=== PATIENT | male | born 1965 | race Caucasian/White ===

== ENCOUNTER 2025-01-29 23:25 | Emergency (ER) | payer MEDICARE, SELFPAY ==
[2025-01-29 23:30] VITALS: BP 186/107; PULSE 93; TEMP 36.8; O2SAT 98; BMI 22.2
[2025-01-29 23:32] VITALS: BP 186/107; O2SAT 98
--- NOTE | 2025-01-29 23:37 | ED_ITS ---
HPI HPI - General Adult General Chief complaint: Urogenital-Male Stated complaint: UTI,VOMMITING Time Seen by Provider: 01/29/25 23:31 Source: patient and family Mode of arrival: Wheelchair Limitations: no limitations History of Present Illness HPI narrative: 59-year-old male presents to the emergency department for possible UTI. He had been treated for a UTI about 10 days ago with Cipro and finished that antibiotic. He had some vomiting which is now resolved and now he states he is dribbling a bit. No fever or diarrhea. Related Data Home Medications ?Medication ?Instructions ?Recorded ?Confirmed No Known Home Medications 01/29/25 01/29/25 Allergies Allergy/AdvReac Type Severity Reaction Status Date / Time acetaminophen (From [place]) Allergy Unknown Verified 01/29/25 23:34 hydrocodone (From [place]) Allergy Unknown Verified 01/29/25 23:34 Opioid HPI Opioid Management Most Recent Opioid Data: Last Pain Scale 10 01/30/25 00:58 01/30/25 Last MAR Pain Assessment 01/30/25 00:58 Review of Systems ROS Narrative A ten point review of systems is negative except as noted above. PFSH PFSH Social History Little interest or pleasure in doing things: not at all Feeling down, depressed, or hopeless: not at all Exam Narrative Exam Narrative: Nurses note and vital signs reviewed and patient is not hypoxic. General: The patient appears well and in no apparent distress. Patient is resting comfortably on cart. Skin: Warm, dry, no pallor noted. There is no rash noted. Head: Normocephalic, atraumatic Eye: Normal conjunctiva, no drainage Ears, Nose, Mouth, and Throat: oral mucosa is slightly dry. Nares patent. Cardiovascular: Regular Rate and Rhythm, not tachycardic Respiratory: Patient is in no distress, no accessory muscle use, lungs are clear to auscultation, no wheezing, rales or rhonchi Back: non-tender GI: Soft and nontender Musculoskeletal: The patient has no evidence of calf tenderness, no pitting edema, symmetrical pulses noted bilaterally Neurological: A&O, normal speech Psychiatric: Cooperative Constitutional Vital Signs, click to edit/add: Last Vital Signs Temp 98.2 F 01/29/25 23:30 Pulse 93 H 01/29/25 23:30 Resp 16 01/29/25 23:30 BP 188/99 H 01/30/25 00:03 Pulse Ox 96 01/30/25 00:03 Course Vital Signs Vital signs: Vital Signs Temperature 98.2 F 01/29/25 23:30 Pulse Rate 93 H 01/29/25 23:30 Respiratory Rate 16 01/29/25 23:30 Blood Pressure 186/107 H 01/29/25 23:30 Pulse Oximetry 98 01/29/25 23:30 Temperature 98.2 F 01/29/25 23:30 Pulse Rate 93 H 01/29/25 23:30 Respiratory Rate 16 01/29/25 23:30 Blood Pressure 188/99 H 01/30/25 00:03 Pulse Oximetry 96 01/30/25 00:03 Medical Decision Making MDM Narrative Medical decision making narrative: The patient has a creatinine of over 15 and a potassium of 6.9. He was given IV fluids as well as D50 and insulin and Kayexalate. Hummel catheter was inserted and 1300 mL of urine was extracted. The possibility of obstructive state is entertained. CT scan of the abdomen is pending. Findings are discussed with the patient and his [id number]. They are requesting transfer to [facility] in [place]. I have spoken to Dr. Hubbard and Dr. France at [facility] and he is excepted by both of them. He is stable and agreeable for transfer. Differential Diagnosis Differential Diagnosis: UTI, acute kidney injury, hyperkalemia Lab Data Lab results reviewed: Yes I reviewed the patient's lab results Labs: Lab Results 01/29/25 01/30/25 Range/Units 23:40 00:30 WBC 9.2 (4.0-11.0) 10^3/uL RBC 3.21 L (4.70-6.10) 10^6/uL Hgb 8.2 L (14.0-18.0) g/dL Hct 25.0 L (42.0-54.0) % MCV 77.9 L (80.0-94.0) fL MCH 25.5 L (25.9-34.0) pg MCHC 32.8 (29.9-35.2) g/dL RDW 15.0 (11.0-15.0) % Plt Count 317 (150-450) 10^3/uL MPV 8.7 L (9.5-13.5) fL Neut % (Auto) 77.8 H (43.0-75.0) % Lymph % (Auto) 11.7 L (20.5-60.0) % [place] % (Auto) 5.5 (1.7-12.0) % Eos % (Auto) 3.6 (0.9-7.0) % Baso % (Auto) 1.2 (0.2-2.0) % Neut # (Auto) 7.2 H (1.4-6.5) 10^3/uL Lymph # (Auto) 1.1 L (1.2-3.8) 10^3/uL [place] # (Auto) 0.5 (0.3-0.8) 10^3/uL Eos # (Auto) 0.3 (0.0-0.7) 10^3/uL Baso # (Auto) 0.1 (0.0-0.1) 10^3/uL Abs Immat Gran (auto) 0.02 (0.00-0.03) 10^3/uL Imm/Tot Granulo (auto) 0.2 (0.0-0.5) % Sodium 135 L (136-145) mmol/L Potassium 6.9 H* (3.5-5.1) mmol/L Chloride 103 (98-107) mmol/L Carbon Dioxide 13.7 L (21.0-32.0) mmol/L Anion Gap 25.2 BUN 124.0 H* (7.0-18.0) mg/dL Creatinine 15.34 H* (0.70-1.30) mg/dL Est GFR ( Amer) 4 L (>=60 mL/min/1.73m^2) Est GFR (Non-Af Amer) 3 L (>=60 mL/min/1.73m^2) BUN/Creatinine Ratio 8.1 Glucose 125 H (74-106) mg/dL Calcium 8.1 L (8.5-10.1) mg/dL Urine Color Lt. yellow (YELLOW) Urine Clarity Clear (CLEAR) Urine pH 6.0 (5.0-9.0) Ur Specific [place] 1.010 (1.005-1.025) Urine Protein Trace (NEG/TRACE) mg/dL Urine Glucose (UA) Negative (NEGATIVE) mg/dL Urine Ketones Negative (NEGATIVE) mg/dL Urine Occult Blood Small A (NEGATIVE) Urine Nitrite Negative (NEGATIVE) Urine Bilirubin Negative (NEGATIVE) Urine Urobilinogen 0.2 (0.2-1.0) EU/dL Ur Leukocyte Esterase Small A (NEGATIVE) Urine RBC 0-2 (0-2) #/HPF Urine WBC 2-5 A (NONE SEEN) #/HPF Ur Squamous Epith Cells None seen (NONE/RARE) #/LPF Urine Crystals None seen (None Seen) #/HPF Urine Bacteria Trace A (NONE SEEN) #/HPF Urine Casts None seen (NONE SEEN) #/LPF Urine Mucus None seen (NONE SEEN) Ur Culture Indicated? No ECG Data Attestation: I personally reviewed and interpreted this ECG as follows: (EKG on my interpretation shows normal sinus rhythm with a rate of 89. The QRS is not widened and he does not have peaked T waves.) Critical Care Time Critical Care Time Critical Care Time: Yes Total Critical Care Time: 95 Attestation: Due to the high probability of sudden and clinically significant deterioration in the patient's condition he/she required the highest level of my preparedness to intervene urgently I provided critical care time including documentation time, medication orders and management, reevaluation, vital sign assessment, ordering and reviewing of lab tests, ordering and reviewing of x-ray studies, and admission orders. Aggregate critical care time is 95 minutes including only time during which I was engaged in work directly related to his/her care and did not include time spent treating other patients simultaneously. Discharge Plan Discharge Chief Complaint: Urogenital-Male Clinical Impression: Acute renal failure, Hyperkalemia Patient Disposition: [facility] Time of Disposition Decision: 00:49 Discharge Location: [facility] Condition: Critical Mode of Transportation: EMS
[2025-01-29 23:40] VITALS: O2SAT 98
[2025-01-29 23:49] LABS: Basophils Absolute Auto 0.1 10^3/uL (0.0-0.1); Basophils Percent Auto 1.2 % (0.2-2.0); Eosinophils Absolute Auto 0.3 10^3/uL (0.0-0.7); Eosinophils Percent Auto 3.6 % (0.9-7.0); Hemoglobin 8.2 g/dL (14.0-18.0); Immature Granulocytes Abs Auto 0.02 10^3/uL (0.00-0.03); Immature Granulocytes Pct Auto 0.2 % (0.0-0.5); Lymphocytes Absolute Auto 1.1 10^3/uL (1.2-3.8); Lymphocytes Percent Auto 11.7 % (20.5-60.0); Mean Corpuscular HGB Conc 32.8 g/dL (29.9-35.2); Mean Corpuscular Hemoglobin 25.5 pg (25.9-34.0); Mean Corpuscular Volume 77.9 fL (80.0-94.0); Mean Platelet Volume 8.7 fL (9.5-13.5); Monocytes Absolute Auto 0.5 10^3/uL (0.3-0.8); Monocytes Percent Auto 5.5 % (1.7-12.0); Neutrophils Absolute Auto 7.2 10^3/uL (1.4-6.5); Neutrophils Percent Auto 77.8 % (43.0-75.0); Platelet Count 317 10^3/uL (150-450); Red Blood Count 3.21 10^6/uL (4.70-6.10); White Blood Count 9.2 10^3/uL (4.0-11.0)
[2025-01-29 23:50] VITALS: O2SAT 96
[2025-01-29] MEDS: 0.9 % SODIUM CHLORIDE 1,000 ML 1000 ML IV (23:54)
[2025-01-30] VITALS (17 sets, daily range): BP systolic 184–212; BP diastolic 99–120; PULSE 88–96; TEMP 36.7; O2SAT 84–98
[2025-01-30 00:02] LABS: Anion Gap 25.2; BUN Creatinine Ratio 8.1; Calcium 8.1 mg/dL (8.5-10.1); Carbon Dioxide 13.7 mmol/L (21.0-32.0); Chloride 103 mmol/L (98-107); Estimated GFR (African America 4 (>=60 mL/min/1.73m^2); Estimated GFR (Non-African Ame 3 (>=60 mL/min/1.73m^2); Glucose 125 mg/dL (74-106); Sodium 135 mmol/L (136-145)
[2025-01-30 00:04] LABS: Potassium 6.9 mmol/L (3.5-5.1)
--- NOTE | 2025-01-30 00:15 | ECG_ITS ---
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 Measurements Intervals [place] Rate: 89 P: 60 ID: [id number] QRS: 53 QRSD: 92 T: 73 QT: 354 QTc: 401 Interpretive Statements 1100 Sinus rhythm 9110 normal ECG Compared to ECG 01/23/2023 19:17:35 Sinus tachycardia no longer present Electronically Signed On 01-30-2025 19:08:35 EDT by TIM ANGULO M.D.
[2025-01-30] MEDS: DEXTROSE 50 %-WATER 25 GM/50 ML SYRINGE IV (00:45)
[2025-01-30] MEDS: INSULIN REGULAR, HUMAN (100 UNIT/ML) 10 ML MDV 10 UNIT IV (00:45)
[2025-01-30 00:47] LABS: Bilirubin Urine NEGATIVE (NEGATIVE); Blood Urine SMALL (NEGATIVE); Clarity Urine CLEAR (CLEAR); Color Urine LT. YELLOW (YELLOW); Glucose Urine UA NEGATIVE (NEGATIVE); Ketones Urine NEGATIVE (NEGATIVE); Leukocyte Esterase Urine SMALL (NEGATIVE); Nitrite Urine NEGATIVE (NEGATIVE); Protein Urine TRACE mg/dL (NEG/TRACE); Urobilinogen Urine 0.2 EU/dL (0.2-1.0)
[2025-01-30] MEDS: SODIUM POLYSTYRENE SULFON 15 GM/60 ML ORAL.SUSP KAYEXALATE 30 GM PO (00:49)
[2025-01-30 00:53] LABS: Bacteria Urine TRACE #/HPF (NONE SEEN); Cast Seen? NONE SEEN #/LPF (NONE SEEN); Crystals Seen? None Seen #/HPF (None Seen); Mucus Urine NONE SEEN (NONE SEEN); RBC Urine 0-2 #/HPF (0-2); Squamous Epithelial Cell Urine NONE SEEN #/LPF (NONE/RARE); Urine Culture Indicated NO
[2025-01-30] MEDS: MORPHINE SULFATE 4 MG/ML VIAL IV ×2 (00:58→01:54)
[2025-01-30] MEDS: 0.9 % SODIUM CHLORIDE 1,000 ML 200 ML IV (01:21)
--- NOTE | 2025-01-30 02:26 | PC.NURSE ---
[employer] crew and i gave patient report and this patient's paper work to them. this patient's daughter in law forgot to take this patient's shoes. i placed these shoe in a bag and gave them to the ems crew. the daughter in law too all other patient clothing and items with her
[2025-01-30] MEDS: HYDROMORPHONE HCL 1 MG/ML CARTRIDGE IV (02:38)
--- NOTE | 2025-01-30 02:39 | PC.NURSE ---
I called [facility] [phone] and spoke with Libia CHERY and I gave her patient report( patient will be going to room 3011.
== END 2025-01-30 02:41 | disposition short-term general hospital (02) ==
PROVIDERS: Emergency Provider Emergency Medicine
DX: N17.9 Acute kidney failure, unspecified (principal); E87.5 Hyperkalemia; N13.2 Hydronephrosis with renal and ureteral calculous obstruction; Z87.440 Personal history of urinary (tract) infections
CPT/HCPCS: 36415; 74176; 80048; 81001; 85025; 93005; 96361; 96374; 96375; 96376; 99285; J1171; J1817; J2270

== ENCOUNTER 2025-04-05 12:23 | Emergency (ER) | payer MEDICARE, SELFPAY ==
--- OUTSIDE RECORDS SUMMARY | 2025-01-30 04:04 | XMS_ITS ---
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 Role Phone NAINA PUCKETT Referring Unavailable FRAN LEIGH Admitting Unavailable RICO JARRELL Consulting Unavailable OSCAR MCDONOUGH Attending Unavailable EVELINA DAVILA Primary Care Unavailable PROBLEMS DATE TYPE CONDITION / CODE [facility] Admitting diagnosis Acute kidney failure, unspecified / N17.9(ICD-10) OSCAR MCDONOUGH Active [facility] PROCEDURES No Procedure Records Found RESULTS IR ANTEGRADE PYELOGRAM Observed: 025 9:21 AM Status: F Source: [facility] PROCEDURE: RIGHT NEPHROSTOGRAM WITH NEPHROSTOMY TUBE REMOVAL 02/05/2025 HISTORY: ORDERING SYSTEM PROVIDED HISTORY: Rt nephrostogram w/removal of nephrostomy catheter TECHNOLOGIST PROVIDED HISTORY: Rt nephrostogram w/removal of nephrostomy catheter TECHNIQUE: RIGHT NEPHROSTOGRAM WITH NEPHROSTOMY TUBE REMOVAL CONTRAST: Omnipaque 240 SEDATION: None FLUOROSCOPY DOSE AND TYPE: Radiation Exposure Index: DAP cGy*cm2, 403.94 DESCRIPTION OF PROCEDURE AND FINDINGS: Informed consent was obtained after a detailed explanation of the procedure including risks, benefits, and alternatives. [place] protocol was observed. Sterile gowns, masks, hats and gloves utilized for maximal sterile barrier. Tip Length Checker view shows a right nephrostomy tube in place as well as a right ureteral stent. Nephrostomy tube site was prepped and draped in standard sterile fashion. The right nephrostomy was injected under fluoroscopy and opacifies the collecting system and ureter. Contrast flows into the bladder. The ureteral stent appears patent. The nephrostomy tube was then cut and removed over a guidewire uneventfully. Sterile gauze dressing was applied. There are no immediate complications. The patient left the department in stable condition. EBL: Minimal IMPRESSION: Right nephrostogram shows a patent right ureteral stent. Nephrostomy tube was removed uneventfully. Interpreted by: Esau Egan MD Signed by: Esau Egan MD 02/06/25 Final result GLUCOSE,WHOLE BLOOD Collected: 02/07/20 8:02 AM Status: F Source: [facility] TYPE CODE TESTS RESULT OUT OF RANGE REFERENCE UNITS LAB FGLU(LOINC) Glucose,Whol e Blood 88 75-110 mg/dL BASIC METABOLIC PROF Collected: 02/06/2025 6:53 AM S tatus: F Source: [facility] TYPE CODE TESTS RESULT OUT OF RANGE REFERENCE UNITS LAB NA(LOINC) NA (Sodium) 136 136-145 mmol/L LAB K(LOINC) K (Potassium) 5.0 3.7-5.3 mmol/L LAB CL(LOINC) Chloride 106 98-107 mmol/L LAB HCO(LOINC) CO2 20 20-31 mmol/L LAB GAP(LOINC) Anion Gap 10 9-16 mmol/L LAB GLU(LOINC) Glucose 99 74-99 mg/dL LAB BUN(LOINC) BUN (Urea N) 31 High 8-23 mg/dL LAB CRE(LOINC) Creatinine 1.8 High 0.7-1.2 mg/dL LAB EGFR(LOINC) eGFR 42 Low >60 mL/min/1. 73m2 Result Comment: These results are not intended for use in patients <18 years of age. eGFR results are calculated without a race factor using the 2020 CKD-EPI equation. Careful clinical correlation is recommended, particularly when comparing to results calculated using previous equations. The CKD-EPI equation is less accurate in patients with extremes of muscle mass, extra-renal metabolism of creatine, excessive creatine ingestion, or following therapy that affects renal tubular secretion. LAB CA(LOINC) Calcium 8.4 Low 8.6-10.4 mg/dL Performed By: #### BMP #### [employer] [address] [place] [address] Biomedical Engineer: Collin Augustin MD GLUCOSE,WHOLE BLOOD Collected: 02/06/20 8:04 PM Status: F Source: [facility] TYPE CODE TESTS RESULT OUT OF RANGE REFERENCE UNITS LAB FGLU(LOINC) Glucose,Whol e Blood 106 75-110 mg/dL IR GUIDED NEPHROSTOMY CATH PLACEMENT RIGHT Observed: 02/05/2025 6:26 PM Status: F Source: [facility] PROCEDURE: PERCUTANEOUS ANTEGRADE PYELOGRAM RIGHT PERCUTANEOUS NEPHROSTOMY TUBE PLACEMENT WITH ANTEGRADE URETERAL STENT PLACEMENT ULTRASOUND GUIDANCE 02/04/2025 HISTORY: ORDERING SYSTEM PROVIDED HISTORY: Right nephrostomy tube placement, obstructing stone. TECHNOLOGIST PROVIDED HISTORY: Right nephrostomy tube placement, obstructing stone. Please place ureteral stent if possible. SEDATION: None CONTRAST: Omnipaque 240 FLUOROSCOPY DOSE AND TYPE OR TIME AND EXPOSURES: 6 minutes; DAP 1004 cGy cm2 TECHNIQUE AND FINDINGS Informed consent was obtained following detailed description of the procedure including risks, benefits, and alternatives. [place] protocol was followed. Patient is on intravenous antibiotics. The patient's back right flank was prepped and draped in sterile fashion and local anesthesia was achieved with lidocaine. An Accustick needle was advanced into a posterior lower pole calyx using ultrasound and fluoroscopic guidance. Urine was aspirated and a small amount of contrast injected opacifying a dilated collecting system and visualized ureter. 018 guidewire was advanced through the needle. Mini access kit transitional dilator was placed over the guidewire. Through the outer 6 Israeli cannula an angled catheter and Glidewire were advanced and negotiated into the ureter. Guidewire and catheter were directed into the bladder. Small amount of contrast injected verifying catheter tip in the bladder. There is a Hummel catheter in place. An Amplatz guidewire was placed through the catheter. An 8 Israeli by 24 cm double-J ureteral stent was deployed with the distal loop formed in the bladder. The proximal loop was formed in the renal pelvis. Small amount of contrast injected verifying appropriate catheter positioning and patency. An 8 Israeli nephrostomy tube was placed over the guidewire and left in place for access. As internal drainage was established the tube was capped externally. The catheter was sutured to the skin and secured in place with a sterile gauze dressing. The patient will be scheduled for a nephrostogram with possible nephrostomy tube removal. There are no immediate complications. The patient left the department in stable condition. EBL: Less than 5 mL. IMPRESSION: Successful percutaneous right nephrostomy tube placement. Successful antegrade right ureteral stent placement; 8 Israeli by 24 cm double-J stent was deployed. Interpreted by: Esau Egan MD Signed by: sEau Egan MD 02/05/25 Final result HGB/HCT Collected: 5:42 PM Status: F Source: [facility] TYPE CODE TESTS RESULT OUT OF RANGE REFERENCE UNITS LAB HGB(LOINC) Hemoglobin 8.2 Low 13.0-17.0 g/dL LAB HCT(LOINC) Hematocrit 27.9 Low 40.7-50.3 % Performed By: #### #### [facility] [employer] [address] [place], [place] [phone] Biomedical Engineer: Collin Augustin MD GLUCOSE,WHOLE BLOOD Collected: 02/06/20 3:55 PM Status: F Source: [facility] TYPE CODE TESTS RESULT OUT OF RANGE REFERENCE UNITS LAB FGLU(LOINC) Glucose,Whol e Blood 107 75-110 mg/dL BASIC METABOLIC PROF Collected: 02/05/2025 3:39 PM S tatus: F Source: [facility] TYPE CODE TESTS RESULT OUT OF RANGE REFERENCE UNITS LAB NA(LOINC) NA (Sodium) 135 Low 136-145 mmol/L LAB K(LOINC) K (Potassium) 4.8 3.7-5.3 mmol/L LAB CL(LOINC) Chloride 106 98-107 mmol/L LAB HCO(LOINC) CO2 18 Low 20-31 mmol/L LAB GAP(LOINC) Anion Gap 11 9-16 mmol/L LAB GLU(LOINC) Glucose 107 High 74-99 mg/dL LAB BUN(LOINC) BUN (Urea N) 34 High 8-23 mg/dL LAB CRE(LOINC) Creatinine 1.9 High 0.7-1.2 mg/dL LAB EGFR(LOINC) eGFR 40 Low >60 mL/min/1. 73m2 Result Comment: These results are not intended for use in patients <18 years of age. eGFR results are calculated without a race factor using the 2020 CKD-EPI equation. Careful clinical correlation is recommended, particularly when comparing to results calculated using previous equations. The CKD-EPI equation is less accurate in patients with extremes of muscle mass, extra-renal metabolism of creatine, excessive creatine ingestion, or following therapy that affects renal tubular secretion. LAB CA(LOINC) Calcium 8.3 Low 8.6-10.4 mg/dL Performed By: #### BMP #### [facility] [address] [place] [id number] Biomedical Engineer: Collin Augustin MD GLUCOSE,WHOLE BLOOD Collected: 02/06/20 7:33 AM Status: F Source: [facility] TYPE CODE TESTS RESULT OUT OF RANGE REFERENCE UNITS LAB FGLU(LOINC) Glucose,Whol e Blood 97 75-110 mg/dL HGB/HCT Collected: 6:30 AM Status: F Source: [facility] TYPE CODE TESTS RESULT OUT OF RANGE REFERENCE UNITS LAB HGB(LOINC) Hemoglobin 9.1 Low 13.0-17.0 g/dL LAB HCT(LOINC) Hematocrit 30.7 Low 40.7-50.3 % Performed By: #### HH #### [facility] [address] [place] [phone] Biomedical Engineer: Collin Augustin MD HGB/HCT Collected: 10:05 PM Status: F Source: [facility] TYPE CODE TESTS RESULT OUT OF RANGE REFERENCE UNITS LAB HGB(LOINC) Hemoglobin 8.7 Low 13.0-17.0 g/dL LAB HCT(LOINC) Hematocrit 28.2 Low 40.7-50.3 % Performed By: #### HH #### [facility] [address] [place] [phone] Biomedical Engineer: Collin Augustin MD GLUCOSE,WHOLE BLOOD Collected: 02/05/20 8:36 PM Status: F Source: [facility] TYPE CODE TESTS RESULT OUT OF RANGE REFERENCE UNITS LAB FGLU(LOINC) Glucose,Whol e Blood 127 High 75-110 mg/dL GLUCOSE,WHOLE BLOOD Collected: 02/05/20 4:30 PM Status: F Source: [facility] TYPE CODE TESTS RESULT OUT OF RANGE REFERENCE UNITS LAB FGLU(LOINC) Glucose,Whol e Blood 91 75-110 mg/dL PT Collected: 02/04/2025 9:06 AM Status: F Source: [facility] TYPE CODE TESTS RESULT OUT OF RANGE REFERENCE UNITS LAB PTR(LOINC) Prothrombin Time 13.3 11.7-14.9 se c LAB INR(LOINC) INR 1.0 Result Comment: Therapeutic Range: Moderate Anticoagulant Intensity: INR = 2.0-3.0 High Anticoagulant Intensity: INR = 2.5-3.5 Performed By: #### PT #### [employer] [facility] [place] [address] Biomedical Engineer: Collin Augustin MD GLUCOSE,WHOLE BLOOD Collected: 02/05/20 7:54 AM Status: F Source: [facility] TYPE CODE TESTS RESULT OUT OF RANGE REFERENCE UNITS LAB FGLU(LOINC) Glucose,Whol e Blood 118 High 75-110 mg/dL CBC WITH DIFF Collected: 6:48 AM Status: F Source: [facility] TYPE CODE TESTS RESULT OUT OF RANGE REFERENCE UNITS LAB WBC(LOINC) WBC Count 8.1 3.5-11.3 k/uL LAB RBC(LOINC) RBC Count 3.66 Low 4.21-5.77 m/uL LAB HGB(LOINC) Hemoglobin 8.8 Low 13.0-17.0 g/dL LAB HCT(LOINC) Hematocrit 29.4 Low 40.7-50.3 % LAB MCV(LOINC) MCV 80.3 Low 82.6-102.9 fL LAB MCH(LOINC) MCH 24.0 Low 25.2-33.5 pg LAB MCHC(LOINC) MCHC 29.9 28.4-34.8 g/dL LAB RDW(LOINC) RDW 14.6 High 11.8-14.4 % LAB PLT(LOINC) Platelet Count 297 138-453 k/uL LAB MPVX(LOINC) MPV 9.6 8.1-13.5 fL LAB NRBCS(LOINC) NRBC Automated 0.0 0.0 per 100 WBC LAB SEG(LOINC) Neutrophil (Seg) 59 36-65 % LAB LYM(LOINC) Lymphocyte 22 Low 24-43 % LAB MON(LOINC) Monocyte 7 3-12 % LAB EO(LOINC) Eosinophil 9 High 1-4 % LAB BASO(LOINC) Basophil 2 0-2 % LAB IGRAN(LOINC) Immature Granulocyte 1 High 0 % LAB ASEG(LOINC) Abs.Neutrophil (Seg) 4.81 1.50-8.10 k/uL LAB ALYM(LOINC) Abs. Lymph 1.82 1.10-3.70 k/uL LAB AMONO(LOINC) Abs. Monocyte 0.57 0.10-1.20 k/u L LAB AEO(LOINC) Abs. Eosinophil 0.76 High 0.00-0.44 k/uL LAB ABASO(LOINC) Abs. Basophil 0.14 0.00-0.20 k/u L LAB AIGRAN(LOINC) Abs.Imm.Granul ocyte 0.04 0.00-0.30 k/uL LAB RCOM(LOINC) RBC Morphology ANISOCYTOSIS PRESENT Result Comment: MICROCYTOSIS PRESENT Performed By: #### BMPX, CDP , MG #### [facility] [place], [place] [phone] Biomedical Engineer: Collin Augustin MD BASIC METAB W/RFX MG Collected: 02/04/2025 6:48 AM S tatus: F Source: [facility] TYPE CODE TESTS RESULT OUT OF RANGE REFERENCE UNITS LAB NA(LOINC) NA (Sodium) 138 136-145 mmol/L LAB K(LOINC) K (Potassium) 4.5 3.7-5.3 mmol/L LAB CL(LOINC) Chloride 107 98-107 mmol/L LAB HCO(LOINC) CO2 18 Low 20-31 mmol/L LAB GAP(LOINC) Anion Gap 13 9-16 mmol/L LAB GLU(LOINC) Glucose 100 High 74-99 mg/dL LAB BUN(LOINC) BUN (Urea N) 29 High 8-23 mg/dL LAB CRE(LOINC) Creatinine 2.1 High 0.7-1.2 mg/dL LAB EGFR(LOINC) eGFR 35 Low >60 mL/min/1. 73m2 Result Comment: These results are not intended for use in patients <18 years of age. eGFR results are calculated without a race factor using the 2020 CKD-EPI equation. Careful clinical correlation is recommended, particularly when comparing to results calculated using previous equations. The CKD-EPI equation is less accurate in patients with extremes of muscle mass, extra-renal metabolism of creatine, excessive creatine ingestion, or following therapy that affects renal tubular secretion. LAB CA(LOINC) Calcium 8.8 8.6-10.4 mg/dL Performed By: #### BMPX, CDP , MG #### [employer] [address] [place], [place] [phone] Biomedical Engineer: Collin Augustin MD MAGNESIUM Collected: 6:48 AM Status: F Source: [facility] TYPE CODE TESTS RESULT OUT OF RANGE REFERENCE UNITS LAB MG(LOINC) Magnesium 1.8 1.6-2.4 mg/dL Performed By: #### BMPX, CDP , MG #### [employer] [address] [place] [address] Biomedical Engineer: Collin Augustin MD GLUCOSE,WHOLE BLOOD Collected: 02/04/20 4:16 PM Status: F Source: [facility] TYPE CODE TESTS RESULT OUT OF RANGE REFERENCE UNITS LAB FGLU(LOINC) Glucose,Whol e Blood 111 High 75-110 mg/dL GLUCOSE,WHOLE BLOOD Collected: 02/04/20 10:58 AM Status: F Source: [facility] TYPE CODE TESTS RESULT OUT OF RANGE REFERENCE UNITS LAB FGLU(LOINC) Glucose,Whol e Blood 110 75-110 mg/dL BASIC METAB W/RFX MG Collected: 02/03/2025 6:45 AM S tatus: F Source: [facility] TYPE CODE TESTS RESULT OUT OF RANGE REFERENCE UNITS LAB NA(LOINC) NA (Sodium) 136 136-145 mmol/L LAB K(LOINC) K (Potassium) 4.4 3.7-5.3 mmol/L Result Comment: Specimen hem olysis has exceeded the interference as defined by Hoa. Value may be falsely increased. Suggest recollection if clinically indicated. LAB CL(LOINC) Chloride 106 98-107 mmol/L LAB HCO(LOINC) CO2 18 Low 20-31 mmol/L LAB GAP(LOINC) Anion Gap 12 9-16 mmol/L LAB GLU(LOINC) Glucose 98 74-99 mg/dL LAB BUN(LOINC) BUN (Urea N) 27 High 8-23 mg/dL LAB CRE(LOINC) Creatinine 2.5 High 0.7-1.2 mg/dL LAB EGFR(LOINC) eGFR 29 Low >60 mL/min/1. 73m2 Result Comment: These results are not intended for use in patients <18 years of age. eGFR results are calculated without a race factor using the 2020 CKD-EPI equation. Careful clinical correlation is recommended, particularly when comparing to results calculated using previous equations. The CKD-EPI equation is less accurate in patients with extremes of muscle mass, extra-renal metabolism of creatine, excessive creatine ingestion, or following therapy that affects renal tubular secretion. LAB CA(LOINC) Calcium 8.5 Low 8.6-10.4 mg/dL Performed By: #### BMPX, CDP , MG #### [employer] [address] [place] [phone] Biomedical Engineer: Collin Augustin MD MAGNESIUM Collected: 5 6:45 AM Status: F Source: [facility] TYPE CODE TESTS RESULT OUT OF RANGE REFERENCE UNITS LAB MG(LOINC) Magnesium 2.0 1.6-2.4 mg/dL Performed By: #### BMPX, CDP , MG #### [employer] [address] [place] [address] [phone] Biomedical Engineer: Collin Augustin MD CBC WITH DIFF Collected: 5 6:45 AM Status: F Source: [facility] TYPE CODE TESTS RESULT OUT OF RANGE REFERENCE UNITS LAB WBC(LOINC) WBC Count 8.2 3.5-11.3 k/uL LAB RBC(LOINC) RBC Count 3.55 Low 4.21-5.77 m/uL LAB HGB(LOINC) Hemoglobin 8.8 Low 13.0-17.0 g/dL LAB HCT(LOINC) Hematocrit 28.5 Low 40.7-50.3 % LAB MCV(LOINC) MCV 80.3 Low 82.6-102.9 fL LAB MCH(LOINC) MCH 24.8 Low 25.2-33.5 pg LAB MCHC(LOINC) MCHC 30.9 28.4-34.8 g/dL LAB RDW(LOINC) RDW 14.7 High 11.8-14.4 % LAB PLT(LOINC) Platelet Count 275 138-453 k/uL LAB MPVX(LOINC) MPV 9.6 8.1-13.5 fL LAB NRBCS(LOINC) NRBC Automated 0.0 0.0 per 100 WBC LAB SEG(LOINC) Neutrophil (Seg) 62 36-65 % LAB LYM(LOINC) Lymphocyte 18 Low 24-43 % LAB MON(LOINC) Monocyte 9 3-12 % LAB EO(LOINC) Eosinophil 9 High 1-4 % LAB BASO(LOINC) Basophil 2 0-2 % LAB IGRAN(LOINC) Immature Granulocyte 0 0 % LAB ASEG(LOINC) Abs.Neutrophil (Seg) 5.08 1.50-8.10 k/uL LAB ALYM(LOINC) Abs. Lymph 1.47 1.10-3.70 k/uL LAB AMONO(LOINC) Abs. Monocyte 0.72 0.10-1.20 k/u L LAB AEO(LOINC) Abs. Eosinophil 0.70 High 0.00-0.44 k/uL LAB ABASO(LOINC) Abs. Basophil 0.15 0.00-0.20 k/u L LAB AIGRAN(LOINC) Abs.Imm.Granul ocyte 0.03 0.00-0.30 k/uL LAB RCOM(LOINC) RBC Morphology ANISOCYTOSIS PRESENT Result Comment: MICROCYTOSIS PRESENT Performed By: #### BMPX, CDP , MG #### [facility] [employer] [address] [place] [id number] Biomedical Engineer: Collin Augustin MD GLUCOSE,WHOLE BLOOD Collected: 02/03/20 7:16 PM Status: F Source: [facility] TYPE CODE TESTS RESULT OUT OF RANGE REFERENCE UNITS LAB FGLU(LOINC) Glucose,Whol e Blood 128 High 75-110 mg/dL GLUCOSE,WHOLE BLOOD Collected: 02/03/20 4:24 PM Status: F Source: [facility] TYPE CODE TESTS RESULT OUT OF RANGE REFERENCE UNITS LAB FGLU(LOINC) Glucose,Whol e Blood 131 High 75-110 mg/dL GLUCOSE,WHOLE BLOOD Collected: 02/03/20 11:24 AM Status: F Source: [facility] TYPE CODE TESTS RESULT OUT OF RANGE REFERENCE UNITS LAB FGLU(LOINC) Glucose,Whol e Blood 122 High 75-110 mg/dL GLUCOSE,WHOLE BLOOD Collected: 02/03/20 7:19 AM Status: F Source: [facility] TYPE CODE TESTS RESULT OUT OF RANGE REFERENCE UNITS LAB FGLU(LOINC) Glucose,Whol e Blood 111 High 75-110 mg/dL CBC WITH DIFF Collected: 5 6:00 AM Status: F Source: [facility] TYPE CODE TESTS RESULT OUT OF RANGE REFERENCE UNITS LAB WBC(LOINC) WBC Count 9.6 3.5-11.3 k/uL LAB RBC(LOINC) RBC Count 3.48 Low 4.21-5.77 m/uL LAB HGB(LOINC) Hemoglobin 8.5 Low 13.0-17.0 g/dL LAB HCT(LOINC) Hematocrit 27.5 Low 40.7-50.3 % LAB MCV(LOINC) MCV 79.0 Low 82.6-102.9 fL LAB MCH(LOINC) MCH 24.4 Low 25.2-33.5 pg LAB MCHC(LOINC) MCHC 30.9 28.4-34.8 g/dL LAB RDW(LOINC) RDW 15.0 High 11.8-14.4 % LAB PLT(LOINC) Platelet Count 283 138-453 k/uL LAB MPVX(LOINC) MPV 9.6 8.1-13.5 fL LAB NRBCS(LOINC) NRBC Automated 0.0 0.0 per 100 WBC LAB SEG(LOINC) Neutrophil (Seg) 71 High 36-65 % LAB LYM(LOINC) Lymphocyte 12 Low 24-43 % LAB MON(LOINC) Monocyte 8 3-12 % LAB EO(LOINC) Eosinophil 7 High 1-4 % LAB BASO(LOINC) Basophil 2 0-2 % LAB IGRAN(LOINC) Immature Granulocyte 0 0 % LAB ASEG(LOINC) Abs.Neutrophil (Seg) 6.87 1.50-8.10 k/uL LAB ALYM(LOINC) Abs. Lymph 1.16 1.10-3.70 k/uL LAB AMONO(LOINC) Abs. Monocyte 0.72 0.10-1.20 k/u L LAB AEO(LOINC) Abs. Eosinophil 0.67 High 0.00-0.44 k/uL LAB ABASO(LOINC) Abs. Basophil 0.17 0.00-0.20 k/u L LAB AIGRAN(LOINC) Abs.Imm.Granul ocyte 0.04 0.00-0.30 k/uL LAB RCOM(LOINC) RBC Morphology ANISOCYTOSIS PRESENT Result Comment: MICROCYTOSIS PRESENT Performed By: #### BMPX, CDP , MG #### [employer] [address] [place], [place] [phone] Biomedical Engineer: Collin Augustin MD BASIC METAB W/RFX MG Collected: 02/02/2025 6:00 AM S tatus: F Source: [facility] TYPE CODE TESTS RESULT OUT OF RANGE REFERENCE UNITS LAB NA(LOINC) NA (Sodium) 139 136-145 mmol/L LAB K(LOINC) K (Potassium) 4.1 3.7-5.3 mmol/L LAB CL(LOINC) Chloride 105 98-107 mmol/L LAB HCO(LOINC) CO2 21 20-31 mmol/L LAB GAP(LOINC) Anion Gap 13 9-16 mmol/L LAB GLU(LOINC) Glucose 111 High 74-99 mg/dL LAB BUN(LOINC) BUN (Urea N) 30 High 8-23 mg/dL LAB CRE(LOINC) Creatinine 3.2 High 0.7-1.2 mg/dL LAB EGFR(LOINC) eGFR 21 Low >60 mL/min/1. 73m2 Result Comment: These results are not intended for use in patients <18 years of age. eGFR results are calculated without a race factor using the 2020 CKD-EPI equation. Careful clinical correlation is recommended, particularly when comparing to results calculated using previous equations. The CKD-EPI equation is less accurate in patients with extremes of muscle mass, extra-renal metabolism of creatine, excessive creatine ingestion, or following therapy that affects renal tubular secretion. LAB CA(LOINC) Calcium 7.9 Low 8.6-10.4 mg/dL Performed By: #### BMPX, CDP , MG #### [employer] [address] [place] [phone] Biomedical Engineer: Collin Augustin MD MAGNESIUM Collected: 6:00 AM Status: F Source: [facility] TYPE CODE TESTS RESULT OUT OF RANGE REFERENCE UNITS LAB MG(LOINC) Magnesium 1.5 Low 1.6-2.4 mg/dL Performed By: #### BMPX, CDP , MG #### [facility] [address] [place] [address] [phone] Biomedical Engineer: Collin Augustin MD GLUCOSE,WHOLE BLOOD Collected: 02/02/20 7:19 PM Status: F Source: [facility] TYPE CODE TESTS RESULT OUT OF RANGE REFERENCE UNITS LAB FGLU(LOINC) Glucose,Whol e Blood 213 High 75-110 mg/dL GLUCOSE,WHOLE BLOOD Collected: 02/02/20 4:21 PM Status: F Source: [facility] TYPE CODE TESTS RESULT OUT OF RANGE REFERENCE UNITS LAB FGLU(LOINC) Glucose,Whol e Blood 90 75-110 mg/dL PT Collected: 02/01/2025 3:51 PM Status: F Source: [facility] TYPE CODE TESTS RESULT OUT OF RANGE REFERENCE UNITS LAB PTR(LOINC) Prothrombin Time 14.4 11.7-14.9 se c LAB INR(LOINC) INR 1.1 Result Comment: Therapeutic Range: Moderate Anticoagulant Intensity: INR = 2.0-3.0 High Anticoagulant Intensity: INR = 2.5-3.5 Performed By: #### PT, PTT # ### [facility] [address] [place] [address] [phone] Biomedical Engineer: Collin Augustin MD APTT Collected: 3:51 PM Status: F Source: [facility] TYPE CODE TESTS RESULT OUT OF RANGE REFERENCE UNITS LAB PTTR(LOINC) PTT 30.2 23.0-36.5 sec Result Comment: IV Heparin Therapy Range: 66.0-92.0 sec Performed By: #### PT, PTT # ### [employer] [address] [place] [address] [phone] Biomedical Engineer: Collin Augustin MD FLUORO FOR SURGICAL PROCEDURES Observed: 02/01/2025 1:30 PM Status: F Source: [facility] Radiology exam is complete. No Radiologist dictation. Please follow up with ordering provider. Final result GLUCOSE,WHOLE BLOOD Collected: 02/02/20 11:05 AM Status: F Source: [facility] TYPE CODE TESTS RESULT OUT OF RANGE REFERENCE UNITS LAB FGLU(LOINC) Glucose,Whol e Blood 107 75-110 mg/dL CBC WITH DIFF Collected: 9:18 AM Status: F Source: [facility] TYPE CODE TESTS RESULT OUT OF RANGE REFERENCE UNITS LAB WBC(LOINC) WBC Count 10.6 3.5-11.3 k/uL LAB RBC(LOINC) RBC Count 3.59 Low 4.21-5.77 m/uL LAB HGB(LOINC) Hemoglobin 8.8 Low 13.0-17.0 g/dL LAB HCT(LOINC) Hematocrit 28.5 Low 40.7-50.3 % LAB MCV(LOINC) MCV 79.4 Low 82.6-102.9 fL LAB MCH(LOINC) MCH 24.5 Low 25.2-33.5 pg LAB MCHC(LOINC) MCHC 30.9 28.4-34.8 g/dL LAB RDW(LOINC) RDW 15.1 High 11.8-14.4 % LAB PLT(LOINC) Platelet Count 319 138-453 k/uL LAB MPVX(LOINC) MPV 9.3 8.1-13.5 fL LAB NRBCS(LOINC) NRBC Automated 0.0 0.0 per 100 WBC LAB SEG(LOINC) Neutrophil (Seg) 69 High 36-65 % LAB LYM(LOINC) Lymphocyte 16 Low 24-43 % LAB MON(LOINC) Monocyte 7 3-12 % LAB EO(LOINC) Eosinophil 7 High 1-4 % LAB BASO(LOINC) Basophil 1 0-2 % LAB IGRAN(LOINC) Immature Granulocyte 0 0 % LAB ASEG(LOINC) Abs.Neutrophil (Seg) 7.25 1.50-8.10 k/uL LAB ALYM(LOINC) Abs. Lymph 1.71 1.10-3.70 k/uL LAB AMONO(LOINC) Abs. Monocyte 0.70 0.10-1.20 k/u L LAB AEO(LOINC) Abs. Eosinophil 0.72 High 0.00-0.44 k/uL LAB ABASO(LOINC) Abs. Basophil 0.14 0.00-0.20 k/u L LAB AIGRAN(LOINC) Abs.Imm.Granul ocyte 0.04 0.00-0.30 k/uL LAB RCOM(LOINC) RBC Morphology ANISOCYTOSIS PRESENT Result Comment: MICROCYTOSIS PRESENT Performed By: #### MARIELOS, BMPX #### [employer] [address] [place], [place] [phone] Biomedical Engineer: Collin Augustin MD BASIC METAB W/RFX MG Collected: 02/01/2025 9:18 AM S tatus: F Source: [facility] TYPE CODE TESTS RESULT OUT OF RANGE REFERENCE UNITS LAB NA(LOINC) NA (Sodium) 140 136-145 mmol/L LAB K(LOINC) K (Potassium) 4.0 3.7-5.3 mmol/L LAB CL(LOINC) Chloride 107 98-107 mmol/L LAB HCO(LOINC) CO2 21 20-31 mmol/L LAB GAP(LOINC) Anion Gap 12 9-16 mmol/L LAB GLU(LOINC) Glucose 108 High 74-99 mg/dL LAB BUN(LOINC) BUN (Urea N) 36 High 8-23 mg/dL LAB CRE(LOINC) Creatinine 4.1 High 0.7-1.2 mg/dL LAB EGFR(LOINC) eGFR 16 Low >60 mL/min/1. 73m2 Result Comment: These results are not intended for use in patients <18 years of age. eGFR results are calculated without a race factor using the 2020 CKD-EPI equation. Careful clinical correlation is recommended, particularly when comparing to results calculated using previous equations. The CKD-EPI equation is less accurate in patients with extremes of muscle mass, extra-renal metabolism of creatine, excessive creatine ingestion, or following therapy that affects renal tubular secretion. LAB CA(LOINC) Calcium 8.0 Low 8.6-10.4 mg/dL Performed By: #### CDP, BMPX #### [employer] [address] [place] [address] Biomedical Engineer: Collin Augustin MD GLUCOSE,WHOLE BLOOD Collected: 02/02/20 7:20 AM Status: F Source: [facility] TYPE CODE TESTS RESULT OUT OF RANGE REFERENCE UNITS LAB FGLU(LOINC) Glucose,Whol e Blood 120 High 75-110 mg/dL GLUCOSE,WHOLE BLOOD Collected: 02/01/20 7:38 PM Status: F Source: [facility] TYPE CODE TESTS RESULT OUT OF RANGE REFERENCE UNITS LAB FGLU(LOINC) Glucose,Whol e Blood 165 High 75-110 mg/dL GLUCOSE,WHOLE BLOOD Collected: 02/01/20 5:53 PM Status: F Source: [facility] TYPE CODE TESTS RESULT OUT OF RANGE REFERENCE UNITS LAB FGLU(LOINC) Glucose,Whol e Blood 131 High 75-110 mg/dL GLUCOSE,WHOLE BLOOD Collected: 02/01/20 12:12 PM Status: F Source: [facility] TYPE CODE TESTS RESULT OUT OF RANGE REFERENCE UNITS LAB FGLU(LOINC) Glucose,Whol e Blood 127 High 75-110 mg/dL URINALYSIS W/ MICRO Collected: 02/01/20 9:52 AM Status: F Source: [facility] TYPE CODE TESTS RESULT OUT OF RANGE REFERENCE UNITS LAB UCO(LOINC) Color Red Abnormal YEL Result Comment: INTERPRET WI TH CAUTION DUE TO INTENSE COLOR OF URINE. LAB UTU(LOINC) Clarity, Urine Cloudy Abnormal CLEAR LAB UGL(LOINC) Glucose,Semi-q nt,Ur NEGATIVE NEG mg/dL LAB UBI(LOINC) Bilirubin, SemiQt,Ur NEGATIVE NEG LAB UKE(LOINC) Ketones, Urine NEGATIVE NEG mg/dL LAB USG(LOINC) Spec. Mckinney,Ur 1.011 1.005-1.030 LAB UHB(LOINC) Blood, Urine LARGE Abnormal NEG LAB UPH(LOINC) PH,Ur 7.0 5.0-8.0 LAB UPR(LOINC) Protein, Semi-qnt,Ur 3+ Abnormal NEG mg/dL LAB UUR(LOINC) Urobilinogen,U r Normal 0.0-1.0 EU/dL LAB UNI(LOINC) Nitrite,Ur NEGATIVE NEG LAB ULE(LOINC) Leukocyte Esterase TRACE Abnormal NEG LAB UWBC(LOINC) Urine WBC's 2 TO 5 0-5 /HPF LAB URBC(LOINC) Urine RBC's TOO NUMEROUS TO COUNT 0-2 /HPF LAB EPITH(LOINC) Epithelial cells None 0-5 /HPF Performed By: #### UAMIC, UR TP #### [employer] [facility] [place], [place] [phone] Biomedical Engineer: Collin Augustin MD PROTEIN,TOT,RAND UR Collected: 02/01/20 9:52 AM Status: F Source: [facility] TYPE CODE TESTS RESULT OUT OF RANGE REFERENCE UNITS LAB TPUR(LOINC) Tot Prot. Conc. 482 mg/dL Result Comment: No normal ra nge established. Performed By: #### UAMIC, UR TP #### [employer] [address] [place] [address] [phone] Biomedical Engineer: Collin Augustin MD GLUCOSE,WHOLE BLOOD Collected: 02/01/20 8:20 AM Status: F Source: [facility] TYPE CODE TESTS RESULT OUT OF RANGE REFERENCE UNITS LAB FGLU(LOINC) Glucose,Whol e Blood 131 High 75-110 mg/dL CBC WITH DIFF Collected: 4:37 AM Status: F Source: [facility] TYPE CODE TESTS RESULT OUT OF RANGE REFERENCE UNITS LAB WBC(LOINC) WBC Count 11.8 High 3.5-11.3 k/uL LAB RBC(LOINC) RBC Count 4.08 Low 4.21-5.77 m/uL LAB HGB(LOINC) Hemoglobin 9.8 Low 13.0-17.0 g/dL LAB HCT(LOINC) Hematocrit 32.1 Low 40.7-50.3 % LAB MCV(LOINC) MCV 78.7 Low 82.6-102.9 fL LAB MCH(LOINC) MCH 24.0 Low 25.2-33.5 pg LAB MCHC(LOINC) MCHC 30.5 28.4-34.8 g/dL LAB RDW(LOINC) RDW 15.2 High 11.8-14.4 % LAB PLT(LOINC) Platelet Count 345 138-453 k/uL LAB MPVX(LOINC) MPV 9.0 8.1-13.5 fL LAB NRBCS(LOINC) NRBC Automated 0.0 0.0 per 100 WBC LAB SEG(LOINC) Neutrophil (Seg) 77 High 36-65 % LAB LYM(LOINC) Lymphocyte 12 Low 24-43 % LAB MON(LOINC) Monocyte 8 3-12 % LAB EO(LOINC) Eosinophil 2 1-4 % LAB BASO(LOINC) Basophil 1 0-2 % LAB IGRAN(LOINC) Immature Granulocyte 0 0 % LAB ASEG(LOINC) Abs.Neutrophil (Seg) 9.09 High 1.50-8.10 k/uL LAB ALYM(LOINC) Abs. Lymph 1.39 1.10-3.70 k/uL LAB AMONO(LOINC) Abs. Monocyte 0.93 0.10-1.20 k/u L LAB AEO(LOINC) Abs. Eosinophil 0.22 0.00-0.44 k/uL LAB ABASO(LOINC) Abs. Basophil 0.15 0.00-0.20 k/u L LAB AIGRAN(LOINC) Abs.Imm.Granul ocyte 0.05 0.00-0.30 k/uL LAB RCOM(LOINC) RBC Morphology ANISOCYTOSIS PRESENT Result Comment: MICROCYTOSIS PRESENT Performed By: #### BMPX, CDP #### [facility] [address] [place] [id number] Biomedical Engineer: Collin Augustin MD BASIC METAB W/RFX MG Collected: 01/31/2025 4:37 AM S tatus: F Source: [facility] TYPE CODE TESTS RESULT OUT OF RANGE REFERENCE UNITS LAB NA(LOINC) NA (Sodium) 137 136-145 mmol/L LAB K(LOINC) K (Potassium) 3.9 3.7-5.3 mmol/L LAB CL(LOINC) Chloride 101 98-107 mmol/L LAB HCO(LOINC) CO2 20 20-31 mmol/L LAB GAP(LOINC) Anion Gap 16 9-16 mmol/L LAB GLU(LOINC) Glucose 134 High 74-99 mg/dL LAB BUN(LOINC) BUN (Urea N) 50 High 8-23 mg/dL LAB CRE(LOINC) Creatinine 5.7 High alert 0.7-1.2 mg/dL Result Comment: Previous Carline rt Value Reported LAB EGFR(LOINC) eGFR 11 Low >60 mL/min/1. 73m2 Result Comment: These results are not intended for use in patients <18 years of age. eGFR results are calculated without a race factor using the 2020 CKD-EPI equation. Careful clinical correlation is recommended, particularly when comparing to results calculated using previous equations. The CKD-EPI equation is less accurate in patients with extremes of muscle mass, extra-renal metabolism of creatine, excessive creatine ingestion, or following therapy that affects renal tubular secretion. LAB CA(LOINC) Calcium 8.3 Low 8.6-10.4 mg/dL Performed By: #### BMPX, CDP #### [employer] [facility] [place] [address] Biomedical Engineer: Collin Augustin MD RENAL COMPLETE Observed: 01/30/2025 7:10 PM Status: F Source: [facility] EXAMINATION: RETROPERITONEAL ULTRASOUND OF THE KIDNEYS AND URINARY BLADDER 01/30/2025 COMPARISON: None HISTORY: ORDERING SYSTEM PROVIDED HISTORY: increased creatinine TECHNOLOGIST PROVIDED HISTORY: increased creatinine FINDINGS: Kidneys: The right kidney measures 10.8 cm in length and the left kidney measures 11.0 cm in length. There is mild to moderate bilateral hydronephrosis. There is no renal cortical thinning or evident renal stone. No suspicious renal parenchymal lesion is identified. Renal cortical echotexture appears normal. Bladder: Bladder is empty. There is a Hummel catheter in place. IMPRESSION: Mild to moderate bilateral hydronephrosis. The kidneys appear otherwise sonographically normal. Interpreted by: Rigoberto Dean MD Signed by: Rigoberto Dean MD 01/30/25 Final result BASIC METAB W/RFX MG Collected: 01/30/2025 2:26 PM S tatus: F Source: [facility] TYPE CODE TESTS RESULT OUT OF RANGE REFERENCE UNITS LAB NA(LOINC) NA (Sodium) 137 136-145 mmol/L LAB K(LOINC) K (Potassium) 4.0 3.7-5.3 mmol/L LAB CL(LOINC) Chloride 98 98-107 mmol/L LAB HCO(LOINC) CO2 20 20-31 mmol/L LAB GAP(LOINC) Anion Gap 19 High 9-16 mmol/L LAB GLU(LOINC) Glucose 136 High 74-99 mg/dL LAB BUN(LOINC) BUN (Urea N) 48 High 8-23 mg/dL LAB CRE(LOINC) Creatinine 6.2 High alert 0.7-1.2 mg/dL Result Comment: Previous Carline rt Value Reported LAB EGFR(LOINC) eGFR 10 Low >60 mL/min/1. 73m2 Result Comment: These results are not intended for use in patients <18 years of age. eGFR results are calculated without a race factor using the 2020 CKD-EPI equation. Careful clinical correlation is recommended, particularly when comparing to results calculated using previous equations. The CKD-EPI equation is less accurate in patients with extremes of muscle mass, extra-renal metabolism of creatine, excessive creatine ingestion, or following therapy that affects renal tubular secretion. LAB CA(LOINC) Calcium 9.0 8.6-10.4 mg/dL Performed By: #### TROPI BM PX #### [employer] [address] [place] [id number] Biomedical Engineer: Collin Augustin MD TROPONIN Collected: 01/30/2025 2:26 PM Status: F Source: [facility] TYPE CODE TESTS RESULT OUT OF RANGE REFERENCE UNITS LAB HSTROP(LOINC) Troponin, High Sens 86 High alert 0-22 ng/L Result Comment: High Sensiti vity Troponin values cannot be compared with other Troponin methodologies. Previous Alert Value Reported Performed By: #### TROPCase[employer] Stores SpotFodo PX #### [employer] [address] [place] [id number] Biomedical Engineer: Collin Augustin MD PSA, DIAGNOSTIC Collected: 01/30/2025 2:26 PM Status : F Source: [facility] TYPE CODE TESTS RESULT OUT OF RANGE REFERENCE UNITS LAB PSA(LOINC) Prostatic Spec. Ag 504.00 High 0.00-4.00 ng/mL Result Comment: The Hoa E CLIA assay is used. Results obtained with different assay methods cannot be used interchangeably. Performed By: #### PSAD #### [employer] [address] [place] [address] [phone] Biomedical Engineer: Collin Augustin MD PROT. ELECTROPH, BL Collected: 01/30/2025 2:[address] atus: F Source: [facility] TYPE CODE TESTS RESULT OUT OF RANGE REFERENCE UNITS LAB TPPE(LOINC) Protein, Total 7.0 6.6-8.7 g/dL LAB ALBU(LOINC) Albumin, Calc. 3.3 3.2-5.2 g/dL LAB ALBUP(LOINC) Albumin, % 47 Low 56-66 % LAB A1(LOINC) Tdela-1-obvbsay ns 0.6 High 0.1-0.4 g/dL LAB A1P(LOINC) Gckeb-4-rsnyvnq ns,% 9 High 3-5 % LAB A2(LOINC) Pjspt-4-mflqqva ns 0.9 0.5-0.9 g/dL LAB A2P(LOINC) Cmdxs-2-azovdva ns,% 13 High 7-12 % LAB BET(LOINC) Beta-globulins 1.0 0.7-1.4 g/dL LAB BETP(LOINC) Beta-globulins, % 14 High 8-13 % LAB GAMM(LOINC) Gamma-globulins 1.2 0.5-1.5 g/dL LAB GAMMP(LOINC) Gamma-globulins ,% 18 11-19 % LAB TOTPR(LOINC) Total Prot. Sum 7.0 6.3-8.2 g/d L LAB TOTPRP(LOINC) Total Prot. Sum,% 101 98-102 % LAB PEINT(LOINC) Prot. Elect-Interp Alpha 1 globulins are elevated. Usually occurs with acute phase Result Comment: response. Ma y be observed in a variety of conditions associated with acute tissue damage/necrosis and/or acute infection/inflammation. Immunotyping is negative for monoclonal immunoglobulin. LAB PATHR(LOINC) Pathologist Review: Reviewed by pathologist: Corinna Vanessa M.D. Performed By: #### ITJAZIEL, PE #### [employer] [address] [place] [id number] Biomedical Engineer: Collin Augustin MD IMMUNOTYPING,BLOOD Collected: 2:26 PM Status: F Source: [facility] TYPE CODE TESTS RESULT OUT OF RANGE REFERENCE UNITS LAB ITYPIN([facility]) ITYP - Interpret. Immunotyping is negative for monoclonal immunoglobulin . LAB ITPATH([facility]) PATHOLOGIST REVIEW Reviewed by pathologist: Corinna Vanessa M.D. Performed By: #### ITYP, PE #### [address] [phone] Biomedical Engineer: Collin Augustin MD C3 Collected: 2:26 PM Status: F Source: [facility] TYPE CODE TESTS RESULT OUT OF RANGE REFERENCE UNITS LAB C3([facility]) C3 162 90-180 mg/dL Performed By: #### C3, ANASC N, C4, ANCACP, FKLLC #### [address] [phone] Biomedical Engineer: Collin Augustin MD C4 Collected: 2:26 PM Status: F Source: [facility] TYPE CODE TESTS RESULT OUT OF RANGE REFERENCE UNITS LAB C4([facility]) C4 31 10-40 mg/dL Performed By: #### C3, ANASC N, C4, ANCACP, FKLLC #### [address] [phone] Biomedical Engineer: Collin Augustin MD FREE KAPPA + LAMBDA Collected: 01/30/2025 2:[address] atus: F Source: [facility] TYPE CODE TESTS RESULT OUT OF RANGE REFERENCE UNITS LAB FKLC(LOINC) Free Wataga Lt Chains 95.7 High <20.7 mg/L Result Comment: Performed us ing Diazyme reagent on [employer]a Tariq Pro. Results obtained with different assay methods cannot be used interchangeably. LAB FLLC(LOINC) Free Lambda Lt Chains 92.6 High 4.2-27.7 mg/L Result Comment: Performed us ing Diazyme reagent on [employer] Tari[employer] Pro. Results obtained with different assay methods cannot be used interchangeably. LAB FKLLR(LOINC) Free Wataga/Lambda Rat 1.03 0.22-1.74 Performed By: #### C3, ANASC N, C4, ANCACP, FKLLC #### [address] [phone] Biomedical Engineer: Collin Augustin MD JOSE SCREEN Collected: 2:26 PM Status: F Source: [facility] TYPE CODE TESTS RESULT OUT OF RANGE REFERENCE UNITS LAB ANASC(LOINC) JOSE Screen NEGATIVE NEG LAB ENASC(LOINC) LENNIE Screen 0.2 <0.7 U/mL Result Comment: Reference Range: <0.7 Negative 0.7-1.0 Equivocal >1.0 Positive LENNIE Screen includes U1RNP,RNP70,Sm,Ro(SS-A),La(SS-B),CENP,Scl-70,Jossy-1 LAB DSDNA(LOINC) Anti-dsDNA <0.5 <10.0 IU/mL Result Comment: Reference Range: <10.0 Negative 10.0-15.0 Equivocal >15.0 Positive Performed By: #### C3, ANASC N, C4, ANCACP, LLC #### [address] [phone] Biomedical Engineer: Collin Augustin MD NEUTROPHIL CYTOPL AB Collected: 025 2:26 PM Status: F Source: [facility] TYPE CODE TESTS RESULT OUT OF RANGE REFERENCE UNITS LAB MPO(LOINC) MPO-ANCA <0.3 0.0-3.5 AU/mL Result Comment: Reference Range: <3.5 Negative 3.5-5.0 Equivocal >5.0 Positive LAB PR3(LOINC) PR3-ANCA <0.7 0.0-2.0 AU/mL Result Comment: Reference Range: <2.0 Negative 2.0-3.0 Equivocal >3.0 Positive Performed By: #### C3, ANASC N, C4, ANCACP, FKLLC #### [address] [address] Biomedical Engineer: Collin Augustin MD CREATININE,RANDOM UR Collected: 025 11:44 AM Status: F Source: [facility] TYPE CODE TESTS RESULT OUT OF RANGE REFERENCE UNITS LAB CREUR(LOINC) Creatinine Conc. 26.4 Low 39.0-259.0 mg/dL Result Comment: Reference ra nge defined for 1st morning urine Performed By: #### URNA, URC RE #### [address] [phone] Biomedical Engineer: Collin Augustin MD SODIUM, RANDOM UR Collected: 11:44 AM Status: F Source: [facility] TYPE CODE TESTS RESULT OUT OF RANGE REFERENCE UNITS LAB NAUR([facility]) Na Conc. Urine 112 mmol/L Result Comment: No normal ra nge established. Performed By: #### URNA, URC RE #### [address] [phone] Biomedical Engineer: Collin Augustin MD XR CHEST PORTABLE Observed: 01/30/2025 10:28 AM Status: F Source: [facility] EXAMINATION: ONE XRAY VIEW OF THE CHEST 01/30/2025 8:15 am COMPARISON: None. HISTORY: ORDERING SYSTEM PROVIDED HISTORY: right CVC insertion TECHNOLOGIST PROVIDED HISTORY: right CVC insertion FINDINGS: Right jugular central venous catheter terminates in the right atrium. Heart size within normal limits. Bandlike opacity left parahilar region. No pneumothorax. No pleural effusion. IMPRESSION: Right jugular central venous catheter terminates in the right atrium Bandlike opacity left parahilar region suggesting subsegmental atelectasis Interpreted by: Kaushik Foster MD Signed by: Kaushik Foster MD 01/30/25 Final result HEP B CORE AB Collected: 8:45 AM Status: F Source: [facility] TYPE CODE TESTS RESULT OUT OF RANGE REFERENCE UNITS LAB ABC([facility]) Hep B Core Ab NONREACTIVE NR Performed By: #### AHBS, AHC V, HBS, ABC #### [address] [phone] Biomedical Engineer: Collin Augustin MD HEP B SURF AB Collected: 8:45 AM Status: F Source: [facility] TYPE CODE TESTS RESULT OUT OF RANGE REFERENCE UNITS LAB AHBS([facility]) Hep B Surf Ab <3.50 <10 mIU/mL Result Comment: REFERENCE RANGE: <10.0 NON-REACTIVE/NOT IMMUNE >=10.0 REACTIVE/IMMUNE Performed By: #### AHBS, AHC V, HBS, ABC #### [employer] [address] [place] [address] [phone] Biomedical Engineer: Collin Augustin MD HEP B SURF AG Collected: 8:45 AM Status: F Source: [facility] TYPE CODE TESTS RESULT OUT OF RANGE REFERENCE UNITS LAB HBS([facility]) Hep B Surf Ag NONREACTIVE NR Performed By: #### AHRU, AHC V, HBS, ABC #### [facility] [address] [place] [address] [phone] Biomedical Engineer: Collin Augustin MD HEP C AB Collected: 5 8:45 AM Status: F Source: [facility] TYPE CODE TESTS RESULT OUT OF RANGE REFERENCE UNITS LAB AHCV([facility]) Hep C Ab NONREACTIVE NR Result Comment: The hepatitis C procedure used in our laboratory is a Chemiluminescent test specific for three recombinant HCV antigens. A negative anti-HCV result indicates that the antibodies to hepatitis C virus are not present at this time. Individuals with reactive anti-HCV should be considered infected and infectious until proven otherwise. Confirmation of all equivocal or reactive results is recommended by ordering HCV RNA by PCR. Performed By: #### YUE, AHC V, HBS, ABC #### [employer] [address] [place] [address] [phone] Biomedical Engineer: Collin Augustin MD TROPONIN Collected: 01/30/2025 5:59 AM Status: F Source: [facility] TYPE CODE TESTS RESULT OUT OF RANGE REFERENCE UNITS LAB HSTROP(LOINC) Troponin, High Sens 53 High alert 0-22 ng/L Result Comment: High Sensiti vity Troponin values cannot be compared with other Troponin methodologies. Performed By: #### TROPI ### # [facility] [address] [place] [address] [phone] Biomedical Engineer: Collin Augustin MD CULT,URINE Observed: 01/30/2025 5:19 AM Status: F Source: [facility] Specimen Description .CLEAN CATCH URINE Special Requests Site: Urine Culture NO GROWTH Report Status FINAL 01/31/2025 Performed By: #### URC #### [employer] [address] [place] [address] Biomedical Engineer: Collin Augustin MD CBC WITH DIFF Collected: 4:49 AM Status: F Source: [facility] TYPE CODE TESTS RESULT OUT OF RANGE REFERENCE UNITS LAB WBC(LOINC) WBC Count 12.1 High 3.5-11.3 k/uL LAB RBC(LOINC) RBC Count 4.05 Low 4.21-5.77 m/uL LAB HGB(LOINC) Hemoglobin 9.9 Low 13.0-17.0 g/dL LAB HCT(LOINC) Hematocrit 32.1 Low 40.7-50.3 % LAB MCV(LOINC) MCV 79.3 Low 82.6-102.9 fL LAB MCH(LOINC) MCH 24.4 Low 25.2-33.5 pg LAB MCHC(LOINC) MCHC 30.8 28.4-34.8 g/dL LAB RDW(LOINC) RDW 15.3 High 11.8-14.4 % LAB PLT(LOINC) Platelet Count 374 138-453 k/uL LAB MPVX(LOINC) MPV 8.8 8.1-13.5 fL LAB NRBCS(LOINC) NRBC Automated 0.0 0.0 per 100 WBC LAB SEG(LOINC) Neutrophil (Seg) 83 High 36-65 % LAB LYM(LOINC) Lymphocyte 8 Low 24-43 % LAB MON(LOINC) Monocyte 5 3-12 % LAB EO(LOINC) Eosinophil 2 1-4 % LAB BASO(LOINC) Basophil 1 0-2 % LAB IGRAN(LOINC) Immature Granulocyte 1 High 0 % LAB ASEG(LOINC) Abs.Neutrophil (Seg) 10.19 High 1.50-8.10 k/uL LAB ALYM(LOINC) Abs. Lymph 0.94 Low 1.10-3.70 k/uL LAB AMONO(LOINC) Abs. Monocyte 0.60 0.10-1.20 k/u L LAB AEO(LOINC) Abs. Eosinophil 0.21 0.00-0.44 k/uL LAB ABASO(LOINC) Abs. Basophil 0.11 0.00-0.20 k/u L LAB AIGRAN(LOINC) Abs.Imm.Granul ocyte 0.06 0.00-0.30 k/uL LAB RCOM(LOINC) RBC Morphology ANISOCYTOSIS PRESENT Result Comment: MICROCYTOSIS PRESENT Performed By: #### CDP, TROP I, BMPX #### [employer] [address] [place], [place] [phone] Biomedical Engineer: Collin Augustin MD BASIC METAB W/RFX MG Collected: 01/30/2025 4:49 AM S tatus: Hemanth Source: [facility] TYPE CODE TESTS RESULT OUT OF RANGE REFERENCE UNITS LAB NA(LOINC) NA (Sodium) 141 136-145 mmol/L LAB K(LOINC) K (Potassium) 7.1 High alert 3.7-5.3 mmol/L LAB CL(LOINC) Chloride 109 High 98-107 mmol/L LAB HCO(LOINC) CO2 10 Low 20-31 mmol/L LAB GAP(LOINC) Anion Gap 22 High 9-16 mmol/L LAB GLU(LOINC) Glucose 99 74-99 mg/dL LAB BUN(LOINC) BUN (Urea N) 108 High alert 8-23 mg/dL LAB CRE(LOINC) Creatinine 13.0 High alert 0.7-1.2 mg/dL LAB EGFR(LOINC) eGFR 4 Low >60 mL/min/1. 73m2 Result Comment: These results are not intended for use in patients <18 years of age. eGFR results are calculated without a race factor using the 2020 CKD-EPI equation. Careful clinical correlation is recommended, particularly when comparing to results calculated using previous equations. The CKD-EPI equation is less accurate in patients with extremes of muscle mass, extra-renal metabolism of creatine, excessive creatine ingestion, or following therapy that affects renal tubular secretion. LAB CA(LOINC) Calcium 8.6 8.6-10.4 mg/dL Performed By: #### CDP, TROP I, BMPX #### [employer] [address] [place], [place] [phone] Biomedical Engineer: Collin Augustin MD TROPONIN Collected: 01/30/2025 4:49 AM Status: F Source: [facility] TYPE CODE TESTS RESULT OUT OF RANGE REFERENCE UNITS LAB HSTROP(LOINC) Troponin, High Sens 45 High 0-22 ng/L Result Comment: High Sensiti vity Troponin values cannot be compared with other Troponin methodologies. Performed By: #### CDP, TROP I, BMPX #### [facility] [employer] [address] [place] [address] [phone] Biomedical Engineer: Collin Augustin MD MRSA, DNA, NASAL Collected: 01/30/2025 4:30 AM Statu s: F Source: [facility] TYPE CODE TESTS RESULT OUT OF RANGE REFERENCE UNITS LAB MRSASC(LOINC) Specimen Description .NASAL SWAB LAB MRSARE(LOINC) MRSA, DNA, Nasal NEGATIVE NEG Result Comment: NEGATIVE: MR SA DNA not detected by nucleic acid amplification. Results should be used as an adjunct to nosocomial control efforts to identify patients needing enhanced precautions. The test is not intended to identify patients with staphylococcal infections. Results should not be used to guide or monitor treatment for MRSA infections. Performed By: #### MRSANO ## ## [facility] [employer] [address] [place] [phone] Biomedical Engineer: Collin Augustin MD ALLERGIES No Allergies Records Found ENCOUNTERS ADMIT/DISCHARGE ACCOUNT NUMBER ADMITTING ENCOUNTER CLASS LOCATION SOURCE 01/30/2025/ 5 [id number] FRAN LEIGH Inpatient Encounter Building:[facility] 2Room: 4Bed: 01 [facility] PAYERS ENCOUNTER GUARANTOR PAYER SUBSCRIBER SOURCE 01/30/2025 ALLEN MONTELONGOB: [facility] [place] [address]Jtz: () Primary Insurance:MEDICAR EPolicy Number: [id number] obey Date:[id number] [address], [place] [address]LU: ALLEN MONTELONGOB: [id number] [place], [place] [address]Mrm: () [facility]
[2025-04-05 12:27] VITALS: BP 162/88; PULSE 91; TEMP 36.6; O2SAT 100; BMI 22.4
--- OUTSIDE RECORDS SUMMARY | 2025-04-05 12:35 | XMS_ITS | Encounter Summary ---
Author Organization [facility] Address [address] [place] [address] Care Team Providers Care Bartender Helper Name Role Phone Jaimee Morales RN Unavailable [phone] Jonah Betts MD Unavailable [phone] Maryanne Tavarez PA-C Unavailable [phone] Thompson Bell DO Unavailable Anne Tran RN Unavailable Unavailable Source Comments In the event this information is protected by the Federal Confidentiality of Alcohol and Drug AbusePatient Records regulations: The Federal rules restrict any use of the information to criminally investigate or prosecute any alcohol or drug abuse patient.[facility] Encounter Details Date Type Department Care Team (Late st Contact Info) Description 05/01/2021 Patient Msg Hematology/Oncology [address] [place] [address] Provider, Ccf 05/[address] Bell, at [facility] Social History Tobacco Use Types Packs/Day Years Used Date Smoking Tobacco: Every Day Cigarettes 1 37 Smokeless Tobacco: Former Alcohol Use Standard Drinks/Week Comments Not Currently 0 (1 standard drink = 0.6 oz pur e alcohol) PHQ-2 Answer Date Recorded PHQ-2 score 0 12/03/2019 Area Deprivation Index Answer Date Christian rded National Score (1-100), lower number is lower ri sk Not on file 10/21/2020 State Score (1-10), lower number is lower risk N ot on file 10/21/2020 Data from: https://www.neighborhoodatlas.[facility]/. Last address used for calculation Not on file 10/21/2020 Sex and Gender Information Value Date Recorded Sex Assigned at Male 02/04/2021 8:58 AM EDT Legal Sex Male 11:09 AM EDT Gender Identity Male 02/04/2021 8:58 AM EDT Sexual Orientation Straight 02/04/2021 8: 58 AM EDT COVID-19 Exposure Response Date Recorded In the last month, have you been in contact with someone who was confirmed or suspected to have Coronavirus / COVID-19? No / Unsure 05/01/2021 10:15 AM EDT documented as of this encounter Plan of Treatment Not on file documented as of this encounter Visit Diagnoses Not on filedocumented in this encounter Additional Health Concerns Infection Onset Date Last Indicated Resolved Time COVID-19 Rule-Out 01/24/2023 01/24/2023 01/24/2023 6:05 AM EDT documented as of this encounter Care Teams Bartender Helper Relationship Specialty Start Date End Date Jaimee Morales RN [address] [place] [address] [place] [address] Specialty Adjunct Faculty Hematology/Oncology 06/25/19 03/26/24 Jonah Betts MD [address] [place] [address] [place] [address] Physician Hematology/Oncology 06/25/19 Maryanne Tavarez, CANDIEC [address] [place] [address] [place] [address] Physician Vice President Of Nursing Hematology/Oncology 06/25/19 Thompson Bell DO [address] [place] [address] Consulting Hospice & Palliative Medicine 02/03/21 Anne Tran, RN Specialty Adjunct Faculty Hospice & Palliative Medicine 02/03/21 documented as of this encounter
--- OUTSIDE RECORDS SUMMARY | 2025-04-05 12:35 | XMS_ITS | Encounter Summary ---
Author Organization [facility] Address [address] [place] [address] Care Team Providers Care Fly Maker Name Role Phone Jaimee Morales RN Unavailable [phone] Jonah Betts MD Unavailable [phone] Maryanne Tavarez PA-C Unavailable [phone] Thompson Bell DO Unavailable Anne Tran RN Unavailable Unavailable Source Comments In the event this information is protected by the Federal Confidentiality of Alcohol and Drug AbusePatient Records regulations: The Federal rules restrict any use of the information to criminally investigate or prosecute any alcohol or drug abuse patient.[facility] Encounter Details Date Type Department Care Team (Late st Contact Info) Description 01/13/2022 Patient Msg Navigate [facility] [address] [place] [address] Provider, Ccf Establish PCP Social History Tobacco Use Types Packs/Day Years Used Date Smoking Tobacco: Every Day Cigarettes 1 37 Smokeless Tobacco: Former Alcohol Use Standard Drinks/Week Comments Not Currently 0 (1 standard drink = 0.6 oz pur e alcohol) PHQ-2 Answer Date Recorded PHQ-2 score 2 11/15/2021 Area Deprivation Index Answer Date Christian rded National Score (1-100), lower number is lower ri sk Not on file 10/21/2020 State Score (1-10), lower number is lower risk N ot on file 10/21/2020 Data from: https://www.neighborhoodatlas.medicine.[facility].edu/. Last address used for calculation Not on [...] have Coronavirus / COVID-19? No / Unsure 12/25/2021 9:14 AM EST documented as of this encounter Plan of Treatment Not on file documented as of this encounter Visit Diagnoses Not on filedocumented in this encounter Additional Health Concerns Infection Onset Date Last Indicated Resolved Time COVID-19 Rule-Out 01/24/2023 01/24/2023 01/24/2023 6:05 AM EDT documented as of this encounter Care Teams Fly Maker Relationship Specialty Start Date End Date Jaimee Morales RN [address] [place] [address] [place] [address] Specialty Marketing Specialist Hematology/Oncology 06/25/19 03/26/24 Jonah Betts MD [address] [place] [address] [place] [address] Physician Hematology/Oncology 06/25/19 Maryanne Tavarez PA-C [address] [place] [address] [place] [address] Physician Gmat Instructor Hematology/Oncology 06/25/19 Thompson Bell DO [address] [place] [address] Consulting Hospice & Palliative Medicine 02/03/21 Anne Tran, VIK Specialty Marketing Specialist Hospice & Palliative Medicine 02/03/21 documented as of this encounter
--- OUTSIDE RECORDS SUMMARY | 2025-04-05 12:35 | XMS_ITS | Encounter Summary ---
Author Organization [facility] Address [address] [place] [address] Care Team Providers Care Rodding Machine Tender Name Role Phone Jaimee Morales RN Unavailable [phone] Jonah Betts MD Unavailable [phone] Maryanne Tavarez PA-C Unavailable [phone] Thompson Bell DO Unavailable Anne Tran RN Unavailable Unavailable Source Comments In the event this information is protected by the Federal Confidentiality of Alcohol and Drug AbusePatient Records regulations: The Federal rules restrict any use of the information to criminally investigate or prosecute any alcohol or drug abuse patient.[facility] Encounter Details Date Type Department Care Team (Late st Contact Info) Description 01/10/2022 Patient Msg Palliative Medicine [address] [place] [address] Thompson Bell DO [address] [place] [address] Appointment Cancellation Request Social History Tobacco Use Types Packs/Day Years [...] N ot on file 10/21/2020 Data from: https://www.neighborhoodatlas.[facility]/. Last address used for calculation Not on [...] documented as of this encounter Care Teams Rodding Machine Tender Relationship Specialty Start Date End Date Jaimee Morales RN [address] [place] [address] [place] [address] Specialty Plumbing Inspector Hematology/Oncology 06/25/19 03/26/24 Jonah Betts MD [address] [place] [address] [place] [address] Physician Hematology/Oncology 06/25/19 Maryanne Tavarez PAMalickC [address] [place] [address] [place] [address] Physician Assistant Track And Field Coach Hematology/Oncology 06/25/19 Thompson Bell DO [address] [place] [address] Consulting Hospice & Palliative Medicine 02/03/21 Anne Tran, RN Specialty Plumbing Inspector Hospice & Palliative Medicine 02/03/21 documented as of this encounter
--- OUTSIDE RECORDS SUMMARY | 2025-04-05 12:35 | XMS_ITS | Encounter Summary ---
Author Organization [facility] Address [address] [place] [address] Care Team Providers Care Deputy Director Name Role Phone Jaimee Morales RN Unavailable [phone] Jonah Betts MD Unavailable [phone] Maryanne Tavarez PA-C Unavailable [phone] Thompson Bell DO Unavailable Anne Tran RN Unavailable Unavailable Source Comments In the event this information is protected by the Federal Confidentiality of Alcohol and Drug AbusePatient Records regulations: The Federal rules restrict any use of the information to criminally investigate or prosecute any alcohol or drug abuse patient.[facility] Encounter Details Date Type Department Care Team (Late st Contact Info) Description 02/04/2024 Patient Msg Hematology/Oncology [address] [facility] [place] [address] Jonah Betts MD [address] [place] [address] Appointment Request Social History Tobacco Use Types Packs/Day Years Used Date Smoking Tobacco: Every Day Cigarettes 1 37 Smokeless Tobacco: Former Alcohol Use Standard Drinks/Week Comments Not Currently 0 (1 standard drink = 0.6 oz pur e alcohol) PHQ-2 Answer Date Recorded PHQ-2 score 2 02/28/2022 Area Deprivation Index Answer Date Christian rded National Score (1-100), lower number is lower ri sk 89 03/18/2023 State Score (1-10), lower number is lower risk 8 03/18/2023 Data from: https://www.neighborhoodatlas.[facility]/. Last address used for calculation [address] 03/18/2023 Sex and Gender Information Value Date Recorded Sex Assigned at Male 02/04/2021 8:58 AM EDT Legal Sex Male 11:09 AM EDT Gender Identity Male 02/04/2021 8:58 AM EDT Sexual Orientation Straight 02/04/2021 8: 58 AM EDT documented as of this encounter Functional Status * Are you deaf or do you have serious difficulty hearing? Answer Date of Assessment Author No 02/16/2023 7:19 PM EDT Eunice De La Torre RN * Are you blind or do you have serious difficulty seeing, even when wearing glasses? Answer Date of Assessment Author No 02/16/2023 7:19 PM EDT Eunice De La Torre RN * Do you have serious difficulty walking or climbing stairs? Answer Date of Assessment Author Yes 02/16/2023 7:19 PM EDT Eunice De La Torre RN * Do you have difficulty dressing or bathing? Answer Date of Assessment Author Yes 02/16/2023 7:19 PM EDT Eunice De La Torre RN * Because of a physical, mental, or emotional condition, do you have difficulty doing errands alone such as visiting a doctor's office or shopping? Answer Date of Assessment Author Yes 02/16/2023 7:19 PM Eunice Fuchs RN documented as of this encounter Mental Status * Because of a physical, mental, or emotional condition, do you have serious difficulty concentrating, remembering, or making decisions? Answer Entry Date Author No 02/16/2023 7:19 PM Eunice Fuchs RN documented in this encounter Plan of Treatment Not on file documented as of this encounter Visit Diagnoses Not on filedocumented in this encounter Care Teams Deputy Director Relationship Specialty Start Date End Date Jaimee Morales RN [address] [place] [address] [place] [address] Specialty Exhibit Display Representative Hematology/Oncology 06/25/19 03/26/24 Jonah Betts MD [address] [place] [address] [place] [address] Physician Hematology/Oncology 06/25/19 Maryanne Tavarez PA-C [address] [place] [address] [place] [address] Physician Shipmaster Hematology/Oncology 06/25/19 Thompson Bell DO [address] [place] [address] Consulting Hospice & Palliative Medicine 02/03/21 Anne Tran RN Specialty Exhibit Display Representative Hospice & Palliative Medicine 02/03/21 documented as of this encounter
--- OUTSIDE RECORDS SUMMARY | 2025-04-05 12:35 | XMS_ITS | Encounter Summary ---
Author Organization [facility] Address [address] [place] [address] Care Team Providers Care Runway Model Name Role Phone German So Primary Care Provider Encounter Details Date Type Department Care Team (Latest Contact Info) Description 03/04/2025 Prep for Procedure [address] [place] [address] [place] [address] [place] [address] [phone] (Work) Prostate cancer (HCC); BPH with obstruction/lower urinary tract symptoms Social History Tobacco Use Types Packs/Day Years Used Date Smoking Tobacco: Never Assessed AUDIT-C Answer Date Recorded Q1: How often do you have a drink containing alcohol? Never 01/30/2025 Q2: How many drinks containi ng alcohol do you have on a typical day when you are drinking? Patient does not drink Q3: How often do you have si x or more drinks on one occasion? Less than monthly 01/30/2025 Interpersonal Safety Domain Source: IP Abuse Screening Answer Date Recorded Physical abuse Denies 01/30/2025 Verbal abuse Denies 01/30/2025 Emotional abuse Denies 01/30/2025 Financial abuse Yes, present (comment) Sexual abuse Denies 01/30/2025 Sex and Gender Information Value Date Recorded Sex Assigned at Male 03/16/2025 7:05 AM EDT Legal Sex Male 12:16 PM EDT Gender Identity Not on file Sexual Orientation Not on file documented as of this encounter Plan of Treatment Upcoming Encounters Date Type Department Care Team (Latest Contact Info) Description 04/12/2025 7:30 AM EDT [place] [facility] [place] [address] [place] [address] Valente Braxton Jr., MD [address] [place] [address] [phone] (Work) 04/12/2025 7:30 AM EDT - 04/12/2025 8:15 [place] [address] [address] [place] [address] Valente Braxton Jr., MD [address] [place] [address] [phone] (Work) CYSTOSCOPY RIGHT URETEROSCOPY HOLMIUM LASER RIGHT STENT EXCHANGE CHANNEL TURP Scheduled Procedures Name Priority Associated Diagnoses Date/Ti nc CYSTOSCOPY URETEROSCOPY LASER Prostate cancer (HCC) BPH with obstruction/lower urinary tract symptoms 04/12/2025 7:30 AM EDT documented as of this encounter Visit Diagnoses Diagnosis Prostate cancer (HCC) Malignant neoplasm of prostate BPH with obstruction/lower urinary tract symptoms Hypertrophy of prostate with urinary obstruction and other lower urinary tract symptoms (LUTS) Prostate cancer (HCC) Malignant neoplasm of prostate BPH with obstruction/lower urinary tract symptoms Hypertrophy of prostate with urinary obstruction and other lower urinary tract symptoms (LUTS) Prostate cancer (HCC) Malignant neoplasm of prostate BPH with obstruction/lower urinary tract symptoms Hypertrophy of prostate with urinary obstruction and other lower urinary tract symptoms (LUTS) documented in this encounter Care Teams Runway Model Relationship Specialty Start Date End Date German So DO [address] [place] [address] PCP - General Emergency Medicine 02/21/23 documented as of this encounter
--- OUTSIDE RECORDS SUMMARY | 2025-04-05 12:35 | XMS_ITS | Encounter Summary ---
Author Organization [facility] [place] Address [address] [place] [address] Care Team Providers Care Bi Data Architect Name Role Phone Jaimee Morales RN Unavailable [phone] Jonah Betts MD Unavailable [phone] Maryanne Tavarez PA-C Unavailable [phone] Thompson Bell DO Unavailable Anne Tran RN Unavailable Unavailable Source Comments In the event this information is protected by the Federal Confidentiality of Alcohol and Drug AbusePatient Records regulations: The Federal rules restrict any use of the information to criminally investigate or prosecute any alcohol or drug abuse patient.[facility] Encounter Details Date Type Department Care Team (Late st Contact Info) Description 07/09/2021 Patient Msg Palliative Medicine [address] [place] [address] Provider, Ccf refill Social History Tobacco Use Types Packs/Day Years Used Date Smoking Tobacco: Every Day Cigarettes 1 37 Smokeless Tobacco: Former Alcohol Use Standard Drinks/Week Comments Not Currently 0 (1 standard drink = 0.6 oz pur e alcohol) PHQ-2 Answer Date Recorded PHQ-2 score 2 06/09/2021 Area Deprivation Index Answer Date Christian rded National Score (1-100), lower number is lower ri sk Not on file 10/21/2020 State Score (1-10), lower number is lower risk N ot on file 10/21/2020 Data from: https://www.neighborhoodatlas.medicine.[facility]/. Last address used for calculation Not on [...] documented as of this encounter Care Teams Bi Data Architect Relationship Specialty Start Date End Date Jaimee Morales RN [address] [place] [address] [place] [address] Freight Conductor Hematology/Oncology 06/25/19 03/26/24 Jonah Betts MD [address] [facility] [place] [address] Physician Hematology/Oncology 06/25/19 Maryanne Tavarez PA-C [address] [facility] [place] [address] Physician Helpdesk Analyst Hematology/Oncology 06/25/19 Thompson Bell DO [address] [place] [address] Consulting Hospice & Palliative Medicine 02/03/21 Anne Tran, RN Specialty Road Freight Conductor Hospice & Palliative Medicine 02/03/21 documented as of this encounter
--- OUTSIDE RECORDS SUMMARY | 2025-04-05 12:35 | XMS_ITS | Encounter Summary ---
Author Organization [facility] Address [address] [place] [address] Care Team Providers Care Saw Maker Name Role Phone Jaimee Morales RN Unavailable [phone] Jonah Betts MD Unavailable [phone] Maryanne Tavarez PA-C Unavailable [phone] Thompson Bell DO Unavailable Anne Tran RN Unavailable Unavailable Source Comments In the event this information is protected by the Federal Confidentiality of Alcohol and Drug AbusePatient Records regulations: The Federal rules restrict any use of the information to criminally investigate or prosecute any alcohol or drug abuse patient.[facility] Encounter Details Date Type Department Care Team (Late st Contact Info) Description 01/10/2022 Patient Msg Palliative Medicine [address] [place] [address] Thompson Bell DO [address] [place] [address] Request an Appointment Social History Tobacco Use Types Packs/Day Years [...] N ot on file 10/21/2020 Data from: https://www.neighborhoodatlas.[facility]/. Last address used for calculation Not on [...] documented as of this encounter Care Teams Saw Maker Relationship Specialty Start Date End Date Jaimee Morales RN [address] [facility] [place] [address] Specialty Drawer In Hematology/Oncology 06/25/19 03/26/24 Jonah Betts MD [address] [place] [address] [place] [address] Physician Hematology/Oncology 06/25/19 Maryanne Tavarez, PAMalickC [address] [place] [address] [place] [address] Physician Dean Hematology/Oncology 06/25/19 Thompson Bell DO [address] [place] [id number] Consulting Hospice & Palliative Medicine 02/03/21 Anne Tran, RN Specialty Drawer In Hospice & Palliative Medicine 02/03/21 documented as of this encounter
--- OUTSIDE RECORDS SUMMARY | 2025-04-05 12:35 | XMS_ITS | Encounter Summary ---
Author Organization [facility] [place] [facility] Address [address] [place] [address] Care Team Providers Care Scout Executive Name Role Phone Jaimee Morales RN Unavailable [phone] Jonah Betts MD Unavailable [phone] Maryanne Tavarez PA-C Unavailable [phone] Thompson Bell DO Unavailable Anne Tran RN Unavailable Unavailable Source Comments In the event this information is protected by the Federal Confidentiality of Alcohol and Drug AbusePatient Records regulations: The Federal rules restrict any use of the information to criminally investigate or prosecute any alcohol or drug abuse patient.[facility] [place] Encounter Details Date Type Department Care Team (Late st Contact Info) Description 01/10/2022 Patient Msg Palliative Medicine [address] [place] [address] Thompson Bell DO [address] [place] [address] Appointment Cancellation Request Social History [...] N ot on file 10/21/2020 Data from: https://www.neighborhoodatlas.[facility]/. Last address used for calculation Not [...] documented as of this encounter Care Teams Scout Executive Relationship Specialty Start Date End Date Jaimee Morales RN [address] [place] [address] [place] [address] Specialty Level Glass Forming Machine Operator Hematology/Oncology 06/25/19 03/26/24 Jonah Betts MD [address] [place] [address] [place] [address] Physician Hematology/Oncology 06/25/19 Maryanne Tavarez PAMalickC [address] [place] [address] [place] [address] Physician Addiction Nurse Hematology/Oncology 06/25/19 Thompson Bell DO [address] [place] [address] Consulting Hospice & Palliative Medicine 02/03/21 Anne Tran, RN Specialty Level Glass Forming Machine Operator Hospice & Palliative Medicine 02/03/21 documented as of this encounter
--- OUTSIDE RECORDS SUMMARY | 2025-04-05 12:35 | XMS_ITS | Encounter Summary ---
Author Organization [facility] Address [address] [place] [address] Care Team Providers Care Sight Effects Specialist Name Role Phone Jaimee Morales RN Unavailable [phone] Jonah Betts MD Unavailable [phone] Maryanne Tavarez PA-C Unavailable [phone] Thompson Bell DO Unavailable Anne Tran RN Unavailable Unavailable Source Comments In the event this information is protected by the Federal Confidentiality of Alcohol and Drug AbusePatient Records regulations: The Federal rules restrict any use of the information to criminally investigate or prosecute any alcohol or drug abuse patient.[facility] Encounter Details Date Type Department Care Team (Late st Contact Info) Description 09/05/2021 Patient Msg Hematology/Oncology [address] [facility] [place] [address] Jonah Betts MD [address] [place] [address] RE: Request an Appointment Social History Tobacco Use [...] N ot on file 10/21/2020 Data from: https://www.neighborhoodatlas.medicine.[facility].edu/. Last address used for calculation Not on [...] documented as of this encounter Care Teams Sight Effects Specialist Relationship Specialty Start Date End Date Jaimee Morales RN [address] [place] [address] [place] [address] Specialty Registered Public Surveyor Hematology/Oncology 06/25/19 03/26/24 Jonah Betts MD [address] [place] [address] [place] [address] Physician Hematology/Oncology 06/25/19 Maryanne Tavarez PA-C [address] [place] [address] [place] [address] Physician Retail Department Supervisor Hematology/Oncology 06/25/19 Thompson Bell DO [address] [place] [address] Consulting Hospice & Palliative Medicine 02/03/21 Anne Tran, VIK Specialty Registered Public Surveyor Hospice & Palliative Medicine 02/03/21 documented as of this encounter
--- OUTSIDE RECORDS SUMMARY | 2025-04-05 12:35 | XMS_ITS | Clinical Summary ---
Author Organization [employer] [facility] tem Address [id number] [address] [place] [address] Care Team Providers Care Parachute Inspector Name Role Phone No Pcp, No Pcp Primary Care Provider Unavailabl e Social History Tobacco Use Types Packs/Day Years Used Date Smoking Tobacco: Never Assessed Childcare Answer Date Recorded Childcare Unknown 04/25/2019 Employment Answer Date Recorded Employment Unknown 04/25/2019 Purpose - Life Answer Date Recorded Purpose and direction in life Unknown Sex and Gender Information Value Date Recorded Sex Assigned at Not on file Legal Sex Male 11:24 AM EDT Gender Identity Not on file Sexual Orientation Not on file Plan of Treatment Health Maintenance Due Date Last Done Comments Depression Screening 1975 Tobacco Screening 1975 Adult BMI Screening 1981 DTaP,Tdap and Td Vaccines (1 - Tdap) 1982 Zoster (Shingles) Vaccine (1 of 2) 2013 Influenza Vaccine 07/15/2025 Medical Devices Not on file Insurance [place] [employer] Care Teams Parachute Inspector Relationship Specialty Start Date End Date No Pcp, [place] [address] PCP - General Family Medicine 09/20/19
--- OUTSIDE RECORDS SUMMARY | 2025-04-05 12:35 | XMS_ITS | Clinical Summary ---
Author Organization [facility] Healthcare Address [address] [place] [address] Care Team Providers Care Compensation Adjuster Name Role Phone Unavailable Primary Care Provider Unavailabl e Social History Tobacco Use Types Packs/Day Years Used Date Smoking Tobacco: Never Assessed Sex and Gender Information Value Date Recorded Sex Assigned at Not on file Legal Sex Male 9:34 PM EDT Gender Identity Not on file Sexual Orientation Not on file Last Filed Vital Signs Vital Sign Reading Time Taken Comments Blood Pressure - - Pulse - - Temperature - - Respiratory Rate - - Oxygen Saturation - - Inhaled Oxygen Concentration - - Weight 83 kg (183 lb) 09/11/2020 12:00 PM EDT Height 177.8 cm (5' 10 ) 09/11/2020 12:00 PM EDT Body Mass Index 26.26 09/11/2020 12:00 PM EDT Plan of Treatment Not on file
--- OUTSIDE RECORDS SUMMARY | 2025-04-05 12:35 | XMS_ITS | Clinical Summary ---
Author Organization [facility] Address [address] [place] [address] Care Team Providers Care Electron Beam Photo Mask Maker Name Role Phone German So Pratik LOVELL Primary Care Provider Allergies Active Allergy Reactions Criticality Noted Date Comments Hydrocodone-Acetaminophen 01/30/2025 Medications tamsulosin (FLOMAX) 0.4 MG capsule Take 1 capsule by mouth daily 30 capsule 02/07/2025 Active Darolutamide (NUBEQA) 300 MG TABSIndications :Prostate cancer metastatic to bone (HCC) Take 600 mg by mouth in the morning and at bedtime Take with food. 120 tablet 11 02/22/2025 Active relugolix (ORGOVYX) 120 MG chemo tabletIndicatio ns:Prostate cancer metastatic to bone (HCC) Take 1 tablet by mouth daily 30 tablet 11 02/22/2025 Active Active Problems Problem Noted Date Diagnosed Date Prostate cancer 03/04/2025 BPH with obstruction/lower urinary tract symptom s 03/04/2025 Acute renal failure 01/30/2025 VALERIA (acute kidney injury) 01/30/2025 Obstructive uropathy 01/30/2025 Hyperkalemia 01/30/2025 Metabolic acidosis 01/30/2025 History of prostate cancer 01/30/2025 Urinary retention 01/30/2025 Encounters Date Type Department Care Team Description 03/11/2025 Telephone [facility] [address] [place] [address] [address] [place] [address] Valente Braxton Jr., MD Other 03/04/2025 Prep for Procedure [address] ACC [address] [place] [address] Valente Braxton Jr., MD Prostate cancer (HCC); BPH with obstruction/lower urinary tract symptoms 02/22/2025 1:00 PM EDT Office Visit [address] ACC [address] [place] [phone] Valente Braxton Jr., MD Prostate cancer metastatic to bone (HCC) (Primary Dx); BPH with obstruction/lower urinary tract symptoms; Nephrolithiasis 02/01/2025 12:39 PM EDT Anesthesia Event [facility] OR [address] [place] [id number] Christi Freeman MD 02/01/2025 12:09 PM EDT - 02/01/2025 12:39 PM EDT Surgery [facility] OR [address] [place] [id number] Dell Dodge MD CYSTOSCOPY RETROGRADE PYELOGRAM 01/30/2025 4:04 AM EDT - 02/06/2025 12:24 PM EDT Hospital Encounter [facility]- Stepdown [address] [place] [id number] Mickey Hubbard MD [place], Daniel, DO Steve, Nicholas, DO Abuhanttash, Khaled, MD Discharge Disposition: Home or Self Care 01/30/2025 Travel from Last 3 Months Social History Tobacco Use Types Packs/Day Years [...] Sign Reading Time Taken Comments Blood Pressure 125/77 02/22/2025 1:43 PM EDT Pulse 97 02/22/2025 1:43 PM EDT Temperature 36.9 C (98.4 F) 02/06/2025 7:23 AM EDT Respiratory Rate 16 02/06/2025 7:23 AM EDT Oxygen Saturation 98% 02/06/2025 3:39 AM EDT Inhaled Oxygen Concentration - - Weight 68.5 kg (151 lb) 02/22/2025 1:43 PM EDT Height 177.8 cm (5' 10 ) 02/01/2025 11:32 AM EDT Body Mass Index 21.67 02/01/2025 11:32 AM EDT Plan of Treatment Upcoming Encounters Date Type Department Care Team (Latest Contact Info) Description 04/12/2025 7:30 AM EDT Hospital Encounter [facility] OR [address] [place] [address]. [place] [address] Valente Braxton Jr., MD [facility] [place] [address] -[phone] (Work) 04/12/2025 7:30 AM EDT - 04/12/2025 8:15 AM ED[place] [address] [facility] [place] [address] Valente Braxton Jr., MD [address] [place] [address] -[phone] (Work) CYSTOSCOPY RIGHT URETEROSCOPY HOLMIUM LASER RIGHT STENT EXCHANGE CHANNEL TURP Scheduled Procedures Name Priority Associated Diagnoses Date/Ti co CYSTOSCOPY URETEROSCOPY LASER Prostate cancer (HCC) BPH with obstruction/lower urinary tract symptoms 04/12/2025 7:30 AM EDT Health Maintenance Due Date Last Done Comments COVID-19 Vaccine (#1) 1968 Depression Screen 1975 HIV screen 1978 DTaP/Tdap/Td vaccine (1 - Tdap) 1982 Pneumococcal 50+ years Vaccine (1 of 2 - PCV) 1982 Shingles vaccine (1 of 2) 1982 Lipids 2003 Colonoscopy 2008 Colorectal Cancer Screen 2008 FIT/FOBT: Average risk 2008 Fecal-DNA (Cologuard): Average risk 2008 Sigmoidoscopy/CT colonography 2008 Respiratory Syncytial Virus (RSV) or age 60 yrs+ (1 - Risk 60-74 years 1-dose series) 2023 Annual Wellness Visit (Medicare) 01/30/2025 Flu vaccine (Season Ended) 2025 Prostate Specific Antigen (PSA) Screening or Monitoring 01/30/2026 01/30/2025 GFR test (Diabetes, CKD 3-4, OR last GFR 15-59) 02/06/2026 02/06/2025, 02/05/2025, 02/04/2025, Additional history exists Hepatitis C screen Completed 01/30/2025 Hepatitis A vaccine Aged Out No longe r eligible based on patient's age to complete this topic Hepatitis B vaccine Aged Out No longe r eligible based on patient's age to complete this topic Hib vaccine Aged Out No longer eligi ble based on patient's age to complete this topic Meningococcal (ACWY) vaccine Aged Out No longer eligible based on patient's age to complete this topic Meningococcal B vaccine Aged Out No l onger eligible based on patient's age to complete this topic Polio vaccine Aged Out No longer elig ible based on patient's age to complete this topic Medical Devices Implanted Type Area Ventilating Equipment Installer Device Identifier Shelf Expiration Date Model / Serial / Lot Stent:Urologic al-02/04/2025 Implanted:Qty: 1 on 02/04/2025 by Esau Egan MD Stent:Uro logical Right: Ureter Procedures Procedure Name Priority Date/Time Associated Diagnosis Comments POC GLUCOSE FINGERSTICK Routine 02/06/2025 8:02 AM EDT BASIC METABOLIC PANEL Routine 02/06/2025 6:53 AM EDT POC GLUCOSE FINGERSTICK Routine 02/05/2025 8:04 PM EDT HEMOGLOBIN AND HEMATOCRIT Routine 02/05/2025 5:42 PM EDT POC GLUCOSE FINGERSTICK Routine 02/05/2025 3:55 PM EDT BASIC METABOLIC PANEL STAT 02/05/2025 3:39 PM EDT IR ANTEGRADE PYELOGRAM Routine 10:24 AM EDT POC GLUCOSE FINGERSTICK Routine 02/05/2025 7:33 AM EDT HEMOGLOBIN AND HEMATOCRIT Routine 02/05/2025 6:30 AM EDT HEMOGLOBIN AND HEMATOCRIT Routine 02/04/2025 10:05 PM EDT POC GLUCOSE FINGERSTICK Routine 02/04/2025 8:36 PM EDT POC GLUCOSE FINGERSTICK Routine 02/04/2025 4:30 PM EDT IR GUIDED NEPHROSTOMY CATH PLACEMENT RIGHT Routine 02/04/2025 12:22 PM EDT PROTIME-INR Routine 02/04/2025 9:06 AM EDT POC GLUCOSE FINGERSTICK Routine 02/04/2025 7:54 AM EDT MAGNESIUM Routine 02/04/2025 6:48 AM EDT CBC WITH AUTO DIFFERENTIAL Routine 02/04/2025 6:48 AM EDT BASIC METABOLIC PANEL W/ REFLEX TO MG FOR LOW K Routine 02/04/2025 6:48 AM EDT POC GLUCOSE FINGERSTICK Routine 02/03/2025 4:16 PM EDT POC GLUCOSE FINGERSTICK Routine 02/03/2025 10:58 AM EDT MAGNESIUM Routine 02/03/2025 6:45 AM EDT CBC WITH AUTO DIFFERENTIAL Routine 02/03/2025 6:45 AM EDT BASIC METABOLIC PANEL W/ REFLEX TO MG FOR LOW K Routine 02/03/2025 6:45 AM EDT POC GLUCOSE FINGERSTICK Routine 02/02/2025 7:16 PM EDT POC GLUCOSE FINGERSTICK Routine 02/02/2025 4:24 PM EDT POC GLUCOSE FINGERSTICK Routine 02/02/2025 11:24 AM EDT POC GLUCOSE FINGERSTICK Routine 02/02/2025 7:19 AM EDT MAGNESIUM Routine 02/02/2025 6:00 AM EDT CBC WITH AUTO DIFFERENTIAL Routine 02/02/2025 6:00 AM EDT BASIC METABOLIC PANEL W/ REFLEX TO MG FOR LOW K Routine 02/02/2025 6:00 AM EDT POC GLUCOSE FINGERSTICK Routine 02/01/2025 7:19 PM EDT POC GLUCOSE FINGERSTICK Routine 02/01/2025 4:21 PM EDT APTT Routine 02/01/2025 3:51 PM EDT PROTIME-INR Routine 02/01/2025 3:51 PM EDT FLUORO FOR SURGICAL PROCEDURES Routine 02/01/2025 1:30 PM EDT CYSTOSCOPY RETROGRADE PYELOGRAM 02/01/2025 12:39 PM EDT Ureteral stone Special Needs [facility]. POC GLUCOSE FINGERSTICK Routine 02/01/2025 11:05 AM EDT CBC WITH AUTO DIFFERENTIAL Routine 02/01/2025 9:18 AM EDT BASIC METABOLIC PANEL W/ REFLEX TO MG FOR LOW K Routine 02/01/2025 9:18 AM EDT POC GLUCOSE FINGERSTICK Routine 02/01/2025 7:20 AM EDT POC GLUCOSE FINGERSTICK Routine 01/31/2025 7:38 PM EDT POC GLUCOSE FINGERSTICK Routine 01/31/2025 5:53 PM EDT POC GLUCOSE FINGERSTICK Routine 01/31/2025 12:12 PM EDT PROTEIN, URINE, RANDOM Routine 9:52 AM EDT URINALYSIS WITH MICROSCOPIC Stat [facility] Label print 01/31/2025 9:52 AM EDT POC GLUCOSE FINGERSTICK Routine 01/31/2025 8:20 AM EDT CBC WITH AUTO DIFFERENTIAL Routine 01/31/2025 4:37 AM EDT BASIC METABOLIC PANEL W/ REFLEX TO MG FOR LOW K Routine 01/31/2025 4:37 AM EDT US RENAL COMPLETE Routine 01/30/2025 4:4 1 PM EDT EKG 12-LEAD Routine 01/30/2025 3:29 PM EDT IMMUNOTYPING, SERUM Routine 01/30/2025 2 :26 PM EDT TROPONIN Routine 01/30/2025 2:26 PM EDT BASIC METABOLIC PANEL W/ REFLEX TO MG FOR LOW K Routine 01/30/2025 2:26 PM EDT PSA, DIAGNOSTIC Routine 01/30/2025 2:26 PM EDT ELECTROPHORESIS PROTEIN, SERUM Routine 01/30/2025 2:26 PM EDT KAPPA/LAMBDA QUANTITATIVE FREE LIGHT CHAINS, SERUM Routine 01/30/2025 2:26 PM EDT ANTI-NEUTROPHILIC CYTOPLASMIC ANTIBODY Routine 01/30/2025 2:26 PM EDT JOSE Routine 01/30/2025 2:26 PM EDT C4 COMPLEMENT Routine 01/30/2025 2:26 PM EDT C3 COMPLEMENT Routine 01/30/2025 2:26 PM EDT CREATININE, RANDOM URINE [employer] Label Print 01/30/2025 11:44 AM EDT SODIUM, URINE, RANDOM [employer] Label Print 01/30/2025 11:44 AM EDT HEPATITIS C ANTIBODY Routine 01/30/2025 8:45 AM EDT HEPATITIS B CORE ANTIBODY, TOTAL STAT 01/30/2025 8:45 AM EDT HEPATITIS B SURFACE ANTIGEN STAT 01/30/2025 8:45 AM EDT HEPATITIS B SURFACE ANTIBODY STAT 01/30/2025 8:45 AM EDT XR CHEST PORTABLE STAT 01/30/2025 8:2 5 AM EDT TROPONIN Timed 01/30/2025 5:59 AM EDT CULTURE, URINE [employer] Label Print 01/30/2025 5:19 AM EDT TROPONIN Routine 01/30/2025 4:49 AM EDT CBC WITH AUTO DIFFERENTIAL Routine 01/30/2025 4:49 AM EDT BASIC METABOLIC PANEL W/ REFLEX TO MG FOR LOW K Routine 01/30/2025 4:49 AM EDT RESPIRATORY CARE EVALUATION ONLY Routine 01/30/2025 4:39 AM EDT MRSA DNA PROBE, NASAL [facility] Label Print 01/30/2025 4:30 AM EDT EKG 12-LEAD Routine 01/30/2025 4:16 AM EDT from Last 3 Months Results * POC Glucose Fingerstick (02/06/2025 8:02 AM EDT) Only the most recent of21 resultswithin the time period is included. Pathologist [facility] POC Glucose 88 75 - 110 mg/dL 02/06/2025 8:02 AM EDT [facility] 02/06/2025 8:02 AM EDT 02/06/2025 8:12 AM EDT Jose G Velasquez MD POINT OF CARE TEST ORDERAB LES Final Result [facility] [address] [place] [address], [facility] [phone] * (ABNORMAL) Basic Metabolic Panel (02/06/2025 6:53 AM EDT) Only the most recent of2 resultswithin the time period is included. Sodium 136 136 - 145 mmol/L 02/06/2025 6:53 AM EDT [facility] Potassium 5.0 3.7 - 5.3 mmol/L 02/06/2025 6:53 AM EDT [facility] Chloride 106 98 - 107 mmol/L 02/06/2025 6:53 AM EDT [facility] CO2 20 20 - 31 mmol/L 02/06/2025 6:53 AM EDT [facility] Anion Gap 10 9 - 16 mmol/L 02/06/2025 6:53 AM EDT [facility] Glucose 99 74 - 99 mg/dL 02/06/2025 6:53 AM EDT [facility] BUN 31(H) 8 - 23 mg/dL 02/06/2025 6:53 AM EDT [facility] Creatinine 1.8(H) 0.7 - 1.2 mg/dL 02/06/2025 6:53 AM EDT [facility] Est, Glom Filt Rate 42(L) >60 mL/min/1. 73m2 02/06/2025 6:53 AM EDT [facility] Comment: These results are not intended for [...] following therapy that affects renal tubular secretion. Calcium 8.4(L) 8.6 - 10.4 mg/dL 02/06/2025 6:53 AM EDT [facility] BLOOD SPECIMEN / Unknown 02/06/2025 6:53 AM EDT 02/06/2025 7:22 AM EDT us Pantera Blackwell MD CHEMISTRY ORDERABLES Final R esult [facility] [address] [place] [address], [facility] [phone] * (ABNORMAL) Hemoglobin and Hematocrit (02/05/2025 5:42 PM EDT) Only the most recent of3 resultswithin the time period is included. Hemoglobin 8.2(L) 13.0 - 17.0 g/dL 02/05/2025 5:42 PM EDT [facility] Hematocrit 27.9(L) 40.7 - 50.3 % 02/05/2025 5:42 PM EDT [facility] BLOOD SPECIMEN / Unknown 02/05/2025 5:42 PM EDT 02/05/2025 6:25 PM EDT us Rhys Lucero DO HEMATOLOGY ORDERABLES Final Re sult [facility] [address] [place] [address], [facility] [phone] * IR ANTEGRADE PYELOGRAM (02/05/2025 10:24 AM EDT) Anatomical Region Laterality Modality Abdomen, Pelvis X-Ray Angiograph y 02/05/2025 5:06 PM EDT Impressions 02/06/2025 9:21 AM EDT Right nephrostogram shows a patent right ureteral stent. Nephrostomy tube was removed uneventfully. Narrative 02/06/2025 9:21 AM EDT PROCEDURE: RIGHT NEPHROSTOGRAM WITH NEPHROSTOMY TUBE REMOVAL [...] the procedure including risks, benefits, and alternatives. [place] protocol was observed. Sterile gowns, masks, hats and gloves utilized for maximal sterile barrier. Career Technical Education Teacher view shows a right nephrostomy tube in [...] the department in stable condition. EBL: Minimal Procedure Note Esau Egan MD - 02/06/2025 PROCEDURE: RIGHT NEPHROSTOGRAM WITH NEPHROSTOMY TUBE REMOVAL 02/05/2025 HISTORY: ORDERING SYSTEM PROVIDED HISTORY: Rt nephrostogram w/removal ofnephrostomy catheter TECHNOLOGIST PROVIDED HISTORY: Rt nephrostogram w/removal of nephrostomy catheter TECHNIQUE: RIGHT NEPHROSTOGRAM WITH NEPHROSTOMY TUBE REMOVAL CONTRAST: Omnipaque 240 SEDATION: None FLUOROSCOPY DOSE AND TYPE: Radiation Exposure Index: DAP cGy*cm2, 403.94 DESCRIPTION OF PROCEDURE AND FINDINGS: Informed consent was obtained after a detailed explanation of theprocedure including risks, benefits, and alternatives. [place] protocol was observed. Sterile gowns, masks, hats and gloves utilized for maximalsterile barrier. Career Technical Education Teacher view shows a right nephrostomy tube in place as well asa right ureteral stent. Nephrostomy tube site was prepped and draped in standard sterile fashion. The right nephrostomy was injected under fluoroscopy and opacifies the collecting system and ureter. Contrastflows into the bladder. The ureteral stent appears patent. The nephrostomytube was then cut and removed over a guidewire uneventfully. Sterile gauze dressing was applied. There are no immediate complications. Thepatient left the department in stable condition. EBL: Minimal IMPRESSION: Right nephrostogram shows a patent right ureteral stent. Nephrostomy tube was removed uneventfully. us Esau Egan MD IMG IR ORDERABLES Final Result * IR GUIDED NEPHROSTOMY CATH PLACEMENT RIGHT (02/04/2025 12:22 PM EDT) Anatomical Region Laterality Modality Abdomen X-Ray Angiograph y 02/04/2025 5:21 PM EDT Impressions 02/05/2025 6:26 PM EDT Successful percutaneous right nephrostomy tube placement. Successful antegrade right ureteral stent placement; 8 Fijian by 24 cm double-J stent was deployed. Narrative 02/05/2025 6:26 PM EDT PROCEDURE: PERCUTANEOUS ANTEGRADE PYELOGRAM RIGHT PERCUTANEOUS NEPHROSTOMY [...] the procedure including risks, benefits, and alternatives. [place] protocol was followed. Patient is on intravenous [...] over the guidewire. Through the outer 6 Fijian cannula an angled catheter and Glidewire were advanced and negotiated into the ureter. Guidewire and catheter were directed into the bladder. Small amount of contrast injected verifying catheter tip in the bladder. There is a Hummel catheter in place. An Amplatz guidewire was placed through the catheter. An 8 Fijian by 24 cm double-J ureteral stent was deployed with the distal loop formed in the bladder. The proximal loop was formed in the renal pelvis. Small amount of contrast injected verifying appropriate catheter positioning and patency. An 8 Fijian nephrostomy tube was placed over the guidewire [...] stable condition. EBL: Less than 5 mL. Procedure Note Esau Egan MD - 02/05/2025 PROCEDURE: PERCUTANEOUS ANTEGRADE PYELOGRAM RIGHT PERCUTANEOUS NEPHROSTOMY TUBE PLACEMENT WITH ANTEGRADE URETERALSTENT PLACEMENT ULTRASOUND GUIDANCE 02/04/2025 HISTORY: ORDERING SYSTEM PROVIDED HISTORY: Right nephrostomy tube placement, obstructing stone. TECHNOLOGIST PROVIDED HISTORY: Right nephrostomy tube placement, obstructing stone. Please place ureteral stent if possible. SEDATION: None CONTRAST: Omnipaque 240 FLUOROSCOPY DOSE AND TYPE OR TIME AND EXPOSURES: 6 minutes; DAP 1004 cGy cm2 TECHNIQUE AND FINDINGS Informed consent was obtained following detailed description of theprocedure including risks, benefits, and alternatives. [place] protocol was followed. Patient is on intravenous antibiotics. The patient's backright flank was prepped and draped in sterile fashion and local anesthesia was achieved with lidocaine. An Accustick needle was advanced into aposterior lower pole calyx using ultrasound and fluoroscopic guidance. Urine was aspirated and a small amount of contrast injected opacifying a dilated collecting system and visualized ureter. 018 guidewire was advancedthrough the needle. Mini access kit transitional dilator was placed over the guidewire. Through the outer 6 Fijian cannula an angled catheter and Glidewire were advanced and negotiated into the ureter. Guidewire and catheter were directed into the bladder. Small amount of contrastinjected verifying catheter tip in the bladder. There is a Hummel catheter inplace. An Amplatz guidewire was placed through the catheter. An 8 Fijian by 24cm double-J ureteral stent was deployed with the distal loop formed in the bladder. The proximal loop was formed in the renal pelvis. Small amountof contrast injected verifying appropriate catheter positioning and patency.An 8 Fijian nephrostomy tube was placed over the guidewire and left in placefor access. As internal drainage was established the tube was cappedexternally. The catheter was sutured to the skin and secured in place with a sterile gauze dressing. The patient will be scheduled for a nephrostogram with possible nephrostomy tube removal. There are no immediatecomplications. The patient left the department in stable condition. EBL: Less than 5mL. IMPRESSION: Successful percutaneous right nephrostomy tube placement. Successful antegrade right ureteral stent placement; 8 Fijian by 24 cm double-J stent was deployed. Miller Pérez MD IM IR ORDERABLES Final Result * Protime-INR (02/04/2025 9:06 AM EDT) Only the most recent of2 resultswithin the time period is included. Protime 13.3 11.7 - 14.9 sec 02/04/2025 9:06 AM EDT [facility] INR 1.0 02/04/2025 9:06 AM EDT [facility] Comment: Therapeutic Range: Moderate Anticoagulant Intensity: INR = 2.0-3.0 High Anticoagulant Intensity: INR = 2.5-3.5 Blood BLOOD SPECIMEN / Unknown 02/04/2025 9:06 AM EDT 02/04/2025 9:28 AM EDT us Des Corona MD HEMATOLOGY ORDERABLES Final Resu lt [facility] [address] [phone] * (ABNORMAL) Basic Metabolic Panel w/ Reflex to MG (02/04/2025 6:48 AM EDT) Only the most recent of7 resultswithin the time period is included. Sodium 138 136 - 145 mmol/L 02/04/2025 6:48 AM EDT [facility] Potassium 4.5 3.7 - 5.3 mmol/L 02/04/2025 6:48 AM EDT [facility] Chloride 107 98 - 107 mmol/L 02/04/2025 6:48 AM EDT [facility] CO2 18(L) 20 - 31 mmol/L 02/04/2025 6:48 AM EDT [facility] Anion Gap 13 9 - 16 mmol/L 02/04/2025 6:48 AM EDT [facility] Glucose 100(H) 74 - 99 mg/dL 02/04/2025 6:48 AM EDT [facility] BUN 29(H) 8 - 23 mg/dL 02/04/2025 6:48 AM EDT [facility] Creatinine 2.1(H) 0.7 - 1.2 mg/dL 02/04/2025 6:48 AM EDT [facility] Est, Glom Filt Rate 35(L) >60 mL/min/1. 73m2 02/04/2025 6:48 AM EDT [facility] Comment: These results are not intended for [...] following therapy that affects renal tubular secretion. Calcium 8.8 8.6 - 10.4 mg/dL 02/04/2025 6:48 AM EDT [facility] Blood BLOOD SPECIMEN / Unknown 02/04/2025 6:48 AM EDT 02/04/2025 7:06 AM EDT us Des Corona MD CHEMISTRY ORDERABLES Final Resul t [facility] [address] [phone] * (ABNORMAL) CBC with Auto Differential (02/04/2025 6:48 AM EDT) Only the most recent of6 resultswithin the time period is included. WBC 8.1 3.5 - 11.3 k/uL 02/04/2025 6:48 AM EDT [facility] RBC 3.66(L) 4.21 - 5.77 m/uL 02/04/2025 6:48 AM EDT [facility] Hemoglobin 8.8(L) 13.0 - 17.0 g/dL 02/04/2025 6:48 AM EDT [facility] Hematocrit 29.4(L) 40.7 - 50.3 % 02/04/2025 6:48 AM EDT [facility] MCV 80.3(L) 82.6 - 102.9 fL 02/04/2025 6:48 AM EDT [facility] MCH 24.0(L) 25.2 - 33.5 pg 02/04/2025 6:48 AM EDT [facility] MCHC 29.9 28.4 - 34.8 g/dL 02/04/2025 6:48 AM EDT [facility] RDW 14.6(H) 11.8 - 14.4 % 02/04/2025 6:48 AM EDT [facility] Platelets 297 138 - 453 k/uL 02/04/2025 6:48 AM EDT [facility] MPV 9.6 8.1 - 13.5 fL 02/04/2025 6:48 AM EDT [facility] NRBC Automated 0.0 0.0 per 100 WBC 02/04/2025 6:48 AM EDT [facility] Neutrophils % 59 36 - 65 % 02/04/2025 6:48 AM EDT [facility] Lymphocytes % 22(L) 24 - 43 % 02/04/2025 6:48 AM EDT [facility] Monocytes % 7 3 - 12 % 02/04/2025 6:48 AM EDT [facility] Eosinophils % 9(H) 1 - 4 % 02/04/2025 6:48 AM EDT [facility] Basophils % 2 0 - 2 % 02/04/2025 6:48 AM EDT [facility] Immature Granulocytes % 1(H) 0 % 02/04/2025 6:48 AM EDT [facility] Neutrophils Absolute 4.81 1.50 - 8.10 k/uL 02/04/2025 6:48 AM EDT [facility] Lymphocytes Absolute 1.82 1.10 - 3.70 k/uL 02/04/2025 6:48 AM EDT [facility] Monocytes Absolute 0.57 0.10 - 1.20 k/uL 02/04/2025 6:48 AM EDT [facility] Eosinophils Absolute 0.76(H) 0.00 - 0.44 k/uL 02/04/2025 6:48 AM EDT [facility] Basophils Absolute 0.14 0.00 - 0.20 k/uL 02/04/2025 6:48 AM EDT [facility] Immature Granulocytes Absolute 0.04 0.00 - 0.30 k/uL 02/04/2025 6:48 AM EDT [facility] RBC Morphology ANISOCYTOSIS PRESENT MICROCYTOSIS PRESENT 02/04/2025 6:48 AM EDT [facility] Blood BLOOD SPECIMEN / Unknown 02/04/2025 6:48 AM EDT 02/04/2025 7:06 AM EDT us Des Corona MD HEMATOLOGY ORDERABLES Final Resu lt [facility] [address] [place] [address], [facility] [phone] * Magnesium (02/04/2025 6:48 AM EDT) Only the most recent of3 resultswithin the time period is included. Magnesium 1.8 1.6 - 2.4 mg/dL 02/04/2025 6:48 AM EDT [facility] Blood BLOOD SPECIMEN / Unknown 02/04/2025 6:48 AM EDT 02/04/2025 7:06 AM EDT Des Corona MD CHEMISTRY ORDERABLES Final Resul t Performing Organization Address [facility] Co de Phone Number [address] [phone] * APTT (02/01/2025 3:51 PM EDT) APTT 30.2 23.0 - 36.5 sec 02/01/2025 3:51 PM EDT [facility] Comment: IV Heparin Therapy Range: 66.0-92.0 sec Blood BLOOD SPECIMEN / Unknown 02/01/2025 3:51 PM EDT 02/01/2025 3:59 PM EDT us Miller Pérez MD HEMATOLOGY ORDERABLES Final Res ult Performing Organization Address [facility] Co de Phone Number [facility] [address] [place] [address], [facility] [phone] * FLUORO FOR SURGICAL PROCEDURES (02/01/2025 1:30 PM EDT) Narrative [facility] - 02/01/2025 1:30 PM EDT Radiology exam is complete. No Radiologist dictation. Please follow up with ordering provider. us Dell Dodge MD IMG FLUOROSCOPY ORDERABLES Fin al Result Performing Organization Address City/[facility]/ZIP Co de Phone Number [facility] * Protein, urine, random (01/31/2025 9:52 AM EDT) Total Protein, Urine 482 mg/dL 01/31/2025 9:52 AM EDT [facility] Comment:No normal range esta blished. 01/31/2025 9:52 AM EDT 01/31/2025 9:52 AM EDT us Des Corona MD URINE ORDERABLES Final Result [facility] [address] [place] [address], [facility] [phone] * (ABNORMAL) Urinalysis with Microscopic (01/31/2025 9:52 AM EDT) Color, UA Red(A) Yellow 01/31/2025 9:52 AM EDT [facility] Comment:INTERPRET WITH CAUTI ON DUE TO INTENSE COLOR OF URINE. Turbidity UA Cloudy(A) Clear 01/31/2025 9:52 AM EDT [facility] Glucose, Ur NEGATIVE NEGATIVE mg/dL 01/31/2025 9:52 AM EDT [facility] Bilirubin, Urine NEGATIVE NEGATIVE 01/31/2025 9:52 AM EDT [facility] Ketones, Urine NEGATIVE NEGATIVE mg/dL 01/31/2025 9:52 AM EDT [facility] Specific [place], UA 1.011 1.005 - 1.030 01/31/2025 9:52 AM EDT [facility] Urine Hgb LARGE(A) NEGATIVE 01/31/2025 9:52 AM EDT [facility] pH, Urine 7.0 5.0 - 8.0 01/31/2025 9:52 AM EDT [facility] Protein, UA 3+(A) NEGATIVE mg/dL 01/31/2025 9:52 AM EDT [facility] Urobilinogen, Urine Normal 0.0 - 1.0 EU/dL 01/31/2025 9:52 AM EDT [facility] Nitrite, Urine NEGATIVE NEGATIVE 01/31/2025 9:52 AM EDT [facility] Leukocyte Esterase, Urine TRACE(A) NEGATIVE 01/31/2025 9:52 AM EDT [facility] WBC, UA 2 TO 5 0 - 5 /HPF 01/31/2025 9:52 AM EDT [facility] RBC, UA TOO NUMEROUS TO COUNT 0 - 2 /HPF 01/31/2025 9:52 AM EDT [facility] Epithelial Cells, UA None 0 - 5 /HPF 01/31/2025 9:52 AM EDT [facility] Urine URINE SPECIMEN / Unknown 01/31/2025 9:52 AM EDT 01/31/2025 9:52 AM EDT us Des Corona MD URINE ORDERABLES Final Result [facility] Machinio [address] [place] [address], [facility] [phone] * US RENAL COMPLETE (01/30/2025 4:41 PM EDT) Anatomical Region Laterality Modality Abdomen Ultrasound 01/30/2025 7:08 PM EDT Impressions 01/30/2025 7:10 PM EDT Mild to moderate bilateral hydronephrosis. The kidneys appear otherwise sonographically normal. Narrative 01/30/2025 7:10 PM EDT EXAMINATION: RETROPERITONEAL ULTRASOUND OF THE KIDNEYS AND [...] There is a Hummel catheter in place. Procedure Note Rigoberto Dean MD - 01/30/2025 EXAMINATION: RETROPERITONEAL ULTRASOUND OF THE KIDNEYS AND URINARY BLADDER 01/30/2025 COMPARISON: None HISTORY: ORDERING SYSTEM PROVIDED HISTORY: increased creatinine TECHNOLOGIST PROVIDED HISTORY: increased creatinine FINDINGS: Kidneys: The right kidney measures 10.8 cm in length and the left kidney ljjxttir00.0 cm in length. There is mild to moderate bilateral hydronephrosis. There is no renal cortical thinning or evident renal stone. No suspicious renalparenchymal lesion is identified. Renal cortical echotexture appears normal. Bladder: Bladder is empty. There is a Hummel catheter in place. IMPRESSION: Mild to moderate bilateral hydronephrosis. The kidneys appear otherwise sonographically normal. us Maximo France MD IMG US ORDERABLES Final Result * EKG 12 Lead (01/30/2025 3:29 PM EDT) Only the most recent of2 resultswithin the time period is included. Ventricular Rate 98 BPM [facility] MUSE Atrial Rate 98 BPM [facility] M[facility] P-R Interval 126 ms [facility] MUSE QRS Duration 76 ms [facility]USE Q-T Interval 358 ms [facility] MUSE QTc Calculation (Bazett) 457 ms [facility] MUSE P [facility] 9 degrees [facility] R [facility] 10 degrees [facility] MUSE T [facility] 58 degrees [facility] STV MUSE 01/30/2025 3:29 PM EDT Narrative [facility] STV MUSE - 01/31/2025 10:23 AM EDT Normal sinus rhythm Normal ECG When compared with ECG of 30-JAN-2025 04:16, Sinus rhythm has replaced Ectopic atrial rhythm Left posterior fascicular block is no longer Present Nonspecific T wave abnormality, worse in Lateral leads Procedure Note Toribio Olsen DO / Celeste Carnes MD - 01/31/2025 Normal sinus rhythm Normal ECG When compared with ECG of 30-JAN-2025 04:16, Sinus rhythm has replaced Ectopic atrial rhythm Left posterior fascicular block is no longer Present Nonspecific T wave abnormality, worse in Lateral leads Julia Carr MD ECG ORDERABLES Edited Resu lt - Final PN STV MUSE * Immunotyping, Serum (01/30/2025 2:26 PM EDT) ITYP Interpretation Immunotyping is negative for monoclonal immunoglobulin. 01/30/2025 2:26 PM EDT [facility] Pathologist Review Reviewed by pathologist: Corinna Vanessa M.D. 01/30/2025 2:26 PM EDT [facility] 01/30/2025 2:26 PM EDT 01/30/2025 2:38 PM EDT Maximo France MD CHEMISTRY ORDERABLES Final Res ult Performing Organization Address [facility] [place] [address], [facility] [phone] * (ABNORMAL) [place]/Lambda Quantitative Free Light Chains, Serum (01/30/2025 2:26 PM EDT) [place] Free Light Chains QNT 95.7(H) <20.7 mg/L 01/30/2025 2:26 PM EDT [facility] Comment: Performed using Diazyme reagent on Hoa Tariq Pro. Results obtained with different assay methods cannot be used interchangeably. Lambda Free Light Chains QNT 92.6(H) 4.2 - 27.7 mg/L 01/30/2025 2:26 PM EDT [facility] Comment: Performed using Diazyme reagent on Hoa Tariq Pro. Results obtained with different assay methods cannot be used interchangeably. Free [place]/Lambda Ratio 1.03 0.22 - 1.74 01/30/2025 2:26 PM EDT [facility] BLOOD SPECIMEN / Unknown 01/30/2025 2:26 PM EDT 01/30/2025 2:38 PM EDT Maximo France MD CHEMISTRY ORDERABLES Final Res ult Performing Organization Address [facility] Phone Number [facility] [address] [place] [address], [facility] [phone] * (ABNORMAL) PSA, Diagnostic (01/30/2025 2:26 PM EDT) PSA 504.00(H) 0.00 - 4.00 ng/mL 01/30/2025 2:26 PM EDT [facility] Comment: The Hoa ECLIA assay is used. Results obtained with different assay methods cannot be used interchangeably. 01/30/2025 2:26 PM EDT 01/30/2025 2:39 PM EDT Renato Bullard MD CHEMISTRY ORDERABLES Final Resul t Performing Organization Address [facility] Co de Phone Number [facility] [address] [place] [address] * (ABNORMAL) Troponin (01/30/2025 2:26 PM EDT) Only the most recent of3 resultswithin the time period is included. [facility] Troponin, High Sensitivity 86(HH) 0 - 22 ng/L 01/30/2025 2:26 PM EDT [facility] Comment: High Sensitivity Troponin values cannot be compared with other Troponin methodologies. Previous Alert Value Reported Blood BLOOD SPECIMEN / Unknown 01/30/2025 2:26 PM EDT 01/30/2025 2:39 PM EDT Julia Carr MD CHEMISTRY ORDERABLES Final Result Performing Organization Address [facility] Co de Phone Number [address] [phone] * Anti-Neutrophilic Cytoplasmic Antibody (01/30/2025 2:26 PM EDT) [facility] ANCA Myeloperoxidase <0.3 0.0 - 3.5 AU/mL 01/30/2025 2:26 PM EDT [facility] Comment: Reference Range: <3.5 Negative 3.5-5.0 Equivocal >5.0 Positive ANCA Proteinase 3 <0.7 0.0 - 2.0 AU/mL 01/30/2025 2:26 PM EDT [facility] Comment: Reference Range: <2.0 Negative 2.0-3.0 Equivocal >3.0 Positive BLOOD SPECIMEN / Unknown 01/30/2025 2:26 PM EDT 01/30/2025 2:38 PM EDT Maximo France MD IMMUNOLOGY ORDERABLES Final Re sult Performing Organization Address [facility] Co de Phone Number [address] [phone] * C3 Complement (01/30/2025 2:26 PM EDT) [facility] Complement C3 162 90 - 180 mg/dL 01/30/2025 2:26 PM EDT [facility] BLOOD SPECIMEN / Unknown 01/30/2025 2:26 PM EDT 01/30/2025 2:38 PM EDT us Maximo France MD CHEMISTRY ORDERABLES Final Res ult Performing Organization Address [facility] Co de Phone Number [address] [phone] * C4 Complement (01/30/2025 2:26 PM EDT) Complement C4 31 10 - 40 mg/dL 01/30/2025 2:26 PM EDT [facility] BLOOD SPECIMEN / Unknown 01/30/2025 2:26 PM EDT 01/30/2025 2:38 PM EDT us Maximo France MD CHEMISTRY ORDERABLES Final Res ult Performing Organization Address [facility] Co de Phone Number [address] [phone] * JOSE (01/30/2025 2:26 PM EDT) JOSE NEGATIVE NEGATIVE 01/30/2025 2:26 PM EDT [facility] LENNIE Antibodies Screen 0.2 <0.7 U/mL 01/30/2025 2:26 PM EDT [facility] Comment: Reference Range: <0.7 Negative 0.7-1.0 Equivocal >1.0 Positive LENNIE Screen includes U1RNP,RNP70,Sm,Ro(SS-A),La(SS-B),CENP,Scl-70,Jossy-1 Anti ds DNA <0.5 <10.0 IU/mL 01/30/2025 2:26 PM EDT [facility] Comment: Reference Range: <10.0 Negative 10.0-15.0 Equivocal >15.0 Positive BLOOD SPECIMEN / Unknown 01/30/2025 2:26 PM EDT 01/30/2025 2:38 PM EDT Maximo France MD IMMUNOLOGY ORDERABLES Final Re sult [facility] [address] [place] [address], [facility] [phone] * (ABNORMAL) Electrophoresis Protein, Serum (01/30/2025 2:26 PM EDT) Total Protein 7.0 6.6 - 8.7 g/dL 01/30/2025 2:26 PM EDT [facility] Albumin (calculated) 3.3 3.2 - 5.2 g/dL 01/30/2025 2:26 PM EDT [facility] Albumin % 47(L) 56 - 66 % 01/30/2025 2:26 PM EDT [facility] Srtke-8-Gesozsr n 0.6(H) 0.1 - 0.4 g/dL 01/30/2025 2:26 PM EDT [facility] Alpha 1 % 9(H) 3 - 5 % 01/30/2025 2:26 PM EDT [facility] Bafno-2-Avwzdcv n 0.9 0.5 - 0.9 g/dL 01/30/2025 2:26 PM EDT [facility] Alpha 2 % 13(H) 7 - 12 % 01/30/2025 2:26 PM EDT [facility] Beta Globulin 1.0 0.7 - 1.4 g/dL 01/30/2025 2:26 PM EDT [facility] Beta Percent 14(H) 8 - 13 % 01/30/2025 2:26 PM EDT [facility] Gamma Globulin 1.2 0.5 - 1.5 g/dL 01/30/2025 2:26 PM EDT [facility] Gamma Globulin % 18 11 - 19 % 01/30/2025 2:26 PM EDT [facility] Total Prot. Sum 7.0 6.3 - 8.2 g/dL 01/30/2025 2:26 PM EDT [facility] Total Prot. Sum,% 101 98 - 102 % 01/30/2025 2:26 PM EDT [facility] Protein Electrophoresis , Serum Alpha 1 globulins are elevated. Usually occurs with acute phase 01/30/2025 2:26 PM EDT [facility] Comment: response. May be observed in a variety of conditions associated with acute tissue damage/necrosis and/or acute infection/inflammation. Immunotyping is negative for monoclonal immunoglobulin. Pathologist Reviewed by pathologist: Corinna Vanessa M.D. 01/30/2025 2:26 PM EDT [facility]OD SPEC[facility] / Unknown 01/30/2025 2:26 PM EDT 01/30/2025 2:38 PM EDT us Maximo France MD IMMUNOLOGY ORDERABLES Final Re sult Performing Organization Address [facility] de Phone Number [facility] [address] [place] [address], [facility] [phone] * Sodium, urine, random (01/30/2025 11:44 AM EDT) Sodium, Ur 112 mmol/L 01/30/2025 11:44 AM EDT [facility] Comment:No normal range esta blished. Urine 01/30/2025 11:4 4 AM EDT 01/30/2025 11:44 AM EDT us Maximo France MD URINE ORDERABLES Final Result Performing Organization Address [facility] de Phone Number [facility] [address] [place] [address], [facility] [phone] * (ABNORMAL) Creatinine, Random Urine (01/30/2025 11:44 AM EDT) Creatinine, Ur 26.4(L) 39.0 - 259.0 mg/dL 01/30/2025 11:44 AM EDT [facility] Comment:Reference range defi teddy for 1st morning urine Urine 01/30/2025 11:4 4 AM EDT 01/30/2025 11:44 AM EDT us Maximo France MD URINE ORDERABLES Final Result Performing Organization Address [facility] de Phone Number [facility] [address] [place] [address], [facility] [phone] * Hepatitis C Antibody (01/30/2025 8:45 AM EDT) Hepatitis C Ab NONREACTIVE NONREACTIVE 01/31/20 8:45 AM EDT [facility] Comment: The hepatitis C procedure used in [...] recommended by ordering HCV RNA by PCR. Blood BLOOD SPECIMEN / Unknown 01/30/2025 8:45 AM EDT 01/30/2025 8:50 AM EDT us Maximo France MD IMMUNOLOGY ORDERABLES Final Re sult Performing Organization Address [facility]/ZIP Co de Phone Number [facility] [address] [place] [address] * Hepatitis B core antibody, total (01/30/2025 8:45 AM EDT) Hep B Core Total Ab NONREACTIVE NONREACTIVE 01/30/2025 8:45 AM EDT [facility] Blood BLOOD SPECIMEN / Unknown 01/30/2025 8:45 AM EDT 01/30/2025 8:50 AM EDT us Maximo France MD IMMUNOLOGY ORDERABLES Final Re sult [facility] [address] [place] [address] * Hepatitis B surface antibody (01/30/2025 8:45 AM EDT) Hep B S Ab <3.50 <10 mIU/mL 01/30/2025 8:45 AM EDT [facility] Comment: REFERENCE RANGE: <10.0 NON-REACTIVE/NOT IMMUNE >=10.0 REACTIVE/IMMUNE Blood BLOOD SPECIMEN / Unknown 01/30/2025 8:45 AM EDT 01/30/2025 8:50 AM EDT us Maximo France MD IMMUNOLOGY ORDERABLES Final Re sult Performing Organization Address City/[facility]/ZIP Co de Phone Number [facility] [address] [place] [address], [facility] [phone] * Hepatitis B surface antigen (01/30/2025 8:45 AM EDT) Hepatitis B Surface Ag NONREACTIVE NONREACTIVE 01/30/2025 8:45 AM EDT [facility] Blood BLOOD SPECIMEN / Unknown 01/30/2025 8:45 AM EDT 01/30/2025 8:50 AM EDT us Maximo France MD IMMUNOLOGY ORDERABLES Final Re sult Performing Organization Address [facility] de Phone Number [facility] [address] [place] [address], [facility] [phone] * XR CHEST PORTABLE (01/30/2025 8:25 AM EDT) Anatomical Region Laterality Modality Chest Computed Radiogr aphy 01/30/2025 10:2 7 AM EDT Impressions 01/30/2025 10:28 AM EDT Right jugular central venous catheter terminates in the right atrium Bandlike opacity left parahilar region suggesting subsegmental atelectasis Narrative 01/30/2025 10:28 AM EDT EXAMINATION: ONE XRAY VIEW OF THE CHEST 01/30/2025 8:15 am COMPARISON: None. HISTORY: ORDERING SYSTEM PROVIDED HISTORY: right CVC insertion TECHNOLOGIST PROVIDED HISTORY: right CVC insertion FINDINGS: Right jugular central venous catheter terminates in the right atrium. Heart size within normal limits. Bandlike opacity left parahilar region. No pneumothorax. No pleural effusion. Procedure Note Kaushik Foster MD - 01/30/2025 EXAMINATION: ONE XRAY VIEW OF THE CHEST 01/30/2025 8:15 am COMPARISON: None. HISTORY: ORDERING SYSTEM PROVIDED HISTORY: right CVC insertion TECHNOLOGIST PROVIDED HISTORY: right CVC insertion FINDINGS: Right jugular central venous catheter terminates in the right atrium.Heart size within normal limits. Bandlike opacity left parahilar region. No pneumothorax. No pleural effusion. IMPRESSION: Right jugular central venous catheter terminates in the right atrium Bandlike opacity left parahilar region suggesting subsegmentalatelectasis Zaida Arzate MD IMG DIAGNOSTIC IMAGING ORDERABLES Final Result * Culture, Urine (01/30/2025 5:19 AM EDT) Specimen Description .CLEAN CATCH URINE 01/30/2025 5:19 AM EDT [facility] Special Requests Site: Urine 01/30/2025 5:19 AM EDT [facility] Culture NO GROWTH 01/30/2025 5:19 AM EDT [facility] Urine URINE SPECIMEN / Unknown 01/30/2025 5:19 AM EDT 01/30/2025 5:19 AM EDT Sumit George DO MICROBIOLOGY - GENERAL ORDERA BLES Final Result Performing Organization Address [facility] Co de Phone Number [facility] [address] [place] [address], [facility] [phone] * MRSA DNA Probe, Nasal (01/30/2025 4:30 AM EDT) Specimen Description .NASAL SWAB 01/30/2025 4:30 AM EDT [facility] MRSA, DNA, Nasal NEGATIVE NEGATIVE 01/31/20 4:30 AM EDT [facility] Comment: NEGATIVE: MRSA DNA not detected by nucleic acid amplification. Results should be used as an adjunct to nosocomial control efforts to identify patients needing enhanced precautions. The test is not intended to identify patients with staphylococcal infections. Results should not be used to guide or monitor treatment for MRSA infections. Nasal 01/30/2025 4:30 AM EDT 01/30/2025 4:30 AM EDT Sumit George DO MICROBIOLOGY - GENERAL ORDERA BLES Final Result [facility] VASQUEZ [address] [place] [address], [facility] [phone] from Last 3 Months Insurance MEDICARE MEDICARE MEDICARE Advance Directives * Full Code (Latest Code Status on File) Date Activated Date Inactivated Comments 01/30/2025 4:39 AM 02/06/2025 2:29 PM * Full Code Date Activated Date Inactivated Comments 01/30/2025 4:39 AM 01/30/2025 4:39 AM Healthcare Agents on File Name Relationship Healthcare Agent [facility] Communication Ming Correa Child Primary Decision Maker Care Teams Electron Beam Photo Mask Maker Relationship Specialty Start Date End Date German So DO [address] [place] [address] PCP - General Emergency Medicine 02/21/23
--- OUTSIDE RECORDS SUMMARY | 2025-04-05 12:35 | XMS_ITS | Clinical Summary ---
Author Organization [facility] Address [address] [place] [address] Care Team Providers Care Care Coordinator Name Role Phone Jonah Betts MD Unavailable [phone] Maryanne Tavarez PA-C Unavailable [phone] Thompson Bell DO Unavailable Anne Tran RN Unavailable Unavailable Allergies Active Allergy Reactions Criticality Noted Date Comments Hydrocodone-Acetaminoph en Unknown 04/24/2019 Patient is on oxycodone and hydromorphone outpatient Medications diclofenac, EC, (VOLTAREN) 75 mg EC tablet Take 1 tablet by mouth twice daily. 60 tablet 1 02/16/20 22 Active enzalutamide (XTANDI) 80 mg tablet TAKE 2 TABLETS (160 MG) BY MOUTH ONCE DAILY 60 tablet 2 02/13/20 23 Active aspirin, enteric coated (ECOTRIN LOW STRENGTH) 81 mg EC tablet Take 1 tablet by mouth twice daily for 14 days. 28 tablet 03/16/20 23 Active ascorbic acid, vitamin C, (VITAMIN C) 500 mg tablet Take 1 tablet by mouth once daily. 30 tablet 02/17/20 23 Active gabapentin (NEURONTIN) 300 mg capsule Take 2 capsules by mouth three times daily for 90 days. 180 capsule 2 05/27/20 22 023 Discontinued(Ot her) mirtazapine (REMERON) 15 mg tablet Take 1 tablet by mouth daily at bedtime. 30 tablet 05/27/20 [address] (PROTONIX) 40 mg tablet Take 1 tablet by mouth once daily. 30 tablet 1 05/27/20 22 023 Discontinued tamsulosin (FLOMAX) 0.4 mg Take 2 capsules by mouth daily 30 minutes after the same meal each day. 180 capsule 11 05/27/20 22 023 Discontinued Active Problems Problem Noted Date Diagnosed Date Severe protein-calorie malnutrition 01/26/2023 Nicotine dependence 01/24/2023 Assessment & Plan (01/24/2023 5:07 AM EDT): Assessment: Current 1 PPD smoker PLAN: - Declined nicotine patch; reassess as indicated - Smoking cessation education Other chronic pain 01/24/2023 Assessment & Plan (01/26/2023 1:45 PM EDT): Assessment: Endorses MS Contin, Dilaudid use in past (not currently taking) Gabapentin TID; Pain currently well-controlled post-op PLAN: - Gabapentin 300 mg q8 - Monitor pain levels - acetaminophen 1000 mg q6 - oxycodone 5-10 q6 PRN - fentanyl 50 mcg IV PRN Assessment & Plan (01/25/2023 9:03 AM EDT): Assessment: Endorses MS Contin, Dilaudid use in past (not currently taking) Gabapentin TID; Pain currently well-controlled post-op PLAN: - Gabapentin held - Monitor pain levels - acetaminophen 650 q6, consider increasing to 1000 mg q6 - oxycodone 5-10 q6 PRN - fentanyl 50 mcg IV q1 hr PRN for BTP Assessment & Plan (01/24/2023 12:31 PM EDT): Assessment: Pain currently well-controlled in immediate post-operative period PLAN: -acetaminophen 650 q6 -oxycodone 5-10 q6 PRN -one dose dilaudid 0.5 mg -fentanyl 50 mcg IV q1 hr PRN for BTP Assessment & Plan (01/24/2023 5:55 AM EDT): Assessment: Endorses MS Contin, Dilaudid use in past (not currently taking) Gabapentin TID PLAN: - Gabapentin held - Monitor pain levels - Consider multimodal regimen postoperatively VALERIA (acute kidney injury) 01/24/2023 Assessment & Plan (01/26/2023 1:48 PM EDT): Assessment: Creat upon admission 1.84. Prerenal secondary to volume depletion. Within normal range the most recent creatiine PLAN: - Trend daily labs - Avoid nephrotoxic agents - Renally dose medications - Hummel in place. Check I/o Assessment & Plan (01/24/2023 12:33 PM EDT): Assessment: Cr 1.84 from 0.91, likely secondary to acute infection PLAN: -Follow-up AM BMP Assessment & Plan (01/25/2023 9:04 AM EDT): Assessment: No recent labs Creat upon admission 1.84 Prerenal secondary to volume depletion PLAN: - Trend daily labs - Avoid nephrotoxic agents - Renally dose medications - mIVF - Strict I/O - Hummel in place, UOP adequate Hyperkalemia 01/24/2023 Assessment & Plan (01/26/2023 1:51 PM EDT): Assessment: K of 5.8 on 01/24, s/p insulin in D10 water, no EKG changes. Problem resolved. PLAN: - Continue to monitor Assessment & Plan (01/25/2023 9:05 AM EDT): Assessment: -K of 5.8 on 01/24, s/p insulin in D10 water -no EKG changes -improved to 4.3 PLAN: -continue to monitor Necrotizing fasciitis 01/23/2023 Assessment & Plan (01/26/2023 1:43 PM EDT): Assessment: OSH CT demonstrated Edema, swelling and foci of gas involving the left thigh intramuscular compartment, most significant along the vastus lateralis muscle. Findings suspicious for necrotizing fasciits. Transferred from [place] to [facility] for further surgical evaluation. Incision and drainage with ortho on 01/24 with no necrotic tissue seen. Lactate 1.2 from 5.4 after 2 L LR, 500 cc bolus LR, 500 cc albumin, and 1 unit pRBCs. Multiple cultures growing Group A Strep. Vanc/zosyn dc'd by ID and Unasyn started on 01/25. Second look with ORTHO today. Still high leukocytosis (WBC 36.59). PLAN: - GenSurg and Ortho on board - Continue Unasyn - Likely stable for transfer to [facility] after surgery - NPO for surgery - 2 units of blood on hold for OR - Heparin on hold for surgery Assessment & Plan (01/25/2023 9:06 AM EDT): Assessment: OSH CT demonstrated Edema, swelling and foci of gas involving the left thigh intramuscular compartment, most significant along the vastus lateralis muscle. Findings suspicious for necrotizing fasciits. Transferred from [place] to [facility] for further surgical evaluation. Incision and drainage with ortho on 01/24 with no necrotic tissue seen. Lactate 1.2 from 5.4 after 2 L LR, 500 cc bolus LR, 500 cc albumin, and 1 unit pRBCs PLAN: - GenSurg and Ortho consulted - Continue Atbx (Vanco, Zosyn) - VS per SICU protocol - f/u blood cultures - cultures from OR as follows: left knee synovial fluid with rare GPCs, left hip abscess with GPCs, left hip fascia with few GPCs - Continue mIVF, ok for regular diet today per ortho - Likely stable for transfer to [facility] Assessment & Plan (01/24/2023 12:38 PM EDT): Assessment: Necrotizing fascitis of the left lower extremity after catch scratch to left posterior calf. At OSH, the patient had leukocytosis (WBC 35) lactate of 2.8. Imaging demonstrating likely gas in periarticular tissues of left hip joint, now POD#0 from incision and drainage with general surgery, hemodynamically stable with no pressors; Cultures as follows: -synovial fluid of left knee with rare gram positive coci -fascia of left hip: few gram positive cocci -left hip abscess: many gram positive cocci PLAN: -continue vancomycin -continue zosyn -blood cultures Assessment & Plan (01/24/2023 5:36 AM EDT): Assessment: OSH CT demonstrated Edema, swelling and foci of gas involving the left thigh intramuscular compartment, most significant along the vastus lateralis muscle. Findings are suspicious for necrotizing fasciitis. Transferred from [place] to [facility] for further surgical evaluation Lactate 2.6 (downtrending 1.8 s/p 2L fluid resus) Received Vanco, Zosyn and Clinda PLAN: - GenSurg and Ortho consulted - Blue card OR for exploration/debridement - Continue Atbx (Vanco, Zosyn, Clinda) - VS per SICU protocol - Sepsis lactate, BCx ordered - Consider ID consult - PRN pain regimen - Continue fluid resus/mIVF Pathologic fracture of femoral neck 02/24/2021 Preoperative clearance 02/24/2021 Prostate cancer metastatic to bone 04/26/2019 Cancer Staging:Clinical:Stage IVB(cTX, cNX, pM1b) - Signed by Jonah Betts) on 05/15/2019 Overview (04/26/2019): Came to ED with chest pain, CT showed RLL mass and multiple enlarged lymph nodes. Has had L hip pain for 3 months, shooting pain down leg to ankle and foot. Also some urinary obstruction and constipation. Seen by oncology. PSA >5000. Oncology has ordered MRI and PET already. Assessment & Plan (01/26/2023 1:32 PM EDT): Assessment: Stage IV prostate cancer with bone/skeletal and pulmonary metastases (s/p Palliative XRT 2018, Casodex, lupron, Zometa, Taxotere x 6 cycles and xtandi; c/b left pathologic femoral fx, s/p Left hip hemiarthroplasty 2020) PLAN: - Assess pain levels - No acute indication for heme/onc consult - Current immunotherapy held Assessment & Plan (01/24/2023 12:26 PM EDT): Assessment: Metastatic prostate cancer with metastasis to bone (spine and hip) and lungs complicated by pathologic left femoral neck fracture with cemented left hip hemiarthroplasty in February 2021. PLAN: -Defer to primary team Assessment & Plan (01/24/2023 5:52 AM EDT): Assessment: Stage IV prostate cancer with bone/skeletal and pulmonary metastases (s/p Palliative XRT 2018, Casodex, lupron, Zometa, Taxotere x 6 cycles and xtandi; c/b left pathologic femoral fx, s/p Left hip hemiarthroplasty 2020) PLAN: - Assess pain levels - No acute indication for heme/onc consult - Current immunotherapy held Assessment & Plan (04/26/2019 5:13 PM EDT): Assessment: Newly discovered lung mass and lymphadenopathy in a heavy smoker, highly suspicious for lung cancer. Also has changes in bowel and bladder function and left hip and leg pain, worrisome for a metastatic lesion affecting the spinal cord or nerve roots. PLAN: We have added him to the schedule for EBUS for sampling of the lymph nodes in the chest. There are no palpable supraclavicular or axillary nodes that are amenable to FNA. We feel the MRI should be done as soon as possible. We will call and try to get it done tomorrow. We have told him if his symptoms get worse, he should go to the ED and tell them we have concerns about a cord lesion. Tobacco use disorder 04/26/2019 Overview (04/26/2019): Long time heavy smoker. Found out in April 2019 that he has a lung mass and lymphadenopathy, suspicious for lung cancer. Has cut down drastically on smoking, wants to quit. Assessment & Plan (04/26/2019 5:18 PM EDT): Assessment: heavy smoker in process of trying to quit due to new lung mass. PLAN: SMOKING CESSATION COUNSELING Smoking cessation methods including Nicotine Replacement Therapies and Behavior Modification were discussed with the patient and assistance offered. The medical conditions adversely affected by cigarette use include:COPD and Lung Cancer. The patient is currently ready to quit. I personally spent 6 minutes in counseling. The time spent in smoking cessation counseling is exclusive of any other counseling during this visit. Enlarged lymph nodes 04/25/2019 Bone metastasis 04/25/2019 Family History Medical History Relation Comments No Known Problems Father Cancer Mother Cancer Sister Relation Status Comments Father Other Mother Alive Sister Alive Social History Tobacco Use Types Packs/Day Years Used Date Smoking Tobacco: Every Day Cigarettes 1 37 Smokeless Tobacco: Former Tobacco Cessation:Ready to Q uit: Yes Alcohol Use Standard Drinks/Week Comments Not Currently 0 (1 standard drink = 0.6 oz pur e alcohol) PHQ-2 Answer Date Recorded PHQ-2 score 2 02/28/2022 Area Deprivation Index Answer Date Christian rded National Score (1-100), lower number is lower ri sk 89 03/18/2023 State Score (1-10), lower number is lower risk 8 03/18/2023 Data from: https://www.neighborhoodatlas.[facility].edu/. Last address used for calculation [address] 03/18/2023 Sex and Gender Information Value Date Recorded Sex Assigned at Male 02/04/2021 8:58 AM EDT Legal Sex Male 11:09 AM EDT Gender Identity Male 02/04/2021 8:58 AM EDT Sexual Orientation Straight 02/04/2021 8: 58 AM EDT Last Filed Vital Signs Vital Sign Reading Time Taken Comments Blood Pressure 119/72 02/16/2023 5:42 PM EDT Pulse 85 02/16/2023 5:42 PM EDT Temperature 37 C (98.6 F) 02/16/2023 5:42 PM EDT Respiratory Rate 20 02/16/2023 5:42 PM EDT Oxygen Saturation 100% 02/16/2023 5:42 PM EDT Inhaled Oxygen Concentration - - Weight 88.4 kg (194 lb 14.2 oz) 023 11:38 AM EDT Height 172.7 cm (5' 8 ) 02/03/2023 11:3 8 AM EDT Body Mass Index 29.63 02/03/2023 11:38 AM EDT Plan of Treatment Health Maintenance Due Date Last Done Comments Anxiety Screening 1981 Depression Screening 1981 HIV Screening 1981 Hepatitis C Screening 1981 DTaP,Tdap,Td Vaccine (1 - Tdap) [address] Colonography 2008 Cologuard (FIT-DNA) 2008 Colonoscopy 2008 Colorectal Cancer Screening 2008 Fecal Occult Blood 2008 Sigmoidoscopy 2008 Pneumococcal Vaccine: 50+ (1 of 1 - PCV) 2013 Shingrix Vaccine (1 of 2) 2013 Covid-19 Vaccine (1 - 2023-2 5 season) 2024 Influenza Vaccine (Season Ended) 2025 04/26/2019 (Patient/Parent/Guardian Counseled and Declines) Diabetes Screening 02/22/2026 02/22/2023, 0 02/13/2023, 02/11/2023, Additional history exists Prostate Cancer Screening Discussion 12/25/2026 12/25/2021, 09/17/2021, 06/02/2021, Additional history exists RSV Vaccine (1 - 1-dose 75+ series) 2038 Medical Devices Implanted Type Area Clinical Psychology Teacher Device Identifier Shelf Expiration Date Model / Serial / Lot Cement Simplex P Tobramycin Bone Full Dose Radiopaque Preblend Sterile - [id number] Implanted:Qty: 1 on 02/25/2021 at [facility] Cement / Putty Left: Bone - Hip [facility] 04/13/2022 [id number] / / [id number] Cement Simplex P Tobramycin Bone Full Dose Radiopaque Preblend Sterile - [id number] Implanted:Qty: 1 on 02/25/2021 at [facility] Cement / Putty Left: Bone - Hip [facility] 04/13/2022 [id number] / / [id number] Head Lfit 26mm 0 Cocr Femoral C Taper Hip - [id number] Implanted:Qty: 1 on 02/25/2021 at [facility] Joint - Hip Left: Bone - Hip [facility] 12/17/2024 [id number] / / [id number] Stem Omnifit Fabián 8.9mm 132d 5 35mm Offset Cocr 110mm 30mm Femoral Cemented - [id number] Implanted:Qty: 1 on 02/25/2021 at [facility] Joint - Hip Left: Bone - Hip [facility] 09/04/2025 [id number] / / [id number] Restrictor Medium Shafer Cement Disposable Electroplating Worker Distal - [id number] Implanted:Qty: 1 on 02/25/2021 at [facility] Joint - Knee Left: Bone - Hip [facility] 12/10/2025 [id number] / / [id number] Head Uhr 52mm 26mm Shafer Cocr Uhmwpe Bipolar Hip - [id number] Implanted:Qty: 1 on 02/25/2021 at [facility] Joint Left: Bone - Hip [facility] 10/08/2024 [id number] / / [id number] Spacer Accolade 9mm Shafer Femoral Cemented Hip - [id number] Implanted:Qty: 1 on 02/25/2021 at [facility] Spacer - Bone Left: Bone - Hip [facility] 09/21/2025 [id number] / / [id number] Procedures Procedure Name Priority Date/Time Associated Diagnosis Comments COMPREHENSIVE METABOLIC PANEL Routine 02/22/2023 1:30 PM EDT PSA DIAGNOSTIC Routine 12/25/2021 8:48 AM EST Prostate cancer metastatic to bone (HCC) from Last 3 Months or Most Recently Relevant to Health Maintenance Results * COMP METABOLIC PANEL (02/22/2023 1:30 PM EDT) Creatinine 0.94 0.7 - 1.2 MG/DL OTHER LAB Alkaline Phosphatase 101 40 - 129 OTHER LAB AST 18 0 - 40 OTHER LAB ALT 20 5 - 41 OTHER LAB Blood BLOOD SPECIMEN / Unknown Narrative Resulting Agency Comment [facility] [address] [place] [address] us [facility] Provider LABORATORY Final Result OTHER LAB * PSA/PROSTSPECAG DIAG (12/25/2021 8:48 AM EST) PSA <0.02 <2.60 ng/mL 12/26/2021 2:06 PM EST [facility] Comment: Total PSA test methodology used is the electrochemiluminescence immunoassay by [facility]. Total PSA values by differing methodologies cannot be interchanged. Blood OTHER / Unknown 12/25/2021 8 :48 AM EST 12/25/2021 8:49 AM EST Maryanne Tavarez PA-C LABORATORY Final Result [facility] [address] [place] [address] [facility] [address] [place] [address] from Last 3 Months or Most Recently Relevant to Health Maintenance Insurance MEDICARE Advance Directives * Full Code (Latest Code Status on File) Date Activated Date Inactivated Comments 01/24/2023 5:29 AM 02/17/2023 1:15 AM Question Answer Comments Full Code Order Discussed With: Patient Surrogate Decision Maker Name: - jaylan * Full Code Date Activated Date Inactivated Comments 01/24/2023 5:22 AM 01/24/2023 5:29 AM Question Answer Comments Full Code Order Discussed With: Patient Surrogate Decision Maker Name: Jaylan - mother, Clayton baig - significant other * Full Code Date Activated Date Inactivated Comments 01/24/2023 5:18 AM 01/24/2023 5:22 AM Question Answer Comments Full Code Order Discussed With: Patient Surrogate Decision Maker Name: Jaylan - * Full Code Date Activated Date Inactivated Comments 02/24/2021 12:26 AM 02/26/2021 10:11 PM Question Answer Comments Full Code Order Discussed With: Discussion Not M edically Appropriate Care Teams Care Coordinator Relationship Specialty Start Date End Date Jonah Betts MD [address] [place] [address] Physician Hematology/Oncology 06/25/19 Maryanne Tavarez PA-C [address] [place] [address] [place] [address] Physician Fire Management Specialist Hematology/Oncology 06/25/19 Thompson Bell DO [address] [place] [address] Consulting Hospice & Palliative Medicine 02/03/21 Anne Tran, VIK Specialty Airplane Gastank Liner Assembler Hospice & Palliative Medicine 02/03/21
--- OUTSIDE RECORDS SUMMARY | 2025-04-05 12:35 | XMS_ITS | Encounter Summary ---
Author Organization [facility] Address [address] [place] [address] Care Team Providers Care Security Operations Engineer Name Role Phone Jaimee Morales RN Unavailable [phone] Jonah Betts MD Unavailable [phone] Maryanne Tavarez PA-C Unavailable [phone] Thompson Bell DO Unavailable Anne Tran RN Unavailable Unavailable Source Comments In the event this information is protected by the Federal Confidentiality of Alcohol and Drug AbusePatient Records regulations: The Federal rules restrict any use of the information to criminally investigate or prosecute any alcohol or drug abuse patient.[facility] Encounter Details Date Type Department Care Team (Late st Contact Info) Description 05/06/2021 Patient Msg Palliative Medicine [address] [place] [address] Thompson Bell DO [address] [place] [address] follow up Social History Tobacco Use Types Packs/Day Years Used Date Smoking Tobacco: Every Day Cigarettes 1 37 Smokeless Tobacco: Former Alcohol Use Standard Drinks/Week Comments Not Currently 0 (1 standard drink = 0.6 oz pur e alcohol) PHQ-2 Answer Date Recorded PHQ-2 score 6 05/06/2021 Area Deprivation Index Answer Date Christian rded National Score (1-100), lower number is lower ri sk Not on file 10/21/2020 State Score (1-10), lower number is lower risk N ot on file 10/21/2020 Data from: https://www.neighborhoodatlas.[facility]/. Last address used for calculation [...] documented as of this encounter Care Teams Security Operations Engineer Relationship Specialty Start Date End Date Jaimee Morales RN [address] [address] Specialty Fly Rail Operator Hematology/Oncology 06/25/19 03/26/24 Jonah Betts MD [address] [place] [address] [place] [address] Physician Hematology/Oncology 06/25/19 Maryanne Tavarez, PAMalickC [address] [place] [address] [place] [address] Physician Control Clerk Subassembly Hematology/Oncology 06/25/19 Thompson Bell DO [address] [place] [id number] Consulting Hospice & Palliative Medicine 02/03/21 Anne Tran, RN Specialty Fly Rail Operator Hospice & Palliative Medicine 02/03/21 documented as of this encounter
--- OUTSIDE RECORDS SUMMARY | 2025-04-05 12:36 | XMS_ITS | Encounter Summary ---
Author Organization [facility] Address [address] [place] [address] Care Team Providers Care Energy Consultant Name Role Phone Jaimee Morales RN Unavailable [phone] Jonah Betts MD Unavailable [phone] Maryanne Tavarez PA-C Unavailable [phone] Thompson Bell DO Unavailable Anne Tran RN Unavailable Unavailable Source Comments In the event this information is protected by the Federal Confidentiality of Alcohol and Drug AbusePatient Records regulations: The Federal rules restrict any use of the information to criminally investigate or prosecute any alcohol or drug abuse patient.[facility] Encounter Details Date Type Department Care Team (Late st Contact Info) Description 03/25/2021 Patient Msg Palliative Medicine [address] [place] [address] Thompson Bell DO [address] [place] [address] follow up Social History Tobacco [...] N ot on file 10/21/2020 Data from: https://www.neighborhoodatlas.[facility]/. Last address used for calculation [...] have Coronavirus / COVID-19? No / Unsure 02/23/2021 12:50 PM EDT documented as of this encounter Plan of Treatment Not on file documented as of this encounter Visit Diagnoses Not on filedocumented in this encounter Additional Health Concerns Infection Onset Date Last Indicated Resolved Time COVID-19 Rule-Out 01/24/2023 01/24/2023 01/24/2023 6:05 AM EDT documented as of this encounter Care Teams Energy Consultant Relationship Specialty Start Date End Date Jaimee Morales RN [address] [place] [address] Specialty Transmission Systems Operator Hematology/Oncology 06/25/19 03/26/24 Jonah Betts MD [address] [place] [address] [place] [address] Physician Hematology/Oncology 06/25/19 Maryanne Tavarez PA-C [address] [place] [address] [place] [address] Physician Wastewater Operator Hematology/Oncology 06/25/19 Thompson Bell DO [address] [place] [place] [id number] Consulting Hospice & Palliative Medicine 02/03/21 Anne Tran, RN Specialty Transmission Systems Operator Hospice & Palliative Medicine 02/03/21 documented as of this encounter
--- OUTSIDE RECORDS SUMMARY | 2025-04-05 12:36 | XMS_ITS | Encounter Summary ---
Author Organization [facility] Address [address] [place] [address] Care Team Providers Care Agriculture Intern Name Role Phone Jaimee Morales RN Unavailable [phone] Jonah Betts MD Unavailable [phone] Maryanne Tavarez PA-C Unavailable [phone] Thompson Bell DO Unavailable Anne Tran RN Unavailable Unavailable Source Comments In the event this information is protected by the Federal Confidentiality of Alcohol and Drug AbusePatient Records regulations: The Federal rules restrict any use of the information to criminally investigate or prosecute any alcohol or drug abuse patient.[facility] Encounter Details Date Type Department Care Team (Late st Contact Info) Description 01/25/2022 Patient Msg Palliative Medicine [address] [place] [address] Thompson Bell DO [address] [place] [address] refill Social History Tobacco Use Types Packs/Day [...] N ot on file 10/21/2020 Data from: https://www.neighborhoodatlas.[facility]/. Last address used for calculation [...] have Coronavirus / COVID-19? No / Unsure 01/18/2022 3:56 PM EST documented as of this encounter Plan of Treatment Not on file documented as of this encounter Visit Diagnoses Not on filedocumented in this encounter Additional Health Concerns Infection Onset Date Last Indicated Resolved Time COVID-19 Rule-Out 01/24/2023 01/24/2023 01/24/2023 6:05 AM EDT documented as of this encounter Care Teams Agriculture Intern Relationship Specialty Start Date End Date Jaimee Morales RN [address] [place] [address] Specialty Transport Analyst Hematology/Oncology 06/25/19 03/26/24 Jonah Betts MD [address] [place] [address] [place] [address] Physician Hematology/Oncology 06/25/19 Maryanne Tavarez PA-C [address] [place] [address] [place] [address] Physician Food Service Aide Hematology/Oncology 06/25/19 Thompson Bell DO [address] [place] [id number] Consulting Hospice & Palliative Medicine 02/03/21 Anne Tran, RN Specialty Transport Analyst Hospice & Palliative Medicine 02/03/21 documented as of this encounter
--- OUTSIDE RECORDS SUMMARY | 2025-04-05 12:36 | XMS_ITS | Encounter Summary ---
Author Organization [facility] Address [address] [place] [address] Care Team Providers Care Pharmacy Informaticist Name Role Phone Jaimee Morales RN Unavailable [phone] Jonah Betts MD Unavailable [phone] Maryanne Tavarez PA-C Unavailable [phone] Thompson Bell DO Unavailable Anne Tran RN Unavailable Unavailable Source Comments In the event this information is protected by the Federal Confidentiality of Alcohol and Drug AbusePatient Records regulations: The Federal rules restrict any use of the information to criminally investigate or prosecute any alcohol or drug abuse patient.[facility] Encounter Details Date Type Department Care Team (Late st Contact Info) Description 02/04/2021 Patient Msg Palliative Medicine [address] [place] [address] Thompson Bell DO [address] [place] [address] follow up Social History Tobacco [...] N ot on file 10/21/2020 Data from: https://www.neighborhoodatlas.[facility]/. Last address used for calculation Not [...] Date Last Indicated Resolved Time COVID-19 Rule-Out 02/23/2021 02/23/2021 02/24/2021 2:36 AM EDT COVID-19 Rule-Out 01/24/2023 01/24/2023 01/24/2023 6:05 AM EDT documented as of this encounter Care Teams Pharmacy Informaticist Relationship Specialty Start Date End Date Jaimee Morales RN [address] [facility] [place] [address] Specialty High School Science Tutor Hematology/Oncology 06/25/19 03/26/24 oJnah Betts MD [address] [facility] [place] [address] Physician Hematology/Oncology 06/25/19 Maryanne Tavarez PA-C [address] [facility] [place] [address] Physician Retail Security Professional Hematology/Oncology 06/25/19 Thompson Bell DO [address] [place] [address] Consulting Hospice & Palliative Medicine 02/03/21 Anne Tran, VIK Specialty High School Science Tutor Hospice & Palliative Medicine 02/03/21 documented as of this encounter
--- OUTSIDE RECORDS SUMMARY | 2025-04-05 12:36 | XMS_ITS | Encounter Summary ---
Author Organization [facility] Address [address] [place] [address] Care Team Providers Care Catheterization Laboratory Technician Name Role Phone Jaimee Morales RN Unavailable [phone] Jonah Betts MD Unavailable [phone] Maryanne Tavarez PA-C Unavailable [phone] Thompson Bell DO Unavailable Anne Tran RN Unavailable Unavailable Source Comments In the event this information is protected by the Federal Confidentiality of Alcohol and Drug AbusePatient Records regulations: The Federal rules restrict any use of the information to criminally investigate or prosecute any alcohol or drug abuse patient.[facility] Encounter Details Date Type Department Care Team (Late st Contact Info) Description 02/25/2021 Surgical Case HOSP MAIN H050 [address] [place] [address] William Tuttle MD [address] [facility] [address] [place] [address] Social History Tobacco Use Types Packs/Day Years [...] N ot on file 10/21/2020 Data from: https://www.neighborhoodatlas.[facility]/. Last address used for [...] documented as of this encounter Care Teams Catheterization Laboratory Technician Relationship Specialty Start Date End Date Jaimee Morales RN [address] [facility] [address] Specialty Back Shoe Worker Hematology/Oncology 06/25/19 03/26/24 Jonah Betts MD [address] [place] [address] [place] [address] Physician Hematology/Oncology 06/25/19 Maryanne Tavarez PA-C [address] [place] [address] [place] [address] Physician In Home Baby Sitter Hematology/Oncology 06/25/19 Thompson Bell DO [address] [place] [id number] Consulting Hospice & Palliative Medicine 02/03/21 Anne Tran, RN Specialty Back Shoe Worker Hospice & Palliative Medicine 02/03/21 documented as of this encounter
--- OUTSIDE RECORDS SUMMARY | 2025-04-05 12:36 | XMS_ITS | Encounter Summary ---
Author Organization [facility] Address [address] [place] [address] Care Team Providers Care Finishing Range Feeder Name Role Phone Jaimee Morales RN Unavailable [phone] Jonah Betts MD Unavailable [phone] Maryanne Tavarez PA-C Unavailable [phone] Thompson Bell DO Unavailable Anne Tran RN Unavailable Unavailable Source Comments In the event this information is protected by the Federal Confidentiality of Alcohol and Drug AbusePatient Records regulations: The Federal rules restrict any use of the information to criminally investigate or prosecute any alcohol or drug abuse patient.[facility] Encounter Details Date Type Department Care Team (Late st Contact Info) Description 03/02/2022 Patient Msg Palliative Medicine [address] [place] [address] Thompson Bell DO [address] [place] [address] Appointment Cancellation Request Social History [...] N ot on file 10/21/2020 Data from: https://www.neighborhoodatlas.[facility]/. Last address used for calculation Not [...] documented as of this encounter Care Teams Finishing Range Feeder Relationship Specialty Start Date End Date Jaimee Morales RN [address] [place] [address] [place] [address] Specialty Traffic Rate Clerk Hematology/Oncology 06/25/19 03/26/24 Jonah Betts MD [address] [place] [address] [place] [address] Physician Hematology/Oncology 06/25/19 Maryanne Tavarez PAMalickC [address] [place] [address] [place] [address] Physician Professional Healthcare Representative Hematology/Oncology 06/25/19 Thompson Bell DO [address] [place] [address] Consulting Hospice & Palliative Medicine 02/03/21 Anne Tran, VIK Specialty Traffic Rate Clerk Hospice & Palliative Medicine 02/03/21 documented as of this encounter
--- OUTSIDE RECORDS SUMMARY | 2025-04-05 12:36 | XMS_ITS | Data Portability ---
Author Organization [place] - [facility] [place] Address [address] [place] [address] Assessment No assessment recorded. Plan of Treatment Reminders Order Date Submit Date Provider Last Modified By Organization Details Last Modified Time Details Appointments None recorded . Lab None recorded . Referral None recorded . Procedures None recorded . Surgeries None recorded . Imaging None recorded . Medication Orders Cipro 500 mg tablet 025 01/13/20 25 [facility] [id number], [address] [place], [address], 13:32:09 Patient TargetsNo targets recorded. Patient InstructionsNo instructions recorded. Reason for Referral None Reported. Problems No Known Problems Medical Equipment None Reported. Allergies No known drug allergies Medications Name Sig Start Date Stop Date Status Note LastModified by Organization Details LastModified Time Cipro 500 mg tablet Take 1 tablet every 12 hours by oral route for 7 days. 025 active Not Available Not Available Not Avai lable ibuprofen active ADDED BY PATIENT : Not Available Not Available Not Available Vitals None Recorded Social History None recorded. Functional Status None recorded. Mental Status None recorded. Family History Nothing Reported. Medical History No medical history recorded. Past Encounters Encounter ID Performer Location Encounter Start Date Encounter Closed Date Diagnosis/Indication Diagnosis SNOMED-CT Code Diagnosis ICD10 Code Diagnosis Note [id number] Chip Prieto MD [facility] [address] [place] [address] 01/12/2025 11:55:06 01/12/2025 12:05:19 Acute urinary tract infection 983907855 N39.0 Likely UTI. Ddx includes yeast infection and interstiti al cystitis. Given current symptoms and lackof penile discharge, UTI most likely. Currently no s/s of ascending infection. Discussed likelycaus e of symptoms and expected course with patient. Patient aware that definitive diagnosism ay be establishe d with urinary testing. Cipro X 7 days was prescribed . Check Urine SHARIFA locally. We discussedt he risks of side effects including but not limited to: rash, diarrhea, yeast infections , swelling andrespira tory distress with antibiotic use. Discussed warning signs of pyelonephr itis. Patientask ed to inform their PCP of this telemedici ne visit and to follow up in 3 days if not improving, orsooner for any worsening. Health Concerns Section Related Observation LastModified by Organization Detai ls LastModified Time None Recorded Concern Status LastModified by Organization Details LastModified Time None Recorded Advance Directives Directive None Recorded Payers Insurance Date Sequence Insurance Name Policy Number Policy García Covered Member ID García Member ID Guarantor Name 01/05/2025 1 *SELF PAY* Jossy Correa 01/12/2025 1 MEDICARE-[facility] (MEDICARE) Fareed Correa [id number] Fareed Correa 01/05/2025 2 *SELF PAY* Fareed Correa [id number] Fareed Correa 03/20/2025 MED[place] Fareed Correa [id number] Fareed Correa Notes Date Note Type Note Provider Name and Address Organization Details Recorded Time 5 text/html S- Call accepted. Patient entered symptoms, allergies, medications, and prior visits reviewed.Patient greeted. Identity and confirmed. Verbal consent obtained. Patient made aware of potentiallimitations of telehealth visit.Patient with 2 days of burning with urination, frequency.Denies fevers, nausea/vomiting, hematuria, penile discharge, abdominal pain or flank pain. H/O Prostate cancer. Chip Prieto MD [address] [facility] [address], [address], [place] [facility] 01/12/2025 11:59:04
[2025-04-05] MEDS: LIDOCAINE 2% JELLY 10 ML UR (12:56)
[2025-04-05 13:19] LABS: Bilirubin Urine NEGATIVE (NEGATIVE); Blood Urine LARGE (NEGATIVE); Clarity Urine CLOUDY (CLEAR); Color Urine DK. YELLOW (YELLOW); Glucose Urine UA NEGATIVE (NEGATIVE); Ketones Urine NEGATIVE (NEGATIVE); Leukocyte Esterase Urine LARGE (NEGATIVE); Nitrite Urine NEGATIVE (NEGATIVE); Protein Urine 100 mg/dL (NEG/TRACE); Urobilinogen Urine 0.2 EU/dL (0.2-1.0); pH Urine 6.5 (5.0-9.0)
[2025-04-05 13:22] LABS: Bacteria Urine LARGE #/HPF (NONE SEEN); Cast Seen? NONE SEEN #/LPF (NONE SEEN); Crystals Seen? None Seen #/HPF (None Seen); Mucus Urine NONE SEEN (NONE SEEN); Squamous Epithelial Cell Urine RARE #/LPF (NONE/RARE); Urine Culture Indicated YES-FRMC; WBC Urine >100 #/HPF (NONE SEEN)
--- NOTE | 2025-04-05 14:38 | ED.GENADUL1 ---
HPI HPI - General Adult General Chief complaint: Urogenital-Male Stated complaint: CATHETER PLUGGED UP PAIN Time Seen by Provider: 04/05/25 12:47 Source: patient Mode of arrival: walk-in Limitations: no limitations History of Present Illness HPI narrative: Patient is a 59-year-old male who is presenting to the ER with chief complaint of Hummel catheter complication. Please see detailed note by Danielle CHERY. Patient's had his Hummel in for 2 months. Patient had his catheter and leg bag tape with Dr. They have been very unhygienic. Patient does have a procedure with Dr. Rivera next week in [place] where he is going to have a ureteroscopic, cystoscopy, TURP and procedures done by his urologist Dr. Rivera. Patient is having bladder distention and suprapubic pain with retention. Patient does not believe his Hummel is draining. No fever. No nausea, vomiting, or any other acute complaints. All systems are negative except as noted/marked. All systems reviewed and otherwise negative. Nurses note and vital signs reviewed and patient is not hypoxic. Patient smells of significant cigarette and tobacco products. Poor hygiene. General: The patient appears well and in no apparent distress. Patient is resting comfortably on cart. Patient is not toxic, lethargic, or listless Skin: Warm, dry, no pallor noted. There is no rash noted. No petechiae, purpura. Head: Normocephalic, atraumatic Eye: Normal conjunctiva, no drainage, EOMI. PERRL Ears, Nose, Mouth, and Throat: oral mucosa is moist. Nares patent. Mouth without vesicles. Cardiovascular: Regular Rate and Rhythm, no murmur, gallop, rub Respiratory: Patient is in no distress, no accessory muscle use, lungs are clear to auscultation, no wheezing, rales or rhonchi Back: non-tender, no CVA tenderness bilaterally to percussion. No CT LS midline pain GI: no tenderness to palpation, no masses appreciated. No rebound, guarding, or rigidity noted. No distention : Patient is circumcised, 2 descended testicles with no tenderness to palpation. No rash to scrotum or suprapubic area. No rash to bilateral inguinal area, no rash to perineum. No redness or drainage or rash to glans of the penis. Hummel catheter in place, poor hygiene noted. Musculoskeletal: Patient has full range of motion of all of the extremities, no motor, sensory, or focal neurological deficits Neurological: A&O x4, normal speech Psychiatric: Cooperative Related Data Home Medications ?Medication ?Instructions ?Recorded ?Confirmed tamsulosin 0.4 mg capsule 0.4 mg PO Q24H 04/05/25 04/05/25 Previous Rx's ?Medication ?Instructions ?Recorded ciprofloxacin HCl 500 mg tablet 500 mg PO BID 7 days #14 tabs 04/05/25 Allergies Allergy/AdvReac Type Severity Reaction Status Date / Time acetaminophen (From [place]) Allergy Unknown Verified 01/29/25 23:34 hydrocodone (From [place]) Allergy Unknown Verified 01/29/25 23:34 Opioid HPI Opioid Management Most Recent Opioid Data: Last Pain Scale 8 Today, 12:27 PFSH PFSH Social History Little interest or pleasure in doing things: not at all Feeling down, depressed, or hopeless: not at all Exam Constitutional Vital Signs, click to edit/add: Last Vital Signs Temp 100 F 04/05/25 14:55 Pulse 107 H 04/05/25 14:55 Resp 14 04/05/25 14:55 BP 132/92 H 04/05/25 14:55 Pulse Ox 97 04/05/25 14:55 O2 Del Method Room Air 04/05/25 14:55 Course Vital Signs Vital signs: Vital Signs Temperature 97.9 F 04/05/25 12:27 Pulse Rate 91 H 04/05/25 12:27 Respiratory Rate 18 04/05/25 12:27 Blood Pressure 162/88 H 04/05/25 12:27 Pulse Oximetry 100 04/05/25 12:27 Oxygen Delivery Method Room Air 04/05/25 12:27 Temperature 100 F 04/05/25 14:55 Pulse Rate 107 H 04/05/25 14:55 Respiratory Rate 14 04/05/25 14:55 Blood Pressure 132/92 H 04/05/25 14:55 Pulse Oximetry 97 04/05/25 14:55 Oxygen Delivery Method Room Air 04/05/25 14:55 Medical Decision Making [facility] Narrative Medical decision making narrative: Patient seen and examined: Patient will have Hummel exchanged, hygiene education, urine and urine culture Differential diagnosis includes but is not limited to: UTI, kidney stone, urinary retention, Hummel catheter malfunction, pyelonephritis, Diagnostics and management: Patient will have laboratory studies Relevant laboratory interpretation: Patient has multiple items elevated in his urine, please see urinalysis with microscopic. Urine culture will be done. Reevaluation: Patient felt much better after the Hummel catheter was placed. Hummel catheter hygiene was done at bedside by nursing staff, myself, and on discharge paperwork. Shared decision making: I discussed with the patient the necessary laboratory findings and radiological findings. Social barriers to healthcare: There are no food insecurities, there is no issue with transportation, there are no insurance barriers. Disposition: I discussed with the patient education at bedside. Patient does have evidence of hemorrhagic cystitis secondary to chronic Hummel catheter. Patient is placed on antibiotics until he sees his urologist next week. Urine culture will be done. Hummel catheter hygiene was done at bedside and on discharge paperwork. No questions at discharge Lab Data Labs: Lab Results 04/05/25 Range/Units 12:57 Urine Color Dk. yellow (YELLOW) Urine Clarity Cloudy A (CLEAR) Urine pH 6.5 (5.0-9.0) Ur Specific Dugger 1.020 (1.005-1.025) Urine Protein 100 A (NEG/TRACE) mg/dL Urine Glucose (UA) Negative (NEGATIVE) mg/dL Urine Ketones Negative (NEGATIVE) mg/dL Urine Occult Blood Large A (NEGATIVE) Urine Nitrite Negative (NEGATIVE) Urine Bilirubin Negative (NEGATIVE) Urine Urobilinogen 0.2 (0.2-1.0) EU/dL Ur Leukocyte Esterase Large A (NEGATIVE) Urine RBC 10-20 A (0-2) #/HPF Urine WBC >100 A (NONE SEEN) #/HPF Ur Squamous Epith Cells Rare (NONE/RARE) #/LPF Urine Crystals None seen (None Seen) #/HPF Urine Bacteria Large A (NONE SEEN) #/HPF Urine Casts None seen (NONE SEEN) #/LPF Urine Mucus None seen (NONE SEEN) Ur Culture Indicated? Yes-[facility] Discharge Plan Discharge Chief Complaint: Urogenital-Male Clinical Impression: Hemorrhagic cystitis, Malfunction of Hummel catheter Patient Disposition: Home, Self-Care Time of Disposition Decision: 14:22 Condition: Fair Prescriptions / Home Meds: New ciprofloxacin HCl 500 mg tablet 500 mg PO BID 7 Days Qty: 14 0RF No Action tamsulosin 0.4 mg capsule 0.4 mg PO Q24H Print Language: Italian Instructions: Urinary Tract Infection in Men (ED), Hummel Catheter Placement and Care (ED), How to Change a Catheter Drainage Bag (DC) Additional Instructions: Take your antibiotic when you pickling operator the prescription, take your second antibiotic this evening. Increase fluids, cranberry juice and water Follow-up next week with your procedure with Dr. Rivera Referrals: Physician,Non-Staff, MD [Primary Care Provider] - 1 week Discharge Date/Time: 04/05/25 15:02
[2025-04-05 14:55] VITALS: BP 132/92; PULSE 107; TEMP 37.7; O2SAT 97
== END 2025-04-05 15:02 | disposition home or self-care (01) ==
PROVIDERS: Emergency Provider Emergency Medicine
DX: R50.9 Fever, unspecified (principal); T83.098A Other mechanical complication of other urinary catheter, initial encounter; N30.91 Cystitis, unspecified with hematuria
CPT/HCPCS: 51702; 81001; 87086; 87088; 87186; 99283

== ENCOUNTER 2025-07-05 11:55 | Emergency (ER) | payer MEDICARE, SELFPAY ==
[2025-07-05 12:01] VITALS: BP 154/96; PULSE 79; TEMP 37.1; O2SAT 92; BMI 22.2
--- OUTSIDE RECORDS SUMMARY | 2025-07-05 12:11 | XMS_ITS | Encounter Summary ---
Author Organization [facility] Address [address] [place] [address] Care Team Providers Care Wall Mirror Department Supervisor Name Role Phone Jaimee Morales RN Unavailable [phone] Jonah Betts MD Unavailable [phone] Maryanne Tavarez PA-C Unavailable [phone] Thompson Bell DO Unavailable Anne Tran RN Unavailable Unavailable Source Comments In the event this information is protected by the Federal Confidentiality of Alcohol and Drug AbusePatient Records regulations: The Federal rules restrict any use of the information to criminally investigate or prosecute any alcohol or drug abuse patient.[facility] Encounter Details Date Type Department Care Team (Late st Contact Info) Description 05/01/2021 Patient Msg Hematology/Oncology [address] [place] [address] Provider, Ccf 05/[address] Bell, at [facility] Social History Tobacco Use Types Packs/Day [...] N ot on file 10/21/2020 Data from: https://www.neighborhoodatlas.[facility]/. Last address used for calculation [...] documented as of this encounter Care Teams Wall Mirror Department Supervisor Relationship Specialty Start Date End Date Jaimee Morales RN [address] [place] [address] [place] [address] Specialty Engraver Machine Hematology/Oncology 06/25/19 03/26/24 Jonah Betts MD [address] [place] [address] [place] [address] Physician Hematology/Oncology 06/25/19 Maryanne Tavarez, CANDIEC [address] [place] [address] [place] [address] Physician Sock Ironer Hematology/Oncology 06/25/19 Thompson Bell DO [address] [place] [address] Consulting Hospice & Palliative Medicine 02/03/21 Anne Tran, RN Specialty Engraver Machine Hospice & Palliative Medicine 02/03/21 documented as of this encounter
--- OUTSIDE RECORDS SUMMARY | 2025-07-05 12:11 | XMS_ITS | Clinical Summary ---
Author Organization [facility] Address [address] [place] [address] Care Team Providers Care Model Maker Plaster Name Role Phone Unavailable Primary Care Provider [...]
--- OUTSIDE RECORDS SUMMARY | 2025-07-05 12:11 | XMS_ITS | Encounter Summary ---
Author Organization [facility] Address [address] [place] [address] Care Team Providers Care Dietary Server Name Role Phone Jaimee Morales RN Unavailable [phone] Jonah Betts MD Unavailable [phone] Maryanne Tavarez PA-C Unavailable [phone] Thompson Bell DO Unavailable Anne Tran RN Unavailable Unavailable Source Comments In the event this information is protected by the Federal Confidentiality of Alcohol and Drug AbusePatient Records regulations: The Federal rules restrict any use of the information to criminally investigate or prosecute any alcohol or drug abuse patient.[facility] Encounter Details Date Type Department Care Team (Late st Contact Info) Description 07/09/2021 Patient Msg Palliative Medicine [address] [place] [address] Provider, Ccf refill Social History [...] on file 10/21/2020 Data from: https://www.neighborhoodatlas.medicine.[facility]/. Last address used for calculation [...] documented as of this encounter Care Teams Dietary Server Relationship Specialty Start Date End Date Jaimee Morales RN [address] [place] [address] [place] [address] Specialty Physical Instructor Hematology/Oncology 06/25/19 03/26/24 Jonah Betts MD [address] [facility] [place] [address] Physician Hematology/Oncology 06/25/19 Maryanne Tavarez PA-C [address] [facility] [place] [address] Physician Doctor Podiatric Medicine Hematology/Oncology 06/25/19 Thompson Bell DO [address] [place] [address] Consulting Hospice & Palliative Medicine 02/03/21 Anne Tran, RN Specialty Physical Instructor Hospice & Palliative Medicine 02/03/21 documented as of this encounter
--- OUTSIDE RECORDS SUMMARY | 2025-07-05 12:11 | XMS_ITS | Clinical Summary ---
Author Organization [facility] Address [address] [place] [address] Care Team Providers Care Filter Worker Name Role Phone Jonah Betts MD Unavailable [phone] Maryanne Tavarez PA-C Unavailable [phone] Thompson Bell DO Unavailable Anne Tran RN [...] Findings suspicious for necrotizing fasciits. Transferred from [place] to [facility] for further surgical evaluation. Incision and drainage [...] Unasyn - Likely stable for transfer to [facility] after surgery - NPO for surgery - 2 units of blood on hold for OR - Heparin on hold for surgery Assessment & Plan (01/25/2023 9:06 AM EDT): Assessment: OSH CT demonstrated Edema, swelling and foci of gas involving the left thigh intramuscular compartment, most significant along the vastus lateralis muscle. Findings suspicious for necrotizing fasciits. Transferred from [place] to [facility] for further surgical evaluation. Incision and drainage [...] ortho - Likely stable for transfer to [facility] Assessment & Plan (01/24/2023 12:38 PM EDT): [...] are suspicious for necrotizing fasciitis. Transferred from [place] to [facility] for further surgical evaluation Lactate 2.6 (downtrending [...] is lower risk 8 03/18/2023 Data from: https://www.neighborhoodatlas.medicine.[facility].edu/. Last address used for calculation [place] [...] 2013 Shingrix Vaccine (1 of 2) 2013 Medicare Annual Wellness Visit 09/14/2021 Influenza Vaccine (#1) 2025 9 (Patient/Parent/Guardian Counseled and Declines) Diabetes Screening 02/22/2026 02/22/2023, 0 02/13/2023, 02/11/2023, Additional history exists Prostate Cancer Screening Discussion 12/25/2026 12/25/2021, 09/17/2021, 06/02/2021, Additional history exists RSV Vaccine (1 - 1-dose 75+ series) 2038 Medical Devices Implanted Type Area Bezel Cutter Device Identifier Shelf Expiration Date Model / Serial / Lot Cement Simplex P Tobramycin Bone Full Dose Radiopaque Preblend Sterile - [id number] Implanted:Qty: 1 on 02/25/2021 at [facility] Cement / Putty Left: Bone - Hip [facility] 04/13/2022 6197-9-010 / / [id number] Cement Simplex P Tobramycin Bone Full Dose Radiopaque Preblend Sterile - [id number] Implanted:Qty: 1 on 02/25/2021 at [facility] Cement / Putty Left: Bone - Hip [facility] 04/13/2022 6197-9-010 / / [id number] Head Lfit 26mm 0 Cocr Femoral C Taper Hip - [id number] Implanted:Qty: 1 on 02/25/2021 at [facility] Joint - Hip Left: Bone - Hip [facility] 12/17/2024 [id number] / / [id number] Stem Omnifit Fabián 8.9mm 132d 5 35mm Offset Cocr 110mm 30mm Femoral Cemented - [id number] Implanted:Qty: 1 on 02/25/2021 at [facility] Joint - Hip Left: Bone - Hip [employer] 09/04/2025 [id number] / / [id number] Restrictor Medium [place] Cement Disposable Senior Telecommunications Engineer Distal - [id number] Implanted:Qty: 1 on 02/25/2021 at [facility] Joint - Knee Left: Bone - Hip [employer] 12/10/2025 [id number] / / [id number] Head Uhr 52mm 26mm [place] Cocr Uhmwpe Bipolar Hip - [id number] Implanted:Qty: 1 on 02/25/2021 at [facility] Joint Left: Bone - Hip [employer] 10/08/2024 [id number] / / [id number] Spacer Accolade 9mm [place] Femoral Cemented Hip - [id number] Implanted:Qty: 1 on 02/25/2021 at [facility] Spacer - Bone Left: Bone - Hip [employer] 09/21/2025 [id number] / / [id number] Procedures Procedure Name Priority [...] SPECIMEN / Unknown Narrative Resulting Agency Comment [facility] [address] [place] [address] us [facility] Provider LABORATORY Final Result OTHER LAB * PSA/PROSTSPECAG DIAG (12/25/2021 8:48 AM EST) PSA <0.02 <2.60 ng/mL 12/26/2021 2:06 PM EST [facility] Comment: Total PSA test methodology used is the electrochemiluminescence immunoassay by [facility]. Total PSA values by differing methodologies cannot be interchanged. Blood OTHER / Unknown 12/25/2021 8 :48 AM EST 12/25/2021 8:49 AM EST Maryanne Tavarez PA-C LABORATORY Final Result [facility] [address] [place] [address] [facility] [address] [place] [address] from Last 3 Months or Most Recently [...] Decision Maker Name: Jaylan - mother, Clayton safia - significant other * Full Code Date Activated Date Inactivated Comments 01/24/2023 5:18 AM 01/24/2023 5:22 AM Question Answer Comments Full Code Order Discussed With: Patient Surrogate Decision Maker Name: Jaylan - * Full Code Date Activated Date Inactivated Comments 02/24/2021 12:26 AM 02/26/2021 10:11 PM Question Answer Comments Full Code Order Discussed With: Discussion Not M edically Appropriate Care Teams Filter Worker Relationship Specialty Start Date End Date Jonah Betts MD [address] [place] [address] Physician Hematology/Oncology 06/25/19 Maryanne Tavarez PA-C [address] [place] [address] [place] [address] Physician Loader Operator Hematology/Oncology 06/25/19 Thompson Bell DO [address] [place] [address] Consulting Hospice & Palliative Medicine 02/03/21 Anne Tran, RN Specialty Site Leasing Agent Hospice & Palliative Medicine 02/03/21
--- OUTSIDE RECORDS SUMMARY | 2025-07-05 12:11 | XMS_ITS | Clinical Summary ---
Author Organization [facility] tem Address [id number] [address] [place] [address] Care Team Providers Care Case Technician Name Role Phone No Pcp, No Pcp [...] on file Insurance [place] [employer] Care Teams Case Technician Relationship Specialty Start Date End Date No Pcp, [place] [address] PCP - General Family Medicine 09/20/19
--- OUTSIDE RECORDS SUMMARY | 2025-07-05 12:11 | XMS_ITS | Encounter Summary ---
Author Organization [facility] Address [address] [place] [address] Care Team Providers Care Security Project Manager Name Role Phone Jaimee Morales RN Unavailable [phone] Jonah Betts MD Unavailable [phone] Maryanne Tavarez PA-C Unavailable [phone] Thompson Bell DO Unavailable Anne Tran RN [...] Info) Description 05/06/2021 Patient Msg Palliative Medicine [address] [place] [address] Thompson Bell DO [address] [place] [address] follow up Social History Tobacco [...] N ot on file 10/21/2020 Data from: https://www.neighborhoodatlas.[facility]/. Last address used for calculation Not on [...] as of this encounter Care Teams Security Project Manager Relationship Specialty Start Date End Date Jaimee Morales RN [address] [place] [address] Specialty Supervisor Testing Hematology/Oncology 06/25/19 03/26/24 Jonah Betts MD [address] [place] [address] [place] [address] Physician Hematology/Oncology 06/25/19 Maryanne Tavarez, PAMalickC [address] [place] [address] [place] [address] Physician Brick Handler Hematology/Oncology 06/25/19 Thompson Bell DO [address] [place] [id number] Consulting Hospice & Palliative Medicine 02/03/21 Anne Tran, RN Specialty Supervisor Testing Hospice & Palliative Medicine 02/03/21 documented as of this encounter
--- OUTSIDE RECORDS SUMMARY | 2025-07-05 12:11 | XMS_ITS | Clinical Summary ---
Author Organization [facility] Address [address], [address] [place] [address] Care Team Providers Care Welcome Hostess Name Role Phone German So Pratik Primary Care Provider Allergies Active Allergy Reactions [...] mouth daily 30 tablet 11 02/22/2025 Active oxyBUTYnin (DITROPAN XL) 5 MG extended release tablet Take 1 tablet by mouth daily for 14 days 14 tablet 04/12/2025 Active ketorolac (TORADOL) 10 MG tablet Take 1 tablet by mouth every 6 hours as needed for Pain 15 tablet 04/12/2025 Active Active Problems Problem Noted Date Diagnosed Date Prostate cancer 03/04/2025 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 [place] [address] Valente Braxton Jr., MD CYSTOSCOPY RIGHT URETEROSCOPY, RIGHT STENT REMOVAL CHANNEL TURP, HOLMIUM LASER ON STAND BY, STONE EXTRACTION 04/12/2025 11:33 AM EDT Anesthesia Event [facility] OR [address] [place] [address]. [place] [address] Lisbeth Powell MD Peng, Lu, MD 04/12/2025 10:43 AM EDT - 04/12/2025 2:17 PM EDT Hospital Encounter [facility] OR [address] [place] [address]. [place] [address] Valente Braxton Jr., MD Prostate cancer (HCC); BPH with obstruction/lower urinary tract symptoms Discharge Disposition: Home or Self Care 04/12/2025 Travel from Last 3 Months Social History Tobacco Use Types Packs/Day Years Used Date Smoking Tobacco: Every Day Cigarettes Smokeless Tobacco: Former Tobacco Cessation:Ready to Q uit: Not Asked; Counseling Given: Not Answered Alcohol Use Standard Drinks/Week Comments Not Currently 0 (1 standard drink = 0.6 oz pur e alcohol) AUDIT-C Answer Date Recorded Q1: How often do you have a drink containing alcohol? Never 01/30/2025 Q2: How many drinks containi ng alcohol do you have on a typical day when you are drinking? Patient does not drink Q3: How often do you have si x or more drinks on one occasion? Less than monthly 01/30/2025 Interpersonal Safety Domain Source: IP Abuse Scr eening Answer Date Recorded Physical abuse Denies 04/12/2025 Verbal abuse Denies 04/12/2025 Emotional abuse Denies 04/12/2025 Financial abuse Denies 04/12/2025 Sexual abuse Denies 04/12/2025 Sex and Gender Information Value Date Recorded Sex Assigned at Male 03/16/2025 7:05 AM EDT Legal Sex Male 12:16 PM EDT Gender Identity Not on file Sexual Orientation Not on file Last Filed Vital Signs Vital Sign Reading Time Taken Comments Blood Pressure 144/98 04/12/2025 1:30 PM EDT Pulse 72 04/12/2025 1:15 PM EDT Temperature 36.5 C (97.7 F) 04/12/2025 12:24 PM EDT Respiratory Rate 18 04/12/2025 1:15 PM EDT Oxygen Saturation 100% 04/12/2025 1:30 PM EDT Inhaled Oxygen Concentration - - Weight 70.5 kg (155 lb 6.4 oz) 04/12/2025 11:16 AM EDT Height 176.5 cm (5' 9.5 ) 04/12/2025 11:16 AM ED T Body Mass Index 22.62 04/12/2025 11:16 AM EDT Plan of Treatment Upcoming Encounters Date Type Department Care Team (Late st Contact Info) Description 07/05/2025 2:40 PM EDT Office Visit [address] [place] [address] Valente Braxton Jr., MD [address] [facility] [employer] [place] [id number] s/p cystoscopy, turp, psa ordered [id number], not completed) (LM pt to [facility] to r/s appt) Health Maintenance Due Date Last Done Comments [...] Annual Wellness Visit (Medicare) 01/30/2025 Flu vaccine (#1) 06/14/2025 Prostate Specific Antigen (PSA) Screening or Monitoring [...] this topic Medical Devices Implanted Type Area Grants Specialist Device Identifier Shelf Expiration Date Model / Serial / Lot Stent:Urologic al-02/04/2025 Implanted:Qty: 1 on 02/04/2025 by Esau Egan MD Stent:Uro logical Right: Ureter Procedures Procedure Name Priority Date/Time Associated Diagnosis Comments FLUORO FOR SURGICAL PROCEDURES Routine 04/12/2025 1:08 PM EDT STONE ANALYSIS Routine 04/12/2025 12:09 PM EDT ME LITHOLAPAXY SMPL/SM <2.5 CM 04/12/2025 11:32 AM EDT Prostate cancer (HCC) BPH with obstruction/lower urinary tract symptoms Case Notes DOS 04/12 @ 0730 45 MINS - GEN ANES - OP SDD - FORTEC HOLMIUM LASER CONF# [phone] s/w Nadia Special Needs FORTEC HOLMIUM LASER CONF# [phone] s/w Nadia BASIC METABOLIC PANEL Routine 02/06/2025 6:53 AM EDT PSA, DIAGNOSTIC Routine 01/30/2025 2:26 PM EDT HEPATITIS C ANTIBODY Routine 01/30/2025 8:45 AM EDT from Last 3 Months or Most Recently Relevant to Health Maintenance Results * FLUORO FOR SURGICAL PROCEDURES (04/12/2025 1:08 PM EDT) Narrative [facility] - 04/12/2025 1:09 PM EDT Radiology exam is complete. No Radiologist dictation. Please follow up with ordering provider. us Valente Braxton Jr., MD IMG FLUOROSCOPY ORDERAB LES Final Result Performing Organization Address [facility] de Phone Number [facility] * Stone Analysis (04/12/2025 12:09 PM EDT) Stone Composition See Note 025 12:09 PM EDT [facility] Comment: (NOTE) Sample composed primarily of organic material not typically associated with calculi composition. No crystalline material identified. INTERPRETIVE INFORMATION: Calculi (Stone) analysis Calculi are the products of physiological processes that yield crystalline compounds in a matrix of biological compounds and blood. Matrix components are not reported. The clinically significant crystalline components identified in calculi specimens are reported. Gross description may not be consistent with composition determined by FTIR analysis. Performed By: [facility] [address] [place] [address] Senior Trainer: Sam Mcghee MD, PhD CLIA Number: [id number] Stone Mass 110 mg 04/12/2025 12:09 PM EDT [facility] Stone Description See Note 025 12:09 PM EDT [facility] Comment: (NOTE) Specimen consists of three delcid fragments. The total weight is 110 mg. 04/12/2025 12:0 9 PM EDT 04/13/2025 6:21 AM EDT us Valente Braxton Jr., MD MICROBIOLOGY - GENERAL ORDERABLES Final Result Performing Organization Address [facility] de Phone Number [facility] [address] [place] [address], [facility] [phone] [facility] [address] [place] [address], [facility] [phone] * (ABNORMAL) Basic Metabolic Panel (02/06/2025 6:53 AM EDT) Sodium 136 136 - 145 mmol/L 02/06/2025 6:53 AM EDT [facility] Potassium 5.0 3.7 - 5.3 mmol/L 02/06/2025 6:53 AM EDT [facility] Chloride 106 98 - 107 mmol/L 02/06/2025 6:53 AM EDT [facility] CO2 20 20 - 31 mmol/L 02/06/2025 6:53 AM EDT [facility] Anion Gap 10 9 - 16 mmol/L 02/06/2025 6:53 AM EDT [facility] Glucose 99 74 - 99 mg/dL 02/06/2025 6:53 AM EDT [facility] BUN 31(H) 8 - 23 mg/dL 02/06/2025 6:53 AM EDT [facility] Creatinine 1.8(H) 0.7 - 1.2 mg/dL 02/06/2025 6:53 AM EDT [facility] Est, Glom Filt Rate 42(L) >60 mL/min/1. 73m2 02/06/2025 6:53 AM EDT [facility] Comment: These results are not intended for [...] - 10.4 mg/dL 02/06/2025 6:53 AM EDT [facility] BLOOD SPECIMEN / Unknown 02/06/2025 6:53 AM EDT 02/06/2025 7:22 AM EDT Pantera Blackwell MD CHEMISTRY ORDERABLES Final R esult Performing Organization Address [facility] de Phone Number [facility] [address] [place] [address], [facility] [phone] * (ABNORMAL) PSA, Diagnostic (01/30/2025 2:26 PM EDT) PSA 504.00(H) 0.00 - 4.00 ng/mL 01/30/2025 2:26 PM EDT [facility] Comment: The [facility] [employer] assay is used. Results obtained with different assay methods cannot be used interchangeably. 01/30/2025 2:26 PM EDT 01/30/2025 2:39 PM EDT Renato Bullard MD CHEMISTRY ORDERABLES Final Resul t Performing Organization Address [facility] Number [facility] [address] [place] [address], [facility] [phone] * Hepatitis C Antibody (01/30/2025 8:45 AM EDT) Hepatitis C Ab NONREACTIVE NONREACTIVE 01/31/20 8:45 AM EDT [facility] Comment: The hepatitis C procedure used in [...] 8:45 AM EDT 01/30/2025 8:50 AM EDT Maximo France MD IMMUNOLOGY ORDERABLES Final Re sult Performing Organization Address [facility] de Phone Number [facility] [address] [place] [address], [facility] [phone] from Last 3 Months or Most Recently Relevant to Health Maintenance Insurance MEDICARE MEDICARE MEDICARE Advance Directives * Full Code (Latest Code Status on File) Date Activated Date Inactivated Comments 01/30/2025 4:39 AM 02/06/2025 2:29 PM * Full Code Date Activated Date Inactivated Comments 01/30/2025 4:39 AM 01/30/2025 4:39 AM Healthcare Agents on File Name Relationship Healthcare Agent Relationshi p Communication Ming Correa Child Primary Decision Maker Care Teams Welcome Hostess Relationship Specialty Start Date End Date German So DO [address] [place] [address] PCP - General Emergency Medicine 02/21/23
--- OUTSIDE RECORDS SUMMARY | 2025-07-05 12:11 | XMS_ITS | Encounter Summary ---
Author Organization [facility] Address [address] [place] [address] Care Team Providers Care Cable Mechanic Name Role Phone Jaimee Morales RN Unavailable [phone] Jonah Betts MD Unavailable [phone] Maryanne Tavarez PA-C Unavailable [phone] Thompson Bell DO Unavailable Anne Tran RN Unavailable Unavailable Source Comments In the event this information is protected by the Federal Confidentiality of Alcohol and Drug AbusePatient Records regulations: The Federal rules restrict any use of the information to criminally investigate or prosecute any alcohol or drug abuse patient.[facility] Encounter Details Date Type Department Care Team (Late st Contact Info) Description 02/04/2024 Patient Msg Hematology/Oncology [address] [place] [address] Jonah Betts MD [address] [place] [address] Appointment Request Social History Tobacco Use [...] is lower risk 8 03/18/2023 Data from: https://www.neighborhoodatlas.[facility]/. Last address used for calculation [address] [...] of Assessment Author Yes 02/16/2023 7:19 PM Euncie Fuchs RN documented as of this encounter [...] on filedocumented in this encounter Care Teams Cable Mechanic Relationship Specialty Start Date End Date Jaimee Morales RN [address] [place] [address] [place] [address] Specialty Optic Fibre Drawer Hematology/Oncology 06/25/19 03/26/24 Jonah Betts MD [address] [place] [address] [place] [address] Physician Hematology/Oncology 06/25/19 Maryanne Tavarez PA-C [address] [place] [address] [place] [address] Physician Feeder Catcher Tobacco Hematology/Oncology 06/25/19 Thompson Bell DO [address] [place] [address] Consulting Hospice & Palliative Medicine 02/03/21 Anne Tran RN Specialty Optic Fibre Drawer Hospice & Palliative Medicine 02/03/21 documented as of this encounter
--- OUTSIDE RECORDS SUMMARY | 2025-07-05 12:11 | XMS_ITS ---
Author Organization [facility] Address [address] [place] [address] Care Team Providers Care Dean Of Men Name Role Phone Jonah Betts MD Unavailable [phone] Maryanne Tavarez PA-C Unavailable [phone] Thompson Bell DO Unavailable Anne Tran RN Unavailable Unavailable Active Problems Problem Noted Date Diagnosed Date [...] Findings suspicious for necrotizing fasciits. Transferred from [place] to [facility] for further surgical evaluation. Incision [...] Unasyn - Likely stable for transfer to [facility] after surgery - NPO for surgery - 2 units of blood on hold for OR - Heparin on hold for surgery Assessment & Plan (01/25/2023 9:06 AM EDT): Assessment: OSH CT demonstrated Edema, swelling and foci of gas involving the left thigh intramuscular compartment, most significant along the vastus lateralis muscle. Findings suspicious for necrotizing fasciits. Transferred from [place] to [facility] for further surgical evaluation. Incision [...] ortho - Likely stable for transfer to [facility] Assessment & Plan (01/24/2023 12:38 PM EDT): [...] are suspicious for necrotizing fasciitis. Transferred from [place] to [facility] for further surgical evaluation Lactate [...] bone/skeletal and pulmonary metastases (s/p Palliative XRT 2019, Casodex, lupron, Zometa, Taxotere x 6 cycles [...] bone/skeletal and pulmonary metastases (s/p Palliative XRT 2019, Casodex, lupron, Zometa, Taxotere x 6 cycles [...] Enlarged lymph nodes 04/25/2019 Bone metastasis 04/25/2019 Current Treatment and Therapy Plans No current plan information found. Past Treatment and Therapy Plans NON-CHEMO 1 Plan Name Start Date Discontinue Date Treatment Medications Discontinue Reason Plan Provider Cycles BONE MODIFYING AGENT: $ - Q28D IF CRCL IS GREATER THAN 30 ML/MIN 05/30/2019 06/18/2022 zoledronic [id number]-9. 9NaCl (ZOMETA) Other Jonah Betts MD 15 of 15 cycles started ONCOLOGY REGIMEN Plan Name Start Date Discontinue Date Treatment Medications Discontinue Reason Plan Provider Cycles DOCETAXEL 75 D1 - Q21D 06/27/2019 11/05/2019 DOCEtaxel iv piggyback (TaxoTERE)pegf ilgrastim (NEULASTA ONPRO) Treatment Complete Jonah Betts MD 6 of 6 cycles started ONCOLOGY REGIMEN SECONDARY Plan Name Start Date Discontinue Date Treatment Medications Discontinue Reason Plan Provider Cycles LEUPROLIDE 45 D1 - Q175D 05/16/2019 04/06/2023 leuprolide (ELIGARD)leupr olide acetate (6 month) (LUPRON) Other Jonah Betts MD 6 of 6 cycles started
--- OUTSIDE RECORDS SUMMARY | 2025-07-05 12:12 | XMS_ITS | Encounter Summary ---
Author Organization [facility] Address [address] [place] [address] Care Team Providers Care Exhibit Display Representative Name Role Phone Jaimee Morales RN Unavailable [phone] Jonah Betts MD Unavailable [phone] Maryanne Tavarez PA-C Unavailable [phone] Thompson Bell DO Unavailable Anne Tran RN Unavailable Unavailable Source Comments In the event this information is protected by the Federal Confidentiality of Alcohol and Drug AbusePatient Records regulations: The Federal rules restrict any use of the information to criminally investigate or prosecute any alcohol or drug abuse patient.[facility] Encounter Details Date Type Department Care Team (Late st Contact Info) Description 01/10/2022 Patient Msg Palliative Medicine [address] [place] [address] Thompson Bell DO [address] [place] [address] Request an Appointment Social History [...] ot on file 10/21/2020 Data from: https://www.neighborhoodatlas.[facility]/. Last address used for calculation Not [...] documented as of this encounter Care Teams Exhibit Display Representative Relationship Specialty Start Date End Date Jaimee Morales RN [address] [place] [address] Specialty Mud Grinder Hematology/Oncology 06/25/19 03/26/24 Jonah Betts MD [address] [place] [address] [place] [address] Physician Hematology/Oncology 06/25/19 Maryanne Tavarez, PAMalickC [address] [place] [address] [place] [address] Physician Software Trainer Hematology/Oncology 06/25/19 Thompson Bell DO [address] [place] [id number] Consulting Hospice & Palliative Medicine 02/03/21 Anne Tran, RN Specialty Mud Grinder Hospice & Palliative Medicine 02/03/21 documented as of this encounter
--- OUTSIDE RECORDS SUMMARY | 2025-07-05 12:12 | XMS_ITS | Encounter Summary ---
Author Organization [facility] Address [address] [place] [address] Care Team Providers Care Medical Cost Consultant Name Role Phone Jaimee Morales RN Unavailable [phone] Jonah Betts MD Unavailable [phone] Maryanne Tavarez PA-C Unavailable [phone] Thompson Bell DO Unavailable Anne Tran RN Unavailable Unavailable Source Comments In the event this information is protected by the Federal Confidentiality of Alcohol and Drug AbusePatient Records regulations: The Federal rules restrict any use of the information to criminally investigate or prosecute any alcohol or drug abuse patient.[facility] Encounter Details Date Type Department Care Team (Late st Contact Info) Description 09/05/2021 Patient Msg Hematology/Oncology [address] [address] Jonah Betts MD [address] [place] [address] RE: Request an Appointment Social History [...] N ot on file 10/21/2020 Data from: https://www.neighborhoodatlas.medicine[facility].edu/. Last address used for calculation Not [...] documented as of this encounter Care Teams Medical Cost Consultant Relationship Specialty Start Date End Date Jaimee Morales RN [address] [place] [address] [place] [address] Specialty Registered Nurse Teacher Hematology/Oncology 06/25/19 03/26/24 Jonah Betts MD [address] [place] [address] [place] [address] Physician Hematology/Oncology 06/25/19 Maryanne Tavarez PA-C [address] [place] [address] [place] [address] Physician Furniture Technician Hematology/Oncology 06/25/19 Thompson Bell DO [address] [place] [address] Consulting Hospice & Palliative Medicine 02/03/21 Anne Tran, VIK Specialty Registered Nurse Teacher Hospice & Palliative Medicine 02/03/21 documented as of this encounter
--- OUTSIDE RECORDS SUMMARY | 2025-07-05 12:12 | XMS_ITS | Encounter Summary ---
Author Organization [facility] Address [facility] [place] [address] Care Team Providers Care Welder Gun Name Role Phone Jaimee Morales RN Unavailable [phone] Jonah Betts MD Unavailable [phone] Maryanne Tavarez PA-C Unavailable [phone] Thompson Bell DO Unavailable Anne Tran RN Unavailable Unavailable Source Comments In the event this information is protected by the Federal Confidentiality of Alcohol and Drug AbusePatient Records regulations: The Federal rules restrict any use of the information to criminally investigate or prosecute any alcohol or drug abuse patient.[facility] Encounter Details Date Type Department Care Team (Late st Contact Info) Description 01/25/2022 Patient Msg Palliative Medicine [address] [place] [address] Thompson Bell DO [address] [place] [address] refill Social History Tobacco Use [...] N ot on file 10/21/2020 Data from: https://www.neighborhoodatlas.[facility]/. Last address used for calculation Not [...] documented as of this encounter Care Teams Welder Gun Relationship Specialty Start Date End Date Jaimee Morales RN [address] [place] [address] Specialty Community Planner Hematology/Oncology 06/25/19 03/26/24 Jonah Betts MD [address] [place] [address] [place] [address] Physician Hematology/Oncology 06/25/19 Maryanne Tavarez PA-C [address] [place] [address] [place] [address] Physician Hris Coordinator Hematology/Oncology 06/25/19 Thompson Bell DO [address] [place] [id number] Consulting Hospice & Palliative Medicine 02/03/21 Anne Tran, RN Specialty Community Planner Hospice & Palliative Medicine 02/03/21 documented as of this encounter
--- OUTSIDE RECORDS SUMMARY | 2025-07-05 12:12 | XMS_ITS | Encounter Summary ---
Author Organization [facility] Address [address] [place] [address] Care Team Providers Care Air Grinder Name Role Phone Jaimee Morales RN Unavailable [phone] Jonah Betts MD Unavailable [phone] Maryanne Tavarez PA-C Unavailable [phone] Thompson Bell DO Unavailable Anne Tran RN Unavailable Unavailable Source Comments In the event this information is protected by the Federal Confidentiality of Alcohol and Drug AbusePatient Records regulations: The Federal rules restrict any use of the information to criminally investigate or prosecute any alcohol or drug abuse patient.[facility] Encounter Details Date Type Department Care Team (Late st Contact Info) Description 02/25/2021 Surgical Case HOSP MAIN H050 [address] [place] [address] William Tuttle MD [address] [facility] [address] [place] [address] Social History Tobacco Use Types [...] N ot on file 10/21/2020 Data from: https://www.neighborhoodatlas.[facility]/. Last address used for calculation Not [...] documented as of this encounter Care Teams Air Grinder Relationship Specialty Start Date End Date Jaimee Morales RN [address] [place] [address] Specialty Combination Window Installer Hematology/Oncology 06/25/19 03/26/24 Jonah Betts MD [address] [place] [address] [place] [address] Physician Hematology/Oncology 06/25/19 Maryanne Tavarez PA-C [address] [place] [address] [place] [address] Physician Clearance Cutter Hematology/Oncology 06/25/19 Thompson Bell DO [address] [place] [id number] Consulting Hospice & Palliative Medicine 02/03/21 Anne Tran, RN Specialty Combination Window Installer Hospice & Palliative Medicine 02/03/21 documented as of this encounter
--- OUTSIDE RECORDS SUMMARY | 2025-07-05 12:12 | XMS_ITS | Encounter Summary ---
Author Organization [facility] Address [address] [place] [address] Care Team Providers Care Inside Wirer Name Role Phone Jaimee Morales RN Unavailable [phone] Jonah Betts MD Unavailable [phone] Maryanne Tavarez PA-C Unavailable [phone] Thompson Bell DO Unavailable Anne Tran RN Unavailable Unavailable Source Comments In the event this information is protected by the Federal Confidentiality of Alcohol and Drug AbusePatient Records regulations: The Federal rules restrict any use of the information to criminally investigate or prosecute any alcohol or drug abuse patient.[facility] Encounter Details Date Type Department Care Team (Late st Contact Info) Description 01/10/2022 Patient Msg Palliative Medicine [address] [place] [address] Thompson Bell DO [address] [place] [address] Appointment Cancellation Request Social History [...] N ot on file 10/21/2020 Data from: https://www.neighborhoodatlas.[facility]/. Last address used for calculation [...] documented as of this encounter Care Teams Inside Wirer Relationship Specialty Start Date End Date Jaimee Morales RN [address] [place] [address] [place] [address] Specialty Freelance Art Director Hematology/Oncology 06/25/19 03/26/24 Jonah Betts MD [address] [place] [address] [place] [address] Physician Hematology/Oncology 06/25/19 Maryanne Tavarez PAMalickC [address] [place] [address] [place] [address] Physician Claims Service Representative Hematology/Oncology 06/25/19 Thompson Bell DO [address] [place] [address] Consulting Hospice & Palliative Medicine 02/03/21 Anne Tran, RN Specialty Freelance Art Director Hospice & Palliative Medicine 02/03/21 documented as of this encounter
--- OUTSIDE RECORDS SUMMARY | 2025-07-05 12:12 | XMS_ITS | Encounter Summary ---
Author Organization [facility] Address [address] [place] [address] Care Team Providers Care Project Manager Industrial Name Role Phone Jaimee Morales RN Unavailable [phone] Jonah Betts MD Unavailable [phone] Maryanne Tavarez PA-C Unavailable [phone] Thompson Bell DO Unavailable Anne Tran RN Unavailable Unavailable Source Comments In the event this information is protected by the Federal Confidentiality of Alcohol and Drug AbusePatient Records regulations: The Federal rules restrict any use of the information to criminally investigate or prosecute any alcohol or drug abuse patient.[facility] Encounter Details Date Type Department Care Team (Late st Contact Info) Description 03/02/2022 Patient Msg Palliative Medicine [address] [place] [address] Thompson Bell DO [address] [place] [address] Appointment Cancellation Request Social History [...] N ot on file 10/21/2020 Data from: https://www.neighborhoodatlas.[facility]/. Last address used for calculation Not [...] documented as of this encounter Care Teams Project Manager Industrial Relationship Specialty Start Date End Date Jaimee Morales RN [address] [place] [address] [place] [address] Specialty Vision Care Associate Hematology/Oncology 06/25/19 03/26/24 Jonah Betts MD [address] [place] [address] [place] [address] Physician Hematology/Oncology 06/25/19 Maryanne Tavarez PAMalickC [address] [place] [address] [place] [address] Physician Securities Consultant Hematology/Oncology 06/25/19 Thompson Bell DO [address] [place] [address] Consulting Hospice & Palliative Medicine 02/03/21 Anne Tran, VIK Specialty Vision Care Associate Hospice & Palliative Medicine 02/03/21 documented as of this encounter
--- OUTSIDE RECORDS SUMMARY | 2025-07-05 12:12 | XMS_ITS | Encounter Summary ---
Author Organization [facility] Address [address] [place] [address] Care Team Providers Care Freelance Designer Name Role Phone Jaimee Morales RN Unavailable [phone] Jonah Betts MD Unavailable [phone] Maryanne Tavarez PA-C Unavailable [phone] Thompson Bell DO Unavailable Anne Tran RN Unavailable Unavailable Source Comments In the event this information is protected by the Federal Confidentiality of Alcohol and Drug AbusePatient Records regulations: The Federal rules restrict any use of the information to criminally investigate or prosecute any alcohol or drug abuse patient.[facility] Encounter Details Date Type Department Care Team (Late st Contact Info) Description 01/10/2022 Patient Msg Palliative Medicine [address] [place] [address] Thompson Bell DO [address] [place] [address] Appointment Cancellation Request Social History [...] N ot on file 10/21/2020 Data from: https://www.neighborhoodatlas.[facility]/. Last address used for calculation Not [...] documented as of this encounter Care Teams Freelance Designer Relationship Specialty Start Date End Date Jaimee Morales RN [address] [place] [address] [place] [address] Specialty Bottle Tester Hematology/Oncology 06/25/19 03/26/24 Jonah Betts MD [address] [place] [address] [place] [address] Physician Hematology/Oncology 06/25/19 Maryanne Tavarez PAMalickC [address] [place] [address] [place] [address] Physician Palliative Medicine Physician Hematology/Oncology 06/25/19 Thompson Bell DO [address] [place] [address] Consulting Hospice & Palliative Medicine 02/03/21 Anne Tran, RN Specialty Bottle Tester Hospice & Palliative Medicine 02/03/21 documented as of this encounter
--- OUTSIDE RECORDS SUMMARY | 2025-07-05 12:12 | XMS_ITS | Encounter Summary ---
Author Organization [facility] Address [address] [place] [address] Care Team Providers Care Bartacker Name Role Phone Jaimee Morales RN Unavailable [phone] Jonah Betts MD Unavailable [phone] Maryanne Tavarez PA-C Unavailable [phone] Thompson Bell DO Unavailable Anne Tran RN Unavailable Unavailable Source Comments In the event this information is protected by the Federal Confidentiality of Alcohol and Drug AbusePatient Records regulations: The Federal rules restrict any use of the information to criminally investigate or prosecute any alcohol or drug abuse patient.[facility] Encounter Details Date Type Department Care Team (Late st Contact Info) Description 03/25/2021 Patient Msg Palliative Medicine [address] [place] [address] Thompson Bell DO [address] [place] [address] follow up Social History Tobacco [...] N ot on file 10/21/2020 Data from: https://www.neighborhoodatlas.[facility]/. Last address used for calculation Not [...] documented as of this encounter Care Teams Bartacker Relationship Specialty Start Date End Date Jaimee Morales RN [address] [facility] [address] [address] [place] [address] Specialty Boat Engine Mechanic Hematology/Oncology 06/25/19 03/26/24 Jonah Betts MD [address] [place] [address] [place] [address] Physician Hematology/Oncology 06/25/19 Maryanne Tavarez PA-C [address] [place] [address] [place] [address] Physician Client Service Representative Hematology/Oncology 06/25/19 Thompson Bell DO [address] [place] [id number] Consulting Hospice & Palliative Medicine 02/03/21 Anne Tran, RN Specialty Boat Engine Mechanic Hospice & Palliative Medicine 02/03/21 documented as of this encounter
--- OUTSIDE RECORDS SUMMARY | 2025-07-05 12:12 | XMS_ITS | Encounter Summary ---
Author Organization [facility] Address [address] [place] [address] Care Team Providers Care Development Editor Name Role Phone Jaimee Morales RN Unavailable [phone] Jonah Betts MD Unavailable [phone] Maryanne Tavarez PA-C Unavailable [phone] Thompson Bell DO Unavailable Anne Tran RN Unavailable Unavailable Source Comments In the event this information is protected by the Federal Confidentiality of Alcohol and Drug AbusePatient Records regulations: The Federal rules restrict any use of the information to criminally investigate or prosecute any alcohol or drug abuse patient.[facility] Encounter Details Date Type Department Care Team (Late st Contact Info) Description 02/04/2021 Patient Msg Palliative Medicine [address] [place] [address] Thompson Bell DO [address] [place] [address] follow up Social History Tobacco [...] on file 10/21/2020 Data from: https://www.neighborhoodatlas.[facility]/. Last address used for calculation [...] documented as of this encounter Care Teams Development Editor Relationship Specialty Start Date End Date Jaimee Morales RN [address] [place] [address] Specialty Chip Drier Hematology/Oncology 06/25/19 03/26/24 Jonah Betts MD [address] [facility] [place] [address] Physician Hematology/Oncology 06/25/19 Maryanne Tavarez PA-C [address] [place] [address] Physician Bilingual Operator Hematology/Oncology 06/25/19 Thompson Bell DO [address] [place] [address] Consulting Hospice & Palliative Medicine 02/03/21 Anne Tran, VIK Specialty Chip Drier Hospice & Palliative Medicine 02/03/21 documented as of this encounter
--- OUTSIDE RECORDS SUMMARY | 2025-07-05 12:12 | XMS_ITS | Encounter Summary ---
Author Organization [facility] Address [address] [place] [address] Care Team Providers Care Factory Assembler Name Role Phone Jaimee Morales RN Unavailable [phone] Jonah Betts MD Unavailable [phone] Maryanne Tavarez PA-C Unavailable [phone] Thompson Bell DO Unavailable Anne Tran RN Unavailable Unavailable Source Comments In the event this information is protected by the Federal Confidentiality of Alcohol and Drug AbusePatient Records regulations: The Federal rules restrict any use of the information to criminally investigate or prosecute any alcohol or drug abuse patient.[facility] Encounter Details Date Type Department Care Team (Late st Contact Info) Description 01/13/2022 Patient Msg Navigate [facility] [place] [address] [place] [address] Provider, Ccf Establish PCP Social [...] N ot on file 10/21/2020 Data from: https://www.neighborhoodatlas.medicine.[facility].edu/. Last address used for calculation Not [...] documented as of this encounter Care Teams Factory Assembler Relationship Specialty Start Date End Date Jaimee Morales RN [address] [place] [address] [place] [address] Specialty Swimming Professor Hematology/Oncology 06/25/19 03/26/24 Jonah Betts MD [address] [place] [address] [place] [address] Physician Hematology/Oncology 06/25/19 Maryanne Tavarez PA-C [address] [place] [address] [place] [address] Physician Fiberglass Roller Hematology/Oncology 06/25/19 Thompson Bell DO [address] [place] [address] Consulting Hospice & Palliative Medicine 02/03/21 Anne Tran, VIK Specialty Swimming Professor Hospice & Palliative Medicine 02/03/21 documented as of this encounter
--- OUTSIDE RECORDS SUMMARY | 2025-07-05 12:16 | XMS_ITS | CCD ---
Author Organization [facility] Care Team Providers Care Events Intern Name Role Phone Andrew HCERY, Jaimee Santiago Unavailable Araceli Betts MD Unavailable Maryanne Tavarez PA-C Unavailable Ray DO, Thompson Unavailable Anne Tran RN Unavailable Unavailable MERARI MARK Attending Unavailable ROSE MARIE, DR GÓMEZ Primary Care Unavailable REINA .MELVIN Consulting UnavailMERARI Gonzales Admitting Unavailable LOLA ., DR HOYT Consulting Unavailable MICHELLE STROUD Consulting Unavailable ARACELI BETTS Admitting Unavailable ROSE MARIE, DR GÓMEZ Primary Care Unavailable ARACELI BETTS Attending Unavailable German Davila DO Primary Care Provider Jaimee Morales RN Unavailable [phone] Araceli Betts MD Unavailable [phone] Maryanne Tavarez PA-C Unavailable [phone] Ray DO, Thompson Unavailable Anne Tran RN Unavailable Unavailable GERMAN DAVILA Primary Care Unavailable TRINIDAD BROWN Referring UnavailGERMAN Johnson Primary Care Unavailable GABY PARKER Referring Unavailable GERMAN DAVILA Primary Care Unavailable BACK DANAY Referring Unavailable BACK DANAY Attending Unavailable BACK DANAY Admitting Unavailable Ray DO, Thompson Unavailable VALENTE LARA Attending Unavailable VALENTE LARA Admitting Unavailable GERMAN DAVILA Referring Unavailable LY SPICER Referring UnavailLY Preston Attending UnavailIMER Estevez Attending Unavailable TOMÁS GARRETT Referring Unavailable German Davila DO Primary Care Provider Santos Corona DO Attending Provider [phone] Santos Corona Attending Unavailable Santos Corona Admitting Unavailable VALENTE LEW JR Admitting Unavailable VALENTE LEW JR Attending Unavailable GERMAN DAVILA Primary Care Unavailable JOSE G MCDONOUGH Attending Unavailable GERMAN DAVILA Primary Care Unavailable NAINA PUCKETT Referring Unavailable RHYS LEIGH Admitting Unavailable MAXIMO FRANCE Consulting Unavailable Allergies Allergy Classification Reported Allergen(s) Allergy Type Date of Onset Reaction(s) Facility (20 sources) Acetaminophen / HYDROcodone; Translations: [HYDROCODONE-ACETA MINOPHEN] Drug Allergy 04-24-2019 Unknown [facility] (1 source) Acetaminophen / HYDROcodone Drug Allergy [facility] Medications Current Medications Medication Drug Class(es) Dates Sig (Normalized) Sig (Original) Acetaminophen (4 sources) Start: 01-30-2025 acetaminophen (TYLENOL) tablet 650 mg Start: 02-16-2023 End: 02-26-2023 take 2 tablets by mouth every eight hours as needed acetaminophen (TYLENOL EXTRA STRENGTH) 500 mg tablet Take 2 tablets by mouth every 8 hours as needed for pain or fever (specify) for up to 10 days. 60 tablet 0 02/16/2023 02/26/2023 Active Comment on above: Take 2 tablets by mo [facility] every 8 hours as needed for pain or fever (specify) for up to 10 days. aspirin 81 mg delayed release oral tablet (10 sources) Platelet Aggregation Inhibitor, Nonsteroidal Anti-inflammatory Drug Start: 023 End: 023 take 1 tablet by mouth twice daily aspirin, enteric coated (ECOTRIN LOW STRENGTH) 81 mg EC tablet Take 1 tablet by mouth twice daily for 14 days. 28 tablet 0 03/16/2023 03/30/2023 Active Comment on above: Take 1 tablet by [facility] twice daily for 14 days. calcium chloride 0.0014 meq/ml / potassium chloride 0.004 meq/ml / sodium chloride 0.103 meq/ml / sodium lactate 0.028 meq/ml injectable solution (1 source) Start: IntraVENous, at 125 mL/hr, CONTINUOUS, Starting on Tue04/12/25 at 1115, Pre-op (day of surgery) doxycycline hyclate 100 mg oral tablet (1 source) Tetracycline-class Drug Start: End: take 1 tablet by mouth twice daily doxycycline hyclate (VIBRA-TABS) 100 MG tablet Take 1 tablet by mouth 2 times daily for 3 days 6 tablet 04/12/2025 04/15/2025 Active glucagon (rdna) 1 mg injection (1 source) Antihypoglycemic Agent Start: 1 mg, SubCUTAneous, PRN, Starting on Tue01/30/25 at 0612, Until Discontinued, Low blood sugar, Blood glucose LESS THAN 70 mg/dL and patient NOT ALERT or NPO and does not have IV access., After administration, attempt intravenous access and start dextrose 10% at 100 mL/hr. Repeat blood glucose in 15 minutes x 2 and notify provider. Reconstitute powder for injection by adding 1 mL of insurance salesperson-suppl ied sterile diluent or sterile water for injection to a vial containing 1 mg of the drug, to provide solutions containing 1 mg/mL. Shake vial gently to dissolve. 1 ml heparin sodium, porcine 5000 unt/ml prefilled syringe (5 sources) Unfractionated Heparin, Anti-coagulant Start: inject 1 dose by subcutaneous injection three times daily 5,000 Units, SubCUTAneous, EVERY 8 HOURS SCHEDULED (3 times per day), First dose on Tue02/03/25 at 1400, Until Discontinued, On hold since Tue02/04/2025 at 0917 until manually unheld Start: 01-30-2025 1,600 Units, I ntraCATHeter, PRN, Starting on Tue01/30/25 at 1024, Until Discontinued, Line Care, For installation into each catheter limb Venous 1600 units To be given in Dialysis Start: 01-30-2025 1,900 Units, I ntraCATHeter, PRN, Starting on Tue01/30/25 at 0848, Until Discontinued, Line Care, For installation into each catheter limb Arterial 1900 units To be given in Dialysis Start: 01-30-2025 End: 01-30-2025 1,600 Units, Intercatheter, ONCE, 1 dose, On Tue01/30/25 at 0730 Start: 01-30-2025 End: 01-30-2025 1,900 Units, Intercatheter, ONCE, 1 dose, On Tue01/30/25 at 0730 ketorolac tromethamine 10 mg oral tablet (1 source) Nonsteroidal Anti-inflammatory Drug, Cyclooxygenase Inhibitor Start: 04-12-2025 take 1 tablet by mouth every six hours as needed for pain ketorolac (TORADOL) 10 MG tablet Take 1 tablet by mouth every 6 hours as needed for Pain 15 tablet 04/12/2025 Active labetalol (NORMODYNE;TRANDATE ) injection 10 mg (1 source) Start: 04-12-2025 labetalol (NORMODYNE;TRANDAT E) injection 10 mg lidocaine hydrochloride 0.02 mg/mg topical gel (1 source) Antiarrhythmic, Amide Local Anesthetic Start: 01-31-2025 Topical, PRN, Pain, Starting on Kaitlin 01/31/25 at 1050 50 ml magnesium sulfate 40 mg/ml injection (1 source) Start: 01-30-2025 2,000 mg, IntraVENous, at 25 mL/hr, Administer over 2 Hours, PRN, Other, Per IV Magnesium Replacement Protocol, Starting on Tue01/30/25 at 0423, Mg Lab Replacement Action 1.4-1.6 2 gram IVPB x 1 doses (2 gram Total) 1.0-1.3 2 gram IVPB x 2 doses (4 gram Total) less than 1.0 CALL PHYSICIAN and 2 gram IVPB x 2 doses (4 gram Total) Infuse at 1 gram/hr Repeat Mag level 1 hour after final administration Protocol not for use in Patients with CrCl less than 30mL/min naloxone 0.4 mg in 10 mL sodium chloride syringe (1 source) Start: 04-12-2025 IntraVENous, PRN, Opioid Reversal, Starting on Tue04/12/25 at 1215, PRN if respiratory rate is less than 6/min and patient is difficult to arouse then notify physician STAT. Mix 9 mL of sodium chloride 0.9% with 0.4 mg (1 mL) of naloxone (NARCAN) in 10 mL syringe. (Note: dilution is 0.04 mg/mL) Give 0.08 mg (2 mL of special dilution), slow IV push, repeat up to 0.4 mg (10 mL) or until patient is responsive to physical stimulation and respiratory rate is equal to or greater than 6 breaths/min. Continue to observe, if no response within 3 minutes of administration of 0.4 mg (10 mL) total, repeat dose (0.4 mg as administered previously). Concentration 0.04 mg/mL, PACU only 24 hr nicotine 0.583 mg/hr transdermal system (1 source) Cholinergic Nicotinic Agonist Start: 01-31-2025 apply 1 dose transdermal route once daily at bedtime 1 patch, TransDERmal, Administer over 24 Hours, DAILY, First dose on Kaitlin 01/31/25 at 0900, Apply new patch to nonhairy, clean, dry skin on the upper body or upper outer arm. Rotate patch sites. Notify pharmacy if patient or provider prefers patch to be removed at bedtime and replaced in the morning. Hazardous Medication -- Refer to facility policy for handling and disposal. ondansetron (ZOFRAN-ODT) disintegrating tablet 4 mg (1 source) Start: 01-30-2025 ondansetron (ZOFRAN-ODT) disintegrating tablet 4 mg 24 hr oxybutynin chloride 5 mg extended release oral tablet (1 source) Cholinergic Muscarinic Antagonist Start: 04-12-2025 End: 04-26-2025 take 1 tablet by mouth once daily oxyBUTYnin (DITROPAN XL) 5 MG extended release tablet Take 1 tablet by mouth daily for 14 days 14 tablet 04/12/2025 04/26/2025 Active oxyCODONE hydrochloride 5 mg oral tablet (9 sources) Opioid Agonist Start: 02-16-2023 End: 03-11-2023 take 1 tablet by mouth every six hours as needed for pain oxyCODONE IR (ROXICODONE) 5 mg immediate release tablet Indications: S/P flap graft Take 1 tablet by mouth every 6 hours as needed for pain for up to 7 days. for pain. 28 tablet 0 03/04/2023 03/11/2023 Active Comment on above: Take 1-2 tablets by mouth every 6 hours as needed for pain for up to 7 days. for pain. Take 1 tablet by kanika th every 6 hours as needed for pain for up to 7 days. for pain. Do not start before February 23, 2023. Take 1 tablet by kanika th every 6 hours as needed for pain for up to 7 days. for pain. phenazopyridine hydrochloride 100 mg oral tablet (1 source) Start: 04-12-2025 End: 04-17-2025 take 1 tablet by mouth three times daily as needed for pain phenazopyridine (PYRIDIUM) 100 MG tablet Take 1 tablet by mouth 3 times daily as needed for Pain 15 tablet 04/12/2025 04/17/2025 Active Potassium Chloride (1 source) Start: 01-30-2025 potassium chloride 20 mEq/50 mL IVPB (Central Line) 5 ml sodium chloride 9 mg/ml injection (11 sources) Start: 04-12-2025 5-40 mL, IntraVENous, EVERY 12 HOURS SCHEDULED (2 times per day), First dose on Tue04/12/25 at 2100, Until Discontinued, For Line Patency: Peripheral IV = 5 mL; Midline or Central Line = 10 mL/lumen. If following IV push medication, administer flush at same rate as the IV push. Flush volume is determined by type of infusion therapy being given. For non-viscous solutions use: Peripheral IV = 5 mL Midline or Central Line = 10 mL/lumen For viscous solutions (i.e. blood components, parenteral nutrition, contrast media, or after obtaining blood sample) use: Peripheral IV = 10 mL Midline or Central Line = 20 mL/lumen, PACU only Start: 04-12-2025 IntraVENous, a t 125 mL/hr, CONTINUOUS, Starting on Tue04/12/25 at 1115, Pre-op (day of surgery) Start: 04-12-2025 take 20 mL intraveno usly every hour IntraVENous, at 5-250 mL/hr, PRN, if patient receiving piggyback infusions and maintenance fluids are not ordered OR KVO fluids to protect IV site / prevent frequent line interruptions/ long duration, Starting on Tue04/12/25 at 1215, For piggyback infusion, administer at same rate as piggyback for a total of 25 mL. Enter 25 mL into dose field and piggyback rate into rate field of order. If piggyback is infusing at a rate less than 100 mL/hr, enter 25 mL into dose field and 100 mL/hr into rate field of order. For KVO fluids, enter rate of 20 mL/hr or less into rate field of order., PACU only Start: 04-12-2025 5-40 mL, Intra VENous, EVERY 12 HOURS SCHEDULED (2 times per day), First dose on Tue04/12/25 at 1115, Until Discontinued, For Line Patency: Peripheral IV = 5 mL; Midline or Central Line = 10 mL/lumen. If following IV push medication, administer flush at same rate as the IV push. Flush volume is determined by type of infusion therapy being given. For non-viscous solutions use: Peripheral IV = 5 mL Midline or Central Line = 10 mL/lumen For viscous solutions (i.e. blood components, parenteral nutrition, contrast media, or after obtaining blood sample) use: Peripheral IV = 10 mL Midline or Central Line = 20 mL/lumen, Pre-op (day of surgery) Start: 04-12-2025 5-40 mL, Intra VENous, PRN, Starting on Tue04/12/25 at 1215, Until Discontinued, Line Care, After every IV line use, For Line Patency: Peripheral IV = 5 mL; Midline or Central Line = 10 mL/lumen. If following IV push medication, administer flush at same rate as the IV push. Flush volume is determined by type of infusion therapy being given. For non-viscous solutions use: Peripheral IV = 5 mL Midline or Central Line = 10 mL/lumen For viscous solutions (i.e. blood components, parenteral nutrition, contrast media, or after obtaining blood sample) use: Peripheral IV = 10 mL Midline or Central Line = 20 mL/lumen, PACU only Start: 01-30-2025 5-40 mL, Intra VENous, EVERY 12 HOURS SCHEDULED (2 times per day), First dose on Tue01/30/25 at 0900, Until Discontinued, For Line Patency: Peripheral IV = 5 mL; Midline or Central Line = 10 mL/lumen. If following IV push medication, administer flush at same rate as the IV push. Flush volume is determined by type of infusion therapy being given. For non-viscous solutions use: Peripheral IV = 5 mL Midline or Central Line = 10 mL/lumen For viscous solutions (i.e. blood components, parenteral nutrition, contrast media, or after obtaining blood sample) use: Peripheral IV = 10 mL Midline or Central Line = 20 mL/lumen Start: 01-30-2025 IntraVENous, a t 125 mL/hr, CONTINUOUS, Starting on Tue01/30/25 at 0500 Start: 01-30-2025 IntraVENous, a t 5-250 mL/hr, PRN, if patient receiving piggyback infusions and maintenance fluids are not ordered, Starting on Tue01/30/25 at 0423, For piggyback infusion, administer at same rate as piggyback for a total of 25 mL. Enter 25 mL into dose field and piggyback rate into rate field of order. If piggyback is infusing at a rate less than 100 mL/hr, enter 25 mL into dose field and 100 mL/hr into rate field of order. Start: 01-30-2025 5-40 mL, Intra VENous, PRN, Starting on Tue01/30/25 at 0423, Until Discontinued, Line Care, After every IV line use, For Line Patency: Peripheral IV = 5 mL; Midline or Central Line = 10 mL/lumen. If following IV push medication, administer flush at same rate as the IV push. Flush volume is determined by type of infusion therapy being given. For non-viscous solutions use: Peripheral IV = 5 mL Midline or Central Line = 10 mL/lumen For viscous solutions (i.e. blood components, parenteral nutrition, contrast media, or after obtaining blood sample) use: Peripheral IV = 10 mL Midline or Central Line = 20 mL/lumen traZODone hydrochloride 50 mg oral tablet (4 sources) Serotonin Reuptake Inhibitor Start: 02-16-2022 End: 03-18-2022 take 2 tablets by mouth once daily at bedtime traZODone (DESYREL) 50 mg tablet Take 2 tablets by mouth daily at bedtime. 60 tablet 0 02/16/2022 03/18/2022 Active Comment on above: Take 2 tablets by [facility] daily at bedtime. Completed/Discontinued Medications Medication Drug Class(es) Dates Sig (Normalized) Sig (Original) ascorbic acid 500 mg oral tablet (10 sources) Vitamin C Start: 02-16-2023 End: 03-18-2023 take 1 tablet by mouth once daily ascorbic acid, vitamin C, (VITAMIN C) 500 mg tablet Take 1 tablet by mouth once daily. 30 tablet 0 02/16/2023 Active Comment on above: Take 1 tablet by [facility] once daily. baclofen 10 mg oral tablet (9 sources) gamma-Aminobutyric Acid-ergic Agonist Start: 02-16-2023 End: 03-18-2023 take 1 tablet by mouth three times daily baclofen (LIORESAL) 10 mg tablet Take 1 tablet by mouth three times daily. 90 tablet 0 02/16/2023 03/18/2023 Comment on above: Take 1 tablet by kanika three times daily. 100 ml calcium gluconate 20 mg/ml injection (1 source) Start: 01-30-2025 End: 01-30-2025 2,000 mg, IntraVENous, at 50 mL/hr, Administer over 120 Minutes, ONCE, On Tue01/30/25 at 0615, For 1 dose cefepime (MAXIPIME) 1,000 mg in sodium chloride 0.9 % 50 mL IVPB (addEASE) (1 source) Start: 01-30-2025 End: 02-06-2025 1,000 mg, IntraVENous, at 12.5 mL/hr, Administer over 240 Minutes, EVERY 24 HOURS, First dose on Tue01/30/25 at 0730, For 8 doses, Use 20mm (GREEN) addEASE Adapter Prep Instructions: Attach medication vial to one 20mm (GREEN) addEASE adapter. Michael fluid bag with adapter, mix, and administer per order. darolutamide 300 mg oral tablet (1 source) Start: 02-22-2025 take 2 tablets by mouth at bedtime Darolutamide (NUBEQA) 300 MG TABS Indications: Prostate cancer metastatic to bone (HCC) Take 600 mg by mouth in the morning and at bedtime Take with food. 120 tablet 11 02/22/2025 Suspended degarelix 120 mg injection (1 source) Start: 02-01-2025 End: 02-01-2025 inject 1 dose by subcutaneous injection once 240 mg, SubCUTAneous, ONCE, 1 dose, On Tue02/01/25 at 1700, Hazardous Medication -- Refer to facility policy for handling and disposal. diclofenac sodium 75 mg delayed release oral tablet (20 sources) Nonsteroidal Anti-inflammatory Drug Start: 01-11-2022 End: 02-15-2022 take 1 tablet by mouth twice daily diclofenac, EC, (VOLTAREN) 75 mg EC tablet Take 1 tablet by mouth twice daily. 60 tablet 1 02/15/2022 Active Comment on above: Take 1 tablet by [facility] twice daily. docusate sodium 100 mg oral capsule (8 sources) Start: 02-16-2023 End: 03-08-2023 take 1 capsule by mouth twice daily docusate sodium (COLACE) 100 mg capsule Take 1 capsule by mouth twice daily for 20 days. 40 capsule 0 02/16/2023 03/08/2023 Comment on above: Take 1 capsule by [facility] twice daily for 20 days. 0.4 ml enoxaparin sodium 100 mg/ml prefilled syringe (9 sources) Low Molecular Weight Heparin Start: 02-17-2023 End: 03-16-2023 inject 0.4 mL by subcutaneous injection once daily enoxaparin (LOVENOX) 40 mg/0.4 mL Inject 0.4 mL subcutaneously once daily for 27 days. 10.8 mL 0 02/17/2023 03/16/2023 Comment on above: Inject 0.4 mL subcut aneously once daily for 27 days. enzalutamide 80 mg oral tablet (20 sources) Androgen Receptor Inhibitor Start: 11-12-2021 End: 03-14-2023 take 2 tablets by mouth once daily enzalutamide (XTANDI) 80 mg tablet TAKE 2 TABLETS (160 MG) BY MOUTH ONCE DAILY 60 tablet 2 02/12/2023 Active Comment on above: Take 2 tablets (160 mg) by mouth once daily. TAKE 2 TABLETS (160 MG) BY MOUTH ONCE DAILY 2 ml fentaNYL 0.05 mg/ml injection (6 sources) Opioid Agonist Start: 02-04-2025 End: 02-05-2025 PRN, Starting on Tue02/05/25 at 1025, Until Tue02/05/25 at 1025, Intra-op Start: 01-30-2025 End: 01-30-2025 take 1 dose by mouth every hour 50 mcg, IntraVENous, ONCE, 1 dose, On Tue01/30/25 at 0615, If oral and IV narcotics ordered, use oral first and only use IV if oral is ineffective or cannot take oral. Do Not give oral and IV within 1 hour of each other unless specifically ordered. ferrous sulfate 325 mg oral tablet (9 sources) Start: 02-16-2023 End: 03-18-2023 take 1 tablet by mouth twice daily ferrous sulfate (IRON) 325 mg (65 mg iron) tablet Take 1 tablet by mouth twice daily. 60 tablet 0 02/16/2023 03/18/2023 Comment on above: Take 1 tablet by kanika twice daily. gabapentin 300 mg oral capsule (20 sources) Anti-epileptic Agent Start: 05-27-2022 End: 05-04-2023 take 2 capsules by mouth three times daily gabapentin (NEURONTIN) 300 mg capsule Take 2 capsules by mouth three times daily for 90 days. 180 capsule 2 05/27/2022 05/04/2023 Discontinued (Other) Start: 01-25-2022 End: 05-27-2022 take 1 tablet by mouth three times daily gabapentin (NEURONTIN) 600 mg tablet Take 1 tablet by mouth three times daily for 90 days. 90 tablet 2 01/25/2022 05/27/2022 Discontinued Comment on above: Take 1 tablet by kanika three times daily for 90 days. Take 2 capsules by [facility] three times daily for 90 days. Glucose (4 sources) Start: 01-30-2025 End: 01-30-2025 25 g, IntraVENous, ONCE, 1 dose, On Tue01/30/25 at 0615 Start: 01-30-2025 IntraVENous, a t 100 mL/hr, CONTINUOUS PRN, if blood glucose remains LESS THAN 70 mg/dL after 2 dextrose 10% intravenous boluses or administration of glucagon, Starting on Tue01/30/25 at 0612, If blood glucose fails to stabilize after 2 dextrose 10% intravenous boluses or glucagon administration, start dextrose 10% infusion at 100 mL/hour and repeat blood glucose at 30 and 60 minutes. If blood glucose is GREATER THAN 70 mg/dL after 60 minutes, discontinue dextrose 10% infusion. Start: 01-30-2025 dextrose bolus 10% 125 mL Start: 01-30-2025 16 g (4 tablet ), Oral, PRN, Starting on Tue01/30/25 at 0612, Until Discontinued, Low blood sugar, If blood glucose is LESS THAN 70 mg/dL and patient is alert and tolerating oral. Give 4 tablets (16g) Repeat blood glucose in 15 minutes. If blood glucose is LESS THAN 70 mg/dL, repeat treatment and recheck blood glucose in 15 minutes x 2. If blood glucose remains LESS THAN 70 mg/dL, notify provider. 1 ml HYDROmorphone hydrochloride 1 mg/ml cartridge (4 sources) Opioid Agonist Start: 04-12-2025 0.5 mg, IntraV ENous, EVERY 5 MIN PRN, 2 doses, Starting on Tue04/12/25 at 1215, Until Discontinued, Pain Severe (7-10), For Phase I. If Phase II oral narcotics have been administered in the last 60 minutes, do not administer IV narcotics unless specifically approved by provider., PACU only Start: 04-12-2025 0.3 mg, IntraV ENous, EVERY 5 MIN PRN, 2 doses, Starting on Tue04/12/25 at 1215, Until Discontinued, Pain Moderate (4-6), allowed for higher pain score per patient request, For Phase I. If Phase II oral narcotics have been administered in the last 60 minutes, do not administer IV narcotics unless specifically approved by provider., PACU only Start: 01-30-2025 1 mg, IntraVEN ous, ONCE PRN, Starting on Tue01/30/25 at 0654, Until Discontinued, Second line for procedure hyoscyamine sulfate 0.125 mg sublingual tablet (1 source) Start: 01-30-2025 take 0.125 mg under the tongue every four hours as needed 0.125 mg, SubLINGual, EVERY 4 HOURS PRN, Starting on Tue01/30/25 at 1347, Until Discontinued, Cramping insulin lispro 100 unt/ml injectable solution (1 source) Insulin Analog Start: 02-01-2025 0-4 Units, SubCUTAneous, 4 TIMES DAILY BEFORE MEALS & NIGHTLY, First dose on Tue02/01/25 at 2215, Until Discontinued, Corrective Low Dose Algorithm Glucose: Dose: 70-179 No Insulin 180-249 1 Unit 250-299 2 Units 300-349 3 Units Over 349 4 Units and notify physician Administer as soon as possible within 60 minutes of last blood glucose check insulin, regular, human 100 unt/ml injectable solution (1 source) Insulin Start: 01-30-2025 End: 01-30-2025 10 Units, IntraVENous, ONCE, 1 dose, On Tue01/30/25 at 0630 iohexol (OMNIPAQUE 240) IV/PO solution 50 mL (2 sources) Start: 02-05-2025 End: 02-05-2025 50 mL, Other, IMG ONCE PRN, 1 dose, Starting on Tue02/05/25 at 1026, Until Tue02/05/25 at 1027, Other Start: 02-04-2025 End: 02-04-2025 take 1 dose by mouth once 50 mL, Oral, IMG ONCE PRN, 1 dose, Starting on Tue02/04/25 at 1224, Until Tue02/04/25 at 1225, Other meloxicam 15 mg oral tablet (5 sources) Nonsteroidal Anti-inflammatory Drug Start: 02-16-2023 End: 03-03-2023 take 1 tablet by mouth once daily meloxicam (MOBIC) 15 mg tablet Take 1 tablet by mouth once daily for 15 days. 15 tablet 0 02/16/2023 03/03/2023 Comment on above: Take 1 tablet by kanika th once daily for 15 days. methocarbamol 750 mg oral tablet (1 source) Muscle Relaxant Start: 01-30-2025 End: 01-30-2025 750 mg, Oral, 4 TIMES DAILY, 4 doses, First dose (after last modification) on Tue01/30/25 at 0630, Last dose on Tue01/30/25 at 2200 metoprolol tartrate 25 mg oral tablet (1 source) beta-Adrenergic Katherine Start: 02-03-2025 12.5 mg, Oral, 2 TIMES DAILY, First dose on Tue02/03/25 at 1000, Until Discontinued, Hold for systolic blood pressure less than 100, heart rate less than 60 mirtazapine 15 mg oral tablet (20 sources) Start: 01-13-2022 End: 05-04-2023 take 1 tablet by mouth once daily at bedtime mirtazapine (REMERON) 15 mg tablet Take 1 tablet by mouth daily at bedtime. 30 tablet 0 05/27/2022 05/04/2023 Discontinued Comment on above: Take 1 tablet by kanika th daily at bedtime. naloxone hydrochloride 40 mg/ml nasal spray (20 sources) Opioid Antagonist Start: 01-08-2021 End: 05-04-2023 naloxone 4 mg/actuation nasal spray (NARCAN) Use 1 spray in one nostril as needed for overdose. May repeat every 2 to 3 min in alternating nostrils until medical assistance is available 4 Each 0 05/27/2022 05/04/2023 Discontinued Comment on above: Use 1 spray in one n ostril as needed for overdose. May repeat every 2 to 3 min in alternating nostrils until medical assistance is available pantoprazole 40 mg delayed release oral tablet (20 sources) Proton Pump Inhibitor Start: 01-11-2022 End: 05-04-2023 take 1 tablet by mouth once daily pantoprazole DR (PROTONIX) 40 mg tablet Take 1 tablet by mouth once daily. 30 tablet 1 05/27/2022 05/04/2023 Discontinued Comment on above: Take 1 tablet by kanika once daily. polyethylene glycol [id number] mg powder for oral solution (1 source) Osmotic Laxative Start: 01-30-2025 17 g, Oral, DAILY PRN, Starting on Tue01/30/25 at 0423, Until Discontinued, Constipation, First line therapy for constipation prochlorperazine 5 mg/ml injectable solution (20 sources) Phenothiazine Start: 04-12-2025 5 mg, IntraVENous, ONCE PRN, 1 dose, Starting on Tue04/12/25 at 1215, Until Discontinued, Nausea, Initial antiemetic therapy., PACU only Start: 02-15-2022 End: 05-04-2023 take 1 tablet by mouth every six hours as needed prochlorperazine (COMPAZINE) 10 mg tablet Take 1 tablet by mouth every 6 hours as needed. 30 tablet 2 05/27/2022 05/04/2023 Discontinued Comment on above: Take 1 tablet by kanika every 6 hours as needed. relugolix (ORGOVYX) 120 MG chemo tablet (1 source) Start: 02-22-2025 take 1 tablet by mouth once daily relugolix (ORGOVYX) 120 MG chemo tablet Indications: Prostate cancer metastatic to bone (HCC) Take 1 tablet by mouth daily 30 tablet 11 02/22/2025 Suspended 10 ml sodium bicarbonate 84 mg/ml injection (2 sources) Start: 01-30-2025 End: 01-30-2025 50 mEq, IntraVENous, ONCE, 1 dose, On Tue01/30/25 at 0715 tamsulosin hydrochloride 0.4 mg oral capsule (20 sources) alpha-Adrenergic Katherine Start: 02-07-2025 End: 02-06-2025 take 1 capsule by mouth once daily tamsulosin (FLOMAX) 0.4 MG capsule Take 1 capsule by mouth daily 30 capsule 02/07/2025 Suspended Start: 02-07-2025 take 1 capsule by mo uth once daily tamsulosin (FLOMAX) 0.4 MG capsule Take 1 capsule by mouth daily 30 capsule 02/07/2025 Active Start: 01-30-2025 take 0.4 mg by mouth once daily at mealtime 0.4 mg, Oral, DAILY, First dose on Tue01/30/25 at 0900, Until Discontinued, Do not crush or break. Give 30 minutes after a full meal to limit risk of orthostatic hypotension/falls. Start: 01-15-2022 End: 05-04-2023 tamsulosin (FLOMAX) 0.4 mg T dudley 2 capsules by mouth daily 30 minutes after the same meal each day. 180 capsule 11 05/27/2022 05/04/2023 Discontinued Comment on above: Take 2 capsules by m outh daily 30 minutes after the same meal each day. Problems Active Problems Problem Classification Problem Date Documented Date Episodic/Chronic Acute and unspecified renal failure (20 sources) Acute injury of kidney; Translations: [Acute kidney failure, unspecified] Onset: 01-24-2023 01-24-2023 Episodic Bacterial infection; unspecified site (2 sources) Streptococcus, group A, as the cause of diseases classified elsewhere; Translations: [Streptococcus, group A, as the cause of diseases classified elsewhere] Onset: 02-28-2023 Episodic Cancer of prostate (20 sources) Prostate cancer metastatic to bone; Translations: [Malignant neoplasm of prostate] Onset: 04-26-2019 02-24-2021 Chronic Cancer of prostate (4 sources) Personal history of malignant neoplasm of prostate; Translations: [History of malignant neoplasm of prostate] Onset: 01-25-2023 01-30-2025 Episodic Cancer; other and unspecified primary (1 source) Personal history of malignant neoplasm of bone; Translations: [PERSONAL HX MALIG NEOPLASM BONE] Onset: 01-25-2023 Episodic Fluid and electrolyte disorders (20 sources) Hyperkalemia; Translations: [Hyperkalemia] Onset: 01-24-2023 01-24-2023 Episodic Genitourinary symptoms and ill-defined conditions (6 sources) Urinary tract obstruction; Translations: [Obstructive and reflux uropathy, unspecified] Onset: 01-30-2025 01-30-2025 Episodic Hyperplasia of prostate (3 sources) Benign prostatic hypertrophy with outflow obstruction; Translations: [Benign prostatic hyperplasia with lower urinary tract symptoms] Onset: 03-04-2025 04-12-2025 Chronic Nutritional deficiencies (16 sources) Deficiency of macronutrients; Translations: [Unspecified severe protein-calorie malnutrition] Onset: 01-26-2023 01-26-2023 Chronic Other aftercare (1 source) Other jail (current) drug therapy; 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] Onset: 01-25-2023 Episodic Other connective tissue disease (1 source) Presence of left artificial hip joint; Translations: [PRESENCE LEFT ARTIFICIAL HIP JOINT] Onset: 01-25-2023 Chronic Other connective tissue disease (3 sources) Other specified soft tissue disorders; Translations: [OTHER SPEC SOFT TISSUE DISORDERS] Onset: 01-23-2023 Episodic Other connective tissue disease (2 sources) Abscess of bursa, left hip; Translations: [Abscess of bursa, left hip] Onset: 02-21-2023 Episodic Other diseases of kidney and ureters (1 source) Other obstructive and reflux uropathy; Translations: [Other obstructive and reflux uropathy] Onset: 03-04-2025 Episodic Other liver diseases (1 source) Acute and subacute hepatic failure without coma; Translations: [ACUTE SUBACUTE HEP FAILURE W/O COMA] Onset: 01-25-2023 Episodic Other nervous system disorders (15 sources) Chronic pain; Translations: [Other chronic pain] Onset: 01-24-2023 01-24-2023 Chronic Residual codes; unclassified (1 source) Postoperative state; Translations: [Other specified postprocedural states] Episodic Residual codes; unclassified (1 source) History of operative procedure on hip; Translations: [Other specified postprocedural states] Episodic Secondary malignancies (20 sources) Secondary malignant neoplasm of bone; Translations: [Secondary malignant neoplasm of bone] Onset: 04-25-2019 04-25-2019 Chronic Septicemia (except in labor) (2 sources) Sepsis, unspecified organism; Translations: [Severe sepsis without septic shock] Onset: 01-25-2023 Episodic Skin and subcutaneous tissue infections (2 sources) Cutaneous abscess of left lower limb; Translations: [Cutaneous abscess of left lower limb] Onset: 02-28-2023 Episodic Substance-related disorders (20 sources) Tobacco user; Translations: [Nicotine dependence, unspecified, uncomplicated] Onset: 04-26-2019 02-24-2021 Chronic Unclassified (1 source) CONTACT W/AND (SUSP) EXPOS COVID-19; Translations: [CONTACT W/AND (SUSP) EXPOS COVID-19] Onset: 01-25-2023 Past or Other Problems Problem Classification Problem Date Documented Da te Episodic/Chronic Lymphadenitis (20 sources) Lymphadenopathy; Translations: [Enlarged lymph nodes, unspecified] Onset: 04-25-2019 04-25-2019 Episodic Other connective tissue disease (17 sources) Necrotizing fasciitis; Translations: [Necrotizing fasciitis] Onset: 01-23-2023 01-23-2023 Episodic Other connective tissue disease (3 sources) Necrotizing fasciitis; Translations: [NECROTIZING FASCIITIS] Onset: 01-24-2023 Episodic Pathological fracture (20 sources) Pathological fracture of neck of femur; Translations: [Pathological fracture, unspecified femur, initial encounter for fracture] Onset: 02-24-2021 02-24-2021 Episodic Results Test Name Value Interpretation Reference Range Facility Stone Analysison 04-17-2025 Calculi description See Note Normal [facility] Comment on above: Result Comment: (NOT E) Specimen consists of three delcid fragments. The total weight is 110 mg. Performed By: #### A STONE #### [facility] [address] [place] [id number] [address] [place] Police Sergeant: Julio Cesar Berry MD Composition See Note [facility] Comment on above: Result Comment: (NOT E) Sample composed primarily of organic material not [...] composition determined by FTIR analysis. Performed By: [facility] [address] [place] [id number] Tent Assembler: Sam Mcghee MD, PhD CLIA Number: [id number] Performed By: #### A STONE #### [facility] [address] [place] [id number] [address] [place] Police Sergeant: Julio Cesar Berry MD Mass 110 mg [facility] Comment on above: Performed By: #### A STONE #### [facility] [address] [place], [place] [id number] [place] Police Sergeant: Julio Cesar Berry MD FLUORO FOR SURGICAL PROCEDUR ESon 04-12-2025 FLUORO FOR SURGICAL PROCEDURES Radiology exam is complete. No Radiologist dictation. Please follow up with ordering provider. Final result Normal [facility] Guidance-- during surgeryon 04-12-2025 Radiology exam is complete. No Radiologist dictation. Please follow up with ordering provider. [facility] CON[facility] Urine Cultureon 04-05-2025 Bacteria identified Cx Nom (U) ORGANISM: Klebsiella oxytoca (O:KLEOXY) [place] Count >100,000 ORGANISM: Klebsiella oxytoca (O:KLEOXY) [place] Count 75,000 Aerobic DILLON Charge (NMIC56) ----- SUSCEPTIBILITY ---- ORGANISM: O:KLEOXY ANTIBIOTIC INTERPRETATION DILLON Amikacin S <16 Amoxacillin/K Clavulanate S <8 Ampicillin/Sulbactam S 88/4 Aztreonam S <4 Cefazolin S 8 Cefepime S <2 Ceftazidime S <1 Ceftazidime/Avibacta m S <4 Ceftolozane/Tazobact am S <2 Ceftriaxone S <1 Cefuroxime S <4 Ciprofloxacin S <0.25 Ertapenem S <0.5 Gentamicin S <2 Levofloxacin S <0.5 Meropenem S <1 Meropenem/Vaborbacta m S <2 Nitrofurantoin S <32 Piperacillin/Tazobac huizar S <8 Tetracycline S <4 Tigecycline S <2 Tobramycin S <2 Trimethoprim/Sulfame thoxazole S <0.5 Aerobic DILLON Charge (NMIC56) ----- SUSCEPTIBILITY ---- ORGANISM: O:KLEOXY ANTIBIOTIC INTERPRETATION DILLON Amikacin S <16 Amoxacillin/K Clavulanate S <8 Ampicillin/Sulbactam S 88/4 Aztreonam S <4 Cefazolin I 16 Cefepime S <2 Ceftazidime S <1 Ceftazidime/Avibacta m S <4 Ceftolozane/Tazobact am S <2 Ceftriaxone S <1 Cefuroxime S <4 Ciprofloxacin S <0.25 Ertapenem S <0.5 Gentamicin S <2 Levofloxacin S <0.5 Meropenem S <1 Meropenem/Vaborbacta m S <2 Nitrofurantoin S <32 Piperacillin/Tazobac huizar S <8 Tetracycline S <4 Tigecycline S <2 Tobramycin S <2 Trimethoprim/Sulfame thoxazole S <0.5 S = SUSCEPTIBLE I = INTERMEDIATE R = RESISTANT BLANK = DATA NOT AVAILABLE, OR DRUG NOT ADVISABLE OR TESTED R* = RESISTANCE DUE TO EXTENDED SPECTRUM BETA-LACTAMASES ESBL = EXTENDED SPECTRUM BETA-LACTAMASE TFG = THYMIDINE-DEPENDENT STRAIN [place]ANG[place] = BETA-LACTAMASE POSITIVE IB = INDUCIBLE BETA-LACTAMASE. APPEARS IN PLACE OF 'S' WITH SPECIES KNOWN TO POSSESS INDUCIBLE BETA-LACTAMASES. POTENTIALLY THEY MAY BECOME RESISTANT TO ALL B-LACTAM DRUGS. PERFORMED BY: [place] [address] PATHOLOGIST BAT LATHE OPERATOR JUAN MARTINEZ M.D. Normal [facility] Comment on above: Performed By: #### C UU #### [address] Basic Metabolic Panelon 03-2 Anion gap [Moles/Vol] 10 mmol/L 9 - 16 mmol/L [facility] Calcium [Mass/Vol] 8.4 mg/dL Low 8.6 - 10. 4 mg/dL [facility] Chloride [Moles/Vol] 106 mmol/L 98 - 10 7 mmol/L [facility] CO2 [Moles/Vol] 20 mmol/L 20 - 31 mmol/L [facility] Creatinine [Mass/Vol] 1.8 mg/dL High 0.7 - 1.2 mg/dL [facility] Est, Glom Filt Rate 42 Low - PINF [facility] Comment on above: These results are not intended for use [...] following therapy that affects renal tubular secretion. Glucose [Mass/Vol] 99 mg/dL 74 - 99 mg/dL [facility] Interpretation and review of laboratory results Abnormal [facility] Potassium [Moles/Vol] 5 mmol/L 3.7 - 5.3 mmol/L [facility] Sodium [Moles/Vol] 136 mmol/L 136 - 145 mmol/L [facility] Urea nitrogen [Mass/Vol] 31 mg/dL High 8 - 23 mg/dL [facility] Basic Metabolic Profon 02-06 Anion gap [Moles/Vol] 10 mmol/L Normal 9-16 [facility] Comment on above: Performed By: #### B MPX, CDP #### [facility] [employer] [address] [place] [address] [place] [place] Police Sergeant: Collin Augustin MD Calcium [Mass/Vol] 8.4 mg/dL Low 8.6-10.4 [facility] Comment on above: Performed By: #### B MPX, CDP #### [facility] [address] [place] [address] [place] [place] Police Sergeant: Collin Augustin MD Chloride [Moles/Vol] 106 mmol/L Normal 98-107 [facility] Comment on above: Performed By: #### B MPX, CDP #### [employer] [address] [place], [place] [id number] [place] Police Sergeant: Collin Augustin MD CO2 [Moles/Vol] 20 mmol/L Normal 20-31 [facility] Comment on above: Performed By: #### B MPX, CDP #### [facility] [employer] [address] [place] [address] [place] Police Sergeant: Collin Augustin MD Creatinine [Mass/Vol] 1.8 mg/dL High 0.7-1.2 [facility] Comment on above: Performed By: #### B MPX, CDP #### [facility] [employer] [address] [place] [address] [place] Police Sergeant: Collin Augustin MD GFR/1.73 sq M.predicted among non-blacks MDRD (S/P/Bld) [Vol rate/Area] 42 mL/min/{1.73_m2} Low >60 [facility] Comment on above: Result Comment: These results are not intended [...] following therapy that affects renal tubular secretion. Performed By: #### B MPX, CDP #### [facility] [employer] [address] [place] [address] [place] Police Sergeant: Collin Augustni MD Glucose [Mass/Vol] 99 mg/dL Normal 74-99 [facility] Comment on above: Performed By: #### B MPX, CDP #### [facility] [employer] [address] [place] [address] [place] Police Sergeant: Collin Augustin MD Potassium [Moles/Vol] 5.0 mmol/L Normal 3.7-5.3 [facility] Comment on above: Performed By: #### B MPX, CDP #### [facility] [address] [place] [address] [place] Police Sergeant: Collin Augustin MD Sodium [Moles/Vol] 136 mmol/L Normal 136-145 [facility] Comment on above: Performed By: #### B MPX, CDP #### [facility] [address] [place], [place] [id number] [place] Police Sergeant: Collin Augustin MD Urea nitrogen [Mass/Vol] 31 mg/dL High 8-23 [facility] Comment on above: Performed By: #### B MPX, CDP #### [employer] [address] [place], [place] [phone] [place] Police Sergeant: Collin Augustin MD Glucose,Whole Bloodon 2024 Glucose [Mass/Vol] 88 mg/dL Normal 75-110 [facility] IR ANTEGRADE PYELOGRAMon Right nephrostogram shows a patent right ureteral stent. Nephrostomy tube was removed uneventfully. [facility] Esau Grimm MD - 02/06/2025 PROCEDURE: RIGHT NEPHROSTOGRAM WITH [...] the procedure including risks, benefits, and alternatives. [place] protocol was observed. Sterile gowns, masks, hats and gloves utilized for maximal sterile barrier. Associate Application Developer view shows a right nephrostomy tube in [...] ureteral stent. Nephrostomy tube was removed uneventfully. [facility] [employer] [facility] [employer] POC Glucose Fingerstickon Glucose [Mass/Vol] 88 mg/dL 75 - 110 mg/dL [facility] Basic Metabolic Panelon 01-13 Anion gap [Moles/Vol] 11 mmol/L 9 - 16 mmol/L [facility] Calcium [Mass/Vol] 8.3 mg/dL Low 8.6 - 10. 4 mg/dL [facility] Chloride [Moles/Vol] 106 mmol/L 98 - 10 7 mmol/L [facility] CO2 [Moles/Vol] 18 mmol/L Low 20 - 31 mmol/L [facility] Creatinine [Mass/Vol] 1.9 mg/dL High 0.7 - 1.2 mg/dL [facility] Est, Glom Filt Rate 40 Low - PINF [facility] Comment on above: These results are not intended for use [...] following therapy that affects renal tubular secretion. Glucose [Mass/Vol] 107 mg/dL High 74 - 99 mg/dL [facility] Interpretation and review of laboratory results Abnormal [facility] Potassium [Moles/Vol] 4.8 mmol/L 3.7 - 5.3 mmol/L [facility] Sodium [Moles/Vol] 135 mmol/L Low 136 - 145 mmol/L [facility] Urea nitrogen [Mass/Vol] 34 mg/dL High 8 - 23 mg/dL [facility] Basic Metabolic Profon 02-05 Anion gap [Moles/Vol] 11 mmol/L Normal 9-16 [facility] Comment on above: Performed By: #### B MARIELOS BLANCA #### [facility] [place] [address] [place] [place] Police Sergeant: Collin Augustin MD Calcium [Mass/Vol] 8.3 mg/dL Low 8.6-10.4 [facility] Comment on above: Performed By: #### B MPX, CDP #### [facility] [address] [place] [address] [place] [place] Police Sergeant: Collin Augustin MD Chloride [Moles/Vol] 106 mmol/L Normal 98-107 [facility] Comment on above: Performed By: #### B MPX, CDP #### [facility] [address] [place] [address] [place] [place] Police Sergeant: Collin Augustin MD CO2 [Moles/Vol] 18 mmol/L Low 20-31 [facility] Comment on above: Performed By: #### B MPX, CDP #### [address] [address] [place] [place] Police Sergeant: Collin Augustin MD Creatinine [Mass/Vol] 1.9 mg/dL High 0.7-1.2 [facility] Comment on above: Performed By: #### B MPX, CDP #### [address] [address] [place] [place] Police Sergeant: Collin Augustin MD GFR/1.73 sq M.predicted among non-blacks MDRD (S/P/Bld) [Vol rate/Area] 40 mL/min/{1.73_m2} Low >60 [facility] Comment on above: Result Comment: These results are not intended [...] following therapy that affects renal tubular secretion. Performed By: #### B MPX, CDP #### [address] [address] [place] [place] Police Sergeant: Collin Augustin MD Glucose [Mass/Vol] 107 mg/dL High 74-99 [facility] Comment on above: Performed By: #### B MPX, CDP #### [facility] [address] [place] [address] [place] [place] Police Sergeant: Collin Augustin MD Potassium [Moles/Vol] 4.8 mmol/L Normal 3.7-5.3 [facility] Comment on above: Performed By: #### B MPX, CDP #### [facility] [address] [place] [address] [place] [place] Police Sergeant: Collin Augustin MD Sodium [Moles/Vol] 135 mmol/L Low 136-145 [facility] Comment on above: Performed By: #### B MPX, CDP #### [facility] [address] [place] [address] [employer] [place] Police Sergeant: Collin Augustin MD Urea nitrogen [Mass/Vol] 34 mg/dL High 8-23 [facility] Comment on above: Performed By: #### B MPX, CDP #### [facility] [address] [place] [address] [place] [place] Police Sergeant: Collin Augustin MD Glucose,Whole Bloodon 2024 Glucose [Mass/Vol] 106 mg/dL Normal 75-110 [facility] Glucose [Mass/Vol] 107 mg/dL Normal 75-110 [facility] Glucose [Mass/Vol] 97 mg/dL Normal 75-110 [facility] Hemoglobin and Hematocriton 02-05-2025 Hematocrit (Bld) [Volume fraction] 27.9 % Low 40.7 - 50.3 % [facility] Hemoglobin (Bld) [Mass/Vol] 8.2 g/dL Low 13.0 - 17.0 g/dL [facility] Interpretation and review of laboratory results Abnormal [facility] Hematocrit (Bld) [Volume fraction] 30.7 % Low 40.7 - 50.3 % [facility] Hemoglobin (Bld) [Mass/Vol] 9.1 g/dL Low 13.0 - 17.0 g/dL [facility] Interpretation and review of laboratory results Abnormal [facility] Hgb/Hcton 02-05-2025 Hematocrit (Bld) [Volume fraction] 27.9 % Low 40.7-50.3 [facility] Comment on above: Performed By: #### T RASHID BMPX #### [facility] [address] [place] [address] [address] [place] Police Sergeant: Collin Augustin MD Hemoglobin (Bld) [Mass/Vol] 8.2 g/dL Low 13.0-17.0 [facility] Comment on above: Performed By: #### T RASHID BMPX #### [facility] [address] [place] [address] [place] [place] Police Sergeant: Collin Augustin MD Hematocrit (Bld) [Volume fraction] 30.7 % Low 40.7-50.3 [facility] Comment on above: Performed By: #### B MPX, CDP, MG #### [facility] [address] [place] [address] [place] [place] Police Sergeant: Collin Augustin MD Hemoglobin (Bld) [Mass/Vol] 9.1 g/dL Low 13.0-17.0 [facility] Comment on above: Performed By: #### B MPX, CDP, MG #### [employer] [employer] [address] [place] [address] [place] [place] Police Sergeant: Collin Augustin MD IR ANTEGRADE PYELOGRAMon Radiology Study observation (narrative) [facility] IR GUIDED NEPHROSTOMY CATH P LACEMENT RIGHTon 02-05-2025 Successful percutaneous right nephrostomy tube placement. Successful antegrade right ureteral stent placement; 8 [place] by 24 cm double-J stent was deployed. [facility] Esau Egan MD - 02/05/2025 PROCEDURE: PERCUTANEOUS [...] the procedure including risks, benefits, and alternatives. [place] protocol was followed. Patient is on intravenous [...] over the guidewire. Through the outer 6 [place] cannula an angled catheter and Glidewire were advanced and negotiated into the ureter. Guidewire and catheter were directed into the bladder. Small amount of contrast injected verifying catheter tip in the bladder. There is a Hummel catheter in place. An Amplatz guidewire was placed through the catheter. An 8 [place] by 24 cm double-J ureteral stent was deployed with the distal loop formed in the bladder. The proximal loop was formed in the renal pelvis. Small amount of contrast injected verifying appropriate catheter positioning and patency. An 8 [place] nephrostomy tube was placed over the guidewire [...] Successful antegrade right ureteral stent placement; 8 [place] by 24 cm double-J stent was deployed. [facility] [employer] [facility] Glucose Fingerstickon Glucose [Mass/Vol] 106 mg/dL 75 - 110 mg/dL [facility] Glucose [Mass/Vol] 107 mg/dL 75 - 110 mg/dL [facility] Glucose [Mass/Vol] 97 mg/dL 75 - 110 mg/dL [facility] Basic Metab w/rfx MGon 02-04 Anion gap [Moles/Vol] 13 mmol/L Normal 9-16 [facility] Comment on above: Performed By: #### B MPX, CDP, MG #### [facility] [address] [place] [address] [place] [place] Police Sergeant: Collin Augustin MD Calcium [Mass/Vol] 8.8 mg/dL Normal 8.6-10.4 [facility] Comment on above: Performed By: #### B MPX, CDP, MG #### [facility] [address] [place] [address] [place] [place] Police Sergeant: Collin Augustin MD Chloride [Moles/Vol] 107 mmol/L Normal 98-107 [facility] Comment on above: Performed By: #### B MPX, CDP, MG #### [employer] [address] [place] [address] [place] [place] Police Sergeant: Collin Augustin MD CO2 [Moles/Vol] 18 mmol/L Low 20-31 [facility] Comment on above: Performed By: #### B MPX, CDP, MG #### [facility] [address] [place] [address] [employer] [place] Police Sergeant: Collin Augustin MD Creatinine [Mass/Vol] 2.1 mg/dL High 0.7-1.2 [facility] Comment on above: Performed By: #### B MPX, CDP, MG #### [facility] [address] [place] [address] [employer] [employer] Police Sergeant: Collin Augustin MD GFR/1.73 sq M.predicted among non-blacks MDRD (S/P/Bld) [Vol rate/Area] 35 mL/min/{1.73_m2} Low >60 [facility] Comment on above: Result Comment: These results are not intended [...] following therapy that affects renal tubular secretion. Performed By: #### B MPX, CDP, MG #### [facility] [address] [place] [address] [employer] [employer] Police Sergeant: Collin Augustin MD Glucose [Mass/Vol] 100 mg/dL High 74-99 [facility] Comment on above: Performed By: #### B MPX, CDP, MG #### [facility] [address] [place] [address] [employer] [employer] Police Sergeant: Collin Augustin MD Potassium [Moles/Vol] 4.5 mmol/L Normal 3.7-5.3 [facility] Comment on above: Performed By: #### B MPX, CDP, MG #### [facility] [employer] [address] [place] [address] [address] [employer] Sergeant: Collin Augustin MD Sodium [Moles/Vol] 138 mmol/L Normal 136-145 [facility] Comment on above: Performed By: #### B MPX, CDP, MG #### [facility] [employer] [address] [place] [address] [employer] [employer] Sergeant: Collin Augustin MD Urea nitrogen [Mass/Vol] 29 mg/dL High 8-23 [facility] Comment on above: Performed By: #### B MPX, CDP, MG #### [facility] [employer] [address] [place] [address] [employer] [employer] Sergeant: Collin Augustin MD Basic Metabolic Panel w/ Ref honey to MGon 02-04-2025 Anion gap [Moles/Vol] 13 mmol/L 9 - 16 mmol/L [facility] Calcium [Mass/Vol] 8.8 mg/dL 8.6 - 10. 4 mg/dL [facility] Chloride [Moles/Vol] 107 mmol/L 98 - 10 7 mmol/L [facility] CO2 [Moles/Vol] 18 mmol/L Low 20 - 31 mmol/L [facility] Creatinine [Mass/Vol] 2.1 mg/dL High 0.7 - 1.2 mg/dL [facility] Est, Glom Filt Rate 35 Low - PINF [facility] Comment on above: These results are not intended for use [...] following therapy that affects renal tubular secretion. Glucose [Mass/Vol] 100 mg/dL High 74 - 99 mg/dL [facility] Interpretation and review of laboratory results Abnormal [facility] Potassium [Moles/Vol] 4.5 mmol/L 3.7 - 5.3 mmol/L [facility] Sodium [Moles/Vol] 138 mmol/L 136 - 145 mmol/L [facility] Urea nitrogen [Mass/Vol] 29 mg/dL High 8 - 23 mg/dL [facility] CBC with Auto Differentialon 02-04-2025 Basophils (Bld) [#/Vol] 0.14 10*3/uL [facility] Basophils/100 WBC (Bld) 2 % 0 - 2 % [facility] Eosinophils (Bld) [#/Vol] 0.76 10*3/uL High [facility] Eosinophils/100 WBC (Bld) 9 % High 1 - 4 % [facility] Erythrocyte distribution width (RBC) [Ratio] 14.6 % High 11.8 - 14.4 % [facility] Hematocrit (Bld) [Volume fraction] 29.4 % Low 40.7 - 50.3 % [facility] Hemoglobin (Bld) [Mass/Vol] 8.8 g/dL Low 13.0 - 17.0 g/dL [facility] Immature granulocytes (Bld) [#/Vol] 0.04 10*3/uL [facility] Immature granulocytes/100 WBC (Bld) 1 % High 0 [facility] Interpretation and review of laboratory results Abnormal [facility] Lymphocytes/100 WBC (Bld) 22 % Low 24 - 43 % [facility] Lymphocytes/100 WBC (Bld) 1.82 % [facility] MCH (RBC) [Entitic mass] 24 pg Low 25.2 - 33.5 pg [facility] MCHC (RBC) [Mass/Vol] 29.9 g/dL 28.4 - 34.8 g/dL [facility] MCV (RBC) [Entitic vol] 80.3 fL Low 82.6 - 102.9 fL [facility] Monocytes/100 WBC (Bld) 7 % 3 - 12 % [facility] Monocytes/100 WBC (Bld) 0.57 % [facility] Neutrophils/100 WBC (Bld) 59 % 36 - 65 % [facility] Nucleated RBC/100 WBC (Bld) [Ratio] 0 % 0.0 per 100 WBC [facility] Platelet mean volume (Bld) [Entitic vol] 9.6 fL 8.1 - 13.5 fL [facility] Platelets (Bld) [#/Vol] 297 10*3/uL [facility] RBC (Bld) [#/Vol] 3.66 10*6/uL Low 4.21 - 5.7 7 m/uL [facility] RBC (Bld) [#/Vol] ANISOCYTOSIS PRESENT MICROCYTOSIS PRESENT [facility] Segmented neutrophils/100 WBC (Bld) 4.81 % [facility] WBC other (Bld) [#/Vol] 8.1 [facility] CBC with Diffon 02-04-2025 Abs. Basophil 0.14 k/uL Normal 0.00-0.20 [facility] Comment on above: Performed By: #### B MPX, CDP, MG #### [facility] [employer] [address] [place] [address] [employer] [employer] Sergeant: Collin Augustin MD Abs.Imm.Granulocyte 0.04 k/uL Normal 0.00-0.30 [facility] Comment on above: Performed By: #### B MPX, CDP, MG #### [facility] [employer] [address] [place] [address] [employer] [employer] Sergeant: Collin Augustin MD Abs.Neutrophil (Seg) 4.81 k/uL Normal 1.50-8.10 [facility] Comment on above: Performed By: #### B MPX, CDP, MG #### [facility] [employer] [address] [place] [address] [employer]: Collin Augustin MD Basophils/100 WBC (Bld) 2 % Normal 0-2 [facility] Comment on above: Performed By: #### B MPX, CDP, MG #### [facility] [employer] [address] [place] [address] [employer] [employer] Sergeant: Collin Augustin MD Eosinophils (Bld) [#/Vol] 0.76 10*3/uL High 0.00-0.44 [facility] Comment on above: Performed By: #### B MPX, CDP, MG #### [facility] [employer] [address] [place] [address] [employer] [employer] Sergeant: Collin Augustin MD Eosinophils/100 WBC (Bld) 9 % High 1-4 [facility] Comment on above: Performed By: #### B MPX, CDP, MG #### [facility] [employer] [address] [place] [address] [employer] [employer] Sergeant: Collin Augustin MD Erythrocyte distribution width (RBC) [Ratio] 14.6 % High 11.8-14.4 [facility] Comment on above: Performed By: #### B MPX, CDP, MG #### [facility] [address] [place] [address] [employer] [employer] Sergeant: Collin Augustin MD Hematocrit (Bld) [Volume fraction] 29.4 % Low 40.7-50.3 [facility] Comment on above: Performed By: #### B MPX, CDP, MG #### [facility] [address] [place] [address] [employer] [employer] Sergeant: Collin Augustin MD Hemoglobin (Bld) [Mass/Vol] 8.8 g/dL Low 13.0-17.0 [facility] Comment on above: Performed By: #### B MPX, CDP, MG #### [address] [address] [employer] Sergeant: Collin Augustin MD Immature granulocytes/100 WBC (Bld) 1 % High 0 [facility] Comment on above: Performed By: #### B MPX, CDP, MG #### [address] [address] [employer] [employer] Sergeant: Collin Augustin MD Lymphocytes (Bld) [#/Vol] 1.82 10*3/uL Normal 1.10-3.70 [facility] Comment on above: Performed By: #### B MPX, CDP, MG #### [facility] [employer] [address] [place] [address] [employer] Sergeant: Collin Augustin MD Lymphocytes/100 WBC (Bld) 22 % Low 24-43 [facility] Comment on above: Performed By: #### B MPX, CDP, MG #### [facility] [employer] [address] [place] [address] [employer] [employer] Sergeant: Collin Augustin MD MCH (RBC) [Entitic mass] 24.0 pg Low 25.2-33.5 [facility] Comment on above: Performed By: #### B MPX, CDP, MG #### [facility] [employer] [address] [place] [address] [employer] [employer] Sergeant: Collin Augustin MD MCHC (RBC) [Mass/Vol] 29.9 g/dL Normal 28.4-34.8 [facility] Comment on above: Performed By: #### B MPX, CDP, MG #### [address] [address] [employer] [employer] Sergeant: Collin Augustin MD MCV (RBC) [Entitic vol] 80.3 fL Low 82.6-102.9 [facility] Comment on above: Performed By: #### B MPX, CDP, MG #### [address] [address] [employer] [employer] Sergeant: Collin Augustin MD Monocytes (Bld) [#/Vol] 0.57 10*3/uL Normal 0.10-1.20 [facility] Comment on above: Performed By: #### B MPX, CDP, MG #### [address] [address] [employer] Sergeant: Collin Augustin MD Monocytes/100 WBC (Bld) 7 % Normal 3-12 [facility] Comment on above: Performed By: #### B MPX, CDP, MG #### [address] [address] [employer] [employer] Sergeant: Collin Augustin MD Neutrophil (Seg) 59 % Normal 36-65 [facility] Comment on above: Performed By: #### B MPX, CDP, MG #### [facility] [employer] [address] [place] [address] [employer] Sergeant: Collin Augustin MD NRBC Automated 0.0 per 100 WBC Normal 0.0 [facility] Comment on above: Performed By: #### B MPX, CDP, MG #### [facility] [employer] [address] [place] [address] [employer] [employer] Sergeant: Collin Augustin MD Platelet mean volume (Bld) [Entitic vol] 9.6 fL Normal 8.1-13.5 [facility] Comment on above: Performed By: #### B MPX, CDP, MG #### [facility] [employer] [address] [place] [address] [employer] Sergeant: Collin Augustin MD Platelets (Bld) [#/Vol] 297 10*3/uL Normal 138-453 [facility] Comment on above: Performed By: #### B MPX, CDP, MG #### [facility] [employer] [address] [place] [address] [employer] Sergeant: Collin Augustin MD RBC (Bld) [#/Vol] 3.66 10*6/uL Low 4.21-5.77 [facility] Comment on above: Performed By: #### B MPX, CDP, MG #### [facility] [employer] [address] [place] [address] [employer] [employer] Sergeant: Collin Augustin MD RBC morphology finding Nom (Bld) ANISOCYTOSIS PRESENT Normal [facility] Comment on above: Result Comment: MICR OCYTOSIS PRESENT Performed By: #### B MPX, CDP, MG #### [facility] [employer] [address] [place] [address] [employer] [employer] Sergeant: Collin Augustin MD WBC (Bld) [#/Vol] 8.1 10*3/uL Normal 3.5-11.3 [facility] Comment on above: Performed By: #### B MPX, CDP, MG #### [facility] [employer] [address] [place] [address] [employer] Sergeant: Collin Augustin MD Glucose,Whole Bloodon 2024 Glucose [Mass/Vol] 127 mg/dL High 75-110 [facility] Glucose [Mass/Vol] 91 mg/dL Normal 75-110 [facility] Glucose [Mass/Vol] 118 mg/dL High 75-110 [facility] Hemoglobin and Hematocriton 02-04-2025 Hematocrit (Bld) [Volume fraction] 28.2 % Low 40.7 - 50.3 % [facility] Hemoglobin (Bld) [Mass/Vol] 8.7 g/dL Low 13.0 - 17.0 g/dL [facility] Interpretation and review of laboratory results Abnormal [facility] Hgb/Hcton 02-04-2025 Hematocrit (Bld) [Volume fraction] 28.2 % Low 40.7-50.3 [facility] Comment on above: Performed By: #### B MPX, CDP #### [employer] [employer] [address] [place] [address] [employer] [employer] Sergeant: Collin Augustin MD Hemoglobin (Bld) [Mass/Vol] 8.7 g/dL Low 13.0-17.0 [facility] Comment on above: Performed By: #### B MPX, CDP #### [employer] [address] [place], [place] [phone] [employer] Sergeant: Collin Augustin MD IR GUIDED NEPHROSTOMY CATH P LACEMENT RIGHTon 02-04-2025 Radiology Study observation (narrative) [facility] Magnesiumon 02-04-2025 Magnesium [Mass/Vol] 1.8 mg/dL 1.6 - 2 .4 mg/dL [facility] Magnesium [Mass/Vol] 1.8 mg/dL Normal 1.6-2.4 [facility] Comment on above: Performed By: #### B MPX, CDP, MG #### [facility] [address] [place] [address] [employer] [employer] Sergeant: Collin Augustin MD No Panel Informationon 02-04 [facility] POC Glucose Fingerstickon Glucose [Mass/Vol] 127 mg/dL High 75 - 110 mg/dL [facility] Interpretation and review of laboratory results Abnormal [facility] Glucose [Mass/Vol] 91 mg/dL 75 - 110 mg/dL [facility] Glucose [Mass/Vol] 118 mg/dL High 75 - 110 mg/dL [facility] Interpretation and review of laboratory results Abnormal [facility] PTon 02-04-2025 INR Coag (PPP) [Relative time] 1.0 {INR} Normal [facility] Comment on above: Result Comment: Therapeutic Range: Moderate Anticoagulant Intensity: INR = 2.0-3.0 High Anticoagulant Intensity: INR = 2.5-3.5 Performed By: #### B MPX, CDP #### [facility] [address] [place] [address] [phone] [employer] [employer] Sergeant: Collin Augustin MD PT Coag (PPP) [Time] 13.3 s Normal 11.7-14.9 [facility] Comment on above: Performed By: #### B MPX, CDP #### [employer] [address] [place] [address] [phone] [employer] [employer] Sergeant: Collin Augustin MD Protime-INRon 02-04-2025 INR Coag (PPP) [Relative time] 1 {INR} [facility] Comment on above: Therapeutic Range: Moderate Anticoagulant Intensity: INR = 2.0-3.0 High Anticoagulant Intensity: INR = 2.5-3.5 PT Coag (PPP) [Time] 13.3 s [facility] Basic Metab w/rfx MGon 02-03 Anion gap [Moles/Vol] 12 mmol/L Normal 9-16 [facility] Comment on above: Performed By: #### B MPX, CDP #### [employer] [address] [place] [address] [phone] [employer] [employer] Sergeant: Collin Augustin MD Calcium [Mass/Vol] 8.5 mg/dL Low 8.6-10.4 [facility] Comment on above: Performed By: #### B MPX, CDP #### [employer] [address] [place] [address] [phone] [employer] [employer] Sergeant: Collin Augustin MD Chloride [Moles/Vol] 106 mmol/L Normal 98-107 [facility] Comment on above: Performed By: #### B MPX, CDP #### [facility] [address] [place] [address] [employer] Sergeant: Collin Augustin MD CO2 [Moles/Vol] 18 mmol/L Low 20-31 [facility] Comment on above: Performed By: #### B MPX, CDP #### [facility] [address] [place] [address] [employer] Sergeant: Collin Augustin MD Creatinine [Mass/Vol] 2.5 mg/dL High 0.7-1.2 [facility] Comment on above: Performed By: #### B MPX, CDP #### [address] [address] [employer]: Collin Augustin MD GFR/1.73 sq M.predicted among non-blacks MDRD (S/P/Bld) [Vol rate/Area] 29 mL/min/{1.73_m2} Low >60 [facility] Comment on above: Result Comment: These results are not intended [...] following therapy that affects renal tubular secretion. Performed By: #### B MPX, CDP #### [facility] [address] [place] [address] [employer] Sergeant: Collin Augustin MD Glucose [Mass/Vol] 98 mg/dL Normal 74-99 [facility] Comment on above: Performed By: #### B MPX, CDP #### [facility] [address] [place] [address] [employer] Sergeant: Collin Augustin MD Potassium [Moles/Vol] 4.4 mmol/L Normal 3.7-5.3 [facility] Comment on above: Result Comment: Spec imen hemolysis has exceeded the interference as defined by Hoa. Value may be falsely increased. Suggest recollection if clinically indicated. Performed By: #### B MPX, CDP #### [facility] [address] [place], [place] [phone] [employer] Sergeant: Collin Augustin MD Sodium [Moles/Vol] 136 mmol/L Normal 136-145 [facility] Comment on above: Performed By: #### B MPX, CDP #### [facility] [address] [place], [place] [phone] [employer] Sergeant: Collin Augustin MD Urea nitrogen [Mass/Vol] 27 mg/dL High - [facility] Comment on above: Performed By: #### B MPX, CDP #### [facility] [employer] [address] [place] [address] [phone] [employer] Sergeant: Collin Augustin MD Basic Metabolic Panel w/ Ref honey to MGon 02-03-2025 Anion gap [Moles/Vol] 12 mmol/L 9 - 16 mmol/L [facility] Calcium [Mass/Vol] 8.5 mg/dL Low 8.6 - 10. 4 mg/dL [facility] Chloride [Moles/Vol] 106 mmol/L 98 - 10 7 mmol/L [facility] CO2 [Moles/Vol] 18 mmol/L Low 20 - 31 mmol/L [facility] Creatinine [Mass/Vol] 2.5 mg/dL High 0.7 - 1.2 mg/dL [facility] Est, Glom Filt Rate 29 Low - PINF [facility] Comment on above: These results are not intended for use [...] following therapy that affects renal tubular secretion. Glucose [Mass/Vol] 98 mg/dL 74 - 99 mg/dL [facility] Interpretation and review of laboratory results Abnormal [facility] Potassium [Moles/Vol] 4.4 mmol/L 3.7 - 5.3 mmol/L [facility] Comment on above: Specimen hemolysis h as exceeded the interference as defined by Hoa. Value may be falsely increased. Suggest recollection if clinically indicated. Sodium [Moles/Vol] 136 mmol/L 136 - 145 mmol/L [facility] Urea nitrogen [Mass/Vol] 27 mg/dL High 8 - 23 mg/dL [facility] CBC with Auto Differentialon 02-03-2025 Basophils (Bld) [#/Vol] 0.15 10*3/uL [facility] Basophils/100 WBC (Bld) 2 % 0 - 2 % [facility] Eosinophils (Bld) [#/Vol] 0.7 10*3/uL High [facility] Eosinophils/100 WBC (Bld) 9 % High 1 - 4 % [facility] Erythrocyte distribution width (RBC) [Ratio] 14.7 % High 11.8 - 14.4 % [facility] Hematocrit (Bld) [Volume fraction] 28.5 % Low 40.7 - 50.3 % [facility] Hemoglobin (Bld) [Mass/Vol] 8.8 g/dL Low 13.0 - 17.0 g/dL [facility] Immature granulocytes (Bld) [#/Vol] 0.03 10*3/uL [facility] Immature granulocytes/100 WBC (Bld) 0 % 0 [facility] Interpretation and review of laboratory results Abnormal [facility] Lymphocytes/100 WBC (Bld) 18 % Low 24 - 43 % [facility] Lymphocytes/100 WBC (Bld) 1.47 % [facility] MCH (RBC) [Entitic mass] 24.8 pg Low 25.2 - 33.5 pg [facility] MCHC (RBC) [Mass/Vol] 30.9 g/dL 28.4 - 34.8 g/dL [facility] MCV (RBC) [Entitic vol] 80.3 fL Low 82.6 - 102.9 fL [facility] Monocytes/100 WBC (Bld) 9 % 3 - 12 % [facility] Monocytes/100 WBC (Bld) 0.72 % [facility] Neutrophils/100 WBC (Bld) 62 % 36 - 65 % [facility] Nucleated RBC/100 WBC (Bld) [Ratio] 0 % 0.0 per 100 WBC [facility] Platelet mean volume (Bld) [Entitic vol] 9.6 fL 8.1 - 13.5 fL [facility] Platelets (Bld) [#/Vol] 275 10*3/uL [facility] RBC (Bld) [#/Vol] 3.55 10*6/uL Low 4.21 - 5.7 7 m/uL [facility] RBC (Bld) [#/Vol] ANISOCYTOSIS PRESENT MICROCYTOSIS PRESENT [facility] Segmented neutrophils/100 WBC (Bld) 5.08 % [facility] WBC other (Bld) [#/Vol] 8.2 [facility] CBC with Diffon 02-03-2025 Abs. Basophil 0.15 k/uL Normal 0.00-0.20 [facility] Comment on above: Performed By: #### B MPX, CDP #### [facility] [employer] [address] [place] [address] [employer] [employer]: Collin Augustin MD Abs.Imm.Granulocyte 0.03 k/uL Normal 0.00-0.30 [facility] Comment on above: Performed By: #### B MPX, CDP #### [facility] [employer] [address] [place] [address] [employer]: Collin Augustin MD Abs.Neutrophil (Seg) 5.08 k/uL Normal 1.50-8.10 [facility] Comment on above: Performed By: #### B MPX, CDP #### [facility] [employer] [address] [place] [address] [employer]: Collin Augustin MD Basophils/100 WBC (Bld) 2 % Normal 0-2 [facility] Comment on above: Performed By: #### B MPX, CDP #### [facility] [address] [place] [address] [employer] Sergeant: Collin Augustin MD Eosinophils (Bld) [#/Vol] 0.70 10*3/uL High 0.00-0.44 [facility] Comment on above: Performed By: #### B MPX, CDP #### [facility] [employer] [address] [place] [address] [employer]: Collin Augustin MD Eosinophils/100 WBC (Bld) 9 % High 1-4 [facility] Comment on above: Performed By: #### B MPX, CDP #### [facility] [employer] [address] [place] [address] [employer]: Collin Augustin MD Erythrocyte distribution width (RBC) [Ratio] 14.7 % High 11.8-14.4 [facility] Comment on above: Performed By: #### B MPX, CDP #### [facility] [employer] [address] [place] [address] [employer]: Collin Augustin MD Hematocrit (Bld) [Volume fraction] 28.5 % Low 40.7-50.3 [facility] Comment on above: Performed By: #### B MPX, CDP #### [facility] [employer] [address] [place] [address] [employer]: Collin Augustin MD Hemoglobin (Bld) [Mass/Vol] 8.8 g/dL Low 13.0-17.0 [facility] Comment on above: Performed By: #### B MPX, CDP #### [facility] [employer] [address] [place] [address] [employer]: Collin Augustin MD Immature granulocytes/100 WBC (Bld) 0 % Normal 0 [facility] Comment on above: Performed By: #### B MPX, CDP #### [address] [address] [employer]: Collin Augustin MD Lymphocytes (Bld) [#/Vol] 1.47 10*3/uL Normal 1.10-3.70 [facility] Comment on above: Performed By: #### B MPX, CDP #### [address] [address] [employer]: Collin Augustin MD Lymphocytes/100 WBC (Bld) 18 % Low 24-43 [facility] Comment on above: Performed By: #### B MPX, CDP #### [place] [address] [employer]: Collin Augustin MD MCH (RBC) [Entitic mass] 24.8 pg Low 25.2-33.5 [facility] Comment on above: Performed By: #### B MPX, CDP #### [place] [address] [employer]: Collin Augustin MD MCHC (RBC) [Mass/Vol] 30.9 g/dL Normal 28.4-34.8 [facility] Comment on above: Performed By: #### B MPX, CDP #### [place] [address] [employer]: Collin Augustin MD MCV (RBC) [Entitic vol] 80.3 fL Low 82.6-102.9 [facility] Comment on above: Performed By: #### B MPX, CDP #### [address] [address] [employer]: Collin Augustin MD Monocytes (Bld) [#/Vol] 0.72 10*3/uL Normal 0.10-1.20 [facility] Comment on above: Performed By: #### B MPX, CDP #### [address] [address] [employer]: Collin Augustin MD Monocytes/100 WBC (Bld) 9 % Normal 3-12 [facility] Comment on above: Performed By: #### B MPX, CDP #### [address] [address] [employer]: Collin Augustin MD Neutrophil (Seg) 62 % Normal 36-65 [facility] Comment on above: Performed By: #### B MPX, CDP #### [address] [address] [employer]: Collin Augustin MD NRBC Automated 0.0 per 100 WBC Normal 0.0 [facility] Comment on above: Performed By: #### B MPX, CDP #### [address] [address] [employer]: Collin Augustin MD Platelet mean volume (Bld) [Entitic vol] 9.6 fL Normal 8.1-13.5 [facility] Comment on above: Performed By: #### B MPX, CDP #### [address] [address] [address] [place] [employer]: Collin Augustin MD Platelets (Bld) [#/Vol] 275 10*3/uL Normal 138-453 [facility] Comment on above: Performed By: #### B MPX, CDP #### [address] [address] [employer] [place] [employer] Sergeant: Collin Augustin MD RBC (Bld) [#/Vol] 3.55 10*6/uL Low 4.21-5.77 [facility] Comment on above: Performed By: #### B MPX, CDP #### [address] [place] [place], [place] [phone] [employer] Sergeant: Collin Augustin MD RBC morphology finding Nom (Bld) ANISOCYTOSIS PRESENT Normal [facility] Comment on above: Result Comment: MICR OCYTOSIS PRESENT Performed By: #### B MPX, CDP #### [facility] [place], [place] [phone] [place] [employer] Sergeant: Collin Augustin MD WBC (Bld) [#/Vol] 8.2 10*3/uL Normal 3.5-11.3 [facility] Comment on above: Performed By: #### B EVANGELIST, CDP #### [facility] [employer] [address] [place] [address] [phone] [employer] [place] [employer] Sergeant: Collin Augustin MD Glucose,Whole Bloodon 2024 Glucose [Mass/Vol] 111 mg/dL High 75-110 [facility] Glucose [Mass/Vol] 110 mg/dL Normal 75-110 [facility] Magnesiumon 02-03-2025 Magnesium [Mass/Vol] 2 mg/dL 1.6 - 2 .4 mg/dL [facility] Magnesium [Mass/Vol] 2.0 mg/dL Normal 1.6-2.4 [facility] Comment on above: Performed By: #### B KINGX, CDP #### [facility] [employer] [address] [place] [address] [phone] [place] [place] [employer] Sergeant: Collin Augustin MD No Panel Informationon 02-03 [facility] [employer] POC Glucose Fingerstickon Glucose [Mass/Vol] 111 mg/dL High 75 - 110 mg/dL [facility] [employer] Interpretation and review of laboratory results Abnormal [facility] [employer] [facility] [employer] Glucose [Mass/Vol] 110 mg/dL 75 - 110 mg/dL [facility] [employer] Basic Metab w/rfx MGon 02-02 Anion gap [Moles/Vol] 13 mmol/L Normal 9-16 [facility] Comment on above: Performed By: #### T RASHID BMPX #### [facility] [employer] [address] [place] [address] [employer] [place] [employer] Sergeant: Collin Augustin MD Calcium [Mass/Vol] 7.9 mg/dL Low 8.6-10.4 [facility] Comment on above: Performed By: #### T RASHID BMPX #### [facility] [address] [place] [address] [employer] Sergeant: Collin Augustin MD Chloride [Moles/Vol] 105 mmol/L Normal 98-107 [facility] Comment on above: Performed By: #### T RASHID BMPX #### [facility] [employer] [address] [place] [address] [employer] [place] [employer] Sergeant: Collin Augustin MD CO2 [Moles/Vol] 21 mmol/L Normal 20-31 [facility] Comment on above: Performed By: #### T RASHID BMPX #### [facility] [employer] [address] [place] [phone] [employer] [place] [employer] Sergeant: Collin Augustin MD Creatinine [Mass/Vol] 3.2 mg/dL High 0.7-1.2 [facility] Comment on above: Performed By: #### T RASHID BMPX #### [address] [address] [employer] [place] [employer] Sergeant: Collin Augustin MD GFR/1.73 sq M.predicted among non-blacks MDRD (S/P/Bld) [Vol rate/Area] 21 mL/min/{1.73_m2} Low >60 [facility] Comment on above: Result Comment: These results are not intended [...] following therapy that affects renal tubular secretion. Performed By: #### T RASHID BMPX #### [facility] [address] [place] [address] [employer] [place] [employer] Sergeant: Collin Augustin MD Glucose [Mass/Vol] 111 mg/dL High 74-99 [facility] Comment on above: Performed By: #### T RASHID BMPX #### [facility] [address] [place] [address] [employer] Sergeant: Collin Augustin MD Potassium [Moles/Vol] 4.1 mmol/L Normal 3.7-5.3 [facility] Comment on above: Performed By: #### T RASHID BMPX #### [facility] [address] [place] [address] [employer] [place] [employer] Sergeant: Collin Augustin MD Sodium [Moles/Vol] 139 mmol/L Normal 136-145 [facility] Comment on above: Performed By: #### T RASHID BMPX #### [facility] [address] [place] [address] [employer] Sergeant: Collin Augustin MD Urea nitrogen [Mass/Vol] 30 mg/dL High 8-23 [facility] Comment on above: Performed By: #### T RASHID BMPX #### [facility] [address] [place] [address] [employer] Sergeant: Collin Augustin MD Basic Metabolic Panel w/ Ref honey to MGon 02-02-2025 Anion gap [Moles/Vol] 13 mmol/L 9 - 16 mmol/L [facility] Calcium [Mass/Vol] 7.9 mg/dL Low 8.6 - 10. 4 mg/dL [facility] Chloride [Moles/Vol] 105 mmol/L 98 - 10 7 mmol/L [facility] CO2 [Moles/Vol] 21 mmol/L 20 - 31 mmol/L [facility] Creatinine [Mass/Vol] 3.2 mg/dL High 0.7 - 1.2 mg/dL [facility] Est, Glojami Filt Rate 21 Low - PINF [facility] Comment on above: These results are not intended for use [...] following therapy that affects renal tubular secretion. Glucose [Mass/Vol] 111 mg/dL High 74 - 99 mg/dL [facility] Potassium [Moles/Vol] 4.1 mmol/L 3.7 - 5.3 mmol/L [facility] Sodium [Moles/Vol] 139 mmol/L 136 - 145 mmol/L [facility] Urea nitrogen [Mass/Vol] 30 mg/dL High 8 - 23 mg/dL [facility] CBC with Auto Differentialon 02-02-2025 Basophils (Bld) [#/Vol] 0.17 10*3/uL [facility] Basophils/100 WBC (Bld) 2 % 0 - 2 % [facility] Eosinophils (Bld) [#/Vol] 0.67 10*3/uL High [facility] Eosinophils/100 WBC (Bld) 7 % High 1 - 4 % [facility] Erythrocyte distribution width (RBC) [Ratio] 15 % High 11.8 - 14.4 % [facility] Hematocrit (Bld) [Volume fraction] 27.5 % Low 40.7 - 50.3 % [facility] Hemoglobin (Bld) [Mass/Vol] 8.5 g/dL Low 13.0 - 17.0 g/dL [facility] Immature granulocytes (Bld) [#/Vol] 0.04 10*3/uL [facility] Immature granulocytes/100 WBC (Bld) 0 % 0 [facility] Interpretation and review of laboratory results Abnormal [facility] Lymphocytes/100 WBC (Bld) 12 % Low 24 - 43 % [facility] Lymphocytes/100 WBC (Bld) 1.16 % [facility] MCH (RBC) [Entitic mass] 24.4 pg Low 25.2 - 33.5 pg [facility] MCHC (RBC) [Mass/Vol] 30.9 g/dL 28.4 - 34.8 g/dL [facility] MCV (RBC) [Entitic vol] 79 fL Low 82.6 - 102.9 fL [facility] Monocytes/100 WBC (Bld) 8 % 3 - 12 % [facility] Monocytes/100 WBC (Bld) 0.72 % [facility] Neutrophils/100 WBC (Bld) 71 % High 36 - 65 % [facility] Nucleated RBC/100 WBC (Bld) [Ratio] 0 % 0.0 per 100 WBC [facility] Platelet mean volume (Bld) [Entitic vol] 9.6 fL 8.1 - 13.5 fL [facility] Platelets (Bld) [#/Vol] 283 10*3/uL [facility] RBC (Bld) [#/Vol] 3.48 10*6/uL Low 4.21 - 5.7 7 m/uL [facility] RBC (Bld) [#/Vol] ANISOCYTOSIS PRESENT MICROCYTOSIS PRESENT [facility] Segmented neutrophils/100 WBC (Bld) 6.87 % [facility] WBC other (Bld) [#/Vol] 9.6 [facility] CBC with Diffon 02-02-2025 Abs. Basophil 0.17 k/uL Normal 0.00-0.20 [facility] Comment on above: Performed By: #### T RASHID BMPX #### [facility] [address] [place], [place] [phone] [place] [employer] Sergeant: Collin Augustin MD Abs.Imm.Granulocyte 0.04 k/uL Normal 0.00-0.30 [facility] Comment on above: Performed By: #### T RASHID BMPX #### [facility] [address] [place], [place] [phone] [employer] [employer] Sergeant: Collin Augustin MD Abs.Neutrophil (Seg) 6.87 k/uL Normal 1.50-8.10 [facility] Comment on above: Performed By: #### TERE WRIGHTX #### [facility] [employer] [address] [place] [address] [employer] Sergeant: Collin Augustin MD Basophils/100 WBC (Bld) 2 % Normal 0-2 [facility] Comment on above: Performed By: #### Fernanda MIKE BMPX #### [facility] [employer] [address] [place] [address] [employer] Sergeant: Collin Augustin MD Eosinophils (Bld) [#/Vol] 0.67 10*3/uL High 0.00-0.44 [facility] Comment on above: Performed By: #### Fernanda MIKE BMPX #### [address] [address] [employer] Sergeant: Collin Augustin MD Eosinophils/100 WBC (Bld) 7 % High 1-4 [facility] Comment on above: Performed By: #### TERE WRIGHTX #### [facility] [employer] [address] [place] [address] [employer] Sergeant: Collin Augustin MD Erythrocyte distribution width (RBC) [Ratio] 15.0 % High 11.8-14.4 [facility] Comment on above: Performed By: #### TERE WRIGHTX #### [facility] [employer] [address] [place] [address] [employer] Sergeant: Collin Augustin MD Hematocrit (Bld) [Volume fraction] 27.5 % Low 40.7-50.3 [facility] Comment on above: Performed By: #### Fernanda MIKE BMPX #### [facility] [employer] [address] [place] [address] [employer] Sergeant: Collin Augustin MD Hemoglobin (Bld) [Mass/Vol] 8.5 g/dL Low 13.0-17.0 [facility] Comment on above: Performed By: #### Fernanda MIKE BMPX #### [place] [address] [employer] [employer] Sergeant: Collin Augustin MD Immature granulocytes/100 WBC (Bld) 0 % Normal 0 [facility] Comment on above: Performed By: #### Fernanda MIKE BMPX #### [place] [address] [employer] [employer] Sergeant: Collin Augustin MD Lymphocytes (Bld) [#/Vol] 1.16 10*3/uL Normal 1.10-3.70 [facility] Comment on above: Performed By: #### Fernanda MIKE BMPX #### [place] [address] [employer] [employer] Sergeant: Collin Augustin MD Lymphocytes/100 WBC (Bld) 12 % Low 24-43 [facility] Comment on above: Performed By: #### Fernanda MIKE BMPX #### [place] [address] [employer] [employer] Sergeant: Collin Augustin MD MCH (RBC) [Entitic mass] 24.4 pg Low 25.2-33.5 [facility] Comment on above: Performed By: #### Fernanda MIKE BMPX #### [place] [address] [employer] [employer] Sergeant: Collin Augustin MD MCHC (RBC) [Mass/Vol] 30.9 g/dL Normal 28.4-34.8 [facility] Comment on above: Performed By: #### Fernanda MIKE BMPX #### [place] [address] [employer] [employer] Sergeant: Collin Augustin MD MCV (RBC) [Entitic vol] 79.0 fL Low 82.6-102.9 [facility] Comment on above: Performed By: #### T RASHID BMPX #### [address] [address] [employer] Sergeant: Collin Augustin MD Monocytes (Bld) [#/Vol] 0.72 10*3/uL Normal 0.10-1.20 [facility] Comment on above: Performed By: #### T RASHID BMPX #### [address] [address] [employer] Sergeant: Collin Augustin MD Monocytes/100 WBC (Bld) 8 % Normal 3-12 [facility] Comment on above: Performed By: #### T RASHID BMPX #### [address] [address] [employer] Sergeant: Collin Augustin MD Neutrophil (Seg) 71 % High 36-65 [facility] Comment on above: Performed By: #### T RASHID BMPX #### [address] [address] [employer] Sergeant: Collin Augustin MD NRBC Automated 0.0 per 100 WBC Normal 0.0 [facility] Comment on above: Performed By: #### Fernanda MIKE BMPX #### [address] [address] [employer] Sergeant: Collin Augustin MD Platelet mean volume (Bld) [Entitic vol] 9.6 fL Normal 8.1-13.5 [facility] Comment on above: Performed By: #### T RASHID BMPX #### [address] [address] [employer] Sergeant: Collin Augustin MD Platelets (Bld) [#/Vol] 283 10*3/uL Normal 138-453 [facility] Comment on above: Performed By: #### T RASHID BMPX #### [address] [address] [employer] Sergeant: Collin Augustin MD RBC (Bld) [#/Vol] 3.48 10*6/uL Low 4.21-5.77 [facility] Comment on above: Performed By: #### T RASHID BMPX #### [facility] [address] [place] [address] [employer] [place] [employer] Sergeant: Collin Augustin MD RBC morphology finding Nom (Bld) ANISOCYTOSIS PRESENT Normal [facility] Comment on above: Result Comment: MICR OCYTOSIS PRESENT Performed By: #### T TERE MIKEX #### [facility] [address] [place] [address] [employer] [place] [employer] Sergeant: Collin Augustin MD WBC (Bld) [#/Vol] 9.6 10*3/uL Normal 3.5-11.3 [facility] Comment on above: Performed By: #### T RASHID BMPX #### [facility] [address] [place] [address] [employer] Sergeant: Collin Augustin MD Glucose,Whole Bloodon 2024 Glucose [Mass/Vol] 128 mg/dL High 75-110 [facility] Glucose [Mass/Vol] 131 mg/dL High 75-110 [facility] Glucose [Mass/Vol] 122 mg/dL High 75-110 [facility] Glucose [Mass/Vol] 111 mg/dL High 75-110 [facility] Magnesiumon 02-02-2025 Magnesium [Mass/Vol] 1.5 mg/dL Low 1.6 - 2 .4 mg/dL [facility] Magnesium [Mass/Vol] 1.5 mg/dL Low 1.6-2.4 [facility] Comment on above: Performed By: #### T RASHID BMPX #### [facility] [address] [place] [address] [employer] [employer] Sergeant: Collin Augustin MD No Panel Informationon 02-02 Interpretation and review of laboratory results Abnormal [facility] POC Glucose Fingerstickon Glucose [Mass/Vol] 128 mg/dL High 75 - 110 mg/dL [facility] Interpretation and review of laboratory results Abnormal [facility] Glucose [Mass/Vol] 131 mg/dL High 75 - 110 mg/dL [facility] Interpretation and review of laboratory results Abnormal [facility] Glucose [Mass/Vol] 122 mg/dL High 75 - 110 mg/dL [facility] Interpretation and review of laboratory results Abnormal [facility] Glucose [Mass/Vol] 111 mg/dL High 75 - 110 mg/dL [facility] Interpretation and review of laboratory results Abnormal [facility] APTTon 02-01-2025 aPTT Coag (Bld) [Time] 30.2 s [facility] Comment on above: IV Heparin Therapy Range: 66.0-92.0 sec aPTT Coag (Bld) [Time] 30.2 s Normal 23.0-36.5 [facility] Comment on above: Result Comment: IV Heparin Therapy Range: 66.0-92.0 sec Performed By: #### B MPX, CDP #### [facility] [address] [place] [address] [employer] [employer] Sergeant: Collin Augustin MD Basic Metab w/rfx MGon 02-01 Anion gap [Moles/Vol] 12 mmol/L Normal 9-16 [facility] Comment on above: Performed By: #### T RASHID BMPX #### [facility] [address] [place] [address] [employer] [employer] Sergeant: Collin Augustin MD Calcium [Mass/Vol] 8.0 mg/dL Low 8.6-10.4 [facility] Comment on above: Performed By: #### T TERE MIKEX #### [facility] [address] [place] [address] [employer] Sergeant: Collin Augustin MD Chloride [Moles/Vol] 107 mmol/L Normal 98-107 [facility] Comment on above: Performed By: #### T RASHID BMPX #### [facility] [address] [place] [address] [employer] Sergeant: Collin Augustin MD CO2 [Moles/Vol] 21 mmol/L Normal 20-31 [facility] Comment on above: Performed By: #### T RASHID, BMPX #### [facility] [address] [place] [address] [employer] Sergeant: Collin Augustin MD Creatinine [Mass/Vol] 4.1 mg/dL High 0.7-1.2 [facility] Comment on above: Performed By: #### T RASHID BMPX #### [facility] [employer] [address] [place] [address] [employer] Sergeant: Collin Augustin MD GFR/1.73 sq M.predicted among non-blacks MDRD (S/P/Bld) [Vol rate/Area] 16 mL/min/{1.73_m2} Low >60 [facility] Comment on above: Result Comment: These results are not intended [...] following therapy that affects renal tubular secretion. Performed By: #### T RASHID BMPX #### [facility] [address] [place] [address] [employer] Sergeant: Collin Augustin MD Glucose [Mass/Vol] 108 mg/dL High 74-99 [facility] Comment on above: Performed By: #### T RASHID BMPX #### [facility] [employer] [address] [place] [address] [phone] [employer] Sergeant: Collin Augustin MD Potassium [Moles/Vol] 4.0 mmol/L Normal 3.7-5.3 [facility] Comment on above: Performed By: #### T RASHID BMPX #### [facility] [address] [place] [address] [employer] [employer] Sergeant: Collin Augustin MD Sodium [Moles/Vol] 140 mmol/L Normal 136-145 [facility] Comment on above: Performed By: #### T RASHID BMPX #### [facility] [address] [place], [place] [phone] [employer] Sergeant: Collin Augustin MD Urea nitrogen [Mass/Vol] 36 mg/dL High 8-23 [facility] Comment on above: Performed By: #### Fernanda MIKE BMPX #### [facility] [address] [place], [place] [phone] [employer] Sergeant: Collin Augustin MD Basic Metabolic Panel w/ Ref honey to MGon 02-01-2025 Anion gap [Moles/Vol] 12 mmol/L 9 - 16 mmol/L [facility] [employer] Calcium [Mass/Vol] 8 mg/dL Low 8.6 - 10. 4 mg/dL [facility] Chloride [Moles/Vol] 107 mmol/L 98 - 10 7 mmol/L [facility] CO2 [Moles/Vol] 21 mmol/L 20 - 31 mmol/L [facility] Creatinine [Mass/Vol] 4.1 mg/dL High 0.7 - 1.2 mg/dL [facility] [employer] Est, Glom Filt Rate 16 Low - PINF [facility] Comment on above: These results are not intended for use [...] following therapy that affects renal tubular secretion. Glucose [Mass/Vol] 108 mg/dL High 74 - 99 mg/dL [facility] Interpretation and review of laboratory results Abnormal [facility] Potassium [Moles/Vol] 4 mmol/L 3.7 - 5.3 mmol/L [facility] Sodium [Moles/Vol] 140 mmol/L 136 - 145 mmol/L [facility] Urea nitrogen [Mass/Vol] 36 mg/dL High 8 - 23 mg/dL [facility] CBC with Auto Differentialon 02-01-2025 Basophils (Bld) [#/Vol] 0.14 10*3/uL [facility] Immature granulocytes (Bld) [#/Vol] 0.04 10*3/uL [facility] Interpretation and review of laboratory results Abnormal [facility] Lymphocytes/100 WBC (Bld) 1.71 % [facility] Monocytes/100 WBC (Bld) 0.7 % [facility] Neutrophils/100 WBC (Bld) 69 % High 36 - 65 % [facility] Nucleated RBC/100 WBC (Bld) [Ratio] 0 % 0.0 per 100 WBC [facility] RBC (Bld) [#/Vol] ANISOCYTOSIS PRESENT MICROCYTOSIS PRESENT [facility] Segmented neutrophils/100 WBC (Bld) 7.25 % [facility] WBC other (Bld) [#/Vol] 10.6 [facility] CBC with Diffon 02-01-2025 Basophils/100 WBC (Bld) 1 % Normal 0-2 [facility] Comment on above: Performed By: #### T TERE MIKEX #### [facility] [address] [place] [address] [phone] [employer] [employer] Sergeant: Collin Augustin MD Eosinophils (Bld) [#/Vol] 0.72 10*3/uL High 0.00-0.44 [facility] Comment on above: Performed By: #### T TERE MIKEX #### [facility] [address] [place] [phone] [employer] Sergeant: Collin Augustin MD Eosinophils/100 WBC (Bld) 7 % High 1-4 [facility] Comment on above: Performed By: #### TERE WRIGHTX #### [facility] [address] [place] [address] [phone] [employer] Sergeant: Collin Augustin MD Erythrocyte distribution width (RBC) [Ratio] 15.1 % High 11.8-14.4 [facility] Comment on above: Performed By: #### TERE WRIGHTX #### [facility] [address] [place] [address] [phone] [employer] Sergeant: Collin Augustin MD Hematocrit (Bld) [Volume fraction] 28.5 % Low 40.7-50.3 [facility] Comment on above: Performed By: #### TERE WRIGHTX #### [facility] [address] [place] [address] [phone] [employer] Sergeant: Collin Augustin MD Hemoglobin (Bld) [Mass/Vol] 8.8 g/dL Low 13.0-17.0 [facility] Comment on above: Performed By: #### TERE WRIGHTX #### [facility] [address] [place] [address] [phone] [employer] Sergeant: Collin Augustin MD Immature granulocytes/100 WBC (Bld) 0 % Normal 0 [facility] Comment on above: Performed By: #### TERE WRIGHTX #### [facility] [address] [place] [address] [phone] [employer] Sergeant: Collin Augustin MD Lymphocytes/100 WBC (Bld) 16 % Low 24-43 [facility] Comment on above: Performed By: #### TERE WRIGHTX #### [facility] [address] [place] [address] [phone] [employer] Sergeant: Collin Augustin MD MCH (RBC) [Entitic mass] 24.5 pg Low 25.2-33.5 [facility] Comment on above: Performed By: #### Fernanda MIKE BMPX #### [facility] [employer] [address] [place] [address] [phone] [employer]: Collin Augustin MD MCHC (RBC) [Mass/Vol] 30.9 g/dL Normal 28.4-34.8 [facility] Comment on above: Performed By: #### Fernanda MIKE BMPX #### [facility] [employer] [address] [place] [phone] [employer] Sergeant: Collin Augustin MD MCV (RBC) [Entitic vol] 79.4 fL Low 82.6-102.9 [facility] Comment on above: Performed By: #### TERE WRIGHTX #### [facility] [employer] [address] [place] [address] [employer]: Collin Augustin MD Monocytes/100 WBC (Bld) 7 % Normal 3-12 [facility] Comment on above: Performed By: #### TERE WRIGHTX #### [facility] [employer] [address] [place] [address] [employer]: Collin Augustin MD Platelet mean volume (Bld) [Entitic vol] 9.3 fL Normal 8.1-13.5 [facility] Comment on above: Performed By: #### TERE WRIGHTX #### [facility] [employer] [address] [place] [address] [employer]: Collin Augustin MD Platelets (Bld) [#/Vol] 319 10*3/uL Normal 138-453 [facility] Comment on above: Performed By: #### TERE WRIGHTX #### [facility] [employer] [address] [place] [phone] [employer]: Collin Augustin MD RBC (Bld) [#/Vol] 3.59 10*6/uL Low 4.21-5.77 [facility] Comment on above: Performed By: #### TERE WRIGHTX #### [facility] [facility] [employer] [address] [place] [address] [address] [place] [employer] Sergeant: Collin Augustin MD Abs. Basophil 0.14 k/uL Normal 0.00-0.20 [facility] Comment on above: Performed By: #### Fernanda MIKE BMPX #### [facility] [employer] [address] [place] [address] [place] Police Sergeant: Collin Augustin MD Abs.Imm.Granulocyte 0.04 k/uL Normal 0.00-0.30 [facility] Comment on above: Performed By: #### Fernanda MIKE BMPX #### [facility] [employer] [address] [place] [address] [place] Police Sergeant: Collin Augustin MD Abs.Neutrophil (Seg) 7.25 k/uL Normal 1.50-8.10 [facility] Comment on above: Performed By: #### Fernanda MIKE BMPX #### [facility] [employer] [address] [place] [address] [place] [place] Police Sergeant: Collin Augustin MD Lymphocytes (Bld) [#/Vol] 1.71 10*3/uL Normal 1.10-3.70 [facility] Comment on above: Performed By: #### Fernanda MIKE BMPX #### [facility] [employer] [address] [place] [address] [place] [employer] Sergeant: Collin Augustin MD Monocytes (Bld) [#/Vol] 0.70 10*3/uL Normal 0.10-1.20 [facility] Comment on above: Performed By: #### Fernanda MIKE BMPX #### [facility] [employer] [address] [place] [address] [place] [employer] Sergeant: Collin Augustin MD Neutrophil (Seg) 69 % High 36-65 [facility] Comment on above: Performed By: #### Fernanda MIKE BMPX #### [facility] [employer] [address] [place] [address] [phone] [place] [place] [employer] Sergeant: Collin Augustin MD NRBC Automated 0.0 per 100 WBC Normal 0.0 [facility] Comment on above: Performed By: #### Fernanda MIKE BMPX #### [facility] [address] [place], [place] [phone] [place] Police Sergeant: Collin Augustin MD RBC morphology finding Nom (Bld) ANISOCYTOSIS PRESENT Normal [facility] Comment on above: Result Comment: MICR OCYTOSIS PRESENT Performed By: #### T TERE MIKEX #### [facility] [address] [place], [place] [phone] [place] Police Sergeant: Collin Augustin MD WBC (Bld) [#/Vol] 10.6 10*3/uL Normal 3.5-11.3 [facility] Comment on above: Performed By: #### TERE WRIGHTX #### [facility] [address] [place], [place] [phone] [place] Police Sergeant: Collin Augustin MD Electrophoresis Protein, Ser on 02-01-2025 Albumin % 47 % Low 56 - 66 % [facility] Albumin [Mass/Vol] 3.3 g/dL 3.2 - 5.2 g/dL [facility] Alpha 1 globulin Elph [Mass/Vol] 0.6 g/dL High 0.1 - 0.4 g/dL [facility] Alpha 1 globulin Elph [Mass/Vol] 9 % High 3 - 5 % [facility] Alpha 2 % 13 % High 7 - 12 % [facility] Alpha 2 globulin Elph [Mass/Vol] 0.9 g/dL 0.5 - 0.9 g/dL [facility] Beta globulin Elph [Mass/Vol] 1.0 g/dL 0.7 - 1.4 g/dL [facility] Beta globulin Elph [Mass/Vol] 14 % High 8 - 13 % [facility] Gamma Globulin % 18 % 11 - 19 % [facility] Gamma globulin Elph [Mass/Vol] 1.2 g/dL 0.5 - 1.5 g/dL [facility] Interpretation and review of laboratory results Abnormal [facility] Pathologist Cyto stain Nom (Cvx/Vag) [ID] Reviewed by pathologist: Corinna Vanessa M.D. [facility] Protein [Mass/Vol] 7 g/dL 6.6 - 8.7 g/dL [facility] Protein Fractions [Interp] Alpha 1 globulins are elevated. Usually occurs with acute phase [facility] Comment on above: response. May be obs erved in a variety of conditions associated with acute tissue damage/necrosis and/or acute infection/inflammation. Immunotyping is negative for monoclonal immunoglobulin. Total Prot. Sum 7 g/dL 6.3 - 8.2 g/dL [facility] Total Prot. Sum,% 101 % 98 - 102 % [facility] FLUORO FOR SURGICAL PROCEDUR ESon 02-01-2025 FLUORO FOR SURGICAL PROCEDURES Radiology exam is complete. No Radiologist dictation. Please follow up with ordering provider. Final result Normal [facility] Glucose,Whole Bloodon 2024 Glucose [Mass/Vol] 213 mg/dL High 75-110 [facility] Glucose [Mass/Vol] 90 mg/dL Normal 75-110 [facility] Glucose [Mass/Vol] 107 mg/dL Normal 75-110 [facility] Glucose [Mass/Vol] 120 mg/dL High 75-110 [facility] Glucose [Mass/Vol] 165 mg/dL High 75-110 [facility] Guidance-- during surgeryon 02-01-2025 Radiology exam is complete. No Radiologist dictation. Please follow up with ordering provider. [facility]IS [employer] Immunotyping, Serumon 2024 ITYP Interpretation Immunotyping is negative for monoclonal immunoglobulin. [facility] Pathologist review [place] (Unsp spec) [Interp] Reviewed by pathologist: Corinna Vanessa M.D. [facility] Immunotyping,Bloodon 025 ITYP - Interpret. Immunotyping is negative for monoclonal immunoglobulin. Normal [facility] Comment on above: Performed By: #### B MPX, CDP, MG #### [facility] [address] [place], [place] [phone] [place] Police Sergeant: Collin Augustin MD PATHOLOGIST REVIEW Reviewed by pathologist: Corinna Vanessa M.D. [facility] Comment on above: Performed By: #### B MPX, CDP, MG #### [facility] [address] [place], [place] [phone] [place] Police Sergeant: Collin Augustin MD No Panel Informationon 02-01 [facility] POC Glucose Fingerstickon Glucose [Mass/Vol] 213 mg/dL High 75 - 110 mg/dL [facility] Interpretation and review of laboratory results Abnormal [facility] Glucose [Mass/Vol] 90 mg/dL 75 - 110 mg/dL [facility] Glucose [Mass/Vol] 107 mg/dL 75 - 110 mg/dL [facility] Glucose [Mass/Vol] 120 mg/dL High 75 - 110 mg/dL [facility] Interpretation and review of laboratory results Abnormal [facility] Glucose [Mass/Vol] 165 mg/dL High 75 - 110 mg/dL [facility] Interpretation and review of laboratory results Abnormal [facility] PTon 02-01-2025 INR Coag (PPP) [Relative time] 1.1 {INR} Normal [facility] Comment on above: Result Comment: Therapeutic Range: Moderate Anticoagulant Intensity: INR = 2.0-3.0 High Anticoagulant Intensity: INR = 2.5-3.5 Performed By: #### B MPX, CDP #### [facility] [address] [place], [place] [phone] [place] Police Sergeant: Collin Augustin MD PT Coag (PPP) [Time] 14.4 s Normal 11.7-14.9 [facility] Comment on above: Performed By: #### B MPX, CDP #### [facility] [place], [place] [phone] [place] Police Sergeant: Collin Augustin MD Prot. Electroph, Blon 2024 Pathologist Review: Reviewed by pathologist: Corinna Vanessa M.D. Normal [facility] Comment on above: Performed By: #### B MPX, CDP, MG #### [facility] [address] [place] [address] [phone] [place] [place] Police Sergeant: Collin Augustin MD Prot. Elect-Interp Alpha 1 globulins are elevated. Usually occurs with acute phase [facility] Comment on above: Result Comment: resp onse. May be observed in a variety of conditions associated with acute tissue damage/necrosis and/or acute infection/inflammation. Immunotyping is negative for monoclonal immunoglobulin. Performed By: #### B MPX, CDP, MG #### [facility] [address] [place] [address] [phone] [place] [place] Police Sergeant: Collin Augustin MD Protime-INRon 02-01-2025 INR Coag (PPP) [Relative time] 1.1 {INR} [facility] Comment on above: Therapeutic Range: Moderate Anticoagulant Intensity: INR = 2.0-3.0 High Anticoagulant Intensity: INR = 2.5-3.5 PT Coag (PPP) [Time] 14.4 s [facility] [employer] ANAon 01-31-2025 DNA double strand IgG IA Ql (S) NINF [facility] Comment on above: Reference Range: <10.0 Negative 10.0-15.0 Equivocal >15.0 Positive Nuclear Ab IA Ql (S) Negative NEGATIVE [facility] [employer] Nuclear IgG IA (S) [Ratio] 0.2 U/mL NINF - 0.7 U/mL [facility] [employer] Comment on above: Reference Range: <0.7 Negative 0.7-1.0 Equivocal >1.0 Positive LENNIE Screen includes U1RNP,RNP70,Sm,Ro(SS-A),La(SS-B),CENP,Scl-70,Jossy-1 JOSE Screenon 01-31-2025 JOSE Screen Negative Normal NEG [facility] Comment on above: Performed By: #### B MPXMARIELOS, MG #### [facility] [address] [place], [place] [phone] [place] Police Sergeant: Collin Augustin MD Anti-dsDNA <0.5 Normal <10.0 [facility] Comment on above: Result Comment: Reference Range: <10.0 Negative 10.0-15.0 Equivocal >15.0 Positive Performed By: #### B MPX CDP, MG #### [facility] [address] [place], [place] [phone] [place] Police Sergeant: Collin Augustin MD LENNIE Screen 0.2 U/mL Normal <0.7 [facility] Comment on above: Result Comment: Reference Range: <0.7 Negative 0.7-1.0 Equivocal >1.0 Positive LENNIE Screen includes U1RNP,RNP70,Sm,Ro(SS-A),La(SS-B),CENP,Scl-70,Jossy-1 Performed By: #### B KINGXMARIELOS, MG #### [facility] [address] [place] [address] [place] [place] Police Sergeant: Collin Augustin MD Anti-Neutrophilic Cytoplasmi c Antibodyon 01-31-2025 ANCA Myeloperoxidase AU/mL 0.0 - 3 .5 AU/mL [facility] Comment on above: Reference Range: <3.5 Negative 3.5-5.0 Equivocal >5.0 Positive ANCA Proteinase 3 AU/mL 0.0 - 2.0 AU/mL [facility] Comment on above: Reference Range: <2.0 Negative 2.0-3.0 Equivocal >3.0 Positive Basic Metab w/rfx MGon 01-31 Anion gap [Moles/Vol] 16 mmol/L Normal 9-16 [facility] Comment on above: Performed By: #### B MPX, CDP #### [facility] [address] [place], [place] [phone] [place] Police Sergeant: Collin Augustin MD Calcium [Mass/Vol] 8.3 mg/dL Low 8.6-10.4 [facility] Comment on above: Performed By: #### B MPX, CDP #### [facility] [employer] [address] [place] [address] [place] [place] [employer] Sergeant: Collin Augustin MD Chloride [Moles/Vol] 101 mmol/L Normal 98-107 [facility] Comment on above: Performed By: #### B MPX, CDP #### [facility] [employer] [address] [place] [address] [place] [place] Police Sergeant: Collin Augustin MD CO2 [Moles/Vol] 20 mmol/L Normal 20-31 [facility] Comment on above: Performed By: #### B MPX, CDP #### [facility] [employer] [address] [place] [address] [employer] [place] Police Sergeant: Collin Augustin MD Creatinine [Mass/Vol] 5.7 mg/dL Critically high 0.7-1.2 [facility] Comment on above: Result Comment: Prev ious Alert Value Reported Performed By: #### B KINGX, CDP #### [address] [address] [place] [place] Police Sergeant: Collin Augustin MD GFR/1.73 sq M.predicted among non-blacks MDRD (S/P/Bld) [Vol rate/Area] 11 mL/min/{1.73_m2} Low >60 [facility] Comment on above: Result Comment: These results are not intended [...] following therapy that affects renal tubular secretion. Performed By: #### B MPX, CDP #### [facility] [employer] [address] [place] [address] [phone] [employer] [place] Police Sergeant: Collin Augustin MD Glucose [Mass/Vol] 134 mg/dL High 74-99 [facility] Comment on above: Performed By: #### B MPX, CDP #### [facility] [address] [place] [address] [place] [place] Police Sergeant: Collin Augustin MD Potassium [Moles/Vol] 3.9 mmol/L Normal 3.7-5.3 [facility] Comment on above: Performed By: #### B MPX, CDP #### [facility] [address] [place] [address] [employer] [place] Police Sergeant: Collin Augustin MD Sodium [Moles/Vol] 137 mmol/L Normal 136-145 [facility] Comment on above: Performed By: #### B MPX, CDP #### [facility] [address] [place] [address] [employer] [place] Police Sergeant: Collin Augustin MD Urea nitrogen [Mass/Vol] 50 mg/dL High 8-23 [facility] Comment on above: Performed By: #### B MPX, CDP #### [facility] [address] [place] [address] [employer] [place] Police Sergeant: Collin Augustin MD Basic Metabolic Panel w/ Ref honey to MGon 01-31-2025 Anion gap [Moles/Vol] 16 mmol/L 9 - 16 mmol/L [facility] Calcium [Mass/Vol] 8.3 mg/dL Low 8.6 - 10. 4 mg/dL [facility] Chloride [Moles/Vol] 101 mmol/L 98 - 10 7 mmol/L [facility] CO2 [Moles/Vol] 20 mmol/L 20 - 31 mmol/L [facility] Creatinine [Mass/Vol] 5.7 mg/dL Critically high 0.7 - 1.2 mg/dL [facility] Comment on above: Previous Alert Value Reported Est, Glom Filt Rate 11 Low - PINF [facility] Comment on above: These results are not intended for use [...] following therapy that affects renal tubular secretion. Glucose [Mass/Vol] 134 mg/dL High 74 - 99 mg/dL [facility] Interpretation and review of laboratory results Abnormal [facility] Potassium [Moles/Vol] 3.9 mmol/L 3.7 - 5.3 mmol/L [facility] Sodium [Moles/Vol] 137 mmol/L 136 - 145 mmol/L [facility] Urea nitrogen [Mass/Vol] 50 mg/dL High 8 - 23 mg/dL [facility] CBC with Auto Differentialon 01-31-2025 Basophils (Bld) [#/Vol] 0.15 10*3/uL [facility] Basophils/100 WBC (Bld) 1 % 0 - 2 % [facility] Eosinophils (Bld) [#/Vol] 0.22 10*3/uL [facility] Eosinophils/100 WBC (Bld) 2 % 1 - 4 % [facility] Erythrocyte distribution width (RBC) [Ratio] 15.2 % High 11.8 - 14.4 % [facility] Hematocrit (Bld) [Volume fraction] 32.1 % Low 40.7 - 50.3 % [facility] Hemoglobin (Bld) [Mass/Vol] 9.8 g/dL Low 13.0 - 17.0 g/dL [facility] Immature granulocytes (Bld) [#/Vol] 0.05 10*3/uL [facility] Immature granulocytes/100 WBC (Bld) 0 % 0 [facility] Interpretation and review of laboratory results Abnormal [facility] Lymphocytes/100 WBC (Bld) 12 % Low 24 - 43 % [facility] Lymphocytes/100 WBC (Bld) 1.39 % [facility] MCH (RBC) [Entitic mass] 24 pg Low 25.2 - 33.5 pg [facility] MCHC (RBC) [Mass/Vol] 30.5 g/dL 28.4 - 34.8 g/dL [facility] MCV (RBC) [Entitic vol] 78.7 fL Low 82.6 - 102.9 fL [facility] Monocytes/100 WBC (Bld) 8 % 3 - 12 % [facility] Monocytes/100 WBC (Bld) 0.93 % [facility] Neutrophils/100 WBC (Bld) 77 % High 36 - 65 % [facility] Nucleated RBC/100 WBC (Bld) [Ratio] 0 % 0.0 per 100 WBC [facility] Platelet mean volume (Bld) [Entitic vol] 9 fL 8.1 - 13.5 fL [facility] Platelets (Bld) [#/Vol] 345 10*3/uL [facility] RBC (Bld) [#/Vol] 4.08 10*6/uL Low 4.21 - 5.7 7 m/uL [facility] RBC (Bld) [#/Vol] ANISOCYTOSIS PRESENT MICROCYTOSIS PRESENT [facility] Segmented neutrophils/100 WBC (Bld) 9.09 % High [facility] WBC other (Bld) [#/Vol] 11.8 High [facility] CBC with Diffon 01-31-2025 Abs. Basophil 0.15 k/uL Normal 0.00-0.20 [facility] Comment on above: Performed By: #### B MPX, CDP #### [facility] [address] [place] [address] [phone] [employer] [employer] Sergeant: Collin Augustin MD Abs.Imm.Granulocyte 0.05 k/uL Normal 0.00-0.30 [facility] Comment on above: Performed By: #### B MPX, CDP #### [facility] [address] [place] [address] [phone] [employer] [employer] Sergeant: Collin Augustin MD Abs.Neutrophil (Seg) 9.09 k/uL High 1.50-8.10 [facility] Comment on above: Performed By: #### B MPX, CDP #### [address] [address] [employer] Sergeant: Collin Augustin MD Basophils/100 WBC (Bld) 1 % Normal 0-2 [facility] Comment on above: Performed By: #### B MPX, CDP #### [address] [address] [employer] Sergeant: Collin Augustin MD Eosinophils (Bld) [#/Vol] 0.22 10*3/uL Normal 0.00-0.44 [facility] Comment on above: Performed By: #### B MPX, CDP #### [facility] [employer] [address] [place] [address] [employer] [employer] Sergeant: Collin Augustin MD Eosinophils/100 WBC (Bld) 2 % Normal 1-4 [facility] Comment on above: Performed By: #### B MPX, CDP #### [address] [address] [employer] [employer] Police Sergeant: Collin Augustin MD Erythrocyte distribution width (RBC) [Ratio] 15.2 % High 11.8-14.4 [facility] Comment on above: Performed By: #### B MPX, CDP #### [facility] [employer] [address] [place] [address] [employer] [employer] Police Sergeant: Collin Augustin MD Hematocrit (Bld) [Volume fraction] 32.1 % Low 40.7-50.3 [facility] Comment on above: Performed By: #### B MPX, CDP #### [facility] [employer] [address] [place] [address] [employer] [employer] Sergeant: Collin Augustin MD Hemoglobin (Bld) [Mass/Vol] 9.8 g/dL Low 13.0-17.0 [facility] Comment on above: Performed By: #### B MPX, CDP #### [address] [address] [employer] [employer] Sergeant: Collin Augustin MD Immature granulocytes/100 WBC (Bld) 0 % Normal 0 [facility] Comment on above: Performed By: #### B MPX, CDP #### [address] [address] [employer] [employer] Sergeant: Collin Augustin MD Lymphocytes (Bld) [#/Vol] 1.39 10*3/uL Normal 1.10-3.70 [facility] Comment on above: Performed By: #### B MPX, CDP #### [address] [address] [employer] [employer] Sergeant: Collin Augustin MD Lymphocytes/100 WBC (Bld) 12 % Low 24-43 [facility] Comment on above: Performed By: #### B MPX, CDP #### [address] [address] [employer] [employer] Sergeant: Collin Augustin MD MCH (RBC) [Entitic mass] 24.0 pg Low 25.2-33.5 [facility] Comment on above: Performed By: #### B MPX, CDP #### [address] [address] [employer] [employer] Police Sergeant: Collin Augustin MD MCHC (RBC) [Mass/Vol] 30.5 g/dL Normal 28.4-34.8 [facility] Comment on above: Performed By: #### B MPX, CDP #### [address] [address] [employer] [employer] Sergeant: Collin Augustin MD MCV (RBC) [Entitic vol] 78.7 fL Low 82.6-102.9 [facility] Comment on above: Performed By: #### B MPX, CDP #### [address] [address] [employer] [employer] Sergeant: Collin Augustin MD Monocytes (Bld) [#/Vol] 0.93 10*3/uL Normal 0.10-1.20 [facility] Comment on above: Performed By: #### B MPX, CDP #### [address] [address] [employer] Sergeant: Collin Augustin MD Monocytes/100 WBC (Bld) 8 % Normal 3-12 [facility] Comment on above: Performed By: #### B MPX, CDP #### [address] [address] [employer] [employer] Sergeant: Collin Augustin MD Neutrophil (Seg) 77 % High 36-65 [facility] Comment on above: Performed By: #### B MPX, CDP #### [address] [address] [employer] [employer] Sergeant: Collin Augustin MD NRBC Automated 0.0 per 100 WBC Normal 0.0 [facility] Comment on above: Performed By: #### B MPX, CDP #### [address] [address] [employer] [employer] Sergeant: Collin Augustin MD Platelet mean volume (Bld) [Entitic vol] 9.0 fL Normal 8.1-13.5 [facility] Comment on above: Performed By: #### B MPX, CDP #### [address] [address] [employer] [employer] Sergeant: Collin Augustin MD Platelets (Bld) [#/Vol] 345 10*3/uL Normal 138-453 [facility] Comment on above: Performed By: #### B MPX, CDP #### [address] [address] [employer] [employer] Sergeant: Collin Augustin MD RBC (Bld) [#/Vol] 4.08 10*6/uL Low 4.21-5.77 [facility] Comment on above: Performed By: #### B MPX, CDP #### [facility] [place] [address] [employer] [employer] Sergeant: Collin Augustin MD RBC morphology finding Nom (Bld) ANISOCYTOSIS PRESENT Normal [facility] Comment on above: Result Comment: MICR OCYTOSIS PRESENT Performed By: #### B MPX, CDP #### [facility] [address] [place] [address] [address] [employer] Police Sergeant: Collin Augustin MD WBC (Bld) [#/Vol] 11.8 10*3/uL High 3.5-11.3 [facility] Comment on above: Performed By: #### B MPX, CDP #### [facility] [employer] [address] [place] [address] [employer] [employer] Sergeant: Collin Augustin MD Cult,Urineon 01-31-2025 Cult,Urine Specimen Description .CLEAN CATCH URINE Special Requests Site: Urine Culture NO GROWTH Report Status FINAL 01/31/2025 Normal [facility] Comment on above: Performed By: #### B MPX, CDP #### [facility] [place] [address] [employer] [employer] Sergeant: Collin Augustin MD Culture, Urineon 01-31-2025 Microorganism identified Cx Nom (Unsp spec) NO GROWTH [facility] [employer] Service comment (Unsp spec) [Interp] Site: [facility] [employer] Specimen Description .CLEAN CATCH URINE [facility] [employer] [facility] [employer] EKG 12 LeadOrdered By: Celeste Carnes on 01-31-2025 Atrial Rate 98 BPM [employer] Work Phone: P [place] 9 degrees [employer] Work Phone: P-R Interval 126 ms [employer] Work Phone: Q-T Interval 358 ms [employer] Work Phone: QRS Duration 76 ms [place] [employer] Work Phone: QTc Calculation (Bazett) 457 ms [employer] Work Phone: R [place] 10 degrees [employer] Work Phone: T [place] 58 degrees [employer] Work Phone: Ventricular Rate 98 BPM [place] Totho nathanael [employer] Work Phone: [place] [employer] Work Phone: EKG 12 Leadon 01-31-2025 Normal sinus rhythm Normal ECG When compared with ECG of 30-JAN-2025 04:16, Sinus rhythm has replaced Ectopic atrial rhythm Left posterior fascicular block is no longer Present Nonspecific T wave abnormality, worse in Lateral leads [facility] STV Toribio Gavin DO / Celeste Carnes MD - 01/31/2025 Normal sinus rhythm Normal ECG When compared with ECG of 30-JAN-2025 04:16, Sinus rhythm has replaced Ectopic atrial rhythm Left posterior fascicular block is no longer Present Nonspecific T wave abnormality, worse in Lateral leads [facility] Glucose,Whole Bloodon 2024 Glucose [Mass/Vol] 131 mg/dL High 75-110 [facility] Glucose [Mass/Vol] 127 mg/dL High 75-110 [facility] Glucose [Mass/Vol] 131 mg/dL High 75-110 [facility] [employer] Neutrophil Cytopl Abon 01-31 MPO-ANCA <0.3 Normal 0.0-3.5 [facility] Comment on above: Result Comment: Reference Range: <3.5 Negative 3.5-5.0 Equivocal >5.0 Positive Performed By: #### B MPX, CDP, MG #### Responde Ai [facility] [place], [place] [phone] [place] [employer] Sergeant: Collin Augustin MD PR3-ANCA <0.7 Normal 0.0-2.0 [facility] Comment on above: Result Comment: Reference Range: <2.0 Negative 2.0-3.0 Equivocal >3.0 Positive Performed By: #### B MPX, CDP, MG #### Responde Ai [address] [place] [address] [phone] [place] [employer] Sergeant: Collin Augustin MD No Panel Informationon 01-31 [facility] POC Glucose Fingerstickon Glucose [Mass/Vol] 131 mg/dL High 75 - 110 mg/dL [facility] Interpretation and review of laboratory results Abnormal [facility] Glucose [Mass/Vol] 127 mg/dL High 75 - 110 mg/dL [facility] Interpretation and review of laboratory results Abnormal [facility] Interpretation and review of laboratory results Abnormal [facility] Prot. Electroph, Blon 2024 Albumin [Mass/Vol] 3.3 g/dL Normal 3.2-5.2 [facility] Comment on above: Performed By: #### B MPX, CDP, MG #### Responde Ai [address] [place] [address] [place] [employer] Sergeant: Collin Augustin MD Albumin, % 47 % Low 56-66 [facility] Comment on above: Performed By: #### B MPX, CDP, MG #### Responde Ai [address] [place] [address] [phone] [place] [employer] Sergeant: Collin Augustin MD Dpvfc-1-voaovjshv 0.6 g/dL High 0.1-0.4 [facility] Comment on above: Performed By: #### B MPX, CDP, MG #### Responde Ai [address] [place] [address] [phone] [place] [employer] Sergeant: Collin Augustin MD Jcnqz-2-loumstrtg,% 9 % High 3-5 [facility] Comment on above: Performed By: #### B MPX, CDP, MG #### Responde Ai [address] [place] [address] [place] [place] [employer] Sergeant: Collin Augustin MD Zporw-0-fusfgwmvx 0.9 g/dL Normal 0.5-0.9 [facility] Comment on above: Performed By: #### B MPX, CDP, MG #### [facility] [address] [place] [address] [place] Police Sergeant: Collin Augustin MD Bnqjt-6-lsnupmzbs,% 13 % High 7-12 [facility] Comment on above: Performed By: #### B MPX, CDP, MG #### [facility] [address] [place] [address] [place] [employer] Sergeant: Collin Augustin MD Beta-globulins 1.0 g/dL Normal 0.7-1.4 [facility] Comment on above: Performed By: #### B MPX, CDP, MG #### [facility] [address] [place] [address] [place] [employer] Sergeant: Collin Augustin MD Beta-globulins,% 14 % High 8-13 [facility] Comment on above: Performed By: #### B MPX, CDP, MG #### [facility] [address] [place] [address] [place] [employer] Sergeant: Collin Augustin MD Gamma-globulins 1.2 g/dL Normal 0.5-1.5 [facility] Comment on above: Performed By: #### B MPX, CDP, MG #### [facility] [address] [place] [address] [place] [place] [employer] Sergeant: Collin Augustin MD Gamma-globulins,% 18 % Normal 11-19 [facility] Comment on above: Performed By: #### B MPX, CDP, MG #### [facility] [address] [place] [address] [place] [employer] Sergeant: Collin Augustin MD Total Prot. Sum 7.0 g/dL Normal 6.3-8.2 [facility] Comment on above: Performed By: #### B MPX, CDP, MG #### Responde Ai [address] [place] [address] [place] [employer] Sergeant: Collin Augustin MD Total Prot. Sum,% 101 % Normal 98-102 [facility] Comment on above: Performed By: #### B MPX, CDP, MG #### Responde Ai [address] [place] [address] [phone] [place] [employer] Sergeant: Collin Augustin MD Protein, urine, randomon Protein (U) [Mass/Vol] 482 mg/dL [facility] Comment on above: No normal range esta blished. [facility] Protein,Tot,Ransom Uron 2024 Tot Prot. Conc. 482 mg/dL Normal [facility] Comment on above: Result Comment: No n ormal range established. Performed By: #### B MPX, CDP #### [facility] [address] [place] [address] [place] [employer] Sergeant: Collin Augustin MD Urinalysis w/ Microon 2024 Epithelial cells LM Ql (Urine sed) None Normal 0-5 [facility] Comment on above: Performed By: #### B MPX, CDP #### Responde Ai [address] [place] [address] [phone] [place] [employer] Sergeant: Collin Augustin MD Urine RBC's TOO NUMEROUS TO COUNT Normal 0-2 [facility] Comment on above: Performed By: #### B MPX, CDP #### Resp[facility] [address] [place] [address] [phone] [place] [employer] Sergeant: Collin Augustin MD Urine WBC's 2 TO 5 Normal 0-5 [facility] Comment on above: Performed By: #### B MPX, CDP #### Resp[facility] [address] [place] [address] [employer] [employer] Sergeant: Collin Augustin MD Bilirubin, SemiQt,Ur Negative Normal NEG [facility] Comment on above: Performed By: #### B MPX, CDP #### [address] [address] [place] [employer] Sergeant: Collin Augustin MD Blood, Urine LARGE Abnormal NEG [facility] Comment on above: Performed By: #### B MPX, CDP #### [facility] [employer] [address] [place] [address] [place] [employer] Sergeant: Collin Augustin MD Clarity (U) Cloudy Abnormal CLEAR [facility] Comment on above: Performed By: #### B MPX, CDP #### [address] [address] [employer] [place] [employer] Sergeant: Collin Augustin MD Color (U) Red Abnormal YEL [facility] Comment on above: Result Comment: INTE RPRET WITH CAUTION DUE TO INTENSE COLOR OF URINE. Performed By: #### B MPX, CDP #### [address] [address] [employer] [place] Police Sergeant: Collin Augustin MD Glucose Ql (U) Negative Normal NEG [facility] Comment on above: Performed By: #### B MPX, CDP #### [address] [address] [employer] [place] [employer] Sergeant: Collin Augustin MD Ketones Ql (U) Negative Normal NEG [facility] Comment on above: Performed By: #### B MPX, CDP #### [address] [address] [employer] [place] [employer] Sergeant: Collin Augustin MD Leukocyte esterase Test strip Ql (U) TRACE Abnormal NEG [facility] Comment on above: Performed By: #### B MPX, CDP #### [facility] [address] [place] [address] [employer] [employer] Sergeant: Collin Augustin MD Nitrite,Ur Negative Normal NEG [facility] Comment on above: Performed By: #### B MPX, CDP #### [facility] [address] [place] [address] [place] [employer] Sergeant: Collin Augustin MD PH,Ur 7.0 Normal 5.0-8.0 [facility] Comment on above: Performed By: #### B MPX, CDP #### [facility] [address] [place] [address] [place] [employer] Sergeant: Collin Augustin MD Protein Ql (U) 3+ mg/dL Abnormal NEG [facility] Comment on above: Performed By: #### B MPX, CDP #### [facility] [employer] [address] [place] [address] [employer] [place] [employer] Sergeant: Collin Augustin MD Spec. [place],Ur 1.011 Normal 1.005-1.030 [facility] Comment on above: Performed By: #### B MPX, CDP #### [facility] [employer] [address] [place] [address] [employer] [employer] Sergeant: Collin Augustin MD Urobilinogen,Ur Normal Normal 0.0-1.0 [facility] Comment on above: Performed By: #### B MPX, CDP #### [facility] [employer] [address] [place] [phone] [employer] [place] [employer] Sergeant: Collin Augustin MD Urinalysis with Microscopico n 01-31-2025 Bilirubin Ql (U) Negative NEGATIVE [employer] [facility] [employer] Clarity (U) Cloudy Abnormal Clear [employer] Color (U) Red Abnormal Yellow [employer] Comment on above: INTERPRET WITH CAUTI ON DUE TO INTENSE COLOR OF URINE. Epithelial cells LM.HPF (Urine sed) [#/Area] None [employer] Glucose Test strip (U) [Mass/Vol] Negative NEGATIVE mg/dL [facility] Hemoglobin Auto test strip Ql (U) LARGE Abnormal NEGATIVE [facility] Interpretation and review of laboratory results Abnormal [facility] Ketones (U) [Mass/Vol] Negative NEGATIVE mg/dL [facility] Leukocyte esterase Test strip Ql (U) TRACE Abnormal NEGATIVE [facility] Nitrite Ql (U) Negative NEGATIVE [facility] pH (U) 7 [pH] 5.0 - 8.0 [facility] Protein (U) [Mass/Vol] 3+ Abnormal NEGATIVE mg/dL [facility] RBC LM.HPF (Urine sed) [#/Area] TOO NUMEROUS TO COUNT [facility] Specific gravity (U) [Rel density] 1.011 1.005 - 1.030 [facility] Urobilinogen Qn (U) Normal 0.0 - 1. 0 EU/dL [facility] WBC LM.HPF (Urine sed) [#/Area] 2 TO 5 [facility] Basic Metab w/rfx MGon 01-30 Anion gap [Moles/Vol] 19 mmol/L High 9-16 [facility] Comment on above: Performed By: #### MIKE WRIGHT #### Responde Ai [address] [place] [address] [place] [place] [employer] Sergeant: Collin Augustin MD Calcium [Mass/Vol] 9.0 mg/dL Normal 8.6-10.4 [facility] Comment on above: Performed By: #### TERE WRIGHTX #### Responde Ai [address] [place], [place] [phone] [employer] [employer] Sergeant: Collin Augustin MD Chloride [Moles/Vol] 98 mmol/L Normal 98-107 [facility] Comment on above: Performed By: #### TERE WRIGHTX #### Responde Ai [address] [place] [address] [phone] [employer] [place] [employer] Sergeant: Clolin Augustin MD CO2 [Moles/Vol] 20 mmol/L Normal 20-31 [facility] Comment on above: Performed By: #### T TERE MIKEX #### [facility] [address] [place] [address] [employer] [employer] Sergeant: Collin Augustin MD Creatinine [Mass/Vol] 6.2 mg/dL Critically high 0.7-1.2 [facility] Comment on above: Result Comment: Prev ious Alert Value Reported Performed By: #### T TERE MIKEX #### [facility] [employer] [address] [place] [address] [employer] [place] [employer] Sergeant: Collin Augustin MD GFR/1.73 sq M.predicted among non-blacks MDRD (S/P/Bld) [Vol rate/Area] 10 mL/min/{1.73_m2} Low >60 [facility] Comment on above: Result Comment: These results are not intended [...] following therapy that affects renal tubular secretion. Performed By: #### TERE WRIGHTX #### [facility] [address] [place] [address] [employer] [place] [employer] Sergeant: Collin Augustin MD Glucose [Mass/Vol] 136 mg/dL High 74-99 [facility] Comment on above: Performed By: #### TERE WRIGHTX #### [facility] [address] [place] [address] [employer] [place] [employer] Sergeant: Collin Augustin MD Potassium [Moles/Vol] 4.0 mmol/L Normal 3.7-5.3 [facility] Comment on above: Performed By: #### TERE WRIGHTX #### [facility] [address] [place] [address] [employer] [place] Police Sergeant: Collin Augustin MD Sodium [Moles/Vol] 137 mmol/L Normal 136-145 [facility] Comment on above: Performed By: #### T RASHID BMPX #### [facility] [employer] [address] [place] [address] [employer] [place] [employer] Sergeant: Collin Augustin MD Urea nitrogen [Mass/Vol] 48 mg/dL High 8-23 [facility] Comment on above: Performed By: #### T RASHID BMPX #### [facility] [employer] [address] [place] [address] [employer] [place] [employer] Sergeant: Collin Augustin MD Anion gap [Moles/Vol] 22 mmol/L High 9-16 [facility] Comment on above: Performed By: #### T RASHID BMPX #### [facility] [employer] [address] [place] [address] [employer] Sergeant: Collin Augustin MD Calcium [Mass/Vol] 8.6 mg/dL Normal 8.6-10.4 [facility] Comment on above: Performed By: #### T RASHID BMPX #### [facility] [employer] [address] [place] [address] [employer] [place] [employer] Sergeant: Collin Augustin MD Chloride [Moles/Vol] 109 mmol/L High 98-107 [facility] Comment on above: Performed By: #### T RASHID BMPX #### [facility] [employer] [address] [place] [address] [employer] Sergeant: Collin Augustin MD CO2 [Moles/Vol] 10 mmol/L Low 20-31 [facility] Comment on above: Performed By: #### T RASHID BMPX #### [facility] [employer] [address] [place] [address] [employer] [place] [employer] Sergeant: Collin Augustin MD Creatinine [Mass/Vol] 13.0 mg/dL Critically high 0.7-1.2 [facility] Comment on above: Performed By: #### T RASHID BMPX #### Resp[facility] [address] [place] [address] [phone] [employer] [place] [employer] Sergeant: Collin Augustin MD GFR/1.73 sq M.predicted among non-blacks MDRD (S/P/Bld) [Vol rate/Area] 4 mL/min/{1.73_m2} Low >60 [facility] Comment on above: Result Comment: These results are not intended [...] following therapy that affects renal tubular secretion. Performed By: #### Fernanda MIKE BMPX #### [facility] [address] [place] [address] [employer] Sergeant: Collin Augustin MD Glucose [Mass/Vol] 99 mg/dL Normal 74-99 [facility] Comment on above: Performed By: #### Fernanda MIKE BMPX #### [facility] [address] [place] [address] [employer] [place] Police Sergeant: Collin Augustin MD Potassium [Moles/Vol] 7.1 mmol/L Critically high 3.7-5.3 [facility] Comment on above: Performed By: #### Fernanda MIKE BMPX #### Resp[facility] [address] [place] [address] [employer] Police Sergeant: Collin Augustin MD Sodium [Moles/Vol] 141 mmol/L Normal 136-145 [facility] Comment on above: Performed By: #### Fernanda MIKE BMPX #### Responde Ai [address] [place] [address] [employer] [place] [employer] Sergeant: Collin Augustin MD Urea nitrogen [Mass/Vol] 108 mg/dL Critically high 8-23 [facility] Comment on above: Performed By: #### T ROPI, BMPX #### Responde Ai [address] [place] [phone] [employer] [place] [employer] Sergeant: Collin Augustin MD Basic Metabolic Panel w/ Ref honey to MGon 01-30-2025 Anion gap [Moles/Vol] 19 mmol/L High 9 - 16 mmol/L [facility] Calcium [Mass/Vol] 9 mg/dL 8.6 - 10. 4 mg/dL [facility] Chloride [Moles/Vol] 98 mmol/L 98 - 10 7 mmol/L [facility] CO2 [Moles/Vol] 20 mmol/L 20 - 31 mmol/L [facility] Creatinine [Mass/Vol] 6.2 mg/dL Critically high 0.7 - 1.2 mg/dL [facility] Comment on above: Previous Alert Value Reported Truong Alcocert Rate 10 Low - PINF [facility] [employer] Comment on above: These results are not intended for use [...] following therapy that affects renal tubular secretion. Glucose [Mass/Vol] 136 mg/dL High 74 - 99 mg/dL [employer] Potassium [Moles/Vol] 4 mmol/L 3.7 - 5.3 mmol/L [facility] Sodium [Moles/Vol] 137 mmol/L 136 - 145 mmol/L [facility] Urea nitrogen [Mass/Vol] 48 mg/dL High 8 - 23 mg/dL [facility] Anion gap [Moles/Vol] 22 mmol/L High 9 - 16 mmol/L [facility] Calcium [Mass/Vol] 8.6 mg/dL 8.6 - 10. 4 mg/dL [facility] Chloride [Moles/Vol] 109 mmol/L High 98 - 10 7 mmol/L [facility] CO2 [Moles/Vol] 10 mmol/L Low 20 - 31 mmol/L [facility] Creatinine [Mass/Vol] 13.0 mg/dL Critically high 0.7 - 1.2 mg/dL [facility] Est, Glom Filt Rate 4 Low - PINF [facility] Comment on above: These results are not intended for use [...] following therapy that affects renal tubular secretion. Glucose [Mass/Vol] 99 mg/dL 74 - 99 mg/dL [facility] Potassium [Moles/Vol] 7.1 mmol/L Critically high 3.7 - 5.3 mmol/L [facility] Sodium [Moles/Vol] 141 mmol/L 136 - 145 mmol/L [facility] Urea nitrogen [Mass/Vol] 108 mg/dL Critically high 8 - 23 mg/dL [facility] C3on 01-30-2025 C3 162 mg/dL Normal 90-180 [facility] Comment on above: Performed By: #### B MPX, CDP, MG #### [facility] [address] [place] [address] [employer] [place] [employer] Sergeant: Collin Augustin MD C3 Complementon 01-30-2025 Complement C3 [Mass/Vol] 162 mg/dL 90 - 180 mg/dL [facility] C4on 01-30-2025 C4 31 mg/dL Normal 10-40 [facility] Comment on above: Performed By: #### B MPX, CDP, MG #### [facility] [address] [place] [address] [employer] [place] Police Sergeant: Collin Augustin MD C4 Complementon 01-30-2025 Complement C4 [Mass/Vol] 31 mg/dL 10 - 40 mg/dL [facility] CBC with Auto Differentialon 01-30-2025 Basophils (Bld) [#/Vol] 0.11 10*3/uL [facility] [employer] Immature granulocytes (Bld) [#/Vol] 0.06 10*3/uL [facility] Interpretation and review of laboratory results Abnormal [facility] Lymphocytes/100 WBC (Bld) 0.94 % Low [facility] Monocytes/100 WBC (Bld) 0.6 % [facility] Neutrophils/100 WBC (Bld) 83 % High 36 - 65 % [facility] Nucleated RBC/100 WBC (Bld) [Ratio] 0 % 0.0 per 100 WBC [facility] RBC (Bld) [#/Vol] ANISOCYTOSIS PRESENT MICROCYTOSIS PRESENT [facility] Segmented neutrophils/100 WBC (Bld) 10.19 % High [facility] WBC other (Bld) [#/Vol] 12.1 High [facility] CBC with Diffon 01-30-2025 Basophils/100 WBC (Bld) 1 % Normal 0-2 [facility] Comment on above: Performed By: #### B MPX, CDP #### Responde Ai [address] [place] [address] [employer] [employer] Sergeant: Collin Augustin MD Eosinophils (Bld) [#/Vol] 0.21 10*3/uL Normal 0.00-0.44 [facility] Comment on above: Performed By: #### B MPX, CDP #### Responde Ai [address] [place] [address] [employer] [employer] Sergeant: Collin Augustin MD Eosinophils/100 WBC (Bld) 2 % Normal 1-4 [facility] Comment on above: Performed By: #### B MPX, CDP #### Responde Ai [address] [place] [address] [employer] [employer] Sergeant: Collin Augustin MD Erythrocyte distribution width (RBC) [Ratio] 15.3 % High 11.8-14.4 [facility] Comment on above: Performed By: #### B MPX, CDP #### Responde Ai [address] [place], [place] [phone] [employer] Sergeant: Collin Augustin MD Hematocrit (Bld) [Volume fraction] 32.1 % Low 40.7-50.3 [facility] Comment on above: Performed By: #### B MPX, CDP #### [facility] [employer] [address] [place] [address] [employer] Sergeant: Collin Augustin MD Hemoglobin (Bld) [Mass/Vol] 9.9 g/dL Low 13.0-17.0 [facility] Comment on above: Performed By: #### B MPX, CDP #### [facility] [employer] [address] [place] [address] [employer] Sergeant: Collin Augustin MD Immature granulocytes/100 WBC (Bld) 1 % High 0 [facility] Comment on above: Performed By: #### B MPX, CDP #### [facility] [employer] [address] [place] [address] [employer] Sergeant: Collin Augustin MD Lymphocytes/100 WBC (Bld) 8 % Low 24-43 [facility] Comment on above: Performed By: #### B MPX, CDP #### [address] [address] [employer] Sergeant: Collin Augustin MD MCH (RBC) [Entitic mass] 24.4 pg Low 25.2-33.5 [facility] Comment on above: Performed By: #### B MPX, CDP #### [facility] [employer] [address] [place] [address] [employer] [employer] Sergeant: Collin Augustin MD MCHC (RBC) [Mass/Vol] 30.8 g/dL Normal 28.4-34.8 [facility] [employer] Comment on above: Performed By: #### B MPX, CDP #### [facility] [employer] [address] [place] [address] [employer] Sergeant: Collin Augustin MD MCV (RBC) [Entitic vol] 79.3 fL Low 82.6-102.9 [employer] Comment on above: Performed By: #### B MPX, CDP #### [facility] [address] [place] [address] [employer] Sergeant: Collin Augustin MD Monocytes/100 WBC (Bld) 5 % Normal 3-12 [facility] Comment on above: Performed By: #### B MPX, CDP #### [facility] [address] [place] [address] [employer] Sergeant: Collin Augustin MD Platelet mean volume (Bld) [Entitic vol] 8.8 fL Normal 8.1-13.5 [facility] Comment on above: Performed By: #### B MPX, CDP #### [facility] [address] [place] [address] [employer] Sergeant: Collin Augustin MD Platelets (Bld) [#/Vol] 374 10*3/uL Normal 138-453 [facility] Comment on above: Performed By: #### B MPX, CDP #### [facility] [address] [place] [address] [employer] Sergeant: Collin Augustin MD RBC (Bld) [#/Vol] 4.05 10*6/uL Low 4.21-5.77 [facility] Comment on above: Performed By: #### B MPX, CDP #### [facility] [address] [place] [address] [employer] Sergeant: Collin Augustin MD Abs. Basophil 0.11 k/uL Normal 0.00-0.20 [facility] Comment on above: Performed By: #### B MPX, CDP #### [facility] [address] [place] [address] [employer] Sergeant: Collin Augustin MD Abs.Imm.Granulocyte 0.06 k/uL Normal 0.00-0.30 [facility] Comment on above: Performed By: #### B MPX, CDP #### [facility] [address] [place] [address] [employer] Sergeant: Collin Augustin MD Abs.Neutrophil (Seg) 10.19 k/uL High 1.50-8.10 [facility] Comment on above: Performed By: #### B MPX, CDP #### [address] [address] [employer] Sergeant: Collin Augustin MD Lymphocytes (Bld) [#/Vol] 0.94 10*3/uL Low 1.10-3.70 [facility] Comment on above: Performed By: #### B MPX, CDP #### [address] [address] [employer] Sergeant: Collin Augustin MD Monocytes (Bld) [#/Vol] 0.60 10*3/uL Normal 0.10-1.20 [facility] Comment on above: Performed By: #### B MPX, CDP #### [address] [address] [employer] Sergeant: Collin Augustin MD Neutrophil (Seg) 83 % High 36-65 [facility] Comment on above: Performed By: #### B MPX, CDP #### [address] [address] [employer] Sergeant: Collin Augustin MD NRBC Automated 0.0 per 100 WBC Normal 0.0 [facility] Comment on above: Performed By: #### B MPX, CDP #### [facility] [employer] [address] [place] [id number] [place] [place] Sergeant: Collin Augustin MD RBC morphology finding Nom (Bld) ANISOCYTOSIS PRESENT Normal [facility] Comment on above: Result Comment: MICR OCYTOSIS PRESENT Performed By: #### B MPX, CDP #### [address] [address] [place] [place] Police Sergeant: Collin Augustin MD WBC (Bld) [#/Vol] 12.1 10*3/uL High 3.5-11.3 [facility] Comment on above: Performed By: #### B MPX, CDP #### [address] [place], [place] [phone] [place] Police Sergeant: Collin Augustin MD Creatinine, Random Urineon 0 01-30-2025 Creatinine (U) [Mass/Vol] 26.4 mg/dL Low 39.0 - 259.0 mg/dL [facility] [employer] Comment on above: Reference range defi teddy for 1st morning urine Interpretation and review of laboratory results Abnormal [employer] Creatinine,Random Uron 01-30 Creatinine [Mass/Vol] 26.4 mg/dL Low 39.0-259.0 [facility] Comment on above: Result Comment: Refe rence range defined for 1st morning urine Performed By: #### T ROPI, BMPX #### [address] [place], [place] [phone] [place] Police Sergeant: Collin Augustin MD EKG 12 leadOrdered By: Rohan Christianson on 01-30-2025 Atrial Rate 86 BPM [employer] Phone: P [place] 125 degrees [employer] Phone: P-R Interval 164 ms [employer] Phone: Q-T Interval 370 ms [employer] Phone: QRS Duration 92 ms [employer] Phone: QTc Calculation (Bazett) 442 ms [employer] Phone: R [place] 158 degrees [employer] Phone: T [place] 112 degrees [employer] Phone: Ventricular Rate 86 BPM [employer] Work Phone: [employer] Work Phone: EKG 12 leadon 01-30-2025 Suspect arm lead reversal, interpretation assumes no reversal Unusual P axis, possible ectopic atrial rhythm Left posterior fascicular block Abnormal ECG No previous ECGs available [facility] Autumn James MD - 01/30/2025 Suspect arm lead reversal, interpretation assumes no reversal Unusual P axis, possible ectopic atrial rhythm Left posterior fascicular block Abnormal ECG No previous ECGs available [facility] Free Glasgow + Lambdaon 2024 Free Glasgow Lt Chains 95.7 mg/L High <20.7 [facility] Comment on above: Result Comment: Perf ormed using Diazyme reagent on Hoa Tariq Pro. Results obtained with different assay methods cannot be used interchangeably. Performed By: #### B MPX, CDP, MG #### [address] [place] [address] [place] [place] Police Sergeant: Collin Augustin MD Free Glasgow/Lambda Rat 1.03 Normal 0.22-1.74 [facility] Comment on above: Performed By: #### B MPX, CDP, MG #### [address] [place] [phone] [place] [place] Police Sergeant: Collin Augustin MD Free Lambda Lt Chains 92.6 mg/L High 4.2-27.7 [facility] Comment on above: Result Comment: Perf ormed using Diazyme reagent on Hoa Tariq Pro. Results obtained with different assay methods cannot be used interchangeably. Performed By: #### B MPX, CDP, MG #### [address] [place] [address] [place] [place] Police Sergeant: Collin Augustin MD Hep B Core [facility] 01-30-2025 Hep B Core Ab Non-Reactive Normal NR [facility] Comment on above: Performed By: #### B MPX, CDP, MG #### [address] [place] [address] [phone] [place] [place] Police Sergeant: Collin Augustin MD Hep B Surf Abon 01-30-2025 Hep B Surf Ab <3.50 Normal <10 [facility] Comment on above: Result Comment: REFERENCE RANGE: <10.0 NON-REACTIVE/NOT IMMUNE >=10.0 REACTIVE/IMMUNE Performed By: #### B MPXMARIELOS, MG #### [address] [place] [address] [phone] [place] [place] Police Sergeant: Collin Augustin MD Hep B Surf Agon 01-30-2025 Hep B Surf Ag Non-Reactive Normal NR [facility] Comment on above: Performed By: #### B MPX, MARIELOS, MG #### [address] [place] [address] [phone] [place] [place] Police Sergeant: Collin Augustin MD Hep C Abon 01-30-2025 Hep C Ab Non-Reactive Normal NR [facility] Comment on above: Result Comment: The hepatitis C procedure used [...] HCV RNA by PCR. Performed By: #### B MARIELOS BLANCA, MG #### [address] [place] [address] [phone] [place] [place] Police Sergeant: Collin Augustin MD Hepatitis B core antibody, t otalon 01-30-2025 HBV core Ab Ql (S) Non-Reactive NONREACTIVE [facility] Hepatitis B surface antibody on 01-30-2025 HBV surface Ab IA Qn m[IU]/mL NINF [facility] Comment on above: REFERENCE RANGE: <10.0 NON-REACTIVE/NOT IMMUNE >=10.0 REACTIVE/IMMUNE Hepatitis B surface antigeno n 01-30-2025 HBV surface Ag IA Ql Non-Reactive NONREACTIVE [facility] Hepatitis C Antibodyon 01-30 HCV Ab IA Ql Non-Reactive NONREACTIVE [facility] Comment on above: The hepatitis C procedure used in our [...] recommended by ordering HCV RNA by PCR. Glasgow/Lambda Quantitative Fr ee Light Chains, Serumon 01-30-2025 Free Glasgow/Lambda Ratio 1.03 0.22 - 1.74 [facility] Immunoglobulin light chains.kappa.free (S) [Mass/Vol] 95.7 mg/L High NINF - 20.7 mg/L [facility] Comment on above: Performed using Gu yme reagent on Hoa Tariq Pro. Results obtained with different assay methods cannot be used interchangeably. Immunoglobulin light chains.lambda.free [Mass/Vol] 92.6 mg/L High 4.2 - 27.7 mg/L [facility] Comment on above: Performed using Gu yme reagent on Hoa Tariq Pro. Results obtained with different assay methods cannot be used interchangeably. Interpretation and review of laboratory results Abnormal [facility] MRSA DNA Probe, Nasalon 01-12 MRSA, DNA, Nasal Negative NEGATIVE [facility] Comment on above: NEGATIVE: MRSA DNA n ot detected by nucleic acid amplification. Results should be used as an adjunct to nosocomial control efforts to identify patients needing enhanced precautions. The test is not intended to identify patients with staphylococcal infections. Results should not be used to guide or monitor treatment for MRSA infections. Specimen Description .NASAL SWAB [facility] MRSA, DNA, Nasalon MRSA, DNA, Nasal Negative Normal NEG [facility] Comment on above: Result Comment: NEGA TIVE: MRSA DNA not detected by nucleic acid amplification. Results should be used as an adjunct to nosocomial control efforts to identify patients needing enhanced precautions. The test is not intended to identify patients with staphylococcal infections. Results should not be used to guide or monitor treatment for MRSA infections. Performed By: #### M RSANO #### [facility] [employer] [address] [place], [place] [phone] [place] Police Sergeant: Collin Augustin MD Specimen Description .NASAL SWAB Normal [facility] Comment on above: Performed By: #### M RSANO #### [address] [facility] [place] [address] [place] [place] Police Sergeant: Collin Augustin MD No Panel Informationon 01-30 Interpretation and review of laboratory results Abnormal [facility] Interpretation and review of laboratory results Abnormal [facility] PSA, Diagnosticon 01-30-2025 Interpretation and review of laboratory results Abnormal [facility] Prostate specific Ag [Mass/Vol] 504 ng/mL High 0.00 - 4.00 ng/mL [facility] Comment on above: The Hoa ECLIA as say is used. Results obtained with different assay methods cannot be used interchangeably. [facility] Prostatic Spec. Ag 504.00 ng/mL High 0.00-4.00 [facility] Comment on above: Result Comment: The Hoa ECLIA assay is used. Results obtained with different assay methods cannot be used interchangeably. Performed By: #### B MPX, CDP #### [address] [place] [phone] [place] [place] Police Sergeant: Collin Augustin MD Portable XR Chest AP single viewon 01-30-2025 Right jugular central venous catheter terminates in the right atrium Bandlike opacity left parahilar region suggesting subsegmental atelectasis [facility] CONSOLIDATED EXAMINATION: ONE XRAY VIEW OF THE CHEST 01/30/2025 8:15 am COMPARISON: None. HISTORY: ORDERING SYSTEM PROVIDED HISTORY: right CVC insertion TECHNOLOGIST PROVIDED HISTORY: right CVC insertion FINDINGS: Right jugular central venous catheter terminates in the right atrium. Heart size within normal limits. Bandlike opacity left parahilar region. No pneumothorax. No pleural effusion. [facility] RIS CONSOLIDATED Kaushik Foster MD - 01/30/2025 EXAMINATION: ONE [...] opacity left parahilar region suggesting subsegmental atelectasis [facility] Radiology Study observation (narrative) [facility] Portable XR Chest AP single viewOrdered By: Kaushik Foster on 01-30-2025 [facility] Work Phone: Prot. Electroph, Blon 2024 Protein [Mass/Vol] 7.0 g/dL Normal 6.6-8.7 [facility] Comment on above: Performed By: #### B MPX, CDP, MG #### [address] [place] [phone] [place] [place] Police Sergeant: Collin Augustin MD Sodium, Random Uron 01-31-20 Sodium (U) [Moles/Vol] 112 mmol/L Normal [facility] Comment on above: Result Comment: No n ormal range established. Performed By: #### T MIKE MIKE #### [address] [place] [phone] [place] [place] Police Sergeant: Collin Augustin MD Sodium, urine, randomon 01-12 Sodium (U) [Moles/Vol] 112 mmol/L [facility] Comment on above: No normal range esta blished. Troponinon 01-30-2025 Troponin I.cardiac High sensitivity method [Mass/Vol] 86 ng/L Critically high 0 - 22 ng/L [facility] Comment on above: High Sensitivity Tro ponin values cannot be compared with other Troponin methodologies. Previous Alert Value Reported Troponin, High Sens 86 ng/L Critically high 0-22 [facility] Comment on above: Result Comment: High Sensitivity Troponin values cannot be compared with other Troponin methodologies. Previous Alert Value Reported Performed By: #### T MIKE MIKE #### [address] [place] [address] [phone] [place] [place] Police Sergeant: Collin Augustin MD Interpretation and review of laboratory results Abnormal [facility] Troponin I.cardiac High sensitivity method [Mass/Vol] 53 ng/L Critically high 0 - 22 ng/L [facility] Comment on above: High Sensitivity Tro ponin values cannot be compared with other Troponin methodologies. [facility] Troponin, High Sens 53 ng/L Critically high 0-22 [facility] Comment on above: Result Comment: High Sensitivity Troponin values cannot be compared with other Troponin methodologies. Performed By: #### T RASHID BMPX #### [address] [place] [address] [phone] [place] [place] Police Sergeant: Collin Augustin MD Troponin I.cardiac High sensitivity method [Mass/Vol] 45 ng/L High 0 - 22 ng/L [facility] Comment on above: High Sensitivity Tro ponin values cannot be compared with other Troponin methodologies. Troponin, High Sens 45 ng/L High 0-22 [facility] Comment on above: Result Comment: High Sensitivity Troponin values cannot be compared with other Troponin methodologies. Performed By: #### T RASHID BMPX #### [facility] [address] [place] [phone] [place] [place] Police Sergeant: Collin Augustin MD Kidneyon 01-30-2025 Mild to moderate bilateral hydronephrosis. The kidneys appear otherwise sonographically normal. [facility] CONSOLIDATED EXAMINATION: RETROPERITONEAL ULTRASOUND OF THE KIDNEYS AND [...] There is a Hummel catheter in place. [facility] CONSOLIDATED Rigoberto Dean MD - 01/30/2025 EXAMINATION: RETROPERITONEAL [...] hydronephrosis. The kidneys appear otherwise sonographically normal. [facility] Radiology Study observation (narrative) [facility] US KidneyOrdered By: Rigoberto felipe on 01-30-2025 [facility] Work Phone: US RENAL COMPLETEon 01-31-20 US RENAL COMPLETE EXAMINATION: RETROPERITONEAL ULTRASOUND OF THE KIDNEYS AND [...] by: Rigoberto Dean MD 01/30/25 Final result Normal [facility] XR CHEST PORTABLEon 01-31-20 XR CHEST PORTABLE EXAMINATION: ONE XRAY VIEW OF THE CHEST [...] by: Kaushik Foster MD 01/30/25 Final result Normal [facility] CNPNon 05-04-2023 CNPN Normal [facility] CNCOon 03-25-2023 CNCO Letter Text Normal [facility] CNPNon 03-10-2023 CNPN Normal [facility] CNPNon 03-08-2023 CNPN Normal [facility] CNPNon 03-04-2023 CNPN Normal [facility] CNPNon 03-03-2023 CNPN Normal [facility] CBC with Diffon 02-28-2023 Abs. Basophil 0.10 k/uL Normal 0.0-0.2 [facility] Comment on above: Performed By: #### C REG, LIVP, CDP #### [facility] [address] [place] [address] [address] [place] Police Sergeant: Miller Grande MD Abs.Neutrophil (Seg) 7.40 k/uL High 2.1-6.5 [facility] Comment on above: Performed By: #### C REG, LIVP, CDP #### [facility] [address] [place] [address] [place] [place] Police Sergeant: Miller Grande MD Auto Diff Performed YES Normal [facility] Comment on above: Performed By: #### C REG, LIVP, CDP #### [facility] [address] [place] [address] [place] [place] Police Sergeant: Miller Grande MD Basophils/100 WBC (Bld) 1 % Normal 0-2 [facility] Comment on above: Performed By: #### C REG, LIVP, CDP #### [facility] [address] [place], [place] [phone] [place] Police Sergeant: Miller Grande MD Eosinophils (Bld) [#/Vol] 0.90 10*3/uL High 0.0-0.4 [facility] Comment on above: Performed By: #### C REG, LIVP, CDP #### [facility] [address] [place] [address] [place] [place] Police Sergeant: Miller Grande MD Eosinophils/100 WBC (Bld) 8 % High 0-5 [facility] Comment on above: Performed By: #### C REG, LIVP, CDP #### [facility] [address] [place] [address] [place] [place] Police Sergeant: Miller Grande MD Erythrocyte distribution width (RBC) [Ratio] 16.9 % High 12.1-15.2 [facility] Comment on above: Performed By: #### C REG, LIVP, CDP #### [facility] [address] [place] [address] [place] [place] Police Sergeant: Miller Grande MD Hematocrit (Bld) [Volume fraction] 25.8 % Low 41-53 [facility] Comment on above: Performed By: #### C REG, LIVP, CDP #### [facility] [address] [place] [address] [place] [place] Police Sergeant: Miller Grande MD Hemoglobin (Bld) [Mass/Vol] 8.5 g/dL Low 13.5-17.5 [facility] Comment on above: Performed By: #### C REG, LIVP, CDP #### [facility] [address] [place] [address] [place] [place] Police Sergeant: Miller Grande MD Lymphocytes (Bld) [#/Vol] 1.60 10*3/uL Normal 1.0-4.8 [facility] Comment on above: Performed By: #### C REG, LIVP, CDP #### [facility] [address] [place] [address] [place] [place] Police Sergeant: Miller Grande MD Lymphocytes/100 WBC (Bld) 15 % Normal 13-44 [facility] Comment on above: Performed By: #### C REG, LIVP, CDP #### [facility] [address] [place] [address] [place] [place] Police Sergeant: Miller Grande MD MCH (RBC) [Entitic mass] 26.9 pg Normal 26-34 [facility] Comment on above: Performed By: #### C REG, LIVP, CDP #### [facility] [address] [place], [place] [phone] [place] Police Sergeant: Miller Grande MD MCHC (RBC) [Mass/Vol] 32.8 g/dL Normal 31-37 [facility] Comment on above: Performed By: #### C REG, LIVP, CDP #### [facility] [address] [place] [address] [place] [place] Police Sergeant: Miller Grande MD MCV (RBC) [Entitic vol] 82.0 fL Normal 80-100 [facility] Comment on above: Performed By: #### C REG, LIVP, CDP #### [facility] [address] [place] [address] [place] [place] Police Sergeant: Miller Grande MD Monocytes (Bld) [#/Vol] 0.50 10*3/uL Normal 0.0-1.0 [facility] Comment on above: Performed By: #### C REG, LIVP, CDP #### [facility] [address] [place] [address] [employer] [place] Police Sergeant: Miller Grande MD Monocytes/100 WBC (Bld) 5 % Normal 5-9 [facility] Comment on above: Performed By: #### C REG, LIVP, CDP #### [facility] [address] [place] [address] [place] [place] Police Sergeant: Miller Grande MD Neutrophil (Seg) 71 % Normal 39-75 [facility] Comment on above: Performed By: #### C REG, LIVP, CDP #### [facility] [address] [place] [address] [employer] [place] Police Sergeant: Miller Grande MD Platelets (Bld) [#/Vol] 380 10*3/uL Normal 140-450 [facility] Comment on above: Performed By: #### C REG, LIVP, CDP #### [facility] [address] [place], [place] [phone] [place] Police Sergeant: Miller Grande MD RBC (Bld) [#/Vol] 3.15 10*6/uL Low 4.5-5.9 [facility] Comment on above: Performed By: #### C REG, LIVP, CDP #### [facility] [address] [place], [place] [phone] [place] Police Sergeant: Miller Grande MD WBC (Bld) [#/Vol] 10.5 10*3/uL Normal 3.5-11.0 [facility] Comment on above: Performed By: #### C REG, LIVP, CDP #### [facility] [address] [place] [address] [employer] [place] Police Sergeant: Miller Grande MD Creatinine w/GFRon 3 Creatinine [Mass/Vol] 0.70 mg/dL Normal 0.70-1.20 [facility] Comment on above: Performed By: #### C REG, LIVP, CDP #### [facility] [address] [place] [address] [employer] [place] Police Sergeant: Miller Grande MD GFR/1.73 sq M.predicted among non-blacks MDRD (S/P/Bld) [Vol rate/Area] mL/min/{1.73_m2} Normal >60 [facility] Comment on above: Result Comment: These results are not intended [...] following therapy that affects renal tubular secretion. Performed By: #### C REG, LIVP, CDP #### [facility] [address] [place] [address] [employer] [place] Police Sergeant: Miller Grande MD Liver Profileon 02-28-2023 Albumin [Mass/Vol] 3.5 g/dL Normal 3.5-5.2 [facility] Comment on above: Performed By: #### C REG, LIVP, CDP #### [facility] [address] [place] [address] [employer] Police Sergeant: Miller Grande MD Alkaline Phos 89 U/L Normal 40-129 [facility] Comment on above: Performed By: #### C REG, LIVP, CDP #### [facility] [address] [place] [address] [employer] [place] Police Sergeant: Miller Grande MD ALT [Catalytic activity/Vol] 27 U/L Normal 5-41 [facility] Comment on above: Performed By: #### C REG, LIVP, CDP #### [facility] [address] [place] [address] [employer] [place] Police Sergeant: Miller Grande MD AST [Catalytic activity/Vol] 22 U/L Normal <40 [facility] Comment on above: Performed By: #### C REG, LIVP, CDP #### [facility] [address] [place] [address] [employer] [place] Police Sergeant: Miller Grande MD Bilirubin [Mass/Vol] 0.1 mg/dL Low 0.3-1.2 [facility] Comment on above: Performed By: #### C REG, LIVP, CDP #### [facility] [address] [place] [address] [employer] Police Sergeant: Miller Grande MD Bilirubin, Indirect Can not be calculated Normal 0.0-1.0 [facility] Comment on above: Performed By: #### C REG, LIVP, CDP #### [facility] [address] [place], [place] [phone] [place] Police Sergeant: Miller Grande MD Bilirubin.indirect [Mass/Vol] mg/dL Normal <0.3 [facility] Comment on above: Performed By: #### C CHIDI FERGUSON, CDP #### [facility] [address] [place], [place] [phone] [employer] [employer] Police Sergeant: Miller Grande MD Protein [Mass/Vol] 6.9 g/dL Normal 6.4-8.3 [facility] Comment on above: Performed By: #### C PHYLLIS LIVP, CDP #### [facility] [address] [place], [place] [phone] [employer] Police Sergeant: Miller Grande MD CNPNon 02-24-2023 CNPN Normal [facility] CBC with Auto Differentialon 02-22-2023 Absolute Eos # 0.40 [facility]HEL [facility] Absolute Lymph # 1.20 [facility] Absolute Boyle # 0.50 [facility] Basophils (Bld) [#/Vol] 0.10 10*3/uL [facility] Basophils/100 WBC (Bld) 2 % 0 - 2 % [facility] Eosinophils/100 WBC (Bld) 4 % 0 - 5 % [facility] Hematocrit (Bld) [Volume fraction] 24.3 % Low 41 - 53 % [facility] Hemoglobin (Bld) [Mass/Vol] 7.9 g/dL Critically low 13.5 - 17.5 g/dL [facility] Interpretation and review of laboratory results Abnormal [facility] Lymphocytes/100 WBC (Bld) 13 % 13 - 44 % [facility] MCH (RBC) [Entitic mass] 27.0 pg 26 - 34 pg [facility] MCHC (RBC) [Mass/Vol] 32.7 g/dL 31 - 37 g/dL [facility] MCV (RBC) [Entitic vol] 82.7 fL 80 - 100 fL [facility] Monocytes/100 WBC (Bld) 6 % 5 - 9 % [facility] Platelet distribution width (Bld) [Ratio] 16.0 % High 12.1 - 15.2 % [facility] Platelets (Bld) [#/Vol] 362 10*3/uL [facility] RBC (Bld) [#/Vol] 2.94 10*6/uL Low 4.5 - 5.9 m/uL [facility] Segmented neutrophils/100 WBC (Bld) 75 % 39 - 75 % [facility] Segs Absolute 7.10 High [facility] WBC (Bld) [#/Vol] 9.2 10*3/uL [facility] CBC with Diffon 02-22-2023 Abs. Basophil 0.10 k/uL Normal 0.0-0.2 [facility] Comment on above: Performed By: #### L IVP, CDP, CREG #### [facility] [address] [place] [address] [employer] [employer] Sergeant: Miller Grande MD Abs.Neutrophil (Seg) 7.10 k/uL High 2.1-6.5 [facility] Comment on above: Performed By: #### L IVP, CDP, CREG #### [facility] [address] [place] [address] [employer] [employer] Police Sergeant: Miller Grande MD Basophils/100 WBC (Bld) 2 % Normal 0-2 [facility] Comment on above: Performed By: #### L IVP, CDP, CREG #### [facility] [address] [place] [address] [employer] [employer] Police Sergeant: Miller Grande MD Eosinophils (Bld) [#/Vol] 0.40 10*3/uL Normal 0.0-0.4 [facility] Comment on above: Performed By: #### L IVP, CDP, CREG #### [facility] [address] [place] [address] [employer] [employer] Police Sergeant: Miller Grande MD Eosinophils/100 WBC (Bld) 4 % Normal 0-5 [facility] Comment on above: Performed By: #### L IVP, CDP, CREG #### [facility] [address] [place] [address] [employer] [employer] Police Sergeant: Miller Grande MD Erythrocyte distribution width (RBC) [Ratio] 16.0 % High 12.1-15.2 [facility] Comment on above: Performed By: #### L IVP, CDP, CREG #### [facility] [address] [place] [phone] [employer] Police Sergeant: Miller Grande MD Hematocrit (Bld) [Volume fraction] 24.3 % Low 41-53 [facility] Comment on above: Performed By: #### L IVP, CDP, CREG #### [facility] [address] [place] [phone] [employer] Police Sergeant: Miller Grande MD Hemoglobin (Bld) [Mass/Vol] 7.9 g/dL Critically low 13.5-17.5 [facility] Comment on above: Performed By: #### L IVP, CDP, CREG #### [facility] [address] [place] [address] [employer] [employer] Police Sergeant: Miller Grande MD Lymphocytes (Bld) [#/Vol] 1.20 10*3/uL Normal 1.0-4.8 [facility] Comment on above: Performed By: #### L IVP, CDP, CREG #### [facility] [address] [place] [phone] [employer] Sergeant: Miller Grande MD Lymphocytes/100 WBC (Bld) 13 % Normal 13-44 [facility] Comment on above: Performed By: #### L IVP, CDP, CREG #### [facility] [address] [place] [address] [employer] [place] [employer]: Miller Grande MD MCH (RBC) [Entitic mass] 27.0 pg Normal 26-34 [facility] Comment on above: Performed By: #### L IVP, CDP, CREG #### [facility] [address] [place] [address] [place] [place] [employer]: Miller Grande MD MCHC (RBC) [Mass/Vol] 32.7 g/dL Normal 31-37 [facility] Comment on above: Performed By: #### L IVP, CDP, CREG #### [facility] [address] [place] [id number] [employer]: Miller Grande MD MCV (RBC) [Entitic vol] 82.7 fL Normal 80-100 [facility] Comment on above: Performed By: #### L IVP, CDP, CREG #### [facility] [address] [place] [address] [employer] [employer]: Miller Grande MD Monocytes (Bld) [#/Vol] 0.50 10*3/uL Normal 0.0-1.0 [facility] Comment on above: Performed By: #### L IVP, CDP, CREG #### [facility] [address] [place] [address] [employer] [employer]: Miller Grande MD Monocytes/100 WBC (Bld) 6 % Normal 5-9 [facility] Comment on above: Performed By: #### L IVP, CDP, CREG #### [facility] [address] [place] [address] [employer] [place] [employer]: Miller Grande MD Neutrophil (Seg) 75 % Normal 39-75 [facility] Comment on above: Performed By: #### L IVP, CDP, CREG #### [facility] [address] [place] [address] [employer] [employer] Sergeant: Miller Grande MD Platelets (Bld) [#/Vol] 362 10*3/uL Normal 140-450 [facility] Comment on above: Performed By: #### L IVP, CDP, CREG #### [facility] [address] [place] [address] [employer] [employer]: Miller Grande MD RBC (Bld) [#/Vol] 2.94 10*6/uL Low 4.5-5.9 [facility] Comment on above: Performed By: #### L IVP, CDP, CREG #### [facility] [address] [place] [address] [employer] [place] [employer]: Miller Grande MD WBC (Bld) [#/Vol] 9.2 10*3/uL Normal 3.5-11.0 [facility] Comment on above: Performed By: #### L IVMARIELOS Chambers, CREG #### [facility] [address] [facility] [place] [address] [employer] [place] [employer] Sergeant: Miller Grande MD CNPNon 02-22-2023 CNPN Normal [facility] Creatinineon 02-22-2023 Creatinine [Mass/Vol] 0.94 mg/dL 0.70 - 1.20 mg/dL [facility] GFR/1.73 sq M.predicted MDRD (S/P/Bld) [Vol rate/Area] - [facility] Comment on above: These results are not intended for use [...] following therapy that affects renal tubular secretion. Creatinine w/GFRon Creatinine [Mass/Vol] 0.94 mg/dL Normal 0.70-1.20 [facility] Comment on above: Performed By: #### L IVP, CDP, CREG #### [facility] [address] [place] [address] [employer] [employer] Sergeant: Miller Grande MD GFR/1.73 sq M.predicted among non-blacks MDRD (S/P/Bld) [Vol rate/Area] mL/min/{1.73_m2} Normal >60 [facility] Comment on above: Result Comment: These results are not intended [...] following therapy that affects renal tubular secretion. Performed By: #### L IVP, MARIELOS, CREG #### [facility] [address] [place] [address] [address] [employer]: Miller Grande MD Hepatic Function Panelon Albumin [Mass/Vol] 3 g/dL Low 3.5 - 5.2 g/dL [facility] ALP [Catalytic activity/Vol] 101 U/L 40 - 129 U/L [facility] ALT [Catalytic activity/Vol] 20 U/L 5 - 41 U/L [facility] AST [Catalytic activity/Vol] 18 U/L NINF - 40 U/L [facility] Bilirubin [Mass/Vol] 0.2 mg/dL Low 0.3 - 1 .2 mg/dL [facility] Bilirubin.direct [Mass/Vol] mg/dL NINF - 0.3 mg/dL [facility] Bilirubin.indirect [Mass/Vol] Can not be calculated 0.0 - 1.0 mg/dL [facility] Interpretation and review of laboratory results Abnormal [facility] Protein [Mass/Vol] 6.6 g/dL 6.4 - 8.3 g/dL [facility] Liver Profileon 02-22-2023 Albumin [Mass/Vol] 3.0 g/dL Low 3.5-5.2 [facility] Comment on above: Performed By: #### L IVP, CDP, CREG #### [facility] [address] [place] [address] [employer] [place] [employer]: Miller Grande MD Alkaline Phos 101 U/L Normal 40-129 [facility] Comment on above: Performed By: #### L IVP, CDP, CREG #### [facility] [address] [place], [place] [id number] [employer] Sergeant: Miller Grande MD ALT [Catalytic activity/Vol] 20 U/L Normal 5-41 [facility] Comment on above: Performed By: #### L IVP, CDP, CREG #### [facility] [address] [place], [place] [id number] [employer] Sergeant: Milelr Grande MD AST [Catalytic activity/Vol] 18 U/L Normal <40 [facility] Comment on above: Performed By: #### L IVP, CDP, CREG #### [facility] [address] [place], [place] [address] [employer]: Miller Grande MD Bilirubin [Mass/Vol] 0.2 mg/dL Low 0.3-1.2 [facility] Comment on above: Performed By: #### L IVP, CDP, CREG #### [facility] [address] [place], [place] [id number] [employer] Sergeant: Miller Grande MD Bilirubin, Indirect Can not be calculated Normal 0.0-1.0 [facility] Comment on above: Performed By: #### L IVP, CDP, CREG #### [facility] [address] [place], [place] [address] [employer] Sergeant: Miller Grande MD Bilirubin.indirect [Mass/Vol] mg/dL Normal <0.3 [facility] Comment on above: Performed By: #### L IVP, CDP, CREG #### [facility] [address] [place], [place] [id number] [employer] Sergeant: Miller Grande MD Protein [Mass/Vol] 6.6 g/dL Normal 6.4-8.3 [facility] Comment on above: Performed By: #### L IVP, CDP, CREG #### [facility] [address] [place] [address] [employer] [place] [employer] Sergeant: Miller Grande MD No Panel Informationon 02-22 [place] [facility] CNDSon 02-17-2023 CNDS Normal [facility] CNPNon 02-17-2023 CNPN Normal [facility] CASE MANAGEMon 02-16-2023 CASE MANAGEM Normal [facility] CBC W Auto Differential pane l (Bld)on 02-16-2023 Basophils (Bld) [#/Vol] 0.13 10*3/uL High <0.11 [facility] Comment on above: Order Comment: Speci men Type: BLOOD SPECIMENOrdering Facility: [facility] Address: [address] [place] [address] Performed By: #### 5 7021-8 ####[facility] LABCLIA [id number] [place] [address] [place] Basophils/100 WBC (Bld) 1.3 % Normal [facility] Comment on above: Order Comment: Speci men Type: BLOOD SPECIMENOrdering Facility: [facility] Address: [address] [place] [address] Performed By: #### 5 7021-8 ####[facility] LABCLIA [id number] [place] [address] [place] Differential cell count method Nom (Bld) Auto Normal [facility] Comment on above: Order Comment: Speci men Type: BLOOD SPECIMENOrdering Facility: [facility] Address: [address] [place] [address] Performed By: #### 5 7021-8 ####[facility] LABCLIA [id number] [place] [address] [place] Eosinophils (Bld) [#/Vol] 0.62 10*3/uL High <0.46 [facility] Comment on above: Order Comment: Speci men Type: BLOOD SPECIMENOrdering Facility: [facility] Address: [address] Performed By: #### 5 7021-8 ####[facility] LABCLIA [id number] [place] [address] [place] Eosinophils/100 WBC (Bld) 6.1 % Normal [facility] Comment on above: Order Comment: Speci men Type: BLOOD SPECIMENOrdering Facility: [facility] Address: [address] Performed By: #### 5 7021-8 ####[facility] LABCLIA [id number] [place] [address] [place] Erythrocyte distribution width (RBC) [Ratio] 15.5 % High 11.5-15.0 [facility] Comment on above: Order Comment: Speci men Type: BLOOD SPECIMENOrdering Facility: [facility] Address: [address] Performed By: #### 5 7021-8 ####[facility] LABCLIA [id number] [place] [address] [place] Hematocrit (Bld) [Volume fraction] 26.1 % Low 39.0-51.0 [facility] Comment on above: Order Comment: Speci men Type: BLOOD SPECIMENOrdering Facility: [facility] Address: [address] [place], [place] [address] Performed By: #### 5 7021-8 ####[facility] LABCLIA [id number] [place] [address] [place] Hemoglobin (Bld) [Mass/Vol] 8.1 g/dL Low 13.0-17.0 [facility] Comment on above: Order Comment: Speci men Type: BLOOD SPECIMENOrdering Facility: [facility] Address: [address] Performed By: #### 5 7021-8 ####[facility] LABCLIA [id number] [place] [address] [place] Immature granulocytes (Bld) [#/Vol] 0.07 10*3/uL Normal <0.10 [facility] Comment on above: Order Comment: Speci men Type: BLOOD SPECIMENOrdering Facility: [facility] Address: [address] [place] [address] Performed By: #### 5 7021-8 ####[facility] LABCLIA [id number] [address] [place] Immature granulocytes/100 WBC (Bld) 0.7 % Normal [facility] Comment on above: Order Comment: Speci men Type: BLOOD SPECIMENOrdering Facility: [facility] Address: [address] [place] [address] Performed By: #### 5 7021-8 ####[facility] LABIA [id number] [place] [address] [place] Lymphocytes (Bld) [#/Vol] 1.09 10*3/uL Normal 1.00-4.00 [facility] Comment on above: Order Comment: Speci men Type: BLOOD SPECIMENOrdering Facility: [facility] Address: [address] [place] [address] Performed By: #### 5 7021-8 ####[facility] LABCLIA [id number] [place] [address] [place] Lymphocytes/100 WBC (Bld) 10.8 % Normal [facility] Comment on above: Order Comment: Speci men Type: BLOOD SPECIMENOrdering Facility: [facility] Address: [address] [place], [place] [address] Performed By: #### 5 7021-8 ####[facility] LABCLIA [id number] [place] [address] [place] MCH (RBC) [Entitic mass] 26.9 pg Normal 26.0-34.0 [facility] Comment on above: Order Comment: Speci men Type: BLOOD SPECIMENOrdering Facility: [facility] Address: [address] Performed By: #### 5 7021-8 ####[facility] LABCLIA [id number] [place] [address] [place] MCHC (RBC) [Mass/Vol] 31.0 g/dL Normal 30.5-36.0 [facility] Comment on above: Order Comment: Speci men Type: BLOOD SPECIMENOrdering Facility: [facility] Address: [address] [place] [address] Performed By: #### 5 7021-8 ####[facility] LABIA [id number] [place] [address] [place] MCV (RBC) [Entitic vol] 86.7 fL Normal 80.0-100.0 [facility] Comment on above: Order Comment: Speci men Type: BLOOD SPECIMENOrdering Facility: [facility] Address: [address] [place], [place] [address] Performed By: #### 5 7021-8 ####[facility] LABIA [id number] [place] [address] [place] Monocytes (Bld) [#/Vol] 0.69 10*3/uL Normal <0.87 [facility] Comment on above: Order Comment: Speci men Type: BLOOD SPECIMENOrdering Facility: [facility] Address: [address] [place], [place] [address] Performed By: #### 5 7021-8 ####[facility] LABCLIA [id number] [address] [place] Monocytes/100 WBC (Bld) 6.8 % Normal [facility] Comment on above: Order Comment: Speci men Type: BLOOD SPECIMENOrdering Facility: [facility] Address: [address] [place], [place] [address] Performed By: #### 5 7021-8 ####[facility] LABCLIA [id number] [place] [address] [place] Neutrophils (Bld) [#/Vol] 7.52 10*3/uL High 1.45-7.50 [facility] Comment on above: Order Comment: Speci men Type: BLOOD SPECIMENOrdering Facility: [facility] Address: [address] [place] [address] Performed By: #### 5 7021-8 ####[facility] LABCLIA [id number] [place] [address] [place] Neutrophils/100 WBC (Bld) 74.3 % Normal [facility] Comment on above: Order Comment: Speci men Type: BLOOD SPECIMENOrdering Facility: [facility] Address: [address] [place] [address] Performed By: #### 5 7021-8 ####[facility] LABIA [id number] [place] [address] [place] Nucleated RBC (Bld) [#/Vol] 10*3/uL Normal <0.01 [facility] Comment on above: Order Comment: Speci men Type: BLOOD SPECIMENOrdering Facility: [facility] Address: [address] [place], [place] [address] Performed By: #### 5 7021-8 ####[facility] LABIA [id number] [place] [address] [place] Nucleated RBC/100 WBC (Bld) [Ratio] 0.0 /100 WBC Normal [facility] Comment on above: Order Comment: Speci men Type: BLOOD SPECIMENOrdering Facility: [facility] Address: [address] [place], [place] [address] Performed By: #### 5 7021-8 ####[facility] LABIA [id number] [place] [address] [place] Platelet mean volume (Bld) [Entitic vol] 9.5 fL Normal 9.0-12.7 [facility] Comment on above: Order Comment: Speci men Type: BLOOD SPECIMENOrdering Facility: [facility] Address: [address] [place] [address] Performed By: #### 5 7021-8 ####[facility] LABCLIA [id number] [place] [address] [place] Platelets (Bld) [#/Vol] 423 10*3/uL High 150-400 [facility] Comment on above: Order Comment: Speci men Type: BLOOD SPECIMENOrdering Facility: [facility] Address: [address] Performed By: #### 5 7021-8 ####[facility] LABCLIA [id number] [place] [address] [place] RBC (Bld) [#/Vol] 3.01 10*6/uL Low 4.20-6.00 [facility] Comment on above: Order Comment: Speci men Type: BLOOD SPECIMENOrdering Facility: [facility] Address: [address] [place] [address] Performed By: #### 5 7021-8 ####[facility] LABCLIA [id number] [place] [address] [place] WBC (Bld) [#/Vol] 10.12 10*3/uL Normal 3.70-11.00 [facility] Comment on above: Order Comment: Speci men Type: BLOOD SPECIMENOrdering Facility: [facility] Address: [address] [place] [address] Performed By: #### 5 7021-8 ####[facility] LABCLIA [id number] [place] [address] [place] CNPNon 02-16-2023 CNPN Normal [facility] CONSULT PROGon 02-16-2023 CONSULT PROG Normal [facility] CASE MANAGEMon 02-15-2023 CASE MANAGEM Normal [facility] CBC W Auto Differential pane l (Bld)on 02-15-2023 Basophils (Bld) [#/Vol] 0.12 10*3/uL High <0.11 [facility] Comment on above: Order Comment: Speci men Type: BLOOD SPECIMENOrdering Facility: [facility] Address: [address] [place] [address] Performed By: #### 5 7021-8 ####[facility] LABCLIA [id number] [place] [address] [place] Basophils/100 WBC (Bld) 1.4 % Normal [facility] Comment on above: Order Comment: Speci men Type: BLOOD SPECIMENOrdering Facility: [facility] Address: [address] [place] [address] Performed By: #### 5 7021-8 ####[facility] LABCLIA [id number] [place] [address] [place] Differential cell count method Nom (Bld) Auto Normal [facility] Comment on above: Order Comment: Speci men Type: BLOOD SPECIMENOrdering Facility: [facility] Address: [address] [place] [address] Performed By: #### 5 7021-8 ####[facility] LABCLIA [id number] [place] [address] [place] Eosinophils (Bld) [#/Vol] 0.55 10*3/uL High <0.46 [facility] Comment on above: Order Comment: Speci men Type: BLOOD SPECIMENOrdering Facility: [facility] Address: [address] [place] [address] Performed By: #### 5 7021-8 ####[facility] LABCLIA [id number] [place] [address] [place] Eosinophils/100 WBC (Bld) 6.3 % Normal [facility] Comment on above: Order Comment: Speci men Type: BLOOD SPECIMENOrdering Facility: [facility] Address: [address] [place] [address] Performed By: #### 5 7021-8 ####[facility] LABIA [id number] [place] [address] [place] Erythrocyte distribution width (RBC) [Ratio] 15.5 % High 11.5-15.0 [facility] Comment on above: Order Comment: Speci men Type: BLOOD SPECIMENOrdering Facility: [facility] Address: [address] [place] [address] Performed By: #### 5 7021-8 ####[facility] LABIA [id number] [place] [address] [place] Hematocrit (Bld) [Volume fraction] 25.5 % Low 39.0-51.0 [facility] Comment on above: Order Comment: Speci men Type: BLOOD SPECIMENOrdering Facility: [facility] Address: [address] [place], [place] [address] Performed By: #### 5 7021-8 ####[facility] LABIA [id number] [place] [address] [place] Hemoglobin (Bld) [Mass/Vol] 8.0 g/dL Low 13.0-17.0 [facility] Comment on above: Order Comment: Speci men Type: BLOOD SPECIMENOrdering Facility: [facility] Address: [address] [place], [place] [address] Performed By: #### 5 7021-8 ####[facility] LABIA [id number] [place] [address] [place] Immature granulocytes (Bld) [#/Vol] 0.08 10*3/uL Normal <0.10 [facility] Comment on above: Order Comment: Speci men Type: BLOOD SPECIMENOrdering Facility: [facility] Address: [address] [place], [place] [address] Performed By: #### 5 7021-8 ####[facility] LABCLIA [id number] [place] [address] [place] Immature granulocytes/100 WBC (Bld) 0.9 % Normal [facility] Comment on above: Order Comment: Speci men Type: BLOOD SPECIMENOrdering Facility: [facility] Address: [address] [place] [address] Performed By: #### 5 7021-8 ####[facility] LABIA [id number] [place] [address] [place] Lymphocytes (Bld) [#/Vol] 1.45 10*3/uL Normal 1.00-4.00 [facility] Comment on above: Order Comment: Speci men Type: BLOOD SPECIMENOrdering Facility: [facility] Address: [address] [place] [address] Performed By: #### 5 7021-8 ####[facility] LABIA [id number] [address] [place] [facility] Lymphocytes/100 WBC (Bld) 16.5 % Normal [facility] Comment on above: Order Comment: Speci men Type: BLOOD SPECIMENOrdering Facility: [facility] Address: [address] [place], [place] [address] Performed By: #### 5 7021-8 ####[facility] LABIA [id number] [place] [address] [place] MCH (RBC) [Entitic mass] 27.0 pg Normal 26.0-34.0 [facility] Comment on above: Order Comment: Speci men Type: BLOOD SPECIMENOrdering Facility: [facility] Address: [address] [place] [address] Performed By: #### 5 7021-8 ####[facility] LABIA [id number] [place] [address] [place] MCHC (RBC) [Mass/Vol] 31.4 g/dL Normal 30.5-36.0 [facility] Comment on above: Order Comment: Speci men Type: BLOOD SPECIMENOrdering Facility: [facility] Address: [address] [place], [place] [address] Performed By: #### 5 7021-8 ####[facility] LABCLIA [id number] [place] [address] [place] MCV (RBC) [Entitic vol] 86.1 fL Normal 80.0-100.0 [facility] Comment on above: Order Comment: Speci men Type: BLOOD SPECIMENOrdering Facility: [facility] Address: [address] [place], [place] [address] Performed By: #### 5 7021-8 ####[facility] LABIA [id number] [place] [address] [place] Monocytes (Bld) [#/Vol] 0.66 10*3/uL Normal <0.87 [facility] Comment on above: Order Comment: Speci men Type: BLOOD SPECIMENOrdering Facility: [facility] Address: [address] [place], [place] [address] Performed By: #### 5 7021-8 ####[facility] LABIA [id number] [place] [address] [place] Monocytes/100 WBC (Bld) 7.5 % Normal [facility] Comment on above: Order Comment: Speci men Type: BLOOD SPECIMENOrdering Facility: [facility] Address: [address] [place], [place] [address] Performed By: #### 5 7021-8 ####[facility] LABIA [id number] [place] [address] [place] Neutrophils (Bld) [#/Vol] 5.92 10*3/uL Normal 1.45-7.50 [facility] Comment on above: Order Comment: Speci men Type: BLOOD SPECIMENOrdering Facility: [facility] Address: [address] [place] [address], [place] [address] Performed By: #### 5 7021-8 ####[facility] LABCLIA [id number] [place] [address] [place] Neutrophils/100 WBC (Bld) 67.4 % Normal [facility] Comment on above: Order Comment: Speci men Type: BLOOD SPECIMENOrdering Facility: [facility] Address: [address] Performed By: #### 5 7021-8 ####[facility] LABCLIA [id number] [place] [address] [place] Nucleated RBC (Bld) [#/Vol] 10*3/uL Normal <0.01 [facility] Comment on above: Order Comment: Speci men Type: BLOOD SPECIMENOrdering Facility: [facility] Address: [address] Performed By: #### 5 7021-8 ####[facility] LABIA [id number] [place] [address] [place] Nucleated RBC/100 WBC (Bld) [Ratio] 0.0 /100 WBC Normal [facility] Comment on above: Order Comment: Speci men Type: BLOOD SPECIMENOrdering Facility: [facility] Address: [address] [place] [address] Performed By: #### 5 7021-8 ####[facility] LABIA [id number] [place] [address] [place] Platelet mean volume (Bld) [Entitic vol] 9.6 fL Normal 9.0-12.7 [facility] Comment on above: Order Comment: Speci men Type: BLOOD SPECIMENOrdering Facility: [facility] Address: [address] [place] [address] Performed By: #### 5 7021-8 ####[facility] LABIA [id number] [place] [address] [place] Platelets (Bld) [#/Vol] 447 10*3/uL High 150-400 [facility] Comment on above: Order Comment: Speci men Type: BLOOD SPECIMENOrdering Facility: [facility] Address: [address] [address] [place], [place] [address] Performed By: #### 5 7021-8 ####[facility] LABCLIA [id number] [place] [address] [place] RBC (Bld) [#/Vol] 2.96 10*6/uL Low 4.20-6.00 [facility] Comment on above: Order Comment: Speci men Type: BLOOD SPECIMENOrdering Facility: [facility] Address: [address] [place] [address] Performed By: #### 5 7021-8 ####[facility] LABCLIA [id number] [place] [address] [place] WBC (Bld) [#/Vol] 8.78 10*3/uL Normal 3.70-11.00 [facility] Comment on above: Order Comment: Speci men Type: BLOOD SPECIMENOrdering Facility: [facility] Address: [address] [place], [place] [address] Performed By: #### 5 7021-8 ####[facility] LABIA [id number] [place] [address] [place] THERAPY NTon 02-15-2023 THERAPY NT Normal [facility] CBC W Auto Differential pane l (Bld)on 02-14-2023 Basophils (Bld) [#/Vol] 0.15 10*3/uL High <0.11 [facility] Comment on above: Order Comment: Speci men Type: BLOOD SPECIMENOrdering Facility: [facility] Address: [address] [place], [place] [address] Performed By: #### 5 7021-8 ####[facility] LABCLIA [id number] [address] [place] Basophils/100 WBC (Bld) 1.8 % Normal [facility] Comment on above: Order Comment: Speci men Type: BLOOD SPECIMENOrdering Facility: [facility] Address: [address] [place] [address] Performed By: #### 5 7021-8 ####[facility] LABCLIA [id number] [place] [address] [place] Differential cell count method Nom (Bld) Auto Normal [facility] Comment on above: Order Comment: Speci men Type: BLOOD SPECIMENOrdering Facility: [facility] Address: [address] [place] [address] Performed By: #### 5 7021-8 ####[facility] LABCLIA [id number] [place] [address] [place] Eosinophils (Bld) [#/Vol] 0.49 10*3/uL High <0.46 [facility] Comment on above: Order Comment: Speci men Type: BLOOD SPECIMENOrdering Facility: [facility] Address: [address] [place], [place] [address] Performed By: #### 5 7021-8 ####[facility] LABCLIA [id number] [address] [place] Eosinophils/100 WBC (Bld) 5.8 % Normal [facility] Comment on above: Order Comment: Speci men Type: BLOOD SPECIMENOrdering Facility: [facility] Address: [address] [place], [place] [address] Performed By: #### 5 7021-8 ####[facility] LABCLIA [id number] [place] [address] [place] Erythrocyte distribution width (RBC) [Ratio] 15.6 % High 11.5-15.0 [facility] Comment on above: Order Comment: Speci men Type: BLOOD SPECIMENOrdering Facility: [facility] Address: [address] Performed By: #### 5 7021-8 ####[facility] LABIA [id number] [place] [address] [place] Hematocrit (Bld) [Volume fraction] 27.2 % Low 39.0-51.0 [facility] Comment on above: Order Comment: Speci men Type: BLOOD SPECIMENOrdering Facility: [facility] Address: [address] Performed By: #### 5 7021-8 ####[facility] LABIA [id number] [place] [address] [place] Hemoglobin (Bld) [Mass/Vol] 8.4 g/dL Low 13.0-17.0 [facility] Comment on above: Order Comment: Speci men Type: BLOOD SPECIMENOrdering Facility: [facility] Address: [address] Performed By: #### 5 7021-8 ####[facility] LABIA [id number] [place] [address] [place] Immature granulocytes (Bld) [#/Vol] 0.07 10*3/uL Normal <0.10 [facility] Comment on above: Order Comment: Speci men Type: BLOOD SPECIMENOrdering Facility: [facility] Address: [address] Performed By: #### 5 7021-8 ####[facility] LABIA [id number] [address] [place] Immature granulocytes/100 WBC (Bld) 0.8 % Normal [facility] Comment on above: Order Comment: Speci men Type: BLOOD SPECIMENOrdering Facility: [facility] Address: [address] Performed By: #### 5 7021-8 ####[facility] LABIA [id number] [place] [address] [place] Lymphocytes (Bld) [#/Vol] 1.54 10*3/uL Normal 1.00-4.00 [facility] Comment on above: Order Comment: Speci men Type: BLOOD SPECIMENOrdering Facility: [facility] Address: [address] [place] [address] Performed By: #### 5 7021-8 ####[facility] LABCLIA [id number] [address] [place] Lymphocytes/100 WBC (Bld) 18.3 % Normal [facility] Comment on above: Order Comment: Speci men Type: BLOOD SPECIMENOrdering Facility: [facility] Address: [address] [place] [address] Performed By: #### 5 7021-8 ####[facility] LABIA [id number] [address] [place] MCH (RBC) [Entitic mass] 26.8 pg Normal 26.0-34.0 [facility] Comment on above: Order Comment: Speci men Type: BLOOD SPECIMENOrdering Facility: [facility] Address: [address] [place], [place] [address] Performed By: #### 5 7021-8 ####[facility] LABIA [id number] [place] [address] [place] MCHC (RBC) [Mass/Vol] 30.9 g/dL Normal 30.5-36.0 [facility] Comment on above: Order Comment: Speci men Type: BLOOD SPECIMENOrdering Facility: [facility] Address: [address] [place], [place] [address] Performed By: #### 5 7021-8 ####[facility] LABCLIA [id number] [place] [address] [place] MCV (RBC) [Entitic vol] 86.6 fL Normal 80.0-100.0 [facility] Comment on above: Order Comment: Speci men Type: BLOOD SPECIMENOrdering Facility: [facility] Address: [address] Performed By: #### 5 7021-8 ####[facility] LABCLIA [id number] [place] [address] [place] Monocytes (Bld) [#/Vol] 0.75 10*3/uL Normal <0.87 [facility] Comment on above: Order Comment: Speci men Type: BLOOD SPECIMENOrdering Facility: [facility] Address: [address] Performed By: #### 5 7021-8 ####[facility] LABCLIA [id number] [place] [address] [place] Monocytes/100 WBC (Bld) 8.9 % Normal [facility] Comment on above: Order Comment: Speci men Type: BLOOD SPECIMENOrdering Facility: [facility] Address: [address] Performed By: #### 5 7021-8 ####[facility] LABCLIA [id number] [place] [address] [place] Neutrophils (Bld) [#/Vol] 5.43 10*3/uL Normal 1.45-7.50 [facility] Comment on above: Order Comment: Speci men Type: BLOOD SPECIMENOrdering Facility: [facility] Address: [address] [place] [address] Performed By: #### 5 7021-8 ####[facility] LABCLIA [id number] [place] [address] [place] Neutrophils/100 WBC (Bld) 64.4 % Normal [facility] Comment on above: Order Comment: Speci men Type: BLOOD SPECIMENOrdering Facility: [facility] Address: [address] Performed By: #### 5 7021-8 ####[facility] LABCLIA [id number] [place] [address] [place] Nucleated RBC (Bld) [#/Vol] 10*3/uL Normal <0.01 [facility] Comment on above: Order Comment: Speci men Type: BLOOD SPECIMENOrdering Facility: [facility] Address: [address] [place], [place] [address] Performed By: #### 5 7021-8 ####[facility] LABIA [id number] [place] [address] [place] Nucleated RBC/100 WBC (Bld) [Ratio] 0.0 /100 WBC Normal [facility] Comment on above: Order Comment: Speci men Type: BLOOD SPECIMENOrdering Facility: [facility] Address: [address] [place], [place] [address] Performed By: #### 5 7021-8 ####[facility] LABIA [id number] [place] [address] [place] Platelet mean volume (Bld) [Entitic vol] 9.4 fL Normal 9.0-12.7 [facility] Comment on above: Order Comment: Speci men Type: BLOOD SPECIMENOrdering Facility: [facility] Address: [address] [place] [address] Performed By: #### 5 7021-8 ####[facility] LABIA [id number] [place] [address] [place] Platelets (Bld) [#/Vol] 478 10*3/uL High 150-400 [facility] Comment on above: Order Comment: Speci men Type: BLOOD SPECIMENOrdering Facility: [facility] Address: [address] [place] [address] Performed By: #### 5 7021-8 ####[facility] LABIA [id number] [place] [address] [place] RBC (Bld) [#/Vol] 3.14 10*6/uL Low 4.20-6.00 [facility] Comment on above: Order Comment: Speci men Type: BLOOD SPECIMENOrdering Facility: [facility] Address: [address] [place], [place] [address] Performed By: #### 5 7021-8 ####[facility] LABCLIA [id number] [place] [address] [place] WBC (Bld) [#/Vol] 8.43 10*3/uL Normal 3.70-11.00 [facility] Comment on above: Order Comment: Speci men Type: BLOOD SPECIMENOrdering Facility: [facility] Address: [address] [place] [address] Performed By: #### 5 7021-8 ####[facility] LABCLIA [id number] [place] [address] [place] CONSULT PROGon 02-14-2023 CONSULT PROG Normal [facility] TYPE + SCREENon 02-14-2023 ABO A Normal [facility] Comment on above: Order Comment: Speci men Type: BLOOD SPECIMENOrdering Facility: [facility] Address: [address] [place] [address] Performed By: #### T SCR ####[facility] BLOOD BANKCLIA [id number] [place] [address] [place] HISTORICAL AB SCR STATUS Negative Normal [facility] Comment on above: Order Comment: Speci men Type: BLOOD SPECIMENOrdering Facility: [facility] Address: [address] [place], [place] [address] Performed By: #### T SCR ####[facility] BLOOD BANKCLIA [id number] [place] [address] [place] Rh Nom (Bld) Positive Normal [facility] Comment on above: Order Comment: Speci men Type: BLOOD SPECIMENOrdering Facility: [facility] Address: [address] [place], [place] [address] Performed By: #### T SCR ####[facility] BLOOD BANKCLIA [id number] [address] OF [facility] TYPE AND SCREEN EXPIRATION 02/17/2023 23:59 Normal [facility] Comment on above: Order Comment: Speci men Type: BLOOD SPECIMENOrdering Facility: [facility] Address: [address] [place] [address] Performed By: #### T SCR ####[facility] BLOOD BANKIA [id number] [address] [place] CBC W Auto Differential pane l (Bld)on 02-13-2023 Basophils (Bld) [#/Vol] 0.14 10*3/uL High <0.11 [facility] Comment on above: Order Comment: Speci men Type: BLOOD SPECIMENOrdering Facility: [facility] Address: [address] [place] [address] Performed By: #### 5 7021-8 ####[facility] LABCLIA [id number] [address] [place] Basophils/100 WBC (Bld) 1.8 % Normal [facility] Comment on above: Order Comment: Speci men Type: BLOOD SPECIMENOrdering Facility: [facility] Address: [address] [place] [address] Performed By: #### 5 7021-8 ####[facility] LABCLIA [id number] [address] [place] Differential cell count method Nom (Bld) Auto Normal [facility] Comment on above: Order Comment: Speci men Type: BLOOD SPECIMENOrdering Facility: [facility] Address: [address] [place] [address] Performed By: #### 5 7021-8 ####[facility] LABCLIA [id number] [place] [address] [place] Eosinophils (Bld) [#/Vol] 0.43 10*3/uL Normal <0.46 [facility] Comment on above: Order Comment: Speci men Type: BLOOD SPECIMENOrdering Facility: [facility] Address: [address] [place] [address] Performed By: #### 5 7021-8 ####[facility] LABIA [id number] [address] STATES OF [facility] Eosinophils/100 WBC (Bld) 5.6 % Normal [facility] Comment on above: Order Comment: Speci men Type: BLOOD SPECIMENOrdering Facility: [facility] Address: [address] [place] [address] Performed By: #### 5 7021-8 ####[facility] LABIA [id number] [place] [address] [place] Erythrocyte distribution width (RBC) [Ratio] 15.5 % High 11.5-15.0 [facility] Comment on above: Order Comment: Speci men Type: BLOOD SPECIMENOrdering Facility: [facility] Address: [address] [place], [place] [address] Performed By: #### 5 7021-8 ####[facility] LABIA [id number] [address] [place] Hematocrit (Bld) [Volume fraction] 26.0 % Low 39.0-51.0 [facility] Comment on above: Order Comment: Speci men Type: BLOOD SPECIMENOrdering Facility: [facility] Address: [address] Performed By: #### 5 7021-8 ####[facility] LABIA [id number] [place] [address] [place] Hemoglobin (Bld) [Mass/Vol] 8.2 g/dL Low 13.0-17.0 [facility] Comment on above: Order Comment: Speci men Type: BLOOD SPECIMENOrdering Facility: [facility] Address: [address] [place], [place] [address] Performed By: #### 5 7021-8 ####[facility] LABCLIA [id number] [place] [address] [place] Immature granulocytes (Bld) [#/Vol] 0.06 10*3/uL Normal <0.10 [facility] Comment on above: Order Comment: Speci men Type: BLOOD SPECIMENOrdering Facility: [facility] Address: [address] [place], [place] [address] Performed By: #### 5 7021-8 ####[facility] LABCLIA [id number] [address] [place] Immature granulocytes/100 WBC (Bld) 0.8 % Normal [facility] Comment on above: Order Comment: Speci men Type: BLOOD SPECIMENOrdering Facility: [facility] Address: [address] [place], [place] [address] Performed By: #### 5 7021-8 ####[facility] LABCLIA [id number] [place] [address] [place] Lymphocytes (Bld) [#/Vol] 1.99 10*3/uL Normal 1.00-4.00 [facility] Comment on above: Order Comment: Speci men Type: BLOOD SPECIMENOrdering Facility: [facility] Address: [address] [place], [place] [address] Performed By: #### 5 7021-8 ####[facility] LABCLIA [id number] [place] [address] [place] Lymphocytes/100 WBC (Bld) 26.0 % Normal [facility] Comment on above: Order Comment: Speci men Type: BLOOD SPECIMENOrdering Facility: [facility] Address: [address] [place], [place] [address] Performed By: #### 5 7021-8 ####[facility] LABCLIA [id number] [place] [address] MCH (RBC) [Entitic mass] 27.2 pg Normal 26.0-34.0 [facility] Comment on above: Order Comment: Speci men Type: BLOOD SPECIMENOrdering Facility: [facility] Address: [address] [place] [address] Performed By: #### 5 7021-8 ####[facility] LABCLIA [id number] [address] STATES OF [facility] MCHC (RBC) [Mass/Vol] 31.5 g/dL Normal 30.5-36.0 [facility] Comment on above: Order Comment: Speci men Type: BLOOD SPECIMENOrdering Facility: [facility] Address: [address] [place] [address] Performed By: #### 5 7021-8 ####[facility] LABCLIA [id number] [address] [place] MCV (RBC) [Entitic vol] 86.1 fL Normal 80.0-100.0 [facility] Comment on above: Order Comment: Speci men Type: BLOOD SPECIMENOrdering Facility: [facility] Address: [address] [place] [address] Performed By: #### 5 7021-8 ####[facility] LABCLIA [id number] [place] [address] [place] Monocytes (Bld) [#/Vol] 0.57 10*3/uL Normal <0.87 [facility] Comment on above: Order Comment: Speci men Type: BLOOD SPECIMENOrdering Facility: [facility] Address: [address] [place] [address] Performed By: #### 5 7021-8 ####[facility] LABCLIA [id number] [address] [place] Monocytes/100 WBC (Bld) 7.5 % Normal [facility] Comment on above: Order Comment: Speci men Type: BLOOD SPECIMENOrdering Facility: [facility] Address: [address] Performed By: #### 5 7021-8 ####[facility] LABCLIA [id number] [place] [address] [place] Neutrophils (Bld) [#/Vol] 4.45 10*3/uL Normal 1.45-7.50 [facility] Comment on above: Order Comment: Speci men Type: BLOOD SPECIMENOrdering Facility: [facility] Address: [address] Performed By: #### 5 7021-8 ####[facility] LABCLIA [id number] [place] [address] [place] Neutrophils/100 WBC (Bld) 58.3 % Normal [facility] Comment on above: Order Comment: Speci men Type: BLOOD SPECIMENOrdering Facility: [facility] Address: [address] Performed By: #### 5 7021-8 ####[facility] LABCLIA [id number] [place] [address] [place] Nucleated RBC (Bld) [#/Vol] 10*3/uL Normal <0.01 [facility] Comment on above: Order Comment: Speci men Type: BLOOD SPECIMENOrdering Facility: [facility] Address: [address] Performed By: #### 5 7021-8 ####[facility] LABCLIA [id number] [place] [address] [place] Nucleated RBC/100 WBC (Bld) [Ratio] 0.0 /100 WBC Normal [facility] Comment on above: Order Comment: Speci men Type: BLOOD SPECIMENOrdering Facility: [facility] Address: [address] Performed By: #### 5 7021-8 ####[facility] LABCLIA [id number] [place] [address] [place] Platelet mean volume (Bld) [Entitic vol] 9.3 fL Normal 9.0-12.7 [facility] Comment on above: Order Comment: Speci men Type: BLOOD SPECIMENOrdering Facility: [facility] Address: [address] [place], [place] [address] Performed By: #### 5 7021-8 ####[facility] LABCLIA [id number] [place] [address] [place] Platelets (Bld) [#/Vol] 509 10*3/uL High 150-400 [facility] Comment on above: Order Comment: Speci men Type: BLOOD SPECIMENOrdering Facility: [facility] Address: [address] [place], [place] [address] Performed By: #### 5 7021-8 ####[facility] LABIA [id number] [place] [address] [place] RBC (Bld) [#/Vol] 3.02 10*6/uL Low 4.20-6.00 [facility] Comment on above: Order Comment: Speci men Type: BLOOD SPECIMENOrdering Facility: [facility] Address: [address] [place], [place] [address] Performed By: #### 5 7021-8 ####[facility] LABIA [id number] [place] [address] [place] WBC (Bld) [#/Vol] 7.64 10*3/uL Normal 3.70-11.00 [facility] Comment on above: Order Comment: Speci men Type: BLOOD SPECIMENOrdering Facility: [facility] Address: [address] [place], [place] [address] Performed By: #### 5 7021-8 ####[facility] LABIA [id number] [place] [address] [place] CONSULT PROGon 04-02-2023 CONSULT PROG Normal [facility] Comprehensive metabolic 2000 panelon 02-13-2023 Albumin [Mass/Vol] 3.2 g/dL Low 3.9-4.9 [facility] Comment on above: Order Comment: Speci men Type: BLOOD SPECIMENOrdering Facility: [facility] Address: [address] [place] [address] Performed By: #### 2 4323-8 ####[facility] LABCLIA [id number] [place] [address] [place] ALP [Catalytic activity/Vol] 128 U/L High 38-113 [facility] Comment on above: Order Comment: Speci men Type: BLOOD SPECIMENOrdering Facility: [facility] Address: [address] [place] [address] Performed By: #### 2 4323-8 ####[facility] LABCLIA [id number] [address] [place] ALT [Catalytic activity/Vol] 68 U/L High 10-54 [facility] Comment on above: Order Comment: Speci men Type: BLOOD SPECIMENOrdering Facility: [facility] Address: [address] [place] [address] Performed By: #### 2 4323-8 ####[facility] LABCLIA [id number] [place] [address] [place] Anion gap [Moles/Vol] 12 mmol/L Normal 9-18 [facility] Comment on above: Order Comment: Speci men Type: BLOOD SPECIMENOrdering Facility: [facility] Address: [address] [place] [address] Performed By: #### 2 4323-8 ####[facility] LABCLIA [id number] [place] [address] [place] AST [Catalytic activity/Vol] 23 U/L Normal 14-40 [facility] Comment on above: Order Comment: Speci men Type: BLOOD SPECIMENOrdering Facility: [facility] Address: [address] Performed By: #### 2 4323-8 ####[facility] LABCLIA [id number] [place] [address] [place] Bilirubin [Mass/Vol] mg/dL Low 0.2-1.3 [facility] Comment on above: Order Comment: Speci men Type: BLOOD SPECIMENOrdering Facility: [facility] Address: [address] Performed By: #### 2 4323-8 ####[facility] LABCLIA [id number] [place] [address] [place] Calcium [Mass/Vol] 9.0 mg/dL Normal 8.5-10.2 [facility] Comment on above: Order Comment: Speci men Type: BLOOD SPECIMENOrdering Facility: [facility] Address: [address] Performed By: #### 2 4323-8 ####[facility] LABCLIA [id number] [place] [address] [place] Chloride [Moles/Vol] 102 mmol/L Normal 97-105 [facility] Comment on above: Order Comment: Speci men Type: BLOOD SPECIMENOrdering Facility: [facility] Address: [address] Performed By: #### 2 4323-8 ####[facility] LABCLIA [id number] [place] [address] [place] CO2 [Moles/Vol] 25 mmol/L Normal 22-30 [facility] Comment on above: Order Comment: Speci men Type: BLOOD SPECIMENOrdering Facility: [facility] Address: [address] Performed By: #### 2 4323-8 ####[facility] LABCLIA [id number] [address] STATES [place] [facility] Creatinine [Mass/Vol] 1.09 mg/dL Normal 0.73-1.22 [facility] Comment on above: Order Comment: Alden padilla Type: BLOOD SPECIMENOrdering Facility: [facility] Address: [address] [address] Performed By: #### 2 4323-8 ####[facility] LABIA [id number] [address] ESTIMATED GLOMERULAR FILTRATION RATE 78 mL/min/1.73m??? Normal >=60 [facility] Comment on above: Order Comment: Alden padilal Type: BLOOD SPECIMENOrdering Facility: [facility] Address: [address] [place] [address] Result Comment: Veronica mated Glomerular Filtration Rate (eGFR) is calculated using the 2020 CKD-EPI creatinine equation. This equation utilizes serum creatinine, sex, and age as parameters. The creatinine assay has traceable calibration to isotope dilution-mass spectrometry. Refer to KDIGO guidelines for clinical interpretation. In patients with unstable renal function, e.g. those with acute kidney injury, the eGFR may not accurately reflect actual GFR. Performed By: #### 2 4323-8 ####[facility] LABIA [id number] [address] [place] Glucose [Mass/Vol] 134 mg/dL High 74-99 [facility] Comment on above: Order Comment: Alden padilla Type: BLOOD SPECIMENOrdering Facility: [facility] Address: [address] [place] [address] Result Comment: The [place] [employer] (ADA) provides guidance for cutoff values for fasting glucose and random glucose. The ADA defines fasting as no caloric intake for at least 8 hours. Fasting plasma glucose results between 100 to 125 mg/dL indicate increased risk for diabetes (prediabetes).Fasting plasma glucose results greater than or equal to 126 mg/dL meet the criteria for diagnosis of diabetes. In the absence of unequivocal hyperglycemia, results should be confirmed by repeat testing. In a patient with classic symptoms of hyperglycemia or hyperglycemic crisis, random plasma glucose results greater than or equal to 200 mg/dL meet the criteria for diagnosis of diabetes.Reference: Standards of Medical Care in Diabetes 2016, [place] [employer]. Diabetes Care. 2016.39(Suppl 1). Performed By: #### 2 4323-8 ####[facility] LABCLIA [id number] [place] [address] [place] Potassium [Moles/Vol] 4.3 mmol/L Normal 3.7-5.1 [facility] Comment on above: Order Comment: Speci men Type: BLOOD SPECIMENOrdering Facility: [facility] Address: [address] [address] Performed By: #### 2 432-8 ####[facility] LABIA [id number] [place] [address] [place] Protein [Mass/Vol] 6.7 g/dL Normal 6.3-8.0 [facility] Comment on above: Order Comment: Speci men Type: BLOOD SPECIMENOrdering Facility: [facility] Address: [address] Performed By: #### 2 432-8 ####[facility] LABIA [id number] [place] [address] [place] Sodium [Moles/Vol] 139 mmol/L Normal 136-144 [facility] Comment on above: Order Comment: Speci men Type: BLOOD SPECIMENOrdering Facility: [facility] Address: [address] Performed By: #### 2 4323-8 ####[facility] LABCLIA [id number] [place] [address] [place] Urea nitrogen [Mass/Vol] 22 mg/dL Normal 9-24 [facility] Comment on above: Order Comment: Speci men Type: BLOOD SPECIMENOrdering Facility: [facility] Address: [address] Performed By: #### 2 4323-8 ####[facility] LABCLIA [id number] [place] [address] [place] CBC W Auto Differential pane l (Bld)on 02-12-2023 Basophils (Bld) [#/Vol] 0.05 10*3/uL Normal <0.11 [facility] Comment on above: Order Comment: Speci men Type: BLOOD SPECIMENOrdering Facility: [facility] Address: [address] [place] [address] Performed By: #### 5 7021-8 ####[facility] LABCLIA [id number] [place] [address] [place] Basophils/100 WBC (Bld) 0.6 % Normal [facility] Comment on above: Order Comment: Speci men Type: BLOOD SPECIMENOrdering Facility: [facility] Address: [address] [place] [address] Performed By: #### 5 7021-8 ####[facility] LABCLIA [id number] [place] [address] [place] Differential cell count method Nom (Bld) Auto Normal [facility] Comment on above: Order Comment: Speci men Type: BLOOD SPECIMENOrdering Facility: [facility] Address: [address] [place] [address] Performed By: #### 5 7021-8 ####[facility] LABCLIA [id number] [place] [address] [place] Eosinophils (Bld) [#/Vol] 10*3/uL Normal <0.46 [facility] Comment on above: Order Comment: Speci men Type: BLOOD SPECIMENOrdering Facility: [facility] Address: [address] [place] [address] Performed By: #### 5 7021-8 ####[facility] LABCLIA [id number] [place] [address] [place] Eosinophils/100 WBC (Bld) 0.1 % Normal [facility] Comment on above: Order Comment: Speci men Type: BLOOD SPECIMENOrdering Facility: [facility] Address: [address] [place] [address] Performed By: #### 5 7021-8 ####[facility] LABIA [id number] [place] [address] [place] Erythrocyte distribution width (RBC) [Ratio] 15.4 % High 11.5-15.0 [facility] Comment on above: Order Comment: Speci men Type: BLOOD SPECIMENOrdering Facility: [facility] Address: [address] [place] [address] Performed By: #### 5 7021-8 ####[facility] LABIA [id number] [place] [address] [place] Hematocrit (Bld) [Volume fraction] 25.8 % Low 39.0-51.0 [facility] Comment on above: Order Comment: Speci men Type: BLOOD SPECIMENOrdering Facility: [facility] Address: [address] [place] [address] Performed By: #### 5 7021-8 ####[facility] LABIA [id number] [address] [place] Hemoglobin (Bld) [Mass/Vol] 8.1 g/dL Low 13.0-17.0 [facility] Comment on above: Order Comment: Speci men Type: BLOOD SPECIMENOrdering Facility: [facility] Address: [address] [place], [place] [address] Performed By: #### 5 7021-8 ####[facility] LABIA [id number] [place] [address] [place] Immature granulocytes (Bld) [#/Vol] 0.07 10*3/uL Normal <0.10 [facility] Comment on above: Order Comment: Speci men Type: BLOOD SPECIMENOrdering Facility: [facility] Address: [address] Performed By: #### 5 7021-8 ####[facility] LABIA [id number] [address] Immature granulocytes/100 WBC (Bld) 0.8 % Normal [facility] Comment on above: Order Comment: Speci men Type: BLOOD SPECIMENOrdering Facility: [facility] Address: [address] [address] Performed By: #### 5 7021-8 ####[facility] LABIA [id number] [place] [address] [place] Lymphocytes (Bld) [#/Vol] 0.68 10*3/uL Low 1.00-4.00 [facility] Comment on above: Order Comment: Speci men Type: BLOOD SPECIMENOrdering Facility: [facility] Address: [address] [address] Performed By: #### 5 7021-8 ####[facility] LABIA [id number] [address] Lymphocytes/100 WBC (Bld) 8.2 % Normal [facility] Comment on above: Order Comment: Speci men Type: BLOOD SPECIMENOrdering Facility: [facility] Address: [address] Performed By: #### 5 7021-8 ####[facility] LABIA [id number] [place] [address] [place] MCH (RBC) [Entitic mass] 26.9 pg Normal 26.0-34.0 [facility] Comment on above: Order Comment: Speci men Type: BLOOD SPECIMENOrdering Facility: [facility] Address: [address] [address] Performed By: #### 5 7021-8 ####[facility] LABIA [id number] [address] [place] [facility] MCHC (RBC) [Mass/Vol] 31.4 g/dL Normal 30.5-36.0 [facility] Comment on above: Order Comment: Speci men Type: BLOOD SPECIMENOrdering Facility: [facility] Address: [address] [place] [address] Performed By: #### 5 7021-8 ####[facility] LABIA [id number] [address] [place] MCV (RBC) [Entitic vol] 85.7 fL Normal 80.0-100.0 [facility] Comment on above: Order Comment: Speci men Type: BLOOD SPECIMENOrdering Facility: [facility] Address: [address] [place] [address] Performed By: #### 5 7021-8 ####[facility] LABIA [id number] [place] [address] [place] Monocytes (Bld) [#/Vol] 0.19 10*3/uL Normal <0.87 [facility] Comment on above: Order Comment: Speci men Type: BLOOD SPECIMENOrdering Facility: [facility] Address: [address] [place] [address] Performed By: #### 5 7021-8 ####[facility] LABIA [id number] [address] [place] Monocytes/100 WBC (Bld) 2.3 % Normal [facility] Comment on above: Order Comment: Speci men Type: BLOOD SPECIMENOrdering Facility: [facility] Address: [address] [place], [place] [address] Performed By: #### 5 7021-8 ####[facility] LABCLIA [id number] [place] [address] [place] Neutrophils (Bld) [#/Vol] 7.27 10*3/uL Normal 1.45-7.50 [facility] Comment on above: Order Comment: Speci men Type: BLOOD SPECIMENOrdering Facility: [facility] Address: [address] Performed By: #### 5 7021-8 ####[facility] LABCLIA [id number] [address] Neutrophils/100 WBC (Bld) 88.0 % Normal [facility] Comment on above: Order Comment: Speci men Type: BLOOD SPECIMENOrdering Facility: [facility] Address: [address] Performed By: #### 5 7021-8 ####[facility] LABIA [id number] [place] [address] [place] Nucleated RBC (Bld) [#/Vol] 10*3/uL Normal <0.01 [facility] Comment on above: Order Comment: Speci men Type: BLOOD SPECIMENOrdering Facility: [facility] Address: [address] [place], [place] [address] Performed By: #### 5 7021-8 ####[facility] LABIA [id number] [place] [address] [place] Nucleated RBC/100 WBC (Bld) [Ratio] 0.0 /100 WBC Normal [facility] Comment on above: Order Comment: Speci men Type: BLOOD SPECIMENOrdering Facility: [facility] Address: [address] [place] [address] Performed By: #### 5 7021-8 ####[facility] LABIA [id number] [place] [address] [place] Platelet mean volume (Bld) [Entitic vol] 9.5 fL Normal 9.0-12.7 [facility] Comment on above: Order Comment: Speci men Type: BLOOD SPECIMENOrdering Facility: [facility] Address: [address] Performed By: #### 5 7021-8 ####[facility] LABIA [id number] [place] [address] [place] Platelets (Bld) [#/Vol] 518 10*3/uL High 150-400 [facility] Comment on above: Order Comment: Speci men Type: BLOOD SPECIMENOrdering Facility: [facility] Address: [address] [place] [address] Performed By: #### 5 7021-8 ####[facility] [id number] [place] [address] [place] RBC (Bld) [#/Vol] 3.01 10*6/uL Low 4.20-6.00 [facility] Comment on above: Order Comment: Speci men Type: BLOOD SPECIMENOrdering Facility: [facility] Address: [address] [place] [address] Performed By: #### 5 7021-8 ####[facility] [id number] [place] [address] [place] WBC (Bld) [#/Vol] 8.27 10*3/uL Normal 3.70-11.00 [facility] Comment on above: Order Comment: Speci men Type: BLOOD SPECIMENOrdering Facility: [facility] Address: [address] [place] [address] Performed By: #### 5 7021-8 ####[facility] [id number] [place] [address] [place] CONSULT PROGon 02-12-2023 CONSULT PROG Normal [facility] ANES POSTPROC EVALon 023 ANES POSTPROC EVAL Normal [facility] ANES PRE-OPon 02-11-2023 ANES PRE-OP Normal [facility] BRIEF OP NOTon 02-11-2023 BRIEF OP NOT Normal [facility] Basic metabolic 2000 panelon 02-11-2023 Anion gap [Moles/Vol] 12 mmol/L Normal 9-18 [facility] Comment on above: Order Comment: Speci men Type: BLOOD SPECIMENOrdering Facility: [facility] Address: [address] Performed By: #### 2 4321-2 ####[facility] LABCLIA [id number] [place] [address] [place] Calcium [Mass/Vol] 8.7 mg/dL Normal 8.5-10.2 [facility] Comment on above: Order Comment: Speci men Type: BLOOD SPECIMENOrdering Facility: [facility] Address: [address] Performed By: #### 2 4321-2 ####[facility] LABCLIA [id number] [place] [address] [place] Chloride [Moles/Vol] 100 mmol/L Normal 97-105 [facility] Comment on above: Order Comment: Speci men Type: BLOOD SPECIMENOrdering Facility: [facility] Address: [address] Performed By: #### 2 4321-2 ####[facility] LABCLIA [id number] [place] [address] [place] CO2 [Moles/Vol] 26 mmol/L Normal 22-30 [facility] Comment on above: Order Comment: Speci men Type: BLOOD SPECIMENOrdering Facility: [facility] Address: [address] Performed By: #### 2 4321-2 ####[facility] LABCLIA [id number] [place] [address] [place] Creatinine [Mass/Vol] 0.93 mg/dL Normal 0.73-1.22 [facility] Comment on above: Order Comment: Speci men Type: BLOOD SPECIMENOrdering Facility: [facility] Address: [address] Performed By: #### 2 4321-2 ####[facility] LABCLIA [id number] [place] [address] [place] ESTIMATED GLOMERULAR FILTRATION RATE 95 mL/min/1.73m??? Normal >=60 [facility] Comment on above: Order Comment: Alden padilla Type: BLOOD SPECIMENOrdering Facility: [facility] Address: [address] [address] Result Comment: Veronica mated Glomerular Filtration Rate (eGFR) is calculated using the 2020 CKD-EPI creatinine equation. This equation utilizes serum creatinine, sex, and age as parameters. The creatinine assay has traceable calibration to isotope dilution-mass spectrometry. Refer to KDIGO guidelines for clinical interpretation. In patients with unstable renal function, e.g. those with acute kidney injury, the eGFR may not accurately reflect actual GFR. Performed By: #### 2 4321-2 ####[facility] LABIA [id number] [place] [address] [place] Glucose [Mass/Vol] 128 mg/dL High 74-99 [facility] Comment on above: Order Comment: Alden padilla Type: BLOOD SPECIMENOrdering Facility: [facility] Address: [address] [place] [address] Result Comment: The [place] [employer] (ADA) provides guidance for cutoff values for fasting glucose and random glucose. The ADA defines fasting as no caloric intake for at least 8 hours. Fasting plasma glucose results between 100 to 125 mg/dL indicate increased risk for diabetes (prediabetes).Fasting plasma glucose results greater than or equal to 126 mg/dL meet the criteria for diagnosis of diabetes. In the absence of unequivocal hyperglycemia, results should be confirmed by repeat testing. In a patient with classic symptoms of hyperglycemia or hyperglycemic crisis, random plasma glucose results greater than or equal to 200 mg/dL meet the criteria for diagnosis of diabetes.Reference: Standards of Medical Care in Diabetes 2016, [place] [employer]. Diabetes Care. 2016.39(Suppl 1). Performed By: #### 2 4321-2 ####[facility] LABIA [id number] [place] [address] [place] Potassium [Moles/Vol] 5.2 mmol/L High 3.7-5.1 [facility] Comment on above: Order Comment: Speci men Type: BLOOD SPECIMENOrdering Facility: [facility] Address: [address] Performed By: #### 2 4321-2 ####[facility] LABCLIA [id number] [place] [address] [place] Sodium [Moles/Vol] 138 mmol/L Normal 136-144 [facility] Comment on above: Order Comment: Speci men Type: BLOOD SPECIMENOrdering Facility: [facility] Address: [address] [place], [place] [address] Performed By: #### 2 4321-2 ####[facility] LABCLIA [id number] [place] [address] [place] Urea nitrogen [Mass/Vol] 21 mg/dL Normal 9-24 [facility] Comment on above: Order Comment: Speci men Type: BLOOD SPECIMENOrdering Facility: [facility] Address: [address] [place], [place] [address] Performed By: #### 2 4321-2 ####[facility] LABCLIA [id number] [place] [address] [place] CASE MANAGEMon 02-11-2023 CASE MANAGEM Normal [facility] CBC panel Auto (Bld)on 02-11 Erythrocyte distribution width (RBC) [Ratio] 15.5 % High 11.5-15.0 [facility] Comment on above: Order Comment: Speci men Type: BLOOD SPECIMENOrdering Facility: [facility] Address: [address] [place], [place] [address] Performed By: #### 5 8410-2 ####[facility] LABCLIA [id number] [place] [address] [place] Hematocrit (Bld) [Volume fraction] 26.6 % Low 39.0-51.0 [facility] Comment on above: Order Comment: Speci men Type: BLOOD SPECIMENOrdering Facility: [facility] Address: [address] Performed By: #### 5 8410-2 ####[facility] LABCLIA [id number] [place] [address] [place] Hemoglobin (Bld) [Mass/Vol] 8.3 g/dL Low 13.0-17.0 [facility] Comment on above: Order Comment: Speci men Type: BLOOD SPECIMENOrdering Facility: [facility] Address: [address] [place] [address] Performed By: #### 5 8410-2 ####[facility] LABCLIA [id number] [place] [address] [place] MCH (RBC) [Entitic mass] 26.8 pg Normal 26.0-34.0 [facility] Comment on above: Order Comment: Speci men Type: BLOOD SPECIMENOrdering Facility: [facility] Address: [address] [place], [place] [address] Performed By: #### 5 8410-2 ####[facility] LABIA [id number] [place] [address] [place] MCHC (RBC) [Mass/Vol] 31.2 g/dL Normal 30.5-36.0 [facility] Comment on above: Order Comment: Speci men Type: BLOOD SPECIMENOrdering Facility: [facility] Address: [address] Performed By: #### 5 8410-2 ####[facility] LABIA [id number] [place] [address] [place] MCV (RBC) [Entitic vol] 85.8 fL Normal 80.0-100.0 [facility] Comment on above: Order Comment: Speci men Type: BLOOD SPECIMENOrdering Facility: [facility] Address: [address] [place], [place] [address] Performed By: #### 5 8410-2 ####[facility] LABCLIA [id number] [place] [address] [place] Nucleated RBC (Bld) [#/Vol] 10*3/uL Normal <0.01 [facility] Comment on above: Order Comment: Speci men Type: BLOOD SPECIMENOrdering Facility: [facility] Address: [address] Performed By: #### 5 8410-2 ####[facility] LABIA [id number] [place] [address] [place] Platelet mean volume (Bld) [Entitic vol] 9.9 fL Normal 9.0-12.7 [facility] Comment on above: Order Comment: Speci men Type: BLOOD SPECIMENOrdering Facility: [facility] Address: [address] Performed By: #### 5 8410-2 ####[facility] LABIA [id number] [place] [address] [place] Platelets (Bld) [#/Vol] 553 10*3/uL High 150-400 [facility] Comment on above: Order Comment: Speci men Type: BLOOD SPECIMENOrdering Facility: [facility] Address: [address] [place] [address] Performed By: #### 5 8410-2 ####[facility] LABCLIA [id number] [place] [address] [place] RBC (Bld) [#/Vol] 3.10 10*6/uL Low 4.20-6.00 [facility] Comment on above: Order Comment: Speci men Type: BLOOD SPECIMENOrdering Facility: [facility] Address: [address] Performed By: #### 5 8410-2 ####[facility] LABCLIA [id number] [place] [address] [place] WBC (Bld) [#/Vol] 9.69 10*3/uL Normal 3.70-11.00 [facility] Comment on above: Order Comment: Speci men Type: BLOOD SPECIMENOrdering Facility: [facility] Address: [address] [place] [address] Performed By: #### 5 8410-2 ####[facility] [id number] [place] [address] [place] CONSULT PROGon 02-11-2023 CONSULT PROG Normal [facility] Gas and Carbon monoxide pane l (BldV)on 02-11-2023 Base excess Calc (BldV) [Moles/Vol] 2 mmol/L Normal 0-2 [facility] Comment on above: Order Comment: Speci men Type: VENOUS BLOOD SPECIMENOrdering Facility: [facility] Address: [address] [place] [address] Performed By: #### 2 4344-4 ####[facility] [id number] [address] Calcium.ionized (Bld) [Mass/Vol] 1.20 mmol/L Normal 1.08-1.30 [facility] Comment on above: Order Comment: Speci men Type: VENOUS BLOOD SPECIMENOrdering Facility: [facility] Address: [address] [place], [place] [address] Performed By: #### 2 4344-4 ####[facility] [id number] [place] [address] [place] Calcium.ionized adjusted to pH 7.4 (BldA) [Moles/Vol] 1.16 mmol/L Normal 1.08-1.30 [facility] Comment on above: Order Comment: Speci men Type: VENOUS BLOOD SPECIMENOrdering Facility: [facility] Address: [address] [place], [place] [address] Performed By: #### 2 4344-4 ####[facility] LABCLIA [id number] [place] [address] [place] Carboxyhemoglobin (BldV) [Mass fraction] 1.4 % Normal 0.0-2.0 [facility] [facility] Comment on above: Order Comment: Speci men Type: VENOUS BLOOD SPECIMENOrdering Facility: [facility] Address: [address] [place] [address] Result Comment: Carb oxyhemoglobin Reference Range for Smokers: 2.0-8.0% Performed By: #### 2 4344-4 ####[facility] LABCLIA [id number] [place] [address] [place] CO2 (BldV) [Partial pressure] 52 mm[Hg] Normal 42-55 [facility] Comment on above: Order Comment: Speci men Type: VENOUS BLOOD SPECIMENOrdering Facility: [facility] Address: [address] [address] Performed By: #### 2 4344-4 ####[facility] LABIA [id number] [place] [address] [place] CO2 [Moles/Vol] 29 mmol/L Normal 25-29 [facility] Comment on above: Order Comment: Speci men Type: VENOUS BLOOD SPECIMENOrdering Facility: [facility] Address: [address] Performed By: #### 2 4344-4 ####[facility] LABCLIA [id number] [place] [address] [place] CO2 adjusted to patient's actual temperature (BldV) [Partial pressure] 52 mmHg Normal 42-55 [facility] Comment on above: Order Comment: Speci men Type: VENOUS BLOOD SPECIMENOrdering Facility: [facility] Address: [address] [address] Performed By: #### 2 4344-4 ####[facility] LABCLIA [id number] [place] [address] [place] Glucose [Mass/Vol] 104 mg/dL Normal 60-105 [facility] Comment on above: Order Comment: Speci men Type: VENOUS BLOOD SPECIMENOrdering Facility: [facility] Address: [address] [place] [address] Performed By: #### 2 4344-4 ####[facility] LABCLIA [id number] [place] [address] [place] HCO3 (Bld) [Moles/Vol] 28 mmol/L Normal 24-28 [facility] Comment on above: Order Comment: Speci men Type: VENOUS BLOOD SPECIMENOrdering Facility: [facility] Address: [address] [place] [address] Performed By: #### 2 4344-4 ####[facility] LABCLIA [id number] [place] [address] [place] Hematocrit (Bld) [Volume fraction] 26.3 % Low 39.0-51.0 [facility] Comment on above: Order Comment: Speci men Type: VENOUS BLOOD SPECIMENOrdering Facility: [facility] Address: [address] [place], [place] [address] Performed By: #### 2 4344-4 ####[facility] LABCLIA [id number] [place] [address] [place] Hemoglobin (Bld) [Mass/Vol] 8.5 g/dL Low 13.0-17.0 [facility] Comment on above: Order Comment: Speci men Type: VENOUS BLOOD SPECIMENOrdering Facility: [facility] Address: [address] [place], [place] [address] Performed By: #### 2 4344-4 ####[facility] LABCLIA [id number] [place] [address] [place] Lactate [Moles/Vol] 0.5 mmol/L Normal 0.5-2.2 [facility] Comment on above: Order Comment: Speci men Type: VENOUS BLOOD SPECIMENOrdering Facility: [facility] Address: [address] [place] [address] Performed By: #### 2 4344-4 ####[facility] LABCLIA [id number] [address] [place] Methemoglobin (Bld) [Mass fraction] 0.9 % Normal 0.0-1.5 [facility] Comment on above: Order Comment: Speci men Type: VENOUS BLOOD SPECIMENOrdering Facility: [facility] Address: [address] Performed By: #### 2 4344-4 ####[facility] LABCLIA [id number] [place] [address] [place] Oxygen (BldV) [Partial pressure] 53 mm[Hg] High 35-45 [facility] Comment on above: Order Comment: Speci men Type: VENOUS BLOOD SPECIMENOrdering Facility: [facility] Address: [address] [place] [address] Performed By: #### 2 4344-4 ####[facility] LABCLIA [id number] [address] [place] Oxygen adjusted to patient's actual temperature (BldV) [Partial pressure] 53 mmHg High 35-45 [facility] Comment on above: Order Comment: Speci men Type: VENOUS BLOOD SPECIMENOrdering Facility: [facility] Address: [address] [place] [address] Performed By: #### 2 4344-4 ####[facility] LABCLIA [id number] [place] [address] [place] Oxygen saturation in Venous blood 83 % Normal 60-85 [facility] Comment on above: Order Comment: Speci men Type: VENOUS BLOOD SPECIMENOrdering Facility: [facility] Address: [address] [place] [address] Performed By: #### 2 4344-4 ####[facility] LABCLIA [id number] [place] [address] [place] Oxyhemoglobin (BldV) [Mass fraction] 81 % Normal 60-85 [facility] Comment on above: Order Comment: Speci men Type: VENOUS BLOOD SPECIMENOrdering Facility: [facility] Address: [address] [place] [address] Performed By: #### 2 4344-4 ####[facility] LABIA [id number] [place] [address] [place] pH (BldV) 7.34 [pH] Normal 7.32-7.42 [facility] Comment on above: Order Comment: Speci men Type: VENOUS BLOOD SPECIMENOrdering Facility: [facility] Address: [address] [place] [address] Performed By: #### 2 4344-4 ####[facility] LABIA [id number] [place] [address] [place] pH adjusted to patient's actual temperature (BldV) 7.34 Normal 7.32-7.42 [facility] Comment on above: Order Comment: Speci men Type: VENOUS BLOOD SPECIMENOrdering Facility: [facility] Address: [address] [place], [place] [address] Performed By: #### 2 4344-4 ####[facility] LABIA [id number] [place] [address] [place] Potassium [Moles/Vol] 4.5 mmol/L Normal 3.5-5.0 [facility] Comment on above: Order Comment: Speci men Type: VENOUS BLOOD SPECIMENOrdering Facility: [facility] Address: [address] [place], [place] [address] Performed By: #### 2 4344-4 ####[facility] LABIA [id number] [place] [address] [place] Sodium [Moles/Vol] 140 mmol/L Normal 136-144 [facility] Comment on above: Order Comment: Speci men Type: VENOUS BLOOD SPECIMENOrdering Facility: [facility] Address: [address] [place], [place] [address] Performed By: #### 2 4344-4 ####[facility] LABCLIA [id number] [place] [address] [place] OPERATIVE NOon 02-11-2023 OPERATIVE NO Normal [facility] THERAPY NTon 02-11-2023 THERAPY NT Normal [facility] ALLIED HEALTHon 02-10-2023 ALLIED HEALTH Normal [facility] CBC W Auto Differential pane l (Bld)on 02-10-2023 Basophils (Bld) [#/Vol] 0.14 10*3/uL High <0.11 [facility] Comment on above: Order Comment: Speci men Type: BLOOD SPECIMENOrdering Facility: [facility] Address: [address] [place], [place] [address] Performed By: #### 5 7021-8 ####[facility] LABCLIA [id number] [place] [address] [place] Basophils/100 WBC (Bld) 1.8 % Normal [facility] Comment on above: Order Comment: Speci men Type: BLOOD SPECIMENOrdering Facility: [facility] Address: [address] [place], [place] [address] Performed By: #### 5 7021-8 ####[facility] LABCLIA [id number] [place] [address] [place] Differential cell count method Nom (Bld) Auto Normal [facility] Comment on above: Order Comment: Speci men Type: BLOOD SPECIMENOrdering Facility: [facility] Address: [address] [place], [place] [address] Performed By: #### 5 7021-8 ####[facility] LABCLIA [id number] [place] [address] [place] Eosinophils (Bld) [#/Vol] 0.28 10*3/uL Normal <0.46 [facility] Comment on above: Order Comment: Speci men Type: BLOOD SPECIMENOrdering Facility: [facility] Address: [address] [place] [address] Performed By: #### 5 7021-8 ####[facility] LABCLIA [id number] [place] [address] [place] Eosinophils/100 WBC (Bld) 3.5 % Normal [facility] Comment on above: Order Comment: Speci men Type: BLOOD SPECIMENOrdering Facility: [facility] Address: [address] [place] [address] Performed By: #### 5 7021-8 ####[facility] LABIA [id number] [place] [address] [place] Erythrocyte distribution width (RBC) [Ratio] 15.4 % High 11.5-15.0 [facility] Comment on above: Order Comment: Speci men Type: BLOOD SPECIMENOrdering Facility: [facility] Address: [address] [place], [place] [address] Performed By: #### 5 7021-8 ####[facility] LABIA [id number] [address] [place] Hematocrit (Bld) [Volume fraction] 24.0 % Low 39.0-51.0 [facility] Comment on above: Order Comment: Speci men Type: BLOOD SPECIMENOrdering Facility: [facility] Address: [address] Performed By: #### 5 7021-8 ####[facility] LABIA [id number] [place] [address] [place] Hemoglobin (Bld) [Mass/Vol] 7.4 g/dL Low 13.0-17.0 [facility] Comment on above: Order Comment: Speci men Type: BLOOD SPECIMENOrdering Facility: [facility] Address: [address] Performed By: #### 5 7021-8 ####[facility] LABCLIA [id number] [place] [address] [place] Immature granulocytes (Bld) [#/Vol] 0.11 10*3/uL High <0.10 [facility] Comment on above: Order Comment: Speci men Type: BLOOD SPECIMENOrdering Facility: [facility] Address: [address] [place], [place] [address] Performed By: #### 5 7021-8 ####[facility] LABCLIA [id number] [address] [place] Immature granulocytes/100 WBC (Bld) 1.4 % Normal [facility] Comment on above: Order Comment: Speci men Type: BLOOD SPECIMENOrdering Facility: [facility] Address: [address] [place], [place] [address] Performed By: #### 5 7021-8 ####[facility] LABIA [id number] [place] [address] [place] Lymphocytes (Bld) [#/Vol] 1.51 10*3/uL Normal 1.00-4.00 [facility] Comment on above: Order Comment: Speci men Type: BLOOD SPECIMENOrdering Facility: [facility] Address: [address] [place], [place] [address] Performed By: #### 5 7021-8 ####[facility] LABCLIA [id number] [place] [address] [place] Lymphocytes/100 WBC (Bld) 18.9 % Normal [facility] Comment on above: Order Comment: Speci men Type: BLOOD SPECIMENOrdering Facility: [facility] Address: [address] [place], [place] [address] Performed By: #### 5 7021-8 ####[facility] LABCLIA [id number] [address] STATES [facility] MCH (RBC) [Entitic mass] 26.7 pg Normal 26.0-34.0 [facility] Comment on above: Order Comment: Speci men Type: BLOOD SPECIMENOrdering Facility: [facility] Address: [address] [place] [address] Performed By: #### 5 7021-8 ####[facility] LABCLIA [id number] [address] OF [facility] MCHC (RBC) [Mass/Vol] 30.8 g/dL Normal 30.5-36.0 [facility] Comment on above: Order Comment: Speci men Type: BLOOD SPECIMENOrdering Facility: [facility] Address: [address] [place] [address] Performed By: #### 5 7021-8 ####[facility] LABCLIA [id number] [address] STATES OF [facility] MCV (RBC) [Entitic vol] 86.6 fL Normal 80.0-100.0 [facility] Comment on above: Order Comment: Speci men Type: BLOOD SPECIMENOrdering Facility: [facility] Address: [address] [place] [address] Performed By: #### 5 7021-8 ####[facility] LABIA [id number] [place] [address] [place] Monocytes (Bld) [#/Vol] 0.73 10*3/uL Normal <0.87 [facility] Comment on above: Order Comment: Speci men Type: BLOOD SPECIMENOrdering Facility: [facility] Address: [address] [place], [place] [address] Performed By: #### 5 7021-8 ####[facility] LABCLIA [id number] [address] [place] Monocytes/100 WBC (Bld) 9.1 % Normal [facility] Comment on above: Order Comment: Speci men Type: BLOOD SPECIMENOrdering Facility: [facility] Address: [address] Performed By: #### 5 7021-8 ####[facility] LABCLIA [id number] [place] [address] [place] Neutrophils (Bld) [#/Vol] 5.21 10*3/uL Normal 1.45-7.50 [facility] Comment on above: Order Comment: Speci men Type: BLOOD SPECIMENOrdering Facility: [facility] Address: [address] Performed By: #### 5 7021-8 ####[facility] LABCLIA [id number] [place] [address] [place] Neutrophils/100 WBC (Bld) 65.3 % Normal [facility] Comment on above: Order Comment: Speci men Type: BLOOD SPECIMENOrdering Facility: [facility] Address: [address] Performed By: #### 5 7021-8 ####[facility] LABCLIA [id number] [place] [address] [place] Nucleated RBC (Bld) [#/Vol] 10*3/uL Normal <0.01 [facility] Comment on above: Order Comment: Speci men Type: BLOOD SPECIMENOrdering Facility: [facility] Address: [address] [place] [address] Performed By: #### 5 7021-8 ####[facility] LABCLIA [id number] [place] [address] [place] Nucleated RBC/100 WBC (Bld) [Ratio] 0.0 /100 WBC Normal [facility] Comment on above: Order Comment: Speci men Type: BLOOD SPECIMENOrdering Facility: [facility] Address: [address] Performed By: #### 5 7021-8 ####[facility] LABCLIA [id number] [place] [address] [place] Platelet mean volume (Bld) [Entitic vol] 10.0 fL Normal 9.0-12.7 [facility] Comment on above: Order Comment: Speci men Type: BLOOD SPECIMENOrdering Facility: [facility] Address: [address] [place], [place] [address] Performed By: #### 5 7021-8 ####[facility] LABIA [id number] [place] [address] [place] Platelets (Bld) [#/Vol] 543 10*3/uL High 150-400 [facility] Comment on above: Order Comment: Speci men Type: BLOOD SPECIMENOrdering Facility: [facility] Address: [address] [place], [place] [address] Performed By: #### 5 7021-8 ####[facility] LABIA [id number] [place] [address] [place] RBC (Bld) [#/Vol] 2.77 10*6/uL Low 4.20-6.00 [facility] Comment on above: Order Comment: Speci men Type: BLOOD SPECIMENOrdering Facility: [facility] Address: [address] [place], [place] [address] Performed By: #### 5 7021-8 ####[facility] LABIA [id number] [place] [address] [place] WBC (Bld) [#/Vol] 7.98 10*3/uL Normal 3.70-11.00 [facility] Comment on above: Order Comment: Speci men Type: BLOOD SPECIMENOrdering Facility: [facility] Address: [address] [place], [place] [address] Performed By: #### 5 7021-8 ####[facility] LABIA [id number] [place] [address] [place] CONSULT PROGon 02-10-2023 CONSULT PROG Normal [facility] CONSULT PROG Normal [facility] NUTRITIONon 02-10-2023 NUTRITION Normal [facility] CBC W Auto Differential pane l (Bld)on 02-09-2023 Basophils (Bld) [#/Vol] 0.13 10*3/uL High <0.11 [facility] Comment on above: Order Comment: Speci men Type: BLOOD SPECIMENOrdering Facility: [facility] Address: [address] [place] [address] Performed By: #### 5 7021-8 ####[facility] LABCLIA [id number] [place] [address] [place] Basophils/100 WBC (Bld) 1.5 % Normal [facility] Comment on above: Order Comment: Speci men Type: BLOOD SPECIMENOrdering Facility: [facility] Address: [address] [place], [place] [address] Performed By: #### 5 7021-8 ####[facility] LABCLIA [id number] [place] [address] [place] [facility] Differential cell count method Nom (Bld) Auto Normal [facility] Comment on above: Order Comment: Speci men Type: BLOOD SPECIMENOrdering Facility: [facility] Address: [address] [place], [place] [address] Performed By: #### 5 7021-8 ####[facility] LABCLIA [id number] [place] [address] [place] Eosinophils (Bld) [#/Vol] 0.21 10*3/uL Normal <0.46 [facility] Comment on above: Order Comment: Speci men Type: BLOOD SPECIMENOrdering Facility: [facility] Address: [address] [place], [place] [address] Performed By: #### 5 7021-8 ####[facility] LABCLIA [id number] [address] [id number] [address] [place] Eosinophils/100 WBC (Bld) 2.4 % Normal [facility] Comment on above: Order Comment: Speci men Type: BLOOD SPECIMENOrdering Facility: [facility] Address: [address] [place] [address] Performed By: #### 5 7021-8 ####[facility] LABCLIA [id number] [place] [address] [place] Erythrocyte distribution width (RBC) [Ratio] 15.4 % High 11.5-15.0 [facility] Comment on above: Order Comment: Speci men Type: BLOOD SPECIMENOrdering Facility: [facility] Address: [address] [place] [address] Performed By: #### 5 7021-8 ####[facility] LABIA [id number] [place] [address] [place] Hematocrit (Bld) [Volume fraction] 24.8 % Low 39.0-51.0 [facility] Comment on above: Order Comment: Speci men Type: BLOOD SPECIMENOrdering Facility: [facility] Address: [address] [place] [address] Performed By: #### 5 7021-8 ####[facility] LABIA [id number] [place] [address] [place] Hemoglobin (Bld) [Mass/Vol] 7.9 g/dL Low 13.0-17.0 [facility] Comment on above: Order Comment: Speci men Type: BLOOD SPECIMENOrdering Facility: [facility] Address: [address] [place], [place] [address] Performed By: #### 5 7021-8 ####[facility] LABIA [id number] [place] [address] [place] Immature granulocytes (Bld) [#/Vol] 0.10 10*3/uL High <0.10 [facility] Comment on above: Order Comment: Speci men Type: BLOOD SPECIMENOrdering Facility: [facility] Address: [address] Performed By: #### 5 7021-8 ####[facility] LABCLIA [id number] [address] Immature granulocytes/100 WBC (Bld) 1.1 % Normal [facility] Comment on above: Order Comment: Speci men Type: BLOOD SPECIMENOrdering Facility: [facility] Address: [address] [address] Performed By: #### 5 7021-8 ####[facility] LABCLIA [id number] [place] [address] [place] Lymphocytes (Bld) [#/Vol] 1.39 10*3/uL Normal 1.00-4.00 [facility] Comment on above: Order Comment: Speci men Type: BLOOD SPECIMENOrdering Facility: [facility] Address: [address] [address] Performed By: #### 5 7021-8 ####[facility] LABCLIA [id number] [address] [place] [facility] Lymphocytes/100 WBC (Bld) 15.9 % Normal [facility] Comment on above: Order Comment: Speci men Type: BLOOD SPECIMENOrdering Facility: [facility] Address: [address] [place], [place] [address] Performed By: #### 5 7021-8 ####[facility] LABCLIA [id number] [place] [address] [place] MCH (RBC) [Entitic mass] 26.6 pg Normal 26.0-34.0 [facility] Comment on above: Order Comment: Speci men Type: BLOOD SPECIMENOrdering Facility: [facility] Address: [address] [place] [address] Performed By: #### 5 7021-8 ####[facility] LABCLIA [id number] [place] [address] [place] MCHC (RBC) [Mass/Vol] 31.9 g/dL Normal 30.5-36.0 [facility] Comment on above: Order Comment: Speci men Type: BLOOD SPECIMENOrdering Facility: [facility] Address: [address] [place] [address] Performed By: #### 5 7021-8 ####[facility] LABIA [id number] [place] [address] [place] MCV (RBC) [Entitic vol] 83.5 fL Normal 80.0-100.0 [facility] Comment on above: Order Comment: Speci men Type: BLOOD SPECIMENOrdering Facility: [facility] Address: [address] [place] [address] Performed By: #### 5 7021-8 ####[facility] LABIA [id number] [place] [address] [place] Monocytes (Bld) [#/Vol] 0.80 10*3/uL Normal <0.87 [facility] Comment on above: Order Comment: Speci men Type: BLOOD SPECIMENOrdering Facility: [facility] Address: [address] [place], [place] [address] Performed By: #### 5 7021-8 ####[facility] LABIA [id number] [place] [address] [place] Monocytes/100 WBC (Bld) 9.2 % Normal [facility] Comment on above: Order Comment: Speci men Type: BLOOD SPECIMENOrdering Facility: [facility] Address: [address] [place], [place] [address] Performed By: #### 5 7021-8 ####[facility] LABCLIA [id number] [place] [address] [place] Neutrophils (Bld) [#/Vol] 6.10 10*3/uL Normal 1.45-7.50 [facility] Comment on above: Order Comment: Speci men Type: BLOOD SPECIMENOrdering Facility: [facility] Address: [address] Performed By: #### 5 7021-8 ####[facility] LABCLIA [id number] [address] [place] Neutrophils/100 WBC (Bld) 69.9 % Normal [facility] Comment on above: Order Comment: Speci men Type: BLOOD SPECIMENOrdering Facility: [facility] Address: [address] Performed By: #### 5 7021-8 ####[facility] LABIA [id number] [place] [address] [place] Nucleated RBC (Bld) [#/Vol] 10*3/uL Normal <0.01 [facility] Comment on above: Order Comment: Speci men Type: BLOOD SPECIMENOrdering Facility: [facility] Address: [address] Performed By: #### 5 7021-8 ####[facility] LABIA [id number] [place] [address] [place] Nucleated RBC/100 WBC (Bld) [Ratio] 0.0 /100 WBC Normal [facility] Comment on above: Order Comment: Speci men Type: BLOOD SPECIMENOrdering Facility: [facility] Address: [address] Performed By: #### 5 7021-8 ####[facility] LABIA [id number] [place] [address] [place] Platelet mean volume (Bld) [Entitic vol] 9.3 fL Normal 9.0-12.7 [facility] Comment on above: Order Comment: Speci men Type: BLOOD SPECIMENOrdering Facility: [facility] Address: [address] Performed By: #### 5 7021-8 ####[facility] [id number] [place] [address] [place] Platelets (Bld) [#/Vol] 537 10*3/uL High 150-400 [facility] Comment on above: Order Comment: Speci men Type: BLOOD SPECIMENOrdering Facility: [facility] Address: [address] [place] [address] Performed By: #### 5 7021-8 ####[facility] [id number] [place] [address] [place] RBC (Bld) [#/Vol] 2.97 10*6/uL Low 4.20-6.00 [facility] Comment on above: Order Comment: Speci men Type: BLOOD SPECIMENOrdering Facility: [facility] Address: [address] [place] [address] Performed By: #### 5 7021-8 ####[facility] [id number] [place] [address] [place] WBC (Bld) [#/Vol] 8.73 10*3/uL Normal 3.70-11.00 [facility] Comment on above: Order Comment: Speci men Type: BLOOD SPECIMENOrdering Facility: [facility] Address: [address] [place], [place] [address] Performed By: #### 5 7021-8 ####[facility] [id number] [place] [address] [place] CONSULT PROGon 02-09-2023 CONSULT PROG Normal [facility] CASE MANAGEMon 02-08-2023 CASE MANAGEM Normal [facility] CBC W Auto Differential pane l (Bld)on 02-08-2023 Basophils (Bld) [#/Vol] 0.15 10*3/uL High <0.11 [facility] Comment on above: Order Comment: Speci men Type: BLOOD SPECIMENOrdering Facility: [facility] Address: [address] Performed By: #### 5 7021-8 ####[facility] LABCLIA [id number] [address] STATES [facility] Basophils/100 WBC (Bld) 1.4 % Normal [facility] Comment on above: Order Comment: Speci men Type: BLOOD SPECIMENOrdering Facility: [facility] Address: [address] [address] Performed By: #### 5 7021-8 ####[facility] LABCLIA [id number] [address] [place] Differential cell count method Nom (Bld) Auto Normal [facility] Comment on above: Order Comment: Speci men Type: BLOOD SPECIMENOrdering Facility: [facility] Address: [address] [place], [place] [address] Performed By: #### 5 7021-8 ####[facility] LABCLIA [id number] [place] [address] [place] Eosinophils (Bld) [#/Vol] 0.20 10*3/uL Normal <0.46 [facility] Comment on above: Order Comment: Speci men Type: BLOOD SPECIMENOrdering Facility: [facility] Address: [address] [place], [place] [address] Performed By: #### 5 7021-8 ####[facility] LABCLIA [id number] [address] [place] Eosinophils/100 WBC (Bld) 1.8 % Normal [facility] Comment on above: Order Comment: Speci men Type: BLOOD SPECIMENOrdering Facility: [facility] Address: [address] [place], [place] [address] Performed By: #### 5 7021-8 ####[facility] LABCLIA [id number] [place] [address] [place] Erythrocyte distribution width (RBC) [Ratio] 15.7 % High 11.5-15.0 [facility] Comment on above: Order Comment: Speci men Type: BLOOD SPECIMENOrdering Facility: [facility] Address: [address] [place] [address] Performed By: #### 5 7021-8 ####[facility] LABCLIA [id number] [place] [address] [place] Hematocrit (Bld) [Volume fraction] 27.0 % Low 39.0-51.0 [facility] Comment on above: Order Comment: Speci men Type: BLOOD SPECIMENOrdering Facility: [facility] Address: [address] [place] [address] Performed By: #### 5 7021-8 ####[facility] LABCLIA [id number] [place] [address] [place] Hemoglobin (Bld) [Mass/Vol] 8.5 g/dL Low 13.0-17.0 [facility] Comment on above: Order Comment: Speci men Type: BLOOD SPECIMENOrdering Facility: [facility] Address: [address] [place], [place] [address] Performed By: #### 5 7021-8 ####[facility] LABIA [id number] [place] [address] [place] Immature granulocytes (Bld) [#/Vol] 0.16 10*3/uL High <0.10 [facility] Comment on above: Order Comment: Speci men Type: BLOOD SPECIMENOrdering Facility: [facility] Address: [address] [place], [place] [address] Performed By: #### 5 7021-8 ####[facility] LABCLIA [id number] [place] [address] [place] Immature granulocytes/100 WBC (Bld) 1.4 % Normal [facility] Comment on above: Order Comment: Speci men Type: BLOOD SPECIMENOrdering Facility: [facility] Address: [address] Performed By: #### 5 7021-8 ####[facility] LABCLIA [id number] [place] [address] [place] [facility] Lymphocytes (Bld) [#/Vol] 1.49 10*3/uL Normal 1.00-4.00 [facility] Comment on above: Order Comment: Speci men Type: BLOOD SPECIMENOrdering Facility: [facility] Address: [address] Performed By: #### 5 7021-8 ####[facility] LABCLIA [id number] [address] [place] Lymphocytes/100 WBC (Bld) 13.5 % Normal [facility] Comment on above: Order Comment: Speci men Type: BLOOD SPECIMENOrdering Facility: [facility] Address: [address] [place], [place] [address] Performed By: #### 5 7021-8 ####[facility] LABCLIA [id number] [place] [address] [place] MCH (RBC) [Entitic mass] 27.1 pg Normal 26.0-34.0 [facility] Comment on above: Order Comment: Speci men Type: BLOOD SPECIMENOrdering Facility: [facility] Address: [address] [place], [place] [address] Performed By: #### 5 7021-8 ####[facility] LABCLIA [id number] [place] [address] [place] MCHC (RBC) [Mass/Vol] 31.5 g/dL Normal 30.5-36.0 [facility] Comment on above: Order Comment: Speci men Type: BLOOD SPECIMENOrdering Facility: [facility] Address: [address] [place], [place] [address] Performed By: #### 5 7021-8 ####[facility] LABCLIA [id number] [place] [address] [place] MCV (RBC) [Entitic vol] 86.0 fL Normal 80.0-100.0 [facility] Comment on above: Order Comment: Speci men Type: BLOOD SPECIMENOrdering Facility: [facility] Address: [address] [place] [address] Performed By: #### 5 7021-8 ####[facility] LABIA [id number] [place] [address] [place] Monocytes (Bld) [#/Vol] 0.98 10*3/uL High <0.87 [facility] Comment on above: Order Comment: Speci men Type: BLOOD SPECIMENOrdering Facility: [facility] Address: [address] [place] [address] Performed By: #### 5 7021-8 ####[facility] LABIA [id number] [place] [address] [place] Monocytes/100 WBC (Bld) 8.9 % Normal [facility] Comment on above: Order Comment: Speci men Type: BLOOD SPECIMENOrdering Facility: [facility] Address: [address] [place] [address] Performed By: #### 5 7021-8 ####[facility] LABIA [id number] [place] [address] [place] Neutrophils (Bld) [#/Vol] 8.08 10*3/uL High 1.45-7.50 [facility] Comment on above: Order Comment: Speci men Type: BLOOD SPECIMENOrdering Facility: [facility] Address: [address] [place], [place] [address] Performed By: #### 5 7021-8 ####[facility] LABIA [id number] [place] [address] [place] Neutrophils/100 WBC (Bld) 73.0 % Normal [facility] Comment on above: Order Comment: Speci men Type: BLOOD SPECIMENOrdering Facility: [facility] Address: [address] [place] [address] Performed By: #### 5 7021-8 ####[facility] LABIA [id number] [place] [address] [place] Nucleated RBC (Bld) [#/Vol] 10*3/uL Normal <0.01 [facility] Comment on above: Order Comment: Speci men Type: BLOOD SPECIMENOrdering Facility: [facility] Address: [address] Performed By: #### 5 7021-8 ####[facility] LABIA [id number] [place] [address] [place] Nucleated RBC/100 WBC (Bld) [Ratio] 0.0 /100 WBC Normal [facility] Comment on above: Order Comment: Speci men Type: BLOOD SPECIMENOrdering Facility: [facility] Address: [address] [place] [address] Performed By: #### 5 7021-8 ####[facility] LABIA [id number] [place] [address] [place] Platelet mean volume (Bld) [Entitic vol] 9.7 fL Normal 9.0-12.7 [facility] Comment on above: Order Comment: Speci men Type: BLOOD SPECIMENOrdering Facility: [facility] Address: [address] [place] [address] Performed By: #### 5 7021-8 ####[facility] LABIA [id number] [place] [address] [place] Platelets (Bld) [#/Vol] 590 10*3/uL High 150-400 [facility] Comment on above: Order Comment: Speci men Type: BLOOD SPECIMENOrdering Facility: [facility] Address: [address] [place] [address] Performed By: #### 5 7021-8 ####[facility] LABIA [id number] [place] [address] [place] RBC (Bld) [#/Vol] 3.14 10*6/uL Low 4.20-6.00 [facility] Comment on above: Order Comment: Speci men Type: BLOOD SPECIMENOrdering Facility: [facility] Address: [address] Performed By: #### 5 7021-8 ####[facility] LABIA [id number] [place] [address] [place] WBC (Bld) [#/Vol] 11.06 10*3/uL High 3.70-11.00 [facility] Comment on above: Order Comment: Speci men Type: BLOOD SPECIMENOrdering Facility: [facility] Address: [address] [place], [place] [address] Performed By: #### 5 7021-8 ####[facility] [id number] [place] [address] [place] CONSULT PROGon 02-08-2023 CONSULT PROG Normal [facility] Comprehensive metabolic 2000 panelon 02-08-2023 Albumin [Mass/Vol] 3.4 g/dL Low 3.9-4.9 [facility] Comment on above: Order Comment: Speci men Type: BLOOD SPECIMENOrdering Facility: [facility] Address: [address] Performed By: #### 2 4323-8 ####[facility] LABIA [id number] [place] [address] [place] ALP [Catalytic activity/Vol] 172 U/L High 38-113 [facility] Comment on above: Order Comment: Speci men Type: BLOOD SPECIMENOrdering Facility: [facility] Address: [address] [place], [place] [address] Performed By: #### 2 4323-8 ####[facility] LABCLIA [id number] [place] [address] [place] ALT [Catalytic activity/Vol] 118 U/L High 10-54 [facility] Comment on above: Order Comment: Speci men Type: BLOOD SPECIMENOrdering Facility: [facility] Address: [address] [place] [address] Performed By: #### 2 4323-8 ####[facility] LABCLIA [id number] [place] [address] [place] Anion gap [Moles/Vol] 9 mmol/L Normal 9-18 [facility] Comment on above: Order Comment: Speci men Type: BLOOD SPECIMENOrdering Facility: [facility] Address: [address] [place] [address] Performed By: #### 2 4323-8 ####[facility] LABCLIA [id number] [place] [address] [place] AST [Catalytic activity/Vol] 64 U/L High 14-40 [facility] Comment on above: Order Comment: Speci men Type: BLOOD SPECIMENOrdering Facility: [facility] Address: [address] [place], [place] [address] Performed By: #### 2 4323-8 ####[facility] LABCLIA [id number] [place] [address] [place] Bilirubin [Mass/Vol] 0.3 mg/dL Normal 0.2-1.3 [facility] Comment on above: Order Comment: Speci men Type: BLOOD SPECIMENOrdering Facility: [facility] Address: [address] [place], [place] [address] Performed By: #### 2 4323-8 ####[facility] LABCLIA [id number] [place] [address] [place] Calcium [Mass/Vol] 8.5 mg/dL Normal 8.5-10.2 [facility] Comment on above: Order Comment: Speci men Type: BLOOD SPECIMENOrdering Facility: [facility] Address: [address] Performed By: #### 2 4323-8 ####[facility] LABCLIA [id number] [place] [address] [place] Chloride [Moles/Vol] 100 mmol/L Normal 97-105 [facility] Comment on above: Order Comment: Speci men Type: BLOOD SPECIMENOrdering Facility: [facility] Address: [address] [place] [place] [address] Performed By: #### 2 4323-8 ####[facility] LABCLIA [id number] [place] [address] [place] CO2 [Moles/Vol] 24 mmol/L Normal 22-30 [facility] Comment on above: Order Comment: Speci men Type: BLOOD SPECIMENOrdering Facility: [facility] Address: [address] Performed By: #### 2 4323-8 ####[facility] LABCLIA [id number] [place] [address] [place] Creatinine [Mass/Vol] 0.97 mg/dL Normal 0.73-1.22 [facility] Comment on above: Order Comment: Speci men Type: BLOOD SPECIMENOrdering Facility: [facility] Address: [address] Performed By: #### 2 4323-8 ####[facility] LABCLIA [id number] [place] [address] [place] ESTIMATED GLOMERULAR FILTRATION RATE 90 mL/min/1.73m??? Normal >=60 [facility] Comment on above: Order Comment: Speci men Type: BLOOD SPECIMENOrdering Facility: [facility] Address: [address] Result Comment: Veronica mated Glomerular Filtration Rate (eGFR) is calculated using the 2020 CKD-EPI creatinine equation. This equation utilizes serum creatinine, sex, and age as parameters. The creatinine assay has traceable calibration to isotope dilution-mass spectrometry. Refer to KDIGO guidelines for clinical interpretation. In patients with unstable renal function, e.g. those with acute kidney injury, the eGFR may not accurately reflect actual GFR. Performed By: #### 2 4323-8 ####[facility] LABCLIA [id number] [place] [address] [place] Glucose [Mass/Vol] 123 mg/dL High 74-99 [facility] Comment on above: Order Comment: Alden padilla Type: BLOOD SPECIMENOrdering Facility: [facility] Address: [address] [address] Result Comment: The [place] [employer] (ADA) provides guidance for cutoff values for fasting glucose and random glucose. The ADA defines fasting as no caloric intake for at least 8 hours. Fasting plasma glucose results between 100 to 125 mg/dL indicate increased risk for diabetes (prediabetes).Fasting plasma glucose results greater than or equal to 126 mg/dL meet the criteria for diagnosis of diabetes. In the absence of unequivocal hyperglycemia, results should be confirmed by repeat testing. In a patient with classic symptoms of hyperglycemia or hyperglycemic crisis, random plasma glucose results greater than or equal to 200 mg/dL meet the criteria for diagnosis of diabetes.Reference: Standards of Medical Care in Diabetes 2016, [place] [employer]. Diabetes Care. 2016.39(Suppl 1). Performed By: #### 2 4323-8 ####[facility] LABCLIA [id number] [place] [address] [place] Potassium [Moles/Vol] 4.7 mmol/L Normal 3.7-5.1 [facility] Comment on above: Order Comment: Alden padilla Type: BLOOD SPECIMENOrdering Facility: [facility] Address: [address] [id number] Performed By: #### 2 4323-8 ####[facility] LABCLIA [id number] [place] [address] [place] Protein [Mass/Vol] 7.5 g/dL Normal 6.3-8.0 [facility] Comment on above: Order Comment: Speci men Type: BLOOD SPECIMENOrdering Facility: [facility] Address: [address] [place] [address] Performed By: #### 2 4323-8 ####[facility] LABCLIA [id number] [place] [address] [place] Sodium [Moles/Vol] 133 mmol/L Low 136-144 [facility] Comment on above: Order Comment: Speci men Type: BLOOD SPECIMENOrdering Facility: [facility] Address: [address] [place] [address] Performed By: #### 2 4323-8 ####[facility] LABCLIA [id number] [place] [address] [place] Urea nitrogen [Mass/Vol] 24 mg/dL Normal 9-24 [facility] Comment on above: Order Comment: Speci men Type: BLOOD SPECIMENOrdering Facility: [facility] Address: [address] [place] [address] Performed By: #### 2 4323-8 ####[facility] LABCLIA [id number] [place] [address] [place] TYPE + SCREENon 02-08-2023 ABO A Normal [facility] Comment on above: Order Comment: Speci men Type: BLOOD SPECIMENOrdering Facility: [facility] Address: [address] [place], [place] [address] Performed By: #### T SCR ####[facility] BLO[facility] BANKCLIA [id number] [place] [address] [place] HISTORICAL AB SCR STATUS Negative Normal [facility] Comment on above: Order Comment: Speci men Type: BLOOD SPECIMENOrdering Facility: [facility] Address: [address] Performed By: #### T SCR ####[facility]ANKCLIA [id number] [place] [address] [place] Rh Nom (Bld) Positive Normal [facility] Comment on above: Order Comment: Speci men Type: BLOOD SPECIMENOrdering Facility: [facility] Address: [address] [place] [address] Performed By: #### T SCR ####[facility] BANKIA [id number] [address] [place] TYPE AND SCREEN EXPIRATION 02/11/2023 23:59 Normal [facility] Comment on above: Order Comment: Speci men Type: BLOOD SPECIMENOrdering Facility: [facility] Address: [address] [place] [address] Performed By: #### T SCR ####[facility] [id number] [address] [facility] CASE MANAGEMon 02-07-2023 CASE MANAGEM Normal [facility] CBC W Auto Differential pane l (Bld)on 02-07-2023 Basophils (Bld) [#/Vol] 0.18 10*3/uL High <0.11 [facility] Comment on above: Order Comment: Speci men Type: BLOOD SPECIMENOrdering Facility: [facility] Address: [address] [place] [address] Performed By: #### 5 7021-8 ####[facility] LABCLIA [id number] [address] [place] Basophils/100 WBC (Bld) 1.7 % Normal [facility] Comment on above: Order Comment: Speci men Type: BLOOD SPECIMENOrdering Facility: [facility] Address: [address] [place] [address] Performed By: #### 5 7021-8 ####[facility] LABCLIA [id number] [place] [address] [place] Differential cell count method Nom (Bld) Auto Normal [facility] Comment on above: Order Comment: Speci men Type: BLOOD SPECIMENOrdering Facility: [facility] Address: [address] Performed By: #### 5 7021-8 ####[facility] LABCLIA [id number] [place] [address] [place] Eosinophils (Bld) [#/Vol] 0.17 10*3/uL Normal <0.46 [facility] Comment on above: Order Comment: Speci men Type: BLOOD SPECIMENOrdering Facility: [facility] Address: [address] Performed By: #### 5 7021-8 ####[facility] LABCLIA [id number] [address] [place] Eosinophils/100 WBC (Bld) 1.6 % Normal [facility] Comment on above: Order Comment: Speci men Type: BLOOD SPECIMENOrdering Facility: [facility] Address: [address] Performed By: #### 5 7021-8 ####[facility] LABCLIA [id number] [place] [address] [place] Erythrocyte distribution width (RBC) [Ratio] 15.8 % High 11.5-15.0 [facility] Comment on above: Order Comment: Speci men Type: BLOOD SPECIMENOrdering Facility: [facility] Address: [address] Performed By: #### 5 7021-8 ####[facility] LABCLIA [id number] [address] [place] Hematocrit (Bld) [Volume fraction] 25.8 % Low 39.0-51.0 [facility] Comment on above: Order Comment: Speci men Type: BLOOD SPECIMENOrdering Facility: [facility] Address: [address] Performed By: #### 5 7021-8 ####[facility] LABCLIA [id number] [place] [address] [place] Hemoglobin (Bld) [Mass/Vol] 8.4 g/dL Low 13.0-17.0 [facility] Comment on above: Order Comment: Speci men Type: BLOOD SPECIMENOrdering Facility: [facility] Address: [address] [place] [address] Performed By: #### 5 7021-8 ####[facility] LABCLIA [id number] [place] [address] [place] Immature granulocytes (Bld) [#/Vol] 0.13 10*3/uL High <0.10 [facility] Comment on above: Order Comment: Speci men Type: BLOOD SPECIMENOrdering Facility: [facility] Address: [address] [place] [address] Performed By: #### 5 7021-8 ####[facility] LABIA [id number] [place] [address] [place] Immature granulocytes/100 WBC (Bld) 1.2 % Normal [facility] Comment on above: Order Comment: Speci men Type: BLOOD SPECIMENOrdering Facility: [facility] Address: [address] [place] [address] Performed By: #### 5 7021-8 ####[facility] LABIA [id number] [place] [address] [place] Lymphocytes (Bld) [#/Vol] 1.62 10*3/uL Normal 1.00-4.00 [facility] Comment on above: Order Comment: Speci men Type: BLOOD SPECIMENOrdering Facility: [facility] Address: [address] [place] [address] Performed By: #### 5 7021-8 ####[facility] LABIA [id number] [place] [address] [place] Lymphocytes/100 WBC (Bld) 14.9 % Normal [facility] Comment on above: Order Comment: Speci men Type: BLOOD SPECIMENOrdering Facility: [facility] Address: [address] [place], [place] [address] Performed By: #### 5 7021-8 ####[facility] LABCLIA [id number] [address] [place] MCH (RBC) [Entitic mass] 27.3 pg Normal 26.0-34.0 [facility] Comment on above: Order Comment: Speci men Type: BLOOD SPECIMENOrdering Facility: [facility] Address: [address] [place], [place] [address] Performed By: #### 5 7021-8 ####[facility] LABCLIA [id number] [place] [address] [place] MCHC (RBC) [Mass/Vol] 32.6 g/dL Normal 30.5-36.0 [facility] Comment on above: Order Comment: Speci men Type: BLOOD SPECIMENOrdering Facility: [facility] Address: [address] [place], [place] [address] Performed By: #### 5 7021-8 ####[facility] LABIA [id number] [place] [address] [place] MCV (RBC) [Entitic vol] 83.8 fL Normal 80.0-100.0 [facility] Comment on above: Order Comment: Speci men Type: BLOOD SPECIMENOrdering Facility: [facility] Address: [address] [place], [place] [address] Performed By: #### 5 7021-8 ####[facility] LABCLIA [id number] [place] [address] [place] Monocytes (Bld) [#/Vol] 0.97 10*3/uL High <0.87 [facility] Comment on above: Order Comment: Speci men Type: BLOOD SPECIMENOrdering Facility: [facility] Address: [address] Performed By: #### 5 7021-8 ####[facility] LABCLIA [id number] [place] [address] [place] Monocytes/100 WBC (Bld) 8.9 % Normal [facility] Comment on above: Order Comment: Speci men Type: BLOOD SPECIMENOrdering Facility: [facility] Address: [address] Performed By: #### 5 7021-8 ####[facility] LABCLIA [id number] [place] [address] [place] Neutrophils (Bld) [#/Vol] 7.83 10*3/uL High 1.45-7.50 [facility] Comment on above: Order Comment: Speci men Type: BLOOD SPECIMENOrdering Facility: [facility] Address: [address] Performed By: #### 5 7021-8 ####[facility] LABCLIA [id number] [place] [address] [place] Neutrophils/100 WBC (Bld) 71.7 % Normal [facility] Comment on above: Order Comment: Speci men Type: BLOOD SPECIMENOrdering Facility: [facility] Address: [address] Performed By: #### 5 7021-8 ####[facility] LABCLIA [id number] [place] [address] [place] Nucleated RBC (Bld) [#/Vol] 10*3/uL Normal <0.01 [facility] Comment on above: Order Comment: Speci men Type: BLOOD SPECIMENOrdering Facility: [facility] Address: [address] Performed By: #### 5 7021-8 ####[facility] LABCLIA [id number] [place] [address] [place] Nucleated RBC/100 WBC (Bld) [Ratio] 0.0 /100 WBC Normal [facility] Comment on above: Order Comment: Speci men Type: BLOOD SPECIMENOrdering Facility: [facility] Address: [address] [place], [place] [address] Performed By: #### 5 7021-8 ####[facility] LABIA [id number] [place] [address] [place] Platelet mean volume (Bld) [Entitic vol] 9.4 fL Normal 9.0-12.7 [facility] Comment on above: Order Comment: Speci men Type: BLOOD SPECIMENOrdering Facility: [facility] Address: [address] [place] [address] Performed By: #### 5 7021-8 ####[facility] LABCLIA [id number] [place] [address] [place] Platelets (Bld) [#/Vol] 593 10*3/uL High 150-400 [facility] Comment on above: Order Comment: Speci men Type: BLOOD SPECIMENOrdering Facility: [facility] Address: [address] [place], [place] [address] Performed By: #### 5 7021-8 ####[facility] LABIA [id number] [place] [address] [place] RBC (Bld) [#/Vol] 3.08 10*6/uL Low 4.20-6.00 [facility] Comment on above: Order Comment: Speci men Type: BLOOD SPECIMENOrdering Facility: [facility] Address: [address] [place], [place] [address] Performed By: #### 5 7021-8 ####[facility] LABCLIA [id number] [place] [address] [place] WBC (Bld) [#/Vol] 10.90 10*3/uL Normal 3.70-11.00 [facility] Comment on above: Order Comment: Speci men Type: BLOOD SPECIMENOrdering Facility: [facility] Address: [address] [place] [address] Performed By: #### 5 7021-8 ####[facility] LABCLIA [id number] [place] [address] [place] CONSULT PROGon 02-07-2023 CONSULT PROG Normal [facility] CONSULT PROG Normal [facility] Comprehensive metabolic 2000 panelon 02-07-2023 Albumin [Mass/Vol] 3.5 g/dL Low 3.9-4.9 [facility] Comment on above: Order Comment: Speci men Type: BLOOD SPECIMENOrdering Facility: [facility] Address: [address] [place] [address] Performed By: #### 2 4323-8 ####[facility] LABCLIA [id number] [place] [address] [place] ALP [Catalytic activity/Vol] 162 U/L High 38-113 [facility] Comment on above: Order Comment: Speci men Type: BLOOD SPECIMENOrdering Facility: [facility] Address: [address] [place] [address] Performed By: #### 2 4323-8 ####[facility] LABCLIA [id number] [place] [address] [place] ALT [Catalytic activity/Vol] 129 U/L High 10-54 [facility] Comment on above: Order Comment: Speci men Type: BLOOD SPECIMENOrdering Facility: [facility] Address: [address] [place], [place] [address] Performed By: #### 2 4323-8 ####[facility] LABCLIA [id number] [place] [address] [place] Anion gap [Moles/Vol] 8 mmol/L Low 9-18 [facility] Comment on above: Order Comment: Speci men Type: BLOOD SPECIMENOrdering Facility: [facility] Address: [address] Performed By: #### 2 4323-8 ####[facility] LABCLIA [id number] [place] [address] [place] AST [Catalytic activity/Vol] 57 U/L High 14-40 [facility] Comment on above: Order Comment: Speci men Type: BLOOD SPECIMENOrdering Facility: [facility] Address: [address] Performed By: #### 2 4323-8 ####[facility] LABCLIA [id number] [place] [address] [place] Bilirubin [Mass/Vol] 0.4 mg/dL Normal 0.2-1.3 [facility] Comment on above: Order Comment: Speci men Type: BLOOD SPECIMENOrdering Facility: [facility] Address: [address] Performed By: #### 2 4323-8 ####[facility] LABCLIA [id number] [place] [address] [place] Calcium [Mass/Vol] 8.6 mg/dL Normal 8.5-10.2 [facility] Comment on above: Order Comment: Speci men Type: BLOOD SPECIMENOrdering Facility: [facility] Address: [address] Performed By: #### 2 4323-8 ####[facility] LABCLIA [id number] [place] [address] [place] Chloride [Moles/Vol] 97 mmol/L Normal 97-105 [facility] Comment on above: Order Comment: Speci men Type: BLOOD SPECIMENOrdering Facility: [facility] Address: [address] Performed By: #### 2 4323-8 ####[facility] LABCLIA [id number] [place] [address] [place] CO2 [Moles/Vol] 25 mmol/L Normal 22-30 [facility] Comment on above: Order Comment: Speci men Type: BLOOD SPECIMENOrdering Facility: [facility] Address: [address] [place] [address] Performed By: #### 2 4323-8 ####[facility] LABIA [id number] [address] [place] Creatinine [Mass/Vol] 0.87 mg/dL Normal 0.73-1.22 [facility] Comment on above: Order Comment: Speci men Type: BLOOD SPECIMENOrdering Facility: [facility] Address: [address] [place] [address] Performed By: #### 2 4323-8 ####[facility] [id number] [address] [facility] ESTIMATED GLOMERULAR FILTRATION RATE 99 mL/min/1.73m??? Normal >=60 [facility] Comment on above: Order Comment: Speci men Type: BLOOD SPECIMENOrdering Facility: [facility] Address: [address] [place] [address] Result Comment: Veronica mated Glomerular Filtration Rate (eGFR) is calculated using the 2020 CKD-EPI creatinine equation. This equation utilizes serum creatinine, sex, and age as parameters. The creatinine assay has traceable calibration to isotope dilution-mass spectrometry. Refer to KDIGO guidelines for clinical interpretation. In patients with unstable renal function, e.g. those with acute kidney injury, the eGFR may not accurately reflect actual GFR. Performed By: #### 2 4323-8 ####[facility] [id number] [place] [address] [place] Glucose [Mass/Vol] 133 mg/dL High 74-99 [facility] Comment on above: Order Comment: Speci men Type: BLOOD SPECIMENOrdering Facility: [facility] Address: [address] [place] [address] Result Comment: The [place] [employer] (ADA) provides guidance for cutoff values for fasting glucose and random glucose. The ADA defines fasting as no caloric intake for at least 8 hours. Fasting plasma glucose results between 100 to 125 mg/dL indicate increased risk for diabetes (prediabetes).Fasting plasma glucose results greater than or equal to 126 mg/dL meet the criteria for diagnosis of diabetes. In the absence of unequivocal hyperglycemia, results should be confirmed by repeat testing. In a patient with classic symptoms of hyperglycemia or hyperglycemic crisis, random plasma glucose results greater than or equal to 200 mg/dL meet the criteria for diagnosis of diabetes.Reference: Standards of Medical Care in Diabetes 2016, [place] [employer]. Diabetes Care. 2016.39(Suppl 1). Performed By: #### 2 4323-8 ####[facility] LABIA [id number] [place] [address] [place] Potassium [Moles/Vol] 4.7 mmol/L Normal 3.7-5.1 [facility] Comment on above: Order Comment: Speci men Type: BLOOD SPECIMENOrdering Facility: [facility] Address: [address] [address] Performed By: #### 2 4323-8 ####[facility] [id number] [place] [address] [place] Protein [Mass/Vol] 7.5 g/dL Normal 6.3-8.0 [facility] Comment on above: Order Comment: Speci men Type: BLOOD SPECIMENOrdering Facility: [facility] Address: [address] Performed By: #### 2 4323-8 ####[facility] LABIA [id number] [place] [address] [place] Sodium [Moles/Vol] 130 mmol/L Low 136-144 [facility] Comment on above: Order Comment: Speci men Type: BLOOD SPECIMENOrdering Facility: [facility] Address: [address] Performed By: #### 2 4323-8 ####[facility] LABCLIA [id number] [place] [address] [place] Urea nitrogen [Mass/Vol] 19 mg/dL Normal 9 [facility] Comment on above: Order Comment: Speci men Type: BLOOD SPECIMENOrdering Facility: [facility] Address: [address] [place], [place] [address] Performed By: #### 2 4323-8 ####[facility] LABCLIA [id number] [place] [address] [place] THERAPY NTon 02-07-2023 THERAPY NT Normal [facility] CBC W Auto Differential pane l (Bld)on 02-06-2023 Basophils (Bld) [#/Vol] 0.18 10*3/uL High <0.11 [facility] Comment on above: Order Comment: Speci men Type: BLOOD SPECIMENOrdering Facility: [facility] Address: [address] [place], [place] [address] Performed By: #### 5 7021-8 ####[facility] LABIA [id number] [address] [place] Basophils/100 WBC (Bld) 1.6 % Normal [facility] Comment on above: Order Comment: Speci men Type: BLOOD SPECIMENOrdering Facility: [facility] Address: [address] [place], [place] [address] Performed By: #### 5 7021-8 ####[facility] LABCLIA [id number] [address] [place] Differential cell count method Nom (Bld) Auto Normal [facility] Comment on above: Order Comment: Speci men Type: BLOOD SPECIMENOrdering Facility: [facility] Address: [address] [place], [place] [address] Performed By: #### 5 7021-8 ####[facility] LABCLIA [id number] [place] [address] [place] Eosinophils (Bld) [#/Vol] 0.13 10*3/uL Normal <0.46 [facility] Comment on above: Order Comment: Speci men Type: BLOOD SPECIMENOrdering Facility: [facility] Address: [address] [address] Performed By: #### 5 7021-8 ####[facility] LABCLIA [id number] [address] [place] Eosinophils/100 WBC (Bld) 1.2 % Normal [facility] Comment on above: Order Comment: Speci men Type: BLOOD SPECIMENOrdering Facility: [facility] Address: [address] [place] [address] Performed By: #### 5 7021-8 ####[facility] LABIA [id number] [address] [place] Erythrocyte distribution width (RBC) [Ratio] 15.9 % High 11.5-15.0 [facility] Comment on above: Order Comment: Speci men Type: BLOOD SPECIMENOrdering Facility: [facility] Address: [address] [place], [place] [address] Performed By: #### 5 7021-8 ####[facility] LABIA [id number] [place] [address] [place] Hematocrit (Bld) [Volume fraction] 25.5 % Low 39.0-51.0 [facility] Comment on above: Order Comment: Speci men Type: BLOOD SPECIMENOrdering Facility: [facility] Address: [address] [place], [place] [address] Performed By: #### 5 7021-8 ####[facility] LABCLIA [id number] [place] [address] [place] Hemoglobin (Bld) [Mass/Vol] 8.2 g/dL Low 13.0-17.0 [facility] Comment on above: Order Comment: Speci men Type: BLOOD SPECIMENOrdering Facility: [facility] Address: [address] Performed By: #### 5 7021-8 ####[facility] LABCLIA [id number] [place] [address] [place] Immature granulocytes (Bld) [#/Vol] 0.14 10*3/uL High <0.10 [facility] Comment on above: Order Comment: Speci men Type: BLOOD SPECIMENOrdering Facility: [facility] Address: [address] [address] Performed By: #### 5 7021-8 ####[facility] LABCLIA [id number] [place] [address] [place] Immature granulocytes/100 WBC (Bld) 1.2 % Normal [facility] Comment on above: Order Comment: Speci men Type: BLOOD SPECIMENOrdering Facility: [facility] Address: [address] Performed By: #### 5 7021-8 ####[facility] LABCLIA [id number] [place] [address] [place] Lymphocytes (Bld) [#/Vol] 1.57 10*3/uL Normal 1.00-4.00 [facility] Comment on above: Order Comment: Speci men Type: BLOOD SPECIMENOrdering Facility: [facility] Address: [address] Performed By: #### 5 7021-8 ####[facility] LABCLIA [id number] [place] [address] [place] Lymphocytes/100 WBC (Bld) 14.0 % Normal [facility] Comment on above: Order Comment: Speci men Type: BLOOD SPECIMENOrdering Facility: [facility] Address: [address] Performed By: #### 5 7021-8 ####[facility] LABCLIA [id number] [place] [address] [place] MCH (RBC) [Entitic mass] 26.9 pg Normal 26.0-34.0 [facility] Comment on above: Order Comment: Speci men Type: BLOOD SPECIMENOrdering Facility: [facility] Address: [address] [place] [address] Performed By: #### 5 7021-8 ####[facility] [id number] [address] [place] [facility] MCHC (RBC) [Mass/Vol] 32.2 g/dL Normal 30.5-36.0 [facility] Comment on above: Order Comment: Speci men Type: BLOOD SPECIMENOrdering Facility: [facility] Address: [address] [place] [address] Performed By: #### 5 7021-8 ####[facility] [id number] [address] STATES [place] [facility] MCV (RBC) [Entitic vol] 83.6 fL Normal 80.0-100.0 [facility] Comment on above: Order Comment: Speci men Type: BLOOD SPECIMENOrdering Facility: [facility] Address: [address] [place] [address] Performed By: #### 5 7021-8 ####[facility] [id number] [address] [place] Monocytes (Bld) [#/Vol] 0.78 10*3/uL Normal <0.87 [facility] Comment on above: Order Comment: Speci men Type: BLOOD SPECIMENOrdering Facility: [facility] Address: [address] [place] [address] Performed By: #### 5 7021-8 ####[facility] [id number] [address] Monocytes/100 WBC (Bld) 7.0 % Normal [facility] Comment on above: Order Comment: Speci men Type: BLOOD SPECIMENOrdering Facility: [facility] Address: [address] Performed By: #### 5 7021-8 ####[facility] LABCLIA [id number] [place] [address] [place] Neutrophils (Bld) [#/Vol] 8.42 10*3/uL High 1.45-7.50 [facility] Comment on above: Order Comment: Speci men Type: BLOOD SPECIMENOrdering Facility: [facility] Address: [address] Performed By: #### 5 7021-8 ####[facility] LABCLIA [id number] [place] [address] [place] Neutrophils/100 WBC (Bld) 75.0 % Normal [facility] Comment on above: Order Comment: Speci men Type: BLOOD SPECIMENOrdering Facility: [facility] Address: [address] Performed By: #### 5 7021-8 ####[facility] LABCLIA [id number] [place] [address] [place] Nucleated RBC (Bld) [#/Vol] 10*3/uL Normal <0.01 [facility] Comment on above: Order Comment: Speci men Type: BLOOD SPECIMENOrdering Facility: [facility] Address: [address] Performed By: #### 5 7021-8 ####[facility] LABCLIA [id number] [place] [address] [place] Nucleated RBC/100 WBC (Bld) [Ratio] 0.0 /100 WBC Normal [facility] Comment on above: Order Comment: Speci men Type: BLOOD SPECIMENOrdering Facility: [facility] Address: [address] Performed By: #### 5 7021-8 ####[facility] LABCLIA [id number] [place] [address] [place] Platelet mean volume (Bld) [Entitic vol] 9.6 fL Normal 9.0-12.7 [facility] Comment on above: Order Comment: Speci men Type: BLOOD SPECIMENOrdering Facility: [facility] Address: [address] [place], [place] [address] Performed By: #### 5 7021-8 ####[facility] LABCLIA [id number] [place] [address] [place] Platelets (Bld) [#/Vol] 632 10*3/uL High 150-400 [facility] Comment on above: Order Comment: Speci men Type: BLOOD SPECIMENOrdering Facility: [facility] Address: [address] [place], [place] [address] Performed By: #### 5 7021-8 ####[facility] LABCLIA [id number] [place] [address] [place] RBC (Bld) [#/Vol] 3.05 10*6/uL Low 4.20-6.00 [facility] Comment on above: Order Comment: Speci men Type: BLOOD SPECIMENOrdering Facility: [facility] Address: [address] [place] [address] Performed By: #### 5 7021-8 ####[facility] LABCLIA [id number] [place] [address] [place] WBC (Bld) [#/Vol] 11.22 10*3/uL High 3.70-11.00 [facility] Comment on above: Order Comment: Speci men Type: BLOOD SPECIMENOrdering Facility: [facility] Address: [address] [place], [place] [address] Performed By: #### 5 7021-8 ####[facility] LABCLIA [id number] [place] [address] [place] Comprehensive metabolic 2000 panelon 02-06-2023 Albumin [Mass/Vol] 3.4 g/dL Low 3.9-4.9 [facility] Comment on above: Order Comment: Speci men Type: BLOOD SPECIMENOrdering Facility: [facility] Address: [address] [place] [address] Performed By: #### 2 4323-8 ####[facility] LABCLIA [id number] [place] [address] [place] ALP [Catalytic activity/Vol] 153 U/L High 38-113 [facility] Comment on above: Order Comment: Speci men Type: BLOOD SPECIMENOrdering Facility: [facility] Address: [address] [place] [address] Performed By: #### 2 4323-8 ####[facility] LABCLIA [id number] [address] [place] ALT [Catalytic activity/Vol] 166 U/L High 10-54 [facility] Comment on above: Order Comment: Speci men Type: BLOOD SPECIMENOrdering Facility: [facility] Address: [address] [place] [address] Performed By: #### 2 4323-8 ####[facility] LABCLIA [id number] [place] [address] [place] Anion gap [Moles/Vol] 9 mmol/L Normal 9-18 [facility] Comment on above: Order Comment: Speci men Type: BLOOD SPECIMENOrdering Facility: [facility] Address: [address] [place] [address] Performed By: #### 2 4323-8 ####[facility] LABCLIA [id number] [place] [address] [place] AST [Catalytic activity/Vol] 105 U/L High 14-40 [facility] Comment on above: Order Comment: Speci men Type: BLOOD SPECIMENOrdering Facility: [facility] Address: [address] [address] Performed By: #### 2 4323-8 ####[facility] LABCLIA [id number] [place] [address] [place] Bilirubin [Mass/Vol] 0.3 mg/dL Normal 0.2-1.3 [facility] Comment on above: Order Comment: Speci men Type: BLOOD SPECIMENOrdering Facility: [facility] Address: [address] [address] Performed By: #### 2 4323-8 ####[facility] LABCLIA [id number] [place] [address] [place] Calcium [Mass/Vol] 8.7 mg/dL Normal 8.5-10.2 [facility] Comment on above: Order Comment: Speci men Type: BLOOD SPECIMENOrdering Facility: [facility] Address: [address] Performed By: #### 2 4323-8 ####[facility] LABCLIA [id number] [place] [address] [place] Chloride [Moles/Vol] 98 mmol/L Normal 97-105 [facility] Comment on above: Order Comment: Speci men Type: BLOOD SPECIMENOrdering Facility: [facility] Address: [address] Performed By: #### 2 4323-8 ####[facility] LABCLIA [id number] [place] [address] [place] CO2 [Moles/Vol] 25 mmol/L Normal 22-30 [facility] Comment on above: Order Comment: Speci men Type: BLOOD SPECIMENOrdering Facility: [facility] Address: [address] Performed By: #### 2 4323-8 ####[facility] LABCLIA [id number] [place] [address] [place] Creatinine [Mass/Vol] 0.84 mg/dL Normal 0.73-1.22 [facility] Comment on above: Order Comment: Alden padilla Type: BLOOD SPECIMENOrdering Facility: [facility] Address: [address] [place] [address] Performed By: #### 2 4323-8 ####[facility] LABIA [id number] [address] [facility] ESTIMATED GLOMERULAR FILTRATION RATE 100 mL/min/1.73m??? Normal >=60 [facility] Comment on above: Order Comment: Alden padilla Type: BLOOD SPECIMENOrdering Facility: [facility] Address: [address] [place] [address] Result Comment: Veronica mated Glomerular Filtration Rate (eGFR) is calculated using the 2020 CKD-EPI creatinine equation. This equation utilizes serum creatinine, sex, and age as parameters. The creatinine assay has traceable calibration to isotope dilution-mass spectrometry. Refer to KDIGO guidelines for clinical interpretation. In patients with unstable renal function, e.g. those with acute kidney injury, the eGFR may not accurately reflect actual GFR. Performed By: #### 2 4323-8 ####[facility] LABIA [id number] [place] [address] [place] Glucose [Mass/Vol] 120 mg/dL High 74-99 [facility] Comment on above: Order Comment: Alden padilla Type: BLOOD SPECIMENOrdering Facility: [facility] Address: [address] [place] [address] Result Comment: The [place] [employer] (ADA) provides guidance for cutoff values for fasting glucose and random glucose. The ADA defines fasting as no caloric intake for at least 8 hours. Fasting plasma glucose results between 100 to 125 mg/dL indicate increased risk for diabetes (prediabetes).Fasting plasma glucose results greater than or equal to 126 mg/dL meet the criteria for diagnosis of diabetes. In the absence of unequivocal hyperglycemia, results should be confirmed by repeat testing. In a patient with classic symptoms of hyperglycemia or hyperglycemic crisis, random plasma glucose results greater than or equal to 200 mg/dL meet the criteria for diagnosis of diabetes.Reference: Standards of Medical Care in Diabetes 2016, [place] [employer]. Diabetes Care. 2016.39(Suppl 1). Performed By: #### 2 4323-8 ####[facility] LABCLIA [id number] [place] [address] [place] Potassium [Moles/Vol] 4.9 mmol/L Normal 3.7-5.1 [facility] Comment on above: Order Comment: Speci men Type: BLOOD SPECIMENOrdering Facility: [facility] Address: [address] [place] [place] [address] Performed By: #### 2 4323-8 ####[facility] LABIA [id number] [place] [address] [place] Protein [Mass/Vol] 7.2 g/dL Normal 6.3-8.0 [facility] Comment on above: Order Comment: Speci men Type: BLOOD SPECIMENOrdering Facility: [facility] Address: [address] Performed By: #### 2 4323-8 ####[facility] LABIA [id number] [place] [address] [place] Sodium [Moles/Vol] 132 mmol/L Low 136-144 [facility] Comment on above: Order Comment: Speci men Type: BLOOD SPECIMENOrdering Facility: [facility] Address: [address] Performed By: #### 2 4323-8 ####[facility] LABIA [id number] [place] [address] [place] Urea nitrogen [Mass/Vol] 22 mg/dL Normal 9-24 [facility] Comment on above: Order Comment: Speci men Type: BLOOD SPECIMENOrdering Facility: [facility] Address: [address] Performed By: #### 2 4323-8 ####[facility] LABCLIA [id number] [place] [address] [place] CBC W Auto Differential pane l (Bld)on 02-05-2023 Basophils (Bld) [#/Vol] 0.15 10*3/uL High <0.11 [facility] Comment on above: Order Comment: Speci men Type: BLOOD SPECIMENOrdering Facility: [facility] Address: [address] [place], [place] [address] Performed By: #### 5 7021-8 ####[facility] LABCLIA [id number] [place] [address] [place] Basophils/100 WBC (Bld) 1.6 % Normal [facility] Comment on above: Order Comment: Speci men Type: BLOOD SPECIMENOrdering Facility: [facility] Address: [address] [place], [place] [address] Performed By: #### 5 7021-8 ####[facility] LABCLIA [id number] [place] [address] [place] [facility] Differential cell count method Nom (Bld) Auto Normal [facility] Comment on above: Order Comment: Speci men Type: BLOOD SPECIMENOrdering Facility: [facility] Address: [address] [place], [place] [address] Performed By: #### 5 7021-8 ####[facility] LABCLIA [id number] [place] [address] [place] Eosinophils (Bld) [#/Vol] 0.12 10*3/uL Normal <0.46 [facility] Comment on above: Order Comment: Speci men Type: BLOOD SPECIMENOrdering Facility: [facility] Address: [address] [place], [place] [address] Performed By: #### 5 7021-8 ####[facility] LABCLIA [id number] [id number] [address] [place] Eosinophils/100 WBC (Bld) 1.3 % Normal [facility] Comment on above: Order Comment: Speci men Type: BLOOD SPECIMENOrdering Facility: [facility] Address: [address] [place] [address] Performed By: #### 5 7021-8 ####[facility] LABCLIA [id number] [place] [address] [place] Erythrocyte distribution width (RBC) [Ratio] 15.9 % High 11.5-15.0 [facility] Comment on above: Order Comment: Speci men Type: BLOOD SPECIMENOrdering Facility: [facility] Address: [address] [place] [address] Performed By: #### 5 7021-8 ####[facility] LABIA [id number] [place] [address] [place] Hematocrit (Bld) [Volume fraction] 24.2 % Low 39.0-51.0 [facility] Comment on above: Order Comment: Speci men Type: BLOOD SPECIMENOrdering Facility: [facility] Address: [address] [place] [address] Performed By: #### 5 7021-8 ####[facility] LABIA [id number] [place] [address] [place] Hemoglobin (Bld) [Mass/Vol] 7.4 g/dL Low 13.0-17.0 [facility] Comment on above: Order Comment: Speci men Type: BLOOD SPECIMENOrdering Facility: [facility] Address: [address] [place], [place] [address] Performed By: #### 5 7021-8 ####[facility] LABIA [id number] [place] [address] [place] Immature granulocytes (Bld) [#/Vol] 0.13 10*3/uL High <0.10 [facility] Comment on above: Order Comment: Speci men Type: BLOOD SPECIMENOrdering Facility: [facility] Address: [address] Performed By: #### 5 7021-8 ####[facility] LABCLIA [id number] [address] STATES [facility] Immature granulocytes/100 WBC (Bld) 1.4 % Normal [facility] Comment on above: Order Comment: Speci men Type: BLOOD SPECIMENOrdering Facility: [facility] Address: [address] [place] [address] Performed By: #### 5 7021-8 ####[facility] LABCLIA [id number] [place] [address] [place] Lymphocytes (Bld) [#/Vol] 1.94 10*3/uL Normal 1.00-4.00 [facility] Comment on above: Order Comment: Speci men Type: BLOOD SPECIMENOrdering Facility: [facility] Address: [address] [place], [place] [address] Performed By: #### 5 7021-8 ####[facility] LABCLIA [id number] [address] STATES [facility] Lymphocytes/100 WBC (Bld) 20.4 % Normal [facility] Comment on above: Order Comment: Speci men Type: BLOOD SPECIMENOrdering Facility: [facility] Address: [address] [place], [place] [address] Performed By: #### 5 7021-8 ####[facility] LABCLIA [id number] [place] [address] [place] MCH (RBC) [Entitic mass] 26.6 pg Normal 26.0-34.0 [facility] Comment on above: Order Comment: Speci men Type: BLOOD SPECIMENOrdering Facility: [facility] Address: [address] [place] [address] Performed By: #### 5 7021-8 ####[facility] LABCLIA [id number] [place] [address] [place] MCHC (RBC) [Mass/Vol] 30.6 g/dL Normal 30.5-36.0 [facility] Comment on above: Order Comment: Speci men Type: BLOOD SPECIMENOrdering Facility: [facility] Address: [address] [place] [address] Performed By: #### 5 7021-8 ####[facility] LABIA [id number] [place] [address] [place] MCV (RBC) [Entitic vol] 87.1 fL Normal 80.0-100.0 [facility] Comment on above: Order Comment: Speci men Type: BLOOD SPECIMENOrdering Facility: [facility] Address: [address] [place] [address] Performed By: #### 5 7021-8 ####[facility] LABIA [id number] [place] [address] [place] Monocytes (Bld) [#/Vol] 0.66 10*3/uL Normal <0.87 [facility] Comment on above: Order Comment: Speci men Type: BLOOD SPECIMENOrdering Facility: [facility] Address: [address] [place] [address] Performed By: #### 5 7021-8 ####[facility] LABIA [id number] [place] [address] [place] Monocytes/100 WBC (Bld) 6.9 % Normal [facility] Comment on above: Order Comment: Speci men Type: BLOOD SPECIMENOrdering Facility: [facility] Address: [address] [place], [place] [address] Performed By: #### 5 7021-8 ####[facility] LABCLIA [id number] [place] [address] [place] Neutrophils (Bld) [#/Vol] 6.50 10*3/uL Normal 1.45-7.50 [facility] Comment on above: Order Comment: Speci men Type: BLOOD SPECIMENOrdering Facility: [facility] Address: [address] Performed By: #### 5 7021-8 ####[facility] LABIA [id number] [address] [place] Neutrophils/100 WBC (Bld) 68.4 % Normal [facility] Comment on above: Order Comment: Speci men Type: BLOOD SPECIMENOrdering Facility: [facility] Address: [address] Performed By: #### 5 7021-8 ####[facility] LABIA [id number] [place] [address] [place] Nucleated RBC (Bld) [#/Vol] 10*3/uL Normal <0.01 [facility] Comment on above: Order Comment: Speci men Type: BLOOD SPECIMENOrdering Facility: [facility] Address: [address] Performed By: #### 5 7021-8 ####[facility] LABIA [id number] [place] [address] [place] Nucleated RBC/100 WBC (Bld) [Ratio] 0.0 /100 WBC Normal [facility] Comment on above: Order Comment: Speci men Type: BLOOD SPECIMENOrdering Facility: [facility] Address: [address] [place] [address] Performed By: #### 5 7021-8 ####[facility] LABIA [id number] [place] [address] [place] Platelet mean volume (Bld) [Entitic vol] 9.7 fL Normal 9.0-12.7 [facility] Comment on above: Order Comment: Speci men Type: BLOOD SPECIMENOrdering Facility: [facility] Address: [address] Performed By: #### 5 7021-8 ####[facility] LABIA [id number] [place] [address] [place] Platelets (Bld) [#/Vol] 576 10*3/uL High 150-400 [facility] Comment on above: Order Comment: Speci men Type: BLOOD SPECIMENOrdering Facility: [facility] Address: [address] [place], [place] [address] Performed By: #### 5 7021-8 ####[facility] [id number] [place] [address] [place] RBC (Bld) [#/Vol] 2.78 10*6/uL Low 4.20-6.00 [facility] Comment on above: Order Comment: Speci men Type: BLOOD SPECIMENOrdering Facility: [facility] Address: [address] [place], [place] [address] Performed By: #### 5 7021-8 ####[facility] [id number] [place] [address] [place] WBC (Bld) [#/Vol] 9.50 10*3/uL Normal 3.70-11.00 [facility] Comment on above: Order Comment: Speci men Type: BLOOD SPECIMENOrdering Facility: [facility] Address: [address] [place], [place] [address] Performed By: #### 5 7021-8 ####[facility] [id number] [place] [id number] [place] CONSULT PROGon 02-05-2023 CONSULT PROG Normal [facility] Comprehensive metabolic 2000 panelon 02-05-2023 Albumin [Mass/Vol] 3.4 g/dL Low 3.9-4.9 [facility] Comment on above: Order Comment: Speci men Type: BLOOD SPECIMENOrdering Facility: [facility] Address: [address] [place], [place] [address] Performed By: #### 2 4323-8 ####[facility] LABCLIA [id number] [place] [address] [place] ALP [Catalytic activity/Vol] 127 U/L High 38-113 [facility] Comment on above: Order Comment: Speci men Type: BLOOD SPECIMENOrdering Facility: [facility] Address: [address] [place] [address] Performed By: #### 2 4323-8 ####[facility] LABCLIA [id number] [place] [address] [place] ALT [Catalytic activity/Vol] 156 U/L High 10-54 [facility] Comment on above: Order Comment: Speci men Type: BLOOD SPECIMENOrdering Facility: [facility] Address: [address] [place] [address] Performed By: #### 2 4323-8 ####[facility] LABCLIA [id number] [place] [address] [place] Anion gap [Moles/Vol] 8 mmol/L Low 9-18 [facility] Comment on above: Order Comment: Speci men Type: BLOOD SPECIMENOrdering Facility: [facility] Address: [address] [place] [address] Performed By: #### 2 4323-8 ####[facility] LABCLIA [id number] [place] [address] [place] AST [Catalytic activity/Vol] 114 U/L High 14-40 [facility] Comment on above: Order Comment: Speci men Type: BLOOD SPECIMENOrdering Facility: [facility] Address: [address] [place] [address] Performed By: #### 2 4323-8 ####[facility] LABCLIA [id number] [place] [address] [place] Bilirubin [Mass/Vol] 0.2 mg/dL Normal 0.2-1.3 [facility] Comment on above: Order Comment: Speci men Type: BLOOD SPECIMENOrdering Facility: [facility] Address: [address] [place] [place] [address] Performed By: #### 2 4323-8 ####[facility] LABCLIA [id number] [place] [address] [place] Calcium [Mass/Vol] 8.4 mg/dL Low 8.5-10.2 [facility] Comment on above: Order Comment: Speci men Type: BLOOD SPECIMENOrdering Facility: [facility] Address: [address] [place] [address] Performed By: #### 2 4323-8 ####[facility] LABCLIA [id number] [place] [address] [place] Chloride [Moles/Vol] 104 mmol/L Normal 97-105 [facility] Comment on above: Order Comment: Speci men Type: BLOOD SPECIMENOrdering Facility: [facility] Address: [address] [place] [place] [address] Performed By: #### 2 4323-8 ####[facility] LABCLIA [id number] [place] [address] [place] CO2 [Moles/Vol] 25 mmol/L Normal 22-30 [facility] Comment on above: Order Comment: Speci men Type: BLOOD SPECIMENOrdering Facility: [facility] Address: [address] Performed By: #### 2 4323-8 ####[facility] LABCLIA [id number] [place] [address] [place] Creatinine [Mass/Vol] 0.83 mg/dL Normal 0.73-1.22 [facility] Comment on above: Order Comment: Speci men Type: BLOOD SPECIMENOrdering Facility: [facility] Address: [address] Performed By: #### 2 4323-8 ####[facility] LABCLIA [id number] [place] [address] [place] ESTIMATED GLOMERULAR FILTRATION RATE 101 mL/min/1.73m??? Normal >=60 [facility] Comment on above: Order Comment: Alden padilla Type: BLOOD SPECIMENOrdering Facility: [facility] Address: [address] [place] [address] Result Comment: Veronica mated Glomerular Filtration Rate (eGFR) is calculated using the 2020 CKD-EPI creatinine equation. This equation utilizes serum creatinine, sex, and age as parameters. The creatinine assay has traceable calibration to isotope dilution-mass spectrometry. Refer to KDIGO guidelines for clinical interpretation. In patients with unstable renal function, e.g. those with acute kidney injury, the eGFR may not accurately reflect actual GFR. Performed By: #### 2 4323-8 ####[facility] LABIA [id number] [place] [address] [place] Glucose [Mass/Vol] 101 mg/dL High 74-99 [facility] Comment on above: Order Comment: Alden padilla Type: BLOOD SPECIMENOrdering Facility: [facility] Address: [address] [place] [place] [address] Result Comment: The [place] [employer] (ADA) provides guidance for cutoff values for fasting glucose and random glucose. The ADA defines fasting as no caloric intake for at least 8 hours. Fasting plasma glucose results between 100 to 125 mg/dL indicate increased risk for diabetes (prediabetes).Fasting plasma glucose results greater than or equal to 126 mg/dL meet the criteria for diagnosis of diabetes. In the absence of unequivocal hyperglycemia, results should be confirmed by repeat testing. In a patient with classic symptoms of hyperglycemia or hyperglycemic crisis, random plasma glucose results greater than or equal to 200 mg/dL meet the criteria for diagnosis of diabetes.Reference: Standards of Medical Care in Diabetes 2016, [place] [employer]. Diabetes Care. 2016.39(Suppl 1). Performed By: #### 2 4323-8 ####[facility] LABIA [id number] [place] [address] [place] Potassium [Moles/Vol] 5.0 mmol/L Normal 3.7-5.1 [facility] Comment on above: Order Comment: Speci men Type: BLOOD SPECIMENOrdering Facility: [facility] Address: [address] Performed By: #### 2 4323-8 ####[facility] LABCLIA [id number] [place] [address] [place] Protein [Mass/Vol] 7.0 g/dL Normal 6.3-8.0 [facility] Comment on above: Order Comment: Speci men Type: BLOOD SPECIMENOrdering Facility: [facility] Address: [address] [place] [address] Performed By: #### 2 4323-8 ####[facility] LABCLIA [id number] [place] [address] [place] Sodium [Moles/Vol] 137 mmol/L Normal 136-144 [facility] Comment on above: Order Comment: Speci men Type: BLOOD SPECIMENOrdering Facility: [facility] Address: [address] [place] [address] Performed By: #### 2 4323-8 ####[facility] LABCLIA [id number] [place] [address] [place] Urea nitrogen [Mass/Vol] 22 mg/dL Normal 9-24 [facility] Comment on above: Order Comment: Speci men Type: BLOOD SPECIMENOrdering Facility: [facility] Address: [address] [place], [place] [address] Performed By: #### 2 4323-8 ####[facility] LABCLIA [id number] [place] [address] [place] TYPE + SCREENon 02-05-2023 ABO A Normal [facility] Comment on above: Order Comment: Speci men Type: BLOOD SPECIMENOrdering Facility: [facility] Address: [address] [place], [place] [address] Performed By: #### T SCR ####[facility] BANKCLIA [id number] [address] HISTORICAL AB SCR STATUS Negative Normal [facility] Comment on above: Order Comment: Speci men Type: BLOOD SPECIMENOrdering Facility: [facility] Address: [address] [place] [address] Performed By: #### T SCR ####[facility] BLOOD BANKCLIA [id number] [address] [place] Rh Nom (Bld) Positive Normal [facility] Comment on above: Order Comment: Speci men Type: BLOOD SPECIMENOrdering Facility: [facility] Address: [address] [place] [address] Performed By: #### T SCR ####[facility] BLOOD BANKCLIA [id number] [address] [facility] TYPE AND SCREEN EXPIRATION 02/08/2023 23:59 Normal [facility] Comment on above: Order Comment: Speci men Type: BLOOD SPECIMENOrdering Facility: [facility] Address: [address] [place] [address] Performed By: #### T SCR ####[facility] BLOOD BANKCLIA [id number] [place] [address] [place] Basic metabolic 2000 panelon 02-04-2023 Anion gap [Moles/Vol] 9 mmol/L Normal 9-18 [facility] Comment on above: Order Comment: Speci men Type: BLOOD SPECIMENOrdering Facility: [facility] Address: [address] [place] [address] Performed By: #### 2 4321-2 ####[facility] LABCLIA [id number] [place] [address] [place] Calcium [Mass/Vol] 8.4 mg/dL Low 8.5-10.2 [facility] Comment on above: Order Comment: Speci men Type: BLOOD SPECIMENOrdering Facility: [facility] Address: [address] [place] [address] Performed By: #### 2 4321-2 ####[facility] LABCLIA [id number] [place] [address] [place] Chloride [Moles/Vol] 104 mmol/L Normal 97-105 [facility] Comment on above: Order Comment: Speci men Type: BLOOD SPECIMENOrdering Facility: [facility] Address: [address] [place] [address] Performed By: #### 2 4321-2 ####[facility] LABCLIA [id number] [place] [address] [place] CO2 [Moles/Vol] 25 mmol/L Normal 22-30 [facility] Comment on above: Order Comment: Speci men Type: BLOOD SPECIMENOrdering Facility: [facility] Address: [address] [place] [address] Performed By: #### 2 4321-2 ####[facility] LABCLIA [id number] [place] [address] [place] Creatinine [Mass/Vol] 0.80 mg/dL Normal 0.73-1.22 [facility] Comment on above: Order Comment: Speci men Type: BLOOD SPECIMENOrdering Facility: [facility] Address: [address] [place] [address] Performed By: #### 2 4321-2 ####[facility] LABCLIA [id number] [place] [address] [place] ESTIMATED GLOMERULAR FILTRATION RATE 102 mL/min/1.73m??? Normal >=60 [facility] Comment on above: Order Comment: Speci men Type: BLOOD SPECIMENOrdering Facility: [facility] Address: [address] [place] [address] Result Comment: Veronica mated Glomerular Filtration Rate (eGFR) is calculated using the 2020 CKD-EPI creatinine equation. This equation utilizes serum creatinine, sex, and age as parameters. The creatinine assay has traceable calibration to isotope dilution-mass spectrometry. Refer to KDIGO guidelines for clinical interpretation. In patients with unstable renal function, e.g. those with acute kidney injury, the eGFR may not accurately reflect actual GFR. Performed By: #### 2 4321-2 ####[facility] LABCLIA [id number] [place] [address] [place] Glucose [Mass/Vol] 121 mg/dL High 74-99 [facility] Comment on above: Order Comment: Alden padilla Type: BLOOD SPECIMENOrdering Facility: [facility] Address: [address] [place] [address] Result Comment: The [place] [employer] (ADA) provides guidance for cutoff values for fasting glucose and random glucose. The ADA defines fasting as no caloric intake for at least 8 hours. Fasting plasma glucose results between 100 to 125 mg/dL indicate increased risk for diabetes (prediabetes).Fasting plasma glucose results greater than or equal to 126 mg/dL meet the criteria for diagnosis of diabetes. In the absence of unequivocal hyperglycemia, results should be confirmed by repeat testing. In a patient with classic symptoms of hyperglycemia or hyperglycemic crisis, random plasma glucose results greater than or equal to 200 mg/dL meet the criteria for diagnosis of diabetes.Reference: Standards of Medical Care in Diabetes 2016, [place] [employer]. Diabetes Care. 2016.39(Suppl 1). Performed By: #### 2 4321-2 ####[facility] LABCLIA [id number] [place] [address] [place] Potassium [Moles/Vol] 4.7 mmol/L Normal 3.7-5.1 [facility] Comment on above: Order Comment: Alden padilla Type: BLOOD SPECIMENOrdering Facility: [facility] Address: [address] [place] [address] Performed By: #### 2 4321-2 ####[facility] LABCLIA [id number] [place] [id number] [place] Sodium [Moles/Vol] 138 mmol/L Normal 136-144 [facility] Comment on above: Order Comment: Speci men Type: BLOOD SPECIMENOrdering Facility: [facility] Address: [address] [place], [place] [address] Performed By: #### 2 4321-2 ####[facility] LABCLIA [id number] [place] [address] [place] Urea nitrogen [Mass/Vol] 17 mg/dL Normal 9-24 [facility] Comment on above: Order Comment: Speci men Type: BLOOD SPECIMENOrdering Facility: [facility] Address: [address] [place], [place] [address] Performed By: #### 2 4321-2 ####[facility] LABIA [id number] [place] [address] [place] CASE MANAGEMon 02-04-2023 CASE MANAGEM Normal [facility] CBC W Auto Differential pane l (Bld)on 02-04-2023 Basophils (Bld) [#/Vol] 0.03 10*3/uL Normal <0.11 [facility] Comment on above: Order Comment: Speci men Type: BLOOD SPECIMENOrdering Facility: [facility] Address: [address] [place], [place] [address] Performed By: #### 5 7021-8 ####[facility] LABCLIA [id number] [place] [address] [place] Basophils/100 WBC (Bld) 0.3 % Normal [facility] Comment on above: Order Comment: Speci men Type: BLOOD SPECIMENOrdering Facility: [facility] Address: [address] [place], [place] [address] Performed By: #### 5 7021-8 ####[facility] LABCLIA [id number] [place] [address] [place] Differential cell count method Nom (Bld) Auto Normal [facility] Comment on above: Order Comment: Speci men Type: BLOOD SPECIMENOrdering Facility: [facility] Address: [address] Performed By: #### 5 7021-8 ####[facility] LABCLIA [id number] [place] [address] [place] Eosinophils (Bld) [#/Vol] 10*3/uL Normal <0.46 [facility] Comment on above: Order Comment: Speci men Type: BLOOD SPECIMENOrdering Facility: [facility] Address: [address] [place] [address] Performed By: #### 5 7021-8 ####[facility] LABCLIA [id number] [address] [place] Eosinophils/100 WBC (Bld) 0.1 % Normal [facility] Comment on above: Order Comment: Speci men Type: BLOOD SPECIMENOrdering Facility: [facility] Address: [address] [place], [place] [address] Performed By: #### 5 7021-8 ####[facility] LABCLIA [id number] [place] [address] [place] Erythrocyte distribution width (RBC) [Ratio] 15.8 % High 11.5-15.0 [facility] Comment on above: Order Comment: Speci men Type: BLOOD SPECIMENOrdering Facility: [facility] Address: [address] [place], [place] [address] Performed By: #### 5 7021-8 ####[facility] LABCLIA [id number] [address] [place] Hematocrit (Bld) [Volume fraction] 22.9 % Low 39.0-51.0 [facility] Comment on above: Order Comment: Speci men Type: BLOOD SPECIMENOrdering Facility: [facility] Address: [address] Performed By: #### 5 7021-8 ####[facility] LABCLIA [id number] [place] [address] [place] Hemoglobin (Bld) [Mass/Vol] 7.3 g/dL Low 13.0-17.0 [facility] Comment on above: Order Comment: Speci men Type: BLOOD SPECIMENOrdering Facility: [facility] Address: [address] [place] [address] Performed By: #### 5 7021-8 ####[facility] LABCLIA [id number] [place] [address] [place] Immature granulocytes (Bld) [#/Vol] 0.09 10*3/uL Normal <0.10 [facility] Comment on above: Order Comment: Speci men Type: BLOOD SPECIMENOrdering Facility: [facility] Address: [address] [place] [address] Performed By: #### 5 7021-8 ####[facility] LABCLIA [id number] [address] STATES OF [facility] Immature granulocytes/100 WBC (Bld) 0.9 % Normal [facility] Comment on above: Order Comment: Speci men Type: BLOOD SPECIMENOrdering Facility: [facility] Address: [address] [place] [address] Performed By: #### 5 7021-8 ####[facility] LABCLIA [id number] [place] [address] [place] Lymphocytes (Bld) [#/Vol] 0.80 10*3/uL Low 1.00-4.00 [facility] Comment on above: Order Comment: Speci men Type: BLOOD SPECIMENOrdering Facility: [facility] Address: [address] [place] [address] Performed By: #### 5 7021-8 ####[facility] LABCLIA [id number] [address] [place] Lymphocytes/100 WBC (Bld) 7.7 % Normal [facility] Comment on above: Order Comment: Speci men Type: BLOOD SPECIMENOrdering Facility: [facility] Address: [address] [place] [address] Performed By: #### 5 7021-8 ####[facility] [id number] [address] MCH (RBC) [Entitic mass] 27.4 pg Normal 26.0-34.0 [facility] Comment on above: Order Comment: Speci men Type: BLOOD SPECIMENOrdering Facility: [facility] Address: [address] Performed By: #### 5 7021-8 ####[facility] [id number] [address] [place] MCHC (RBC) [Mass/Vol] 31.9 g/dL Normal 30.5-36.0 [facility] Comment on above: Order Comment: Speci men Type: BLOOD SPECIMENOrdering Facility: [facility] Address: [address] Performed By: #### 5 7021-8 ####[facility] [id number] [address] [place] MCV (RBC) [Entitic vol] 86.1 fL Normal 80.0-100.0 [facility] Comment on above: Order Comment: Speci men Type: BLOOD SPECIMENOrdering Facility: [facility] Address: [address] [place], [place] [address] Performed By: #### 5 7021-8 ####[facility] [id number] [place] [address] [place] Monocytes (Bld) [#/Vol] 0.25 10*3/uL Normal <0.87 [facility] Comment on above: Order Comment: Speci men Type: BLOOD SPECIMENOrdering Facility: [facility] Address: [address] [place], [place] [address] Performed By: #### 5 7021-8 ####[facility] LABCLIA [id number] [place] [address] [place] Monocytes/100 WBC (Bld) 2.4 % Normal [facility] Comment on above: Order Comment: Speci men Type: BLOOD SPECIMENOrdering Facility: [facility] Address: [address] [place] [address] Performed By: #### 5 7021-8 ####[facility] LABCLIA [id number] [place] [address] [place] Neutrophils (Bld) [#/Vol] 9.18 10*3/uL High 1.45-7.50 [facility] Comment on above: Order Comment: Speci men Type: BLOOD SPECIMENOrdering Facility: [facility] Address: [address] [place] [address] Performed By: #### 5 7021-8 ####[facility] LABCLIA [id number] [place] [address] [place] Neutrophils/100 WBC (Bld) 88.6 % Normal [facility] Comment on above: Order Comment: Speci men Type: BLOOD SPECIMENOrdering Facility: [facility] Address: [address] [place], [place] [address] Performed By: #### 5 7021-8 ####[facility] LABCLIA [id number] [place] [address] [place] Nucleated RBC (Bld) [#/Vol] 10*3/uL Normal <0.01 [facility] Comment on above: Order Comment: Speci men Type: BLOOD SPECIMENOrdering Facility: [facility] Address: [address] [place], [place] [address] Performed By: #### 5 7021-8 ####[facility] LABCLIA [id number] [place] [address] [place] Nucleated RBC/100 WBC (Bld) [Ratio] 0.0 /100 WBC Normal [facility] Comment on above: Order Comment: Speci men Type: BLOOD SPECIMENOrdering Facility: [facility] Address: [address] [place] [address] Performed By: #### 5 7021-8 ####[facility] LABCLIA [id number] [place] [address] [place] Platelet mean volume (Bld) [Entitic vol] 10.0 fL Normal 9.0-12.7 [facility] Comment on above: Order Comment: Speci men Type: BLOOD SPECIMENOrdering Facility: [facility] Address: [address] [place] [address] Performed By: #### 5 7021-8 ####[facility] LABIA [id number] [place] [address] [place] Platelets (Bld) [#/Vol] 510 10*3/uL High 150-400 [facility] Comment on above: Order Comment: Speci men Type: BLOOD SPECIMENOrdering Facility: [facility] Address: [address] [place], [place] [address] Performed By: #### 5 7021-8 ####[facility] LABIA [id number] [place] [address] [place] RBC (Bld) [#/Vol] 2.66 10*6/uL Low 4.20-6.00 [facility] Comment on above: Order Comment: Speci men Type: BLOOD SPECIMENOrdering Facility: [facility] Address: [address] [place], [place] [address] Performed By: #### 5 7021-8 ####[facility] LABCLIA [id number] [place] [address] [place] WBC (Bld) [#/Vol] 10.36 10*3/uL Normal 3.70-11.00 [facility] Comment on above: Order Comment: Speci men Type: BLOOD SPECIMENOrdering Facility: [facility] Address: [address] [place] [address] Performed By: #### 5 7021-8 ####[facility] LABIA [id number] [address] STATES OF [facility] CBC panel Auto (Bld)on 02-04 Erythrocyte distribution width (RBC) [Ratio] 15.9 % High 11.5-15.0 [facility] Comment on above: Order Comment: Speci men Type: BLOOD SPECIMENOrdering Facility: [facility] Address: [address] [place] [address] Performed By: #### 5 8410-2 ####[facility] [id number] [address] [place] Hematocrit (Bld) [Volume fraction] 22.7 % Low 39.0-51.0 [facility] Comment on above: Order Comment: Speci men Type: BLOOD SPECIMENOrdering Facility: [facility] Address: [address] Performed By: #### 5 8410-2 ####[facility] [id number] [address] [place] Hemoglobin (Bld) [Mass/Vol] 7.2 g/dL Low 13.0-17.0 [facility] Comment on above: Order Comment: Speci men Type: BLOOD SPECIMENOrdering Facility: [facility] Address: [address] Performed By: #### 5 8410-2 ####[facility] LABIA [id number] [address] [place] MCH (RBC) [Entitic mass] 27.4 pg Normal 26.0-34.0 [facility] Comment on above: Order Comment: Speci men Type: BLOOD SPECIMENOrdering Facility: [facility] Address: [address] [place], [place] [address] Performed By: #### 5 8410-2 ####[facility] LABIA [id number] [place] [address] [place] MCHC (RBC) [Mass/Vol] 31.7 g/dL Normal 30.5-36.0 [facility] Comment on above: Order Comment: Speci men Type: BLOOD SPECIMENOrdering Facility: [facility] Address: [address] [place], [place] [address] Performed By: #### 5 8410-2 ####[facility] LABIA [id number] [place] [address] [place] MCV (RBC) [Entitic vol] 86.3 fL Normal 80.0-100.0 [facility] Comment on above: Order Comment: Speci men Type: BLOOD SPECIMENOrdering Facility: [facility] Address: [address] [place] [address] Performed By: #### 5 8410-2 ####[facility] [id number] [place] [address] [place] Nucleated RBC (Bld) [#/Vol] 10*3/uL Normal <0.01 [facility] Comment on above: Order Comment: Speci men Type: BLOOD SPECIMENOrdering Facility: [facility] Address: [address] [place], [place] [address] Performed By: #### 5 8410-2 ####[facility] LABIA [id number] [place] [address] [place] Platelet mean volume (Bld) [Entitic vol] 10.1 fL Normal 9.0-12.7 [facility] Comment on above: Order Comment: Speci men Type: BLOOD SPECIMENOrdering Facility: [facility] Address: [address] [place], [place] [address] Performed By: #### 5 8410-2 ####[facility] LABIA [id number] [place] [address] [place] Platelets (Bld) [#/Vol] 542 10*3/uL High 150-400 [facility] Comment on above: Order Comment: Speci men Type: BLOOD SPECIMENOrdering Facility: [facility] Address: [address] [place] [address] Performed By: #### 5 8410-2 ####[facility] LABCLIA [id number] [place] [address] [place] RBC (Bld) [#/Vol] 2.63 10*6/uL Low 4.20-6.00 [facility] Comment on above: Order Comment: Speci men Type: BLOOD SPECIMENOrdering Facility: [facility] Address: [address] [place] [address] Performed By: #### 5 8410-2 ####[facility] LABCLIA [id number] [place] [address] [place] WBC (Bld) [#/Vol] 10.03 10*3/uL Normal 3.70-11.00 [facility] Comment on above: Order Comment: Speci men Type: BLOOD SPECIMENOrdering Facility: [facility] Address: [address] [place] [address] Performed By: #### 5 8410-2 ####[facility] LABCLIA [id number] [place] [address] [place] CNPNon 02-04-2023 CNPN Normal [facility] CONSULTon 02-04-2023 CONSULT Normal [facility] CONSULT PROGon 02-04-2023 CONSULT PROG Normal [facility] CONSULT PROG Normal [facility] Comprehensive metabolic 2000 panelon 02-04-2023 Albumin [Mass/Vol] 3.1 g/dL Low 3.9-4.9 [facility] Comment on above: Order Comment: Speci men Type: BLOOD SPECIMENOrdering Facility: [facility] Address: [address] [place], [place] [address] Performed By: #### 2 4323-8 ####[facility] LABCLIA [id number] [place] [address] [place] ALP [Catalytic activity/Vol] 134 U/L High 38-113 [facility] Comment on above: Order Comment: Speci men Type: BLOOD SPECIMENOrdering Facility: [facility] Address: [address] [place] [address] Performed By: #### 2 4323-8 ####[facility] LABCLIA [id number] [place] [address] [place] ALT [Catalytic activity/Vol] 130 U/L High 10-54 [facility] Comment on above: Order Comment: Speci men Type: BLOOD SPECIMENOrdering Facility: [facility] Address: [address] [place] [address] Performed By: #### 2 4323-8 ####[facility] LABCLIA [id number] [place] [address] [place] Anion gap [Moles/Vol] 9 mmol/L Normal 9-18 [facility] Comment on above: Order Comment: Speci men Type: BLOOD SPECIMENOrdering Facility: [facility] Address: [address] [place] [address] Performed By: #### 2 4323-8 ####[facility] LABCLIA [id number] [place] [address] [place] AST [Catalytic activity/Vol] 45 U/L High 14-40 [facility] Comment on above: Order Comment: Speci men Type: BLOOD SPECIMENOrdering Facility: [facility] Address: [address] [place] [address] Performed By: #### 2 4323-8 ####[facility] LABCLIA [id number] [place] [address] [place] Bilirubin [Mass/Vol] 0.3 mg/dL Normal 0.2-1.3 [facility] Comment on above: Order Comment: Speci men Type: BLOOD SPECIMENOrdering Facility: [facility] Address: [address] [place] [address] Performed By: #### 2 4323-8 ####[facility] LABCLIA [id number] [place] [address] [place] Calcium [Mass/Vol] 8.4 mg/dL Low 8.5-10.2 [facility] Comment on above: Order Comment: Speci men Type: BLOOD SPECIMENOrdering Facility: [facility] Address: [address] [place] [address] Performed By: #### 2 4323-8 ####[facility] LABCLIA [id number] [place] [address] [place] Chloride [Moles/Vol] 103 mmol/L Normal 97-105 [facility] Comment on above: Order Comment: Speci men Type: BLOOD SPECIMENOrdering Facility: [facility] Address: [address] [place] [address] Performed By: #### 2 4323-8 ####[facility] LABCLIA [id number] [place] [address] [place] CO2 [Moles/Vol] 23 mmol/L Normal 22-30 [facility] Comment on above: Order Comment: Speci men Type: BLOOD SPECIMENOrdering Facility: [facility] Address: [address] Performed By: #### 2 4323-8 ####[facility] LABCLIA [id number] [place] [address] [place] Creatinine [Mass/Vol] 0.85 mg/dL Normal 0.73-1.22 [facility] Comment on above: Order Comment: Speci men Type: BLOOD SPECIMENOrdering Facility: [facility] Address: [address] Performed By: #### 2 4323-8 ####[facility] LABCLIA [id number] [place] [address] [place] ESTIMATED GLOMERULAR FILTRATION RATE 100 mL/min/1.73m??? Normal >=60 [facility] Comment on above: Order Comment: Alden padilla Type: BLOOD SPECIMENOrdering Facility: [facility] Address: [address] [place] [address] Result Comment: Veronica mated Glomerular Filtration Rate (eGFR) is calculated using the 2020 CKD-EPI creatinine equation. This equation utilizes serum creatinine, sex, and age as parameters. The creatinine assay has traceable calibration to isotope dilution-mass spectrometry. Refer to KDIGO guidelines for clinical interpretation. In patients with unstable renal function, e.g. those with acute kidney injury, the eGFR may not accurately reflect actual GFR. Performed By: #### 2 4323-8 ####[facility] LABIA [id number] [place] [address] [place] Glucose [Mass/Vol] 166 mg/dL High 74-99 [facility] Comment on above: Order Comment: Alden padilla Type: BLOOD SPECIMENOrdering Facility: [facility] Address: [address] [place] [address] Result Comment: The [place] [employer] (ADA) provides guidance for cutoff values for fasting glucose and random glucose. The ADA defines fasting as no caloric intake for at least 8 hours. Fasting plasma glucose results between 100 to 125 mg/dL indicate increased risk for diabetes (prediabetes).Fasting plasma glucose results greater than or equal to 126 mg/dL meet the criteria for diagnosis of diabetes. In the absence of unequivocal hyperglycemia, results should be confirmed by repeat testing. In a patient with classic symptoms of hyperglycemia or hyperglycemic crisis, random plasma glucose results greater than or equal to 200 mg/dL meet the criteria for diagnosis of diabetes.Reference: Standards of Medical Care in Diabetes 2016, [place] [employer]. Diabetes Care. 2016.39(Suppl 1). Performed By: #### 2 4323-8 ####[facility] LABIA [id number] [place] [address] [place] Potassium [Moles/Vol] 5.3 mmol/L High 3.7-5.1 [facility] Comment on above: Order Comment: Speci men Type: BLOOD SPECIMENOrdering Facility: [facility] Address: [address] [place], [place] [address] Performed By: #### 2 4323-8 ####[facility] LABCLIA [id number] [place] [address] [place] Protein [Mass/Vol] 6.3 g/dL Normal 6.3-8.0 [facility] Comment on above: Order Comment: Speci men Type: BLOOD SPECIMENOrdering Facility: [facility] Address: [address] [place] [address] Performed By: #### 2 4323-8 ####[facility] LABCLIA [id number] [place] [address] [place] Sodium [Moles/Vol] 135 mmol/L Low 136-144 [facility] Comment on above: Order Comment: Speci men Type: BLOOD SPECIMENOrdering Facility: [facility] Address: [address] [place] [address] Performed By: #### 2 4323-8 ####[facility] LABCLIA [id number] [place] [address] [place] Urea nitrogen [Mass/Vol] 19 mg/dL Normal 9-24 [facility] Comment on above: Order Comment: Speci men Type: BLOOD SPECIMENOrdering Facility: [facility] Address: [address] [id number] Performed By: #### 2 4323-8 ####[facility] LABCLIA [id number] [place] [address] [place] NURSING PROGon 02-04-2023 NURSING PROG Normal [facility] THERAPY NTon 02-04-2023 THERAPY NT Normal [facility] ANES POSTPROC EVALon 023 ANES POSTPROC EVAL Normal [facility] ANES PRE-OPon 02-03-2023 ANES PRE-OP Normal [facility] BRIEF OP NOTon 02-03-2023 BRIEF OP NOT Normal [facility] Basic metabolic 2000 panelon 02-03-2023 Anion gap [Moles/Vol] 9 mmol/L Normal 9-18 [facility] Comment on above: Order Comment: Speci men Type: BLOOD SPECIMENOrdering Facility: [facility] Address: [address] Performed By: #### 2 4321-2 ####[facility] LABCLIA [id number] [place] [address] [place] Calcium [Mass/Vol] 8.0 mg/dL Low 8.5-10.2 [facility] Comment on above: Order Comment: Speci men Type: BLOOD SPECIMENOrdering Facility: [facility] Address: [address] [place], [place] [address] Performed By: #### 2 4321-2 ####[facility] LABCLIA [id number] [place] [address] [place] Chloride [Moles/Vol] 100 mmol/L Normal 97-105 [facility] Comment on above: Order Comment: Speci men Type: BLOOD SPECIMENOrdering Facility: [facility] Address: [address] [place], [place] [address] Performed By: #### 2 4321-2 ####[facility] LABCLIA [id number] [place] [address] [place] CO2 [Moles/Vol] 24 mmol/L Normal 22-30 [facility] Comment on above: Order Comment: Speci men Type: BLOOD SPECIMENOrdering Facility: [facility] Address: [address] [place], [place] [address] Performed By: #### 2 4321-2 ####[facility] LABCLIA [id number] [place] [address] [place] Creatinine [Mass/Vol] 0.82 mg/dL Normal 0.73-1.22 [facility] Comment on above: Order Comment: Alden padilla Type: BLOOD SPECIMENOrdering Facility: [facility] Address: [address] [address] Performed By: #### 2 4321-2 ####[facility] LABCLIA [id number] [address] ESTIMATED GLOMERULAR FILTRATION RATE 101 mL/min/1.73m??? Normal >=60 [facility] Comment on above: Order Comment: Alden padilla Type: BLOOD SPECIMENOrdering Facility: [facility] Address: [address] [address] Result Comment: Veronica mated Glomerular Filtration Rate (eGFR) is calculated using the 2020 CKD-EPI creatinine equation. This equation utilizes serum creatinine, sex, and age as parameters. The creatinine assay has traceable calibration to isotope dilution-mass spectrometry. Refer to KDIGO guidelines for clinical interpretation. In patients with unstable renal function, e.g. those with acute kidney injury, the eGFR may not accurately reflect actual GFR. Performed By: #### 2 4321-2 ####[facility] LABCLIA [id number] [address] [place] Glucose [Mass/Vol] 101 mg/dL High 74-99 [facility] Comment on above: Order Comment: Alden padilla Type: BLOOD SPECIMENOrdering Facility: [facility] Address: [address] [address] Result Comment: The [place] [employer] (ADA) provides guidance for cutoff values for fasting glucose and random glucose. The ADA defines fasting as no caloric intake for at least 8 hours. Fasting plasma glucose results between 100 to 125 mg/dL indicate increased risk for diabetes (prediabetes).Fasting plasma glucose results greater than or equal to 126 mg/dL meet the criteria for diagnosis of diabetes. In the absence of unequivocal hyperglycemia, results should be confirmed by repeat testing. In a patient with classic symptoms of hyperglycemia or hyperglycemic crisis, random plasma glucose results greater than or equal to 200 mg/dL meet the criteria for diagnosis of diabetes.Reference: Standards of Medical Care in Diabetes 2016, [place] [employer]. Diabetes Care. 2016.39(Suppl 1). Performed By: #### 2 4321-2 ####[facility] LABIA [id number] [place] [address] [place] Potassium [Moles/Vol] 4.8 mmol/L Normal 3.7-5.1 [facility] Comment on above: Order Comment: Speci men Type: BLOOD SPECIMENOrdering Facility: [facility] Address: [address] [address] Performed By: #### 2 4321-2 ####[facility] LABIA [id number] [place] [address] [place] Sodium [Moles/Vol] 133 mmol/L Low 136-144 [facility] Comment on above: Order Comment: Speci men Type: BLOOD SPECIMENOrdering Facility: [facility] Address: [address] [address] Performed By: #### 2 4321-2 ####[facility] LABIA [id number] [place] [address] [place] Urea nitrogen [Mass/Vol] 16 mg/dL Normal 9-24 [facility] Comment on above: Order Comment: Speci men Type: BLOOD SPECIMENOrdering Facility: [facility] Address: [address] [address] Performed By: #### 2 4321-2 ####[facility] LABIA [id number] [place] [address] [place] CBC W Auto Differential pane l (Bld)on 02-03-2023 Basophils (Bld) [#/Vol] 0.19 10*3/uL High <0.11 [facility] Comment on above: Order Comment: Speci men Type: BLOOD SPECIMENOrdering Facility: [facility] Address: [address] [address] Performed By: #### 5 7021-8 ####[facility] LABCLIA [id number] [place] [address] [place] Basophils/100 WBC (Bld) 2.3 % Normal [facility] Comment on above: Order Comment: Speci men Type: BLOOD SPECIMENOrdering Facility: [facility] Address: [address] [place] [address] Performed By: #### 5 7021-8 ####[facility] LABCLIA [id number] [place] [address] [place] Differential cell count method Nom (Bld) Auto Normal [facility] Comment on above: Order Comment: Speci men Type: BLOOD SPECIMENOrdering Facility: [facility] Address: [address] [place] [address] Performed By: #### 5 7021-8 ####[facility] LABCLIA [id number] [place] [address] [place] Eosinophils (Bld) [#/Vol] 0.12 10*3/uL Normal <0.46 [facility] Comment on above: Order Comment: Speci men Type: BLOOD SPECIMENOrdering Facility: [facility] Address: [address] [place] [address] Performed By: #### 5 7021-8 ####[facility] LABCLIA [id number] [address] [place] Eosinophils/100 WBC (Bld) 1.5 % Normal [facility] Comment on above: Order Comment: Speci men Type: BLOOD SPECIMENOrdering Facility: [facility] Address: [address] [place], [place] [address] Performed By: #### 5 7021-8 ####[facility] LABCLIA [id number] [place] [address] [place] Erythrocyte distribution width (RBC) [Ratio] 16.0 % High 11.5-15.0 [facility] Comment on above: Order Comment: Speci men Type: BLOOD SPECIMENOrdering Facility: [facility] Address: [address] Performed By: #### 5 7021-8 ####[facility] LABIA [id number] [place] [address] [place] Hematocrit (Bld) [Volume fraction] 29.7 % Low 39.0-51.0 [facility] Comment on above: Order Comment: Speci men Type: BLOOD SPECIMENOrdering Facility: [facility] Address: [address] Performed By: #### 5 7021-8 ####[facility] LABIA [id number] [place] [address] [place] Hemoglobin (Bld) [Mass/Vol] 9.0 g/dL Low 13.0-17.0 [facility] Comment on above: Order Comment: Speci men Type: BLOOD SPECIMENOrdering Facility: [facility] Address: [address] Performed By: #### 5 7021-8 ####[facility] LABIA [id number] [address] [place] Immature granulocytes (Bld) [#/Vol] 0.07 10*3/uL Normal <0.10 [facility] Comment on above: Order Comment: Speci men Type: BLOOD SPECIMENOrdering Facility: [facility] Address: [address] Performed By: #### 5 7021-8 ####[facility] LABIA [id number] [address] [place] Immature granulocytes/100 WBC (Bld) 0.8 % Normal [facility] Comment on above: Order Comment: Speci men Type: BLOOD SPECIMENOrdering Facility: [facility] Address: [address] Performed By: #### 5 7021-8 ####[facility] LABCLIA [id number] [place] [address] [place] Lymphocytes (Bld) [#/Vol] 1.34 10*3/uL Normal 1.00-4.00 [facility] Comment on above: Order Comment: Speci men Type: BLOOD SPECIMENOrdering Facility: [facility] Address: [address] [place] [address] Performed By: #### 5 7021-8 ####[facility] LABIA [id number] [address] [place] Lymphocytes/100 WBC (Bld) 16.2 % Normal [facility] Comment on above: Order Comment: Speci men Type: BLOOD SPECIMENOrdering Facility: [facility] Address: [address] [place] [address] Performed By: #### 5 7021-8 ####[facility] LABIA [id number] [address] [place] MCH (RBC) [Entitic mass] 27.0 pg Normal 26.0-34.0 [facility] Comment on above: Order Comment: Speci men Type: BLOOD SPECIMENOrdering Facility: [facility] Address: [address] [place] [address] Performed By: #### 5 7021-8 ####[facility] LABIA [id number] [address] [place] MCHC (RBC) [Mass/Vol] 30.3 g/dL Low 30.5-36.0 [facility] Comment on above: Order Comment: Speci men Type: BLOOD SPECIMENOrdering Facility: [facility] Address: [address] [place] [address] Performed By: #### 5 7021-8 ####[facility] LABIA [id number] [id number] [address] [place] MCV (RBC) [Entitic vol] 89.2 fL Normal 80.0-100.0 [facility] Comment on above: Order Comment: Speci men Type: BLOOD SPECIMENOrdering Facility: [facility] Address: [address] [place] [address] Performed By: #### 5 7021-8 ####[facility] LABCLIA [id number] [place] [address] [place] Monocytes (Bld) [#/Vol] 0.54 10*3/uL Normal <0.87 [facility] Comment on above: Order Comment: Speci men Type: BLOOD SPECIMENOrdering Facility: [facility] Address: [address] [place] [address] Performed By: #### 5 7021-8 ####[facility] LABCLIA [id number] [place] [address] [place] Monocytes/100 WBC (Bld) 6.5 % Normal [facility] Comment on above: Order Comment: Speci men Type: BLOOD SPECIMENOrdering Facility: [facility] Address: [address] [place], [place] [address] Performed By: #### 5 7021-8 ####[facility] LABCLIA [id number] [place] [address] [place] Neutrophils (Bld) [#/Vol] 5.99 10*3/uL Normal 1.45-7.50 [facility] Comment on above: Order Comment: Speci men Type: BLOOD SPECIMENOrdering Facility: [facility] Address: [address] [place], [place] [address] Performed By: #### 5 7021-8 ####[facility] LABCLIA [id number] [place] [address] [place] Neutrophils/100 WBC (Bld) 72.7 % Normal [facility] Comment on above: Order Comment: Speci men Type: BLOOD SPECIMENOrdering Facility: [facility] Address: [address] [place] [address], [place] [address] Performed By: #### 5 7021-8 ####[facility] LABCLIA [id number] [place] [address] [place] Nucleated RBC (Bld) [#/Vol] 10*3/uL Normal <0.01 [facility] Comment on above: Order Comment: Speci men Type: BLOOD SPECIMENOrdering Facility: [facility] Address: [address] [place] [address] Performed By: #### 5 7021-8 ####[facility] LABCLIA [id number] [place] [address] [place] Nucleated RBC/100 WBC (Bld) [Ratio] 0.0 /100 WBC Normal [facility] Comment on above: Order Comment: Speci men Type: BLOOD SPECIMENOrdering Facility: [facility] Address: [address] Performed By: #### 5 7021-8 ####[facility] LABIA [id number] [place] [address] [place] Platelet mean volume (Bld) [Entitic vol] 9.6 fL Normal 9.0-12.7 [facility] Comment on above: Order Comment: Speci men Type: BLOOD SPECIMENOrdering Facility: [facility] Address: [address] [place] [address] Performed By: #### 5 7021-8 ####[facility] LABCLIA [id number] [place] [address] [place] Platelets (Bld) [#/Vol] 560 10*3/uL High 150-400 [facility] Comment on above: Order Comment: Speci men Type: BLOOD SPECIMENOrdering Facility: [facility] Address: [address] [place] [address] Performed By: #### 5 7021-8 ####[facility] LABCLIA [id number] [place] [address] [place] RBC (Bld) [#/Vol] 3.33 10*6/uL Low 4.20-6.00 [facility] Comment on above: Order Comment: Speci men Type: BLOOD SPECIMENOrdering Facility: [facility] Address: [address] [place] [address] Performed By: #### 5 7021-8 ####[facility] LABCLIA [id number] [place] [address] [place] WBC (Bld) [#/Vol] 8.25 10*3/uL Normal 3.70-11.00 [facility] Comment on above: Order Comment: Speci men Type: BLOOD SPECIMENOrdering Facility: [facility] Address: [address] [place] [address] Performed By: #### 5 7021-8 ####[facility] LABCLIA [id number] [place] [address] [place] CONSULT PROGon 02-03-2023 CONSULT PROG Normal [facility] Comprehensive metabolic 2000 panelon 02-03-2023 Albumin [Mass/Vol] 2.4 g/dL Low 3.9-4.9 [facility] Comment on above: Order Comment: Speci men Type: BLOOD SPECIMENOrdering Facility: [facility] Address: [address] [place], [place] [address] Performed By: #### 2 4323-8 ####[facility] LABCLIA [id number] [place] [address] [place] ALP [Catalytic activity/Vol] 153 U/L High 38-113 [facility] Comment on above: Order Comment: Speci men Type: BLOOD SPECIMENOrdering Facility: [facility] Address: [address] [place] [address] Performed By: #### 2 4323-8 ####[facility] LABCLIA [id number] [address] [id number] [address] [place] ALT [Catalytic activity/Vol] 221 U/L High 10-54 [facility] Comment on above: Order Comment: Speci men Type: BLOOD SPECIMENOrdering Facility: [facility] Address: [address] [address] Performed By: #### 2 4323-8 ####[facility] LABCLIA [id number] [place] [address] [place] Anion gap [Moles/Vol] 15 mmol/L Normal 9-18 [facility] Comment on above: Order Comment: Speci men Type: BLOOD SPECIMENOrdering Facility: [facility] Address: [address] [place] [address] Performed By: #### 2 4323-8 ####[facility] LABCLIA [id number] [place] [address] [place] AST [Catalytic activity/Vol] 120 U/L High 14-40 [facility] Comment on above: Order Comment: Speci men Type: BLOOD SPECIMENOrdering Facility: [facility] Address: [address] [place] [address] Performed By: #### 2 4323-8 ####[facility] LABCLIA [id number] [place] [address] [place] Bilirubin [Mass/Vol] 0.2 mg/dL Normal 0.2-1.3 [facility] Comment on above: Order Comment: Speci men Type: BLOOD SPECIMENOrdering Facility: [facility] Address: [address] Performed By: #### 2 4323-8 ####[facility] LABCLIA [id number] [place] [address] [place] Calcium [Mass/Vol] 8.1 mg/dL Low 8.5-10.2 [facility] Comment on above: Order Comment: Speci men Type: BLOOD SPECIMENOrdering Facility: [facility] Address: [address] Performed By: #### 2 4323-8 ####[facility] LABCLIA [id number] [place] [address] [place] Chloride [Moles/Vol] 100 mmol/L Normal 97-105 [facility] Comment on above: Order Comment: Speci men Type: BLOOD SPECIMENOrdering Facility: [facility] Address: [address] [place] [address] Performed By: #### 2 4323-8 ####[facility] LABCLIA [id number] [place] [address] [place] CO2 [Moles/Vol] 17 mmol/L Low 22-30 [facility] Comment on above: Order Comment: Speci men Type: BLOOD SPECIMENOrdering Facility: [facility] Address: [address] [place] [address] Performed By: #### 2 4323-8 ####[facility] LABCLIA [id number] [place] [address] [place] Creatinine [Mass/Vol] 0.88 mg/dL Normal 0.73-1.22 [facility] Comment on above: Order Comment: Speci men Type: BLOOD SPECIMENOrdering Facility: [facility] Address: [address] [place], [place] [address] Performed By: #### 2 4323-8 ####[facility] LABIA [id number] [place] [address] [place] ESTIMATED GLOMERULAR FILTRATION RATE 99 mL/min/1.73m??? Normal >=60 [facility] Comment on above: Order Comment: Speci men Type: BLOOD SPECIMENOrdering Facility: [facility] Address: [address] [place] [address] Result Comment: Veronica mated Glomerular Filtration Rate (eGFR) is calculated using the 2020 CKD-EPI creatinine equation. This equation utilizes serum creatinine, sex, and age as parameters. The creatinine assay has traceable calibration to isotope dilution-mass spectrometry. Refer to KDIGO guidelines for clinical interpretation. In patients with unstable renal function, e.g. those with acute kidney injury, the eGFR may not accurately reflect actual GFR. Performed By: #### 2 4323-8 ####[facility] LABCLIA [id number] [place] [address] [place] Glucose [Mass/Vol] 104 mg/dL High 74-99 [facility] Comment on above: Order Comment: Speci men Type: BLOOD SPECIMENOrdering Facility: [facility] Address: [address] [id number] Result Comment: The [place] [employer] (ADA) provides guidance for cutoff values for fasting glucose and random glucose. The ADA defines fasting as no caloric intake for at least 8 hours. Fasting plasma glucose results between 100 to 125 mg/dL indicate increased risk for diabetes (prediabetes).Fasting plasma glucose results greater than or equal to 126 mg/dL meet the criteria for diagnosis of diabetes. In the absence of unequivocal hyperglycemia, results should be confirmed by repeat testing. In a patient with classic symptoms of hyperglycemia or hyperglycemic crisis, random plasma glucose results greater than or equal to 200 mg/dL meet the criteria for diagnosis of diabetes.Reference: Standards of Medical Care in Diabetes 2016, [place] [employer]. Diabetes Care. 2016.39(Suppl 1). Performed By: #### 2 4323-8 ####[facility] LABCLIA [id number] [place] [address] [place] Potassium [Moles/Vol] 5.7 mmol/L High 3.7-5.1 [facility] Comment on above: Order Comment: Speci men Type: BLOOD SPECIMENOrdering Facility: [facility] Address: [address] [place] [address] Performed By: #### 2 4323-8 ####[facility] LABCLIA [id number] [facility] [place] [id number] [place] Protein [Mass/Vol] 6.2 g/dL Low 6.3-8.0 [facility] Comment on above: Order Comment: Speci men Type: BLOOD SPECIMENOrdering Facility: [facility] Address: [address] Performed By: #### 2 4323-8 ####[facility] LABCLIA [id number] [place] [address] [place] Sodium [Moles/Vol] 132 mmol/L Low 136-144 [facility] Comment on above: Order Comment: Speci men Type: BLOOD SPECIMENOrdering Facility: [facility] Address: [address] Performed By: #### 2 4323-8 ####[facility] LABCLIA [id number] [place] [address] [place] Urea nitrogen [Mass/Vol] 18 mg/dL Normal 9-24 [facility] Comment on above: Order Comment: Speci men Type: BLOOD SPECIMENOrdering Facility: [facility] Address: [address] Performed By: #### 2 4323-8 ####[facility] LABCLIA [id number] [place] [address] [place] NUTRITIONon 02-03-2023 NUTRITION Normal [facility] OPERATIVE NOon 02-03-2023 OPERATIVE NO Normal [facility] PT EDon 02-03-2023 PT ED Normal [facility] VENOUS BLOOD GASES WITH IONI ZED MAGNESIUMon 02-03-2023 BASE DEFICIT, VENOUS -1 mmol/L Normal -2-0 [facility] Comment on above: Order Comment: Speci men Type: VENOUS BLOOD SPECIMENOrdering Facility: [facility] Address: [address] Performed By: #### V ALLMG ####[facility] LABCLIA [id number] [place] [address] [place] Calcium.ionized (Bld) [Mass/Vol] 1.15 mmol/L Normal 1.08-1.30 [facility] Comment on above: Order Comment: Speci men Type: VENOUS BLOOD SPECIMENOrdering Facility: [facility] Address: [address] [place] [address] Performed By: #### V ALLMG ####[facility] LABIA [id number] [place] [address] [place] Calcium.ionized adjusted to pH 7.4 (BldA) [Moles/Vol] 1.07 mmol/L Low 1.08-1.30 [facility] Comment on above: Order Comment: Speci men Type: VENOUS BLOOD SPECIMENOrdering Facility: [facility] Address: [address] [place] [address] Performed By: #### V ALLMG ####[facility] LABIA [id number] [place] [address] [place] Carboxyhemoglobin (BldV) [Mass fraction] 1.6 % Normal 0.0-2.0 [facility] Comment on above: Order Comment: Speci men Type: VENOUS BLOOD SPECIMENOrdering Facility: [facility] Address: [address] [place] [address] Result Comment: Carb oxyhemoglobin Reference Range for Smokers: 2.0-8.0% Performed By: #### V ALLMG ####[facility] [id number] [place] [address] [place] CO2 (BldV) [Partial pressure] 57 mm[Hg] High 42-55 [facility] Comment on above: Order Comment: Speci men Type: VENOUS BLOOD SPECIMENOrdering Facility: [facility] Address: [address] [address] Performed By: #### V ALLMG ####[facility] LABIA [id number] [place] [address] [place] CO2 [Moles/Vol] 27 mmol/L Normal 25-29 [facility] Comment on above: Order Comment: Speci men Type: VENOUS BLOOD SPECIMENOrdering Facility: [facility] Address: [address] Performed By: #### V ALLMG ####[facility] LABCLIA [id number] [address] [place] CO2 adjusted to patient's actual temperature (BldV) [Partial pressure] 57 mmHg High 42-55 [facility] Comment on above: Order Comment: Speci men Type: VENOUS BLOOD SPECIMENOrdering Facility: [facility] Address: [address] Performed By: #### V ALLMG ####[facility] LABCLIA [id number] [place] [address] [place] Glucose [Mass/Vol] 119 mg/dL High 60-105 [facility] Comment on above: Order Comment: Speci men Type: VENOUS BLOOD SPECIMENOrdering Facility: [facility] Address: [address] [place], [place] [address] Performed By: #### V ALLMG ####[facility] LABCLIA [id number] [place] [address] [place] HCO3 (Bld) [Moles/Vol] 26 mmol/L Normal 24-28 [facility] Comment on above: Order Comment: Speci men Type: VENOUS BLOOD SPECIMENOrdering Facility: [facility] Address: [address] Performed By: #### V ALLMG ####[facility] LABCLIA [id number] [place] [address] [place] Hematocrit (Bld) [Volume fraction] 23.6 % Low 39.0-51.0 [facility] Comment on above: Order Comment: Speci men Type: VENOUS BLOOD SPECIMENOrdering Facility: [facility] Address: [address] Performed By: #### V ALLMG ####[facility] LABCLIA [id number] [place] [address] [place] Hemoglobin (Bld) [Mass/Vol] 7.6 g/dL Low 13.0-17.0 [facility] Comment on above: Order Comment: Speci men Type: VENOUS BLOOD SPECIMENOrdering Facility: [facility] Address: [address] [place] [address] Performed By: #### V ALLMG ####[facility] LABCLIA [id number] [place] [address] [place] Lactate [Moles/Vol] 0.7 mmol/L Normal 0.5-2.2 [facility] Comment on above: Order Comment: Speci men Type: VENOUS BLOOD SPECIMENOrdering Facility: [facility] Address: [address] [place] [address] Performed By: #### V ALLMG ####[facility] LABIA [id number] [place] [address] [place] Magnesium [Moles/Vol] 0.55 mmol/L Normal 0.45-0.60 [facility] Comment on above: Order Comment: Speci men Type: VENOUS BLOOD SPECIMENOrdering Facility: [facility] Address: [address] [place] [address] Performed By: #### V ALLMG ####[facility] LABIA [id number] [place] [address] [place] Methemoglobin (Bld) [Mass fraction] 1.8 % High 0.0-1.5 [facility] Comment on above: Order Comment: Speci men Type: VENOUS BLOOD SPECIMENOrdering Facility: [facility] Address: [address] [place], [place] [address] Performed By: #### V ALLMG ####[facility] LABIA [id number] [place] [address] [place] Oxygen (BldV) [Partial pressure] 99 mm[Hg] High 35-45 [facility] Comment on above: Order Comment: Speci men Type: VENOUS BLOOD SPECIMENOrdering Facility: [facility] Address: [address] Performed By: #### V ALLMG ####[facility] LABCLIA [id number] [place] [address] [place] Oxygen adjusted to patient's actual temperature (BldV) [Partial pressure] 99 mmHg High 35-45 [facility] Comment on above: Order Comment: Speci men Type: VENOUS BLOOD SPECIMENOrdering Facility: [facility] Address: [address] Performed By: #### V ALLMG ####[facility] LABCLIA [id number] [place] [address] [place] Oxygen saturation in Venous blood 97 % High 60-85 [facility] Comment on above: Order Comment: Speci men Type: VENOUS BLOOD SPECIMENOrdering Facility: [facility] Address: [address] [place], [place] [address] Performed By: #### V ALLMG ####[facility] LABCLIA [id number] [place] [address] [place] Oxyhemoglobin (BldV) [Mass fraction] 94 % High 60-85 [facility] Comment on above: Order Comment: Speci men Type: VENOUS BLOOD SPECIMENOrdering Facility: [facility] Address: [address] Performed By: #### V ALLMG ####[facility] LABCLIA [id number] [place] [address] [place] pH (BldV) 7.27 [pH] Low 7.32-7.42 [facility] Comment on above: Order Comment: Speci men Type: VENOUS BLOOD SPECIMENOrdering Facility: [facility] Address: [address] [place], [place] [address] Performed By: #### V ALLMG ####[facility] LABCLIA [id number] [place] [address] [place] pH adjusted to patient's actual temperature (BldV) 7.27 Low 7.32-7.42 [facility] Comment on above: Order Comment: Speci men Type: VENOUS BLOOD SPECIMENOrdering Facility: [facility] Address: [address] [place] [address] Performed By: #### V ALLMG ####[facility] LABCLIA [id number] [place] [address] [place] Potassium [Moles/Vol] 4.7 mmol/L Normal 3.5-5.0 [facility] Comment on above: Order Comment: Speci men Type: VENOUS BLOOD SPECIMENOrdering Facility: [facility] Address: [address] [place] [address] Performed By: #### V ALLMG ####[facility] LABIA [id number] [place] [address] [place] Sodium [Moles/Vol] 135 mmol/L Low 136-144 [facility] Comment on above: Order Comment: Speci men Type: VENOUS BLOOD SPECIMENOrdering Facility: [facility] Address: [address] [place] [address] Performed By: #### V ALLMG ####[facility] LABCLIA [id number] [place] [address] [place] CBC W Auto Differential pane l (Bld)on 02-02-2023 Basophils (Bld) [#/Vol] 0.11 10*3/uL High <0.11 [facility] Comment on above: Order Comment: Speci men Type: BLOOD SPECIMENOrdering Facility: [facility] Address: [address] [place] [address] Performed By: #### 5 7021-8 ####[facility] LABCLIA [id number] [place] [address] [place] Basophils/100 WBC (Bld) 2.2 % Normal [facility] Comment on above: Order Comment: Speci men Type: BLOOD SPECIMENOrdering Facility: [facility] Address: [address] Performed By: #### 5 7021-8 ####[facility] LABCLIA [id number] [place] [address] [place] Differential cell count method Nom (Bld) Auto Normal [facility] Comment on above: Order Comment: Speci men Type: BLOOD SPECIMENOrdering Facility: [facility] Address: [address] Performed By: #### 5 7021-8 ####[facility] LABIA [id number] [place] [address] [place] Eosinophils (Bld) [#/Vol] 0.10 10*3/uL Normal <0.46 [facility] Comment on above: Order Comment: Speci men Type: BLOOD SPECIMENOrdering Facility: [facility] Address: [address] Performed By: #### 5 7021-8 ####[facility] LABIA [id number] [address] [place] Eosinophils/100 WBC (Bld) 2.0 % Normal [facility] Comment on above: Order Comment: Speci men Type: BLOOD SPECIMENOrdering Facility: [facility] Address: [address] Performed By: #### 5 7021-8 ####[facility] LABIA [id number] [place] [address] [place] Erythrocyte distribution width (RBC) [Ratio] 16.3 % High 11.5-15.0 [facility] Comment on above: Order Comment: Speci men Type: BLOOD SPECIMENOrdering Facility: [facility] Address: [address] Performed By: #### 5 7021-8 ####[facility] LABCLIA [id number] [place] [address] [place] Hematocrit (Bld) [Volume fraction] 27.0 % Low 39.0-51.0 [facility] Comment on above: Order Comment: Speci men Type: BLOOD SPECIMENOrdering Facility: [facility] Address: [address] [address] Performed By: #### 5 7021-8 ####[facility] LABIA [id number] [place] [address] [place] Hemoglobin (Bld) [Mass/Vol] 8.3 g/dL Low 13.0-17.0 [facility] Comment on above: Order Comment: Speci men Type: BLOOD SPECIMENOrdering Facility: [facility] Address: [address] [place] [address] Performed By: #### 5 7021-8 ####[facility] LABIA [id number] [place] [address] [place] Immature granulocytes (Bld) [#/Vol] 0.03 10*3/uL Normal <0.10 [facility] Comment on above: Order Comment: Speci men Type: BLOOD SPECIMENOrdering Facility: [facility] Address: [address] [place] [address] Performed By: #### 5 7021-8 ####[facility] LABIA [id number] [place] [address] [place] Immature granulocytes/100 WBC (Bld) 0.6 % Normal [facility] Comment on above: Order Comment: Speci men Type: BLOOD SPECIMENOrdering Facility: [facility] Address: [address] [place], [place] [address] Performed By: #### 5 7021-8 ####[facility] LABIA [id number] [place] [address] [place] Lymphocytes (Bld) [#/Vol] 1.36 10*3/uL Normal 1.00-4.00 [facility] Comment on above: Order Comment: Speci men Type: BLOOD SPECIMENOrdering Facility: [facility] Address: [address] [place] [address] Performed By: #### 5 7021-8 ####[facility] LABIA [id number] [address] [place] [facility] Lymphocytes/100 WBC (Bld) 27.0 % Normal [facility] Comment on above: Order Comment: Speci men Type: BLOOD SPECIMENOrdering Facility: [facility] Address: [address] [place] [address] Performed By: #### 5 7021-8 ####[facility] LABIA [id number] [address] [place] MCH (RBC) [Entitic mass] 26.9 pg Normal 26.0-34.0 [facility] Comment on above: Order Comment: Speci men Type: BLOOD SPECIMENOrdering Facility: [facility] Address: [address] [place] [address] Performed By: #### 5 7021-8 ####[facility] LABIA [id number] [address] [place] MCHC (RBC) [Mass/Vol] 30.7 g/dL Normal 30.5-36.0 [facility] Comment on above: Order Comment: Speci men Type: BLOOD SPECIMENOrdering Facility: [facility] Address: [address] [place], [place] [address] Performed By: #### 5 7021-8 ####[facility] LABIA [id number] [address] [place] MCV (RBC) [Entitic vol] 87.4 fL Normal 80.0-100.0 [facility] Comment on above: Order Comment: Speci men Type: BLOOD SPECIMENOrdering Facility: [facility] Address: [address] Performed By: #### 5 7021-8 ####[facility] LABCLIA [id number] [place] [address] [place] Monocytes (Bld) [#/Vol] 0.32 10*3/uL Normal <0.87 [facility] Comment on above: Order Comment: Speci men Type: BLOOD SPECIMENOrdering Facility: [facility] Address: [address] Performed By: #### 5 7021-8 ####[facility] LABCLIA [id number] [place] [address] [place] Monocytes/100 WBC (Bld) 6.3 % Normal [facility] Comment on above: Order Comment: Speci men Type: BLOOD SPECIMENOrdering Facility: [facility] Address: [address] [place], [place] [address] Performed By: #### 5 7021-8 ####[facility] LABCLIA [id number] [place] [address] [place] Neutrophils (Bld) [#/Vol] 3.12 10*3/uL Normal 1.45-7.50 [facility] Comment on above: Order Comment: Speci men Type: BLOOD SPECIMENOrdering Facility: [facility] Address: [address] [place], [place] [address] Performed By: #### 5 7021-8 ####[facility] LABCLIA [id number] [place] [address] [place] Neutrophils/100 WBC (Bld) 61.9 % Normal [facility] Comment on above: Order Comment: Speci men Type: BLOOD SPECIMENOrdering Facility: [facility] Address: [address] Performed By: #### 5 7021-8 ####[facility] LABCLIA [id number] [place] [id number] [place] Nucleated RBC (Bld) [#/Vol] 10*3/uL Normal <0.01 [facility] Comment on above: Order Comment: Speci men Type: BLOOD SPECIMENOrdering Facility: [facility] Address: [address] [place] [address] Performed By: #### 5 7021-8 ####[facility] LABCLIA [id number] [place] [address] [place] Nucleated RBC/100 WBC (Bld) [Ratio] 0.0 /100 WBC Normal [facility] Comment on above: Order Comment: Speci men Type: BLOOD SPECIMENOrdering Facility: [facility] Address: [address] [place] [address] Performed By: #### 5 7021-8 ####[facility] LABIA [id number] [place] [address] [place] Platelet mean volume (Bld) [Entitic vol] 10.1 fL Normal 9.0-12.7 [facility] Comment on above: Order Comment: Speci men Type: BLOOD SPECIMENOrdering Facility: [facility] Address: [address] [place], [place] [address] Performed By: #### 5 7021-8 ####[facility] LABIA [id number] [place] [address] [place] Platelets (Bld) [#/Vol] 465 10*3/uL High 150-400 [facility] Comment on above: Order Comment: Speci men Type: BLOOD SPECIMENOrdering Facility: [facility] Address: [address] [place], [place] [address] Performed By: #### 5 7021-8 ####[facility] LABCLIA [id number] [place] [address] [place] RBC (Bld) [#/Vol] 3.09 10*6/uL Low 4.20-6.00 [facility] Comment on above: Order Comment: Speci men Type: BLOOD SPECIMENOrdering Facility: [facility] Address: [address] [place], [place] [address] Performed By: #### 5 7021-8 ####[facility] LABCLIA [id number] [place] [address] [place] WBC (Bld) [#/Vol] 5.04 10*3/uL Normal 3.70-11.00 [facility] Comment on above: Order Comment: Speci men Type: BLOOD SPECIMENOrdering Facility: [facility] Address: [address] [place], [place] [address] Performed By: #### 5 7021-8 ####[facility] LABIA [id number] [place] [address] [place] CONSULT PROGon 02-02-2023 CONSULT PROG Normal [facility] CONSULT PROG Normal [facility] Comprehensive metabolic 2000 panelon 02-02-2023 Albumin [Mass/Vol] 2.4 g/dL Low 3.9-4.9 [facility] Comment on above: Order Comment: Speci men Type: BLOOD SPECIMENOrdering Facility: [facility] Address: [address] [place], [place] [address] Performed By: #### 2 4323-8 ####[facility] LABCLIA [id number] [place] [address] [place] ALP [Catalytic activity/Vol] 152 U/L High 38-113 [facility] Comment on above: Order Comment: Speci men Type: BLOOD SPECIMENOrdering Facility: [facility] Address: [address] Performed By: #### 2 4323-8 ####[facility] LABCLIA [id number] [place] [address] [place] ALT [Catalytic activity/Vol] 299 U/L High 10-54 [facility] Comment on above: Order Comment: Speci men Type: BLOOD SPECIMENOrdering Facility: [facility] Address: [address] Performed By: #### 2 4323-8 ####[facility] LABCLIA [id number] [place] [address] [place] Anion gap [Moles/Vol] 9 mmol/L Normal 9-18 [facility] Comment on above: Order Comment: Speci men Type: BLOOD SPECIMENOrdering Facility: [facility] Address: [address] Performed By: #### 2 4323-8 ####[facility] LABCLIA [id number] [place] [address] [place] AST [Catalytic activity/Vol] 264 U/L High 14-40 [facility] Comment on above: Order Comment: Speci men Type: BLOOD SPECIMENOrdering Facility: [facility] Address: [address] Performed By: #### 2 4323-8 ####[facility] LABCLIA [id number] [place] [address] [place] Bilirubin [Mass/Vol] 0.2 mg/dL Normal 0.2-1.3 [facility] Comment on above: Order Comment: Speci men Type: BLOOD SPECIMENOrdering Facility: [facility] Address: [address] Performed By: #### 2 4323-8 ####[facility] LABCLIA [id number] [place] [address] [place] Calcium [Mass/Vol] 7.8 mg/dL Low 8.5-10.2 [facility] Comment on above: Order Comment: Speci men Type: BLOOD SPECIMENOrdering Facility: [facility] Address: [address] Performed By: #### 2 4323-8 ####[facility] LABCLIA [id number] [place] [address] [place] Chloride [Moles/Vol] 103 mmol/L Normal 97-105 [facility] Comment on above: Order Comment: Speci men Type: BLOOD SPECIMENOrdering Facility: [facility] Address: [address] [place] [address] Performed By: #### 2 4323-8 ####[facility] LABCLIA [id number] [address] [place] CO2 [Moles/Vol] 24 mmol/L Normal 22-30 [facility] Comment on above: Order Comment: Speci men Type: BLOOD SPECIMENOrdering Facility: [facility] Address: [address] [place] [address] Performed By: #### 2 4323-8 ####[facility] LABCLIA [id number] [address] STATES OF [facility] Creatinine [Mass/Vol] 0.92 mg/dL Normal 0.73-1.22 [facility] Comment on above: Order Comment: Speci men Type: BLOOD SPECIMENOrdering Facility: [facility] Address: [address] [place] [address] Performed By: #### 2 4323-8 ####[facility] LABIA [id number] [address] ESTIMATED GLOMERULAR FILTRATION RATE 96 mL/min/1.73m??? Normal >=60 [facility] Comment on above: Order Comment: Speci men Type: BLOOD SPECIMENOrdering Facility: [facility] Address: [address] [place] [address] Result Comment: Veronica mated Glomerular Filtration Rate (eGFR) is calculated using the 2020 CKD-EPI creatinine equation. This equation utilizes serum creatinine, sex, and age as parameters. The creatinine assay has traceable calibration to isotope dilution-mass spectrometry. Refer to KDIGO guidelines for clinical interpretation. In patients with unstable renal function, e.g. those with acute kidney injury, the eGFR may not accurately reflect actual GFR. Performed By: #### 2 4323-8 ####[facility] LABCLIA [id number] [place] [address] [place] Glucose [Mass/Vol] 123 mg/dL High 74-99 [facility] Comment on above: Order Comment: Speci men Type: BLOOD SPECIMENOrdering Facility: [facility] Address: [address] [place] [address] Result Comment: The [place] [employer] (ADA) provides guidance for cutoff values for fasting glucose and random glucose. The ADA defines fasting as no caloric intake for at least 8 hours. Fasting plasma glucose results between 100 to 125 mg/dL indicate increased risk for diabetes (prediabetes).Fasting plasma glucose results greater than or equal to 126 mg/dL meet the criteria for diagnosis of diabetes. In the absence of unequivocal hyperglycemia, results should be confirmed by repeat testing. In a patient with classic symptoms of hyperglycemia or hyperglycemic crisis, random plasma glucose results greater than or equal to 200 mg/dL meet the criteria for diagnosis of diabetes.Reference: Standards of Medical Care in Diabetes 2016, [place] [employer]. Diabetes Care. 2016.39(Suppl 1). Performed By: #### 2 4323-8 ####[facility] LABIA [id number] [place] [address] [place] Potassium [Moles/Vol] 4.7 mmol/L Normal 3.7-5.1 [facility] Comment on above: Order Comment: Speci men Type: BLOOD SPECIMENOrdering Facility: [facility] Address: [address] [address] Performed By: #### 2 4323-8 ####[facility] LABIA [id number] [place] [address] [place] Protein [Mass/Vol] 5.9 g/dL Low 6.3-8.0 [facility] Comment on above: Order Comment: Speci men Type: BLOOD SPECIMENOrdering Facility: [facility] Address: [address] [address] Performed By: #### 2 4323-8 ####[facility] LABCLIA [id number] [place] [address] [place] Sodium [Moles/Vol] 136 mmol/L Normal 136-144 [facility] Comment on above: Order Comment: Speci men Type: BLOOD SPECIMENOrdering Facility: [facility] Address: [address] [place] [address] Performed By: #### 2 4323-8 ####[facility] LABCLIA [id number] [place] [address] [place] Urea nitrogen [Mass/Vol] 18 mg/dL Normal 9-24 [facility] Comment on above: Order Comment: Speci men Type: BLOOD SPECIMENOrdering Facility: [facility] Address: [address] [place] [address] Performed By: #### 2 4323-8 ####[facility] LABCLIA [id number] [place] [address] [place] THERAPY NTon 02-02-2023 THERAPY NT Normal [facility] TYPE + SCREENon 02-02-2023 ABO A Normal [facility] Comment on above: Order Comment: Speci men Type: BLOOD SPECIMENOrdering Facility: [facility] Address: [address] [place] [address] Performed By: #### T SCR ####[facility] [id number] [place] [address] [place] HISTORICAL AB SCR STATUS Negative Normal [facility] Comment on above: Order Comment: Speci men Type: BLOOD SPECIMENOrdering Facility: [facility] Address: [address] [place] [address] Performed By: #### T SCR ####[facility] BLOOD BANKCLIA [id number] [place] [address] [place] Rh Nom (Bld) Positive Normal [facility] Comment on above: Order Comment: Speci men Type: BLOOD SPECIMENOrdering Facility: [facility] Address: [address] [place] [address] Performed By: #### T SCR ####[facility]OD [facility] [id number] [address] TYPE AND SCREEN EXPIRATION 02/05/2023 23:59 Normal [facility] Comment on above: Order Comment: Speci men Type: BLOOD SPECIMENOrdering Facility: [facility] Address: [address] [place] [address] Performed By: #### T SCR ####[facility] BLOOD [facility] [id number] [address] [place] CBC W Auto Differential pane l (Bld)on 02-01-2023 Basophils (Bld) [#/Vol] 0.06 10*3/uL Normal <0.11 [facility] Comment on above: Order Comment: Speci men Type: BLOOD SPECIMENOrdering Facility: [facility] Address: [address] [place] [address] Performed By: #### 5 7021-8 ####[facility] LABCLIA [id number] [address] Basophils/100 WBC (Bld) 0.8 % Normal [facility] Comment on above: Order Comment: Speci men Type: BLOOD SPECIMENOrdering Facility: [facility] Address: [address] [place], [place] [address] Performed By: #### 5 7021-8 ####[facility] LABCLIA [id number] [address] Differential cell count method Nom (Bld) Auto Normal [facility] Comment on above: Order Comment: Speci men Type: BLOOD SPECIMENOrdering Facility: [facility] Address: [address] [place], [place] [address] Performed By: #### 5 7021-8 ####[facility] LABCLIA [id number] [place] [address] [place] Eosinophils (Bld) [#/Vol] 0.09 10*3/uL Normal <0.46 [facility] Comment on above: Order Comment: Speci men Type: BLOOD SPECIMENOrdering Facility: [facility] Address: [address] [place] [address] Performed By: #### 5 7021-8 ####[facility] LABCLIA [id number] [place] [address] [place] Eosinophils/100 WBC (Bld) 1.2 % Normal [facility] Comment on above: Order Comment: Speci men Type: BLOOD SPECIMENOrdering Facility: [facility] Address: [address] [place] [address] Performed By: #### 5 7021-8 ####[facility] LABCLIA [id number] [place] [address] [place] Erythrocyte distribution width (RBC) [Ratio] 16.4 % High 11.5-15.0 [facility] Comment on above: Order Comment: Speci men Type: BLOOD SPECIMENOrdering Facility: [facility] Address: [address] [place] [address] Performed By: #### 5 7021-8 ####[facility] LABCLIA [id number] [place] [address] [place] Hematocrit (Bld) [Volume fraction] 25.5 % Low 39.0-51.0 [facility] Comment on above: Order Comment: Speci men Type: BLOOD SPECIMENOrdering Facility: [facility] Address: [address] [place] [address] Performed By: #### 5 7021-8 ####[facility] LABCLIA [id number] [place] [address] [place] Hemoglobin (Bld) [Mass/Vol] 7.9 g/dL Low 13.0-17.0 [facility] Comment on above: Order Comment: Speci men Type: BLOOD SPECIMENOrdering Facility: [facility] Address: [address] Performed By: #### 5 7021-8 ####[facility] LABCLIA [id number] [place] [address] [place] Immature granulocytes (Bld) [#/Vol] 0.07 10*3/uL Normal <0.10 [facility] Comment on above: Order Comment: Speci men Type: BLOOD SPECIMENOrdering Facility: [facility] Address: [address] Performed By: #### 5 7021-8 ####[facility] LABCLIA [id number] [address] [place] Immature granulocytes/100 WBC (Bld) 0.9 % Normal [facility] Comment on above: Order Comment: Speci men Type: BLOOD SPECIMENOrdering Facility: [facility] Address: [address] Performed By: #### 5 7021-8 ####[facility] LABIA [id number] [place] [address] [place] Lymphocytes (Bld) [#/Vol] 0.99 10*3/uL Low 1.00-4.00 [facility] Comment on above: Order Comment: Speci men Type: BLOOD SPECIMENOrdering Facility: [facility] Address: [address] Performed By: #### 5 7021-8 ####[facility] LABCLIA [id number] [place] [address] [place] Lymphocytes/100 WBC (Bld) 13.1 % Normal [facility] Comment on above: Order Comment: Speci men Type: BLOOD SPECIMENOrdering Facility: [facility] Address: [address] Performed By: #### 5 7021-8 ####[facility] LABIA [id number] [address] STATES [facility] MCH (RBC) [Entitic mass] 26.8 pg Normal 26.0-34.0 [facility] Comment on above: Order Comment: Speci men Type: BLOOD SPECIMENOrdering Facility: [facility] Address: [address] [place] [address] Performed By: #### 5 7021-8 ####[facility] LABIA [id number] [address] [place] MCHC (RBC) [Mass/Vol] 31.0 g/dL Normal 30.5-36.0 [facility] Comment on above: Order Comment: Speci men Type: BLOOD SPECIMENOrdering Facility: [facility] Address: [address] [place] [address] Performed By: #### 5 7021-8 ####[facility] [id number] [address] STATES OF [facility] MCV (RBC) [Entitic vol] 86.4 fL Normal 80.0-100.0 [facility] Comment on above: Order Comment: Speci men Type: BLOOD SPECIMENOrdering Facility: [facility] Address: [address] [place] [address] Performed By: #### 5 7021-8 ####[facility] [id number] [address] [place] Monocytes (Bld) [#/Vol] 0.35 10*3/uL Normal <0.87 [facility] Comment on above: Order Comment: Speci men Type: BLOOD SPECIMENOrdering Facility: [facility] Address: [address] [place] [address] Performed By: #### 5 7021-8 ####[facility] [id number] [address] Monocytes/100 WBC (Bld) 4.6 % Normal [facility] Comment on above: Order Comment: Speci men Type: BLOOD SPECIMENOrdering Facility: [facility] Address: [address] Performed By: #### 5 7021-8 ####[facility] LABCLIA [id number] [place] [address] [place] Neutrophils (Bld) [#/Vol] 5.98 10*3/uL Normal 1.45-7.50 [facility] Comment on above: Order Comment: Speci men Type: BLOOD SPECIMENOrdering Facility: [facility] Address: [address] [place] [address] Performed By: #### 5 7021-8 ####[facility] LABCLIA [id number] [place] [address] [place] Neutrophils/100 WBC (Bld) 79.4 % Normal [facility] Comment on above: Order Comment: Speci men Type: BLOOD SPECIMENOrdering Facility: [facility] Address: [address] [place], [place] [address] Performed By: #### 5 7021-8 ####[facility] LABCLIA [id number] [place] [address] [place] Nucleated RBC (Bld) [#/Vol] 10*3/uL Normal <0.01 [facility] Comment on above: Order Comment: Speci men Type: BLOOD SPECIMENOrdering Facility: [facility] Address: [address] [place], [place] [address] Performed By: #### 5 7021-8 ####[facility] LABCLIA [id number] [place] [address] [place] Nucleated RBC/100 WBC (Bld) [Ratio] 0.0 /100 WBC Normal [facility] Comment on above: Order Comment: Speci men Type: BLOOD SPECIMENOrdering Facility: [facility] Address: [address] [place] [address] Performed By: #### 5 7021-8 ####[facility] LABCLIA [id number] [place] [address] [place] Platelet mean volume (Bld) [Entitic vol] 10.0 fL Normal 9.0-12.7 [facility] Comment on above: Order Comment: Speci men Type: BLOOD SPECIMENOrdering Facility: [facility] Address: [address] [place] [id number] Performed By: #### 5 7021-8 ####[facility] LABIA [id number] [place] [address] [place] Platelets (Bld) [#/Vol] 470 10*3/uL High 150-400 [facility] Comment on above: Order Comment: Speci men Type: BLOOD SPECIMENOrdering Facility: [facility] Address: [address] [place], [place] [address] Performed By: #### 5 7021-8 ####[facility] LABIA [id number] [place] [address] [place] RBC (Bld) [#/Vol] 2.95 10*6/uL Low 4.20-6.00 [facility] Comment on above: Order Comment: Speci men Type: BLOOD SPECIMENOrdering Facility: [facility] Address: [address] [place] [phone] Performed By: #### 5 7021-8 ####[facility] LABCLIA [id number] [place] [address] [place] WBC (Bld) [#/Vol] 7.54 10*3/uL Normal 3.70-11.00 [facility] Comment on above: Order Comment: Speci men Type: BLOOD SPECIMENOrdering Facility: [facility] Address: [address] [place], [place] [address] Performed By: #### 5 7021-8 ####[facility] LABCLIA [id number] [place] [address] [place] CONSULT PROGon 02-01-2023 CONSULT PROG Normal [facility] CONSULT PROG Normal [facility] Comprehensive metabolic 2000 panelon 02-01-2023 Albumin [Mass/Vol] 2.5 g/dL Low 3.9-4.9 [facility] Comment on above: Order Comment: Speci men Type: BLOOD SPECIMENOrdering Facility: [facility] Address: [address] [place], [place] [address] Performed By: #### 2 4323-8, 08124-6 ####[facility] LABCLIA [id number] [place] [address] [place] ALP [Catalytic activity/Vol] 155 U/L High 38-113 [facility] Comment on above: Order Comment: Speci men Type: BLOOD SPECIMENOrdering Facility: [facility] Address: [address] [place], [place] [address] Performed By: #### 2 4323-8, 09561-9 ####[facility] LABCLIA [id number] [place] [address] [place] ALT [Catalytic activity/Vol] 214 U/L High 10-54 [facility] Comment on above: Order Comment: Speci men Type: BLOOD SPECIMENOrdering Facility: [facility] Address: [address] [place], [place] [address] Performed By: #### 2 4323-8, 36349-6 ####[facility] LABCLIA [id number] [place] [address] [place] Anion gap [Moles/Vol] 9 mmol/L Normal 9-18 [facility] Comment on above: Order Comment: Speci men Type: BLOOD SPECIMENOrdering Facility: [facility] Address: [address] [place], [place] [address] Performed By: #### 2 4323-8, 70714-0 ####[facility] LABCLIA [id number] [place] [address] [place] AST [Catalytic activity/Vol] 272 U/L High 14-40 [facility] Comment on above: Order Comment: Speci men Type: BLOOD SPECIMENOrdering Facility: [facility] Address: [address] [place] [address] Performed By: #### 2 4323-8, 47132-6 ####[facility] LABCLIA [id number] [place] [address] [place] Bilirubin [Mass/Vol] 0.3 mg/dL Normal 0.2-1.3 [facility] Comment on above: Order Comment: Speci men Type: BLOOD SPECIMENOrdering Facility: [facility] Address: [address] [place] [address] Performed By: #### 2 4323-8, 51965-8 ####[facility] LABIA [id number] [place] [address] [place] Calcium [Mass/Vol] 7.8 mg/dL Low 8.5-10.2 [facility] Comment on above: Order Comment: Speci men Type: BLOOD SPECIMENOrdering Facility: [facility] Address: [address] [place], [place] [address] Performed By: #### 2 4323-8, 46614-6 ####[facility] LABIA [id number] [place] [address] [place] Chloride [Moles/Vol] 105 mmol/L Normal 97-105 [facility] Comment on above: Order Comment: Speci men Type: BLOOD SPECIMENOrdering Facility: [facility] Address: [address] [place], [place] [address] Performed By: #### 2 4323-8, 23636-2 ####[facility] LABIA [id number] [place] [address] [place] CO2 [Moles/Vol] 23 mmol/L Normal 22-30 [facility] Comment on above: Order Comment: Speci men Type: BLOOD SPECIMENOrdering Facility: [facility] Address: [address] [address] Performed By: #### 2 4323-8, 28578-0 ####[facility] LABCLIA [id number] [place] [address] [place] Creatinine [Mass/Vol] 1.09 mg/dL Normal 0.73-1.22 [facility] Comment on above: Order Comment: Speci men Type: BLOOD SPECIMENOrdering Facility: [facility] Address: [address] [address] Performed By: #### 2 4323-8, 22839-1 ####[facility] LABCLIA [id number] [place] [address] [place] ESTIMATED GLOMERULAR FILTRATION RATE 78 mL/min/1.73m??? Normal >=60 [facility] Comment on above: Order Comment: Speci men Type: BLOOD SPECIMENOrdering Facility: [facility] Address: [address] [place] [address] Result Comment: Veronica mated Glomerular Filtration Rate (eGFR) is calculated using the 2020 CKD-EPI creatinine equation. This equation utilizes serum creatinine, sex, and age as parameters. The creatinine assay has traceable calibration to isotope dilution-mass spectrometry. Refer to KDIGO guidelines for clinical interpretation. In patients with unstable renal function, e.g. those with acute kidney injury, the eGFR may not accurately reflect actual GFR. Performed By: #### 2 4323-8, 45718-2 ####[facility] LABIA [id number] [place] [address] [place] Glucose [Mass/Vol] 148 mg/dL High 74-99 [facility] Comment on above: Order Comment: Speci men Type: BLOOD SPECIMENOrdering Facility: [facility] Address: [address] [place] [address] Result Comment: The [place] [employer] (ADA) provides guidance for cutoff values for fasting glucose and random glucose. The ADA defines fasting as no caloric intake for at least 8 hours. Fasting plasma glucose results between 100 to 125 mg/dL indicate increased risk for diabetes (prediabetes).Fasting plasma glucose results greater than or equal to 126 mg/dL meet the criteria for diagnosis of diabetes. In the absence of unequivocal hyperglycemia, results should be confirmed by repeat testing. In a patient with classic symptoms of hyperglycemia or hyperglycemic crisis, random plasma glucose results greater than or equal to 200 mg/dL meet the criteria for diagnosis of diabetes.Reference: Standards of Medical Care in Diabetes 2016, [place] [employer]. Diabetes Care. 2016.39(Suppl 1). Performed By: #### 2 4323-8, 56557-3 ####[facility] LABCLIA [id number] [place] [address] [place] Potassium [Moles/Vol] 5.4 mmol/L High 3.7-5.1 [facility] Comment on above: Order Comment: Speci men Type: BLOOD SPECIMENOrdering Facility: [facility] Address: [address] [address] Performed By: #### 2 4323-8, 45015-8 ####[facility] LABCLIA [id number] [place] [address] [place] Protein [Mass/Vol] 5.6 g/dL Low 6.3-8.0 [facility] Comment on above: Order Comment: Speci men Type: BLOOD SPECIMENOrdering Facility: [facility] Address: [address] [address] Performed By: #### 2 4323-8, 75314-0 ####[facility] LABCLIA [id number] [place] [address] [place] Sodium [Moles/Vol] 137 mmol/L Normal 136-144 [facility] Comment on above: Order Comment: Speci men Type: BLOOD SPECIMENOrdering Facility: [facility] Address: [address] Performed By: #### 2 4323-8, 90398-3 ####[facility] LABCLIA [id number] [place] [address] [place] Urea nitrogen [Mass/Vol] 19 mg/dL Normal 9-24 [facility] Comment on above: Order Comment: Speci men Type: BLOOD SPECIMENOrdering Facility: [facility] Address: [address] [place] [address] Performed By: #### 2 4323-8, 16848-7 ####[facility] LABCLIA [id number] [place] [address] [place] Prealb SerPl-mCncon 02-02-20 Prealbumin [Mass/Vol] 16 mg/dL Low 17-36 [facility] Comment on above: Order Comment: Speci men Type: BLOOD SPECIMENOrdering Facility: [facility] Address: [address] [place] [address] Performed By: #### 2 4323-8, 92688-3 ####[facility] LABIA [id number] [place] [address] [place] ANES POSTPROC EVALon 023 ANES POSTPROC EVAL Normal [facility] ANES PRE-OPon 01-31-2023 ANES PRE-OP Normal [facility] BRIEF OP NOTon 01-31-2023 BRIEF OP NOT Normal [facility] CASE MANAGEMon 01-31-2023 CASE MANAGEM Normal [facility] CBC panel Auto (Bld)on 01-31 Erythrocyte distribution width (RBC) [Ratio] 16.8 % High 11.5-15.0 [facility] Comment on above: Order Comment: Speci men Type: BLOOD SPECIMENOrdering Facility: [facility] Address: [address] [place], [place] [address] Performed By: #### 5 8410-2 ####[facility] LABCLIA [id number] [place] [address] [place] Hematocrit (Bld) [Volume fraction] 27.2 % Low 39.0-51.0 [facility] Comment on above: Order Comment: Speci men Type: BLOOD SPECIMENOrdering Facility: [facility] Address: [address] [place] [address] Performed By: #### 5 8410-2 ####[facility] LABCLIA [id number] [address] [place] Hemoglobin (Bld) [Mass/Vol] 8.6 g/dL Low 13.0-17.0 [facility] Comment on above: Order Comment: Speci men Type: BLOOD SPECIMENOrdering Facility: [facility] Address: [address] [place] [address] Performed By: #### 5 8410-2 ####[facility] LABCLIA [id number] [address] OF [facility] MCH (RBC) [Entitic mass] 26.9 pg Normal 26.0-34.0 [facility] Comment on above: Order Comment: Speci men Type: BLOOD SPECIMENOrdering Facility: [facility] Address: [address] [place], [place] [address] Performed By: #### 5 8410-2 ####[facility] LABIA [id number] [address] STATES OF [facility] MCHC (RBC) [Mass/Vol] 31.6 g/dL Normal 30.5-36.0 [facility] Comment on above: Order Comment: Speci men Type: BLOOD SPECIMENOrdering Facility: [facility] Address: [address] [place], [place] [address] Performed By: #### 5 8410-2 ####[facility] LABCLIA [id number] [address] [place] MCV (RBC) [Entitic vol] 85.0 fL Normal 80.0-100.0 [facility] Comment on above: Order Comment: Speci men Type: BLOOD SPECIMENOrdering Facility: [facility] Address: [address] Performed By: #### 5 8410-2 ####[facility] LABIA [id number] [place] [address] [place] Nucleated RBC (Bld) [#/Vol] 10*3/uL Normal <0.01 [facility] Comment on above: Order Comment: Speci men Type: BLOOD SPECIMENOrdering Facility: [facility] Address: [address] Performed By: #### 5 8410-2 ####[facility] LABIA [id number] [place] [address] [place] Platelet mean volume (Bld) [Entitic vol] 9.6 fL Normal 9.0-12.7 [facility] Comment on above: Order Comment: Speci men Type: BLOOD SPECIMENOrdering Facility: [facility] Address: [address] [place], [place] [address] Performed By: #### 5 8410-2 ####[facility] LABIA [id number] [place] [address] [place] Platelets (Bld) [#/Vol] 464 10*3/uL High 150-400 [facility] Comment on above: Order Comment: Speci men Type: BLOOD SPECIMENOrdering Facility: [facility] Address: [address] Performed By: #### 5 8410-2 ####[facility] LABIA [id number] [place] [address] [place] RBC (Bld) [#/Vol] 3.20 10*6/uL Low 4.20-6.00 [facility] Comment on above: Order Comment: Speci men Type: BLOOD SPECIMENOrdering Facility: [facility] Address: [address] Performed By: #### 5 8410-2 ####[facility] LABCLIA [id number] [place] [address] [place] WBC (Bld) [#/Vol] 6.63 10*3/uL Normal 3.70-11.00 [facility] Comment on above: Order Comment: Speci men Type: BLOOD SPECIMENOrdering Facility: [facility] Address: [address] [place] [address] Performed By: #### 5 8410-2 ####[facility] LABIA [id number] [place] [address] [place] CONSULT PROGon 01-31-2023 CONSULT PROG Normal [facility] CONSULT PROG Normal [facility] Comprehensive metabolic 2000 panelon 01-31-2023 Albumin [Mass/Vol] 2.5 g/dL Low 3.9-4.9 [facility] Comment on above: Order Comment: Speci men Type: BLOOD SPECIMENOrdering Facility: [facility] Address: [address] Performed By: #### 2 4323-8 ####[facility] LABIA [id number] [place] [address] [place] ALP [Catalytic activity/Vol] 153 U/L High 38-113 [facility] Comment on above: Order Comment: Speci men Type: BLOOD SPECIMENOrdering Facility: [facility] Address: [address] [place] [address] Performed By: #### 2 4323-8 ####[facility] LABIA [id number] [place] [address] [place] ALT [Catalytic activity/Vol] 142 U/L High 10-54 [facility] Comment on above: Order Comment: Speci men Type: BLOOD SPECIMENOrdering Facility: [facility] Address: [address] [place] [address] Performed By: #### 2 4323-8 ####[facility] LABCLIA [id number] [place] [address] [place] Anion gap [Moles/Vol] 9 mmol/L Normal 9-18 [facility] Comment on above: Order Comment: Speci men Type: BLOOD SPECIMENOrdering Facility: [facility] Address: [address] [address] Performed By: #### 2 4323-8 ####[facility] LABCLIA [id number] [place] [address] [place] AST [Catalytic activity/Vol] 167 U/L High 14-40 [facility] Comment on above: Order Comment: Speci men Type: BLOOD SPECIMENOrdering Facility: [facility] Address: [address] [place] [address] Result Comment: Resu lts may be falsely increased due to interference from hemolysis. Suggest reorder as clinically indicated. Performed By: #### 2 4323-8 ####[facility] LABCLIA [id number] [place] [address] [place] Bilirubin [Mass/Vol] 0.3 mg/dL Normal 0.2-1.3 [facility] Comment on above: Order Comment: Speci men Type: BLOOD SPECIMENOrdering Facility: [facility] Address: [address] [address] Performed By: #### 2 4323-8 ####[facility] LABCLIA [id number] [place] [address] [place] Calcium [Mass/Vol] 8.3 mg/dL Low 8.5-10.2 [facility] Comment on above: Order Comment: Speci men Type: BLOOD SPECIMENOrdering Facility: [facility] Address: [address] [address] Performed By: #### 2 4323-8 ####[facility] LABCLIA [id number] [address] [place] Chloride [Moles/Vol] 107 mmol/L High 97-105 [facility] Comment on above: Order Comment: Speci men Type: BLOOD SPECIMENOrdering Facility: [facility] Address: [address] [place] [address] Performed By: #### 2 4323-8 ####[facility] LABCLIA [id number] [place] [address] [place] CO2 [Moles/Vol] 23 mmol/L Normal 22-30 [facility] Comment on above: Order Comment: Speci men Type: BLOOD SPECIMENOrdering Facility: [facility] Address: [address] [place] [address] Performed By: #### 2 4323-8 ####[facility] LABIA [id number] [address] STATES OF [facility] Creatinine [Mass/Vol] 1.08 mg/dL Normal 0.73-1.22 [facility] Comment on above: Order Comment: Speci men Type: BLOOD SPECIMENOrdering Facility: [facility] Address: [address] [place] [address] Performed By: #### 2 4323-8 ####[facility] LABIA [id number] [address] OF [place] ESTIMATED GLOMERULAR FILTRATION RATE 79 mL/min/1.73m??? Normal >=60 [facility] Comment on above: Order Comment: Speci men Type: BLOOD SPECIMENOrdering Facility: [facility] Address: [address] [place] [address] Result Comment: Veronica mated Glomerular Filtration Rate (eGFR) is calculated using the 2020 CKD-EPI creatinine equation. This equation utilizes serum creatinine, sex, and age as parameters. The creatinine assay has traceable calibration to isotope dilution-mass spectrometry. Refer to KDIGO guidelines for clinical interpretation. In patients with unstable renal function, e.g. those with acute kidney injury, the eGFR may not accurately reflect actual GFR. Performed By: #### 2 4323-8 ####[facility] LABCLIA [id number] [place] [address] [place] Glucose [Mass/Vol] 105 mg/dL High 74-99 [facility] Comment on above: Order Comment: Speci men Type: BLOOD SPECIMENOrdering Facility: [facility] Address: [address] [address] Result Comment: The [place] Diabetes Association (ADA) provides guidance for cutoff values for fasting glucose and random glucose. The ADA defines fasting as no caloric intake for at least 8 hours. Fasting plasma glucose results between 100 to 125 mg/dL indicate increased risk for diabetes (prediabetes).Fasting plasma glucose results greater than or equal to 126 mg/dL meet the criteria for diagnosis of diabetes. In the absence of unequivocal hyperglycemia, results should be confirmed by repeat testing. In a patient with classic symptoms of hyperglycemia or hyperglycemic crisis, random plasma glucose results greater than or equal to 200 mg/dL meet the criteria for diagnosis of diabetes.Reference: Standards of Medical Care in Diabetes 2016, [place] [employer]. Diabetes Care. 2016.39(Suppl 1). Performed By: #### 2 4323-8 ####[facility] LABCLIA [id number] [place] [address] [place] Potassium [Moles/Vol] 5.0 mmol/L Normal 3.7-5.1 [facility] Comment on above: Order Comment: Speci men Type: BLOOD SPECIMENOrdering Facility: [facility] Address: [address] [address] Performed By: #### 2 4323-8 ####[facility] LABCLIA [id number] [place] [address] [place] Protein [Mass/Vol] 6.2 g/dL Low 6.3-8.0 [facility] Comment on above: Order Comment: Speci men Type: BLOOD SPECIMENOrdering Facility: [facility] Address: [address] [address] Performed By: #### 2 4323-8 ####[facility] LABCLIA [id number] [place] [address] [place] Sodium [Moles/Vol] 139 mmol/L Normal 136-144 [facility] Comment on above: Order Comment: Speci men Type: BLOOD SPECIMENOrdering Facility: [facility] Address: [address] [address] Performed By: #### 2 4323-8 ####[facility] LABCLIA [id number] [place] [address] [place] Urea nitrogen [Mass/Vol] 24 mg/dL Normal 9-24 [facility] Comment on above: Order Comment: Speci men Type: BLOOD SPECIMENOrdering Facility: [facility] Address: [address] [place] [address] Performed By: #### 2 4323-8 ####[facility] LABCLIA [id number] [place] [address] [place] NUTRITIONon 01-31-2023 NUTRITION Normal [facility] OPERATIVE NOon 01-31-2023 OPERATIVE NO Normal [facility] THERAPY NTon 01-31-2023 THERAPY NT Normal [facility] Basic metabolic 2000 panelon 01-30-2023 Anion gap [Moles/Vol] 8 mmol/L Low 9-18 [facility] Comment on above: Order Comment: Speci men Type: BLOOD SPECIMENOrdering Facility: [facility] Address: [address] [place] [address] Performed By: #### 2 4321-2 ####[facility] LABCLIA [id number] [place] [address] [place] Calcium [Mass/Vol] 7.5 mg/dL Low 8.5-10.2 [facility] Comment on above: Order Comment: Speci men Type: BLOOD SPECIMENOrdering Facility: [facility] Address: [address] Performed By: #### 2 4321-2 ####[facility] LABCLIA [id number] [place] [address] [place] Chloride [Moles/Vol] 105 mmol/L Normal 97-105 [facility] Comment on above: Order Comment: Speci men Type: BLOOD SPECIMENOrdering Facility: [facility] Address: [address] [place] [address] Performed By: #### 2 4321-2 ####[facility] LABCLIA [id number] [place] [address] [place] CO2 [Moles/Vol] 23 mmol/L Normal 22-30 [facility] Comment on above: Order Comment: Speci men Type: BLOOD SPECIMENOrdering Facility: [facility] Address: [address] [place] [address] Performed By: #### 2 4321-2 ####[facility] LABCLIA [id number] [address] STATES OF [facility] Creatinine [Mass/Vol] 1.17 mg/dL Normal 0.73-1.22 [facility] Comment on above: Order Comment: Speci men Type: BLOOD SPECIMENOrdering Facility: [facility] Address: [address] [place] [address] Performed By: #### 2 4321-2 ####[facility] LABIA [id number] [address] OF [facility] ESTIMATED GLOMERULAR FILTRATION RATE 72 mL/min/1.73m??? Normal >=60 [facility] Comment on above: Order Comment: Speci men Type: BLOOD SPECIMENOrdering Facility: [facility] Address: [address] [place] [address] Result Comment: Veronica mated Glomerular Filtration Rate (eGFR) is calculated using the 2020 CKD-EPI creatinine equation. This equation utilizes serum creatinine, sex, and age as parameters. The creatinine assay has traceable calibration to isotope dilution-mass spectrometry. Refer to KDIGO guidelines for clinical interpretation. In patients with unstable renal function, e.g. those with acute kidney injury, the eGFR may not accurately reflect actual GFR. Performed By: #### 2 4321-2 ####[facility] LABIA [id number] [place] [address] [place] Glucose [Mass/Vol] 116 mg/dL High 74-99 [facility] Comment on above: Order Comment: Speci men Type: BLOOD SPECIMENOrdering Facility: [facility] Address: [address] [address] Result Comment: The [place] Diabetes [employer] (ADA) provides guidance for cutoff values for fasting glucose and random glucose. The ADA defines fasting as no caloric intake for at least 8 hours. Fasting plasma glucose results between 100 to 125 mg/dL indicate increased risk for diabetes (prediabetes).Fasting plasma glucose results greater than or equal to 126 mg/dL meet the criteria for diagnosis of diabetes. In the absence of unequivocal hyperglycemia, results should be confirmed by repeat testing. In a patient with classic symptoms of hyperglycemia or hyperglycemic crisis, random plasma glucose results greater than or equal to 200 mg/dL meet the criteria for diagnosis of diabetes.Reference: Standards of Medical Care in Diabetes 2016, [place] [employer]. Diabetes Care. 2016.39(Suppl 1). Performed By: #### 2 4321-2 ####[facility] LABIA [id number] [place] [address] [place] Potassium [Moles/Vol] 4.6 mmol/L Normal 3.7-5.1 [facility] Comment on above: Order Comment: Speci men Type: BLOOD SPECIMENOrdering Facility: [facility] Address: [address] [address] Performed By: #### 2 4321-2 ####[facility] LABIA [id number] [place] [address] [place] Sodium [Moles/Vol] 136 mmol/L Normal 136-144 [facility] Comment on above: Order Comment: Cecilyi men Type: BLOOD SPECIMENOrdering Facility: [facility] Address: [address] [address] Performed By: #### 2 4321-2 ####[facility] LABCLIA [id number] [place] [address] [place] Urea nitrogen [Mass/Vol] 22 mg/dL Normal 9-24 [facility] Comment on above: Order Comment: Speci men Type: BLOOD SPECIMENOrdering Facility: [facility] Address: [address] [place] [address] Performed By: #### 2 4321-2 ####[facility] LABCLIA [id number] [place] [address] [place] CBC panel Auto (Bld)on 01-30 Erythrocyte distribution width (RBC) [Ratio] 16.6 % High 11.5-15.0 [facility] Comment on above: Order Comment: Speci men Type: BLOOD SPECIMENOrdering Facility: [facility] Address: [address] [place] [address] Performed By: #### 5 8410-2 ####[facility] LABIA [id number] [place] [address] [place] Hematocrit (Bld) [Volume fraction] 27.1 % Low 39.0-51.0 [facility] Comment on above: Order Comment: Speci men Type: BLOOD SPECIMENOrdering Facility: [facility] Address: [address] [place], [place] [address] Performed By: #### 5 8410-2 ####[facility] LABCLIA [id number] [address] [place] Hemoglobin (Bld) [Mass/Vol] 8.7 g/dL Low 13.0-17.0 [facility] Comment on above: Order Comment: Speci men Type: BLOOD SPECIMENOrdering Facility: [facility] Address: [address] [place], [place] [address] Performed By: #### 5 8410-2 ####[facility] LABCLIA [id number] [address] MCH (RBC) [Entitic mass] 27.4 pg Normal 26.0-34.0 [facility] Comment on above: Order Comment: Speci men Type: BLOOD SPECIMENOrdering Facility: [facility] Address: [address] [place] [address] Performed By: #### 5 8410-2 ####[facility] LABCLIA [id number] [address] STATES [facility] MCHC (RBC) [Mass/Vol] 32.1 g/dL Normal 30.5-36.0 [facility] Comment on above: Order Comment: Speci men Type: BLOOD SPECIMENOrdering Facility: [facility] Address: [address] [place] [address] Performed By: #### 5 8410-2 ####[facility] LABCLIA [id number] [address] [place] MCV (RBC) [Entitic vol] 85.2 fL Normal 80.0-100.0 [facility] Comment on above: Order Comment: Speci men Type: BLOOD SPECIMENOrdering Facility: [facility] Address: [address] [place] [address] Performed By: #### 5 8410-2 ####[facility] LABCLIA [id number] [place] [address] [place] Nucleated RBC (Bld) [#/Vol] 10*3/uL Normal <0.01 [facility] Comment on above: Order Comment: Speci men Type: BLOOD SPECIMENOrdering Facility: [facility] Address: [address] [place], [place] [address] Performed By: #### 5 8410-2 ####[facility] LABCLIA [id number] [address] [place] Platelet mean volume (Bld) [Entitic vol] 9.8 fL Normal 9.0-12.7 [facility] Comment on above: Order Comment: Speci men Type: BLOOD SPECIMENOrdering Facility: [facility] Address: [address] Performed By: #### 5 8410-2 ####[facility] LABIA [id number] [place] [address] [place] Platelets (Bld) [#/Vol] 407 10*3/uL High 150-400 [facility] Comment on above: Order Comment: Speci men Type: BLOOD SPECIMENOrdering Facility: [facility] Address: [address] Performed By: #### 5 8410-2 ####[facility] LABIA [id number] [place] [address] [place] RBC (Bld) [#/Vol] 3.18 10*6/uL Low 4.20-6.00 [facility] Comment on above: Order Comment: Speci men Type: BLOOD SPECIMENOrdering Facility: [facility] Address: [address] [place], [place] [address] Performed By: #### 5 8410-2 ####[facility] LABIA [id number] [place] [address] [place] WBC (Bld) [#/Vol] 10.63 10*3/uL Normal 3.70-11.00 [facility] Comment on above: Order Comment: Speci men Type: BLOOD SPECIMENOrdering Facility: [facility] Address: [address] Performed By: #### 5 8410-2 ####[facility] LABIA [id number] [place] [address] [place] Erythrocyte distribution width (RBC) [Ratio] 16.6 % High 11.5-15.0 [facility] Comment on above: Order Comment: Speci men Type: BLOOD SPECIMENOrdering Facility: [facility] Address: [address] Performed By: #### 5 8410-2 ####[facility] LABCLIA [id number] [address] [place] Hematocrit (Bld) [Volume fraction] 25.7 % Low 39.0-51.0 [facility] Comment on above: Order Comment: Speci men Type: BLOOD SPECIMENOrdering Facility: [facility] Address: [address] Performed By: #### 5 8410-2 ####[facility] LABIA [id number] [address] [place] Hemoglobin (Bld) [Mass/Vol] 8.3 g/dL Low 13.0-17.0 [facility] Comment on above: Order Comment: Speci men Type: BLOOD SPECIMENOrdering Facility: [facility] Address: [address] [address] Performed By: #### 5 8410-2 ####[facility] LABIA [id number] [address] [place] MCH (RBC) [Entitic mass] 26.9 pg Normal 26.0-34.0 [facility] Comment on above: Order Comment: Speci men Type: BLOOD SPECIMENOrdering Facility: [facility] Address: [address] Performed By: #### 5 8410-2 ####[facility] LABIA [id number] [place] [address] [place] MCHC (RBC) [Mass/Vol] 32.3 g/dL Normal 30.5-36.0 [facility] Comment on above: Order Comment: Speci men Type: BLOOD SPECIMENOrdering Facility: [facility] Address: [address] Performed By: #### 5 8410-2 ####[facility] LABIA [id number] [place] [address] [place] MCV (RBC) [Entitic vol] 83.4 fL Normal 80.0-100.0 [facility] Comment on above: Order Comment: Speci men Type: BLOOD SPECIMENOrdering Facility: [facility] Address: [address] [place] [address] Performed By: #### 5 8410-2 ####[facility] LABIA [id number] [place] [address] [place] Nucleated RBC (Bld) [#/Vol] 10*3/uL Normal <0.01 [facility] Comment on above: Order Comment: Speci men Type: BLOOD SPECIMENOrdering Facility: [facility] Address: [address] [place] [address] Performed By: #### 5 8410-2 ####[facility] [id number] [place] [address] [place] Platelet mean volume (Bld) [Entitic vol] 9.8 fL Normal 9.0-12.7 [facility] Comment on above: Order Comment: Speci men Type: BLOOD SPECIMENOrdering Facility: [facility] Address: [address] [place], [place] [address] Performed By: #### 5 8410-2 ####[facility] LABIA [id number] [place] [address] [place] Platelets (Bld) [#/Vol] 413 10*3/uL High 150-400 [facility] Comment on above: Order Comment: Speci men Type: BLOOD SPECIMENOrdering Facility: [facility] Address: [address] [place], [place] [address] Performed By: #### 5 8410-2 ####[facility] LABIA [id number] [place] [address] [place] RBC (Bld) [#/Vol] 3.08 10*6/uL Low 4.20-6.00 [facility] Comment on above: Order Comment: Speci men Type: BLOOD SPECIMENOrdering Facility: [facility] Address: [address] Performed By: #### 5 8410-2 ####[facility] LABCLIA [id number] [place] [address] [place] WBC (Bld) [#/Vol] 10.69 10*3/uL Normal 3.70-11.00 [facility] Comment on above: Order Comment: Speci men Type: BLOOD SPECIMENOrdering Facility: [facility] Address: [address] [address] Performed By: #### 5 8410-2 ####[facility] LABIA [id number] [place] [address] [place] CONSULT PROGon 01-30-2023 CONSULT PROG Normal [facility] CT FEMUR WO IVCON LTon 01-30 CT FEMUR WO IVCON LT Normal [facility] CT PELVIS ORTHO WO IVCONon 0 01-30-2023 CT PELVIS ORTHO WO IVCON Normal [facility] CT TIB-FIB WO IVCON LTon CT TIB-FIB WO IVCON LT Normal [facility] Comprehensive metabolic 2000 panelon 01-30-2023 Albumin [Mass/Vol] 2.5 g/dL Low 3.9-4.9 [facility] Comment on above: Order Comment: Speci men Type: BLOOD SPECIMENOrdering Facility: [facility] Address: [address] Performed By: #### 2 4323-8 ####[facility] LABIA [id number] [place] [address] [place] ALP [Catalytic activity/Vol] 173 U/L High 38-113 [facility] Comment on above: Order Comment: Speci men Type: BLOOD SPECIMENOrdering Facility: [facility] Address: [address] Performed By: #### 2 4323-8 ####[facility] LABCLIA [id number] [place] [address] [place] ALT [Catalytic activity/Vol] 142 U/L High 10-54 [facility] Comment on above: Order Comment: Speci men Type: BLOOD SPECIMENOrdering Facility: [facility] Address: [address] [place] [address] Performed By: #### 2 4323-8 ####[facility] LABCLIA [id number] [place] [address] [place] Anion gap [Moles/Vol] 10 mmol/L Normal 9-18 [facility] Comment on above: Order Comment: Speci men Type: BLOOD SPECIMENOrdering Facility: [facility] Address: [address] [place] [address] Performed By: #### 2 4323-8 ####[facility] LABCLIA [id number] [place] [address] [place] AST [Catalytic activity/Vol] 240 U/L High 14-40 [facility] Comment on above: Order Comment: Speci men Type: BLOOD SPECIMENOrdering Facility: [facility] Address: [address] [place] [address] Performed By: #### 2 4323-8 ####[facility] LABCLIA [id number] [place] [address] [place] Bilirubin [Mass/Vol] 0.3 mg/dL Normal 0.2-1.3 [facility] Comment on above: Order Comment: Speci men Type: BLOOD SPECIMENOrdering Facility: [facility] Address: [address] [place], [place] [address] Performed By: #### 2 4323-8 ####[facility] LABCLIA [id number] [place] [address] [place] Calcium [Mass/Vol] 7.6 mg/dL Low 8.5-10.2 [facility] Comment on above: Order Comment: Speci men Type: BLOOD SPECIMENOrdering Facility: [facility] Address: [address] [address] Performed By: #### 2 4323-8 ####[facility] LABCLIA [id number] [place] [address] [place] Chloride [Moles/Vol] 106 mmol/L High 97-105 [facility] Comment on above: Order Comment: Speci men Type: BLOOD SPECIMENOrdering Facility: [facility] Address: [address] [place] [address] Performed By: #### 2 4323-8 ####[facility] LABCLIA [id number] [place] [address] [place] CO2 [Moles/Vol] 21 mmol/L Low 22-30 [facility] Comment on above: Order Comment: Speci men Type: BLOOD SPECIMENOrdering Facility: [facility] Address: [address] [place] [address] Performed By: #### 2 4323-8 ####[facility] LABCLIA [id number] [place] [address] [place] Creatinine [Mass/Vol] 1.20 mg/dL Normal 0.73-1.22 [facility] Comment on above: Order Comment: Speci men Type: BLOOD SPECIMENOrdering Facility: [facility] Address: [address] Performed By: #### 2 4323-8 ####[facility] LABCLIA [id number] [place] [address] [place] ESTIMATED GLOMERULAR FILTRATION RATE 70 mL/min/1.73m??? Normal >=60 [facility] Comment on above: Order Comment: Speci men Type: BLOOD SPECIMENOrdering Facility: [facility] Address: [address] [place] [address] Result Comment: Veronica mated Glomerular Filtration Rate (eGFR) is calculated using the 2020 CKD-EPI creatinine equation. This equation utilizes serum creatinine, sex, and age as parameters. The creatinine assay has traceable calibration to isotope dilution-mass spectrometry. Refer to KDIGO guidelines for clinical interpretation. In patients with unstable renal function, e.g. those with acute kidney injury, the eGFR may not accurately reflect actual GFR. Performed By: #### 2 4323-8 ####[facility] LABCLIA [id number] [place] [address] [place] Glucose [Mass/Vol] 121 mg/dL High 74-99 [facility] Comment on above: Order Comment: Specmariela padilla Type: BLOOD SPECIMENOrdering Facility: [facility] Address: [address] [address] Result Comment: The [place] [employer] (ADA) provides guidance for cutoff values for fasting glucose and random glucose. The ADA defines fasting as no caloric intake for at least 8 hours. Fasting plasma glucose results between 100 to 125 mg/dL indicate increased risk for diabetes (prediabetes).Fasting plasma glucose results greater than or equal to 126 mg/dL meet the criteria for diagnosis of diabetes. In the absence of unequivocal hyperglycemia, results should be confirmed by repeat testing. In a patient with classic symptoms of hyperglycemia or hyperglycemic crisis, random plasma glucose results greater than or equal to 200 mg/dL meet the criteria for diagnosis of diabetes.Reference: Standards of Medical Care in Diabetes 2016, [place] [employer]. Diabetes Care. 2016.39(Suppl 1). Performed By: #### 2 4323-8 ####[facility] LABIA [id number] [place] [address] [place] Potassium [Moles/Vol] 4.5 mmol/L Normal 3.7-5.1 [facility] Comment on above: Order Comment: Alden padilla Type: BLOOD SPECIMENOrdering Facility: [facility] Address: [address] [address] Performed By: #### 2 4323-8 ####[facility] LABCLIA [id number] [address] [place] Protein [Mass/Vol] 5.9 g/dL Low 6.3-8.0 [facility] Comment on above: Order Comment: Speci men Type: BLOOD SPECIMENOrdering Facility: [facility] Address: [address] [address] Performed By: #### 2 4323-8 ####[facility] LABCLIA [id number] [address] [place] Sodium [Moles/Vol] 137 mmol/L Normal 136-144 [facility] Comment on above: Order Comment: Speci men Type: BLOOD SPECIMENOrdering Facility: [facility] Address: [address] [place] [address] Performed By: #### 2 4323-8 ####[facility] LABCLIA [id number] [address] STATES [facility] Urea nitrogen [Mass/Vol] 24 mg/dL Normal 9-24 [facility] Comment on above: Order Comment: Speci men Type: BLOOD SPECIMENOrdering Facility: [facility] Address: [address] [place] [address] Performed By: #### 2 4323-8 ####[facility] LABCLIA [id number] [place] [address] [place] TYPE + SCREENon 01-30-2023 ABO A Normal [facility] Comment on above: Order Comment: Speci men Type: BLOOD SPECIMENOrdering Facility: [facility] Address: [address] [address] Performed By: #### T SCR ####CC [facility] BLOOD BANKCLIA [id number] [address] [place] HISTORICAL AB SCR STATUS Negative Normal [facility] Comment on above: Order Comment: Speci men Type: BLOOD SPECIMENOrdering Facility: [facility] Address: [address] [place] [address] Performed By: #### T SCR ####CC [facility] BLOOD BANKCLIA [id number] [address] Rh Nom (Bld) Positive Normal [facility] Comment on above: Order Comment: Speci men Type: BLOOD SPECIMENOrdering Facility: [facility] Address: [address] [place] [address] Performed By: #### T SCR ####CC [facility] BLOOD BANKCLIA [id number] [address] TYPE AND SCREEN EXPIRATION 02/02/2023 23:59 Normal [facility] Comment on above: Order Comment: Speci men Type: BLOOD SPECIMENOrdering Facility: [facility] Address: [address] [place] [address] Performed By: #### T SCR ####CC [facility] BLOOD BANKCLIA [id number] [address] CBC panel Auto (Bld)on 01-29 Erythrocyte distribution width (RBC) [Ratio] 16.2 % High 11.5-15.0 [facility] Comment on above: Order Comment: Speci men Type: BLOOD SPECIMENOrdering Facility: [facility] Address: [address] [place] [address] Performed By: #### 5 8410-2 ####[facility] LABCLIA [id number] [address] Hematocrit (Bld) [Volume fraction] 33.5 % Low 39.0-51.0 [facility] Comment on above: Order Comment: Speci men Type: BLOOD SPECIMENOrdering Facility: [facility] Address: [address] [place], [place] [address] Performed By: #### 5 8410-2 ####[facility] LABCLIA [id number] [address] Hemoglobin (Bld) [Mass/Vol] 10.7 g/dL Low 13.0-17.0 [facility] Comment on above: Order Comment: Speci men Type: BLOOD SPECIMENOrdering Facility: [facility] Address: [address] [place], [place] [address] Performed By: #### 5 8410-2 ####[facility] LABCLIA [id number] [address] MCH (RBC) [Entitic mass] 27.0 pg Normal 26.0-34.0 [facility] Comment on above: Order Comment: Speci men Type: BLOOD SPECIMENOrdering Facility: [facility] Address: [address] [place], [place] [address] Performed By: #### 5 8410-2 ####[facility] LABIA [id number] [address] [place] MCHC (RBC) [Mass/Vol] 31.9 g/dL Normal 30.5-36.0 [facility] Comment on above: Order Comment: Speci men Type: BLOOD SPECIMENOrdering Facility: [facility] Address: [address] [place], [place] [address] Performed By: #### 5 8410-2 ####[facility] LABIA [id number] [address] [place] MCV (RBC) [Entitic vol] 84.6 fL Normal 80.0-100.0 [facility] Comment on above: Order Comment: Speci men Type: BLOOD SPECIMENOrdering Facility: [facility] Address: [address] [place], [place] [address] Performed By: #### 5 8410-2 ####[facility] LABIA [id number] [address] [place] Nucleated RBC (Bld) [#/Vol] 10*3/uL Normal <0.01 [facility] Comment on above: Order Comment: Speci men Type: BLOOD SPECIMENOrdering Facility: [facility] Address: [facility] [address] Performed By: #### 5 8410-2 ####[facility] LABIA [id number] [place] [address] [place] Platelet mean volume (Bld) [Entitic vol] 10.7 fL Normal 9.0-12.7 [facility] Comment on above: Order Comment: Speci men Type: BLOOD SPECIMENOrdering Facility: [facility] Address: [address] [place], [place] [address] Performed By: #### 5 8410-2 ####[facility] LABIA [id number] [place] [address] [place] Platelets (Bld) [#/Vol] 354 10*3/uL Normal 150-400 [facility] Comment on above: Order Comment: Speci men Type: BLOOD SPECIMENOrdering Facility: [facility] Address: [address] [place], [place] [address] Performed By: #### 5 8410-2 ####[facility] LABIA [id number] [place] [address] [place] RBC (Bld) [#/Vol] 3.96 10*6/uL Low 4.20-6.00 [facility] Comment on above: Order Comment: Speci men Type: BLOOD SPECIMENOrdering Facility: [facility] Address: [address] [place] [address] Performed By: #### 5 8410-2 ####[facility] LABIA [id number] [place] [address] [place] WBC (Bld) [#/Vol] 14.66 10*3/uL High 3.70-11.00 [facility] Comment on above: Order Comment: Speci men Type: BLOOD SPECIMENOrdering Facility: [facility] Address: [address] [place], [place] [address] Performed By: #### 5 8410-2 ####[facility] LABCLIA [id number] [place] [address] [place] CONSULTon 01-29-2023 CONSULT Normal [facility] CONSULT PROGon 01-29-2023 CONSULT PROG Normal [facility] Comprehensive metabolic 2000 panelon 01-29-2023 Albumin [Mass/Vol] 2.4 g/dL Low 3.9-4.9 [facility] Comment on above: Order Comment: Speci men Type: BLOOD SPECIMENOrdering Facility: [facility] Address: [address] Performed By: #### 2 4323-8 ####[facility] LABCLIA [id number] [place] [address] [place] ALP [Catalytic activity/Vol] 220 U/L High 38-113 [facility] Comment on above: Order Comment: Speci men Type: BLOOD SPECIMENOrdering Facility: [facility] Address: [address] Performed By: #### 2 4323-8 ####[facility] LABCLIA [id number] [place] [address] [place] ALT [Catalytic activity/Vol] 34 U/L Normal 10-54 [facility] Comment on above: Order Comment: Speci men Type: BLOOD SPECIMENOrdering Facility: [facility] Address: [address] [place] [address] Performed By: #### 2 4323-8 ####[facility] LABCLIA [id number] [place] [address] [place] Anion gap [Moles/Vol] 11 mmol/L Normal 9-18 [facility] Comment on above: Order Comment: Speci men Type: BLOOD SPECIMENOrdering Facility: [facility] Address: [address] Performed By: #### 2 4323-8 ####[facility] LABCLIA [id number] [place] [address] [place] AST [Catalytic activity/Vol] 43 U/L High 14-40 [facility] Comment on above: Order Comment: Speci men Type: BLOOD SPECIMENOrdering Facility: [facility] Address: [address] [place] [address] Performed By: #### 2 4323-8 ####[facility] LABCLIA [id number] [place] [address] [place] Bilirubin [Mass/Vol] 0.6 mg/dL Normal 0.2-1.3 [facility] Comment on above: Order Comment: Speci men Type: BLOOD SPECIMENOrdering Facility: [facility] Address: [address] [place] [address] Performed By: #### 2 4323-8 ####[facility] LABCLIA [id number] [place] [address] [place] Calcium [Mass/Vol] 7.5 mg/dL Low 8.5-10.2 [facility] Comment on above: Order Comment: Speci men Type: BLOOD SPECIMENOrdering Facility: [facility] Address: [address] [place] [address] Performed By: #### 2 4323-8 ####[facility] LABCLIA [id number] [place] [address] [place] Chloride [Moles/Vol] 103 mmol/L Normal 97-105 [facility] Comment on above: Order Comment: Speci men Type: BLOOD SPECIMENOrdering Facility: [facility] Address: [address] [place] [address] Performed By: #### 2 4323-8 ####[facility] LABCLIA [id number] [place] [address] [place] CO2 [Moles/Vol] 22 mmol/L Normal 22-30 [facility] Comment on above: Order Comment: Speci men Type: BLOOD SPECIMENOrdering Facility: [facility] Address: [address] [address] Performed By: #### 2 4323-8 ####[facility] LABIA [id number] [address] STATES OF [facility] Creatinine [Mass/Vol] 1.02 mg/dL Normal 0.73-1.22 [facility] Comment on above: Order Comment: Speci men Type: BLOOD SPECIMENOrdering Facility: [facility] Address: [address] [address] Performed By: #### 2 4323-8 ####[facility] LABIA [id number] [address] [place] ESTIMATED GLOMERULAR FILTRATION RATE 85 mL/min/1.73m??? Normal >=60 [facility] Comment on above: Order Comment: Speci men Type: BLOOD SPECIMENOrdering Facility: [facility] Address: [address] [place] [address] Result Comment: Veronica mated Glomerular Filtration Rate (eGFR) is calculated using the 2020 CKD-EPI creatinine equation. This equation utilizes serum creatinine, sex, and age as parameters. The creatinine assay has traceable calibration to isotope dilution-mass spectrometry. Refer to KDIGO guidelines for clinical interpretation. In patients with unstable renal function, e.g. those with acute kidney injury, the eGFR may not accurately reflect actual GFR. Performed By: #### 2 4323-8 ####[facility] LABIA [id number] [place] [address] [place] Glucose [Mass/Vol] 92 mg/dL Normal 74-99 [facility] Comment on above: Order Comment: Speci men Type: BLOOD SPECIMENOrdering Facility: [facility] Address: [address] [place] [address] Result Comment: The [place] [employer] (ADA) provides guidance for cutoff values for fasting glucose and random glucose. The ADA defines fasting as no caloric intake for at least 8 hours. Fasting plasma glucose results between 100 to 125 mg/dL indicate increased risk for diabetes (prediabetes).Fasting plasma glucose results greater than or equal to 126 mg/dL meet the criteria for diagnosis of diabetes. In the absence of unequivocal hyperglycemia, results should be confirmed by repeat testing. In a patient with classic symptoms of hyperglycemia or hyperglycemic crisis, random plasma glucose results greater than or equal to 200 mg/dL meet the criteria for diagnosis of diabetes.Reference: Standards of Medical Care in Diabetes 2016, [place] [employer]. Diabetes Care. 2016.39(Suppl 1). Performed By: #### 2 4323-8 ####[facility] LABCLIA [id number] [place] [address] [place] Potassium [Moles/Vol] 5.2 mmol/L High 3.7-5.1 [facility] Comment on above: Order Comment: Speci men Type: BLOOD SPECIMENOrdering Facility: [facility] Address: [address] [place] [address] Performed By: #### 2 4323-8 ####[facility] LABIA [id number] [place] [address] [place] Protein [Mass/Vol] 6.1 g/dL Low 6.3-8.0 [facility] Comment on above: Order Comment: Speci men Type: BLOOD SPECIMENOrdering Facility: [facility] Address: [address] [place] [address] Performed By: #### 2 4323-8 ####[facility] LABIA [id number] [place] [address] [place] Sodium [Moles/Vol] 136 mmol/L Normal 136-144 [facility] Comment on above: Order Comment: Speci men Type: BLOOD SPECIMENOrdering Facility: [facility] Address: [address] [place] [address] Performed By: #### 2 4323-8 ####[facility] LABIA [id number] [place] [address] [place] Urea nitrogen [Mass/Vol] 15 mg/dL Normal 9-24 [facility] Comment on above: Order Comment: Speci valerie Type: BLOOD SPECIMENOrdering Facility: [facility] Address: [address] [place] [address] Performed By: #### 2 4323-8 ####[facility] LABCLIA [id number] [place] [address] [place] NURSING PROGon 01-29-2023 NURSING PROG Normal [facility] PT panel Coag (PPP)on 2022 INR Coag (PPP) [Relative time] 1.0 {INR} Normal 0.9-1.3 [facility] Comment on above: Order Comment: Alden padilla Type: BLOOD SPECIMENOrdering Facility: [facility] Address: [address] [place] [address] Result Comment: Lisandra min K Antagonist (VKA) Therapeutic Range: INR 2 to 3 (Target INR of 2.5)Note: For patients treated with VKA drugs, such as warfarin, the [place] [employer] 2012 Guideline recommends a therapeutic INR range of 2 to 3 (target INR of 2.5). This recommendation includes high-risk patients with antiphospholipid syndrome with previous arterial or venous thromboembolism, current-generation mechanical or bioprosthetic aortic heart valve replacement.Note: Patients with mechanical aortic valve replacement and additional risk factors for thromboembolic events (atrial fibrillation, previous thromboembolism, LV dysfunction, hypercoagulable conditions) or an older generation mechanical AVR (i.e., ball in-Cage) or any mechanical MVR should have a INR therapeutic range of 2.5 to 3.5 (target INR of 3).Rico BENÍTEZ, et al. Chest 2012, 141:7S-47SZen RA, et al. [facility] 2017, 70: 252-289 Performed By: #### 3 4528-0 ####[facility] LABCLIA [id number] [place] [address] [place] PT Coag (PPP) [Time] 10.1 s Normal 9.7-13.0 [facility] Comment on above: Order Comment: Speci men Type: BLOOD SPECIMENOrdering Facility: [facility] Address: [address] [address] Performed By: #### 3 4528-0 ####[facility] LABCLIA [id number] [place] [address] [place] US LEG VEIN DVT EBONY VAS LABo n 01-29-2023 US LEG VEIN DVT EBONY VAS LAB Normal [facility] ANES POSTPROC EVALon 023 ANES POSTPROC EVAL Normal [facility] ANES PRE-OPon 01-28-2023 ANES PRE-OP Normal [facility] ARTERIAL BLOOD GASESon 01-28 Base deficit (BldA) [Moles/Vol] -3 mmol/L Low -2-0 [facility] Comment on above: Order Comment: Speci men Type: ARTERIAL BLOOD SPECIMENOrdering Facility: [facility] Address: [address] [place] [address] Performed By: #### A LLBG ####[facility] LABIA [id number] [place] [address] [place] Calcium.ionized (Bld) [Mass/Vol] 1.13 mmol/L Normal 1.08-1.30 [facility] Comment on above: Order Comment: Speci men Type: ARTERIAL BLOOD SPECIMENOrdering Facility: [facility] Address: [address] [place] [address] Performed By: #### A LLBG ####[facility] LABCLIA [id number] [place] [address] [place] Calcium.ionized adjusted to pH 7.4 (BldA) [Moles/Vol] 1.08 mmol/L Normal 1.08-1.30 [facility] Comment on above: Order Comment: Speci men Type: ARTERIAL BLOOD SPECIMENOrdering Facility: [facility] Address: [address] [place] [address] Performed By: #### A LLBG ####[facility] LABCLIA [id number] [place] [address] [place] Carboxyhemoglobin (BldA) [Mass fraction] 1.4 % Normal 0.0-2.0 [facility] Comment on above: Order Comment: Speci men Type: ARTERIAL BLOOD SPECIMENOrdering Facility: [facility] Address: [address] [place] [address] Result Comment: Carb oxyhemoglobin Reference Range for Smokers: 2.0-8.0% Performed By: #### A LLBG ####[facility] LABCLIA [id number] [place] [address] [place] CO2 (Bld) [Partial pressure] 46 mm Hg Normal 36-46 [facility] Comment on above: Order Comment: Speci men Type: ARTERIAL BLOOD SPECIMENOrdering Facility: [facility] Address: [address] [place] [address] Performed By: #### A LLBG ####[facility] LABCLIA [id number] [place] [address] [place] CO2 [Moles/Vol] 24 mmol/L Normal 22-28 [facility] Comment on above: Order Comment: Speci men Type: ARTERIAL BLOOD SPECIMENOrdering Facility: [facility] Address: [address] [place] [address] Performed By: #### A LLBG ####[facility] LABCLIA [id number] [place] [address] [place] CO2 adjusted to patient's actual temperature (Bld) [Partial pressure] 46 mmHg Normal 36-46 [facility] Comment on above: Order Comment: Speci men Type: ARTERIAL BLOOD SPECIMENOrdering Facility: [facility] Address: [address] [place], [place] [address] Performed By: #### A LLBG ####[facility] LABCLIA [id number] [place] [address] [place] Glucose [Mass/Vol] 119 mg/dL High 60-105 [facility] Comment on above: Order Comment: Speci men Type: ARTERIAL BLOOD SPECIMENOrdering Facility: [facility] Address: [address] Performed By: #### A LLBG ####[facility] LABCLIA [id number] [place] [address] [place] HCO3 (Bld) [Moles/Vol] 23 mmol/L Normal 22-26 [facility] Comment on above: Order Comment: Speci men Type: ARTERIAL BLOOD SPECIMENOrdering Facility: [facility] Address: [address] Performed By: #### A LLBG ####[facility] LABIA [id number] [place] [address] [place] Hematocrit (Bld) [Volume fraction] 29.6 % Low 39.0-51.0 [facility] Comment on above: Order Comment: Speci men Type: ARTERIAL BLOOD SPECIMENOrdering Facility: [facility] Address: [address] [place], [place] [address] Performed By: #### A LLBG ####[facility] LABIA [id number] [place] [address] [place] Hemoglobin (Bld) [Mass/Vol] 9.6 g/dL Low 13.0-17.0 [facility] Comment on above: Order Comment: Speci men Type: ARTERIAL BLOOD SPECIMENOrdering Facility: [facility] Address: [address] Performed By: #### A LLBG ####[facility] LABIA [id number] [place] [address] [place] Lactate [Moles/Vol] 0.9 mmol/L Normal 0.5-2.2 [facility] Comment on above: Order Comment: Speci men Type: ARTERIAL BLOOD SPECIMENOrdering Facility: [facility] Address: [address] Performed By: #### A LLBG ####[facility] LABCLIA [id number] [address] [place] Methemoglobin (Bld) [Mass fraction] 1.0 % Normal 0.0-1.5 [facility] Comment on above: Order Comment: Speci men Type: ARTERIAL BLOOD SPECIMENOrdering Facility: [facility] Address: [address] [place], [place] [address] Performed By: #### A LLBG ####[facility] LABCLIA [id number] [place] [address] [place] Oxygen (Bld) [Partial pressure] 122 mm Hg High 85-95 [facility] Comment on above: Order Comment: Speci men Type: ARTERIAL BLOOD SPECIMENOrdering Facility: [facility] Address: [address] [place], [place] [address] Performed By: #### A LLBG ####[facility] LABCLIA [id number] [place] [address] [place] Oxygen adjusted to patient's actual temperature (Bld) [Partial pressure] 122 mmHg High 85-95 [facility] Comment on above: Order Comment: Speci men Type: ARTERIAL BLOOD SPECIMENOrdering Facility: [facility] Address: [address] [place] [id number] Performed By: #### A LLBG ####[facility] LABCLIA [id number] [place] [address] [place] Oxyhemoglobin (BldA) [Mass fraction] 96 % Normal 95-98 [facility] Comment on above: Order Comment: Speci men Type: ARTERIAL BLOOD SPECIMENOrdering Facility: [facility] Address: [address] [place] [address] Performed By: #### A LLBG ####[facility] LABIA [id number] [place] [address] [place] pH (Bld) 7.31 [pH] Low 7.35-7.45 [facility] Comment on above: Order Comment: Speci men Type: ARTERIAL BLOOD SPECIMENOrdering Facility: [facility] Address: [address] [place], [place] [address] Performed By: #### A LLBG ####[facility] LABIA [id number] [place] [address] [place] pH adjusted to patient's actual temperature (Bld) 7.31 Low 7.35-7.45 [facility] Comment on above: Order Comment: Speci men Type: ARTERIAL BLOOD SPECIMENOrdering Facility: [facility] Address: [address] Performed By: #### A LLBG ####[facility] LABIA [id number] [place] [address] [place] Potassium [Moles/Vol] 4.5 mmol/L Normal 3.5-5.0 [facility] Comment on above: Order Comment: Speci men Type: ARTERIAL BLOOD SPECIMENOrdering Facility: [facility] Address: [address] [place], [place] [address] Performed By: #### A LLBG ####[facility] LABIA [id number] [place] [address] [place] Sodium [Moles/Vol] 139 mmol/L Normal 136-144 [facility] Comment on above: Order Comment: Speci men Type: ARTERIAL BLOOD SPECIMENOrdering Facility: [facility] Address: [address] [place] [address] Performed By: #### A LLBG ####[facility] LABIA [id number] [place] [address] [place] Base excess Calc (Bld) [Moles/Vol] 0 mmol/L Normal 0-2 [facility] Comment on above: Order Comment: Speci men Type: ARTERIAL BLOOD SPECIMENOrdering Facility: [facility] Address: [address] Performed By: #### A LLBG ####[facility] LABIA [id number] [place] [address] [place] Calcium.ionized (Bld) [Mass/Vol] 1.03 mmol/L Low 1.08-1.30 [facility] Comment on above: Order Comment: Speci men Type: ARTERIAL BLOOD SPECIMENOrdering Facility: [facility] Address: [address] [place], [place] [address] Performed By: #### A LLBG ####[facility] [id number] [place] [address] [place] Calcium.ionized adjusted to pH 7.4 (BldA) [Moles/Vol] 1.01 mmol/L Low 1.08-1.30 [facility] Comment on above: Order Comment: Speci men Type: ARTERIAL BLOOD SPECIMENOrdering Facility: [facility] Address: [address] [place], [place] [address] Performed By: #### A LLBG ####[facility] [id number] [place] [address] [place] Carboxyhemoglobin (BldA) [Mass fraction] 2.0 % Normal 0.0-2.0 [facility] Comment on above: Order Comment: Speci men Type: ARTERIAL BLOOD SPECIMENOrdering Facility: [facility] Address: [address] [place], [place] [address] Result Comment: Carb oxyhemoglobin Reference Range for Smokers: 2.0-8.0% Performed By: #### A LLBG ####[facility] [id number] [place] [address] [place] CO2 (Bld) [Partial pressure] 44 mm Hg Normal 36-46 [facility] Comment on above: Order Comment: Speci men Type: ARTERIAL BLOOD SPECIMENOrdering Facility: [facility] Address: [address] [place], [place] [address] Performed By: #### A LLBG ####[facility] LABCLIA [id number] [place] [address] [place] CO2 [Moles/Vol] 26 mmol/L Normal 22-28 [facility] Comment on above: Order Comment: Speci men Type: ARTERIAL BLOOD SPECIMENOrdering Facility: [facility] Address: [address] [place] [address] Performed By: #### A LLBG ####[facility] LABCLIA [id number] [place] [address] [place] CO2 adjusted to patient's actual temperature (Bld) [Partial pressure] 44 mmHg Normal 36-46 [facility] Comment on above: Order Comment: Speci men Type: ARTERIAL BLOOD SPECIMENOrdering Facility: [facility] Address: [address] [place] [address] Performed By: #### A LLBG ####[facility] LABCLIA [id number] [place] [address] [place] Glucose [Mass/Vol] 101 mg/dL Normal 60-105 [facility] Comment on above: Order Comment: Speci men Type: ARTERIAL BLOOD SPECIMENOrdering Facility: [facility] Address: [address] [place], [place] [address] Performed By: #### A LLBG ####[facility] LABCLIA [id number] [place] [address] [place] HCO3 (Bld) [Moles/Vol] 24 mmol/L Normal 22-26 [facility] Comment on above: Order Comment: Speci men Type: ARTERIAL BLOOD SPECIMENOrdering Facility: [facility] Address: [address] [place], [place] [address] Performed By: #### A LLBG ####[facility] LABCLIA [id number] [place] [address] [place] Hematocrit (Bld) [Volume fraction] 24.5 % Low 39.0-51.0 [facility] Comment on above: Order Comment: Speci men Type: ARTERIAL BLOOD SPECIMENOrdering Facility: [facility] Address: [address] Performed By: #### A LLBG ####[facility] LABIA [id number] [place] [address] [place] Hemoglobin (Bld) [Mass/Vol] 7.9 g/dL Low 13.0-17.0 [facility] Comment on above: Order Comment: Speci men Type: ARTERIAL BLOOD SPECIMENOrdering Facility: [facility] Address: [address] Performed By: #### A LLBG ####[facility] LABIA [id number] [place] [address] [place] Lactate [Moles/Vol] 0.7 mmol/L Normal 0.5-2.2 [facility] Comment on above: Order Comment: Speci men Type: ARTERIAL BLOOD SPECIMENOrdering Facility: [facility] Address: [address] Performed By: #### A LLBG ####[facility] LABIA [id number] [address] [place] Methemoglobin (Bld) [Mass fraction] 0.9 % Normal 0.0-1.5 [facility] Comment on above: Order Comment: Speci men Type: ARTERIAL BLOOD SPECIMENOrdering Facility: [facility] Address: [address] Performed By: #### A LLBG ####[facility] LABIA [id number] [place] [address] [place] Oxygen (Bld) [Partial pressure] 144 mm Hg High 85-95 [facility] Comment on above: Order Comment: Speci men Type: ARTERIAL BLOOD SPECIMENOrdering Facility: [facility] Address: [address] Performed By: #### A LLBG ####[facility] LABCLIA [id number] [place] [address] [place] Oxygen adjusted to patient's actual temperature (Bld) [Partial pressure] 144 mmHg High 85-95 [facility] Comment on above: Order Comment: Speci men Type: ARTERIAL BLOOD SPECIMENOrdering Facility: [facility] Address: [address] [place], [place] [address] Performed By: #### A LLBG ####[facility] LABCLIA [id number] [place] [address] [place] Oxyhemoglobin (BldA) [Mass fraction] 96 % Normal 95-98 [facility] Comment on above: Order Comment: Speci men Type: ARTERIAL BLOOD SPECIMENOrdering Facility: [facility] Address: [address] [place] [address] Performed By: #### A LLBG ####[facility] LABIA [id number] [place] [address] [place] pH (Bld) 7.36 [pH] Normal 7.35-7.45 [facility] Comment on above: Order Comment: Speci men Type: ARTERIAL BLOOD SPECIMENOrdering Facility: [facility] Address: [address] [place], [place] [address] Performed By: #### A LLBG ####[facility] LABIA [id number] [place] [address] [place] pH adjusted to patient's actual temperature (Bld) 7.36 Normal 7.35-7.45 [facility] Comment on above: Order Comment: Speci men Type: ARTERIAL BLOOD SPECIMENOrdering Facility: [facility] Address: [address] [place], [place] [address] Performed By: #### A LLBG ####[facility] LABIA [id number] [place] [address] [place] Potassium [Moles/Vol] 4.3 mmol/L Normal 3.5-5.0 [facility] Comment on above: Order Comment: Speci men Type: ARTERIAL BLOOD SPECIMENOrdering Facility: [facility] Address: [address] [place] [id number] Performed By: #### A LLBG ####[facility] LABCLIA [id number] [place] [address] [place] Sodium [Moles/Vol] 140 mmol/L Normal 136-144 [facility] Comment on above: Order Comment: Speci men Type: ARTERIAL BLOOD SPECIMENOrdering Facility: [facility] Address: [address] [place] [address] Performed By: #### A LLBG ####[facility] LABCLIA [id number] [place] [address] [place] BRIEF OP NOTon 01-28-2023 BRIEF OP NOT Normal [facility] Bacteria Spec Anaerobe Culto n 01-28-2023 Bacteria identified Anaer cx Nom (Unsp spec) Negative Normal [facility] Comment on above: Performed By: #### 1 1475-1, 56174-1, 635-3 ####[facility] LABCLIA [id number] [place] [id number] [place] Bacteria identified Anaer cx Nom (Unsp spec) Abnormal [facility] Comment on above: Performed By: #### 1 1475-1, 635-3, 61684-5 ####[facility] LABCLIA [id number] [facility] [address] [address] [place] Bacteria identified Anaer cx Nom (Unsp spec) Negative Normal [facility] Comment on above: Performed By: #### 1 1475-1, 63219-0, 635-3 ####[facility] LABCLIA [id number] [facility] [address] [address] [place] Bacteria identified Anaer cx Nom (Unsp spec) Negative Normal [facility] Comment on above: Performed By: #### 1 1475-1, 83563-5, 635-3 ####[facility] LABCLIA [id number] [place] [address] [address] [place] Bacteria identified Anaer cx Nom (Unsp spec) Negative Normal [facility] Comment on above: Performed By: #### 1 1475-1, 75935-1, 635-3 ####[facility] LABCLIA [id number] [place] [address] [address] [place] Bacteria Tiss Culton 023 Bacteria identified Cx Nom (Tiss) CULTURE, TISSUE: No growth GRAM STAIN: No organisms seen No Polymorphonuclear Leukocytes Normal [facility] Comment on above: Performed By: #### 1 1475-1, 36427-7, 635-3 ####[facility] LABCLIA [id number] [place] [address] [address] [place] Bacteria identified Cx Nom (Tiss) CULTURE, TISSUE: No growth GRAM STAIN: No organisms seen Rare Polymorphonuclear leukocytes Normal [facility] Comment on above: Performed By: #### 1 1475-1, 635-3, 53509-5 ####[facility] LABCLIA [id number] [address] [address] [place] Bacteria identified Cx Nom (Tiss) CULTURE, TISSUE: No growth GRAM STAIN: No organisms seen No Polymorphonuclear Leukocytes Normal [facility] Comment on above: Performed By: #### 1 1475-1, 42635-5, 635-3 ####[facility] LABCLIA [id number] [place] [address] [address] [place] Bacteria identified Cx Nom (Tiss) CULTURE, TISSUE: No growth GRAM STAIN: No organisms seen No Polymorphonuclear Leukocytes Normal [facility] Comment on above: Performed By: #### 1 1475-1, 04957-6, 635-3 ####[facility] LABCLIA [id number] [address] STATES [facility] Bacteria identified Cx Nom (Tiss) CULTURE, TISSUE: No growth GRAM STAIN: No organisms seen No Polymorphonuclear Leukocytes Normal [facility] Comment on above: Performed By: #### 1 1475-1, 76716-5, 635-3 ####[facility] LABCLIA [id number] [address] [place] CASE MANAGEMon 01-28-2023 CASE MANAGEM Normal [facility] CBC panel Auto (Bld)on 01-28 Erythrocyte distribution width (RBC) [Ratio] 15.9 % High 11.5-15.0 [facility] Comment on above: Order Comment: Speci men Type: BLOOD SPECIMENOrdering Facility: [facility] Address: [address] [place] [address] Performed By: #### 5 8410-2 ####[facility] LABCLIA [id number] [address] [place] Hematocrit (Bld) [Volume fraction] 31.1 % Low 39.0-51.0 [facility] Comment on above: Order Comment: Speci men Type: BLOOD SPECIMENOrdering Facility: [facility] Address: [address] [place] [address] Performed By: #### 5 8410-2 ####[facility] LABCLIA [id number] [place] [address] [place] Hemoglobin (Bld) [Mass/Vol] 10.1 g/dL Low 13.0-17.0 [facility] Comment on above: Order Comment: Speci men Type: BLOOD SPECIMENOrdering Facility: [facility] Address: [address] [place] [address] Performed By: #### 5 8410-2 ####[facility] LABCLIA [id number] [place] [address] [place] MCH (RBC) [Entitic mass] 27.1 pg Normal 26.0-34.0 [facility] Comment on above: Order Comment: Speci men Type: BLOOD SPECIMENOrdering Facility: [facility] Address: [address] [place], [place] [address] Performed By: #### 5 8410-2 ####[facility] LABIA [id number] [place] [address] [place] MCHC (RBC) [Mass/Vol] 32.5 g/dL Normal 30.5-36.0 [facility] Comment on above: Order Comment: Speci men Type: BLOOD SPECIMENOrdering Facility: [facility] Address: [address] [place] [address] Performed By: #### 5 8410-2 ####[facility] LABIA [id number] [place] [address] [place] MCV (RBC) [Entitic vol] 83.4 fL Normal 80.0-100.0 [facility] Comment on above: Order Comment: Speci men Type: BLOOD SPECIMENOrdering Facility: [facility] Address: [address] [place], [place] [address] Performed By: #### 5 8410-2 ####[facility] LABIA [id number] [place] [address] [place] Nucleated RBC (Bld) [#/Vol] 10*3/uL Normal <0.01 [facility] Comment on above: Order Comment: Speci men Type: BLOOD SPECIMENOrdering Facility: [facility] Address: [address] [place], [place] [address] Performed By: #### 5 8410-2 ####[facility] LABIA [id number] [place] [address] [place] Platelet mean volume (Bld) [Entitic vol] 10.0 fL Normal 9.0-12.7 [facility] Comment on above: Order Comment: Speci men Type: BLOOD SPECIMENOrdering Facility: [facility] Address: [address] Performed By: #### 5 8410-2 ####[facility] LABCLIA [id number] [place] [address] [place] Platelets (Bld) [#/Vol] 313 10*3/uL Normal 150-400 [facility] Comment on above: Order Comment: Speci men Type: BLOOD SPECIMENOrdering Facility: [facility] Address: [address] Performed By: #### 5 8410-2 ####[facility] LABIA [id number] [place] [address] [place] RBC (Bld) [#/Vol] 3.73 10*6/uL Low 4.20-6.00 [facility] Comment on above: Order Comment: Speci men Type: BLOOD SPECIMENOrdering Facility: [facility] Address: [address] [place], [place] [address] Performed By: #### 5 8410-2 ####[facility] LABIA [id number] [place] [address] [place] WBC (Bld) [#/Vol] 18.85 10*3/uL High 3.70-11.00 [facility] Comment on above: Order Comment: Speci men Type: BLOOD SPECIMENOrdering Facility: [facility] Address: [address] [place] [address] Performed By: #### 5 8410-2 ####[facility] LABIA [id number] [place] [address] [place] Erythrocyte distribution width (RBC) [Ratio] 17.4 % High 11.5-15.0 [facility] Comment on above: Order Comment: Speci men Type: BLOOD SPECIMENOrdering Facility: [facility] Address: [address] [place], [place] [address] Performed By: #### 5 8410-2 ####[facility] LABCLIA [id number] [place] [address] [place] Hematocrit (Bld) [Volume fraction] 25.0 % Low 39.0-51.0 [facility] Comment on above: Order Comment: Speci men Type: BLOOD SPECIMENOrdering Facility: [facility] Address: [address] [place] [address] Performed By: #### 5 8410-2 ####[facility] [id number] [place] [address] [place] Hemoglobin (Bld) [Mass/Vol] 8.0 g/dL Low 13.0-17.0 [facility] Comment on above: Order Comment: Speci men Type: BLOOD SPECIMENOrdering Facility: [facility] Address: [address] [place] [address] Performed By: #### 5 8410-2 ####[facility] [id number] [place] [address] [place] MCH (RBC) [Entitic mass] 26.0 pg Normal 26.0-34.0 [facility] Comment on above: Order Comment: Speci men Type: BLOOD SPECIMENOrdering Facility: [facility] Address: [address] [place] [address] Performed By: #### 5 8410-2 ####[facility] [id number] [place] [address] [place] MCHC (RBC) [Mass/Vol] 32.0 g/dL Normal 30.5-36.0 [facility] Comment on above: Order Comment: Speci men Type: BLOOD SPECIMENOrdering Facility: [facility] Address: [address] [place] [address] Performed By: #### 5 8410-2 ####[facility] [id number] [place] [address] [place] MCV (RBC) [Entitic vol] 81.2 fL Normal 80.0-100.0 [facility] Comment on above: Order Comment: Speci men Type: BLOOD SPECIMENOrdering Facility: [facility] Address: [address] Performed By: #### 5 8410-2 ####[facility] LABCLIA [id number] [place] [address] [place] Nucleated RBC (Bld) [#/Vol] 10*3/uL Normal <0.01 [facility] Comment on above: Order Comment: Speci men Type: BLOOD SPECIMENOrdering Facility: [facility] Address: [address] [place], [place] [address] Performed By: #### 5 8410-2 ####[facility] LABIA [id number] [place] [address] [place] Platelet mean volume (Bld) [Entitic vol] 10.7 fL Normal 9.0-12.7 [facility] Comment on above: Order Comment: Speci men Type: BLOOD SPECIMENOrdering Facility: [facility] Address: [address] [place], [place] [address] Performed By: #### 5 8410-2 ####[facility] LABIA [id number] [place] [address] [place] Platelets (Bld) [#/Vol] 304 10*3/uL Normal 150-400 [facility] Comment on above: Order Comment: Speci men Type: BLOOD SPECIMENOrdering Facility: [facility] Address: [address] Performed By: #### 5 8410-2 ####[facility] LABCLIA [id number] [place] [address] [place] RBC (Bld) [#/Vol] 3.08 10*6/uL Low 4.20-6.00 [facility] Comment on above: Order Comment: Speci men Type: BLOOD SPECIMENOrdering Facility: [facility] Address: [address] Performed By: #### 5 8410-2 ####[facility] LABCLIA [id number] [place] [address] [place] WBC (Bld) [#/Vol] 16.82 10*3/uL High 3.70-11.00 [facility] Comment on above: Order Comment: Speci men Type: BLOOD SPECIMENOrdering Facility: [facility] Address: [address] Performed By: #### 5 8410-2 ####[facility] LABCLIA [id number] [place] [address] [place] CONSULT PROGon 01-28-2023 CONSULT PROG Normal [facility] CONSULT PROG Normal [facility] Comprehensive metabolic 2000 panelon 01-28-2023 Albumin [Mass/Vol] 2.0 g/dL Low 3.9-4.9 [facility] Comment on above: Order Comment: Speci men Type: BLOOD SPECIMENOrdering Facility: [facility] Address: [address] [place], [place] [address] Performed By: #### 2 4323-8, 2776-11, ####[facility] LABCLIA [id number] [place] [address] [place] ALP [Catalytic activity/Vol] 286 U/L High 38-113 [facility] Comment on above: Order Comment: Speci men Type: BLOOD SPECIMENOrdering Facility: [facility] Address: [address] Performed By: #### 2 4323-8, 27705-14, ####[facility] LABCLIA [id number] [place] [address] [place] ALT [Catalytic activity/Vol] 40 U/L Normal 10-54 [facility] Comment on above: Order Comment: Speci men Type: BLOOD SPECIMENOrdering Facility: [facility] Address: [address] [place] [address] Performed By: #### 2 4323-8, 2776-11, ####[facility] LABCLIA [id number] [place] [address] [place] Anion gap [Moles/Vol] 9 mmol/L Normal 9-18 [facility] Comment on above: Order Comment: Speci men Type: BLOOD SPECIMENOrdering Facility: [facility] Address: [address] [place] [address] Performed By: #### 2 4323-8, 2776-11, ####[facility] LABCLIA [id number] [place] [address] [place] AST [Catalytic activity/Vol] 47 U/L High 14-40 [facility] Comment on above: Order Comment: Speci men Type: BLOOD SPECIMENOrdering Facility: [facility] Address: [address] [place] [address] Performed By: #### 2 4323-8, 2776-11, ####[facility] LABCLIA [id number] [place] [address] [place] Bilirubin [Mass/Vol] 0.4 mg/dL Normal 0.2-1.3 [facility] Comment on above: Order Comment: Speci men Type: BLOOD SPECIMENOrdering Facility: [facility] Address: [address] [place], [place] [address] Performed By: #### 2 4323-8, 2776-11, ####[facility] LABCLIA [id number] [place] [address] [place] Calcium [Mass/Vol] 7.0 mg/dL Low 8.5-10.2 [facility] Comment on above: Order Comment: Speci men Type: BLOOD SPECIMENOrdering Facility: [facility] Address: [address] Performed By: #### 2 4323-8, 2777, ####[facility] LABCLIA [id number] [place] [address] [place] Chloride [Moles/Vol] 105 mmol/L Normal 97-105 [facility] Comment on above: Order Comment: Speci men Type: BLOOD SPECIMENOrdering Facility: [facility] Address: [address] [place], [place] [address] Performed By: #### 2 4323-8, 2777, ####[facility] LABCLIA [id number] [place] [address] [place] CO2 [Moles/Vol] 22 mmol/L Normal 22-30 [facility] Comment on above: Order Comment: Speci men Type: BLOOD SPECIMENOrdering Facility: [facility] Address: [address] [place], [place] [address] Performed By: #### 2 4323-8, 27705-14, ####[facility] LABCLIA [id number] [place] [address] [place] Creatinine [Mass/Vol] 0.95 mg/dL Normal 0.73-1.22 [facility] Comment on above: Order Comment: Speci men Type: BLOOD SPECIMENOrdering Facility: [facility] Address: [address] [place], [place] [address] Performed By: #### 2 4323-8, 2777, ####[facility] LABCLIA [id number] [place] [address] [place] ESTIMATED GLOMERULAR FILTRATION RATE 92 mL/min/1.73m??? Normal >=60 [facility] Comment on above: Order Comment: Speci men Type: BLOOD SPECIMENOrdering Facility: [facility] Address: [address] [place], [place] [address] Result Comment: Veronica mated Glomerular Filtration Rate (eGFR) is calculated using the 2020 CKD-EPI creatinine equation. This equation utilizes serum creatinine, sex, and age as parameters. The creatinine assay has traceable calibration to isotope dilution-mass spectrometry. Refer to KDIGO guidelines for clinical interpretation. In patients with unstable renal function, e.g. those with acute kidney injury, the eGFR may not accurately reflect actual GFR. Performed By: #### 2 4323-8, 2776-11, ####[facility] LABCLIA [id number] [address] [address] [place] Glucose [Mass/Vol] 105 mg/dL High 74-99 [facility] Comment on above: Order Comment: Specmariela padilla Type: BLOOD SPECIMENOrdering Facility: [facility] Address: [address] [place] [id number] Result Comment: The [place] [employer] (ADA) provides guidance for cutoff values for fasting glucose and random glucose. The ADA defines fasting as no caloric intake for at least 8 hours. Fasting plasma glucose results between 100 to 125 mg/dL indicate increased risk for diabetes (prediabetes).Fasting plasma glucose results greater than or equal to 126 mg/dL meet the criteria for diagnosis of diabetes. In the absence of unequivocal hyperglycemia, results should be confirmed by repeat testing. In a patient with classic symptoms of hyperglycemia or hyperglycemic crisis, random plasma glucose results greater than or equal to 200 mg/dL meet the criteria for diagnosis of diabetes.Reference: Standards of Medical Care in Diabetes 2016, [place] [employer]. Diabetes Care. 2016.39(Suppl 1). Performed By: #### 2 4323-8, 2776-11, ####[facility] LABIA [id number] [address] [address] [place] Potassium [Moles/Vol] 4.4 mmol/L Normal 3.7-5.1 [facility] Comment on above: Order Comment: Alden padilla Type: BLOOD SPECIMENOrdering Facility: [facility] Address: [address] [place] [address] Performed By: #### 2 4323-8, 2776-11, ####[facility] LABCLIA [id number] [place] [address] [place] Protein [Mass/Vol] 5.8 g/dL Low 6.3-8.0 [facility] Comment on above: Order Comment: Speci men Type: BLOOD SPECIMENOrdering Facility: [facility] Address: [address] [place], [place] [address] Performed By: #### 2 4323-8, 2776-11, ####[facility] LABCLIA [id number] [place] [address] [place] Sodium [Moles/Vol] 136 mmol/L Normal 136-144 [facility] Comment on above: Order Comment: Speci men Type: BLOOD SPECIMENOrdering Facility: [facility] Address: [address] [place] [address] Performed By: #### 2 4323-8, 2776-11, ####[facility] LABIA [id number] [place] [address] [place] Urea nitrogen [Mass/Vol] 18 mg/dL Normal 9-24 [facility] Comment on above: Order Comment: Speci men Type: BLOOD SPECIMENOrdering Facility: [facility] Address: [address] [place], [place] [address] Performed By: #### 2 4323-8, 2776-11, ####[facility] LABIA [id number] [place] [id number] [place] Magnesium SerPl-mCncon 01-28 Magnesium [Mass/Vol] 1.9 mg/dL Normal 1.7-2.3 [facility] Comment on above: Order Comment: Speci men Type: BLOOD SPECIMENOrdering Facility: [facility] Address: [address] Performed By: #### 2 4323-8, 2777-1, 49970-9 ####[facility] LABCLIA [id number] [place] [address] [place] Microorganism Spec Culton Microorganism identified Cx Nom (Unsp spec) CULTURE, FUNGAL: No Fungus isolated after 28 days FUNGAL SMEAR: No fungus seen Normal [facility] Comment on above: Performed By: #### 1 1475-1, 13833-1, 635-3 ####[facility] LABCLIA [id number] [place] [address] [place] Microorganism identified Cx Nom (Unsp spec) CULTURE, AFB: No Acid Fast Bacilli isolated after 42 days AFB STAIN: No acid fast bacilli seen by flurochrome stain Normal [facility] Comment on above: Performed By: #### 1 1475-1, 28216-2, 635-3 ####[facility] LABCLIA [id number] [place] [address] [place] Microorganism identified Cx Nom (Unsp spec) CULTURE, FUNGAL: No Fungus isolated after 28 days FUNGAL SMEAR: No fungus seen Normal [facility] Comment on above: Performed By: #### 1 1475-1, 635-3, 50983-2 ####[facility] LABCLIA [id number] [address] [address] [place] Microorganism identified Cx Nom (Unsp spec) CULTURE, AFB: No Acid Fast Bacilli isolated after 42 days AFB STAIN: No acid fast bacilli seen by flurochrome stain Normal [facility] Comment on above: Performed By: #### 1 1475-1, 635-3, 92698-5 ####[facility] LABCLIA [id number] [place] [address] [place] Microorganism identified Cx Nom (Unsp spec) CULTURE, FUNGAL: No Fungus isolated after 28 days FUNGAL SMEAR: No fungus seen Normal [facility] Comment on above: Performed By: #### 1 1475-1, 06335-7, 635-3 ####[facility] LABCLIA [id number] [facility] [address] [address] [place] Microorganism identified Cx Nom (Unsp spec) CULTURE, AFB: No Acid Fast Bacilli isolated after 42 days AFB STAIN: No acid fast bacilli seen by flurochrome stain Normal [facility] Comment on above: Performed By: #### 1 1475-1, 55287-6, 635-3 ####[facility] LABCLIA [id number] [place] [address] [address] [place] Microorganism identified Cx Nom (Unsp spec) CULTURE, FUNGAL: No Fungus isolated after 28 days FUNGAL SMEAR: No fungus seen Normal [facility] Comment on above: Performed By: #### 1 1475-1, 63958-2, 635-3 ####[facility] LABCLIA [id number] [facility] [place] [id number] [place] Microorganism identified Cx Nom (Unsp spec) CULTURE, AFB: No Acid Fast Bacilli isolated after 42 days AFB STAIN: No acid fast bacilli seen by flurochrome stain Normal [facility] Comment on above: Performed By: #### 1 1475-1, 74268-2, 635-3 ####[facility] LABCLIA [id number] [address] [address] [place] Microorganism identified Cx Nom (Unsp spec) CULTURE, FUNGAL: No Fungus isolated after 28 days FUNGAL SMEAR: No fungus seen Normal [facility] Comment on above: Performed By: #### 1 1475-1, 27582-5, 635-3 ####[facility] LABCLIA [id number] [address] [address] [place] Microorganism identified Cx Nom (Unsp spec) CULTURE, AFB: No Acid Fast Bacilli isolated after 42 days AFB STAIN: No acid fast bacilli seen by flurochrome stain Normal [facility] Comment on above: Performed By: #### 1 1475-1, 42651-3, 635-3 ####[facility] LABCLIA [id number] [place] [id number] [place] OPERATIVE NOon 01-28-2023 OPERATIVE NO Normal [facility] PT panel Coag (PPP)on 2022 INR Coag (PPP) [Relative time] 1.0 {INR} Normal 0.9-1.3 [facility] Comment on above: Order Comment: Speci men Type: BLOOD SPECIMENOrdering Facility: [facility] Address: [address] [place] [address] Result Comment: Lisandra min K Antagonist (VKA) Therapeutic Range: INR 2 to 3 (Target INR of 2.5)Note: For patients treated with VKA drugs, such as warfarin, the [place] [employer] 2012 Guideline recommends a therapeutic INR range of 2 to 3 (target INR of 2.5). This recommendation includes high-risk patients with antiphospholipid syndrome with previous arterial or venous thromboembolism, current-generation mechanical or bioprosthetic aortic heart valve replacement.Note: Patients with mechanical aortic valve replacement and additional risk factors for thromboembolic events (atrial fibrillation, previous thromboembolism, LV dysfunction, hypercoagulable conditions) or an older generation mechanical AVR (i.e., ball in-Cage) or any mechanical MVR should have a INR therapeutic range of 2.5 to 3.5 (target INR of 3).Rico GH, et al. Chest 2012, 141:7S-47SNishjoel RA, et al. [facility] 2017, 70: 252-289 Performed By: #### 1 4979-9, 82233-0 ####[facility] LABCLIA [id number] [address] [address] [place] PT Coag (PPP) [Time] 9.9 s Normal 9.7-13.0 [facility] Comment on above: Order Comment: Speci men Type: BLOOD SPECIMENOrdering Facility: [facility] Address: [address] [place] [address] Performed By: #### 1 4979-9, 73733-9 ####[facility] LABCLIA [id number] [place] [address] [place] Phosphate SerPl-mCncon 01-28 Phosphate [Mass/Vol] 3.0 mg/dL Normal 2.7-4.8 [facility] Comment on above: Order Comment: Speci men Type: BLOOD SPECIMENOrdering Facility: [facility] Address: [address] [place] [address] Performed By: #### 2 4323-8, 2777-1, 71553-8 ####[facility] LABCLIA [id number] [place] [address] [place] THERAPY NTon 01-28-2023 THERAPY NT Normal [facility] aPTT PPPon 01-28-2023 aPTT Coag (PPP) [Time] 23.3 s Normal 23.0-32.4 [facility] Comment on above: Order Comment: Speci men Type: BLOOD SPECIMENOrdering Facility: [facility] Address: [address] [place] [address] Performed By: #### 1 4979-9, 62125-2 ####[facility] LABIA [id number] [address] [place] CASE MANAGEMon 01-27-2023 CASE MANAGEM Normal [facility] CBC panel Auto (Bld)on 01-27 Erythrocyte distribution width (RBC) [Ratio] 17.2 % High 11.5-15.0 [facility] Comment on above: Order Comment: Speci men Type: BLOOD SPECIMENOrdering Facility: [facility] Address: [address] [place] [address] Performed By: #### 5 8410-2 ####[facility] LABIA [id number] [address] [place] Hematocrit (Bld) [Volume fraction] 27.1 % Low 39.0-51.0 [facility] Comment on above: Order Comment: Speci men Type: BLOOD SPECIMENOrdering Facility: [facility] Address: [address] [place] [address] Performed By: #### 5 8410-2 ####[facility] LABIA [id number] [place] [address] [place] Hemoglobin (Bld) [Mass/Vol] 8.9 g/dL Low 13.0-17.0 [facility] Comment on above: Order Comment: Speci men Type: BLOOD SPECIMENOrdering Facility: [facility] Address: [address] [place] [address] Performed By: #### 5 8410-2 ####[facility] [id number] [place] [address] [place] MCH (RBC) [Entitic mass] 26.3 pg Normal 26.0-34.0 [facility] Comment on above: Order Comment: Speci men Type: BLOOD SPECIMENOrdering Facility: [facility] Address: [address] Performed By: #### 5 8410-2 ####[facility] [id number] [place] [address] [place] MCHC (RBC) [Mass/Vol] 32.8 g/dL Normal 30.5-36.0 [facility] Comment on above: Order Comment: Speci men Type: BLOOD SPECIMENOrdering Facility: [facility] Address: [address] Performed By: #### 5 8410-2 ####[facility] [id number] [place] [address] [place] MCV (RBC) [Entitic vol] 79.9 fL Low 80.0-100.0 [facility] Comment on above: Order Comment: Speci men Type: BLOOD SPECIMENOrdering Facility: [facility] Address: [address] [place], [place] [address] Performed By: #### 5 8410-2 ####[facility] LABCLIA [id number] [place] [address] [place] Nucleated RBC (Bld) [#/Vol] 10*3/uL Normal <0.01 [facility] Comment on above: Order Comment: Speci men Type: BLOOD SPECIMENOrdering Facility: [facility] Address: [address] [place] [address] Performed By: #### 5 8410-2 ####[facility] LABIA [id number] [place] [address] [place] Platelet mean volume (Bld) [Entitic vol] 10.5 fL Normal 9.0-12.7 [facility] Comment on above: Order Comment: Speci men Type: BLOOD SPECIMENOrdering Facility: [facility] Address: [address] [place] [address] Performed By: #### 5 8410-2 ####[facility] LABIA [id number] [place] [address] [place] Platelets (Bld) [#/Vol] 235 10*3/uL Normal 150-400 [facility] Comment on above: Order Comment: Speci men Type: BLOOD SPECIMENOrdering Facility: [facility] Address: [address] [place] [address] Performed By: #### 5 8410-2 ####[facility] LABIA [id number] [place] [address] [place] RBC (Bld) [#/Vol] 3.39 10*6/uL Low 4.20-6.00 [facility] Comment on above: Order Comment: Speci men Type: BLOOD SPECIMENOrdering Facility: [facility] Address: [address] [place] [address] Performed By: #### 5 8410-2 ####[facility] LABIA [id number] [place] [address] [place] WBC (Bld) [#/Vol] 20.39 10*3/uL High 3.70-11.00 [facility] Comment on above: Order Comment: Speci men Type: BLOOD SPECIMENOrdering Facility: [facility] Address: [address] [place] [address] Performed By: #### 5 8410-2 ####[facility] LABCLIA [id number] [place] [address] [place] CONSULT PROGon 01-27-2023 CONSULT PROG Normal [facility] CONSULT PROG Normal [facility] Comprehensive metabolic 2000 panelon 01-27-2023 Albumin [Mass/Vol] 1.8 g/dL Low 3.9-4.9 [facility] Comment on above: Order Comment: Speci men Type: BLOOD SPECIMENOrdering Facility: [facility] Address: [address] [place], [place] [address] Performed By: #### 2 4323-8, 2777, ####[facility] LABCLIA [id number] [place] [address] [place] ALP [Catalytic activity/Vol] 337 U/L High 38-113 [facility] Comment on above: Order Comment: Speci men Type: BLOOD SPECIMENOrdering Facility: [facility] Address: [address] [place], [place] [address] Performed By: #### 2 4323-8, 2777, ####[facility] LABCLIA [id number] [place] [address] [place] ALT [Catalytic activity/Vol] 29 U/L Normal 10-54 [facility] Comment on above: Order Comment: Speci men Type: BLOOD SPECIMENOrdering Facility: [facility] Address: [address] [place], [place] [address] Performed By: #### 2 4323-8, 2777-, ####[facility] LABCLIA [id number] [place] [address] [place] Anion gap [Moles/Vol] 12 mmol/L Normal 9-18 [facility] Comment on above: Order Comment: Speci men Type: BLOOD SPECIMENOrdering Facility: [facility] Address: [address] [place] [address] Performed By: #### 2 4323-8, 2777-, ####[facility] LABIA [id number] [place] [address] [place] AST [Catalytic activity/Vol] 35 U/L Normal 14-40 [facility] Comment on above: Order Comment: Speci men Type: BLOOD SPECIMENOrdering Facility: [facility] Address: [address] [place] [address] Performed By: #### 2 4323-8, 2777, ####[facility] LABIA [id number] [place] [address] [place] Bilirubin [Mass/Vol] 0.5 mg/dL Normal 0.2-1.3 [facility] Comment on above: Order Comment: Speci men Type: BLOOD SPECIMENOrdering Facility: [facility] Address: [address] [place] [address] Performed By: #### 2 4323-8, 27705-14, ####[facility] LABIA [id number] [place] [address] [place] Calcium [Mass/Vol] 6.9 mg/dL Low 8.5-10.2 [facility] Comment on above: Order Comment: Speci men Type: BLOOD SPECIMENOrdering Facility: [facility] Address: [address] [place] [address] Performed By: #### 2 4323-8, 27771, ####[facility] LABCLIA [id number] [place] [address] [place] Chloride [Moles/Vol] 102 mmol/L Normal 97-105 [facility] Comment on above: Order Comment: Speci men Type: BLOOD SPECIMENOrdering Facility: [facility] Address: [address] [place] [address] Performed By: #### 2 4323-8, 2777-1, 21751-8 ####[facility] LABCLIA [id number] [address] [place] CO2 [Moles/Vol] 21 mmol/L Low 22-30 [facility] Comment on above: Order Comment: Speci men Type: BLOOD SPECIMENOrdering Facility: [facility] Address: [address] [place] [address] Performed By: #### 2 4323-8, 2777-1, ####[facility] LABCLIA [id number] [address] OF [facility] Creatinine [Mass/Vol] 0.87 mg/dL Normal 0.73-1.22 [facility] Comment on above: Order Comment: Speci men Type: BLOOD SPECIMENOrdering Facility: [facility] Address: [address] [place] [address] Performed By: #### 2 4323-8, 2777-1, ####[facility] LABCLIA [id number] [address] STATES OF [facility] ESTIMATED GLOMERULAR FILTRATION RATE 99 mL/min/1.73m??? Normal >=60 [facility] Comment on above: Order Comment: Speci men Type: BLOOD SPECIMENOrdering Facility: [facility] Address: [address] [place] [address] Result Comment: Veronica mated Glomerular Filtration Rate (eGFR) is calculated using the 2020 CKD-EPI creatinine equation. This equation utilizes serum creatinine, sex, and age as parameters. The creatinine assay has traceable calibration to isotope dilution-mass spectrometry. Refer to KDIGO guidelines for clinical interpretation. In patients with unstable renal function, e.g. those with acute kidney injury, the eGFR may not accurately reflect actual GFR. Performed By: #### 2 4323-8, 2776-11, ####[facility] LABCLIA [id number] [address] [address] [place] Glucose [Mass/Vol] 142 mg/dL High 74-99 [facility] Comment on above: Order Comment: Speci men Type: BLOOD SPECIMENOrdering Facility: [facility] Address: [address] [place] [address] Result Comment: The [place] [employer] (ADA) provides guidance for cutoff values for fasting glucose and random glucose. The ADA defines fasting as no caloric intake for at least 8 hours. Fasting plasma glucose results between 100 to 125 mg/dL indicate increased risk for diabetes (prediabetes).Fasting plasma glucose results greater than or equal to 126 mg/dL meet the criteria for diagnosis of diabetes. In the absence of unequivocal hyperglycemia, results should be confirmed by repeat testing. In a patient with classic symptoms of hyperglycemia or hyperglycemic crisis, random plasma glucose results greater than or equal to 200 mg/dL meet the criteria for diagnosis of diabetes.Reference: Standards of Medical Care in Diabetes 2016, [place] [employer]. Diabetes Care. 2016.39(Suppl 1). Performed By: #### 2 4323-8, 2776-11, ####[facility] LABCLIA [id number] [address] [address] [place] Potassium [Moles/Vol] 4.7 mmol/L Normal 3.7-5.1 [facility] Comment on above: Order Comment: Cecilyi men Type: BLOOD SPECIMENOrdering Facility: [facility] Address: [address] [place] [address] Performed By: #### 2 4323-8, 2776-11, ####[facility] LABCLIA [id number] [address] [address] [place] Protein [Mass/Vol] 5.1 g/dL Low 6.3-8.0 [facility] Comment on above: Order Comment: Speci men Type: BLOOD SPECIMENOrdering Facility: [facility] Address: [address] Performed By: #### 2 4323-8, 2776-11, ####[facility] LABCLIA [id number] [place] [address] [place] Sodium [Moles/Vol] 135 mmol/L Low 136-144 [facility] Comment on above: Order Comment: Speci men Type: BLOOD SPECIMENOrdering Facility: [facility] Address: [address] Performed By: #### 2 4323-8, 2776-11, ####[facility] LABCLIA [id number] [place] [address] [place] Urea nitrogen [Mass/Vol] 18 mg/dL Normal 9-24 [facility] Comment on above: Order Comment: Speci men Type: BLOOD SPECIMENOrdering Facility: [facility] Address: [address] [place], [place] [address] Performed By: #### 2 4323-8, 2776-11, ####[facility] LABIA [id number] [place] [address] [place] Magnesium SerPl-mCncon 01-27 Magnesium [Mass/Vol] 1.8 mg/dL Normal 1.7-2.3 [facility] Comment on above: Order Comment: Speci men Type: BLOOD SPECIMENOrdering Facility: [facility] Address: [address] Performed By: #### 2 4323-8, 2776-11, ####[facility] LABCLIA [id number] [place] [id number] [place] PT panel Coag (PPP)on 2022 INR Coag (PPP) [Relative time] 1.0 {INR} Normal 0.9-1.3 [facility] Comment on above: Order Comment: Alden padilla Type: BLOOD SPECIMENOrdering Facility: [facility] Address: [address] [place] [id number] Result Comment: Lisandra min K Antagonist (VKA) Therapeutic Range: INR 2 to 3 (Target INR of 2.5)Note: For patients treated with VKA drugs, such as warfarin, the [place] [employer] 2012 Guideline recommends a therapeutic INR range of 2 to 3 (target INR of 2.5). This recommendation includes high-risk patients with antiphospholipid syndrome with previous arterial or venous thromboembolism, current-generation mechanical or bioprosthetic aortic heart valve replacement.Note: Patients with mechanical aortic valve replacement and additional risk factors for thromboembolic events (atrial fibrillation, previous thromboembolism, LV dysfunction, hypercoagulable conditions) or an older generation mechanical AVR (i.e., ball in-Cage) or any mechanical MVR should have a INR therapeutic range of 2.5 to 3.5 (target INR of 3).Rico GH, et al. Chest 2012, 141:7S-47SNishimura RA, et al. [facility] 2017, 70: 252-289 Performed By: #### 3 4528-0, 91334-4 ####[facility] [id number] [place] [address] [place] PT Coag (PPP) [Time] 10.2 s Normal 9.7-13.0 [facility] Comment on above: Order Comment: Alden padilla Type: BLOOD SPECIMENOrdering Facility: [facility] Address: [place] [address] Performed By: #### 3 4528-0, 07845-5 ####[facility] [id number] [place] [address] [place] Phosphate SerPl-mCncon 01-27 Phosphate [Mass/Vol] 3.3 mg/dL Normal 2.7-4.8 [facility] Comment on above: Order Comment: Alden padilla Type: BLOOD SPECIMENOrdering Facility: [facility] Address: [address] [place] [address] Performed By: #### 2 4323-8, 2777-1, 66346-6 ####[facility] LABCLIA [id number] [place] [address] [place] TYPE + SCREENon 01-27-2023 ABO A Normal [facility] Comment on above: Order Comment: Speci men Type: BLOOD SPECIMENOrdering Facility: [facility] Address: [address] [place] [address] Performed By: #### T SCR ####[facility] BLOOD BANKCLIA [id number] [address] HISTORICAL AB SCR STATUS Negative Normal [facility] Comment on above: Order Comment: Speci men Type: BLOOD SPECIMENOrdering Facility: [facility] Address: [address] [place] [address] Performed By: #### T SCR ####[facility] BLOOD BANKCLIA [id number] [place] [address] [place] Rh Nom (Bld) Positive Normal [facility] Comment on above: Order Comment: Speci men Type: BLOOD SPECIMENOrdering Facility: [facility] Address: [address] [place] [address] Performed By: #### T SCR ####[facility] BLOOD BANKCLIA [id number] [address] [place] TYPE AND SCREEN EXPIRATION 01/30/2023 23:59 Normal [facility] Comment on above: Order Comment: Speci men Type: BLOOD SPECIMENOrdering Facility: [facility] Address: [address] [place], [place] [address] Performed By: #### T SCR ####[facility] BLOOD BANKCLIA [id number] [place] [address] [place] aPTT PPPon 01-27-2023 aPTT Coag (PPP) [Time] 24.2 s Normal 23.0-32.4 [facility] Comment on above: Order Comment: Speci men Type: BLOOD SPECIMENOrdering Facility: [facility] Address: [address] [place], [place] [address] Performed By: #### 3 4528-0, 90991-0 ####[facility] LABCLIA [id number] [place] [address] [place] ANES POSTPROC EVALon 023 ANES POSTPROC EVAL Normal [facility] ANES PRE-OPon 01-26-2023 ANES PRE-OP Normal [facility] BRIEF OP NOTon 01-26-2023 BRIEF OP NOT Normal [facility] Bacteria Spec Anaerobe Culto n 01-26-2023 Bacteria identified Anaer cx Nom (Unsp spec) Negative Normal [facility] Comment on above: Performed By: #### 4 3408-4, 705-3 ####[facility] LABCLIA [id number] [place] [address] [place] Bacteria identified Anaer cx Nom (Unsp spec) Negative Normal [facility] Comment on above: Performed By: #### 4 3408-4, 635-3 ####[facility] LABCLIA [id number] [place] [address] [place] Bacteria Tiss Culton 023 Bacteria identified Cx Nom (Tiss) Abnormal [facility] Comment on above: Performed By: #### 4 3408-4, 635-3 ####[facility] LABCLIA [id number] [place] [address] [place] Bacteria identified Cx Nom (Tiss) ORGANISM ID: 1 Rare Streptococcus pyogenes (group a streptococcus) Refer to specimen collected on 01/24/2023 at 0807 ([id number]) GRAM STAIN: No organisms seen No Polymorphonuclear Leukocytes Abnormal [facility] Comment on above: Performed By: #### 4 3408-4, 635-3 ####[facility] LABIA [id number] [place] [address] [place] CASE MANAGEMon 01-26-2023 CASE MANAGEM Normal [facility] CASE MGT INIT ASSESon 2022 CASE MGT INIT ASSES Normal [facility] CBC panel Auto (Bld)on 01-26 Erythrocyte distribution width (RBC) [Ratio] 16.6 % High 11.5-15.0 [facility] Comment on above: Order Comment: Speci men Type: BLOOD SPECIMENOrdering Facility: [facility] Address: [address] [place] [address] Performed By: #### 5 8410-2 ####[facility] [id number] [place] [address] [place] Hematocrit (Bld) [Volume fraction] 28.2 % Low 39.0-51.0 [facility] Comment on above: Order Comment: Speci men Type: BLOOD SPECIMENOrdering Facility: [facility] Address: [address] [place] [address] Performed By: #### 5 8410-2 ####[facility] [id number] [place] [address] [place] Hemoglobin (Bld) [Mass/Vol] 9.7 g/dL Low 13.0-17.0 [facility] Comment on above: Order Comment: Speci men Type: BLOOD SPECIMENOrdering Facility: [facility] Address: [address] [place] [address] Performed By: #### 5 8410-2 ####[facility] [id number] [place] [address] [place] MCH (RBC) [Entitic mass] 26.4 pg Normal 26.0-34.0 [facility] Comment on above: Order Comment: Speci men Type: BLOOD SPECIMENOrdering Facility: [facility] Address: [address] [place], [place] [address] Performed By: #### 5 8410-2 ####[facility] LABCLIA [id number] [address] STATES [facility] MCHC (RBC) [Mass/Vol] 34.4 g/dL Normal 30.5-36.0 [facility] Comment on above: Order Comment: Speci men Type: BLOOD SPECIMENOrdering Facility: [facility] Address: [address] [place] [address] Performed By: #### 5 8410-2 ####[facility] LABIA [id number] [place] [address] [place] MCV (RBC) [Entitic vol] 76.8 fL Low 80.0-100.0 [facility] Comment on above: Order Comment: Speci men Type: BLOOD SPECIMENOrdering Facility: [facility] Address: [address] [place], [place] [address] Performed By: #### 5 8410-2 ####[facility] LABIA [id number] [place] [address] [place] Nucleated RBC (Bld) [#/Vol] 10*3/uL Normal <0.01 [facility] Comment on above: Order Comment: Speci men Type: BLOOD SPECIMENOrdering Facility: [facility] Address: [address] [place], [place] [address] Performed By: #### 5 8410-2 ####[facility] LABCLIA [id number] [place] [address] [place] Platelet mean volume (Bld) [Entitic vol] 10.5 fL Normal 9.0-12.7 [facility] Comment on above: Order Comment: Speci men Type: BLOOD SPECIMENOrdering Facility: [facility] Address: [address] [place], [place] [address] Performed By: #### 5 8410-2 ####[facility] LABCLIA [id number] [place] [address] [place] Platelets (Bld) [#/Vol] 213 10*3/uL Normal 150-400 [facility] Comment on above: Order Comment: Speci men Type: BLOOD SPECIMENOrdering Facility: [facility] Address: [address] [place] [address] Performed By: #### 5 8410-2 ####[facility] [id number] [place] [address] [place] RBC (Bld) [#/Vol] 3.67 10*6/uL Low 4.20-6.00 [facility] Comment on above: Order Comment: Speci men Type: BLOOD SPECIMENOrdering Facility: [facility] Address: [address] [place] [address] Performed By: #### 5 8410-2 ####[facility] [id number] [place] [address] [place] WBC (Bld) [#/Vol] 33.85 10*3/uL High 3.70-11.00 [facility] Comment on above: Order Comment: Speci men Type: BLOOD SPECIMENOrdering Facility: [facility] Address: [address] [place] [address] Performed By: #### 5 8410-2 ####[facility] [id number] [place] [address] [place] Erythrocyte distribution width (RBC) [Ratio] 14.9 % Normal 11.5-15.0 [facility] Comment on above: Order Comment: Speci men Type: BLOOD SPECIMENOrdering Facility: [facility] Address: [address] [place] [address] Performed By: #### 5 8410-2 ####[facility] [id number] [place] [address] [place] Hematocrit (Bld) [Volume fraction] 22.7 % Low 39.0-51.0 [facility] Comment on above: Order Comment: Speci men Type: BLOOD SPECIMENOrdering Facility: [facility] Address: [address] [place] [address] Performed By: #### 5 8410-2 ####[facility] LABCLIA [id number] [place] [address] [place] Hemoglobin (Bld) [Mass/Vol] 7.9 g/dL Low 13.0-17.0 [facility] Comment on above: Order Comment: Speci men Type: BLOOD SPECIMENOrdering Facility: [facility] Address: [address] [place] [address] Performed By: #### 5 8410-2 ####[facility] LABCLIA [id number] [place] [address] [place] MCH (RBC) [Entitic mass] 26.2 pg Normal 26.0-34.0 [facility] Comment on above: Order Comment: Speci men Type: BLOOD SPECIMENOrdering Facility: [facility] Address: [address] [place] [address] Performed By: #### 5 8410-2 ####[facility] LABIA [id number] [place] [address] [place] MCHC (RBC) [Mass/Vol] 34.8 g/dL Normal 30.5-36.0 [facility] Comment on above: Order Comment: Speci men Type: BLOOD SPECIMENOrdering Facility: [facility] Address: [address] [place] [address] Performed By: #### 5 8410-2 ####[facility] LABIA [id number] [place] [address] [place] MCV (RBC) [Entitic vol] 75.2 fL Low 80.0-100.0 [facility] Comment on above: Order Comment: Speci men Type: BLOOD SPECIMENOrdering Facility: [facility] Address: [address] [place] [address] Performed By: #### 5 8410-2 ####[facility] LABCLIA [id number] [place] [address] [place] Nucleated RBC (Bld) [#/Vol] 10*3/uL Normal <0.01 [facility] Comment on above: Order Comment: Speci men Type: BLOOD SPECIMENOrdering Facility: [facility] Address: [address] Performed By: #### 5 8410-2 ####[facility] LABIA [id number] [place] [address] [place] Platelet mean volume (Bld) [Entitic vol] 11.0 fL Normal 9.0-12.7 [facility] Comment on above: Order Comment: Speci men Type: BLOOD SPECIMENOrdering Facility: [facility] Address: [address] Performed By: #### 5 8410-2 ####[facility] LABIA [id number] [place] [address] [place] Platelets (Bld) [#/Vol] 227 10*3/uL Normal 150-400 [facility] Comment on above: Order Comment: Speci men Type: BLOOD SPECIMENOrdering Facility: [facility] Address: [address] [place] [address] Performed By: #### 5 8410-2 ####[facility] LABIA [id number] [place] [address] [place] RBC (Bld) [#/Vol] 3.02 10*6/uL Low 4.20-6.00 [facility] Comment on above: Order Comment: Speci men Type: BLOOD SPECIMENOrdering Facility: [facility] Address: [address] Performed By: #### 5 8410-2 ####[facility] LABCLIA [id number] [place] [address] [place] WBC (Bld) [#/Vol] 36.59 10*3/uL High 3.70-11.00 [facility] Comment on above: Order Comment: Speci men Type: BLOOD SPECIMENOrdering Facility: [facility] Address: [address] [place] [address] Performed By: #### 5 8410-2 ####[facility] LABIA [id number] [place] [address] [place] CONSULT PROGon 01-26-2023 CONSULT PROG Normal [facility] CONSULT PROG Normal [facility] CULTURE BLOODon 01-26-2023 Microscopic examination of blood, culture Culture Observations: Aerobic and Anaerobic bottles positive. BCID: Streptococcus Pyogenes (Group A) Isolate 1 Streptococcus pyogenes Growth of ORGANISM 1 Streptococcus pyogenes ANTIBIOTIC M.I.C RX STATUS Benzylpenicillin <=0.06 S F Ampicillin <=0.25 S F Cefotaxime <=0.12 S F Ceftriaxone <=0.12 S F Levofloxacin 0.5 S F Inducible Clindamycin Resistance Neg NEG F Erythromycin <=0.12 S F Clindamycin <=0.25 S F Linezolid <=2 S F Vancomycin <=0.12 S F Tetracycline <=0.25 S F Normal [facility] Comment on above: Performed By: #### B CID2 #### [facility] [address] [place] [address] Dr. Good Castellano Comprehensive metabolic 2000 panelon 01-26-2023 Albumin [Mass/Vol] 2.4 g/dL Low 3.9-4.9 [facility] Comment on above: Order Comment: Speci men Type: BLOOD SPECIMENOrdering Facility: [facility] Address: [address] [place] [address] Performed By: #### 2 4323-8, HSTNT, 68338-7, 2777-1 ####[facility] LABIA [id number] [place] [address] [place] ALP [Catalytic activity/Vol] 402 U/L High 38-113 [facility] Comment on above: Order Comment: Speci men Type: BLOOD SPECIMENOrdering Facility: [facility] Address: [address] [place] [address] Performed By: #### 2 4323-8, HSTNT, , 2776- ####[facility] LABCLIA [id number] [place] [address] [place] ALT [Catalytic activity/Vol] 43 U/L Normal 10-54 [facility] Comment on above: Order Comment: Speci men Type: BLOOD SPECIMENOrdering Facility: [facility] Address: [address] [place] [address] Performed By: #### 2 4323-8, HSTNT, , 2776-11 ####[facility] LABCLIA [id number] [place] [address] [place] Anion gap [Moles/Vol] 10 mmol/L Normal 9-18 [facility] Comment on above: Order Comment: Speci men Type: BLOOD SPECIMENOrdering Facility: [facility] Address: [address] [place], [place] [address] Performed By: #### 2 4323-8, HSTNT, , 2776-11 ####[facility] LABCLIA [id number] [place] [address] [place] AST [Catalytic activity/Vol] 59 U/L High 14-40 [facility] Comment on above: Order Comment: Speci men Type: BLOOD SPECIMENOrdering Facility: [facility] Address: [address] [place], [place] [address] Performed By: #### 2 4323-8, HSTNT, , 2776- ####[facility] LABCLIA [id number] [place] [id number] [place] Bilirubin [Mass/Vol] 1.1 mg/dL Normal 0.2-1.3 [facility] Comment on above: Order Comment: Speci men Type: BLOOD SPECIMENOrdering Facility: [facility] Address: [address] [place] [address] Performed By: #### 2 4323-8, HSTNT, , 2776- ####[facility] LABCLIA [id number] [place] [address] [place] Calcium [Mass/Vol] 7.6 mg/dL Low 8.5-10.2 [facility] Comment on above: Order Comment: Speci men Type: BLOOD SPECIMENOrdering Facility: [facility] Address: [address] [place] [address] Performed By: #### 2 4323-8, HSTNT, , 2776-11 ####[facility] LABCLIA [id number] [place] [address] [place] Chloride [Moles/Vol] 100 mmol/L Normal 97-105 [facility] Comment on above: Order Comment: Speci men Type: BLOOD SPECIMENOrdering Facility: [facility] Address: [address] [place] [address] Performed By: #### 2 4323-8, HSTNT, , 2776-11 ####[facility] LABCLIA [id number] [place] [address] [place] CO2 [Moles/Vol] 23 mmol/L Normal 22-30 [facility] Comment on above: Order Comment: Speci men Type: BLOOD SPECIMENOrdering Facility: [facility] Address: [address] [place] [address] Performed By: #### 2 4323-8, HSTNT, , 2776- ####[facility] LABCLIA [id number] [address] [place] Creatinine [Mass/Vol] 0.99 mg/dL Normal 0.73-1.22 [facility] Comment on above: Order Comment: Alden padilla Type: BLOOD SPECIMENOrdering Facility: [facility] Address: [address] [place] [address] Performed By: #### 2 4323-8, HSTNT, , 2776-11 ####[facility] LABCLIA [id number] [address] [place] ESTIMATED GLOMERULAR FILTRATION RATE 88 mL/min/1.73m??? Normal >=60 [facility] Comment on above: Order Comment: Alden padilla Type: BLOOD SPECIMENOrdering Facility: [facility] Address: [address] [place] [address] Result Comment: Veronica mated Glomerular Filtration Rate (eGFR) is calculated using the 2020 CKD-EPI creatinine equation. This equation utilizes serum creatinine, sex, and age as parameters. The creatinine assay has traceable calibration to isotope dilution-mass spectrometry. Refer to KDIGO guidelines for clinical interpretation. In patients with unstable renal function, e.g. those with acute kidney injury, the eGFR may not accurately reflect actual GFR. Performed By: #### 2 4323-8, HSTNT, , 2776-11 ####[facility] LABCLIA [id number] [place] [address] [place] Glucose [Mass/Vol] 99 mg/dL Normal 74-99 [facility] Comment on above: Order Comment: Alden padilla Type: BLOOD SPECIMENOrdering Facility: [facility] Address: [address] [place] [address] Result Comment: The [place] [employer] (ADA) provides guidance for cutoff values for fasting glucose and random glucose. The ADA defines fasting as no caloric intake for at least 8 hours. Fasting plasma glucose results between 100 to 125 mg/dL indicate increased risk for diabetes (prediabetes).Fasting plasma glucose results greater than or equal to 126 mg/dL meet the criteria for diagnosis of diabetes. In the absence of unequivocal hyperglycemia, results should be confirmed by repeat testing. In a patient with classic symptoms of hyperglycemia or hyperglycemic crisis, random plasma glucose results greater than or equal to 200 mg/dL meet the criteria for diagnosis of diabetes.Reference: Standards of Medical Care in Diabetes 2016, [place] [employer]. Diabetes Care. 2016.39(Suppl 1). Performed By: #### 2 4323-8, HSTNT, , 2776- ####[facility] LABCLIA [id number] [place] [address] [place] Potassium [Moles/Vol] 4.5 mmol/L Normal 3.7-5.1 [facility] Comment on above: Order Comment: Speci men Type: BLOOD SPECIMENOrdering Facility: [facility] Address: [address] [place] [address] Performed By: #### 2 4323-8, HSTNT, , 2776-11 ####[facility] LABCLIA [id number] [place] [address] [place] Protein [Mass/Vol] 5.4 g/dL Low 6.3-8.0 [facility] Comment on above: Order Comment: Speci men Type: BLOOD SPECIMENOrdering Facility: [facility] Address: [address] [place] [address] Performed By: #### 2 4323-8, HSTNT, , 2776-11 ####[facility] LABCLIA [id number] [place] [address] [place] Sodium [Moles/Vol] 133 mmol/L Low 136-144 [facility] Comment on above: Order Comment: Speci men Type: BLOOD SPECIMENOrdering Facility: [facility] Address: [address] [place] [address] Performed By: #### 2 4323-8, HSTNT, , 2776-11 ####[facility] LABCLIA [id number] [place] [id number] [place] Urea nitrogen [Mass/Vol] 28 mg/dL High 9-24 [facility] Comment on above: Order Comment: Alden padilla Type: BLOOD SPECIMENOrdering Facility: [facility] Address: [address] [place] [address] Performed By: #### 2 4323-8, HSTNT, , 2776-11 ####[facility] LABCLIA [id number] [address] OF [facility] ECG COMPLETEon 01-26-2023 ECG COMPLETE Normal [facility] HIGH SENSITIVITY TROPONIN To n 01-26-2023 HIGH SENSITIVITY ALANNA 97 ng/L High <12 [facility] Comment on above: Order Comment: Alden padilla Type: BLOOD SPECIMENOrdering Facility: [facility] Address: [address] [place] [address] Result Comment: When assessing risk for acute coronary syndromes: In patients undergoing blood draw greater than or equal to 2 hours from symptom onset, with history of very low to moderate risk and non-ischemic ECG, an initial hs-Troponin T less than 12 ng/L AND a 1 hour delta hs-Troponin T less than 3 ng/L should be considered very low risk for 30 day MACE. Performed By: #### H STNT ####[facility] LABCLIA [id number] [address] HIGH SENSITIVITY ALANNA 123 ng/L High <12 [facility] Comment on above: Order Comment: Alden padilla Type: BLOOD SPECIMENOrdering Facility: [facility] Address: [address] [place] [address] Result Comment: When assessing risk for acute coronary syndromes: In patients undergoing blood draw greater than or equal to 2 hours from symptom onset, with history of very low to moderate risk and non-ischemic ECG, an initial hs-Troponin T less than 12 ng/L AND a 1 hour delta hs-Troponin T less than 3 ng/L should be considered very low risk for 30 day MACE. Performed By: #### 2 4323-8, HSTNT, , 2776-11 ####[facility] LABCLIA [id number] [address] [address] [place] Magnesium SerPl-mCncon 01-26 Magnesium [Mass/Vol] 2.0 mg/dL Normal 1.7-2.3 [facility] Comment on above: Order Comment: Alden padilla Type: BLOOD SPECIMENOrdering Facility: [facility] Address: [address] [place] [address] Performed By: #### 2 4323-8, HSTNT, 89568-9, 2777-1 ####[facility] LABCLIA [id number] [place] [id number] [place] NURSING PROGon 01-26-2023 NURSING PROG Normal [facility] NUTRITIONon 01-26-2023 NUTRITION Normal [facility] OPERATIVE NOon 01-26-2023 OPERATIVE NO Normal [facility] PT panel Coag (PPP)on 2022 INR Coag (PPP) [Relative time] 1.0 {INR} Normal 0.9-1.3 [facility] Comment on above: Order Comment: Alden padilla Type: BLOOD SPECIMENOrdering Facility: [facility] Address: [address] [place] [id number] Result Comment: Lisandra min K Antagonist (VKA) Therapeutic Range: INR 2 to 3 (Target INR of 2.5)Note: For patients treated with VKA drugs, such as warfarin, the [place] [employer] 2012 Guideline recommends a therapeutic INR range of 2 to 3 (target INR of 2.5). This recommendation includes high-risk patients with antiphospholipid syndrome with previous arterial or venous thromboembolism, current-generation mechanical or bioprosthetic aortic heart valve replacement.Note: Patients with mechanical aortic valve replacement and additional risk factors for thromboembolic events (atrial fibrillation, previous thromboembolism, LV dysfunction, hypercoagulable conditions) or an older generation mechanical AVR (i.e., ball in-Cage) or any mechanical MVR should have a INR therapeutic range of 2.5 to 3.5 (target INR of 3).Rico GH, et al. Chest 2012, 141:7S-47SNishimura RA, et al. [facility] 2017, 70: 252-289 Performed By: #### 3 4528-0, 72098-2 ####[facility] LABCLIA [id number] [place] [address] [place] PT Coag (PPP) [Time] 10.4 s Normal 9.7-13.0 [facility] Comment on above: Order Comment: Speci men Type: BLOOD SPECIMENOrdering Facility: [facility] Address: [address] [place] [address] Performed By: #### 3 4528-0, 93491-9 ####[facility] LABCLIA [id number] [address] [place] Phosphate SerPl-mCncon 01-26 Phosphate [Mass/Vol] 3.5 mg/dL Normal 2.7-4.8 [facility] Comment on above: Order Comment: Speci men Type: BLOOD SPECIMENOrdering Facility: [facility] Address: [address] [place] [address] Performed By: #### 2 4323-8, HSTNT, 73845-4, 2777-1 ####[facility] LABIA [id number] [address] [place] SURGICAL PATHOLOGYon 023 CASE REPORT Normal [facility] Comment on above: Order Comment: Speci men Type: DEVICE SPECIMENOrdering Facility: [facility] Address: [address] [place] [address] Result Comment: Surg ical Pathology Report Case: [id number] Provider: Jean Marie Samayoa MD Collected: 01/26/2023 05:56 PMOrdering Location: Admitting Received: 01/26/2023 06:02 PMPathologist: IRENE Sloanpecimen: HARDWARE Performed By: #### S ####[facility] LABCLIA [id number] [address] [place] CLINICAL HISTORY Normal [facility] Comment on above: Order Comment: Speci men Type: DEVICE SPECIMENOrdering Facility: [facility] Address: [address] [address] Result Comment: Pre- op diagnosis:Abscess of left thigh [L02.416] Performed By: #### S ####[facility] LABCLIA [id number] [address] FINAL DIAGNOSIS Normal [facility] Comment on above: Order Comment: Speci men Type: DEVICE SPECIMENOrdering Facility: [facility] Address: [address] [address] Result Comment: A. S ite not specified, hardware removal:-Unremarkable orthopedic hardware from a total hip arthroplasty (gross diagnosis only).CF/TLA 01/27/2023 Performed By: #### S ####[facility] LABCLIA [id number] [address] FINAL PERFORMING LAB Normal [facility] Comment on above: Order Comment: Speci men Type: DEVICE SPECIMENOrdering Facility: [facility] Address: [address] [place] [address] Result Comment: Diag nostic interpretation performed at [facility], [address] [address] CLIA# [id number] Director: Felipe Field M.D. Performed By: #### S ####[facility] LABCLIA [id number] [address] OF [facility] GROSS DESCRIPTION A. HARDWARE Normal [facility] Comment on above: Order Comment: Speci men Type: DEVICE SPECIMENOrdering Facility: [facility] Address: [address] [address] Result Comment: Rece ived fresh labeled with hardware are the grossly unremarkable components of orthopedic hardware from a total hip arthroplasty including a femoral stem measuring 14.5 cm in length by 3.3 cm in greatest width. The device is intact with no defects present. Inscribed on the devices 9321-0295 [id number] . Also identified within the specimen container is a articulated silver metallic femoral head component within a polyethylene acetabular insert with an overlying metallic acetabular cap overall measuring 4.8 x 4.8 x 3.5 cm. The articular surfaces are smooth with no evidence of scratching or decomposition present. The femoral head is freely mobile within the polyethylene insert. There is no yellow discoloration present. Inscribed on the device is 06-2600 5'38'37 [id number] BC-26 mm NK+0 . There is no attached soft tissue present. No sections are submitted. The specimen is reviewed with Dr. Ernandez.TLA January 27, 2023 11:32 AMGross examination performed at [facility], [facility] [place] [address] Performed By: #### S ####[facility] LABCLIA [id number] [place] [address] [place] THERAPY NTon 01-26-2023 THERAPY NT Normal [facility] VENOUS BLOOD GASES WITH IONI ZED MAGNESIUMon 01-26-2023 BASE DEFICIT, VENOUS -4 mmol/L Low -2-0 [facility] Comment on above: Order Comment: Speci men Type: VENOUS BLOOD SPECIMENOrdering Facility: [facility] Address: [address] [place] [address] Performed By: #### V ALLMG ####[facility] LABIA [id number] [place] [address] [place] Calcium.ionized (Bld) [Mass/Vol] 1.05 mmol/L Low 1.08-1.30 [facility] Comment on above: Order Comment: Speci men Type: VENOUS BLOOD SPECIMENOrdering Facility: [facility] Address: [address] [address] Performed By: #### V ALLMG ####[facility] LABCLIA [id number] [place] [address] [place] Calcium.ionized adjusted to pH 7.4 (BldA) [Moles/Vol] 0.97 mmol/L Low 1.08-1.30 [facility] Comment on above: Order Comment: Speci men Type: VENOUS BLOOD SPECIMENOrdering Facility: [facility] Address: [address] [place] [address] Performed By: #### V ALLMG ####[facility] LABIA [id number] [address] Carboxyhemoglobin (BldV) [Mass fraction] 1.4 % Normal 0.0-2.0 [facility] Comment on above: Order Comment: Speci men Type: VENOUS BLOOD SPECIMENOrdering Facility: [facility] Address: [address] [place] [address] Result Comment: Carb oxyhemoglobin Reference Range for Smokers: 2.0-8.0% Performed By: #### V ALLMG ####[facility] LABIA [id number] [address] [place] CO2 (BldV) [Partial pressure] 51 mm[Hg] Normal 42-55 [facility] Comment on above: Order Comment: Speci men Type: VENOUS BLOOD SPECIMENOrdering Facility: [facility] Address: [address] [place] [address] Performed By: #### V ALLMG ####[facility] LABIA [id number] [address] [place] CO2 [Moles/Vol] 24 mmol/L Low 25-29 [facility] Comment on above: Order Comment: Speci men Type: VENOUS BLOOD SPECIMENOrdering Facility: [facility] Address: [address] [place], [place] [address] Performed By: #### V ALLMG ####[facility] LABCLIA [id number] [address] [place] CO2 adjusted to patient's actual temperature (BldV) [Partial pressure] 51 mmHg Normal 42-55 [facility] Comment on above: Order Comment: Speci men Type: VENOUS BLOOD SPECIMENOrdering Facility: [facility] Address: [address] Performed By: #### V ALLMG ####[facility] LABCLIA [id number] [place] [address] [place] Glucose [Mass/Vol] 110 mg/dL High 60-105 [facility] Comment on above: Order Comment: Speci men Type: VENOUS BLOOD SPECIMENOrdering Facility: [facility] Address: [address] Performed By: #### V ALLMG ####[facility] LABCLIA [id number] [place] [address] [place] HCO3 (Bld) [Moles/Vol] 22 mmol/L Low 24-28 [facility] Comment on above: Order Comment: Speci men Type: VENOUS BLOOD SPECIMENOrdering Facility: [facility] Address: [address] Performed By: #### V ALLMG ####[facility] LABCLIA [id number] [place] [address] [place] Hematocrit (Bld) [Volume fraction] 26.6 % Low 39.0-51.0 [facility] Comment on above: Order Comment: Speci men Type: VENOUS BLOOD SPECIMENOrdering Facility: [facility] Address: [address] Performed By: #### V ALLMG ####[facility] LABCLIA [id number] [place] [address] [place] Hemoglobin (Bld) [Mass/Vol] 8.6 g/dL Low 13.0-17.0 [facility] Comment on above: Order Comment: Speci men Type: VENOUS BLOOD SPECIMENOrdering Facility: [facility] Address: [address] Performed By: #### V ALLMG ####[facility] LABCLIA [id number] [place] [address] [place] Lactate [Moles/Vol] 1.0 mmol/L Normal 0.5-2.2 [facility] Comment on above: Order Comment: Speci men Type: VENOUS BLOOD SPECIMENOrdering Facility: [facility] Address: [address] [place], [place] [address] Performed By: #### V ALLMG ####[facility] LABIA [id number] [place] [address] [place] Magnesium [Moles/Vol] 0.48 mmol/L Normal 0.45-0.60 [facility] Comment on above: Order Comment: Speci men Type: VENOUS BLOOD SPECIMENOrdering Facility: [facility] Address: [address] [place], [place] [address] Performed By: #### V ALLMG ####[facility] LABIA [id number] [address] [place] Methemoglobin (Bld) [Mass fraction] 1.5 % Normal 0.0-1.5 [facility] Comment on above: Order Comment: Speci men Type: VENOUS BLOOD SPECIMENOrdering Facility: [facility] Address: [address] [place], [place] [address] Performed By: #### V ALLMG ####[facility] LABIA [id number] [place] [address] [place] Oxygen (BldV) [Partial pressure] 58 mm[Hg] High 35-45 [facility] Comment on above: Order Comment: Speci men Type: VENOUS BLOOD SPECIMENOrdering Facility: [facility] Address: [address] [place], [place] [address] Performed By: #### V ALLMG ####[facility] LABIA [id number] [place] [address] [place] Oxygen adjusted to patient's actual temperature (BldV) [Partial pressure] 58 mmHg High 35-45 [facility] Comment on above: Order Comment: Speci men Type: VENOUS BLOOD SPECIMENOrdering Facility: [facility] Address: [address] [place], [place] [address] Performed By: #### V ALLMG ####[facility] LABCLIA [id number] [place] [address] [place] Oxygen saturation in Venous blood 84 % Normal 60-85 [facility] Comment on above: Order Comment: Speci men Type: VENOUS BLOOD SPECIMENOrdering Facility: [facility] Address: [address] [place], [place] [address] Performed By: #### V ALLMG ####[facility] LABCLIA [id number] [place] [address] [place] Oxyhemoglobin (BldV) [Mass fraction] 81 % Normal 60-85 [facility] Comment on above: Order Comment: Speci men Type: VENOUS BLOOD SPECIMENOrdering Facility: [facility] Address: [address] [place], [place] [address] Performed By: #### V ALLMG ####[facility] LABCLIA [id number] [place] [address] [place] pH (BldV) 7.26 [pH] Low 7.32-7.42 [facility] Comment on above: Order Comment: Speci men Type: VENOUS BLOOD SPECIMENOrdering Facility: [facility] Address: [address] Performed By: #### V ALLMG ####[facility] LABCLIA [id number] [place] [address] [place] pH adjusted to patient's actual temperature (BldV) 7.26 Low 7.32-7.42 [facility] Comment on above: Order Comment: Speci men Type: VENOUS BLOOD SPECIMENOrdering Facility: [facility] Address: [address] [place], [place] [address] Performed By: #### V ALLMG ####[facility] LABCLIA [id number] [place] [address] [place] Potassium [Moles/Vol] 4.3 mmol/L Normal 3.5-5.0 [facility] Comment on above: Order Comment: Speci men Type: VENOUS BLOOD SPECIMENOrdering Facility: [facility] Address: [address] [place], [place] [address] Performed By: #### V ALLMG ####[facility] LABCLIA [id number] [place] [address] [place] Sodium [Moles/Vol] 135 mmol/L Low 136-144 [facility] Comment on above: Order Comment: Speci men Type: VENOUS BLOOD SPECIMENOrdering Facility: [facility] Address: [address] Performed By: #### V ALLMG ####[facility] LABCLIA [id number] [place] [address] [place] XR CHEST 1V FRONTAL PORTon 0 01-26-2023 XR CHEST 1V FRONTAL PORT Normal [facility] XR PELVIS 1V APon 01-26-2023 XR PELVIS 1V AP Normal [facility] aPTT PPPon 01-26-2023 aPTT Coag (PPP) [Time] 23.0 s Normal 23.0-32.4 [facility] Comment on above: Order Comment: Speci men Type: BLOOD SPECIMENOrdering Facility: [facility] Address: [address] Performed By: #### 3 4528-0, 67920-8 ####[facility] LABCLIA [id number] [place] [address] [place] CBC panel Auto (Bld)on 01-25 Erythrocyte distribution width (RBC) [Ratio] 14.8 % Normal 11.5-15.0 [facility] Comment on above: Order Comment: Speci men Type: BLOOD SPECIMENOrdering Facility: [facility] Address: [address] Performed By: #### 5 8410-2 ####[facility] LABIA [id number] [address] [place] Hematocrit (Bld) [Volume fraction] 20.0 % Low 39.0-51.0 [facility] Comment on above: Order Comment: Speci men Type: BLOOD SPECIMENOrdering Facility: [facility] Address: [address] Performed By: #### 5 8410-2 ####[facility] LABIA [id number] [address] [place] Hemoglobin (Bld) [Mass/Vol] 7.0 g/dL Low 13.0-17.0 [facility] Comment on above: Order Comment: Speci men Type: BLOOD SPECIMENOrdering Facility: [facility] Address: [address] [place], [place] [address] Performed By: #### 5 8410-2 ####[facility] LABIA [id number] [address] [place] MCH (RBC) [Entitic mass] 26.2 pg Normal 26.0-34.0 [facility] Comment on above: Order Comment: Speci men Type: BLOOD SPECIMENOrdering Facility: [facility] Address: [address] [place], [place] [address] Performed By: #### 5 8410-2 ####[facility] LABIA [id number] [address] [place] MCHC (RBC) [Mass/Vol] 35.0 g/dL Normal 30.5-36.0 [facility] Comment on above: Order Comment: Speci men Type: BLOOD SPECIMENOrdering Facility: [facility] Address: [address] [place], [place] [address] Performed By: #### 5 8410-2 ####[facility] LABIA [id number] [place] [address] [place] MCV (RBC) [Entitic vol] 74.9 fL Low 80.0-100.0 [facility] Comment on above: Order Comment: Speci men Type: BLOOD SPECIMENOrdering Facility: [facility] Address: [address] [place], [place] [address] Performed By: #### 5 8410-2 ####[facility] LABIA [id number] [place] [address] [place] Nucleated RBC (Bld) [#/Vol] 10*3/uL Normal <0.01 [facility] Comment on above: Order Comment: Speci men Type: BLOOD SPECIMENOrdering Facility: [facility] Address: [address] [place], [place] [address] Performed By: #### 5 8410-2 ####[facility] [id number] [place] [address] [place] Platelet mean volume (Bld) [Entitic vol] 12.1 fL Normal 9.0-12.7 [facility] Comment on above: Order Comment: Speci men Type: BLOOD SPECIMENOrdering Facility: [facility] Address: [address] [place], [place] [address] Performed By: #### 5 8410-2 ####[facility] [id number] [place] [address] [place] Platelets (Bld) [#/Vol] 176 10*3/uL Normal 150-400 [facility] Comment on above: Order Comment: Speci men Type: BLOOD SPECIMENOrdering Facility: [facility] Address: [address] [place], [place] [address] Performed By: #### 5 8410-2 ####[facility] LABIA [id number] [place] [address] [place] RBC (Bld) [#/Vol] 2.67 10*6/uL Low 4.20-6.00 [facility] Comment on above: Order Comment: Speci men Type: BLOOD SPECIMENOrdering Facility: [facility] Address: [address] [place] [address] Performed By: #### 5 8410-2 ####[facility] LABCLIA [id number] [place] [address] [place] WBC (Bld) [#/Vol] 37.96 10*3/uL High 3.70-11.00 [facility] Comment on above: Order Comment: Speci men Type: BLOOD SPECIMENOrdering Facility: [facility] Address: [address] [place] [address] Performed By: #### 5 8410-2 ####[facility] LABCLIA [id number] [place] [address] [place] CONSULTon 01-25-2023 CONSULT Normal [facility] CONSULT PROGon 01-25-2023 CONSULT PROG Normal [facility] CONSULT PROG Normal [facility] Comprehensive metabolic 2000 panelon 01-25-2023 Albumin [Mass/Vol] 2.0 g/dL Low 3.9-4.9 [facility] Comment on above: Order Comment: Speci men Type: BLOOD SPECIMENOrdering Facility: [facility] Address: [address] [place], [place] [address] Performed By: #### 2 4323-8, 88354-2, 2776-1, HSTNT ####[facility] LABCLIA [id number] [place] [address] [place] ALP [Catalytic activity/Vol] 107 U/L Normal 38-113 [facility] Comment on above: Order Comment: Speci men Type: BLOOD SPECIMENOrdering Facility: [facility] Address: [address] [place], [place] [address] Performed By: #### 2 4323-8, 89241-3, 2777-1, HSTNT ####[facility] LABCLIA [id number] [place] [address] [place] ALT [Catalytic activity/Vol] 27 U/L Normal 10-54 [facility] Comment on above: Order Comment: Speci men Type: BLOOD SPECIMENOrdering Facility: [facility] Address: [address] [place] [address] Performed By: #### 2 4323-8, , 2776-11, HSTNT ####[facility] LABIA [id number] [place] [address] [place] Anion gap [Moles/Vol] 13 mmol/L Normal 9-18 [facility] Comment on above: Order Comment: Speci men Type: BLOOD SPECIMENOrdering Facility: [facility] Address: [address] [place] [address] Performed By: #### 2 4323-8, , 2776-11, HSTNT ####[facility] [id number] [place] [address] [place] AST [Catalytic activity/Vol] 18 U/L Normal 14-40 [facility] Comment on above: Order Comment: Speci men Type: BLOOD SPECIMENOrdering Facility: [facility] Address: [address] [place], [place] [address] Performed By: #### 2 4323-8, , 2776-11, HSTNT ####[facility] LABIA [id number] [address] [id number] [place] Bilirubin [Mass/Vol] 1.3 mg/dL Normal 0.2-1.3 [facility] Comment on above: Order Comment: Speci men Type: BLOOD SPECIMENOrdering Facility: [facility] Address: [address] [place], [place] [address] Performed By: #### 2 4323-8, , 2776-11, HSTNT ####[facility] LABCLIA [id number] [address] [address] [place] Calcium [Mass/Vol] 7.5 mg/dL Low 8.5-10.2 [facility] Comment on above: Order Comment: Speci men Type: BLOOD SPECIMENOrdering Facility: [facility] Address: [address] [place], [place] [address] Performed By: #### 2 4323-8, , 2776-11, HSTNT ####[facility] LABCLIA [id number] [place] [address] [place] Chloride [Moles/Vol] 99 mmol/L Normal 97-105 [facility] Comment on above: Order Comment: Speci men Type: BLOOD SPECIMENOrdering Facility: [facility] Address: [address] [place], [place] [address] Performed By: #### 2 4323-8, , 2776-11, HSTNT ####[facility] LABIA [id number] [place] [address] [place] CO2 [Moles/Vol] 20 mmol/L Low 22-30 [facility] Comment on above: Order Comment: Speci men Type: BLOOD SPECIMENOrdering Facility: [facility] Address: [address] [place], [place] [address] Performed By: #### 2 4323-8, , 2776-11, HSTNT ####[facility] LABCLIA [id number] [address] [address] [place] Creatinine [Mass/Vol] 1.47 mg/dL High 0.73-1.22 [facility] Comment on above: Order Comment: Speci men Type: BLOOD SPECIMENOrdering Facility: [facility] Address: [address] [place], [place] [address] Performed By: #### 2 4323-8, , 2776-11, HSTNT ####[facility] LABCLIA [id number] [place] [address] [place] ESTIMATED GLOMERULAR FILTRATION RATE 55 mL/min/1.73m??? Low >=60 [facility] Comment on above: Order Comment: Alden padilla Type: BLOOD SPECIMENOrdering Facility: [facility] Address: [address] [place] [address] Result Comment: Veronica mated Glomerular Filtration Rate (eGFR) is calculated using the 2020 CKD-EPI creatinine equation. This equation utilizes serum creatinine, sex, and age as parameters. The creatinine assay has traceable calibration to isotope dilution-mass spectrometry. Refer to KDIGO guidelines for clinical interpretation. In patients with unstable renal function, e.g. those with acute kidney injury, the eGFR may not accurately reflect actual GFR. Performed By: #### 2 4323-8, , 2776-11, HSTNT ####[facility] LABCLIA [id number] [place] [address] [place] Glucose [Mass/Vol] 99 mg/dL Normal 74-99 [facility] Comment on above: Order Comment: Alden padilla Type: BLOOD SPECIMENOrdering Facility: [facility] Address: [address] [place] [address] Result Comment: The [place] [employer] (ADA) provides guidance for cutoff values for fasting glucose and random glucose. The ADA defines fasting as no caloric intake for at least 8 hours. Fasting plasma glucose results between 100 to 125 mg/dL indicate increased risk for diabetes (prediabetes).Fasting plasma glucose results greater than or equal to 126 mg/dL meet the criteria for diagnosis of diabetes. In the absence of unequivocal hyperglycemia, results should be confirmed by repeat testing. In a patient with classic symptoms of hyperglycemia or hyperglycemic crisis, random plasma glucose results greater than or equal to 200 mg/dL meet the criteria for diagnosis of diabetes.Reference: Standards of Medical Care in Diabetes 2016, [place] [employer]. Diabetes Care. 2016.39(Suppl 1). Performed By: #### 2 4323-8, 95184-4, 2776-, HSTNT ####[facility] LABCLIA [id number] [address] [address] [place] Potassium [Moles/Vol] 4.3 mmol/L Normal 3.7-5.1 [facility] Comment on above: Order Comment: Speci men Type: BLOOD SPECIMENOrdering Facility: [facility] Address: [address] [place] [address] Performed By: #### 2 4323-8, , 2776-11, HSTNT ####[facility] LABCLIA [id number] [place] [address] [place] Protein [Mass/Vol] 4.3 g/dL Low 6.3-8.0 [facility] Comment on above: Order Comment: Speci men Type: BLOOD SPECIMENOrdering Facility: [facility] Address: [address] [place] [address] Performed By: #### 2 4323-8, , 2776-11, HSTNT ####[facility] LABCLIA [id number] [place] [address] [place] Sodium [Moles/Vol] 132 mmol/L Low 136-144 [facility] Comment on above: Order Comment: Speci men Type: BLOOD SPECIMENOrdering Facility: [facility] Address: [address] [place], [place] [address] Performed By: #### 2 4323-8, , 2776-11, HSTNT ####[facility] LABCLIA [id number] [place] [id number] [place] Urea nitrogen [Mass/Vol] 53 mg/dL High 9-24 [facility] Comment on above: Order Comment: Speci men Type: BLOOD SPECIMENOrdering Facility: [facility] Address: [address] [place], [place] [address] Performed By: #### 2 4323-8, , 2776-11, HSTNT ####[facility] LABIA [id number] [place] [address] [place] Gas and Carbon monoxide pane l (BldV)on 01-25-2023 BASE DEFICIT, VENOUS -3 mmol/L Low -2-0 [facility] Comment on above: Order Comment: Speci men Type: VENOUS BLOOD SPECIMENOrdering Facility: [facility] Address: [address] [place] [address] Performed By: #### 2 4344-4 ####[facility] LABIA [id number] [address] [place] Body temperature 98.06 [degF] Normal [facility] Comment on above: Order Comment: Speci men Type: VENOUS BLOOD SPECIMENOrdering Facility: [facility] Address: [address] [place] [address] Performed By: #### 2 4344-4 ####[facility] [id number] [address] [place] Calcium.ionized (Bld) [Mass/Vol] 1.10 mmol/L Normal 1.08-1.30 [facility] Comment on above: Order Comment: Speci men Type: VENOUS BLOOD SPECIMENOrdering Facility: [facility] Address: [address] [place] [address] Performed By: #### 2 4344-4 ####[facility] LABIA [id number] [address] [place] Calcium.ionized adjusted to pH 7.4 (BldA) [Moles/Vol] 1.10 mmol/L Normal 1.08-1.30 [facility] Comment on above: Order Comment: Speci men Type: VENOUS BLOOD SPECIMENOrdering Facility: [facility] Address: [address] [place] [address] Performed By: #### 2 4344-4 ####[facility] LABIA [id number] [place] Carboxyhemoglobin (BldV) [Mass fraction] 1.4 % Normal 0.0-2.0 [facility] Comment on above: Order Comment: Speci men Type: VENOUS BLOOD SPECIMENOrdering Facility: [facility] Address: [address] [place] [address] Result Comment: Carb oxyhemoglobin Reference Range for Smokers: 2.0-8.0% Performed By: #### 2 4344-4 ####[facility] LABCLIA [id number] [place] [address] [place] CO2 (BldV) [Partial pressure] 36 mm[Hg] Low 42-55 [facility] Comment on above: Order Comment: Speci men Type: VENOUS BLOOD SPECIMENOrdering Facility: [facility] Address: [address] [place] [address] Performed By: #### 2 4344-4 ####[facility] LABCLIA [id number] [place] [address] [place] CO2 [Moles/Vol] 23 mmol/L Low 25-29 [facility] Comment on above: Order Comment: Speci men Type: VENOUS BLOOD SPECIMENOrdering Facility: [facility] Address: [address] [place], [place] [address] Performed By: #### 2 4344-4 ####[facility] LABCLIA [id number] [place] [address] [place] CO2 adjusted to patient's actual temperature (BldV) [Partial pressure] 35 mmHg Low 42-55 [facility] Comment on above: Order Comment: Speci men Type: VENOUS BLOOD SPECIMENOrdering Facility: [facility] Address: [address] [place] [address] Performed By: #### 2 4344-4 ####[facility] LABCLIA [id number] [place] [address] [place] Glucose [Mass/Vol] 104 mg/dL Normal 60-105 [facility] Comment on above: Order Comment: Speci men Type: VENOUS BLOOD SPECIMENOrdering Facility: [facility] Address: [address] Performed By: #### 2 4344-4 ####[facility] LABCLIA [id number] [place] [address] [place] HCO3 (Bld) [Moles/Vol] 21 mmol/L Low 24-28 [facility] Comment on above: Order Comment: Speci men Type: VENOUS BLOOD SPECIMENOrdering Facility: [facility] Address: [address] Performed By: #### 2 4344-4 ####[facility] LABCLIA [id number] [place] [address] [place] Hematocrit (Bld) [Volume fraction] 24.5 % Low 39.0-51.0 [facility] Comment on above: Order Comment: Speci men Type: VENOUS BLOOD SPECIMENOrdering Facility: [facility] Address: [address] Performed By: #### 2 4344-4 ####[facility] LABIA [id number] [place] [address] [place] Hemoglobin (Bld) [Mass/Vol] 7.9 g/dL Low 13.0-17.0 [facility] Comment on above: Order Comment: Speci men Type: VENOUS BLOOD SPECIMENOrdering Facility: [facility] Address: [address] [place] [address] Performed By: #### 2 4344-4 ####[facility] LABIA [id number] [place] [address] [place] Lactate [Moles/Vol] 1.2 mmol/L Normal 0.5-2.2 [facility] Comment on above: Order Comment: Speci men Type: VENOUS BLOOD SPECIMENOrdering Facility: [facility] Address: [address] [place] [id number] Performed By: #### 2 4344-4 ####[facility] LABCLIA [id number] [place] [address] [place] Methemoglobin (Bld) [Mass fraction] 0.9 % Normal 0.0-1.5 [facility] Comment on above: Order Comment: Speci men Type: VENOUS BLOOD SPECIMENOrdering Facility: [facility] Address: [address] Performed By: #### 2 4344-4 ####[facility] LABCLIA [id number] [address] [place] O2 THERAPY NC = Nasal Cannula Normal [facility] Comment on above: Order Comment: Speci men Type: VENOUS BLOOD SPECIMENOrdering Facility: [facility] Address: [address] Performed By: #### 2 4344-4 ####[facility] LABCLIA [id number] [address] [place] Oxygen (BldV) [Partial pressure] 44 mm[Hg] Normal 35-45 [facility] Comment on above: Order Comment: Speci men Type: VENOUS BLOOD SPECIMENOrdering Facility: [facility] Address: [address] Performed By: #### 2 4344-4 ####[facility] LABCLIA [id number] [place] [address] [place] Oxygen adjusted to patient's actual temperature (BldV) [Partial pressure] 43 mmHg Normal 35-45 [facility] Comment on above: Order Comment: Speci men Type: VENOUS BLOOD SPECIMENOrdering Facility: [facility] Address: [address] [place] [address] Performed By: #### 2 4344-4 ####[facility] LABCLIA [id number] [place] [address] [place] Oxygen saturation in Venous blood 73 % Normal 60-85 [facility] Comment on above: Order Comment: Speci men Type: VENOUS BLOOD SPECIMENOrdering Facility: [facility] Address: [address] [place] [address] Performed By: #### 2 4344-4 ####[facility] LABCLIA [id number] [place] [address] [place] Oxyhemoglobin (BldV) [Mass fraction] 71 % Normal 60-85 [facility] Comment on above: Order Comment: Speci men Type: VENOUS BLOOD SPECIMENOrdering Facility: [facility] Address: [address] [place], [place] [address] Performed By: #### 2 4344-4 ####[facility] LABCLIA [id number] [place] [address] [place] pH (BldV) 7.40 [pH] Normal 7.32-7.42 [facility] Comment on above: Order Comment: Speci men Type: VENOUS BLOOD SPECIMENOrdering Facility: [facility] Address: [address] [place], [place] [address] Performed By: #### 2 4344-4 ####[facility] LABCLIA [id number] [place] [address] [place] pH adjusted to patient's actual temperature (BldV) 7.40 Normal 7.32-7.42 [facility] Comment on above: Order Comment: Speci men Type: VENOUS BLOOD SPECIMENOrdering Facility: [facility] Address: [address] [place], [place] [address] Performed By: #### 2 4344-4 ####[facility] LABCLIA [id number] [place] [address] [place] Potassium [Moles/Vol] 4.0 mmol/L Normal 3.5-5.0 [facility] Comment on above: Order Comment: Speci men Type: VENOUS BLOOD SPECIMENOrdering Facility: [facility] Address: [address] Performed By: #### 2 4344-4 ####[facility] LABCLIA [id number] [place] [address] [place] Sodium [Moles/Vol] 130 mmol/L Low 136-144 [facility] Comment on above: Order Comment: Speci men Type: VENOUS BLOOD SPECIMENOrdering Facility: [facility] Address: [address] [place] [address] Performed By: #### 2 4344-4 ####[facility] LABCLIA [id number] [place] [address] [place] BASE DEFICIT, VENOUS -3 mmol/L Low -2-0 [facility] Comment on above: Order Comment: Speci men Type: VENOUS BLOOD SPECIMENOrdering Facility: [facility] Address: [address] [place] [address] Performed By: #### 2 4344-4 ####[facility] LABIA [id number] [place] [address] [place] Body temperature 98.6 [degF] Normal [facility] Comment on above: Order Comment: Speci men Type: VENOUS BLOOD SPECIMENOrdering Facility: [facility] Address: [address] Performed By: #### 2 4344-4 ####[facility] LABIA [id number] [place] [address] [place] Calcium.ionized (Bld) [Mass/Vol] 1.13 mmol/L Normal 1.08-1.30 [facility] Comment on above: Order Comment: Speci men Type: VENOUS BLOOD SPECIMENOrdering Facility: [facility] Address: [address] [place] [address] Performed By: #### 2 4344-4 ####[facility] LABCLIA [id number] [place] [address] [place] Calcium.ionized adjusted to pH 7.4 (BldA) [Moles/Vol] 1.12 mmol/L Normal 1.08-1.30 [facility] Comment on above: Order Comment: Speci men Type: VENOUS BLOOD SPECIMENOrdering Facility: [facility] Address: [address] [place] [address] Performed By: #### 2 4344-4 ####[facility] LABCLIA [id number] [place] [address] [place] Carboxyhemoglobin (BldV) [Mass fraction] 1.0 % Normal 0.0-2.0 [facility] Comment on above: Order Comment: Speci men Type: VENOUS BLOOD SPECIMENOrdering Facility: [facility] Address: [address] [place] [address] Result Comment: Carb oxyhemoglobin Reference Range for Smokers: 2.0-8.0% Performed By: #### 2 4344-4 ####[facility] LABCLIA [id number] [place] [address] [place] CO2 (BldV) [Partial pressure] 36 mm[Hg] Low 42-55 [facility] Comment on above: Order Comment: Speci men Type: VENOUS BLOOD SPECIMENOrdering Facility: [facility] Address: [address] [place] [address] Performed By: #### 2 4344-4 ####[facility] LABCLIA [id number] [place] [address] [place] CO2 [Moles/Vol] 22 mmol/L Low 25-29 [facility] Comment on above: Order Comment: Speci men Type: VENOUS BLOOD SPECIMENOrdering Facility: [facility] Address: [address] [place] [address] Performed By: #### 2 4344-4 ####[facility] LABIA [id number] [place] [address] [place] Glucose [Mass/Vol] 106 mg/dL High 60-105 [facility] Comment on above: Order Comment: Speci men Type: VENOUS BLOOD SPECIMENOrdering Facility: [facility] Address: [address] [place] [address] Performed By: #### 2 4344-4 ####[facility] LABCLIA [id number] [place] [address] [place] HCO3 (Bld) [Moles/Vol] 21 mmol/L Low 24-28 [facility] Comment on above: Order Comment: Speci men Type: VENOUS BLOOD SPECIMENOrdering Facility: [facility] Address: [address] [place], [place] [address] Performed By: #### 2 4344-4 ####[facility] LABCLIA [id number] [place] [address] [place] Hematocrit (Bld) [Volume fraction] 22.9 % Low 39.0-51.0 [facility] Comment on above: Order Comment: Speci men Type: VENOUS BLOOD SPECIMENOrdering Facility: [facility] Address: [address] [place], [place] [address] Performed By: #### 2 4344-4 ####[facility] LABCLIA [id number] [place] [address] [place] Hemoglobin (Bld) [Mass/Vol] 7.3 g/dL Low 13.0-17.0 [facility] Comment on above: Order Comment: Speci men Type: VENOUS BLOOD SPECIMENOrdering Facility: [facility] Address: [address] Performed By: #### 2 4344-4 ####[facility] LABCLIA [id number] [place] [address] [place] Lactate [Moles/Vol] 2.1 mmol/L Normal 0.5-2.2 [facility] Comment on above: Order Comment: Speci men Type: VENOUS BLOOD SPECIMENOrdering Facility: [facility] Address: [address] [place] [address] Performed By: #### 2 4344-4 ####[facility] LABCLIA [id number] [place] [address] [place] Methemoglobin (Bld) [Mass fraction] 1.6 % High 0.0-1.5 [facility] Comment on above: Order Comment: Speci men Type: VENOUS BLOOD SPECIMENOrdering Facility: [facility] Address: [address] Performed By: #### 2 4344-4 ####[facility] LABIA [id number] [address] [place] O2 THERAPY NC = Nasal Cannula Normal [facility] Comment on above: Order Comment: Speci men Type: VENOUS BLOOD SPECIMENOrdering Facility: [facility] Address: [address] Performed By: #### 2 4344-4 ####[facility] LABCLIA [id number] [address] [place] Oxygen (BldV) [Partial pressure] 38 mm[Hg] Normal 35-45 [facility] Comment on above: Order Comment: Speci men Type: VENOUS BLOOD SPECIMENOrdering Facility: [facility] Address: [address] [place] [address] Performed By: #### 2 4344-4 ####[facility] LABCLIA [id number] [address] [place] Oxygen saturation in Venous blood 62 % Normal 60-85 [facility] Comment on above: Order Comment: Speci men Type: VENOUS BLOOD SPECIMENOrdering Facility: [facility] Address: [address] Performed By: #### 2 4344-4 ####[facility] LABCLIA [id number] [place] [address] [place] Oxyhemoglobin (BldV) [Mass fraction] 61 % Normal 60-85 [facility] Comment on above: Order Comment: Speci men Type: VENOUS BLOOD SPECIMENOrdering Facility: [facility] Address: [address] [place] [address] Performed By: #### 2 4344-4 ####[facility] LABCLIA [id number] [place] [address] [place] pH (BldV) 7.39 [pH] Normal 7.32-7.42 [facility] Comment on above: Order Comment: Speci men Type: VENOUS BLOOD SPECIMENOrdering Facility: [facility] Address: [address] [place] [address] Performed By: #### 2 4344-4 ####[facility] LABCLIA [id number] [place] [address] [place] Potassium [Moles/Vol] 4.1 mmol/L Normal 3.5-5.0 [facility] Comment on above: Order Comment: Speci men Type: VENOUS BLOOD SPECIMENOrdering Facility: [facility] Address: [address] [place], [place] [address] Performed By: #### 2 4344-4 ####[facility] LABCLIA [id number] [place] [address] [place] Sodium [Moles/Vol] 130 mmol/L Low 136-144 [facility] Comment on above: Order Comment: Speci men Type: VENOUS BLOOD SPECIMENOrdering Facility: [facility] Address: [address] [place], [place] [address] Performed By: #### 2 4344-4 ####[facility] LABCLIA [id number] [place] [address] [place] HIGH SENSITIVITY TROPONIN To n 01-25-2023 HIGH SENSITIVITY ALANNA 19 ng/L High <12 [facility] Comment on above: Order Comment: Speci men Type: BLOOD SPECIMENOrdering Facility: [facility] Address: [address] [place] [address] Result Comment: When assessing risk for acute coronary syndromes: In patients undergoing blood draw greater than or equal to 2 hours from symptom onset, with history of very low to moderate risk and non-ischemic ECG, an initial hs-Troponin T less than 12 ng/L AND a 1 hour delta hs-Troponin T less than 3 ng/L should be considered very low risk for 30 day MACE. Performed By: #### 2 4323-8, 71220-0, 2777-1, HSTNT ####[facility] LABCLIA [id number] [address] [address] [place] Magnesium SerPl-mCncon 01-25 Magnesium [Mass/Vol] 2.3 mg/dL Normal 1.7-2.3 [facility] Comment on above: Order Comment: Speci men Type: BLOOD SPECIMENOrdering Facility: [facility] Address: [address] [place] [address] Performed By: #### 2 4323-8, 27374-0, 2777-1, HSTNT ####[facility] LABCLIA [id number] [place] [id number] [place] PT panel Coag (PPP)on 2022 INR Coag (PPP) [Relative time] 1.1 {INR} Normal 0.9-1.3 [facility] Comment on above: Order Comment: Speci valerie Type: BLOOD SPECIMENOrdering Facility: [facility] Address: [address] [place] [address] Result Comment: Lisandra min K Antagonist (VKA) Therapeutic Range: INR 2 to 3 (Target INR of 2.5)Note: For patients treated with VKA drugs, such as warfarin, the [place] [employer] 2012 Guideline recommends a therapeutic INR range of 2 to 3 (target INR of 2.5). This recommendation includes high-risk patients with antiphospholipid syndrome with previous arterial or venous thromboembolism, current-generation mechanical or bioprosthetic aortic heart valve replacement.Note: Patients with mechanical aortic valve replacement and additional risk factors for thromboembolic events (atrial fibrillation, previous thromboembolism, LV dysfunction, hypercoagulable conditions) or an older generation mechanical AVR (i.e., ball in-Cage) or any mechanical MVR should have a INR therapeutic range of 2.5 to 3.5 (target INR of 3).Rico BENÍTEZ, et al. Chest 2012, 141:7S-47SZen RA, et al. [facility] 2017, 70: 252-289 Performed By: #### 3 4528-0, 50117-3 ####[facility] LABIA [id number] [place] [address] [place] PT Coag (PPP) [Time] 11.4 s Normal 9.7-13.0 [facility] Comment on above: Order Comment: Speci men Type: BLOOD SPECIMENOrdering Facility: [facility] Address: [address] [place] [address] Performed By: #### 3 4528-0, 57260-1 ####[facility] [id number] [place] [address] [place] Phosphate SerPl-mCncon 01-25 Phosphate [Mass/Vol] 4.5 mg/dL Normal 2.7-4.8 [facility] Comment on above: Order Comment: Alden padilla Type: BLOOD SPECIMENOrdering Facility: [facility] Address: [address] [place] [address] Result Comment: Resu lt rechecked. Performed By: #### 2 4323-8, 69051-2, 2777-1, HSTNT ####[facility] [id number] [place] [address] [place] Procalcitonin SerPl-mCncon 0 01-25-2023 Procalcitonin [Mass/Vol] 10.69 ng/mL High <0.09 [facility] Comment on above: Order Comment: Cecilyi valerie Type: BLOOD SPECIMENOrdering Facility: [facility] Address: [address] [place] [address] Result Comment: For a guided interpretation of test results, please visit the Change in Procalcitonin Calculator, [email or web address]. Performed By: #### 3 3959-8 ####[facility] LABCLIA [id number] [address] OF [facility] THERAPY NTon 01-25-2023 THERAPY NT Normal [facility] THERAPY NT Normal [facility] aPTT PPPon 01-25-2023 aPTT Coag (PPP) [Time] 29.8 s Normal 23.0-32.4 [facility] Comment on above: Order Comment: Speci men Type: BLOOD SPECIMENOrdering Facility: [facility] Address: [address] [place] [address] Performed By: #### 3 4528-0, 54846-0 ####[facility] LABCLIA [id number] [address] [place] ANES POSTPROC EVALon 023 ANES POSTPROC EVAL Normal [facility] ANES PRE-OPon 01-24-2023 ANES PRE-OP Normal [facility] Bacteria Bld Culton 01-25-20 23 Bacteria identified Cx Nom (Bld) CULTURE, BLOOD: No growth 5 days Normal [facility] Comment on above: Performed By: #### 6 00-7 ####[facility] LABCLIA [id number] [address] [place] Bacteria identified Cx Nom (Bld) CULTURE, BLOOD: No growth 5 days Normal [facility] Comment on above: Performed By: #### 6 00-7 ####[facility] LABCLIA [id number] [place] [address] [place] Bacteria Fld Culton 01-25-20 23 Bacteria identified Cx Nom (Body fld) Abnormal [facility] Comment on above: Performed By: #### 6 11-4, 635-3 ####[facility] LABCLIA [id number] [place] [address] [address] [place] Bacteria identified Cx Nom (Body fld) Abnormal [facility] Comment on above: Performed By: #### 6 11-4, 635-3 ####[facility] LABCLIA [id number] [facility] [address] [address] [place] Bacteria Spec Anaerobe Culto n 01-24-2023 Bacteria identified Anaer cx Nom (Unsp spec) Negative Normal [facility] Comment on above: Performed By: #### 6 35-3, 21423-8 ####[facility] LABCLIA [id number] [address] [address] [place] Bacteria identified Anaer cx Nom (Unsp spec) Negative Normal [facility] Comment on above: Performed By: #### 6 114, 635-3 ####[facility] LABCLIA [id number] [facility] [address] [address] [place] Bacteria identified Anaer cx Nom (Unsp spec) Negative Normal [facility] Comment on above: Performed By: #### 6 11-4, 635-3 ####[facility] LABCLIA [id number] [facility] [address] [address] [place] Bacteria identified Anaer cx Nom (Unsp spec) Negative Normal [facility] Comment on above: Performed By: #### 4 3408-4, 635-3 ####[facility] LABCLIA [id number] [place] [address] [address] [place] Bacteria identified Anaer cx Nom (Unsp spec) Negative Normal [facility] Comment on above: Performed By: #### 6 35-3, 43658-8 ####[facility] LABCLIA [id number] [facility] [address] [address] [place] Bacteria Tiss Culton 023 Bacteria identified Cx Nom (Tiss) Abnormal [facility] Comment on above: Performed By: #### 6 35-3, 15561-8 ####[facility] LABCLIA [id number] [address] OF [facility] Bacteria identified Cx Nom (Tiss) ORGANISM ID: 1 Many Streptococcus pyogenes (group a streptococcus) Refer to specimen collected on 01/24/2023 at 0807 ([id number]) GRAM STAIN: Many Gram positive cocci Moderate Polymorphonuclear leukocytes Moderate Mononuclear cells Abnormal [facility] Comment on above: Performed By: #### 4 3408-4, 635-3 ####[facility] LABIA [id number] [address] Bacteria identified Cx Nom (Tiss) ORGANISM ID: 1 Many Streptococcus pyogenes (group a streptococcus) Refer to specimen collected on 01/24/2023 at 0807 ([id number]) GRAM STAIN: Many Gram positive cocci Few Polymorphonuclear leukocytes Few Mononuclear cells Abnormal [facility] Comment on above: Performed By: #### 6 35-3, 91242-3 ####[facility] LABIA [id number] [place] [address] [place] CARDIAC POCUSon 01-24-2023 CARDIAC POCUS Normal [facility] CBC panel Auto (Bld)on 01-24 Erythrocyte distribution width (RBC) [Ratio] 14.9 % Normal 11.5-15.0 [facility] Comment on above: Order Comment: Speci men Type: BLOOD SPECIMENOrdering Facility: [facility] Address: [address] [place] [address] Performed By: #### 5 8410-2 ####[facility] LABIA [id number] [address] [place] Hematocrit (Bld) [Volume fraction] 31.1 % Low 39.0-51.0 [facility] Comment on above: Order Comment: Speci men Type: BLOOD SPECIMENOrdering Facility: [facility] Address: [address] [place] [address] Performed By: #### 5 8410-2 ####[facility] [id number] [place] [address] [place] Hemoglobin (Bld) [Mass/Vol] 10.5 g/dL Low 13.0-17.0 [facility] Comment on above: Order Comment: Speci men Type: BLOOD SPECIMENOrdering Facility: [facility] Address: [address] [place] [address] Performed By: #### 5 8410-2 ####[facility] [id number] [place] [address] [place] MCH (RBC) [Entitic mass] 25.5 pg Low 26.0-34.0 [facility] Comment on above: Order Comment: Speci men Type: BLOOD SPECIMENOrdering Facility: [facility] Address: [address] [place] [place] [address] Performed By: #### 5 8410-2 ####[facility] [id number] [place] [address] [place] MCHC (RBC) [Mass/Vol] 33.8 g/dL Normal 30.5-36.0 [facility] Comment on above: Order Comment: Speci men Type: BLOOD SPECIMENOrdering Facility: [facility] Address: [address] Performed By: #### 5 8410-2 ####[facility] [id number] [place] [address] [place] MCV (RBC) [Entitic vol] 75.7 fL Low 80.0-100.0 [facility] Comment on above: Order Comment: Speci men Type: BLOOD SPECIMENOrdering Facility: [facility] Address: [address] [place], [place] [address] Performed By: #### 5 8410-2 ####[facility] LABCLIA [id number] [place] [address] [place] Nucleated RBC (Bld) [#/Vol] 10*3/uL Normal <0.01 [facility] Comment on above: Order Comment: Speci men Type: BLOOD SPECIMENOrdering Facility: [facility] Address: [address] [place] [address] Performed By: #### 5 8410-2 ####[facility] LABIA [id number] [place] [address] [place] Platelet mean volume (Bld) [Entitic vol] 11.9 fL Normal 9.0-12.7 [facility] Comment on above: Order Comment: Speci men Type: BLOOD SPECIMENOrdering Facility: [facility] Address: [address] [place] [address] Performed By: #### 5 8410-2 ####[facility] LABIA [id number] [place] [address] [place] Platelets (Bld) [#/Vol] 155 10*3/uL Normal 150-400 [facility] Comment on above: Order Comment: Speci men Type: BLOOD SPECIMENOrdering Facility: [facility] Address: [address] [place] [address] Result Comment: Resu lts checked and verified.No clot detected. Performed By: #### 5 8410-2 ####[facility] LABIA [id number] [place] [address] [place] RBC (Bld) [#/Vol] 4.11 10*6/uL Low 4.20-6.00 [facility] Comment on above: Order Comment: Speci men Type: BLOOD SPECIMENOrdering Facility: [facility] Address: [address] [place] [address] Performed By: #### 5 8410-2 ####[facility] LABIA [id number] [place] [address] [place] WBC (Bld) [#/Vol] 38.68 10*3/uL High 3.70-11.00 [facility] Comment on above: Order Comment: Speci men Type: BLOOD SPECIMENOrdering Facility: [facility] Address: [address] [place] [address] Performed By: #### 5 8410-2 ####[facility] LABIA [id number] [address] [place] Erythrocyte distribution width (RBC) [Ratio] 14.7 % Normal 11.5-15.0 [facility] Comment on above: Order Comment: Speci men Type: BLOOD SPECIMENOrdering Facility: [facility] Address: [address] [place] [address] Performed By: #### 5 8410-2 ####[facility] LABIA [id number] [address] STATES OF [facility] Hematocrit (Bld) [Volume fraction] 38.2 % Low 39.0-51.0 [facility] Comment on above: Order Comment: Speci men Type: BLOOD SPECIMENOrdering Facility: [facility] Address: [address] [place] [address] Performed By: #### 5 8410-2 ####[facility] LABIA [id number] [place] [address] [place] Hemoglobin (Bld) [Mass/Vol] 13.1 g/dL Normal 13.0-17.0 [facility] Comment on above: Order Comment: Speci men Type: BLOOD SPECIMENOrdering Facility: [facility] Address: [address] [place] [address] Performed By: #### 5 8410-2 ####[facility] LABCLIA [id number] [place] [address] [place] MCH (RBC) [Entitic mass] 25.9 pg Low 26.0-34.0 [facility] Comment on above: Order Comment: Speci men Type: BLOOD SPECIMENOrdering Facility: [facility] Address: [address] [place], [place] [address] Performed By: #### 5 8410-2 ####[facility] LABIA [id number] [place] [address] [place] MCHC (RBC) [Mass/Vol] 34.3 g/dL Normal 30.5-36.0 [facility] Comment on above: Order Comment: Speci men Type: BLOOD SPECIMENOrdering Facility: [facility] Address: [address] [place], [place] [address] Performed By: #### 5 8410-2 ####[facility] LABIA [id number] [place] [address] [place] MCV (RBC) [Entitic vol] 75.6 fL Low 80.0-100.0 [facility] Comment on above: Order Comment: Speci men Type: BLOOD SPECIMENOrdering Facility: [facility] Address: [address] [place], [place] [address] Performed By: #### 5 8410-2 ####[facility] LABIA [id number] [place] [address] [place] Nucleated RBC (Bld) [#/Vol] 10*3/uL Normal <0.01 [facility] Comment on above: Order Comment: Speci men Type: BLOOD SPECIMENOrdering Facility: [facility] Address: [address] [place], [place] [address] Performed By: #### 5 8410-2 ####[facility] LABIA [id number] [place] [address] [place] Platelet mean volume (Bld) [Entitic vol] 12.5 fL Normal 9.0-12.7 [facility] Comment on above: Order Comment: Speci men Type: BLOOD SPECIMENOrdering Facility: [facility] Address: [address] [place] [address] Performed By: #### 5 8410-2 ####[facility] LABIA [id number] [place] [address] [place] Platelets (Bld) [#/Vol] 145 10*3/uL Low 150-400 [facility] Comment on above: Order Comment: Speci men Type: BLOOD SPECIMENOrdering Facility: [facility] Address: [address] [place], [place] [address] Performed By: #### 5 8410-2 ####[facility] LABIA [id number] [place] [address] [place] [facility] [place] RBC (Bld) [#/Vol] 5.05 10*6/uL Normal 4.20-6.00 [facility] Comment on above: Order Comment: Speci men Type: BLOOD SPECIMENOrdering Facility: [facility] Address: [address] [place], [place] [address] Performed By: #### 5 8410-2 ####[facility] LABIA [id number] [place] [address] [place] WBC (Bld) [#/Vol] 41.33 10*3/uL High 3.70-11.00 [facility] Comment on above: Order Comment: Speci men Type: BLOOD SPECIMENOrdering Facility: [facility] Address: [address] [place], [place] [address] Performed By: #### 5 8410-2 ####[facility] LABIA [id number] [place] [address] [place] CONSULTon 01-24-2023 CONSULT Normal [facility] CONSULT Normal [facility] CONSULT PROGon 01-24-2023 CONSULT PROG Normal [facility] CRP SerPl-mCncon 01-24-2023 CRP [Mass/Vol] 29.7 mg/dL High <0.9 [facility] Comment on above: Order Comment: Speci men Type: BLOOD SPECIMENOrdering Facility: [facility] Address: [address] [place] [address] Performed By: #### 1 988-5, 83998-5, 2777-1, HSTNT, 81859-6 ####[facility] LABCLIA [id number] [place] [address] [place] Comprehensive metabolic 2000 panelon 01-24-2023 Albumin [Mass/Vol] 1.7 g/dL Low 3.9-4.9 [facility] Comment on above: Order Comment: Speci men Type: BLOOD SPECIMENOrdering Facility: [facility] Address: [address] [place] [address] Performed By: #### 1 9123-9, 2777-, 21768-7 ####[facility] LABCLIA [id number] [place] [address] [place] ALP [Catalytic activity/Vol] 127 U/L High 38-113 [facility] Comment on above: Order Comment: Speci men Type: BLOOD SPECIMENOrdering Facility: [facility] Address: [address] [place] [address] Performed By: #### 1 9123-9, 2777-, 18683-1 ####[facility] LABCLIA [id number] [address] STATES OF [facility] ALT [Catalytic activity/Vol] 48 U/L Normal 10-54 [facility] Comment on above: Order Comment: Speci men Type: BLOOD SPECIMENOrdering Facility: [facility] Address: [address] [place] [address] Result Comment: Resu lts may be falsely increased due to interference from hemolysis. Suggest reorder as clinically indicated. Performed By: #### 1 9123-9, 2777-, 54145-1 ####[facility] LABCLIA [id number] [place] [address] [place] Anion gap [Moles/Vol] 16 mmol/L Normal 9-18 [facility] Comment on above: Order Comment: Speci men Type: BLOOD SPECIMENOrdering Facility: [facility] Address: [address] [place] [address] Performed By: #### 1 9123-9, 2777-, 10363-6 ####[facility] LABCLIA [id number] [place] [address] [place] AST [Catalytic activity/Vol] 39 U/L Normal 14-40 [facility] Comment on above: Order Comment: Speci men Type: BLOOD SPECIMENOrdering Facility: [facility] Address: [address] [place] [address] Result Comment: Resu lts may be falsely increased due to interference from hemolysis. Suggest reorder as clinically indicated. Performed By: #### 1 9123-9, 2776-11, 75844-7 ####[facility] LABCLIA [id number] [place] [address] [place] Bilirubin [Mass/Vol] 1.8 mg/dL High 0.2-1.3 [facility] Comment on above: Order Comment: Speci men Type: BLOOD SPECIMENOrdering Facility: [facility] Address: [address] [place] [address] Performed By: #### 1 9123-9, 27705-14, 45088-3 ####[facility] LABCLIA [id number] [place] [address] [place] Calcium [Mass/Vol] 7.2 mg/dL Low 8.5-10.2 [facility] Comment on above: Order Comment: Speci men Type: BLOOD SPECIMENOrdering Facility: [facility] Address: [address] [place] [address] Performed By: #### 1 9123-9, 277-, 56028-1 ####[facility] LABCLIA [id number] [place] [address] [place] Chloride [Moles/Vol] 101 mmol/L Normal 97-105 [facility] Comment on above: Order Comment: Speci men Type: BLOOD SPECIMENOrdering Facility: [facility] Address: [address] [place] [address] Performed By: #### 1 9123-9, 2777-1, 28868-4 ####[facility] LABCLIA [id number] [place] [address] [place] CO2 [Moles/Vol] 15 mmol/L Low 22-30 [facility] Comment on above: Order Comment: Speci men Type: BLOOD SPECIMENOrdering Facility: [facility] Address: [address] [place] [address] Performed By: #### 1 9123-9, 2777-1, 73991-0 ####[facility] LABCLIA [id number] [address] STATES OF [facility] Creatinine [Mass/Vol] 1.63 mg/dL High 0.73-1.22 [facility] Comment on above: Order Comment: Speci men Type: BLOOD SPECIMENOrdering Facility: [facility] Address: [address] [place] [address] Performed By: #### 1 9123-9, 2777-1, 47871-1 ####[facility] LABCLIA [id number] [place] [address] [place] ESTIMATED GLOMERULAR FILTRATION RATE 48 mL/min/1.73m??? Low >=60 [facility] Comment on above: Order Comment: Speci men Type: BLOOD SPECIMENOrdering Facility: [facility] Address: [address] [place] [address] Result Comment: Veronica mated Glomerular Filtration Rate (eGFR) is calculated using the 2020 CKD-EPI creatinine equation. This equation utilizes serum creatinine, sex, and age as parameters. The creatinine assay has traceable calibration to isotope dilution-mass spectrometry. Refer to KDIGO guidelines for clinical interpretation. In patients with unstable renal function, e.g. those with acute kidney injury, the eGFR may not accurately reflect actual GFR. Performed By: #### 1 9123-9, 2776-11, ####[facility] LABCLIA [id number] [place] [id number] [place] Glucose [Mass/Vol] 140 mg/dL High 74-99 [facility] Comment on above: Order Comment: Alden padilla Type: BLOOD SPECIMENOrdering Facility: [facility] Address: [address] [place] [id number] Result Comment: The [place] [employer] (ADA) provides guidance for cutoff values for fasting glucose and random glucose. The ADA defines fasting as no caloric intake for at least 8 hours. Fasting plasma glucose results between 100 to 125 mg/dL indicate increased risk for diabetes (prediabetes).Fasting plasma glucose results greater than or equal to 126 mg/dL meet the criteria for diagnosis of diabetes. In the absence of unequivocal hyperglycemia, results should be confirmed by repeat testing. In a patient with classic symptoms of hyperglycemia or hyperglycemic crisis, random plasma glucose results greater than or equal to 200 mg/dL meet the criteria for diagnosis of diabetes.Reference: Standards of Medical Care in Diabetes 2016, [place] [employer]. Diabetes Care. 2016.39(Suppl 1). Performed By: #### 1 9123-9, 2776-11, ####[facility] LABCLIA [id number] [place] [address] [place] Potassium [Moles/Vol] 5.8 mmol/L High 3.7-5.1 [facility] Comment on above: Order Comment: Adlen padilla Type: BLOOD SPECIMENOrdering Facility: [facility] Address: [address] [place] [address] Performed By: #### 1 9123-9, 27705-14, ####[facility] LABCLIA [id number] [address] [address] [place] Protein [Mass/Vol] 4.7 g/dL Low 6.3-8.0 [facility] Comment on above: Order Comment: Speci men Type: BLOOD SPECIMENOrdering Facility: [facility] Address: [address] [place] [address] Performed By: #### 1 9123-9, 2777-1, 52250-5 ####[facility] LABCLIA [id number] [place] [address] [place] Sodium [Moles/Vol] 132 mmol/L Low 136-144 [facility] Comment on above: Order Comment: Speci men Type: BLOOD SPECIMENOrdering Facility: [facility] Address: [address] [place] [address] Performed By: #### 1 9123-9, 2777-1, 62903-2 ####[facility] LABCLIA [id number] [place] [address] [place] Urea nitrogen [Mass/Vol] 64 mg/dL High 9-24 [facility] Comment on above: Order Comment: Speci men Type: BLOOD SPECIMENOrdering Facility: [facility] Address: [address] [place] [address] Performed By: #### 1 9123-9, 2777-, 37755-9 ####[facility] LABIA [id number] [place] [address] [place] Albumin [Mass/Vol] 1.9 g/dL Low 3.9-4.9 [facility] Comment on above: Order Comment: Speci men Type: BLOOD SPECIMENOrdering Facility: [facility] Address: [address] [place] [address] Performed By: #### 2 4323-8, 89643-5 ####[facility] LABCLIA [id number] [place] [address] [place] ALP [Catalytic activity/Vol] 167 U/L High 38-113 [facility] Comment on above: Order Comment: Speci men Type: BLOOD SPECIMENOrdering Facility: [facility] Address: [address] Performed By: #### 2 4323-8, 57295-0 ####[facility] LABCLIA [id number] [place] [address] [place] ALT [Catalytic activity/Vol] 77 U/L High 10-54 [facility] Comment on above: Order Comment: Speci men Type: BLOOD SPECIMENOrdering Facility: [facility] Address: [address] Performed By: #### 2 4323-8, 34454-3 ####[facility] LABCLIA [id number] [place] [address] [place] Anion gap [Moles/Vol] 19 mmol/L High 9-18 [facility] Comment on above: Order Comment: Speci men Type: BLOOD SPECIMENOrdering Facility: [facility] Address: [address] [place] [address] Performed By: #### 2 4323-8, 06307-0 ####[facility] LABCLIA [id number] [address] [place] AST [Catalytic activity/Vol] 50 U/L High 14-40 [facility] Comment on above: Order Comment: Speci men Type: BLOOD SPECIMENOrdering Facility: [facility] Address: [address] Performed By: #### 2 4323-8, 11148-3 ####[facility] LABCLIA [id number] [place] [address] [place] Bilirubin [Mass/Vol] 2.1 mg/dL High 0.2-1.3 [facility] Comment on above: Order Comment: Speci men Type: BLOOD SPECIMENOrdering Facility: [facility] Address: [address] Performed By: #### 2 4323-8, 72543-9 ####[facility] LABCLIA [id number] [place] [address] [place] Calcium [Mass/Vol] 7.6 mg/dL Low 8.5-10.2 [facility] Comment on above: Order Comment: Speci men Type: BLOOD SPECIMENOrdering Facility: [facility] Address: [address] [place] [address] Performed By: #### 2 4323-8, 09598-1 ####[facility] LABCLIA [id number] [place] [address] [place] Chloride [Moles/Vol] 98 mmol/L Normal 97-105 [facility] Comment on above: Order Comment: Speci men Type: BLOOD SPECIMENOrdering Facility: [facility] Address: [address] [place] [address] Performed By: #### 2 4323-8, 57831-6 ####[facility] LABCLIA [id number] [place] [address] [place] CO2 [Moles/Vol] 16 mmol/L Low 22-30 [facility] Comment on above: Order Comment: Speci men Type: BLOOD SPECIMENOrdering Facility: [facility] Address: [address] [place] [address] Performed By: #### 2 4323-8, 24155-3 ####[facility] LABCLIA [id number] [place] [address] [place] Creatinine [Mass/Vol] 1.84 mg/dL High 0.73-1.22 [facility] Comment on above: Order Comment: Speci men Type: BLOOD SPECIMENOrdering Facility: [facility] Address: [address] [place], [place] [address] Performed By: #### 2 4323-8, 93289-4 ####[facility] LABCLIA [id number] [place] [address] [place] ESTIMATED GLOMERULAR FILTRATION RATE 42 mL/min/1.73m??? Low >=60 [facility] Comment on above: Order Comment: Alden padilla Type: BLOOD SPECIMENOrdering Facility: [facility] Address: [address] [place] [address] Result Comment: Veronica mated Glomerular Filtration Rate (eGFR) is calculated using the 2020 CKD-EPI creatinine equation. This equation utilizes serum creatinine, sex, and age as parameters. The creatinine assay has traceable calibration to isotope dilution-mass spectrometry. Refer to KDIGO guidelines for clinical interpretation. In patients with unstable renal function, e.g. those with acute kidney injury, the eGFR may not accurately reflect actual GFR. Performed By: #### 2 4323-8, 70401-8 ####[facility] LABIA [id number] [place] [address] [place] Glucose [Mass/Vol] 94 mg/dL Normal 74-99 [facility] Comment on above: Order Comment: Alden padilla Type: BLOOD SPECIMENOrdering Facility: [facility] Address: [address] [place] [address] Result Comment: The [place] [employer] (ADA) provides guidance for cutoff values for fasting glucose and random glucose. The ADA defines fasting as no caloric intake for at least 8 hours. Fasting plasma glucose results between 100 to 125 mg/dL indicate increased risk for diabetes (prediabetes).Fasting plasma glucose results greater than or equal to 126 mg/dL meet the criteria for diagnosis of diabetes. In the absence of unequivocal hyperglycemia, results should be confirmed by repeat testing. In a patient with classic symptoms of hyperglycemia or hyperglycemic crisis, random plasma glucose results greater than or equal to 200 mg/dL meet the criteria for diagnosis of diabetes.Reference: Standards of Medical Care in Diabetes 2016, [place] [employer]. Diabetes Care. 2016.39(Suppl 1). Performed By: #### 2 4323-8, 42582-0 ####[facility] LABIA [id number] [place] [address] [place] Potassium [Moles/Vol] 5.0 mmol/L Normal 3.7-5.1 [facility] Comment on above: Order Comment: Speci men Type: BLOOD SPECIMENOrdering Facility: [facility] Address: [address] [address] Performed By: #### 2 4323-8, 55475-7 ####[facility] LABCLIA [id number] [place] [address] [place] Protein [Mass/Vol] 4.6 g/dL Low 6.3-8.0 [facility] Comment on above: Order Comment: Speci men Type: BLOOD SPECIMENOrdering Facility: [facility] Address: [address] [place] [address] Performed By: #### 2 4323-8, 39132-0 ####[facility] LABIA [id number] [place] [address] [place] Sodium [Moles/Vol] 133 mmol/L Low 136-144 [facility] Comment on above: Order Comment: Speci men Type: BLOOD SPECIMENOrdering Facility: [facility] Address: [address] [place] [address] Performed By: #### 2 4323-8, 64377-2 ####[facility] LABIA [id number] [place] [address] [place] Urea nitrogen [Mass/Vol] 64 mg/dL High 9-24 [facility] Comment on above: Order Comment: Speci men Type: BLOOD SPECIMENOrdering Facility: [facility] Address: [address] [place] [address] Performed By: #### 2 4323-8, 21137-1 ####[facility] LABCLIA [id number] [place] [id number] [place] ECG COMPLETEon 01-24-2023 ECG COMPLETE Normal [facility] ER URINE PROFILEon 3 Bilirubin Ql (U) MODERATE Abnormal NEGATIVE [facility] Comment on above: Performed By: #### U MICRO, ERUR #### [facility] [address] [place] [address] Dr. Good Castellano Clarity (U) CLEAR Normal CLEAR [facility] Comment on above: Performed By: #### U MICRO, ERUR #### [facility] [address] [place] [address] Dr. Good Castellano Color (U) DK. YELLOW Normal YELLOW [facility] Comment on above: Performed By: #### U MICRO, ERUR #### [facility] [address] [place] [address] Dr. Good Castellano ERUAHD A micrscopic examination will be performed if indicated. Normal [facility] Comment on above: Performed By: #### U MICRO, ERUR #### [facility] [address] [place] [address] Dr. Good Castellano Glucose Ql (U) 100 mg/dl Abnormal NEGATIVE [facility] Comment on above: Performed By: #### U MICRO, ERUR #### [facility] [address] [place] [address] Dr. Good Castellano Hemoglobin Ql (U) SMALL Abnormal NEGATIVE [facility] Comment on above: Performed By: #### U MICRO, ERUR #### [facility] [address] [place] [address] Dr. Good Castellano Ketones Ql (U) Negative Normal NEGATIVE The [facility] Comment on above: Performed By: #### U MICRO, ERUR #### [facility] [address] [place] [address] Dr. Good Castellano LEUKOCYTES Negative Normal NEGATIVE [facility] Comment on above: Performed By: #### U MICRO, ERUR #### [facility] [address] [place] [address] Dr. Good Castellano Nitrite Ql (U) Negative Normal NEGATIVE [facility] Comment on above: Performed By: #### U MICRO, ERUR #### [facility] [address] [place] [address] Dr. Good Castellano pH (U) 5.0 [pH] Normal 5-9 [facility] Comment on above: Performed By: #### U MICRO, ERUR #### [facility] [address] [place], [place] [address] Dr. Good Castellano Protein (U) [Mass/Vol] 30 mg/dL Abnormal NEGATIVE/ TRACE [facility] Comment on above: Performed By: #### U MICRO, ERUR #### [facility] [address] [address] [address] Good Castellano SPEC GRAVITY 1.015 Normal 1.005-<=1.025 [facility] Comment on above: Performed By: #### U MICRO, ERUR #### [facility] [address] [address] [address] Good Castellano UR MICRO IND INDICATED Normal [facility] Comment on above: Performed By: #### U MICRO, ERUR #### [facility] [address] [address] [address] Good Castellano Urobilinogen Qn (U) 4 {Jan'U}/dL Abnormal 0.2 - 1.0 [facility] Comment on above: Performed By: #### U MICRO, ERUR #### [facility] [address] [place] [address] Dr. Good Castellano ESR Westergren method (Bld) [Velocity]on 01-24-2023 ESR (Bld) [Velocity] 55 mm/h High 0-15 [facility] Comment on above: Order Comment: Speci men Type: BLOOD SPECIMENOrdering Facility: [facility] Address: [address] [place] [address] Performed By: #### 4 537-7, 65313-5 ####[facility] LABCLIA [id number] [place] [address] [place] Fibrinogen PPP-mCncon 2022 Fibrinogen Coag (PPP) [Mass/Vol] mg/dL High 200-400 [facility] Comment on above: Order Comment: Speci men Type: BLOOD SPECIMENOrdering Facility: [facility] Address: [address] [place] [address] Result Comment: Samp le checked for clot.Result rechecked. Performed By: #### 3 4528-0, 3255-7 ####[facility] LABCLIA [id number] [address] [place] Gas and Carbon monoxide pane l (BldV)on 01-24-2023 BASE DEFICIT, VENOUS -5 mmol/L Low -2-0 [facility] Comment on above: Order Comment: Speci men Type: VENOUS BLOOD SPECIMENOrdering Facility: [facility] Address: [address] [place] [address] Performed By: #### 2 4344-4 ####[facility] LABIA [id number] [address] OF [facility] Body temperature 98.78 [degF] Normal [facility] Comment on above: Order Comment: Speci men Type: VENOUS BLOOD SPECIMENOrdering Facility: [facility] Address: [address] [place] [address] Performed By: #### 2 4344-4 ####[facility] LABIA [id number] [address] [place] Calcium.ionized (Bld) [Mass/Vol] 1.12 mmol/L Normal 1.08-1.30 [facility] Comment on above: Order Comment: Speci men Type: VENOUS BLOOD SPECIMENOrdering Facility: [facility] Address: [address] [place], [place] [address] Performed By: #### 2 4344-4 ####[facility] LABIA [id number] [address] [place] Calcium.ionized adjusted to pH 7.4 (BldA) [Moles/Vol] 1.12 mmol/L Normal 1.08-1.30 [facility] Comment on above: Order Comment: Speci men Type: VENOUS BLOOD SPECIMENOrdering Facility: [facility] Address: [address] [place], [place] [address] Performed By: #### 2 4344-4 ####[facility] LABIA [id number] [address] [place] Carboxyhemoglobin (BldV) [Mass fraction] 1.2 % Normal 0.0-2.0 [facility] Comment on above: Order Comment: Speci men Type: VENOUS BLOOD SPECIMENOrdering Facility: [facility] Address: [address] [place] [address] Result Comment: Carb oxyhemoglobin Reference Range for Smokers: 2.0-8.0% Performed By: #### 2 4344-4 ####[facility] LABCLIA [id number] [address] [place] CO2 (BldV) [Partial pressure] 32 mm[Hg] Low 42-55 [facility] Comment on above: Order Comment: Speci men Type: VENOUS BLOOD SPECIMENOrdering Facility: [facility] Address: [address] [place] [address] Performed By: #### 2 4344-4 ####[facility] LABCLIA [id number] [address] [place] CO2 [Moles/Vol] 20 mmol/L Low 25-29 [facility] Comment on above: Order Comment: Speci men Type: VENOUS BLOOD SPECIMENOrdering Facility: [facility] Address: [address] [place] [address] Performed By: #### 2 4344-4 ####[facility] LABCLIA [id number] [place] [address] [place] CO2 adjusted to patient's actual temperature (BldV) [Partial pressure] 32 mmHg Low 42-55 [facility] Comment on above: Order Comment: Speci men Type: VENOUS BLOOD SPECIMENOrdering Facility: [facility] Address: [address] [place] [address] Performed By: #### 2 4344-4 ####[facility] LABCLIA [id number] [place] [address] [place] Glucose [Mass/Vol] 236 mg/dL High 60-105 [facility] Comment on above: Order Comment: Speci men Type: VENOUS BLOOD SPECIMENOrdering Facility: [facility] Address: [address] [place], [place] [address] Performed By: #### 2 4344-4 ####[facility] LABCLIA [id number] [place] [address] [place] HCO3 (Bld) [Moles/Vol] 19 mmol/L Low 24-28 [facility] Comment on above: Order Comment: Speci men Type: VENOUS BLOOD SPECIMENOrdering Facility: [facility] Address: [address] Performed By: #### 2 4344-4 ####[facility] LABCLIA [id number] [place] [address] [place] Hematocrit (Bld) [Volume fraction] 23.3 % Low 39.0-51.0 [facility] Comment on above: Order Comment: Speci men Type: VENOUS BLOOD SPECIMENOrdering Facility: [facility] Address: [address] [place], [place] [address] Performed By: #### 2 4344-4 ####[facility] LABCLIA [id number] [place] [address] [place] Hemoglobin (Bld) [Mass/Vol] 7.5 g/dL Low 13.0-17.0 [facility] Comment on above: Order Comment: Speci men Type: VENOUS BLOOD SPECIMENOrdering Facility: [facility] Address: [address] Performed By: #### 2 4344-4 ####[facility] LABCLIA [id number] [place] [address] [place] Lactate [Moles/Vol] 1.3 mmol/L Normal 0.5-2.2 [facility] Comment on above: Order Comment: Speci men Type: VENOUS BLOOD SPECIMENOrdering Facility: [facility] Address: [address] [place] [address] Performed By: #### 2 4344-4 ####[facility] LABCLIA [id number] [place] [address] [place] LITERS 2 Liters/min Normal [facility] Comment on above: Order Comment: Speci men Type: VENOUS BLOOD SPECIMENOrdering Facility: [facility] Address: [address] Performed By: #### 2 4344-4 ####[facility] LABCLIA [id number] [place] [address] [place] Methemoglobin (Bld) [Mass fraction] 1.7 % High 0.0-1.5 [facility] Comment on above: Order Comment: Speci men Type: VENOUS BLOOD SPECIMENOrdering Facility: [facility] Address: [address] Performed By: #### 2 4344-4 ####[facility] LABCLIA [id number] [address] [place] O2 THERAPY NC = Nasal Cannula Normal [facility] Comment on above: Order Comment: Speci men Type: VENOUS BLOOD SPECIMENOrdering Facility: [facility] Address: [address] [place] [address] Performed By: #### 2 4344-4 ####[facility] LABCLIA [id number] [place] [address] [place] Oxygen (BldV) [Partial pressure] 92 mm[Hg] High 35-45 [facility] Comment on above: Order Comment: Speci men Type: VENOUS BLOOD SPECIMENOrdering Facility: [facility] Address: [address] Performed By: #### 2 4344-4 ####[facility] LABCLIA [id number] [place] [address] [place] Oxygen adjusted to patient's actual temperature (BldV) [Partial pressure] 92 mmHg High 35-45 [facility] Comment on above: Order Comment: Speci men Type: VENOUS BLOOD SPECIMENOrdering Facility: [facility] Address: [address] Performed By: #### 2 4344-4 ####[facility] LABCLIA [id number] [place] [address] [place] Oxygen saturation in Venous blood 97 % High 60-85 [facility] Comment on above: Order Comment: Speci men Type: VENOUS BLOOD SPECIMENOrdering Facility: [facility] Address: [address] [place], [place] [address] Performed By: #### 2 4344-4 ####[facility] LABCLIA [id number] [place] [address] [place] Oxyhemoglobin (BldV) [Mass fraction] 94 % High 60-85 [facility] Comment on above: Order Comment: Speci men Type: VENOUS BLOOD SPECIMENOrdering Facility: [facility] Address: [address] [place], [place] [address] Performed By: #### 2 4344-4 ####[facility] LABCLIA [id number] [place] [address] [place] pH (BldV) 7.39 [pH] Normal 7.32-7.42 [facility] Comment on above: Order Comment: Speci men Type: VENOUS BLOOD SPECIMENOrdering Facility: [facility] Address: [address] Performed By: #### 2 4344-4 ####[facility] LABCLIA [id number] [place] [address] [place] pH adjusted to patient's actual temperature (BldV) 7.39 Normal 7.32-7.42 [facility] Comment on above: Order Comment: Speci men Type: VENOUS BLOOD SPECIMENOrdering Facility: [facility] Address: [address] [place] [address] Performed By: #### 2 4344-4 ####[facility] LABCLIA [id number] [place] [address] [place] Potassium [Moles/Vol] 3.9 mmol/L Normal 3.5-5.0 [facility] Comment on above: Order Comment: Speci men Type: VENOUS BLOOD SPECIMENOrdering Facility: [facility] Address: [address] Performed By: #### 2 4344-4 ####[facility] LABCLIA [id number] [place] [address] [place] Sodium [Moles/Vol] 127 mmol/L Low 136-144 [facility] Comment on above: Order Comment: Speci men Type: VENOUS BLOOD SPECIMENOrdering Facility: [facility] Address: [address] Performed By: #### 2 4344-4 ####[facility] LABCLIA [id number] [place] [address] [place] BASE DEFICIT, VENOUS -5 mmol/L Low -2-0 [facility] Comment on above: Order Comment: Speci men Type: VENOUS BLOOD SPECIMENOrdering Facility: [facility] Address: [address] Performed By: #### 2 4344-4 ####[facility] LABCLIA [id number] [place] [address] [place] Body temperature 98.78 [degF] Normal [facility] Comment on above: Order Comment: Speci men Type: VENOUS BLOOD SPECIMENOrdering Facility: [facility] Address: [address] Performed By: #### 2 4344-4 ####[facility] LABCLIA [id number] [place] [address] [place] Calcium.ionized (Bld) [Mass/Vol] 0.87 mmol/L Low 1.08-1.30 [facility] Comment on above: Order Comment: Speci men Type: VENOUS BLOOD SPECIMENOrdering Facility: [facility] Address: [address] [place] [address] Performed By: #### 2 4344-4 ####[facility] LABIA [id number] [place] [address] [place] Calcium.ionized adjusted to pH 7.4 (BldA) [Moles/Vol] 0.86 mmol/L Low 1.08-1.30 [facility] Comment on above: Order Comment: Speci men Type: VENOUS BLOOD SPECIMENOrdering Facility: [facility] Address: [address] [place] [address] Performed By: #### 2 4344-4 ####[facility] LABIA [id number] [address] STATES OF [facility] Carboxyhemoglobin (BldV) [Mass fraction] 1.0 % Normal 0.0-2.0 [facility] Comment on above: Order Comment: Speci men Type: VENOUS BLOOD SPECIMENOrdering Facility: [facility] Address: [address] [place] [address] Result Comment: Carb oxyhemoglobin Reference Range for Smokers: 2.0-8.0% Performed By: #### 2 4344-4 ####[facility] LABIA [id number] [place] [address] [place] CO2 (BldV) [Partial pressure] 32 mm[Hg] Low 42-55 [facility] Comment on above: Order Comment: Speci men Type: VENOUS BLOOD SPECIMENOrdering Facility: [facility] Address: [address] [place] [address] Performed By: #### 2 4344-4 ####[facility] LABCLIA [id number] [place] [address] [place] CO2 [Moles/Vol] 20 mmol/L Low 25-29 [facility] Comment on above: Order Comment: Speci men Type: VENOUS BLOOD SPECIMENOrdering Facility: [facility] Address: [address] Performed By: #### 2 4344-4 ####[facility] LABCLIA [id number] [place] [address] [place] CO2 adjusted to patient's actual temperature (BldV) [Partial pressure] 32 mmHg Low 42-55 [facility] Comment on above: Order Comment: Speci men Type: VENOUS BLOOD SPECIMENOrdering Facility: [facility] Address: [address] Performed By: #### 2 4344-4 ####[facility] LABCLIA [id number] [place] [address] [place] COMMENTS Urgent Value: ICA NCA Normal [facility] Comment on above: Order Comment: Speci men Type: VENOUS BLOOD SPECIMENOrdering Facility: [facility] Address: [address] Performed By: #### 2 4344-4 ####[facility] LABCLIA [id number] [place] [address] [place] DATE/TIME NOTIFIED [id number] PM Normal [facility] Comment on above: Order Comment: Speci men Type: VENOUS BLOOD SPECIMENOrdering Facility: [facility] Address: [address] Performed By: #### 2 4344-4 ####[facility] LABCLIA [id number] [place] [address] [place] Glucose [Mass/Vol] 140 mg/dL High 60-105 [facility] Comment on above: Order Comment: Speci men Type: VENOUS BLOOD SPECIMENOrdering Facility: [facility] Address: [address] Performed By: #### 2 4344-4 ####[facility] LABCLIA [id number] [place] [address] [place] HCO3 (Bld) [Moles/Vol] 19 mmol/L Low 24-28 [facility] Comment on above: Order Comment: Speci men Type: VENOUS BLOOD SPECIMENOrdering Facility: [facility] Address: [address] [place] [address] Performed By: #### 2 4344-4 ####[facility] LABCLIA [id number] [place] [address] [place] Hematocrit (Bld) [Volume fraction] 23.6 % Low 39.0-51.0 [facility] Comment on above: Order Comment: Speci men Type: VENOUS BLOOD SPECIMENOrdering Facility: [facility] Address: [address] [place] [address] Performed By: #### 2 4344-4 ####[facility] LABCLIA [id number] [place] [address] [place] Hemoglobin (Bld) [Mass/Vol] 7.6 g/dL Low 13.0-17.0 [facility] Comment on above: Order Comment: Speci men Type: VENOUS BLOOD SPECIMENOrdering Facility: [facility] Address: [address] [place] [address] Performed By: #### 2 4344-4 ####[facility] LABCLIA [id number] [place] [address] [place] Lactate [Moles/Vol] 1.7 mmol/L Normal 0.5-2.2 [facility] Comment on above: Order Comment: Speci men Type: VENOUS BLOOD SPECIMENOrdering Facility: [facility] Address: [address] [place] [address] Performed By: #### 2 4344-4 ####[facility] LABCLIA [id number] [place] [address] [place] Methemoglobin (Bld) [Mass fraction] 1.2 % Normal 0.0-1.5 [facility] Comment on above: Order Comment: Speci men Type: VENOUS BLOOD SPECIMENOrdering Facility: [facility] Address: [address] [address] Performed By: #### 2 4344-4 ####[facility] LABCLIA [id number] [address] [place] NOTIFIED WHOM LEILANI CARRANZA Normal C [facility] Comment on above: Order Comment: Speci men Type: VENOUS BLOOD SPECIMENOrdering Facility: [facility] Address: [address] [address] Performed By: #### 2 4344-4 ####[facility] LABCLIA [id number] [address] [place] O2 THERAPY NC = Nasal Cannula Normal [facility] Comment on above: Order Comment: Speci men Type: VENOUS BLOOD SPECIMENOrdering Facility: [facility] Address: [address] [address] Performed By: #### 2 4344-4 ####[facility] LABCLIA [id number] [address] [place] Oxygen (BldV) [Partial pressure] 58 mm[Hg] High 35-45 [facility] Comment on above: Order Comment: Speci men Type: VENOUS BLOOD SPECIMENOrdering Facility: [facility] Address: [address] Performed By: #### 2 4344-4 ####[facility] LABCLIA [id number] [place] [address] [place] Oxygen adjusted to patient's actual temperature (BldV) [Partial pressure] 58 mmHg High 35-45 [facility] Comment on above: Order Comment: Speci men Type: VENOUS BLOOD SPECIMENOrdering Facility: [facility] Address: [address] [address] Performed By: #### 2 4344-4 ####[facility] LABCLIA [id number] [place] [address] [place] Oxygen saturation in Venous blood 87 % High 60-85 [facility] Comment on above: Order Comment: Speci men Type: VENOUS BLOOD SPECIMENOrdering Facility: [facility] Address: [address] [place] [address] Performed By: #### 2 4344-4 ####[facility] LABCLIA [id number] [place] [address] [place] Oxyhemoglobin (BldV) [Mass fraction] 85 % Normal 60-85 [facility] Comment on above: Order Comment: Speci men Type: VENOUS BLOOD SPECIMENOrdering Facility: [facility] Address: [address] [place], [place] [address] Performed By: #### 2 4344-4 ####[facility] LABIA [id number] [place] [address] [place] pH (BldV) 7.40 [pH] Normal 7.32-7.42 [facility] Comment on above: Order Comment: Speci men Type: VENOUS BLOOD SPECIMENOrdering Facility: [facility] Address: [address] [place], [place] [address] Performed By: #### 2 4344-4 ####[facility] LABCLIA [id number] [place] [address] [place] pH adjusted to patient's actual temperature (BldV) 7.40 Normal 7.32-7.42 [facility] Comment on above: Order Comment: Speci men Type: VENOUS BLOOD SPECIMENOrdering Facility: [facility] Address: [address] [place], [place] [address] Performed By: #### 2 4344-4 ####[facility] LABIA [id number] [address] [id number] [address] [place] Potassium [Moles/Vol] 3.9 mmol/L Normal 3.5-5.0 [facility] Comment on above: Order Comment: Speci men Type: VENOUS BLOOD SPECIMENOrdering Facility: [facility] Address: [address] [place] [address] Performed By: #### 2 4344-4 ####[facility] LABCLIA [id number] [place] [address] [place] Sodium [Moles/Vol] 131 mmol/L Low 136-144 [facility] Comment on above: Order Comment: Speci men Type: VENOUS BLOOD SPECIMENOrdering Facility: [facility] Address: [address] [place] [address] Performed By: #### 2 4344-4 ####[facility] LABCLIA [id number] [place] [address] [place] BASE DEFICIT, VENOUS -7 mmol/L Low -2-0 [facility] Comment on above: Order Comment: Speci men Type: VENOUS BLOOD SPECIMENOrdering Facility: [facility] Address: [address] [place] [address] Performed By: #### 2 4344-4 ####[facility] LABCLIA [id number] [place] [address] [place] Body temperature 97.7 [degF] Normal [facility] Comment on above: Order Comment: Speci men Type: VENOUS BLOOD SPECIMENOrdering Facility: [facility] Address: [address] [place], [place] [address] Performed By: #### 2 4344-4 ####[facility] LABCLIA [id number] [place] [address] [place] Calcium.ionized (Bld) [Mass/Vol] 1.04 mmol/L Low 1.08-1.30 [facility] Comment on above: Order Comment: Speci men Type: VENOUS BLOOD SPECIMENOrdering Facility: [facility] Address: [address] Performed By: #### 2 4344-4 ####[facility] LABIA [id number] [place] [address] [place] Calcium.ionized adjusted to pH 7.4 (BldA) [Moles/Vol] 1.02 mmol/L Low 1.08-1.30 [facility] Comment on above: Order Comment: Speci men Type: VENOUS BLOOD SPECIMENOrdering Facility: [facility] Address: [address] Performed By: #### 2 4344-4 ####[facility] [id number] [place] [address] [place] Carboxyhemoglobin (BldV) [Mass fraction] 1.0 % Normal 0.0-2.0 [facility] Comment on above: Order Comment: Speci men Type: VENOUS BLOOD SPECIMENOrdering Facility: [facility] Address: [address] Result Comment: Carb oxyhemoglobin Reference Range for Smokers: 2.0-8.0% Performed By: #### 2 4344-4 ####[facility] [id number] [place] [address] [place] CO2 (BldV) [Partial pressure] 32 mm[Hg] Low 42-55 [facility] Comment on above: Order Comment: Speci men Type: VENOUS BLOOD SPECIMENOrdering Facility: [facility] Address: [address] [place] [address] Performed By: #### 2 4344-4 ####[facility] [id number] [place] [address] [place] CO2 [Moles/Vol] 19 mmol/L Low 25-29 [facility] Comment on above: Order Comment: Speci men Type: VENOUS BLOOD SPECIMENOrdering Facility: [facility] Address: [address] Performed By: #### 2 4344-4 ####[facility] LABCLIA [id number] [place] [address] [place] CO2 adjusted to patient's actual temperature (BldV) [Partial pressure] 32 mmHg Low 42-55 [facility] Comment on above: Order Comment: Speci men Type: VENOUS BLOOD SPECIMENOrdering Facility: [facility] Address: [address] [place], [place] [address] Performed By: #### 2 4344-4 ####[facility] LABCLIA [id number] [place] [address] [place] Glucose [Mass/Vol] 119 mg/dL High 60-105 [facility] Comment on above: Order Comment: Speci men Type: VENOUS BLOOD SPECIMENOrdering Facility: [facility] Address: [address] [place], [place] [address] Performed By: #### 2 4344-4 ####[facility] LABCLIA [id number] [place] [address] [place] HCO3 (Bld) [Moles/Vol] 18 mmol/L Low 24-28 [facility] Comment on above: Order Comment: Speci men Type: VENOUS BLOOD SPECIMENOrdering Facility: [facility] Address: [address] [place], [place] [address] Performed By: #### 2 4344-4 ####[facility] LABCLIA [id number] [place] [address] [place] Hematocrit (Bld) [Volume fraction] 23.6 % Low 39.0-51.0 [facility] Comment on above: Order Comment: Speci men Type: VENOUS BLOOD SPECIMENOrdering Facility: [facility] Address: [address] [place], [place] [address] Performed By: #### 2 4344-4 ####[facility] LABCLIA [id number] [address] [id number], [place] [address] [place] Hemoglobin (Bld) [Mass/Vol] 7.6 g/dL Low 13.0-17.0 [facility] Comment on above: Order Comment: Speci men Type: VENOUS BLOOD SPECIMENOrdering Facility: [facility] Address: [address] [place] [address] Performed By: #### 2 4344-4 ####[facility] LABCLIA [id number] [place] [address] [place] Lactate [Moles/Vol] 5.4 mmol/L High 0.5-2.2 [facility] Comment on above: Order Comment: Speci men Type: VENOUS BLOOD SPECIMENOrdering Facility: [facility] Address: [address] [place] [address] Performed By: #### 2 4344-4 ####[facility] LABCLIA [id number] [address] [place] 2 Liters/min Normal [facility] Comment on above: Order Comment: Speci men Type: VENOUS BLOOD SPECIMENOrdering Facility: [facility] Address: [address] [place] [address] Performed By: #### 2 4344-4 ####[facility] LABCLIA [id number] [place] [address] [place] Methemoglobin (Bld) [Mass fraction] 1.2 % Normal 0.0-1.5 [facility] Comment on above: Order Comment: Speci men Type: VENOUS BLOOD SPECIMENOrdering Facility: [facility] Address: [address] [place] [address] Performed By: #### 2 4344-4 ####[facility] LABCLIA [id number] [place] [address] [place] O2 THERAPY NC = Nasal Cannula Normal [facility] Comment on above: Order Comment: Speci men Type: VENOUS BLOOD SPECIMENOrdering Facility: [facility] Address: [address] [place], [place] [address] Performed By: #### 2 4344-4 ####[facility] LABCLIA [id number] [place] [address] [place] Oxygen (BldV) [Partial pressure] 31 mm[Hg] Low 35-45 [facility] Comment on above: Order Comment: Speci men Type: VENOUS BLOOD SPECIMENOrdering Facility: [facility] Address: [address] [place] [address] Performed By: #### 2 4344-4 ####[facility] LABCLIA [id number] [place] [address] [place] Oxygen adjusted to patient's actual temperature (BldV) [Partial pressure] 30 mmHg Low 35-45 [facility] Comment on above: Order Comment: Speci men Type: VENOUS BLOOD SPECIMENOrdering Facility: [facility] Address: [address] [place] [address] Performed By: #### 2 4344-4 ####[facility] LABCLIA [id number] [place] [address] [place] Oxygen saturation in Venous blood 44 % Low 60-85 [facility] Comment on above: Order Comment: Speci men Type: VENOUS BLOOD SPECIMENOrdering Facility: [facility] Address: [address] [place] [address] Performed By: #### 2 4344-4 ####[facility] LABCLIA [id number] [place] [id number] [place] Oxyhemoglobin (BldV) [Mass fraction] 43 % Low 60-85 [facility] Comment on above: Order Comment: Speci men Type: VENOUS BLOOD SPECIMENOrdering Facility: [facility] Address: [address] [place] [address] Performed By: #### 2 4344-4 ####[facility] LABCLIA [id number] [place] [id number] [place] pH (BldV) 7.36 [pH] Normal 7.32-7.42 [facility] Comment on above: Order Comment: Speci men Type: VENOUS BLOOD SPECIMENOrdering Facility: [facility] Address: [address] [place] [address] Performed By: #### 2 4344-4 ####[facility] LABCLIA [id number] [place] [address] [place] pH adjusted to patient's actual temperature (BldV) 7.36 Normal 7.32-7.42 [facility] Comment on above: Order Comment: Speci men Type: VENOUS BLOOD SPECIMENOrdering Facility: [facility] Address: [address] [place] [address] Performed By: #### 2 4344-4 ####[facility] LABCLIA [id number] [place] [address] [place] Potassium [Moles/Vol] 3.9 mmol/L Normal 3.5-5.0 [facility] Comment on above: Order Comment: Speci men Type: VENOUS BLOOD SPECIMENOrdering Facility: [facility] Address: [address] [place], [place] [address] Performed By: #### 2 4344-4 ####[facility] LABCLIA [id number] [place] [address] [place] Sodium [Moles/Vol] 129 mmol/L Low 136-144 [facility] Comment on above: Order Comment: Speci men Type: VENOUS BLOOD SPECIMENOrdering Facility: [facility] Address: [address] [place], [place] [address] Performed By: #### 2 4344-4 ####[facility] LABCLIA [id number] [place] [address] [place] BASE DEFICIT, VENOUS -7 mmol/L Low -2-0 [facility] Comment on above: Order Comment: Speci men Type: VENOUS BLOOD SPECIMENOrdering Facility: [facility] Address: [address] Performed By: #### 2 4344-4 ####[facility] LABIA [id number] [place] [address] [place] Body temperature 98.24 [degF] Normal [facility] Comment on above: Order Comment: Speci men Type: VENOUS BLOOD SPECIMENOrdering Facility: [facility] Address: [address] Performed By: #### 2 4344-4 ####[facility] LABIA [id number] [place] [address] [place] Calcium.ionized (Bld) [Mass/Vol] 1.05 mmol/L Low 1.08-1.30 [facility] Comment on above: Order Comment: Speci men Type: VENOUS BLOOD SPECIMENOrdering Facility: [facility] Address: [address] Performed By: #### 2 4344-4 ####[facility] [id number] [place] [address] [place] Calcium.ionized adjusted to pH 7.4 (BldA) [Moles/Vol] 1.03 mmol/L Low 1.08-1.30 [facility] Comment on above: Order Comment: Speci men Type: VENOUS BLOOD SPECIMENOrdering Facility: [facility] Address: [address] [place] [address] Performed By: #### 2 4344-4 ####[facility] [id number] [place] [address] [place] Carboxyhemoglobin (BldV) [Mass fraction] 1.3 % Normal 0.0-2.0 [facility] Comment on above: Order Comment: Speci men Type: VENOUS BLOOD SPECIMENOrdering Facility: [facility] Address: [address] [place] [address] Result Comment: Carb oxyhemoglobin Reference Range for Smokers: 2.0-8.0% Performed By: #### 2 4344-4 ####[facility] LABCLIA [id number] [place] [address] [place] CO2 (BldV) [Partial pressure] 32 mm[Hg] Low 42-55 [facility] Comment on above: Order Comment: Speci men Type: VENOUS BLOOD SPECIMENOrdering Facility: [facility] Address: [address] [place] [address] Performed By: #### 2 4344-4 ####[facility] LABCLIA [id number] [place] [address] [place] CO2 [Moles/Vol] 18 mmol/L Low 25-29 [facility] Comment on above: Order Comment: Speci men Type: VENOUS BLOOD SPECIMENOrdering Facility: [facility] Address: [address] [place] [address] Performed By: #### 2 4344-4 ####[facility] LABCLIA [id number] [address] [place] CO2 adjusted to patient's actual temperature (BldV) [Partial pressure] 32 mmHg Low 42-55 [facility] Comment on above: Order Comment: Speci men Type: VENOUS BLOOD SPECIMENOrdering Facility: [facility] Address: [address] [place], [place] [address] Performed By: #### 2 4344-4 ####[facility] LABCLIA [id number] [place] [address] [place] Glucose [Mass/Vol] 180 mg/dL High 60-105 [facility] Comment on above: Order Comment: Speci men Type: VENOUS BLOOD SPECIMENOrdering Facility: [facility] Address: [address] [place] [address] Performed By: #### 2 4344-4 ####[facility] LABCLIA [id number] [address] [id number] [address] [place] HCO3 (Bld) [Moles/Vol] 17 mmol/L Low 24-28 [facility] Comment on above: Order Comment: Speci men Type: VENOUS BLOOD SPECIMENOrdering Facility: [facility] Address: [address] Performed By: #### 2 4344-4 ####[facility] LABCLIA [id number] [place] [address] [place] Hematocrit (Bld) [Volume fraction] 26.1 % Low 39.0-51.0 [facility] Comment on above: Order Comment: Speci men Type: VENOUS BLOOD SPECIMENOrdering Facility: [facility] Address: [address] [place], [place] [address] Performed By: #### 2 4344-4 ####[facility] LABCLIA [id number] [place] [address] [place] Hemoglobin (Bld) [Mass/Vol] 8.4 g/dL Low 13.0-17.0 [facility] Comment on above: Order Comment: Speci men Type: VENOUS BLOOD SPECIMENOrdering Facility: [facility] Address: [address] [place], [place] [address] Performed By: #### 2 4344-4 ####[facility] LABCLIA [id number] [place] [address] [place] Lactate [Moles/Vol] 4.0 mmol/L High 0.5-2.2 [facility] Comment on above: Order Comment: Speci men Type: VENOUS BLOOD SPECIMENOrdering Facility: [facility] Address: [address] Performed By: #### 2 4344-4 ####[facility] LABCLIA [id number] [place] [address] [place] LITERS 2 Liters/min Normal [facility] Comment on above: Order Comment: Speci men Type: VENOUS BLOOD SPECIMENOrdering Facility: [facility] Address: [address] [place] [address] Performed By: #### 2 4344-4 ####[facility] LABCLIA [id number] [address] [place] Methemoglobin (Bld) [Mass fraction] 1.1 % Normal 0.0-1.5 [facility] Comment on above: Order Comment: Speci men Type: VENOUS BLOOD SPECIMENOrdering Facility: [facility] Address: [address] Performed By: #### 2 4344-4 ####[facility] LABCLIA [id number] [address] [place] O2 THERAPY NC = Nasal Cannula Normal [facility] Comment on above: Order Comment: Speci men Type: VENOUS BLOOD SPECIMENOrdering Facility: [facility] Address: [address] Performed By: #### 2 4344-4 ####[facility] LABCLIA [id number] [address] [place] Oxygen (BldV) [Partial pressure] 41 mm[Hg] Normal 35-45 [facility] Comment on above: Order Comment: Speci men Type: VENOUS BLOOD SPECIMENOrdering Facility: [facility] Address: [address] [place] [address] Performed By: #### 2 4344-4 ####[facility] LABCLIA [id number] [address] [place] Oxygen adjusted to patient's actual temperature (BldV) [Partial pressure] 40 mmHg Normal 35-45 [facility] Comment on above: Order Comment: Speci men Type: VENOUS BLOOD SPECIMENOrdering Facility: [facility] Address: [address] [place] [id number] Performed By: #### 2 4344-4 ####[facility] LABCLIA [id number] [place] [address] [place] Oxygen saturation in Venous blood 63 % Normal 60-85 [facility] Comment on above: Order Comment: Speci men Type: VENOUS BLOOD SPECIMENOrdering Facility: [facility] Address: [address] [place], [place] [address] Performed By: #### 2 4344-4 ####[facility] LABCLIA [id number] [place] [address] [place] Oxyhemoglobin (BldV) [Mass fraction] 62 % Normal 60-85 [facility] Comment on above: Order Comment: Speci men Type: VENOUS BLOOD SPECIMENOrdering Facility: [facility] Address: [address] [place], [place] [address] Performed By: #### 2 4344-4 ####[facility] LABCLIA [id number] [place] [address] [place] pH (BldV) 7.36 [pH] Normal 7.32-7.42 [facility] Comment on above: Order Comment: Speci men Type: VENOUS BLOOD SPECIMENOrdering Facility: [facility] Address: [address] [place], [place] [address] Performed By: #### 2 4344-4 ####[facility] LABCLIA [id number] [place] [address] [place] pH adjusted to patient's actual temperature (BldV) 7.36 Normal 7.32-7.42 [facility] Comment on above: Order Comment: Speci men Type: VENOUS BLOOD SPECIMENOrdering Facility: [facility] Address: [address] [place], [place] [address] Performed By: #### 2 4344-4 ####[facility] LABCLIA [id number] [place] [address] [place] Potassium [Moles/Vol] 4.0 mmol/L Normal 3.5-5.0 [facility] Comment on above: Order Comment: Speci men Type: VENOUS BLOOD SPECIMENOrdering Facility: [facility] Address: [address] [place] [address] Performed By: #### 2 4344-4 ####[facility] LABCLIA [id number] [place] [address] [place] Sodium [Moles/Vol] 129 mmol/L Low 136-144 [facility] Comment on above: Order Comment: Speci men Type: VENOUS BLOOD SPECIMENOrdering Facility: [facility] Address: [address] [place] [address] Performed By: #### 2 4344-4 ####[facility] LABCLIA [id number] [place] [address] [place] BASE DEFICIT, VENOUS -5 mmol/L Low -2-0 [facility] Comment on above: Order Comment: Speci men Type: VENOUS BLOOD SPECIMENOrdering Facility: [facility] Address: [address] [place] [address] Performed By: #### 2 4344-4 ####[facility] LABCLIA [id number] [place] [address] [place] Body temperature 97.88 [degF] Normal [facility] Comment on above: Order Comment: Speci men Type: VENOUS BLOOD SPECIMENOrdering Facility: [facility] Address: [address] Performed By: #### 2 4344-4 ####[facility] LABCLIA [id number] [place] [address] [place] Calcium.ionized (Bld) [Mass/Vol] 1.08 mmol/L Normal 1.08-1.30 [facility] Comment on above: Order Comment: Speci men Type: VENOUS BLOOD SPECIMENOrdering Facility: [facility] Address: [address] [place] [address] Performed By: #### 2 4344-4 ####[facility] LABCLIA [id number] [place] [address] [place] Calcium.ionized adjusted to pH 7.4 (BldA) [Moles/Vol] 1.05 mmol/L Low 1.08-1.30 [facility] Comment on above: Order Comment: Speci men Type: VENOUS BLOOD SPECIMENOrdering Facility: [facility] Address: [address] [place] [address] Performed By: #### 2 4344-4 ####[facility] LABIA [id number] [place] [address] [place] Carboxyhemoglobin (BldV) [Mass fraction] 0.7 % Normal 0.0-2.0 [facility] Comment on above: Order Comment: Speci men Type: VENOUS BLOOD SPECIMENOrdering Facility: [facility] Address: [address] [place] [address] Result Comment: Carb oxyhemoglobin Reference Range for Smokers: 2.0-8.0% Performed By: #### 2 4344-4 ####[facility] LABIA [id number] [place] [address] [place] CO2 (BldV) [Partial pressure] 35 mm[Hg] Low 42-55 [facility] Comment on above: Order Comment: Speci men Type: VENOUS BLOOD SPECIMENOrdering Facility: [facility] Address: [address] [place] [address] Performed By: #### 2 4344-4 ####[facility] LABIA [id number] [place] [address] [place] CO2 [Moles/Vol] 20 mmol/L Low 25-29 [facility] Comment on above: Order Comment: Speci men Type: VENOUS BLOOD SPECIMENOrdering Facility: [facility] Address: [address] [place] [address] Performed By: #### 2 4344-4 ####[facility] LABIA [id number] [place] [address] [place] CO2 adjusted to patient's actual temperature (BldV) [Partial pressure] 34 mmHg Low 42-55 [facility] Comment on above: Order Comment: Speci men Type: VENOUS BLOOD SPECIMENOrdering Facility: [facility] Address: [address] [place], [place] [address] Performed By: #### 2 4344-4 ####[facility] LABCLIA [id number] [place] [address] [place] Glucose [Mass/Vol] 105 mg/dL Normal 60-105 [facility] Comment on above: Order Comment: Speci men Type: VENOUS BLOOD SPECIMENOrdering Facility: [facility] Address: [address] [place], [place] [address] Performed By: #### 2 4344-4 ####[facility] LABCLIA [id number] [place] [address] [place] HCO3 (Bld) [Moles/Vol] 19 mmol/L Low 24-28 [facility] Comment on above: Order Comment: Speci men Type: VENOUS BLOOD SPECIMENOrdering Facility: [facility] Address: [address] [place], [place] [id number] Performed By: #### 2 4344-4 ####[facility] LABCLIA [id number] [place] [address] [place] Hematocrit (Bld) [Volume fraction] 41.5 % Normal 39.0-51.0 [facility] Comment on above: Order Comment: Speci men Type: VENOUS BLOOD SPECIMENOrdering Facility: [facility] Address: [address] [place], [place] [address] Performed By: #### 2 4344-4 ####[facility] LABCLIA [id number] [place] [address] [place] Hemoglobin (Bld) [Mass/Vol] 13.5 g/dL Normal 13.0-17.0 [facility] Comment on above: Order Comment: Speci men Type: VENOUS BLOOD SPECIMENOrdering Facility: [facility] Address: [address] Performed By: #### 2 4344-4 ####[facility] LABCLIA [id number] [place] [address] [place] Lactate [Moles/Vol] 2.7 mmol/L High 0.5-2.2 [facility] Comment on above: Order Comment: Speci men Type: VENOUS BLOOD SPECIMENOrdering Facility: [facility] Address: [address] Performed By: #### 2 4344-4 ####[facility] LABIA [id number] [place] [address] [place] Methemoglobin (Bld) [Mass fraction] 1.0 % Normal 0.0-1.5 [facility] Comment on above: Order Comment: Speci men Type: VENOUS BLOOD SPECIMENOrdering Facility: [facility] Address: [address] Performed By: #### 2 4344-4 ####[facility] LABIA [id number] [place] [address] [place] O2 THERAPY RA=Room Air Normal [facility] Comment on above: Order Comment: Speci men Type: VENOUS BLOOD SPECIMENOrdering Facility: [facility] Address: [address] Performed By: #### 2 4344-4 ####[facility] LABCLIA [id number] [place] [address] [place] Oxygen (BldV) [Partial pressure] 32 mm[Hg] Low 35-45 [facility] Comment on above: Order Comment: Speci men Type: VENOUS BLOOD SPECIMENOrdering Facility: [facility] Address: [address] Performed By: #### 2 4344-4 ####[facility] LABCLIA [id number] [place] [address] [place] Oxygen adjusted to patient's actual temperature (BldV) [Partial pressure] 31 mmHg Low 35-45 [facility] Comment on above: Order Comment: Speci men Type: VENOUS BLOOD SPECIMENOrdering Facility: [facility] Address: [address] [place], [place] [address] Performed By: #### 2 4344-4 ####[facility] LABCLIA [id number] [place] [address] [place] Oxygen saturation in Venous blood 50 % Low 60-85 [facility] Comment on above: Order Comment: Speci men Type: VENOUS BLOOD SPECIMENOrdering Facility: [facility] Address: [address] [place] [address] Performed By: #### 2 4344-4 ####[facility] LABCLIA [id number] [place] [address] [place] Oxyhemoglobin (BldV) [Mass fraction] 49 % Low 60-85 [facility] Comment on above: Order Comment: Speci men Type: VENOUS BLOOD SPECIMENOrdering Facility: [facility] Address: [address] [place], [place] [address] Performed By: #### 2 4344-4 ####[facility] LABCLIA [id number] [place] [address] [place] pH (BldV) 7.35 [pH] Normal 7.32-7.42 [facility] Comment on above: Order Comment: Speci men Type: VENOUS BLOOD SPECIMENOrdering Facility: [facility] Address: [address] [place], [place] [address] Performed By: #### 2 4344-4 ####[facility] LABCLIA [id number] [place] [address] [place] pH adjusted to patient's actual temperature (BldV) 7.36 Normal 7.32-7.42 [facility] Comment on above: Order Comment: Speci men Type: VENOUS BLOOD SPECIMENOrdering Facility: [facility] Address: [address] [place] [address] Performed By: #### 2 4344-4 ####[facility] LABCLIA [id number] [place] [address] [place] Potassium [Moles/Vol] 4.7 mmol/L Normal 3.5-5.0 [facility] Comment on above: Order Comment: Speci men Type: VENOUS BLOOD SPECIMENOrdering Facility: [facility] Address: [address] [place] [address] Performed By: #### 2 4344-4 ####[facility] LABCLIA [id number] [place] [address] [place] Sodium [Moles/Vol] 129 mmol/L Low 136-144 [facility] Comment on above: Order Comment: Speci men Type: VENOUS BLOOD SPECIMENOrdering Facility: [facility] Address: [address] [place] [address] Performed By: #### 2 4344-4 ####[facility] LABCLIA [id number] [place] [address] [place] HIGH SENSITIVITY TROPONIN To n 01-24-2023 HIGH SENSITIVITY ALANNA 14 ng/L High <12 [facility] Comment on above: Order Comment: Speci men Type: BLOOD SPECIMENOrdering Facility: [facility] Address: [address] [place] [address] Result Comment: When assessing risk for acute coronary syndromes: In patients undergoing blood draw greater than or equal to 2 hours from symptom onset, with history of very low to moderate risk and non-ischemic ECG, an initial hs-Troponin T less than 12 ng/L AND a 1 hour delta hs-Troponin T less than 3 ng/L should be considered very low risk for 30 day MACE. Performed By: #### 1 988-5, 44657-4, 2777-1, HSTNT, 92445-6 ####[facility] LABCLIA [id number] [place] [address] [place] HISTORY PHYSICALon HISTORY PHYSICAL Normal [facility] HbA1c (Bld)on 01-24-2023 Average glucose Estimated from glycated hemoglobin (Bld) [Mass/Vol] 140 mg/dL Normal [facility] Comment on above: Order Comment: Speci men Type: BLOOD SPECIMENOrdering Facility: [facility] Address: [address] [place] [address] Result Comment: eAG: (Estimated average glucose) is a calculated value from HgbA1c and is accounting representative of the average blood glucose level in the last 2-3 month period. Performed By: #### 4 537-7, 19736-3 ####[facility] LABIA [id number] [address] HbA1c (Bld) [Mass fraction] 6.5 % High 4.3-5.6 [facility] Comment on above: Order Comment: Speci men Type: BLOOD SPECIMENOrdering Facility: [facility] Address: [address] [place] [address] Result Comment: [place] Diabetes Association guidelines indicate that patients with HgbA1c in the range 5.7-6.4% are at increased risk for development of diabetes, and intervention by lifestyle modification may be beneficial. HgbA1c greater or equal to 6.5% is considered diagnostic of diabetes. Performed By: #### 4 537-7, 30466-8 ####[facility] LABCLIA [id number] [place] [id number] [place] LACTATE/LACTIC ACIDon 2022 Lactate [Moles/Vol] 1.8 mmol/L Normal 0.4-2.[address] [facility] Comment on above: Performed By: #### B CID2 #### [facility] [address] [place] [address] Dr. Good Castellano Magnesium SerPl-mCncon 01-24 Magnesium [Mass/Vol] 2.4 mg/dL High 1.7-2.3 [facility] Comment on above: Order Comment: Speci men Type: BLOOD SPECIMENOrdering Facility: [facility] Address: [address] [place] [address] Performed By: #### 1 9123-9, 2777-1, 41997-3 ####[facility] LABCLIA [id number] [place] [address] [place] Magnesium [Mass/Vol] 2.5 mg/dL High 1.7-2.3 [facility] Comment on above: Order Comment: Speci men Type: BLOOD SPECIMENOrdering Facility: [facility] Address: [address] [place] [address] Performed By: #### 1 988-5, 45308-5, 2777-1, HSTNT, 87118-5 ####[facility] LABIA [id number] [place] [address] [place] NT[facility]BNP [facility] Natriuretic peptide.B prohormone N-Terminal [Mass/Vol] 575 pg/mL High <125 [facility] Comment on above: Order Comment: Speci men Type: BLOOD SPECIMENOrdering Facility: [facility] Address: [address] [place] [address] Performed By: #### 1 988-5, 31493-0, 2777-1, HSTNT, ####[facility] LABIA [id number] [place] [id number] [place] OPERATIVE NOon 01-24-2023 OPERATIVE NO Normal [facility] PT panel Coag (PPP)on 2022 INR Coag (PPP) [Relative time] 1.1 {INR} Normal 0.9-1.3 [facility] Comment on above: Order Comment: Speci men Type: BLOOD SPECIMENOrdering Facility: [facility] Address: [address] [place] [address] Result Comment: Lisandra min K Antagonist (VKA) Therapeutic Range: INR 2 to 3 (Target INR of 2.5)Note: For patients treated with VKA drugs, such as warfarin, the [place] [employer] 2012 Guideline recommends a therapeutic INR range of 2 to 3 (target INR of 2.5). This recommendation includes high-risk patients with antiphospholipid syndrome with previous arterial or venous thromboembolism, current-generation mechanical or bioprosthetic aortic heart valve replacement.Note: Patients with mechanical aortic valve replacement and additional risk factors for thromboembolic events (atrial fibrillation, previous thromboembolism, LV dysfunction, hypercoagulable conditions) or an older generation mechanical AVR (i.e., ball in-Cage) or any mechanical MVR should have a INR therapeutic range of 2.5 to 3.5 (target INR of 3).Rico GH, et al. Chest 2012, 141:7S-47SNishimura RA, et al. [facility] 2017, 70: 252-289 Performed By: #### 3 4528-0, 3255-7 ####[facility] LABIA [id number] [place] [address] [place] PT Coag (PPP) [Time] 11.0 s Normal 9.7-13.0 [facility] Comment on above: Order Comment: Speci men Type: BLOOD SPECIMENOrdering Facility: [facility] Address: [address] [place] [address] Performed By: #### 3 4528-0, 3255-7 ####[facility] LABIA [id number] [place] [address] [place] Phosphate SerPl-mCncon 01-24 Phosphate [Mass/Vol] 8.1 mg/dL High 2.7-4.8 [facility] Comment on above: Order Comment: Speci men Type: BLOOD SPECIMENOrdering Facility: [facility] Address: [address] [place] [address] Performed By: #### 1 9123-9, 2777-1, 73612-7 ####[facility] LABCLIA [id number] [place] [address] [place] Phosphate [Mass/Vol] 6.3 mg/dL High 2.7-4.8 [facility] Comment on above: Order Comment: Speci men Type: BLOOD SPECIMENOrdering Facility: [facility] Address: [address] [place] [address] Performed By: #### 1 988-5, 77723-7, 2777-1, HSTNT, 74767-8 ####[facility] LABCLIA [id number] [place] [address] [place] Procalcitonin SerPl-mCncon 0 01-24-2023 Procalcitonin [Mass/Vol] 9.07 ng/mL High <0.09 [facility] Comment on above: Order Comment: Speci men Type: BLOOD SPECIMENOrdering Facility: [facility] Address: [address] [place] [address] Result Comment: For a guided interpretation of test results, please visit the Change in Procalcitonin Calculator, [email or web address]. Performed By: #### 2 4323-8, 23753-9 ####[facility] LABCLIA [id number] [place] [address] [place] SARS-CoV-2 RNA Resp Ql DREA+p robeon 01-24-2023 SARS-CoV-2 (COVID-19) RNA DREA+probe Ql (Resp) COVID 19 RESULT: Not detected The method used is RT-PCR or an equivalent NAAT method. Reference Range(the expected result in uninfected individuals): Not detected Normal [facility] Comment on above: Performed By: #### 9 4500-6 ####[facility] LABCLIA [id number] [place] [address] [place] STAPH AUREUS PCRon S. aureus and MRSA panel DREA+probe (Nose) Abnormal Negative [facility] Comment on above: Order Comment: Speci men Type: SWAB OF INTERNAL NOSEOrdering Facility: [facility] Address: [address] [place] [address] Result Comment: Posi tive for Staphylococcus aureus by PCR.Negative for MRSA by PCR Performed By: #### S APCR ####[facility] LABCLIA [id number] [address] [place] TYPE + SCREENon 01-24-2023 ABO A Normal [facility] Comment on above: Order Comment: Speci men Type: BLOOD SPECIMENOrdering Facility: [facility] Address: [address] [place] [address] Performed By: #### T SCR ####[facility] BLO[facility] BANKCLIA [id number] [address] HISTORICAL AB SCR STATUS Negative Normal [facility] Comment on above: Order Comment: Speci men Type: BLOOD SPECIMENOrdering Facility: [facility] Address: [address] [place] [address] Performed By: #### T SCR ####[facility] BLOOD BANKCLIA [id number] [address] [place] Rh Nom (Bld) Positive Normal [facility] Comment on above: Order Comment: Speci men Type: BLOOD SPECIMENOrdering Facility: [facility] Address: [address] [place] [address] Performed By: #### T SCR ####[facility] BLOOD BANKCLIA [id number] [address] [facility] TYPE AND SCREEN EXPIRATION 01/27/2023 23:59 Normal [facility] Comment on above: Order Comment: Speci men Type: BLOOD SPECIMENOrdering Facility: [facility] Address: [address] [place] [address] Performed By: #### T SCR ####[facility] B[facility] BANKCLIA [id number] [place] [address] [place] URINE MICROSCOPIC ONLYon BACTERIA TRACE Abnormal NONE SEEN The [facility] Comment on above: Performed By: #### U MICRO, ERUR #### [facility] [address] [place] [address] Dr. Good Castellano Bacteria identified Cx Nom (U) NOT INDICATED Normal [facility] Comment on above: Performed By: #### U MICRO, ERUR #### [facility] [address] [place] [address] Dr. Good Castellano CAST SEEN Abnormal NONE SEEN The [facility] Comment on above: Performed By: #### U MICRO, ERUR #### [facility] [address] [place] [address] Dr. Good Castellano Crystals LM Nom (Urine sed) NONE SEEN Normal NONE SEEN The [facility] Comment on above: Performed By: #### U MICRO, ERUR #### [facility] [address] [place] [address] Dr. Good Castellano Epithelial cells LM Ql (Urine sed) RARE Normal NONE SEEN /RARE [facility] Comment on above: Performed By: #### U MICRO, ERUR #### [facility] [address] [place] [address] Dr. Good Castellano FINE GRANULAR CAST FEW Normal The [facility] Comment on above: Performed By: #### U MICRO, ERUR #### [facility] [address] [place] [address] Dr. Good Castellano MUCOUS NONE SEEN Normal NONE SEEN The [facility] Comment on above: Performed By: #### U MICRO, ERUR #### [facility] [address] [place] [address] Dr. Good Castellano RBC NONE SEEN Abnormal 0-2 [facility] Comment on above: Performed By: #### U MICRO, ERUR #### [facility] [address] [place] [address] Dr. Good Castellano WBC 0-2 Abnormal NONE SEEN [facility] Comment on above: Performed By: #### U MICRO, ERUR #### [facility] [address] [place] [address] Dr. Good Castellano Urinalysis complete panel (U )on 01-24-2023 Bilirubin Ql (U) 1+ Abnormal Negative [facility] Comment on above: Order Comment: Speci men Type: URINE SPECIMENOrdering Facility: [facility] Address: [address] [place] [address] Result Comment: Sugg est correlation with clinical findings and serum bilirubin if clinically indicated. Performed By: #### 2 4356-8 ####[facility] LABCLIA [id number] [place] [address] [place] Clarity (Unsp spec) Cloudy Abnormal Clear [facility] Comment on above: Order Comment: Speci men Type: URINE SPECIMENOrdering Facility: [facility] Address: [address] [place] [address] Performed By: #### 2 4356-8 ####[facility] LABCLIA [id number] [place] [address] [place] Color (U) Yellow Normal Yellow [facility] Comment on above: Order Comment: Speci men Type: URINE SPECIMENOrdering Facility: [facility] Address: [address] [place] [address] Performed By: #### 2 4356-8 ####[facility] LABCLIA [id number] [place] [address] [place] Epithelial cells LM.HPF (Urine sed) [#/Area] Few Normal [facility] Comment on above: Order Comment: Speci men Type: URINE SPECIMENOrdering Facility: [facility] Address: [address] [place] [address] Performed By: #### 2 4356-8 ####[facility] LABCLIA [id number] [place] [address] [place] Glucose Test strip (U) [Mass/Vol] Negative Normal Trace, Negative [facility] Comment on above: Order Comment: Speci men Type: URINE SPECIMENOrdering Facility: [facility] Address: [address] [place] [address] Performed By: #### 2 4356-8 ####[facility] LABCLIA [id number] [place] [address] [place] Hemoglobin Ql (U) 2+ Abnormal Negative, Trace [facility] Comment on above: Order Comment: Speci men Type: URINE SPECIMENOrdering Facility: [facility] Address: [address] [place] [address] Performed By: #### 2 4356-8 ####[facility] LABCLIA [id number] [place] [address] [place] Ketones Ql (U) Negative Normal Trace, Negative [facility] Comment on above: Order Comment: Speci men Type: URINE SPECIMENOrdering Facility: [facility] Address: [address] [place] [address] Performed By: #### 2 4356-8 ####[facility] LABCLIA [id number] [place] [address] [place] Leukocyte esterase Test strip Ql (U) Negative Normal Negative, 25 Kiah/uL [facility] Comment on above: Order Comment: Speci men Type: URINE SPECIMENOrdering Facility: [facility] Address: [address] [place] [address] Performed By: #### 2 4356-8 ####[facility] LABCLIA [id number] [place] [address] [place] Nitrite Ql (U) Negative Normal Negative [facility] Comment on above: Order Comment: Speci men Type: URINE SPECIMENOrdering Facility: [facility] Address: [address] [place] [address] Performed By: #### 2 4356-8 ####[facility] LABCLIA [id number] [place] [address] [place] pH (U) 6.0 [pH] Normal 5.0-8.0 [facility] Comment on above: Order Comment: Speci men Type: URINE SPECIMENOrdering Facility: [facility] Address: [address] [place] [address] Performed By: #### 2 4356-8 ####[facility] LABIA [id number] [place] [address] [place] [facility] Protein (U) [Mass/Vol] 1+ Abnormal Trace, Negative [facility] Comment on above: Order Comment: Speci men Type: URINE SPECIMENOrdering Facility: [facility] Address: [address] [place] [address] Performed By: #### 2 4356-8 ####[facility] [id number] [place] [address] [place] RBC LM.HPF (Urine sed) [#/Area] 3-5 /HPF Abnormal 0-3 /HPF [facility] Comment on above: Order Comment: Speci men Type: URINE SPECIMENOrdering Facility: [facility] Address: [address] [place] [address] Performed By: #### 2 4356-8 ####[facility] [id number] [place] [address] [place] Specific gravity (U) [Rel density] 1.045 High 1.005-1.030 [facility] Comment on above: Order Comment: Speci men Type: URINE SPECIMENOrdering Facility: [facility] Address: [address] [place], [place] [address] Performed By: #### 2 4356-8 ####[facility] LABIA [id number] [place] [address] [place] Urobilinogen Ql (U) 2+ Abnormal Negative [facility] Comment on above: Order Comment: Speci men Type: URINE SPECIMENOrdering Facility: [facility] Address: [address] [place] [address] Performed By: #### 2 4356-8 ####[facility] LABIA [id number] [place] [address] [place] WBC LM.HPF (Urine sed) [#/Area] 0-5 /HPF Normal 0-5 /HPF [facility] Comment on above: Order Comment: Speci men Type: URINE SPECIMENOrdering Facility: [facility] Address: [address] [place] [id number] Performed By: #### 2 4356-8 ####[facility] LABCLIA [id number] [address] [place] XR CHEST 1V FRONTAL PORTon 0 01-24-2023 XR CHEST 1V FRONTAL PORT Normal [facility] XR FEMUR 2V AP/LAT LTon 01-12 XR FEMUR 2V AP/LAT LT Normal [facility] XR HIP 3V PELV+ AP/LAT LTon 01-24-2023 XR HIP 3V PELV+ AP/LAT LT Normal [facility] BLOOD CULTURE ID PANELon A. baumannii Not detected Normal NOT DETECTED [facility] Comment on above: Performed By: #### B CID2 #### [facility] [address] [place] [address] Dr. Good Castellano Bacteriodes fragilis Not detected Normal NOT DETECTED [facility] Comment on above: Performed By: #### B CID2 #### [facility] [address] [place] [address] [address] Good SHELBY CONTROLS PASSED Normal [facility] Comment on above: Performed By: #### B CID2 #### [facility] [address] [place] [address] [address] Good SALINASDBTHD BLOOD CULTURE BOTTLE INFORMATION Normal [facility] Comment on above: Performed By: #### B CID2 #### [facility] [address] [place] [address] Dr. Good SALINASDHD1 ANTIMICROBIAL RESISTANCE GENES Normal [facility] Comment on above: Performed By: #### B CID2 #### [facility] [address] [place] [address] Dr. Good SALINASDHD2 SEE BELOW Normal [facility] Comment on above: Result Comment: Note : Antimicrobial resitance can occur via multiple mechanisms. A Not Detected result for the [employer] antomicrobial resistance gene assays does not indicate antimicrobial susceptibility. Subculturing is required for species identification and susceptibility testing of isolates. Performed By: #### B CID2 #### [facility] [address] [place] [address] Dr. Good Castellano BCIDHD3 Positive Normal [facility] Comment on above: Performed By: #### B CID2 #### [facility] [address] [place] [address] Dr. Good Castellano BCIDHD4 Negative Normal [facility] Comment on above: Performed By: #### B CID2 #### [facility] [address] [place] [address] Dr. Good Castellano BCIDHD5 YEAST Normal [facility] Comment on above: Performed By: #### B CID2 #### [facility] [address] [place] [address] Dr. Good Castellano Bottle Set: Set 1 Normal [facility] Comment on above: Performed By: #### B CID2 #### [facility] [address] [place] [address] Dr. Good Castellano Bottle: Aerobic Normal [facility] Comment on above: Performed By: #### B CID2 #### [facility] [address] [place] [address] Dr. Good Castellano C. neoformans/gattii Not detected Normal NOT DETECTED The [facility] Comment on above: Performed By: #### B CID2 #### [facility] [address] [place] [address] Dr. Good Castellano Olga albicans Not detected Normal NOT DETECTED The [facility] Comment on above: Performed By: #### B CID2 #### [facility] [address] [place] [address] Dr. Good Castellano Olga auris Not detected Normal NOT DETECTED The [facility] Comment on above: Performed By: #### B CID2 #### [facility] [address] [place] [address] Dr. Good Castellano Olga glabrata Not detected Normal NOT DETECTED The [facility] Comment on above: Performed By: #### B CID2 #### [facility] [address] [place] [address] Dr. Good Castellano Olga Krusei Not detected Normal NOT DETECTED The [facility] Comment on above: Performed By: #### B CID2 #### [facility] [address] [place] [address] Dr. Good Castellano Olga Parapsilosis Not detected Normal NOT DETECTED [facility] Comment on above: Performed By: #### B CID2 #### [facility] [address] [place] [address] Dr. Good Castellano Olga Tropicalis Not detected Normal NOT DETECTED [facility] Comment on above: Performed By: #### B CID2 #### [facility] [address] [place] [address] Dr. Good Castellano CTX-M Resistant Gene Not Applicable Normal NOT DETECTE [facility] Comment on above: Performed By: #### B CID2 #### [facility] [address] [place] [address] Dr. Good Castellano E. Cloacae complex Not detected Normal NOT DETECTED [facility] Comment on above: Performed By: #### B CID2 #### [facility] [address] [place] [address] Dr. Good Castellano E. faecalis Not detected Normal NOT DETECTED The [facility] Comment on above: Performed By: #### B CID2 #### [facility] [address] [place] [address] Dr. Good Castellano E. faecium Not detected Normal NOT DETECTED The [facility] Comment on above: Performed By: #### B CID2 #### [facility] [address] [place] [address] Dr. Good Castellano Enterobacteriaceae Not detected Normal NOT DETECTED [facility] Comment on above: Performed By: #### B CID2 #### [facility] [address] [place] [address] Dr. Good Castellano Escherichia coli Not detected Normal NOT DETECTED [facility] Comment on above: Performed By: #### B CID2 #### [facility] [address] [place] [address] Dr. Good Castellano H. influenzae Not detected Normal NOT DETECTED The [facility] Comment on above: Performed By: #### B CID2 #### [facility] [address] [place] [address] Dr. Good Castellano IMP Resistant Gene Not Applicable Normal NOT DETECTED [facility] Comment on above: Performed By: #### B CID2 #### [facility] [address] [place] [address] Dr. Good Castellano K. oxytoca Not detected Normal NOT DETECTED The [facility] Comment on above: Performed By: #### B CID2 #### [facility] [address] [place] [address] Dr. Good Castellano K. pneumoniae Not detected Normal NOT DETECTED The [facility] Comment on above: Performed By: #### B CID2 #### [facility] [address] [place] [address] Dr. Good Castellano Klebsiella aerogenes Not detected Normal NOT DETECTED [facility] Comment on above: Performed By: #### B CID2 #### [facility] [address] [place] [address] Dr. Good Castellano KPC Resistant Gene Not Applicable Normal NOT DETECTED [facility] Comment on above: Performed By: #### B CID2 #### [facility] [address] [place] [address] Dr. Good Castellano List. monocytogenes Not detected Normal NOT DETECTED [facility] Comment on above: Performed By: #### B CID2 #### [facility] [address] [place] [address] Dr. Good Castellano Mcr-1 Resistant Gene Not Applicable Normal NOT DETECTE D [facility] Comment on above: Performed By: #### B CID2 #### [facility] [address] [place] [address] Dr. Good Castellano mecA/C Not Applicable Normal NOT DETECTED The [facility] Comment on above: Performed By: #### B CID2 #### [facility] [address] [place] [address] Dr. Good Castellano mecA/C MREJ Not Applicable Normal NOT DETECTED The [facility] Comment on above: Performed By: #### B CID2 #### [facility] [address] [place] [address] Dr. Good Castellano N. meningitidis Not detected Normal NOT DETECTED The [facility] Comment on above: Performed By: #### B CID2 #### [facility] [address] [place] [address] Dr. Good Castellano NDM Resistant Gene Not Applicable Normal NOT DETECTED [facility] Comment on above: Performed By: #### B CID2 #### [facility] [address] [place] [address] Dr. Good Castellano Oxa-48-like Not Applicable Normal NOT DETECTED The [facility] Comment on above: Performed By: #### B CID2 #### [facility] [address] [place] [address] Dr. Good Castellano Proteus Not detected Normal NOT DETECTED The [facility] Comment on above: Performed By: #### B CID2 #### [facility] [address] [place] [address] Dr. Good Castellano Pseud. aeruginosa Not detected Normal NOT DETECTED [facility] Comment on above: Performed By: #### B CID2 #### [facility] [address] [place] [address] Dr. Good Castellano S. maltophilia Not detected Normal NOT DETECTED The [facility] Comment on above: Performed By: #### B CID2 #### [facility] [address] [place] [address] Dr. Good Castellano Salmonella Not detected Normal NOT DETECTED The [facility] Comment on above: Performed By: #### B CID2 #### [facility] [address] [place] [address] Dr. Good Castellano Seratia marcescens Not detected Normal NOT DETECTED [facility] Comment on above: Performed By: #### B CID2 #### [facility] [address] [place] [address] Dr. Good Castellano Site: Rt Ac Normal [facility] Comment on above: Performed By: #### B CID2 #### [facility] [address] [place] [address] Dr. Good Castellano Staph. aureus Not detected Normal NOT DETECTED The [facility] Comment on above: Performed By: #### B CID2 #### [facility] [address] [place] [address] Dr. Good Castellano Staph. epidermidis Not detected Normal NOT DETECTED [facility] Comment on above: Performed By: #### B CID2 #### [facility] [address] [place] [address] Dr. Good Castellano Staph. lugdunensis Not detected Normal NOT DETECTED [facility] Comment on above: Performed By: #### B CID2 #### [facility] [address] [place] [address] Dr. Good Castellano Staphylococcus Not detected Normal NOT DETECTED The [facility] Comment on above: Performed By: #### B CID2 #### [facility] [address] [place] [address] Dr. Good Castellano Strep. agalactiae Not detected Normal NOT DETECTED [facility] Comment on above: Performed By: #### B CID2 #### [facility] [address] [place] [address] Dr. Good Castellano Strep. pneumoniae Not detected Normal NOT DETECTED [facility] Comment on above: Performed By: #### B CID2 #### [facility] [address] [place] [address] Dr. Good Castellano Strep. pyogenes Detected Critically abnormal NOT DETECTED [facility] Comment on above: Performed By: #### B CID2 #### [facility] [address] [place] [address] Dr. Good Castellano Streptococcus Detected Critically abnormal NOT DETECTED [facility] Comment on above: Performed By: #### B CID2 #### [facility] [address] [place] [address] Dr. Good Castellano Salvatore/B Resist. Gene Not Applicable Normal NOT DETECTED [facility] Comment on above: Performed By: #### B CID2 #### [facility] [address] [place] [address] Dr. Good Castellano VIM Resistant Gene Not Applicable Normal NOT DETECTED [facility] Comment on above: Performed By: #### B CID2 #### [facility] [address] [place] [address] Dr. Good Castellano CBC W MANUAL DIFFon 01-24-20 23 ATYPICAL LYMPH # Normal [facility] Comment on above: Performed By: #### C BCMAN #### [facility] [address] [place] [address] Dr. Good Castellano ATYPICAL LYMPH % Normal [facility] Comment on above: Performed By: #### C BCMAN #### [facility] [address] [place] [address] Dr. Good Castellano BAND # 1.7 103/ul Critically high 0.0-0.3 [facility] Comment on above: Performed By: #### C BCMAN #### [facility] [address] [place] [address] Dr. Good Castellano BAND % 5 % Normal 0-5 [facility] Comment on above: Performed By: #### C BCMAN #### [facility] [address] [place] [address] Dr. Good Castellano BASOM # 0.00 103/ul Normal 0.00-0.10 [facility] Comment on above: Performed By: #### C BCMAN #### [facility] [address] [place] [address] Dr. Good Castellano BASOM % 0.0 % Critically low 0.2-2.0 [facility] Comment on above: Performed By: #### C BCMAN #### [facility] [address] [place] [address] Dr. Good Castellano BLAST # Normal [facility] Comment on above: Performed By: #### C BCMAN #### [facility] [address] [place] [address] Dr. Good Castellano BLAST % Normal [facility] Comment on above: Performed By: #### C BCMAN #### [facility] [address] [place] [address] Dr. Good Castellano CORRECTED WBC Normal 4.0-11.0 [facility] Comment on above: Performed By: #### C FREDRICK #### [facility] [address] [place] [address] Dr. Good Castellano EOS # 0.00 103/ul Normal 0.00-0.70 [facility] Comment on above: Performed By: #### C FREDRICK #### [facility] [address] [address] [address] Good Castellano EOS% 0.0 % Critically low 0.9-7.0 [facility] Comment on above: Performed By: #### C FREDRICK #### [facility] [address] [place] [address] Dr. Good Castellano HCT 38.1 % Critically low 42.0-54.0 [facility] Comment on above: Performed By: #### C FREDRICK #### [facility] [address] [place] [address] Dr. Good Castellano HGB 13.2 g/dl Critically low 14.0-18.0 [facility] Comment on above: Performed By: #### C FREDRICK #### [facility] [address] [place] [address] Dr. Good Castellano LYMPHM # 0.33 103/ul Critically low 1.20-3.80 [facility] Comment on above: Performed By: #### C FREDRICK #### [facility] [address] [place] [address] Dr. Good Castellano LYMPHM% 1.0 % Critically low 20.5-60.0 [facility] Comment on above: Performed By: #### C BCJAVIER #### [facility] [address] [place] [address] Dr. Good Castellano MCH 25.8 pg Critically low 25.9-34.0 [facility] Comment on above: Performed By: #### C BCJAVIER #### [facility] [address] [place] [address] Dr. Good Castellano MCHC 34.6 g/dl Normal 29.9-35.2 [facility] Comment on above: Performed By: #### C FREDRICK #### [facility] [address] [address] [address] Good Castellano MCV 74.6 fL Critically low 80.0-94.0 [facility] Comment on above: Performed By: #### C FREDRICK #### [facility] [address] [place] [address] Dr. Good Castellano METAMYELOCYTE # Normal [facility] Comment on above: Performed By: #### C FREDRICK #### [facility] [address] [place] [address] Dr. Good Castellano METAMYELOCYTE % Normal [facility] Comment on above: Performed By: #### C FREDRICK #### [facility] [address] [place] [address] Dr. Good Castellano MONOM# 0.00 103/ul Critically low 0.30-0.80 [facility] Comment on above: Performed By: #### C FREDRICK #### [facility] [address] [place] [address] Dr. Good Castellano MONOM% 0.0 % Critically low 1.7-12.0 [facility] Comment on above: Performed By: #### C FREDRICK #### [facility] [address] [place] [address] Dr. Good Castellano MPV 12.8 fL Normal 9.5-13.5 [facility] Comment on above: Performed By: #### C FREDRICK #### [facility] [address] [place] [address] Dr. Good Castellano MYELOCYTE # Normal [facility] Comment on above: Performed By: #### C FREDRICK #### [facility] [address] [place] [address] Dr. Good Castellano MYELOCYTE % Normal [facility] Comment on above: Performed By: #### C FREDRICK #### [facility] [address] [place] [address] Dr. Good Castellano NRBC Normal [facility] Comment on above: Performed By: #### C FREDRICK #### [facility] [address] [address] [address] Good Castellano PLT 161 103/ul Normal 150-450 [facility] Comment on above: Performed By: #### C FREDRICK #### [facility] [address] [address] [address] Good Castellano RBC 5.11 106/ul Normal 4.70-6.10 [facility] Comment on above: Performed By: #### C FREDRICK #### [facility] [address] [address] [address] Good Castellano RDW 14.6 % Normal 11.0-15.0 [facility] Comment on above: Performed By: #### C FREDRICK #### [facility] [address] [place] [address] Dr. Good Castellano SEG # 31.40 103/ul Critically high 1.40-6.50 The [facility] Comment on above: Performed By: #### C FREDRICK #### [facility] [address] [address] [address] Good Castellano SEG % 94.0 % Critically high 43.0-75.0 [facility] Comment on above: Performed By: #### C FREDRICK #### [facility] [address] [place] [address] Dr. Good Castellano TOXIC GRANULATION SLIGHT Normal The [facility] Comment on above: Performed By: #### C FREDRICK #### [facility] [address] [address] [address] Good Castellano WBC 33.4 103/ul Critically high 4.0-11.0 [facility] Comment on above: Performed By: #### C FREDRICK #### [facility] [address] [address] [address] Good Castellano CPKon 01-23-2023 CK [Catalytic activity/Vol] 69 U/L Normal 39-308 [facility] Comment on above: Performed By: #### H STROPN, CRP, CK, CMP #### [facility] [address] [place] [address] Dr. Good Castellano CRPon 01-23-2023 CRP [Mass/Vol] mg/L Normal <=1.0 The [facility] Comment on above: Performed By: #### B CID2 #### [facility] [address] [address] [address] Good Castellano CTA ABD ASHISH WWO CON LE RUNO FFon 01-23-2023 CTA ABD ASHISH WWO CON LE RUNOFF EXAM: CTA ABD ASHISH WWO CON LE RUNOFF TECHNIQUE: Axial CT images were obtained of the abdomen and pelvis and lower extremities with intravenous contrast using CT angiogram protocol including slab maximum intensity projection images and 3-D volume renderings.. Sagittal and coronal reformatted images were also obtained. Dose reduction techniques were achieved by using automated exposure control and/or adjustment of mA and/or kV according to patient size and/or use of iterative reconstruction technique. HISTORY: PAIN IN LEG, UNSPECIFIED COMPARISON: None. __ FINDINGS: Lower chest: The lower lungs are clear. Liver: The liver is enlarged and demonstrates diffusely decreased attenuation suggesting hepatic steatosis. Gallbladder: The gallbladder is unremarkable. There is no intra or extrahepatic biliary dilatation. Pancreas: The pancreas is homogeneous without evidence for mass lesion or inflammation. Spleen: The spleen is unremarkable without evidence for mass lesion. Adrenal glands: The adrenal glands are unremarkable Kidneys and bladder: The kidneys are unremarkable with no evidence for mass lesion, hydronephrosis or inflammation. The ureters demonstrate normal caliber. The urinary bladder is unremarkable. GI Tract: Stomach is unremarkable. Visualized small bowel is unremarkable without evidence for obstruction or active inflammation. The appendix is unremarkable.Diverti cula are seen of the colon, more significant involving the distal colon. The visualized large bowel is otherwise unremarkable. Reproductive: Unremarkable Lymph nodes: No retroperitoneal or abdominal lymphadenopathy. Vascular: The aorta is widely patent and normal caliber. The celiac, superior mesenteric, renal and inferior mesenteric arteries are widely patent and unremarkable. Bilateral iliac arteries are widely patent and unremarkable. The right common femoral artery, superficial femoral artery and popliteal arteries are widely patent with three-vessel runoff to the right foot. The left common femoral artery, superficial femoral artery and popliteal arteries are widely patent. There is widely patent three-vessel runoff to the left foot. Peritoneum: No free intraperitoneal air or fluid. No acute inflammation. Abdominal wall and skeletal: Severe subcutaneous edema of the left thigh, most significant anteriorly. Edema and swelling of the left thigh anterior muscular compartment with foci of gas and loss of fascial planes. Prior left hip arthroplasty. Patchy sclerotic metastatic disease, most significant involving the pelvis. Lipoma of the right thigh abductor musculature. IMPRESSION: Edema, swelling and foci of gas involving the left thigh intramuscular compartment, most significant along the vastus lateralis muscle. Findings are suspicious for necrotizing fasciitis. No acute vascular abnormality of the lower extremities. Electronically authenticated by: MICHELLE STROUD Date: 2023-01-23 21:57 Normal [facility] CULTURE BLOODon 01-23-2023 Microscopic examination of blood, culture Culture Observations: Aerobic bottle positive only. BCID: Streptococcus Pyogenes (Group A) Culture Observations: Please refer to accession #[id number] for susceptibilities. Culture Observations: NO GROWTH IN ANAEROBIC BOTTLE AT 5 DAYS. Isolate 1 Streptococcus pyogenes Growth of Normal [facility] Comment on above: Performed By: #### B LDCX2 #### [facility] [address] [place] [address] Dr. Good Castellano [facility]on 01-12 SARS-CoV-2 (COVID-19) RNA DREA+probe Ql (Unsp spec) Not detected Normal NOT DETECTED [facility] Comment on above: Result Comment: When diagnostic testing is negative, the possibility of a false negative should be considered in the context of a patient's recent exposures and the presence of clinical signs and symptoms consistent with SARS-CoV-2. This test is not yet approved or cleared by the [place] FDA. When there are no FDA-approved or cleared tests available, and other criteria are met, FDA can make tests available under an emergency access mechanism called an Emergency Use Authorization (EUA). The EUA for this test is supported by the [place] Expert of Health and Human Service's declaration that circumstances exist to justify the emergency use of in vitro diagnostics for the detection and/or diagnosis of the virus that causes COVID-19. This EUA will remain in effect for the duration of the COVID-19 declaration justifying emergency of IVDs, unless it is terminated or revoked by the FDA (after which the test may no longer be used). Performed By: #### B CID2 #### [facility] [address] [place] [address] Dr. Good Castellano LACTATE/LACTIC ACIDon 2022 Lactate [Moles/Vol] 2.6 mmol/L Critically high 0.4-2.0 [facility] Comment on above: Performed By: #### L ACT #### [facility] [address] [place] [address] Dr. Good Castellano PH VENOUS BLOODon 01-23-2023 PCO2 VENOUS 30.0 mmHg Critically low 40.0-52.0 [facility] Comment on above: Performed By: #### B CID2 #### [facility] [address] [place] [address] Dr. Good Castellano pH VENOUS 7.379 Normal 7.330-7.430 [facility] Comment on above: Performed By: #### B CID2 #### [facility] [address] [place] [address] Dr. Good Castellano PROF 14(COMP METB)on 023 Albumin [Mass/Vol] 1.4 g/dL Critically low 3.4-5.0 [facility] Comment on above: Performed By: #### H STROPN, CRP, CK, CMP #### [facility] [address] [place] [address] Dr. Good Castellano Albumin/Globulin [Mass ratio] 0.3 {ratio} Normal [facility] Comment on above: Performed By: #### H STROPN, CRP, CK, CMP #### [facility] [address] [place] [address] Dr. Good Castellano ALP [Catalytic activity/Vol] 218 U/L Critically high 46-116 [facility] Comment on above: Performed By: #### H STROPN, CRP, CK, CMP #### [facility] [address] [place] [address] Dr. Good Castellano ALT [Catalytic activity/Vol] 113 U/L Critically high 16-63 [facility] Comment on above: Performed By: #### H STROPN, CRP, CK, CMP #### [facility] [address] [address] [address] Good Castellano Anion gap [Moles/Vol] 17.7 mmol/L Normal [facility] Comment on above: Performed By: #### H STROPN, CRP, CK, CMP #### [facility] [address] [address] [address] Good Castellano AST [Catalytic activity/Vol] 75 U/L Critically high 15-37 [facility] Comment on above: Performed By: #### H STROPN, CRP, CK, CMP #### [facility] [address] [address] [address] Good Castellano Bilirubin [Mass/Vol] 2.7 mg/dL Critically high 0.2-1.0 [facility] Comment on above: Performed By: #### H STROPN, CRP, CK, CMP #### [facility] [address] [address] [address] Good Castellano Calcium [Mass/Vol] 8.3 mg/dL Critically low 8.5-10.1 [facility] Comment on above: Performed By: #### H STROPN, CRP, CK, CMP #### [facility] [address] [address] [address] Good Castellano Chloride [Moles/Vol] 94 mmol/L Critically low 98-107 [facility] Comment on above: Performed By: #### H STROPN, CRP, CK, CMP #### [facility] [address] [address] [address] Good Castellano CO2 [Moles/Vol] 19.4 mmol/L Critically low 21.0-32.0 [facility] Comment on above: Performed By: #### H STROPN, CRP, CK, CMP #### [facility] [address] [place] [address] Dr. Good Castellano Creatinine [Mass/Vol] 2.38 mg/dL Critically high 0.70-1.30 [facility] Comment on above: Performed By: #### H STROPN, CRP, CK, CMP #### [facility] [address] [address] [address] Good Castellano EGFR-AF INDONESIAN 34 mL/min/1.73m2 Critically low >=60 [facility] Comment on above: Performed By: #### H STROPN, CRP, CK, CMP #### [facility] [address] [address] [address] Good Castellano EGFR-NON AF INDONESIAN 28 mL/min/1.73m2 Critically low >=60 [facility] Comment on above: Performed By: #### H STROPN, CRP, CK, CMP #### [facility] [address] [address] [address] Good Castellano Globulin (S) [Mass/Vol] 4.5 g/dL Normal [facility] Comment on above: Performed By: #### H STROPN, CRP, CK, CMP #### [facility] [address] [place] [address] Dr. Good Castellano Glucose [Mass/Vol] 131 mg/dL Critically high 74-106 T [facility] Comment on above: Performed By: #### H STROPN, CRP, CK, CMP #### [facility] [address] [address] [address] Good Castellano Potassium [Moles/Vol] 4.1 mmol/L Normal 3.5-5.1 [facility] Comment on above: Performed By: #### H STROPN, CRP, CK, CMP #### [facility] [address] [address] [address] Good Castellano Protein [Mass/Vol] 5.9 g/dL Critically low 6.4-8.2 Th [facility] Comment on above: Performed By: #### H STROPN, CRP, CK, CMP #### [facility] [address] [place] [address] Dr. Good Castellano Sodium [Moles/Vol] 127 mmol/L Critically low 136-145 Th [facility] Comment on above: Performed By: #### H STROPN, CRP, CK, CMP #### [facility] [address] [place] [address] Dr. Good Castellano Urea nitrogen [Mass/Vol] 78.0 mg/dL Critically high 7.0-18.0 [facility] Comment on above: Performed By: #### H STROPN, CRP, CK, CMP #### [facility] [address] [place] [address] Dr. Good Castellano Urea nitrogen/Creatinine [Mass ratio] 32.7 mg/mg Normal [facility] Comment on above: Performed By: #### H STROPN, CRP, CK, CMP #### [facility] [address] [place] [address] Dr. Good Castellano PROTIMEon 01-23-2023 INR Coag (PPP) [Relative time] 1.00 {INR} Normal [facility] Comment on above: Performed By: #### B CID2 #### [facility] [address] [place] [address] Dr. Good Castellano INR GUIDELINES SEE BELOW Normal The [facility] Comment on above: Result Comment: ESTEBAN RED INR: 2.0 - 3.0 CONDITIONS NOT LISTED BELOW 2.5 - 3.5 FOR PROSTHETIC HEART VALVE REPLACEMENT 2.5 - 3.5 RECURRENT THROMBOSIS Performed By: #### B CID2 #### [facility] [address] [place] [address] Dr. Good Castellano PT Coag (PPP) [Time] 10.6 s Normal 9.0-11.6 [facility] Comment on above: Performed By: #### B CID2 #### [facility] [address] [place] [address] Dr. Good Castellano PTTon 01-23-2023 aPTT Coag (Bld) [Time] 26.5 s Normal 22.3-36.2 [facility] Comment on above: Performed By: #### B CID2 #### [facility] [address] [place] [address] Dr. Good Castellano SED RATE BODEGAERGREN 2022 SED RATE 103 mm/hr Critically high <=20 The [facility] Comment on above: Performed By: #### S EDR #### [facility] [address] [place], [place] [id number] Dr. Good Castellano TROPONIN, HIGH SENSITIVITYon 01-23-2023 HSTROP 9.3 pg/mL Normal 4.0-76.1 [facility] Comment on above: Result Comment: CUT- OFF POINTS HAVE BEEN ESTABLISHED BASED ON THE FOURTH UNIVERSAL DEFINITIONS OF MYOCARDIAL INFARCTION. THE UPPER REFERENCE LIMIT (URL) OF TROPONIN, DEFINED THE 99TH PERCENTILE OF cTnI DISTRIBUTION IN A REFERENCE POPULATION, HAS BEEN CONFIRMED THE DECISION THRESHOLD FOR MT DIAGNOSIS. Performed By: #### H STROPN, CRP, CK, CMP #### [facility] [address] [place], [place] [address] Dr. Good Castellano Vital Signs Date Time Vital Sign Value Performing Clinician Faci lity 04-12-2025 13:30-0400 Diastolic blood pressure 98 mm[Hg] Valente Lew Jr., MD Work Phone (unformatted): [phone] [facility] 04-12-2025 13:30-0400 SaO2% (BldA) [Mass fraction] 100 % Valente Lew Jr., MD Work Phone (unformatted): [phone] [facility] 04-12-2025 13:30-0400 Systolic blood pressure 144 mm[Hg] Valente calero MD Work Phone (unformatted): [phone] [facility] 04-12-2025 13:15-0400 Heart rate 72 /min Valente Lew Jr., MD Work Phone (unformatted): [phone] [facility] 04-12-2025 13:15-0400 Respiratory rate 18 /min Valente Lew Jr., MD Work Phone (unformatted): [phone] [facility] 04-12-2025 12:24-0400 Body temperature 97.7 [degF] Valente Lew Jr., MD Work Phone (unformatted): [phone] [facility] 04-12-2025 11:16-0400 Body height 176.5 cm Valente Lew Jr., MD Work Phone (unformatted): [phone] [facility] [employer] 04-12-2025 11:16-0400 Body mass index (BMI) [Ratio] 22.62 kg/m2 Valente Lew Jr., MD Work Phone (unformatted): [phone] [facility] [employer] 04-12-2025 11:16-0400 Body weight 70.49 kg Valente Lew Jr., MD Work Phone (unformatted): [phone] [facility] [employer] 02-06-2025 07:23-0400 Body temperature 98.4 [degF] Mickey Hubbard MD Work Phone: [facility] [employer] 02-06-2025 07:23-0400 Diastolic blood pressure 92 mm[Hg] Mickey Hubbard MD Work Phone: [facility] [employer] 02-06-2025 07:23-0400 Heart rate 79 /min Mickey Hubbard MD Work Phone: [facility] [employer] 02-06-2025 07:23-0400 Respiratory rate 16 /min Mickey Hubbard MD Work Phone: [facility] [employer] 02-06-2025 07:23-0400 Systolic blood pressure 144 mm[Hg] Mickey Hubbard MD Work Phone: [facility] [employer] 02-06-2025 03:39-0400 SaO2% (BldA) [Mass fraction] 98 % Mickey Hubbard MD Work Phone: [facility] [employer] 02-05-2025 06:00-0400 Body mass index (BMI) [Ratio] 22.14 kg/m2 Mickey Hubbard MD Work Phone: [facility] [employer] 02-05-2025 06:00-0400 Body weight 70 kg Mickey Hubbard MD Work Phone: [facility] [employer] 02-01-2025 11:32-0400 Body height 177.8 cm Mickey Hubbard MD Work Phone: [facility] 01-28-2023 19:37-0400 SaO2% (BldA) [Mass fraction] 98 % VALENTE LARA [facility] Comment on above: Order Comment: Specimen Type: ARTERIAL B LOOD SPECIMENOrdering Facility: [facility] Address: [address] [place] [address] Performed By: #### A LLBG ####[facility] LABCLIA [id number] [place] [address] [place] 01-28-2023 18:34-0400 SaO2% (BldA) [Mass fraction] 99 % VALENTE LARA [facility] Comment on above: Order Comment: Specimen Type: ARTERIAL B LOOD SPECIMENOrdering Facility: [facility] Address: [address] [place] [address] Performed By: #### A LLBG ####[facility] LABCLIA [id number] [place] [address] [place] Encounters Encounter Date Encounter Type Care Provider Facility Start: 04-12-2025 End: 04-12-2025 ambulatory VALENTE LEW [facility] Start: 04-12-2025 End: 04-12-2025 Subsequent hospital visit by physician Valente Lew MD Work Phone (unformatted): [phone] [facility] [place] Comment on above: Prostate cancer (HCC ); BPH with obstruction/lower urinary tract symptoms Start: 04-05-2025 End: 04-05-2025 ambulatory Santos Corona [facility] Work Phone: Start: 04-05-2025 End: 04-05-2025 Departed Referred Santos Corona DO Work Phone: [facility] Start: 01-30-2025 End: 02-06-2025 Evaluation and management of inpatient Mickey Hubbard MD Work Phone: [facility] Car 2- Stepdown Start: 05-03-2023 Refill Araceli Betts MD Work Phone: Hematology/Oncology Comment on above: Refill Request Start: 03-25-2023 End: 03-25-2023 ambulatory Ly Spicer CHARLIE Work Phone: Orthopaedics Comment on above: S/P [place] proc edure (Primary Dx); S/P flap graft Start: 03-25-2023 End: 03-25-2023 Telemedicine consultation with patient Ly Spicer CHARLIE Work Phone: [facility] Start: 03-10-2023 Telephone encounter Gaby walker MD Work Phone: Orthopaedics Comment on above: Orders Start: 03-07-2023 End: 03-07-2023 ambulatory IMER AMARO Facility:[facility] Start: 03-07-2023 End: 03-07-2023 Nutrition therapy Imer Amaro [employer]SIDE PLANT SUPERVISOR.TECHNICAL INSTRUCTOR Work Phone: Plastic Surgery Comment on above: Post-operative state (Primary Dx); Severe protein-calorie malnutrition (HCC) Start: 03-07-2023 End: 03-07-2023 Telemedicine consultation with patient Imer Amaro [employer]SIDE PLANT SUPERVISOR.TECHNICAL INSTRUCTOR Work Phone: [facility] Start: 03-04-2023 ambulatory Alicia Nguyễn RN Infec tious Disease Comment on above: [employer] [place] Start: 03-04-2023 Telephone encounter Imer márquez OUTSIDE PLANT SUPERVISOR.TECHNICAL INSTRUCTOR Work Phone: Plastic Surgery Comment on above: Patient Question (Srini spencer from [facility] calling/) Start: 03-03-2023 Telephone encounter Alverto garcia MD Work Phone: Plastic Surgery Comment on above: Patient Update Start: 02-28-2023 End: 03-01-2023 ambulatory [facility] Start: 02-22-2023 End: 02-23-2023 ambulatory [facility] Start: 02-22-2023 End: 02-22-2023 Subsequent hospital visit by physician Gaby Parker MD Work Phone: [facility] Comment on above: Refill Request Start: 02-22-2023 Telephone encounter Gaby walker MD Work Phone: Orthopaedics Comment on above: Patient Update Start: 02-21-2023 Evaluation and management of inpatient GERMAN MCKINNEY [facility] Start: 02-17-2023 ambulatory Trinidad Lee Work Phone: Infectious Disease Comment on above: [employer] Agency Start: 02-17-2023 Telephone encounter Alverto garcia MD Work Phone: Plastic Surgery Comment on above: Patient Question (Ne ed clarification on wound care orders ) Start: 02-16-2023 Telephone encounter Jaimee Morales RN Work Phone: Hematology/Oncology Comment on above: Care Coordination (M edication update) Start: 02-11-2023 Refill Araceli Betts MD Work Phone: Hematology/Oncology Comment on above: Refill Request Start: 02-04-2023 Telephone encounter Jaimee Morales RN Work Phone: Hematology/Oncology Comment on above: Care Coordination (q uestion) Start: 02-02-2023 ambulatory Trinidad Lee Work Phone: [facility] Comment on above: [employer] Start Start: 01-29-2023 End: 01-29-2023 ambulatory TOMÁS GARRETT Facility:[facility] Start: 01-24-2023 Evaluation and management of inpatient VALENTE LARA Facility:[facility] Start: 01-23-2023 End: 01-24-2023 ambulatory MERARI NILAM . Facility: Start: 10-15-2022 Refill Araceli Betts MD Work Phone: Hematology/Oncology Comment on above: Refill Request Start: 05-26-2022 ambulatory Araceli Betts MD Work Phone: Hematology/Oncology Comment on above: Me Start: 03-26-2022 Telephone encounter Araceli holland MD Work Phone: Cancer [facility] Comment on above: No Show Start: 03-18-2022 Telephone encounter Maryanne Jami Quinn medellin PA-C Work Phone: Hematology/Oncology Comment on above: Lab Orders Start: 03-02-2022 ambulatory ARACELI BETTS Facility :[facility] Start: 03-01-2022 ambulatory Araceli Betts MD Work Phone: Hematology/Oncology Comment on above: Tests Start: 02-26-2022 ambulatory Thompson Bell DO Work Phone: [facility] Start: 02-26-2022 Patient encounter procedure Thompson Bell DO Work Phone: Palliative Medicine Comment on above: Appointment Start: 02-15-2022 Refill Maryanne CHARLES-C Work Phone: Hematology/Oncology Comment on above: Refill Request Start: 02-24-2021 Preoperative state Maryanne teran PA-C Work Phone: [facility] Work Phone: Procedures Date Procedure Procedure Detail Performing Clinician Start: 04-12-2025 Fluoroscopy during operation Valente Lew MD Work Phone (unformatted): [phone] Start: 02-06-2025 Glucose blood reagen t strip Jose G Mcdonough MD Work Phone: Start: 02-06-2025 Basic metabolic pane l calcium total Pantera Blackwell MD Work Phone: Start: 02-05-2025 Glucose blood reagen t strip Jose G Mcdonough MD Work Phone: Start: 02-05-2025 Blood count hemoglobin Rhys Nic DO Work Phone: Start: 02-05-2025 End: 02-05-2025 Basic metabolic panel calcium total Pantera Blackwell MD Work Phone: Start: 02-05-2025 Urography antegrade rs&i Esau Egan MD Work Phone: Start: 02-05-2025 Glucose blood reagen t strip Jose G Mcdonough MD Work Phone: Start: 02-05-2025 Blood count hemoglobin Rhys Nic DO Work Phone: Start: 02-04-2025 Blood count hemoglobin Rhys Nic DO Work Phone: Start: 02-04-2025 Glucose blood reagen t strip Jose G Mcdonough MD Work Phone: Start: 02-04-2025 Glucose blood reagen t strip Rhys Nic DO Work Phone: Start: 02-04-2025 Plmt nephrostomy cat h prq new access rs&i Miller Pérez MD Work Phone: Start: 02-04-2025 Prothrombin time Des Corona MD Work Phone: Start: 02-04-2025 Glucose blood reagen t strip Rhys Nic DO Work Phone: Start: 02-04-2025 Assay of magnesium Flex Corona MD Work Phone: Start: 02-04-2025 BASIC METABOLIC PANE L W/ REFLEX TO MG FOR LOW K Des Corona MD Work Phone: Start: 02-03-2025 Glucose blood reagen t strip Rhys Nic DO Work Phone: Start: 02-03-2025 Glucose blood reagen t strip Rhys Nic DO Work Phone: Start: 02-03-2025 Assay of magnesium Flex Corona MD Work Phone: Start: 02-03-2025 BASIC METABOLIC PANE L W/ REFLEX TO MG FOR LOW K Des Corona MD Work Phone: Start: 02-02-2025 End: 02-02-2025 Assay of magnesium Des Corona MD Work Phone: Start: 02-02-2025 BASIC METABOLIC PANE L W/ REFLEX TO MG FOR LOW K Des Corona MD Work Phone: Start: 02-01-2025 Glucose blood reagen t strip Rhys Nic DO Work Phone: Start: 02-01-2025 End: 02-01-2025 Prothrombin time Miller Pérez MD Work Phone: Start: 02-01-2025 Fluoroscopy during operation Dell Dodge MD Work Phone: Start: 02-01-2025 End: 02-01-2025 CYSTOSCOPY RETROGRADE PYELOGRAM Dell Dodge MD Work Phone: Start: 02-01-2025 Glucose blood reagen t strip Rhys Nic DO Work Phone: Start: 02-01-2025 BASIC METABOLIC PANE L W/ REFLEX TO MG FOR LOW K Des Corona MD Work Phone: Start: 02-01-2025 Blood count complete auto&auto difrntl wbc Des Corona MD Work Phone: Start: 02-01-2025 Glucose blood reagen t strip Rhys Nic DO Work Phone: Start: 01-31-2025 Glucose blood reagen t strip Rhys Nic DO Work Phone: Start: 01-31-2025 Glucose blood reagen t strip Rhys Nic DO Work Phone: Start: 01-31-2025 Glucose blood reagen t strip Rhys Nic DO Work Phone: Start: 01-31-2025 Protein total xcpt refractometry urine Des Corona MD Work Phone: Start: 01-31-2025 Urnls dip stick/tabl et reagent auto microscopy Des Corona MD Work Phone: Start: 01-31-2025 Glucose blood reagen t strip Rhys Nic DO Work Phone: Start: 01-31-2025 BASIC METABOLIC PANE L W/ REFLEX TO MG FOR LOW K Des Corona MD Work Phone: Start: 01-31-2025 Blood count complete auto&auto difrntl wbc Des Corona MD Work Phone: Start: 01-30-2025 Us retroperitoneal r eal time w/image complete Maximo France MD Work Phone: Start: 01-30-2025 Ecg routine ecg w/le ast 12 lds i&r only Julia Carr MD Work Phone: Start: 01-30-2025 Antinuclear antibodies jose Maximo France MD Work Phone: Start: 01-30-2025 BASIC METABOLIC PANE L W/ REFLEX TO MG FOR LOW K Julia Carr MD Work Phone: Start: 01-30-2025 IMMUNOTYPING, SERUM Mely France MD Work Phone: Start: 01-30-2025 Protein electrophore tic fractj&quantj serum Maximo France MD Work Phone: Start: 01-30-2025 Creatinine other source Maximo France MD Work Phone: Start: 01-30-2025 Hepatitis b surf ant ibody hbsab Maximo France MD Work Phone: Start: 01-30-2025 Iaad ia hepatitis b surface antigen Maximo France MD Work Phone: Start: 01-30-2025 Radiologic exam ches t single view Zaida Arzate MD Work Phone: Start: 01-30-2025 Assay of troponin quantitative Sumit Alanna Ariel DO Work Phone: Start: 01-30-2025 End: 01-30-2025 Culture bacterial quanttative colony count urine Sumit George DO Work Phone: Start: 01-30-2025 Assay of troponin quantitative Sumit Mondragon Ariel DO Work Phone: Start: 01-30-2025 BASIC METABOLIC PANE L W/ REFLEX TO MG FOR LOW K Des Corona MD Work Phone: Start: 01-30-2025 RESPIRATORY CARE EVALUATION ONLY Miller Pérez MD Work Phone: Start: 01-30-2025 Ecg routine ecg w/le ast 12 lds i&r only Sumit George DO Work Phone: Start: 02-22-2023 Creatinine blood Gaby Parker MD Work Phone: Start: 02-22-2023 Hepatic function panel Gaby Parker MD Work Phone: Start: 02-14-2023 Antibody screen VALENTE LARA Comment on above: Order Comment: Speci men Type: BLOOD SPECIMENOrdering Facility: [facility] Address: [address] [place] [address] Performed By: #### T SCR ####[facility] MAIN BLOOD BANKCLIA [id number] [address] Start: 02-08-2023 Antibody screen VALENTE LARA Comment on above: Order Comment: Speci men Type: BLOOD SPECIMENOrdering Facility: [facility] Address: [address] [place] [address] Performed By: #### T SCR ####CC MAIN BLOOD BANKCLIA [id number] [address] Start: 02-05-2023 Antibody screen VALENTE LARA Comment on above: Order Comment: Speci men Type: BLOOD SPECIMENOrdering Facility: [facility] Address: [address] [place] [address] Performed By: #### T SCR ####CC MAIN BLOOD BANKCLIA [id number] [address] Start: 02-02-2023 Antibody screen VALENTE LARA Comment on above: Order Comment: Speci men Type: BLOOD SPECIMENOrdering Facility: [facility] Address: [address] [place] [address] Performed By: #### T SCR ####CC MAIN BLOOD BANKCLIA [id number] [address] Start: 01-30-2023 Antibody screen VALENTE LARA Comment on above: Order Comment: Speci men Type: BLOOD SPECIMENOrdering Facility: [facility] Address: [address] [place] [address] Performed By: #### T SCR ####[facility] MA[facility] BLOOD BANKCLIA [id number] [address] Start: 01-27-2023 Antibody screen VALENTE LARA Comment on above: Order Comment: Speci men Type: BLOOD SPECIMENOrdering Facility: [facility] Address: [address] [place] [address] Performed By: #### T SCR ####[facility] MAIN BLOOD BANKCLIA [id number] [address] Start: 01-24-2023 Antibody screen VALENTE LARA Comment on above: Order Comment: Speci men Type: BLOOD SPECIMENOrdering Facility: [facility] Address: [address] [place] [address] Performed By: #### T SCR ####[facility] MAIN BLOOD BANKCLIA [id number] [address] Start: 02-28-2022 Adult depression scr eening assessment Thompson Bell DO Work Phone: Start: 11-15-2021 Adult depression scr eening assessment Maryanne CHARLES-C Work Phone: H/O: surgery S/P flap graft Gaby gonsalves MD Work Phone: H/O: surgery S/P flap graft Ly silverman PA-C Work Phone: Plan of Treatment Date Care Activity Detail Author Start: 2038 Respiratory Syncytia l Virus (RSV) or age 60 yrs+ (1 - 1-dose 75+ series) Respiratory Syncytial Virus (RSV) or age 60 yrs+ (1 - 1-dose 75+ series) [facility] Start: 12-25-2026 PROSTATE CANCER SCREENING DISCUSSION PROSTATE CANCER SCREENING DISCUSSION [facility] Start: 02-22-2026 DIABETES SCREEN DIABETES SCREEN [facility] Start: 02-13-2026 DIABETES SCREEN DIABETES SCREEN [facility] Start: 02-11-2026 DIABETES SCREEN DIABETES SCREEN [facility] Start: 02-08-2026 DIABETES SCREEN DIABETES SCREEN [facility] Start: 02-06-2026 GFR test (Diabetes, CKD 3-4, OR last GFR 15-59) GFR test (Diabetes, CKD 3-4, OR last GFR 15-59) [facility] Start: 02-02-2026 DIABETES SCREEN DIABETES SCREEN [facility] Start: 01-30-2026 Prostate specific antigen measurement Prostate Specific Antigen (PSA) Screening or Monitoring [facility] Start: 06-14-2025 Influenza vaccination Flu vacc ine (Season Ended) [facility] Start: 04-12-2025 End: 04-12-2025 Litholapaxy smpl/sm <2.5 cm CYSTOSCOPY URETEROSCOPY LASER Prostate cancer (HCC) BPH with obstruction/lower urinary tract symptoms 04/12/2025 11:32 AM EDT [facility] Start: 04-05-2025 Bacteria identified in Urine by Culture Urine Culture [facility] Start: 04-05-2025 Urine culture [facility] Start: 02-22-2025 End: 02-22-2025 Patient encounter procedure 02/22/2025 1:00 PM EDT Office Visit [address] [place] [address] Valente Lew Jr., MD [address] [place] [address] [phone] (Work) hosp f/u, definitive stone treatment, et high volume retention and needs void trial. [facility] Comment on above: hosp f/u, definitive stone treatment, et high volume retention and needs void trial. Start: 01-30-2025 Annual Wellness Visi t (Medicare) Annual Wellness Visit (Medicare) [facility] Start: 12-25-2024 DIABETES SCREEN DIABETES SCREEN [facility] Start: 07-15-2024 COVID-19 Vaccine ( season) COVID-19 Vaccine ( season) [facility] Start: 06-14-2024 Influenza vaccination Flu vaccine (# 1) [facility] Start: 07-15-2023 Influenza vaccination INFLUENZ A (Season Ended) [facility] Start: 06-14-2023 Influenza vaccination Flu vacc ine (Season Ended) [facility] Start: 2023 Respiratory Syncytia l Virus (RSV) or age 60 yrs+ (1 - Risk 60-74 years 1-dose series) Respiratory Syncytial Virus (RSV) or age 60 yrs+ (1 - Risk 60-74 years 1-dose series) [facility] Start: 02-28-2023 Adult depression screening assessment DEPRESSION SCREENING [facility] Start: 11-15-2022 Adult depression screening assessment DEPRESSION SCREENING [facility] Start: 11-14-2022 [facility] Start: 07-15-[address] [facility] Start: 03-26-2022 End: 05-26-2022 CBC W Auto Differential panel - Blood CBC + DIFF Lab Routine Prostate cancer metastatic to bone (HCC) Expected: 03/26/2022, Expires: 05/26/2022 [facility] Work Phone: Comment on above: Expected: 03/26/2022 , Expires: 05/26/2022 Start: 11-14-2021 DEPRESSION ASSESSMENT DEPRESSION ASS ESSMENT [facility] Start: 2013 Pneumococcal 50+ yea rs Vaccine (1 of 1 - PCV) Pneumococcal 50+ years Vaccine (1 of 1 - PCV) [facility] Start: 2013 Shingles vaccine (1 of 2) Shingles vaccine (1 of 2) [facility] Start: 2013 SHINGRIX VACCINE (1 of 2) SHINGRIX VACCINE (1 of 2) [facility] Start: 2008 COLOGUARD (FIT-DNA) COLOGUARD (FIT-D NA) [facility] Start: 2008 Colonoscopy COLONOSCOPY [facility] Start: 2008 COLORECTAL CANCER SCREENING COLORECTAL CANCER SCREENING [facility] Start: [address] COLONOGRAPHY [facility] Start: 2008 FECAL OCCULT BLOOD FECAL OCCULT BLOO D [facility] Start: 2008 Screening for malign ant neoplasm of colon [facility] Start: 2008 SIGMOIDOSCOPY SIGMOIDOSCOPY [facility] Start: 2003 Lipid panel Lipids [facility] Start: 1998 LIPID SCREEN LIPID SCREEN [facility] Start: 1982 DTaP/Tdap/Td vaccine (1 - Tdap) DTaP/Tdap/Td vaccine (1 - Tdap) [facility] Start: 1982 Pneumococcal 50+ yea rs Vaccine (1 of 2 - PCV) Pneumococcal 50+ years Vaccine (1 of 2 - PCV) [facility] Start: 1982 Shingles vaccine (1 of 2) Shingles vaccine (1 of 2) [facility] Start: 1982 SHINGRIX VACCINE (1 of 2) SHINGRIX VACCINE (1 of 2) [facility] Start: 1982 Urine microalbumin profile DTAP,TDAP,TD (1 - Tdap) [facility] Start: 1981 HEPATITIS C SCREENING HEPATITIS C SC REENING [facility] Start: 1981 HIV SCREENING HIV SCREENING [facility] Start: 1978 HIV screening HIV screen [facility] Start: 1975 COVID-19 VACCINE (1) COVID-19 VACCIN E (1) [facility] Start: 1975 Depression Screen Depression Screen [facility] Start: 1969 PNEUMOCOCCAL (1 - PCV) PNEUMOCOCCAL (1 - PCV) [facility] Start: 1968 COVID-19 VACCINE (#1) COVID-19 VACCI NE (#1) [facility] Start: 1963 COVID-19 VACCINE (#1) COVID-19 VACCI NE (#1) [facility] End: 02-10-2025 Basic metabolic 2000 panel - Serum or Plasma Basic Metabolic Panel Lab Routine Tomorrow AM for 5 Days starting 02/06/2025 until 02/10/2025, 1 completed [facility] Comment on above: Tomorrow AM for 5 Da ys starting 02/06/2025 until 02/10/2025, 1 completed End: 02-13-2025 Basic metabolic 2000 panel - Serum or Plasma Basic Metabolic Panel Lab Routine One Time for 1 Occurrences starting 02/13/2025 until 02/13/2025 [facility] Comment on above: One Time for 1 Occur rences starting 02/13/2025 until 02/13/2025 Continuous pulse oximetry Pulse oximetry, continuous Respiratory Care Routine Every 4hr until discontinued starting 01/30/2025 [facility] Comment on above: Every 4hr until disc ontinued starting 01/30/2025 Glucose [Mass/volume ] in Serum or Plasma [facility] Comment on above: 4X Daily (AC & HS) u ntil discontinued starting 01/30/2025 As Needed until disc ontinued starting 01/30/2025 End: 04-12-2025 Glucose [Mass/volume] in Serum or Plasma POCT Glucose Point of Care Testing Routine One Time for 1 Occurrences starting 04/12/2025 until 04/12/2025 [facility] Comment on above: One Time for 1 Occur rences starting 04/12/2025 until 04/12/2025 End: 01-30-2025 Hemodialysis Hemodialysis Dialysis Routine One Time for 1 Occurrences starting 01/30/2025 until 01/30/2025 [facility] Comment on above: One Time for 1 Occur rences starting 01/30/2025 until 01/30/2025 End: 04-12-2025 INITIATE PACU OXYGEN THERAPY PROTOCOL Initiate PACU Oxygen Therapy Protocol Respiratory Care Routine Continuous until discontinued starting 04/12/2025 [facility] Work Phone: Comment on above: Continuous until dis continued starting 04/12/2025 Oxygen therapy [Mini mum Data Set] Initiate Oxygen Therapy Protocol Respiratory Care Routine As Needed until discontinued starting 01/30/2025 [facility] Comment on above: As Needed until disc ontinued starting 01/30/2025 Oxygen therapy [Mini mum Data Set] Initiate Oxygen Therapy Protocol Respiratory Care Routine As Needed until discontinued starting 04/12/2025 [facility] Work Phone: Comment on above: As Needed until disc ontinued starting 04/12/2025 Pathology study Surgical Patholo gy Lab Routine Prostate cancer (HCC) BPH with obstruction/lower urinary tract symptoms Release Upon Ordering for 1 Occurrences starting 04/12/2025 [facility] Comment on above: Release Upon Orderin g for 1 Occurrences starting 04/12/2025 End: 03-26-2024 Radiologic examination pelvis 1/2 views XR PELVIS 1V AP Radiology Routine Necrotizing fasciitis (HCC) 1 Occurrences starting 02/28/2023 until 03/26/2024 [facility] Work Phone: Comment on above: 1 Occurrences starti ng 02/28/2023 until 03/26/2024 End: 04-12-2025 SURGICAL PATHOLOGY REPORT SURGICAL PATHOLOGY REPORT Lab Routine Once for 1 Occurrences starting 04/12/2025 until 04/12/2025 [facility] Comment on above: Once for 1 Occurrenc es starting 04/12/2025 until 04/12/2025 End: 03-26-2024 XR FEMUR GENERAL 2V AP/LAT LEFT XR FEMUR GENERAL 2V AP/LAT LEFT Radiology Routine Necrotizing fasciitis (HCC) 1 Occurrences starting 02/28/2023 until 03/26/2024 [facility] Work Phone: Comment on above: 1 Occurrences starti ng 02/28/2023 until 03/26/2024 [facility] Payers Date Payer Category Payer Self-pay 2021 Medicaid MEDICAID [facility] MEDICAID [id number] 2021-Present [phone] [address] [place] [address] Medicaid [id number] 2021 Medicaid [id number] 2021 Medicare MEDICARE MEDICAR E A AND B [id number] 2021-Present [phone] [place] [address] Medicare [id number] 2021 Medicare [id number] 2021 Medicare [id number] 1963 Unknown [id number] 1963 Unknown [id number] 1963 Unknown [id number] 1963 Unknown [id number] 1963 Unknown [id number] 1963 Unknown [id number] 1963 Unknown [id number] 1959 Medicaid [id number] 1961 Medicare [id number] 1961 Self-pay [id number] Social History Date Type Detail Facility Start: 04-24-2019 End: 04-12-2025 Tobacco smoking status NDIS Smokes tobacco daily [facility] History of tobacco use Cigarette Smoker [facility] Start: 04-24-2019 End: 04-12-2025 Cigarettes smoked current (pack per day) - Reported 1 [facility] Start: 04-24-2019 End: 04-12-2025 Tobacco use and exposure Former smokeless tobacco user [facility] Start: 12-25-2021 End: 04-12-2025 Alcohol intake Ex-drinker (finding) [facility] Start: 1965 Sex Assigned At Male [facility] Start: 12-19-2021 End: 01-18-2022 Exposure to SARS-CoV-2 (event) Not sure [facility] Tobacco smoking stat [facility] Tobacco smoking consumption unknown [employer] Phone: Start: 1965 Sex Assigned At Not on file [employer] Phone: Start: 01-30-2025 End: 04-12-2025 Alcohol Use Disorder Identification Test - Consumption [AUDIT-C] [facility] How often to you hav e a drink containing alcohol? Never [facility] How many standard dr inks containing alcohol do you have on a typical day? Patient does not drink [facility] How often do you hav e 6 or more drinks on 1 occasion? Less than monthly [facility] Start: 02-21-2023 End: 04-07-2025 Sex Male (finding) [facility] Medical Equipment Procedure Code Equipment Code Equipment Origin al Text Equipment Identifier Dates Cement Simplex P Tobramycin Bone Full Dose Radiopaque Preblend Sterile - [id number] Start: 02-25-2021 Cement Simplex P Tobramycin Bone Full Dose Radiopaque Preblend Sterile - [id number] Start: 02-25-2021 Head Lfit 26mm 0 Cocr Femoral C Taper Hip - [id number] Start: 02-25-2021 Stem Omnifit Fabián 8.9mm 132d 5 35mm Offset Cocr 110mm 30mm Femoral Cemented - [id number] Start: 02-25-2021 Restrictor Mediu m Vineland Cement Disposable Care Attendant Distal - [id number] Start: 02-25-2021 Head Uhr 52mm 26 mm Vineland Cocr Uhmwpe Bipolar Hip - [id number] Start: 02-25-2021 Spacer Accolade 9mm [place] Femoral Cemented Hip - [id number] Start: 02-25-2021 Stent:Urological -/02/2025 [id number] Start: 02-04-2025 Functional Status Date Assessment Result Facility [facility] Clinical Notes 02-16-2022 to 04-12-2025 Discharge InstructionsDischarge InstructionsLennie Barry RN - 02/06/2025 8:53 AM EDTBPantera rogers MD - 02/05/2025 3:05 PM Jose G Wynn MD - 02/05/2025 1:11 PM EDT Note Date & Type Note Facility 04-12-2025 Hospital Discharge instructions Esther Oliveira RN - 04/12/2025 7:30 AM EDT Discharge instructions: Ureteroscopy stone extraction, stent removal: You may see blood in the urine after the procedure. This should resolve over the next couple days. Please stay hydrated. You may see intermittent blood in the urine while the catheter in place. This is expected. You may experience flank pain, and/or frequency/urgency of urination. Please use medications prescribed to help with these symptoms. Home with hummel catheter. Please teach hummel education and send home with leg and night bag. You may see intermittent blood in the urine while the catheter in place. If the catheter becomes obstructed and needs to be exchanged, please call. Pt ok to discharge home in good condition No heavy lifting, >10 lbs for today Pt should avoid strenuous activity for today Pt should walk moderately at home Pt ok to shower Pt may resume diet as tolerated Pt should take Rx as directed No driving while on narcotics Please call attending physician or hospital sash clamp operator with questions Call or Present to ED if fever (> 101F), intractable nausea vomiting or pain. Rx in chart Pt should follow up with Dr. Valente Lew Jr, MD, in [place] schedule office visit for catheter removal and pathology in 1-2 weeks. Follow up 4-8 weeks in office with PSA Activity You have had anesthesia today Do not drive, operate heavy equipment, consume alcoholic beverages, or make any important decisions for 24 hours If you are taking pain medication: Do not drive or consume alcohol. Take your time changing positions today. You may feel light headed or dizzy if you move too quickly. Continue your home medications as ordered by your physician. Diet You can eat your normal diet when you feel well. You should start off with bland foods like chicken soup, toast, or yogurt. Then advance as tolerated. Drink plenty of fluids (unless your doctor tells you not to). Your urine should be very lightly colored without a strong odor. HUMMEL CATHETER CARE A hummel catheter is a hollow tube put into the bladder to drain urine. The catheter has a balloon on the end inside your bladder. This balloon holds the catheter in place. EQUIPMENT Soap and water Washcloth and towel DAILY CARE Wash the area around the catheter with mild soap and water daily. Wash from front to back for females. Rinse areas with warm water. Dry Wash the catheter from body to the connecting tubing. REMINDER Avoid pulling on the catheter. Tape or secure catheter to the upper leg. Keep drainage bag below the level of the bladder. Drink enough fluids to keep the urine clear or pale yellow. Check with your doctor about any limits on fluid intake. You may shower with the catheter in place. Do not take tub baths. Do not use creams or ointments around the catheter unless ordered by your doctor. The catheter should be changed regularly. This may be done by a home care nurse or doctor. Be sure to keep all appointments for catheter change. CALL YOUR DOCTOR IF YOU: Have pain where the catheter enters your body or in your bladder. Have bloody or pus-like drainage around the catheter. Have a fever over 100.4 degrees. See blood in the urine that has not been there before. documented in this encounter [facility] 02-06-2025 Hospital Discharge instructions Sondra Miner PA-C - 02/06/2025 9:43 AM EDT CALL UROLOGIST TO SCHEDULE CLOSE OUTPATIENT FOLLOW UP IN THE OFFICE TO DISCUSS FURTHER TREATMENTS/RETENTION ISSUES. FOLLOW UP IS NANCE WITH STENT IN PLACE KIDNEY STONE WILL NEED TREATED WITH PROCEDURE WITHIN A FEW WEEKS HUMMEL NEEDS TO BE REMOVED WITHIN 3 WEEKS. CALL OFFICE FOR ARRANGING VOIDING TRIAL. The following attachments cannot be sent through Care Everywhere.Ureteral Stent Placement: Post-op (Estonian)Indwelling Urinary Catheter Care: General Info (Estonian)documented in this encounter [facility] 02-06-2025 Note PROCEDURE: RIGHT NEPHROSTOGRAM WITH NEPHROSTOMY TUBE REMOVAL [...] the procedure including risks, benefits, and alternatives. Vineland protocol was observed. Sterile gowns, masks, hats and gloves utilized for maximal sterile barrier. Associate Application Developer view shows a right nephrostomy tube in [...] the department in stable condition. EBL: Minimal [facility] 02-06-2025 Note PROCEDURE: RIGHT NEPHROSTOGRAM WITH NEPHROSTOMY TUBE REMOVAL [...] the procedure including risks, benefits, and alternatives. Vineland protocol was observed. Sterile gowns, masks, hats and gloves utilized for maximal sterile barrier. Associate Application Developer view shows a right nephrostomy tube in [...] Nephrostomy tube was removed uneventfully. Interpreted by: Easu Egan MD Signed by: Esau Egan MD 02/06/25 Final result [facility] 02-06-2025 History of Present illness Narrative Pt stated that he is planning to call his ride at 1030 if he doesn't see a dr by then . RN sent PS to Dr Mcdonough regarding this and asked to come and see the pt. Pt is asking about being discharged today and is adamant about leaving even if he does not get discharged. 1036- discharge order placed, updated pt. RN removed IV and telemetry, gathered all belongings. Reviewed discharge instructions with the pt and answered all questions. Educated patient on hummel care and emptying bag, pt verbalized understanding. Pt stated that he will have to wait on his ride to get here as they have his clothes. 1038- RN called meds to beds to inquire eta for med delivery. They stated it would be about 45 minutes-1hr. Pt updated. 1152- pts daughter is here, pt stated that they attempted to deliver pts med but him nor his daughter had the copay for it and requesting it to be sent to [facility] in [place]. RN sent PS to Dr Mcdonough and requested that it be sent there instead. Renal Progress Note Patient : Allen Kearns; 59 y.o. Location: Attending: Jose G Mcdonough MD Admit Date: 01/30/2025 Hospital Day: 6 Subjective: Urine output continues to be good putting out close to 100-1 50 mL of urine an hour. Underwent removal of nephrostomy tube today by IR. Right ureteral stent appears to be in good position. Appetite good. No shortness of breath or orthopnea. Hummel catheter in place. Intravenous cefepime continues. Hemodynamically stable overall. Labs from today pending. Expect creatinine to improve further after the obstruction was relieved and urine output has picked up. Site of insertion of right IJ vein temporary dialysis catheter appears to be clean. IJ vein temporary dialysis catheter was removed few days ago. History reviewed Known history of prostate cancer with mets to the lung and bone diagnosed in 2019 status posttreatment with Casodex Lupron and Taxotere Xtandi and Zometa has received 6 cycles. Was lost to follow-up. Presented to [facility] due to decreased urine output and fatigue. Initially treated with antibiotics by PCP which did not help symptoms. He then went to the ER for suprapubic pain. Hummel was inserted 1.3 L of urine was drained. Imaging studies showed bilateral hydronephrosis, also showed right distal ureteric stone close to the right ureterovesical junction. Labs showed that he had a BUN of 108 creatinine of 13 and a potassium of 6.9. He was then transferred to [facility] underwent 1 dialysis treatment on 01/30/2025. He then underwent cystoscopy on 02/01/[address] ureteral stents. Thereafter was seen by IR underwent right side nephrostomy tube placement and antegrade stent on 02/04/25. Renal functions continue to improve steadily with relief of obstruction. Outpatient Medications: No medications prior to admission. Current Medications: Scheduled Meds: [Held by provider] heparin (porcine) 5,000 Units SubCUTAneous 3 times per day metoprolol tartrate 12.5 mg Oral BID insulin lispro 0-4 Units SubCUTAneous 4x Daily AC & HS sodium chloride flush 5-40 mL IntraVENous 2 times per day nicotine 1 patch TransDERmal Daily tamsulosin 0.4 mg Oral Daily cefepime 1,000 mg IntraVENous Q24H Continuous Infusions: sodium chloride Stopped (02/03/25 0753) sodium chloride 125 mL/hr at 02/05/25 0929 dextrose PRN Meds: fentanNYL, lidocaine, sodium chloride flush, sodium chloride, potassium chloride OR potassium chloride, magnesium sulfate, ondansetron OR ondansetron, polyethylene glycol, acetaminophen OR acetaminophen, HYDROmorphone, glucose, dextrose bolus OR dextrose bolus, glucagon (rDNA), dextrose, HYDROmorphone, heparin (porcine), heparin (porcine), hyoscyamine Input/Output: I/O last 3 completed shifts: In: 1810 [P.O.:1810] Out: 8825 [Urine:8825]. Patient Vitals for the past 96 hrs (Last 3 readings): Weight 02/05/25 0600 70 kg (154 lb 5.2 oz) 02/04/25 0600 68.2 kg (150 lb 5.7 oz) Vital Signs: Temperature: Temp: 98.3 F (36.8 C) TMax: Temp (24hrs), Av.2 F (36.8 C), Min:98 F (36.7 C), Max:98.3 F (36.8 C) Respirations: Respirations: 19 Pulse: Pulse: 99 BP: BP: 122/78 BP Range: Systolic (24hrs), Av , Min:111 , Max:145 Diastolic (24hrs), Av, Min:72, Max:94 Physical Examination: General: AAO x 3, speaking in full sentences, no accessory muscle use. HEENT: Atraumatic, normocephalic, no throat congestion, moist mucosa. Eyes: Pupils equal, round and reactive to light, EOMI. Neck: No JVD, no thyromegaly, no lymphadenopathy. Chest: Bilateral vesicular breath sounds, no rales or wheezes. Cardiac: S1 S2 RR, no murmurs, gallops or rubs, JVP not raised. Abdomen: Soft, non-tender, no masses or organomegaly, BS audible. : No suprapubic or flank tenderness. Neuro: AAO x 3, No FND. SKIN: No rashes, good skin turgor. Extremities: No edema, palpable peripheral pulses, no calf tenderness. Labs: Recent Labs 02/03/25 0645 02/04/25 0648 02/04/25 2205 02/05/25 0630 WBC 8.2 8.1 -- -- RBC 3.55* 3.66* -- -- HGB 8.8* 8.8* 8.7* 9.1* HCT 28.5* 29.4* 28.2* 30.7* MCV 80.3* 80.3* -- -- MCH 24.8* 24.0* -- -- MCHC 30.9 29.9 -- -- RDW 14.7* 14.6* -- -- PLT 275 297 -- -- MPV 9.6 9.6 -- -- BMP: Recent Labs 02/03/25 0645 02/04/25 0648 NA 136 138 K 4.4 4.5 CL 106 107 CO2 18* 18* BUN 27* 29* CREATININE 2.5* 2.1* GLUCOSE 98 100* CALCIUM 8.5* 8.8 Phosphorus: No results for input(s): PHOS in the last 72 hours. Magnesium: Recent Labs 02/03/25 0645 02/04/25 0648 MG 2.0 1.8 Albumin: No results for input(s): LABALBU in the last 72 hours. BNP: No results found for: BNP JOSE: Lab Results Component Value Date/Time JOSE NEGATIVE 01/30/2025 02:26 PM SPEP: Lab Results Component Value Date/Time ALBCAL 3.3 01/30/2025 02:26 PM ALBPCT 47 01/30/2025 02:26 PM A1PCT 9 01/30/2025 02:26 PM A2PCT 13 01/30/2025 02:26 PM BETAPCT 14 01/30/2025 02:26 PM GAMGLOB 1.2 01/30/2025 02:26 PM GGPCT 18 01/30/2025 02:26 PM PATH Reviewed by pathologist: Corinna Vanessa M.D. 01/30/2025 02:26 PM UPEP: No results found for: LABPE C3: Lab Results Component Value Date/Time C3 162 01/30/2025 02:26 PM C4: Lab Results Component Value Date/Time C4 31 01/30/2025 02:26 PM MPO ANCA: Lab Results Component Value Date/Time MPO <0.3 01/30/2025 02:26 PM PR3 ANCA: Lab Results Component Value Date/Time PR3 <0.7 01/30/2025 02:26 PM Anti-GBM: No results found for: GBMABIGG Hep BsAg: Lab Results Component Value Date/Time HEPBSAG NONREACTIVE 01/30/2025 08:45 AM Hep C AB: Lab Results Component Value Date/Time HEPCAB NONREACTIVE 01/30/2025 08:45 AM Urinalysis/Chemistries: Lab Results Component Value Date/Time NITRU NEGATIVE 01/31/2025 09:52 AM COLORU Red 01/31/2025 09:52 AM PHUR 7.0 01/31/2025 09:52 AM WBCUA 2 TO 5 01/31/2025 09:52 AM RBCUA TOO NUMEROUS TO COUNT 01/31/2025 09:52 AM LEUKOCYTESUR TRACE 01/31/2025 09:52 AM UROBILINOGEN Normal 01/31/2025 09:52 AM BILIRUBINUR NEGATIVE 01/31/2025 09:52 AM GLUCOSEU NEGATIVE 01/31/2025 09:52 AM KETUA NEGATIVE 01/31/2025 09:52 AM Urine Sodium: No components found for: JAVY Urine Potassium: No results found for: KUR Urine Chloride: No results found for: CLUR Urine Osmolarity: No results found for: OSMOU Urine Protein: No components found for: TOTALPROTEIN , URINE Urine Creatinine: No results found for: LABCREA Urine Eosinophils: No components found for: UEOS Radiology: CXR: Assessment: 1. Acute Kidney Injury: Secondary to obstructive uropathy related to lower tract obstruction from prostate cancer, further aggravated by right distal ureteric stone close to the ureterovesical junction. Creatinine was 13 BUN 108 calcium was 6.9. Required 1 session of dialysis 01/30/2025. Thereafter renal function continues to improve after Hummel was placed. Creatinine down to 2.1 now. Right IJ vein temporary dialysis catheter has been removed 2. Obstructive uropathy from lower tract obstruction further aggravated by right distal ureteric stone close to the ureterovesical junction, status post right nephrostomy tube and antegrade stent placement on the right side 3. Hyperkalemia secondary to acute kidney injury and obstructive uropathy resolved 4. Anion gap and nongap metabolic acidosis secondary to acute kidney injury and type IV RTA 5. Prostate cancer with mets to the lungs on androgen deprivation therapy 6. Postobstructive diuresis Plan: 1. Continue normal saline at 125 mL an hour to compensate for postobstructive diuresis 2. Increase oral intake of fluids 3. Leave Hummel in 4. Await further urology plans 5. Follow renal function and watch for postobstructive diuresis 6. Will follow Nutrition Please ensure that patient is on a renal diet/TF. Avoid nephrotoxic drugs/contrast exposure. We will continue to follow along with you. [facility] IN-PATIENT SERVICE [facility] Progress Note 02/05/2025 1:11 PM Name: Allen Kearns Acct: [id number] Room: Day: 6 Admit Date: 01/30/2025 4:04 AM PCP: German Davial, Code Status: Full Code Subjective: Interval History Status: improved. Patient states that he feels much better and wants to go home. Denies any abdominal pain nausea or vomiting he is afebrile. Patient was admitted to the hospital with acute kidney injury with hyperkalemia was found to have obstructive uropathy for which she had cystoscopy and bilateral stent placement and also had nephrostomy tube and antegrade stent on 02/04/2025. Nephrostomy tube was removed on 02/05/2025 Medications: Allergies: Allergies Allergen Reactions Hydrocodone-Acetaminophen Current Meds: Scheduled Meds: [Held by provider] heparin (porcine) 5,000 Units SubCUTAneous 3 times per day metoprolol tartrate 12.5 mg Oral BID insulin lispro 0-4 Units SubCUTAneous 4x Daily AC & HS sodium chloride flush 5-40 mL IntraVENous 2 times per day nicotine 1 patch TransDERmal Daily tamsulosin 0.4 mg Oral Daily cefepime 1,000 mg IntraVENous Q24H Continuous Infusions: sodium chloride Stopped (02/03/25 0753) sodium chloride 125 mL/hr at 02/05/25 0929 dextrose PRN Meds: fentanNYL, lidocaine, sodium chloride flush, sodium chloride, potassium chloride OR potassium chloride, magnesium sulfate, ondansetron OR ondansetron, polyethylene glycol, acetaminophen OR acetaminophen, HYDROmorphone, glucose, dextrose bolus OR dextrose bolus, glucagon (rDNA), dextrose, HYDROmorphone, heparin (porcine), heparin (porcine), hyoscyamine Data: Past Medical History: has a past medical history of History of prostate cancer, Necrotizing fasciitis (HCC), Pathologic fracture, and Prostate cancer metastatic to multiple sites (HCC). Social History: Family History: History reviewed. No pertinent family history. Vitals: BP 116/75 Pulse 87 Temp 98.3 F (36.8 C) (Oral) Resp 16 Ht 1.778 m (5' 10 ) Wt 70 kg (154 lb 5.2 oz) SpO2 98% BMI 22.14 kg/m Temp (24hrs), Av.2 F (36.8 C), Min:98 F (36.7 C), Max:98.3 F (36.8 C) Recent Labs 02/04/25 0754 02/04/25 1630 02/04/25 2036 02/05/25 0733 POCGLU 118* 91 127* 97 I/O (24Hr): Intake/Output Summary (Last 24 hours) at 02/05/2025 1311 Last data filed at 02/05/2025 0845 Gross per 24 hour Intake 2380 ml Output 4950 ml Net -2570 ml Labs: Hematology: Recent Labs 02/03/25 0645 02/04/25 0648 02/04/25 0906 02/04/25 2205 02/05/25 0630 WBC 8.2 8.1 -- -- -- RBC 3.55* 3.66* -- -- -- HGB 8.8* 8.8* -- 8.7* 9.1* HCT 28.5* 29.4* -- 28.2* 30.7* MCV 80.3* 80.3* -- -- -- MCH 24.8* 24.0* -- -- -- MCHC 30.9 29.9 -- -- -- RDW 14.7* 14.6* -- -- -- PLT 275 297 -- -- -- MPV 9.6 9.6 -- -- -- INR -- -- 1.0 -- -- Chemistry: Recent Labs 02/03/25 0645 02/04/25 0648 NA 136 138 K 4.4 4.5 CL 106 107 CO2 18* 18* GLUCOSE 98 100* BUN 27* 29* CREATININE 2.5* 2.1* MG 2.0 1.8 ANIONGAP 12 13 LABGLOM 29* 35* CALCIUM 8.5* 8.8 Recent Labs 02/03/25 1058 02/03/25 1616 02/04/25 0754 02/04/25 1630 02/04/25 2036 02/05/25 0733 POCGLU 110 111* 118* 91 127* 97 ABG:No results found for: POCPH , PHART , PH , POCPCO2 , LKB7AYE , PCO2 , POCPO2 , PO2ART , PO2 , POCHCO3 , QMN7BNR , HCO3 , NBEA , PBEA , BEART , BE , THGBART , THB , UHM7JWQ , PIOQ0VUK , [id number] , O2SAT , FIO2 Lab Results Component Value Date/Time SPECIAL Site: Urine 01/30/2025 05:19 AM Lab Results Component Value Date/Time CULTURE NO GROWTH 01/30/2025 05:19 AM Radiology: IR GUIDED NEPHROSTOMY CATH PLACEMENT RIGHT Result Date: 02/04/2025 Successful percutaneous right nephrostomy tube placement. Successful antegrade right ureteral stent placement; 8 [place] by 24 cm double-J stent was deployed. US RENAL COMPLETE Result Date: 01/30/2025 Mild to moderate bilateral hydronephrosis. The kidneys appear otherwise sonographically normal. XR CHEST PORTABLE Result Date: 01/30/2025 Right jugular central venous catheter terminates in the right atrium Bandlike opacity left parahilar region suggesting subsegmental atelectasis Physical Examination: General appearance: alert, cooperative and no distress Lungs: clear to auscultation bilaterally, normal effort Heart: regular rate and rhythm, no murmur Abdomen: soft, nontender, nondistended, normal bowel sounds Extremities: no edema, redness, tenderness in the calves Skin: no gross lesions or rashes Assessment: Hospital Problems Last Modified POA * (Principal) Acute renal failure 01/30/2025 Yes VALERIA (acute kidney injury) 01/30/2025 Yes Obstructive uropathy 01/30/2025 Yes Hyperkalemia 01/30/2025 Yes Metabolic acidosis 01/30/2025 Yes History of prostate cancer 01/30/2025 Yes Urinary retention 01/30/2025 Yes Plan: Acute kidney injury with hyperkalemia required temporary dialysis. Kidney function is stable now and temporary dialysis catheter has been removed. Obstructive uropathy secondary to 4 mm distal right ureteral stone status post cystoscopy with stents placement bilaterally and status post nephrostomy tube with antegrade stent placement and subsequent removal of the nephrostomy tube. Hummel catheter is placed and draining. Discharge planning: Anticipate patient be able to discharge home tomorrow if creatinine remains stable and Hummel catheter remains functional. Jose G Mcdonough MD 02/05/2025 1:11 PM Urology Progress Note Subjective: Status post attempted but unsuccessful bilateral ureteral stent placement 02/01/2025, status post IR right antegrade stent and right nephrostomy tube placement yesterday, right nephrostomy tube is clamped Nothing acute overnight Afebrile, vital signs stable Hummel UOP 5650 mL/24h AM labs pending Vitals and Labs: Vitals: 02/04/25 2336 02/05/25 0006 02/05/25 0324 02/05/25 0600 BP: 111/75 125/81 Pulse: 87 94 Resp: 13 14 13 Temp: 98 F (36.7 C) 98.3 F (36.8 C) TempSrc: Oral Oral SpO2: 98% 97% Weight: 70 kg (154 lb 5.2 oz) Height: I/O last 3 completed shifts: In: 1810 [P.O.:1810] Out: 8825 [Urine:8825] Recent Labs 02/03/25 0645 02/04/25 0648 02/04/25 2205 WBC 8.2 8.1 -- HGB 8.8* 8.8* 8.7* HCT 28.5* 29.4* 28.2* MCV 80.3* 80.3* -- PLT 275 297 -- Recent Labs 02/03/25 0645 02/04/25 0648 NA 136 138 K 4.4 4.5 CL 106 107 CO2 18* 18* BUN 27* 29* CREATININE 2.5* 2.1* No results for input(s): COLORU , PHUR , LABCAST , WBCUA , RBCUA , MUCUS , TRICHOMONAS , YEAST , BACTERIA , CLARITYU , SPECGRAV , LEUKOCYTESUR , UROBILINOGEN , BILIRUBINUR , BLOODU in the last 72 hours. Invalid input(s): NITRATE , GLUCOSEUKETONESUAMORPHOUS Physical Exam: NAD A/O x 3 RRR No accessory muscles of inspiration Abdomen soft, non-tender, non-distended. No CVA tenderness. + right nephrostomy tube that is clamped Hummel in place. Clear yellow UOP. No calf pain. EPCs on. Machine turned on. Impression: 59 yo male with Acute renal failure with bilateral hydroureteronephrosis secondary to acute urinary retention for greater than 1.3 L, status post attempted but unsuccessful bilateral ureteral stent placement 02/01/2025 secondary to J hooking of ureters 4 mm distal right ureteral stone History of metastatic prostate cancer managed with chemo and radiation, lost to follow-up, started Bessie 02/01/2025 Plan: S/P right antegrade stent and nephrostomy tube placement yesterday, nephrostomy tube is clamped Once creatinine nadirs, can have IR remove right nephrostomy tube under fluoroscopy Maintain Hummel catheter for maximum decompression of urinary system, having high urinary output Monitor electrolytes for any imbalances requiring replacement Levsin as needed for bladder spasms Continue firmeusebio Corona MD PGY-5 7:06 AM 02/05/2025 Renal Progress Note Patient : Allen Kearns; 59 y.o. Location: Attending: Rhys Leigh DO Admit Date: 01/30/2025 Hospital Day: 5 Subjective: Underwent right sided nephrostomy tube antegrade stent placement today. Urine output continues to be excellent put out close to 7 L of urine yesterday. This morning urine appears to be somewhat blood-tinged. No intervention done on the left side. Patient does have right distal ureteric stone close to the right ureterovesical junction. Renal function improving creatinine down to 2.1 today. Hemodynamically stable. Oral intake good. Apparently drinking several glasses of pop today. No fever or chills. No nausea vomiting. Intravenous cefepime continues for presumed UTI. Flomax continues. Labs today showed a sodium of 138 potassium 4.5 chloride 107 bicarb 18 BUN 29 creatinine 2.1 calcium 8.8 hemoglobin 8.8 white count 8.1 platelets 297 History reviewed Known history of prostate cancer with mets to the lung and bone diagnosed in 2019 status posttreatment with Casodex Lupron and Taxotere Xtandi and Zometa has received 6 cycles. Was lost to follow-up. Presented to [facility] due to decreased urine output and fatigue. Initially treated with antibiotics by PCP which did not help symptoms. He then went to the ER for suprapubic pain. Hummel was inserted 1.3 L of urine was drained. Imaging studies showed bilateral hydronephrosis, also showed right distal ureteric stone close to the right ureterovesical junction. Labs showed that he had a BUN of 108 creatinine of 13 and a potassium of 6.9. He was then transferred to [facility] underwent 1 dialysis treatment on 01/30/2025. He then underwent cystoscopy on 02/01/[address] ureteral stents. Thereafter was seen by IR underwent right side nephrostomy tube placement and antegrade stent on 02/04/25. Renal functions continue to improve steadily with relief of obstruction. Outpatient Medications: No medications prior to admission. Current Medications: Scheduled Meds: [Held by provider] heparin (porcine) 5,000 Units SubCUTAneous 3 times per day metoprolol tartrate 12.5 mg Oral BID insulin lispro 0-4 Units SubCUTAneous 4x Daily AC & HS sodium chloride flush 5-40 mL IntraVENous 2 times per day nicotine 1 patch TransDERmal Daily tamsulosin 0.4 mg Oral Daily cefepime 1,000 mg IntraVENous Q24H Continuous Infusions: sodium chloride Stopped (02/03/25 0753) sodium chloride 60 mL/hr at 02/03/25 2334 dextrose PRN Meds: lidocaine, sodium chloride flush, sodium chloride, potassium chloride OR potassium chloride, magnesium sulfate, ondansetron OR ondansetron, polyethylene glycol, acetaminophen OR acetaminophen, HYDROmorphone, glucose, dextrose bolus OR dextrose bolus, glucagon (rDNA), dextrose, fentanNYL, HYDROmorphone, heparin (porcine), heparin (porcine), hyoscyamine Input/Output: I/O last 3 completed shifts: In: 3701.7 [P.O.:1000; I.V.:2601.2; IV Piggyback:100.5] Out: 9850 [Urine:9850]. Patient Vitals for the past 96 hrs (Last 3 readings): Weight 02/04/25 0600 68.2 kg (150 lb 5.7 oz) 02/01/25 1132 69.4 kg (153 lb) Vital Signs: Temperature: Temp: 98.2 F (36.8 C) TMax: Temp (24hrs), Av.9 F (36.6 C), Min:97.4 F (36.3 C), Max:98.2 F (36.8 C) Respirations: Respirations: 15 Pulse: Pulse: 87 BP: BP: (!) 126/93 BP Range: Systolic (24hrs), Av , Min:109 , Max:153 Diastolic (24hrs), Av, Min:79, Max:95 Physical Examination: General: AAO x 3, speaking in full sentences, no accessory muscle use. HEENT: Atraumatic, normocephalic, no throat congestion, moist mucosa. Eyes: Pupils equal, round and reactive to light, EOMI. Neck: No JVD, no thyromegaly, no lymphadenopathy. Chest: Bilateral vesicular breath sounds, no rales or wheezes. Cardiac: S1 S2 RR, no murmurs, gallops or rubs, JVP not raised. Abdomen: Soft, non-tender, no masses or organomegaly, BS audible. : No suprapubic or flank tenderness. Neuro: AAO x 3, No FND. SKIN: No rashes, good skin turgor. Extremities: No edema, palpable peripheral pulses, no calf tenderness. Labs: Recent Labs 02/02/25 0600 02/03/25 0645 02/04/25 0648 WBC 9.6 8.2 8.1 RBC 3.48* 3.55* 3.66* HGB 8.5* 8.8* 8.8* HCT 27.5* 28.5* 29.4* MCV 79.0* 80.3* 80.3* MCH 24.4* 24.8* 24.0* MCHC 30.9 30.9 29.9 RDW 15.0* 14.7* 14.6* PLT 283 275 297 MPV 9.6 9.6 9.6 BMP: Recent Labs 02/02/25 0600 02/03/25 0645 02/04/25 0648 NA 139 136 138 K 4.1 4.4 4.5 CL 105 106 107 CO2 21 18* 18* BUN 30* 27* 29* CREATININE 3.2* 2.5* 2.1* GLUCOSE 111* 98 100* CALCIUM 7.9* 8.5* 8.8 Phosphorus: No results for input(s): PHOS in the last 72 hours. Magnesium: Recent Labs 02/02/25 0600 02/03/25 0645 02/04/25 0648 MG 1.5* 2.0 1.8 Albumin: No results for input(s): LABALBU in the last 72 hours. BNP: No results found for: BNP JOSE: Lab Results Component Value Date/Time JOSE NEGATIVE 01/30/2025 02:26 PM SPEP: Lab Results Component Value Date/Time ALBCAL 3.3 01/30/2025 02:26 PM ALBPCT 47 01/30/2025 02:26 PM A1PCT 9 01/30/2025 02:26 PM A2PCT 13 01/30/2025 02:26 PM BETAPCT 14 01/30/2025 02:26 PM GAMGLOB 1.2 01/30/2025 02:26 PM GGPCT 18 01/30/2025 02:26 PM PATH Reviewed by pathologist: Corinna Vanessa M.D. 01/30/2025 02:26 PM UPEP: No results found for: LABPE C3: Lab Results Component Value Date/Time C3 162 01/30/2025 02:26 PM C4: Lab Results Component Value Date/Time C4 31 01/30/2025 02:26 PM MPO ANCA: Lab Results Component Value Date/Time MPO <0.3 01/30/2025 02:26 PM PR3 ANCA: Lab Results Component Value Date/Time PR3 <0.7 01/30/2025 02:26 PM Anti-GBM: No results found for: GBMABIGG Hep BsAg: Lab Results Component Value Date/Time HEPBSAG NONREACTIVE 01/30/2025 08:45 AM Hep C AB: Lab Results Component Value Date/Time HEPCAB NONREACTIVE 01/30/2025 08:45 AM Urinalysis/Chemistries: Lab Results Component Value Date/Time NITRU NEGATIVE 01/31/2025 09:52 AM COLORU Red 01/31/2025 09:52 AM PHUR 7.0 01/31/2025 09:52 AM WBCUA 2 TO 5 01/31/2025 09:52 AM RBCUA TOO NUMEROUS TO COUNT 01/31/2025 09:52 AM LEUKOCYTESUR TRACE 01/31/2025 09:52 AM UROBILINOGEN Normal 01/31/2025 09:52 AM BILIRUBINUR NEGATIVE 01/31/2025 09:52 AM GLUCOSEU NEGATIVE 01/31/2025 09:52 AM KETUA NEGATIVE 01/31/2025 09:52 AM Urine Sodium: No components found for: JAVY Urine Potassium: No results found for: KUR Urine Chloride: No results found for: CLUR Urine Osmolarity: No results found for: OSMOU Urine Protein: No components found for: TOTALPROTEIN , URINE Urine Creatinine: No results found for: LABCREA Urine Eosinophils: No components found for: UEOS Radiology: CXR: Assessment: 1. Acute Kidney Injury: Secondary to obstructive uropathy related to lower tract obstruction from prostate cancer, further aggravated by right distal ureteric stone close to the ureterovesical junction. Creatinine was 13 BUN 108 calcium was 6.9. Required 1 session of dialysis 01/30/2025. Thereafter renal function continues to improve after Hummel was placed. Creatinine down to 2.1 now. Right IJ vein temporary dialysis catheter has been removed 2. Obstructive uropathy from lower tract obstruction further aggravated by right distal ureteric stone close to the ureterovesical junction, status post right nephrostomy tube and antegrade stent placement on the right side 3. Hyperkalemia secondary to acute kidney injury and obstructive uropathy resolved 4. Anion gap and nongap metabolic acidosis secondary to acute kidney injury and type IV RTA 5. Prostate cancer with mets to the lungs on androgen deprivation therapy 6. Postobstructive diuresis Plan: 1. Start normal saline at 125 mL an hour to compensate for postobstructive diuresis 2. Increase oral intake of fluids 3. Leave Hummel in 4. Await further urology plans 5. Right IJ vein temporary dialysis catheter has been removed 6. Will follow Nutrition Please ensure that patient is on a renal diet/TF. Avoid nephrotoxic drugs/contrast exposure. We will continue to follow along with you. Images from the original note were not included. [facility] Office: [phone] Jose Roberto Child DO, Dominic Clay DO, Harrison Arciniega DO, Santos Spence DO, Lennie Martino MD, Jessica Urbina MD, Shayy Hernández MD, Tiffanie Russo MD, Rickey Hardy MD, Ger Philip MD, Carl Arvizu MD, Dwight Acevedo DO, Radha Easley MD, Edy Villanueva MD, Kaushik Child DO, Brandee Beaulieu MD, Rhys Leigh DO, Saira Solorzano MD, Jerri Giles MD, Genoveva Ellsworth MD, Vinnie Bustillos MD, Glenn Deigo MD, Hai Argueta MD, Manuela Griffin MD, Gabriele Farias MD, Cliff Brown MD, Cammy Mendosa MD, Valente Ocampo DO, Saud Lynne MD, Dwight Gamble MD, Marcus Gamble MD, Angela Martin, TECHNICAL INSTRUCTOR, Susan Ribera, TECHNICAL INSTRUCTOR, Valente Mello, TECHNICAL INSTRUCTOR, Libby Claire, HARSHAL, Carmela Kilpatrick, TECHNICAL INSTRUCTOR, Britney Choudhury, TECHNICAL INSTRUCTOR, Clau Verma, TECHNICAL INSTRUCTOR, Velia Castillo, TECHNICAL INSTRUCTOR, Lidia Mathews, PA-C, Kenisha Strong, TECHNICAL INSTRUCTOR, Cathy Jimenez, TECHNICAL INSTRUCTOR, Leah Ny, [facility], Rebecca Perales, [facility], Yvette Calderon, [facility], Selena Breaux, [facility], Kady Hoffman, TECHNICAL INSTRUCTOR, Roxanne Lo, TECHNICAL INSTRUCTOR, Rosy Xavier, TECHNICAL INSTRUCTOR [facility] IN-PATIENT SERVICE [facility] Progress Note 02/04/2025 9:18 AM Name: Allen Kearns Acct: [id number] Room: Day: 5 Admit Date: 01/30/2025 4:04 AM PCP: German Davila DO Code Status: Full Code Subjective: C/C: Urinary Retention. Interval History Status: improved. Vitals reviewed, Afebrile and hemodynamically stable. Saturating well on room air. Labs reviewed, BUN and creatinine improving 29 and 2.1 respectively but improving, leukocytosis resolved, hemoglobin stable, platelets stable. Overnight patient had no significant events. On examination patient resting comfortably in bed. Status post cystoscopy with bilateral retrograde pyelogram on 02/01/2025. Urology with plan for IR placement of right nephrostomy tube with antegrade stent if possible which was done on 02/04/2025. Patient had gross hematuria following procedure. Will hold subcutaneous heparin for now and monitor. Brief History: This is a 59-year-old male with a significant past medical history of metastatic prostate cancer who initially presented to [facility] for urinary retention. He states over the past week he noticed it became increasingly more difficult to urinate to the point where he was only urinating while sleeping with accidents. Complained of suprapubic abdominal pain. At [facility] facility he was found to be hyperkalemic 6.9 and Hummel catheter was placed draining [address] imaging demonstrated bilateral hydronephrosis and hydroureter with a 4 mm stone in the distal right ureter just proximal to the ureteral vesicular junction. He was transferred to [facility] ICU for evaluation. He was evaluated by urology with plan to maintain Hummel catheter for minimum 1 week due to high-volume urinary retention. Nephrology was consulted and patient was ultimately started on hemodialysis due to hyperkalemia. He improved and was transferred out of medical ICU. Urology took patient to the OR for cystoscopy with right ureteral stent placement on 01/31/2025 > unfortunately patient was taken to OR but procedure was canceled and rescheduled for 02/01/25. Status post cystoscopy with bilateral retrograde pyelogram on 02/01/2025 with recommendations from urology for IR right nephrostomy tube placement with antegrade stent placed 02/04/2025. Urology with plan to assess nephrostomy tube in the morning with possible discharge thereafter if cleared from nephrology and hematuria stable. Review of Systems: Constitutional: negative for chills, fevers, sweats Respiratory: negative for cough, dyspnea on exertion, shortness of breath, wheezing Cardiovascular: negative for chest pain, chest pressure/discomfort, lower extremity edema, palpitations Gastrointestinal: Positive for abdominal pain intermittently. Negative for constipation, diarrhea, nausea, vomiting Neurological: negative for dizziness, headache Medications: Allergies: Allergies Allergen Reactions Hydrocodone-Acetaminophen Current Meds: Scheduled Meds: [Held by provider] heparin (porcine) 5,000 Units SubCUTAneous 3 times per day metoprolol tartrate 12.5 mg Oral BID insulin lispro 0-4 Units SubCUTAneous 4x Daily AC & HS sodium chloride flush 5-40 mL IntraVENous 2 times per day nicotine 1 patch TransDERmal Daily tamsulosin 0.4 mg Oral Daily cefepime 1,000 mg IntraVENous Q24H Continuous Infusions: sodium chloride Stopped (02/03/25 6313) sodium chloride 60 mL/hr at 02/03/25 2334 dextrose PRN Meds: lidocaine, sodium chloride flush, sodium chloride, potassium chloride OR potassium chloride, magnesium sulfate, ondansetron OR ondansetron, polyethylene glycol, acetaminophen OR acetaminophen, HYDROmorphone, glucose, dextrose bolus OR dextrose bolus, glucagon (rDNA), dextrose, fentanNYL, HYDROmorphone, heparin (porcine), heparin (porcine), hyoscyamine Data: Past Medical History: has a past medical history of History of prostate cancer, Necrotizing fasciitis (HCC), Pathologic fracture, and Prostate cancer metastatic to multiple sites (HCC). Social History: Family History: History reviewed. No pertinent family history. Vitals: BP 138/79 Pulse 98 Temp 98.2 F (36.8 C) (Oral) Resp 18 Ht 1.778 m (5' 10 ) Wt 68.2 kg (150 lb 5.7 oz) SpO2 96% BMI 21.57 kg/m Temp (24hrs), Av.8 F (36.6 C), Min:97.4 F (36.3 C), Max:98.2 F (36.8 C) Recent Labs 02/02/25 1916 02/03/25 1058 02/03/25 1616 02/04/25 0754 POCGLU 128* 110 111* 118* I/O (24Hr): Intake/Output Summary (Last 24 hours) at 02/04/2025 0918 Last data filed at 02/04/2025 0608 Gross per 24 hour Intake 3001.71 ml Output 7150 ml Net -4148.29 ml Labs: Hematology: Recent Labs 02/01/25 1551 02/02/25 0600 02/03/25 0645 02/04/25 0648 WBC -- 9.6 8.2 8.1 RBC -- 3.48* 3.55* 3.66* HGB -- 8.5* 8.8* 8.8* HCT -- 27.5* 28.5* 29.4* MCV -- 79.0* 80.3* 80.3* MCH -- 24.4* 24.8* 24.0* MCHC -- 30.9 30.9 29.9 RDW -- 15.0* 14.7* 14.6* PLT -- 283 275 297 MPV -- 9.6 9.6 9.6 INR 1.1 -- -- -- Chemistry: Recent Labs 02/02/25 0600 02/03/25 0645 02/04/25 0648 NA 139 136 138 K 4.1 4.4 4.5 CL 105 106 107 CO2 21 18* 18* GLUCOSE 111* 98 100* BUN 30* 27* 29* CREATININE 3.2* 2.5* 2.1* MG 1.5* 2.0 1.8 ANIONGAP 13 12 13 LABGLOM 21* 29* 35* CALCIUM 7.9* 8.5* 8.8 Recent Labs 02/02/25 1124 02/02/25 1624 02/02/25 1916 02/03/25 1058 02/03/25 1616 02/04/25 0754 POCGLU 122* 131* 128* 110 111* 118* ABG:No results found for: POCPH , PHART , PH , POCPCO2 , [id number] , PCO2 , POCPO2 , PO2ART , PO2 , POCHCO3 , FYD7DMH , HCO3 , NBEA , PBEA , BEART , BE , THGBART , THB , [id number] , [id number] , [id number] , O2SAT , FIO2 Lab Results Component Value Date/Time SPECIAL Site: Urine 01/30/2025 05:19 AM Lab Results Component Value Date/Time CULTURE NO GROWTH 01/30/2025 05:19 AM Radiology: US RENAL COMPLETE Result Date: 01/30/2025 Mild to moderate bilateral hydronephrosis. The kidneys appear otherwise sonographically normal. XR CHEST PORTABLE Result Date: 01/30/2025 Right jugular central venous catheter terminates in the right atrium Bandlike opacity left parahilar region suggesting subsegmental atelectasis Physical Examination: General appearance: alert, cooperative and no distress Mental Status: oriented to person, place and time and normal affect Lungs: clear to auscultation bilaterally, normal effort Heart: regular rate and rhythm, no murmur Abdomen: soft, nontender, nondistended, normal bowel sounds Extremities: no edema, redness, tenderness in the calves Skin: no gross lesions, rashes on exposed skin. There are 2 areas of erythema to abdomen which have not expanded past the marked area presumed from chemo injection. Appear to be improving. Assessment: Hospital Problems Last Modified POA * (Principal) Acute renal failure 01/30/2025 Yes VALERIA (acute kidney injury) 01/30/2025 Yes Obstructive uropathy 01/30/2025 Yes Hyperkalemia 01/30/2025 Yes Metabolic acidosis 01/30/2025 Yes History of prostate cancer 01/30/2025 Yes Urinary retention 01/30/2025 Yes Plan: Acute renal failure with Severe Hyperkalemia. Secondary to obstructive uropathy. Status post Hummel catheter placement. Nephrology following. Due to severe hyperkalemia patient did require hemodialysis. Avoid nephrotoxic agents. Remains on 60 mL/h. Obstructive uropathy with 4 mm distal right ureteral stone. Urology following. Taken to the OR for cystoscopy with right ureteral stent placement 01/31/2025 but moved to 02/01/25. Status post cystoscopy with bilateral retrograde pyelogram on 02/01/2025. Urology with plan for IR placement of right nephrostomy tube with antegrade stent if possible which was done 02/04/2025. Plan to maintain Hummel catheter for at least 1 week due to high volume urinary retention with 1.3 L removed on Hummel catheter placement. Monitoring for postobstructive diuresis. Remains on IV fluids. On Levsin for bladder spasms. Continue Flomax. Urine culture with no growth. Remains on cefepime postop. High anion gap metabolic acidosis. Resolved. History of Metastatic Prostate Cancer. Continue outpatient follow-up. DVT prophylaxis: Heparin held due to hematuria following procedure 02/04/25. GI prophylaxis: None. Discharge planning: Pending continued urology input as well as nephrology clearance given renal function. Rhys Leigh DO 02/04/2025 9:18 AM Urology Progress Note Subjective: Status post attempted but unsuccessful bilateral ureteral stent placement 02/01/2025 Nothing acute overnight Afebrile, vital signs stable Hummel continues to drain well,'s clear urine, 7150 mL / 24 hours Creatinine continues to nicely downtrend to 2.1 from 2.5 Vitals and Labs: Vitals: 02/04/25 0002 02/04/25 0330 02/04/25 0600 02/04/25 0833 BP: 138/79 Pulse: 93 98 Resp: 15 18 Temp: 98.2 F (36.8 C) TempSrc: Oral SpO2: 96% 96% Weight: 68.2 kg (150 lb 5.7 oz) Height: I/O last 3 completed shifts: In: 3701.7 [P.O.:1000; I.V.:2601.2; IV Piggyback:100.5] Out: 9850 [Urine:9850] Recent Labs 02/02/25 0600 02/03/25 0645 02/04/25 0648 WBC 9.6 8.2 8.1 HGB 8.5* 8.8* 8.8* HCT 27.5* 28.5* 29.4* MCV 79.0* 80.3* 80.3* PLT 283 275 297 Recent Labs 02/02/25 0600 02/03/25 0645 02/04/25 0648 NA 139 136 138 K 4.1 4.4 4.5 CL 105 106 107 CO2 21 18* 18* BUN 30* 27* 29* CREATININE 3.2* 2.5* 2.1* No results for input(s): COLORU , PHUR , LABCAST , WBCUA , RBCUA , MUCUS , TRICHOMONAS , YEAST , BACTERIA , CLARITYU , SPECGRAV , LEUKOCYTESUR , UROBILINOGEN , BILIRUBINUR , BLOODU in the last 72 hours. Invalid input(s): NITRATE , GLUCOSEUKETONESUAMORPHOUS Physical Exam: NAD A/O x 3 RRR No accessory muscles of inspiration Abdomen soft, non-tender, non-distended. No CVA tenderness. Hummel in place. Clear yellow UOP. No calf pain. EPCs on. Machine turned on. Impression: 59 yo male with Acute renal failure with bilateral hydroureteronephrosis secondary to acute urinary retention for greater than 1.3 L, status post attempted but unsuccessful bilateral ureteral stent placement 02/01/2025 secondary to J hooking of ureters 4 mm distal right ureteral stone History of metastatic prostate cancer managed with chemo and radiation, lost to follow-up, started Firmagon 02/01/2025 Plan: Discussed with interventional radiology, plan is for right nephrostomy tube placement today 02/04/2025 N.p.o. Hold any and all blood thinners Maintain Hummel catheter for maximum decompression of urinary system, having high urinary output Monitor electrolytes for any imbalances requiring replacement Levsin as needed for bladder spasms Des Corona MD PGY-5 8:38 AM 02/04/2025 CVC removed. Catheter intact with removal. Pressure dressing applied. Nephrology Progress Note Patient: Allen Kearns; 59 y.o. Location: Attending: Rhys Leigh DO Admit Date: 01/30/2025 Hospital Day: 4 Subjective History: 59-year-old male with past medical history of prostate cancer with mets to the lung and bone in 2019 status post treatment with Casodex, Lupron, Taxotere, Xtandi and Zometa x 6 cycles who presented initially to [facility] due to urinary incontinence, decreased urine output and fatigue. Patient has been treated in the outpatient setting by his PCP for possible urinary tract infection, did not feel the antibiotics were helping with his symptoms. Patient was noted to have suprapubic pain in the ED, Hummel was placed and patient put out over 1.3 L of urine within the first 10 minutes. Labs on admission demonstrated creatinine of 13, BUN of 108, and potassium of 6.9, nephrology was consulted for VALERIA and decision was made to initiate HD on 01/30/2025. Patient underwent cystoscopy with retrograde pyelogram with urology on 02/01/2025, unable to place bilateral ureteral stents, bilateral PCN tubes planned for tomorrow Patient seen and evaluated in room, no acute events overnight Intermittent episodes of hypertension noted, patient tolerating room air without difficulty Creatinine continues to show improvement currently down to 2.5 from 3.2 yesterday, on 100 mL an hour of normal saline UOP documented at 2.86 L over the last 24 hours with a -10.1 L fluid deficit since admission, off diuretic therapy Last hemodialysis treatment was on 01/30/2025 Maintained on cefepime Recent Labs 02/01/25 0918 02/02/25 0600 02/03/25 0645 NA 140 139 136 K 4.0 4.1 4.4 CL 107 105 106 CO2 21 21 18* BUN 36* 30* 27* CREATININE 4.1* 3.2* 2.5* GLUCOSE 108* 111* 98 CALCIUM 8.0* 7.9* 8.5* Objective VS: BP (!) 162/90 Pulse 95 Temp 97.3 F (36.3 C) (Oral) Resp 14 Ht 1.778 m (5' 10 ) Wt 69.4 kg (153 lb) SpO2 96% BMI 21.95 kg/m MAXIMUM TEMPERATURE OVER 24 HRS: Temp (24hrs), Av.8 F (36.6 C), Min:97.1 F (36.2 C), Max:98.5 F (36.9 C) 24 HR BLOOD PRESSURE RANGE: Systolic (24hrs), Av , Min:128 , Max:162 ; Diastolic (24hrs), Av, Min:84, Max:95 24 HR INTAKE/OUTPUT: Intake/Output Summary (Last 24 hours) at 02/03/2025 0918 Last data filed at 02/03/2025 0606 Gross per 24 hour Intake 2510 ml Output 5300 ml Net -2790 ml WEIGHT: Patient Vitals for the past 96 hrs (Last 3 readings): Weight 02/01/25 1132 69.4 kg (153 lb) 01/30/25 1150 69.8 kg (153 lb 14.1 oz) Current Medications Scheduled Meds: insulin lispro 0-4 Units SubCUTAneous 4x Daily AC & HS sodium chloride flush 5-40 mL IntraVENous 2 times per day nicotine 1 patch TransDERmal Daily tamsulosin 0.4 mg Oral Daily heparin (porcine) 1,000 Units IntraCATHeter Once heparin (porcine) 1,000 Units IntraCATHeter Once cefepime 1,000 mg IntraVENous Q24H Continuous Infusions: sodium chloride 25 mL/hr at 02/03/25 0752 sodium chloride 100 mL/hr at 02/03/25 0854 dextrose Physical Examination General: AAO x 3, speaking in full sentences, no accessory muscle use. Chest: Bilateral vesicular breath sounds, no rales or wheezes. Cardiac: Regular, tachycardic, no murmurs, gallops or rubs, JVP not raised. Abdomen: Soft, non-tender, non distended, BS audible. : Hummel catheter SKIN: No rashes, good skin turgor. Extremities: No edema, no clubbing, No cyanosis Neuro: AAO x 3, No FND. Labs Recent Labs 03/21/91702/02/25 0600 02/03/25 0645 WBC 10.6 9.6 8.2 RBC 3.59* 3.48* 3.55* HGB 8.8* 8.5* 8.8* HCT 28.5* 27.5* 28.5* MCV 79.4* 79.0* 80.3* MCH 24.5* 24.4* 24.8* MCHC 30.9 30.9 30.9 RDW 15.1* 15.0* 14.7* PLT 319 283 275 MPV 9.3 9.6 9.6 BMP: Recent Labs 02/01/25 0902/02/25 0600 02/03/25 0645 NA 140 139 136 K 4.0 4.1 4.4 CL 107 105 106 CO2 21 21 18* BUN 36* 30* 27* CREATININE 4.1* 3.2* 2.5* GLUCOSE 108* 111* 98 CALCIUM 8.0* 7.9* 8.5* Magnesium: Recent Labs 02/02/2559902/03/25 0645 MG 1.5* 2.0 Urinalysis/Chemistries Lab Results Component Value Date/Time NITRU NEGATIVE 01/31/2025 09:52 AM COLORU Red 01/31/2025 09:52 AM PHUR 7.0 01/31/2025 09:52 AM WBCUA 2 TO 5 01/31/2025 09:52 AM RBCUA TOO NUMEROUS TO COUNT 01/31/2025 09:52 AM LEUKOCYTESUR TRACE 01/31/2025 09:52 AM UROBILINOGEN Normal 01/31/2025 09:52 AM BILIRUBINUR NEGATIVE 01/31/2025 09:52 AM GLUCOSEU NEGATIVE 01/31/2025 09:52 AM KETUA NEGATIVE 01/31/2025 09:52 AM Radiology US RENAL COMPLETE Result Date: 01/30/2025 Mild to moderate bilateral hydronephrosis. The kidneys appear otherwise sonographically normal. XR CHEST PORTABLE Result Date: 01/30/2025 Right jugular central venous catheter terminates in the right atrium Bandlike opacity left parahilar region suggesting subsegmental atelectasis Assessment Acute Kidney Injury most likely secondary to obstructive uropathy, baseline creatinine as of 2022 was normal at 0.9. Severe hyperkalemia -resolved. Metabolic acidosis -improving. History of metastatic prostate cancer status post treatment. Obstructive uropathy: Status post attempted but unsuccessful bilateral ureteral stent placement. Plan for PCN tubes bilaterally with IR on 02/04/2025 History of left hip fracture with hemiarthroplasty in February 2021 and subsequent development of severe necrotizing wound infection of the left thigh with requirement of skin grafting Hypomagnesemia Current everyday smoking status Plan iHD on hold. No acute need for hemodialysis today. Continue to reassess daily Start low-dose beta-katherine Bilateral PCN tubes planned for tomorrow with IR as stent placement was unsuccessful with urology Continue normal saline at 100 mL an hour Strict I/os Avoid nephrotoxic meds BMP in a.m. Following Nutrition Renal Diet Thank you. Please call with any questions. KENTON Zamorano NP [facility]. Attending Physician Statement I have discussed the care of Allen Kearns, including pertinent history and exam findings with the resident/fellow. I have reviewed the nance elements of all parts of the encounter with the resident/fellow. I have seen and examined the patient with the resident/fellow. I agree with the assessment and plan and status of the problem list as documented. Patient seen and examined He is without any acute issues other than the fact that the Hummel catheter bothers him. There has been impressive improvement in his renal function with Hummel decompression and his serum creatinine is now down to 2.5. He was admitted with a serum creatinine of around 13. His other electrolytes look reasonably good as well. Last 24-hour urine output was 2.8 L. I believe he only got 1 hemodialysis treatment. Urology attempted bilateral ureteric stent placements unsuccessfully so. He is scheduled for rt PCN with IR tomorrow. Decrease IV fluids to 60 mL an hour Maximo France MD , MD Images from the original note were not included. [facility] Office: [phone] Jose Roberto Child DO, Dominic Clay DO, Harrison Arciniega DO, Santos Spence DO, Lennie Martino MD, Jessica Uribna MD, Shayy Hernández MD, Tiffanie Russo MD, Rickey Hardy MD, Ger Philip MD, Carl Arvizu MD, Dwight Acevedo DO, Radha Easley MD, Edy Villanueva MD, Kaushik Child DO, Brandee Beaulieu MD, Rhys Leigh DO, Saira Solorzano MD, Jerri Giles MD, Genoveva Ellsworth MD, Vinnie Bustillos MD, Glenn Diego MD, Hai Argueta MD, Manuela Griffin MD, Gabriele Farias MD, Cliff Brown MD, Cammy Mendosa MD, Valente Ocampo DO, Saud Lynne MD, Dwight Gamble MD, Marcus Gamble MD, Angela Martin, TECHNICAL INSTRUCTOR, Susan Ribera, TECHNICAL INSTRUCTOR, Valente Mello, TECHNICAL INSTRUCTOR, Libby Claire, DNP, Carmela Kilpatrick, TECHNICAL INSTRUCTOR, Britney Choudhury, TECHNICAL INSTRUCTOR, Clau Verma, TECHNICAL INSTRUCTOR, Velia Castillo, TECHNICAL INSTRUCTOR, Lidia Mathews, PA-C, Kenisha Strong, TECHNICAL INSTRUCTOR, Cathy Jimenez, TECHNICAL INSTRUCTOR, Leah Ny, TECHNICAL INSTRUCTOR, Rebecca Perales, TECHNICAL INSTRUCTOR, Yvette Calderon, TECHNICAL INSTRUCTOR, Selena Breaux, RECORDS TECHNICIAN, Kady Hoffman, TECHNICAL INSTRUCTOR, Roxanne Lo, TECHNICAL INSTRUCTOR, Rosy Xavier, TECHNICAL INSTRUCTOR [facility] IN-PATIENT SERVICE [facility] Progress Note 02/03/2025 8:54 AM Name: Allen Kearns Acct: [id number] Room: Day: 4 Admit Date: 01/30/2025 4:04 AM PCP: German Davila DO Code Status: Full Code Subjective: C/C: Urinary Retention. Interval History Status: improved. Vitals reviewed, Afebrile and hemodynamically stable. Saturating well on room air. Labs reviewed, BUN and creatinine improving 27 and 2.5 respectively but improving, leukocytosis resolving, hemoglobin down trending 8.5, platelets down trending but adequate. Overnight patient had no significant events. On examination patient resting comfortably in bed. Status post cystoscopy with bilateral retrograde pyelogram on 02/01/2025. Urology with plan for IR placement of right nephrostomy tube with antegrade stent if possible. Unfortunately not likely to be done until Tuesday. No complaints. Brief History: This is a 59-year-old male with a significant past medical history of metastatic prostate cancer who initially presented to [facility] facility for urinary retention. He states over the past week he noticed it became increasingly more difficult to urinate to the point where he was only urinating while sleeping with accidents. Complained of suprapubic abdominal pain. At [facility] facility he was found to be hyperkalemic 6.9 and Hummel catheter was placed draining [address] imaging demonstrated bilateral hydronephrosis and hydroureter with a 4 mm stone in the distal right ureter just proximal to the ureteral vesicular junction. He was transferred to [facility] ICU for evaluation. He was evaluated by urology with plan to maintain Hummel catheter for minimum 1 week due to high-volume urinary retention. Nephrology was consulted and patient was ultimately started on hemodialysis due to hyperkalemia. He improved and was transferred out of medical ICU. Urology took patient to the OR for cystoscopy with right ureteral stent placement on 01/31/2025 > unfortunately patient was taken to OR but procedure was canceled and rescheduled for 02/01/25. Status post cystoscopy with bilateral retrograde pyelogram on 02/01/2025 with recommendations from urology for IR right nephrostomy tube placement with antegrade stent if possible. Review of Systems: Constitutional: negative for chills, fevers, sweats Respiratory: negative for cough, dyspnea on exertion, shortness of breath, wheezing Cardiovascular: negative for chest pain, chest pressure/discomfort, lower extremity edema, palpitations Gastrointestinal: Positive for abdominal pain intermittently. Negative for constipation, diarrhea, nausea, vomiting Neurological: negative for dizziness, headache Medications: Allergies: Allergies Allergen Reactions Hydrocodone-Acetaminophen Current Meds: Scheduled Meds: insulin lispro 0-4 Units SubCUTAneous 4x Daily AC & HS sodium chloride flush 5-40 mL IntraVENous 2 times per day nicotine 1 patch TransDERmal Daily tamsulosin 0.4 mg Oral Daily heparin (porcine) 1,000 Units IntraCATHeter Once heparin (porcine) 1,000 Units IntraCATHeter Once cefepime 1,000 mg IntraVENous Q24H Continuous Infusions: sodium chloride 25 mL/hr at 02/03/25 0752 sodium chloride 100 mL/hr at 02/03/25 0854 dextrose PRN Meds: lidocaine, sodium chloride flush, sodium chloride, potassium chloride OR potassium chloride, magnesium sulfate, ondansetron OR ondansetron, polyethylene glycol, acetaminophen OR acetaminophen, HYDROmorphone, glucose, dextrose bolus OR dextrose bolus, glucagon (rDNA), dextrose, fentanNYL, HYDROmorphone, heparin (porcine), heparin (porcine), hyoscyamine Data: Past Medical History: has a past medical history of History of prostate cancer, Necrotizing fasciitis (HCC), Pathologic fracture, and Prostate cancer metastatic to multiple sites (HCC). Social History: Family History: History reviewed. No pertinent family history. Vitals: BP (!) 142/95 Pulse 92 Temp 97.1 F (36.2 C) (Axillary) Resp 14 Ht 1.778 m (5' 10 ) Wt 69.4 kg (153 lb) SpO2 97% BMI 21.95 kg/m Temp (24hrs), Av.9 F (36.6 C), Min:97.1 F (36.2 C), Max:98.5 F (36.9 C) Recent Labs 02/02/25 0719 02/02/25 1124 02/02/25 1624 02/02/25 1916 POCGLU 111* 122* 131* 128* I/O (24Hr): Intake/Output Summary (Last 24 hours) at 02/03/2025 0854 Last data filed at 02/03/2025 0606 Gross per 24 hour Intake 2510 ml Output 5300 ml Net -2790 ml Labs: Hematology: Recent Labs 02/01/25 0918 02/01/25 1551 02/02/25 0600 02/03/25 0645 WBC 10.6 -- 9.6 8.2 RBC 3.59* -- 3.48* 3.55* HGB 8.8* -- 8.5* 8.8* HCT 28.5* -- 27.5* 28.5* MCV 79.4* -- 79.0* 80.3* MCH 24.5* -- 24.4* 24.8* MCHC 30.9 -- 30.9 30.9 RDW 15.1* -- 15.0* 14.7* PLT 319 -- 283 275 MPV 9.3 -- 9.6 9.6 INR -- 1.1 -- -- Chemistry: Recent Labs 02/01/25 0918 02/02/25 0600 02/03/25 0645 NA 140 139 136 K 4.0 4.1 4.4 CL 107 105 106 CO2 21 21 18* GLUCOSE 108* 111* 98 BUN 36* 30* 27* CREATININE 4.1* 3.2* 2.5* MG -- 1.5* 2.0 ANIONGAP 12 13 12 LABGLOM 16* 21* 29* CALCIUM 8.0* 7.9* 8.5* Recent Labs 02/01/25 1621 02/01/25 1919 02/02/25 0719 02/02/25 1124 02/02/25 1624 02/02/25 1916 POCGLU 90 213* 111* 122* 131* 128* ABG:No results found for: POCPH , PHART , PH , POCPCO2 , HCY1VSI , PCO2 , POCPO2 , PO2ART , PO2 , POCHCO3 , ZCN3DIL , HCO3 , NBEA , PBEA , BEART , BE , THGBART , THB , NBH0WKP , WDWF7VIT , C0NJHFGW , O2SAT , FIO2 Lab Results Component Value Date/Time SPECIAL Site: Urine 01/30/2025 05:19 AM Lab Results Component Value Date/Time CULTURE NO GROWTH 01/30/2025 05:19 AM Radiology: US RENAL COMPLETE Result Date: 01/30/2025 Mild to moderate bilateral hydronephrosis. The kidneys appear otherwise sonographically normal. XR CHEST PORTABLE Result Date: 01/30/2025 Right jugular central venous catheter terminates in the right atrium Bandlike opacity left parahilar region suggesting subsegmental atelectasis Physical Examination: General appearance: alert, cooperative and no distress Mental Status: oriented to person, place and time and normal affect Lungs: clear to auscultation bilaterally, normal effort Heart: intermittently tachycardic but regular rhythm, no murmur Abdomen: soft, nontender, nondistended, normal bowel sounds Extremities: no edema, redness, tenderness in the calves Skin: no gross lesions, rashes, induration Assessment: Hospital Problems Last Modified POA * (Principal) Acute renal failure 01/30/2025 Yes VALERIA (acute kidney injury) 01/30/2025 Yes Obstructive uropathy 01/30/2025 Yes Hyperkalemia 01/30/2025 Yes Metabolic acidosis 01/30/2025 Yes History of prostate cancer 01/30/2025 Yes Urinary retention 01/30/2025 Yes Plan: Acute renal failure with Severe Hyperkalemia. Secondary to obstructive uropathy. Status post Hummel catheter placement. Nephrology following. Due to severe hyperkalemia patient did require hemodialysis. Avoid nephrotoxic agents. Remains on 60 mL/h. Obstructive uropathy with 4 mm distal right ureteral stone. Urology following. Taken to the OR for cystoscopy with right ureteral stent placement 01/31/2025 but moved to 02/01/25. Status post cystoscopy with bilateral retrograde pyelogram on 02/01/2025. Urology with plan for IR placement of right nephrostomy tube with antegrade stent if possible. Unfortunately not likely to be done until Tuesday. Plan to maintain Hummel catheter for at least 1 week due to high volume urinary retention with 1.3 L removed on Hummel catheter placement. Monitoring for postobstructive diuresis. Remains on IV fluids. On Levsin for bladder spasms. Continue Flomax. Remains on cefepime. Urine culture with no growth. Will discuss discontinuation of antibiotics with urology postop following nephrostomy tube placement. High anion gap metabolic acidosis. Resolved. History of Metastatic Prostate Cancer. Continue outpatient follow-up. DVT prophylaxis: Heparin. GI prophylaxis: None. Discharge planning: Pending continued urology input as well as nephrology clearance given renal function. Rhys Leigh DO 02/03/2025 8:54 AM Urology Progress Note Subjective: Status post attempted but unsuccessful bilateral ureteral stent placement 02/01/2025 Nothing acute overnight Afebrile, vital signs stable Hummel continues to drain well,'s clear urine, 5.3 L / 24 hours Creatinine continues to nicely downtrend to 2.5 from 3.2 Vitals and Labs: Vitals: 02/02/25 2249 02/02/25 2317 02/03/25 0329 02/03/25 0330 BP: 128/88 (!) 142/95 Pulse: 92 Resp: 18 14 Temp: 98.5 F (36.9 C) 97.1 F (36.2 C) TempSrc: Oral Axillary SpO2: 95% 97% Weight: Height: I/O last 3 completed shifts: In: 6612 [P.O.:4400; I.V.:2212] Out: 9100 [Urine:9100] Recent Labs 02/01/25 0918 02/02/25 0600 02/03/25 0645 WBC 10.6 9.6 8.2 HGB 8.8* 8.5* 8.8* HCT 28.5* 27.5* 28.5* MCV 79.4* 79.0* 80.3* PLT 319 283 275 Recent Labs 02/01/25 0918 02/02/25 0600 02/03/25 0645 NA 140 139 136 K 4.0 4.1 4.4 CL 107 105 106 CO2 21 21 18* BUN 36* 30* 27* CREATININE 4.1* 3.2* 2.5* Recent Labs 01/31/25 0952 COLORU Red* PHUR 7.0 WBCUA 2 TO 5 RBCUA TOO NUMEROUS TO COUNT LEUKOCYTESUR TRACE* UROBILINOGEN Normal BILIRUBINUR NEGATIVE Physical Exam: NAD A/O x 3 RRR No accessory muscles of inspiration Abdomen soft, non-tender, non-distended. No CVA tenderness. Hummel in place. Clear yellow UOP. No calf pain. EPCs on. Machine turned on. Impression: 59 yo male with Acute renal failure with bilateral hydroureteronephrosis secondary to acute urinary retention for greater than 1.3 L, status post attempted but unsuccessful bilateral ureteral stent placement 02/01/2025 secondary to J hooking of ureters 4 mm distal right ureteral stone History of metastatic prostate cancer managed with chemo and radiation, lost to follow-up, started Firmagon 02/01/2025 Plan: Discussed with interventional radiology, plan is for right nephrostomy tube placement tomorrow 02/04/2025 N.p.o. midnight Hold any and all blood thinners Maintain Hummel catheter for maximum decompression of urinary system, having high urinary output Monitor electrolytes for any imbalances requiring replacement Levsin as needed for bladder spasms Deepali Beal DO PGY-5 8:23 AM 02/03/2025 Nephrology Progress Note Patient: Allen Kearns; 59 y.o. Location: Attending: Rhys Leigh DO Admit Date: 01/30/2025 Hospital Day: 3 Subjective History: 59-year-old male with past medical history of prostate cancer with mets to the lung and bone in 2019 status post treatment with Casodex, Lupron, Taxotere, Xtandi and Zometa x 6 cycles who presented initially to [facility] due to urinary incontinence, decreased urine output and fatigue. Patient has been treated in the outpatient setting by his PCP for possible urinary tract infection, did not feel the antibiotics were helping with his symptoms. Patient was noted to have suprapubic pain in the ED, Hummel was placed and patient put out over 1.3 L of urine within the first 10 minutes. Labs on admission demonstrated creatinine of 13, BUN of 108, and potassium of 6.9, nephrology was consulted for VALERIA and decision was made to initiate HD on 01/30/2025 Patient seen and evaluated in room, no acute events overnight Vital signs stable UOP documented at 6 L over the last 24 hours, sodium level 139, stable Creatinine improving significantly after initiation of hemodialysis IV fluids sodium chloride at 100 mL an hour continue Underwent cystoscopy with retrograde pyelogram with urology on 02/01/2025 Cefepime continues Recent Labs 01/31/25 0437 02/01/25 0918 02/02/25 0600 NA 137 140 139 K 3.9 4.0 4.1 CL 101 107 105 CO2 21 BUN 50* 36* 30* CREATININE 5.7* 4.1* 3.2* GLUCOSE 134* 108* 111* CALCIUM 8.3* 8.0* 7.9* Objective VS: BP (!) 155/88 Pulse (!) 101 Temp 98.4 F (36.9 C) (Oral) Resp 13 Ht 1.778 m (5' 10 ) Wt 69.4 kg (153 lb) SpO2 100% BMI 21.95 kg/m MAXIMUM TEMPERATURE OVER 24 HRS: Temp (24hrs), Av.1 F (36.7 C), Min:97.3 F (36.3 C), Max:98.4 F (36.9 C) 24 HR BLOOD PRESSURE RANGE: Systolic (24hrs), Av , Min:109 , Max:156 ; Diastolic (24hrs), Av, Min:62, Max:93 24 HR INTAKE/OUTPUT: Intake/Output Summary (Last 24 hours) at 02/02/2025 1018 Last data filed at 02/02/2025 0847 Gross per 24 hour Intake 5354.54 ml Output 6000 ml Net -645.46 ml WEIGHT: Patient Vitals for the past 96 hrs (Last 3 readings): Weight 02/01/25 1132 69.4 kg (153 lb) 01/30/25 1150 69.8 kg (153 lb 14.1 oz) 01/30/25 0835 69.6 kg (153 lb 7 oz) Current Medications Scheduled Meds: insulin lispro 0-4 Units SubCUTAneous 4x Daily AC & HS sodium chloride flush 5-40 mL IntraVENous 2 times per day nicotine 1 patch TransDERmal Daily tamsulosin 0.4 mg Oral Daily heparin (porcine) 1,000 Units IntraCATHeter Once heparin (porcine) 1,000 Units IntraCATHeter Once cefepime 1,000 mg IntraVENous Q24H Continuous Infusions: sodium chloride Stopped (01/31/25 0135) sodium chloride 100 mL/hr at 02/02/25 0636 dextrose PRN Meds: lidocaine, sodium chloride flush, sodium chloride, potassium chloride OR potassium chloride, magnesium sulfate, ondansetron OR ondansetron, polyethylene glycol, acetaminophen OR acetaminophen, HYDROmorphone, glucose, dextrose bolus OR dextrose bolus, glucagon (rDNA), dextrose, fentanNYL, HYDROmorphone, heparin (porcine), heparin (porcine), hyoscyamine Physical Examination General: AAO x 3, speaking in full sentences, no accessory muscle use. Chest: Bilateral vesicular breath sounds, no rales or wheezes. Cardiac: Mildly tachycardic in the low 100s, no murmurs, gallops or rubs, JVP not raised. Abdomen: Soft, non-tender, non distended, BS audible. SKIN: No rashes, good skin turgor. Extremities: No edema, no clubbing, No cyanosis Neuro: AAO x 3, No FND. Labs Recent Labs 01/31/25 0437 02/01/25 0918 02/02/25 0600 WBC 11.8* 10.6 9.6 RBC 4.08* 3.59* 3.48* HGB 9.8* 8.8* 8.5* HCT 32.1* 28.5* 27.5* MCV 78.7* 79.4* 79.0* MCH 24.0* 24.5* 24.4* MCHC 30.5 30.9 30.9 RDW 15.2* 15.1* 15.0* PLT 345 319 283 MPV 9.0 9.3 9.6 BMP: Recent Labs 01/31/25 0437 02/01/25 0918 02/02/25 0600 NA 137 140 139 K 3.9 4.0 4.1 CL 101 107 105 CO2 20 21 21 BUN 50* 36* 30* CREATININE 5.7* 4.1* 3.2* GLUCOSE 134* 108* 111* CALCIUM 8.3* 8.0* 7.9* Magnesium: Recent Labs 02/02/25 0600 MG 1.5* Urinalysis/Chemistries Lab Results Component Value Date/Time NITRU NEGATIVE 01/31/2025 09:52 AM COLORU Red 01/31/2025 09:52 AM PHUR 7.0 01/31/2025 09:52 AM WBCUA 2 TO 5 01/31/2025 09:52 AM RBCUA TOO NUMEROUS TO COUNT 01/31/2025 09:52 AM LEUKOCYTESUR TRACE 01/31/2025 09:52 AM UROBILINOGEN Normal 01/31/2025 09:52 AM BILIRUBINUR NEGATIVE 01/31/2025 09:52 AM GLUCOSEU NEGATIVE 01/31/2025 09:52 AM KETUA NEGATIVE 01/31/2025 09:52 AM Radiology US RENAL COMPLETE Result Date: 01/30/2025 Mild to moderate bilateral hydronephrosis. The kidneys appear otherwise sonographically normal. XR CHEST PORTABLE Result Date: 01/30/2025 Right jugular central venous catheter terminates in the right atrium Bandlike opacity left parahilar region suggesting subsegmental atelectasis Assessment Acute Kidney Injury most likely secondary to obstructive uropathy, baseline creatinine as of 2022 was normal at 0.9. Severe hyperkalemia -resolved. Metabolic acidosis -improving. History of metastatic prostate cancer status post treatment. History of left hip fracture with hemiarthroplasty in February 2021 and subsequent development of severe necrotizing wound infection of the left thigh with requirement of skin grafting Hypomagnesemia Plan iHD on hold. Potassium level 4.1 today. No acute need for hemodialysis today. Will continue to reassess daily Continue sodium chloride at 100 mL an hour BMP in a.m. Avoid nephrotoxic meds Following Nutrition Renal Diet/TF/1500 mL fluid rest Thank you. Please call with any questions. KENTON Zamorano NP [facility]. Attending Physician Statement I have discussed the care of Allen Kearns, including pertinent history and exam findings with the resident/fellow. I have reviewed the nance elements of all parts of the encounter with the resident/fellow. I have seen and examined the patient with the resident/fellow. I agree with the assessment and plan and status of the problem list as documented. Patient seen and examined. No new or acute issues overnight. Patient's creatinine continues to improve and is down to 3.2 today. He has an indwelling Hummel catheter. Patient is status post cystoscopy and retrograde pyelograms from yesterday. Apparently attempted but unsuccessful bilateral ureteric stent placements. During this hospitalization he did require 1 hemodialysis treatment the day after he was admitted but since then things have been improving. Patient is tentatively scheduled for a right nephrostomy tube placement Tuesday as per urology's note. Hummel to be left indwelling at this time. Following along. Maximo France MD , MD Urology Progress Note Subjective: Status post attempted but unsuccessful bilateral ureteral stent placement 02/01/2025 No acute events overnight Patient remains afebrile, vital signs stable Underwent dialysis 01/31/2025 Firmagon started 02/01/2025 Clinically appears very well Eating breakfast this morning No complaints of flank pain or abdominal pain Hummel draining clear see-through yellow urine, 6 L / 24 hours Creatinine 3.2 from 4.1 Vitals and Labs: Vitals: 02/02/25 0400 02/02/25 0630 02/02/25 0700 02/02/25 0807 BP: 109/62 127/77 (!) 155/88 Pulse: (!) 101 97 (!) 101 Resp: 18 16 14 13 Temp: 97.9 F (36.6 C) 98.4 F (36.9 C) TempSrc: Oral Oral SpO2: 95% 100% Weight: Height: I/O last 3 completed shifts: In: 8966.1 [P.O.:3630; I.V.:5237.9; IV Piggyback:98.2] Out: 9050 [Urine:9050] Recent Labs 01/31/25 0437 02/01/25 0918 02/02/25 0600 WBC 11.8* 10.6 9.6 HGB 9.8* 8.8* 8.5* HCT 32.1* 28.5* 27.5* MCV 78.7* 79.4* 79.0* PLT 345 319 283 Recent Labs 01/31/25 0437 02/01/25 0918 02/02/25 0600 NA 137 140 139 K 3.9 4.0 4.1 CL 101 107 105 CO2 20 21 21 BUN 50* 36* 30* CREATININE 5.7* 4.1* 3.2* Recent Labs 01/31/25 0952 COLORU Red* PHUR 7.0 WBCUA 2 TO 5 RBCUA TOO NUMEROUS TO COUNT LEUKOCYTESUR TRACE* UROBILINOGEN Normal BILIRUBINUR NEGATIVE Physical Exam: NAD A/O x 3 RRR No accessory muscles of inspiration Abdomen soft, non-tender, non-distended. No CVA tenderness. Hummel in place. Clear yellow UOP. No calf pain. EPCs on. Machine turned on. Impression: 59 yo male with Acute renal failure with bilateral hydroureteronephrosis secondary to acute urinary retention for greater than 1.3 L, status post attempted but unsuccessful bilateral ureteral stent placement 02/01/2025 secondary to J hooking of ureters 4 mm distal right ureteral stone History of metastatic prostate cancer managed with chemo and radiation, lost to follow-up, started Firmagon 02/01/2025 Plan: Discussed with interventional radiology, plan is for right nephrostomy tube placement this upcoming 02/04/2025 N.p.o. midnight on Tuesday night in anticipation of that procedure Hold any and all blood thinners Maintain Hummel catheter for maximum decompression of urinary system, having high urinary output Monitor electrolytes for any imbalances requiring replacement Levsin as needed for bladder spasms Deepali Beal DO PGY-5 9:41 AM 02/02/2025 Images from the original note were not included. [facility] Office: [phone] Jose Roberto Child DO, Dominic Clay DO, Harrison Arciniega DO, Santos Spence DO, Lennie Martino MD, Jessica Urbina MD, Shayy Hernández MD, Tiffanie Russo MD, Rickey Hardy MD, Ger Philip MD, Carl Arvizu MD, Dwight Acevedo DO, Radha Easley MD, Edy Villanueva MD, Kaushik Child DO, Brandee Beaulieu MD, Rhys Leigh DO, Saira Solorzano MD, Jerri Giles MD, Genoveva Ellsworth MD, Vinnie Bustillos MD, Glenn Diego MD, Hai Argueta MD, Manuela Griffin MD, Gabriele Farias MD, Cliff Brown MD, Cammy Mendosa MD, Valente Ocampo DO, Saud Lynne MD, Dwight Gamble MD, Marcus Gamble MD, Angela Martin CNP, Susan Ribera CNP, Valente Mello CNP, Libby Claire DNP, Carmela Kilpatrick, TECHNICAL INSTRUCTOR, Britney Choudhury, TECHNICAL INSTRUCTOR, Clau Verma, TECHNICAL INSTRUCTOR, Velia Castillo, TECHNICAL INSTRUCTOR, Lidia Mathews PA-C, Kenisha Strong, TECHNICAL INSTRUCTOR, Cathy Jimenez, TECHNICAL INSTRUCTOR, Leah Ny, TECHNICAL INSTRUCTOR, Rebecca Perales, TECHNICAL INSTRUCTOR, Yvette Calderon, TECHNICAL INSTRUCTOR, Selena Breaux, [facility], Kady Hoffman, TECHNICAL INSTRUCTOR, Roxanne Lo, TECHNICAL INSTRUCTOR, Rosy Xavier, TECHNICAL INSTRUCTOR [facility] IN-PATIENT SERVICE [facility] Progress Note 02/02/2025 8:39 AM Name: Allen Kearns Acct: [id number] Room: Day: 3 Admit Date: 01/30/2025 4:04 AM PCP: German Davila, Code Status: Full Code Subjective: C/C: Urinary Retention. Interval History Status: improved. Vitals reviewed, Afebrile and hemodynamically stable. Saturating well on 2 L NC. Labs reviewed, BUN and creatinine improving 30 and 3.2 respectively but improving, leukocytosis resolving, hemoglobin down trending 8.5, platelets down trending but adequate. Overnight patient had no significant events. On examination patient resting comfortably in bed. Status post cystoscopy with bilateral retrograde pyelogram on 02/01/2025. Urology with plan for IR placement of right nephrostomy tube with antegrade stent if possible. Unfortunately not likely to be done until Tuesday. Brief History: This is a 59-year-old male with a significant past medical history of metastatic prostate cancer who initially presented to [facility] for urinary retention. He states over the past week he noticed it became increasingly more difficult to urinate to the point where he was only urinating while sleeping with accidents. Complained of suprapubic abdominal pain. At [facility] facility he was found to be hyperkalemic 6.9 and Hummel catheter was placed draining [address] imaging demonstrated bilateral hydronephrosis and hydroureter with a 4 mm stone in the distal right ureter just proximal to the ureteral vesicular junction. He was transferred to [facility] ICU for evaluation. He was evaluated by urology with plan to maintain Hummel catheter for minimum 1 week due to high-volume urinary retention. Nephrology was consulted and patient was ultimately started on hemodialysis due to hyperkalemia. He improved and was transferred out of medical ICU. Urology took patient to the OR for cystoscopy with right ureteral stent placement on 01/31/2025 > unfortunately patient was taken to OR but procedure was canceled and rescheduled for 02/01/25. Status post cystoscopy with bilateral retrograde pyelogram on 02/01/2025 with recommendations from urology for IR right nephrostomy tube placement with antegrade stent if possible. Review of Systems: Constitutional: negative for chills, fevers, sweats Respiratory: negative for cough, dyspnea on exertion, shortness of breath, wheezing Cardiovascular: negative for chest pain, chest pressure/discomfort, lower extremity edema, palpitations Gastrointestinal: Positive for abdominal pain intermittently. Negative for constipation, diarrhea, nausea, vomiting Neurological: negative for dizziness, headache Medications: Allergies: Allergies Allergen Reactions Hydrocodone-Acetaminophen Current Meds: Scheduled Meds: insulin lispro 0-4 Units SubCUTAneous 4x Daily AC & HS sodium chloride flush 5-40 mL IntraVENous 2 times per day nicotine 1 patch TransDERmal Daily tamsulosin 0.4 mg Oral Daily heparin (porcine) 1,000 Units IntraCATHeter Once heparin (porcine) 1,000 Units IntraCATHeter Once cefepime 1,000 mg IntraVENous Q24H Continuous Infusions: sodium chloride Stopped (01/31/25 0135) sodium chloride 100 mL/hr at 02/02/25 0636 dextrose PRN Meds: lidocaine, sodium chloride flush, sodium chloride, potassium chloride OR potassium chloride, magnesium sulfate, ondansetron OR ondansetron, polyethylene glycol, acetaminophen OR acetaminophen, HYDROmorphone, glucose, dextrose bolus OR dextrose bolus, glucagon (rDNA), dextrose, fentanNYL, HYDROmorphone, heparin (porcine), heparin (porcine), hyoscyamine Data: Past Medical History: has a past medical history of History of prostate cancer, Necrotizing fasciitis (HCC), Pathologic fracture, and Prostate cancer metastatic to multiple sites (HCC). Social History: Family History: History reviewed. No pertinent family history. Vitals: BP (!) 155/88 Pulse (!) 101 Temp 98.4 F (36.9 C) (Oral) Resp 13 Ht 1.778 m (5' 10 ) Wt 69.4 kg (153 lb) SpO2 100% BMI 21.95 kg/m Temp (24hrs), Av.1 F (36.7 C), Min:97.3 F (36.3 C), Max:98.4 F (36.9 C) Recent Labs 02/01/25 1105 02/01/25 1621 02/01/25 1919 02/02/25 0719 POCGLU 107 90 213* 111* I/O (24Hr): Intake/Output Summary (Last 24 hours) at 02/02/2025 0839 Last data filed at 02/02/2025 0636 Gross per 24 hour Intake 5004.54 ml Output 6000 ml Net -995.46 ml Labs: Hematology: Recent Labs 01/31/25 0437 02/01/25 0918 02/01/25 1551 02/02/25 0600 WBC 11.8* 10.6 -- 9.6 RBC 4.08* 3.59* -- 3.48* HGB 9.8* 8.8* -- 8.5* HCT 32.1* 28.5* -- 27.5* MCV 78.7* 79.4* -- 79.0* MCH 24.0* 24.5* -- 24.4* MCHC 30.5 30.9 -- 30.9 RDW 15.2* 15.1* -- 15.0* PLT 345 319 -- 283 MPV 9.0 9.3 -- 9.6 INR -- -- 1.1 -- Chemistry: Recent Labs 01/30/25 1426 01/31/25 0437 02/01/25 0918 02/02/25 0600 NA 137 137 140 139 K 4.0 3.9 4.0 4.1 CL 98 101 107 105 CO2 20 20 21 21 GLUCOSE 136* 134* 108* 111* BUN 48* 50* 36* 30* CREATININE 6.2* 5.7* 4.1* 3.2* MG -- -- -- 1.5* ANIONGAP 19* 16 12 13 LABGLOM 10* 11* 16* 21* CALCIUM 9.0 8.3* 8.0* 7.9* PSA 504.00* -- -- -- TROPHS 86* -- -- -- Recent Labs 01/31/25 1938 02/01/25 0720 02/01/25 1105 02/01/25 1621 02/01/25 1919 02/02/25 0719 POCGLU 165* 120* 107 90 213* 111* ABG:No results found for: POCPH , PHART , PH , POCPCO2 , KYB7VNY , PCO2 , POCPO2 , PO2ART , PO2 , POCHCO3 , VBA4HAK , HCO3 , NBEA , PBEA , BEART , BE , THGBART , THB , [id number] , KAER3VPL , P3WLAKXK , O2SAT , FIO2 Lab Results Component Value Date/Time SPECIAL Site: Urine 01/30/2025 05:19 AM Lab Results Component Value Date/Time CULTURE NO GROWTH 01/30/2025 05:19 AM Radiology: US RENAL COMPLETE Result Date: 01/30/2025 Mild to moderate bilateral hydronephrosis. The kidneys appear otherwise sonographically normal. XR CHEST PORTABLE Result Date: 01/30/2025 Right jugular central venous catheter terminates in the right atrium Bandlike opacity left parahilar region suggesting subsegmental atelectasis Physical Examination: General appearance: alert, cooperative and no distress Mental Status: oriented to person, place and time and normal affect Lungs: clear to auscultation bilaterally, normal effort Heart: intermittently tachycardic but regular rhythm, no murmur Abdomen: soft, nontender, nondistended, normal bowel sounds Extremities: no edema, redness, tenderness in the calves Skin: no gross lesions, rashes, induration Assessment: Hospital Problems Last Modified POA * (Principal) Acute renal failure 01/30/2025 Yes VALERIA (acute kidney injury) 01/30/2025 Yes Obstructive uropathy 01/30/2025 Yes Hyperkalemia 01/30/2025 Yes Metabolic acidosis 01/30/2025 Yes History of prostate cancer 01/30/2025 Yes Urinary retention 01/30/2025 Yes Plan: Acute renal failure with Severe Hyperkalemia. Secondary to obstructive uropathy. Status post Hummel catheter placement. Nephrology following. Due to severe hyperkalemia patient did require hemodialysis. Avoid nephrotoxic agents. Remains on 100 mL/h. Obstructive uropathy with 4 mm distal right ureteral stone. Urology following. Taken to the OR for cystoscopy with right ureteral stent placement 01/31/2025 but moved to 02/01/25. Status post cystoscopy with bilateral retrograde pyelogram on 02/01/2025. Urology with plan for IR placement of right nephrostomy tube with antegrade stent if possible. Unfortunately not likely to be done until Tuesday. Plan to maintain Hummel catheter for at least 1 week due to high volume urinary retention with 1.3 L removed on Hummel catheter placement. Monitoring for postobstructive diuresis. Remains on IV fluids. On Levsin for bladder spasms. Continue Flomax. Remains on cefepime. Urine culture with no growth. Will discuss discontinuation of antibiotics with urology postop following nephrostomy tube placement. High anion gap metabolic acidosis. Resolved. History of Metastatic Prostate Cancer. Continue outpatient follow-up. DVT prophylaxis: Currently on no anticoagulation. Will confirm clearance for anticoagulation with urology postop > as of now urology requesting to hold any and all anticoagulation pending IR evaluation . GI prophylaxis: None. Discharge planning: Pending continued urology input as well as nephrology clearance given renal function. Rhys Leigh DO 02/02/2025 8:39 AM Images from the original note were not included. [facility] Office: [phone] Jose Roberto Child DO, Dominic Clay DO, Harrison Arciniega DO, Santos Spence DO, Lennie Martino MD, Jessica Urbina MD, Shayy Hernández MD, Tiffanie Russo MD, Rickey Hardy MD, Ger Philip MD, Carl Arvizu MD, Dwight Acevedo DO, Radha Easley MD, Edy Villanueva MD, Kaushik Child DO, Brandee Beaulieu MD, Rhys Leigh DO, Saira Solorzano MD, Jerri Giles MD, Genoveva Ellsworth MD, Vinnie Bustillos MD, Glenn Diego MD, Hai Argueta MD, Manuela Griffin MD, Gabriele Farias MD, Cliff Brown MD, Cammy Mendosa MD, Valente Ocampo DO, Saud Lynne MD, Dwight Gamble MD, Marcus Gamble MD, Angela Martin, TECHNICAL INSTRUCTOR, Susan Ribera, TECHNICAL INSTRUCTOR, Valente Mello, TECHNICAL INSTRUCTOR, Libby Claire, [facility], Carmela Kilpatrick, TECHNICAL INSTRUCTOR, Britney Choudhury, TECHNICAL INSTRUCTOR, Clau Verma, TECHNICAL INSTRUCTOR, Velia Castillo, TECHNICAL INSTRUCTOR, Lidia Mathews PA-C, Kenisha Strong, TECHNICAL INSTRUCTOR, Cathy Jimenez, TECHNICAL INSTRUCTOR, Leah Ny, TECHNICAL INSTRUCTOR, Rebecca Perales, TECHNICAL INSTRUCTOR, Yvette Calderon, [facility], Selena Breaux, [facility], Kady Hoffman, TECHNICAL INSTRUCTOR, Roxanne Lo, TECHNICAL INSTRUCTOR, Rosy Xavier, TECHNICAL INSTRUCTOR [facility] IN-PATIENT SERVICE [facility] Progress Note 02/01/2025 10:54 AM Name: Allen Kearns Acct: [id number] Room: Day: 2 Admit Date: 01/30/2025 4:04 AM PCP: German Davila DO Code Status: Full Code Subjective: C/C: Urinary Retention. Interval History Status: improved. Vitals reviewed, Afebrile and hemodynamically stable. Saturating well on 2 L NC. Labs reviewed, BUN and creatinine improving 36 and 4.1 respectively but improving, leukocytosis resolving, hemoglobin down trending 8.8, platelets down trending but stable. Overnight patient had no significant events. On examination patient resting comfortably in chair at bedside. Complained of left calf pain but repositioned in chair and states resolved. No tenderness. No Sanam sign. Plan for Stent today. Brief History: This is a 59-year-old male with a significant past medical history of metastatic prostate cancer who initially presented to [facility] facility for urinary retention. He states over the past week he noticed it became increasingly more difficult to urinate to the point where he was only urinating while sleeping with accidents. Complained of suprapubic abdominal pain. At [facility] facility he was found to be hyperkalemic 6.9 and Hummel catheter was placed draining [address] imaging demonstrated bilateral hydronephrosis and hydroureter with a 4 mm stone in the distal right ureter just proximal to the ureteral vesicular junction. He was transferred to [facility] ICU for evaluation. He was evaluated by urology with plan to maintain Hummel catheter for minimum 1 week due to high-volume urinary retention. Nephrology was consulted and patient was ultimately started on hemodialysis due to hyperkalemia. He improved and was transferred out of medical ICU. Urology took patient to the OR for cystoscopy with right ureteral stent placement on 01/31/2025 > unfortunately patient was taken to OR but procedure was canceled and rescheduled for 02/01/25. Review of Systems: Constitutional: negative for chills, fevers, sweats Respiratory: negative for cough, dyspnea on exertion, shortness of breath, wheezing Cardiovascular: negative for chest pain, chest pressure/discomfort, lower extremity edema, palpitations Gastrointestinal: negative for abdominal pain, constipation, diarrhea, nausea, vomiting Neurological: negative for dizziness, headache Medications: Allergies: Allergies Allergen Reactions Hydrocodone-Acetaminophen Current Meds: Scheduled Meds: degarelix 240 mg SubCUTAneous Once sodium chloride flush 5-40 mL IntraVENous 2 times per day nicotine 1 patch TransDERmal Daily tamsulosin 0.4 mg Oral Daily heparin (porcine) 1,000 Units IntraCATHeter Once heparin (porcine) 1,000 Units IntraCATHeter Once cefepime 1,000 mg IntraVENous Q24H Continuous Infusions: sodium chloride Stopped (01/31/25 0135) sodium chloride 100 mL/hr at 02/01/25 1044 dextrose PRN Meds: lidocaine, sodium chloride flush, sodium chloride, potassium chloride OR potassium chloride, magnesium sulfate, ondansetron OR ondansetron, polyethylene glycol, acetaminophen OR acetaminophen, HYDROmorphone, glucose, dextrose bolus OR dextrose bolus, glucagon (rDNA), dextrose, fentanNYL, HYDROmorphone, heparin (porcine), heparin (porcine), hyoscyamine Data: Past Medical History: has a past medical history of History of prostate cancer, Necrotizing fasciitis (HCC), Pathologic fracture, and Prostate cancer metastatic to multiple sites (HCC). Social History: Family History: History reviewed. No pertinent family history. Vitals: BP (!) 131/92 Pulse 97 Temp 98.1 F (36.7 C) (Oral) Resp 18 Ht 1.778 m (5' 10 ) Wt 69.8 kg (153 lb 14.1 oz) SpO2 98% BMI 22.08 kg/m Temp (24hrs), Av.1 F (36.7 C), Min:96.8 F (36 C), Max:98.5 F (36.9 C) Recent Labs 01/31/25 1212 01/31/25 1753 01/31/25 1938 02/01/25 0720 POCGLU 127* 131* 165* 120* I/O (24Hr): Intake/Output Summary (Last 24 hours) at 02/01/2025 1054 Last data filed at 02/01/2025 0615 Gross per 24 hour Intake 3961.55 ml Output 4900 ml Net -938.45 ml Labs: Hematology: Recent Labs 01/30/25 04401/31/25 0437 02/01/25 0918 WBC 12.1* 11.8* 10.6 RBC 4.05* 4.08* 3.59* HGB 9.9* 9.8* 8.8* HCT 32.1* 32.1* 28.5* MCV 79.3* 78.7* 79.4* MCH 24.4* 24.0* 24.5* MCHC 30.8 30.5 30.9 RDW 15.3* 15.2* 15.1* PLT 374 345 319 MPV 8.8 9.0 9.3 Chemistry: Recent Labs 01/30/25 0449 01/30/25 0559 01/30/25 1426 01/31/25 0437 02/01/25 0918 NA 141 -- 137 137 140 K 7.1* -- 4.0 3.9 4.0 CL 109* -- 98 101 107 CO2 10* -- 20 20 21 GLUCOSE 99 -- 136* 134* 108* BUN 108* -- 48* 50* 36* CREATININE 13.0* -- 6.2* 5.7* 4.1* ANIONGAP 22* -- 19* 16 12 LABGLOM 4* -- 10* 11* 16* CALCIUM 8.6 -- 9.0 8.3* 8.0* PSA -- -- 504.00* -- -- TROPHS 45* 53* 86* -- -- Recent Labs 01/31/25 0820 01/31/25 1212 01/31/25 1753 01/31/25 1938 02/01/25 0720 POCGLU 131* 127* 131* 165* 120* ABG:No results found for: POCPH , PHART , PH , POCPCO2 , DAF6VYD , PCO2 , POCPO2 , PO2ART , PO2 , POCHCO3 , QOD8TSR , HCO3 , NBEA , PBEA , BEART , BE , THGBART , THB , URV6NXF , GPHU9QGN , X2WHOYGH , O2SAT , FIO2 Lab Results Component Value Date/Time SPECIAL Site: Urine 01/30/2025 05:19 AM Lab Results Component Value Date/Time CULTURE NO GROWTH 01/30/2025 05:19 AM Radiology: US RENAL COMPLETE Result Date: 01/30/2025 Mild to moderate bilateral hydronephrosis. The kidneys appear otherwise sonographically normal. XR CHEST PORTABLE Result Date: 01/30/2025 Right jugular central venous catheter terminates in the right atrium Bandlike opacity left parahilar region suggesting subsegmental atelectasis Physical Examination: General appearance: alert, cooperative and no distress Mental Status: oriented to person, place and time and normal affect Lungs: clear to auscultation bilaterally, normal effort Heart: intermittently tachycardic but regular rhythm, no murmur Abdomen: soft, nontender, nondistended, normal bowel sounds Extremities: no edema, redness, tenderness in the calves Skin: no gross lesions, rashes, induration Assessment: Hospital Problems Last Modified POA * (Principal) Acute renal failure 01/30/2025 Yes VALERIA (acute kidney injury) 01/30/2025 Yes Obstructive uropathy 01/30/2025 Yes Hyperkalemia 01/30/2025 Yes Metabolic acidosis 01/30/2025 Yes History of prostate cancer 01/30/2025 Yes Urinary retention 01/30/2025 Yes Plan: Acute renal failure with Severe Hyperkalemia. Secondary to obstructive uropathy. Status post Hummel catheter placement. Nephrology following. Due to severe hyperkalemia patient did require hemodialysis. Avoid nephrotoxic agents. Remains on 100 mL/h. Obstructive uropathy with 4 mm distal right ureteral stone. Urology following. Taken to the OR for cystoscopy with right ureteral stent placement 01/31/2025 but moved to 02/01/25. Plan to maintain Hummel catheter for at least 1 week due to high volume urinary retention with 1.3 L removed on Hummel catheter placement. Monitoring for postobstructive diuresis. Remains on IV fluids. On Levsin for bladder spasms. Continue Flomax. Remains on cefepime. Urine culture with no growth. Will discuss discontinuation of antibiotics with urology postop. High anion gap metabolic acidosis. Resolved. History of Metastatic Prostate Cancer. Continue outpatient follow-up. DVT prophylaxis: Currently on no anticoagulation. Will confirm clearance for anticoagulation with urology postop. GI prophylaxis: None. Discharge planning: Pending continued urology input as well as nephrology clearance given renal function. Rhys Leigh DO 02/01/2025 10:54 AM 1930 Per pharmacy subQ chemo med out of stock, will be restocked tomorrow. Pharmacist says not to jenaro med as not-given, leave as is in MAR. Care ongoing. Renal Progress Note Patient : Allen Kearns; 59 y.o. Location: Attending: Rhys Leigh DO Admit Date: 01/30/2025 Hospital Day: 1 Subjective: Patient seen and examined at bedside, heart rate elevated at 110, vital signs otherwise stable, saturating well on room air. Patient was moved out of the ICU overnight. Patient underwent first HD treatment yesterday, ran for 3 hours with no fluid removal via right IJ temp cath. Urine output documented at 5380 mL over the past 24 hours. Urology was consulted yesterday, patient is currently n.p.o. for possible cystoscopy with right ureteral stent placement. Labs reviewed. Recent Labs 01/30/25 0449 01/30/25 1426 01/31/25 0437 NA 141 137 137 K 7.1* 4.0 3.9 CL 109* 98 101 CO2 10* 20 20 BUN 108* 48* 50* CREATININE 13.0* 6.2* 5.7* GLUCOSE 99 136* 134* CALCIUM 8.6 9.0 8.3* Hgb 9.8 Renal workup reviewed. Renal ultrasound demonstrates right kidney measuring 10.8 cm, left kidney measuring 11.0 cm, mild to moderate bilateral hydronephrosis noted, normal cortical echogenicity and no evidence of intrarenal stones present. Urine CHEM reviewed, urine sodium 112, urine creatinine 26.4, no urine protein available. Serologies reviewed, SPEP pending, free light chain ratio 1.03, complements within normal limits, hepatitis panel nonreactive. Brief History reviewed. 59-year-old male with past medical history of prostate cancer with mets to the lung and bone in 2019 status post treatment with Casodex, Lupron, Taxotere, Xtandi and Zometa x 6 cycles who presented initially to [facility] due to urinary incontinence, decreased urine output and fatigue. Patient has been treated in the outpatient setting by his PCP for possible urinary tract infection, did not feel the antibiotics were helping with his symptoms. Patient was noted to have suprapubic pain in the ED, Hummel was placed and patient put out over 1.3 L of urine within the first 10 minutes. Labs on admission demonstrated creatinine of 13, BUN of 108, and potassium of 6.9, nephrology was consulted for VALERIA and decision was made to initiate HD on 01/30/2025. Outpatient Medications: No medications prior to admission. Current Medications: Scheduled Meds: sodium chloride flush 5-40 mL IntraVENous 2 times per day nicotine 1 patch TransDERmal Daily tamsulosin 0.4 mg Oral Daily heparin (porcine) 1,000 Units IntraCATHeter Once heparin (porcine) 1,000 Units IntraCATHeter Once cefepime 1,000 mg IntraVENous Q24H sodium zirconium cyclosilicate 10 g Oral Once Continuous Infusions: sodium chloride 10 mL/hr at 01/30/25 2248 sodium chloride 100 mL/hr at 01/31/25 0235 dextrose Input/Output: I/O last 3 completed shifts: In: 2840.2 [P.O.:540; I.V.:1854.2; IV Piggyback:146] Out: 8620 [Urine:8320]. Patient Vitals for the past 96 hrs (Last 3 readings): Weight 01/30/25 1150 69.8 kg (153 lb 14.1 oz) 01/30/25 0835 69.6 kg (153 lb 7 oz) 01/30/25 0732 73.1 kg (161 lb 2.5 oz) Vital Signs: Temperature: Temp: 98.2 F (36.8 C) TMax: Temp (24hrs), Av.3 F (36.8 C), Min:98 F (36.7 C), Max:98.9 F (37.2 C) Respirations: Respirations: 14 Pulse: Pulse: (!) 102 BP: BP: (!) 149/102 BP Range: Systolic (24hrs), Av , Min:113 , Max:163 Diastolic (24hrs), Av, Min:88, Max:109 Physical Examination: General: AO x3, speaking in full sentences, no accessory muscle use. HEENT: Atraumatic, normocephalic, no throat congestion, moist mucosa. Eyes: PERRLA Neck: Supple Chest: Bilateral breath sounds clear, no crackles or wheezes. Cardiac: S1 S2 RR, no murmurs, gallops or rubs. Abdomen: Soft, non-tender, no masses or organomegaly, BS audible. : Hummel catheter in place with mild hematuria noted. Neuro: AAO x 3, No FND. SKIN: No rashes, abrasions, or ecchymoses, good skin turgor. Extremities: No edema. Labs: Recent Labs 01/30/25 04401/31/25 0437 WBC 12.1* 11.8* RBC 4.05* 4.08* HGB 9.9* 9.8* HCT 32.1* 32.1* MCV 79.3* 78.7* MCH 24.4* 24.0* MCHC 30.8 30.5 RDW 15.3* 15.2* PLT 374 345 MPV 8.8 9.0 BMP: Recent Labs 01/30/25 0449 01/30/25 1426 01/31/25 0437 NA 141 137 137 K 7.1* 4.0 3.9 CL 109* 98 101 CO2 10* 20 20 BUN 108* 48* 50* CREATININE 13.0* 6.2* 5.7* GLUCOSE 99 136* 134* CALCIUM 8.6 9.0 8.3* SPEP: Lab Results Component Value Date/Time ALBCAL PENDING 01/30/2025 02:26 PM ALBPCT PENDING 01/30/2025 02:26 PM A1PCT PENDING 01/30/2025 02:26 PM A2PCT PENDING 01/30/2025 02:26 PM BETAPCT PENDING 01/30/2025 02:26 PM GAMGLOB PENDING 01/30/2025 02:26 PM GGPCT PENDING 01/30/2025 02:26 PM PATH PENDING 01/30/2025 02:26 PM C3: Lab Results Component Value Date/Time C3 162 01/30/2025 02:26 PM C4: Lab Results Component Value Date/Time C4 31 01/30/2025 02:26 PM Hep BsAg: Lab Results Component Value Date/Time HEPBSAG NONREACTIVE 01/30/2025 08:45 AM Hep C AB: Lab Results Component Value Date/Time HEPCAB NONREACTIVE 01/30/2025 08:45 AM Urinalysis/Chemistries: Radiology: Reviewed. Assessment: Acute Kidney Injury most likely secondary to obstructive uropathy, baseline creatinine as of 2022 was normal at 0.9. Severe hyperkalemia -resolved. Metabolic acidosis -improving. History of metastatic prostate cancer status post treatment. History of left hip fracture with hemiarthroplasty in February 2021 and subsequent development of severe necrotizing wound infection of the left thigh with requirement of skin grafting. Plan: Will discuss timing of any further HD treatments with Dr. France. Potassium has now normalized at 3.9. Continue strict intake and output. Await urology plan. BMP in AM. Daily weights. Will follow. Nutrition Please ensure that patient is on a renal diet/TF. Avoid nephrotoxic drugs/contrast exposure. Althea Mitchell APRN-[facility] This note is created with the assistance of a speech-recognition program. While intending to generate a document that actually reflects the content of the visit, no guarantees can be provided that every mistake has been identified and corrected by editing. Attending Physician Statement I have discussed the care of Allen Kearns, including pertinent history and exam findings with the resident/fellow. I have reviewed the nance elements of all parts of the encounter with the resident/fellow. I have seen and examined the patient with the resident/fellow. I agree with the assessment and plan and status of the problem list as documented. Patient seen and examined . He required 1 hemodialysis treatment because of a potassium of 7.1 and a creatinine of 13. Since Hummel catheter insertion last 24-hour urine output is about 5 L. His serum creatinine is down to 5.7 and his potassium has corrected to 3.9. Urology has evaluated the patient and I think he is going to require cystoscopy and right ureteric stent placement No dialysis planned for today Volume status looks better. Follow-up labs for tomorrow ordered Maximo France MD , 0300 Patient arrived to unit via bed with charted belongings, report received from Maribel CHERY. Assuming care. 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 Asked patient if it is possible a family member took it home and he stated yes. Called MICU and spoke to charge nurse who checked patient's old room and belongings were not present. Charge nurse stated family had brought and removed several items while patient was on their unit. Care ongoing. Patient transfer via ICU bed @ 0215. On monitor. All belongings taken. All questions answered. Critical care team - Resident sign-out to medicine service Date and time: 01/31/2025 1:04 AM Patient's name: Allen Kearns Patient's account/billing number: [id number] Patient's Date of : 1965 Age: 59 y.o. Date of Admission: 01/30/2025 4:04 AM Length of stay during current admission: 1 Primary Care Physician: German Davila DO Code Status: Full Code Mode of physician to physician communication: [] Via telephone [] In person Date and time of sign-out: 01/31/2025 1:04 AM Accepting Internal Medicine [place]: Ms. Teresita Oliveira NP Accepting Medicine team: IM Team Intermed Accepting team's attending: Dr. Ocampo Patient's current ICU Bed: 3011 Patient's assigned bed on floor: 2023 [] Med-Surg Monitored [x] Step-down [] Psychiatry ICU [] Psych floor Reason for ICU admission: VALERIA with hyperkalemia ICU course summary: Patient initially presented to [facility] facility with difficulty in voiding. Has a history of prostate cancer in 2019. Patient was found to have VALERIA with hyperkalemia 7.1, USG renal showed bilateral hydronephrosis. Patient had a Hummel placed with 1.3 L urine out and has been making good urine. Nephrology and urology are following. Urology recommended repeat ultrasound in 2 days to look for resolution of hydronephrosis. Procedures during patient's ICU stay: None Current Vitals: BP 113/88 Pulse 99 Temp 98.1 F (36.7 C) (Oral) Resp 21 Ht 1.778 m (5' 10 ) Wt 69.8 kg (153 lb 14.1 oz) SpO2 94% BMI 22.08 kg/m Cultures: Blood cultures: [] None drawn [x] Negative [] Positive (Details: ) Urine Culture: [] None drawn [x] Negative [] Positive (Details: ) Sputum Culture: [] None drawn [x] Negative [] Positive (Details: ) Endotracheal aspirate: [] None drawn [x] Negative [] Positive (Details: ) Consults: 1. Nephrology Urology Assessment: Patient Active Problem List Diagnosis Date Noted Acute renal failure 01/30/2025 VALERIA (acute kidney injury) 01/30/2025 Obstructive uropathy 01/30/2025 Hyperkalemia 01/30/2025 Metabolic acidosis 01/30/2025 History of prostate cancer 01/30/2025 Urinary retention 01/30/2025 Additional assessment: VALERIA Prostate cancer Bilateral hydronephrosis Obstructive uropathy Hyperkalemia Elevated troponins likely secondary to VALERIA Recommended Follow-up: Monitor kidney function Keep Hummel in for 1 week. Repeat ultrasound kidney in 1 to 2 days Outpatient oncology follow-up Discharge planning Above mentioned assessment and plan was discussed by me with the admitting medicine resident. The medicine team assigned to the patient by medicine admitting resident will be following up the patient from now onwards on the floor. Dylan Garrett MD, MSissyD. PGY-3 IM Resident 01/31/2025, 1:04 AM Report given to VIK Zhou. All questions answered. When discussing next of kin/decision makers, pt reported he has not filled out any advanced directives. He has 3 sons and a stepson (that he did not adopt). The for the stepson has been at bedside with pt throughout the day. Pt reports he doesn't know the phone numbers for any of his sons (?). RN explained that without a POA, his NOK would be his 3 sons and they would need to come to decisions that at least 2/3 of them agreed upon in the circumstance that he couldn't make decisions for himself. Pt reported he'd like to elect his neighbor, provided the neighbor's name and phone number from him cell phone. To honor this request, RN ordered spiritual care consult, but per chart it appears pt was under the impression at that time that his step-son, whom he apparently lives with, would also be a next of kin? Pt has been intermittently seeming a bit overwhelmed, possibly confused (?) today. He is a poor historian. Early in the AM he forgot Imer's name, but could answer all orientation questions. Possibly related to pain medication. Step son (Mike)'s , Imer confirms that pt lives with Mike and Imer. Pt also has a long-term partner Libia, who is Mike's mom. She reports she doesn't have phone numbers for the 3 sons. As it stands, sons Allen II, Ming and Juan F are NOK. ADDENDUM: Asked pt again about NOK and he's again expressing interest in having his neighbor make decisions for him as DPOA. RN asked why pt changed his mind with the executive vice president of sales and pt reported he's been confused . Will need to follow-up on this at a later time when pt is more consistent and decisional. Dialysis Post Treatment Note Vitals: 01/30/25 1150 BP: (!) 156/96 Pulse: (!) 108 Resp: 13 Temp: 98 F (36.7 C) SpO2: 97% Pre-Weight = 69.6 kg Post-weight = Weight - Scale: 69.8 kg (153 lb 14.1 oz) Total Liters Processed = Blood Volume Processed (Liters): 49.42 L Rinseback Volume (mL) = Rinseback Volume (ml): 210 ml Net Removal (mL) = 0 Patient's dry weight=TBD Type of access used=R Temp cath Length of ziajrrxhi=186 minutes Date of last dressing change =01/30/25 new line Pt tolerated 1st HD treatment well, vital stable, no issues. Report given to primary RN Lizette Guerrier Dialysis Time Out To be done by RN and tech or 2 RNs Staff Names Thee CHERY and Lizette Liu RN [x] Identity of the patient using 2 patient identifiers [x] Consent for treatment [x] Equipment-proper machine and dialyzer [x] B-Hep B status: Lab draw today. [x] Orders- to include bath, blood flow, dialyzer, time and fluid removal [x] Access-Correct site and in working order [x] Time for patient to ask questions. documented in this encounter [facility] 02-05-2025 Note PROCEDURE: PERCUTANEOUS ANTEGRADE PYELOGRAM RIGHT PERCUTANEOUS NEPHROSTOMY [...] the procedure including risks, benefits, and alternatives. [place] protocol was followed. Patient is on intravenous [...] over the guidewire. Through the outer 6 [place] cannula an angled catheter and Glidewire were advanced and negotiated into the ureter. Guidewire and catheter were directed into the bladder. Small amount of contrast injected verifying catheter tip in the bladder. There is a Hummel catheter in place. An Amplatz guidewire was placed through the catheter. An 8 [place] by 24 cm double-J ureteral stent was deployed with the distal loop formed in the bladder. The proximal loop was formed in the renal pelvis. Small amount of contrast injected verifying appropriate catheter positioning and patency. An 8 [place] nephrostomy tube was placed over the guidewire [...] stable condition. EBL: Less than 5 mL. [facility] 02-05-2025 Note PROCEDURE: PERCUTANEOUS ANTEGRADE PYELOGRAM RIGHT PERCUTANEOUS NEPHROSTOMY [...] the procedure including risks, benefits, and alternatives. [place] protocol was followed. Patient is on intravenous [...] over the guidewire. Through the outer 6 [place] cannula an angled catheter and Glidewire were advanced and negotiated into the ureter. Guidewire and catheter were directed into the bladder. Small amount of contrast injected verifying catheter tip in the bladder. There is a Hummel catheter in place. An Amplatz guidewire was placed through the catheter. An 8 [place] by 24 cm double-J ureteral stent was deployed with the distal loop formed in the bladder. The proximal loop was formed in the renal pelvis. Small amount of contrast injected verifying appropriate catheter positioning and patency. An 8 [place] nephrostomy tube was placed over the guidewire [...] Successful antegrade right ureteral stent placement; 8 [place] by 24 cm double-J stent was deployed. Interpreted by: Esau Egan MD Signed by: Esau Egan MD 02/05/25 Final result [facility] 03-25-2023 Note [facility] 03-25-2023 History of Present illness Narrative Orthopaedic Surgery Follow-Up Clinic Note Admission Dates: 01/24/2023-02/16/2023 Surgery/Date: 02/11/2023 - Dr. Rogers, Plastic Surgery Split thickness skin grafting left lateral thigh 17 x 6 cm Application of nondisposable wound VAC > 50 cm Surgery/Date: 02/03/2023 - Dr. Parker Wound Bed Preparation with Continued Closure of the Wound Edges to the Surrounding Muscle (CPT 06326, 18701, 67076) Placement of KCI Wound VAC Prevena, Conventional Technique, >50cm2, Durable Senior Estimator (CPT 86112) Surgery/Date: 01/29/2023 - Dr. Benítez INCISION AND DRAINAGE DEEP PELVIS / HIP JOINT AREA ABSCESS Left thigh wound vacuum application > 50cm^2 Surgery/Date: 01/31/2023 - Dr. Fisher Left thigh irrigation and debridement for necrotizing soft tissue infection including muscle, fascia and bone Left hip explantation of cemented hemiarthroplasty and Girdlestone Surgery/Date: 01/24/2023- Dr. Ruiz/Colton Incision and Drainage Abscess, Left Hip - Dr. Ruzi Diagnosis: 1) Left Thigh Necrotizing Fasciitis s/p Multiple Wound Debridements (most recently 01/31/23) 2) Calorie Malnutrition 3) h/o Metastatic Prostate Cancer 4) VALERIA Recall from Dr. Parker's Discharge Summary; Patient underwent a multidisciplinary approach, with multiple orthopedic surgeons and plastic surgeons, in an effort to help alleviate a large gangrenous process in the left thigh, which ultimately required removal of his hip prosthesis. He was left with a Girdlestone. He required multiple soft tissue debridements and serial closures. Ultimately, a large defect over his lateral thigh was exposed and he did undergo split thickness skin grafting with the plastic surgery team prior to discharge. S: This represents our 1st postoperative visit with Allen and his significant other, Libia today by way of virtual visit. - Patient was discharged home, not to a SNF. - Saw Imer Amaro with plastics by virtual visit on 03/07/2023. He has excellent take of his left lateral thigh skin graft, which is matured and adherent. The thigh incision above the skin graft is dry and intact and sutures were removed today with complication. -- RTC as needed with plastics. - Infectious Disease: Was on Unasyn 3 g every 6 hours post-op. COPAT stopped and PICC pulled on 03/04/2023. He missed his follow-up appointment with ID on 03/02/2023 - We communicated with patient and home care to have rico removed from anterior knee and thigh. He reports no issues with his incision. - He has not yet had his xrays completed but plan to do so as soon as they can get transport arranged. He does have his XR orders. - He has had trouble obtaining his bedside commode, wheelchair, and hospital bed due to insurance. He is extremely limited in what he can currently do without the appropriate DME. He is stuck in bed for the most part. He tries to transfer with use of a walker but says this is unsafe and not ideal - this is mostly for pivot transfers, not full ambulation. Exam: Limited exam due to nature of virtual visit. LLE Patient is lying in bed with head propped up. He speaks appropriately. Libia helps to show his incisions - all of which look to be healing appropritately. Skin graft donor site is noted to be scabbing. All incisions are intact without drainage or openings. All sutures/rico have been removed. No obvious redness or swelling on limited evaluation today. Imaging: No new imaging today. Patient and significant other are working to get patient transport to [place] to have post-op xrays completed. A/P: - RTC: Patient will notify us when he is able to obtain Xrays. We will then review with him. Virtual visits work best for him as he states he lives 4 miles out of the range that his insurance is willing to drive from home to [facility]. He notes that he does feel like he may be able to sit in a car soon however. Either Allen or Libia are to notify us when xrays are completed and we will have them pushed. - DME is a medical necessity for Allen's health and well-being: - Wheelchair is medically indicated as patient has a severe mobility limitation. He does not have a functioning left hip joint - nonweightbearing on left lower extremity. He is unable to use a walker or cane to ambulate due to this. He is able to sit and propel a standard wheelchair. He needs in home assist with MRADLs - toileting, showering, and grooming. - Hospital bed is medically indicated as patient requires frequent repositioning not feasible with a regular bed. Needs the ability to elevate the head of the bed. - Bed side commode is medically necessary due to patient's inability to use standard bathroom. - Letter written to send with today's note to [employer] - Nonweightbearing on left lower extremity - Wound appears pristine, steristrips removed - OK to shower - no baths, hot tubs, swimming pools (submerging under standing water) x6 weeks after surgery, no submerging under chlorinated water for 6 weeks - Medication Rx's given today: none - Abx: Was on Unasyn 3 g every 6 hours post-op. COPAT stopped and PICC pulled on 03/04/[address] Brown. - DVT ppx: Completed course of Lovenox after 4 weeks - Complete Iron + Vitamin C after 4 weeks post-op Months post-op: 6 weeks from skin graft, 7.5 weeks from girdlestone, 8.5 weeks from original washout Ly Spicer PA-C, [facility] Department of Orthopedic Surgery 03/25/2023 1:00 PM documented in this encounter [facility] 03-10-2023 Miscellaneous Notes Letter written to fax to [employer]. Sent to be faxed. Ly Spicer PA-C documented in this encounter [facility] 03-07-2023 Note [facility] 03-07-2023 History of Present illness Narrative Plastic Surgery Follow Up CC: post op HPI: Allen Kearns SR is here for postoperative follow up. This appointment is being conducted virtually as patient does not have transportation to attend in-person appointments at this time. Patient's [facility] Charito is also on the virtual appointment to assist with this appointment. This is a 57 yo M w/ hx metastatic prostate cancer who presented to the hospital on 01/24/23 with necrotizing soft tissue infection of the left thigh following a scratch from a cat s/p multiple debridements and left hip explantation of cemented hemiarthoplasty and Girdlestone with Orthopedic surgery. Patient had the following surgical procedure performed on 02/11/[address] Rogers: 1. Split thickness skin grafting left lateral thigh 17 x 6 cm 2. Application of nondisposable wound VAC > 50 cm STSG was harvested from the right anterior thigh. Donor site was dressed with Aquacel Ag, Tegaderm, and covered with ABD pad and Coban. COPAT was stopped and PICC pulled today. Patient tells me that his appetite is intact, but PO intake is not back to baseline. He denies fevers, chills, n/v/d. He has No symptoms or signs of infection (no N/V/F/C, no wound drainage and no new redness) Meds and allergies reviewed in EPIC. ROS: GENERAL: No weight loss, malaise or fevers RESPIRATORY: Negative for cough, hemoptysis, wheezing, COPD, dyspnea or shortness of breath GI: No nausea, vomiting, or diarrhea PMH: PAST MEDICAL HISTORY Diagnosis Date Lung cancer (HCC) Prostate cancer metastatic to bone (HCC) PSH: PAST SURGICAL HISTORY Procedure Laterality Date LUNG BIOPSY 04/2019 PROSTATE BIOPSY 04/2019 MEDICATIONS: Current Outpatient Medications on File Prior to Visit Medication Sig oxyCODONE IR (ROXICODONE) 5 mg immediate release tablet Take 1 tablet by mouth every 6 hours as needed for pain for up to 7 days. for pain. docusate sodium (COLACE) 100 mg capsule Take 1 capsule by mouth twice daily for 20 days. [START ON 03/16/2023] aspirin, enteric coated (ECOTRIN LOW STRENGTH) 81 mg EC tablet Take 1 tablet by mouth twice daily for 14 days. baclofen (LIORESAL) 10 mg tablet Take 1 tablet by mouth three times daily. ascorbic acid, vitamin C, (VITAMIN C) 500 mg tablet Take 1 tablet by mouth once daily. ferrous sulfate (IRON) 325 mg (65 mg iron) tablet Take 1 tablet by mouth twice daily. enoxaparin (LOVENOX) 40 mg/0.4 mL Inject 0.4 mL subcutaneously once daily for 27 days. enzalutamide (XTANDI) 80 mg tablet TAKE 2 TABLETS (160 MG) BY MOUTH ONCE DAILY gabapentin (NEURONTIN) 300 mg capsule Take 2 capsules by mouth three times daily for 90 days. mirtazapine (REMERON) 15 mg tablet Take 1 tablet by mouth daily at bedtime. naloxone 4 mg/actuation nasal spray (NARCAN) Use 1 spray in one nostril as needed for overdose. May repeat every 2 to 3 min in alternating nostrils until medical assistance is available pantoprazole DR (PROTONIX) 40 mg tablet Take 1 tablet by mouth once daily. prochlorperazine (COMPAZINE) 10 mg tablet Take 1 tablet by mouth every 6 hours as needed. tamsulosin (FLOMAX) 0.4 mg Take 2 capsules by mouth daily 30 minutes after the same meal each day. diclofenac, EC, (VOLTAREN) 75 mg EC tablet Take 1 tablet by mouth twice daily. No current facility-administered medications on file prior to visit. ALLERGIES: ALLERGIES Allergen Reactions [place] [Hydrocodone-* Unknown Patient is on oxycodone and hydromorphone outpatient PHYSICAL EXAM: Physical exam limited by the virtual nature of this appointment. Awake, alert, oriented x3. NAD. Lying in bed. Significant other, Libia and [facility] RN Charito at bedside. 98.1 temp and 132/70 per Charito. RESPIRATORY: respirations even and unlabored, no GFR CHEST:Normal chest wall exam Wound: Right thigh donor site dressing taken down today. Area is re-epithelialized and healed over. No open areas, no drainage. Periwound is intact and without erythema or swelling. Left lateral thigh skin graft with excellent take with superficial epidermal sloughing as expected. Some crusting at the superior pole. No open wounds. Left upper thigh incision c/d/I with 4 sutures that can be removed today. He has two, intact Aquacel Ag Duoderm dressings in place over left anterior knee and left anterior thigh. He has rico in medial left anterior thigh that appear ready to come out. Will make Dr. Parker's team aware and defer to them regarding management of these dressings. ASSESSMENT/PLAN: Mr. Kearns is now 24 days s/p Split thickness skin grafting left lateral thigh 17 x [address] Rogers. He has excellent take of his left lateral thigh skin graft, which is matured and adherent. The thigh incision above the skin graft is dry and intact and sutures were removed today with complication. The right thigh donor site is re-epithelialized. No open wounds observed today and no s/s of infection. -Leave donor site MARIBELL. Continue to protect this area indefinitely with daily application of Aquaphor, vaseline, or cocoa butter. -Left lateral thigh sutures removed today by [facility] RN without complication. -Continue to cleanse the left lateral thigh incision line and skin graft with NS and pat dry. Apply xeroform dressing over these areas followed by ABD pad secured with tape. Do this daily for one week. After that, can keep area clean and dry and apply Aquaphor, vaseline, or cocoa butter daily. -Encouraged patient to continue to increase his protein intake to optimize nutrition for healing. -Continue follow-up with Orthopedics. RTC as needed. Imer Amaro APRN.CNP documented in this encounter [facility] 03-04-2023 Miscellaneous Notes Spoke with patient's [facility] RN Charito. Patient missed his appointments this week with Dr. Rogers and Dr. Parker as their transportation cancelled on them last minute due to insurance. Insurance apparently stated they are 4 miles over the allowable travel distance covered. I received photos of patient's left thigh STSG on 02/25/23 and it looked good with 95% take. There is some graft loss at superior pole. Charito confirmed this is the case. I told her to continue daily xeroform dressings with ABD and kerlix for now. She tells me that the right thigh donor site is covered with Coban falling off and opsite. Patient complains of itch. I told her to remove the coban. We can schedule a virtual in near future to remove the donor site dressing. Charito agreed with this plan. I cannot speak to wounds being followed by ortho. Patient needs imaging per their request. Chartio states that this could be done locally at [place] or [facility] if need be. I will reach out to Colton's team to help coordinate next steps. Charito's [facility] Agency can be reached at [phone] (Speak with Lydia or Clau). documented in this encounter [facility] 03-04-2023 Nurse Note Order received from Dr Brown to honor COPAT stop and pull picc. Call placed to home care team to advise okay to pull picc. Verbal order given to Teri. Call placed to [facility]. Verbal order given to Kristina to honor COPAT stop. Picc being pulled by nursing. documented in this encounter [facility] 03-03-2023 Miscellaneous Notes Charito from [facility] called to inform that patient could not make yesterdays appointment due to transportation issues. Mileage is over what transportation allows. Nurse staff would like further direction on wound care. They are also unsure on how to get patient out to see the doctor. Would like to speak with clinical staff. ph. [phone] documented in this encounter [facility] 02-22-2023 Miscellaneous Notes PDMP website checked and validated. All prescriptions have been APPROPRIATELY filled. No suspicious activity was identified. 02/22/2023 by Ly Spicer PA-C Patient's request for medication is as follows: Requested Prescriptions Signed Prescriptions Disp Refills oxyCODONE IR (ROXICODONE) 5 mg immediate release tablet 28 tablet 0 Sig: Take 1 tablet by mouth every 6 hours as needed for pain for up to 7 days. for pain. Do not start before February 23, 2023. Authorizing Provider: LY SPICER Prescription(s) as above. Please process accordingly. Ly Spicer PA-C SURGERY/PROCEDURE(S): 01/31/23 Wound Bed Preparation with Continued Closure of the Wound Edges to the Surrounding Muscle Left thigh irrigation and debridement Partial closure complex wound greater than 20 cm PC from patient's to request a refill of Oxy. Pharmacy confirmed. documented in this encounter [facility] 02-22-2023 Miscellaneous Notes [facility] called w update. They tried to have pt go to nursing facility due to difficulty for to care for him. He refused. [facility] is reordering home care pt/ot. pt is s/p surg 02/03 closure wound, left decubitus documented in this encounter [facility] 02-17-2023 Miscellaneous Notes Spoke with [facility] agency regarding his orders. They requested to have the orders faxed to them. Sent orders to Belinda to fax. Tessie Colvin RN February 17, 2023 11:14 AM Charito from [facility] needs clarification of wound orders. Please call [phone] to update with the nursing supervisor nuclear medicine. documented in this encounter [facility] 02-17-2023 Note HNO ID: [id number] Author: Eunice De La Torre RN Service: ? Author Type: Registered Nurse Type: Nursing Progress Note Filed: 02/16/2023 10:28 PM Note Text: pt discharged via ambulance to home [facility] 02-16-2023 Note [facility] 02-16-2023 Miscellaneous Notes Call received from Leeann at [facility] stating they have been trying to get ahold of pt to set up shipment of his Xtandi. They have left messages on both numbers listed. Verified that they have the same numbers as we do. They will be calling pt one more time tomorrow and will then put medication on hold. Call placed to Libia and explained this to her. She states she will call them now to schedule delivery. Jaimee Morales RN documented in this encounter [facility] 02-16-2023 Note [facility] 02-15-2023 Note [facility] 02-15-2023 Note [facility] 02-14-2023 Note [facility] 02-14-2023 Note [facility] 02-14-2023 Note [facility] 02-13-2023 Note [facility] 02-13-2023 Note HNO ID: [id number] Author: Interface Note Service: ? Author Type: ? Type: Progress Notes Filed: 02/13/2023 1:52 AM Note Text: Epic Scheduled Downtime: 02/13/2023 1:00:00 AM to 02/13/2023 1:46:00 AM [facility] 02-12-2023 Note [facility] 02-11-2023 Note [facility] 02-11-2023 Note [facility] 02-11-2023 Note [facility] 02-10-2023 Note [facility] 02-10-2023 Note [facility] 02-09-2023 Note [facility] 02-09-2023 Note [facility] 02-08-2023 Note HNO ID: [id number] Author: Ana Lewis RN Service: ? Author Type: Registered Nurse Type: Nursing Progress Note Filed: 02/08/2023 4:17 PM Note Text: Other: 1600-assumed pt care. no distress. pain meds given prn [facility] 02-08-2023 Note [facility] 02-08-2023 Miscellaneous Notes Message left for Libia on her voicemail to call our office back. Jaimee Morales RN Images from the original note were not included. Araceli Betts MD You 3 days ago Looks like her was admitted for an infection. I have not seen him in sometime as he has missed a number of appointments with me. I m not sure where he is in regards to his cancer and or PSA and that was not the main issue on this admission. It s best that he follows up with me once discharged so he can get plugged in Thanks. Call placed to Libia and message left requesting a call back. Jaimee Morales RN Libia, pt's girlfriend calls stating pt has been admitted for a couple weeks to [facility]. Libia is asking Dr Betts to go through pt's chart and to give recommendations as to what options are for treatment. Libia states the doctors inpatient won't give them details or discuss options with them and tell them that it's up to his oncologist. Please advise Jaimee Morales RN documented in this encounter [facility] 02-08-2023 Note [facility] 02-07-2023 Note [facility] 02-07-2023 Note [facility] 02-06-2023 Note [facility] 02-06-2023 Note [facility] 02-06-2023 Note [facility] 02-05-2023 Note [facility] 02-04-2023 Note [facility] 02-04-2023 Note [facility] 02-03-2023 Note [facility] 02-03-2023 Note [facility] 02-03-2023 Note [facility] 02-02-2023 Note [facility] 02-02-2023 Note [facility] 02-01-2023 Note [facility] 02-01-2023 Note [facility] 01-31-2023 Note [facility] 01-31-2023 Note [facility] 01-31-2023 Note [facility] 01-30-2023 Note [facility] 01-30-2023 Note [facility] 01-29-2023 Note [facility] 01-29-2023 Note [facility] 01-28-2023 Note [facility] 01-28-2023 Note [facility] 01-28-2023 Note [facility] 01-28-2023 Note [facility] 01-27-2023 Note [facility] 01-27-2023 Note [facility] 01-27-2023 Note [facility] 01-26-2023 Note [facility] 01-26-2023 Note [facility] 01-26-2023 Note [facility] 01-26-2023 Note [facility] 01-25-2023 Note [facility] 01-25-2023 Note [facility] 01-24-2023 Note [facility] 01-24-2023 Note [facility] 01-24-2023 Note [facility] 01-24-2023 Note [facility] 01-24-2023 Note [facility] 01-24-2023 Note [facility] 03-29-2022 Miscellaneous Notes Call placed to patient, no answer. Left message on voicemail to call back to reschedule. Diana Daniels Please reschedule Patient did not show for appointment today. Diana Daniels documented in this encounter [facility] 03-18-2022 Miscellaneous Notes Please sign CBC for 03/26/22. Deanne Brown MA documented in this encounter [facility] 03-01-2022 Miscellaneous Notes Can you schedule him to do those at [place]. Thanks documented in this encounter [facility] 02-16-2022 Miscellaneous Notes The following prescription(s) will be transmitted electronically to [facility] upon approval. Patient has been notified. Pending Prescriptions Disp Refills TRAZODONE 50 MG TABLET 60 tablet 0 Sig: Take 2 tablets by mouth daily at bedtime. GATITO: No MIRTAZAPINE 15 MG TABLET 30 tablet 0 Sig: Take 1 tablet by mouth daily at bedtime. GATITO: No Has follow up appointment with Dr Bell 03/02/2022 Sammie Clements RN February 16, 2022 11:08 AM documented in this encounter [facility] Evaluation note Diagnosis Prostate cancer metastatic to bone (HCC)- Primary [facility] Diagnosis S/P flap graft Other postprocedural status [facility] Diagnosis Post-operative state- Primary Other postprocedural status Severe protein-calorie malnutrition (HCC) Other severe protein-calorie malnutrition [facility] Diagnosis S/P Girdlestone procedure- Primary Other postprocedural status S/P flap graft Other postprocedural status [facility] Diagnosis Necrotizing fasciitis (HCC)- Primary Necrotizing fasciitis [facility] Diagnosis Acute renal failure- Primary Acute kidney failure, unspecified VALERIA (acute kidney injury) Acute kidney failure, unspecified Obstructive uropathy Urinary obstruction, unspecified Hyperkalemia Hyperpotassemia Metabolic acidosis Acidosis History of prostate cancer Personal history of malignant neoplasm of prostate Urinary retention Retention of urine, unspecified [facility] noteNo assessment information available [facility] Work Phone: Evaluation note* Diagnosis Prostate cancer (HCC) Malignant neoplasm of prostate BPH with obstruction/lower urinary tract symptoms Hypertrophy of prostate with urinary obstruction and other lower urinary tract symptoms (LUTS) documented [facility] this [facility] for referral (narrative)* Diagnostic Procedure Only (Routine) - Authorized Specialty Diagnoses / Procedures Referred By Enrique boles Referred To Contact XR IMAGING Diagnoses Necrotizing fasciitis (HCC) Procedures XR PELVIS 1V AP RADIOLOGIC EXAMINATION PELVIS 1/2 VIEWS Gaby Parker MD [address] [place] [address] Xr Imaging Referral ID Status Reason Start Date Expiration Date Visits Requested Visits Authorized [id number] Authorized Auto-Generat ed Referral 02/28/2023 03/26/2024 1 1 * Diagnostic Procedure Only (Routine) - Authorized Specialty Diagnoses / Procedures Referred By Contac t Referred To Contact XR IMAGING Diagnoses Necrotizing fasciitis (HCC) Procedures XR FEMUR GENERAL 2V AP/LAT LEFT RADIOLOGIC EXAMINATION FEMUR MINIMUM 2 VIEWS Gaby Parker MD [address] [place] [address] Xr Imaging Referral ID Status Reason Start Date Expiration Date Visits Requested Visits Authorized [id number] Authorized Auto-Generat ed Referral 02/28/2023 03/26/2024 1 1 [facility] for visit Narrative* Auth/Cert Specialty Diagnoses / Procedures Referred By Contac t Referred To Contact Diagnoses Acute renal failure (ARF) Mickey Hubbard MD [address] [facility] [address] [place] [address] Phone: tel: fax: [facility] [address] [place] [address] Referral ID Status Reason Start Date Expiration Date Visits Re quested Visits Authorized [id number] [facility] for visit Narrative* Auth/Cert Specialty Diagnoses / Procedures Referred By Contac t Referred To Contact Diagnoses Prostate cancer (HCC) BPH with obstruction/lower urinary tract symptoms Procedures MT LITHOLAPAXY SMPL/SM <2.5 CM CYSTOSCOPY RIGHT URETEROSCOPY HOLMIUM LASER RIGHT STENT EXCHANGE CHANNEL TURP Valente Lew Jr., MD [address] [place] [address] Phone: tel: [phone] fax:[phone] [facility] [employer] [address] [place] [address] Referral ID Status Reason Start Date Expiration Date Visits Re quested Visits Authorized [id number] 1 1 [facility] [employer] [facility] Advance Directives No Advanced Directives Records Found Date Activated Date Inactivated Comments 01/30/2025 4:39 AM 02/06/2025 2:29 PM Date Activated Date Inactivated Comments 01/30/2025 4:39 AM 01/30/2025 4:39 AM Healthcare Agents on File Name Relationship Healthcare Agent Relationshi p Communication Ming Kearns Child Primary Decision Maker Documents on File Type Date Recorded Patient Community Support Specialist Expl anation Advance Directive(s) 02/24/2021 2:23 PM Latest Code Status on File Code Status Date Activated Date Inactivated Comments Full Code 02/24/2021 12:26 AM 02/26/2021 10:11 PM Full Code Order Discussed With: Discussion Not M edically Appropriate Latest Code Status on File Code Status Date Activated Date Inactivated Comments Full Code 01/24/2023 5:29 AM Full Code Order Discussed With: Patient Surrogate Decision Maker Name: - jaylan Full Code 01/24/2023 5:22 AM 01/24/2023 5:29 AM Full Code Order Discussed With: Patient Surrogate Decision Maker Name: Jaylan - , Clayton baig - significant other Full Code 01/24/2023 5:18 AM 01/24/2023 5:22 AM Full Code Order Discussed With: Patient Surrogate Decision Maker Name: Jaylan - Full Code 02/24/2021 12:26 AM 02/26/2021 10:11 PM Latest Code Status on File Code Status Date Activated Date Inactivated Comments Full Code 01/24/2023 5:29 AM 02/17/2023 1:15 AM Latest Code Status on File Code Status Date Activated Date Inactivated Comments Full Code 01/24/2023 5:29 AM 02/17/2023 1:15 AM Full Code 01/24/2023 5:22 AM 01/24/2023 5:29 AM Full Code 01/24/2023 5:18 AM 01/24/2023 5:22 AM Full Code 02/24/2021 12:26 AM 02/26/2021 10:11 PM Date Activated Date Inactivated Comments 01/30/2025 4:39 AM Healthcare Agents on File Name Relationship Healthcare Agent Relationshi p Communication Allen Kearns II Child Primary Decision Maker Ming Kearns Child Primary Decision Maker Juan F Kearns Child Primary Decision Maker Summary Purpose Family History No Family History Records FoundNo Family History Records FoundNo Family History Records FoundNo Family History Records FoundNo Family History Records Found Additional Source Comments Source Comments (unrecognize d section and content) In the event this informatio n is protected by the Federal Confidentiality of Alcohol and Drug Abuse Patient Records regulations: The Federal rules restrict any use of the information to criminally investigate or prosecute any alcohol or drug abuse patient.[facility] Healthcare[facility] the event this information is protected by the Federal Confidentiality of Alcohol and Drug Abuse Patient Records regulations: The Federal rules restrict any use of the information to criminally investigate or prosecute any alcohol or drug abuse patient.[facility] HealthcareIn the event this information is protected by the Federal Confidentiality of Alcohol and Drug Abuse Patient Records regulations: The Federal rules restrict any use of the information to criminally investigate or prosecute any alcohol or drug abuse patient.[facility] the event this information is protected by the Federal Confidentiality of Alcohol and Drug Abuse Patient Records regulations: The Federal rules restrict any use of the information to criminally investigate or prosecute any alcohol or drug abuse patient.[facility] HealthcareIn the event this information is protected by the Federal Confidentiality of Alcohol and Drug Abuse Patient Records regulations: The Federal rules restrict any use of the information to criminally investigate or prosecute any alcohol or drug abuse patient.[facility] HealthcareIn the event this information is protected by the Federal Confidentiality of Alcohol and Drug Abuse Patient Records regulations: The Federal rules restrict any use of the information to criminally investigate or prosecute any alcohol or drug abuse patient.[facility] HealthcareIn the event this information is protected by the Federal Confidentiality of Alcohol and Drug Abuse Patient Records regulations: The Federal rules restrict any use of the information to criminally investigate or prosecute any alcohol or drug abuse patient.[facility] HealthcareIn the event this information is protected by the Federal Confidentiality of Alcohol and Drug Abuse Patient Records regulations: The Federal rules restrict any use of the information to criminally investigate or prosecute any alcohol or drug abuse patient.[facility] HealthcareIn the event this information is protected by the Federal Confidentiality of Alcohol and Drug Abuse Patient Records regulations: The Federal rules restrict any use of the information to criminally investigate or prosecute any alcohol or drug abuse patient.[facility] HealthcareIn the event this information is protected by the Federal Confidentiality of Alcohol and Drug Abuse Patient Records regulations: The Federal rules restrict any use of the information to criminally investigate or prosecute any alcohol or drug abuse patient.[facility] HealthcareIn the event this information is protected by the Federal Confidentiality of Alcohol and Drug Abuse Patient Records regulations: The Federal rules restrict any use of the information to criminally investigate or prosecute any alcohol or drug abuse patient.[facility] HealthcareIn the event this information is protected by the Federal Confidentiality of Alcohol and Drug Abuse Patient Records regulations: The Federal rules restrict any use of the information to criminally investigate or prosecute any alcohol or drug abuse patient.[facility] HealthcareIn the event this information is protected by the Federal Confidentiality of Alcohol and Drug Abuse Patient Records regulations: The Federal rules restrict any use of the information to criminally investigate or prosecute any alcohol or drug abuse patient.[facility] HealthcareIn the event this information is protected by the Federal Confidentiality of Alcohol and Drug Abuse Patient Records regulations: The Federal rules restrict any use of the information to criminally investigate or prosecute any alcohol or drug abuse patient.[facility] HealthcareIn the event this information is protected by the Federal Confidentiality of Alcohol and Drug Abuse Patient Records regulations: The Federal rules restrict any use of the information to criminally investigate or prosecute any alcohol or drug abuse patient.[facility] HealthcareIn the event this information is protected by the Federal Confidentiality of Alcohol and Drug Abuse Patient Records regulations: The Federal rules restrict any use of the information to criminally investigate or prosecute any alcohol or drug abuse patient.[facility] HealthcareIn the event this information is protected by the Federal Confidentiality of Alcohol and Drug Abuse Patient Records regulations: The Federal rules restrict any use of the information to criminally investigate or prosecute any alcohol or drug abuse patient.[facility] HealthcareIn the event this information is protected by the Federal Confidentiality of Alcohol and Drug Abuse Patient Records regulations: The Federal rules restrict any use of the information to criminally investigate or prosecute any alcohol or drug abuse patient.[facility] HealthcareIn the event this information is protected by the Federal Confidentiality of Alcohol and Drug Abuse Patient Records regulations: The Federal rules restrict any use of the information to criminally investigate or prosecute any alcohol or drug abuse patient.[facility] HealthcareIn the event this information is protected by the Federal Confidentiality of Alcohol and Drug Abuse Patient Records regulations: The Federal rules restrict any use of the information to criminally investigate or prosecute any alcohol or drug abuse patient.[facility] HealthcareIn the event this information is protected by the Federal Confidentiality of Alcohol and Drug Abuse Patient Records regulations: The Federal rules restrict any use of the information to criminally investigate or prosecute any alcohol or drug abuse patient.[facility] HealthcareIn the event this information is protected by the Federal Confidentiality of Alcohol and Drug Abuse Patient Records regulations: The Federal rules restrict any use of the information to criminally investigate or prosecute any alcohol or drug abuse patient.[facility] HealthcareIn the event this information is protected by the Federal Confidentiality of Alcohol and Drug Abuse Patient Records regulations: The Federal rules restrict any use of the information to criminally investigate or prosecute any alcohol or drug abuse patient.[facility] Reason for Visit (unrecogniz ed section and content) Reason Onset Date Comments Refill Request 02/15/2022 Reason Comments Lab Orders Reason Comments No Show Reason Comments Refill Request Reason Comments CoPat Start Reason Comments Care Coordination question Reason Comments Care Coordination Medication update Reason Comments [facility]Pat Agency Reason Comments Patient Question Need clarification o n wound care orders Reason Onset Date Comments Refill Request 02/22/2023 Reason Comments Patient Update Reason Comments CoPat Stop Reason Comments Patient Question Charito from [facility] call ing Reason Comments Post Op Reason Comments Orders Reason Comments Patient Update Reason Onset Date Comments Refill Request 05/03/2023 Care Teams (unrecognized sec tion and content) Events Intern Relationship Specialty Start Date End Date Jaimee Morales RN [address] [place] [address] [place] [address] Specialty Strand Galvanizer Hematology/Oncology 06/25/19 Araceli Betts MD [address] [place] [address] [place] [address] Physician Hematology/Oncology 06/25/19 Maryanne Tavarez, PA-C [address] [place] [address] Physician Global Marketing Operations Manager Hematology/Oncology 06/25/19 Thompson Bell DO [address] [place] [address] Consulting HOSPICE & PALLIATIVE MEDICINE 02/03/21 Anne Tran, VIK Specialty Strand Galvanizer HOSPICE & PALLIATIVE MEDICINE 02/03/21 Events Intern Relationship Specialty Start Date End Date Jaimee Morales RN [address] [place] [address] Specialty Strand Galvanizer Hematology/Oncology 06/25/19 Araceli Betts MD [address] [place] [address] Physician Hematology/Oncology 06/25/19 Maryanne Tavarez PA-C [address] [place] [address] Physician Global Marketing Operations Manager Hematology/Oncology 06/25/19 Thompson Bell, DO [address] [place] [address] Consulting HOSPICE & PALLIATIVE MEDICINE 02/03/21 Anne Tran, RN Specialty Strand Galvanizer HOSPICE & PALLIATIVE MEDICINE 02/03/21 Events Intern Relationship Specialty Start Date End Date Jaimee Morales RN [address] [place] [address] Specialty Strand Galvanizer Hematology/Oncology 06/25/19 Araceli Betts MD [address] [place] [address] Physician Hematology/Oncology 06/25/19 Mayranne Tavarez PA-C [address] [place] [address] Physician Global Marketing Operations Manager Hematology/Oncology 06/25/19 Thompson Bell, DO [address] [place] [address] Consulting HOSPICE & PALLIATIVE MEDICINE 02/03/21 Anne Tran, RN Specialty Strand Galvanizer HOSPICE & PALLIATIVE MEDICINE 02/03/21 Events Intern Relationship Specialty Start Date End Date Jaimee Morales RN [address] [place] [address] Specialty Strand Galvanizer Hematology/Oncology 06/25/19 Araceli Betts MD [address] [place] [address] Physician Hematology/Oncology 06/25/19 Maraynne Tavarez PA-C [address] [facility] [place] [address] Physician Global Marketing Operations Manager Hematology/Oncology 06/25/19 Thompson Bell, [address] [place] [address] Consulting HOSPICE & PALLIATIVE MEDICINE 02/03/21 Anne Tran, RN Specialty Strand Galvanizer HOSPICE & PALLIATIVE MEDICINE 02/03/21 Events Intern Relationship Specialty Start Date End Date Jaimee Morales RN [address] [facility] [place] [address] Specialty Strand Galvanizer Hematology/Oncology 06/25/19 Araceli Betts MD [address] [facility] [place] [address] Physician Hematology/Oncology 06/25/19 Maryanne Tavarez PA-C [address] [facility] [place] [address] Physician Global Marketing Operations Manager Hematology/Oncology 06/25/19 Thompson Bell, [address] [place] [address] Consulting HOSPICE & PALLIATIVE MEDICINE 02/03/21 Anne Tran, RN Specialty Strand Galvanizer HOSPICE & PALLIATIVE MEDICINE 02/03/21 Events Intern Relationship Specialty Start Date End Date Jaimee Morales RN [address] [facility] [place] [address] Specialty Strand Galvanizer Hematology/Oncology 06/25/19 Araceli Betts MD [address] [place] [address] Physician Hematology/Oncology 06/25/19 Maryanne Tavarez PA-C [address] [facility] [place] [address] Physician Global Marketing Operations Manager Hematology/Oncology 06/25/19 Ray Thompson, DO [address] [place] [address] Consulting HOSPICE & PALLIATIVE MEDICINE 02/03/21 Anne Tran, VIK Specialty Strand Galvanizer HOSPICE & PALLIATIVE MEDICINE 02/03/21 Events Intern Relationship Specialty Start Date End Date Jaimee Morales RN [address] [place] [address] Specialty Strand Galvanizer Hematology/Oncology 06/25/19 Araceli Betts MD [address] [place] [address] Physician Hematology/Oncology 06/25/19 Maryanne Tavarez, PAMalickC [address] [place] [address] Physician Global Marketing Operations Manager Hematology/Oncology 06/25/19 Thompson Bell, DO [address] [place] [address] Consulting HOSPICE & PALLIATIVE MEDICINE 02/03/21 Anne Tran, VIK Specialty Strand Galvanizer HOSPICE & PALLIATIVE MEDICINE 02/03/21 Events Intern Relationship Specialty Start Date End Date Jaimee Morales RN [address] [place] [address] Specialty Strand Galvanizer Hematology/Oncology 06/25/19 Araceli Betts MD [address] [place] [address] Physician Hematology/Oncology 06/25/19 Maryanne Tavarez, PAMalickC [address] [place] [address] Physician Global Marketing Operations Manager Hematology/Oncology 06/25/19 Thompson Bell, DO [address] [place] [address] Consulting HOSPICE & PALLIATIVE MEDICINE 02/03/21 Anne Tran, RN Specialty Strand Galvanizer HOSPICE & PALLIATIVE MEDICINE 02/03/21 Events Intern Relationship Specialty Start Date End Date Jaimee Morales RN [address] [place] [address] Specialty Strand Galvanizer Hematology/Oncology 06/25/19 Araceli Betts MD [address] [place] [address] Physician Hematology/Oncology 06/25/19 Maryanne Tavarez, CANDIEC [address] [place] [address] Physician Global Marketing Operations Manager Hematology/Oncology 06/25/19 Thompson Bell, DO [address] [place] [address] Consulting HOSPICE & PALLIATIVE MEDICINE 02/03/21 Anne Tran, RN Specialty Strand Galvanizer HOSPICE & PALLIATIVE MEDICINE 02/03/21 Events Intern Relationship Specialty Start Date End Date Jaimee Morales RN [address] [place] [address] Specialty Strand Galvanizer Hematology/Oncology 06/25/19 Araceli Betts MD [address] [place] [address] Physician Hematology/Oncology 06/25/19 Maryanne Tavarez PAMalickC [address] [facility] [place] [address] Physician Global Marketing Operations Manager Hematology/Oncology 06/25/19 Thompson Bell, DO [address] [place] [address] Consulting HOSPICE & PALLIATIVE MEDICINE 02/03/21 Anne Tran, RN Specialty Strand Galvanizer HOSPICE & PALLIATIVE MEDICINE 02/03/21 Events Intern Relationship Specialty Start Date End Date Jaimee Morales RN [address] [place] [address] [place] [address] Specialty Strand Galvanizer Hematology/Oncology 06/25/19 Araceli Betts MD [address] [place] [address] Physician Hematology/Oncology 06/25/19 Maryanne Tavarez, PAMalickC [address] [place] [address] [place] [address] Physician Global Marketing Operations Manager Hematology/Oncology 06/25/19 Thompson Bell, DO [address] [place], [place] [id number] Consulting HOSPICE & PALLIATIVE MEDICINE 02/03/21 Anne Tran, VIK Specialty Strand Galvanizer HOSPICE & PALLIATIVE MEDICINE 02/03/21 Events Intern Relationship Specialty Start Date End Date German Davila, DO [address] [place] [address] PCP - General Emergency Medicine 02/21/23 Events Intern Relationship Specialty Start Date End Date Jaimee Morales RN [address] [place] [address] [place] [address] Specialty Strand Galvanizer Hematology/Oncology 06/25/19 Araceli Betts MD [address] [place] [address] Physician Hematology/Oncology 06/25/19 Maryanne Tavarez, PAMalickC [address] [place] [address] [place] [address] Physician Global Marketing Operations Manager Hematology/Oncology 06/25/19 Thompson Bell, DO [address] [place] [address] Consulting HOSPICE & PALLIATIVE MEDICINE 02/03/21 Anne Tran, RN Specialty Strand Galvanizer HOSPICE & PALLIATIVE MEDICINE 02/03/21 Events Intern Relationship Specialty Start Date End Date Jaimee Morales RN [address] [place] [place] [address] Specialty Strand Galvanizer Hematology/Oncology 06/25/19 Araceli Betts MD [address] [place] [address] Physician Hematology/Oncology 06/25/19 Maryanne Tavarez PA-C [address] [place] [address] Physician Global Marketing Operations Manager Hematology/Oncology 06/25/19 Thompson Bell, DO [address] [place] [address] Consulting HOSPICE & PALLIATIVE MEDICINE 02/03/21 Anne Tran, VIK Specialty Strand Galvanizer HOSPICE & PALLIATIVE MEDICINE 02/03/21 Events Intern Relationship Specialty Start Date End Date Jaimee Morales RN [address] [place] [address] Specialty Strand Galvanizer Hematology/Oncology 06/25/19 Araceli Betts MD [address] [place] [address] Physician Hematology/Oncology 06/25/19 Maryanne Tavarez PAScott [address] [place] [address] Physician Global Marketing Operations Manager Hematology/Oncology 06/25/19 Thompson Bell, DO [address] [place] [address] Consulting HOSPICE & PALLIATIVE MEDICINE 02/03/21 Anne Tran, VIK Specialty Strand Galvanizer HOSPICE & PALLIATIVE MEDICINE 02/03/21 Events Intern Relationship Specialty Start Date End Date Jaimee Morales RN [address] [place] [place] [address] Specialty Strand Galvanizer Hematology/Oncology 06/25/19 Araceli Betts MD [address] [place] [address] Physician Hematology/Oncology 06/25/19 Maryanne Tavarez PA-C [address] [facility] [place] [address] Physician Global Marketing Operations Manager Hematology/Oncology 06/25/19 Thompson Bell, [address] [place] [address] Consulting HOSPICE & PALLIATIVE MEDICINE 02/03/21 Anne Tran, RN Specialty Strand Galvanizer HOSPICE & PALLIATIVE MEDICINE 02/03/21 Events Intern Relationship Specialty Start Date End Date Jaimee Morales RN [address] [facility] [place] [address] Specialty Strand Galvanizer Hematology/Oncology 06/25/19 Araceli Betts MD [address] [place] [address] Physician Hematology/Oncology 06/25/19 Maryanne Tavarez PA-C [address] [facility] [place] [address] Physician Global Marketing Operations Manager Hematology/Oncology 06/25/19 Thompson Bell, DO [address] [place] [address] Consulting HOSPICE & PALLIATIVE MEDICINE 02/03/21 Anne Tran, RN Specialty Strand Galvanizer HOSPICE & PALLIATIVE MEDICINE 02/03/21 Events Intern Relationship Specialty Start Date End Date Jaimee Morales RN [address] [facility] [place] [address] Specialty Strand Galvanizer Hematology/Oncology 06/25/19 Araceli Betts MD [address] [place] [address] Physician Hematology/Oncology 06/25/19 Maryanne Tavarez PA-C [address] [facility] [place] [address] Physician Global Marketing Operations Manager Hematology/Oncology 06/25/19 RayThompson clarke, DO [address] [place] [address] Consulting HOSPICE & PALLIATIVE MEDICINE 02/03/21 Anne Tran, RN Specialty Strand Galvanizer HOSPICE & PALLIATIVE MEDICINE 02/03/21 Events Intern Relationship Specialty Start Date End Date Jaimee Morales RN [address] [place] [address] Specialty Strand Galvanizer Hematology/Oncology 06/25/19 Araceli Betts MD [address] [place] [address] Physician Hematology/Oncology 06/25/19 Maryanne Tavarez PA-C [address] [place] [address] Physician Global Marketing Operations Manager Hematology/Oncology 06/25/19 RayFloydle, DO [address] [place] [address] Consulting HOSPICE & PALLIATIVE MEDICINE 02/03/21 Anne Tran, RN Specialty Strand Galvanizer HOSPICE & PALLIATIVE MEDICINE 02/03/21 Events Intern Relationship Specialty Start Date End Date German Davila DO [address] [place] [address] PCP - General Emergency Medicine 02/21/23 Team Status: Inactive Member Role Status Dates Santos Corona DO Attending Provider Active Start : April 05, 2025 End: April 05, 2025 Events Intern Relationship Specialty Start Date End Date German Davila DO [address] [place] [address] PCP - General Emergency Medicine 02/21/23 (unrecognized sect ion and content) No Status Records FoundNo Status Records FoundNo Status Records FoundNo Status Records FoundNo Status Records Found INFORMATION SOURCE (unrecogn ized section and content) DATE CREATED AUTHOR 02/19/2023 [facility] DATE CREATED AUTHOR AUTHOR'S ORGANIZ ATION 03/01/2023 [facility] DATE CREATED AUTHOR AUTHOR'S ORGANIZ ATION 05/10/2023 [facility] DATE CREATED AUTHOR AUTHOR'S ORGANIZ ATION 04/12/2025 [facility] DATE CREATED AUTHOR AUTHOR'S ORGANIZ ATION 04/19/2025 [facility] Ordered Prescriptions (unrec ognized section and content) Prescription Sig Dispense Quantity Refills Last Filled Start Date End Date tamsulosin (FLOMAX) 0.4 MG capsule Take 1 capsule by mouth daily 30 capsule 02/07/2025 tamsulosin (FLOMAX) 0.4 MG capsule Take 1 capsule by mouth daily 30 capsule 3 02/07/2025 Prescription Sig Dispense Quantity Refills Last Filled Start Date End Date ketorolac (TORADOL) 10 MG tablet Take 1 tablet by mouth every 6 hours as needed for Pain 15 tablet 04/12/2025 oxyBUTYnin (DITROPAN XL) 5 MG extended release tablet Take 1 tablet by mouth daily for 14 days 14 tablet 04/12/2025 04/26/2025 phenazopyridine (PYRIDIUM) 100 MG tablet Take 1 tablet by mouth 3 times daily as needed for Pain 15 tablet 04/12/2025 04/17/2025 doxycycline hyclate (VIBRA-TABS) 100 MG tablet Take 1 tablet by mouth 2 times daily for 3 days 6 tablet 04/12/2025 04/15/2025 Scheduled Active and Recently Administ ered Medications (unrecognized section and content) Medication Order 02/04/2025 02/05/2025 02/06/2025 cefepime (MAXIPIME) 1,000 mg in sodium chloride 0.9 % 50 mL IVPB (addEASE) (COMPLETED) 1,000 mg, IntraVENous, at 12.5 mL/hr, Administer over 240 Minutes, EVERY 24 HOURS, First dose on Tue01/30/25 at 0730, For 8 doses, Use 20mm (GREEN) addEASE Adapter Prep Instructions: Attach medication vial to one 20mm (GREEN) addEASE adapter. Michael fluid bag with adapter, mix, and administer per order. 0858 (New Bag - Provider: Katelyn Huizar RN)1248 (Stopped - Provider: Katelyn Huizar RN) 0800 (New Bag - Provider: Leidy Horan)1309 (Stopped - Provider: Loyda Berry RN - Comment: Stopped later d/t pt being at IR.) 0600 (New Bag - Provider: Martina Irwin RN)1000 (Stopped - Provider: Lennie Vincent RN) heparin (porcine) injection 5,000 Units 5,000 Units, SubCUTAneous, EVERY 8 HOURS SCHEDULED (3 times per day), First dose on Tue02/03/25 at 1400, Until Discontinued, On hold since Tue02/04/2025 at 0917 until manually unheld 0603 (Given - Provider: Peggy Mejia RN)0917 (Held by provider - Provider: Rhys Leigh DO - Reason: Transfer to a Procedural area)1400 (Automatically Held - Provider: Rhys Leigh DO)2200 (Automatically Held - Provider: Rhys Leigh DO) 0600 (Automatically Held - Provider: Rhys Leigh DO)1400 (Automatically Held - Provider: Rhys Legih DO)2200 (Automatically Held - Provider: Rhys Leigh DO) 0600 (Automatically Held - Provider: Rhys Leigh DO)1400 (Automatically Held - Provider: Rhys Leigh DO)2200 (Automatically Held - Provider: Rhys Leigh DO) insulin lispro (HUMALOG,ADMELOG) injection vial 0-4 Units 0-4 Units, SubCUTAneous, 4 TIMES DAILY BEFORE MEALS & NIGHTLY, First dose on Tue02/01/25 at 2215, Until Discontinued, Corrective Low Dose Algorithm Glucose: Dose: 70-179 No Insulin 180-249 1 Unit 250-299 2 Units 300-349 3 Units Over 349 4 Units and notify physician Administer as soon as possible within 60 minutes of last blood glucose check 0834 (Not Given - Provider: Katelyn Huizar RN - Reason: Order parameters not met)1129 (Not Given - Provider: Katelyn Huizar RN - Reason: Patient not available)1703 (Not Given - Provider: Katelyn Huizar RN - Reason: Order parameters not met)204 (Not Given - Provider: Peggy Mejia RN - Reason: Order parameters not met) 0735 (Not Given - Provider: Alecia Coates RN - Reason: Order parameters not met - Comment: 97)1246 (Not Given - Provider: Loyda Berry RN - Reason: Other - Comment: Patient off unit at IR.)1715 (Not Given - Provider: Loyda Berry RN - Reason: Order parameters not met - Comment: BG 107)2024 (Not Given - Provider: Martina Irwin RN - Reason: Order parameters not met - Comment: BS 106) 0818 (Not Given - Provider: Leidy Hollins RN - Reason: Order parameters not met)1153 (Not Given - Provider: Lennie Vincent RN - Reason: Patient/family refused - Comment: pt being discharged)1700 (Due)2100 (Due) metoprolol tartrate (LOPRESSOR) tablet 12.5 mg 12.5 mg, Oral, 2 TIMES DAILY, First dose on Tue02/03/25 at 1000, Until Discontinued, Hold for systolic blood pressure less than 100, heart rate less than 60 0857 (Given - Provider: Katelyn Huizar RN)2042 (Given - Provider: Peggy Mejia RN) 0802 (Given - Provider: Leidy Horan)203 (Given - Provider: Martina Irwin RN) 0843 (Given - Provider: Leidy Hollins RN)2100 (Due) nicotine (NICODERM CQ) 14 MG/24HR 1 patch 1 patch, TransDERmal, Administer over 24 Hours, DAILY, First dose on Kaitlin 01/31/25 at 0900, Apply new patch to nonhairy, clean, dry skin on the upper body or upper outer arm. Rotate patch sites. Notify pharmacy if patient or provider prefers patch to be removed at bedtime and replaced in the morning. Hazardous Medication -- Refer to facility policy for handling and disposal. 1115 (Not Given - Provider: Katelyn Huizar RN - Reason: Patient/family refused) 0801 (Not Given - Provider: Leidy Horan - Reason: Patient/family refused) 0850 (Not Given - Provider: Leidy Hollins RN - Reason: Patient/family refused) sodium chloride flush 0.9 % injection 5-40 mL 5-40 mL, IntraVENous, EVERY 12 HOURS SCHEDULED (2 times per day), First dose on Tue01/30/25 at 0900, Until Discontinued, For Line Patency: Peripheral IV = 5 mL; Midline or Central Line = 10 mL/lumen. If following IV push medication, administer flush at same rate as the IV push. Flush volume is determined by type of infusion therapy being given. For non-viscous solutions use: Peripheral IV = 5 mL Midline or Central Line = 10 mL/lumen For viscous solutions (i.e. blood components, parenteral nutrition, contrast media, or after obtaining blood sample) use: Peripheral IV = 10 mL Midline or Central Line = 20 mL/lumen 1115 (Not Given - Provider: Katelyn Huizar RN - Reason: IV Fluid Infusing)2050 (Not Given - Provider: Peggy Mejia RN - Reason: IV Fluid Infusing) 0801 (Given - Provider: Leidy Horan)204 (Not Given - Provider: Martina Irwin RN - Reason: IV Fluid Infusing) 0855 (Not Given - Provider: Lennie Vincent RN - Reason: IV Fluid Infusing)2100 (Due) tamsulosin (FLOMAX) capsule 0.4 mg 0.4 mg, Oral, DAILY, First dose on Tue01/30/25 at 0900, Until Discontinued, Do not crush or break. Give 30 minutes after a full meal to limit risk of orthostatic hypotension/falls. 0856 (Given - Provider: Katelyn Huizar RN) 0801 (Given - Provider: Leidy Horan) 0843 (Given - Provider: Leidy Hollins, VIK) Continuous Medication Order 02/04/2025 02/05/2025 02/06/2025 0.9 % sodium chloride infusion IntraVENous, at 125 mL/hr, CONTINUOUS, Starting on Tue01/30/25 at 0500 1553 (Rate/Dose Change - Provider: Katelyn Huizar RN) 0122 (New Bag - Provider: Peggy Mejia RN)0929 (New Bag - Provider: Loyda Berry RN)2008 (New Bag - Provider: Martina Irwin, VIK) 417 (New Bag - Provider: Martina Irwin, RN)103 (Stopped - Provider: Lennie Vincent RN) PRN Medication Order 02/04/2025 02/05/2025 02/06/2025 0.9 % sodium chloride infusion IntraVENous, at 5-250 mL/hr, PRN, if patient receiving piggyback infusions and maintenance fluids are not ordered, Starting on Tue01/30/25 at 0423, For piggyback infusion, administer at same rate as piggyback for a total of 25 mL. Enter 25 mL into dose field and piggyback rate into rate field of order. If piggyback is infusing at a rate less than 100 mL/hr, enter 25 mL into dose field and 100 mL/hr into rate field of order. acetaminophen (TYLENOL) suppository 650 mg(Linked Group 1) 650 mg, Rectal, EVERY 6 HOURS PRN, Starting on Tue01/30/25 at 0423, Until Discontinued, Pain Mild (1-3), allowed for higher pain score per patient request, Fever, For temp greater than 100.4 F (38 C), Administer if oral route cannot be used. 2036 (See Alternative - Provider: Martina Irwin RN) acetaminophen (TYLENOL) tablet 650 mg(Linked Group 1) 650 mg, Oral, EVERY 6 HOURS PRN, Starting on Tue01/30/25 at 0423, Until Discontinued, Pain Mild (1-3), allowed for higher pain score per patient request, Fever, For temp greater than 100.4 F (38 C), Maximum dose of acetaminophen is 4000 mg from all sources in 24 hours. 2036 (Given - Provider: Martina Irwin RN) dextrose 10 % infusion IntraVENous, at 100 mL/hr, CONTINUOUS PRN, if blood glucose remains LESS THAN 70 mg/dL after 2 dextrose 10% intravenous boluses or administration of glucagon, Starting on Tue01/30/25 at 0612, If blood glucose fails to stabilize after 2 dextrose 10% intravenous boluses or glucagon administration, start dextrose 10% infusion at 100 mL/hour and repeat blood glucose at 30 and 60 minutes. If blood glucose is GREATER THAN 70 mg/dL after 60 minutes, discontinue dextrose 10% infusion. dextrose bolus 10% 125 mL(Linked Group 2) 125 mL, IntraVENous, at 937.5 mL/hr, Administer over 8 Minutes, PRN, Other, Blood glucose 40 - 69 mg/dL and patient NOT ALERT or NPO, Starting on Tue01/30/25 at 0612, Repeat blood glucose in 15 minutes. If blood glucose remains LESS THAN 70 mg/dL, repeat treatment and recheck blood glucose in 15 minutes x 2. If using glycemic management system, dose as instructed per system. If blood glucose remains LESS THAN 70 mg/dL after 2 intravenous boluses start dextrose 10% at 100 mL/hour and notify provider. dextrose bolus 10% 250 mL(Linked Group 2) 250 mL, IntraVENous, at 937.5 mL/hr, Administer over 16 Minutes, PRN, Other, Blood glucose LESS THAN 40 mg/dL and patient NOT ALERT or NPO, Starting on Tue01/30/25 at 0612, Repeat blood glucose in 15 minutes. If blood glucose remains LESS THAN 70 mg/dL, repeat treatment and recheck blood glucose in 15 minutes x 2. If using glycemic management system, dose as instructed per system. If blood glucose remains LESS THAN 70 mg/dL after 2 intravenous boluses start dextrose 10% at 100 mL/hour and notify provider. fentaNYL (SUBLIMAZE) injection 50 mcg 50 mcg, IntraVENous, EVERY 2 HOURS PRN, Starting on Tue02/04/25 at 2331, Until Discontinued, Pain Severe (7-10), Pain Moderate (4-6), allowed for higher pain score per patient request, Procedure, If oral and IV narcotics ordered, use oral first and only use IV if oral is ineffective or cannot take oral. Do Not give oral and IV within 1 hour of each other unless specifically ordered. 2336 (Given - Provider: Peggy Mejia RN) fentaNYL (SUBLIMAZE) injection (COMPLETED) PRN, Starting on Tue02/04/25 at 1136, Until Tue02/04/25 at 1136, Intra-op 1136 (Given - Provider: Lydia Joseph RN - Comment: procedural discomfort) fentaNYL (SUBLIMAZE) injection (COMPLETED) PRN, Starting on Tue02/04/25 at 1149, Until Tue02/04/25 at 1149, Intra-op 1149 (Given - Provider: Ldyia Joseph RN - Comment: proced discomfort) fentaNYL (SUBLIMAZE) injection (COMPLETED) PRN, Starting on Tue02/04/25 at 1157, Until Tue02/04/25 at 1157, Intra-op 1157 (Given - Provider: Lydia Joseph RN - Comment: proced discomfort) fentaNYL (SUBLIMAZE) injection (COMPLETED) PRN, Starting on Tue02/05/25 at 1025, Until Tue02/05/25 at 1025, Intra-op 1025 (Given - Provider: Lydia Joseph RN - Comment: PROCED DISCOMFOFRT) glucagon injection 1 mg 1 mg, SubCUTAneous, PRN, Starting on Tue01/30/25 at 0612, Until Discontinued, Low blood sugar, Blood glucose LESS THAN 70 mg/dL and patient NOT ALERT or NPO and does not have IV access., After administration, attempt intravenous access and start dextrose 10% at 100 mL/hr. Repeat blood glucose in 15 minutes x 2 and notify provider. Reconstitute powder for injection by adding 1 mL of insurance salesperson-supplied sterile diluent or sterile water for injection to a vial containing 1 mg of the drug, to provide solutions containing 1 mg/mL. Shake vial gently to dissolve. glucose chewable tablet 16 g 16 g (4 tablet), Oral, PRN, Starting on Tue01/30/25 at 0612, Until Discontinued, Low blood sugar, If blood glucose is LESS THAN 70 mg/dL and patient is alert and tolerating oral. Give 4 tablets (16g) Repeat blood glucose in 15 minutes. If blood glucose is LESS THAN 70 mg/dL, repeat treatment and recheck blood glucose in 15 minutes x 2. If blood glucose remains LESS THAN 70 mg/dL, notify provider. heparin (porcine) injection 1,600 Units 1,600 Units, IntraCATHeter, PRN, Starting on Tue01/30/25 at 1024, Until Discontinued, Line Care, For installation into each catheter limb Venous 1600 units To be given in Dialysis heparin (porcine) injection 1,900 Units 1,900 Units, IntraCATHeter, PRN, Starting on Tue01/30/25 at 0848, Until Discontinued, Line Care, For installation into each catheter limb Arterial 1900 units To be given in Dialysis HYDROmorphone (DILAUDID) injection 1 mg 1 mg, IntraVENous, EVERY 4 HOURS PRN, Starting on Tue01/30/25 at 0457, Until Discontinued, Pain Severe (7-10), If oral and IV narcotics ordered, use oral first and only use IV if oral is ineffective or cannot take oral. Do Not give oral and IV within 1 hour of each other unless specifically ordered. HYDROmorphone (DILAUDID) injection 1 mg 1 mg, IntraVENous, ONCE PRN, Starting on Tue01/30/25 at 0654, Until Discontinued, Second line for procedure hyoscyamine (LEVSIN/SL) sublingual tablet 0.125 mg 0.125 mg, SubLINGual, EVERY 4 HOURS PRN, Starting on Tue01/30/25 at 1347, Until Discontinued, Cramping iohexol (OMNIPAQUE 240) IV/PO solution 50 mL (COMPLETED) 50 mL, Oral, IMG ONCE PRN, 1 dose, Starting on Tue02/04/25 at 1224, Until Tue02/04/25 at 1225, Other 1225 (Given - Provider: Marian Urbina) iohexol (OMNIPAQUE 240) IV/PO solution 50 mL (COMPLETED) 50 mL, Other, IMG ONCE PRN, 1 dose, Starting on Tue02/05/25 at 1026, Until Tue02/05/25 at 1027, Other 1027 (Given - Provider: Julián Newberry) lidocaine (XYLOCAINE) 2 % uro-jet Topical, PRN, Pain, Starting on Kaitlin 01/31/25 at 1050 magnesium sulfate 2000 mg in 50 mL IVPB premix 2,000 mg, IntraVENous, at 25 mL/hr, Administer over 2 Hours, PRN, Other, Per IV Magnesium Replacement Protocol, Starting on Tue01/30/25 at 0423, Mg Lab Replacement Action 1.4-1.6 2 gram IVPB x 1 doses (2 gram Total) 1.0-1.3 2 gram IVPB x 2 doses (4 gram Total) less than 1.0 CALL PHYSICIAN and 2 gram IVPB x 2 doses (4 gram Total) Infuse at 1 gram/hr Repeat Mag level 1 hour after final administration Protocol not for use in Patients with CrCl less than 30mL/min ondansetron (ZOFRAN) injection 4 mg(Linked Group 3) 4 mg, IntraVENous, EVERY 6 HOURS PRN, Starting on Tue01/30/25 at 0423, Until Discontinued, Nausea, Vomiting, Administer if oral route cannot be used. ondansetron (ZOFRAN-ODT) disintegrating tablet 4 mg(Linked Group 3) 4 mg, Oral, EVERY 8 HOURS PRN, Starting on Tue01/30/25 at 422, Until Discontinued, Nausea, Vomiting polyethylene glycol (GLYCOLAX) packet 17 g 17 g, Oral, DAILY PRN, Starting on Tue01/30/25 at 422, Until Discontinued, Constipation, First line therapy for constipation potassium chloride 10 mEq/100 mL IVPB (Peripheral Line)(Linked Group 4) 10 mEq, IntraVENous, PRN, Starting on Tue01/30/25 at 422, Until Discontinued, at 100 mL/hr, Per IV Potassium Replacement Protocol, Use when central line is not available for replacement. K Lab Replacement Action 3.1-3.5 10 mEq IVPB x 4 doses (40 mEq Total) 2.7-3.0 10 mEq IVPB x 6 doses (60 mEq Total) less than 2.7 CALL PHYSICIAN and 10 mEq IVPB x 6 doses (60 mEq Total) Infuse at 10 mEq/hr Repeat Potassium lab 1 hour after final administration. Protocol not for use in Patients with CrCl less than 30mL/min potassium chloride 20 mEq/50 mL IVPB (Central Line)(Linked Group 4) 20 mEq, IntraVENous, PRN, Starting on Tue01/30/25 at 042, Until Discontinued, at 50 mL/hr, Per IV Potassium Replacement Protocol, Use first line when central line is available for replacement. K Lab Replacement Action 3.1-3.5 20 mEq IVPB x 2 doses (40 mEq Total) 2.7-3.0 20 mEq IVPB x 3 doses (60 mEq Total) less than 2.7 CALL PHYSICIAN and 20 mEq IVPB x 3 doses (60 mEq Total) Infuse at 20 mEq/hr Repeat Potassium lab 1 hour after final administration. Protocol not for use in Patients with CrCl less than 30mL/min sodium chloride flush 0.9 % injection 5-40 mL 5-40 mL, IntraVENous, PRN, Starting on Tue01/30/25 at 0423, Until Discontinued, Line Care, After every IV line use, For Line Patency: Peripheral IV = 5 mL; Midline or Central Line = 10 mL/lumen. If following IV push medication, administer flush at same rate as the IV push. Flush volume is determined by type of infusion therapy being given. For non-viscous solutions use: Peripheral IV = 5 mL Midline or Central Line = 10 mL/lumen For viscous solutions (i.e. blood components, parenteral nutrition, contrast media, or after obtaining blood sample) use: Peripheral IV = 10 mL Midline or Central Line = 20 mL/lumen Linked Groups Order Group 1: acetaminophen (TYLENOL) tablet 650 mgJump to med 650 mg, Oral, EVERY 6 HOURS PRN, Starting on Tue01/30/25 at 0423, Until Discontinued, Pain Mild (1-3), allowed for higher pain score per patient request, Fever, For temp greater than 100.4 F (38 C), Maximum dose of acetaminophen is 4000 mg from all sources in 24 hours. Or acetaminophen (TYLENOL) suppository 650 mgJump to med 650 mg, Rectal, EVERY 6 HOURS PRN, Starting on Tue01/30/25 at 0423, Until Discontinued, Pain Mild (1-3), allowed for higher pain score per patient request, Fever, For temp greater than 100.4 F (38 C), Administer if oral route cannot be used. Group 2: dextrose bolus 10% 125 mLJump to med 125 mL, IntraVENous, at 937.5 mL/hr, Administer over 8 Minutes, PRN, Other, Blood glucose 40 - 69 mg/dL and patient NOT ALERT or NPO, Starting on Tue01/30/25 at 0612, Repeat blood glucose in 15 minutes. If blood glucose remains LESS THAN 70 mg/dL, repeat treatment and recheck blood glucose in 15 minutes x 2. If using glycemic management system, dose as instructed per system. If blood glucose remains LESS THAN 70 mg/dL after 2 intravenous boluses start dextrose 10% at 100 mL/hour and notify provider. Or dextrose bolus 10% 250 mLJump to med 250 mL, IntraVENous, at 937.5 mL/hr, Administer over 16 Minutes, PRN, Other, Blood glucose LESS THAN 40 mg/dL and patient NOT ALERT or NPO, Starting on Tue01/30/25 at 0612, Repeat blood glucose in 15 minutes. If blood glucose remains LESS THAN 70 mg/dL, repeat treatment and recheck blood glucose in 15 minutes x 2. If using glycemic management system, dose as instructed per system. If blood glucose remains LESS THAN 70 mg/dL after 2 intravenous boluses start dextrose 10% at 100 mL/hour and notify provider. Group 3: ondansetron (ZOFRAN-ODT) disintegrating tablet 4 mgJump to med 4 mg, Oral, EVERY 8 HOURS PRN, Starting on Tue01/30/25 at 0423, Until Discontinued, Nausea, Vomiting Or ondansetron (ZOFRAN) injection 4 mgJump to med 4 mg, IntraVENous, EVERY 6 HOURS PRN, Starting on Tue01/30/25 at 0423, Until Discontinued, Nausea, Vomiting, Administer if oral route cannot be used. Group 4: potassium chloride 20 mEq/50 mL IVPB (Central Line)Jump to med 20 mEq, IntraVENous, PRN, Starting on Tue01/30/25 at 0423, Until Discontinued, at 50 mL/hr, Per IV Potassium Replacement Protocol, Use first line when central line is available for replacement. K Lab Replacement Action 3.1-3.5 20 mEq IVPB x 2 doses (40 mEq Total) 2.7-3.0 20 mEq IVPB x 3 doses (60 mEq Total) less than 2.7 CALL PHYSICIAN and 20 mEq IVPB x 3 doses (60 mEq Total) Infuse at 20 mEq/hr Repeat Potassium lab 1 hour after final administration. Protocol not for use in Patients with CrCl less than 30mL/min Or potassium chloride 10 mEq/100 mL IVPB (Peripheral Line)Jump to med 10 mEq, IntraVENous, PRN, Starting on Tue01/30/25 at 0423, Until Discontinued, at 100 mL/hr, Per IV Potassium Replacement Protocol, Use when central line is not available for replacement. K Lab Replacement Action 3.1-3.5 10 mEq IVPB x 4 doses (40 mEq Total) 2.7-3.0 10 mEq IVPB x 6 doses (60 mEq Total) less than 2.7 CALL PHYSICIAN and 10 mEq IVPB x 6 doses (60 mEq Total) Infuse at 10 mEq/hr Repeat Potassium lab 1 hour after final administration. Protocol not for use in Patients with CrCl less than 30mL/min Scheduled Medication Order 04/10/2025 04/11/2025 04/12/2025 sodium chloride flush 0.9 % injection 5-40 mL 5-40 mL, IntraVENous, EVERY 12 HOURS SCHEDULED (2 times per day), First dose on Tue04/12/25 at 1115, Until Discontinued, For Line Patency: Peripheral IV = 5 mL; Midline or Central Line = 10 mL/lumen. If following IV push medication, administer flush at same rate as the IV push. Flush volume is determined by type of infusion therapy being given. For non-viscous solutions use: Peripheral IV = 5 mL Midline or Central Line = 10 mL/lumen For viscous solutions (i.e. blood components, parenteral nutrition, contrast media, or after obtaining blood sample) use: Peripheral IV = 10 mL Midline or Central Line = 20 mL/lumen, Pre-op (day of surgery) 1115 (Due)2100 (Due) sodium chloride flush 0.9 % injection 5-40 mL 5-40 mL, IntraVENous, EVERY 12 HOURS SCHEDULED (2 times per day), First dose on Tue04/12/25 at 2100, Until Discontinued, For Line Patency: Peripheral IV = 5 mL; Midline or Central Line = 10 mL/lumen. If following IV push medication, administer flush at same rate as the IV push. Flush volume is determined by type of infusion therapy being given. For non-viscous solutions use: Peripheral IV = 5 mL Midline or Central Line = 10 mL/lumen For viscous solutions (i.e. blood components, parenteral nutrition, contrast media, or after obtaining blood sample) use: Peripheral IV = 10 mL Midline or Central Line = 20 mL/lumen, PACU only 2100 (Due) Continuous Medication Order 04/10/2025 04/11/2025 04/12/2025 0.9 % sodium chloride infusion IntraVENous, at 125 mL/hr, CONTINUOUS, Starting on Tue04/12/25 at 1115, Pre-op (day of surgery) 1115 (Due) lactated ringers infusion IntraVENous, at 125 mL/hr, CONTINUOUS, Starting on Tue04/12/25 at 1115, Pre-op (day of surgery) 1124 (New Bag - Prov ider: Rajwinder Tyler RN)1132 (Paused - Provider: KENTON Ballard CRNA - Comment: Switch to gravity)1133 (Restarted - Provider: KENTON Ballard CRNA)1205 (Anesthesia Volume Adjustment - Provider: KENTON Ballard CRNA) PRN Medication Order 04/10/2025 04/11/2025 04/12/2025 0.9 % sodium chloride infusion IntraVENous, at 5-250 mL/hr, PRN, if patient receiving piggyback infusions and maintenance fluids are not ordered OR KVO fluids to protect IV site / prevent frequent line interruptions/ long duration, Starting on Tue04/12/25 at 1048, For piggyback infusion, administer at same rate as piggyback for a total of 25 mL. Enter 25 mL into dose field and piggyback rate into rate field of order. If piggyback is infusing at a rate less than 100 mL/hr, enter 25 mL into dose field and 100 mL/hr into rate field of order. For KVO fluids, enter rate of 20 mL/hr or less into rate field of order., Pre-op (day of surgery) 0.9 % sodium chloride infusion IntraVENous, at 5-250 mL/hr, PRN, if patient receiving piggyback infusions and maintenance fluids are not ordered OR KVO fluids to protect IV site / prevent frequent line interruptions/ long duration, Starting on Tue04/12/25 at 1215, For piggyback infusion, administer at same rate as piggyback for a total of 25 mL. Enter 25 mL into dose field and piggyback rate into rate field of order. If piggyback is infusing at a rate less than 100 mL/hr, enter 25 mL into dose field and 100 mL/hr into rate field of order. For KVO fluids, enter rate of 20 mL/hr or less into rate field of order., PACU only hydrALAZINE (APRESOLINE) injection 10 mg(Linked Group 1) 10 mg, IntraVENous, EVERY 15 MIN PRN, 2 doses, Starting on Tue04/12/25 at 1215, Until Discontinued, for SBP greater than 180 mmHg for 2 consecutive measurements taken from different sites, If heart rate is greater than 60 bpm, hold hydralazine and use labetalol if ordered, otherwise contact provider. Inform provider if SBP is still greater than 180 mmHg 10 minutes after second antihypertensive dose is administered., PACU only HYDROmorphone (DILAUDID) injection 0.3 mg 0.3 mg, IntraVENous, EVERY 5 MIN PRN, 2 doses, Starting on Tue04/12/25 at 1215, Until Discontinued, Pain Moderate (4-6), allowed for higher pain score per patient request, For Phase I. If Phase II oral narcotics have been administered in the last 60 minutes, do not administer IV narcotics unless specifically approved by provider., PACU only HYDROmorphone (DILAUDID) injection 0.5 mg 0.5 mg, IntraVENous, EVERY 5 MIN PRN, 2 doses, Starting on Tue04/12/25 at 1215, Until Discontinued, Pain Severe (7-10), For Phase I. If Phase II oral narcotics have been administered in the last 60 minutes, do not administer IV narcotics unless specifically approved by provider., PACU only labetalol (NORMODYNE;TRANDATE) injection 10 mg(Linked Group 1) 10 mg, IntraVENous, EVERY 15 MIN PRN, 2 doses, Starting on Tue04/12/25 at 1215, Until Discontinued, High Blood Pressure, for SBP greater than 180 mmHg for 2 consecutive measurements taken from different sites., If heart rate is 60 bpm or less hold labetalol and use hydralazine if ordered, otherwise contact provider. Inform provider if SBP is still greater than 180 mmHg, 10 minutes after second antihypertensive dose is administered., PACU only naloxone 0.4 mg in 10 mL sodium chloride syringe IntraVENous, PRN, Opioid Reversal, Starting on Tue04/12/25 at 1215, PRN if respiratory rate is less than 6/min and patient is difficult to arouse then notify physician STAT. Mix 9 mL of sodium chloride 0.9% with 0.4 mg (1 mL) of naloxone (NARCAN) in 10 mL syringe. (Note: dilution is 0.04 mg/mL) Give 0.08 mg (2 mL of special dilution), slow IV push, repeat up to 0.4 mg (10 mL) or until patient is responsive to physical stimulation and respiratory rate is equal to or greater than 6 breaths/min. Continue to observe, if no response within 3 minutes of administration of 0.4 mg (10 mL) total, repeat dose (0.4 mg as administered previously). Concentration 0.04 mg/mL, PACU only prochlorperazine (COMPAZINE) injection 5 mg 5 mg, IntraVENous, ONCE PRN, 1 dose, Starting on Tue04/12/25 at 1215, Until Discontinued, Nausea, Initial antiemetic therapy., PACU only sodium chloride flush 0.9 % injection 5-40 mL 5-40 mL, IntraVENous, PRN, Starting on Tue04/12/25 at 1048, Until Discontinued, Line Care, After every IV line use, For Line Patency: Peripheral IV = 5 mL; Midline or Central Line = 10 mL/lumen. If following IV push medication, administer flush at same rate as the IV push. Flush volume is determined by type of infusion therapy being given. For non-viscous solutions use: Peripheral IV = 5 mL Midline or Central Line = 10 mL/lumen For viscous solutions (i.e. blood components, parenteral nutrition, contrast media, or after obtaining blood sample) use: Peripheral IV = 10 mL Midline or Central Line = 20 mL/lumen, Pre-op (day of surgery) 1124 (Given - Provid er: Rajwinder Tyler RN) sodium chloride flush 0.9 % injection 5-40 mL 5-40 mL, IntraVENous, PRN, Starting on Tue04/12/25 at 1215, Until Discontinued, Line Care, After every IV line use, For Line Patency: Peripheral IV = 5 mL; Midline or Central Line = 10 mL/lumen. If following IV push medication, administer flush at same rate as the IV push. Flush volume is determined by type of infusion therapy being given. For non-viscous solutions use: Peripheral IV = 5 mL Midline or Central Line = 10 mL/lumen For viscous solutions (i.e. blood components, parenteral nutrition, contrast media, or after obtaining blood sample) use: Peripheral IV = 10 mL Midline or Central Line = 20 mL/lumen, PACU only No Frequency Medication Order 04/10/2025 04/11/2025 04/12/2025 ceFAZolin 2000 mg in 20 mL SWFI IV Syringe IV syringe Starting on Tue04/12/25 at 1106, For 1 dose, Rajwinder Tyler: cabinet override Administer over 5 mins. 1115 (Due) Linked Groups Order Group 1: labetalol (NORMODYNE;TRANDATE) injection 10 mgJump to med 10 mg, IntraVENous, EVERY 15 MIN PRN, 2 doses, Starting on Tue04/12/25 at 1215, Until Discontinued, High Blood Pressure, for SBP greater than 180 mmHg for 2 consecutive measurements taken from different sites., If heart rate is 60 bpm or less hold labetalol and use hydralazine if ordered, otherwise contact provider. Inform provider if SBP is still greater than 180 mmHg, 10 minutes after second antihypertensive dose is administered., PACU only Or hydrALAZINE (APRESOLINE) injection 10 mgJump to med 10 mg, IntraVENous, EVERY 15 MIN PRN, 2 doses, Starting on Tue04/12/25 at 1215, Until Discontinued, for SBP greater than 180 mmHg for 2 consecutive measurements taken from different sites, If heart rate is greater than 60 bpm, hold hydralazine and use labetalol if ordered, otherwise contact provider. Inform provider if SBP is still greater than 180 mmHg 10 minutes after second antihypertensive dose is administered., PACU only Goals (unrecognized section and content) Goals may be documented in a n alternate section FOR RECORDS PERTAINING TO PATIENTS WHO ARE OR HAVE BEEN ENROLLED IN A CHEMICAL DEPENDENCY/SUBSTANCEABUSE PROGRAM, SOME INFORMATION MAY BE OMITTED. This clinical summary was aggregated from multiple sources. Caution should be exercised in using it in the provision of clinical care. This summary normalizes information from multiple sources, and as a consequence, information in this document may materially change the coding, format and clinical context of patient data. In addition, data may be omitted in some cases. CLINICAL DECISIONS SHOULD BE BASED ON THE PRIMARY CLINICAL RECORDS. [email or web address] provides no warranty or guarantee of the accuracy or completeness of information in this document.
--- NOTE | 2025-07-05 12:32 | ED.MALEGU1 ---
HPI - Male Genitourinary General Chief complaint: Urogenital-Male Stated complaint: CATHETER ISSUE Time Seen by Provider: 07/05/25 12:04 Source: patient Mode of arrival: Wheelchair Limitations: no limitations History of Present Illness HPI Narrative: The patient presents to the ED with a complaint of his Hummel catheter not draining. He has had a triple-lumen Hummel catheter in place since January, reportedly due to renal dysfunction, though the exact diagnosis is unclear to the patient. He follows with Dr. Rivera for this condition but missed a recent appointment due to a in the family requiring travel to [place]. This morning, the patient noted that his catheter bag had no urinary output. He denies any associated fever, chills, abdominal pain, or changes in urine color or output prior to today. He states the catheter has not been changed in at least two months. He has no additional complaints at this time. Related Data Home Medications ?Medication ?Instructions ?Recorded ?Confirmed tamsulosin 0.4 mg capsule 0.4 mg PO Q24H 04/05/25 07/05/25 Previous Rx's ?Medication ?Instructions ?Recorded cephalexin 500 mg capsule 500 mg PO TID 7 days #21 caps 07/05/25 Allergies Allergy/AdvReac Type Severity Reaction Status Date / Time acetaminophen (From [facility]) Allergy Unknown Verified 01/29/25 23:34 hydrocodone (From [place]) Allergy Unknown Verified 01/29/25 23:34 PFSH PFSH Social History Little interest or pleasure in doing things: not at all Feeling down, depressed, or hopeless: not at all Exam Constitutional Vital Signs, click to edit/add: Last Vital Signs Temp 98.8 F 07/05/25 12:01 Pulse 79 07/05/25 12:01 Resp 18 07/05/25 12:01 BP 154/96 H 07/05/25 12:01 Pulse Ox 92 L 07/05/25 12:01 O2 Del Method Room Air 07/05/25 12:01 Documenting provider has reviewed patient's vital signs: yes Common normals: no apparent distress, oriented x3 and alert Nutritional appearance: thin Orientation/consciousness: Yes awake, Yes oriented to person, Yes oriented to place and Yes oriented to time HENMT Common normals: normocephalic, head/scalp atraumatic, hearing grossly normal bilaterally, external ears normal, EACs normal, TMs normal bilaterally, external nose normal, nasal mucous membranes and turbinates normal, moist oral mucous membranes, oropharynx normal, dentition normal and gingiva normal Respiratory Common normals: normal respiratory effort, no retractions, no use of accessory muscles, clear to auscultation bilaterally and percussion normal Cardio Common normals: regular rate, regular rhythm, S1 normal heart sound, S2 normal heart sound, no murmurs and peripheral pulses 2+ throughout Common normals: no CVA tenderness Bladder/kidney exam: catheter in place, bladder normal to palpation and no CVA tenderness Penis: normal penis Meatus: meatus normal Extremity Common normals: normal to inspection, full ROM, normal capillary refill, no clubbing, cyanosis or edema and no pedal edema Neuro Common normals: oriented x3 Sensorium/orientation: awake, alert, oriented to person, oriented to place and oriented to time Course Vital Signs Vital signs: Vital Signs Temperature 98.8 F 07/05/25 12:01 Pulse Rate 79 07/05/25 12:01 Respiratory Rate 18 07/05/25 12:01 Blood Pressure 154/96 H 07/05/25 12:01 Pulse Oximetry 92 L 07/05/25 12:01 Oxygen Delivery Method Room Air 07/05/25 12:01 Temperature 98.8 F 07/05/25 12:01 Pulse Rate 79 07/05/25 12:01 Respiratory Rate 18 07/05/25 12:01 Blood Pressure 154/96 H 07/05/25 12:01 Pulse Oximetry 92 L 07/05/25 12:01 Oxygen Delivery Method Room Air 07/05/25 12:01 MDM - Male Genitourinary MDM Narrative Medical decision making narrative: The patient presented with a non-draining Hummel catheter, which had been in place for approximately 2 months. A bladder scan revealed 200 cc of retained urine, and the existing Hummel could not be flushed, suggesting a mechanical obstruction. The catheter was exchanged for a new 22 [place] triple-lumen Hummel without complication. The urine was noted to be cloudy with a strong odor, prompting collection for urinalysis. Urinalysis returned positive for leukocyte esterase and nitrites, indicating a likely urinary tract infection (UTI). Although the patient denies systemic symptoms such as fever, chills, or abdominal pain, the findings are consistent with a catheter-associated UTI. Given the clinical picture and UA results, the patient will be treated with cephalexin (Keflex) 500 mg three times daily for 7 days. He was educated on signs and symptoms of worsening infection and instructed to return to the ED if his condition deteriorates. He was also advised to follow up with his urologist for ongoing care. The patient remains stable and is appropriate for discharge. Procedures/Interventions: Bedside bladder scan showed ~200 cc urine in bladder. Attempted irrigation of existing Hummel catheter unsuccessful ? suspected blockage. Hummel catheter exchanged for new 22 [place] triple-lumen catheter by RN without complication. Urine sample obtained from new catheter sent for urinalysis due to cloudy appearance and strong odor. Medical Records Attestation: I reviewed the patient's medical records. Lab Data Attestation: I reviewed the patient's lab results. Labs: Lab Results 07/05/25 Range/Units 12:24 Urine Color Lt. yellow (YELLOW) Urine Clarity Cloudy A (CLEAR) Urine pH 7.5 (5.0-9.0) Ur Specific [place] 1.015 (1.005-1.025) Urine Protein 30 A (NEG/TRACE) mg/dL Urine Glucose (UA) Negative (NEGATIVE) mg/dL Urine Ketones Negative (NEGATIVE) mg/dL Urine Occult Blood Moderate A (NEGATIVE) Urine Nitrite Positive A (NEGATIVE) Urine Bilirubin Negative (NEGATIVE) Urine Urobilinogen 0.2 (0.2-1.0) EU/dL Ur Leukocyte Esterase Large A (NEGATIVE) Urine RBC 20-50 A (0-2) #/HPF Urine WBC >100 A (NONE SEEN) #/HPF Ur Squamous Epith Cells None seen (NONE/RARE) #/LPF Urine Crystals None seen (None Seen) #/HPF Urine Bacteria Large A (NONE SEEN) #/HPF Urine Casts None seen (NONE SEEN) #/LPF Urine Mucus None seen (NONE SEEN) Ur Culture Indicated? Yes-[facility] [place] Discharge Plan Discharge Chief Complaint: Urogenital-Male Clinical Impression: Complication, blocked Hummel catheter Qualifiers: Encounter type: initial encounter Qualified Code(s): T83.091A - Other mechanical complication of indwelling urethral catheter, initial encounter Urinary tract infection Qualifiers: Urinary tract infection type: catheter-associated UTI Indwelling urinary catheter type: indwelling urethral catheter Encounter type: initial encounter Qualified Code(s): T83.511A - Infection and inflammatory reaction due to indwelling urethral catheter, initial encounter Patient Disposition: Home, Self-Care Time of Disposition Decision: 12:57 Condition: Good Prescriptions / Home Meds: New cephalexin 500 mg capsule 500 mg PO TID 7 Days Qty: 21 0RF No Action tamsulosin 0.4 mg capsule 0.4 mg PO Q24H Print Language: [place] Instructions: Hummel Catheter Placement and Care (ED), Catheter-associated Urinary Tract Infection (ED) Additional Instructions: You were seen today for a blocked Hummel catheter and a suspected urinary tract infection (UTI). Your catheter was replaced successfully, and a urine sample was sent for testing. The results showed signs of infection, so you have been prescribed Keflex (cephalexin) 500 mg, to be taken three times daily for 7 days. It is important to take the full course of antibiotics, even if you start feeling better. Make sure your catheter tubing is not kinked or pulled, and keep the area clean and dry. Monitor for any worsening symptoms such as fever, chills, abdominal or back pain, foul-smelling or bloody urine, or if the catheter stops draining again. If any of these occur, return to the emergency department. You were encouraged to follow up with your urologist, Dr. Rivera, as soon as possible to continue your care. Please call his office to reschedule your missed appointment [facility]. You are being discharged in stable condition. Thank you for allowing us to participate in your care today. Referrals: Physician,Non-Staff, [Primary Care Provider] - 1 week Discharge Date/Time: 07/05/25 13:41
[2025-07-05 12:36] LABS: Glucose Urine UA NEGATIVE (NEGATIVE)
[2025-07-05 12:46] LABS: Cast Seen? NONE SEEN #/LPF (NONE SEEN); Crystals Seen? None Seen #/HPF (None Seen); Urine Culture Indicated YES-FRMC
== END 2025-07-05 13:41 | disposition home or self-care (01) ==
PROVIDERS: Physician Assistant; Emergency Provider Student in an Organized Health Care Education/Training Program
DX: T83.511A Infection and inflammatory reaction due to indwelling urethral catheter, initial encounter (principal); N39.0 Urinary tract infection, site not specified; T83.091A Other mechanical complication of indwelling urethral catheter, initial encounter
CPT/HCPCS: 51798; 81001; 87086; 87088; 87186; 99283

== ENCOUNTER 2025-08-20 21:04 | Emergency (ER) | payer MEDICARE, SELFPAY ==
--- OUTSIDE RECORDS SUMMARY | 2025-08-20 21:33 | XMS_ITS | CCD ---
Author Organization [facility] CliniSyne Care Team Providers Care Rn Compliance Name Role Phone Jaimee Morales RN Unavailable Araceli Betts MD Unavailable Maryanne Tavarez PA-C Unavailable Ray DO, Thompson Unavailable Anne Tran RN Unavailable Unavailable MERARI MARK Attending Unavailable ROSE MARIE, DR GÓMEZ Primary Care Unavailable MELVIN BRIONES Consulting UnavailMERARI Gonzales Admitting Unavailable LOLA Sheehan, DR HOYT Consulting Unavailable MICHELLE STROUD Consulting Unavailable ARACELI BETTS Admitting Unavailable ROSE MARIE, DR GÓMEZ Primary Care Unavailable ARACELI BETTS Attending Unavailable German Davila DO Primary Care Provider Jaimee Morales RN Unavailable [phone] Araceli Betts MD Unavailable Maryanne Tavarez PA-C Unavailable Ray DO, Thompson Unavailable Anne Tran RN Unavailable Unavailable GERMAN DAVILA Primary Care Unavailable TRINIDAD BROWN Referring Unavailabl e GERMAN DAVILA Primary Care Unavailable GABY PARKER Referring Unavailable GERMAN DAVILA Primary Care Unavailable BACKDANAY Referring Unavailable BACKDANAY Attending Unavailable BACK DANAY Admitting Unavailable Ray DO, Thompson Unavailable VALENTE LARA Attending Unavailable VALENTE LARA Admitting Unavailable GERMAN DAVILA Referring Unavailable LY SPICER Referring UnavailLY Preston Attending UnavailIMER Estevez Attending Unavailable TOMÁS GARRETT Referring Unavailable Hay DO, German Pratik Primary Care Provider Pay Santos LOVELL Attending Provider VALENTE LEW JR Admitting Unavailable VALENTE LEW JR Attending Unavailable GERMAN DAVILA Primary Care Unavailable JOSE G MCDONOUGH Attending Unavailable GERMAN DAVILA Primary Care Unavailable NAINA PUCKETT Referring Unavailable RHYS LEIGH Admitting Unavailable MAXIMO FRANCE Consulting Unavailable Benji Wilkins PA-C Attending Provider Santos Corona Admitting Unavailable Santos Corona Attending Unavailable Benji Wilkins Attending Unavailable Benji Wilkins Admitting Unavailable Allergies Allergy Classification Reported Allergen(s) Allergy Type Date of Onset Reaction(s) Facility (20 sources) Acetaminophen / HYDROcodone; Translations: [HYDROCODONE-ACETA MINOPHEN] Drug Allergy 04-24-2019 Unknown [facility] (1 source) Acetaminophen / HYDROcodone Drug Allergy [facility] Repository Medications Current Medications Medication Drug Class(es) [...] on above: Take 2 tablets by [facility] every 8 hours as needed for pain [...] Comment on above: Take 1 tablet by [facility] twice daily for 14 days. calcium chloride [...] for injection by adding 1 mL of optimization engineer-suppl ied sterile diluent or sterile water for [...] for pain. Take 1 tablet by kanika every 6 hours as needed for pain [...] Comment on above: Take 2 tablets by [facility] daily at bedtime. Completed/Discontinued Medications Medication Drug Class(es) Dates Sig (Normalized) Sig (Original) ascorbic acid 500 mg oral tablet (10 sources) Vitamin C Start: 02-16-2023 End: 03-18-2023 take 1 tablet by mouth once daily ascorbic acid, vitamin C, (VITAMIN C) 500 mg tablet Take 1 tablet by mouth once daily. 30 tablet 0 02/16/2023 Active Comment on above: Take 1 tablet by [facility] once daily. baclofen 10 mg oral tablet (9 sources) gamma-Aminobutyric Acid-ergic Agonist Start: 02-16-2023 End: 03-18-2023 take 1 tablet by mouth three times daily baclofen (LIORESAL) 10 mg tablet Take 1 tablet by mouth three times daily. 90 tablet 0 02/16/2023 03/18/2023 Comment on above: Take 1 tablet by kanika th three times daily. 100 ml calcium gluconate [...] Comment on above: Take 1 capsule by [facility] twice daily for 20 days. 0.4 ml [...] for 90 days. Take 2 capsules by [facility] three times daily for 90 days. Glucose [...] by kanika once daily. polyethylene glycol 3350 84196 mg powder for oral solution (1 source) [...] Comment on above: Take 1 tablet by [facility] every 6 hours as needed. 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] Onset: 01-25-2023 Episodic Other [...] Test Name Value Interpretation Reference Range Facility Urine Cultureon 07-05-2025 Bacteria identified Cx Nom (U) ORGANISM: Escherichia coli (O:ESCCOL) [place] Count >100,000 ORGANISM: Morganella morganii (O:DOMINICK) [place] Count >100,000 Aerobic DILLON Charge (NMIC56) ----- SUSCEPTIBILITY ---- ORGANISM: O:ESCCOL ANTIBIOTIC INTERPRETATION DILL[place] Amikacin S <16 Amoxacillin/K Clavulanate S <8 Ampicillin R >16 Ampicillin/Sulbactam I 1616/8 Aztreonam S <4 Cefazolin S <2 Cefepime S <2 Ceftazidime S <1 Ceftazidime/Avibacta m S <4 Ceftolozane/Tazobact am S <2 Ceftriaxone S <1 Cefuroxime S <4 Ciprofloxacin R >2 Ertapenem S <0.5 Gentamicin S <2 Levofloxacin R >4 Meropenem S <1 Meropenem/Vaborbacta m S <2 Nitrofurantoin S <32 Piperacillin/Tazobac huizar S <8 Tetracycline S <4 Tigecycline S <2 Tobramycin S <2 Trimethoprim/Sulfame thoxazole S <0.5 Aerobic DILLON Charge (NMIC56) ----- SUSCEPTIBILITY ---- ORGANISM: O:MORMOR ANTIBIOTIC INTERPRETATION DILLON Amikacin S <16 Ampicillin/Sulbactam I 1616/8 Aztreonam I <4 Cefepime S <2 Ceftazidime I 4 Ceftazidime/Avibacta m S <4 Ceftolozane/Tazobact am S <2 Ceftriaxone I <1 Ciprofloxacin S <0.25 Ertapenem S <0.5 Gentamicin S <2 Levofloxacin S <0.5 Meropenem S <1 Meropenem/Vaborbacta m S <2 Piperacillin/Tazobac huizar I <8 Tetracycline S <4 Tobramycin S <2 Trimethoprim/Sulfame thoxazole S <0.5 [...] RESISTANT TO ALL B-LACTAM DRUGS. PERFORMED BY: [place] [address] PATHOLOGIST FAMILY LIVING EDUCATOR JUAN MARTINEZ M.D. Normal [facility] Comment on above: Performed By: #### C UU #### [facility] [address] Stone Analysison 04-17-2025 Calculi description See Note Normal [facility] Comment on above: Result Comment: (NOT E) Specimen consists of three delcid fragments. The total weight is 110 mg. Performed By: #### A STONE #### [facility] [address] [place] [id number] Tinning Equipment Tender: Julio Cesar Berry MD Composition See Note Normal [facility] Comment on above: Result Comment: (NOT [...] composition determined by FTIR analysis. Performed By: [facility] [address] [place] [address] Candy Polisher: Sam Mcghee MD, PhD CLIA Number: [id number] Performed By: #### A STONE #### [facility] [address] [place], [place] [id number] Tinning Equipment Tender: Julio Cesar Berry MD Mass 110 mg Normal [facility] Comment on above: Performed By: #### A STONE #### [facility] [address] [place] [address] Tinning Equipment Tender: Julio Cesar Berry MD FLUORO FOR SURGICAL PROCEDUR ESon 04-12-2025 FLUORO FOR SURGICAL PROCEDURES Radiology exam is complete. No Radiologist dictation. Please follow up with ordering provider. Final result Normal [facility] Guidance-- during surgeryon 04-12-2025 Radiology exam is complete. No Radiologist dictation. Please follow up with ordering provider. [facility] CONSOLIDATED Urine Cultureon 04-05-2025 Bacteria identified Cx Nom (U) ORGANISM: Klebsiella oxytoca (O:KLEOXY) [place] Count >100,000 ORGANISM: Klebsiella oxytoca (O:KLEOXY) [place] Count 75,000 Aerobic DILLON Charge (NMIC56) ----- [...] RESISTANT TO ALL B-LACTAM DRUGS. PERFORMED BY: [address] [place] [address] PATHOLOGIST FAMILY LIVING EDUCATOR JUAN MARTINEZ M.D. Normal [facility] Comment on above: Performed By: #### C UU #### [facility] [address] [place] [id number] [facility] Basic Metabolic Panelon 01-13 Anion gap [Moles/Vol] 10 mmol/L 9 - 16 mmol/L [facility] Calcium [Mass/Vol] 8.4 mg/dL Low 8.6 - 10. 4 mg/dL [facility] Chloride [Moles/Vol] 106 mmol/L 98 - 10 7 mmol/L [facility] CO2 [Moles/Vol] 20 mmol/L 20 - 31 mmol/L [facility] Creatinine [Mass/Vol] 1.8 mg/dL High 0.7 - 1.2 mg/dL [facility] Localisto Est, Glom Filt Rate 42 Low - PINF [facility] Comment on above: These results are not [...] [Mass/Vol] 99 mg/dL 74 - 99 mg/dL [facility] Interpretation and review of laboratory results Abnormal [facility] Potassium [Moles/Vol] 5 mmol/L 3.7 - 5.3 mmol/L [facility] Sodium [Moles/Vol] 136 mmol/L 136 - 145 mmol/L [facility] Urea nitrogen [Mass/Vol] 31 mg/dL High 8 - 23 mg/dL [facility] Basic Metabolic Profon 02-06 Anion gap [Moles/Vol] 10 mmol/L Normal 9-16 [facility] Comment on above: Performed By: #### B MPX, CDP #### [facility] [place] [address] Tinning Equipment Tender: Collin Augustin MD Calcium [Mass/Vol] 8.4 mg/dL Low 8.6-10.4 [facility] Comment on above: Performed By: #### B MPX, CDP #### [facility] [address] [place] [address] Tinning Equipment Tender: Collin Augustin MD Chloride [Moles/Vol] 106 mmol/L Normal 98-107 [facility] Comment on above: Performed By: #### B MPX, CDP #### [facility] [address] [place] [address] Tinning Equipment Tender: Collin Augustin MD CO2 [Moles/Vol] 20 mmol/L Normal 20-31 [facility] Comment on above: Performed By: #### B MPX, CDP #### [facility] [address] [place] [address] Tinning Equipment Tender: Collin Augustin MD Creatinine [Mass/Vol] 1.8 mg/dL High 0.7-1.2 [facility] Comment on above: Performed By: #### B MPX, CDP #### [address] [address] Tinning Equipment Tender: Collin Augustin MD GFR/1.73 sq M.predicted among non-blacks MDRD (S/P/Bld) [Vol rate/Area] 42 mL/min/{1.73_m2} Low >60 [facility] Comment on above: Result Comment: These [...] Performed By: #### B MPX, CDP #### [address] [address] Tinning Equipment Tender: Collin Augustin MD Glucose [Mass/Vol] 99 mg/dL Normal 74-99 [facility] Comment on above: Performed By: #### B MPX, CDP #### [facility] [address] [place] [address] Tinning Equipment Tender: Coliln Augustin MD Potassium [Moles/Vol] 5.0 mmol/L Normal 3.7-5.3 [facility] Comment on above: Performed By: #### B MPX, CDP #### [facility] [address] [place] [address] Tinning Equipment Tender: Collin Augustin MD Sodium [Moles/Vol] 136 mmol/L Normal 136-145 [facility] Comment on above: Performed By: #### B MPX, CDP #### [facility] [address] [place] [address] Tinning Equipment Tender: Collin Augustin MD Urea nitrogen [Mass/Vol] 31 mg/dL High 8-23 [facility] Comment on above: Performed By: #### B MPX, CDP #### [facility] [address] [place] [address] Tinning Equipment Tender: Collin Augusitn MD Glucose,Whole Bloodon 2024 Glucose [Mass/Vol] 88 mg/dL Normal 75-110 [facility] IR ANTEGRADE PYELOGRAMon Right nephrostogram shows a patent right ureteral stent. Nephrostomy tube was removed uneventfully. PN RIS Esau Ray MD - 02/06/2025 PROCEDURE: RIGHT NEPHROSTOGRAM WITH [...] the procedure including risks, benefits, and alternatives. Melrose protocol was observed. Sterile gowns, masks, hats and gloves utilized for maximal sterile barrier. Marriage And Family Social Worker view shows a right nephrostomy tube in [...] ureteral stent. Nephrostomy tube was removed uneventfully. [facility] POC Glucose Fingerstickon Glucose [Mass/Vol] 88 mg/dL 75 - 110 mg/dL [facility] Basic Metabolic Panelon 01-13 Anion gap [Moles/Vol] 11 mmol/L 9 - 16 mmol/L [facility] Calcium [Mass/Vol] 8.3 mg/dL Low 8.6 - 10. 4 mg/dL [facility] Chloride [Moles/Vol] 106 mmol/L 98 - 10 7 mmol/L [facility] CO2 [Moles/Vol] 18 mmol/L Low 20 - 31 mmol/L [facility] Creatinine [Mass/Vol] 1.9 mg/dL High 0.7 - 1.2 mg/dL [facility] Localisto Est, Glom Filt Rate 40 Low - PINF [facility] Comment on above: These results are not [...] 107 mg/dL High 74 - 99 mg/dL [facility] Interpretation and review of laboratory results Abnormal [facility] Potassium [Moles/Vol] 4.8 mmol/L 3.7 - 5.3 mmol/L [facility] Sodium [Moles/Vol] 135 mmol/L Low 136 - 145 mmol/L [facility] Urea nitrogen [Mass/Vol] 34 mg/dL High 8 - 23 mg/dL [facility] Basic Metabolic Profon 02-05 Anion gap [Moles/Vol] 11 mmol/L Normal 9-16 [facility] Comment on above: Performed By: #### B MPX, CDP #### [facility] [address] [place] [address] Tinning Equipment Tender: Collin Augustin MD Calcium [Mass/Vol] 8.3 mg/dL Low 8.6-10.4 [facility] Comment on above: Performed By: #### B MPX, CDP #### [facility] [address] [place] [address] Tinning Equipment Tender: Collin Augustin MD Chloride [Moles/Vol] 106 mmol/L Normal 98-107 [facility] Comment on above: Performed By: #### B MPX, CDP #### [facility] [employer] [address] [place] [address] Tinning Equipment Tender: Collin Augustin MD CO2 [Moles/Vol] 18 mmol/L Low 20-31 [facility] Comment on above: Performed By: #### B MPX, CDP #### [facility] [employer] [address] [place] [address] Tinning Equipment Tender: Collin Augustin MD Creatinine [Mass/Vol] 1.9 mg/dL High 0.7-1.2 [facility] Comment on above: Performed By: #### B MPX, CDP #### [facility] [employer] [address] [place] [address] Tinning Equipment Tender: Collin Augustin MD GFR/1.73 sq M.predicted among non-blacks MDRD (S/P/Bld) [Vol rate/Area] 40 mL/min/{1.73_m2} Low >60 [facility] Comment on above: Result Comment: These [...] Performed By: #### B MPX, CDP #### [facility] [address] [place] [address] Tinning Equipment Tender: Collin Augustin MD Glucose [Mass/Vol] 107 mg/dL High 74-99 [facility] Comment on above: Performed By: #### B MPX, CDP #### [facility] [employer] [address] [place] [address] Tinning Equipment Tender: Collin Augustin MD Potassium [Moles/Vol] 4.8 mmol/L Normal 3.7-5.3 [facility] Comment on above: Performed By: #### B MPX, CDP #### [facility] [employer] [address] [place] [address] Tinning Equipment Tender: Collin Augustin MD Sodium [Moles/Vol] 135 mmol/L Low 136-145 [facility] Comment on above: Performed By: #### B MPX, CDP #### [facility] [address] [place] [address] Tinning Equipment Tender: Collin Augustin MD Urea nitrogen [Mass/Vol] 34 mg/dL High 8-23 [facility] Comment on above: Performed By: #### B MPX, CDP #### [facility] [address] [place] [address] Tinning Equipment Tender: Collin Augustin MD Glucose,Whole Bloodon 2024 Glucose [Mass/Vol] 106 mg/dL Normal 75-110 [facility] Glucose [Mass/Vol] 107 mg/dL Normal 75-110 [facility] Glucose [Mass/Vol] 97 mg/dL Normal 75-110 [facility] Hemoglobin and Hematocriton 02-05-2025 Hematocrit (Bld) [Volume fraction] 27.9 % Low 40.7 - 50.3 % [facility] Hemoglobin (Bld) [Mass/Vol] 8.2 g/dL Low 13.0 - 17.0 g/dL [facility] Interpretation and review of laboratory results Abnormal [facility] Hematocrit (Bld) [Volume fraction] 30.7 % Low 40.7 - 50.3 % [facility] Hemoglobin (Bld) [Mass/Vol] 9.1 g/dL Low 13.0 - 17.0 g/dL [facility] Interpretation and review of laboratory results Abnormal [facility] Hgb/Hcton 02-05-2025 Hematocrit (Bld) [Volume fraction] 27.9 % Low 40.7-50.3 [facility] Comment on above: Performed By: #### T ROPI, BMPX #### [employer] [address] [place], [place] [address] Tinning Equipment Tender: Collin Augustin MD Hemoglobin (Bld) [Mass/Vol] 8.2 g/dL Low 13.0-17.0 [facility] Comment on above: Performed By: #### T ROPI, BMPX #### [employer] [address] [place] [address] [phone] Tinning Equipment Tender: Collin Augustin MD Hematocrit (Bld) [Volume fraction] 30.7 % Low 40.7-50.3 [facility] Comment on above: Performed By: #### B MPX, CDP, MG #### [employer] [address] [place] [address] [phone] Tinning Equipment Tender: Collin Augustin MD Hemoglobin (Bld) [Mass/Vol] 9.1 g/dL Low 13.0-17.0 [facility] Comment on above: Performed By: #### B MPX, CDP, MG #### [facility] [address] [place] [address] Tinning Equipment Tender: Collin Augustin MD IR ANTEGRADE PYELOGRAMon Radiology Study observation (narrative) [facility] IR GUIDED NEPHROSTOMY CATH P LACEMENT RIGHTon 02-05-2025 Successful percutaneous right nephrostomy tube placement. Successful antegrade right ureteral stent placement; 8 Welsh by 24 cm double-J stent was deployed. [facility] RIS CONSOLIDATED Esau Egan MD - 02/05/2025 [...] the procedure including risks, benefits, and alternatives. Melrose protocol was followed. Patient is on intravenous [...] over the guidewire. Through the outer 6 Welsh cannula an angled catheter and Glidewire were advanced and negotiated into the ureter. Guidewire and catheter were directed into the bladder. Small amount of contrast injected verifying catheter tip in the bladder. There is a Hummel catheter in place. An Amplatz guidewire was placed through the catheter. An 8 Welsh by 24 cm double-J ureteral stent was deployed with the distal loop formed in the bladder. The proximal loop was formed in the renal pelvis. Small amount of contrast injected verifying appropriate catheter positioning and patency. An 8 Welsh nephrostomy tube was placed over the guidewire [...] Successful antegrade right ureteral stent placement; 8 Welsh by 24 cm double-J stent was deployed. [facility] Localisto [facility] POC Glucose Fingerstickon Glucose [Mass/Vol] 106 mg/dL 75 - 110 mg/dL [facility] Glucose [Mass/Vol] 107 mg/dL 75 - 110 mg/dL [facility] Glucose [Mass/Vol] 97 mg/dL 75 - 110 mg/dL [facility] Basic Metab w/rfx MGon 02-04 Anion gap [Moles/Vol] 13 mmol/L Normal 9-16 [facility] Comment on above: Performed By: #### B MPX, CDP, MG #### [facility] [address] [place] [address] Tinning Equipment Tender: Collin Augustin MD Calcium [Mass/Vol] 8.8 mg/dL Normal 8.6-10.4 [facility] Comment on above: Performed By: #### B MPX, CDP, MG #### [employer] [address] [place] [address] [phone] Tinning Equipment Tender: Collin Augustin MD Chloride [Moles/Vol] 107 mmol/L Normal 98-107 [facility] Comment on above: Performed By: #### B MPX, CDP, MG #### [facility] [address] [place] [address] [phone] Tinning Equipment Tender: Collin Augustin MD CO2 [Moles/Vol] 18 mmol/L Low 20-31 [facility] Comment on above: Performed By: #### B MPX, CDP, MG #### [facility] [address] [place] [address] Tinning Equipment Tender: Collin Augustin MD Creatinine [Mass/Vol] 2.1 mg/dL High 0.7-1.2 [facility] Comment on above: Performed By: #### B MPX, CDP, MG #### [facility] [employer] [address] [place] [phone] Tinning Equipment Tender: Collin Augustin MD GFR/1.73 sq M.predicted among non-blacks MDRD (S/P/Bld) [Vol rate/Area] 35 mL/min/{1.73_m2} Low >60 [facility] Comment on above: Result Comment: These [...] By: #### B MPX, CDP, MG #### [facility] [employer] [address] [place] [address] Tinning Equipment Tender: Collin Augustin MD Glucose [Mass/Vol] 100 mg/dL High 74-99 [facility] Comment on above: Performed By: #### B MPX, CDP, MG #### [facility] [employer] [address] [place] [address] Tinning Equipment Tender: Collin Augustin MD Potassium [Moles/Vol] 4.5 mmol/L Normal 3.7-5.3 [facility] Comment on above: Performed By: #### B MPX, CDP, MG #### [facility] [employer] [address] [place] [address] Tinning Equipment Tender: Collin Augustin MD Sodium [Moles/Vol] 138 mmol/L Normal 136-145 [facility] Comment on above: Performed By: #### B MPX, CDP, MG #### [facility] [address] [place], [place] [phone] Tinning Equipment Tender: Collin Augustin MD Urea nitrogen [Mass/Vol] 29 mg/dL High 8-23 [facility] Comment on above: Performed By: #### B MPX, CDP, MG #### [facility] [address] [place], [place] [phone] Tinning Equipment Tender: Collin Augustin MD Basic Metabolic Panel w/ Ref honey to on 02-04-2025 Anion gap [Moles/Vol] 13 mmol/L 9 - 16 mmol/L [facility] Calcium [Mass/Vol] 8.8 mg/dL 8.6 - 10. 4 mg/dL [facility] [employer] Chloride [Moles/Vol] 107 mmol/L 98 - 10 7 mmol/L [facility] CO2 [Moles/Vol] 18 mmol/L Low 20 - 31 mmol/L [facility] Creatinine [Mass/Vol] 2.1 mg/dL High 0.7 - 1.2 mg/dL [facility] Est, Glom Filt Rate 35 Low - PINF [facility] Local[facility] Comment on above: These results are not [...] 100 mg/dL High 74 - 99 mg/dL [facility] Interpretation and review of laboratory results Abnormal [facility] Potassium [Moles/Vol] 4.5 mmol/L 3.7 - 5.3 mmol/L [facility] [employer] Sodium [Moles/Vol] 138 mmol/L 136 - 145 mmol/L [facility] Urea nitrogen [Mass/Vol] 29 mg/dL High 8 - 23 mg/dL [facility] CBC with Auto Differentialon 02-04-2025 Basophils (Bld) [#/Vol] 0.14 10*3/uL [facility] Basophils/100 WBC (Bld) 2 % 0 - 2 % [facility] Eosinophils (Bld) [#/Vol] 0.76 10*3/uL High [facility] Eosinophils/100 WBC (Bld) 9 % High 1 - 4 % [facility] Erythrocyte distribution width (RBC) [Ratio] 14.6 % High 11.8 - 14.4 % [facility] Hematocrit (Bld) [Volume fraction] 29.4 % Low 40.7 - 50.3 % [facility] Hemoglobin (Bld) [Mass/Vol] 8.8 g/dL Low 13.0 - 17.0 g/dL [facility] Immature granulocytes (Bld) [#/Vol] 0.04 10*3/uL [facility] Immature granulocytes/100 WBC (Bld) 1 % High 0 [facility] Interpretation and review of laboratory results Abnormal [facility] Lymphocytes/100 WBC (Bld) 22 % Low 24 - 43 % [facility] Lymphocytes/100 WBC (Bld) 1.82 % [facility] MCH (RBC) [Entitic mass] 24 pg Low 25.2 - 33.5 pg [facility] MCHC (RBC) [Mass/Vol] 29.9 g/dL 28.4 - 34.8 g/dL [facility] MCV (RBC) [Entitic vol] 80.3 fL Low 82.6 - 102.[address] [facility] Monocytes/100 WBC (Bld) 7 % 3 - 12 % [facility] Monocytes/100 WBC (Bld) 0.57 % [facility] Neutrophils/100 WBC (Bld) 59 % 36 - 65 % [facility] Nucleated RBC/100 WBC (Bld) [Ratio] 0 % 0.0 per 100 WBC [facility] Platelet mean volume (Bld) [Entitic vol] 9.6 fL 8.1 - 13.5 fL [facility] Platelets (Bld) [#/Vol] 297 10*3/uL [facility] RBC (Bld) [#/Vol] 3.66 10*6/uL Low 4.21 - 5.7 7 m/uL [facility] RBC (Bld) [#/Vol] ANISOCYTOSIS PRESENT MICROCYTOSIS PRESENT [facility] Segmented neutrophils/100 WBC (Bld) 4.81 % [facility] WBC other (Bld) [#/Vol] 8.1 [facility] CBC with Diffon 02-04-2025 Abs. Basophil 0.14 k/uL Normal 0.00-0.20 [facility] Comment on above: Performed By: #### B MPX, CDP, MG #### [facility] [employer] [address] [place] [address] [employer] Tender: Collin Augustin MD Abs.Imm.Granulocyte 0.04 k/uL Normal 0.00-0.30 [facility] Comment on above: Performed By: #### B MPX, CDP, MG #### [facility] [employer] [address] [place] [address] [employer]: Collin Augustin MD Abs.Neutrophil (Seg) 4.81 k/uL Normal 1.50-8.10 [facility] Comment on above: Performed By: #### B MPX, CDP, MG #### [facility] [address] [place] [address] [employer]ender: Collin Augustin MD Basophils/100 WBC (Bld) 2 % Normal 0-2 [facility] Comment on above: Performed By: #### B MPX, CDP, MG #### [facility] [address] [place] [address] [phone] [employer]: Collin Augustin MD Eosinophils (Bld) [#/Vol] 0.76 10*3/uL High 0.00-0.44 [facility] Comment on above: Performed By: #### B MPX, CDP, MG #### [facility] [place] [address] [employer]ning Equipment Tender: Collin Augustin MD Eosinophils/100 WBC (Bld) 9 % High 1-4 [facility] Comment on above: Performed By: #### B MPX, CDP, MG #### [facility] [address] [place] [address] [employer] Tender: Collin Augustin MD Erythrocyte distribution width (RBC) [Ratio] 14.6 % High 11.8-14.4 [facility] Comment on above: Performed By: #### B MPX, CDP, MG #### [facility] [employer] [address] [place] [address] [employer]: Collin Augustin MD Hematocrit (Bld) [Volume fraction] 29.4 % Low 40.7-50.3 [facility] Comment on above: Performed By: #### B MPX, CDP, MG #### [facility] [employer] [address] [place] [address] [employer]ender: Collin Augustin MD Hemoglobin (Bld) [Mass/Vol] 8.8 g/dL Low 13.0-17.0 [facility] Comment on above: Performed By: #### B MPX, CDP, MG #### [facility] [address] [place] [address] [employer]: Collin Augustin MD Immature granulocytes/100 WBC (Bld) 1 % High 0 [facility] Comment on above: Performed By: #### B MPX, CDP, MG #### [facility] [employer] [address] [place] [address] [employer] Tender: Collin Augustin MD Lymphocytes (Bld) [#/Vol] 1.82 10*3/uL Normal 1.10-3.70 [facility] Comment on above: Performed By: #### B MPX, CDP, MG #### [employer] [address] [place] [address] [employer] Tender: Collin Augustin MD Lymphocytes/100 WBC (Bld) 22 % Low 24-43 [facility] Comment on above: Performed By: #### B MPX, CDP, MG #### [facility] [address] [place] [address] [employer] Tender: Collin Augustin MD MCH (RBC) [Entitic mass] 24.0 pg Low 25.2-33.5 [facility] Comment on above: Performed By: #### B MPX, CDP, MG #### [address] [address] [employer] Tender: Collin Augustin MD MCHC (RBC) [Mass/Vol] 29.9 g/dL Normal 28.4-34.8 [facility] Comment on above: Performed By: #### B MPX, CDP, MG #### [address] [address] [employer] Tender: Collin Augustin MD MCV (RBC) [Entitic vol] 80.3 fL Low 82.6-102.9 [facility] Comment on above: Performed By: #### B MPX, CDP, MG #### [address] [address] [employer] Tender: Collin Augustin MD Monocytes (Bld) [#/Vol] 0.57 10*3/uL Normal 0.10-1.20 [facility] Comment on above: Performed By: #### B MPX, CDP, MG #### [address] [address] [employer] Tender: Collin Augustin MD Monocytes/100 WBC (Bld) 7 % Normal 3-12 [facility] Comment on above: Performed By: #### B MPX, CDP, MG #### [address] [place] [address] [employer] Tender: oCllin Augustin MD Neutrophil (Seg) 59 % Normal 36-65 [facility] Comment on above: Performed By: #### B MPX, CDP, MG #### [facility] [address] [place] [address] [employer] Tender: Collin Augustin MD NRBC Automated 0.0 per 100 WBC Normal 0.0 [facility] Comment on above: Performed By: #### B MPX, CDP, MG #### [facility] [address] [place] [address] [employer]ender: Collin Augustin MD Platelet mean volume (Bld) [Entitic vol] 9.6 fL Normal 8.1-13.5 [facility] Comment on above: Performed By: #### B MPX, CDP, MG #### [facility] [employer] [address] [place] [address] [employer] Tender: Collin Augustin MD Platelets (Bld) [#/Vol] 297 10*3/uL Normal 138-453 [facility] Comment on above: Performed By: #### B MPX, CDP, MG #### [address] [address] [employer]ning Equipment Tender: Collin Augustin MD RBC (Bld) [#/Vol] 3.66 10*6/uL Low 4.21-5.77 [facility] Comment on above: Performed By: #### B MPX, CDP, MG #### [facility] [address] [place] [address] [employer] Tender: Collin Augustin MD RBC morphology finding Nom (Bld) ANISOCYTOSIS PRESENT Normal [facility] Comment on above: Result Comment: MICR OCYTOSIS PRESENT Performed By: #### B MPX, CDP, MG #### [facility] [employer] [address] [place] [address] [employer] Tender: Collin Augustin MD WBC (Bld) [#/Vol] 8.1 10*3/uL Normal 3.5-11.3 [facility] Comment on above: Performed By: #### B MARIELOS BLANCA MG #### [facility] [address] [place] [address] [phone] [employer]: Collin Augustin MD Glucose,Whole Bloodon 2024 Glucose [Mass/Vol] 127 mg/dL High 75-110 [facility] Glucose [Mass/Vol] 91 mg/dL Normal 75-110 [facility] Glucose [Mass/Vol] 118 mg/dL High 75-110 [facility] Hemoglobin and Hematocriton 02-04-2025 Hematocrit (Bld) [Volume fraction] 28.2 % Low 40.7 - 50.3 % [facility] Hemoglobin (Bld) [Mass/Vol] 8.7 g/dL Low 13.0 - 17.0 g/dL [facility] Interpretation and review of laboratory results Abnormal [facility] Hgb/Hcton 02-04-2025 Hematocrit (Bld) [Volume fraction] 28.2 % Low 40.7-50.3 [facility] Comment on above: Performed By: #### B MARIELOS BLANCA #### [employer] [address] [place] [address] [phone] [employer] Tender: Collin Augustin MD Hemoglobin (Bld) [Mass/Vol] 8.7 g/dL Low 13.0-17.0 [facility] Comment on above: Performed By: #### B EVANGELIST CDP #### [facility] [address] [place] [address] [phone] [employer] T[employer]: Collin Augustin MD IR GUIDED NEPHROSTOMY CATH P LACEMENT RIGHTon 02-04-2025 Radiology Study observation (narrative) [facility] [employer] Magnesiumon 02-04-2025 Magnesium [Mass/Vol] 1.8 mg/dL 1.6 - 2 .4 mg/dL [facility] [employer] Magnesium [Mass/Vol] 1.8 mg/dL Normal 1.6-2.4 [facility] Comment on above: Performed By: #### B MARIELOS BLANCA, MG #### [employer] [address] [place], [place] [phone] [employer] Equipment Tender: Collin Augustin MD No Panel Informationon 02-[address] [facility] [employer] POC Glucose Fingerstickon Glucose [Mass/Vol] 127 mg/dL High 75 - 110 mg/dL [facility] Interpretation and review of laboratory results Abnormal [facility] Glucose [Mass/Vol] 91 mg/dL 75 - 110 mg/dL [facility] Glucose [Mass/Vol] 118 mg/dL High 75 - 110 mg/dL [facility] Interpretation and review of laboratory results Abnormal [facility] PTon 02-04-2025 INR Coag (PPP) [Relative time] 1.0 {INR} Normal [facility] Comment on above: Result Comment: Therapeutic Range: Moderate Anticoagulant Intensity: INR = 2.0-3.0 High Anticoagulant Intensity: INR = 2.5-3.5 Performed By: #### B MARIELOS BLANCA #### [employer] [address] [place], [place] [phone] [employer] Equipment Tender: Collin Augustin MD PT Coag (PPP) [Time] 13.3 s Normal 11.7-14.9 [facility] Comment on above: Performed By: #### B EVANGELIST, CDP #### [employer] [address] [place] [address] [employer] T[employer]: Collin Augustin MD Protime-INRon 02-04-2025 INR Coag (PPP) [Relative time] 1 {INR} [facility] Comment on above: Therapeutic Range: Moderate Anticoagulant Intensity: INR = 2.0-3.0 High Anticoagulant Intensity: INR = 2.5-3.5 PT Coag (PPP) [Time] 13.3 s [facility] Basic Metab w/rfx MGon 02-03 Anion gap [Moles/Vol] 12 mmol/L Normal 9-16 [facility] Comment on above: Performed By: #### B MPX, CDP #### [facility] [address] [place] [address] [employer] Tender: Collin Augustin MD Calcium [Mass/Vol] 8.5 mg/dL Low 8.6-10.4 [facility] Comment on above: Performed By: #### B MPX, CDP #### [facility] [employer] [address] [place] [address] [employer] Tender: Collin Augustin MD Chloride [Moles/Vol] 106 mmol/L Normal 98-107 [facility] Comment on above: Performed By: #### B MPX, CDP #### [facility] [address] [place] [address] [employer] Tender: Collin Augustin MD CO2 [Moles/Vol] 18 mmol/L Low 20-31 [facility] Comment on above: Performed By: #### B MPX, CDP #### [facility] [employer] [address] [place] [address] [employer] Tender: Collin Augustin MD Creatinine [Mass/Vol] 2.5 mg/dL High 0.7-1.2 [facility] Comment on above: Performed By: #### B MPX, CDP #### [facility] [address] [place] [address] [employer] Tender: Collin Augustin MD GFR/1.73 sq M.predicted among non-blacks MDRD (S/P/Bld) [Vol rate/Area] 29 mL/min/{1.73_m2} Low >60 [facility] Comment on above: Result Comment: These [...] Performed By: #### B MPX, CDP #### [employer] [address] [place] [address] [employer] Tender: Collin Augustin MD Glucose [Mass/Vol] 98 mg/dL Normal 74-99 [facility] Comment on above: Performed By: #### B MPX, CDP #### [facility] [address] [place] [address] [employer] Tender: Collin Augustin MD Potassium [Moles/Vol] 4.4 mmol/L Normal 3.7-5.3 [facility] Comment on above: Result Comment: Spec imen hemolysis has exceeded the interference as defined by Hoa. Value may be falsely increased. Suggest recollection if clinically indicated. Performed By: #### B MPX, CDP #### [employer] [address] [place] [address] [employer] Tender: Collin Augustin MD Sodium [Moles/Vol] 136 mmol/L Normal 136-145 [facility] Comment on above: Performed By: #### B MPX, CDP #### [employer] [address] [place] [address] [employer] Tender: Collin Augustin MD Urea nitrogen [Mass/Vol] 27 mg/dL High 07-06 [facility] Comment on above: Performed By: #### B MPX, CDP #### [facility] [address] [place] [address] [employer] Tender: Collin Augustin MD Basic Metabolic Panel w/ Ref honey to MGon 02-03-2025 Anion gap [Moles/Vol] 12 mmol/L 9 - 16 mmol/L [facility] Calcium [Mass/Vol] 8.5 mg/dL Low 8.6 - 10. 4 mg/dL [facility] Chloride [Moles/Vol] 106 mmol/L 98 - 10 7 mmol/L [facility] CO2 [Moles/Vol] 18 mmol/L Low 20 - 31 mmol/L [facility] Creatinine [Mass/Vol] 2.5 mg/dL High 0.7 - 1.2 mg/dL [facility] Est Glom Filt Rate 29 Low - [facility] Comment on above: These results are not [...] [Mass/Vol] 98 mg/dL 74 - 99 mg/dL [facility] Interpretation and review of laboratory results Abnormal [facility] Potassium [Moles/Vol] 4.4 mmol/L 3.7 - 5.3 mmol/L [facility] Comment on above: Specimen hemolysis h as exceeded the interference as defined by Hoa. Value may be falsely increased. Suggest recollection if clinically indicated. Sodium [Moles/Vol] 136 mmol/L 136 - 145 mmol/L [facility] Urea nitrogen [Mass/Vol] 27 mg/dL High 8 - 23 mg/dL [facility] CBC with Auto Differentialon 02-03-2025 Basophils (Bld) [#/Vol] 0.15 10*3/uL [facility] Basophils/100 WBC (Bld) 2 % 0 - 2 % [facility] Eosinophils (Bld) [#/Vol] 0.7 10*3/uL High [facility] Eosinophils/100 WBC (Bld) 9 % High 1 - 4 % [facility] Erythrocyte distribution width (RBC) [Ratio] 14.7 % High 11.8 - 14.4 % [facility] Hematocrit (Bld) [Volume fraction] 28.5 % Low 40.7 - 50.3 % [facility] Hemoglobin (Bld) [Mass/Vol] 8.8 g/dL Low 13.0 - 17.0 g/dL [facility] Immature granulocytes (Bld) [#/Vol] 0.03 10*3/uL [facility] Immature granulocytes/100 WBC (Bld) 0 % 0 [facility] Interpretation and review of laboratory results Abnormal [facility] Lymphocytes/100 WBC (Bld) 18 % Low 24 - 43 % [facility] Lymphocytes/100 WBC (Bld) 1.47 % [facility] MCH (RBC) [Entitic mass] 24.8 pg Low 25.2 - 33.5 pg [facility] MCHC (RBC) [Mass/Vol] 30.9 g/dL 28.4 - 34.8 g/dL [facility] MCV (RBC) [Entitic vol] 80.3 fL Low 82.6 - 102.9 fL [facility] Monocytes/100 WBC (Bld) 9 % 3 - 12 % [facility] Monocytes/100 WBC (Bld) 0.72 % [facility] Neutrophils/100 WBC (Bld) 62 % 36 - 65 % [facility] Nucleated RBC/100 WBC (Bld) [Ratio] 0 % 0.0 per 100 WBC [facility] Platelet mean volume (Bld) [Entitic vol] 9.6 fL 8.1 - 13.5 fL [facility] Platelets (Bld) [#/Vol] 275 10*3/uL [facility] RBC (Bld) [#/Vol] 3.55 10*6/uL Low 4.21 - 5.7 7 m/uL [facility] RBC (Bld) [#/Vol] ANISOCYTOSIS PRESENT MICROCYTOSIS PRESENT [facility] Segmented neutrophils/100 WBC (Bld) 5.08 % [facility] WBC other (Bld) [#/Vol] 8.2 [facility] CBC with Diffon 02-03-2025 Abs. Basophil 0.15 k/uL Normal 0.00-0.20 [facility] Comment on above: Performed By: #### B MPX, MARIELOS #### [facility] [employer] [address] [place] [phone] [employer] Tender: Collin Augustin MD Abs.Imm.Granulocyte 0.03 k/uL Normal 0.00-0.30 [facility] Comment on above: Performed By: #### B MPX, CDP #### [address] [address] [employer] Tender: Collin Augustin MD Abs.Neutrophil (Seg) 5.08 k/uL Normal 1.50-8.10 [facility] Comment on above: Performed By: #### B MPX, CDP #### [facility] [employer] [address] [place] [address] [employer] Tender: Collin Augustin MD Basophils/100 WBC (Bld) 2 % Normal 0-2 [facility] Comment on above: Performed By: #### B MPX, CDP #### [address] [address] [employer] Equipment Tender: Collin Augustin MD Eosinophils (Bld) [#/Vol] 0.70 10*3/uL High 0.00-0.44 [facility] Comment on above: Performed By: #### B MPX, CDP #### [facility] [employer] [address] [place] [address] [employer] Tender: Collin Augustin MD Eosinophils/100 WBC (Bld) 9 % High 1-4 [facility] Comment on above: Performed By: #### B MPX, CDP #### [facility] [employer] [address] [place] [address] [employer] Tender: Collin Augustin MD Erythrocyte distribution width (RBC) [Ratio] 14.7 % High 11.8-14.4 [facility] Comment on above: Performed By: #### B MPX, CDP #### [facility] [employer] [address] [place] [address] [employer] Tender: Collin Augustin MD Hematocrit (Bld) [Volume fraction] 28.5 % Low 40.7-50.3 [facility] Comment on above: Performed By: #### B MPX, CDP #### [facility] [address] [place] [address] [employer] Tender: Collin Augustin MD Hemoglobin (Bld) [Mass/Vol] 8.8 g/dL Low 13.0-17.0 [facility] Comment on above: Performed By: #### B MPX, CDP #### [facility] [address] [place] [address] [employer] Tender: Collin Augustin MD Immature granulocytes/100 WBC (Bld) 0 % Normal 0 [facility] Comment on above: Performed By: #### B MPX, CDP #### [address] [address] [employer] Tender: Collin Augustin MD Lymphocytes (Bld) [#/Vol] 1.47 10*3/uL Normal 1.10-3.70 [facility] Comment on above: Performed By: #### B MPX, CDP #### [address] [address] [employer] Tender: Collin Augustin MD Lymphocytes/100 WBC (Bld) 18 % Low 24-43 [facility] Comment on above: Performed By: #### B MPX, CDP #### [address] [address] [employer] Equipment Tender: Collin Augustin MD MCH (RBC) [Entitic mass] 24.8 pg Low 25.2-33.5 [facility] Comment on above: Performed By: #### B MPX, CDP #### [facility] [employer] [address] [place] [address] [employer] Tender: Collin Augustin MD MCHC (RBC) [Mass/Vol] 30.9 g/dL Normal 28.4-34.8 [facility] Comment on above: Performed By: #### B MPX, CDP #### [place] [address] [employer] Tender: Collin Augustin MD MCV (RBC) [Entitic vol] 80.3 fL Low 82.6-102.9 [facility] Comment on above: Performed By: #### B MPX, CDP #### [place] [address] [employer] Tender: Collin Augustin MD Monocytes (Bld) [#/Vol] 0.72 10*3/uL Normal 0.10-1.20 [facility] Comment on above: Performed By: #### B MPX, CDP #### [place] [address] [employer] Tender: Collin Augustin MD Monocytes/100 WBC (Bld) 9 % Normal 3-12 [facility] Comment on above: Performed By: #### B MPX, CDP #### [place] [address] [employer] Equipment Tender: Collin uAgustin MD Neutrophil (Seg) 62 % Normal 36-65 [facility] Comment on above: Performed By: #### B MPX, CDP #### [place] [address] [employer] Equipment Tender: Collin Augustin MD NRBC Automated 0.0 per 100 WBC Normal 0.0 [facility] Comment on above: Performed By: #### B MPX, CDP #### [place] [address] [employer] Equipment Tender: Collin Augustin MD Platelet mean volume (Bld) [Entitic vol] 9.6 fL Normal 8.1-13.5 [facility] Comment on above: Performed By: #### B MPX, CDP #### [facility] [address] [place] [address] [employer]ning Equipment Tender: Collin Augustin MD Platelets (Bld) [#/Vol] 275 10*3/uL Normal 138-453 [facility] Comment on above: Performed By: #### B MPX, CDP #### [facility] [employer] [address] [place] [address] [employer] Tender: Collin Augustin MD RBC (Bld) [#/Vol] 3.55 10*6/uL Low 4.21-5.77 [facility] Comment on above: Performed By: #### B MPX, CDP #### [facility] [employer] [address] [place] [address] [employer] Tender: Collin Augustin MD RBC morphology finding Nom (Bld) ANISOCYTOSIS PRESENT Normal [facility] Comment on above: Result Comment: MICR OCYTOSIS PRESENT Performed By: #### B MPX, CDP #### [facility] [employer] [address] [place] [address] [employer] Tender: Collin Augustin MD WBC (Bld) [#/Vol] 8.2 10*3/uL Normal 3.5-11.3 [facility] Comment on above: Performed By: #### B MPX, CDP #### [facility] [employer] [address] [place] [address] [employer] Tender: Collin Augustin MD Glucose,Whole Bloodon 2024 Glucose [Mass/Vol] 111 mg/dL High 75-110 [facility] Glucose [Mass/Vol] 110 mg/dL Normal 75-110 [facility] Magnesiumon 02-03-2025 Magnesium [Mass/Vol] 2 mg/dL 1.6 - 2 .4 mg/dL [facility] Magnesium [Mass/Vol] 2.0 mg/dL Normal 1.6-2.4 [facility] Comment on above: Performed By: #### B MPX, CDP #### [employer] [address] [place] [address] [employer] Tender: Collin Augustin MD No Panel Informationon 02-03 [facility] POC Glucose Fingerstickon Glucose [Mass/Vol] 111 mg/dL High 75 - 110 mg/dL [facility] Interpretation and review of laboratory results Abnormal [facility] Glucose [Mass/Vol] 110 mg/dL 75 - 110 mg/dL [facility] Basic Metab w/rfx MGon 02-02 Anion gap [Moles/Vol] 13 mmol/L Normal 9-16 [facility] Comment on above: Performed By: #### Fernanda MIKE BMPX #### [facility] [address] [place] [address] [employer] Tender: Collin Augustin MD Calcium [Mass/Vol] 7.9 mg/dL Low 8.6-10.4 [facility] Comment on above: Performed By: #### TERE WRIGHTX #### [facility] [address] [place] [address] [employer] Equipment Tender: Collin Augustin MD Chloride [Moles/Vol] 105 mmol/L Normal 98-107 [facility] Comment on above: Performed By: #### Fernanda MIKE BMPX #### [facility] [address] [place] [address] [employer] Tender: Collin Augustin MD CO2 [Moles/Vol] 21 mmol/L Normal 20-31 [facility] Comment on above: Performed By: #### Fernanda MIKE BMPX #### [facility] [address] [place] [address] [employer] Tender: Collin Augustin MD Creatinine [Mass/Vol] 3.2 mg/dL High 0.7-1.2 [facility] Comment on above: Performed By: #### Fernanda MIKE BMPX #### [facility] [employer] [address] [place] [address] [employer] Tender: Collin Augustin MD GFR/1.73 sq M.predicted among non-blacks MDRD (S/P/Bld) [Vol rate/Area] 21 mL/min/{1.73_m2} Low >60 [facility] Comment on above: Result Comment: These [...] Performed By: #### Fernanda MIKE BMPX #### [facility] [employer] [address] [place] [address] [employer] Tender: Collin Augustin MD Glucose [Mass/Vol] 111 mg/dL High 74-99 [facility] Comment on above: Performed By: #### TERE WRIGHTX #### [facility] [employer] [address] [place] [address] [employer] T[employer]: Collin Augustin MD Potassium [Moles/Vol] 4.1 mmol/L Normal 3.7-5.3 [facility] Comment on above: Performed By: #### TERE WRIGHTX #### [facility] [address] [place] [address] 96250 [employer]ning Equipment Tender: Collin Augustin MD Sodium [Moles/Vol] 139 mmol/L Normal 136-145 [facility] Comment on above: Performed By: #### TERE WRIGHTX #### [facility] [address] [place] [address] 91207 [employer]ning Equipment Tender: Collin Augustin MD Urea nitrogen [Mass/Vol] 30 mg/dL High 8-23 [facility] Comment on above: Performed By: #### Fernanda SHOEMAKERI, BMPX #### [facility] [address] [phone] [employer] Tender: Collin Augustin MD Basic Metabolic Panel w/ Ref honey to MGon 02-02-2025 Anion gap [Moles/Vol] 13 mmol/L 9 - 16 mmol/L [facility] Calcium [Mass/Vol] 7.9 mg/dL Low 8.6 - 10. 4 mg/dL [facility] Chloride [Moles/Vol] 105 mmol/L 98 - 10 7 mmol/L [facility] CO2 [Moles/Vol] 21 mmol/L 20 - 31 mmol/L [facility] Creatinine [Mass/Vol] 3.2 mg/dL High 0.7 - 1.2 mg/dL [facility] Localisto Est, Glom Filt Rate 21 Low - [facility] Comment on above: These results are not [...] 111 mg/dL High 74 - 99 mg/dL [facility] Potassium [Moles/Vol] 4.1 mmol/L 3.7 - 5.3 mmol/L [facility] Sodium [Moles/Vol] 139 mmol/L 136 - 145 mmol/L [facility] Urea nitrogen [Mass/Vol] 30 mg/dL High 8 - 23 mg/dL [facility] CBC with Auto Differentialon 02-02-2025 Basophils (Bld) [#/Vol] 0.17 10*3/uL [facility] Basophils/100 WBC (Bld) 2 % 0 - 2 % [facility] Eosinophils (Bld) [#/Vol] 0.67 10*3/uL High [facility] Eosinophils/100 WBC (Bld) 7 % High 1 - 4 % [facility] Erythrocyte distribution width (RBC) [Ratio] 15 % High 11.8 - 14.4 % [facility] Hematocrit (Bld) [Volume fraction] 27.5 % Low 40.7 - 50.3 % [facility] Hemoglobin (Bld) [Mass/Vol] 8.5 g/dL Low 13.0 - 17.0 g/dL [facility] Immature granulocytes (Bld) [#/Vol] 0.04 10*3/uL [facility] Immature granulocytes/100 WBC (Bld) 0 % 0 [facility] Interpretation and review of laboratory results Abnormal [facility] Lymphocytes/100 WBC (Bld) 12 % Low 24 - 43 % [facility] Lymphocytes/100 WBC (Bld) 1.16 % [facility] MCH (RBC) [Entitic mass] 24.4 pg Low 25.2 - 33.5 pg [facility] MCHC (RBC) [Mass/Vol] 30.9 g/dL 28.4 - 34.8 g/dL [facility] MCV (RBC) [Entitic vol] 79 fL Low 82.6 - 102.[address] [facility] Monocytes/100 WBC (Bld) 8 % 3 - 12 % [facility] Monocytes/100 WBC (Bld) 0.72 % [facility] Neutrophils/100 WBC (Bld) 71 % High 36 - 65 % [facility] Nucleated RBC/100 WBC (Bld) [Ratio] 0 % 0.0 per 100 WBC [facility] Platelet mean volume (Bld) [Entitic vol] 9.6 fL 8.1 - 13.5 fL [facility] Platelets (Bld) [#/Vol] 283 10*3/uL [facility] RBC (Bld) [#/Vol] 3.48 10*6/uL Low 4.21 - 5.7 7 m/uL [facility] RBC (Bld) [#/Vol] ANISOCYTOSIS PRESENT MICROCYTOSIS PRESENT [facility] Segmented neutrophils/100 WBC (Bld) 6.87 % [facility] WBC other (Bld) [#/Vol] 9.6 [facility] CBC with Diffon 02-02-2025 Abs. Basophil 0.17 k/uL Normal 0.00-0.20 [facility] Comment on above: Performed By: #### Fernanda MIKE BMPX #### [facility] [employer] [address] [place] [address] 16523 Tinning Equipment Tender: Collin Augustin MD Abs.Imm.Granulocyte 0.04 k/uL Normal 0.00-0.30 [facility] Comment on above: Performed By: #### TERE WRIGHTX #### [facility] [employer] [address] [place] [address] 04559 [employer] Tender: Collin Augustin MD Abs.Neutrophil (Seg) 6.87 k/uL Normal 1.50-8.10 [facility] Comment on above: Performed By: #### TERE WRIGHTX #### [facility] [employer] [address] [place] [address] 96036 [employer] Tender: Collin Augustin MD Basophils/100 WBC (Bld) 2 % Normal 0-2 [facility] Comment on above: Performed By: #### TERE WRIGHTX #### [facility] [employer] [address] [place] [address] 96324 [employer] Tender: Collin Augustin MD Eosinophils (Bld) [#/Vol] 0.67 10*3/uL High 0.00-0.44 [facility] Comment on above: Performed By: #### Fernanda MIKE BMPX #### [facility] [employer] [address] [place] [address] 00798 [employer] Tender: Collin Augustin MD Eosinophils/100 WBC (Bld) 7 % High 1-4 [facility] Comment on above: Performed By: #### Fernanda MIKE BMPX #### [facility] [employer] [address] [place] [address] 44524 [employer] Tender: Collin Augustin MD Erythrocyte distribution width (RBC) [Ratio] 15.0 % High 11.8-14.4 [facility] Comment on above: Performed By: #### TERE WRIGHTX #### [facility] [employer] [address] [place] [address] 86229 [employer] Tender: Collin Augustin MD Hematocrit (Bld) [Volume fraction] 27.5 % Low 40.7-50.3 [facility] Comment on above: Performed By: #### Fernanda MIKE BMPX #### [facility] [address] [place] [address] 74889 [employer] Tender: Collin Augustin MD Hemoglobin (Bld) [Mass/Vol] 8.5 g/dL Low 13.0-17.0 [facility] Comment on above: Performed By: #### Fernanda MIKE BMPX #### [facility] [employer] [address] [place] [address] 96578 [employer] Tender: Collin Augustin MD Immature granulocytes/100 WBC (Bld) 0 % Normal 0 [facility] Comment on above: Performed By: #### TERE WRIGHTX #### [facility] [employer] [address] [place] [address] 65939 [employer] Tender: Collin Augustin MD Lymphocytes (Bld) [#/Vol] 1.16 10*3/uL Normal 1.10-3.70 [facility] Comment on above: Performed By: #### Fernanda MIKE BMPX #### [facility] [address] [place] [address] 18688 [employer]ning Equipment Tender: Collin Augustin MD Lymphocytes/100 WBC (Bld) 12 % Low 24-43 [facility] Comment on above: Performed By: #### Fernanda MIKE BMPX #### [facility] [employer] [address] [place] [address] 02914 [employer]ning Equipment Tender: Collin Augustin MD MCH (RBC) [Entitic mass] 24.4 pg Low 25.2-33.5 [facility] Comment on above: Performed By: #### Fernanda MIKE BMPX #### [facility] [employer] [address] [place] [address] 98615 [employer] Equipment Tender: Collin Augustin MD MCHC (RBC) [Mass/Vol] 30.9 g/dL Normal 28.4-34.8 [facility] Comment on above: Performed By: #### T RASHID BMPX #### [facility] [employer] [address] [place] [address] [employer]ning Equipment Tender: Collin Augustin MD MCV (RBC) [Entitic vol] 79.0 fL Low 82.6-102.9 [facility] Comment on above: Performed By: #### Fernanda MIKE BMPX #### [facility] [employer] [address] [place] [address] [employer]ning Equipment Tender: Collin Augustin MD Monocytes (Bld) [#/Vol] 0.72 10*3/uL Normal 0.10-1.20 [facility] Comment on above: Performed By: #### Fernanda MIKE BMPX #### [place] [address] [employer]ning Equipment Tender: Collin Augustin MD Monocytes/100 WBC (Bld) 8 % Normal 3-12 [facility] Comment on above: Performed By: #### Fernanda MIKE BMPX #### [facility] [employer] [address] [place] [address] Tinning Equipment Tender: Clolin Augustin MD Neutrophil (Seg) 71 % High 36-65 [facility] Comment on above: Performed By: #### Fernanda MIKE BMPX #### [facility] [employer] [address] [place] [address] 43348 [employer]ning Equipment Tender: Collin Augustin MD NRBC Automated 0.0 per 100 WBC Normal 0.0 [facility] Comment on above: Performed By: #### T RASHID BMPX #### [facility] [place] [address] Tinning Equipment Tender: Collin Augustin MD Platelet mean volume (Bld) [Entitic vol] 9.6 fL Normal 8.1-13.5 [facility] Comment on above: Performed By: #### Fernanda MIKE BMPX #### [facility] [employer] [address] [place] [address] 13015 Tinning Equipment Tender: Collin Augustin MD Platelets (Bld) [#/Vol] 283 10*3/uL Normal 138-453 [facility] Comment on above: Performed By: #### TERE WRIGHTX #### [facility] [employer] [address] [place] [address] 85338 [employer]ning Equipment Tender: Collin Augustin MD RBC (Bld) [#/Vol] 3.48 10*6/uL Low 4.21-5.77 [facility] Comment on above: Performed By: #### Fernanda MIKE BMPX #### [facility] [employer] [address] [place] [address] 88590 Tinning Equipment Tender: Collin Augustin MD RBC morphology finding Nom (Bld) ANISOCYTOSIS PRESENT Normal [facility] Comment on above: Result Comment: MICR OCYTOSIS PRESENT Performed By: #### Fernanda MIKE BMPX #### [address] [address] Tinning Equipment Tender: Collin Augustin MD WBC (Bld) [#/Vol] 9.6 10*3/uL Normal 3.5-11.3 [facility] Comment on above: Performed By: #### Fernanda MIKE BMPX #### [facility] [employer] [address] [place] [address] 55920 Tinning Equipment Tender: Collin Augustin MD Glucose,Whole Bloodon 2024 Glucose [Mass/Vol] 128 mg/dL High 75-110 [facility] Glucose [Mass/Vol] 131 mg/dL High 75-110 [facility] Glucose [Mass/Vol] 122 mg/dL High 75-110 [facility] Glucose [Mass/Vol] 111 mg/dL High 75-110 [facility] Magnesiumon 02-02-2025 Magnesium [Mass/Vol] 1.5 mg/dL Low 1.6 - 2 .4 mg/dL [facility] Magnesium [Mass/Vol] 1.5 mg/dL Low 1.6-2.4 [facility] Comment on above: Performed By: #### T RASHID, BMPX #### [employer] [address] [place] [address] Tinning Equipment Tender: Collin Augustin MD No Panel Informationon 02-02 Interpretation and review of laboratory results Abnormal [facility] POC Glucose Fingerstickon Glucose [Mass/Vol] 128 mg/dL High 75 - 110 mg/dL [facility] Interpretation and review of laboratory results Abnormal [facility] Glucose [Mass/Vol] 131 mg/dL High 75 - 110 mg/dL [facility] Interpretation and review of laboratory results Abnormal [facility] Glucose [Mass/Vol] 122 mg/dL High 75 - 110 mg/dL [facility] Interpretation and review of laboratory results Abnormal [facility] Glucose [Mass/Vol] 111 mg/dL High 75 - 110 mg/dL [facility] Interpretation and review of laboratory results Abnormal [facility] APTTon 02-01-2025 aPTT Coag (Bld) [Time] 30.2 s [facility] Comment on above: IV Heparin Therapy Range: 66.0-92.0 sec aPTT Coag (Bld) [Time] 30.2 s Normal 23.0-36.5 [facility] Comment on above: Result Comment: IV Heparin Therapy Range: 66.0-92.0 sec Performed By: #### B MPX, CDP #### [employer] [address] [place] [address] 38183 [employer] Equipment Tender: Collin Augustin MD Basic Metab w/rfx MGon 02-01 Anion gap [Moles/Vol] 12 mmol/L Normal 9-16 [facility] Comment on above: Performed By: #### Fernanda MIKE BMPX #### [facility] [employer] [address] [place] [address] 88951 [employer]ning Equipment Tender: Collin Augustin MD Calcium [Mass/Vol] 8.0 mg/dL Low 8.6-10.4 [facility] Comment on above: Performed By: #### Fernanda MIKE BMPX #### [facility] [employer] [address] [place] [address] 62537 [employer] Equipment Tender: Collin Augustin MD Chloride [Moles/Vol] 107 mmol/L Normal 98-107 [facility] Comment on above: Performed By: #### Fernanda MIKE BMPX #### [facility] [employer] [address] [place] [address] 35043 [employer]ning Equipment Tender: Collin Augustin MD CO2 [Moles/Vol] 21 mmol/L Normal 20-31 [facility] Comment on above: Performed By: #### Fernanda MIKE BMPX #### [facility] [employer] [address] [place] [address] 03345 [employer]ning Equipment Tender: Collin Augustin MD Creatinine [Mass/Vol] 4.1 mg/dL High 0.7-1.2 [facility] Comment on above: Performed By: #### Fernanda MIKE BMPX #### [facility] [employer] [address] [place] [address] 24579 [employer] Equipment Tender: Collin Augustin MD GFR/1.73 sq M.predicted among non-blacks MDRD (S/P/Bld) [Vol rate/Area] 16 mL/min/{1.73_m2} Low >60 [facility] Comment on above: Result Comment: These [...] Performed By: #### Fernanda MIKE BMPX #### [employer] [address] [place] [address] 57130 Tinning Equipment Tender: Collin Augustin MD Glucose [Mass/Vol] 108 mg/dL High 74-99 [facility] Comment on above: Performed By: #### TERE WRIGHTX #### [employer] [address] [place] [address] 98390 [employer] Equipment Tender: Collin Augustin MD Potassium [Moles/Vol] 4.0 mmol/L Normal 3.7-5.3 [facility] Comment on above: Performed By: #### Fernanda MIKE BMPX #### [facility] [employer] [address] [place] [address] 68854 Tinning Equipment Tender: Collin Augustin MD Sodium [Moles/Vol] 140 mmol/L Normal 136-145 [facility] Comment on above: Performed By: #### Fernanda MIKE BMPX #### [employer] [address] [place] [address] 10443 Tinning Equipment Tender: Collin Augustin MD Urea nitrogen [Mass/Vol] 36 mg/dL High 8-23 [facility] Comment on above: Performed By: #### Fernanda MIKE BMPX #### [employer] [address] [place] [address] 84162 [employer]ning Equipment Tender: Collin Augustin MD Basic Metabolic Panel w/ Ref honey to MGon 02-01-2025 Anion gap [Moles/Vol] 12 mmol/L 9 - 16 mmol/L [facility] Calcium [Mass/Vol] 8 mg/dL Low 8.6 - 10. 4 mg/dL [facility] Chloride [Moles/Vol] 107 mmol/L 98 - 10 7 mmol/L [facility] CO2 [Moles/Vol] 21 mmol/L 20 - 31 mmol/L [facility] Creatinine [Mass/Vol] 4.1 mg/dL High 0.7 - 1.2 mg/dL [facility] Truong Alcocert Rate 16 Low - [facility] Comment on above: These results are not [...] 108 mg/dL High 74 - 99 mg/dL [facility] Interpretation and review of laboratory results Abnormal [facility] Potassium [Moles/Vol] 4 mmol/L 3.7 - 5.3 mmol/L [facility] Sodium [Moles/Vol] 140 mmol/L 136 - 145 mmol/L [facility] Urea nitrogen [Mass/Vol] 36 mg/dL High 8 - 23 mg/dL [facility] CBC with Auto Differentialon 02-01-2025 Basophils (Bld) [#/Vol] 0.14 10*3/uL [facility] Immature granulocytes (Bld) [#/Vol] 0.04 10*3/uL [facility] Interpretation and review of laboratory results Abnormal [facility] Lymphocytes/100 WBC (Bld) 1.71 % [facility] Monocytes/100 WBC (Bld) 0.7 % [facility] Neutrophils/100 WBC (Bld) 69 % High 36 - 65 % [facility] Nucleated RBC/100 WBC (Bld) [Ratio] 0 % 0.0 per 100 WBC [facility] RBC (Bld) [#/Vol] ANISOCYTOSIS PRESENT MICROCYTOSIS PRESENT [facility] Segmented neutrophils/100 WBC (Bld) 7.25 % [facility] WBC other (Bld) [#/Vol] 10.[address] [facility] CBC with Diffon 02-01-2025 Basophils/100 WBC (Bld) 1 % Normal 0-2 [facility] Comment on above: Performed By: #### Fernanda MIKE BMPX #### [facility] [address] [place] [address] 70914 [employer]ning Equipment Tender: Collin Augustin MD Eosinophils (Bld) [#/Vol] 0.72 10*3/uL High 0.00-0.44 [facility] Comment on above: Performed By: #### TERE WRIGHTX #### [facility] [employer] [address] [place] [address] 32401 [employer] Equipment Tender: Collin Augustin MD Eosinophils/100 WBC (Bld) 7 % High 1-4 [facility] Comment on above: Performed By: #### TERE WRIGHTX #### [facility] [employer] [address] [place] [address] 85476 Tinning Equipment Tender: Collin Augustin MD Erythrocyte distribution width (RBC) [Ratio] 15.1 % High 11.8-14.4 [facility] Comment on above: Performed By: #### TERE WRIGHTX #### [facility] [address] [place] [address] 29021 [employer] Equipment Tender: Collin Augustin MD Hematocrit (Bld) [Volume fraction] 28.5 % Low 40.7-50.3 [facility] Comment on above: Performed By: #### Fernanda MIKE BMPX #### [facility] [address] [place] [address] 06353 Tinning Equipment Tender: Collin Augustin MD Hemoglobin (Bld) [Mass/Vol] 8.8 g/dL Low 13.0-17.0 [facility] Comment on above: Performed By: #### Fernanda MIKE BMPX #### [facility] [address] [place] [address] 22042 Tinning Equipment Tender: Collin Augustin MD Immature granulocytes/100 WBC (Bld) 0 % Normal 0 [facility] Comment on above: Performed By: #### TERE WRIGHTX #### [facility] [employer] [address] [place] [address] [phone] Tinning Equipment Tender: Collin Augustin MD Lymphocytes/100 WBC (Bld) 16 % Low 24-43 [facility] Comment on above: Performed By: #### TERE WRIGHTX #### [facility] [employer] [address] [place], [place] [address] [employer]ning Equipment Tender: Collin Augustin MD MCH (RBC) [Entitic mass] 24.5 pg Low 25.2-33.5 [facility] Comment on above: Performed By: #### TERE WRIGHTX #### [facility] [employer] [address] [place] [address] Tinning Equipment Tender: Collin Augustin MD MCHC (RBC) [Mass/Vol] 30.9 g/dL Normal 28.4-34.8 [facility] Comment on above: Performed By: #### MIKE WRIGHT #### [facility] [employer] [address] [place] [address] [employer]ning Equipment Tender: Collin Augustin MD MCV (RBC) [Entitic vol] 79.4 fL Low 82.6-102.9 [facility] Comment on above: Performed By: #### TERE WRIGHTX #### [facility] [employer] [address] [place] [address] Tinning Equipment Tender: Collin Augustin MD Monocytes/100 WBC (Bld) 7 % Normal 3-12 [facility] Comment on above: Performed By: #### TERE WRIGHTX #### [facility] [employer] [address] [place], [place] [address] [employer] Equipment Tender: Collin Augustin MD Platelet mean volume (Bld) [Entitic vol] 9.3 fL Normal 8.1-13.5 [facility] Comment on above: Performed By: #### Fernanda MIKE BMPX #### [facility] [address] [place] [address] 88827 [employer] Equipment Tender: Collin Augustin MD Platelets (Bld) [#/Vol] 319 10*3/uL Normal 138-453 [facility] Comment on above: Performed By: #### T RASHID BMPX #### [facility] [employer] [address] [place] [address] 56521 [employer] Equipment Tender: Collin Augustin MD RBC (Bld) [#/Vol] 3.59 10*6/uL Low 4.21-5.77 [facility] Comment on above: Performed By: #### Fernanda MIKE BMPX #### [facility] [address] [place] [address] 53890 [employer]ning Equipment Tender: Collin Augustin MD Abs. Basophil 0.14 k/uL Normal 0.00-0.20 [facility] Comment on above: Performed By: #### Fernanda MIKE BMPX #### [facility] [employer] [address] [place] [address] 35632 Tinning Equipment Tender: Collin Augustin MD Abs.Imm.Granulocyte 0.04 k/uL Normal 0.00-0.30 [facility] Comment on above: Performed By: #### Fernanda MIKE BMPX #### [facility] [employer] [address] [place] [address] 04763 [employer] Equipment Tender: Collin Augustin MD Abs.Neutrophil (Seg) 7.25 k/uL Normal 1.50-8.10 [facility] Comment on above: Performed By: #### Fernanda MIKE BMPX #### [facility] [employer] [address] [place] [address] 91882 [employer] Equipment Tender: Collin Augustin MD Lymphocytes (Bld) [#/Vol] 1.71 10*3/uL Normal 1.10-3.70 [facility] Comment on above: Performed By: #### Fernanda MIKE BMPX #### [facility] [employer] [facility] [place] [address] [employer]ning Equipment Tender: Collin Augustin MD Monocytes (Bld) [#/Vol] 0.70 10*3/uL Normal 0.10-1.20 [facility] Comment on above: Performed By: #### T RASHID BMPX #### [facility] [employer] [address] [place] [address] 27474 [employer] Equipment Tender: Collin Augustin MD Neutrophil (Seg) 69 % High 36-65 [facility] Comment on above: Performed By: #### T RASHID BMPX #### [facility] [employer] [address] [place] [address] 36759 [employer] Equipment Tender: Collin Augustin MD NRBC Automated 0.0 per 100 WBC Normal 0.0 [facility] Comment on above: Performed By: #### Fernanda MIKE BMPX #### [facility] [employer] [address] [place] [address] 18380 [employer] Equipment Tender: Collin Augustin MD RBC morphology finding Nom (Bld) ANISOCYTOSIS PRESENT Normal [facility] Comment on above: Result Comment: MICR OCYTOSIS PRESENT Performed By: #### T RASHID BMPX #### [facility] [employer] [address] [place] [address] 34072 [employer] Equipment Tender: Collin Augustin MD WBC (Bld) [#/Vol] 10.6 10*3/uL Normal 3.5-11.3 [facility] Comment on above: Performed By: #### T RASHID BMPX #### [facility] [employer] [address] [place] [address] 51050 [employer] Tender: Collin Augustin MD Electrophoresis Protein, Ser umon 02-01-2025 Albumin % 47 % Low 56 - 66 % [facility] Albumin [Mass/Vol] 3.3 g/dL 3.2 - 5.2 g/dL [facility] Alpha 1 globulin Elph [Mass/Vol] 0.6 g/dL High 0.1 - 0.4 g/dL [facility] Alpha 1 globulin Elph [Mass/Vol] 9 % High 3 - 5 % [facility] Alpha 2 % 13 % High 7 - 12 % [facility] Alpha 2 globulin Elph [Mass/Vol] 0.9 g/dL 0.5 - 0.9 g/dL [facility] Beta globulin Elph [Mass/Vol] 1.0 g/dL 0.7 - 1.4 g/dL [facility] Beta globulin Elph [Mass/Vol] 14 % High 8 - 13 % [facility] Gamma Globulin % 18 % 11 - 19 % [facility] Gamma globulin Elph [Mass/Vol] 1.2 g/dL 0.5 - 1.5 g/dL [facility] Interpretation and review of laboratory results Abnormal [facility] Pathologist Cyto stain Nom (Cvx/Vag) [ID] Reviewed by pathologist: Corinna Vanessa M.D. [facility] Protein [Mass/Vol] 7 g/dL 6.6 - 8.7 g/dL [facility] Protein Fractions [Interp] Alpha 1 globulins are elevated. Usually occurs with acute phase [facility] Comment on above: response. May be obs erved in a variety of conditions associated with acute tissue damage/necrosis and/or acute infection/inflammation. Immunotyping is negative for monoclonal immunoglobulin. Total Prot. Sum 7 g/dL 6.3 - 8.2 g/dL [facility] Total Prot. Sum,% 101 % 98 - 102 % [facility] FLUORO FOR SURGICAL PROCEDUR ESon 02-01-2025 FLUORO FOR SURGICAL PROCEDURES Radiology exam is complete. No Radiologist dictation. Please follow up with ordering provider. Final result Normal [facility] Glucose,Whole Bloodon 2024 Glucose [Mass/Vol] 213 mg/dL High 75-110 [facility] Glucose [Mass/Vol] 90 mg/dL Normal 75-110 [facility] Glucose [Mass/Vol] 107 mg/dL Normal 75-110 [facility] Glucose [Mass/Vol] 120 mg/dL High 75-110 [facility] Glucose [Mass/Vol] 165 mg/dL High 75-110 [facility] Guidance-- during surgeryon 02-01-2025 Radiology exam is complete. No Radiologist dictation. Please follow up with ordering provider. [facility] RIS CONSOLIDATED Immunotyping, Serumon 2024 ITYP Interpretation Immunotyping is negative for monoclonal immunoglobulin. [facility] Pathologist review [place] (Unsp spec) [Interp] Reviewed by pathologist: Corinna Vanessa M.D. [facility] Immunotyping,Bloodon 025 ITYP - Interpret. Immunotyping is negative for monoclonal immunoglobulin. [facility] Comment on above: Performed By: #### B MPX, CDP, MG #### [employer] [address] [place] [address] [employer]ning Equipment Tender: Collin Augustin MD PATHOLOGIST REVIEW Reviewed by pathologist: Corinna Vanessa M.D. [facility] Comment on above: Performed By: #### B MPX, CDP, MG #### [employer] [address] [place] [address] [employer]ning Equipment Tender: Collin Augustin MD No Panel Informationon 02-01 [facility] POC Glucose Fingerstickon Glucose [Mass/Vol] 213 mg/dL High 75 - 110 mg/dL [facility] Interpretation and review of laboratory results Abnormal [facility] Glucose [Mass/Vol] 90 mg/dL 75 - 110 mg/dL [facility] Glucose [Mass/Vol] 107 mg/dL 75 - 110 mg/dL [facility] Glucose [Mass/Vol] 120 mg/dL High 75 - 110 mg/dL [facility] Interpretation and review of laboratory results Abnormal [facility] Glucose [Mass/Vol] 165 mg/dL High 75 - 110 mg/dL [facility] Interpretation and review of laboratory results Abnormal [facility] PTon 02-01-2025 INR Coag (PPP) [Relative time] 1.1 {INR} Normal [facility] Comment on above: Result Comment: Therapeutic Range: Moderate Anticoagulant Intensity: INR = 2.0-3.0 High Anticoagulant Intensity: INR = 2.5-3.5 Performed By: #### B MPX, CDP #### [facility] [address] [place] [address] [employer] Tender: Collin Augustin MD PT Coag (PPP) [Time] 14.4 s Normal 11.7-14.9 [facility] Comment on above: Performed By: #### B MPX, CDP #### [facility] [address] [place] [address] [employer] Tender: Collin Augustin MD Prot. Electroph, Blon 2024 Pathologist Review: Reviewed by pathologist: Corinna Vanessa M.D. Normal [facility] Comment on above: Performed By: #### B MPX, CDP, MG #### [facility] [address] [place] [address] [employer] Tender: Collin Augustin MD Prot. Elect-Interp Alpha 1 globulins are elevated. Usually occurs with acute phase Normal [facility] Comment on above: Result Comment: resp onse. May be observed in a variety of conditions associated with acute tissue damage/necrosis and/or acute infection/inflammation. Immunotyping is negative for monoclonal immunoglobulin. Performed By: #### B MPX, CDP, MG #### [facility] [address] [place] [address] [employer] Tender: Collin Augustin MD Protime-INRon 02-01-2025 INR Coag (PPP) [Relative time] 1.1 {INR} [facility] Comment on above: Therapeutic Range: Moderate Anticoagulant Intensity: INR = 2.0-3.0 High Anticoagulant Intensity: INR = 2.5-3.5 PT Coag (PPP) [Time] 14.4 s [facility] ANAon 01-31-2025 DNA double strand IgG IA Ql (S) NINF [facility] Comment on above: Reference Range: <10.0 Negative 10.0-15.0 Equivocal >15.0 Positive Nuclear Ab IA Ql (S) Negative NEGATIVE [facility] Nuclear IgG IA (S) [Ratio] 0.2 U/mL [facility] - 0.7 U/mL [facility] Comment on above: Reference Range: <0.7 Negative 0.7-1.0 Equivocal >1.0 Positive LENNIE Screen includes U1RNP,RNP70,Sm,Ro(SS-A),La(SS-B),CENP,Scl-70,Jossy-1 JOSE Screenon 01-31-2025 JOSE Screen Negative Normal NEG [facility] Comment on above: Performed By: #### B MPX, CDP, MG #### [employer] [address] [place] [address] [employer] Equipment Tender: Collin Augustin MD Anti-dsDNA <0.5 Normal <10.0 [facility] Comment on above: Result Comment: Reference Range: <10.0 Negative 10.0-15.0 Equivocal >15.0 Positive Performed By: #### B MPX, CDP, MG #### [employer] [address] [place] [address] [employer] Tender: Collin Augustin MD LENNIE Screen 0.2 U/mL Normal <0.7 [facility] Comment on above: Result Comment: Reference Range: <0.7 Negative 0.7-1.0 Equivocal >1.0 Positive LENNIE Screen includes U1RNP,RNP70,Sm,Ro(SS-A),La(SS-B),CENP,Scl-70,Jossy-1 Performed By: #### B MPX, CDP, MG #### [employer] [address] [place], [place] [address] [employer]ning Equipment Tender: Collin Augustin MD Anti-Neutrophilic Cytoplasmi c Antibodyon 01-31-2025 ANCA Myeloperoxidase AU/mL 0.0 - 3 .5 AU/mL [facility] Comment on above: Reference Range: <3.5 Negative 3.5-5.0 Equivocal >5.0 Positive ANCA Proteinase 3 AU/mL 0.0 - 2.0 AU/mL [facility] Comment on above: Reference Range: <2.0 Negative 2.0-3.0 Equivocal >3.0 Positive Basic Metab w/rfx MGon 01-31 Anion gap [Moles/Vol] 16 mmol/L Normal 9-16 [facility] Comment on above: Performed By: #### B MPX, CDP #### [facility] [address] [place] [address] [employer] Tender: Collin Augustin MD Calcium [Mass/Vol] 8.3 mg/dL Low 8.6-10.4 [facility] Comment on above: Performed By: #### B MPX, CDP #### [employer] [address] [place] [address] [employer] Tender: Collin Augustin MD Chloride [Moles/Vol] 101 mmol/L Normal 98-107 [facility] Comment on above: Performed By: #### B MPX, CDP #### [employer] [address] [place] [address] [employer] Equipment Tender: Collin Augustin MD CO2 [Moles/Vol] 20 mmol/L Normal 20-31 [facility] Comment on above: Performed By: #### B MPX, CDP #### [facility] [address] [place] [address] [employer] Tender: Collin Augustin MD Creatinine [Mass/Vol] 5.7 mg/dL Critically high 0.7-1.2 [facility] Comment on above: Result Comment: Prev ious Alert Value Reported Performed By: #### B MPX, CDP #### [employer] [address] [place] [address] [employer] Equipment Tender: Collin Augustin MD GFR/1.73 sq M.predicted among non-blacks MDRD (S/P/Bld) [Vol rate/Area] 11 mL/min/{1.73_m2} Low >60 [facility] Comment on above: Result Comment: These [...] Performed By: #### B MPX, CDP #### [employer] [address] [place] [address] [employer] Tender: Collin Augustin MD Glucose [Mass/Vol] 134 mg/dL High 74-99 [facility] Comment on above: Performed By: #### B MPX, CDP #### [facility] [address] [place] [address] [employer] Tender: Collin Augustin MD Potassium [Moles/Vol] 3.9 mmol/L Normal 3.7-5.3 [facility] Comment on above: Performed By: #### B MPX, CDP #### [facility] [address] [place] [address] [employer] Equipment Tender: Collin Augustin MD Sodium [Moles/Vol] 137 mmol/L Normal 136-145 [facility] Comment on above: Performed By: #### B MPX, CDP #### [facility] [address] [place] [address] [employer] Equipment Tender: Collin Augustin MD Urea nitrogen [Mass/Vol] 50 mg/dL High 8-23 [facility] Comment on above: Performed By: #### B MPX, CDP #### [facility] [employer] [address] [place] [address] [employer] Tender: Collin Augustin MD Basic Metabolic Panel w/ Ref honey to MGon 01-31-2025 Anion gap [Moles/Vol] 16 mmol/L 9 - 16 mmol/L [facility] Calcium [Mass/Vol] 8.3 mg/dL Low 8.6 - 10. 4 mg/dL [facility] Chloride [Moles/Vol] 101 mmol/L 98 - 10 7 mmol/L [facility] CO2 [Moles/Vol] 20 mmol/L 20 - 31 mmol/L [facility] Creatinine [Mass/Vol] 5.7 mg/dL Critically high 0.7 - 1.2 mg/dL [facility] Comment on above: Previous Alert Value Reported EstTruongt Rate 11 Low - [facility] Comment on above: These results are not [...] 134 mg/dL High 74 - 99 mg/dL [facility] Interpretation and review of laboratory results Abnormal [facility] Potassium [Moles/Vol] 3.9 mmol/L 3.7 - 5.3 mmol/L [facility] Sodium [Moles/Vol] 137 mmol/L 136 - 145 mmol/L [facility] Urea nitrogen [Mass/Vol] 50 mg/dL High 8 - 23 mg/dL [facility] CBC with Auto Differentialon 01-31-2025 Basophils (Bld) [#/Vol] 0.15 10*3/uL [facility] Basophils/100 WBC (Bld) 1 % 0 - 2 % [facility] Eosinophils (Bld) [#/Vol] 0.22 10*3/uL [facility] Eosinophils/100 WBC (Bld) 2 % 1 - 4 % [facility] Erythrocyte distribution width (RBC) [Ratio] 15.2 % High 11.8 - 14.4 % [facility] Hematocrit (Bld) [Volume fraction] 32.1 % Low 40.7 - 50.3 % [facility] Hemoglobin (Bld) [Mass/Vol] 9.8 g/dL Low 13.0 - 17.0 g/dL [facility] Immature granulocytes (Bld) [#/Vol] 0.05 10*3/uL [facility] Immature granulocytes/100 WBC (Bld) 0 % 0 [facility] Interpretation and review of laboratory results Abnormal [facility] Lymphocytes/100 WBC (Bld) 12 % Low 24 - 43 % [facility] Lymphocytes/100 WBC (Bld) 1.39 % [facility] MCH (RBC) [Entitic mass] 24 pg Low 25.2 - 33.5 pg [facility] MCHC (RBC) [Mass/Vol] 30.5 g/dL 28.4 - 34.8 g/dL [facility] MCV (RBC) [Entitic vol] 78.7 fL Low 82.6 - 102.[address] [facility] Monocytes/100 WBC (Bld) 8 % 3 - 12 % [facility] Monocytes/100 WBC (Bld) 0.93 % [facility] Neutrophils/100 WBC (Bld) 77 % High 36 - 65 % [facility] Nucleated RBC/100 WBC (Bld) [Ratio] 0 % 0.0 per 100 WBC [facility] Platelet mean volume (Bld) [Entitic vol] 9 fL 8.1 - 13.5 fL [facility] Platelets (Bld) [#/Vol] 345 10*3/uL [facility] RBC (Bld) [#/Vol] 4.08 10*6/uL Low 4.21 - 5.7 7 m/uL [facility] RBC (Bld) [#/Vol] ANISOCYTOSIS PRESENT MICROCYTOSIS PRESENT [facility] Segmented neutrophils/100 WBC (Bld) 9.09 % High [facility] WBC other (Bld) [#/Vol] 11.8 High [facility] CBC with Diffon 01-31-2025 Abs. Basophil 0.15 k/uL Normal 0.00-0.20 [facility] Comment on above: Performed By: #### B MPX, CDP #### [address] [address] [employer] Equipment Tender: Collin Augustin MD Abs.Imm.Granulocyte 0.05 k/uL Normal 0.00-0.30 [facility] Comment on above: Performed By: #### B MPX, CDP #### [facility] [employer] [address] [place] [address] [employer] Equipment Tender: Collin Augustin MD Abs.Neutrophil (Seg) 9.09 k/uL High 1.50-8.10 [facility] Comment on above: Performed By: #### B MPX, CDP #### [place] [address] [employer]ning Equipment Tender: Collin Augustin MD Basophils/100 WBC (Bld) 1 % Normal 0-2 [facility] Comment on above: Performed By: #### B MPX, CDP #### [place] [address] [employer] Equipment Tender: Collin Augustin MD Eosinophils (Bld) [#/Vol] 0.22 10*3/uL Normal 0.00-0.44 [facility] Comment on above: Performed By: #### B MPX, CDP #### [place] [address] [employer]ning Equipment Tender: Collin Augustin MD Eosinophils/100 WBC (Bld) 2 % Normal 1-4 [facility] Comment on above: Performed By: #### B MPX, CDP #### [address] [address] [employer] Equipment Tender: Collin Augustin MD Erythrocyte distribution width (RBC) [Ratio] 15.2 % High 11.8-14.4 [facility] Comment on above: Performed By: #### B MPX, CDP #### [facility] [employer] [address] [place] [address] [employer] Tender: Collin Augustin MD Hematocrit (Bld) [Volume fraction] 32.1 % Low 40.7-50.3 [facility] Comment on above: Performed By: #### B MPX, CDP #### [facility] [address] [place] [address] [employer] Equipment Tender: Collin Augustin MD Hemoglobin (Bld) [Mass/Vol] 9.8 g/dL Low 13.0-17.0 [facility] Comment on above: Performed By: #### B MPX, CDP #### [facility] [employer] [address] [place] [address] [employer] Tender: Collin Augustin MD Immature granulocytes/100 WBC (Bld) 0 % Normal 0 [facility] Comment on above: Performed By: #### B MPX, CDP #### [facility] [employer] [address] [place] [address] [employer] Tender: Collin Augustin MD Lymphocytes (Bld) [#/Vol] 1.39 10*3/uL Normal 1.10-3.70 [facility] Comment on above: Performed By: #### B MPX, CDP #### [facility] [employer] [address] [place] [address] [employer]ning Equipment Tender: Collin Augustin MD Lymphocytes/100 WBC (Bld) 12 % Low 24-43 [facility] Comment on above: Performed By: #### B MPX, CDP #### [facility] [employer] [address] [place] [address] Tinning Equipment Tender: Collin Augustin MD MCH (RBC) [Entitic mass] 24.0 pg Low 25.2-33.5 [facility] Comment on above: Performed By: #### B MPX, CDP #### [address] [address] [employer]ning Equipment Tender: Collin Augustin MD MCHC (RBC) [Mass/Vol] 30.5 g/dL Normal 28.4-34.8 [facility] Comment on above: Performed By: #### B MPX, CDP #### [address] [address] [employer] Equipment Tender: Collin Augustin MD MCV (RBC) [Entitic vol] 78.7 fL Low 82.6-102.9 [facility] Comment on above: Performed By: #### B MPX, CDP #### [address] [address] [employer]ning Equipment Tender: Collin Augustin MD Monocytes (Bld) [#/Vol] 0.93 10*3/uL Normal 0.10-1.20 [facility] Comment on above: Performed By: #### B MPX, CDP #### [address] [address] [employer]ning Equipment Tender: Collin Augustin MD Monocytes/100 WBC (Bld) 8 % Normal 3-12 [facility] Comment on above: Performed By: #### B MPX, CDP #### [address] [address] [employer]ning Equipment Tender: Collin Augustin MD Neutrophil (Seg) 77 % High 36-65 [facility] Comment on above: Performed By: #### B MPX, CDP #### [address] [address] Tinning Equipment Tender: Collin Augustin MD NRBC Automated 0.0 per 100 WBC Normal 0.0 [facility] Comment on above: Performed By: #### B MPX, CDP #### [address] [address] Tinning Equipment Tender: Collin Augustin MD Platelet mean volume (Bld) [Entitic vol] 9.0 fL Normal 8.1-13.5 [facility] Comment on above: Performed By: #### B MPX, CDP #### [address] [address] Tinning Equipment Tender: Collin Augustin MD Platelets (Bld) [#/Vol] 345 10*3/uL Normal 138-453 [facility] Comment on above: Performed By: #### B MPX, CDP #### [address] [address] [employer]ning Equipment Tender: Collin Augustin MD RBC (Bld) [#/Vol] 4.08 10*6/uL Low 4.21-5.77 [facility] Comment on above: Performed By: #### B MPX, CDP #### [address] [address] [employer]ning Equipment Tender: Collin Augustin MD RBC morphology finding Nom (Bld) ANISOCYTOSIS PRESENT Normal [facility] Comment on above: Result Comment: MICR OCYTOSIS PRESENT Performed By: #### B MPX, CDP #### [address] [address] Tinning Equipment Tender: Collin Augustin MD WBC (Bld) [#/Vol] 11.8 10*3/uL High 3.5-11.3 [facility] Comment on above: Performed By: #### B MPX, CDP #### [address] [address] Tinning Equipment Tender: Collin Augustin MD Cult,Urineon 01-31-2025 Cult,Urine Specimen Description .CLEAN CATCH URINE Special Requests Site: Urine Culture NO GROWTH Report Status FINAL 01/31/2025 Normal [facility] Comment on above: Performed By: #### B MPX, CDP #### [address] [address] [employer]ning Equipment Tender: Collin Augustin MD Culture, Urineon 01-31-2025 Microorganism identified Cx Nom (Unsp spec) NO GROWTH [employer] Service comment (Unsp spec) [Interp] Site: Urine [employer] Specimen Description .CLEAN CATCH URINE Proximic EKG 12 LeadOrdered By: Celeste Carnes on 01-31-2025 Atrial Rate 98 BPM [employer] Work Phone: P [place] 9 degrees [employer] Work Phone: P-R Interval 126 ms [employer] Work Phone: Q-T Interval 358 ms [employer] Work Phone: QRS Duration 76 ms [employer] Work Phone: QTc Calculation (Bazett) 457 ms [employer] Work Phone: R [place] 10 degrees [employer] Work Phone: T [place] 58 degrees [employer] Work Phone: Ventricular Rate 98 BPM [employer] Work Phone: [employer] Work Phone: EKG 12 Leadon 01-31-2025 Normal [...] T wave abnormality, worse in Lateral leads [employer] Glucose,Whole Bloodon 2024 Glucose [Mass/Vol] 131 mg/dL High 75-110 [facility] Glucose [Mass/Vol] 127 mg/dL High 75-110 [facility] Glucose [Mass/Vol] 131 mg/dL High 75-110 [facility] Neutrophil Cytopl Abon 01-31 MPO-ANCA <0.3 Normal 0.0-3.5 [facility] Comment on above: Result Comment: Reference Range: <3.5 Negative 3.5-5.0 Equivocal >5.0 Positive Performed By: #### B MPX, CDP, MG #### [employer] [address] [place], [place] [phone] Tinning Equipment Tender: Collin Augustin MD PR3-ANCA <0.7 Normal 0.0-2.0 [facility] Comment on above: Result Comment: Reference Range: <2.0 Negative 2.0-3.0 Equivocal >3.0 Positive Performed By: #### B MPX, CDP, MG #### [employer] [address] [place], [place] [id number] [employer] Equipment Tender: Collin Augustin MD No Panel Informationon 01-31 [facility] POC Glucose Fingerstickon Glucose [Mass/Vol] 131 mg/dL High 75 - 110 mg/dL [facility] Interpretation and review of laboratory results Abnormal [facility] Glucose [Mass/Vol] 127 mg/dL High 75 - 110 mg/dL [facility] Interpretation and review of laboratory results Abnormal [facility] Interpretation and review of laboratory results Abnormal [facility] Prot. Electroph, Blon 2024 Albumin [Mass/Vol] 3.3 g/dL Normal 3.2-5.2 [facility] Comment on above: Performed By: #### B MPX, CDP, MG #### [employer] [address] [place], [place] [phone] [employer]ning Equipment Tender: Collin Augustin MD Albumin, % 47 % Low 56-66 [facility] Comment on above: Performed By: #### B MPX, CDP, MG #### [facility] [address] [place] [address] [employer] Tender: Collin Augustin MD Kdxxs-6-miemeyfhn 0.6 g/dL High 0.1-0.4 [facility] Comment on above: Performed By: #### B MPX, CDP, MG #### [facility] [address] [place] [address] [employer] Equipment Tender: Collin Augustin MD Rczxw-0-ywfzgekft,% 9 % High 3-5 [facility] Comment on above: Performed By: #### B MPX, CDP, MG #### [facility] [address] [place] [address] [employer] Equipment Tender: Collin Augustin MD Mmpfu-1-ewtjoimju 0.9 g/dL Normal 0.5-0.9 [facility] Comment on above: Performed By: #### B MPX, CDP, MG #### [facility] [address] [place] [address] [employer] Equipment Tender: Collin Augustin MD Papii-6-hfjljjsyu,% 13 % High 7-12 [facility] Comment on above: Performed By: #### B MPX, CDP, MG #### [facility] [address] [place] [address] [employer] Tender: Collin Augustin MD Beta-globulins 1.0 g/dL Normal 0.7-1.4 [facility] Comment on above: Performed By: #### B MPX, CDP, MG #### [facility] [address] [place] [address] [employer] Equipment Tender: Collin Augustin MD Beta-globulins,% 14 % High 8-13 [facility] Comment on above: Performed By: #### B MPX, CDP, MG #### [facility] [address] [place] [address] [employer] Equipment Tender: Collin Augustin MD Gamma-globulins 1.2 g/dL Normal 0.5-1.5 [facility] Comment on above: Performed By: #### B MPX, CDP, MG #### [facility] [address] [place] [address] Tinning Equipment Tender: Collin Augustin MD Gamma-globulins,% 18 % Normal 11-19 [facility] Comment on above: Performed By: #### B MPX, CDP, MG #### [facility] [employer] [address] [place] [address] [employer] Tender: Collin Augustin MD Total Prot. Sum 7.0 g/dL Normal 6.3-8.2 [facility] Comment on above: Performed By: #### B MPX, CDP, MG #### [facility] [employer] [address] [place] [address] [employer] Tender: Collin Augustin MD Total Prot. Sum,% 101 % Normal 98-102 [facility] Comment on above: Performed By: #### B MPX, CDP, MG #### [facility] [employer] [facility] [place] [address] Tinning Equipment Tender: Collin Augustin MD Protein, urine, randomon Protein (U) [Mass/Vol] 482 mg/dL [facility] Comment on above: No normal range esta blished. [facility] Protein,Tot,[place] Uron 2024 Tot Prot. Conc. 482 mg/dL Normal [facility] Comment on above: Result Comment: No n ormal range established. Performed By: #### B MPX, CDP #### [facility] [employer] [address] [place] [address] [employer]ning Equipment Tender: Collin Augustin MD Urinalysis w/ Microon 2024 Epithelial cells LM Ql (Urine sed) None Normal 0-5 [facility] Comment on above: Performed By: #### B MPX, CDP #### [facility] [address] [place] [address] [employer] Tender: Collin Augustin MD Urine RBC's TOO NUMEROUS TO COUNT Normal 0-2 [facility] Comment on above: Performed By: #### B MPX, CDP #### [facility] [address] [place] [address] [employer] Equipment Tender: Collin Augustin MD Urine WBC's 2 TO 5 Normal 0-5 [facility] Comment on above: Performed By: #### B MPX, CDP #### [facility] [employer] [address] [place] [address] [employer] Tender: Collin Augustin MD Bilirubin, SemiQt,Ur Negative Normal NEG [facility] Comment on above: Performed By: #### B MPX, CDP #### [facility] [employer] [address] [place] [address] [employer] Tender: Collin Augustin MD Blood, Urine LARGE Abnormal NEG [facility] Comment on above: Performed By: #### B MPX, CDP #### [facility] [employer] [address] [place] [address] [employer]ning Equipment Tender: Collin Augustin MD Clarity (U) Cloudy Abnormal CLEAR [facility] Comment on above: Performed By: #### B MPX, CDP #### [facility] [employer] [address] [place] [address]2831 Tinning Equipment Tender: Collin Augustin MD Color (U) Red Abnormal YEL [facility] Comment on above: Result Comment: INTE RPRET WITH CAUTION DUE TO INTENSE COLOR OF URINE. Performed By: #### B MPX, CDP #### [facility] [employer] [address] [place] [address] 06327 Tinning Equipment Tender: Collin Augustin MD Glucose Ql (U) Negative Normal NEG [facility] Comment on above: Performed By: #### B MPX, CDP #### [address] [address] Tinning Equipment Tender: Collin Augustin MD Ketones Ql (U) Negative Normal NEG [facility] Comment on above: Performed By: #### B MPX, CDP #### [facility] [address] [address] [employer]ning Equipment Tender: Collin Augustin MD Leukocyte esterase Test strip Ql (U) TRACE Abnormal NEG [facility] Comment on above: Performed By: #### B MPX, CDP #### [address] [address] Tinning Equipment Tender: Collin Augustin MD Nitrite,Ur Negative Normal NEG [facility] Comment on above: Performed By: #### B MPX, CDP #### [facility] [employer] [address] [place] [address] Tinning Equipment Tender: Collin Augustin MD PH,Ur 7.0 Normal 5.0-8.0 [facility] Comment on above: Performed By: #### B MPX, CDP #### [facility] [employer] [address] [place] [address] Tinning Equipment Tender: Collin Augustin MD Protein Ql (U) 3+ mg/dL Abnormal NEG [facility] Comment on above: Performed By: #### B MPX, CDP #### [facility] [employer] [address] [place] [address]51 Tinning Equipment Tender: Collin Augustin MD Spec. [place],Ur 1.011 Normal 1.005-1.030 [facility] Comment on above: Performed By: #### B MPX, CDP #### [facility] [address] [place] [address] Tinning Equipment Tender: Collin Augustin MD Urobilinogen,Ur Normal Normal 0.0-1.0 [facility] Comment on above: Performed By: #### B MPX, CDP #### [employer] [address] [place] [address] Tinning Equipment Tender: Collin Augustin MD Urinalysis with Microscopico n 01-31-2025 Bilirubin Ql (U) Negative NEGATIVE [facility] [place] [facility] Clarity (U) Cloudy Abnormal Clear [facility] Color (U) Red Abnormal Yellow [facility] Comment on above: INTERPRET WITH CAUTI ON DUE TO INTENSE COLOR OF URINE. Epithelial cells LM.HPF (Urine sed) [#/Area] None [facility] Glucose Test strip (U) [Mass/Vol] Negative NEGATIVE mg/dL [facility] Hemoglobin Auto test strip Ql (U) LARGE Abnormal NEGATIVE [facility] Interpretation and review of laboratory results Abnormal [facility] Ketones (U) [Mass/Vol] Negative NEGATIVE mg/dL [facility] Leukocyte esterase Test strip Ql (U) TRACE Abnormal NEGATIVE [facility] Nitrite Ql (U) Negative NEGATIVE [facility] pH (U) 7 [pH] 5.0 - 8.0 [facility] Protein (U) [Mass/Vol] 3+ Abnormal NEGATIVE mg/dL [facility] RBC LM.HPF (Urine sed) [#/Area] TOO NUMEROUS TO COUNT [facility] Specific gravity (U) [Rel density] 1.011 1.005 - 1.030 [facility] Urobilinogen Qn (U) Normal 0.0 - 1. 0 EU/dL [facility] WBC LM.HPF (Urine sed) [#/Area] 2 TO 5 [facility] Basic Metab w/rfx MGon 01-30 Anion gap [Moles/Vol] 19 mmol/L High 9-16 [facility] Comment on above: Performed By: #### T ROPI, BMPX #### [employer] [address] [place], [place] [phone] [employer]ning Equipment Tender: Collin Augustin MD Calcium [Mass/Vol] 9.0 mg/dL Normal 8.6-10.4 [facility] Comment on above: Performed By: #### TERE WRIGHTX #### [facility] [address] [place] [address] Tinning Equipment Tender: Collin Augustin MD Chloride [Moles/Vol] 98 mmol/L Normal 98-107 [facility] Comment on above: Performed By: #### TERE WRIGHTX #### [facility] [address] [place] [address] Tinning Equipment Tender: Collin Augustin MD CO2 [Moles/Vol] 20 mmol/L Normal 20-31 [facility] Comment on above: Performed By: #### TERE WRIGHTX #### [facility] [employer] [address] [place] [address] Tinning Equipment Tender: Collin Augustin MD Creatinine [Mass/Vol] 6.2 mg/dL Critically high 0.7-1.2 [facility] Comment on above: Result Comment: Prev ious Alert Value Reported Performed By: #### MIKE WRIGHT #### [facility] [employer] [address] [place] [address]656 Tinning Equipment Tender: Collin Augustin MD GFR/1.73 sq M.predicted among non-blacks MDRD (S/P/Bld) [Vol rate/Area] 10 mL/min/{1.73_m2} Low >60 [facility] Comment on above: Result Comment: These [...] Performed By: #### Fernanda MIKE BMPX #### [facility] [address] [place] [address] [phone] Tinning Equipment Tender: Collin Augustin MD Glucose [Mass/Vol] 136 mg/dL High 74-99 [facility] Comment on above: Performed By: #### Fernanda MIKE BMPX #### [facility] [employer] [address] [place] [address] Tinning Equipment Tender: Collin Augustin MD Potassium [Moles/Vol] 4.0 mmol/L Normal 3.7-5.3 [facility] Comment on above: Performed By: #### T RASHID BMPX #### [facility] [employer] [address] [place] [address] Tinning Equipment Tender: Collin Augustin MD Sodium [Moles/Vol] 137 mmol/L Normal 136-145 [facility] Comment on above: Performed By: #### Fernanda MIKE BMPX #### [facility] [employer] [address] [place] [address]44 Tinning Equipment Tender: Collin Augustin MD Urea nitrogen [Mass/Vol] 48 mg/dL High 8-23 [facility] Comment on above: Performed By: #### Fernanda MIKE BMPX #### [facility] [employer] [address] [place] [address] Tinning Equipment Tender: Collin Augustin MD Anion gap [Moles/Vol] 22 mmol/L High 9-16 [facility] Comment on above: Performed By: #### Fernanda MIKE BMPX #### [facility] [employer] [address] [place] [address] Tinning Equipment Tender: Collin Augustin MD Calcium [Mass/Vol] 8.6 mg/dL Normal 8.6-10.4 [facility] Comment on above: Performed By: #### T RASHID BMPX #### [facility] [employer] [address] [place] [address] Tinning Equipment Tender: Collin Augustin MD Chloride [Moles/Vol] 109 mmol/L High 98-107 [facility] Comment on above: Performed By: #### T RASHID BMPX #### [facility] [address] [place] [address] Tinning Equipment Tender: Collin Augustin MD CO2 [Moles/Vol] 10 mmol/L Low 20-31 [facility] Comment on above: Performed By: #### T RASHID BMPX #### [facility] [address] [place] [address] Tinning Equipment Tender: Collin Augustin MD Creatinine [Mass/Vol] 13.0 mg/dL Critically high 0.7-1.2 [facility] Comment on above: Performed By: #### TERE WRIGHTX #### [facility] [address] [place] [address] [employer]ning Equipment Tender: Collin Augustin MD GFR/1.73 sq M.predicted among non-blacks MDRD (S/P/Bld) [Vol rate/Area] 4 mL/min/{1.73_m2} Low >60 [facility] Comment on above: Result Comment: These [...] Performed By: #### T RASHID BMPX #### [facility] [place] [address] Tinning Equipment Tender: Collin Augustin MD Glucose [Mass/Vol] 99 mg/dL Normal 74-99 [facility] Comment on above: Performed By: #### Fernanda MIKE BMPX #### [facility] [employer] [address] [place] [address] Tinning Equipment Tender: Collin Augustin MD Potassium [Moles/Vol] 7.1 mmol/L Critically high 3.7-5.3 [facility] Comment on above: Performed By: #### T TERE MIKEX #### [facility] [address] [place], [place] [phone] Tinning Equipment Tender: Collin Augustin MD Sodium [Moles/Vol] 141 mmol/L Normal 136-145 [facility] Comment on above: Performed By: #### Fernanda MIKE BMPX #### [facility] [address] [place], [place] [phone] Tinning Equipment Tender: Collin uAgustin MD Urea nitrogen [Mass/Vol] 108 mg/dL Critically high 8-23 [facility] Comment on above: Performed By: #### TERE WRIGHTX #### [facility] [address] [place], [place] [phone] Tinning Equipment Tender: Collin Augustin MD Basic Metabolic Panel w/ Ref honey to MGon 01-30-2025 Anion gap [Moles/Vol] 19 mmol/L High 9 - 16 mmol/L [facility] Calcium [Mass/Vol] 9 mg/dL 8.6 - 10. 4 mg/dL [facility] Chloride [Moles/Vol] 98 mmol/L 98 - 10 7 mmol/L [facility] CO2 [Moles/Vol] 20 mmol/L 20 - 31 mmol/L [facility] Creatinine [Mass/Vol] 6.2 mg/dL Critically high 0.7 - 1.2 mg/dL [facility] Comment on above: Previous Alert Value Reported Est, Glom Filt Rate 10 Low - PINF [facility] Comment on above: These results are not [...] 136 mg/dL High 74 - 99 mg/dL [employer] Potassium [Moles/Vol] 4 mmol/L 3.7 - 5.3 mmol/L [facility] Sodium [Moles/Vol] 137 mmol/L 136 - 145 mmol/L [facility] Urea nitrogen [Mass/Vol] 48 mg/dL High 8 - 23 mg/dL [facility] Anion gap [Moles/Vol] 22 mmol/L High 9 - 16 mmol/L [facility] Calcium [Mass/Vol] 8.6 mg/dL 8.6 - 10. 4 mg/dL [facility] Chloride [Moles/Vol] 109 mmol/L High 98 - 10 7 mmol/L [facility] CO2 [Moles/Vol] 10 mmol/L Low 20 - 31 mmol/L [facility] Creatinine [Mass/Vol] 13.0 mg/dL Critically high 0.7 - 1.2 mg/dL [facility] Est, Glom Filt Rate 4 Low - PINF [facility] Comment on above: These results are not [...] [Mass/Vol] 99 mg/dL 74 - 99 mg/dL [facility] Potassium [Moles/Vol] 7.1 mmol/L Critically high 3.7 - 5.3 mmol/L [facility] Sodium [Moles/Vol] 141 mmol/L 136 - 145 mmol/L [facility] Urea nitrogen [Mass/Vol] 108 mg/dL Critically high 8 - 23 mg/dL [facility] C3on 01-30-2025 C3 162 mg/dL Normal 90-180 [facility] Comment on above: Performed By: #### B MPX, CDP, MG #### [facility] [place] [phone] Tinning Equipment Tender: Collin Augustin MD C3 Complementon 01-30-2025 Complement C3 [Mass/Vol] 162 mg/dL 90 - 180 mg/dL [facility] C4on 01-30-2025 C4 31 mg/dL Normal 10-40 [facility] Comment on above: Performed By: #### B MARIELOS BLNACA, MG #### [employer] [address] [place] [address] Tinning Equipment Tender: Collin Augustin MD C4 Complementon 01-30-2025 Complement C4 [Mass/Vol] 31 mg/dL 10 - 40 mg/dL [facility] CBC with Auto Differentialon 01-30-2025 Basophils (Bld) [#/Vol] 0.11 10*3/uL [facility] Immature granulocytes (Bld) [#/Vol] 0.06 10*3/uL [facility] Interpretation and review of laboratory results Abnormal [facility] Lymphocytes/100 WBC (Bld) 0.94 % Low [facility] Monocytes/100 WBC (Bld) 0.6 % [facility] Neutrophils/100 WBC (Bld) 83 % High 36 - 65 % [facility] Nucleated RBC/100 WBC (Bld) [Ratio] 0 % 0.0 per 100 WBC [facility] RBC (Bld) [#/Vol] ANISOCYTOSIS PRESENT MICROCYTOSIS PRESENT [facility] Segmented neutrophils/100 WBC (Bld) 10.19 % High [facility] WBC other (Bld) [#/Vol] 12.1 High [facility] CBC with Diffon 01-30-2025 Basophils/100 WBC (Bld) 1 % Normal 0-2 [facility] Comment on above: Performed By: #### B MARIELOS BLANCA #### [employer] [address] [place] [address] [phone] Tinning Equipment Tender: Collin Augustin MD Eosinophils (Bld) [#/Vol] 0.21 10*3/uL Normal 0.00-0.44 [facility] Comment on above: Performed By: #### B EVANGELIST CDP #### [address] [address] Tinning Equipment Tender: Collin Augustin MD Eosinophils/100 WBC (Bld) 2 % Normal 1-4 [facility] Comment on above: Performed By: #### B MPX, CDP #### [address] [address] Tinning Equipment Tender: Collin Augustin MD Erythrocyte distribution width (RBC) [Ratio] 15.3 % High 11.8-14.4 [facility] Comment on above: Performed By: #### B MPX, CDP #### [facility] [employer] [address] [place] [address] 9[address]65 Tinning Equipment Tender: Collin Augustin MD Hematocrit (Bld) [Volume fraction] 32.1 % Low 40.7-50.3 [facility] Comment on above: Performed By: #### B MPX, CDP #### [address] [address] Tinning Equipment Tender: Collin Augustin MD Hemoglobin (Bld) [Mass/Vol] 9.9 g/dL Low 13.0-17.0 [facility] Comment on above: Performed By: #### B MPX, CDP #### [address] [address] Tinning Equipment Tender: Collin Augustin MD Immature granulocytes/100 WBC (Bld) 1 % High 0 [facility] Comment on above: Performed By: #### B MPX, CDP #### [address] [address] Tinning Equipment Tender: Collin Augustin MD Lymphocytes/100 WBC (Bld) 8 % Low 24-43 [facility] Comment on above: Performed By: #### B MPX, CDP #### [facility] [address] [place] [address] Tinning Equipment Tender: Collin Augustin MD MCH (RBC) [Entitic mass] 24.4 pg Low 25.2-33.5 [facility] Comment on above: Performed By: #### B MPX, CDP #### [address] [address] Tinning Equipment Tender: Collin Augustin MD MCHC (RBC) [Mass/Vol] 30.8 g/dL Normal 28.4-34.8 [facility] Comment on above: Performed By: #### B MPX, CDP #### [facility] [employer] [address] [place] [address] Tinning Equipment Tender: Collin Augustin MD MCV (RBC) [Entitic vol] 79.3 fL Low 82.6-102.9 [facility] Comment on above: Performed By: #### B MPX, CDP #### [facility] [employer] [address] [place] [address] Tinning Equipment Tender: Collin Augustin MD Monocytes/100 WBC (Bld) 5 % Normal 3-12 [facility] Comment on above: Performed By: #### B MPX, CDP #### [facility] [employer] [address] [place] [address]48 Tinning Equipment Tender: Collin Augustin MD Platelet mean volume (Bld) [Entitic vol] 8.8 fL Normal 8.1-13.5 [facility] Comment on above: Performed By: #### B MPX, CDP #### [place] [address] Tinning Equipment Tender: Collin Augustin MD Platelets (Bld) [#/Vol] 374 10*3/uL Normal 138-453 [facility] Comment on above: Performed By: #### B MPX, CDP #### [facility] [employer] [address] [place] [address] Tinning Equipment Tender: Collin Augustin MD RBC (Bld) [#/Vol] 4.05 10*6/uL Low 4.21-5.77 [facility] Comment on above: Performed By: #### B MPX, CDP #### [facility] [employer] [facility] [place] [address] Tinning Equipment Tender: Collin Augustin MD Abs. Basophil 0.11 k/uL Normal 0.00-0.20 [facility] Comment on above: Performed By: #### B MPX, CDP #### [facility] [employer] [address] [place] [address] Tinning Equipment Tender: Collin Augustin MD Abs.Imm.Granulocyte 0.06 k/uL Normal 0.00-0.30 [facility] Comment on above: Performed By: #### B MPX, CDP #### [facility] [employer] [address] [place] [address] Tinning Equipment Tender: Collin Augustin MD Abs.Neutrophil (Seg) 10.19 k/uL High 1.50-8.10 [facility] Comment on above: Performed By: #### B MPX, CDP #### [facility] [employer] [address] [place] [address] Tinning Equipment Tender: Collin Augustin MD Lymphocytes (Bld) [#/Vol] 0.94 10*3/uL Low 1.10-3.70 [facility] Comment on above: Performed By: #### B MPX, CDP #### [facility] [employer] [address] [place] [address] Tinning Equipment Tender: Collin Augustin MD Monocytes (Bld) [#/Vol] 0.60 10*3/uL Normal 0.10-1.20 [facility] Comment on above: Performed By: #### B MPX, CDP #### [facility] [employer] [address] [place] [address] Tinning Equipment Tender: Collin Augustin MD Neutrophil (Seg) 83 % High 36-65 [facility] Comment on above: Performed By: #### B MPX, CDP #### [facility] [employer] [address] [place] [address] Tinning Equipment Tender: Collin Augustin MD NRBC Automated 0.0 per 100 WBC Normal 0.0 [facility] Comment on above: Performed By: #### B MPX, CDP #### [facility] [address] [place] [address] Tinning Equipment Tender: Collin Augustin MD RBC morphology finding Nom (Bld) ANISOCYTOSIS PRESENT Normal [facility] Comment on above: Result Comment: MICR OCYTOSIS PRESENT Performed By: #### B MPX, CDP #### [facility] [place] [address] Tinning Equipment Tender: Collin Augustin MD WBC (Bld) [#/Vol] 12.1 10*3/uL High 3.5-11.3 [facility] Comment on above: Performed By: #### B MPX, CDP #### [facility] [employer] [address] [place] [address] Tinning Equipment Tender: Collin Augustin MD Creatinine, Random Urineon 0 01-30-2025 Creatinine (U) [Mass/Vol] 26.4 mg/dL Low 39.0 - 259.0 mg/dL [facility] [employer] Comment on above: Reference range defi teddy for 1st morning urine Interpretation and review of laboratory results Abnormal [facility] Creatinine,Random Uron 01-30 Creatinine [Mass/Vol] 26.4 mg/dL Low 39.0-259.0 [facility] Comment on above: Result Comment: Refe rence range defined for 1st morning urine Performed By: #### T ROPI, BMPX #### [facility] [employer] [address] [place] [address] [phone] Tinning Equipment Tender: Collin Augustin MD EKG 12 leadOrdered By: Rohan Christianson on 01-30-2025 Atrial Rate 86 BPM [facility] [place] [employer] Work Phone: P [place] 125 degrees [facility] [place] [employer] Work Phone: P-R Interval 164 ms [employer] Work Phone: Q-T Interval 370 ms [employer] Work Phone: QRS Duration 92 ms [employer] Work Phone: QTc Calculation (Bazett) 442 ms [facility] [place] [employer] Work Phone: R [place] 158 degrees [employer] Work Phone: T [place] 112 degrees [facility] [place] [employer] Work Phone: Ventricular Rate 86 BPM [facility] [employer] Work Phone: [employer] Phone: EKG 12 leadon 01-30-2025 Suspect arm lead reversal, interpretation assumes no reversal Unusual P axis, possible ectopic atrial rhythm Left posterior fascicular block Abnormal ECG No previous ECGs available [facility] Autumn Borja MD - 01/30/2025 Suspect arm lead reversal, interpretation assumes no reversal Unusual P axis, possible ectopic atrial rhythm Left posterior fascicular block Abnormal ECG No previous ECGs available [facility] [place] + Lambdaon 2024 Free [place] Lt Chains 95.7 mg/L High <20.7 [facility] Comment on above: Result Comment: Perf ormed using Diazyme reagent on [employer]a [employer] Pro. Results obtained with different assay methods cannot be used interchangeably. Performed By: #### B MPX, CDP, MG #### [employer] [address] [place], [place] [phone] Tinning Equipment Tender: Collin Augustin MD Free [place]/Lambda Rat 1.03 Normal 0.22-1.74 [facility] Comment on above: Performed By: #### B MPX, CDP, MG #### [employer] [address] [place], [place] [phone] Tinning Equipment Tender: Collin Augustin MD Free [place] Lt Chains 92.6 mg/L High 4.2-27.7 [facility] Comment on above: Result Comment: Perf ormed using Diazyme reagent on [employer]. Results obtained with different assay methods cannot be used interchangeably. Performed By: #### B MPX, CDP, MG #### [facility] [address] [place] [address] Tinning Equipment Tender: Collin Augustin MD Hep B Core [facility] 01-30-2025 Hep B Core Ab Non-Reactive Normal NR [facility] Comment on above: Performed By: #### B MPX, CDP, MG #### [facility] [employer] [address] [place] [address] Tinning Equipment Tender: Collin Augustin MD Hep B Surf [facility] 01-30-2025 Hep B Surf Ab <3.50 Normal <10 [facility] Comment on above: Result Comment: REFERENCE RANGE: <10.0 NON-REACTIVE/NOT IMMUNE >=10.0 REACTIVE/IMMUNE Performed By: #### B MPX, CDP, MG #### [facility] [employer] [address] [place] [address] Tinning Equipment Tender: Collin Augustin MD Hep B Surf [facility] 01-30-2025 Hep B Surf Ag Non-Reactive Normal NR [facility] Comment on above: Performed By: #### B MPX, CDP, MG #### [address] [address] Tinning Equipment Tender: Collin Augustin MD Hep C [facility] 1 Hep C Ab Non-Reactive Normal NR [facility] Comment on above: Result Comment: The [...] RNA by PCR. Performed By: #### B MPX, CDP, MG #### [facility] [employer] [address] [place] [address] [employer] Equipment Tender: Collin Augustin MD Hepatitis B core antibody, t lidia 01-30-2025 HBV core Ab Ql (S) Non-Reactive NONREACTIVE [facility] Hepatitis B surface antibody on 01-30-2025 HBV surface Ab IA Qn m[IU]/mL NINF [facility] Comment on above: REFERENCE RANGE: <10.0 NON-REACTIVE/NOT IMMUNE >=10.0 REACTIVE/IMMUNE Hepatitis B surface antigeno n 01-30-2025 HBV surface Ag IA Ql Non-Reactive NONREACTIVE [facility] Hepatitis C Antibodyon 01-30 HCV Ab IA Ql Non-Reactive NONREACTIVE [facility] Comment on above: The hepatitis C procedure [...] recommended by ordering HCV RNA by PCR. [place]/Lambda Quantitative Fr ee Light Chains, Serumon 01-30-2025 Free [place]/Lambda Ratio 1.03 0.22 - 1.74 [facility] Immunoglobulin light chains.kappa.free (S) [Mass/Vol] 95.7 mg/L High NINF - 20.7 mg/L [facility] Comment on above: Performed using Gu yme reagent on Hoa Tariq Pro. Results obtained with different assay methods cannot be used interchangeably. Immunoglobulin light chains.lambda.free [Mass/Vol] 92.6 mg/L High 4.2 - 27.7 mg/L [facility] Comment on above: Performed using Gu yme reagent on Hoa Tariq Pro. Results obtained with different assay methods cannot be used interchangeably. Interpretation and review of laboratory results Abnormal [facility] MRSA DNA Probe, Nasalon 01-12 MRSA, DNA, Nasal Negative NEGATIVE [facility] Comment on above: NEGATIVE: MRSA DNA n ot detected by nucleic acid amplification. Results should be used as an adjunct to nosocomial control efforts to identify patients needing enhanced precautions. The test is not intended to identify patients with staphylococcal infections. Results should not be used to guide or monitor treatment for MRSA infections. Specimen Description .NASAL SWAB [facility] MRSA, DNA, Nasalon MRSA, DNA, Nasal Negative Normal NEG [facility] Comment on above: Result Comment: NEGA TIVE: MRSA DNA not detected by nucleic acid amplification. Results should be used as an adjunct to nosocomial control efforts to identify patients needing enhanced precautions. The test is not intended to identify patients with staphylococcal infections. Results should not be used to guide or monitor treatment for MRSA infections. Performed By: #### M RSANO #### [employer] [address] [place] [address] [phone] Tinning Equipment Tender: Collin Augustin MD Specimen Description .NASAL SWAB Normal [facility] Comment on above: Performed By: #### M RSANO #### [employer] [address] [place] [address] [phone] Tinning Equipment Tender: Collin Augustin MD No Panel Informationon 01-30 Interpretation and review of laboratory results Abnormal [facility] Interpretation and review of laboratory results Abnormal [facility] PSA, Diagnosticon 01-30-2025 Interpretation and review of laboratory results Abnormal [facility] Prostate specific Ag [Mass/Vol] 504 ng/mL High 0.00 - 4.00 ng/mL [facility] Comment on above: The Hoa ECLIA as say is used. Results obtained with different assay methods cannot be used interchangeably. [facility] Prostatic Spec. Ag 504.00 ng/mL High 0.00-4.00 [facility] Comment on above: Result Comment: The Hoa ECLIA assay is used. Results obtained with different assay methods cannot be used interchangeably. Performed By: #### B MPX, CDP #### [employer] [address] [place] [address] [phone] Tinning Equipment Tender: Collin Augustin MD Portable XR Chest AP [...] opacity left parahilar region suggesting subsegmental atelectasis [facility] Radiology Study observation (narrative) [facility] Portable XR Chest AP single viewOrdered By: Kaushik Foster on 01-30-[address] [facility] Work Phone: Prot. Electroph, Blon 2024 Protein [Mass/Vol] 7.0 g/dL Normal 6.6-8.7 [facility] Comment on above: Performed By: #### B MPX, CDP, MG #### [employer] [address] [place], [place] [phone] Tinning Equipment Tender: Collin Augustin MD Sodium, Random Uron 01-31-20 25 Sodium (U) [Moles/Vol] 112 mmol/L Normal [facility] Comment on above: Result Comment: No n ormal range established. Performed By: #### T ROPI, BMPX #### [employer] [address] [place], [place] [phone] Tinning Equipment Tender: Collin Augustin MD Sodium, urine, randomon - Sodium (U) [Moles/Vol] 112 mmol/L [facility] Comment on above: No normal range esta blished. Troponinon 01-30-2025 Troponin I.cardiac High sensitivity method [Mass/Vol] 86 ng/L Critically high 0 - 22 ng/L [facility] Comment on above: High Sensitivity Tro ponin values cannot be compared with other Troponin methodologies. Previous Alert Value Reported Troponin, High Sens 86 ng/L Critically high 0-22 [facility] Comment on above: Result Comment: High Sensitivity Troponin values cannot be compared with other Troponin methodologies. Previous Alert Value Reported Performed By: #### MIKE WRIGHT #### [employer] [address] [place] [address] [id number] Tinning Equipment Tender: Collin Augustin MD Interpretation and review of laboratory results Abnormal [facility] Troponin I.cardiac High sensitivity method [Mass/Vol] 53 ng/L Critically high 0 - 22 ng/L [facility] Comment on above: High Sensitivity Tro ponin values cannot be compared with other Troponin methodologies. [facility] Troponin, High Sens 53 ng/L Critically high 0-22 [facility] Comment on above: Result Comment: High Sensitivity Troponin values cannot be compared with other Troponin methodologies. Performed By: #### MIKE WRIGHT #### [employer] [address] [place] [id number] Tinning Equipment Tender: Collin Augustin MD Troponin I.cardiac High sensitivity method [Mass/Vol] 45 ng/L High 0 - 22 ng/L [facility] Comment on above: High Sensitivity Tro ponin values cannot be compared with other Troponin methodologies. Troponin, High Sens 45 ng/L High 0-22 [facility] Comment on above: Result Comment: High Sensitivity Troponin values cannot be compared with other Troponin methodologies. Performed By: #### MIKE WRIGHT #### [employer] [address] [place] [address] [phone] Tinning Equipment Tender: Collin Augustin MD Kidneyon 01-30-2025 Mild to moderate bilateral hydronephrosis. The kidneys appear otherwise sonographically normal. [facility] EXAMINATION: RETROPERITONEAL ULTRASOUND OF [...] There is a Hummel catheter in place. [facility] Rigoberto Dean MD - [...] hydronephrosis. The kidneys appear otherwise sonographically normal. [facility] Radiology Study observation (narrative) [facility] US KidneyOrdered By: Rigoberto felipe on 01-30-2025 [facility] Work Phone: US RENAL COMPLETEon 01-31-20 25 US RENAL COMPLETE EXAMINATION: RETROPERITONEAL ULTRASOUND OF [...] Rigoberto Dean MD 01/30/25 Final result Normal [facility] XR CHEST PORTABLEon 01-31-20 XR CHEST [...] Kaushik Foster MD 01/30/25 Final result Normal [facility] CNPNon 05-04-2023 CNPN Normal [facility] CNCOon 03-25-2023 CNCO Letter Text Normal [facility] CNPNon 03-10-2023 CNPN Normal [facility] CNPNon 03-08-2023 CNPN Normal [facility] CNPNon 03-04-2023 CNPN Normal [facility] CNPNon 03-03-2023 CNPN Normal [facility] CBC with Diffon 02-28-2023 Abs. Basophil 0.10 k/uL Normal 0.0-0.2 [facility] Comment on above: Performed By: #### C REG, LIVP, CDP #### [facility] [address] [place] [address] Tinning Equipment Tender: Miller Grande MD Abs.Neutrophil (Seg) 7.40 k/uL High 2.1-6.5 [facility] Comment on above: Performed By: #### C REG, LIVP, CDP #### [facility] [address] [place] [phone] Tinning Equipment Tender: Miller Grande MD Auto Diff Performed YES Normal [facility] Comment on above: Performed By: #### C REG, LIVP, CDP #### [facility] [address] [place], [place] [phone] Tinning Equipment Tender: Miller Grande MD Basophils/100 WBC (Bld) 1 % Normal 0-[address] [facility] Comment on above: Performed By: #### C REG, LIVP, CDP #### [facility] [address] [place] [phone] Tinning Equipment Tender: Miller Grande MD Eosinophils (Bld) [#/Vol] 0.90 10*3/uL High 0.0-0.[address] [facility] Comment on above: Performed By: #### C REG, LIVP, CDP #### [facility] [address] [place] [address] Tinning Equipment Tender: Miller Grande MD Eosinophils/100 WBC (Bld) 8 % High 0-[address] [facility] Comment on above: Performed By: #### C REG, LIVP, CDP #### [facility] [address] [place] [phone] Tinning Equipment Tender: Miller Grande MD Erythrocyte distribution width (RBC) [Ratio] 16.9 % High 12.1-15.[address] [facility] Comment on above: Performed By: #### C REG, LIVP, CDP #### [facility] [address] [place] [phone] Tinning Equipment Tender: Miller Grande MD Hematocrit (Bld) [Volume fraction] 25.8 % Low 41-[address] [facility] Comment on above: Performed By: #### C REG, LIVP, CDP #### [facility] [address] [place] [phone] Tinning Equipment Tender: Miller Grande MD Hemoglobin (Bld) [Mass/Vol] 8.5 g/dL Low 13.5-17.[address] [facility] Comment on above: Performed By: #### C REG, LIVP, CDP #### [facility] [address] [place] [phone] Tinning Equipment Tender: Miller Grande MD Lymphocytes (Bld) [#/Vol] 1.60 10*3/uL Normal 1.0-4.[address] [facility] Comment on above: Performed By: #### C REG, LIVP, CDP #### [facility] [address] [place] [phone] Tinning Equipment Tender: Miller Grande MD Lymphocytes/100 WBC (Bld) 15 % Normal 13-[address] [facility] Comment on above: Performed By: #### C REG, LIVP, CDP #### [facility] [address] [place] [address] Tinning Equipment Tender: Miller Grande MD MCH (RBC) [Entitic mass] 26.9 pg Normal 26-[address] [facility] Comment on above: Performed By: #### C REG, LIVP, CDP #### [facility] [address] [place] [address] Tinning Equipment Tender: Miller Grande MD MCHC (RBC) [Mass/Vol] 32.8 g/dL Normal 31-37 [facility] Comment on above: Performed By: #### C REG, LIVP, CDP #### [facility] [address] [place] [phone] Tinning Equipment Tender: Miller Grande MD MCV (RBC) [Entitic vol] 82.0 fL Normal 80-[address] [facility] Comment on above: Performed By: #### C REG, LIVP, CDP #### [facility] [address] [place] [phone] Tinning Equipment Tender: Miller Grande MD Monocytes (Bld) [#/Vol] 0.50 10*3/uL Normal 0.0-1.[address] [facility] Comment on above: Performed By: #### C REG, LIVP, CDP #### [facility] [address] [place] [address] Tinning Equipment Tender: Miller Grande MD Monocytes/100 WBC (Bld) 5 % Normal 5-[address] [facility] Comment on above: Performed By: #### C REG, LIVP, CDP #### [facility] [address] [place], [place] [phone] Tinning Equipment Tender: Miller Grande MD Neutrophil (Seg) 71 % Normal 39-75 [facility] Comment on above: Performed By: #### C REG, LIVP, CDP #### [facility] [address] [place] [address] Tinning Equipment Tender: Miller Grande MD Platelets (Bld) [#/Vol] 380 10*3/uL Normal 140-[address] [facility] Comment on above: Performed By: #### C REG, LIVP, CDP #### [facility] [address] [place], [place] [phone] Tinning Equipment Tender: Miller Grande MD RBC (Bld) [#/Vol] 3.15 10*6/uL Low 4.5-5.[address] [facility] Comment on above: Performed By: #### C REG, LIVP, CDP #### [facility] [address] [place], [place] [phone] Tinning Equipment Tender: Miller Grande MD WBC (Bld) [#/Vol] 10.5 10*3/uL Normal 3.5-11.[address] [facility] Comment on above: Performed By: #### C REG, LIVP, CDP #### [facility] [address] [place], [place] [phone] Tinning Equipment Tender: Miller Grande MD Creatinine w/GFRon 3 Creatinine [Mass/Vol] 0.70 mg/dL Normal 0.70-1.20 [facility] Comment on above: Performed By: #### C REG, LIVP, CDP #### [facility] [address] [place] [address] Tinning Equipment Tender: Miller Grande MD GFR/1.73 sq M.predicted among non-blacks MDRD (S/P/Bld) [Vol rate/Area] mL/min/{1.73_m2} Normal >[address] [facility] Comment on above: Result Comment: These [...] By: #### C REG, LIVP, CDP #### [facility] [address] [place] [address] Tinning Equipment Tender: Miller Grande MD Liver Profileon 02-28-2023 Albumin [Mass/Vol] 3.5 g/dL Normal 3.5-5.[address] [facility] Comment on above: Performed By: #### C REG, LIVP, CDP #### [facility] [address] [place] [address] Tinning Equipment Tender: Miller Grande MD Alkaline Phos 89 U/L Normal 40-129 [facility] Comment on above: Performed By: #### C REG, LIVP, CDP #### [facility] [address] [place] [address] Tinning Equipment Tender: Miller Grande MD ALT [Catalytic activity/Vol] 27 U/L Normal 5-[address] [facility] Comment on above: Performed By: #### C REG, LIVP, CDP #### [facility] [address] [place] [address] Tinning Equipment Tender: Miller Grande MD AST [Catalytic activity/Vol] 22 U/L Normal <[address] [facility] Comment on above: Performed By: #### C REG, LIVP, CDP #### [facility] [address] [place], [place] [phone] Tinning Equipment Tender: Miller Grande MD Bilirubin [Mass/Vol] 0.1 mg/dL Low 0.3-1.2 [facility] Comment on above: Performed By: #### C REG, LIVP, CDP #### [facility] [address] [place], [place] [phone] Tinning Equipment Tender: Miller Grande MD Bilirubin, Indirect Can not be calculated Normal 0.0-1.[address] [facility] Comment on above: Performed By: #### C REG, LIVP, CDP #### [facility] [address] [place], [place] [phone] Tinning Equipment Tender: Miller Grande MD Bilirubin.indirect [Mass/Vol] mg/dL Normal <0.[address] [facility] Comment on above: Performed By: #### C REG, LIVP, CDP #### [facility] [address] [place] [phone] Tinning Equipment Tender: Miller Grande MD Protein [Mass/Vol] 6.9 g/dL Normal 6.4-8.[address] [facility] Comment on above: Performed By: #### C REG, LIVP, CDP #### [facility] [address] [place], [place] [phone] Tinning Equipment Tender: Miller Grande MD CNPNon 02-24-2023 CNPN Normal [facility] CBC with Auto Differentialon 02-22-2023 Absolute Eos # 0.40 [facility] Absolute Lymph # 1.20 [facility] Absolute [place] # 0.50 [facility] Basophils (Bld) [#/Vol] 0.10 10*3/uL [facility] Basophils/100 WBC (Bld) 2 % 0 - 2 % [facility] Eosinophils/100 WBC (Bld) 4 % 0 - 5 % [facility] Hematocrit (Bld) [Volume fraction] 24.3 % Low 41 - 53 % [facility] Hemoglobin (Bld) [Mass/Vol] 7.9 g/dL Critically low 13.5 - 17.5 g/dL [facility] Interpretation and review of laboratory results Abnormal [facility] Lymphocytes/100 WBC (Bld) 13 % 13 - 44 % [facility] MCH (RBC) [Entitic mass] 27.0 pg 26 - 34 pg [facility] MCHC (RBC) [Mass/Vol] 32.7 g/dL 31 - 37 g/dL [facility] MCV (RBC) [Entitic vol] 82.7 fL 80 - 100 fL [facility] Monocytes/100 WBC (Bld) 6 % 5 - 9 % [facility] Platelet distribution width (Bld) [Ratio] 16.0 % High 12.1 - 15.2 % [facility] Platelets (Bld) [#/Vol] 362 10*3/uL [facility] RBC (Bld) [#/Vol] 2.94 10*6/uL Low 4.5 - 5.9 m/uL [facility] Segmented neutrophils/100 WBC (Bld) 75 % 39 - 75 % [facility] Segs Absolute 7.10 High [facility] WBC (Bld) [#/Vol] 9.2 10*3/uL [facility] CBC with Diffon 02-22-2023 Abs. Basophil 0.10 k/uL Normal 0.0-0.2 [facility] Comment on above: Performed By: #### L MARIELOS MEDELLIN, CREG #### [facility] [address] [place] [address] Tinning Equipment Tender: Miller Grande MD Abs.Neutrophil (Seg) 7.10 k/uL High 2.1-6.5 [facility] Comment on above: Performed By: #### L MARIELOS MEDELLIN, CREG #### [facility] [address] [place] [phone] Tinning Equipment Tender: Miller Grande MD Basophils/100 WBC (Bld) 2 % Normal 0-[address] [facility] Comment on above: Performed By: #### L IVP, CDP, CREG #### [facility] [address] [place] [address] Tinning Equipment Tender: Miller Grande MD Eosinophils (Bld) [#/Vol] 0.40 10*3/uL Normal 0.0-0.[address] [facility] Comment on above: Performed By: #### L IVP, CDP, CREG #### [facility] [address] [place] [phone] Tinning Equipment Tender: Miller Grande MD Eosinophils/100 WBC (Bld) 4 % Normal 0-[address] [facility] Comment on above: Performed By: #### L IVP, CDP, CREG #### [facility] [address] [place] [phone] Tinning Equipment Tender: Miller Grande MD Erythrocyte distribution width (RBC) [Ratio] 16.0 % High 12.1-15.[address] [facility] Comment on above: Performed By: #### L IVP, CDP, CREG #### [facility] [address] [place] [phone] Tinning Equipment Tender: Miller Grande MD Hematocrit (Bld) [Volume fraction] 24.3 % Low 41-[address] [facility] Comment on above: Performed By: #### L IVP, CDP, CREG #### [facility] [address] [place] [phone] Tinning Equipment Tender: Miller Grande MD Hemoglobin (Bld) [Mass/Vol] 7.9 g/dL Critically low 13.5-17.[address] [facility] Comment on above: Performed By: #### L IVP, CDP, CREG #### [facility] [address] [place] [phone] Tinning Equipment Tender: Miller Grande MD Lymphocytes (Bld) [#/Vol] 1.20 10*3/uL Normal 1.0-4.[address] [facility] Comment on above: Performed By: #### L IVP, CDP, CREG #### [facility] [address] [place] [address] Tinning Equipment Tender: Miller Grande MD Lymphocytes/100 WBC (Bld) 13 % Normal 13-[address] [facility] Comment on above: Performed By: #### L IVP, CDP, CREG #### [facility] [address] [place] [phone] Tinning Equipment Tender: Miller Grande MD MCH (RBC) [Entitic mass] 27.0 pg Normal 26-[address] [facility] Comment on above: Performed By: #### L IVP, CDP, CREG #### [facility] [address] [place] [address] Tinning Equipment Tender: Miller Grande MD MCHC (RBC) [Mass/Vol] 32.7 g/dL Normal 31-37 [facility] Comment on above: Performed By: #### L IVP, CDP, CREG #### [facility] [address] [place] [address] Tinning Equipment Tender: Miller Grande MD MCV (RBC) [Entitic vol] 82.7 fL Normal 80-[address] [facility] Comment on above: Performed By: #### L IVP, CDP, CREG #### [facility] [address] [place] [address] Tinning Equipment Tender: Miller Grande MD Monocytes (Bld) [#/Vol] 0.50 10*3/uL Normal 0.0-1.[address] [facility] Comment on above: Performed By: #### L IVP, CDP, CREG #### [facility] [address] [place] [address] Tinning Equipment Tender: Miller Grande MD Monocytes/100 WBC (Bld) 6 % Normal 5-[address] [facility] Comment on above: Performed By: #### L IVP, CDP, CREG #### [facility] [address] [place] [address] Tinning Equipment Tender: Miller Grande MD Neutrophil (Seg) 75 % Normal 39-75 [facility] Comment on above: Performed By: #### L IVP, CDP, CREG #### [facility] [address] [place] [address] [phone] Tinning Equipment Tender: Miller Grande MD Platelets (Bld) [#/Vol] 362 10*3/uL Normal 140-[address] [facility] Comment on above: Performed By: #### L IVP, CDP, CREG #### [facility] [address] [place] [address] (166) Tinning Equipment Tender: Miller Grande MD RBC (Bld) [#/Vol] 2.94 10*6/uL Low 4.5-5.[address] [facility] Comment on above: Performed By: #### L IVP, CDP, CREG #### [facility] [address] [place] [address] ([phone] Tinning Equipment Tender: Miller Grande MD WBC (Bld) [#/Vol] 9.2 10*3/uL Normal 3.5-11.[address] [facility] Comment on above: Performed By: #### L IVP, CDP, CREG #### [facility] [address] [place] [address] ([phone]) Tinning Equipment Tender: Miller Grande MD CNPNon 02-22-2023 [facility]N [facility] Creatinineon 02-22-2023 Creatinine [Mass/Vol] 0.94 mg/dL 0.70 - 1.20 mg/dL [facility] GFR/1.73 sq M.predicted MDRD (S/P/Bld) [Vol rate/Area] - PINF [facility] Comment on above: These results are not [...] w/GFRon Creatinine [Mass/Vol] 0.94 mg/dL Normal 0.70-1.20 [facility] Comment on above: Performed By: #### L MARIELOS MEDELLIN, CREG #### [facility] [address] [place] [address] Tinning Equipment Tender: Miller Grande MD GFR/1.73 sq M.predicted among non-blacks MDRD (S/P/Bld) [Vol rate/Area] mL/min/{1.73_m2} Normal >[address] [facility] Comment on above: Result Comment: These [...] renal tubular secretion. Performed By: #### L MARIELOS MEDELLIN, CREG #### [facility] [address] [place] [address] Tinning Equipment Tender: Miller Grande MD Hepatic Function Panelon Albumin [Mass/Vol] 3 g/dL Low 3.5 - 5.2 g/dL [facility] ALP [Catalytic activity/Vol] 101 U/L 40 - 129 U/L [facility] ALT [Catalytic activity/Vol] 20 U/L 5 - 41 U/L [facility] AST [Catalytic activity/Vol] 18 U/L NINF - 40 U/L [facility] Bilirubin [Mass/Vol] 0.2 mg/dL Low 0.3 - 1 .2 mg/dL [facility] Bilirubin.direct [Mass/Vol] mg/dL NINF - 0.3 mg/dL [facility] Bilirubin.indirect [Mass/Vol] Can not be calculated 0.0 - 1.0 mg/dL [facility] Interpretation and review of laboratory results Abnormal [facility] Protein [Mass/Vol] 6.6 g/dL 6.4 - 8.3 g/dL [facility] Liver Profileon 02-22-2023 Albumin [Mass/Vol] 3.0 g/dL Low 3.5-5.[address] [facility] Comment on above: Performed By: #### L IVP, CDP, CREG #### [facility] [address] [place] [address] [employer] Equipment Tender: Miller Grande MD Alkaline Phos 101 U/L Normal 40-129 [facility] Comment on above: Performed By: #### L IVP, CDP, CREG #### [facility] [address] [place] [address] Tinning Equipment Tender: Miller Grande MD ALT [Catalytic activity/Vol] 20 U/L Normal 5-[address] [facility] Comment on above: Performed By: #### L IVP, CDP, CREG #### [facility] [address] [place], [place] [address] [employer]ning Equipment Tender: Miller Grande MD AST [Catalytic activity/Vol] 18 U/L Normal <[address] [facility] Comment on above: Performed By: #### L IVP, CDP, CREG #### [facility] [address] [place] [address] [employer]ning Equipment Tender: Miller Grande MD Bilirubin [Mass/Vol] 0.2 mg/dL Low 0.3-1.2 [facility] Comment on above: Performed By: #### L IVP, CDP, CREG #### [facility] [address] [place], [place] [address] [employer]ning Equipment Tender: Miller Grande MD Bilirubin, Indirect Can not be calculated Normal 0.0-1.[address] [facility] Comment on above: Performed By: #### L IVP, CDP, CREG #### [facility] [address] [place], [place] [address] [employer] Tender: Miller Grande MD Bilirubin.indirect [Mass/Vol] mg/dL Normal <0.[address] [facility] Comment on above: Performed By: #### L IVP, CDP, CREG #### [facility] [address] [place], [place] [address] [employer] Equipment Tender: Miller Grande MD Protein [Mass/Vol] 6.6 g/dL Normal 6.4-8.[address] [facility] Comment on above: Performed By: #### L IVPMARIELOS, CREG #### [facility] [address] [place] [address] [employer]ning Equipment Tender: Miller Grande MD No Panel Informationon 02-22 [facility] CNDSon 02-17-2023 CNDS Normal [facility] CNPNon 02-17-2023 CNPN Normal [facility] CASE MANAGEMon 02-16-2023 CASE MANAGEM Normal [facility] CBC W Auto Differential pane l (Bld)on 02-16-2023 Basophils (Bld) [#/Vol] 0.13 10*3/uL High <0.11 [facility] Comment on above: Order Comment: Speci men Type: BLOOD SPECIMENOrdering Facility: [facility] Address: [address] [address] Performed By: #### 5 7021-8 ####[facility] LABCLIA [id number] [address] [address], [place] [address] [place] Basophils/100 WBC (Bld) 1.3 % Normal [facility] Comment on above: Order Comment: Speci men Type: BLOOD SPECIMENOrdering Facility: [facility] Address: [address] [address] Performed By: #### 5 7021-8 ####[facility] LABCLIA [id number] [place] [address] [place] Differential cell count method Nom (Bld) Auto Normal [facility] Comment on above: Order Comment: Speci men Type: BLOOD SPECIMENOrdering Facility: [facility] Address: [address] [place] [address] Performed By: #### 5 7021-8 ####[facility] LABCLIA [id number] [place] [address] [place] Eosinophils (Bld) [#/Vol] 0.62 10*3/uL High <0.46 [facility] Comment on above: Order Comment: Speci men Type: BLOOD SPECIMENOrdering Facility: [facility] Address: [address] [place] [address] Performed By: #### 5 7021-8 ####[facility] LABIA [id number] [place] [address] [place] Eosinophils/100 WBC (Bld) 6.1 % Normal [facility] Comment on above: Order Comment: Speci men Type: BLOOD SPECIMENOrdering Facility: [facility] Address: [address] [place] [address] Performed By: #### 5 7021-8 ####[facility] LABIA [id number] [place] [address] [place] Erythrocyte distribution width (RBC) [Ratio] 15.5 % High 11.5-15.0 [facility] Comment on above: Order Comment: Speci men Type: BLOOD SPECIMENOrdering Facility: [facility] Address: [address] [place], [place] [address] Performed By: #### 5 7021-8 ####[facility] LABCLIA [id number] [place] [address] [place] Hematocrit (Bld) [Volume fraction] 26.1 % Low 39.0-51.0 [facility] Comment on above: Order Comment: Speci men Type: BLOOD SPECIMENOrdering Facility: [facility] Address: [address] [address] Performed By: #### 5 7021-8 ####[facility] LABIA [id number] [place] [address] [place] Hemoglobin (Bld) [Mass/Vol] 8.1 g/dL Low 13.0-17.0 [facility] Comment on above: Order Comment: Speci men Type: BLOOD SPECIMENOrdering Facility: [facility] Address: [address] [address] Performed By: #### 5 7021-8 ####[facility] LABIA [id number] [place] [address] [place] Immature granulocytes (Bld) [#/Vol] 0.07 10*3/uL Normal <0.10 [facility] Comment on above: Order Comment: Speci men Type: BLOOD SPECIMENOrdering Facility: [facility] Address: [address] [address] Performed By: #### 5 7021-8 ####[facility] LABIA [id number] [place] [address] [place] Immature granulocytes/100 WBC (Bld) 0.7 % Normal [facility] Comment on above: Order Comment: Speci men Type: BLOOD SPECIMENOrdering Facility: [facility] Address: [address] [place], [place] [address] Performed By: #### 5 7021-8 ####[facility] LABIA [id number] [place] [address] [place] Lymphocytes (Bld) [#/Vol] 1.09 10*3/uL Normal 1.00-4.00 [facility] Comment on above: Order Comment: Speci men Type: BLOOD SPECIMENOrdering Facility: [facility] Address: [address] Performed By: #### 5 7021-8 ####[facility] LABIA [id number] [place] [address] [place] Lymphocytes/100 WBC (Bld) 10.8 % Normal [facility] Comment on above: Order Comment: Speci men Type: BLOOD SPECIMENOrdering Facility: [facility] Address: [address] [place] [address] Performed By: #### 5 7021-8 ####[facility] LABIA [id number] [place] [address] [place] MCH (RBC) [Entitic mass] 26.9 pg Normal 26.0-34.0 [facility] Comment on above: Order Comment: Speci men Type: BLOOD SPECIMENOrdering Facility: [facility] Address: [address] [place] [address] Performed By: #### 5 7021-8 ####[facility] [id number] [address] [place] MCHC (RBC) [Mass/Vol] 31.0 g/dL Normal 30.5-36.0 [facility] Comment on above: Order Comment: Speci men Type: BLOOD SPECIMENOrdering Facility: [facility] Address: [address] [place], [place] [address] Performed By: #### 5 7021-8 ####[facility] [id number] [address] [place] MCV (RBC) [Entitic vol] 86.7 fL Normal 80.0-100.0 [facility] Comment on above: Order Comment: Speci men Type: BLOOD SPECIMENOrdering Facility: [facility] Address: [address] [place], [place] [address] Performed By: #### 5 7021-8 ####[facility] [id number] [place] [address] [place] Monocytes (Bld) [#/Vol] 0.69 10*3/uL Normal <0.87 [facility] Comment on above: Order Comment: Speci men Type: BLOOD SPECIMENOrdering Facility: [facility] Address: [address] [place] [address] Performed By: #### 5 7021-8 ####[facility] LABCLIA [id number] [place] [address] [place] Monocytes/100 WBC (Bld) 6.8 % Normal [facility] Comment on above: Order Comment: Speci men Type: BLOOD SPECIMENOrdering Facility: [facility] Address: [address] Performed By: #### 5 7021-8 ####[facility] LABCLIA [id number] [place] [address] [place] Neutrophils (Bld) [#/Vol] 7.52 10*3/uL High 1.45-7.50 [facility] Comment on above: Order Comment: Speci men Type: BLOOD SPECIMENOrdering Facility: [facility] Address: [address] Performed By: #### 5 7021-8 ####[facility] LABCLIA [id number] [place] [address] [place] Neutrophils/100 WBC (Bld) 74.3 % Normal [facility] Comment on above: Order Comment: Speci men Type: BLOOD SPECIMENOrdering Facility: [facility] Address: [address] [place] [address] Performed By: #### 5 7021-8 ####[facility] LABCLIA [id number] [place] [address] [place] Nucleated RBC (Bld) [#/Vol] 10*3/uL Normal <0.01 [facility] Comment on above: Order Comment: Speci men Type: BLOOD SPECIMENOrdering Facility: [facility] Address: [address] Performed By: #### 5 7021-8 ####[facility] LABCLIA [id number] [place] [address] [place] Nucleated RBC/100 WBC (Bld) [Ratio] 0.0 /100 WBC Normal [facility] Comment on above: Order Comment: Speci men Type: BLOOD SPECIMENOrdering Facility: [facility] Address: [address] [place], [place] [address] Performed By: #### 5 7021-8 ####[facility] LABCLIA [id number] [place] [address] [place] Platelet mean volume (Bld) [Entitic vol] 9.5 fL Normal 9.0-12.7 [facility] Comment on above: Order Comment: Speci men Type: BLOOD SPECIMENOrdering Facility: [facility] Address: [address] [place], [place] [address] Performed By: #### 5 7021-8 ####[facility] LABCLIA [id number] [place] [address] [place] Platelets (Bld) [#/Vol] 423 10*3/uL High 150-400 [facility] Comment on above: Order Comment: Speci men Type: BLOOD SPECIMENOrdering Facility: [facility] Address: [address] [place] [address] Performed By: #### 5 7021-8 ####[facility] LABCLIA [id number] [place] [address] [place] RBC (Bld) [#/Vol] 3.01 10*6/uL Low 4.20-6.00 [facility] Comment on above: Order Comment: Speci men Type: BLOOD SPECIMENOrdering Facility: [facility] Address: [address] Performed By: #### 5 7021-8 ####[facility] LABCLIA [id number] [place] [address] [place] WBC (Bld) [#/Vol] 10.12 10*3/uL Normal 3.70-11.00 [facility] Comment on above: Order Comment: Speci men Type: BLOOD SPECIMENOrdering Facility: [facility] Address: [address] [address] Performed By: #### 5 7021-8 ####[facility] LABCLIA [id number] [place] [address] [place] CNPNon 02-16-2023 CNPN Normal [facility] CONSULT PROGon 02-16-2023 CONSULT PROG Normal [facility] CASE MANAGEMon 02-15-2023 CASE MANAGEM Normal [facility] CBC W Auto Differential pane l (Bld)on 02-15-2023 Basophils (Bld) [#/Vol] 0.12 10*3/uL High <0.11 [facility] Comment on above: Order Comment: Speci men Type: BLOOD SPECIMENOrdering Facility: [facility] Address: [address] Performed By: #### 5 7021-8 ####[facility] LABCLIA [id number] [place] [address] [place] Basophils/100 WBC (Bld) 1.4 % Normal [facility] Comment on above: Order Comment: Speci men Type: BLOOD SPECIMENOrdering Facility: [facility] Address: [address] Performed By: #### 5 7021-8 ####[facility] LABCLIA [id number] [place] [address] [place] Differential cell count method Nom (Bld) Auto Normal [facility] Comment on above: Order Comment: Speci men Type: BLOOD SPECIMENOrdering Facility: [facility] Address: [address] Performed By: #### 5 7021-8 ####[facility] LABCLIA [id number] [place] [address] [place] Eosinophils (Bld) [#/Vol] 0.55 10*3/uL High <0.46 [facility] Comment on above: Order Comment: Speci men Type: BLOOD SPECIMENOrdering Facility: [facility] Address: [address] [place] [address] Performed By: #### 5 7021-8 ####[facility] LABCLIA [id number] [place] [address] [place] Eosinophils/100 WBC (Bld) 6.3 % Normal [facility] Comment on above: Order Comment: Speci men Type: BLOOD SPECIMENOrdering Facility: [facility] Address: [address] [place] [address] Performed By: #### 5 7021-8 ####[facility] LABCLIA [id number] [place] [address] [place] Erythrocyte distribution width (RBC) [Ratio] 15.5 % High 11.5-15.0 [facility] Comment on above: Order Comment: Speci men Type: BLOOD SPECIMENOrdering Facility: [facility] Address: [address] [place] [address] Performed By: #### 5 7021-8 ####[facility] LABIA [id number] [place] [address] [place] Hematocrit (Bld) [Volume fraction] 25.5 % Low 39.0-51.0 [facility] Comment on above: Order Comment: Speci men Type: BLOOD SPECIMENOrdering Facility: [facility] Address: [address] [place], [place] [address] Performed By: #### 5 7021-8 ####[facility] LABCLIA [id number] [place] [address] [place] Hemoglobin (Bld) [Mass/Vol] 8.0 g/dL Low 13.0-17.0 [facility] Comment on above: Order Comment: Speci men Type: BLOOD SPECIMENOrdering Facility: [facility] Address: [address] Performed By: #### 5 7021-8 ####[facility] LABCLIA [id number] [place] [address] [place] Immature granulocytes (Bld) [#/Vol] 0.08 10*3/uL Normal <0.10 [facility] Comment on above: Order Comment: Speci men Type: BLOOD SPECIMENOrdering Facility: [facility] Address: [address] [place], [place] [address] Performed By: #### 5 7021-8 ####[facility] LABCLIA [id number] [place] [address] [place] Immature granulocytes/100 WBC (Bld) 0.9 % Normal [facility] Comment on above: Order Comment: Speci men Type: BLOOD SPECIMENOrdering Facility: [facility] Address: [address] [place], [place] [address] Performed By: #### 5 7021-8 ####[facility] LABCLIA [id number] [place] [address] [place] Lymphocytes (Bld) [#/Vol] 1.45 10*3/uL Normal 1.00-4.00 [facility] Comment on above: Order Comment: Speci men Type: BLOOD SPECIMENOrdering Facility: [facility] Address: [address] Performed By: #### 5 7021-8 ####[facility] LABCLIA [id number] [place] [address] [place] Lymphocytes/100 WBC (Bld) 16.5 % Normal [facility] Comment on above: Order Comment: Speci men Type: BLOOD SPECIMENOrdering Facility: [facility] Address: [address] Performed By: #### 5 7021-8 ####[facility] LABIA [id number] [address] [place] [facility] MCH (RBC) [Entitic mass] 27.0 pg Normal 26.0-34.0 [facility] Comment on above: Order Comment: Speci men Type: BLOOD SPECIMENOrdering Facility: [facility] Address: [address] [place], [place] [address] Performed By: #### 5 7021-8 ####[facility] [id number] [place] [address] [place] MCHC (RBC) [Mass/Vol] 31.4 g/dL Normal 30.5-36.0 [facility] Comment on above: Order Comment: Speci men Type: BLOOD SPECIMENOrdering Facility: [facility] Address: [address] [place], [place] [address] Performed By: #### 5 7021-8 ####[facility] [id number] [place] [address] [place] MCV (RBC) [Entitic vol] 86.1 fL Normal 80.0-100.0 [facility] Comment on above: Order Comment: Speci men Type: BLOOD SPECIMENOrdering Facility: [facility] Address: [address] [place], [place] [address] Performed By: #### 5 7021-8 ####[facility] [id number] [address] [place] Monocytes (Bld) [#/Vol] 0.66 10*3/uL Normal <0.87 [facility] Comment on above: Order Comment: Speci men Type: BLOOD SPECIMENOrdering Facility: [facility] Address: [address] [place], [place] [address] Performed By: #### 5 7021-8 ####[facility] [id number] [place] [address] [place] Monocytes/100 WBC (Bld) 7.5 % Normal [facility] Comment on above: Order Comment: Speci men Type: BLOOD SPECIMENOrdering Facility: [facility] Address: [address] [place] [address] Performed By: #### 5 7021-8 ####[facility] LABCLIA [id number] [place] [address] [place] Neutrophils (Bld) [#/Vol] 5.92 10*3/uL Normal 1.45-7.50 [facility] Comment on above: Order Comment: Speci men Type: BLOOD SPECIMENOrdering Facility: [facility] Address: [address] [place] [address] Performed By: #### 5 7021-8 ####[facility] LABCLIA [id number] [place] [address] [place] Neutrophils/100 WBC (Bld) 67.4 % Normal [facility] Comment on above: Order Comment: Speci men Type: BLOOD SPECIMENOrdering Facility: [facility] Address: [address] [place], [place] [address] Performed By: #### 5 7021-8 ####[facility] LABCLIA [id number] [place] [address] [place] Nucleated RBC (Bld) [#/Vol] 10*3/uL Normal <0.01 [facility] Comment on above: Order Comment: Speci men Type: BLOOD SPECIMENOrdering Facility: [facility] Address: [address] [place], [place] [address] Performed By: #### 5 7021-8 ####[facility] LABCLIA [id number] [place] [address] [place] Nucleated RBC/100 WBC (Bld) [Ratio] 0.0 /100 WBC Normal [facility] Comment on above: Order Comment: Speci men Type: BLOOD SPECIMENOrdering Facility: [facility] Address: [facility] [address] Performed By: #### 5 7021-8 ####[facility] LABIA [id number] [place] [address] [place] Platelet mean volume (Bld) [Entitic vol] 9.6 fL Normal 9.0-12.7 [facility] Comment on above: Order Comment: Speci men Type: BLOOD SPECIMENOrdering Facility: [facility] Address: [address] [place], [place] [address] Performed By: #### 5 7021-8 ####[facility] LABIA [id number] [place] [address] [place] Platelets (Bld) [#/Vol] 447 10*3/uL High 150-400 [facility] Comment on above: Order Comment: Speci men Type: BLOOD SPECIMENOrdering Facility: [facility] Address: [address] [place], [place] [address] Performed By: #### 5 7021-8 ####[facility] LABIA [id number] [place] [address] [place] RBC (Bld) [#/Vol] 2.96 10*6/uL Low 4.20-6.00 [facility] Comment on above: Order Comment: Speci men Type: BLOOD SPECIMENOrdering Facility: [facility] Address: [address] [place] [address] Performed By: #### 5 7021-8 ####[facility] LABIA [id number] [place] [address] [place] WBC (Bld) [#/Vol] 8.78 10*3/uL Normal 3.70-11.00 [facility] Comment on above: Order Comment: Speci men Type: BLOOD SPECIMENOrdering Facility: [facility] Address: [address] [place], [place] [address] Performed By: #### 5 7021-8 ####[facility] LABCLIA [id number] [place] [address] [place] THERAPY NTon 02-15-2023 THERAPY NT Normal [facility] CBC W Auto Differential pane l (Bld)on 02-14-2023 Basophils (Bld) [#/Vol] 0.15 10*3/uL High <0.11 [facility] Comment on above: Order Comment: Speci men Type: BLOOD SPECIMENOrdering Facility: [facility] Address: [address] [address] Performed By: #### 5 7021-8 ####[facility] LABCLIA [id number] [address] [place] Basophils/100 WBC (Bld) 1.8 % Normal [facility] Comment on above: Order Comment: Speci men Type: BLOOD SPECIMENOrdering Facility: [facility] Address: [address] [place] [address] Performed By: #### 5 7021-8 ####[facility] LABCLIA [id number] [place] [address] [place] Differential cell count method Nom (Bld) Auto Normal [facility] Comment on above: Order Comment: Speci men Type: BLOOD SPECIMENOrdering Facility: [facility] Address: [address] [place], [place] [address] Performed By: #### 5 7021-8 ####[facility] LABCLIA [id number] [place] [address] [place] Eosinophils (Bld) [#/Vol] 0.49 10*3/uL High <0.46 [facility] Comment on above: Order Comment: Speci men Type: BLOOD SPECIMENOrdering Facility: [facility] Address: [address] [place] [address] Performed By: #### 5 7021-8 ####[facility] LABCLIA [id number] [place] [address] [place] Eosinophils/100 WBC (Bld) 5.8 % Normal [facility] Comment on above: Order Comment: Speci men Type: BLOOD SPECIMENOrdering Facility: [facility] Address: [address] [place] [address] Performed By: #### 5 7021-8 ####[facility] LABCLIA [id number] [place] [address] [place] Erythrocyte distribution width (RBC) [Ratio] 15.6 % High 11.5-15.0 [facility] Comment on above: Order Comment: Speci men Type: BLOOD SPECIMENOrdering Facility: [facility] Address: [address] [place] [address] Performed By: #### 5 7021-8 ####[facility] LABCLIA [id number] [place] [address] [place] Hematocrit (Bld) [Volume fraction] 27.2 % Low 39.0-51.0 [facility] Comment on above: Order Comment: Speci men Type: BLOOD SPECIMENOrdering Facility: [facility] Address: [address] [place], [place] [address] Performed By: #### 5 7021-8 ####[facility] LABCLIA [id number] [place] [address] [place] Hemoglobin (Bld) [Mass/Vol] 8.4 g/dL Low 13.0-17.0 [facility] Comment on above: Order Comment: Speci men Type: BLOOD SPECIMENOrdering Facility: [facility] [facility] Address: [address] [place], [place] [address] Performed By: #### 5 7021-8 ####[facility] LABCLIA [id number] [place] [address] [place] Immature granulocytes (Bld) [#/Vol] 0.07 10*3/uL Normal <0.10 [facility] Comment on above: Order Comment: Speci men Type: BLOOD SPECIMENOrdering Facility: [facility] Address: [address] Performed By: #### 5 7021-8 ####[facility] LABCLIA [id number] [address] Immature granulocytes/100 WBC (Bld) 0.8 % Normal [facility] Comment on above: Order Comment: Speci men Type: BLOOD SPECIMENOrdering Facility: [facility] Address: [address] Performed By: #### 5 7021-8 ####[facility] LABCLIA [id number] [place] [address] [place] Lymphocytes (Bld) [#/Vol] 1.54 10*3/uL Normal 1.00-4.00 [facility] Comment on above: Order Comment: Speci men Type: BLOOD SPECIMENOrdering Facility: [facility] Address: [address] Performed By: #### 5 7021-8 ####[facility] LABCLIA [id number] [address] STATES [facility] Lymphocytes/100 WBC (Bld) 18.3 % Normal [facility] Comment on above: Order Comment: Speci men Type: BLOOD SPECIMENOrdering Facility: [facility] Address: [address] Performed By: #### 5 7021-8 ####[facility] LABCLIA [id number] [place] [address] [place] MCH (RBC) [Entitic mass] 26.8 pg Normal 26.0-34.0 [facility] Comment on above: Order Comment: Speci men Type: BLOOD SPECIMENOrdering Facility: [facility] Address: [address] Performed By: #### 5 7021-8 ####[facility] LABCLIA [id number] [place] [address] [place] MCHC (RBC) [Mass/Vol] 30.9 g/dL Normal 30.5-36.0 [facility] Comment on above: Order Comment: Speci men Type: BLOOD SPECIMENOrdering Facility: [facility] Address: [address] [place] [address] Performed By: #### 5 7021-8 ####[facility] LABIA [id number] [place] [address] [place] MCV (RBC) [Entitic vol] 86.6 fL Normal 80.0-100.0 [facility] Comment on above: Order Comment: Speci men Type: BLOOD SPECIMENOrdering Facility: [facility] Address: [address] [place] [address] Performed By: #### 5 7021-8 ####[facility] LABIA [id number] [place] [address] [place] Monocytes (Bld) [#/Vol] 0.75 10*3/uL Normal <0.87 [facility] Comment on above: Order Comment: Speci men Type: BLOOD SPECIMENOrdering Facility: [facility] Address: [address] [place], [place] [address] Performed By: #### 5 7021-8 ####[facility] LABIA [id number] [address] [place] Monocytes/100 WBC (Bld) 8.9 % Normal [facility] Comment on above: Order Comment: Speci men Type: BLOOD SPECIMENOrdering Facility: [facility] Address: [address] [place], [place] [address] Performed By: #### 5 7021-8 ####[facility] LABIA [id number] [place] [address] [place] Neutrophils (Bld) [#/Vol] 5.43 10*3/uL Normal 1.45-7.50 [facility] Comment on above: Order Comment: Speci men Type: BLOOD SPECIMENOrdering Facility: [facility] Address: [address] [place], [place] [address] Performed By: #### 5 7021-8 ####[facility] LABCLIA [id number] [place] [address] [place] Neutrophils/100 WBC (Bld) 64.4 % Normal [facility] Comment on above: Order Comment: Speci men Type: BLOOD SPECIMENOrdering Facility: [facility] Address: [address] Performed By: #### 5 7021-8 ####[facility] LABCLIA [id number] [place] [address] [place] Nucleated RBC (Bld) [#/Vol] 10*3/uL Normal <0.01 [facility] Comment on above: Order Comment: Speci men Type: BLOOD SPECIMENOrdering Facility: [facility] Address: [address] [place], [place] [address] Performed By: #### 5 7021-8 ####[facility] LABIA [id number] [place] [address] [place] Nucleated RBC/100 WBC (Bld) [Ratio] 0.0 /100 WBC Normal [facility] Comment on above: Order Comment: Speci men Type: BLOOD SPECIMENOrdering Facility: [facility] Address: [address] [place] [address] Performed By: #### 5 7021-8 ####[facility] LABIA [id number] [place] [address] [place] Platelet mean volume (Bld) [Entitic vol] 9.4 fL Normal 9.0-12.7 [facility] Comment on above: Order Comment: Speci men Type: BLOOD SPECIMENOrdering Facility: [facility] Address: [address] [place], [place] [address] Performed By: #### 5 7021-8 ####[facility] LABCLIA [id number] [place] [address] [place] Platelets (Bld) [#/Vol] 478 10*3/uL High 150-400 [facility] Comment on above: Order Comment: Speci men Type: BLOOD SPECIMENOrdering Facility: [facility] Address: [address] [place] [address] Performed By: #### 5 7021-8 ####[facility] LABCLIA [id number] [place] [address] [place] RBC (Bld) [#/Vol] 3.14 10*6/uL Low 4.20-6.00 [facility] Comment on above: Order Comment: Speci men Type: BLOOD SPECIMENOrdering Facility: [facility] Address: [address] [place], [place] [address] Performed By: #### 5 7021-8 ####[facility] LABCLIA [id number] [place] [address] [place] WBC (Bld) [#/Vol] 8.43 10*3/uL Normal 3.70-11.00 [facility] Comment on above: Order Comment: Speci men Type: BLOOD SPECIMENOrdering Facility: [facility] Address: [address] [place] [address] Performed By: #### 5 7021-8 ####[facility] LABCLIA [id number] [place] [address] [place] CONSULT PROGon 02-14-2023 CONSULT PROG Normal [facility] TYPE + SCREENon 02-14-2023 ABO A Normal [facility] Comment on above: Order Comment: Speci men Type: BLOOD SPECIMENOrdering Facility: [facility] Address: [address] [place] [address] Performed By: #### T SCR ####[facility] BLO[facility] BANKCLIA [id number] [address] [place] HISTORICAL AB SCR STATUS Negative Normal [facility] Comment on above: Order Comment: Speci men Type: BLOOD SPECIMENOrdering Facility: [facility] Address: [address] [place] [address] Performed By: #### T SCR ####[facility] BLOOD BANKCLIA [id number] [address] Rh Nom (Bld) Positive Normal [facility] Comment on above: Order Comment: Speci men Type: BLOOD SPECIMENOrdering Facility: [facility] Address: [address] [place] [address] Performed By: #### T SCR ####CC [facility] BLOOD BANKCLIA [id number] [address] OF [facility] TYPE AND SCREEN EXPIRATION 02/17/2023 23:59 Normal [facility] Comment on above: Order Comment: Speci men Type: BLOOD SPECIMENOrdering Facility: [facility] Address: [address] [place] [address] Performed By: #### T SCR ####[facility] BLOOD BANKCLIA [id number] [address] [place] CBC W Auto Differential pane l (Bld)on 02-13-2023 Basophils (Bld) [#/Vol] 0.14 10*3/uL High <0.11 [facility] Comment on above: Order Comment: Speci men Type: BLOOD SPECIMENOrdering Facility: [facility] Address: [address] [place], [place] [address] Performed By: #### 5 7021-8 ####[facility] LABCLIA [id number] [address] Basophils/100 WBC (Bld) 1.8 % Normal [facility] Comment on above: Order Comment: Speci men Type: BLOOD SPECIMENOrdering Facility: [facility] Address: [address] [place] [address] Performed By: #### 5 7021-8 ####[facility] LABCLIA [id number] [place] [address] [place] Differential cell count method Nom (Bld) Auto Normal [facility] Comment on above: Order Comment: Speci men Type: BLOOD SPECIMENOrdering Facility: [facility] Address: [address] [place], [place] [address] Performed By: #### 5 7021-8 ####[facility] LABCLIA [id number] [place] [address] [place] Eosinophils (Bld) [#/Vol] 0.43 10*3/uL Normal <0.46 [facility] Comment on above: Order Comment: Speci men Type: BLOOD SPECIMENOrdering Facility: [facility] Address: [address] [place], [place] [address] Performed By: #### 5 7021-8 ####[facility] LABIA [id number] [place] [address] [place] Eosinophils/100 WBC (Bld) 5.6 % Normal [facility] Comment on above: Order Comment: Speci men Type: BLOOD SPECIMENOrdering Facility: [facility] Address: [address] [place] [address] Performed By: #### 5 7021-8 ####[facility] LABIA [id number] [place] [address] [place] Erythrocyte distribution width (RBC) [Ratio] 15.5 % High 11.5-15.0 [facility] Comment on above: Order Comment: Speci men Type: BLOOD SPECIMENOrdering Facility: [facility] Address: [address] [place], [place] [address] Performed By: #### 5 7021-8 ####[facility] LABCLIA [id number] [address] [place] Hematocrit (Bld) [Volume fraction] 26.0 % Low 39.0-51.0 [facility] Comment on above: Order Comment: Speci men Type: BLOOD SPECIMENOrdering Facility: [facility] Address: [address] [place] [address] Performed By: #### 5 7021-8 ####[facility] LABCLIA [id number] [place] [address] [place] Hemoglobin (Bld) [Mass/Vol] 8.2 g/dL Low 13.0-17.0 [facility] Comment on above: Order Comment: Speci men Type: BLOOD SPECIMENOrdering Facility: [facility] Address: [address] [place] [address] Performed By: #### 5 7021-8 ####[facility] LABCLIA [id number] [address] [place] Immature granulocytes (Bld) [#/Vol] 0.06 10*3/uL Normal <0.10 [facility] Comment on above: Order Comment: Speci men Type: BLOOD SPECIMENOrdering Facility: [facility] Address: [address] [place], [place] [address] Performed By: #### 5 7021-8 ####[facility] LABCLIA [id number] [address] [place] Immature granulocytes/100 WBC (Bld) 0.8 % Normal [facility] Comment on above: Order Comment: Speci men Type: BLOOD SPECIMENOrdering Facility: [facility] Address: [address] [place], [place] [address] Performed By: #### 5 7021-8 ####[facility] LABCLIA [id number] [place] [address] [place] Lymphocytes (Bld) [#/Vol] 1.99 10*3/uL Normal 1.00-4.00 [facility] Comment on above: Order Comment: Speci men Type: BLOOD SPECIMENOrdering Facility: [facility] Address: [address] [place] [address] Performed By: #### 5 7021-8 ####[facility] LABCLIA [id number] [address] [place] Lymphocytes/100 WBC (Bld) 26.0 % Normal [facility] Comment on above: Order Comment: Speci men Type: BLOOD SPECIMENOrdering Facility: [facility] Address: [address] Performed By: #### 5 7021-8 ####[facility] LABCLIA [id number] [place] [address] [place] MCH (RBC) [Entitic mass] 27.2 pg Normal 26.0-34.0 [facility] Comment on above: Order Comment: Speci men Type: BLOOD SPECIMENOrdering Facility: [facility] Address: [address] Performed By: #### 5 7021-8 ####[facility] LABCLIA [id number] [place] [address] [place] MCHC (RBC) [Mass/Vol] 31.5 g/dL Normal 30.5-36.0 [facility] Comment on above: Order Comment: Speci men Type: BLOOD SPECIMENOrdering Facility: [facility] Address: [address] Performed By: #### 5 7021-8 ####[facility] LABCLIA [id number] [place] [address] [place] MCV (RBC) [Entitic vol] 86.1 fL Normal 80.0-100.0 [facility] Comment on above: Order Comment: Speci men Type: BLOOD SPECIMENOrdering Facility: [facility] Address: [address] [place], [place] [address] Performed By: #### 5 7021-8 ####[facility] LABCLIA [id number] [place] [address] [place] Monocytes (Bld) [#/Vol] 0.57 10*3/uL Normal <0.87 [facility] Comment on above: Order Comment: Speci men Type: BLOOD SPECIMENOrdering Facility: [facility] Address: [address] [place] [address] Performed By: #### 5 7021-8 ####[facility] LABCLIA [id number] [place] [address] [place] Monocytes/100 WBC (Bld) 7.5 % Normal [facility] Comment on above: Order Comment: Speci men Type: BLOOD SPECIMENOrdering Facility: [facility] Address: [address] [place], [place] [address] Performed By: #### 5 7021-8 ####[facility] LABCLIA [id number] [place] [address] [place] Neutrophils (Bld) [#/Vol] 4.45 10*3/uL Normal 1.45-7.50 [facility] Comment on above: Order Comment: Speci men Type: BLOOD SPECIMENOrdering Facility: [facility] Address: [address] [place], [place] [address] Performed By: #### 5 7021-8 ####[facility] LABCLIA [id number] [place] [address] [place] Neutrophils/100 WBC (Bld) 58.3 % Normal [facility] Comment on above: Order Comment: Speci men Type: BLOOD SPECIMENOrdering Facility: [facility] Address: [address] [place], [place] [address] Performed By: #### 5 7021-8 ####[facility] LABCLIA [id number] [place] [address] [place] Nucleated RBC (Bld) [#/Vol] 10*3/uL Normal <0.01 [facility] Comment on above: Order Comment: Speci men Type: BLOOD SPECIMENOrdering Facility: [facility] Address: [address] [place], [place] [address] Performed By: #### 5 7021-8 ####[facility] LABIA [id number] [place] [address] [place] Nucleated RBC/100 WBC (Bld) [Ratio] 0.0 /100 WBC Normal [facility] Comment on above: Order Comment: Speci men Type: BLOOD SPECIMENOrdering Facility: [facility] Address: [address] [place], [place] [address] Performed By: #### 5 7021-8 ####[facility] LABIA [id number] [place] [address] [place] Platelet mean volume (Bld) [Entitic vol] 9.3 fL Normal 9.0-12.7 [facility] Comment on above: Order Comment: Speci men Type: BLOOD SPECIMENOrdering Facility: [facility] Address: [address] [place], [place] [address] Performed By: #### 5 7021-8 ####[facility] LABIA [id number] [place] [address] [place] Platelets (Bld) [#/Vol] 509 10*3/uL High 150-400 [facility] Comment on above: Order Comment: Speci men Type: BLOOD SPECIMENOrdering Facility: [facility] Address: [address] [place], [place] [address] Performed By: #### 5 7021-8 ####[facility] LABIA [id number] [place] [address] [place] RBC (Bld) [#/Vol] 3.02 10*6/uL Low 4.20-6.00 [facility] Comment on above: Order Comment: Speci men Type: BLOOD SPECIMENOrdering Facility: [facility] Address: [address] [place] [address] Performed By: #### 5 7021-8 ####[facility] LABCLIA [id number] [place] [address] [place] WBC (Bld) [#/Vol] 7.64 10*3/uL Normal 3.70-11.00 [facility] Comment on above: Order Comment: Speci men Type: BLOOD SPECIMENOrdering Facility: [facility] Address: [address] [place] [address] Performed By: #### 5 7021-8 ####[facility] LABIA [id number] [place] [address] [place] CONSULT PROGon 02-13-2023 CONSULT PROG Normal [facility] Comprehensive metabolic 2000 panelon 02-13-2023 Albumin [Mass/Vol] 3.2 g/dL Low 3.9-4.9 [facility] Comment on above: Order Comment: Speci men Type: BLOOD SPECIMENOrdering Facility: [facility] Address: [address] Performed By: #### 2 4323-8 ####[facility] LABIA [id number] [place] [address] [place] ALP [Catalytic activity/Vol] 128 U/L High 38-113 [facility] Comment on above: Order Comment: Speci men Type: BLOOD SPECIMENOrdering Facility: [facility] Address: [address] [place] [address] Performed By: #### 2 4323-8 ####[facility] LABIA [id number] [place] [address] [place] ALT [Catalytic activity/Vol] 68 U/L High 10-54 [facility] Comment on above: Order Comment: Speci men Type: BLOOD SPECIMENOrdering Facility: [facility] Address: [address] [place] [address] Performed By: #### 2 4323-8 ####[facility] LABCLIA [id number] [place] [address] [place] Anion gap [Moles/Vol] 12 mmol/L Normal 9-18 [facility] Comment on above: Order Comment: Speci men Type: BLOOD SPECIMENOrdering Facility: [facility] Address: [address] [place] [address] Performed By: #### 2 4323-8 ####[facility] LABCLIA [id number] [place] [address] [place] AST [Catalytic activity/Vol] 23 U/L Normal 14-40 [facility] Comment on above: Order Comment: Speci men Type: BLOOD SPECIMENOrdering Facility: [facility] Address: [address] [place] [address] Performed By: #### 2 4323-8 ####[facility] LABCLIA [id number] [place] [address] [place] Bilirubin [Mass/Vol] mg/dL Low 0.2-1.3 [facility] Comment on above: Order Comment: Speci men Type: BLOOD SPECIMENOrdering Facility: [facility] Address: [address] [place] [address] Performed By: #### 2 4323-8 ####[facility] LABCLIA [id number] [place] [address] [place] Calcium [Mass/Vol] 9.0 mg/dL Normal 8.5-10.2 [facility] Comment on above: Order Comment: Speci men Type: BLOOD SPECIMENOrdering Facility: [facility] Address: [address] [place], [place] [address] Performed By: #### 2 4323-8 ####[facility] LABCLIA [id number] [place] [address] [place] Chloride [Moles/Vol] 102 mmol/L Normal 97-105 [facility] Comment on above: Order Comment: Speci men Type: BLOOD SPECIMENOrdering Facility: [facility] Address: [address] [place] [address] Performed By: #### 2 4323-8 ####[facility] LABCLIA [id number] [place] [address] [place] CO2 [Moles/Vol] 25 mmol/L Normal 22-30 [facility] Comment on above: Order Comment: Speci men Type: BLOOD SPECIMENOrdering Facility: [facility] Address: [address] [place] [address] Performed By: #### 2 4323-8 ####[facility] LABIA [id number] [address] Creatinine [Mass/Vol] 1.09 mg/dL Normal 0.73-1.22 [facility] Comment on above: Order Comment: Speci men Type: BLOOD SPECIMENOrdering Facility: [facility] Address: [address] [place] [address] Performed By: #### 2 4323-8 ####[facility] LABIA [id number] [address] ESTIMATED GLOMERULAR FILTRATION RATE 78 mL/min/1.73m??? Normal >=60 [facility] Comment on above: Order Comment: Speci men Type: BLOOD SPECIMENOrdering Facility: [facility] Address: [address] [place] [address] Result Comment: Veronica mated Glomerular Filtration Rate [...] actual GFR. Performed By: #### 2 4323-8 ####[facility] LABCLIA [id number] [place] [id number] [place] Glucose [Mass/Vol] 134 mg/dL High 74-99 [facility] Comment on above: Order Comment: Speci men Type: BLOOD SPECIMENOrdering Facility: [facility] Address: [address] [place] [address] Result Comment: The [place] [employer] (ADA) provides guidance for cutoff [...] Standards of Medical Care in Diabetes 2016, [place] [employer]. Diabetes Care. 2016.39(Suppl 1). Performed By: #### 2 4323-8 ####[facility] LABCLIA [id number] [place] [address] [place] Potassium [Moles/Vol] 4.3 mmol/L Normal 3.7-5.1 [facility] Comment on above: Order Comment: Speci men Type: BLOOD SPECIMENOrdering Facility: [facility] Address: [address] [place] [address] Performed By: #### 2 4323-8 ####[facility] LABCLIA [id number] [place] [address] [place] Protein [Mass/Vol] 6.7 g/dL Normal 6.3-8.0 [facility] Comment on above: Order Comment: Speci men Type: BLOOD SPECIMENOrdering Facility: [facility] Address: [address] [place] [address] Performed By: #### 2 4323-8 ####[facility] LABCLIA [id number] [id number] [address] [place] Sodium [Moles/Vol] 139 mmol/L Normal 136-144 [facility] Comment on above: Order Comment: Speci men Type: BLOOD SPECIMENOrdering Facility: [facility] Address: [address] Performed By: #### 2 4323-8 ####[facility] LABCLIA [id number] [place] [address] [place] Urea nitrogen [Mass/Vol] 22 mg/dL Normal 9-24 [facility] Comment on above: Order Comment: Speci men Type: BLOOD SPECIMENOrdering Facility: [facility] Address: [address] [place] [address] Performed By: #### 2 4323-8 ####[facility] LABCLIA [id number] [place] [address] [place] CBC W Auto Differential pane l (Bld)on 02-12-2023 Basophils (Bld) [#/Vol] 0.05 10*3/uL Normal <0.11 [facility] Comment on above: Order Comment: Speci men Type: BLOOD SPECIMENOrdering Facility: [facility] Address: [address] [place], [place] [address] Performed By: #### 5 7021-8 ####[facility] LABCLIA [id number] [place] [address] [place] Basophils/100 WBC (Bld) 0.6 % Normal [facility] Comment on above: Order Comment: Speci men Type: BLOOD SPECIMENOrdering Facility: [facility] Address: [address] [place], [place] [address] Performed By: #### 5 7021-8 ####[facility] LABCLIA [id number] [place] [address] [place] Differential cell count method Nom (Bld) Auto Normal [facility] Comment on above: Order Comment: Speci men Type: BLOOD SPECIMENOrdering Facility: [facility] Address: [address] [place], [place] [address] Performed By: #### 5 7021-8 ####[facility] LABCLIA [id number] [place] [address] [place] Eosinophils (Bld) [#/Vol] 10*3/uL Normal <0.46 [facility] Comment on above: Order Comment: Speci men Type: BLOOD SPECIMENOrdering Facility: [facility] Address: [address] [place], [place] [address] Performed By: #### 5 7021-8 ####[facility] LABCLIA [id number] [address] [place] Eosinophils/100 WBC (Bld) 0.1 % Normal [facility] Comment on above: Order Comment: Speci men Type: BLOOD SPECIMENOrdering Facility: [facility] Address: [address] [place], [place] [address] Performed By: #### 5 7021-8 ####[facility] LABCLIA [id number] [place] [address] [place] Erythrocyte distribution width (RBC) [Ratio] 15.4 % High 11.5-15.0 [facility] Comment on above: Order Comment: Speci men Type: BLOOD SPECIMENOrdering Facility: [facility] Address: [address] [place], [place] [address] Performed By: #### 5 7021-8 ####[facility] LABCLIA [id number] [address] [place] Hematocrit (Bld) [Volume fraction] 25.8 % Low 39.0-51.0 [facility] Comment on above: Order Comment: Speci men Type: BLOOD SPECIMENOrdering Facility: [facility] Address: [address] [place], [place] [address] Performed By: #### 5 7021-8 ####[facility] LABCLIA [id number] [id number] [address] [place] Hemoglobin (Bld) [Mass/Vol] 8.1 g/dL Low 13.0-17.0 [facility] Comment on above: Order Comment: Speci men Type: BLOOD SPECIMENOrdering Facility: [facility] Address: [address] [place] [address] Performed By: #### 5 7021-8 ####[facility] LABCLIA [id number] [place] [address] [place] Immature granulocytes (Bld) [#/Vol] 0.07 10*3/uL Normal <0.10 [facility] Comment on above: Order Comment: Speci men Type: BLOOD SPECIMENOrdering Facility: [facility] Address: [address] [place] [address] Performed By: #### 5 7021-8 ####[facility] LABCLIA [id number] [address] [place] Immature granulocytes/100 WBC (Bld) 0.8 % Normal [facility] Comment on above: Order Comment: Speci men Type: BLOOD SPECIMENOrdering Facility: [facility] Address: [address] [place] [address] Performed By: #### 5 7021-8 ####[facility] LABCLIA [id number] [place] [address] [place] Lymphocytes (Bld) [#/Vol] 0.68 10*3/uL Low 1.00-4.00 [facility] Comment on above: Order Comment: Speci men Type: BLOOD SPECIMENOrdering Facility: [facility] Address: [address] [place] [address] Performed By: #### 5 7021-8 ####[facility] LABCLIA [id number] [place] [address] [place] Lymphocytes/100 WBC (Bld) 8.2 % Normal [facility] Comment on above: Order Comment: Speci men Type: BLOOD SPECIMENOrdering Facility: [facility] Address: [address] Performed By: #### 5 7021-8 ####[facility] [id number] [address] MCH (RBC) [Entitic mass] 26.9 pg Normal 26.0-34.0 [facility] Comment on above: Order Comment: Speci men Type: BLOOD SPECIMENOrdering Facility: [facility] Address: [address] Performed By: #### 5 7021-8 ####[facility] [id number] [address] [place] MCHC (RBC) [Mass/Vol] 31.4 g/dL Normal 30.5-36.0 [facility] Comment on above: Order Comment: Speci men Type: BLOOD SPECIMENOrdering Facility: [facility] Address: [address] Performed By: #### 5 7021-8 ####[facility] [id number] [address] [place] MCV (RBC) [Entitic vol] 85.7 fL Normal 80.0-100.0 [facility] Comment on above: Order Comment: Speci men Type: BLOOD SPECIMENOrdering Facility: [facility] Address: [address] Performed By: #### 5 7021-8 ####[facility] [id number] [place] [address] [place] Monocytes (Bld) [#/Vol] 0.19 10*3/uL Normal <0.87 [facility] Comment on above: Order Comment: Speci men Type: BLOOD SPECIMENOrdering Facility: [facility] Address: [address] Performed By: #### 5 7021-8 ####[facility] LABCLIA [id number] [address] [address] [place] Monocytes/100 WBC (Bld) 2.3 % Normal [facility] Comment on above: Order Comment: Speci men Type: BLOOD SPECIMENOrdering Facility: [facility] Address: [address] [place], [place] [address] Performed By: #### 5 7021-8 ####[facility] LABCLIA [id number] [place] [address] [place] Neutrophils (Bld) [#/Vol] 7.27 10*3/uL Normal 1.45-7.50 [facility] Comment on above: Order Comment: Speci men Type: BLOOD SPECIMENOrdering Facility: [facility] Address: [address] [place] [address] Performed By: #### 5 7021-8 ####[facility] LABCLIA [id number] [place] [address] [place] Neutrophils/100 WBC (Bld) 88.0 % Normal [facility] Comment on above: Order Comment: Speci men Type: BLOOD SPECIMENOrdering Facility: [facility] Address: [address] [place] [address] Performed By: #### 5 7021-8 ####[facility] LABCLIA [id number] [place] [address] [place] Nucleated RBC (Bld) [#/Vol] 10*3/uL Normal <0.01 [facility] Comment on above: Order Comment: Speci men Type: BLOOD SPECIMENOrdering Facility: [facility] Address: [address] [place] [address] Performed By: #### 5 7021-8 ####[facility] LABCLIA [id number] [place] [address] [place] Nucleated RBC/100 WBC (Bld) [Ratio] 0.0 /100 WBC Normal [facility] Comment on above: Order Comment: Speci men Type: BLOOD SPECIMENOrdering Facility: [facility] Address: [address] [place], [place] [address] Performed By: #### 5 7021-8 ####[facility] LABCLIA [id number] [place] [address] [place] Platelet mean volume (Bld) [Entitic vol] 9.5 fL Normal 9.0-12.7 [facility] Comment on above: Order Comment: Speci men Type: BLOOD SPECIMENOrdering Facility: [facility] Address: [address] [place], [place] [address] Performed By: #### 5 7021-8 ####[facility] LABCLIA [id number] [place] [address] [place] Platelets (Bld) [#/Vol] 518 10*3/uL High 150-400 [facility] Comment on above: Order Comment: Speci men Type: BLOOD SPECIMENOrdering Facility: [facility] Address: [address] [place], [place] [address] Performed By: #### 5 7021-8 ####[facility] LABIA [id number] [place] [address] [place] RBC (Bld) [#/Vol] 3.01 10*6/uL Low 4.20-6.00 [facility] Comment on above: Order Comment: Speci men Type: BLOOD SPECIMENOrdering Facility: [facility] Address: [address] [place] [address] Performed By: #### 5 7021-8 ####[facility] LABIA [id number] [place] [address] [place] WBC (Bld) [#/Vol] 8.27 10*3/uL Normal 3.70-11.00 [facility] Comment on above: Order Comment: Speci men Type: BLOOD SPECIMENOrdering Facility: [facility] Address: [address] [place], [place] [address], [place] [address] Performed By: #### 5 7021-8 ####[facility] LABCLIA [id number] [place] [address] [place] CONSULT PROGon 02-12-2023 CONSULT PROG Normal [facility] ANES POSTPROC EVALon 023 ANES POSTPROC EVAL Normal [facility] ANES PRE-OPon 02-11-2023 ANES PRE-OP Normal [facility] BRIEF OP NOTon 02-11-2023 BRIEF OP NOT Normal [facility] Basic metabolic 2000 panelon 02-11-2023 Anion gap [Moles/Vol] 12 mmol/L Normal 9-18 [facility] Comment on above: Order Comment: Speci men Type: BLOOD SPECIMENOrdering Facility: [facility] Address: [address] [facility] [address] Performed By: #### 2 4321-2 ####[facility] LABIA [id number] [place] [address] [place] Calcium [Mass/Vol] 8.7 mg/dL Normal 8.5-10.2 [facility] Comment on above: Order Comment: Speci men Type: BLOOD SPECIMENOrdering Facility: [facility] Address: [address] Performed By: #### 2 4321-2 ####[facility] LABCLIA [id number] [place] [address] [place] Chloride [Moles/Vol] 100 mmol/L Normal 97-105 [facility] Comment on above: Order Comment: Speci men Type: BLOOD SPECIMENOrdering Facility: [facility] Address: [address] [facility] [place] [address] Performed By: #### 2 4321-2 ####[facility] LABCLIA [id number] [place] [address] [place] CO2 [Moles/Vol] 26 mmol/L Normal 22-30 [facility] Comment on above: Order Comment: Speci men Type: BLOOD SPECIMENOrdering Facility: [facility] Address: [address] [place] [address] Performed By: #### 2 4321-2 ####[facility] LABCLIA [id number] [place] [address] [place] Creatinine [Mass/Vol] 0.93 mg/dL Normal 0.73-1.22 [facility] Comment on above: Order Comment: Speci men Type: BLOOD SPECIMENOrdering Facility: [facility] Address: [address] [place] [address] Performed By: #### 2 4321-2 ####[facility] LABCLIA [id number] [place] [address] [place] ESTIMATED GLOMERULAR FILTRATION RATE 95 mL/min/1.73m??? Normal >=60 [facility] Comment on above: Order Comment: Speci men Type: BLOOD SPECIMENOrdering Facility: [facility] Address: [address] [place] [address] Result Comment: Veronica mated Glomerular Filtration Rate [...] actual GFR. Performed By: #### 2 4321-2 ####[facility] LABCLIA [id number] [place] [address] [place] Glucose [Mass/Vol] 128 mg/dL High 74-99 [facility] Comment on above: Order Comment: Speci men Type: BLOOD SPECIMENOrdering Facility: [facility] Address: [address] [place] [address] Result Comment: The [place] [employer] (ADA) provides guidance for cutoff [...] Standards of Medical Care in Diabetes 2016, [place] [employer]. Diabetes Care. 2016.39(Suppl 1). Performed By: #### 2 4321-2 ####[facility] LABCLIA [id number] [place] [address] [place] Potassium [Moles/Vol] 5.2 mmol/L High 3.7-5.1 [facility] Comment on above: Order Comment: Speci men Type: BLOOD SPECIMENOrdering Facility: [facility] Address: [address] [place] [address] Performed By: #### 2 4321-2 ####[facility] LABIA [id number] [place] [address] [place] Sodium [Moles/Vol] 138 mmol/L Normal 136-144 [facility] Comment on above: Order Comment: Speci men Type: BLOOD SPECIMENOrdering Facility: [facility] Address: [address] [place] [address] Performed By: #### 2 4321-2 ####[facility] LABCLIA [id number] [place] [address] [place] Urea nitrogen [Mass/Vol] 21 mg/dL Normal 9-24 [facility] Comment on above: Order Comment: Speci men Type: BLOOD SPECIMENOrdering Facility: [facility] Address: [address] [place] [address] Performed By: #### 2 4321-2 ####[facility] LABIA [id number] [place] [address] [place] CASE MANAGEMon 02-11-2023 CASE MANAGEM Normal [facility] CBC panel Auto (Bld)on 02-11 Erythrocyte distribution width (RBC) [Ratio] 15.5 % High 11.5-15.0 [facility] Comment on above: Order Comment: Speci men Type: BLOOD SPECIMENOrdering Facility: [facility] Address: [address] [place] [address] Performed By: #### 5 8410-2 ####[facility] LABIA [id number] [place] [address] [place] Hematocrit (Bld) [Volume fraction] 26.6 % Low 39.0-51.0 [facility] Comment on above: Order Comment: Speci men Type: BLOOD SPECIMENOrdering Facility: [facility] Address: [address] [place] [address] Performed By: #### 5 8410-2 ####[facility] LABIA [id number] [address] [place] Hemoglobin (Bld) [Mass/Vol] 8.3 g/dL Low 13.0-17.0 [facility] Comment on above: Order Comment: Speci men Type: BLOOD SPECIMENOrdering Facility: [facility] Address: [address] [place] [address] Performed By: #### 5 8410-2 ####[facility] LABIA [id number] [place] [address] [place] MCH (RBC) [Entitic mass] 26.8 pg Normal 26.0-34.0 [facility] Comment on above: Order Comment: Speci men Type: BLOOD SPECIMENOrdering Facility: [facility] Address: [address] [place] [address] Performed By: #### 5 8410-2 ####[facility] LABIA [id number] [place] [address] [place] MCHC (RBC) [Mass/Vol] 31.2 g/dL Normal 30.5-36.0 [facility] Comment on above: Order Comment: Speci men Type: BLOOD SPECIMENOrdering Facility: [facility] Address: [address] [place], [place] [address] Performed By: #### 5 8410-2 ####[facility] LABCLIA [id number] [place] [address] [place] MCV (RBC) [Entitic vol] 85.8 fL Normal 80.0-100.0 [facility] Comment on above: Order Comment: Speci men Type: BLOOD SPECIMENOrdering Facility: [facility] Address: [address] [place], [place] [address] Performed By: #### 5 8410-2 ####[facility] LABIA [id number] [address] [place] Nucleated RBC (Bld) [#/Vol] 10*3/uL Normal <0.01 [facility] Comment on above: Order Comment: Speci men Type: BLOOD SPECIMENOrdering Facility: [facility] Address: [address] [place], [place] [address] Performed By: #### 5 8410-2 ####[facility] LABIA [id number] [place] [address] [place] Platelet mean volume (Bld) [Entitic vol] 9.9 fL Normal 9.0-12.7 [facility] Comment on above: Order Comment: Speci men Type: BLOOD SPECIMENOrdering Facility: [facility] Address: [address] [place], [place] [address] Performed By: #### 5 8410-2 ####[facility] LABCLIA [id number] [place] [address] [place] Platelets (Bld) [#/Vol] 553 10*3/uL High 150-400 [facility] Comment on above: Order Comment: Speci men Type: BLOOD SPECIMENOrdering Facility: [facility] Address: [address] Performed By: #### 5 8410-2 ####[facility] [id number] [place] [address] [place] RBC (Bld) [#/Vol] 3.10 10*6/uL Low 4.20-6.00 [facility] Comment on above: Order Comment: Speci men Type: BLOOD SPECIMENOrdering Facility: [facility] Address: [address] Performed By: #### 5 8410-2 ####[facility] [id number] [place] [address] [place] WBC (Bld) [#/Vol] 9.69 10*3/uL Normal 3.70-11.00 [facility] Comment on above: Order Comment: Speci men Type: BLOOD SPECIMENOrdering Facility: [facility] Address: [address] [place], [place] [address] Performed By: #### 5 8410-2 ####[facility] [id number] [place] [address] [place] CONSULT PROGon 02-11-2023 CONSULT PROG Normal [facility] Gas and Carbon monoxide pane l (BldV)on 02-11-2023 Base excess Calc (BldV) [Moles/Vol] 2 mmol/L Normal 0-2 [facility] Comment on above: Order Comment: Speci men Type: VENOUS BLOOD SPECIMENOrdering Facility: [facility] Address: [address] [place], [place] [address] Performed By: #### 2 4344-4 ####[facility] LABIA [id number] [place] [address] [place] Calcium.ionized (Bld) [Mass/Vol] 1.20 mmol/L Normal 1.08-1.30 [facility] Comment on above: Order Comment: Speci men Type: VENOUS BLOOD SPECIMENOrdering Facility: [facility] Address: [address] [place] [address] Performed By: #### 2 4344-4 ####[facility] LABCLIA [id number] [place] [address] [place] Calcium.ionized adjusted to pH 7.4 (BldA) [Moles/Vol] 1.16 mmol/L Normal 1.08-1.30 [facility] Comment on above: Order Comment: Speci men Type: VENOUS BLOOD SPECIMENOrdering Facility: [facility] Address: [address] [place] [address] Performed By: #### 2 4344-4 ####[facility] LABIA [id number] [place] [address] [place] Carboxyhemoglobin (BldV) [Mass fraction] 1.4 % Normal 0.0-2.0 [facility] Comment on above: Order Comment: Speci men Type: VENOUS BLOOD SPECIMENOrdering Facility: [facility] Address: [address] [place] [address] Result Comment: Carb oxyhemoglobin Reference Range for Smokers: 2.0-8.0% Performed By: #### 2 4344-4 ####[facility] LABIA [id number] [place] [address] [place] CO2 (BldV) [Partial pressure] 52 mm[Hg] Normal 42-55 [facility] Comment on above: Order Comment: Speci men Type: VENOUS BLOOD SPECIMENOrdering Facility: [facility] Address: [address] Performed By: #### 2 4344-4 ####[facility] LABCLIA [id number] [place] [address] [place] CO2 [Moles/Vol] 29 mmol/L Normal 25-29 [facility] Comment on above: Order Comment: Speci men Type: VENOUS BLOOD SPECIMENOrdering Facility: [facility] Address: [address] Performed By: #### 2 4344-4 ####[facility] LABCLIA [id number] [address] [place] CO2 adjusted to patient's actual temperature (BldV) [Partial pressure] 52 mmHg Normal 42-55 [facility] Comment on above: Order Comment: Speci men Type: VENOUS BLOOD SPECIMENOrdering Facility: [facility] Address: [address] Performed By: #### 2 4344-4 ####[facility] LABCLIA [id number] [place] [address] [place] Glucose [Mass/Vol] 104 mg/dL Normal 60-105 [facility] Comment on above: Order Comment: Speci men Type: VENOUS BLOOD SPECIMENOrdering Facility: [facility] Address: [address] Performed By: #### 2 4344-4 ####[facility] LABCLIA [id number] [place] [address] [place] HCO3 (Bld) [Moles/Vol] 28 mmol/L Normal 24-28 [facility] Comment on above: Order Comment: Speci men Type: VENOUS BLOOD SPECIMENOrdering Facility: [facility] Address: [address] Performed By: #### 2 4344-4 ####[facility] LABCLIA [id number] [place] [address] [place] Hematocrit (Bld) [Volume fraction] 26.3 % Low 39.0-51.0 [facility] Comment on above: Order Comment: Speci men Type: VENOUS BLOOD SPECIMENOrdering Facility: [facility] Address: [address] Performed By: #### 2 4344-4 ####[facility] LABCLIA [id number] [place] [address] [place] Hemoglobin (Bld) [Mass/Vol] 8.5 g/dL Low 13.0-17.0 [facility] Comment on above: Order Comment: Speci men Type: VENOUS BLOOD SPECIMENOrdering Facility: [facility] Address: [address] [place] [address] Performed By: #### 2 4344-4 ####[facility] LABCLIA [id number] [place] [address] [place] Lactate [Moles/Vol] 0.5 mmol/L Normal 0.5-2.2 [facility] Comment on above: Order Comment: Speci men Type: VENOUS BLOOD SPECIMENOrdering Facility: [facility] Address: [address] [place] [address] Performed By: #### 2 4344-4 ####[facility] LABIA [id number] [address] [place] Methemoglobin (Bld) [Mass fraction] 0.9 % Normal 0.0-1.5 [facility] Comment on above: Order Comment: Speci men Type: VENOUS BLOOD SPECIMENOrdering Facility: [facility] Address: [address] [place] [address] Performed By: #### 2 4344-4 ####[facility] LABIA [id number] [place] [address] [place] Oxygen (BldV) [Partial pressure] 53 mm[Hg] High 35-45 [facility] Comment on above: Order Comment: Speci men Type: VENOUS BLOOD SPECIMENOrdering Facility: [facility] Address: [address] [place], [place] [address] Performed By: #### 2 4344-4 ####[facility] LABIA [id number] [place] [address] [place] Oxygen adjusted to patient's actual temperature (BldV) [Partial pressure] 53 mmHg High 35-45 [facility] Comment on above: Order Comment: Speci men Type: VENOUS BLOOD SPECIMENOrdering Facility: [facility] Address: [address] [place] [address] Performed By: #### 2 4344-4 ####[facility] LABCLIA [id number] [place] [address] [place] Oxygen saturation in Venous blood 83 % Normal 60-85 [facility] Comment on above: Order Comment: Speci men Type: VENOUS BLOOD SPECIMENOrdering Facility: [facility] Address: [address] Performed By: #### 2 4344-4 ####[facility] LABCLIA [id number] [place] [address] [place] Oxyhemoglobin (BldV) [Mass fraction] 81 % Normal 60-85 [facility] Comment on above: Order Comment: Speci men Type: VENOUS BLOOD SPECIMENOrdering Facility: [facility] Address: [address] Performed By: #### 2 4344-4 ####[facility] LABCLIA [id number] [place] [address] [place] pH (BldV) 7.34 [pH] Normal 7.32-7.42 [facility] Comment on above: Order Comment: Speci men Type: VENOUS BLOOD SPECIMENOrdering Facility: [facility] Address: [address] Performed By: #### 2 4344-4 ####[facility] LABCLIA [id number] [place] [address] [place] pH adjusted to patient's actual temperature (BldV) 7.34 Normal 7.32-7.42 [facility] Comment on above: Order Comment: Speci men Type: VENOUS BLOOD SPECIMENOrdering Facility: [facility] Address: [address] [place] [address] Performed By: #### 2 4344-4 ####[facility] LABCLIA [id number] [place] [address] [place] Potassium [Moles/Vol] 4.5 mmol/L Normal 3.5-5.0 [facility] Comment on above: Order Comment: Speci men Type: VENOUS BLOOD SPECIMENOrdering Facility: [facility] Address: [address] Performed By: #### 2 4344-4 ####[facility] LABCLIA [id number] [place] [address] [place] Sodium [Moles/Vol] 140 mmol/L Normal 136-144 [facility] Comment on above: Order Comment: Speci men Type: VENOUS BLOOD SPECIMENOrdering Facility: [facility] Address: [address] Performed By: #### 2 4344-4 ####[facility] LABIA [id number] [place] [address] [place] OPERATIVE NOon 02-11-2023 OPERATIVE NO Normal [facility] THERAPY NTon 02-11-2023 THERAPY NT Normal [facility] ALLIED HEALTHon 02-10-2023 [facility] Normal [facility] CBC W Auto Differential pane l (Bld)on 02-10-2023 Basophils (Bld) [#/Vol] 0.14 10*3/uL High <0.11 [facility] Comment on above: Order Comment: Speci men Type: BLOOD SPECIMENOrdering Facility: [facility] Address: [address] [place] [address] Performed By: #### 5 7021-8 ####[facility] LABCLIA [id number] [place] [address] [place] Basophils/100 WBC (Bld) 1.8 % Normal [facility] Comment on above: Order Comment: Speci men Type: BLOOD SPECIMENOrdering Facility: [facility] Address: [address] Performed By: #### 5 7021-8 ####[facility] LABCLIA [id number] [place] [address] [place] Differential cell count method Nom (Bld) Auto Normal [facility] Comment on above: Order Comment: Speci men Type: BLOOD SPECIMENOrdering Facility: [facility] Address: [address] Performed By: #### 5 7021-8 ####[facility] LABIA [id number] [place] [address] [place] Eosinophils (Bld) [#/Vol] 0.28 10*3/uL Normal <0.46 [facility] Comment on above: Order Comment: Speci men Type: BLOOD SPECIMENOrdering Facility: [facility] Address: [address] Performed By: #### 5 7021-8 ####[facility] LABIA [id number] [place] [address] [place] Eosinophils/100 WBC (Bld) 3.5 % Normal [facility] Comment on above: Order Comment: Speci men Type: BLOOD SPECIMENOrdering Facility: [facility] Address: [address] [place] [address] Performed By: #### 5 7021-8 ####[facility] LABIA [id number] [place] [address] [place] Erythrocyte distribution width (RBC) [Ratio] 15.4 % High 11.5-15.0 [facility] Comment on above: Order Comment: Speci men Type: BLOOD SPECIMENOrdering Facility: [facility] Address: [address] [place] [address] Performed By: #### 5 7021-8 ####[facility] LABIA [id number] [place] [id number] [place] Hematocrit (Bld) [Volume fraction] 24.0 % Low 39.0-51.0 [facility] Comment on above: Order Comment: Speci men Type: BLOOD SPECIMENOrdering Facility: [facility] Address: [address] [place] [address] Performed By: #### 5 7021-8 ####[facility] LABCLIA [id number] [place] [address] [place] Hemoglobin (Bld) [Mass/Vol] 7.4 g/dL Low 13.0-17.0 [facility] Comment on above: Order Comment: Speci men Type: BLOOD SPECIMENOrdering Facility: [facility] Address: [address] [place] [address] Performed By: #### 5 7021-8 ####[facility] LABCLIA [id number] [place] [address] [place] Immature granulocytes (Bld) [#/Vol] 0.11 10*3/uL High <0.10 [facility] Comment on above: Order Comment: Speci men Type: BLOOD SPECIMENOrdering Facility: [facility] Address: [address] [place] [address] Performed By: #### 5 7021-8 ####[facility] LABCLIA [id number] [place] [address] [place] Immature granulocytes/100 WBC (Bld) 1.4 % Normal [facility] Comment on above: Order Comment: Speci men Type: BLOOD SPECIMENOrdering Facility: [facility] Address: [address] [place], [place] [address] Performed By: #### 5 7021-8 ####[facility] LABCLIA [id number] [place] [address] [place] Lymphocytes (Bld) [#/Vol] 1.51 10*3/uL Normal 1.00-4.00 [facility] Comment on above: Order Comment: Speci men Type: BLOOD SPECIMENOrdering Facility: [facility] Address: [address] [place] [address] Performed By: #### 5 7021-8 ####[facility] LABIA [id number] [address] [place] [facility] Lymphocytes/100 WBC (Bld) 18.9 % Normal [facility] Comment on above: Order Comment: Speci men Type: BLOOD SPECIMENOrdering Facility: [facility] Address: [address] Performed By: #### 5 7021-8 ####[facility] LABIA [id number] [place] [address] [place] MCH (RBC) [Entitic mass] 26.7 pg Normal 26.0-34.0 [facility] Comment on above: Order Comment: Speci men Type: BLOOD SPECIMENOrdering Facility: [facility] Address: [address] Performed By: #### 5 7021-8 ####[facility] LABIA [id number] [address] [place] MCHC (RBC) [Mass/Vol] 30.8 g/dL Normal 30.5-36.0 [facility] Comment on above: Order Comment: Speci men Type: BLOOD SPECIMENOrdering Facility: [facility] Address: [address] Performed By: #### 5 7021-8 ####[facility] LABIA [id number] [place] [address] [place] MCV (RBC) [Entitic vol] 86.6 fL Normal 80.0-100.0 [facility] Comment on above: Order Comment: Speci men Type: BLOOD SPECIMENOrdering Facility: [facility] Address: [address] [place], [place] [address] Performed By: #### 5 7021-8 ####[facility] LABCLIA [id number] [place] [address] [place] Monocytes (Bld) [#/Vol] 0.73 10*3/uL Normal <0.87 [facility] Comment on above: Order Comment: Speci men Type: BLOOD SPECIMENOrdering Facility: [facility] Address: [address] [place] [address] Performed By: #### 5 7021-8 ####[facility] LABCLIA [id number] [place] [address] [place] Monocytes/100 WBC (Bld) 9.1 % Normal [facility] Comment on above: Order Comment: Speci men Type: BLOOD SPECIMENOrdering Facility: [facility] Address: [address] [place], [place] [address] Performed By: #### 5 7021-8 ####[facility] LABCLIA [id number] [place] [address] [place] Neutrophils (Bld) [#/Vol] 5.21 10*3/uL Normal 1.45-7.50 [facility] Comment on above: Order Comment: Speci men Type: BLOOD SPECIMENOrdering Facility: [facility] Address: [address] [place], [place] [address] Performed By: #### 5 7021-8 ####[facility] LABCLIA [id number] [place] [address] [place] Neutrophils/100 WBC (Bld) 65.3 % Normal [facility] Comment on above: Order Comment: Speci men Type: BLOOD SPECIMENOrdering Facility: [facility] Address: [address] [place], [place] [address] Performed By: #### 5 7021-8 ####[facility] LABCLIA [id number] [place] [address] [place] Nucleated RBC (Bld) [#/Vol] 10*3/uL Normal <0.01 [facility] Comment on above: Order Comment: Speci men Type: BLOOD SPECIMENOrdering Facility: [facility] Address: [address] Performed By: #### 5 7021-8 ####[facility] [id number] [place] [address] [place] Nucleated RBC/100 WBC (Bld) [Ratio] 0.0 /100 WBC Normal [facility] Comment on above: Order Comment: Speci men Type: BLOOD SPECIMENOrdering Facility: [facility] Address: [address] Performed By: #### 5 7021-8 ####[facility] [id number] [place] [address] [place] Platelet mean volume (Bld) [Entitic vol] 10.0 fL Normal 9.0-12.7 [facility] Comment on above: Order Comment: Speci men Type: BLOOD SPECIMENOrdering Facility: [facility] Address: [address] [place], [place] [address] Performed By: #### 5 7021-8 ####[facility] [id number] [place] [address] [place] Platelets (Bld) [#/Vol] 543 10*3/uL High 150-400 [facility] Comment on above: Order Comment: Speci men Type: BLOOD SPECIMENOrdering Facility: [facility] Address: [address] Performed By: #### 5 7021-8 ####[facility] [id number] [place] [address] [place] RBC (Bld) [#/Vol] 2.77 10*6/uL Low 4.20-6.00 [facility] Comment on above: Order Comment: Speci men Type: BLOOD SPECIMENOrdering Facility: [facility] Address: [address] [place] [address] [place] Performed By: #### 5 7021-8 ####[facility] LABIA [id number] [place] [address] [place] WBC (Bld) [#/Vol] 7.98 10*3/uL Normal 3.70-11.00 [facility] Comment on above: Order Comment: Speci men Type: BLOOD SPECIMENOrdering Facility: [facility] Address: [address] Performed By: #### 5 7021-8 ####[facility] LABIA [id number] [place] [address] [place] CONSULT PROGon 02-10-2023 CONSULT PROG Normal [facility] CONSULT PROG Normal [facility] NUTRITIONon 02-10-2023 NUTRITION Normal [facility] CBC W Auto Differential pane l (Bld)on 02-09-2023 Basophils (Bld) [#/Vol] 0.13 10*3/uL High <0.11 [facility] Comment on above: Order Comment: Speci men Type: BLOOD SPECIMENOrdering Facility: [facility] Address: [address] [place] [address] Performed By: #### 5 7021-8 ####[facility] LABIA [id number] [place] [address] [place] Basophils/100 WBC (Bld) 1.5 % Normal [facility] Comment on above: Order Comment: Speci men Type: BLOOD SPECIMENOrdering Facility: [facility] Address: [address] [place] [address] Performed By: #### 5 7021-8 ####[facility] LABIA [id number] [place] [address] [place] Differential cell count method Nom (Bld) Auto Normal [facility] Comment on above: Order Comment: Speci men Type: BLOOD SPECIMENOrdering Facility: [facility] Address: [address] Performed By: #### 5 7021-8 ####[facility] LABCLIA [id number] [place] [address] [place] Eosinophils (Bld) [#/Vol] 0.21 10*3/uL Normal <0.46 [facility] Comment on above: Order Comment: Speci men Type: BLOOD SPECIMENOrdering Facility: [facility] Address: [address] [place] [address] Performed By: #### 5 7021-8 ####[facility] LABCLIA [id number] [place] [address] [place] Eosinophils/100 WBC (Bld) 2.4 % Normal [facility] Comment on above: Order Comment: Speci men Type: BLOOD SPECIMENOrdering Facility: [facility] Address: [address] [place], [place] [address] Performed By: #### 5 7021-8 ####[facility] LABIA [id number] [place] [address] [place] Erythrocyte distribution width (RBC) [Ratio] 15.4 % High 11.5-15.0 [facility] Comment on above: Order Comment: Speci men Type: BLOOD SPECIMENOrdering Facility: [facility] Address: [address] [place], [place] [address] Performed By: #### 5 7021-8 ####[facility] LABCLIA [id number] [address] [place] Hematocrit (Bld) [Volume fraction] 24.8 % Low 39.0-51.0 [facility] Comment on above: Order Comment: Speci men Type: BLOOD SPECIMENOrdering Facility: [facility] Address: [address] [place], [place] [address] Performed By: #### 5 7021-8 ####[facility] LABCLIA [id number] [place] [address] [place] Hemoglobin (Bld) [Mass/Vol] 7.9 g/dL Low 13.0-17.0 [facility] Comment on above: Order Comment: Speci men Type: BLOOD SPECIMENOrdering Facility: [facility] Address: [address] [place] [address] Performed By: #### 5 7021-8 ####[facility] LABCLIA [id number] [place] [address] [place] Immature granulocytes (Bld) [#/Vol] 0.10 10*3/uL High <0.10 [facility] Comment on above: Order Comment: Speci men Type: BLOOD SPECIMENOrdering Facility: [facility] Address: [address] [place] [address] Performed By: #### 5 7021-8 ####[facility] LABCLIA [id number] [address] [place] Immature granulocytes/100 WBC (Bld) 1.1 % Normal [facility] Comment on above: Order Comment: Speci men Type: BLOOD SPECIMENOrdering Facility: [facility] Address: [address] [place] [address] Performed By: #### 5 7021-8 ####[facility] LABCLIA [id number] [place] [address] [place] Lymphocytes (Bld) [#/Vol] 1.39 10*3/uL Normal 1.00-4.00 [facility] Comment on above: Order Comment: Speci men Type: BLOOD SPECIMENOrdering Facility: [facility] Address: [address] [place] [address] Performed By: #### 5 7021-8 ####[facility] LABCLIA [id number] [place] [address] [place] Lymphocytes/100 WBC (Bld) 15.9 % Normal [facility] Comment on above: Order Comment: Speci men Type: BLOOD SPECIMENOrdering Facility: [facility] Address: [address] [place] [address] Performed By: #### 5 7021-8 ####[facility] LABIA [id number] [address] [place] [facility] MCH (RBC) [Entitic mass] 26.6 pg Normal 26.0-34.0 [facility] Comment on above: Order Comment: Speci men Type: BLOOD SPECIMENOrdering Facility: [facility] Address: [address] [place] [address] Performed By: #### 5 7021-8 ####[facility] LABIA [id number] [address] [place] MCHC (RBC) [Mass/Vol] 31.9 g/dL Normal 30.5-36.0 [facility] Comment on above: Order Comment: Speci men Type: BLOOD SPECIMENOrdering Facility: [facility] Address: [address] [place] [address] Performed By: #### 5 7021-8 ####[facility] LABIA [id number] [address] [place] MCV (RBC) [Entitic vol] 83.5 fL Normal 80.0-100.0 [facility] Comment on above: Order Comment: Speci men Type: BLOOD SPECIMENOrdering Facility: [facility] Address: [address] [place], [place] [address] Performed By: #### 5 7021-8 ####[facility] LABIA [id number] [place] [address] [place] Monocytes (Bld) [#/Vol] 0.80 10*3/uL Normal <0.87 [facility] Comment on above: Order Comment: Speci men Type: BLOOD SPECIMENOrdering Facility: [facility] Address: [address] [place], [place] [address] Performed By: #### 5 7021-8 ####[facility] LABCLIA [id number] [place] [address] [place] Monocytes/100 WBC (Bld) 9.2 % Normal [facility] Comment on above: Order Comment: Speci men Type: BLOOD SPECIMENOrdering Facility: [facility] Address: [address] Performed By: #### 5 7021-8 ####[facility] LABCLIA [id number] [place] [address] [place] Neutrophils (Bld) [#/Vol] 6.10 10*3/uL Normal 1.45-7.50 [facility] Comment on above: Order Comment: Speci men Type: BLOOD SPECIMENOrdering Facility: [facility] Address: [address] [place], [place] [address] Performed By: #### 5 7021-8 ####[facility] LABIA [id number] [place] [address] [place] Neutrophils/100 WBC (Bld) 69.9 % Normal [facility] Comment on above: Order Comment: Speci men Type: BLOOD SPECIMENOrdering Facility: [facility] Address: [address] [place], [place] [address] Performed By: #### 5 7021-8 ####[facility] LABIA [id number] [place] [address] [place] Nucleated RBC (Bld) [#/Vol] 10*3/uL Normal <0.01 [facility] Comment on above: Order Comment: Speci men Type: BLOOD SPECIMENOrdering Facility: [facility] Address: [address] [place] [address] Performed By: #### 5 7021-8 ####[facility] LABCLIA [id number] [place] [address] [place] Nucleated RBC/100 WBC (Bld) [Ratio] 0.0 /100 WBC Normal [facility] Comment on above: Order Comment: Speci men Type: BLOOD SPECIMENOrdering Facility: [facility] Address: [address] [place], [place] [address] Performed By: #### 5 7021-8 ####[facility] LABCLIA [id number] [place] [address] [place] Platelet mean volume (Bld) [Entitic vol] 9.3 fL Normal 9.0-12.7 [facility] Comment on above: Order Comment: Speci men Type: BLOOD SPECIMENOrdering Facility: [facility] Address: [address] [place], [place] [address] Performed By: #### 5 7021-8 ####[facility] LABCLIA [id number] [place] [address] [place] Platelets (Bld) [#/Vol] 537 10*3/uL High 150-400 [facility] Comment on above: Order Comment: Speci men Type: BLOOD SPECIMENOrdering Facility: [facility] Address: [address] [place], [place] [address] Performed By: #### 5 7021-8 ####[facility] LABCLIA [id number] [place] [address] [place] RBC (Bld) [#/Vol] 2.97 10*6/uL Low 4.20-6.00 [facility] Comment on above: Order Comment: Speci men Type: BLOOD SPECIMENOrdering Facility: [facility] Address: [address] [place], [place] [address] Performed By: #### 5 7021-8 ####[facility] LABCLIA [id number] [place] [address] [place] WBC (Bld) [#/Vol] 8.73 10*3/uL Normal 3.70-11.00 [facility] Comment on above: Order Comment: Speci men Type: BLOOD SPECIMENOrdering Facility: [facility] Address: [address] [place], [place] [address] Performed By: #### 5 7021-8 ####[facility] LABCLIA [id number] [place] [address] [place] CONSULT PROGon 02-09-2023 CONSULT PROG Normal [facility] CASE MANAGEMon 02-08-2023 CASE MANAGEM Normal [facility] CBC W Auto Differential pane l (Bld)on 02-08-2023 Basophils (Bld) [#/Vol] 0.15 10*3/uL High <0.11 [facility] Comment on above: Order Comment: Speci men Type: BLOOD SPECIMENOrdering Facility: [facility] Address: [address] [place] [address] Performed By: #### 5 7021-8 ####[facility] LABCLIA [id number] [place] [address] [place] Basophils/100 WBC (Bld) 1.4 % Normal [facility] Comment on above: Order Comment: Speci men Type: BLOOD SPECIMENOrdering Facility: [facility] Address: [address] [place] [address] Performed By: #### 5 7021-8 ####[facility] LABCLIA [id number] [place] [address] [place] Differential cell count method Nom (Bld) Auto Normal [facility] Comment on above: Order Comment: Speci men Type: BLOOD SPECIMENOrdering Facility: [facility] Address: [address] [place], [place] [address] Performed By: #### 5 7021-8 ####[facility] LABCLIA [id number] [place] [address] [place] Eosinophils (Bld) [#/Vol] 0.20 10*3/uL Normal <0.46 [facility] Comment on above: Order Comment: Speci men Type: BLOOD SPECIMENOrdering Facility: [facility] Address: [address] Performed By: #### 5 7021-8 ####[facility] LABCLIA [id number] [place] [address] [place] Eosinophils/100 WBC (Bld) 1.8 % Normal [facility] Comment on above: Order Comment: Speci men Type: BLOOD SPECIMENOrdering Facility: [facility] Address: [address] Performed By: #### 5 7021-8 ####[facility] LABCLIA [id number] [place] [address] [place] Erythrocyte distribution width (RBC) [Ratio] 15.7 % High 11.5-15.0 [facility] Comment on above: Order Comment: Speci men Type: BLOOD SPECIMENOrdering Facility: [facility] Address: [address] Performed By: #### 5 7021-8 ####[facility] LABCLIA [id number] [place] [address] [place] Hematocrit (Bld) [Volume fraction] 27.0 % Low 39.0-51.0 [facility] Comment on above: Order Comment: Speci men Type: BLOOD SPECIMENOrdering Facility: [facility] Address: [address] Performed By: #### 5 7021-8 ####[facility] LABCLIA [id number] [place] [address] [place] Hemoglobin (Bld) [Mass/Vol] 8.5 g/dL Low 13.0-17.0 [facility] Comment on above: Order Comment: Speci men Type: BLOOD SPECIMENOrdering Facility: [facility] Address: [address] Performed By: #### 5 7021-8 ####[facility] LABCLIA [id number] [place] [address] [place] Immature granulocytes (Bld) [#/Vol] 0.16 10*3/uL High <0.10 [facility] Comment on above: Order Comment: Speci men Type: BLOOD SPECIMENOrdering Facility: [facility] Address: [address] [place] [address] Performed By: #### 5 7021-8 ####[facility] LABCLIA [id number] [address] [place] Immature granulocytes/100 WBC (Bld) 1.4 % Normal [facility] Comment on above: Order Comment: Speci men Type: BLOOD SPECIMENOrdering Facility: [facility] Address: [address] [place] [address] Performed By: #### 5 7021-8 ####[facility] LABCLIA [id number] [place] [address] [place] Lymphocytes (Bld) [#/Vol] 1.49 10*3/uL Normal 1.00-4.00 [facility] Comment on above: Order Comment: Speci men Type: BLOOD SPECIMENOrdering Facility: [facility] Address: [address] [place] [address] Performed By: #### 5 7021-8 ####[facility] LABCLIA [id number] [place] [address] [place] Lymphocytes/100 WBC (Bld) 13.5 % Normal [facility] Comment on above: Order Comment: Speci men Type: BLOOD SPECIMENOrdering Facility: [facility] Address: [address] [place], [place] [address] Performed By: #### 5 7021-8 ####[facility] LABCLIA [id number] [place] [address] [place] MCH (RBC) [Entitic mass] 27.1 pg Normal 26.0-34.0 [facility] Comment on above: Order Comment: Speci men Type: BLOOD SPECIMENOrdering Facility: [facility] Address: [address] Performed By: #### 5 7021-8 ####[facility] LABIA [id number] [place] [address] [place] MCHC (RBC) [Mass/Vol] 31.5 g/dL Normal 30.5-36.0 [facility] Comment on above: Order Comment: Speci men Type: BLOOD SPECIMENOrdering Facility: [facility] Address: [address] Performed By: #### 5 7021-8 ####[facility] LABIA [id number] [place] [address] [place] MCV (RBC) [Entitic vol] 86.0 fL Normal 80.0-100.0 [facility] Comment on above: Order Comment: Speci men Type: BLOOD SPECIMENOrdering Facility: [facility] Address: [address] Performed By: #### 5 7021-8 ####[facility] LABIA [id number] [place] [address] [place] [place] Monocytes (Bld) [#/Vol] 0.98 10*3/uL High <0.87 [facility] Comment on above: Order Comment: Speci men Type: BLOOD SPECIMENOrdering Facility: [facility] Address: [address] Performed By: #### 5 7021-8 ####[facility] LABIA [id number] [address] [place] Monocytes/100 WBC (Bld) 8.9 % Normal [facility] Comment on above: Order Comment: Speci men Type: BLOOD SPECIMENOrdering Facility: [facility] Address: [address] Performed By: #### 5 7021-8 ####[facility] LABCLIA [id number] [place] [address] [place] Neutrophils (Bld) [#/Vol] 8.08 10*3/uL High 1.45-7.50 [facility] Comment on above: Order Comment: Speci men Type: BLOOD SPECIMENOrdering Facility: [facility] Address: [address] [place] [address] Performed By: #### 5 7021-8 ####[facility] LABCLIA [id number] [place] [address] [place] Neutrophils/100 WBC (Bld) 73.0 % Normal [facility] Comment on above: Order Comment: Speci men Type: BLOOD SPECIMENOrdering Facility: [facility] Address: [address] [place] [address] Performed By: #### 5 7021-8 ####[facility] LABIA [id number] [place] [address] [place] Nucleated RBC (Bld) [#/Vol] 10*3/uL Normal <0.01 [facility] Comment on above: Order Comment: Speci men Type: BLOOD SPECIMENOrdering Facility: [facility] Address: [address] [place], [place] [address] Performed By: #### 5 7021-8 ####[facility] LABIA [id number] [place] [address] [place] Nucleated RBC/100 WBC (Bld) [Ratio] 0.0 /100 WBC Normal [facility] Comment on above: Order Comment: Speci men Type: BLOOD SPECIMENOrdering Facility: [facility] Address: [address] [place], [place] [address] Performed By: #### 5 7021-8 ####[facility] LABIA [id number] [place] [address] [place] Platelet mean volume (Bld) [Entitic vol] 9.7 fL Normal 9.0-12.7 [facility] Comment on above: Order Comment: Speci men Type: BLOOD SPECIMENOrdering Facility: [facility] Address: [address] [place], [place] [address] Performed By: #### 5 7021-8 ####[facility] LABCLIA [id number] [place] [address] [place] Platelets (Bld) [#/Vol] 590 10*3/uL High 150-400 [facility] Comment on above: Order Comment: Speci men Type: BLOOD SPECIMENOrdering Facility: [facility] Address: [address] Performed By: #### 5 7021-8 ####[facility] LABCLIA [id number] [place] [address] [place] RBC (Bld) [#/Vol] 3.14 10*6/uL Low 4.20-6.00 [facility] Comment on above: Order Comment: Speci men Type: BLOOD SPECIMENOrdering Facility: [facility] Address: [address] [place], [place] [address] Performed By: #### 5 7021-8 ####[facility] LABCLIA [id number] [place] [address] [place] WBC (Bld) [#/Vol] 11.06 10*3/uL High 3.70-11.00 [facility] Comment on above: Order Comment: Speci men Type: BLOOD SPECIMENOrdering Facility: [facility] Address: [address] [place], [place] [address] Performed By: #### 5 7021-8 ####[facility] LABCLIA [id number] [place] [address] [place] CONSULT PROGon 02-08-2023 CONSULT PROG Normal [facility] Comprehensive metabolic 2000 panelon 02-08-2023 Albumin [Mass/Vol] 3.4 g/dL Low 3.9-4.9 [facility] Comment on above: Order Comment: Speci men Type: BLOOD SPECIMENOrdering Facility: [facility] Address: [address] [place], [place] [address] Performed By: #### 2 4323-8 ####[facility] LABCLIA [id number] [place] [address] [place] ALP [Catalytic activity/Vol] 172 U/L High 38-113 [facility] Comment on above: Order Comment: Speci men Type: BLOOD SPECIMENOrdering Facility: [facility] Address: [address] Performed By: #### 2 4323-8 ####[facility] LABCLIA [id number] [place] [address] [place] ALT [Catalytic activity/Vol] 118 U/L High 10-54 [facility] Comment on above: Order Comment: Speci men Type: BLOOD SPECIMENOrdering Facility: [facility] Address: [address] [place], [place] [address] Performed By: #### 2 4323-8 ####[facility] LABCLIA [id number] [place] [address] [place] Anion gap [Moles/Vol] 9 mmol/L Normal 9-18 [facility] Comment on above: Order Comment: Speci men Type: BLOOD SPECIMENOrdering Facility: [facility] Address: [address] Performed By: #### 2 4323-8 ####[facility] LABCLIA [id number] [place] [address] [place] AST [Catalytic activity/Vol] 64 U/L High 14-40 [facility] Comment on above: Order Comment: Speci men Type: BLOOD SPECIMENOrdering Facility: [facility] Address: [address] Performed By: #### 2 4323-8 ####[facility] LABCLIA [id number] [place] [address] [place] Bilirubin [Mass/Vol] 0.3 mg/dL Normal 0.2-1.3 [facility] Comment on above: Order Comment: Speci men Type: BLOOD SPECIMENOrdering Facility: [facility] Address: [address] [place] [place] [address] Performed By: #### 2 4323-8 ####[facility] LABCLIA [id number] [place] [address] [place] Calcium [Mass/Vol] 8.5 mg/dL Normal 8.5-10.2 [facility] Comment on above: Order Comment: Speci men Type: BLOOD SPECIMENOrdering Facility: [facility] Address: [address] [place] [address] Performed By: #### 2 4323-8 ####[facility] LABCLIA [id number] [place] [address] [place] Chloride [Moles/Vol] 100 mmol/L Normal 97-105 [facility] Comment on above: Order Comment: Speci men Type: BLOOD SPECIMENOrdering Facility: [facility] Address: [address] [place], [place] [address] Performed By: #### 2 4323-8 ####[facility] LABCLIA [id number] [place] [address] [place] CO2 [Moles/Vol] 24 mmol/L Normal 22-30 [facility] Comment on above: Order Comment: Speci men Type: BLOOD SPECIMENOrdering Facility: [facility] Address: [address] Performed By: #### 2 4323-8 ####[facility] LABCLIA [id number] [place] [address] [place] Creatinine [Mass/Vol] 0.97 mg/dL Normal 0.73-1.22 [facility] Comment on above: Order Comment: Alden padilla Type: BLOOD SPECIMENOrdering Facility: [facility] Address: [address] [id number] Performed By: #### 2 4323-8 ####[facility] LABCLIA [id number] [place] [address] [place] ESTIMATED GLOMERULAR FILTRATION RATE 90 mL/min/1.73m??? Normal >=60 [facility] Comment on above: Order Comment: Alden men Type: BLOOD SPECIMENOrdering Facility: [facility] Address: [address] [address] Result Comment: Veronica mated Glomerular Filtration Rate [...] actual GFR. Performed By: #### 2 4323-8 ####[facility] LABCLIA [id number] [place] [address] [place] Glucose [Mass/Vol] 123 mg/dL High 74-99 [facility] Comment on above: Order Comment: Alden valerie Type: BLOOD SPECIMENOrdering Facility: [facility] Address: [address] [address] Result Comment: The [place] [employer] (ADA) provides guidance for cutoff [...] Standards of Medical Care in Diabetes 2016, [place] [employer]. Diabetes Care. 2016.39(Suppl 1). Performed By: #### 2 4323-8 ####[facility] LABCLIA [id number] [place] [address] [place] Potassium [Moles/Vol] 4.7 mmol/L Normal 3.7-5.1 [facility] Comment on above: Order Comment: Speci men Type: BLOOD SPECIMENOrdering Facility: [facility] Address: [address] [place] [place] [address] Performed By: #### 2 4323-8 ####[facility] LABIA [id number] [place] [address] [place] Protein [Mass/Vol] 7.5 g/dL Normal 6.3-8.0 [facility] Comment on above: Order Comment: Speci men Type: BLOOD SPECIMENOrdering Facility: [facility] Address: [address] [place] [address] Performed By: #### 2 4323-8 ####[facility] LABIA [id number] [place] [address] [place] Sodium [Moles/Vol] 133 mmol/L Low 136-144 [facility] Comment on above: Order Comment: Speci men Type: BLOOD SPECIMENOrdering Facility: [facility] Address: [address] Performed By: #### 2 4323-8 ####[facility] LABIA [id number] [place] [address] [place] Urea nitrogen [Mass/Vol] 24 mg/dL Normal 9-24 [facility] Comment on above: Order Comment: Speci men Type: BLOOD SPECIMENOrdering Facility: [facility] Address: [address] Performed By: #### 2 4323-8 ####[facility] LABIA [id number] [place] [address] [place] TYPE + SCREENon 02-08-2023 ABO A Normal [facility] Comment on above: Order Comment: Speci men Type: BLOOD SPECIMENOrdering Facility: [facility] Address: [address] [place] [address] Performed By: #### T SCR ####[facility] BLOOD BANKCLIA [id number] [address] [place] HISTORICAL AB SCR STATUS Negative Normal [facility] Comment on above: Order Comment: Speci men Type: BLOOD SPECIMENOrdering Facility: [facility] Address: [address] [place] [address] Performed By: #### T SCR ####[facility] BLOOD BANKCLIA [id number] [address] [place] Rh Nom (Bld) Positive Normal [facility] Comment on above: Order Comment: Speci men Type: BLOOD SPECIMENOrdering Facility: [facility] Address: [address] [place] [address] Performed By: #### T SCR ####[facility] BLOOD BANKCLIA [id number] [place] [address] [place] TYPE AND SCREEN EXPIRATION 02/11/2023 23:59 Normal [facility] Comment on above: Order Comment: Speci men Type: BLOOD SPECIMENOrdering Facility: [facility] Address: [address] [place] [address] Performed By: #### T SCR ####[facility] BLOOD BANKCLIA [id number] [place] [address] [place] CASE MANAGEMon 02-07-2023 CASE MANAGEM Normal [facility] CBC W Auto Differential pane l (Bld)on 02-07-2023 Basophils (Bld) [#/Vol] 0.18 10*3/uL High <0.11 [facility] Comment on above: Order Comment: Speci men Type: BLOOD SPECIMENOrdering Facility: [facility] Address: [address] Performed By: #### 5 7021-8 ####[facility] LABCLIA [id number] [address] [place] Basophils/100 WBC (Bld) 1.7 % Normal [facility] Comment on above: Order Comment: Speci men Type: BLOOD SPECIMENOrdering Facility: [facility] Address: [address] [place], [place] [address] Performed By: #### 5 7021-8 ####[facility] LABCLIA [id number] [place] [address] [place] Differential cell count method Nom (Bld) Auto Normal [facility] Comment on above: Order Comment: Speci men Type: BLOOD SPECIMENOrdering Facility: [facility] Address: [address] [place], [place] [address] Performed By: #### 5 7021-8 ####[facility] LABCLIA [id number] [place] [address] [place] Eosinophils (Bld) [#/Vol] 0.17 10*3/uL Normal <0.46 [facility] Comment on above: Order Comment: Speci men Type: BLOOD SPECIMENOrdering Facility: [facility] Address: [address] [place], [place] [address] Performed By: #### 5 7021-8 ####[facility] LABCLIA [id number] [address] [place] Eosinophils/100 WBC (Bld) 1.6 % Normal [facility] Comment on above: Order Comment: Speci men Type: BLOOD SPECIMENOrdering Facility: [facility] Address: [address] [place], [place] [address] Performed By: #### 5 7021-8 ####[facility] LABCLIA [id number] [place] [address] [place] Erythrocyte distribution width (RBC) [Ratio] 15.8 % High 11.5-15.0 [facility] Comment on above: Order Comment: Speci men Type: BLOOD SPECIMENOrdering Facility: [facility] Address: [address] [place] [address] Performed By: #### 5 7021-8 ####[facility] LABCLIA [id number] [place] [address] [place] Hematocrit (Bld) [Volume fraction] 25.8 % Low 39.0-51.0 [facility] Comment on above: Order Comment: Speci men Type: BLOOD SPECIMENOrdering Facility: [facility] Address: [address] [place] [address] Performed By: #### 5 7021-8 ####[facility] LABIA [id number] [place] [address] [place] Hemoglobin (Bld) [Mass/Vol] 8.4 g/dL Low 13.0-17.0 [facility] Comment on above: Order Comment: Speci men Type: BLOOD SPECIMENOrdering Facility: [facility] Address: [address] [place], [place] [address] Performed By: #### 5 7021-8 ####[facility] LABIA [id number] [place] [address] [place] Immature granulocytes (Bld) [#/Vol] 0.13 10*3/uL High <0.10 [facility] Comment on above: Order Comment: Speci men Type: BLOOD SPECIMENOrdering Facility: [facility] Address: [address] Performed By: #### 5 7021-8 ####[facility] LABIA [id number] [place] [address] [place] Immature granulocytes/100 WBC (Bld) 1.2 % Normal [facility] Comment on above: Order Comment: Speci men Type: BLOOD SPECIMENOrdering Facility: [facility] Address: [address] Performed By: #### 5 7021-8 ####[facility] LABCLIA [id number] [place] [address] [place] Lymphocytes (Bld) [#/Vol] 1.62 10*3/uL Normal 1.00-4.00 [facility] Comment on above: Order Comment: Speci men Type: BLOOD SPECIMENOrdering Facility: [facility] Address: [address] Performed By: #### 5 7021-8 ####[facility] LABCLIA [id number] [address] [place] Lymphocytes/100 WBC (Bld) 14.9 % Normal [facility] Comment on above: Order Comment: Speci men Type: BLOOD SPECIMENOrdering Facility: [facility] Address: [address] Performed By: #### 5 7021-8 ####[facility] LABCLIA [id number] [place] [address] [place] MCH (RBC) [Entitic mass] 27.3 pg Normal 26.0-34.0 [facility] Comment on above: Order Comment: Speci men Type: BLOOD SPECIMENOrdering Facility: [facility] Address: [address] Performed By: #### 5 7021-8 ####[facility] LABCLIA [id number] [place] [address] [place] MCHC (RBC) [Mass/Vol] 32.6 g/dL Normal 30.5-36.0 [facility] Comment on above: Order Comment: Speci men Type: BLOOD SPECIMENOrdering Facility: [facility] Address: [address] Performed By: #### 5 7021-8 ####[facility] LABCLIA [id number] [place] [address] [place] MCV (RBC) [Entitic vol] 83.8 fL Normal 80.0-100.0 [facility] Comment on above: Order Comment: Speci men Type: BLOOD SPECIMENOrdering Facility: [facility] Address: [address] [place] [address] Performed By: #### 5 7021-8 ####[facility] LABCLIA [id number] [place] [address] [place] Monocytes (Bld) [#/Vol] 0.97 10*3/uL High <0.87 [facility] Comment on above: Order Comment: Speci men Type: BLOOD SPECIMENOrdering Facility: [facility] Address: [address] [place] [address] Performed By: #### 5 7021-8 ####[facility] LABCLIA [id number] [address] [place] Monocytes/100 WBC (Bld) 8.9 % Normal [facility] Comment on above: Order Comment: Speci men Type: BLOOD SPECIMENOrdering Facility: [facility] Address: [address] [place], [place] [address] Performed By: #### 5 7021-8 ####[facility] LABCLIA [id number] [place] [address] [place] Neutrophils (Bld) [#/Vol] 7.83 10*3/uL High 1.45-7.50 [facility] Comment on above: Order Comment: Speci men Type: BLOOD SPECIMENOrdering Facility: [facility] Address: [address] [place], [place] [address] Performed By: #### 5 7021-8 ####[facility] LABCLIA [id number] [place] [address] [place] Neutrophils/100 WBC (Bld) 71.7 % Normal [facility] Comment on above: Order Comment: Speci men Type: BLOOD SPECIMENOrdering Facility: [facility] Address: [address] [place] [address] Performed By: #### 5 7021-8 ####[facility] [id number] [place] [address] [place] Nucleated RBC (Bld) [#/Vol] 10*3/uL Normal <0.01 [facility] Comment on above: Order Comment: Speci men Type: BLOOD SPECIMENOrdering Facility: [facility] Address: [address] Performed By: #### 5 7021-8 ####[facility] [id number] [place] [address] [place] Nucleated RBC/100 WBC (Bld) [Ratio] 0.0 /100 WBC Normal [facility] Comment on above: Order Comment: Speci men Type: BLOOD SPECIMENOrdering Facility: [facility] Address: [address] Performed By: #### 5 7021-8 ####[facility] [id number] [place] [address] [place] Platelet mean volume (Bld) [Entitic vol] 9.4 fL Normal 9.0-12.7 [facility] Comment on above: Order Comment: Speci men Type: BLOOD SPECIMENOrdering Facility: [facility] Address: [address] [place] [address] Performed By: #### 5 7021-8 ####[facility] [id number] [place] [address] [place] Platelets (Bld) [#/Vol] 593 10*3/uL High 150-400 [facility] Comment on above: Order Comment: Speci men Type: BLOOD SPECIMENOrdering Facility: [facility] Address: [address] [place] [address] Performed By: #### 5 7021-8 ####[facility] LABIA [id number] [place] [address] [place] RBC (Bld) [#/Vol] 3.08 10*6/uL Low 4.20-6.00 [facility] Comment on above: Order Comment: Speci men Type: BLOOD SPECIMENOrdering Facility: [facility] Address: [address] [address] Performed By: #### 5 7021-8 ####[facility] LABIA [id number] [place] [address] [place] WBC (Bld) [#/Vol] 10.90 10*3/uL Normal 3.70-11.00 [facility] Comment on above: Order Comment: Speci men Type: BLOOD SPECIMENOrdering Facility: [facility] Address: [address] Performed By: #### 5 7021-8 ####[facility] [id number] [place] [address] [place] CONSULT PROGon 02-07-2023 CONSULT PROG Normal [facility] CONSULT PROG Normal [facility] Comprehensive metabolic 2000 panelon 02-07-2023 Albumin [Mass/Vol] 3.5 g/dL Low 3.9-4.9 [facility] Comment on above: Order Comment: Speci men Type: BLOOD SPECIMENOrdering Facility: [facility] Address: [address] Performed By: #### 2 4323-8 ####[facility] LABIA [id number] [place] [address] [place] ALP [Catalytic activity/Vol] 162 U/L High 38-113 [facility] Comment on above: Order Comment: Speci men Type: BLOOD SPECIMENOrdering Facility: [facility] Address: [address] Performed By: #### 2 4323-8 ####[facility] LABCLIA [id number] [place] [address] [place] ALT [Catalytic activity/Vol] 129 U/L High 10-54 [facility] Comment on above: Order Comment: Speci men Type: BLOOD SPECIMENOrdering Facility: [facility] Address: [address] [place] [address] Performed By: #### 2 4323-8 ####[facility] LABCLIA [id number] [place] [address] [place] Anion gap [Moles/Vol] 8 mmol/L Low 9-18 [facility] Comment on above: Order Comment: Speci men Type: BLOOD SPECIMENOrdering Facility: [facility] Address: [address] [place] [address] Performed By: #### 2 4323-8 ####[facility] LABCLIA [id number] [place] [address] [place] AST [Catalytic activity/Vol] 57 U/L High 14-40 [facility] Comment on above: Order Comment: Speci men Type: BLOOD SPECIMENOrdering Facility: [facility] Address: [address] [place] [address] Performed By: #### 2 4323-8 ####[facility] LABCLIA [id number] [place] [address] [place] Bilirubin [Mass/Vol] 0.4 mg/dL Normal 0.2-1.3 [facility] Comment on above: Order Comment: Speci men Type: BLOOD SPECIMENOrdering Facility: [facility] Address: [address] [place] [address] Performed By: #### 2 4323-8 ####[facility] LABCLIA [id number] [place] [address] [place] Calcium [Mass/Vol] 8.6 mg/dL Normal 8.5-10.2 [facility] Comment on above: Order Comment: Speci men Type: BLOOD SPECIMENOrdering Facility: [facility] Address: [address] Performed By: #### 2 4323-8 ####[facility] LABCLIA [id number] [place] [address] [place] Chloride [Moles/Vol] 97 mmol/L Normal 97-105 [facility] Comment on above: Order Comment: Speci men Type: BLOOD SPECIMENOrdering Facility: [facility] Address: [address] [place] [address] Performed By: #### 2 4323-8 ####[facility] LABCLIA [id number] [place] [address] [place] CO2 [Moles/Vol] 25 mmol/L Normal 22-30 [facility] Comment on above: Order Comment: Speci men Type: BLOOD SPECIMENOrdering Facility: [facility] Address: [address] Performed By: #### 2 4323-8 ####[facility] LABCLIA [id number] [place] [address] [place] Creatinine [Mass/Vol] 0.87 mg/dL Normal 0.73-1.22 [facility] Comment on above: Order Comment: Speci men Type: BLOOD SPECIMENOrdering Facility: [facility] Address: [address] Performed By: #### 2 4323-8 ####[facility] LABCLIA [id number] [place] [address] [place] ESTIMATED GLOMERULAR FILTRATION RATE 99 mL/min/1.73m??? Normal >=60 [facility] Comment on above: Order Comment: Speci men Type: BLOOD SPECIMENOrdering Facility: [facility] Address: [address] Result Comment: Veronica mated Glomerular Filtration [...] actual GFR. Performed By: #### 2 4323-8 ####[facility] LABCLIA [id number] [place] [address] [place] Glucose [Mass/Vol] 133 mg/dL High 74-99 [facility] Comment on above: Order Comment: Alden padilla Type: BLOOD SPECIMENOrdering Facility: [facility] Address: [address] [place] [address] Result Comment: The [place] [employer] (ADA) provides guidance for cutoff [...] Standards of Medical Care in Diabetes 2016, [place] [employer]. Diabetes Care. 2016.39(Suppl 1). Performed By: #### 2 4323-8 ####[facility] LABIA [id number] [place] [address] [place] Potassium [Moles/Vol] 4.7 mmol/L Normal 3.7-5.1 [facility] Comment on above: Order Comment: Alden padilla Type: BLOOD SPECIMENOrdering Facility: [facility] Address: [address] [id number] Performed By: #### 2 4323-8 ####[facility] LABIA [id number] [place] [address] [place] Protein [Mass/Vol] 7.5 g/dL Normal 6.3-8.0 [facility] Comment on above: Order Comment: Speci men Type: BLOOD SPECIMENOrdering Facility: [facility] Address: [address] [place], [place] [address] Performed By: #### 2 4323-8 ####[facility] LABCLIA [id number] [place] [address] [place] Sodium [Moles/Vol] 130 mmol/L Low 136-144 [facility] Comment on above: Order Comment: Speci men Type: BLOOD SPECIMENOrdering Facility: [facility] Address: [address] [place] [address] Performed By: #### 2 4323-8 ####[facility] LABCLIA [id number] [place] [address] [place] Urea nitrogen [Mass/Vol] 19 mg/dL Normal 9-24 [facility] Comment on above: Order Comment: Speci men Type: BLOOD SPECIMENOrdering Facility: [facility] Address: [address] [place], [place] [address] Performed By: #### 2 4323-8 ####[facility] LABCLIA [id number] [place] [address] [place] THERAPY NTon 02-07-2023 THERAPY NT Normal [facility] CBC W Auto Differential pane l (Bld)on 02-06-2023 Basophils (Bld) [#/Vol] 0.18 10*3/uL High <0.11 [facility] Comment on above: Order Comment: Speci men Type: BLOOD SPECIMENOrdering Facility: [facility] Address: [address] [place], [place] [address] Performed By: #### 5 7021-8 ####[facility] LABCLIA [id number] [place] [address] [place] Basophils/100 WBC (Bld) 1.6 % Normal [facility] Comment on above: Order Comment: Speci men Type: BLOOD SPECIMENOrdering Facility: [facility] Address: [address] Performed By: #### 5 7021-8 ####[facility] LABCLIA [id number] [place] [address] [place] Differential cell count method Nom (Bld) Auto Normal [facility] Comment on above: Order Comment: Speci men Type: BLOOD SPECIMENOrdering Facility: [facility] Address: [address] Performed By: #### 5 7021-8 ####[facility] LABCLIA [id number] [place] [address] [place] Eosinophils (Bld) [#/Vol] 0.13 10*3/uL Normal <0.46 [facility] Comment on above: Order Comment: Speci men Type: BLOOD SPECIMENOrdering Facility: [facility] Address: [address] [place], [place] [address] Performed By: #### 5 7021-8 ####[facility] LABCLIA [id number] [place] [address] [place] Eosinophils/100 WBC (Bld) 1.2 % Normal [facility] Comment on above: Order Comment: Speci men Type: BLOOD SPECIMENOrdering Facility: [facility] Address: [address] [place], [place] [address] Performed By: #### 5 7021-8 ####[facility] LABCLIA [id number] [place] [address] [place] Erythrocyte distribution width (RBC) [Ratio] 15.9 % High 11.5-15.0 [facility] Comment on above: Order Comment: Speci men Type: BLOOD SPECIMENOrdering Facility: [facility] Address: [address] Performed By: #### 5 7021-8 ####[facility] LABCLIA [id number] [place] [address] [place] Hematocrit (Bld) [Volume fraction] 25.5 % Low 39.0-51.0 [facility] Comment on above: Order Comment: Speci men Type: BLOOD SPECIMENOrdering Facility: [facility] Address: [address] [place] [address] Performed By: #### 5 7021-8 ####[facility] [id number] [place] [address] [place] Hemoglobin (Bld) [Mass/Vol] 8.2 g/dL Low 13.0-17.0 [facility] Comment on above: Order Comment: Speci men Type: BLOOD SPECIMENOrdering Facility: [facility] Address: [address] [place] [address] Performed By: #### 5 7021-8 ####[facility] [id number] [place] [address] [place] Immature granulocytes (Bld) [#/Vol] 0.14 10*3/uL High <0.10 [facility] Comment on above: Order Comment: Speci men Type: BLOOD SPECIMENOrdering Facility: [facility] Address: [address] [place] [address] Performed By: #### 5 7021-8 ####[facility] LABIA [id number] [place] [address] [place] Immature granulocytes/100 WBC (Bld) 1.2 % Normal [facility] Comment on above: Order Comment: Speci men Type: BLOOD SPECIMENOrdering Facility: [facility] Address: [address] [place], [place] [address] Performed By: #### 5 7021-8 ####[facility] LABIA [id number] [place] [address] [place] Lymphocytes (Bld) [#/Vol] 1.57 10*3/uL Normal 1.00-4.00 [facility] Comment on above: Order Comment: Speci men Type: BLOOD SPECIMENOrdering Facility: [facility] Address: [address] [place], [place] [address] Performed By: #### 5 7021-8 ####[facility] LABCLIA [id number] [address] [place] Lymphocytes/100 WBC (Bld) 14.0 % Normal [facility] Comment on above: Order Comment: Speci men Type: BLOOD SPECIMENOrdering Facility: [facility] Address: [address] [place] [address] Performed By: #### 5 7021-8 ####[facility] LABCLIA [id number] [address] [place] MCH (RBC) [Entitic mass] 26.9 pg Normal 26.0-34.0 [facility] Comment on above: Order Comment: Speci men Type: BLOOD SPECIMENOrdering Facility: [facility] Address: [address] [place], [place] [address] Performed By: #### 5 7021-8 ####[facility] LABIA [id number] [address] [place] MCHC (RBC) [Mass/Vol] 32.2 g/dL Normal 30.5-36.0 [facility] Comment on above: Order Comment: Speci men Type: BLOOD SPECIMENOrdering Facility: [facility] Address: [address] Performed By: #### 5 7021-8 ####[facility] LABIA [id number] [address] [place] MCV (RBC) [Entitic vol] 83.6 fL Normal 80.0-100.0 [facility] Comment on above: Order Comment: Speci men Type: BLOOD SPECIMENOrdering Facility: [facility] Address: [address] [place], [place] [address] Performed By: #### 5 7021-8 ####[facility] LABCLIA [id number] [place] [address] [place] Monocytes (Bld) [#/Vol] 0.78 10*3/uL Normal <0.87 [facility] Comment on above: Order Comment: Speci men Type: BLOOD SPECIMENOrdering Facility: [facility] Address: [address] Performed By: #### 5 7021-8 ####[facility] LABCLIA [id number] [place] [address] [place] Monocytes/100 WBC (Bld) 7.0 % Normal [facility] Comment on above: Order Comment: Speci men Type: BLOOD SPECIMENOrdering Facility: [facility] Address: [address] [place], [place] [address] Performed By: #### 5 7021-8 ####[facility] LABCLIA [id number] [place] [address] [place] Neutrophils (Bld) [#/Vol] 8.42 10*3/uL High 1.45-7.50 [facility] Comment on above: Order Comment: Speci men Type: BLOOD SPECIMENOrdering Facility: [facility] Address: [address] [place], [place] [address] Performed By: #### 5 7021-8 ####[facility] LABCLIA [id number] [place] [address] [place] Neutrophils/100 WBC (Bld) 75.0 % Normal [facility] Comment on above: Order Comment: Speci men Type: BLOOD SPECIMENOrdering Facility: [facility] Address: [address] [place], [place] [address] Performed By: #### 5 7021-8 ####[facility] LABCLIA [id number] [place] [address] [place] Nucleated RBC (Bld) [#/Vol] 10*3/uL Normal <0.01 [facility] Comment on above: Order Comment: Speci men Type: BLOOD SPECIMENOrdering Facility: [facility] Address: [address] [place], [place] [address] Performed By: #### 5 7021-8 ####[facility] LABCLIA [id number] [place] [address] [place] Nucleated RBC/100 WBC (Bld) [Ratio] 0.0 /100 WBC Normal [facility] Comment on above: Order Comment: Speci men Type: BLOOD SPECIMENOrdering Facility: [facility] Address: [address] [place], [place] [address] Performed By: #### 5 7021-8 ####[facility] LABCLIA [id number] [place] [address] [place] Platelet mean volume (Bld) [Entitic vol] 9.6 fL Normal 9.0-12.7 [facility] Comment on above: Order Comment: Speci men Type: BLOOD SPECIMENOrdering Facility: [facility] Address: [address] [place], [place] [address] Performed By: #### 5 7021-8 ####[facility] LABIA [id number] [place] [address] [place] Platelets (Bld) [#/Vol] 632 10*3/uL High 150-400 [facility] Comment on above: Order Comment: Speci men Type: BLOOD SPECIMENOrdering Facility: [facility] Address: [address] [place], [place] [address] Performed By: #### 5 7021-8 ####[facility] LABCLIA [id number] [place] [address] [place] RBC (Bld) [#/Vol] 3.05 10*6/uL Low 4.20-6.00 [facility] Comment on above: Order Comment: Speci men Type: BLOOD SPECIMENOrdering Facility: [facility] Address: [address] Performed By: #### 5 7021-8 ####[facility] LABCLIA [id number] [place] [address] [place] WBC (Bld) [#/Vol] 11.22 10*3/uL High 3.70-11.00 [facility] Comment on above: Order Comment: Speci men Type: BLOOD SPECIMENOrdering Facility: [facility] Address: [address] Performed By: #### 5 7021-8 ####[facility] LABCLIA [id number] [place] [address] [place] Comprehensive metabolic 2000 panelon 02-06-2023 Albumin [Mass/Vol] 3.4 g/dL Low 3.9-4.9 [facility] Comment on above: Order Comment: Speci men Type: BLOOD SPECIMENOrdering Facility: [facility] Address: [address] Performed By: #### 2 4323-8 ####[facility] LABCLIA [id number] [place] [address] [place] ALP [Catalytic activity/Vol] 153 U/L High 38-113 [facility] Comment on above: Order Comment: Speci men Type: BLOOD SPECIMENOrdering Facility: [facility] Address: [address] Performed By: #### 2 4323-8 ####[facility] LABCLIA [id number] [place] [address] [place] ALT [Catalytic activity/Vol] 166 U/L High 10-54 [facility] Comment on above: Order Comment: Speci men Type: BLOOD SPECIMENOrdering Facility: [facility] Address: [address] Performed By: #### 2 4323-8 ####[facility] LABCLIA [id number] [place] [address] [place] Anion gap [Moles/Vol] 9 mmol/L Normal 9-18 [facility] Comment on above: Order Comment: Speci men Type: BLOOD SPECIMENOrdering Facility: [facility] Address: [address] [place] [address] Performed By: #### 2 4323-8 ####[facility] LABCLIA [id number] [place] [address] [place] AST [Catalytic activity/Vol] 105 U/L High 14-40 [facility] Comment on above: Order Comment: Speci men Type: BLOOD SPECIMENOrdering Facility: [facility] Address: [address] [place] [address] Performed By: #### 2 4323-8 ####[facility] LABCLIA [id number] [place] [address] [place] Bilirubin [Mass/Vol] 0.3 mg/dL Normal 0.2-1.3 [facility] Comment on above: Order Comment: Speci men Type: BLOOD SPECIMENOrdering Facility: [facility] Address: [address] [place], [place] [address] Performed By: #### 2 4323-8 ####[facility] LABCLIA [id number] [place] [address] [place] Calcium [Mass/Vol] 8.7 mg/dL Normal 8.5-10.2 [facility] Comment on above: Order Comment: Speci men Type: BLOOD SPECIMENOrdering Facility: [facility] Address: [address] [place], [place] [address] Performed By: #### 2 4323-8 ####[facility] LABCLIA [id number] [place] [address] [place] Chloride [Moles/Vol] 98 mmol/L Normal 97-105 [facility] Comment on above: Order Comment: Speci men Type: BLOOD SPECIMENOrdering Facility: [facility] Address: [address] [place] [address] Performed By: #### 2 4323-8 ####[facility] LABCLIA [id number] [place] [address] [place] CO2 [Moles/Vol] 25 mmol/L Normal 22-30 [facility] Comment on above: Order Comment: Speci men Type: BLOOD SPECIMENOrdering Facility: [facility] Address: [address] [place] [address] Performed By: #### 2 4323-8 ####[facility] LABIA [id number] [address] OF [facility] Creatinine [Mass/Vol] 0.84 mg/dL Normal 0.73-1.22 [facility] Comment on above: Order Comment: Speci men Type: BLOOD SPECIMENOrdering Facility: [facility] Address: [address] [place] [address] Performed By: #### 2 4323-8 ####[facility] LABIA [id number] [address] ESTIMATED GLOMERULAR FILTRATION RATE 100 mL/min/1.73m??? Normal >=60 [facility] Comment on above: Order Comment: Speci men Type: BLOOD SPECIMENOrdering Facility: [facility] Address: [address] [place] [address] Result Comment: Veronica mated Glomerular Filtration Rate [...] actual GFR. Performed By: #### 2 4323-8 ####[facility] LABCLIA [id number] [place] [address] [place] Glucose [Mass/Vol] 120 mg/dL High 74-99 [facility] Comment on above: Order Comment: Speci men Type: BLOOD SPECIMENOrdering Facility: [facility] Address: [address] [place] [address] Result Comment: The [place] [employer] (ADA) provides guidance for cutoff [...] Standards of Medical Care in Diabetes 2016, [place] [employer]. Diabetes Care. 2016.39(Suppl 1). Performed By: #### 2 4323-8 ####[facility] LABCLIA [id number] [place] [address] [place] Potassium [Moles/Vol] 4.9 mmol/L Normal 3.7-5.1 [facility] Comment on above: Order Comment: Speci men Type: BLOOD SPECIMENOrdering Facility: [facility] Address: [address] [place] [address] Performed By: #### 2 4323-8 ####[facility] LABCLIA [id number] [place] [address] [place] Protein [Mass/Vol] 7.2 g/dL Normal 6.3-8.0 [facility] Comment on above: Order Comment: Speci men Type: BLOOD SPECIMENOrdering Facility: [facility] Address: [address] [place] [address] Performed By: #### 2 4323-8 ####[facility] LABCLIA [id number] [place] [address] [place] Sodium [Moles/Vol] 132 mmol/L Low 136-144 [facility] Comment on above: Order Comment: Speci men Type: BLOOD SPECIMENOrdering Facility: [facility] Address: [address] [place] [address] Performed By: #### 2 4323-8 ####[facility] LABCLIA [id number] [place] [address] [place] Urea nitrogen [Mass/Vol] 22 mg/dL Normal 9-24 [facility] Comment on above: Order Comment: Speci men Type: BLOOD SPECIMENOrdering Facility: [facility] Address: [address] [place] [address] Performed By: #### 2 4323-8 ####[facility] LABCLIA [id number] [place] [address] [place] CBC W Auto Differential pane l (Bld)on 02-05-2023 Basophils (Bld) [#/Vol] 0.15 10*3/uL High <0.11 [facility] Comment on above: Order Comment: Speci men Type: BLOOD SPECIMENOrdering Facility: [facility] Address: [address] [place], [place] [address] Performed By: #### 5 7021-8 ####[facility] LABCLIA [id number] [place] [address] [place] Basophils/100 WBC (Bld) 1.6 % Normal [facility] Comment on above: Order Comment: Speci men Type: BLOOD SPECIMENOrdering Facility: [facility] Address: [address] [place], [place] [address] Performed By: #### 5 7021-8 ####[facility] LABCLIA [id number] [place] [address] [place] Differential cell count method Nom (Bld) Auto Normal [facility] Comment on above: Order Comment: Speci men Type: BLOOD SPECIMENOrdering Facility: [facility] Address: [address] [address] Performed By: #### 5 7021-8 ####[facility] LABCLIA [id number] [place] [address] [facility] Eosinophils (Bld) [#/Vol] 0.12 10*3/uL Normal <0.46 [facility] Comment on above: Order Comment: Speci men Type: BLOOD SPECIMENOrdering Facility: [facility] Address: [address] [place] [place] [address] Performed By: #### 5 7021-8 ####[facility] LABCLIA [id number] [address] [place] Eosinophils/100 WBC (Bld) 1.3 % Normal [facility] Comment on above: Order Comment: Speci men Type: BLOOD SPECIMENOrdering Facility: [facility] Address: [address] [place] [address] Performed By: #### 5 7021-8 ####[facility] LABIA [id number] [place] [address] [place] Erythrocyte distribution width (RBC) [Ratio] 15.9 % High 11.5-15.0 [facility] Comment on above: Order Comment: Speci men Type: BLOOD SPECIMENOrdering Facility: [facility] Address: [address] [place], [place] [address] Performed By: #### 5 7021-8 ####[facility] LABCLIA [id number] [address] [place] Hematocrit (Bld) [Volume fraction] 24.2 % Low 39.0-51.0 [facility] Comment on above: Order Comment: Speci men Type: BLOOD SPECIMENOrdering Facility: [facility] Address: [address] [place] [address] Performed By: #### 5 7021-8 ####[facility] LABCLIA [id number] [place] [address] [place] Hemoglobin (Bld) [Mass/Vol] 7.4 g/dL Low 13.0-17.0 [facility] Comment on above: Order Comment: Speci men Type: BLOOD SPECIMENOrdering Facility: [facility] Address: [address] [place] [address] Performed By: #### 5 7021-8 ####[facility] LABCLIA [id number] [place] [address] [place] Immature granulocytes (Bld) [#/Vol] 0.13 10*3/uL High <0.10 [facility] Comment on above: Order Comment: Speci men Type: BLOOD SPECIMENOrdering Facility: [facility] Address: [address] [place] [address] Performed By: #### 5 7021-8 ####[facility] LABCLIA [id number] [place] [address] [place] Immature granulocytes/100 WBC (Bld) 1.4 % Normal [facility] Comment on above: Order Comment: Speci men Type: BLOOD SPECIMENOrdering Facility: [facility] Address: [address] [place] [address] Performed By: #### 5 7021-8 ####[facility] LABCLIA [id number] [place] [address] [place] Lymphocytes (Bld) [#/Vol] 1.94 10*3/uL Normal 1.00-4.00 [facility] Comment on above: Order Comment: Speci men Type: BLOOD SPECIMENOrdering Facility: [facility] Address: [address] [place], [place] [address] Performed By: #### 5 7021-8 ####[facility] LABCLIA [id number] [place] [address] [place] Lymphocytes/100 WBC (Bld) 20.4 % Normal [facility] Comment on above: Order Comment: Speci men Type: BLOOD SPECIMENOrdering Facility: [facility] Address: [address] [place] [place] [address] Performed By: #### 5 7021-8 ####[facility] LABIA [id number] [address] STATES OF [facility] MCH (RBC) [Entitic mass] 26.6 pg Normal 26.0-34.0 [facility] Comment on above: Order Comment: Speci men Type: BLOOD SPECIMENOrdering Facility: [facility] Address: [address] [place] [place] [address] Performed By: #### 5 7021-8 ####[facility] LABIA [id number] [address] [place] MCHC (RBC) [Mass/Vol] 30.6 g/dL Normal 30.5-36.0 [facility] Comment on above: Order Comment: Speci men Type: BLOOD SPECIMENOrdering Facility: [facility] Address: [address] [place] [address] Performed By: #### 5 7021-8 ####[facility] LABIA [id number] [place] [address] [place] MCV (RBC) [Entitic vol] 87.1 fL Normal 80.0-100.0 [facility] Comment on above: Order Comment: Speci men Type: BLOOD SPECIMENOrdering Facility: [facility] Address: [address] Performed By: #### 5 7021-8 ####[facility] LABIA [id number] [place] [address] [place] Monocytes (Bld) [#/Vol] 0.66 10*3/uL Normal <0.87 [facility] Comment on above: Order Comment: Speci men Type: BLOOD SPECIMENOrdering Facility: [facility] Address: [address] [place], [place] [address] Performed By: #### 5 7021-8 ####[facility] LABCLIA [id number] [place] [address] [place] Monocytes/100 WBC (Bld) 6.9 % Normal [facility] Comment on above: Order Comment: Speci men Type: BLOOD SPECIMENOrdering Facility: [facility] Address: [address] Performed By: #### 5 7021-8 ####[facility] LABCLIA [id number] [place] [address] [place] Neutrophils (Bld) [#/Vol] 6.50 10*3/uL Normal 1.45-7.50 [facility] Comment on above: Order Comment: Speci men Type: BLOOD SPECIMENOrdering Facility: [facility] Address: [address] Performed By: #### 5 7021-8 ####[facility] LABIA [id number] [place] [address] [place] Neutrophils/100 WBC (Bld) 68.4 % Normal [facility] Comment on above: Order Comment: Speci men Type: BLOOD SPECIMENOrdering Facility: [facility] Address: [address] [place] [address] Performed By: #### 5 7021-8 ####[facility] LABIA [id number] [place] [address] [place] Nucleated RBC (Bld) [#/Vol] 10*3/uL Normal <0.01 [facility] Comment on above: Order Comment: Speci men Type: BLOOD SPECIMENOrdering Facility: [facility] Address: [address] [place] [address] Performed By: #### 5 7021-8 ####[facility] LABCLIA [id number] [place] [address] [place] Nucleated RBC/100 WBC (Bld) [Ratio] 0.0 /100 WBC Normal [facility] Comment on above: Order Comment: Speci men Type: BLOOD SPECIMENOrdering Facility: [facility] Address: [address] [place], [place] [address] Performed By: #### 5 7021-8 ####[facility] LABCLIA [id number] [place] [address] [place] Platelet mean volume (Bld) [Entitic vol] 9.7 fL Normal 9.0-12.7 [facility] Comment on above: Order Comment: Speci men Type: BLOOD SPECIMENOrdering Facility: [facility] Address: [address] [place], [place] [address] Performed By: #### 5 7021-8 ####[facility] LABCLIA [id number] [place] [address] [place] Platelets (Bld) [#/Vol] 576 10*3/uL High 150-400 [facility] Comment on above: Order Comment: Speci men Type: BLOOD SPECIMENOrdering Facility: [facility] Address: [address] [place], [place] [address] Performed By: #### 5 7021-8 ####[facility] LABCLIA [id number] [place] [address] [place] RBC (Bld) [#/Vol] 2.78 10*6/uL Low 4.20-6.00 [facility] Comment on above: Order Comment: Speci men Type: BLOOD SPECIMENOrdering Facility: [facility] Address: [address] [place], [place] [address] Performed By: #### 5 7021-8 ####[facility] LABCLIA [id number] [place] [address] [place] WBC (Bld) [#/Vol] 9.50 10*3/uL Normal 3.70-11.00 [facility] Comment on above: Order Comment: Speci men Type: BLOOD SPECIMENOrdering Facility: [facility] Address: [address] Performed By: #### 5 7021-8 ####[facility] LABCLIA [id number] [place] [address] [place] CONSULT PROGon 02-05-2023 CONSULT PROG Normal [facility] metabolic 2000 panelon 02-05-2023 Albumin [Mass/Vol] 3.4 g/dL Low 3.9-4.9 [facility] Comment on above: Order Comment: Speci men Type: BLOOD SPECIMENOrdering Facility: [facility] Address: [address] Performed By: #### 2 4323-8 ####[facility] LABCLIA [id number] [place] [address] [place] ALP [Catalytic activity/Vol] 127 U/L High 38-113 [facility] Comment on above: Order Comment: Speci men Type: BLOOD SPECIMENOrdering Facility: [facility] Address: [address] Performed By: #### 2 4323-8 ####[facility] LABCLIA [id number] [place] [address] [place] ALT [Catalytic activity/Vol] 156 U/L High 10-54 [facility] Comment on above: Order Comment: Speci men Type: BLOOD SPECIMENOrdering Facility: [facility] Address: [address] Performed By: #### 2 4323-8 ####[facility] LABCLIA [id number] [place] [address] [place] Anion gap [Moles/Vol] 8 mmol/L Low 9-18 [facility] Comment on above: Order Comment: Speci men Type: BLOOD SPECIMENOrdering Facility: [facility] Address: [address] Performed By: #### 2 4323-8 ####[facility] LABCLIA [id number] [place] [address] [place] AST [Catalytic activity/Vol] 114 U/L High 14-40 [facility] Comment on above: Order Comment: Speci men Type: BLOOD SPECIMENOrdering Facility: [facility] Address: [address] [place] [address] Performed By: #### 2 4323-8 ####[facility] LABCLIA [id number] [place] [address] [place] Bilirubin [Mass/Vol] 0.2 mg/dL Normal 0.2-1.3 [facility] Comment on above: Order Comment: Speci men Type: BLOOD SPECIMENOrdering Facility: [facility] Address: [address] [place] [address] Performed By: #### 2 4323-8 ####[facility] LABCLIA [id number] [place] [address] [place] Calcium [Mass/Vol] 8.4 mg/dL Low 8.5-10.2 [facility] Comment on above: Order Comment: Speci men Type: BLOOD SPECIMENOrdering Facility: [facility] Address: [address] [place] [address] Performed By: #### 2 4323-8 ####[facility] LABCLIA [id number] [place] [address] [place] Chloride [Moles/Vol] 104 mmol/L Normal 97-105 [facility] Comment on above: Order Comment: Speci men Type: BLOOD SPECIMENOrdering Facility: [facility] Address: [address] [place], [place] [address] Performed By: #### 2 4323-8 ####[facility] LABCLIA [id number] [place] [address] [place] CO2 [Moles/Vol] 25 mmol/L Normal 22-30 [facility] Comment on above: Order Comment: Speci men Type: BLOOD SPECIMENOrdering Facility: [facility] Address: [address] [place] [address] Performed By: #### 2 4323-8 ####[facility] LABCLIA [id number] [place] [address] [place] Creatinine [Mass/Vol] 0.83 mg/dL Normal 0.73-1.22 [facility] Comment on above: Order Comment: Speci men Type: BLOOD SPECIMENOrdering Facility: [facility] Address: [address] [place] [place] [address] Performed By: #### 2 4323-8 ####[facility] LABIA [id number] [place] [address] [place] ESTIMATED GLOMERULAR FILTRATION RATE 101 mL/min/1.73m??? Normal >=60 [facility] Comment on above: Order Comment: Speci men Type: BLOOD SPECIMENOrdering Facility: [facility] Address: [address] [place] [address] Result Comment: Vernoica mated Glomerular Filtration Rate (eGFR) is calculated [...] actual GFR. Performed By: #### 2 4323-8 ####[facility] LABIA [id number] [place] [address] [place] Glucose [Mass/Vol] 101 mg/dL High 74-99 [facility] Comment on above: Order Comment: Speci men Type: BLOOD SPECIMENOrdering Facility: [facility] Address: [address] [place] [place] [address] Result Comment: The [place] [employer] (ADA) provides guidance for cutoff [...] Standards of Medical Care in Diabetes 2016, [place] [employer]. Diabetes Care. 2016.39(Suppl 1). Performed By: #### 2 4323-8 ####[facility] LABCLIA [id number] [place] [address] [place] Potassium [Moles/Vol] 5.0 mmol/L Normal 3.7-5.1 [facility] Comment on above: Order Comment: Speci men Type: BLOOD SPECIMENOrdering Facility: [facility] Address: [address] [place] [place] [address] Performed By: #### 2 4323-8 ####[facility] LABIA [id number] [place] [address] [place] Protein [Mass/Vol] 7.0 g/dL Normal 6.3-8.0 [facility] Comment on above: Order Comment: Speci men Type: BLOOD SPECIMENOrdering Facility: [facility] Address: [address] [place] [place] [address] Performed By: #### 2 4323-8 ####[facility] LABCLIA [id number] [place] [address] [place] Sodium [Moles/Vol] 137 mmol/L Normal 136-144 [facility] Comment on above: Order Comment: Speci men Type: BLOOD SPECIMENOrdering Facility: [facility] Address: [address] Performed By: #### 2 4323-8 ####[facility] LABCLIA [id number] [place] [address] [place] Urea nitrogen [Mass/Vol] 22 mg/dL Normal 9-24 [facility] Comment on above: Order Comment: Speci men Type: BLOOD SPECIMENOrdering Facility: [facility] Address: [address] [place] [address] Performed By: #### 2 4323-8 ####[facility] LABCLIA [id number] [address] [place] TYPE + SCREENon 02-05-2023 ABO A Normal [facility] Comment on above: Order Comment: Speci men Type: BLOOD SPECIMENOrdering Facility: [facility] Address: [address] [place] [address] Performed By: #### T SCR ####[facility] BLOOD BANKCLIA [id number] [address] [place] HISTORICAL AB SCR STATUS Negative Normal [facility] Comment on above: Order Comment: Speci men Type: BLOOD SPECIMENOrdering Facility: [facility] Address: [address] [place] [address] Performed By: #### T SCR ####[facility] BLOOD BANKCLIA [id number] [address] [place] Rh Nom (Bld) Positive Normal [facility] Comment on above: Order Comment: Speci men Type: BLOOD SPECIMENOrdering Facility: [facility] Address: [address] [place], [place] [address] Performed By: #### T SCR ####[facility] BLOOD BANKCLIA [id number] [place] [address] [place] TYPE AND SCREEN EXPIRATION 02/08/2023 23:59 Normal [facility] Comment on above: Order Comment: Speci men Type: BLOOD SPECIMENOrdering Facility: [facility] Address: [address] [place] [address] Performed By: #### T SCR ####[facility] BLOOD BANKCLIA [id number] [place] [address] [place] Basic metabolic 2000 panelon 02-04-2023 Anion gap [Moles/Vol] 9 mmol/L Normal 9-18 [facility] Comment on above: Order Comment: Speci men Type: BLOOD SPECIMENOrdering Facility: [facility] Address: [address] [place] [address] Performed By: #### 2 4321-2 ####[facility] LABCLIA [id number] [place] [address] [place] Calcium [Mass/Vol] 8.4 mg/dL Low 8.5-10.2 [facility] Comment on above: Order Comment: Speci men Type: BLOOD SPECIMENOrdering Facility: [facility] Address: [address] [place] [address] Performed By: #### 2 4321-2 ####[facility] LABCLIA [id number] [place] [address] [place] Chloride [Moles/Vol] 104 mmol/L Normal 97-105 [facility] Comment on above: Order Comment: Speci men Type: BLOOD SPECIMENOrdering Facility: [facility] Address: [address] [place], [place] [address] Performed By: #### 2 4321-2 ####[facility] LABCLIA [id number] [place] [address] [place] CO2 [Moles/Vol] 25 mmol/L Normal 22-30 [facility] Comment on above: Order Comment: Speci men Type: BLOOD SPECIMENOrdering Facility: [facility] Address: [address] [place], [place] [address] Performed By: #### 2 4321-2 ####[facility] LABCLIA [id number] [place] [address] [place] Creatinine [Mass/Vol] 0.80 mg/dL Normal 0.73-1.22 [facility] Comment on above: Order Comment: Cecilymariela valerie Type: BLOOD SPECIMENOrdering Facility: [facility] Address: [address] [place] [place] [address] Performed By: #### 2 4321-2 ####[facility] LABCLIA [id number] [place] [address] [place] ESTIMATED GLOMERULAR FILTRATION RATE 102 mL/min/1.73m??? Normal >=60 [facility] Comment on above: Order Comment: Alden men Type: BLOOD SPECIMENOrdering Facility: [facility] Address: [address] [place] [place] [address] Result Comment: Veronica mated Glomerular Filtration Rate [...] actual GFR. Performed By: #### 2 4321-2 ####[facility] LABCLIA [id number] [place] [address] [place] Glucose [Mass/Vol] 121 mg/dL High 74-99 [facility] Comment on above: Order Comment: Alden padilla Type: BLOOD SPECIMENOrdering Facility: [facility] Address: [address] [place] [place] [address] Result Comment: The [place] [employer] (ADA) provides guidance for cutoff [...] Standards of Medical Care in Diabetes 2016, [place] [employer]. Diabetes Care. 2016.39(Suppl 1). Performed By: #### 2 4321-2 ####[facility] LABCLIA [id number] [place] [address] [place] Potassium [Moles/Vol] 4.7 mmol/L Normal 3.7-5.1 [facility] Comment on above: Order Comment: Speci men Type: BLOOD SPECIMENOrdering Facility: [facility] Address: [address] [place] [address] Performed By: #### 2 4321-2 ####[facility] LABCLIA [id number] [place] [address] [place] Sodium [Moles/Vol] 138 mmol/L Normal 136-144 [facility] Comment on above: Order Comment: Speci men Type: BLOOD SPECIMENOrdering Facility: [facility] Address: [address] [place] [address] Performed By: #### 2 4321-2 ####[facility] LABCLIA [id number] [place] [address] [place] Urea nitrogen [Mass/Vol] 17 mg/dL Normal 9-24 [facility] Comment on above: Order Comment: Speci men Type: BLOOD SPECIMENOrdering Facility: [facility] Address: [address] [place] [address] Performed By: #### 2 4321-2 ####[facility] LABCLIA [id number] [place] [address] [place] CASE MANAGEMon 02-04-2023 CASE MANAGEM Normal [facility] CBC W Auto Differential pane l (Bld)on 02-04-2023 Basophils (Bld) [#/Vol] 0.03 10*3/uL Normal <0.11 [facility] Comment on above: Order Comment: Speci men Type: BLOOD SPECIMENOrdering Facility: [facility] Address: [address] [place] [address] Performed By: #### 5 7021-8 ####[facility] LABCLIA [id number] [place] [address] [place] Basophils/100 WBC (Bld) 0.3 % Normal [facility] Comment on above: Order Comment: Speci men Type: BLOOD SPECIMENOrdering Facility: [facility] Address: [address] [place] [address] Performed By: #### 5 7021-8 ####[facility] LABCLIA [id number] [place] [address] [place] Differential cell count method Nom (Bld) Auto Normal [facility] Comment on above: Order Comment: Speci men Type: BLOOD SPECIMENOrdering Facility: [facility] Address: [address] [place] [address] Performed By: #### 5 7021-8 ####[facility] LABCLIA [id number] [place] [address] [place] Eosinophils (Bld) [#/Vol] 10*3/uL Normal <0.46 [facility] Comment on above: Order Comment: Speci men Type: BLOOD SPECIMENOrdering Facility: [facility] Address: [address] [place], [place] [address] Performed By: #### 5 7021-8 ####[facility] LABCLIA [id number] [address] [place] Eosinophils/100 WBC (Bld) 0.1 % Normal [facility] Comment on above: Order Comment: Speci men Type: BLOOD SPECIMENOrdering Facility: [facility] Address: [address] [place], [place] [address] Performed By: #### 5 7021-8 ####[facility] LABCLIA [id number] [place] [address] [place] Erythrocyte distribution width (RBC) [Ratio] 15.8 % High 11.5-15.0 [facility] Comment on above: Order Comment: Speci men Type: BLOOD SPECIMENOrdering Facility: [facility] Address: [address] Performed By: #### 5 7021-8 ####[facility] LABCLIA [id number] [address] [place] Hematocrit (Bld) [Volume fraction] 22.9 % Low 39.0-51.0 [facility] Comment on above: Order Comment: Speci men Type: BLOOD SPECIMENOrdering Facility: [facility] Address: [address] Performed By: #### 5 7021-8 ####[facility] LABCLIA [id number] [place] [address] [place] Hemoglobin (Bld) [Mass/Vol] 7.3 g/dL Low 13.0-17.0 [facility] Comment on above: Order Comment: Speci men Type: BLOOD SPECIMENOrdering Facility: [facility] Address: [address] [place], [place] [address] Performed By: #### 5 7021-8 ####[facility] LABCLIA [id number] [place] [address] [place] Immature granulocytes (Bld) [#/Vol] 0.09 10*3/uL Normal <0.10 [facility] Comment on above: Order Comment: Speci men Type: BLOOD SPECIMENOrdering Facility: [facility] Address: [address] [place], [place] [address] Performed By: #### 5 7021-8 ####[facility] LABCLIA [id number] [address] [place] Immature granulocytes/100 WBC (Bld) 0.9 % Normal [facility] Comment on above: Order Comment: Speci men Type: BLOOD SPECIMENOrdering Facility: [facility] Address: [address] Performed By: #### 5 7021-8 ####[facility] LABCLIA [id number] [place] [address] [place] Lymphocytes (Bld) [#/Vol] 0.80 10*3/uL Low 1.00-4.00 [facility] Comment on above: Order Comment: Speci men Type: BLOOD SPECIMENOrdering Facility: [facility] Address: [address] [place] [address] Performed By: #### 5 7021-8 ####[facility] LABCLIA [id number] [address] [place] Lymphocytes/100 WBC (Bld) 7.7 % Normal [facility] Comment on above: Order Comment: Speci men Type: BLOOD SPECIMENOrdering Facility: [facility] Address: [address] [place] [address] Performed By: #### 5 7021-8 ####[facility] LABIA [id number] [address] [place] MCH (RBC) [Entitic mass] 27.4 pg Normal 26.0-34.0 [facility] Comment on above: Order Comment: Speci men Type: BLOOD SPECIMENOrdering Facility: [facility] Address: [address] [place] [address] Performed By: #### 5 7021-8 ####[facility] LABIA [id number] [place] [address] [place] MCHC (RBC) [Mass/Vol] 31.9 g/dL Normal 30.5-36.0 [facility] Comment on above: Order Comment: Speci men Type: BLOOD SPECIMENOrdering Facility: [facility] Address: [address] [place], [place] [address] Performed By: #### 5 7021-8 ####[facility] LABIA [id number] [address] [place] MCV (RBC) [Entitic vol] 86.1 fL Normal 80.0-100.0 [facility] Comment on above: Order Comment: Speci men Type: BLOOD SPECIMENOrdering Facility: [facility] Address: [address] [place], [place] [address] Performed By: #### 5 7021-8 ####[facility] LABCLIA [id number] [place] [address] [place] Monocytes (Bld) [#/Vol] 0.25 10*3/uL Normal <0.87 [facility] Comment on above: Order Comment: Speci men Type: BLOOD SPECIMENOrdering Facility: [facility] Address: [address] [place], [place] [address] Performed By: #### 5 7021-8 ####[facility] LABCLIA [id number] [place] [address] [place] Monocytes/100 WBC (Bld) 2.4 % Normal [facility] Comment on above: Order Comment: Speci men Type: BLOOD SPECIMENOrdering Facility: [facility] Address: [address] [place], [place] [address] Performed By: #### 5 7021-8 ####[facility] LABCLIA [id number] [place] [address] [place] Neutrophils (Bld) [#/Vol] 9.18 10*3/uL High 1.45-7.50 [facility] Comment on above: Order Comment: Speci men Type: BLOOD SPECIMENOrdering Facility: [facility] Address: [address] Performed By: #### 5 7021-8 ####[facility] LABCLIA [id number] [place] [address] [place] Neutrophils/100 WBC (Bld) 88.6 % Normal [facility] Comment on above: Order Comment: Speci men Type: BLOOD SPECIMENOrdering Facility: [facility] Address: [address] [place], [place] [address] Performed By: #### 5 7021-8 ####[facility] LABCLIA [id number] [place] [address] [place] Nucleated RBC (Bld) [#/Vol] 10*3/uL Normal <0.01 [facility] Comment on above: Order Comment: Speci men Type: BLOOD SPECIMENOrdering Facility: [facility] Address: [address] [place], [place] [address] Performed By: #### 5 7021-8 ####[facility] LABIA [id number] [place] [address] [place] Nucleated RBC/100 WBC (Bld) [Ratio] 0.0 /100 WBC Normal [facility] Comment on above: Order Comment: Speci men Type: BLOOD SPECIMENOrdering Facility: [facility] Address: [address] [place], [place] [address] Performed By: #### 5 7021-8 ####[facility] LABIA [id number] [place] [address] [place] Platelet mean volume (Bld) [Entitic vol] 10.0 fL Normal 9.0-12.7 [facility] Comment on above: Order Comment: Speci men Type: BLOOD SPECIMENOrdering Facility: [facility] Address: [address] [place] [address] Performed By: #### 5 7021-8 ####[facility] LABIA [id number] [place] [address] [place] Platelets (Bld) [#/Vol] 510 10*3/uL High 150-400 [facility] Comment on above: Order Comment: Speci men Type: BLOOD SPECIMENOrdering Facility: [facility] Address: [address] [place] [address] Performed By: #### 5 7021-8 ####[facility] LABIA [id number] [place] [address] [place] RBC (Bld) [#/Vol] 2.66 10*6/uL Low 4.20-6.00 [facility] Comment on above: Order Comment: Speci men Type: BLOOD SPECIMENOrdering Facility: [facility] Address: [address] [place] [address] Performed By: #### 5 7021-8 ####[facility] LABCLIA [id number] [place] [address] [place] WBC (Bld) [#/Vol] 10.36 10*3/uL Normal 3.70-11.00 [facility] Comment on above: Order Comment: Speci men Type: BLOOD SPECIMENOrdering Facility: [facility] Address: [address] [place] [address] Performed By: #### 5 7021-8 ####[facility] LABCLIA [id number] [place] [address] [place] [facility] CBC panel Auto (Bld)on 02-04 Erythrocyte distribution width (RBC) [Ratio] 15.9 % High 11.5-15.0 [facility] Comment on above: Order Comment: Speci men Type: BLOOD SPECIMENOrdering Facility: [facility] Address: [address] [place], [place] [address] Performed By: #### 5 8410-2 ####[facility] LABCLIA [id number] [place] [address] [place] [facility] Hematocrit (Bld) [Volume fraction] 22.7 % Low 39.0-51.0 [facility] Comment on above: Order Comment: Speci men Type: BLOOD SPECIMENOrdering Facility: [facility] Address: [address] [place], [place] [address] Performed By: #### 5 8410-2 ####[facility] LABCLIA [id number] [place] [address] [place] Hemoglobin (Bld) [Mass/Vol] 7.2 g/dL Low 13.0-17.0 [facility] Comment on above: Order Comment: Speci men Type: BLOOD SPECIMENOrdering Facility: [facility] Address: [address] [place], [place] [address] Performed By: #### 5 8410-2 ####[facility] LABIA [id number] [address] MCH (RBC) [Entitic mass] 27.4 pg Normal 26.0-34.0 [facility] Comment on above: Order Comment: Speci men Type: BLOOD SPECIMENOrdering Facility: [facility] Address: [address] [place], [place] [address] Performed By: #### 5 8410-2 ####[facility] LABIA [id number] [address] [place] MCHC (RBC) [Mass/Vol] 31.7 g/dL Normal 30.5-36.0 [facility] Comment on above: Order Comment: Speci men Type: BLOOD SPECIMENOrdering Facility: [facility] Address: [address] [place], [place] [address] Performed By: #### 5 8410-2 ####[facility] LABIA [id number] [address] [place] MCV (RBC) [Entitic vol] 86.3 fL Normal 80.0-100.0 [facility] Comment on above: Order Comment: Speci men Type: BLOOD SPECIMENOrdering Facility: [facility] Address: [address] [place], [place] [address] Performed By: #### 5 8410-2 ####[facility] LABIA [id number] [address] [place] Nucleated RBC (Bld) [#/Vol] 10*3/uL Normal <0.01 [facility] Comment on above: Order Comment: Speci men Type: BLOOD SPECIMENOrdering Facility: [facility] Address: [address] Performed By: #### 5 8410-2 ####[facility] LABIA [id number] [place] [address] [place] Platelet mean volume (Bld) [Entitic vol] 10.1 fL Normal 9.0-12.7 [facility] Comment on above: Order Comment: Speci men Type: BLOOD SPECIMENOrdering Facility: [facility] Address: [address] Performed By: #### 5 8410-2 ####[facility]IA [id number] [place] [address] [place] Platelets (Bld) [#/Vol] 542 10*3/uL High 150-400 [facility] Comment on above: Order Comment: Speci men Type: BLOOD SPECIMENOrdering Facility: [facility] Address: [address] Performed By: #### 5 8410-2 ####[facility] [id number] [place] [address] [place] RBC (Bld) [#/Vol] 2.63 10*6/uL Low 4.20-6.00 [facility] Comment on above: Order Comment: Speci men Type: BLOOD SPECIMENOrdering Facility: [facility] Address: [address] [place] [address] Performed By: #### 5 8410-2 ####[facility]IA [id number] [place] [address] [place] WBC (Bld) [#/Vol] 10.03 10*3/uL Normal 3.70-11.00 [facility] Comment on above: Order Comment: Speci men Type: BLOOD SPECIMENOrdering Facility: [facility] Address: [address] [place], [place] [address] Performed By: #### 5 8410-2 ####[facility] LABCLIA [id number] [place] [address] [place] CNPNon 02-04-2023 CNPN Normal [facility] CONSULTon 02-04-2023 CONSULT Normal [facility] CONSULT PROGon 02-04-2023 CONSULT PROG Normal [facility] CONSULT PROG Normal [facility] Comprehensive metabolic 2000 panelon 02-04-2023 Albumin [Mass/Vol] 3.1 g/dL Low 3.9-4.9 [facility] Comment on above: Order Comment: Speci men Type: BLOOD SPECIMENOrdering Facility: [facility] Address: [address] [place] [address] Performed By: #### 2 4323-8 ####[facility] LABCLIA [id number] [place] [address] [place] ALP [Catalytic activity/Vol] 134 U/L High 38-113 [facility] Comment on above: Order Comment: Speci men Type: BLOOD SPECIMENOrdering Facility: [facility] Address: [address] [place] [place] [address] Performed By: #### 2 4323-8 ####[facility] LABCLIA [id number] [place] [address] [place] ALT [Catalytic activity/Vol] 130 U/L High 10-54 [facility] Comment on above: Order Comment: Speci men Type: BLOOD SPECIMENOrdering Facility: [facility] Address: [address] Performed By: #### 2 4323-8 ####[facility] LABCLIA [id number] [place] [address] [place] Anion gap [Moles/Vol] 9 mmol/L Normal 9-18 [facility] Comment on above: Order Comment: Speci men Type: BLOOD SPECIMENOrdering Facility: [facility] Address: [address] Performed By: #### 2 4323-8 ####[facility] LABCLIA [id number] [place] [address] [place] AST [Catalytic activity/Vol] 45 U/L High 14-40 [facility] Comment on above: Order Comment: Speci men Type: BLOOD SPECIMENOrdering Facility: [facility] Address: [address] [place], [place] [address] Performed By: #### 2 4323-8 ####[facility] LABCLIA [id number] [place] [address] [place] Bilirubin [Mass/Vol] 0.3 mg/dL Normal 0.2-1.3 [facility] Comment on above: Order Comment: Speci men Type: BLOOD SPECIMENOrdering Facility: [facility] Address: [address] [place], [place] [address] Performed By: #### 2 4323-8 ####[facility]IA [id number] [place] [address] [place] Calcium [Mass/Vol] 8.4 mg/dL Low 8.5-10.2 [facility] Comment on above: Order Comment: Speci men Type: BLOOD SPECIMENOrdering Facility: [facility] Address: [address] [place], [place] [address] Performed By: #### 2 4323-8 ####[facility] LABCLIA [id number] [place] [address] [place] Chloride [Moles/Vol] 103 mmol/L Normal 97-105 [facility] Comment on above: Order Comment: Speci men Type: BLOOD SPECIMENOrdering Facility: [facility] Address: [address] [place], [place] [address] Performed By: #### 2 4323-8 ####[facility] LABCLIA [id number] [place] [address] [place] CO2 [Moles/Vol] 23 mmol/L Normal 22-30 [facility] Comment on above: Order Comment: Speci men Type: BLOOD SPECIMENOrdering Facility: [facility] Address: [address] [place] [place] [address] Performed By: #### 2 4323-8 ####[facility] LABCLIA [id number] [place] [address] [place] Creatinine [Mass/Vol] 0.85 mg/dL Normal 0.73-1.22 [facility] Comment on above: Order Comment: Speci men Type: BLOOD SPECIMENOrdering Facility: [facility] Address: [address] [place] [place] [address] Performed By: #### 2 4323-8 ####[facility]IA [id number] [place] [address] [place] ESTIMATED GLOMERULAR FILTRATION RATE 100 mL/min/1.73m??? Normal >=60 [facility] Comment on above: Order Comment: Speci men Type: BLOOD SPECIMENOrdering Facility: [facility] Address: [address] [place] [address] Result Comment: Veronica mated Glomerular Filtration Rate [...] actual GFR. Performed By: #### 2 4323-8 ####[facility]IA [id number] [place] [address] [place] Glucose [Mass/Vol] 166 mg/dL High 74-99 [facility] Comment on above: Order Comment: Speci men Type: BLOOD SPECIMENOrdering Facility: [facility] Address: [address] [place] [address] Result Comment: The [place] [employer] (ADA) provides guidance for cutoff [...] Standards of Medical Care in Diabetes 2016, [place] [employer]. Diabetes Care. 2016.39(Suppl 1). Performed By: #### 2 4323-8 ####[facility] LABCLIA [id number] [place] [address] [place] Potassium [Moles/Vol] 5.3 mmol/L High 3.7-5.1 [facility] Comment on above: Order Comment: Speci men Type: BLOOD SPECIMENOrdering Facility: [facility] Address: [address] [address] Performed By: #### 2 4323-8 ####[facility]IA [id number] [place] [address] [place] Protein [Mass/Vol] 6.3 g/dL Normal 6.3-8.0 [facility] Comment on above: Order Comment: Speci men Type: BLOOD SPECIMENOrdering Facility: [facility] Address: [address] [place] [address] Performed By: #### 2 4323-8 ####[facility] LABCLIA [id number] [place] [address] [place] Sodium [Moles/Vol] 135 mmol/L Low 136-144 [facility] Comment on above: Order Comment: Speci men Type: BLOOD SPECIMENOrdering Facility: [facility] Address: [address] [place] [place] [address] Performed By: #### 2 4323-8 ####[facility] LABCLIA [id number] [place] [address] [place] Urea nitrogen [Mass/Vol] 19 mg/dL Normal 9-24 [facility] Comment on above: Order Comment: Speci men Type: BLOOD SPECIMENOrdering Facility: [facility] Address: [place] [address] Performed By: #### 2 4323-8 ####[facility] LABCLIA [id number] [place] [address] [place] NURSING PROGon 02-04-2023 NURSING PROG Normal [facility] THERAPY NTon 02-04-2023 THERAPY NT Normal [facility] ANES POSTPROC EVALon 023 ANES POSTPROC EVAL Normal [facility] ANES PRE-OPon 02-03-2023 ANES PRE-OP Normal [facility] BRIEF OP NOTon 02-03-2023 BRIEF OP NOT Normal [facility] Basic metabolic 2000 panelon 02-03-2023 Anion gap [Moles/Vol] 9 mmol/L Normal 9-18 [facility] Comment on above: Order Comment: Speci men Type: BLOOD SPECIMENOrdering Facility: [facility] Address: [place] [address] Performed By: #### 2 4321-2 ####[facility] LABCLIA [id number] [place] [address] [place] Calcium [Mass/Vol] 8.0 mg/dL Low 8.5-10.2 [facility] Comment on above: Order Comment: Speci men Type: BLOOD SPECIMENOrdering Facility: [facility] Address: [address] [place] [address] Performed By: #### 2 4321-2 ####[facility] LABCLIA [id number] [address] [address] [place] Chloride [Moles/Vol] 100 mmol/L Normal 97-105 [facility] Comment on above: Order Comment: Speci men Type: BLOOD SPECIMENOrdering Facility: [facility] Address: [address] [place] [place] [address] Performed By: #### 2 4321-2 ####[facility] LABCLIA [id number] [place] [address] [place] CO2 [Moles/Vol] 24 mmol/L Normal 22-30 [facility] Comment on above: Order Comment: Speci men Type: BLOOD SPECIMENOrdering Facility: [facility] Address: [address] [place] [place] [address] Performed By: #### 2 4321-2 ####[facility]IA [id number] [place] [address] [place] Creatinine [Mass/Vol] 0.82 mg/dL Normal 0.73-1.22 [facility] Comment on above: Order Comment: Speci men Type: BLOOD SPECIMENOrdering Facility: [facility] Address: [address] [place] [address] Performed By: #### 2 4321-2 ####[facility]IA [id number] [address] [place] ESTIMATED GLOMERULAR FILTRATION RATE 101 mL/min/1.73m??? Normal >=60 [facility] Comment on above: Order Comment: Speci men Type: BLOOD SPECIMENOrdering Facility: [facility] Address: [address] [place] [address] Result Comment: Veronica mated Glomerular Filtration Rate [...] actual GFR. Performed By: #### 2 4321-2 ####[facility] LABCLIA [id number] [place] [address] [place] Glucose [Mass/Vol] 101 mg/dL High 74-99 [facility] Comment on above: Order Comment: Speci men Type: BLOOD SPECIMENOrdering Facility: [facility] Address: [address] [place] [address] Result Comment: The [place] [employer] (ADA) provides guidance for cutoff [...] Standards of Medical Care in Diabetes 2016, [place] [employer]. Diabetes Care. 2016.39(Suppl 1). Performed By: #### 2 4321-2 ####[facility] LABCLIA [id number] [place] [address] [place] Potassium [Moles/Vol] 4.8 mmol/L Normal 3.7-5.1 [facility] Comment on above: Order Comment: Alden padilla Type: BLOOD SPECIMENOrdering Facility: [facility] Address: [address] [place] [address] Performed By: #### 2 4321-2 ####[facility] LABCLIA [id number] [place] [address] [place] Sodium [Moles/Vol] 133 mmol/L Low 136-144 [facility] Comment on above: Order Comment: Cecilyi men Type: BLOOD SPECIMENOrdering Facility: [facility] Address: [address] [place] [address] Performed By: #### 2 4321-2 ####[facility] LABCLIA [id number] [place] [address] [place] Urea nitrogen [Mass/Vol] 16 mg/dL Normal 9-24 [facility] Comment on above: Order Comment: Speci men Type: BLOOD SPECIMENOrdering Facility: [facility] Address: [address] [place] [place] [address] Performed By: #### 2 4321-2 ####[facility] LABCLIA [id number] [place] [address] [place] CBC W Auto Differential pane l (Bld)on 02-03-2023 Basophils (Bld) [#/Vol] 0.19 10*3/uL High <0.11 [facility] Comment on above: Order Comment: Speci men Type: BLOOD SPECIMENOrdering Facility: [facility] Address: [address] [place] [place] [address] Performed By: #### 5 7021-8 ####[facility] LABCLIA [id number] [place] [address] [place] Basophils/100 WBC (Bld) 2.3 % Normal [facility] Comment on above: Order Comment: Speci men Type: BLOOD SPECIMENOrdering Facility: [facility] Address: [address] [place] [place] [address] Performed By: #### 5 7021-8 ####[facility] LABCLIA [id number] [place] [address] [place] Differential cell count method Nom (Bld) Auto Normal [facility] Comment on above: Order Comment: Speci men Type: BLOOD SPECIMENOrdering Facility: [facility] Address: [address] Performed By: #### 5 7021-8 ####[facility] LABCLIA [id number] [place] [address] [place] Eosinophils (Bld) [#/Vol] 0.12 10*3/uL Normal <0.46 [facility] Comment on above: Order Comment: Speci men Type: BLOOD SPECIMENOrdering Facility: [facility] Address: [address] Performed By: #### 5 7021-8 ####[facility] LABCLIA [id number] [place] [address] [place] Eosinophils/100 WBC (Bld) 1.5 % Normal [facility] Comment on above: Order Comment: Speci men Type: BLOOD SPECIMENOrdering Facility: [facility] Address: [address] [place] [address] Performed By: #### 5 7021-8 ####[facility]IA [id number] [place] [address] [place] Erythrocyte distribution width (RBC) [Ratio] 16.0 % High 11.5-15.0 [facility] Comment on above: Order Comment: Speci men Type: BLOOD SPECIMENOrdering Facility: [facility] Address: [address] [place] [address] Performed By: #### 5 7021-8 ####[facility]IA [id number] [place] [address] [place] Hematocrit (Bld) [Volume fraction] 29.7 % Low 39.0-51.0 [facility] Comment on above: Order Comment: Speci men Type: BLOOD SPECIMENOrdering Facility: [facility] Address: [address] [place] [address] Performed By: #### 5 7021-8 ####[facility]IA [id number] [place] [address] [place] Hemoglobin (Bld) [Mass/Vol] 9.0 g/dL Low 13.0-17.0 [facility] Comment on above: Order Comment: Speci men Type: BLOOD SPECIMENOrdering Facility: [facility] Address: [address] [place] [address] Performed By: #### 5 7021-8 ####[facility]IA [id number] [place] [address] [place] Immature granulocytes (Bld) [#/Vol] 0.07 10*3/uL Normal <0.10 [facility] Comment on above: Order Comment: Speci men Type: BLOOD SPECIMENOrdering Facility: [facility] Address: [address] Performed By: #### 5 7021-8 ####[facility]IA [id number] [address] [place] Immature granulocytes/100 WBC (Bld) 0.8 % Normal [facility] Comment on above: Order Comment: Speci men Type: BLOOD SPECIMENOrdering Facility: [facility] Address: [address] Performed By: #### 5 7021-8 ####[facility]IA [id number] [place] [address] [place] Lymphocytes (Bld) [#/Vol] 1.34 10*3/uL Normal 1.00-4.00 [facility] Comment on above: Order Comment: Speci men Type: BLOOD SPECIMENOrdering Facility: [facility] Address: [address] [place], [place] [address] Performed By: #### 5 7021-8 ####[facility]IA [id number] [address] [place] Lymphocytes/100 WBC (Bld) 16.2 % Normal [facility] Comment on above: Order Comment: Speci men Type: BLOOD SPECIMENOrdering Facility: [facility] Address: [address] Performed By: #### 5 7021-8 ####[facility] LABIA [id number] [place] [address] [place] MCH (RBC) [Entitic mass] 27.0 pg Normal 26.0-34.0 [facility] Comment on above: Order Comment: Speci men Type: BLOOD SPECIMENOrdering Facility: [facility] Address: [address] [place], [place] [address] Performed By: #### 5 7021-8 ####[facility] LABCLIA [id number] [place] [address] [place] MCHC (RBC) [Mass/Vol] 30.3 g/dL Low 30.5-36.0 [facility] Comment on above: Order Comment: Speci men Type: BLOOD SPECIMENOrdering Facility: [facility] Address: [address] Performed By: #### 5 7021-8 ####[facility]IA [id number] [place] [address] [place] MCV (RBC) [Entitic vol] 89.2 fL Normal 80.0-100.0 [facility] Comment on above: Order Comment: Speci men Type: BLOOD SPECIMENOrdering Facility: [facility] Address: [address] [place], [place] [address] Performed By: #### 5 7021-8 ####[facility]IA [id number] [place] [address] [place] Monocytes (Bld) [#/Vol] 0.54 10*3/uL Normal <0.87 [facility] Comment on above: Order Comment: Speci men Type: BLOOD SPECIMENOrdering Facility: [facility] Address: [address] Performed By: #### 5 7021-8 ####[facility]IA [id number] [address] [place] Monocytes/100 WBC (Bld) 6.5 % Normal [facility] Comment on above: Order Comment: Speci men Type: BLOOD SPECIMENOrdering Facility: [facility] Address: [address] Performed By: #### 5 7021-8 ####[facility] LABIA [id number] [place] [address] [place] Neutrophils (Bld) [#/Vol] 5.99 10*3/uL Normal 1.45-7.50 [facility] Comment on above: Order Comment: Speci men Type: BLOOD SPECIMENOrdering Facility: [facility] Address: [address] [place] [address] Performed By: #### 5 7021-8 ####[facility] LABCLIA [id number] [place] [address] [place] Neutrophils/100 WBC (Bld) 72.7 % Normal [facility] Comment on above: Order Comment: Speci men Type: BLOOD SPECIMENOrdering Facility: [facility] Address: [address] [place] [address] Performed By: #### 5 7021-8 ####[facility] LABCLIA [id number] [place] [address] [place] Nucleated RBC (Bld) [#/Vol] 10*3/uL Normal <0.01 [facility] Comment on above: Order Comment: Speci men Type: BLOOD SPECIMENOrdering Facility: [facility] Address: [address] [place], [place] [address] Performed By: #### 5 7021-8 ####[facility]IA [id number] [place] [address] [place] Nucleated RBC/100 WBC (Bld) [Ratio] 0.0 /100 WBC Normal [facility] Comment on above: Order Comment: Speci men Type: BLOOD SPECIMENOrdering Facility: [facility] Address: [address] [place], [place] [address] Performed By: #### 5 7021-8 ####[facility] LABCLIA [id number] [place] [address] [place] Platelet mean volume (Bld) [Entitic vol] 9.6 fL Normal 9.0-12.7 [facility] Comment on above: Order Comment: Speci men Type: BLOOD SPECIMENOrdering Facility: [facility] Address: [address] [place] [place] [address] Performed By: #### 5 7021-8 ####[facility]IA [id number] [place] [address] [place] Platelets (Bld) [#/Vol] 560 10*3/uL High 150-400 [facility] Comment on above: Order Comment: Speci men Type: BLOOD SPECIMENOrdering Facility: [facility] Address: [address] Performed By: #### 5 7021-8 ####[facility]IA [id number] [place] [address] [place] RBC (Bld) [#/Vol] 3.33 10*6/uL Low 4.20-6.00 [facility] Comment on above: Order Comment: Speci men Type: BLOOD SPECIMENOrdering Facility: [facility] Address: [address] [place] [address] Performed By: #### 5 7021-8 ####[facility]IA [id number] [place] [address] [place] WBC (Bld) [#/Vol] 8.25 10*3/uL Normal 3.70-11.00 [facility] Comment on above: Order Comment: Speci men Type: BLOOD SPECIMENOrdering Facility: [facility] Address: [address] [place], [place] [address] Performed By: #### 5 7021-8 ####[facility]IA [id number] [place] [address] [place] CONSULT PROGon 02-03-2023 CONSULT PROG Normal [facility] Comprehensive metabolic 2000 panelon 02-03-2023 Albumin [Mass/Vol] 2.4 g/dL Low 3.9-4.9 [facility] Comment on above: Order Comment: Speci men Type: BLOOD SPECIMENOrdering Facility: [facility] Address: [address] Performed By: #### 2 4323-8 ####[facility] LABCLIA [id number] [place] [address] [place] ALP [Catalytic activity/Vol] 153 U/L High 38-113 [facility] Comment on above: Order Comment: Speci men Type: BLOOD SPECIMENOrdering Facility: [facility] Address: [address] Performed By: #### 2 4323-8 ####[facility] LABCLIA [id number] [place] [address] [place] ALT [Catalytic activity/Vol] 221 U/L High 10-54 [facility] Comment on above: Order Comment: Speci men Type: BLOOD SPECIMENOrdering Facility: [facility] Address: [address] Performed By: #### 2 4323-8 ####[facility] LABCLIA [id number] [place] [address] [place] Anion gap [Moles/Vol] 15 mmol/L Normal 9-18 [facility] Comment on above: Order Comment: Speci men Type: BLOOD SPECIMENOrdering Facility: [facility] Address: [address] Performed By: #### 2 4323-8 ####[facility] LABCLIA [id number] [place] [address] [place] AST [Catalytic activity/Vol] 120 U/L High 14-40 [facility] Comment on above: Order Comment: Speci men Type: BLOOD SPECIMENOrdering Facility: [facility] Address: [address] Performed By: #### 2 4323-8 ####[facility] LABCLIA [id number] [place] [id number] [place] Bilirubin [Mass/Vol] 0.2 mg/dL Normal 0.2-1.3 [facility] Comment on above: Order Comment: Speci men Type: BLOOD SPECIMENOrdering Facility: [facility] Address: [address] [place] [address] Performed By: #### 2 4323-8 ####[facility] LABCLIA [id number] [place] [address] [place] Calcium [Mass/Vol] 8.1 mg/dL Low 8.5-10.2 [facility] Comment on above: Order Comment: Speci men Type: BLOOD SPECIMENOrdering Facility: [facility] Address: [address] [place] [address] Performed By: #### 2 4323-8 ####[facility] LABCLIA [id number] [place] [address] [place] Chloride [Moles/Vol] 100 mmol/L Normal 97-105 [facility] Comment on above: Order Comment: Speci men Type: BLOOD SPECIMENOrdering Facility: [facility] Address: [address] [place] [address] Performed By: #### 2 4323-8 ####[facility] LABCLIA [id number] [place] [address] [place] CO2 [Moles/Vol] 17 mmol/L Low 22-30 [facility] Comment on above: Order Comment: Speci men Type: BLOOD SPECIMENOrdering Facility: [facility] Address: [address] [place] [address] Performed By: #### 2 4323-8 ####[facility] LABCLIA [id number] [place] [address] [place] Creatinine [Mass/Vol] 0.88 mg/dL Normal 0.73-1.22 [facility] Comment on above: Order Comment: Speci men Type: BLOOD SPECIMENOrdering Facility: [facility] Address: [address] [address] Performed By: #### 2 4323-8 ####[facility] LABCLIA [id number] [address] ESTIMATED GLOMERULAR FILTRATION RATE 99 mL/min/1.73m??? Normal >=60 [facility] Comment on above: Order Comment: Alden padilla Type: BLOOD SPECIMENOrdering Facility: [facility] Address: [address] [place] [address] Result Comment: Veronica mated Glomerular Filtration Rate [...] actual GFR. Performed By: #### 2 4323-8 ####[facility] LABCLIA [id number] [place] [address] [place] Glucose [Mass/Vol] 104 mg/dL High 74-99 [facility] Comment on above: Order Comment: Alden padilla Type: BLOOD SPECIMENOrdering Facility: [facility] Address: [address] [place] [address] Result Comment: The [place] [employer] (ADA) provides guidance for cutoff [...] Standards of Medical Care in Diabetes 2016, [place] [employer]. Diabetes Care. 2016.39(Suppl 1). Performed By: #### 2 4323-8 ####[facility] LABCLIA [id number] [place] [address] [place] Potassium [Moles/Vol] 5.7 mmol/L High 3.7-5.1 [facility] Comment on above: Order Comment: Speci men Type: BLOOD SPECIMENOrdering Facility: [facility] Address: [address] [place] [address] Performed By: #### 2 4323-8 ####[facility] LABCLIA [id number] [place] [address] [place] Protein [Mass/Vol] 6.2 g/dL Low 6.3-8.0 [facility] Comment on above: Order Comment: Speci men Type: BLOOD SPECIMENOrdering Facility: [facility] Address: [address] [place] [address] Performed By: #### 2 4323-8 ####[facility] LABIA [id number] [place] [address] [place] Sodium [Moles/Vol] 132 mmol/L Low 136-144 [facility] Comment on above: Order Comment: Speci men Type: BLOOD SPECIMENOrdering Facility: [facility] Address: [address] [place], [place] [address] Performed By: #### 2 4323-8 ####[facility] LABIA [id number] [place] [address] [place] Urea nitrogen [Mass/Vol] 18 mg/dL Normal 9-24 [facility] Comment on above: Order Comment: Speci men Type: BLOOD SPECIMENOrdering Facility: [facility] Address: [address] [place], [place] [address] Performed By: #### 2 4323-8 ####[facility] LABIA [id number] [place] [address] [place] NUTRITIONon 02-03-2023 NUTRITION Normal [facility] OPERATIVE NOon 02-03-2023 OPERATIVE NO Normal [facility] PT EDon 02-03-2023 PT ED Normal [facility] VENOUS BLOOD GASES WITH IONI ZED MAGNESIUMon 02-03-2023 BASE DEFICIT, VENOUS -1 mmol/L Normal -2-0 [facility] Comment on above: Order Comment: Speci men Type: VENOUS BLOOD SPECIMENOrdering Facility: [facility] Address: [address] [address] Performed By: #### V ALLMG ####[facility] LABCLIA [id number] [place] [address] [place] Calcium.ionized (Bld) [Mass/Vol] 1.15 mmol/L Normal 1.08-1.30 [facility] Comment on above: Order Comment: Speci men Type: VENOUS BLOOD SPECIMENOrdering Facility: [facility] Address: [address] [address] Performed By: #### V ALLMG ####[facility] LABCLIA [id number] [place] [address] [place] Calcium.ionized adjusted to pH 7.4 (BldA) [Moles/Vol] 1.07 mmol/L Low 1.08-1.30 [facility] Comment on above: Order Comment: Speci men Type: VENOUS BLOOD SPECIMENOrdering Facility: [facility] Address: [address] [address] Performed By: #### V ALLMG ####[facility] LABCLIA [id number] [place] [address] [place] Carboxyhemoglobin (BldV) [Mass fraction] 1.6 % Normal 0.0-2.0 [facility] Comment on above: Order Comment: Speci men Type: VENOUS BLOOD SPECIMENOrdering Facility: [facility] Address: [address] Result Comment: Carb oxyhemoglobin Reference Range for Smokers: 2.0-8.0% Performed By: #### V ALLMG ####[facility] LABCLIA [id number] [place] [address] [place] CO2 (BldV) [Partial pressure] 57 mm[Hg] High 42-55 [facility] Comment on above: Order Comment: Speci men Type: VENOUS BLOOD SPECIMENOrdering Facility: [facility] Address: [address] [place] [address] Performed By: #### V ALLMG ####[facility] LABCLIA [id number] [place] [address] [place] CO2 [Moles/Vol] 27 mmol/L Normal 25-29 [facility] Comment on above: Order Comment: Speci men Type: VENOUS BLOOD SPECIMENOrdering Facility: [facility] Address: [address] [place] [address] Performed By: #### V ALLMG ####[facility] LABCLIA [id number] [place] [address] [place] CO2 adjusted to patient's actual temperature (BldV) [Partial pressure] 57 mmHg High 42-55 [facility] Comment on above: Order Comment: Speci men Type: VENOUS BLOOD SPECIMENOrdering Facility: [facility] Address: [address] [place], [place] [address] Performed By: #### V ALLMG ####[facility] LABCLIA [id number] [place] [address] [place] Glucose [Mass/Vol] 119 mg/dL High 60-105 [facility] Comment on above: Order Comment: Speci men Type: VENOUS BLOOD SPECIMENOrdering Facility: [facility] Address: [address] [place], [place] [address] Performed By: #### V ALLMG ####[facility] LABCLIA [id number] [place] [address] [place] HCO3 (Bld) [Moles/Vol] 26 mmol/L Normal 24-28 [facility] Comment on above: Order Comment: Speci men Type: VENOUS BLOOD SPECIMENOrdering Facility: [facility] Address: [address] [address] Performed By: #### V ALLMG ####[facility] LABIA [id number] [address] STATES OF [facility] Hematocrit (Bld) [Volume fraction] 23.6 % Low 39.0-51.0 [facility] Comment on above: Order Comment: Speci men Type: VENOUS BLOOD SPECIMENOrdering Facility: [facility] Address: [address] [address] Performed By: #### V ALLMG ####[facility] LABIA [id number] [address] [place] Hemoglobin (Bld) [Mass/Vol] 7.6 g/dL Low 13.0-17.0 [facility] Comment on above: Order Comment: Speci men Type: VENOUS BLOOD SPECIMENOrdering Facility: [facility] Address: [address] Performed By: #### V ALLMG ####[facility] LABIA [id number] [address] [place] Lactate [Moles/Vol] 0.7 mmol/L Normal 0.5-2.2 [facility] Comment on above: Order Comment: Speci men Type: VENOUS BLOOD SPECIMENOrdering Facility: [facility] Address: [address] Performed By: #### V ALLMG ####[facility] LABIA [id number] [place] [address] [place] Magnesium [Moles/Vol] 0.55 mmol/L Normal 0.45-0.60 [facility] Comment on above: Order Comment: Speci men Type: VENOUS BLOOD SPECIMENOrdering Facility: [facility] Address: [address] Performed By: #### V ALLMG ####[facility] LABCLIA [id number] [place] [address] [place] Methemoglobin (Bld) [Mass fraction] 1.8 % High 0.0-1.5 [facility] Comment on above: Order Comment: Speci men Type: VENOUS BLOOD SPECIMENOrdering Facility: [facility] Address: [address] Performed By: #### V ALLMG ####[facility] LABCLIA [id number] [place] [address] [place] Oxygen (BldV) [Partial pressure] 99 mm[Hg] High 35-45 [facility] Comment on above: Order Comment: Speci men Type: VENOUS BLOOD SPECIMENOrdering Facility: [facility] Address: [address] [place], [place] [address] Performed By: #### V ALLMG ####[facility] LABCLIA [id number] [place] [address] [place] Oxygen adjusted to patient's actual temperature (BldV) [Partial pressure] 99 mmHg High 35-45 [facility] Comment on above: Order Comment: Speci men Type: VENOUS BLOOD SPECIMENOrdering Facility: [facility] Address: [address] [place] [address] Performed By: #### V ALLMG ####[facility] LABCLIA [id number] [place] [address] [place] Oxygen saturation in Venous blood 97 % High 60-85 [facility] Comment on above: Order Comment: Speci men Type: VENOUS BLOOD SPECIMENOrdering Facility: [facility] Address: [address] [place] [address] Performed By: #### V ALLMG ####[facility] LABCLIA [id number] [place] [address] [place] Oxyhemoglobin (BldV) [Mass fraction] 94 % High 60-85 [facility] Comment on above: Order Comment: Speci men Type: VENOUS BLOOD SPECIMENOrdering Facility: [facility] Address: [address] Performed By: #### V ALLMG ####[facility] LABCLIA [id number] [place] [address] [place] pH (BldV) 7.27 [pH] Low 7.32-7.42 [facility] Comment on above: Order Comment: Speci men Type: VENOUS BLOOD SPECIMENOrdering Facility: [facility] Address: [address] Performed By: #### V ALLMG ####[facility] LABCLIA [id number] [place] [address] [place] pH adjusted to patient's actual temperature (BldV) 7.27 Low 7.32-7.42 [facility] Comment on above: Order Comment: Speci men Type: VENOUS BLOOD SPECIMENOrdering Facility: [facility] Address: [address] Performed By: #### V ALLMG ####[facility] LABCLIA [id number] [place] [address] [place] Potassium [Moles/Vol] 4.7 mmol/L Normal 3.5-5.0 [facility] Comment on above: Order Comment: Speci men Type: VENOUS BLOOD SPECIMENOrdering Facility: [facility] Address: [address] Performed By: #### V ALLMG ####[facility] LABCLIA [id number] [place] [address] [place] Sodium [Moles/Vol] 135 mmol/L Low 136-144 [facility] Comment on above: Order Comment: Speci men Type: VENOUS BLOOD SPECIMENOrdering Facility: [facility] Address: [address] Performed By: #### V ALLMG ####[facility] LABCLIA [id number] [place] [address] [place] CBC W Auto Differential pane l (Bld)on 02-02-2023 Basophils (Bld) [#/Vol] 0.11 10*3/uL High <0.11 [facility] Comment on above: Order Comment: Speci men Type: BLOOD SPECIMENOrdering Facility: [facility] Address: [address] [place] [address] Performed By: #### 5 7021-8 ####[facility] LABCLIA [id number] [place] [address] [place] Basophils/100 WBC (Bld) 2.2 % Normal [facility] Comment on above: Order Comment: Speci men Type: BLOOD SPECIMENOrdering Facility: [facility] Address: [address] [place] [address] Performed By: #### 5 7021-8 ####[facility] LABIA [id number] [place] [address] [place] Differential cell count method Nom (Bld) Auto Normal [facility] Comment on above: Order Comment: Speci men Type: BLOOD SPECIMENOrdering Facility: [facility] Address: [address] [place] [address] Performed By: #### 5 7021-8 ####[facility] LABCLIA [id number] [place] [address] [place] Eosinophils (Bld) [#/Vol] 0.10 10*3/uL Normal <0.46 [facility] Comment on above: Order Comment: Speci men Type: BLOOD SPECIMENOrdering Facility: [facility] Address: [address] [place], [place] [address] Performed By: #### 5 7021-8 ####[facility] LABCLIA [id number] [address] [place] Eosinophils/100 WBC (Bld) 2.0 % Normal [facility] Comment on above: Order Comment: Speci men Type: BLOOD SPECIMENOrdering Facility: [facility] Address: [address] [place] [address] Performed By: #### 5 7021-8 ####[facility] LABIA [id number] [place] [address] [place] Erythrocyte distribution width (RBC) [Ratio] 16.3 % High 11.5-15.0 [facility] Comment on above: Order Comment: Speci men Type: BLOOD SPECIMENOrdering Facility: [facility] Address: [address] [place] [address] Performed By: #### 5 7021-8 ####[facility] [id number] [place] [address] [place] Hematocrit (Bld) [Volume fraction] 27.0 % Low 39.0-51.0 [facility] Comment on above: Order Comment: Speci men Type: BLOOD SPECIMENOrdering Facility: [facility] Address: [address] [place] [address] Performed By: #### 5 7021-8 ####[facility] LABIA [id number] [place] [address] [place] Hemoglobin (Bld) [Mass/Vol] 8.3 g/dL Low 13.0-17.0 [facility] Comment on above: Order Comment: Speci men Type: BLOOD SPECIMENOrdering Facility: [facility] Address: [address] [place], [place] [address] Performed By: #### 5 7021-8 ####[facility] LABIA [id number] [place] [address] [place] Immature granulocytes (Bld) [#/Vol] 0.03 10*3/uL Normal <0.10 [facility] Comment on above: Order Comment: Speci men Type: BLOOD SPECIMENOrdering Facility: [facility] Address: [address] [place], [place] [address] Performed By: #### 5 7021-8 ####[facility] LABCLIA [id number] [address] STATES [facility] Immature granulocytes/100 WBC (Bld) 0.6 % Normal [facility] Comment on above: Order Comment: Speci men Type: BLOOD SPECIMENOrdering Facility: [facility] Address: [address] [place], [place] [address] Performed By: #### 5 7021-8 ####[facility] LABIA [id number] [place] [address] [place] Lymphocytes (Bld) [#/Vol] 1.36 10*3/uL Normal 1.00-4.00 [facility] Comment on above: Order Comment: Speci men Type: BLOOD SPECIMENOrdering Facility: [facility] Address: [address] [place], [place] [address] Performed By: #### 5 7021-8 ####[facility] LABIA [id number] [address] STATES [facility] Lymphocytes/100 WBC (Bld) 27.0 % Normal [facility] Comment on above: Order Comment: Speci men Type: BLOOD SPECIMENOrdering Facility: [facility] Address: [address] [place], [place] [address] Performed By: #### 5 7021-8 ####[facility] LABIA [id number] [place] [address] [place] MCH (RBC) [Entitic mass] 26.9 pg Normal 26.0-34.0 [facility] Comment on above: Order Comment: Speci men Type: BLOOD SPECIMENOrdering Facility: [facility] Address: [address] [place], [place] [address] Performed By: #### 5 7021-8 ####[facility] LABCLIA [id number] [address] OF [facility] MCHC (RBC) [Mass/Vol] 30.7 g/dL Normal 30.5-36.0 [facility] Comment on above: Order Comment: Speci men Type: BLOOD SPECIMENOrdering Facility: [facility] Address: [address] [place] [address] Performed By: #### 5 7021-8 ####[facility] LABCLIA [id number] [place] [address] [place] MCV (RBC) [Entitic vol] 87.4 fL Normal 80.0-100.0 [facility] Comment on above: Order Comment: Speci men Type: BLOOD SPECIMENOrdering Facility: [facility] Address: [address] [place] [address] Performed By: #### 5 7021-8 ####[facility] LABCLIA [id number] [place] [address] [place] Monocytes (Bld) [#/Vol] 0.32 10*3/uL Normal <0.87 [facility] Comment on above: Order Comment: Speci men Type: BLOOD SPECIMENOrdering Facility: [facility] Address: [address] [place], [place] [address] Performed By: #### 5 7021-8 ####[facility] LABIA [id number] [address] [place] Monocytes/100 WBC (Bld) 6.3 % Normal [facility] Comment on above: Order Comment: Speci men Type: BLOOD SPECIMENOrdering Facility: [facility] Address: [address] [place], [place] [address] Performed By: #### 5 7021-8 ####[facility] LABCLIA [id number] [place] [address] [place] Neutrophils (Bld) [#/Vol] 3.12 10*3/uL Normal 1.45-7.50 [facility] Comment on above: Order Comment: Speci men Type: BLOOD SPECIMENOrdering Facility: [facility] Address: [address] Performed By: #### 5 7021-8 ####[facility] LABCLIA [id number] [address] [place] Neutrophils/100 WBC (Bld) 61.9 % Normal [facility] Comment on above: Order Comment: Speci men Type: BLOOD SPECIMENOrdering Facility: [facility] Address: [address] Performed By: #### 5 7021-8 ####[facility] LABCLIA [id number] [place] [address] [place] Nucleated RBC (Bld) [#/Vol] 10*3/uL Normal <0.01 [facility] Comment on above: Order Comment: Speci men Type: BLOOD SPECIMENOrdering Facility: [facility] Address: [address] Performed By: #### 5 7021-8 ####[facility] LABCLIA [id number] [place] [address] [place] Nucleated RBC/100 WBC (Bld) [Ratio] 0.0 /100 WBC Normal [facility] Comment on above: Order Comment: Speci men Type: BLOOD SPECIMENOrdering Facility: [facility] Address: [address] [place], [place] [address] Performed By: #### 5 7021-8 ####[facility] LABCLIA [id number] [place] [address] [place] Platelet mean volume (Bld) [Entitic vol] 10.1 fL Normal 9.0-12.7 [facility] Comment on above: Order Comment: Speci men Type: BLOOD SPECIMENOrdering Facility: [facility] Address: [address] Performed By: #### 5 7021-8 ####[facility] LABCLIA [id number] [place] [address] [place] Platelets (Bld) [#/Vol] 465 10*3/uL High 150-400 [facility] Comment on above: Order Comment: Speci men Type: BLOOD SPECIMENOrdering Facility: [facility] Address: [address] [place] [address] Performed By: #### 5 7021-8 ####[facility] [id number] [place] [address] [place] RBC (Bld) [#/Vol] 3.09 10*6/uL Low 4.20-6.00 [facility] Comment on above: Order Comment: Speci men Type: BLOOD SPECIMENOrdering Facility: [facility] Address: [address] [place] [address] Performed By: #### 5 7021-8 ####[facility] [id number] [place] [address] [place] WBC (Bld) [#/Vol] 5.04 10*3/uL Normal 3.70-11.00 [facility] Comment on above: Order Comment: Speci men Type: BLOOD SPECIMENOrdering Facility: [facility] Address: [address] [place], [place] [address] Performed By: #### 5 7021-8 ####[facility] [id number] [place] [address] [place] CONSULT PROGon 02-02-2023 CONSULT PROG Normal [facility] CONSULT PROG Normal [facility] Comprehensive metabolic 2000 panelon 02-02-2023 Albumin [Mass/Vol] 2.4 g/dL Low 3.9-4.9 [facility] Comment on above: Order Comment: Speci men Type: BLOOD SPECIMENOrdering Facility: [facility] Address: [address] [place], [place] [address] Performed By: #### 2 4323-8 ####[facility] LABCLIA [id number] [place] [address] [place] ALP [Catalytic activity/Vol] 152 U/L High 38-113 [facility] Comment on above: Order Comment: Speci men Type: BLOOD SPECIMENOrdering Facility: [facility] Address: [address] [place] [address] Performed By: #### 2 4323-8 ####[facility] LABCLIA [id number] [place] [address] [place] ALT [Catalytic activity/Vol] 299 U/L High 10-54 [facility] Comment on above: Order Comment: Speci men Type: BLOOD SPECIMENOrdering Facility: [facility] Address: [address] [place] [address] Performed By: #### 2 4323-8 ####[facility] LABCLIA [id number] [place] [address] [place] Anion gap [Moles/Vol] 9 mmol/L Normal 9-18 [facility] Comment on above: Order Comment: Speci men Type: BLOOD SPECIMENOrdering Facility: [facility] Address: [address] [place] [address] Performed By: #### 2 4323-8 ####[facility] LABCLIA [id number] [place] [address] [place] AST [Catalytic activity/Vol] 264 U/L High 14-40 [facility] Comment on above: Order Comment: Speci men Type: BLOOD SPECIMENOrdering Facility: [facility] Address: [address] [place] [address] Performed By: #### 2 4323-8 ####[facility] LABCLIA [id number] [place] [address] [place] Bilirubin [Mass/Vol] 0.2 mg/dL Normal 0.2-1.3 [facility] Comment on above: Order Comment: Speci men Type: BLOOD SPECIMENOrdering Facility: [facility] Address: [address] Performed By: #### 2 4323-8 ####[facility] LABCLIA [id number] [place] [address] [place] Calcium [Mass/Vol] 7.8 mg/dL Low 8.5-10.2 [facility] Comment on above: Order Comment: Speci men Type: BLOOD SPECIMENOrdering Facility: [facility] Address: [address] Performed By: #### 2 4323-8 ####[facility] LABCLIA [id number] [place] [address] [place] Chloride [Moles/Vol] 103 mmol/L Normal 97-105 [facility] Comment on above: Order Comment: Speci men Type: BLOOD SPECIMENOrdering Facility: [facility] Address: [address] Performed By: #### 2 4323-8 ####[facility] LABCLIA [id number] [place] [address] [place] CO2 [Moles/Vol] 24 mmol/L Normal 22-30 [facility] Comment on above: Order Comment: Speci men Type: BLOOD SPECIMENOrdering Facility: [facility] Address: [address] Performed By: #### 2 4323-8 ####[facility] LABCLIA [id number] [place] [address] [place] Creatinine [Mass/Vol] 0.92 mg/dL Normal 0.73-1.22 [facility] Comment on above: Order Comment: Speci men Type: BLOOD SPECIMENOrdering Facility: [facility] Address: [address] Performed By: #### 2 4323-8 ####[facility] LABCLIA [id number] [place] [address] [place] ESTIMATED GLOMERULAR FILTRATION RATE 96 mL/min/1.73m??? Normal >=60 [facility] Comment on above: Order Comment: Alden padilla Type: BLOOD SPECIMENOrdering Facility: [facility] Address: [address] [address] Result Comment: Veronica mated Glomerular Filtration Rate [...] actual GFR. Performed By: #### 2 4323-8 ####[facility] LABIA [id number] [place] [address] [place] Glucose [Mass/Vol] 123 mg/dL High 74-99 [facility] Comment on above: Order Comment: Alden padilla Type: BLOOD SPECIMENOrdering Facility: [facility] Address: [address] [place] [address] Result Comment: The [place] [employer] (ADA) provides guidance for cutoff [...] Standards of Medical Care in Diabetes 2016, [place] [employer]. Diabetes Care. 2016.39(Suppl 1). Performed By: #### 2 4323-8 ####[facility] LABIA [id number] [place] [address] [place] Potassium [Moles/Vol] 4.7 mmol/L Normal 3.7-5.1 [facility] Comment on above: Order Comment: Speci men Type: BLOOD SPECIMENOrdering Facility: [facility] Address: [address] [place], [place] [address] Performed By: #### 2 4323-8 ####[facility] LABCLIA [id number] [place] [address] [place] Protein [Mass/Vol] 5.9 g/dL Low 6.3-8.0 [facility] Comment on above: Order Comment: Speci men Type: BLOOD SPECIMENOrdering Facility: [facility] Address: [address] [place], [place] [address] Performed By: #### 2 4323-8 ####[facility] LABCLIA [id number] [place] [address] [place] Sodium [Moles/Vol] 136 mmol/L Normal 136-144 [facility] Comment on above: Order Comment: Speci men Type: BLOOD SPECIMENOrdering Facility: [facility] Address: [address] [place], [place] [address] Performed By: #### 2 4323-8 ####[facility] LABCLIA [id number] [place] [address] [place] Urea nitrogen [Mass/Vol] 18 mg/dL Normal 9-24 [facility] Comment on above: Order Comment: Speci men Type: BLOOD SPECIMENOrdering Facility: [facility] Address: [address] [place] [address] Performed By: #### 2 4323-8 ####[facility] LABCLIA [id number] [place] [address] [place] THERAPY NTon 02-02-2023 THERAPY NT Normal [facility] TYPE + SCREENon 02-02-2023 ABO A Normal [facility] Comment on above: Order Comment: Speci men Type: BLOOD SPECIMENOrdering Facility: [facility] Address: [address] [address] Performed By: #### T SCR ####CC MAIN BLOOD BANKCLIA [id number] [address] HISTORICAL AB SCR STATUS Negative Normal [facility] Comment on above: Order Comment: Speci men Type: BLOOD SPECIMENOrdering Facility: [facility] Address: [address] [place] [address] Performed By: #### T SCR ####CC MAIN BLOOD BANKCLIA [id number] [address] [place] Rh Nom (Bld) Positive Normal [facility] Comment on above: Order Comment: Speci men Type: BLOOD SPECIMENOrdering Facility: [facility] Address: [address] [place] [address] Performed By: #### T SCR ####CC MAIN BLOOD BANKCLIA [id number] [address] TYPE AND SCREEN EXPIRATION 02/05/2023 23:59 Normal [facility] Comment on above: Order Comment: Speci men Type: BLOOD SPECIMENOrdering Facility: [facility] Address: [address] [place] [address] Performed By: #### T SCR ####CC [facility] BLOOD BANKCLIA [id number] [address] [place] CBC W Auto Differential pane l (Bld)on 02-01-2023 Basophils (Bld) [#/Vol] 0.06 10*3/uL Normal <0.11 [facility] Comment on above: Order Comment: Speci men Type: BLOOD SPECIMENOrdering Facility: [facility] Address: [address] [place], [place] [address] Performed By: #### 5 7021-8 ####[facility] LABCLIA [id number] [address] [place] Basophils/100 WBC (Bld) 0.8 % Normal [facility] Comment on above: Order Comment: Speci men Type: BLOOD SPECIMENOrdering Facility: [facility] Address: [address] Performed By: #### 5 7021-8 ####[facility] LABIA [id number] [place] [address] [place] Differential cell count method Nom (Bld) Auto Normal [facility] Comment on above: Order Comment: Speci men Type: BLOOD SPECIMENOrdering Facility: [facility] Address: [address] Performed By: #### 5 7021-8 ####[facility] LABIA [id number] [place] [address] [place] Eosinophils (Bld) [#/Vol] 0.09 10*3/uL Normal <0.46 [facility] Comment on above: Order Comment: Speci men Type: BLOOD SPECIMENOrdering Facility: [facility] Address: [address] Performed By: #### 5 7021-8 ####[facility] LABIA [id number] [address] [place] Eosinophils/100 WBC (Bld) 1.2 % Normal [facility] Comment on above: Order Comment: Speci men Type: BLOOD SPECIMENOrdering Facility: [facility] Address: [address] Performed By: #### 5 7021-8 ####[facility] LABIA [id number] [place] [address] [place] Erythrocyte distribution width (RBC) [Ratio] 16.4 % High 11.5-15.0 [facility] Comment on above: Order Comment: Speci men Type: BLOOD SPECIMENOrdering Facility: [facility] Address: [address] Performed By: #### 5 7021-8 ####[facility] LABCLIA [id number] [place] [address] [place] Hematocrit (Bld) [Volume fraction] 25.5 % Low 39.0-51.0 [facility] Comment on above: Order Comment: Speci men Type: BLOOD SPECIMENOrdering Facility: [facility] Address: [address] [place] [address] Performed By: #### 5 7021-8 ####[facility] LABIA [id number] [place] [address] [place] Hemoglobin (Bld) [Mass/Vol] 7.9 g/dL Low 13.0-17.0 [facility] Comment on above: Order Comment: Speci men Type: BLOOD SPECIMENOrdering Facility: [facility] Address: [address] [place] [address] Performed By: #### 5 7021-8 ####[facility] LABIA [id number] [address] [place] Immature granulocytes (Bld) [#/Vol] 0.07 10*3/uL Normal <0.10 [facility] Comment on above: Order Comment: Speci men Type: BLOOD SPECIMENOrdering Facility: [facility] Address: [address] [place] [address] Performed By: #### 5 7021-8 ####[facility] LABCLIA [id number] [address] [place] Immature granulocytes/100 WBC (Bld) 0.9 % Normal [facility] Comment on above: Order Comment: Speci men Type: BLOOD SPECIMENOrdering Facility: [facility] Address: [address] [place], [place] [address] Performed By: #### 5 7021-8 ####[facility] LABIA [id number] [place] [address] [place] Lymphocytes (Bld) [#/Vol] 0.99 10*3/uL Low 1.00-4.00 [facility] Comment on above: Order Comment: Speci men Type: BLOOD SPECIMENOrdering Facility: [facility] Address: [address] [place] [address] Performed By: #### 5 7021-8 ####[facility] LABIA [id number] [address] Lymphocytes/100 WBC (Bld) 13.1 % Normal [facility] Comment on above: Order Comment: Speci men Type: BLOOD SPECIMENOrdering Facility: [facility] Address: [address] [place] [address] Performed By: #### 5 7021-8 ####[facility] LABIA [id number] [address] [place] MCH (RBC) [Entitic mass] 26.8 pg Normal 26.0-34.0 [facility] Comment on above: Order Comment: Speci men Type: BLOOD SPECIMENOrdering Facility: [facility] Address: [address] [place], [place] [address] Performed By: #### 5 7021-8 ####[facility] LABIA [id number] [address] [place] MCHC (RBC) [Mass/Vol] 31.0 g/dL Normal 30.5-36.0 [facility] Comment on above: Order Comment: Speci men Type: BLOOD SPECIMENOrdering Facility: [facility] Address: [address] [place], [place] [address] Performed By: #### 5 7021-8 ####[facility] LABIA [id number] [address] [place] MCV (RBC) [Entitic vol] 86.4 fL Normal 80.0-100.0 [facility] Comment on above: Order Comment: Speci men Type: BLOOD SPECIMENOrdering Facility: [facility] Address: [address] [place], [place] [address] Performed By: #### 5 7021-8 ####[facility] LABCLIA [id number] [place] [address] [place] Monocytes (Bld) [#/Vol] 0.35 10*3/uL Normal <0.87 [facility] Comment on above: Order Comment: Speci men Type: BLOOD SPECIMENOrdering Facility: [facility] Address: [address] Performed By: #### 5 7021-8 ####[facility] LABCLIA [id number] [address] [place] Monocytes/100 WBC (Bld) 4.6 % Normal [facility] Comment on above: Order Comment: Speci men Type: BLOOD SPECIMENOrdering Facility: [facility] Address: [address] [place], [place] [address] Performed By: #### 5 7021-8 ####[facility] LABCLIA [id number] [place] [address] [place] Neutrophils (Bld) [#/Vol] 5.98 10*3/uL Normal 1.45-7.50 [facility] Comment on above: Order Comment: Speci men Type: BLOOD SPECIMENOrdering Facility: [facility] Address: [address] [place], [place] [address] Performed By: #### 5 7021-8 ####[facility] LABCLIA [id number] [place] [address] [place] Neutrophils/100 WBC (Bld) 79.4 % Normal [facility] Comment on above: Order Comment: Speci men Type: BLOOD SPECIMENOrdering Facility: [facility] Address: [address] [place], [place] [address] Performed By: #### 5 7021-8 ####[facility] LABCLIA [id number] [address] [id number] [address] [place] Nucleated RBC (Bld) [#/Vol] 10*3/uL Normal <0.01 [facility] Comment on above: Order Comment: Speci men Type: BLOOD SPECIMENOrdering Facility: [facility] Address: [address] [place] [address] Performed By: #### 5 7021-8 ####[facility] LABIA [id number] [place] [address] [place] Nucleated RBC/100 WBC (Bld) [Ratio] 0.0 /100 WBC Normal [facility] Comment on above: Order Comment: Speci men Type: BLOOD SPECIMENOrdering Facility: [facility] Address: [address] [place], [place] [address] Performed By: #### 5 7021-8 ####[facility] LABIA [id number] [place] [address] [place] Platelet mean volume (Bld) [Entitic vol] 10.0 fL Normal 9.0-12.7 [facility] Comment on above: Order Comment: Speci men Type: BLOOD SPECIMENOrdering Facility: [facility] Address: [address] [place], [place] [address] Performed By: #### 5 7021-8 ####[facility] LABIA [id number] [place] [address] [place] Platelets (Bld) [#/Vol] 470 10*3/uL High 150-400 [facility] Comment on above: Order Comment: Speci men Type: BLOOD SPECIMENOrdering Facility: [facility] Address: [address] [place], [place] [address] Performed By: #### 5 7021-8 ####[facility] LABCLIA [id number] [place] [address] [place] RBC (Bld) [#/Vol] 2.95 10*6/uL Low 4.20-6.00 [facility] Comment on above: Order Comment: Speci men Type: BLOOD SPECIMENOrdering Facility: [facility] Address: [address] [place], [place] [address] Performed By: #### 5 7021-8 ####[facility] LABCLIA [id number] [place] [address] [place] WBC (Bld) [#/Vol] 7.54 10*3/uL Normal 3.70-11.00 [facility] Comment on above: Order Comment: Speci men Type: BLOOD SPECIMENOrdering Facility: [facility] Address: [address] [place], [place] [address] Performed By: #### 5 7021-8 ####[facility] LABCLIA [id number] [place] [address] [place] CONSULT PROGon 02-01-2023 CONSULT PROG Normal [facility] CONSULT PROG Normal [facility] Comprehensive metabolic 2000 panelon 02-01-2023 Albumin [Mass/Vol] 2.5 g/dL Low 3.9-4.9 [facility] Comment on above: Order Comment: Speci men Type: BLOOD SPECIMENOrdering Facility: [facility] Address: [address] [place], [place] [address] Performed By: #### 2 4323-8, 76467-7 ####[facility] LABCLIA [id number] [place] [address] [place] ALP [Catalytic activity/Vol] 155 U/L High 38-113 [facility] Comment on above: Order Comment: Speci men Type: BLOOD SPECIMENOrdering Facility: [facility] Address: [address] Performed By: #### 2 4323-8, 68716-3 ####[facility] LABCLIA [id number] [place] [address] [place] ALT [Catalytic activity/Vol] 214 U/L High 10-54 [facility] Comment on above: Order Comment: Speci men Type: BLOOD SPECIMENOrdering Facility: [facility] Address: [address] Performed By: #### 2 4323-8, 67272-1 ####[facility] LABCLIA [id number] [place] [address] [place] Anion gap [Moles/Vol] 9 mmol/L Normal 9-18 [facility] Comment on above: Order Comment: Speci men Type: BLOOD SPECIMENOrdering Facility: [facility] Address: [address] [address] Performed By: #### 2 4323-8, 72684-0 ####[facility] LABCLIA [id number] [place] [address] [place] AST [Catalytic activity/Vol] 272 U/L High 14-40 [facility] Comment on above: Order Comment: Speci men Type: BLOOD SPECIMENOrdering Facility: [facility] Address: [address] [address] Performed By: #### 2 4323-8, 42793-8 ####[facility] LABCLIA [id number] [place] [address] [place] Bilirubin [Mass/Vol] 0.3 mg/dL Normal 0.2-1.3 [facility] Comment on above: Order Comment: Speci men Type: BLOOD SPECIMENOrdering Facility: [facility] Address: [address] Performed By: #### 2 4323-8, 95332-2 ####[facility] LABCLIA [id number] [place] [address] [place] Calcium [Mass/Vol] 7.8 mg/dL Low 8.5-10.2 [facility] Comment on above: Order Comment: Speci men Type: BLOOD SPECIMENOrdering Facility: [facility] Address: [address] Performed By: #### 2 4323-8, 11351-7 ####[facility] LABCLIA [id number] [place] [address] [place] Chloride [Moles/Vol] 105 mmol/L Normal 97-105 [facility] Comment on above: Order Comment: Speci men Type: BLOOD SPECIMENOrdering Facility: [facility] Address: [address] [place] [address] Performed By: #### 2 4323-8, 69914-0 ####[facility] LABCLIA [id number] [place] [address] [place] CO2 [Moles/Vol] 23 mmol/L Normal 22-30 [facility] Comment on above: Order Comment: Speci men Type: BLOOD SPECIMENOrdering Facility: [facility] Address: [address] [place] [address] Performed By: #### 2 4323-8, 03745-9 ####[facility] LABCLIA [id number] [place] [address] [place] Creatinine [Mass/Vol] 1.09 mg/dL Normal 0.73-1.22 [facility] Comment on above: Order Comment: Speci men Type: BLOOD SPECIMENOrdering Facility: [facility] Address: [address] [place] [address] Performed By: #### 2 4323-8, 32841-4 ####[facility] LABIA [id number] [place] [address] [place] ESTIMATED GLOMERULAR FILTRATION RATE 78 mL/min/1.73m??? Normal >=60 [facility] Comment on above: Order Comment: Speci men Type: BLOOD SPECIMENOrdering Facility: [facility] Address: [address] [place] [address] Result Comment: Veronica mated Glomerular Filtration Rate [...] actual GFR. Performed By: #### 2 4323-8, 71237-0 ####[facility] LABCLIA [id number] [facility] [address] [address] [place] Glucose [Mass/Vol] 148 mg/dL High 74-99 [facility] Comment on above: Order Comment: Alden padilla Type: BLOOD SPECIMENOrdering Facility: [facility] Address: [address] [id number] Result Comment: The [place] [employer] (ADA) provides guidance for cutoff [...] Standards of Medical Care in Diabetes 2016, [place] [employer]. Diabetes Care. 2016.39(Suppl 1). Performed By: #### 2 4323-8, 74999-2 ####[facility] LABCLIA [id number] [place] [id number] [place] Potassium [Moles/Vol] 5.4 mmol/L High 3.7-5.1 [facility] Comment on above: Order Comment: Alden padilla Type: BLOOD SPECIMENOrdering Facility: [facility] Address: [address] [place] [address] Performed By: #### 2 4323-8, 43333-1 ####[facility] LABCLIA [id number] [facility] [place] [id number] [place] Protein [Mass/Vol] 5.6 g/dL Low 6.3-8.0 [facility] Comment on above: Order Comment: Speci men Type: BLOOD SPECIMENOrdering Facility: [facility] Address: [address] Performed By: #### 2 4323-8, 28583-1 ####[facility] LABCLIA [id number] [place] [address] [place] Sodium [Moles/Vol] 137 mmol/L Normal 136-144 [facility] Comment on above: Order Comment: Speci men Type: BLOOD SPECIMENOrdering Facility: [facility] Address: [address] [place] [address] Performed By: #### 2 4323-8, 08053-4 ####[facility] LABCLIA [id number] [place] [address] [place] Urea nitrogen [Mass/Vol] 19 mg/dL Normal 9-24 [facility] Comment on above: Order Comment: Speci men Type: BLOOD SPECIMENOrdering Facility: [facility] Address: [address] Performed By: #### 2 4323-8, 24828-2 ####[facility] LABCLIA [id number] [place] [address] [place] Prealb SerPl-mCncon 02-02-20 23 Prealbumin [Mass/Vol] 16 mg/dL Low 17-36 [facility] Comment on above: Order Comment: Speci men Type: BLOOD SPECIMENOrdering Facility: [facility] Address: [address] Performed By: #### 2 4323-8, 90945-8 ####[facility] LABCLIA [id number] [place] [address] [place] ANES POSTPROC EVALon 023 ANES POSTPROC EVAL Normal [facility] ANES PRE-OPon 01-31-2023 ANES PRE-OP Normal [facility] BRIEF OP NOTon 01-31-2023 BRIEF OP NOT Normal [facility] CASE MANAGEMon 01-31-2023 CASE MANAGEM Normal [facility] CBC panel Auto (Bld)on 01-31 Erythrocyte distribution width (RBC) [Ratio] 16.8 % High 11.5-15.0 [facility] Comment on above: Order Comment: Speci men Type: BLOOD SPECIMENOrdering Facility: [facility] Address: [address] [place] [address] Performed By: #### 5 8410-2 ####[facility] LABCLIA [id number] [place] [address] [place] Hematocrit (Bld) [Volume fraction] 27.2 % Low 39.0-51.0 [facility] Comment on above: Order Comment: Speci men Type: BLOOD SPECIMENOrdering Facility: [facility] Address: [address] [place] [address] Performed By: #### 5 8410-2 ####[facility] LABCLIA [id number] [place] [address] [place] Hemoglobin (Bld) [Mass/Vol] 8.6 g/dL Low 13.0-17.0 [facility] Comment on above: Order Comment: Speci men Type: BLOOD SPECIMENOrdering Facility: [facility] Address: [address] [place] [address] Performed By: #### 5 8410-2 ####[facility] LABCLIA [id number] [place] [address] [place] MCH (RBC) [Entitic mass] 26.9 pg Normal 26.0-34.0 [facility] Comment on above: Order Comment: Speci men Type: BLOOD SPECIMENOrdering Facility: [facility] Address: [address] [place] [address] Performed By: #### 5 8410-2 ####[facility] LABCLIA [id number] [place] [address] [place] MCHC (RBC) [Mass/Vol] 31.6 g/dL Normal 30.5-36.0 [facility] Comment on above: Order Comment: Speci men Type: BLOOD SPECIMENOrdering Facility: [facility] Address: [address] [place] [address] Performed By: #### 5 8410-2 ####[facility] [id number] [place] [address] [place] MCV (RBC) [Entitic vol] 85.0 fL Normal 80.0-100.0 [facility] Comment on above: Order Comment: Speci men Type: BLOOD SPECIMENOrdering Facility: [facility] Address: [address] [place] [address] Performed By: #### 5 8410-2 ####[facility] [id number] [place] [address] [place] Nucleated RBC (Bld) [#/Vol] 10*3/uL Normal <0.01 [facility] Comment on above: Order Comment: Speci men Type: BLOOD SPECIMENOrdering Facility: [facility] Address: [address] [place], [place] [address] Performed By: #### 5 8410-2 ####[facility] [id number] [place] [address] [place] Platelet mean volume (Bld) [Entitic vol] 9.6 fL Normal 9.0-12.7 [facility] Comment on above: Order Comment: Speci men Type: BLOOD SPECIMENOrdering Facility: [facility] Address: [address] [place], [place] [address] Performed By: #### 5 8410-2 ####[facility] [id number] [place] [address] [place] Platelets (Bld) [#/Vol] 464 10*3/uL High 150-400 [facility] Comment on above: Order Comment: Speci men Type: BLOOD SPECIMENOrdering Facility: [facility] Address: [address] [place], [place] [address] Performed By: #### 5 8410-2 ####[facility] LABCLIA [id number] [place] [address] [place] RBC (Bld) [#/Vol] 3.20 10*6/uL Low 4.20-6.00 [facility] Comment on above: Order Comment: Speci men Type: BLOOD SPECIMENOrdering Facility: [facility] Address: [address] [place], [place] [address] Performed By: #### 5 8410-2 ####[facility] LABCLIA [id number] [place] [address] [place] WBC (Bld) [#/Vol] 6.63 10*3/uL Normal 3.70-11.00 [facility] Comment on above: Order Comment: Speci men Type: BLOOD SPECIMENOrdering Facility: [facility] Address: [address] [place], [place] [address] Performed By: #### 5 8410-2 ####[facility] LABCLIA [id number] [place] [address] [place] CONSULT PROGon 01-31-2023 CONSULT PROG Normal [facility] CONSULT PROG Normal [facility] Comprehensive metabolic 2000 panelon 01-31-2023 Albumin [Mass/Vol] 2.5 g/dL Low 3.9-4.9 [facility] Comment on above: Order Comment: Speci men Type: BLOOD SPECIMENOrdering Facility: [facility] Address: [address] [place] [address] Performed By: #### 2 4323-8 ####[facility] LABCLIA [id number] [place] [address] [place] ALP [Catalytic activity/Vol] 153 U/L High 38-113 [facility] Comment on above: Order Comment: Speci men Type: BLOOD SPECIMENOrdering Facility: [facility] Address: [address] [place] [address] Performed By: #### 2 4323-8 ####[facility] LABCLIA [id number] [place] [address] [place] ALT [Catalytic activity/Vol] 142 U/L High 10-54 [facility] Comment on above: Order Comment: Speci men Type: BLOOD SPECIMENOrdering Facility: [facility] Address: [address] [place] [address] Performed By: #### 2 4323-8 ####[facility] LABCLIA [id number] [place] [address] [place] Anion gap [Moles/Vol] 9 mmol/L Normal 9-18 [facility] Comment on above: Order Comment: Speci men Type: BLOOD SPECIMENOrdering Facility: [facility] Address: [address] [place] [address] Performed By: #### 2 4323-8 ####[facility] LABCLIA [id number] [place] [address] [place] AST [Catalytic activity/Vol] 167 U/L High 14-40 [facility] Comment on above: Order Comment: Speci men Type: BLOOD SPECIMENOrdering Facility: [facility] Address: [address] [place] [address] Result Comment: Resu lts may be falsely increased due to interference from hemolysis. Suggest reorder as clinically indicated. Performed By: #### 2 4323-8 ####[facility] LABCLIA [id number] [place] [address] [place] Bilirubin [Mass/Vol] 0.3 mg/dL Normal 0.2-1.3 [facility] Comment on above: Order Comment: Speci men Type: BLOOD SPECIMENOrdering Facility: [facility] Address: [address] [address] Performed By: #### 2 4323-8 ####[facility] LABCLIA [id number] [place] [address] [place] Calcium [Mass/Vol] 8.3 mg/dL Low 8.5-10.2 [facility] Comment on above: Order Comment: Speci men Type: BLOOD SPECIMENOrdering Facility: [facility] Address: [address] [address] Performed By: #### 2 4323-8 ####[facility] LABCLIA [id number] [place] [address] [place] Chloride [Moles/Vol] 107 mmol/L High 97-105 [facility] Comment on above: Order Comment: Speci men Type: BLOOD SPECIMENOrdering Facility: [facility] Address: [address] [address] Performed By: #### 2 4323-8 ####[facility] LABCLIA [id number] [place] [address] [place] CO2 [Moles/Vol] 23 mmol/L Normal 22-30 [facility] Comment on above: Order Comment: Speci men Type: BLOOD SPECIMENOrdering Facility: [facility] Address: [address] Performed By: #### 2 4323-8 ####[facility] LABCLIA [id number] [place] [address] [place] Creatinine [Mass/Vol] 1.08 mg/dL Normal 0.73-1.22 [facility] Comment on above: Order Comment: Speci men Type: BLOOD SPECIMENOrdering Facility: [facility] Address: [address] [address] Performed By: #### 2 4323-8 ####[facility] LABCLIA [id number] [place] [address] [place] ESTIMATED GLOMERULAR FILTRATION RATE 79 mL/min/1.73m??? Normal >=60 [facility] Comment on above: Order Comment: Alden padilla Type: BLOOD SPECIMENOrdering Facility: [facility] Address: [address] [place] [address] Result Comment: Veronica mated Glomerular Filtration Rate [...] actual GFR. Performed By: #### 2 4323-8 ####[facility] LABCLIA [id number] [place] [address] [place] Glucose [Mass/Vol] 105 mg/dL High 74-99 [facility] Comment on above: Order Comment: Alden padilla Type: BLOOD SPECIMENOrdering Facility: [facility] Address: [address] [place] [address] Result Comment: The [place] [employer] (ADA) provides guidance for cutoff [...] Standards of Medical Care in Diabetes 2016, [place] [employer]. Diabetes Care. 2016.39(Suppl 1). Performed By: #### 2 4323-8 ####[facility] LABCLIA [id number] [place] [address] [place] Potassium [Moles/Vol] 5.0 mmol/L Normal 3.7-5.1 [facility] Comment on above: Order Comment: Speci men Type: BLOOD SPECIMENOrdering Facility: [facility] Address: [address] [address] Performed By: #### 2 4323-8 ####[facility] LABCLIA [id number] [place] [address] [place] Protein [Mass/Vol] 6.2 g/dL Low 6.3-8.0 [facility] Comment on above: Order Comment: Speci men Type: BLOOD SPECIMENOrdering Facility: [facility] Address: [address] [address] Performed By: #### 2 4323-8 ####[facility] LABCLIA [id number] [place] [address] [place] Sodium [Moles/Vol] 139 mmol/L Normal 136-144 [facility] Comment on above: Order Comment: Speci men Type: BLOOD SPECIMENOrdering Facility: [facility] Address: [address] [address] Performed By: #### 2 4323-8 ####[facility] LABCLIA [id number] [place] [address] [place] Urea nitrogen [Mass/Vol] 24 mg/dL Normal 9-24 [facility] Comment on above: Order Comment: Speci men Type: BLOOD SPECIMENOrdering Facility: [facility] Address: [address] Performed By: #### 2 4323-8 ####[facility] LABCLIA [id number] [place] [address] [place] NUTRITIONon 01-31-2023 NUTRITION Normal [facility] OPERATIVE NOon 01-31-2023 OPERATIVE NO Normal [facility] THERAPY NTon 01-31-2023 THERAPY NT Normal [facility] Basic metabolic 2000 panelon 01-30-2023 Anion gap [Moles/Vol] 8 mmol/L Low 9-18 [facility] Comment on above: Order Comment: Speci men Type: BLOOD SPECIMENOrdering Facility: [facility] Address: [address] [address] Performed By: #### 2 4321-2 ####[facility] LABCLIA [id number] [place] [address] [place] Calcium [Mass/Vol] 7.5 mg/dL Low 8.5-10.2 [facility] Comment on above: Order Comment: Speci men Type: BLOOD SPECIMENOrdering Facility: [facility] Address: [address] [address] Performed By: #### 2 4321-2 ####[facility] LABCLIA [id number] [place] [address] [place] Chloride [Moles/Vol] 105 mmol/L Normal 97-105 [facility] Comment on above: Order Comment: Speci men Type: BLOOD SPECIMENOrdering Facility: [facility] Address: [address] [address] Performed By: #### 2 4321-2 ####[facility] LABCLIA [id number] [place] [address] [place] CO2 [Moles/Vol] 23 mmol/L Normal 22-30 [facility] Comment on above: Order Comment: Speci men Type: BLOOD SPECIMENOrdering Facility: [facility] Address: [address] Performed By: #### 2 4321-2 ####[facility] LABCLIA [id number] [place] [address] [place] Creatinine [Mass/Vol] 1.17 mg/dL Normal 0.73-1.22 [facility] Comment on above: Order Comment: Speci men Type: BLOOD SPECIMENOrdering Facility: [facility] Address: [address] Performed By: #### 2 4321-2 ####[facility] LABCLIA [id number] [place] [address] [place] ESTIMATED GLOMERULAR FILTRATION RATE 72 mL/min/1.73m??? Normal >=60 [facility] Comment on above: Order Comment: Alden padilla Type: BLOOD SPECIMENOrdering Facility: [facility] Address: [address] [address] Result Comment: Veronica mated Glomerular Filtration Rate [...] actual GFR. Performed By: #### 2 4321-2 ####[facility] LABIA [id number] [place] [address] [place] Glucose [Mass/Vol] 116 mg/dL High 74-99 [facility] Comment on above: Order Comment: Alden padilla Type: BLOOD SPECIMENOrdering Facility: [facility] Address: [address] [place] [address] Result Comment: The [place] Diabetes Association (ADA) provides guidance for cutoff [...] Standards of Medical Care in Diabetes 2016, [place] [employer]. Diabetes Care. 2016.39(Suppl 1). Performed By: #### 2 4321-2 ####[facility] LABIA [id number] [place] [address] [place] Potassium [Moles/Vol] 4.6 mmol/L Normal 3.7-5.1 [facility] Comment on above: Order Comment: Speci men Type: BLOOD SPECIMENOrdering Facility: [facility] Address: [address] [address] Performed By: #### 2 4321-2 ####[facility] LABCLIA [id number] [place] [address] [place] Sodium [Moles/Vol] 136 mmol/L Normal 136-144 [facility] Comment on above: Order Comment: Speci men Type: BLOOD SPECIMENOrdering Facility: [facility] Address: [address] [place] [address] Performed By: #### 2 4321-2 ####[facility] LABCLIA [id number] [place] [address] [place] Urea nitrogen [Mass/Vol] 22 mg/dL Normal 9-24 [facility] Comment on above: Order Comment: Speci men Type: BLOOD SPECIMENOrdering Facility: [facility] Address: [address] [place] [address] Performed By: #### 2 4321-2 ####[facility] LABCLIA [id number] [place] [address] [place] CBC panel Auto (Bld)on 01-30 Erythrocyte distribution width (RBC) [Ratio] 16.6 % High 11.5-15.0 [facility] Comment on above: Order Comment: Speci men Type: BLOOD SPECIMENOrdering Facility: [facility] Address: [address] [place], [place] [address] Performed By: #### 5 8410-2 ####[facility] LABCLIA [id number] [place] [address] [place] Hematocrit (Bld) [Volume fraction] 27.1 % Low 39.0-51.0 [facility] Comment on above: Order Comment: Speci men Type: BLOOD SPECIMENOrdering Facility: [facility] Address: [address] [address] Performed By: #### 5 8410-2 ####[facility] [id number] [address] [place] Hemoglobin (Bld) [Mass/Vol] 8.7 g/dL Low 13.0-17.0 [facility] Comment on above: Order Comment: Speci men Type: BLOOD SPECIMENOrdering Facility: [facility] Address: [address] [place] [address] Performed By: #### 5 8410-2 ####[facility] [id number] [place] [address] [place] MCH (RBC) [Entitic mass] 27.4 pg Normal 26.0-34.0 [facility] Comment on above: Order Comment: Speci men Type: BLOOD SPECIMENOrdering Facility: [facility] Address: [address] Performed By: #### 5 8410-2 ####[facility] [id number] [address] [place] MCHC (RBC) [Mass/Vol] 32.1 g/dL Normal 30.5-36.0 [facility] Comment on above: Order Comment: Speci men Type: BLOOD SPECIMENOrdering Facility: [facility] Address: [address] [place], [place] [address] Performed By: #### 5 8410-2 ####[facility] [id number] [place] [address] [place] MCV (RBC) [Entitic vol] 85.2 fL Normal 80.0-100.0 [facility] Comment on above: Order Comment: Speci men Type: BLOOD SPECIMENOrdering Facility: [facility] Address: [address] [place], [place] [address] Performed By: #### 5 8410-2 ####[facility] LABCLIA [id number] [place] [address] [place] Nucleated RBC (Bld) [#/Vol] 10*3/uL Normal <0.01 [facility] Comment on above: Order Comment: Speci men Type: BLOOD SPECIMENOrdering Facility: [facility] Address: [address] [place] [address] Performed By: #### 5 8410-2 ####[facility] LABIA [id number] [place] [address] [place] Platelet mean volume (Bld) [Entitic vol] 9.8 fL Normal 9.0-12.7 [facility] Comment on above: Order Comment: Speci men Type: BLOOD SPECIMENOrdering Facility: [facility] Address: [address] [place] [address] Performed By: #### 5 8410-2 ####[facility] LABIA [id number] [place] [address] [place] Platelets (Bld) [#/Vol] 407 10*3/uL High 150-400 [facility] Comment on above: Order Comment: Speci men Type: BLOOD SPECIMENOrdering Facility: [facility] Address: [address] [place] [address] Performed By: #### 5 8410-2 ####[facility] LABIA [id number] [place] [address] [place] RBC (Bld) [#/Vol] 3.18 10*6/uL Low 4.20-6.00 [facility] Comment on above: Order Comment: Speci men Type: BLOOD SPECIMENOrdering Facility: [facility] Address: [address] [place] [address] Performed By: #### 5 8410-2 ####[facility] LABIA [id number] [place] [address] [place] WBC (Bld) [#/Vol] 10.63 10*3/uL Normal 3.70-11.00 [facility] Comment on above: Order Comment: Speci men Type: BLOOD SPECIMENOrdering Facility: [facility] Address: [address] [place] [address] Performed By: #### 5 8410-2 ####[facility] LABCLIA [id number] [place] [address] [place] Erythrocyte distribution width (RBC) [Ratio] 16.6 % High 11.5-15.0 [facility] Comment on above: Order Comment: Speci men Type: BLOOD SPECIMENOrdering Facility: [facility] Address: [address] [place] [address] Performed By: #### 5 8410-2 ####[facility] LABIA [id number] [address] [place] Hematocrit (Bld) [Volume fraction] 25.7 % Low 39.0-51.0 [facility] Comment on above: Order Comment: Speci men Type: BLOOD SPECIMENOrdering Facility: [facility] Address: [address] [place] [address] Performed By: #### 5 8410-2 ####[facility] LABIA [id number] [place] [address] [place] Hemoglobin (Bld) [Mass/Vol] 8.3 g/dL Low 13.0-17.0 [facility] Comment on above: Order Comment: Speci men Type: BLOOD SPECIMENOrdering Facility: [facility] Address: [address] [place] [address] Performed By: #### 5 8410-2 ####[facility] LABCLIA [id number] [place] [address] [place] MCH (RBC) [Entitic mass] 26.9 pg Normal 26.0-34.0 [facility] Comment on above: Order Comment: Speci men Type: BLOOD SPECIMENOrdering Facility: [facility] Address: [address] Performed By: #### 5 8410-2 ####[facility] [id number] [place] [address] [place] MCHC (RBC) [Mass/Vol] 32.3 g/dL Normal 30.5-36.0 [facility] Comment on above: Order Comment: Speci men Type: BLOOD SPECIMENOrdering Facility: [facility] Address: [address] Performed By: #### 5 8410-2 ####[facility] [id number] [place] [address] [place] MCV (RBC) [Entitic vol] 83.4 fL Normal 80.0-100.0 [facility] Comment on above: Order Comment: Speci men Type: BLOOD SPECIMENOrdering Facility: [facility] Address: [address] Performed By: #### 5 8410-2 ####[facility] [id number] [place] [address] [place] Nucleated RBC (Bld) [#/Vol] 10*3/uL Normal <0.01 [facility] Comment on above: Order Comment: Speci men Type: BLOOD SPECIMENOrdering Facility: [facility] Address: [address] Performed By: #### 5 8410-2 ####[facility] [id number] [place] [address] [place] Platelet mean volume (Bld) [Entitic vol] 9.8 fL Normal 9.0-12.7 [facility] Comment on above: Order Comment: Speci men Type: BLOOD SPECIMENOrdering Facility: [facility] Address: [address] [place], [place] [address] Performed By: #### 5 8410-2 ####[facility] LABIA [id number] [place] [address] [place] Platelets (Bld) [#/Vol] 413 10*3/uL High 150-400 [facility] Comment on above: Order Comment: Speci men Type: BLOOD SPECIMENOrdering Facility: [facility] Address: [address] [place] [address] Performed By: #### 5 8410-2 ####[facility] [id number] [place] [address] [place] RBC (Bld) [#/Vol] 3.08 10*6/uL Low 4.20-6.00 [facility] Comment on above: Order Comment: Speci men Type: BLOOD SPECIMENOrdering Facility: [facility] Address: [address] [place] [address] Performed By: #### 5 8410-2 ####[facility] [id number] [place] [address] [place] WBC (Bld) [#/Vol] 10.69 10*3/uL Normal 3.70-11.00 [facility] Comment on above: Order Comment: Speci men Type: BLOOD SPECIMENOrdering Facility: [facility] Address: [address] [place] [address] Performed By: #### 5 8410-2 ####[facility] [id number] [place] [address] [place] CONSULT PROGon 01-30-2023 CONSULT PROG Normal [facility] CT FEMUR WO IVCON LTon 01-30 CT FEMUR WO IVCON LT Normal [facility] CT PELVIS ORTHO WO IVCONon 0 01-30-2023 CT PELVIS ORTHO WO IVCON Normal [facility] CT TIB-FIB WO IVCON LTon CT TIB-FIB WO IVCON LT Normal [facility] Comprehensive metabolic 2000 panelon 01-30-2023 Albumin [Mass/Vol] 2.5 g/dL Low 3.9-4.9 [facility] Comment on above: Order Comment: Speci men Type: BLOOD SPECIMENOrdering Facility: [facility] Address: [address] [place] [address] Performed By: #### 2 4323-8 ####[facility] LABCLIA [id number] [facility] [address] [place] ALP [Catalytic activity/Vol] 173 U/L High 38-113 [facility] Comment on above: Order Comment: Speci men Type: BLOOD SPECIMENOrdering Facility: [facility] Address: [address] [place] [address] Performed By: #### 2 4323-8 ####[facility] LABCLIA [id number] [place] [address] [place] ALT [Catalytic activity/Vol] 142 U/L High 10-54 [facility] Comment on above: Order Comment: Speci men Type: BLOOD SPECIMENOrdering Facility: [facility] Address: [address] [place] [address] Performed By: #### 2 4323-8 ####[facility] LABCLIA [id number] [facility] [address] [place] Anion gap [Moles/Vol] 10 mmol/L Normal 9-18 [facility] Comment on above: Order Comment: Speci men Type: BLOOD SPECIMENOrdering Facility: [facility] Address: [address] [address] Performed By: #### 2 4323-8 ####[facility] LABCLIA [id number] [place] [address] [place] AST [Catalytic activity/Vol] 240 U/L High 14-40 [facility] Comment on above: Order Comment: Speci men Type: BLOOD SPECIMENOrdering Facility: [facility] Address: [address] [place] [address] Performed By: #### 2 4323-8 ####[facility] LABCLIA [id number] [place] [address] [place] Bilirubin [Mass/Vol] 0.3 mg/dL Normal 0.2-1.3 [facility] Comment on above: Order Comment: Speci men Type: BLOOD SPECIMENOrdering Facility: [facility] Address: [address] Performed By: #### 2 4323-8 ####[facility] LABCLIA [id number] [place] [address] [place] Calcium [Mass/Vol] 7.6 mg/dL Low 8.5-10.2 [facility] Comment on above: Order Comment: Speci men Type: BLOOD SPECIMENOrdering Facility: [facility] Address: [address] [place], [place] [address] Performed By: #### 2 4323-8 ####[facility] LABCLIA [id number] [place] [address] [place] Chloride [Moles/Vol] 106 mmol/L High 97-105 [facility] Comment on above: Order Comment: Speci men Type: BLOOD SPECIMENOrdering Facility: [facility] Address: [address] Performed By: #### 2 4323-8 ####[facility] LABCLIA [id number] [place] [address] [place] CO2 [Moles/Vol] 21 mmol/L Low 22-30 [facility] Comment on above: Order Comment: Speci men Type: BLOOD SPECIMENOrdering Facility: [facility] Address: [address] [place], [place] [address] Performed By: #### 2 4323-8 ####[facility] LABCLIA [id number] [place] [address] [place] Creatinine [Mass/Vol] 1.20 mg/dL Normal 0.73-1.22 [facility] Comment on above: Order Comment: Alden padilla Type: BLOOD SPECIMENOrdering Facility: [facility] Address: [address] [address] Performed By: #### 2 4323-8 ####[facility] LABCLIA [id number] [address] ESTIMATED GLOMERULAR FILTRATION RATE 70 mL/min/1.73m??? Normal >=60 [facility] Comment on above: Order Comment: Alden padilla Type: BLOOD SPECIMENOrdering Facility: [facility] Address: [address] [address] Result Comment: Veronica mated Glomerular Filtration Rate [...] actual GFR. Performed By: #### 2 4323-8 ####[facility] LABCLIA [id number] [address] [place] Glucose [Mass/Vol] 121 mg/dL High 74-99 [facility] Comment on above: Order Comment: Alden padilla Type: BLOOD SPECIMENOrdering Facility: [facility] Address: [address] [address] Result Comment: The [place] [employer] (ADA) provides guidance for cutoff [...] Standards of Medical Care in Diabetes 2016, [place] [employer]. Diabetes Care. 2016.39(Suppl 1). Performed By: #### 2 4323-8 ####[facility] LABCLIA [id number] [place] [address] [place] Potassium [Moles/Vol] 4.5 mmol/L Normal 3.7-5.1 [facility] Comment on above: Order Comment: Speci men Type: BLOOD SPECIMENOrdering Facility: [facility] Address: [address] [address] Performed By: #### 2 4323-8 ####[facility] LABCLIA [id number] [place] [address] [place] Protein [Mass/Vol] 5.9 g/dL Low 6.3-8.0 [facility] Comment on above: Order Comment: Speci men Type: BLOOD SPECIMENOrdering Facility: [facility] Address: [address] Performed By: #### 2 4323-8 ####[facility] LABCLIA [id number] [place] [address] [place] Sodium [Moles/Vol] 137 mmol/L Normal 136-144 [facility] Comment on above: Order Comment: Speci men Type: BLOOD SPECIMENOrdering Facility: [facility] Address: [address] Performed By: #### 2 4323-8 ####[facility] LABCLIA [id number] [place] [address] [place] Urea nitrogen [Mass/Vol] 24 mg/dL Normal 9-24 [facility] Comment on above: Order Comment: Speci men Type: BLOOD SPECIMENOrdering Facility: [facility] Address: [address] Performed By: #### 2 4323-8 ####[facility] LABCLIA [id number] [address] [place] TYPE + SCREENon 01-30-2023 ABO A Normal [facility] Comment on above: Order Comment: Speci men Type: BLOOD SPECIMENOrdering Facility: [facility] Address: [address] [place] [address] Performed By: #### T SCR ####CC MAIN BLOOD BANKCLIA [id number] OF [facility] HISTORICAL AB SCR STATUS Negative Normal [facility] Comment on above: Order Comment: Speci men Type: BLOOD SPECIMENOrdering Facility: [facility] Address: [address] [place] [address] Performed By: #### T SCR ####CC MAIN BLOOD BANKCLIA [id number] [address] [place] Rh Nom (Bld) Positive Normal [facility] Comment on above: Order Comment: Speci men Type: BLOOD SPECIMENOrdering Facility: [facility] Address: [address] [place] [address] Performed By: #### T SCR ####CC MAIN BLOOD BANKCLIA [id number] [address] [place] TYPE AND SCREEN EXPIRATION 02/02/2023 23:59 Normal [facility] Comment on above: Order Comment: Speci men Type: BLOOD SPECIMENOrdering Facility: [facility] Address: [address] [place] [address] Performed By: #### T SCR ####CC MAIN BLOOD BANKCLIA [id number] [address] [place] CBC panel Auto (Bld)on 01-29 Erythrocyte distribution width (RBC) [Ratio] 16.2 % High 11.5-15.0 [facility] Comment on above: Order Comment: Speci men Type: BLOOD SPECIMENOrdering Facility: [facility] Address: [address] [place] [address] Performed By: #### 5 8410-2 ####[facility] LABCLIA [id number] [place] [address] [place] Hematocrit (Bld) [Volume fraction] 33.5 % Low 39.0-51.0 [facility] Comment on above: Order Comment: Speci men Type: BLOOD SPECIMENOrdering Facility: [facility] Address: [address] Performed By: #### 5 8410-2 ####[facility] LABIA [id number] [place] [address] [place] Hemoglobin (Bld) [Mass/Vol] 10.7 g/dL Low 13.0-17.0 [facility] Comment on above: Order Comment: Speci men Type: BLOOD SPECIMENOrdering Facility: [facility] Address: [address] [place], [place] [address] Performed By: #### 5 8410-2 ####[facility] LABIA [id number] [place] [address] [place] MCH (RBC) [Entitic mass] 27.0 pg Normal 26.0-34.0 [facility] Comment on above: Order Comment: Speci men Type: BLOOD SPECIMENOrdering Facility: [facility] Address: [address] [place], [place] [address] Performed By: #### 5 8410-2 ####[facility] LABIA [id number] [place] [address] [place] MCHC (RBC) [Mass/Vol] 31.9 g/dL Normal 30.5-36.0 [facility] Comment on above: Order Comment: Speci men Type: BLOOD SPECIMENOrdering Facility: [facility] Address: [address] [place], [place] [address] Performed By: #### 5 8410-2 ####[facility] LABCLIA [id number] [place] [address] [place] MCV (RBC) [Entitic vol] 84.6 fL Normal 80.0-100.0 [facility] Comment on above: Order Comment: Speci men Type: BLOOD SPECIMENOrdering Facility: [facility] Address: [address] [place], [place] [address] Performed By: #### 5 8410-2 ####[facility] LABIA [id number] [place] [address] [place] Nucleated RBC (Bld) [#/Vol] 10*3/uL Normal <0.01 [facility] Comment on above: Order Comment: Speci men Type: BLOOD SPECIMENOrdering Facility: [facility] Address: [address] [place], [place] [address] Performed By: #### 5 8410-2 ####[facility] LABIA [id number] [place] [address] [place] Platelet mean volume (Bld) [Entitic vol] 10.7 fL Normal 9.0-12.7 [facility] Comment on above: Order Comment: Speci men Type: BLOOD SPECIMENOrdering Facility: [facility] Address: [address] [place], [place] [address] Performed By: #### 5 8410-2 ####[facility] LABIA [id number] [place] [address] [place] Platelets (Bld) [#/Vol] 354 10*3/uL Normal 150-400 [facility] Comment on above: Order Comment: Speci men Type: BLOOD SPECIMENOrdering Facility: [facility] Address: [address] [place], [place] [address] Performed By: #### 5 8410-2 ####[facility] LABIA [id number] [place] [address] [place] RBC (Bld) [#/Vol] 3.96 10*6/uL Low 4.20-6.00 [facility] Comment on above: Order Comment: Speci men Type: BLOOD SPECIMENOrdering Facility: [facility] Address: [address] [place], [place] [address] Performed By: #### 5 8410-2 ####[facility] LABCLIA [id number] [place] [address] [place] WBC (Bld) [#/Vol] 14.66 10*3/uL High 3.70-11.00 [facility] Comment on above: Order Comment: Speci men Type: BLOOD SPECIMENOrdering Facility: [facility] Address: [address] [place], [place] [address] Performed By: #### 5 8410-2 ####[facility] LABCLIA [id number] [place] [address] [place] CONSULTon 01-29-2023 CONSULT Normal [facility] CONSULT PROGon 01-29-2023 CONSULT PROG Normal [facility] Comprehensive metabolic 2000 panelon 01-29-2023 Albumin [Mass/Vol] 2.4 g/dL Low 3.9-4.9 [facility] Comment on above: Order Comment: Speci men Type: BLOOD SPECIMENOrdering Facility: [facility] Address: [address] Performed By: #### 2 4323-8 ####[facility] LABCLIA [id number] [place] [address] [place] ALP [Catalytic activity/Vol] 220 U/L High 38-113 [facility] Comment on above: Order Comment: Speci men Type: BLOOD SPECIMENOrdering Facility: [facility] Address: [address] [place], [place] [address] Performed By: #### 2 4323-8 ####[facility] LABCLIA [id number] [place] [address] [place] ALT [Catalytic activity/Vol] 34 U/L Normal 10-54 [facility] Comment on above: Order Comment: Speci men Type: BLOOD SPECIMENOrdering Facility: [facility] Address: [address] [place] [address] Performed By: #### 2 4323-8 ####[facility] LABCLIA [id number] [place] [address] [place] Anion gap [Moles/Vol] 11 mmol/L Normal 9-18 [facility] Comment on above: Order Comment: Speci men Type: BLOOD SPECIMENOrdering Facility: [facility] Address: [address] [address] Performed By: #### 2 4323-8 ####[facility] LABCLIA [id number] [place] [address] [place] AST [Catalytic activity/Vol] 43 U/L High 14-40 [facility] Comment on above: Order Comment: Speci men Type: BLOOD SPECIMENOrdering Facility: [facility] Address: [address] Performed By: #### 2 4323-8 ####[facility] LABCLIA [id number] [place] [address] [place] Bilirubin [Mass/Vol] 0.6 mg/dL Normal 0.2-1.3 [facility] Comment on above: Order Comment: Speci men Type: BLOOD SPECIMENOrdering Facility: [facility] Address: [address] Performed By: #### 2 4323-8 ####[facility] LABCLIA [id number] [place] [address] [place] Calcium [Mass/Vol] 7.5 mg/dL Low 8.5-10.2 [facility] Comment on above: Order Comment: Speci men Type: BLOOD SPECIMENOrdering Facility: [facility] Address: [address] Performed By: #### 2 4323-8 ####[facility] LABCLIA [id number] [place] [address] [place] Chloride [Moles/Vol] 103 mmol/L Normal 97-105 [facility] Comment on above: Order Comment: Speci men Type: BLOOD SPECIMENOrdering Facility: [facility] Address: [address] [place] [address] Performed By: #### 2 4323-8 ####[facility] LABCLIA [id number] [place] [address] [place] CO2 [Moles/Vol] 22 mmol/L Normal 22-30 [facility] Comment on above: Order Comment: Speci men Type: BLOOD SPECIMENOrdering Facility: [facility] Address: [address] [place] [address] Performed By: #### 2 4323-8 ####[facility] LABCLIA [id number] [address] [place] Creatinine [Mass/Vol] 1.02 mg/dL Normal 0.73-1.22 [facility] Comment on above: Order Comment: Speci men Type: BLOOD SPECIMENOrdering Facility: [facility] Address: [address] [place] [address] Performed By: #### 2 4323-8 ####[facility] LABIA [id number] [address] OF [facility] ESTIMATED GLOMERULAR FILTRATION RATE 85 mL/min/1.73m??? Normal >=60 [facility] Comment on above: Order Comment: Speci men Type: BLOOD SPECIMENOrdering Facility: [facility] Address: [address] [place] [address] Result Comment: Veronica mated Glomerular Filtration Rate [...] actual GFR. Performed By: #### 2 4323-8 ####[facility] LABIA [id number] [place] [address] [place] Glucose [Mass/Vol] 92 mg/dL Normal 74-99 [facility] Comment on above: Order Comment: Speci men Type: BLOOD SPECIMENOrdering Facility: [facility] Address: [address] [address] Result Comment: The [place] [employer] (ADA) provides guidance for cutoff [...] Standards of Medical Care in Diabetes 2016, [place] [employer]. Diabetes Care. 2016.39(Suppl 1). Performed By: #### 2 4323-8 ####[facility] LABIA [id number] [place] [address] [place] Potassium [Moles/Vol] 5.2 mmol/L High 3.7-5.1 [facility] Comment on above: Order Comment: Speci men Type: BLOOD SPECIMENOrdering Facility: [facility] Address: [address] [id number] Performed By: #### 2 4323-8 ####[facility] [id number] [place] [address] [place] Protein [Mass/Vol] 6.1 g/dL Low 6.3-8.0 [facility] Comment on above: Order Comment: Speci men Type: BLOOD SPECIMENOrdering Facility: [facility] Address: [address] [address] Performed By: #### 2 4323-8 ####[facility] LABCLIA [id number] [place] [address] [place] Sodium [Moles/Vol] 136 mmol/L Normal 136-144 [facility] Comment on above: Order Comment: Speci men Type: BLOOD SPECIMENOrdering Facility: [facility] Address: [address] [place] [address] Performed By: #### 2 4323-8 ####[facility] LABIA [id number] [place] [address] [place] Urea nitrogen [Mass/Vol] 15 mg/dL Normal 9-24 [facility] Comment on above: Order Comment: Cecilyi men Type: BLOOD SPECIMENOrdering Facility: [facility] Address: [address] [place] [address] Performed By: #### 2 4323-8 ####[facility] LABIA [id number] [place] [address] [place] NURSING PROGon 01-29-2023 NURSING PROG Normal [facility] PT panel Coag (PPP)on 2022 INR Coag (PPP) [Relative time] 1.0 {INR} Normal 0.9-1.3 [facility] Comment on above: Order Comment: Speci men Type: BLOOD SPECIMENOrdering Facility: [facility] Address: [address] [place] [address] Result Comment: Lisandra min K Antagonist (VKA) Therapeutic Range: INR 2 to 3 (Target INR of 2.5)Note: For patients treated with VKA drugs, such as warfarin, the [place] [employer] 2012 Guideline recommends [...] of 3).Rico GH, et al. Chest 2012, 141:7S-47SZen RA, et al. [facility] 2017, 70: 252-289 Performed By: #### 3 4528-0 ####[facility] LABCLIA [id number] [place] [address] [place] PT Coag (PPP) [Time] 10.1 s Normal 9.7-13.0 [facility] Comment on above: Order Comment: Speci men Type: BLOOD SPECIMENOrdering Facility: [facility] Address: [address] [address] Performed By: #### 3 4528-0 ####[facility] LABCLIA [id number] [place] [address] [place] US LEG VEIN DVT EBONY VAS LABo n 01-29-2023 US LEG VEIN DVT EBONY VAS LAB Normal [facility] ANES POSTPROC EVALon 023 ANES POSTPROC EVAL Normal [facility] ANES PRE-OPon 01-28-2023 ANES PRE-OP Normal [facility] ARTERIAL BLOOD GASESon 01-28 Base deficit (BldA) [Moles/Vol] -3 mmol/L Low -2-0 [facility] Comment on above: Order Comment: Speci men Type: ARTERIAL BLOOD SPECIMENOrdering Facility: [facility] Address: [address] [address] Performed By: #### A LLBG ####[facility] LABCLIA [id number] [place] [address] [place] Calcium.ionized (Bld) [Mass/Vol] 1.13 mmol/L Normal 1.08-1.30 [facility] Comment on above: Order Comment: Speci men Type: ARTERIAL BLOOD SPECIMENOrdering Facility: [facility] Address: [address] [address] Performed By: #### A LLBG ####[facility] LAB[facility] [id number] [place] [address] [place] Calcium.ionized adjusted to pH 7.4 (BldA) [Moles/Vol] 1.08 mmol/L Normal 1.08-1.30 [facility] Comment on above: Order Comment: Speci men Type: ARTERIAL BLOOD SPECIMENOrdering Facility: [facility] Address: [address] [address] Performed By: #### A LLBG ####[facility] [id number] [address] [place] Carboxyhemoglobin (BldA) [Mass fraction] 1.4 % Normal 0.0-2.0 [facility] Comment on above: Order Comment: Speci men Type: ARTERIAL BLOOD SPECIMENOrdering Facility: [facility] Address: [address] [address] Result Comment: Carb oxyhemoglobin Reference Range for Smokers: 2.0-8.0% Performed By: #### A LLBG ####[facility] [id number] [place] [address] [place] CO2 (Bld) [Partial pressure] 46 mm Hg Normal 36-46 [facility] Comment on above: Order Comment: Speci men Type: ARTERIAL BLOOD SPECIMENOrdering Facility: [facility] Address: [address] Performed By: #### A LLBG ####[facility] [id number] [place] [address] [place] CO2 [Moles/Vol] 24 mmol/L Normal 22-28 [facility] Comment on above: Order Comment: Speci men Type: ARTERIAL BLOOD SPECIMENOrdering Facility: [facility] Address: [address] Performed By: #### A LLBG ####[facility] LABCLIA [id number] [address] [place] CO2 adjusted to patient's actual temperature (Bld) [Partial pressure] 46 mmHg Normal 36-46 [facility] Comment on above: Order Comment: Speci men Type: ARTERIAL BLOOD SPECIMENOrdering Facility: [facility] Address: [address] [place], [place] [address] Performed By: #### A LLBG ####[facility] LABCLIA [id number] [place] [address] [place] Glucose [Mass/Vol] 119 mg/dL High 60-105 [facility] Comment on above: Order Comment: Speci men Type: ARTERIAL BLOOD SPECIMENOrdering Facility: [facility] Address: [address] [place], [place] [address] Performed By: #### A LLBG ####[facility] LABCLIA [id number] [place] [address] [place] HCO3 (Bld) [Moles/Vol] 23 mmol/L Normal 22-26 [facility] Comment on above: Order Comment: Speci men Type: ARTERIAL BLOOD SPECIMENOrdering Facility: [facility] Address: [address] [place] [phone] Performed By: #### A LLBG ####[facility] LABCLIA [id number] [place] [address] [place] Hematocrit (Bld) [Volume fraction] 29.6 % Low 39.0-51.0 [facility] Comment on above: Order Comment: Speci men Type: ARTERIAL BLOOD SPECIMENOrdering Facility: [facility] Address: [address] [place] [address] Performed By: #### A LLBG ####[facility] LABCLIA [id number] [place] [address] [place] Hemoglobin (Bld) [Mass/Vol] 9.6 g/dL Low 13.0-17.0 [facility] Comment on above: Order Comment: Speci men Type: ARTERIAL BLOOD SPECIMENOrdering Facility: [facility] Address: [address] Performed By: #### A LLBG ####[facility] LABIA [id number] [place] [address] [place] Lactate [Moles/Vol] 0.9 mmol/L Normal 0.5-2.2 [facility] Comment on above: Order Comment: Speci men Type: ARTERIAL BLOOD SPECIMENOrdering Facility: [facility] Address: [address] Performed By: #### A LLBG ####[facility] LABIA [id number] [address] [place] Methemoglobin (Bld) [Mass fraction] 1.0 % Normal 0.0-1.5 [facility] Comment on above: Order Comment: Speci men Type: ARTERIAL BLOOD SPECIMENOrdering Facility: [facility] Address: [address] [place], [place] [address] Performed By: #### A LLBG ####[facility] LABIA [id number] [address] [place] Oxygen (Bld) [Partial pressure] 122 mm Hg High 85-95 [facility] Comment on above: Order Comment: Speci men Type: ARTERIAL BLOOD SPECIMENOrdering Facility: [facility] Address: [address] Performed By: #### A LLBG ####[facility] LABCLIA [id number] [place] [address] [place] Oxygen adjusted to patient's actual temperature (Bld) [Partial pressure] 122 mmHg High 85-95 [facility] Comment on above: Order Comment: Speci men Type: ARTERIAL BLOOD SPECIMENOrdering Facility: [facility] Address: [address] [place] [phone] Performed By: #### A LLBG ####[facility] LABCLIA [id number] [place] [address] [place] Oxyhemoglobin (BldA) [Mass fraction] 96 % Normal 95-98 [facility] Comment on above: Order Comment: Speci men Type: ARTERIAL BLOOD SPECIMENOrdering Facility: [facility] Address: [address] [place], [place] [address] Performed By: #### A LLBG ####[facility] LABCLIA [id number] [place] [address] [place] pH (Bld) 7.31 [pH] Low 7.35-7.45 [facility] Comment on above: Order Comment: Speci men Type: ARTERIAL BLOOD SPECIMENOrdering Facility: [facility] Address: [address] [place], [place] [address] Performed By: #### A LLBG ####[facility] LABCLIA [id number] [place] [address] [place] pH adjusted to patient's actual temperature (Bld) 7.31 Low 7.35-7.45 [facility] Comment on above: Order Comment: Speci men Type: ARTERIAL BLOOD SPECIMENOrdering Facility: [facility] Address: [address] [place] [phone] Performed By: #### A LLBG ####[facility] LABCLIA [id number] [place] [address] [place] Potassium [Moles/Vol] 4.5 mmol/L Normal 3.5-5.0 [facility] Comment on above: Order Comment: Speci men Type: ARTERIAL BLOOD SPECIMENOrdering Facility: [facility] Address: [address] Performed By: #### A LLBG ####[facility] LABIA [id number] [place] [address] [place] Sodium [Moles/Vol] 139 mmol/L Normal 136-144 [facility] Comment on above: Order Comment: Speci men Type: ARTERIAL BLOOD SPECIMENOrdering Facility: [facility] Address: [address] [place], [place] [address] Performed By: #### A LLBG ####[facility] LABCLIA [id number] [address] [place] Base excess Calc (Bld) [Moles/Vol] 0 mmol/L Normal 0-2 [facility] Comment on above: Order Comment: Speci men Type: ARTERIAL BLOOD SPECIMENOrdering Facility: [facility] Address: [address] [place], [place] [address] Performed By: #### A LLBG ####[facility] LABIA [id number] [address] [place] Calcium.ionized (Bld) [Mass/Vol] 1.03 mmol/L Low 1.08-1.30 [facility] Comment on above: Order Comment: Speci men Type: ARTERIAL BLOOD SPECIMENOrdering Facility: [facility] Address: [address] [place], [place] [address] Performed By: #### A LLBG ####[facility] LABIA [id number] [address] [place] Calcium.ionized adjusted to pH 7.4 (BldA) [Moles/Vol] 1.01 mmol/L Low 1.08-1.30 [facility] Comment on above: Order Comment: Speci men Type: ARTERIAL BLOOD SPECIMENOrdering Facility: [facility] Address: [address] [place], [place] [address] Performed By: #### A LLBG ####[facility] LABCLIA [id number] [place] [address] [place] Carboxyhemoglobin (BldA) [Mass fraction] 2.0 % Normal 0.0-2.0 [facility] Comment on above: Order Comment: Speci men Type: ARTERIAL BLOOD SPECIMENOrdering Facility: [facility] Address: [address] Result Comment: Carb oxyhemoglobin Reference Range for Smokers: 2.0-8.0% Performed By: #### A LLBG ####[facility] LABCLIA [id number] [place] [address] [place] CO2 (Bld) [Partial pressure] 44 mm Hg Normal 36-46 [facility] Comment on above: Order Comment: Speci men Type: ARTERIAL BLOOD SPECIMENOrdering Facility: [facility] Address: [address] [address] Performed By: #### A LLBG ####[facility] LABCLIA [id number] [place] [address] [place] CO2 [Moles/Vol] 26 mmol/L Normal 22-28 [facility] Comment on above: Order Comment: Speci men Type: ARTERIAL BLOOD SPECIMENOrdering Facility: [facility] Address: [address] Performed By: #### A LLBG ####[facility] LABCLIA [id number] [place] [address] [place] CO2 adjusted to patient's actual temperature (Bld) [Partial pressure] 44 mmHg Normal 36-46 [facility] Comment on above: Order Comment: Speci men Type: ARTERIAL BLOOD SPECIMENOrdering Facility: [facility] Address: [address] Performed By: #### A LLBG ####[facility] LABCLIA [id number] [place] [address] [place] Glucose [Mass/Vol] 101 mg/dL Normal 60-105 [facility] Comment on above: Order Comment: Speci men Type: ARTERIAL BLOOD SPECIMENOrdering Facility: [facility] Address: [address] Performed By: #### A LLBG ####[facility] LABCLIA [id number] [place] [address] [place] HCO3 (Bld) [Moles/Vol] 24 mmol/L Normal 22-26 [facility] Comment on above: Order Comment: Speci men Type: ARTERIAL BLOOD SPECIMENOrdering Facility: [facility] Address: [address] [place] [address] Performed By: #### A LLBG ####[facility] LABCLIA [id number] [place] [address] [place] Hematocrit (Bld) [Volume fraction] 24.5 % Low 39.0-51.0 [facility] Comment on above: Order Comment: Speci men Type: ARTERIAL BLOOD SPECIMENOrdering Facility: [facility] Address: [address] [place] [address] Performed By: #### A LLBG ####[facility] LABIA [id number] [place] [address] [place] Hemoglobin (Bld) [Mass/Vol] 7.9 g/dL Low 13.0-17.0 [facility] Comment on above: Order Comment: Speci men Type: ARTERIAL BLOOD SPECIMENOrdering Facility: [facility] Address: [address] [place] [address] Performed By: #### A LLBG ####[facility] LABIA [id number] [place] [address] [place] Lactate [Moles/Vol] 0.7 mmol/L Normal 0.5-2.2 [facility] [facility] Comment on above: Order Comment: Speci men Type: ARTERIAL BLOOD SPECIMENOrdering Facility: [facility] Address: [address] [place] [address] Performed By: #### A LLBG ####[facility] LABIA [id number] [place] [address] [place] Methemoglobin (Bld) [Mass fraction] 0.9 % Normal 0.0-1.5 [facility] Comment on above: Order Comment: Speci men Type: ARTERIAL BLOOD SPECIMENOrdering Facility: [facility] Address: [address] Performed By: #### A LLBG ####[facility] LABCLIA [id number] [place] [address] [place] Oxygen (Bld) [Partial pressure] 144 mm Hg High 85-95 [facility] Comment on above: Order Comment: Speci men Type: ARTERIAL BLOOD SPECIMENOrdering Facility: [facility] Address: [address] Performed By: #### A LLBG ####[facility] LABCLIA [id number] [place] [address] [place] Oxygen adjusted to patient's actual temperature (Bld) [Partial pressure] 144 mmHg High 85-95 [facility] Comment on above: Order Comment: Speci men Type: ARTERIAL BLOOD SPECIMENOrdering Facility: [facility] Address: [address] [place], [place] [address] Performed By: #### A LLBG ####[facility] LABCLIA [id number] [place] [address] [place] Oxyhemoglobin (BldA) [Mass fraction] 96 % Normal 95-98 [facility] Comment on above: Order Comment: Speci men Type: ARTERIAL BLOOD SPECIMENOrdering Facility: [facility] Address: [address] Performed By: #### A LLBG ####[facility] LABCLIA [id number] [place] [address] [place] pH (Bld) 7.36 [pH] Normal 7.35-7.45 [facility] Comment on above: Order Comment: Speci men Type: ARTERIAL BLOOD SPECIMENOrdering Facility: [facility] Address: [address] [place] [address] Performed By: #### A LLBG ####[facility] LABCLIA [id number] [place] [address] [place] pH adjusted to patient's actual temperature (Bld) 7.36 Normal 7.35-7.45 [facility] Comment on above: Order Comment: Speci men Type: ARTERIAL BLOOD SPECIMENOrdering Facility: [facility] Address: [address] [place] [address] Performed By: #### A LLBG ####[facility] LABIA [id number] [place] [address] [place] Potassium [Moles/Vol] 4.3 mmol/L Normal 3.5-5.0 [facility] Comment on above: Order Comment: Speci men Type: ARTERIAL BLOOD SPECIMENOrdering Facility: [facility] Address: [address] [place] [address] Performed By: #### A LLBG ####[facility] LABIA [id number] [place] [address] [place] Sodium [Moles/Vol] 140 mmol/L Normal 136-144 [facility] Comment on above: Order Comment: Speci men Type: ARTERIAL BLOOD SPECIMENOrdering Facility: [facility] Address: [address] [place] [address] Performed By: #### A LLBG ####[facility] LABIA [id number] [place] [address] [place] BRIEF OP NOTon 01-28-2023 BRIEF OP NOT Normal [facility] Bacteria Spec Anaerobe Culto n 01-28-2023 Bacteria identified Anaer cx Nom (Unsp spec) Negative Normal [facility] Comment on above: Performed By: #### 1 1475-1, 82662-2, 635-3 ####[facility] LABCLIA [id number] [address] [id number] [address] [place] Bacteria identified Anaer cx Nom (Unsp spec) Abnormal [facility] Comment on above: Performed By: #### 1 1475-1, 635-3, 20161-6 ####[facility] LABCLIA [id number] [address] [address] [place] Bacteria identified Anaer cx Nom (Unsp spec) Negative Normal [facility] Comment on above: Performed By: #### 1 1475-1, 82515-5, 635-3 ####[facility] LABCLIA [id number] [address] [address] [place] Bacteria identified Anaer cx Nom (Unsp spec) Negative Normal [facility] Comment on above: Performed By: #### 1 1475-1, 26146-7, 635-3 ####[facility] LABCLIA [id number] [facility] [address] [address] [place] Bacteria identified Anaer cx Nom (Unsp spec) Negative Normal [facility] Comment on above: Performed By: #### 1 1475-1, 27206-3, 635-3 ####[facility] LABCLIA [id number] [address] [address] [place] Bacteria Tiss Culton 03-17-2 023 Bacteria identified Cx Nom (Tiss) CULTURE, TISSUE: No growth GRAM STAIN: No organisms seen No Polymorphonuclear Leukocytes Normal [facility] Comment on above: Performed By: #### 1 1475-1, 71231-8, 635-3 ####[facility] LABCLIA [id number] [facility] [address] [address] [place] Bacteria identified Cx Nom (Tiss) CULTURE, TISSUE: No growth GRAM STAIN: No organisms seen Rare Polymorphonuclear leukocytes Normal [facility] Comment on above: Performed By: #### 1 1475-1, 635-3, 48964-1 ####[facility] LABCLIA [id number] [facility] [place] Bacteria identified Cx Nom (Tiss) CULTURE, TISSUE: No growth GRAM STAIN: No organisms seen No Polymorphonuclear Leukocytes Normal [facility] Comment on above: Performed By: #### 1 1475-1, 70855-1, 635-3 ####[facility] LABCLIA [id number] [place] [address] [place] Bacteria identified Cx Nom (Tiss) CULTURE, TISSUE: No growth GRAM STAIN: No organisms seen No Polymorphonuclear Leukocytes Normal [facility] Comment on above: Performed By: #### 1 1475-1, 83412-4, 635-3 ####[facility] LABCLIA [id number] [place] [address] [place] Bacteria identified Cx Nom (Tiss) CULTURE, TISSUE: No growth GRAM STAIN: No organisms seen No Polymorphonuclear Leukocytes Normal [facility] Comment on above: Performed By: #### 1 1475-1, 02780-6, 635-3 ####[facility] LABCLIA [id number] [place] [address] [place] CASE MANAGEMon 01-28-2023 CASE MANAGEM Normal [facility] CBC panel Auto (Bld)on 01-28 Erythrocyte distribution width (RBC) [Ratio] 15.9 % High 11.5-15.0 [facility] Comment on above: Order Comment: Speci men Type: BLOOD SPECIMENOrdering Facility: [facility] Address: [address] [place] [address] Performed By: #### 5 8410-2 ####[facility] LABCLIA [id number] [place] [address] [place] Hematocrit (Bld) [Volume fraction] 31.1 % Low 39.0-51.0 [facility] Comment on above: Order Comment: Speci men Type: BLOOD SPECIMENOrdering Facility: [facility] Address: [address] [place] [address] Performed By: #### 5 8410-2 ####[facility] LABIA [id number] [address] STATES OF [facility] Hemoglobin (Bld) [Mass/Vol] 10.1 g/dL Low 13.0-17.0 [facility] Comment on above: Order Comment: Speci men Type: BLOOD SPECIMENOrdering Facility: [facility] Address: [address] [place] [address] Performed By: #### 5 8410-2 ####[facility] LABIA [id number] [address] [place] MCH (RBC) [Entitic mass] 27.1 pg Normal 26.0-34.0 [facility] Comment on above: Order Comment: Speci men Type: BLOOD SPECIMENOrdering Facility: [facility] Address: [address] [place] [address] Performed By: #### 5 8410-2 ####[facility] [id number] [address] MCHC (RBC) [Mass/Vol] 32.5 g/dL Normal 30.5-36.0 [facility] Comment on above: Order Comment: Speci men Type: BLOOD SPECIMENOrdering Facility: [facility] Address: [address] [place], [place] [address] Performed By: #### 5 8410-2 ####[facility] LABIA [id number] [address] STATES OF [facility] MCV (RBC) [Entitic vol] 83.4 fL Normal 80.0-100.0 [facility] Comment on above: Order Comment: Speci men Type: BLOOD SPECIMENOrdering Facility: [facility] Address: [address] [place] [address] Performed By: #### 5 8410-2 ####[facility] [id number] [id number] [address] [place] Nucleated RBC (Bld) [#/Vol] 10*3/uL Normal <0.01 [facility] Comment on above: Order Comment: Speci men Type: BLOOD SPECIMENOrdering Facility: [facility] Address: [address] [place], [place] [address] Performed By: #### 5 8410-2 ####[facility] LABCLIA [id number] [place] [address] [place] Platelet mean volume (Bld) [Entitic vol] 10.0 fL Normal 9.0-12.7 [facility] Comment on above: Order Comment: Speci men Type: BLOOD SPECIMENOrdering Facility: [facility] Address: [address] [place], [place] [address] Performed By: #### 5 8410-2 ####[facility] LABCLIA [id number] [place] [address] [place] Platelets (Bld) [#/Vol] 313 10*3/uL Normal 150-400 [facility] Comment on above: Order Comment: Speci men Type: BLOOD SPECIMENOrdering Facility: [facility] Address: [address] [place], [place] [address] Performed By: #### 5 8410-2 ####[facility] LABIA [id number] [place] [address] [place] RBC (Bld) [#/Vol] 3.73 10*6/uL Low 4.20-6.00 [facility] Comment on above: Order Comment: Speci men Type: BLOOD SPECIMENOrdering Facility: [facility] Address: [address] [place], [place] [address] Performed By: #### 5 8410-2 ####[facility] LABCLIA [id number] [place] [address] [place] WBC (Bld) [#/Vol] 18.85 10*3/uL High 3.70-11.00 [facility] Comment on above: Order Comment: Speci men Type: BLOOD SPECIMENOrdering Facility: [facility] Address: [address] [place] [address] Performed By: #### 5 8410-2 ####[facility] LABIA [id number] [place] [address] [place] Erythrocyte distribution width (RBC) [Ratio] 17.4 % High 11.5-15.0 [facility] Comment on above: Order Comment: Speci men Type: BLOOD SPECIMENOrdering Facility: [facility] Address: [address] [place] [address] Performed By: #### 5 8410-2 ####[facility] LABIA [id number] [address] [place] Hematocrit (Bld) [Volume fraction] 25.0 % Low 39.0-51.0 [facility] Comment on above: Order Comment: Speci men Type: BLOOD SPECIMENOrdering Facility: [facility] Address: [address] [place] [address] Performed By: #### 5 8410-2 ####[facility] [id number] [address] [place] Hemoglobin (Bld) [Mass/Vol] 8.0 g/dL Low 13.0-17.0 [facility] Comment on above: Order Comment: Speci men Type: BLOOD SPECIMENOrdering Facility: [facility] Address: [address] Performed By: #### 5 8410-2 ####[facility] LABIA [id number] [place] [address] [place] MCH (RBC) [Entitic mass] 26.0 pg Normal 26.0-34.0 [facility] Comment on above: Order Comment: Speci men Type: BLOOD SPECIMENOrdering Facility: [facility] Address: [address] [place], [place] [address] Performed By: #### 5 8410-2 ####[facility] LABIA [id number] [address] STATES [facility] MCHC (RBC) [Mass/Vol] 32.0 g/dL Normal 30.5-36.0 [facility] Comment on above: Order Comment: Speci men Type: BLOOD SPECIMENOrdering Facility: [facility] Address: [address] [place], [place] [address] Performed By: #### 5 8410-2 ####[facility] LABIA [id number] [place] [address] [place] MCV (RBC) [Entitic vol] 81.2 fL Normal 80.0-100.0 [facility] Comment on above: Order Comment: Speci men Type: BLOOD SPECIMENOrdering Facility: [facility] Address: [address] [place], [place] [address] Performed By: #### 5 8410-2 ####[facility] [id number] [address] [place] Nucleated RBC (Bld) [#/Vol] 10*3/uL Normal <0.01 [facility] Comment on above: Order Comment: Speci men Type: BLOOD SPECIMENOrdering Facility: [facility] Address: [address] [place] [address] Performed By: #### 5 8410-2 ####[facility] LABIA [id number] [address] [place] Platelet mean volume (Bld) [Entitic vol] 10.7 fL Normal 9.0-12.7 [facility] Comment on above: Order Comment: Speci men Type: BLOOD SPECIMENOrdering Facility: [facility] Address: [address] [place], [place] [address] Performed By: #### 5 8410-2 ####[facility] LABIA [id number] [place] [address] [place] Platelets (Bld) [#/Vol] 304 10*3/uL Normal 150-400 [facility] Comment on above: Order Comment: Speci men Type: BLOOD SPECIMENOrdering Facility: [facility] Address: [address] [place] [address] Performed By: #### 5 8410-2 ####[facility] LABCLIA [id number] [place] [address] [place] RBC (Bld) [#/Vol] 3.08 10*6/uL Low 4.20-6.00 [facility] Comment on above: Order Comment: Speci men Type: BLOOD SPECIMENOrdering Facility: [facility] Address: [address] [place] [address] Performed By: #### 5 8410-2 ####[facility] LABCLIA [id number] [place] [address] [place] WBC (Bld) [#/Vol] 16.82 10*3/uL High 3.70-11.00 [facility] Comment on above: Order Comment: Speci men Type: BLOOD SPECIMENOrdering Facility: [facility] Address: [address] [place], [place] [address] Performed By: #### 5 8410-2 ####[facility] LABCLIA [id number] [place] [address] [place] CONSULT PROGon 01-28-2023 CONSULT PROG Normal [facility] CONSULT PROG Normal [facility] Comprehensive metabolic 2000 panelon 01-28-2023 Albumin [Mass/Vol] 2.0 g/dL Low 3.9-4.9 [facility] Comment on above: Order Comment: Speci men Type: BLOOD SPECIMENOrdering Facility: [facility] Address: [address] [place] [address] Performed By: #### 2 4323-8, 2777-1, 61618-4 ####[facility] LABCLIA [id number] [place] [address] [place] ALP [Catalytic activity/Vol] 286 U/L High 38-113 [facility] Comment on above: Order Comment: Speci men Type: BLOOD SPECIMENOrdering Facility: [facility] Address: [address] [place] [address] Performed By: #### 2 4323-8, 27705-14, ####[facility] LABCLIA [id number] [place] [address] [place] ALT [Catalytic activity/Vol] 40 U/L Normal 10-54 [facility] Comment on above: Order Comment: Speci men Type: BLOOD SPECIMENOrdering Facility: [facility] Address: [address] [place] [address] Performed By: #### 2 4323-8, 27705-14, ####[facility] LABCLIA [id number] [place] [address] [place] Anion gap [Moles/Vol] 9 mmol/L Normal 9-18 [facility] Comment on above: Order Comment: Speci men Type: BLOOD SPECIMENOrdering Facility: [facility] Address: [address] [place] [address] Performed By: #### 2 4323-8, 27705-14, ####[facility] LABCLIA [id number] [place] [address] [place] AST [Catalytic activity/Vol] 47 U/L High 14-40 [facility] Comment on above: Order Comment: Speci men Type: BLOOD SPECIMENOrdering Facility: [facility] Address: [address] [place], [place] [address] Performed By: #### 2 4323-8, 2771, ####[facility] LABCLIA [id number] [place] [address] [place] Bilirubin [Mass/Vol] 0.4 mg/dL Normal 0.2-1.3 [facility] Comment on above: Order Comment: Speci men Type: BLOOD SPECIMENOrdering Facility: [facility] Address: [address] [place] [address] Performed By: #### 2 4323-8, 2776-11, ####[facility] LABCLIA [id number] [place] [address] [place] Calcium [Mass/Vol] 7.0 mg/dL Low 8.5-10.2 [facility] Comment on above: Order Comment: Speci men Type: BLOOD SPECIMENOrdering Facility: [facility] Address: [address] [place] [address] Performed By: #### 2 4323-8, 27705-14, ####[facility] LABCLIA [id number] [place] [address] [place] Chloride [Moles/Vol] 105 mmol/L Normal 97-105 [facility] Comment on above: Order Comment: Speci men Type: BLOOD SPECIMENOrdering Facility: [facility] Address: [address] [place] [address] Performed By: #### 2 4323-8, 2776-11, ####[facility] LABCLIA [id number] [place] [address] [place] CO2 [Moles/Vol] 22 mmol/L Normal 22-30 [facility] Comment on above: Order Comment: Speci men Type: BLOOD SPECIMENOrdering Facility: [facility] Address: [address] [place], [place] [address] Performed By: #### 2 4323-8, 2776-11, ####[facility] LABCLIA [id number] [place] [id number] [place] Creatinine [Mass/Vol] 0.95 mg/dL Normal 0.73-1.22 [facility] Comment on above: Order Comment: Alden padilla Type: BLOOD SPECIMENOrdering Facility: [facility] Address: [address] [place] [id number] Performed By: #### 2 4323-8, 2776-11, ####[facility] LABCLIA [id number] [place] [address] [place] ESTIMATED GLOMERULAR FILTRATION RATE 92 mL/min/1.73m??? Normal >=60 [facility] Comment on above: Order Comment: Alden padilla Type: BLOOD SPECIMENOrdering Facility: [facility] Address: [address] [place] [id number] Result Comment: Veronica mated Glomerular Filtration Rate [...] GFR. Performed By: #### 2 4323-8, 2776-11, ####[facility] LABCLIA [id number] [place] [address] [place] Glucose [Mass/Vol] 105 mg/dL High 74-99 [facility] Comment on above: Order Comment: Alden padilla Type: BLOOD SPECIMENOrdering Facility: [facility] Address: [address] [place] [address] Result Comment: The [place] [employer] (ADA) provides guidance for cutoff [...] Standards of Medical Care in Diabetes 2016, [place] [employer]. Diabetes Care. 2016.39(Suppl 1). Performed By: #### 2 4323-8, 2776-11, ####[facility] LABCLIA [id number] [address] [address] [place] Potassium [Moles/Vol] 4.4 mmol/L Normal 3.7-5.1 [facility] Comment on above: Order Comment: Speci men Type: BLOOD SPECIMENOrdering Facility: [facility] Address: [address] [place] [id number] Performed By: #### 2 4323-8, 2776-11, ####[facility] LABCLIA [id number] [address] [address] [place] Protein [Mass/Vol] 5.8 g/dL Low 6.3-8.0 [facility] Comment on above: Order Comment: Speci men Type: BLOOD SPECIMENOrdering Facility: [facility] Address: [address] [place] [id number] Performed By: #### 2 4323-8, 2776-11, ####[facility] LABCLIA [id number] [address] [address] [place] Sodium [Moles/Vol] 136 mmol/L Normal 136-144 [facility] Comment on above: Order Comment: Speci men Type: BLOOD SPECIMENOrdering Facility: [facility] Address: [address] [place] [address] Performed By: #### 2 4323-8, 2776-11, ####[facility] LABCLIA [id number] [address] [address] [place] Urea nitrogen [Mass/Vol] 18 mg/dL Normal 9-24 [facility] Comment on above: Order Comment: Speci men Type: BLOOD SPECIMENOrdering Facility: [facility] Address: [place] [address] Performed By: #### 2 4323-8, 2776-11, ####[facility] LABCLIA [id number] [place] [id number] [place] Magnesium SerPl-mCncon 01-28 Magnesium [Mass/Vol] 1.9 mg/dL Normal 1.7-2.3 [facility] Comment on above: Order Comment: Speci men Type: BLOOD SPECIMENOrdering Facility: [facility] Address: [address] Performed By: #### 2 4323-8, 2776-11, ####[facility] LABCLIA [id number] [place] [address] [place] Microorganism Spec Culton Microorganism identified Cx Nom (Unsp spec) CULTURE, FUNGAL: No Fungus isolated after 28 days FUNGAL SMEAR: No fungus seen Normal [facility] Comment on above: Performed By: #### 1 1475-1, 72438-5, 635-3 ####[facility] LABCLIA [id number] [place] [address] [place] Microorganism identified Cx Nom (Unsp spec) CULTURE, AFB: No Acid Fast Bacilli isolated after 42 days AFB STAIN: No acid fast bacilli seen by flurochrome stain Normal [facility] Comment on above: Performed By: #### 1 1475-1, 64931-7, 635-3 ####[facility] LABCLIA [id number] [place] [id number] [place] Microorganism identified Cx Nom (Unsp spec) CULTURE, FUNGAL: No Fungus isolated after 28 days FUNGAL SMEAR: No fungus seen Normal [facility] Comment on above: Performed By: #### 1 1475-1, 635-3, 58591-4 ####[facility] LABCLIA [id number] [address] [address] [place] Microorganism identified Cx Nom (Unsp spec) CULTURE, AFB: No Acid Fast Bacilli isolated after 42 days AFB STAIN: No acid fast bacilli seen by flurochrome stain Normal [facility] Comment on above: Performed By: #### 1 1475-1, 635-3, 93732-1 ####[facility] LABCLIA [id number] [place] [id number] [place] Microorganism identified Cx Nom (Unsp spec) CULTURE, FUNGAL: No Fungus isolated after 28 days FUNGAL SMEAR: No fungus seen Normal [facility] Comment on above: Performed By: #### 1 1475-1, 10748-0, 635-3 ####[facility] LABCLIA [id number] [place] [id number] [place] Microorganism identified Cx Nom (Unsp spec) CULTURE, AFB: No Acid Fast Bacilli isolated after 42 days AFB STAIN: No acid fast bacilli seen by flurochrome stain Normal [facility] Comment on above: Performed By: #### 1 1475-1, 92628-6, 635-3 ####[facility] LABCLIA [id number] [address] [address] [place] Microorganism identified Cx Nom (Unsp spec) CULTURE, FUNGAL: No Fungus isolated after 28 days FUNGAL SMEAR: No fungus seen Normal [facility] Comment on above: Performed By: #### 1 1475-1, 87062-0, 635-3 ####[facility] LABCLIA [id number] [address] [address] [place] Microorganism identified Cx Nom (Unsp spec) CULTURE, AFB: No Acid Fast Bacilli isolated after 42 days AFB STAIN: No acid fast bacilli seen by flurochrome stain Normal [facility] Comment on above: Performed By: #### 1 1475-1, 26677-2, 635-3 ####[facility] LABCLIA [id number] [address] Microorganism identified Cx Nom (Unsp spec) CULTURE, FUNGAL: No Fungus isolated after 28 days FUNGAL SMEAR: No fungus seen Normal [facility] Comment on above: Performed By: #### 1 1475-1, 83796-3, 635-3 ####[facility] LABIA [id number] [address] Microorganism identified Cx Nom (Unsp spec) CULTURE, AFB: No Acid Fast Bacilli isolated after 42 days AFB STAIN: No acid fast bacilli seen by flurochrome stain Normal [facility] Comment on above: Performed By: #### 1 1475-1, 29281-2, 635-3 ####[facility] [id number] [address] OF [facility] OPERATIVE NOon 01-28-2023 OPERATIVE NO Normal [facility] PT panel Coag (PPP)on 2022 INR Coag (PPP) [Relative time] 1.0 {INR} Normal 0.9-1.3 [facility] Comment on above: Order Comment: Speci men Type: BLOOD SPECIMENOrdering Facility: [facility] Address: [address] [place], [place] [address] Result Comment: Lisandra min K Antagonist (VKA) Therapeutic Range: INR 2 to 3 (Target INR of 2.5)Note: For patients treated with VKA drugs, such as warfarin, the [place] [employer] 2012 Guideline recommends [...] of 2.5 to 3.5 (target INR of 3).Guyatt GH, et al. Chest 2012, 141:7S-47SZen RA, et al. [facility] 2017, 70: 252-289 Performed By: #### 1 4979-9, 18780-6 ####[facility] LABCLIA [id number] [address] [address] [place] PT Coag (PPP) [Time] 9.9 s Normal 9.7-13.0 [facility] Comment on above: Order Comment: Speci men Type: BLOOD SPECIMENOrdering Facility: [facility] Address: [address] [place] [address] Performed By: #### 1 4979-9, 21565-6 ####[facility] LABCLIA [id number] [place] [id number] [place] [facility] Phosphate SerPl-mCncon 01-28 Phosphate [Mass/Vol] 3.0 mg/dL Normal 2.7-4.8 [facility] Comment on above: Order Comment: Speci men Type: BLOOD SPECIMENOrdering Facility: [facility] Address: [address] [place] [address] Performed By: #### 2 4323-8, 2777-1, 57365-0 ####[facility] LABIA [id number] [place] [id number] [place] THERAPY NTon 01-28-2023 THERAPY NT Normal [facility] aPTT PPPon 01-28-2023 aPTT Coag (PPP) [Time] 23.3 s Normal 23.0-32.4 [facility] Comment on above: Order Comment: Speci men Type: BLOOD SPECIMENOrdering Facility: [facility] Address: [address] [place], [place] [address] Performed By: #### 1 4979-9, 40377-9 ####[facility] LABIA [id number] [place] [id number] [place] CASE MANAGEMon 01-27-2023 CASE MANAGEM Normal [facility] CBC panel Auto (Bld)on 01-27 Erythrocyte distribution width (RBC) [Ratio] 17.2 % High 11.5-15.0 [facility] Comment on above: Order Comment: Speci men Type: BLOOD SPECIMENOrdering Facility: [facility] Address: [address] [place] [address] Performed By: #### 5 8410-2 ####[facility] LABIA [id number] [address] [place] Hematocrit (Bld) [Volume fraction] 27.1 % Low 39.0-51.0 [facility] Comment on above: Order Comment: Speci men Type: BLOOD SPECIMENOrdering Facility: [facility] Address: [address] [place] [address] Performed By: #### 5 8410-2 ####[facility] LABIA [id number] [address] [place] Hemoglobin (Bld) [Mass/Vol] 8.9 g/dL Low 13.0-17.0 [facility] Comment on above: Order Comment: Speci men Type: BLOOD SPECIMENOrdering Facility: [facility] Address: [address] [place] [address] Performed By: #### 5 8410-2 ####[facility] LABIA [id number] [place] [address] [place] MCH (RBC) [Entitic mass] 26.3 pg Normal 26.0-34.0 [facility] Comment on above: Order Comment: Speci men Type: BLOOD SPECIMENOrdering Facility: [facility] Address: [address] [place] [address] Performed By: #### 5 8410-2 ####[facility] LABIA [id number] [place] [address] [place] MCHC (RBC) [Mass/Vol] 32.8 g/dL Normal 30.5-36.0 [facility] Comment on above: Order Comment: Speci men Type: BLOOD SPECIMENOrdering Facility: [facility] Address: [address] [place], [place] [address] Performed By: #### 5 8410-2 ####[facility] LABIA [id number] [address] [place] MCV (RBC) [Entitic vol] 79.9 fL Low 80.0-100.0 [facility] Comment on above: Order Comment: Speci men Type: BLOOD SPECIMENOrdering Facility: [facility] Address: [address] [place], [place] [address] Performed By: #### 5 8410-2 ####[facility] LABIA [id number] [place] [address] [place] Nucleated RBC (Bld) [#/Vol] 10*3/uL Normal <0.01 [facility] Comment on above: Order Comment: Speci men Type: BLOOD SPECIMENOrdering Facility: [facility] Address: [address] [place], [place] [address] Performed By: #### 5 8410-2 ####[facility] LABIA [id number] [place] [address] [place] Platelet mean volume (Bld) [Entitic vol] 10.5 fL Normal 9.0-12.7 [facility] Comment on above: Order Comment: Speci men Type: BLOOD SPECIMENOrdering Facility: [facility] Address: [address] [place], [place] [address] Performed By: #### 5 8410-2 ####[facility] LABIA [id number] [place] [address] [place] Platelets (Bld) [#/Vol] 235 10*3/uL Normal 150-400 [facility] Comment on above: Order Comment: Speci men Type: BLOOD SPECIMENOrdering Facility: [facility] Address: [address] Performed By: #### 5 8410-2 ####[facility] LABIA [id number] [place] [address] [place] RBC (Bld) [#/Vol] 3.39 10*6/uL Low 4.20-6.00 [facility] Comment on above: Order Comment: Speci men Type: BLOOD SPECIMENOrdering Facility: [facility] Address: [address] Performed By: #### 5 8410-2 ####[facility] LABIA [id number] [place] [address] [place] WBC (Bld) [#/Vol] 20.39 10*3/uL High 3.70-11.00 [facility] Comment on above: Order Comment: Speci men Type: BLOOD SPECIMENOrdering Facility: [facility] Address: [address] Performed By: #### 5 8410-2 ####[facility] LABIA [id number] [place] [address] [place] CONSULT PROGon 01-27-2023 CONSULT PROG Normal [facility] CONSULT PROG Normal [facility] Comprehensive metabolic 2000 panelon 01-27-2023 Albumin [Mass/Vol] 1.8 g/dL Low 3.9-4.9 [facility] Comment on above: Order Comment: Speci men Type: BLOOD SPECIMENOrdering Facility: [facility] Address: [address] Performed By: #### 2 4323-8, 2777-1, 87836-1 ####[facility] LABIA [id number] [place] [address] [place] ALP [Catalytic activity/Vol] 337 U/L High 38-113 [facility] Comment on above: Order Comment: Speci men Type: BLOOD SPECIMENOrdering Facility: [facility] Address: [address] Performed By: #### 2 4323-8, 2776-11, ####[facility] LABCLIA [id number] [place] [address] [place] ALT [Catalytic activity/Vol] 29 U/L Normal 10-54 [facility] Comment on above: Order Comment: Speci men Type: BLOOD SPECIMENOrdering Facility: [facility] Address: [address] Performed By: #### 2 4323-8, 27705-14, ####[facility] LABCLIA [id number] [place] [address] [place] Anion gap [Moles/Vol] 12 mmol/L Normal 9-18 [facility] Comment on above: Order Comment: Speci men Type: BLOOD SPECIMENOrdering Facility: [facility] Address: [address] Performed By: #### 2 4323-8, 2776-11, ####[facility] LABCLIA [id number] [place] [address] [place] AST [Catalytic activity/Vol] 35 U/L Normal 14-40 [facility] Comment on above: Order Comment: Speci men Type: BLOOD SPECIMENOrdering Facility: [facility] Address: [address] [place] [address] Performed By: #### 2 4323-8, 2776-11, ####[facility] LABCLIA [id number] [place] [id number] [place] Bilirubin [Mass/Vol] 0.5 mg/dL Normal 0.2-1.3 [facility] Comment on above: Order Comment: Speci men Type: BLOOD SPECIMENOrdering Facility: [facility] Address: [address] [place] [address] Performed By: #### 2 4323-8, 27705-14, ####[facility] LABCLIA [id number] [place] [id number] [place] Calcium [Mass/Vol] 6.9 mg/dL Low 8.5-10.2 [facility] Comment on above: Order Comment: Speci men Type: BLOOD SPECIMENOrdering Facility: [facility] Address: [address] [place], [place] [address] Performed By: #### 2 4323-8, 27705-14, ####[facility] LABCLIA [id number] [place] [address] [place] Chloride [Moles/Vol] 102 mmol/L Normal 97-105 [facility] Comment on above: Order Comment: Speci men Type: BLOOD SPECIMENOrdering Facility: [facility] Address: [address] [place], [place] [address] Performed By: #### 2 4323-8, 2776-11, ####[facility] LABCLIA [id number] [place] [address] [place] CO2 [Moles/Vol] 21 mmol/L Low 22-30 [facility] Comment on above: Order Comment: Speci men Type: BLOOD SPECIMENOrdering Facility: [facility] Address: [address] [place] [address] Performed By: #### 2 4323-8, 2776-11, ####[facility] LABCLIA [id number] [place] [id number] [place] Creatinine [Mass/Vol] 0.87 mg/dL Normal 0.73-1.22 [facility] Comment on above: Order Comment: Speci men Type: BLOOD SPECIMENOrdering Facility: [facility] Address: [address] [place], [place] [address] Performed By: #### 2 4323-8, 277-, ####[facility] LABCLIA [id number] [place] [address] [place] ESTIMATED GLOMERULAR FILTRATION RATE 99 mL/min/1.73m??? Normal >=60 [facility] Comment on above: Order Comment: Alden padilla Type: BLOOD SPECIMENOrdering Facility: [facility] Address: [address] [place] [address] Result Comment: Veronica mated Glomerular Filtration Rate [...] actual GFR. Performed By: #### 2 4323-8, 2777-, ####[facility] LABCLIA [id number] [place] [address] [place] Glucose [Mass/Vol] 142 mg/dL High 74-99 [facility] Comment on above: Order Comment: Alden padilla Type: BLOOD SPECIMENOrdering Facility: [facility] Address: [address] [place] [address] Result Comment: The [place] [employer] (ADA) provides guidance for cutoff [...] Standards of Medical Care in Diabetes 2016, [place] [employer]. Diabetes Care. 2016.39(Suppl 1). Performed By: #### 2 4323-8, 2777-, ####[facility] LABCLIA [id number] [place] [address] [place] Potassium [Moles/Vol] 4.7 mmol/L Normal 3.7-5.1 [facility] Comment on above: Order Comment: Speci men Type: BLOOD SPECIMENOrdering Facility: [facility] Address: [address] [place] [address] Performed By: #### 2 4323-8, 2776-11, ####[facility] LABCLIA [id number] [place] [address] [place] Protein [Mass/Vol] 5.1 g/dL Low 6.3-8.0 [facility] Comment on above: Order Comment: Speci men Type: BLOOD SPECIMENOrdering Facility: [facility] Address: [address] [place] [address] Performed By: #### 2 4323-8, 2776-11, ####[facility] LABIA [id number] [place] [address] [place] Sodium [Moles/Vol] 135 mmol/L Low 136-144 [facility] Comment on above: Order Comment: Speci men Type: BLOOD SPECIMENOrdering Facility: [facility] Address: [address] [place], [place] [address] Performed By: #### 2 4323-8, 2776-11, ####[facility] LABCLIA [id number] [place] [id number] [place] Urea nitrogen [Mass/Vol] 18 mg/dL Normal 9-24 [facility] Comment on above: Order Comment: Speci men Type: BLOOD SPECIMENOrdering Facility: [facility] Address: [address] Performed By: #### 2 4323-8, 27705-14, ####[facility] LABCLIA [id number] [place] [address] [place] Magnesium SerPl-mCncon 01-27 Magnesium [Mass/Vol] 1.8 mg/dL Normal 1.7-2.3 [facility] Comment on above: Order Comment: Speci men Type: BLOOD SPECIMENOrdering Facility: [facility] Address: [address] [place] [address] Performed By: #### 2 4323-8, 2777-1, 66776-3 ####[facility] LABCLIA [id number] [place] [address] [place] PT panel Coag (PPP)on 2022 INR Coag (PPP) [Relative time] 1.0 {INR} Normal 0.9-1.3 [facility] Comment on above: Order Comment: Speci men Type: BLOOD SPECIMENOrdering Facility: [facility] Address: [address] [place] [address] Result Comment: Lisandra min K Antagonist (VKA) Therapeutic Range: INR 2 to 3 (Target INR of 2.5)Note: For patients treated with VKA drugs, such as warfarin, the [place] [employer] 2012 Guideline recommends [...] al. Chest 2012, 141:7S-47SNishimura RA, et al. [facility] 2017, 70: 252-289 Performed By: #### 3 4528-0, 33592-4 ####[facility] LABCLIA [id number] [address] [place] PT Coag (PPP) [Time] 10.2 s Normal 9.7-13.0 [facility] Comment on above: Order Comment: Speci men Type: BLOOD SPECIMENOrdering Facility: [facility] Address: [address] [place] [address] Performed By: #### 3 4528-0, 19907-6 ####[facility] LABCLIA [id number] [place] [address] [place] Phosphate SerPl-mCncon 01-27 Phosphate [Mass/Vol] 3.3 mg/dL Normal 2.7-4.8 [facility] Comment on above: Order Comment: Speci men Type: BLOOD SPECIMENOrdering Facility: [facility] Address: [address] [place] [address] Performed By: #### 2 4323-8, 2777-1, 18942-4 ####[facility] LABCLIA [id number] [place] [address] [place] TYPE + SCREENon 01-27-2023 ABO A Normal [facility] Comment on above: Order Comment: Speci men Type: BLOOD SPECIMENOrdering Facility: [facility] Address: [address] [place] [address] Performed By: #### T SCR ####[facility] BLOOD BANKCLIA [id number] [place] [address] [place] HISTORICAL AB SCR STATUS Negative Normal [facility] Comment on above: Order Comment: Speci men Type: BLOOD SPECIMENOrdering Facility: [facility] Address: [address] [place] [address] Performed By: #### T SCR ####[facility] BLOOD BANKCLIA [id number] [place] [address] [place] Rh Nom (Bld) Positive Normal [facility] Comment on above: Order Comment: Speci men Type: BLOOD SPECIMENOrdering Facility: [facility] Address: [address] [place], [place] [address] Performed By: #### T SCR ####[facility] BLOOD BANKCLIA [id number] [place] [id number] [facility] [place] TYPE AND SCREEN EXPIRATION 01/30/2023 23:59 Normal [facility] Comment on above: Order Comment: Speci men Type: BLOOD SPECIMENOrdering Facility: [facility] Address: [address] [place] [address] [place] [id number] Performed By: #### T SCR ####CC [facility]OD [facility] [id number] [address] [place] aPTT PPPon 01-27-2023 aPTT Coag (PPP) [Time] 24.2 s Normal 23.0-32.4 [facility] Comment on above: Order Comment: Speci men Type: BLOOD SPECIMENOrdering Facility: [facility] Address: [address] [place] [address] Performed By: #### 3 4528-0, 21862-3 ####[facility] LABCLIA [id number] [address] [place] ANES POSTPROC EVALon 023 ANES POSTPROC EVAL Normal [facility] ANES PRE-OPon 01-26-2023 ANES PRE-OP Normal [facility] BRIEF OP NOTon 01-26-2023 BRIEF OP NOT Normal [facility] Bacteria Spec Anaerobe Culto n 01-26-2023 Bacteria identified Anaer cx Nom (Unsp spec) Negative Normal [facility] Comment on above: Performed By: #### 4 3408-4, 635-3 ####[facility] LABCLIA [id number] [address] STATES OF [facility] Bacteria identified Anaer cx Nom (Unsp spec) Negative Normal [facility] Comment on above: Performed By: #### 4 3408-4, 635-3 ####[facility] LABCLIA [id number] [address] [place] Bacteria Tiss Culton 023 Bacteria identified Cx Nom (Tiss) Abnormal [facility] Comment on above: Performed By: #### 4 3408-4, 635-3 ####[facility] LABCLIA [id number] [place] [address] [place] Bacteria identified Cx Nom (Tiss) ORGANISM ID: 1 Rare Streptococcus pyogenes (group a streptococcus) Refer to specimen collected on 01/24/2023 at 0807 ([id number]) GRAM STAIN: No organisms seen No Polymorphonuclear Leukocytes Abnormal [facility] Comment on above: Performed By: #### 4 3408-4, 635-3 ####[facility] LABCLIA [id number] [address] [place] CASE MANAGEMon 01-26-2023 CASE MANAGEM Normal [facility] CASE MGT INIT ASSESon 2022 CASE MGT INIT ASSES Normal [facility] CBC panel Auto (Bld)on 01-26 Erythrocyte distribution width (RBC) [Ratio] 16.6 % High 11.5-15.0 [facility] Comment on above: Order Comment: Speci men Type: BLOOD SPECIMENOrdering Facility: [facility] Address: [address] [place] [address] Performed By: #### 5 8410-2 ####[facility] LABCLIA [id number] [address] [place] Hematocrit (Bld) [Volume fraction] 28.2 % Low 39.0-51.0 [facility] Comment on above: Order Comment: Speci men Type: BLOOD SPECIMENOrdering Facility: [facility] Address: [address] [place] [address] Performed By: #### 5 8410-2 ####[facility] LABCLIA [id number] [address] [place] Hemoglobin (Bld) [Mass/Vol] 9.7 g/dL Low 13.0-17.0 [facility] Comment on above: Order Comment: Speci men Type: BLOOD SPECIMENOrdering Facility: [facility] Address: [address] [place] [address] Performed By: #### 5 8410-2 ####[facility] LABCLIA [id number] [address] MCH (RBC) [Entitic mass] 26.4 pg Normal 26.0-34.0 [facility] Comment on above: Order Comment: Speci men Type: BLOOD SPECIMENOrdering Facility: [facility] Address: [address] [place] [address] Performed By: #### 5 8410-2 ####[facility] LABIA [id number] [address] MCHC (RBC) [Mass/Vol] 34.4 g/dL Normal 30.5-36.0 [facility] Comment on above: Order Comment: Speci men Type: BLOOD SPECIMENOrdering Facility: [facility] Address: [address] [place], [place] [address] Performed By: #### 5 8410-2 ####[facility] LABIA [id number] [address] STATES OF [facility] MCV (RBC) [Entitic vol] 76.8 fL Low 80.0-100.0 [facility] Comment on above: Order Comment: Speci men Type: BLOOD SPECIMENOrdering Facility: [facility] Address: [address] [place], [place] [address] Performed By: #### 5 8410-2 ####[facility] LABCLIA [id number] [address] [place] Nucleated RBC (Bld) [#/Vol] 10*3/uL Normal <0.01 [facility] Comment on above: Order Comment: Speci men Type: BLOOD SPECIMENOrdering Facility: [facility] Address: [address] [place] [address] Performed By: #### 5 8410-2 ####[facility] LABCLIA [id number] [place] [address] [place] Platelet mean volume (Bld) [Entitic vol] 10.5 fL Normal 9.0-12.7 [facility] Comment on above: Order Comment: Speci men Type: BLOOD SPECIMENOrdering Facility: [facility] Address: [address] [place] [address] Performed By: #### 5 8410-2 ####[facility] LABIA [id number] [place] [address] [place] Platelets (Bld) [#/Vol] 213 10*3/uL Normal 150-400 [facility] Comment on above: Order Comment: Speci men Type: BLOOD SPECIMENOrdering Facility: [facility] Address: [address] [place], [place] [address] Performed By: #### 5 8410-2 ####[facility] LABIA [id number] [place] [address] [place] RBC (Bld) [#/Vol] 3.67 10*6/uL Low 4.20-6.00 [facility] Comment on above: Order Comment: Speci men Type: BLOOD SPECIMENOrdering Facility: [facility] Address: [address] [place], [place] [address] Performed By: #### 5 8410-2 ####[facility] LABIA [id number] [place] [address] [place] WBC (Bld) [#/Vol] 33.85 10*3/uL High 3.70-11.00 [facility] Comment on above: Order Comment: Speci men Type: BLOOD SPECIMENOrdering Facility: [facility] Address: [address] [place], [place] [address] Performed By: #### 5 8410-2 ####[facility] LABCLIA [id number] [address] [place] Erythrocyte distribution width (RBC) [Ratio] 14.9 % Normal 11.5-15.0 [facility] Comment on above: Order Comment: Speci men Type: BLOOD SPECIMENOrdering Facility: [facility] Address: [address] [place], [place] [address] Performed By: #### 5 8410-2 ####[facility] LABIA [id number] [place] [address] [place] Hematocrit (Bld) [Volume fraction] 22.7 % Low 39.0-51.0 [facility] Comment on above: Order Comment: Speci men Type: BLOOD SPECIMENOrdering Facility: [facility] Address: [address] [place] [address] Performed By: #### 5 8410-2 ####[facility] LABIA [id number] [place] [address] [place] Hemoglobin (Bld) [Mass/Vol] 7.9 g/dL Low 13.0-17.0 [facility] Comment on above: Order Comment: Speci men Type: BLOOD SPECIMENOrdering Facility: [facility] Address: [address] [place], [place] [address] Performed By: #### 5 8410-2 ####[facility] LABIA [id number] [place] [address] [place] MCH (RBC) [Entitic mass] 26.2 pg Normal 26.0-34.0 [facility] Comment on above: Order Comment: Speci men Type: BLOOD SPECIMENOrdering Facility: [facility] Address: [address] [place], [place] [id number] Performed By: #### 5 8410-2 ####[facility]IA [id number] [address] [place] OF [facility] MCHC (RBC) [Mass/Vol] 34.8 g/dL Normal 30.5-36.0 [facility] Comment on above: Order Comment: Speci men Type: BLOOD SPECIMENOrdering Facility: [facility] Address: [address] [place], [place] [address] Performed By: #### 5 8410-2 ####[facility] LABIA [id number] [place] [address] [place] MCV (RBC) [Entitic vol] 75.2 fL Low 80.0-100.0 [facility] Comment on above: Order Comment: Speci men Type: BLOOD SPECIMENOrdering Facility: [facility] Address: [address] [place] [address] Performed By: #### 5 8410-2 ####[facility] LABCLIA [id number] [place] [address] [place] Nucleated RBC (Bld) [#/Vol] 10*3/uL Normal <0.01 [facility] Comment on above: Order Comment: Speci men Type: BLOOD SPECIMENOrdering Facility: [facility] Address: [address] [place], [place] [address] Performed By: #### 5 8410-2 ####[facility] LABIA [id number] [place] [address] [place] Platelet mean volume (Bld) [Entitic vol] 11.0 fL Normal 9.0-12.7 [facility] Comment on above: Order Comment: Speci men Type: BLOOD SPECIMENOrdering Facility: [facility] Address: [address] [place], [place] [address] Performed By: #### 5 8410-2 ####[facility] LABCLIA [id number] [place] [address] [place] Platelets (Bld) [#/Vol] 227 10*3/uL Normal 150-400 [facility] Comment on above: Order Comment: Speci men Type: BLOOD SPECIMENOrdering Facility: [facility] Address: [address] [address] Performed By: #### 5 8410-2 ####[facility] LABCLIA [id number] [place] [address] [place] RBC (Bld) [#/Vol] 3.02 10*6/uL Low 4.20-6.00 [facility] Comment on above: Order Comment: Speci men Type: BLOOD SPECIMENOrdering Facility: [facility] Address: [address] [address] Performed By: #### 5 8410-2 ####[facility] LABCLIA [id number] [place] [address] [place] WBC (Bld) [#/Vol] 36.59 10*3/uL High 3.70-11.00 [facility] Comment on above: Order Comment: Speci men Type: BLOOD SPECIMENOrdering Facility: [facility] Address: [address] [address] Performed By: #### 5 8410-2 ####[facility] LABCLIA [id number] [place] [address] [place] CONSULT PROGon 01-26-2023 CONSULT PROG Normal [facility] CONSULT PROG Normal [facility] CULTURE BLOODon 01-26-2023 Microscopic examination of [...] F Tetracycline <=0.25 S F Normal [facility] Comment on above: Performed By: #### B CID2 #### [facility] [address] [place], [place] [address] Dr. Good Castellano [facility] metabolic 2000 panelon 01-26-2023 Albumin [Mass/Vol] 2.4 g/dL Low 3.9-4.9 [facility] Comment on above: Order Comment: Speci men Type: BLOOD SPECIMENOrdering Facility: [facility] Address: [address] [address] Performed By: #### 2 4323-8, HSTNT, 15712-5, 2776- ####[facility] LABIA [id number] [place] [address] [place] ALP [Catalytic activity/Vol] 402 U/L High 38-113 [facility] Comment on above: Order Comment: Speci men Type: BLOOD SPECIMENOrdering Facility: [facility] Address: [address] [place] [address] Performed By: #### 2 4323-8, HSTNT, , 2776- ####[facility] [id number] [place] [address] [place] ALT [Catalytic activity/Vol] 43 U/L Normal 10-54 [facility] Comment on above: Order Comment: Speci men Type: BLOOD SPECIMENOrdering Facility: [facility] Address: [address] Performed By: #### 2 4323-8, HSTNT, , 2776- ####[facility] LABIA [id number] [place] [address] [place] Anion gap [Moles/Vol] 10 mmol/L Normal 9-18 [facility] Comment on above: Order Comment: Speci men Type: BLOOD SPECIMENOrdering Facility: [facility] Address: [address] Performed By: #### 2 4323-8, HSTNT, 59196-5, 2776- ####[facility] LABCLIA [id number] [place] [address] [place] AST [Catalytic activity/Vol] 59 U/L High 14-40 [facility] Comment on above: Order Comment: Speci men Type: BLOOD SPECIMENOrdering Facility: [facility] Address: [address] [place] [address] Performed By: #### 2 4323-8, HSTNT, , 2776- ####[facility] LABIA [id number] [place] [address] [place] Bilirubin [Mass/Vol] 1.1 mg/dL Normal 0.2-1.3 [facility] Comment on above: Order Comment: Speci men Type: BLOOD SPECIMENOrdering Facility: [facility] Address: [address] [place] [address] Performed By: #### 2 4323-8, HSTNT, , 2776-11 ####[facility] LABIA [id number] [place] [address] [place] Calcium [Mass/Vol] 7.6 mg/dL Low 8.5-10.2 [facility] Comment on above: Order Comment: Speci men Type: BLOOD SPECIMENOrdering Facility: [facility] Address: [address] [place], [place] [address] Performed By: #### 2 4323-8, HSTNT, , 2776-11 ####[facility] LABIA [id number] [place] [address] [place] Chloride [Moles/Vol] 100 mmol/L Normal 97-105 [facility] Comment on above: Order Comment: Speci men Type: BLOOD SPECIMENOrdering Facility: [facility] Address: [address] [place], [place] [address] Performed By: #### 2 4323-8, HSTNT, , 2776-11 ####[facility] LABCLIA [id number] [place] [address] [place] CO2 [Moles/Vol] 23 mmol/L Normal 22-30 [facility] Comment on above: Order Comment: Speci men Type: BLOOD SPECIMENOrdering Facility: [facility] Address: [address] [place] [address] Performed By: #### 2 4323-8, HSTNT, , 2776-11 ####[facility] LABIA [id number] [place] [address] [place] Creatinine [Mass/Vol] 0.99 mg/dL Normal 0.73-1.22 [facility] Comment on above: Order Comment: Speci men Type: BLOOD SPECIMENOrdering Facility: [facility] Address: [address] [place] [address] Performed By: #### 2 4323-8, HSTNT, , 2776-11 ####[facility] LABIA [id number] [address] STATES OF [facility] ESTIMATED GLOMERULAR FILTRATION RATE 88 mL/min/1.73m??? Normal >=60 [facility] Comment on above: Order Comment: Speci men Type: BLOOD SPECIMENOrdering Facility: [facility] Address: [address] [place] [address] Result Comment: Veronica mated Glomerular Filtration Rate [...] By: #### 2 4323-8, HSTNT, , 2776-11 ####[facility] LABCLIA [id number] [place] [address] [place] Glucose [Mass/Vol] 99 mg/dL Normal 74-99 [facility] Comment on above: Order Comment: Speci men Type: BLOOD SPECIMENOrdering Facility: [facility] Address: [address] [place], [place] [address] Result Comment: The [place] [employer] (ADA) provides guidance for cutoff [...] Standards of Medical Care in Diabetes 2016, [place] [employer]. Diabetes Care. 2016.39(Suppl 1). Performed By: #### 2 4323-8, HSTNT, , 2776- ####[facility] LABIA [id number] [place] [address] [place] Potassium [Moles/Vol] 4.5 mmol/L Normal 3.7-5.1 [facility] Comment on above: Order Comment: Speci men Type: BLOOD SPECIMENOrdering Facility: [facility] Address: [address] [place] [address] Performed By: #### 2 4323-8, HSTNT, , 2776-11 ####[facility] LABIA [id number] [place] [address] [place] Protein [Mass/Vol] 5.4 g/dL Low 6.3-8.0 [facility] Comment on above: Order Comment: Speci men Type: BLOOD SPECIMENOrdering Facility: [facility] Address: [address] [place] [address] Performed By: #### 2 4323-8, HSTNT, 27259-0, 2777-1 ####[facility] LABCLIA [id number] [place] [address] [place] Sodium [Moles/Vol] 133 mmol/L Low 136-144 [facility] Comment on above: Order Comment: Speci men Type: BLOOD SPECIMENOrdering Facility: [facility] Address: [address] [place] [address] Performed By: #### 2 4323-8, HSTNT, 68788-5, 2776- ####[facility] LABCLIA [id number] [place] [address] [place] Urea nitrogen [Mass/Vol] 28 mg/dL High 9-24 [facility] Comment on above: Order Comment: Speci men Type: BLOOD SPECIMENOrdering Facility: [facility] Address: [address] [place] [address] Performed By: #### 2 4323-8, HSTNT, 34948-0, 2776- ####[facility] LABCLIA [id number] [place] [address] [place] ECG COMPLETEon 01-26-2023 ECG COMPLETE Normal [facility] HIGH SENSITIVITY TROPONIN To n 01-26-2023 HIGH SENSITIVITY ALANNA 97 ng/L High <12 [facility] Comment on above: Order Comment: Speci men Type: BLOOD SPECIMENOrdering Facility: [facility] Address: [address] [place] [address] Result Comment: When assessing risk for acute [...] day MACE. Performed By: #### H STNT ####[facility] LABCLIA [id number] [place] [address] [place] HIGH SENSITIVITY ALANNA 123 ng/L High <12 [facility] Comment on above: Order Comment: Cecilyi valerie Type: BLOOD SPECIMENOrdering Facility: [facility] Address: [address] [facility] [place] [phone] Result Comment: When assessing risk for acute [...] By: #### 2 4323-8, HSTNT, , 2776- ####[facility] LABCLIA [id number] [place] [address] [place] Magnesium SerPl-mCncon 01-26 Magnesium [Mass/Vol] 2.0 mg/dL Normal 1.7-2.3 [facility] Comment on above: Order Comment: Alden padilla Type: BLOOD SPECIMENOrdering Facility: [facility] Address: [address] [place] [phone] Performed By: #### 2 4323-8, HSTNT, , 2776-11 ####[facility] LABCLIA [id number] [place] [address] [place] NURSING PROGon 01-26-2023 NURSING PROG Normal [facility] NUTRITIONon 01-26-2023 NUTRITION Normal [facility] OPERATIVE NOon 01-26-2023 OPERATIVE NO Normal [facility] PT panel Coag (PPP)on 2022 INR Coag (PPP) [Relative time] 1.0 {INR} Normal 0.9-1.3 [facility] Comment on above: Order Comment: Alden padilla Type: BLOOD SPECIMENOrdering Facility: [facility] Address: [place] [address] Result Comment: Lisandra min K Antagonist (VKA) Therapeutic Range: INR 2 to 3 (Target INR of 2.5)Note: For patients treated with VKA drugs, such as warfarin, the [place] [employer] 2012 Guideline recommends [...] al. Chest 2012, 141:7S-47SNishimura RA, et al. [facility] 2017, 70: 252-289 Performed By: #### 3 4528-0, 82028-3 ####[facility] LABIA [id number] [place] [address] [place] PT Coag (PPP) [Time] 10.4 s Normal 9.7-13.0 [facility] Comment on above: Order Comment: Speci men Type: BLOOD SPECIMENOrdering Facility: [facility] Address: [address] [place] [address] Performed By: #### 3 4528-0, 61665-8 ####[facility] LABIA [id number] [place] [address] [place] Phosphate SerPl-mCncon 01-26 Phosphate [Mass/Vol] 3.5 mg/dL Normal 2.7-4.8 [facility] Comment on above: Order Comment: Speci men Type: BLOOD SPECIMENOrdering Facility: [facility] Address: [address] [place] [address] Performed By: #### 2 4323-8, HSTNT, 68028-0, 2777-1 ####[facility] LABIA [id number] [place] [address] [place] SURGICAL PATHOLOGYon 023 CASE REPORT Normal [facility] Comment on above: Order Comment: Speci men Type: DEVICE SPECIMENOrdering Facility: [facility] Address: [address] [place] [address] Result Comment: Surg ical Pathology Report Case: [id number] Provider: Jean Marie Samayoa MD Collected: 01/26/2023 05:56 PMOrdering Location: Admitting Received: 01/26/2023 06:02 PMPathologist: IRENE Sloanpecimen: HARDWARE Performed By: #### S ####[facility] LABCLIA [id number] [address] CLINICAL HISTORY Normal [facility] Comment on above: Order Comment: Speci men Type: DEVICE SPECIMENOrdering Facility: [facility] Address: [address] [place] [address] Result Comment: Pre- op diagnosis:Abscess of left thigh [L02.416] Performed By: #### S ####[facility] LABCLIA [id number] [address] FINAL DIAGNOSIS Normal [facility] Comment on above: Order Comment: Speci men Type: DEVICE SPECIMENOrdering Facility: [facility] Address: [address] [place] [address] Result Comment: A. S ite not specified, hardware removal:-Unremarkable orthopedic hardware from a total hip arthroplasty (gross diagnosis only).CF/TLA 01/27/2023 Performed By: #### S ####[facility] LABCLIA [id number] [address] FINAL PERFORMING LAB Normal [facility] Comment on above: Order Comment: Speci men Type: DEVICE SPECIMENOrdering Facility: [facility] Address: [address] [place] [address] Result Comment: Diag nostic interpretation performed at [facility], [address] [place], [place] [address] CLIA# [id number] Director: Felipe Field M.D. Performed By: #### S ####[facility] LABIA [id number] [place] [address] [place] GROSS DESCRIPTION A. HARDWARE Normal [facility] Comment on above: Order Comment: Speci men Type: DEVICE SPECIMENOrdering Facility: [facility] Address: [address] [phone] Result Comment: Rece ived fresh labeled with hardware are the grossly unremarkable components of orthopedic hardware from a total hip arthroplasty including a femoral stem measuring 14.5 cm in length by 3.3 cm in greatest width. The device is intact with no defects present. Inscribed on the devices [id number] V556DM . Also identified within the specimen [...] Inscribed on the device is 06-2600 5'38'37 1A856S BC-26 mm NK+0 . There is no attached soft tissue present. No sections are submitted. The specimen is reviewed with Dr. Ernandez.TLA January 27, 2023 11:32 AMGross examination performed at [facility], [address] [place] [address] Performed By: #### S ####[facility] [id number] [place] [address] [place] THERAPY NTon 01-26-2023 THERAPY NT Normal [facility] VENOUS BLOOD GASES WITH IONI ZED MAGNESIUMon 01-26-2023 BASE DEFICIT, VENOUS -4 mmol/L Low -2-0 [facility] Comment on above: Order Comment: Speci men Type: VENOUS BLOOD SPECIMENOrdering Facility: [facility] Address: [address] Performed By: #### V ALLMG ####[facility] LABIA [id number] [place] [address] [place] Calcium.ionized (Bld) [Mass/Vol] 1.05 mmol/L Low 1.08-1.30 [facility] Comment on above: Order Comment: Speci men Type: VENOUS BLOOD SPECIMENOrdering Facility: [facility] Address: [address] [address] Performed By: #### V ALLMG ####[facility] [id number] [place] [address] [place] Calcium.ionized adjusted to pH 7.4 (BldA) [Moles/Vol] 0.97 mmol/L Low 1.08-1.30 [facility] Comment on above: Order Comment: Speci men Type: VENOUS BLOOD SPECIMENOrdering Facility: [facility] Address: [address] [place] [address] Performed By: #### V ALLMG ####[facility] [id number] [place] [address] [place] Carboxyhemoglobin (BldV) [Mass fraction] 1.4 % Normal 0.0-2.0 [facility] Comment on above: Order Comment: Speci men Type: VENOUS BLOOD SPECIMENOrdering Facility: [facility] Address: [address] [place], [place] [address] Result Comment: Carb oxyhemoglobin Reference Range for Smokers: 2.0-8.0% Performed By: #### V ALLMG ####[facility] [id number] [place] [address] [place] CO2 (BldV) [Partial pressure] 51 mm[Hg] Normal 42-55 [facility] Comment on above: Order Comment: Speci men Type: VENOUS BLOOD SPECIMENOrdering Facility: [facility] Address: [address] Performed By: #### V ALLMG ####[facility] LABCLIA [id number] [address] [place] CO2 [Moles/Vol] 24 mmol/L Low 25-29 [facility] Comment on above: Order Comment: Speci men Type: VENOUS BLOOD SPECIMENOrdering Facility: [facility] Address: [address] [place], [place] [address] Performed By: #### V ALLMG ####[facility] LABCLIA [id number] [place] [address] [place] CO2 adjusted to patient's actual temperature (BldV) [Partial pressure] 51 mmHg Normal 42-55 [facility] Comment on above: Order Comment: Speci men Type: VENOUS BLOOD SPECIMENOrdering Facility: [facility] Address: [address] [place] [address] Performed By: #### V ALLMG ####[facility] LABCLIA [id number] [place] [address] [place] Glucose [Mass/Vol] 110 mg/dL High 60-105 [facility] Comment on above: Order Comment: Speci men Type: VENOUS BLOOD SPECIMENOrdering Facility: [facility] Address: [address] [place], [place] [address] Performed By: #### V ALLMG ####[facility] LABCLIA [id number] [place] [address] [place] HCO3 (Bld) [Moles/Vol] 22 mmol/L Low 24-28 [facility] Comment on above: Order Comment: Speci men Type: VENOUS BLOOD SPECIMENOrdering Facility: [facility] Address: [address] [place], [place] [address] Performed By: #### V ALLMG ####[facility] LABCLIA [id number] [place] [address] [place] Hematocrit (Bld) [Volume fraction] 26.6 % Low 39.0-51.0 [facility] Comment on above: Order Comment: Speci men Type: VENOUS BLOOD SPECIMENOrdering Facility: [facility] Address: [address] [place] [address] Performed By: #### V ALLMG ####[facility] LABIA [id number] [address] [place] Hemoglobin (Bld) [Mass/Vol] 8.6 g/dL Low 13.0-17.0 [facility] Comment on above: Order Comment: Speci men Type: VENOUS BLOOD SPECIMENOrdering Facility: [facility] Address: [address] [place] [address] Performed By: #### V ALLMG ####[facility] LABIA [id number] [place] [address] [place] Lactate [Moles/Vol] 1.0 mmol/L Normal 0.5-2.2 [facility] Comment on above: Order Comment: Speci men Type: VENOUS BLOOD SPECIMENOrdering Facility: [facility] Address: [address] [place], [place] [address] Performed By: #### V ALLMG ####[facility] LABIA [id number] [place] [address] [place] Magnesium [Moles/Vol] 0.48 mmol/L Normal 0.45-0.60 [facility] Comment on above: Order Comment: Speci men Type: VENOUS BLOOD SPECIMENOrdering Facility: [facility] Address: [address] [place], [place] [address] Performed By: #### V ALLMG ####[facility] LABIA [id number] [place] [address] [place] Methemoglobin (Bld) [Mass fraction] 1.5 % Normal 0.0-1.5 [facility] Comment on above: Order Comment: Speci men Type: VENOUS BLOOD SPECIMENOrdering Facility: [facility] Address: [address] Performed By: #### V ALLMG ####[facility] LABCLIA [id number] [place] [address] [place] Oxygen (BldV) [Partial pressure] 58 mm[Hg] High 35-45 [facility] Comment on above: Order Comment: Speci men Type: VENOUS BLOOD SPECIMENOrdering Facility: [facility] Address: [address] [place], [place] [address] Performed By: #### V ALLMG ####[facility] LABCLIA [id number] [address] [place] Oxygen adjusted to patient's actual temperature (BldV) [Partial pressure] 58 mmHg High 35-45 [facility] Comment on above: Order Comment: Speci men Type: VENOUS BLOOD SPECIMENOrdering Facility: [facility] Address: [address] [place], [place] [address] Performed By: #### V ALLMG ####[facility] LABCLIA [id number] [place] [address] [place] Oxygen saturation in Venous blood 84 % Normal 60-85 [facility] Comment on above: Order Comment: Speci men Type: VENOUS BLOOD SPECIMENOrdering Facility: [facility] Address: [address] [place], [place] [address] Performed By: #### V ALLMG ####[facility] LABCLIA [id number] [place] [address] [place] Oxyhemoglobin (BldV) [Mass fraction] 81 % Normal 60-85 [facility] Comment on above: Order Comment: Speci men Type: VENOUS BLOOD SPECIMENOrdering Facility: [facility] Address: [address] [place], [place] [address] Performed By: #### V ALLMG ####[facility] LABCLIA [id number] [place] [address] [place] pH (BldV) 7.26 [pH] Low 7.32-7.42 [facility] Comment on above: Order Comment: Speci men Type: VENOUS BLOOD SPECIMENOrdering Facility: [facility] Address: [address] [place], [place] [address] Performed By: #### V ALLMG ####[facility] LABCLIA [id number] [place] [address] [place] pH adjusted to patient's actual temperature (BldV) 7.26 Low 7.32-7.42 [facility] Comment on above: Order Comment: Speci men Type: VENOUS BLOOD SPECIMENOrdering Facility: [facility] Address: [address] [place], [place] [address] Performed By: #### V ALLMG ####[facility] LABCLIA [id number] [place] [address] [place] Potassium [Moles/Vol] 4.3 mmol/L Normal 3.5-5.0 [facility] Comment on above: Order Comment: Speci men Type: VENOUS BLOOD SPECIMENOrdering Facility: [facility] Address: [address] [place], [place] [address] Performed By: #### V ALLMG ####[facility] LABCLIA [id number] [place] [address] [place] Sodium [Moles/Vol] 135 mmol/L Low 136-144 [facility] Comment on above: Order Comment: Speci men Type: VENOUS BLOOD SPECIMENOrdering Facility: [facility] Address: [address] [place], [place] [address] Performed By: #### V ALLMG ####[facility] LABCLIA [id number] [place] [address] [place] XR CHEST 1V FRONTAL PORTon 0 01-26-2023 XR CHEST 1V FRONTAL PORT Normal [facility] XR PELVIS 1V APon 01-26-2023 XR PELVIS 1V AP Normal [facility] aPTT PPPon 01-26-2023 aPTT Coag (PPP) [Time] 23.0 s Normal 23.0-32.4 [facility] Comment on above: Order Comment: Speci men Type: BLOOD SPECIMENOrdering Facility: [facility] Address: [address] [place] [address] Performed By: #### 3 4528-0, 05370-4 ####[facility] LABCLIA [id number] [address] OF [facility] CBC panel Auto (Bld)on 01-25 Erythrocyte distribution width (RBC) [Ratio] 14.8 % Normal 11.5-15.0 [facility] Comment on above: Order Comment: Speci men Type: BLOOD SPECIMENOrdering Facility: [facility] [facility] Address: [address] [place] [address] Performed By: #### 5 8410-2 ####[facility] LABCLIA [id number] [address] [place] Hematocrit (Bld) [Volume fraction] 20.0 % Low 39.0-51.0 [facility] Comment on above: Order Comment: Speci men Type: BLOOD SPECIMENOrdering Facility: [facility] Address: [address] [place] [address] Performed By: #### 5 8410-2 ####[facility] LABCLIA [id number] [place] [address] [place] Hemoglobin (Bld) [Mass/Vol] 7.0 g/dL Low 13.0-17.0 [facility] Comment on above: Order Comment: Speci men Type: BLOOD SPECIMENOrdering Facility: [facility] Address: [address] [place] [address] Performed By: #### 5 8410-2 ####[facility] LABCLIA [id number] [place] [address] [place] MCH (RBC) [Entitic mass] 26.2 pg Normal 26.0-34.0 [facility] Comment on above: Order Comment: Speci men Type: BLOOD SPECIMENOrdering Facility: [facility] Address: [address] [place], [place] [address] Performed By: #### 5 8410-2 ####[facility] LABIA [id number] [place] [address] [place] MCHC (RBC) [Mass/Vol] 35.0 g/dL Normal 30.5-36.0 [facility] Comment on above: Order Comment: Speci men Type: BLOOD SPECIMENOrdering Facility: [facility] Address: [address] [place], [place] [address] Performed By: #### 5 8410-2 ####[facility] LABIA [id number] [place] [address] [place] MCV (RBC) [Entitic vol] 74.9 fL Low 80.0-100.0 [facility] Comment on above: Order Comment: Speci men Type: BLOOD SPECIMENOrdering Facility: [facility] Address: [address] [place], [place] [address] Performed By: #### 5 8410-2 ####[facility] LABIA [id number] [place] [address] [place] Nucleated RBC (Bld) [#/Vol] 10*3/uL Normal <0.01 [facility] Comment on above: Order Comment: Speci men Type: BLOOD SPECIMENOrdering Facility: [facility] Address: [address] Performed By: #### 5 8410-2 ####[facility] LABIA [id number] [place] [address] [place] Platelet mean volume (Bld) [Entitic vol] 12.1 fL Normal 9.0-12.7 [facility] Comment on above: Order Comment: Speci men Type: BLOOD SPECIMENOrdering Facility: [facility] Address: [address] [place], [place] [address] Performed By: #### 5 8410-2 ####[facility] LABIA [id number] [place] [address] [place] Platelets (Bld) [#/Vol] 176 10*3/uL Normal 150-400 [facility] Comment on above: Order Comment: Speci men Type: BLOOD SPECIMENOrdering Facility: [facility] Address: [address] [place] [address] Performed By: #### 5 8410-2 ####[facility] LABIA [id number] [place] [address] [place] RBC (Bld) [#/Vol] 2.67 10*6/uL Low 4.20-6.00 [facility] Comment on above: Order Comment: Speci men Type: BLOOD SPECIMENOrdering Facility: [facility] Address: [address] [place] [address] Performed By: #### 5 8410-2 ####[facility] LABIA [id number] [place] [address] [place] WBC (Bld) [#/Vol] 37.96 10*3/uL High 3.70-11.00 [facility] Comment on above: Order Comment: Speci men Type: BLOOD SPECIMENOrdering Facility: [facility] Address: [address] [place], [place] [address] Performed By: #### 5 8410-2 ####[facility] [id number] [place] [address] [place] CONSULTon 01-25-2023 CONSULT Normal [facility] CONSULT PROGon 01-25-2023 CONSULT PROG Normal [facility] CONSULT PROG Normal [facility] Comprehensive metabolic 2000 panelon 01-25-2023 Albumin [Mass/Vol] 2.0 g/dL Low 3.9-4.9 [facility] Comment on above: Order Comment: Speci men Type: BLOOD SPECIMENOrdering Facility: [facility] Address: [address] Performed By: #### 2 4323-8, 74084-8, 2776-11, HSTNT ####[facility] LABCLIA [id number] [place] [address] [place] ALP [Catalytic activity/Vol] 107 U/L Normal 38-113 [facility] Comment on above: Order Comment: Speci men Type: BLOOD SPECIMENOrdering Facility: [facility] Address: [address] [place] [address] Performed By: #### 2 4323-8, 76320-6, 2776-11, HSTNT ####[facility] LABIA [id number] [place] [address] [place] ALT [Catalytic activity/Vol] 27 U/L Normal 10-54 [facility] Comment on above: Order Comment: Speci men Type: BLOOD SPECIMENOrdering Facility: [facility] Address: [address] Performed By: #### 2 4323-8, , 2776-11, HSTNT ####[facility] LABIA [id number] [place] [address] [place] Anion gap [Moles/Vol] 13 mmol/L Normal 9-18 [facility] Comment on above: Order Comment: Speci men Type: BLOOD SPECIMENOrdering Facility: [facility] Address: [address] [place] [id number] Performed By: #### 2 4323-8, , 2776-11, HSTNT ####[facility] LABCLIA [id number] [place] [address] [place] AST [Catalytic activity/Vol] 18 U/L Normal 14-40 [facility] Comment on above: Order Comment: Speci men Type: BLOOD SPECIMENOrdering Facility: [facility] Address: [address] [place] [address] Performed By: #### 2 4323-8, 42871-5, 2776-11, HSTNT ####[facility] LABCLIA [id number] [address] [address] [place] Bilirubin [Mass/Vol] 1.3 mg/dL Normal 0.2-1.3 [facility] Comment on above: Order Comment: Speci men Type: BLOOD SPECIMENOrdering Facility: [facility] Address: [address] [place], [place] [address] Performed By: #### 2 4323-8, , 2776-11, HSTNT ####[facility] LABIA [id number] [place] [address] [place] Calcium [Mass/Vol] 7.5 mg/dL Low 8.5-10.2 [facility] Comment on above: Order Comment: Speci men Type: BLOOD SPECIMENOrdering Facility: [facility] Address: [address] [place], [place] [address] Performed By: #### 2 4323-8, , 2776-11, HSTNT ####[facility] LABIA [id number] [place] [address] [place] Chloride [Moles/Vol] 99 mmol/L Normal 97-105 [facility] Comment on above: Order Comment: Speci men Type: BLOOD SPECIMENOrdering Facility: [facility] Address: [address] [place], [place] [address] Performed By: #### 2 4323-8, , 2776-11, HSTNT ####[facility] LABCLIA [id number] [place] [address] [place] CO2 [Moles/Vol] 20 mmol/L Low 22-30 [facility] Comment on above: Order Comment: Speci men Type: BLOOD SPECIMENOrdering Facility: [facility] Address: [address] [place] [id number] Performed By: #### 2 4323-8, 62732-1, 2776-11, HSTNT ####[facility] LABCLIA [id number] [place] [address] [place] Creatinine [Mass/Vol] 1.47 mg/dL High 0.73-1.22 [facility] Comment on above: Order Comment: Speci men Type: BLOOD SPECIMENOrdering Facility: [facility] Address: [address] Performed By: #### 2 4323-8, , 2776-11, HSTNT ####[facility] LABIA [id number] [place] [address] [place] ESTIMATED GLOMERULAR FILTRATION RATE 55 mL/min/1.73m??? Low >=60 [facility] Comment on above: Order Comment: Speci men Type: BLOOD SPECIMENOrdering Facility: [facility] Address: [address] [place] [address] Result Comment: Veronica mated Glomerular Filtration Rate [...] actual GFR. Performed By: #### 2 4323-8, 61194-5, 2776-11, HSTNT ####[facility] LABIA [id number] [place] [address] [place] Glucose [Mass/Vol] 99 mg/dL Normal 74-99 [facility] Comment on above: Order Comment: Speci men Type: BLOOD SPECIMENOrdering Facility: [facility] Address: [address] Result Comment: The [place] [employer] (ADA) provides guidance for cutoff [...] Standards of Medical Care in Diabetes 2016, [place] [employer]. Diabetes Care. 2016.39(Suppl 1). Performed By: #### 2 4323-8, , 2776-11, HSTNT ####[facility] LABCLIA [id number] [address] [address] [place] Potassium [Moles/Vol] 4.3 mmol/L Normal 3.7-5.1 [facility] Comment on above: Order Comment: Speci men Type: BLOOD SPECIMENOrdering Facility: [facility] Address: [address] [place] [address] Performed By: #### 2 4323-8, , 2776-11, HSTNT ####[facility] LABCLIA [id number] [place] [address] [place] Protein [Mass/Vol] 4.3 g/dL Low 6.3-8.0 [facility] Comment on above: Order Comment: Speci men Type: BLOOD SPECIMENOrdering Facility: [facility] Address: [address] [place] [address] Performed By: #### 2 4323-8, , 2776-11, HSTNT ####[facility] LABCLIA [id number] [address] [address] [place] Sodium [Moles/Vol] 132 mmol/L Low 136-144 [facility] Comment on above: Order Comment: Speci men Type: BLOOD SPECIMENOrdering Facility: [facility] Address: [address] Performed By: #### 2 4323-8, 07138-2, 277-, HSTNT ####[facility] LABCLIA [id number] [place] [address] [place] Urea nitrogen [Mass/Vol] 53 mg/dL High 9-24 [facility] Comment on above: Order Comment: Speci men Type: BLOOD SPECIMENOrdering Facility: [facility] Address: [address] [place] [address] Performed By: #### 2 4323-8, , 27705-14, HSTNT ####[facility] LABIA [id number] [place] [address] [place] Gas and Carbon monoxide pane l (BldV)on 01-25-2023 BASE DEFICIT, VENOUS -3 mmol/L Low -2-0 [facility] Comment on above: Order Comment: Speci men Type: VENOUS BLOOD SPECIMENOrdering Facility: [facility] Address: [address] [place] [address] Performed By: #### 2 4344-4 ####[facility] LABIA [id number] [place] [address] [place] Body temperature 98.06 [degF] Normal [facility] Comment on above: Order Comment: Speci men Type: VENOUS BLOOD SPECIMENOrdering Facility: [facility] Address: [address] [place], [place] [address] Performed By: #### 2 4344-4 ####[facility] LABIA [id number] [place] [address] [place] Calcium.ionized (Bld) [Mass/Vol] 1.10 mmol/L Normal 1.08-1.30 [facility] Comment on above: Order Comment: Speci men Type: VENOUS BLOOD SPECIMENOrdering Facility: [facility] Address: [address] [place], [place] [address] Performed By: #### 2 4344-4 ####[facility] [id number] [place] [address] [place] Calcium.ionized adjusted to pH 7.4 (BldA) [Moles/Vol] 1.10 mmol/L Normal 1.08-1.30 [facility] Comment on above: Order Comment: Speci men Type: VENOUS BLOOD SPECIMENOrdering Facility: [facility] Address: [address] Performed By: #### 2 4344-4 ####[facility] [id number] [place] [address] [place] Carboxyhemoglobin (BldV) [Mass fraction] 1.4 % Normal 0.0-2.0 [facility] Comment on above: Order Comment: Speci men Type: VENOUS BLOOD SPECIMENOrdering Facility: [facility] Address: [address] [place], [place] [address] Result Comment: Carb oxyhemoglobin Reference Range for Smokers: 2.0-8.0% Performed By: #### 2 4344-4 ####[facility] [id number] [place] [address] [place] CO2 (BldV) [Partial pressure] 36 mm[Hg] Low 42-55 [facility] Comment on above: Order Comment: Speci men Type: VENOUS BLOOD SPECIMENOrdering Facility: [facility] Address: [address] Performed By: #### 2 4344-4 ####[facility] [id number] [place] [address] [place] CO2 [Moles/Vol] 23 mmol/L Low 25-29 [facility] Comment on above: Order Comment: Speci men Type: VENOUS BLOOD SPECIMENOrdering Facility: [facility] Address: [address] Performed By: #### 2 4344-4 ####[facility] LABCLIA [id number] [address] [place] [facility] CO2 adjusted to patient's actual temperature (BldV) [Partial pressure] 35 mmHg Low 42-55 [facility] Comment on above: Order Comment: Speci men Type: VENOUS BLOOD SPECIMENOrdering Facility: [facility] Address: [address] [place], [place] [address] Performed By: #### 2 4344-4 ####[facility] LABCLIA [id number] [place] [address] [place] Glucose [Mass/Vol] 104 mg/dL Normal 60-105 [facility] Comment on above: Order Comment: Speci men Type: VENOUS BLOOD SPECIMENOrdering Facility: [facility] Address: [address] [place], [place] [address] Performed By: #### 2 4344-4 ####[facility] LABCLIA [id number] [place] [address] [place] HCO3 (Bld) [Moles/Vol] 21 mmol/L Low 24-28 [facility] Comment on above: Order Comment: Speci men Type: VENOUS BLOOD SPECIMENOrdering Facility: [facility] Address: [address] [place], [place] [address] Performed By: #### 2 4344-4 ####[facility] LABCLIA [id number] [address] [place] Hematocrit (Bld) [Volume fraction] 24.5 % Low 39.0-51.0 [facility] Comment on above: Order Comment: Speci men Type: VENOUS BLOOD SPECIMENOrdering Facility: [facility] Address: [address] [place], [place] [address] Performed By: #### 2 4344-4 ####[facility] LABCLIA [id number] [id number] [address] [place] Hemoglobin (Bld) [Mass/Vol] 7.9 g/dL Low 13.0-17.0 [facility] Comment on above: Order Comment: Speci men Type: VENOUS BLOOD SPECIMENOrdering Facility: [facility] Address: [address] [place] [address] Performed By: #### 2 4344-4 ####[facility] LABCLIA [id number] [place] [address] [place] Lactate [Moles/Vol] 1.2 mmol/L Normal 0.5-2.2 [facility] Comment on above: Order Comment: Speci men Type: VENOUS BLOOD SPECIMENOrdering Facility: [facility] Address: [address] [place] [address] Performed By: #### 2 4344-4 ####[facility] LABCLIA [id number] [place] [address] [place] Methemoglobin (Bld) [Mass fraction] 0.9 % Normal 0.0-1.5 [facility] Comment on above: Order Comment: Speci men Type: VENOUS BLOOD SPECIMENOrdering Facility: [facility] Address: [address] [place], [place] [address] Performed By: #### 2 4344-4 ####[facility] LABCLIA [id number] [place] [address] [place] O2 THERAPY NC = Nasal Cannula Normal [facility] Comment on above: Order Comment: Speci men Type: VENOUS BLOOD SPECIMENOrdering Facility: [facility] Address: [address] [place], [place] [address] Performed By: #### 2 4344-4 ####[facility] LABCLIA [id number] [place] [address] [place] Oxygen (BldV) [Partial pressure] 44 mm[Hg] Normal 35-45 [facility] Comment on above: Order Comment: Speci men Type: VENOUS BLOOD SPECIMENOrdering Facility: [facility] Address: [address] [place] [address] Performed By: #### 2 4344-4 ####[facility] LABCLIA [id number] [place] [address] [place] Oxygen adjusted to patient's actual temperature (BldV) [Partial pressure] 43 mmHg Normal 35-45 [facility] Comment on above: Order Comment: Speci men Type: VENOUS BLOOD SPECIMENOrdering Facility: [facility] Address: [address] Performed By: #### 2 4344-4 ####[facility] LABCLIA [id number] [place] [address] [place] Oxygen saturation in Venous blood 73 % Normal 60-85 [facility] Comment on above: Order Comment: Speci men Type: VENOUS BLOOD SPECIMENOrdering Facility: [facility] Address: [address] [place], [place] [address] Performed By: #### 2 4344-4 ####[facility] LABCLIA [id number] [place] [address] [place] Oxyhemoglobin (BldV) [Mass fraction] 71 % Normal 60-85 [facility] Comment on above: Order Comment: Speci men Type: VENOUS BLOOD SPECIMENOrdering Facility: [facility] Address: [address] [place] [address] Performed By: #### 2 4344-4 ####[facility] LABCLIA [id number] [place] [address] [place] pH (BldV) 7.40 [pH] Normal 7.32-7.42 [facility] Comment on above: Order Comment: Speci men Type: VENOUS BLOOD SPECIMENOrdering Facility: [facility] Address: [address] [place] [address] Performed By: #### 2 4344-4 ####[facility] LABCLIA [id number] [place] [address] [place] pH adjusted to patient's actual temperature (BldV) 7.40 Normal 7.32-7.42 [facility] Comment on above: Order Comment: Speci men Type: VENOUS BLOOD SPECIMENOrdering Facility: [facility] Address: [address] [place] [address] Performed By: #### 2 4344-4 ####[facility] LABCLIA [id number] [place] [address] [place] Potassium [Moles/Vol] 4.0 mmol/L Normal 3.5-5.0 [facility] Comment on above: Order Comment: Speci men Type: VENOUS BLOOD SPECIMENOrdering Facility: [facility] Address: [address] [place] [address] Performed By: #### 2 4344-4 ####[facility] LABCLIA [id number] [place] [address] [place] Sodium [Moles/Vol] 130 mmol/L Low 136-144 [facility] Comment on above: Order Comment: Speci men Type: VENOUS BLOOD SPECIMENOrdering Facility: [facility] Address: [address] [place], [place] [address] Performed By: #### 2 4344-4 ####[facility] LABCLIA [id number] [place] [address] [place] BASE DEFICIT, VENOUS -3 mmol/L Low -2-0 [facility] Comment on above: Order Comment: Speci men Type: VENOUS BLOOD SPECIMENOrdering Facility: [facility] Address: [address] [place] [address] Performed By: #### 2 4344-4 ####[facility] LABCLIA [id number] [place] [address] [place] Body temperature 98.6 [degF] Normal [facility] Comment on above: Order Comment: Speci men Type: VENOUS BLOOD SPECIMENOrdering Facility: [facility] Address: [facility] [place] [address] Performed By: #### 2 4344-4 ####[facility] [id number] [place] [address] [place] Calcium.ionized (Bld) [Mass/Vol] 1.13 mmol/L Normal 1.08-1.30 [facility] Comment on above: Order Comment: Speci men Type: VENOUS BLOOD SPECIMENOrdering Facility: [facility] Address: [address] [place] [address] Performed By: #### 2 4344-4 ####[facility] [id number] [place] [address] [place] Calcium.ionized adjusted to pH 7.4 (BldA) [Moles/Vol] 1.12 mmol/L Normal 1.08-1.30 [facility] Comment on above: Order Comment: Speci men Type: VENOUS BLOOD SPECIMENOrdering Facility: [facility] Address: [address] [place] [address] Performed By: #### 2 4344-4 ####[facility] [id number] [place] [address] [place] Carboxyhemoglobin (BldV) [Mass fraction] 1.0 % Normal 0.0-2.0 [facility] Comment on above: Order Comment: Speci men Type: VENOUS BLOOD SPECIMENOrdering Facility: [facility] Address: [address] [place], [place] [address] Result Comment: Carb oxyhemoglobin Reference Range for Smokers: 2.0-8.0% Performed By: #### 2 4344-4 ####[facility] [id number] [place] [address] [place] CO2 (BldV) [Partial pressure] 36 mm[Hg] Low 42-55 [facility] Comment on above: Order Comment: Speci men Type: VENOUS BLOOD SPECIMENOrdering Facility: [facility] Address: [address] [place] [address] Performed By: #### 2 4344-4 ####[facility] LABCLIA [id number] [place] [address] [place] CO2 [Moles/Vol] 22 mmol/L Low 25-29 [facility] Comment on above: Order Comment: Speci men Type: VENOUS BLOOD SPECIMENOrdering Facility: [facility] Address: [address] Performed By: #### 2 4344-4 ####[facility] LABCLIA [id number] [place] [address] [place] Glucose [Mass/Vol] 106 mg/dL High 60-105 [facility] Comment on above: Order Comment: Speci men Type: VENOUS BLOOD SPECIMENOrdering Facility: [facility] Address: [address] Performed By: #### 2 4344-4 ####[facility] LABCLIA [id number] [place] [address] [place] HCO3 (Bld) [Moles/Vol] 21 mmol/L Low 24-28 [facility] Comment on above: Order Comment: Speci men Type: VENOUS BLOOD SPECIMENOrdering Facility: [facility] Address: [address] [place] [address] Performed By: #### 2 4344-4 ####[facility] LABCLIA [id number] [place] [address] [place] Hematocrit (Bld) [Volume fraction] 22.9 % Low 39.0-51.0 [facility] Comment on above: Order Comment: Speci men Type: VENOUS BLOOD SPECIMENOrdering Facility: [facility] Address: [address] [place] [address] Performed By: #### 2 4344-4 ####[facility] LABCLIA [id number] [place] [id number] [place] Hemoglobin (Bld) [Mass/Vol] 7.3 g/dL Low 13.0-17.0 [facility] Comment on above: Order Comment: Speci men Type: VENOUS BLOOD SPECIMENOrdering Facility: [facility] Address: [address] [place] [address] Performed By: #### 2 4344-4 ####[facility] LABCLIA [id number] [place] [address] [place] Lactate [Moles/Vol] 2.1 mmol/L Normal 0.5-2.2 [facility] Comment on above: Order Comment: Speci men Type: VENOUS BLOOD SPECIMENOrdering Facility: [facility] Address: [address] [place] [address] Performed By: #### 2 4344-4 ####[facility] LABCLIA [id number] [place] [address] [place] Methemoglobin (Bld) [Mass fraction] 1.6 % High 0.0-1.5 [facility] Comment on above: Order Comment: Speci men Type: VENOUS BLOOD SPECIMENOrdering Facility: [facility] Address: [address] [place] [address] Performed By: #### 2 4344-4 ####[facility] LABCLIA [id number] [place] [address] [place] O2 THERAPY NC = Nasal Cannula Normal [facility] Comment on above: Order Comment: Speci men Type: VENOUS BLOOD SPECIMENOrdering Facility: [facility] Address: [address] [place], [place] [address] Performed By: #### 2 4344-4 ####[facility] LABCLIA [id number] [place] [address] [place] Oxygen (BldV) [Partial pressure] 38 mm[Hg] Normal 35-45 [facility] [facility] Comment on above: Order Comment: Speci men Type: VENOUS BLOOD SPECIMENOrdering Facility: [facility] Address: [address] Performed By: #### 2 4344-4 ####[facility] LABCLIA [id number] [place] [address] [place] Oxygen saturation in Venous blood 62 % Normal 60-85 [facility] Comment on above: Order Comment: Speci men Type: VENOUS BLOOD SPECIMENOrdering Facility: [facility] Address: [address] Performed By: #### 2 4344-4 ####[facility] LABCLIA [id number] [place] [address] [place] Oxyhemoglobin (BldV) [Mass fraction] 61 % Normal 60-85 [facility] Comment on above: Order Comment: Speci men Type: VENOUS BLOOD SPECIMENOrdering Facility: [facility] Address: [address] Performed By: #### 2 4344-4 ####[facility] LABIA [id number] [place] [address] [place] pH (BldV) 7.39 [pH] Normal 7.32-7.42 [facility] Comment on above: Order Comment: Speci men Type: VENOUS BLOOD SPECIMENOrdering Facility: [facility] Address: [address] Performed By: #### 2 4344-4 ####[facility] LABCLIA [id number] [place] [address] [place] Potassium [Moles/Vol] 4.1 mmol/L Normal 3.5-5.0 [facility] Comment on above: Order Comment: Speci men Type: VENOUS BLOOD SPECIMENOrdering Facility: [facility] Address: [address] Performed By: #### 2 4344-4 ####[facility] LABCLIA [id number] [place] [id number] [place] Sodium [Moles/Vol] 130 mmol/L Low 136-144 [facility] Comment on above: Order Comment: Speci men Type: VENOUS BLOOD SPECIMENOrdering Facility: [facility] Address: [address] [place] [address] Performed By: #### 2 4344-4 ####[facility] LABCLIA [id number] [address] [place] HIGH SENSITIVITY TROPONIN To n 01-25-2023 HIGH SENSITIVITY ALANNA 19 ng/L High <12 [facility] Comment on above: Order Comment: Speci men Type: BLOOD SPECIMENOrdering Facility: [facility] Address: [address] [place] [address] Result Comment: When assessing risk for acute [...] day MACE. Performed By: #### 2 4323-8, 56813-6, 2777-, HSTNT ####[facility] LABCLIA [id number] [place] [id number] [place] Magnesium SerPl-mCncon 01-25 Magnesium [Mass/Vol] 2.3 mg/dL Normal 1.7-2.3 [facility] Comment on above: Order Comment: Speci men Type: BLOOD SPECIMENOrdering Facility: [facility] Address: [address] [place], [place] [address] Performed By: #### 2 4323-8, 89510-2, 2777-1, HSTNT ####[facility] LABCLIA [id number] [place] [id number] [place] PT panel Coag (PPP)on 2022 INR Coag (PPP) [Relative time] 1.1 {INR} Normal 0.9-1.3 [facility] Comment on above: Order Comment: Alden padilla Type: BLOOD SPECIMENOrdering Facility: [facility] Address: [place] [id number] Result Comment: Lisandra min K Antagonist (VKA) Therapeutic Range: INR 2 to 3 (Target INR of 2.5)Note: For patients treated with VKA drugs, such as warfarin, the [place] [employer] 2012 Guideline recommends [...] of 3).Rico BENÍTEZ, et al. Chest 2012, 141:7S-47SNishjoel RA, et al. [facility] 2017, 70: 252-289 Performed By: #### 3 4528-0, 58460-5 ####[facility] [id number] [place] [address] [place] PT Coag (PPP) [Time] 11.4 s Normal 9.7-13.0 [facility] Comment on above: Order Comment: Alden padlila Type: BLOOD SPECIMENOrdering Facility: [facility] Address: [place] [address] Performed By: #### 3 4528-0, 30973-2 ####[facility] [id number] [place] [address] [place] Phosphate SerPl-mCncon 01-25 Phosphate [Mass/Vol] 4.5 mg/dL Normal 2.7-4.8 [facility] Comment on above: Order Comment: Speci men Type: BLOOD SPECIMENOrdering Facility: [facility] Address: [place] [id number] Result Comment: Resu lt rechecked. Performed By: #### 2 4323-8, 64830-1, 2777-1, HSTNT ####[facility] LABCLIA [id number] [place] [address] [place] Procalcitonin SerPl-mCncon 0 01-25-2023 Procalcitonin [Mass/Vol] 10.69 ng/mL High <0.09 [facility] Comment on above: Order Comment: Speci men Type: BLOOD SPECIMENOrdering Facility: [facility] Address: [place] [address] Result Comment: For a guided interpretation of test results, please visit the Change in Procalcitonin Calculator, [email or web address]. Performed By: #### 3 3959-8 ####[facility] LABIA [id number] [place] [address] [place] THERAPY NTon 01-25-2023 THERAPY NT Normal [facility] THERAPY NT Normal [facility] aPTT PPPon 01-25-2023 aPTT Coag (PPP) [Time] 29.8 s Normal 23.0-32.4 [facility] Comment on above: Order Comment: Speci men Type: BLOOD SPECIMENOrdering Facility: [facility] Address: [place] [address] Performed By: #### 3 4528-0, 40171-0 ####[facility] LABIA [id number] [place] [address] [place] ANES POSTPROC EVALon 023 ANES POSTPROC EVAL Normal [facility] ANES PRE-OPon 01-24-2023 ANES PRE-OP Normal [facility] Bacteria Bld Culton 01-25-20 23 Bacteria identified Cx Nom (Bld) CULTURE, BLOOD: No growth 5 days Normal [facility] Comment on above: Performed By: #### 6 00-7 ####[facility] LABCLIA [id number] [place] [address] [place] Bacteria identified Cx Nom (Bld) CULTURE, BLOOD: No growth 5 days Normal [facility] Comment on above: Performed By: #### 6 00-7 ####[facility] LABCLIA [id number] [place] [address] [place] Bacteria Fld Culton 01-25-20 Bacteria identified Cx Nom (Body fld) Abnormal [facility] Comment on above: Performed By: #### 6 09-17, 635-3 ####[facility] LABCLIA [id number] [place] [address] [place] Bacteria identified Cx Nom (Body fld) Abnormal [facility] Comment on above: Performed By: #### 6 09-17, -3 ####[facility] LABCLIA [id number] [place] [address] [place] Bacteria Spec Anaerobe Culto n 01-24-2023 Bacteria identified Anaer cx Nom (Unsp spec) Negative Normal [facility] Comment on above: Performed By: #### 6 35-3, 50540-1 ####[facility] LABCLIA [id number] [place] [address] [place] Bacteria identified Anaer cx Nom (Unsp spec) Negative Normal [facility] Comment on above: Performed By: #### 6 09-17, 635-3 ####[facility] LABCLIA [id number] [place] [id number] [place] Bacteria identified Anaer cx Nom (Unsp spec) Negative Normal [facility] Comment on above: Performed By: #### 6 09-17, 635-3 ####[facility] LABCLIA [id number] [facility] [address] [address] [place] Bacteria identified Anaer cx Nom (Unsp spec) Negative Normal [facility] Comment on above: Performed By: #### 4 3408-4, 635-3 ####[facility] LABCLIA [id number] [place] [address] [address] [place] Bacteria identified Anaer cx Nom (Unsp spec) Negative Normal [facility] Comment on above: Performed By: #### 6 35-3, 52172-3 ####[facility] LABCLIA [id number] [facility] [place] [id number] [place] Bacteria Tiss Culton 023 Bacteria identified Cx Nom (Tiss) Abnormal [facility] Comment on above: Performed By: #### 6 35-3, 47704-0 ####[facility] LABCLIA [id number] [facility] [address] [place] Bacteria identified Cx Nom (Tiss) ORGANISM ID: 1 Many Streptococcus pyogenes (group a streptococcus) Refer to specimen collected on 01/24/2023 at 0807 ([id number]) GRAM STAIN: Many Gram positive cocci Moderate Polymorphonuclear leukocytes Moderate Mononuclear cells Abnormal [facility] Comment on above: Performed By: #### 4 3408-4, 635-3 ####[facility] LABCLIA [id number] [facility] [place] [id number] [place] Bacteria identified Cx Nom (Tiss) ORGANISM ID: 1 Many Streptococcus pyogenes (group a streptococcus) Refer to specimen collected on 01/24/2023 at 0807 ([id number]) GRAM STAIN: Many Gram positive cocci Few Polymorphonuclear leukocytes Few Mononuclear cells Abnormal [facility] Comment on above: Performed By: #### 6 35-3, 02316-4 ####[facility] LABCLIA [id number] [place] [address] [address] [place] CARDIAC POCUSon 01-24-2023 CARDIAC POCUS Normal [facility] CBC panel Auto (Bld)on 01-24 Erythrocyte distribution width (RBC) [Ratio] 14.9 % Normal 11.5-15.0 [facility] Comment on above: Order Comment: Speci men Type: BLOOD SPECIMENOrdering Facility: [facility] Address: [address] [place] [address] Performed By: #### 5 8410-2 ####[facility] LABIA [id number] [address] [place] Hematocrit (Bld) [Volume fraction] 31.1 % Low 39.0-51.0 [facility] Comment on above: Order Comment: Speci men Type: BLOOD SPECIMENOrdering Facility: [facility] Address: [address] [place] [address] Performed By: #### 5 8410-2 ####[facility] LABIA [id number] [address] [place] Hemoglobin (Bld) [Mass/Vol] 10.5 g/dL Low 13.0-17.0 [facility] Comment on above: Order Comment: Speci men Type: BLOOD SPECIMENOrdering Facility: [facility] Address: [address] [place] [address] Performed By: #### 5 8410-2 ####[facility] LABIA [id number] [place] [address] [place] MCH (RBC) [Entitic mass] 25.5 pg Low 26.0-34.0 [facility] Comment on above: Order Comment: Speci men Type: BLOOD SPECIMENOrdering Facility: [facility] Address: [address] [place] [address] Performed By: #### 5 8410-2 ####[facility] LABIA [id number] [address] [place] MCHC (RBC) [Mass/Vol] 33.8 g/dL Normal 30.5-36.0 [facility] Comment on above: Order Comment: Speci men Type: BLOOD SPECIMENOrdering Facility: [facility] Address: [address] Performed By: #### 5 8410-2 ####[facility] LABIA [id number] [address] [place] MCV (RBC) [Entitic vol] 75.7 fL Low 80.0-100.0 [facility] Comment on above: Order Comment: Speci men Type: BLOOD SPECIMENOrdering Facility: [facility] Address: [address] Performed By: #### 5 8410-2 ####[facility] [id number] [place] [address] [place] Nucleated RBC (Bld) [#/Vol] 10*3/uL Normal <0.01 [facility] Comment on above: Order Comment: Speci men Type: BLOOD SPECIMENOrdering Facility: [facility] Address: [address] [place], [place] [address] Performed By: #### 5 8410-2 ####[facility] [id number] [place] [address] [place] Platelet mean volume (Bld) [Entitic vol] 11.9 fL Normal 9.0-12.7 [facility] Comment on above: Order Comment: Speci men Type: BLOOD SPECIMENOrdering Facility: [facility] Address: [address] Performed By: #### 5 8410-2 ####[facility] LABIA [id number] [place] [address] [place] Platelets (Bld) [#/Vol] 155 10*3/uL Normal 150-400 [facility] Comment on above: Order Comment: Speci men Type: BLOOD SPECIMENOrdering Facility: [facility] Address: [address] [place] [address] Result Comment: Resu lts checked and verified.No clot detected. Performed By: #### 5 8410-2 ####[facility] LABIA [id number] [place] [address] [place] RBC (Bld) [#/Vol] 4.11 10*6/uL Low 4.20-6.00 [facility] Comment on above: Order Comment: Speci men Type: BLOOD SPECIMENOrdering Facility: [facility] Address: [address] [place] [address] Performed By: #### 5 8410-2 ####[facility] [id number] [place] [address] [place] WBC (Bld) [#/Vol] 38.68 10*3/uL High 3.70-11.00 [facility] Comment on above: Order Comment: Speci men Type: BLOOD SPECIMENOrdering Facility: [facility] Address: [address] [place] [address] Performed By: #### 5 8410-2 ####[facility] [id number] [place] [address] [place] Erythrocyte distribution width (RBC) [Ratio] 14.7 % Normal 11.5-15.0 [facility] Comment on above: Order Comment: Speci men Type: BLOOD SPECIMENOrdering Facility: [facility] Address: [address] [place] [address] Performed By: #### 5 8410-2 ####[facility] [id number] [place] [address] [place] Hematocrit (Bld) [Volume fraction] 38.2 % Low 39.0-51.0 [facility] Comment on above: Order Comment: Speci men Type: BLOOD SPECIMENOrdering Facility: [facility] Address: [address] [place] [address] Performed By: #### 5 8410-2 ####[facility] [id number] [place] [address] [place] Hemoglobin (Bld) [Mass/Vol] 13.1 g/dL Normal 13.0-17.0 [facility] Comment on above: Order Comment: Speci men Type: BLOOD SPECIMENOrdering Facility: [facility] Address: [address] [place] [address] Performed By: #### 5 8410-2 ####[facility] [id number] [place] [address] [place] MCH (RBC) [Entitic mass] 25.9 pg Low 26.0-34.0 [facility] Comment on above: Order Comment: Speci men Type: BLOOD SPECIMENOrdering Facility: [facility] Address: [address] [place] [address] Performed By: #### 5 8410-2 ####[facility] [id number] [address] [place] MCHC (RBC) [Mass/Vol] 34.3 g/dL Normal 30.5-36.0 [facility] Comment on above: Order Comment: Speci men Type: BLOOD SPECIMENOrdering Facility: [facility] Address: [address] [place] [address] Performed By: #### 5 8410-2 ####[facility] [id number] [place] [address] [place] MCV (RBC) [Entitic vol] 75.6 fL Low 80.0-100.0 [facility] Comment on above: Order Comment: Speci men Type: BLOOD SPECIMENOrdering Facility: [facility] Address: [address] [place] [address] Performed By: #### 5 8410-2 ####[facility] [id number] [place] [address] [place] Nucleated RBC (Bld) [#/Vol] 10*3/uL Normal <0.01 [facility] Comment on above: Order Comment: Speci men Type: BLOOD SPECIMENOrdering Facility: [facility] Address: [address] [place], [place] [address] Performed By: #### 5 8410-2 ####[facility] LABCLIA [id number] [place] [address] [place] Platelet mean volume (Bld) [Entitic vol] 12.5 fL Normal 9.0-12.7 [facility] Comment on above: Order Comment: Speci men Type: BLOOD SPECIMENOrdering Facility: [facility] Address: [address] [place], [place] [address] Performed By: #### 5 8410-2 ####[facility] LABCLIA [id number] [place] [address] [place] Platelets (Bld) [#/Vol] 145 10*3/uL Low 150-400 [facility] Comment on above: Order Comment: Speci men Type: BLOOD SPECIMENOrdering Facility: [facility] Address: [address] [place], [place] [address] Performed By: #### 5 8410-2 ####[facility] LABCLIA [id number] [place] [address] [place] RBC (Bld) [#/Vol] 5.05 10*6/uL Normal 4.20-6.00 [facility] Comment on above: Order Comment: Speci men Type: BLOOD SPECIMENOrdering Facility: [facility] Address: [address] [place], [place] [address] Performed By: #### 5 8410-2 ####[facility] LABCLIA [id number] [place] [address] [place] WBC (Bld) [#/Vol] 41.33 10*3/uL High 3.70-11.00 [facility] Comment on above: Order Comment: Speci men Type: BLOOD SPECIMENOrdering Facility: [facility] Address: [address] [place], [place] [address] Performed By: #### 5 8410-2 ####[facility] LABCLIA [id number] [place] [address] [place] CONSULTon 01-24-2023 CONSULT Normal [facility] CONSULT Normal [facility] CONSULT PROGon 01-24-2023 CONSULT PROG Normal [facility] CRP SerPl-mCncon 01-24-2023 CRP [Mass/Vol] 29.7 mg/dL High <0.9 [facility] Comment on above: Order Comment: Speci men Type: BLOOD SPECIMENOrdering Facility: [facility] Address: [address] [place], [place] [address] Performed By: #### 1 988-5, 64913-6, 2777-1, HSTNT, 53512-9 ####[facility] LABCLIA [id number] [place] [address] [place] Comprehensive metabolic 2000 panelon 01-24-2023 Albumin [Mass/Vol] 1.7 g/dL Low 3.9-4.9 [facility] Comment on above: Order Comment: Speci men Type: BLOOD SPECIMENOrdering Facility: [facility] Address: [address] Performed By: #### 1 9123-9, 2777-, 95682-9 ####[facility] LABCLIA [id number] [place] [address] [place] ALP [Catalytic activity/Vol] 127 U/L High 38-113 [facility] Comment on above: Order Comment: Speci men Type: BLOOD SPECIMENOrdering Facility: [facility] Address: [address] [place], [place] [address] Performed By: #### 1 9123-9, 2777-1, 89045-9 ####[facility] LABCLIA [id number] [place] [address] [place] ALT [Catalytic activity/Vol] 48 U/L Normal 10-54 [facility] Comment on above: Order Comment: Speci men Type: BLOOD SPECIMENOrdering Facility: [facility] Address: [address] [place] [address] Result Comment: Resu lts may be falsely increased due to interference from hemolysis. Suggest reorder as clinically indicated. Performed By: #### 1 9123-9, 2777-, 00109-3 ####[facility] LABIA [id number] [place] [address] [place] Anion gap [Moles/Vol] 16 mmol/L Normal 9-18 [facility] Comment on above: Order Comment: Speci men Type: BLOOD SPECIMENOrdering Facility: [facility] Address: [address] [place] [address] Performed By: #### 1 9123-9, 27705-14, 18638-6 ####[facility] LABIA [id number] [address] [place] AST [Catalytic activity/Vol] 39 U/L Normal 14-40 [facility] Comment on above: Order Comment: Speci men Type: BLOOD SPECIMENOrdering Facility: [facility] Address: [address] [place] [address] Result Comment: Resu lts may be falsely increased due to interference from hemolysis. Suggest reorder as clinically indicated. Performed By: #### 1 9123-9, 2777-, 10182-5 ####[facility] LABIA [id number] [place] [address] [place] Bilirubin [Mass/Vol] 1.8 mg/dL High 0.2-1.3 [facility] Comment on above: Order Comment: Speci men Type: BLOOD SPECIMENOrdering Facility: [facility] Address: [address] [place] [address] Performed By: #### 1 9123-9, 2777-, 13464-5 ####[facility] LABCLIA [id number] [place] [address] [place] Calcium [Mass/Vol] 7.2 mg/dL Low 8.5-10.2 [facility] Comment on above: Order Comment: Speci men Type: BLOOD SPECIMENOrdering Facility: [facility] Address: [address] [place] [address] Performed By: #### 1 9123-9, 27705-14, 78592-3 ####[facility] LABCLIA [id number] [place] [address] [place] Chloride [Moles/Vol] 101 mmol/L Normal 97-105 [facility] Comment on above: Order Comment: Speci men Type: BLOOD SPECIMENOrdering Facility: [facility] Address: [address] [place] [address] Performed By: #### 1 9123-9, 27705-14, 96207-9 ####[facility] LABCLIA [id number] [place] [address] [place] CO2 [Moles/Vol] 15 mmol/L Low 22-30 [facility] Comment on above: Order Comment: Speci men Type: BLOOD SPECIMENOrdering Facility: [facility] Address: [address] [place] [address] Performed By: #### 1 9123-9, 27705-14, 62879-5 ####[facility] LABCLIA [id number] [place] [id number] [place] Creatinine [Mass/Vol] 1.63 mg/dL High 0.73-1.22 [facility] Comment on above: Order Comment: Speci men Type: BLOOD SPECIMENOrdering Facility: [facility] Address: [address] [place] [address] Performed By: #### 1 9123-9, 27705-14, 48700-3 ####[facility] LABCLIA [id number] [address] [place] ESTIMATED GLOMERULAR FILTRATION RATE 48 mL/min/1.73m??? Low >=60 [facility] Comment on above: Order Comment: Alden padilla Type: BLOOD SPECIMENOrdering Facility: [facility] Address: [address] [place] [address] Result Comment: Veronica mated Glomerular Filtration Rate [...] actual GFR. Performed By: #### 1 9123-9, 2777-, ####[facility] LABIA [id number] [address] [place] Glucose [Mass/Vol] 140 mg/dL High 74-99 [facility] Comment on above: Order Comment: Alden padilla Type: BLOOD SPECIMENOrdering Facility: [facility] Address: [address] [place] [address] Result Comment: The [place] [employer] (ADA) provides guidance for cutoff [...] Standards of Medical Care in Diabetes 2016, [place] [employer]. Diabetes Care. 2016.39(Suppl 1). Performed By: #### 1 9123-9, 2777-, 14877-4 ####[facility] LABCLIA [id number] [place] [address] [place] Potassium [Moles/Vol] 5.8 mmol/L High 3.7-5.1 [facility] Comment on above: Order Comment: Speci men Type: BLOOD SPECIMENOrdering Facility: [facility] Address: [address] [place] [address] Performed By: #### 1 9123-9, 277-, 56165-3 ####[facility] LABCLIA [id number] [place] [address] [place] Protein [Mass/Vol] 4.7 g/dL Low 6.3-8.0 [facility] Comment on above: Order Comment: Speci men Type: BLOOD SPECIMENOrdering Facility: [facility] Address: [address] [place] [address] Performed By: #### 1 9123-9, 2776-11, 80307-4 ####[facility] LABCLIA [id number] [place] [address] [place] Sodium [Moles/Vol] 132 mmol/L Low 136-144 [facility] Comment on above: Order Comment: Speci men Type: BLOOD SPECIMENOrdering Facility: [facility] Address: [address] [place] [address] Performed By: #### 1 9123-9, 27705-14, 27208-8 ####[facility] LABCLIA [id number] [place] [address] [place] Urea nitrogen [Mass/Vol] 64 mg/dL High 9-24 [facility] [facility] Comment on above: Order Comment: Speci men Type: BLOOD SPECIMENOrdering Facility: [facility] Address: [address] [place], [place] [address] Performed By: #### 1 9123-9, 27705-14, 88704-9 ####[facility] LABCLIA [id number] [place] [address] [place] Albumin [Mass/Vol] 1.9 g/dL Low 3.9-4.9 [facility] Comment on above: Order Comment: Speci men Type: BLOOD SPECIMENOrdering Facility: [facility] Address: [address] [place] [address] Performed By: #### 2 4323-8, 34424-8 ####[facility] LABCLIA [id number] [place] [address] [place] ALP [Catalytic activity/Vol] 167 U/L High 38-113 [facility] Comment on above: Order Comment: Speci men Type: BLOOD SPECIMENOrdering Facility: [facility] Address: [address] [place] [address] Performed By: #### 2 4323-8, 66911-7 ####[facility] LABCLIA [id number] [address] [place] ALT [Catalytic activity/Vol] 77 U/L High 10-54 [facility] Comment on above: Order Comment: Speci men Type: BLOOD SPECIMENOrdering Facility: [facility] Address: [address] [place] [address] Performed By: #### 2 4323-8, 46681-6 ####[facility] LABCLIA [id number] [place] [address] [place] Anion gap [Moles/Vol] 19 mmol/L High 9-18 [facility] Comment on above: Order Comment: Speci men Type: BLOOD SPECIMENOrdering Facility: [facility] Address: [address] [place] [address] Performed By: #### 2 4323-8, 14229-0 ####[facility] LABCLIA [id number] [place] [address] [place] AST [Catalytic activity/Vol] 50 U/L High 14-40 [facility] Comment on above: Order Comment: Speci men Type: BLOOD SPECIMENOrdering Facility: [facility] Address: [address] Performed By: #### 2 4323-8, 47753-8 ####[facility] LABCLIA [id number] [place] [address] [place] Bilirubin [Mass/Vol] 2.1 mg/dL High 0.2-1.3 [facility] Comment on above: Order Comment: Speci men Type: BLOOD SPECIMENOrdering Facility: [facility] Address: [address] Performed By: #### 2 4323-8, 70065-3 ####[facility] LABCLIA [id number] [place] [address] [place] Calcium [Mass/Vol] 7.6 mg/dL Low 8.5-10.2 [facility] Comment on above: Order Comment: Speci men Type: BLOOD SPECIMENOrdering Facility: [facility] Address: [address] Performed By: #### 2 4323-8, 45863-0 ####[facility] LABCLIA [id number] [place] [address] [place] Chloride [Moles/Vol] 98 mmol/L Normal 97-105 [facility] Comment on above: Order Comment: Speci men Type: BLOOD SPECIMENOrdering Facility: [facility] Address: [address] Performed By: #### 2 4323-8, 75306-9 ####[facility] LABCLIA [id number] [place] [address] [place] CO2 [Moles/Vol] 16 mmol/L Low 22-30 [facility] Comment on above: Order Comment: Speci men Type: BLOOD SPECIMENOrdering Facility: [facility] Address: [address] Performed By: #### 2 4323-8, 62996-5 ####[facility] LABIA [id number] [place] [address] [place] Creatinine [Mass/Vol] 1.84 mg/dL High 0.73-1.22 [facility] Comment on above: Order Comment: Speci men Type: BLOOD SPECIMENOrdering Facility: [facility] Address: [address] [place] [address] Performed By: #### 2 4323-8, 35807-1 ####[facility] LABIA [id number] [place] [address] [place] ESTIMATED GLOMERULAR FILTRATION RATE 42 mL/min/1.73m??? Low >=60 [facility] Comment on above: Order Comment: Speci men Type: BLOOD SPECIMENOrdering Facility: [facility] Address: [address] [place] [address] Result Comment: Veronica mated Glomerular Filtration Rate [...] actual GFR. Performed By: #### 2 4323-8, 38595-0 ####[facility] LABIA [id number] [place] [address] [place] Glucose [Mass/Vol] 94 mg/dL Normal 74-99 [facility] Comment on above: Order Comment: Speci men Type: BLOOD SPECIMENOrdering Facility: [facility] Address: [address] [address] Result Comment: The [place] [employer] (ADA) provides guidance for cutoff [...] Standards of Medical Care in Diabetes 2016, [place] [employer]. Diabetes Care. 2016.39(Suppl 1). Performed By: #### 2 4323-8, 00966-3 ####[facility] LABCLIA [id number] [place] [address] [place] Potassium [Moles/Vol] 5.0 mmol/L Normal 3.7-5.1 [facility] Comment on above: Order Comment: Speci men Type: BLOOD SPECIMENOrdering Facility: [facility] Address: [address] [place] [address] Performed By: #### 2 4323-8, 20760-4 ####[facility] LABIA [id number] [place] [address] [place] Protein [Mass/Vol] 4.6 g/dL Low 6.3-8.0 [facility] Comment on above: Order Comment: Speci men Type: BLOOD SPECIMENOrdering Facility: [facility] Address: [address] [place] [address] Performed By: #### 2 4323-8, 84010-8 ####[facility] LABCLIA [id number] [place] [address] [place] Sodium [Moles/Vol] 133 mmol/L Low 136-144 [facility] Comment on above: Order Comment: Speci men Type: BLOOD SPECIMENOrdering Facility: [facility] Address: [address] [place] [address] Performed By: #### 2 4323-8, 03593-0 ####[facility] LABCLIA [id number] [place] [address] [place] Urea nitrogen [Mass/Vol] 64 mg/dL High 9-24 [facility] Comment on above: Order Comment: Speci men Type: BLOOD SPECIMENOrdering Facility: [facility] Address: [address] [id number] Performed By: #### 2 4323-8, 72104-8 ####[facility] LABCLIA [id number] [place] [address] [place] ECG COMPLETEon 01-24-2023 ECG COMPLETE Normal [facility] ER URINE PROFILEon 3 Bilirubin Ql (U) MODERATE Abnormal NEGATIVE [facility] Comment on above: Performed By: #### U MICRO, ERUR #### [facility] [address] [address] [address] Good Castellano Clarity (U) CLEAR Normal CLEAR [facility] Comment on above: Performed By: #### U MICRO, ERUR #### [facility] [address] [address] [address] Good Castellano Color (U) DK. YELLOW Normal YELLOW [facility] Comment on above: Performed By: #### U MICRO, ERUR #### [facility] [address] [address] [address] oGod BALLESTEROS A micrscopic examination will be performed if indicated. Normal [facility] Comment on above: Performed By: #### U MICRO, ERUR #### [facility] [address] [address] [address] Good Castellano Glucose Ql (U) 100 mg/dl Abnormal NEGATIVE [facility] Comment on above: Performed By: #### U MICRO, ERUR #### [facility] [address] [address] [address] Good Castellano Hemoglobin Ql (U) SMALL Abnormal NEGATIVE [facility] Comment on above: Performed By: #### U MICRO, ERUR #### [facility] [address] [address] [address] Good Castellano Ketones Ql (U) Negative Normal NEGATIVE [facility] Comment on above: Performed By: #### U MICRO, ERUR #### [facility] [address] [address] [address] Good Castellano LEUKOCYTES Negative Normal NEGATIVE [facility] Comment on above: Performed By: #### U MICRO, ERUR #### [facility] [address] [place] [address] Dr. Good Castellano Nitrite Ql (U) Negative Normal NEGATIVE [facility] Comment on above: Performed By: #### U MICRO, ERUR #### [facility] [address] [address] [address] Good Castellano pH (U) 5.0 [pH] Normal 5-[address] [facility] Comment on above: Performed By: #### U MICRO, ERUR #### [facility] [address] [place] [address] Dr. Good Castellano Protein (U) [Mass/Vol] 30 mg/dL Abnormal NEGATIVE/ TRACE [facility] Comment on above: Performed By: #### U MICRO, ERUR #### [facility] [address] [place] [address] Dr. Good Castellano SPEC GRAVITY 1.015 Normal 1.005-<=1.025 [facility] Comment on above: Performed By: #### U MICRO, ERUR #### [facility] [address] [place] [address] Dr. Good Castellano UR MICRO IND INDICATED Normal [facility] Comment on above: Performed By: #### U MICRO, ERUR #### [facility] [address] [place] [address] Dr. Good Castellano Urobilinogen Qn (U) 4 {Jan'U}/dL Abnormal 0.2 - 1.[address] [facility] Comment on above: Performed By: #### U MICRO, ERUR #### [facility] [address] [place] [address] Dr. Good Castellano ESR Westergren method (Bld) [Velocity]on 01-24-2023 ESR (Bld) [Velocity] 55 mm/h High 0-15 [facility] Comment on above: Order Comment: Speci men Type: BLOOD SPECIMENOrdering Facility: [facility] Address: [address] [place] [address] Performed By: #### 4 537-7, 93054-6 ####[facility] LABIA [id number] [place] [address] [place] Fibrinogen PPP-mCncon 2022 Fibrinogen Coag (PPP) [Mass/Vol] mg/dL High 200-400 [facility] Comment on above: Order Comment: Speci men Type: BLOOD SPECIMENOrdering Facility: [facility] Address: [address] [place] [address] Result Comment: Samp le checked for clot.Result rechecked. Performed By: #### 3 4528-0, 3255-7 ####[facility] LABIA [id number] [place] [address] [place] Gas and Carbon monoxide pane l (BldV)on 01-24-2023 BASE DEFICIT, VENOUS -5 mmol/L Low -2-0 [facility] Comment on above: Order Comment: Speci men Type: VENOUS BLOOD SPECIMENOrdering Facility: [facility] Address: [address] [place] [address] Performed By: #### 2 4344-4 ####[facility] LABIA [id number] [place] [address] [place] Body temperature 98.78 [degF] Normal [facility] Comment on above: Order Comment: Speci men Type: VENOUS BLOOD SPECIMENOrdering Facility: [facility] Address: [address] [place] [address] Performed By: #### 2 4344-4 ####[facility] LABIA [id number] [place] [address] [place] Calcium.ionized (Bld) [Mass/Vol] 1.12 mmol/L Normal 1.08-1.30 [facility] Comment on above: Order Comment: Speci men Type: VENOUS BLOOD SPECIMENOrdering Facility: [facility] Address: [address] [address] Performed By: #### 2 4344-4 ####[facility] LABIA [id number] [place] [address] [place] Calcium.ionized adjusted to pH 7.4 (BldA) [Moles/Vol] 1.12 mmol/L Normal 1.08-1.30 [facility] Comment on above: Order Comment: Speci men Type: VENOUS BLOOD SPECIMENOrdering Facility: [facility] Address: [address] [address] Performed By: #### 2 4344-4 ####[facility] [id number] [place] [address] [place] Carboxyhemoglobin (BldV) [Mass fraction] 1.2 % Normal 0.0-2.0 [facility] Comment on above: Order Comment: Speci men Type: VENOUS BLOOD SPECIMENOrdering Facility: [facility] Address: [address] [address] Result Comment: Carb oxyhemoglobin Reference Range for Smokers: 2.0-8.0% Performed By: #### 2 4344-4 ####[facility] [id number] [place] [address] [place] CO2 (BldV) [Partial pressure] 32 mm[Hg] Low 42-55 [facility] Comment on above: Order Comment: Speci men Type: VENOUS BLOOD SPECIMENOrdering Facility: [facility] Address: [address] Performed By: #### 2 4344-4 ####[facility] [id number] [place] [address] [place] CO2 [Moles/Vol] 20 mmol/L Low 25-29 [facility] Comment on above: Order Comment: Speci men Type: VENOUS BLOOD SPECIMENOrdering Facility: [facility] Address: [address] Performed By: #### 2 4344-4 ####[facility] LABCLIA [id number] [address] [place] CO2 adjusted to patient's actual temperature (BldV) [Partial pressure] 32 mmHg Low 42-55 [facility] Comment on above: Order Comment: Speci men Type: VENOUS BLOOD SPECIMENOrdering Facility: [facility] Address: [address] Performed By: #### 2 4344-4 ####[facility] LABCLIA [id number] [place] [address] [place] Glucose [Mass/Vol] 236 mg/dL High 60-105 [facility] Comment on above: Order Comment: Speci men Type: VENOUS BLOOD SPECIMENOrdering Facility: [facility] Address: [address] Performed By: #### 2 4344-4 ####[facility] LABCLIA [id number] [place] [address] [place] HCO3 (Bld) [Moles/Vol] 19 mmol/L Low 24-28 [facility] Comment on above: Order Comment: Speci men Type: VENOUS BLOOD SPECIMENOrdering Facility: [facility] Address: [address] [place] [address] Performed By: #### 2 4344-4 ####[facility] LABCLIA [id number] [place] [address] [place] Hematocrit (Bld) [Volume fraction] 23.3 % Low 39.0-51.0 [facility] Comment on above: Order Comment: Speci men Type: VENOUS BLOOD SPECIMENOrdering Facility: [facility] Address: [address] Performed By: #### 2 4344-4 ####[facility] LABCLIA [id number] [place] [address] [place] Hemoglobin (Bld) [Mass/Vol] 7.5 g/dL Low 13.0-17.0 [facility] Comment on above: Order Comment: Speci men Type: VENOUS BLOOD SPECIMENOrdering Facility: [facility] Address: [address] [address] Performed By: #### 2 4344-4 ####[facility] LABCLIA [id number] [place] [address] [place] Lactate [Moles/Vol] 1.3 mmol/L Normal 0.5-2.2 [facility] Comment on above: Order Comment: Speci men Type: VENOUS BLOOD SPECIMENOrdering Facility: [facility] Address: [address] [place] [address] Performed By: #### 2 4344-4 ####[facility] LABCLIA [id number] [place] [address] [place] LITERS 2 Liters/min Normal [facility] Comment on above: Order Comment: Speci men Type: VENOUS BLOOD SPECIMENOrdering Facility: [facility] Address: [address] [place], [place] [address] Performed By: #### 2 4344-4 ####[facility] LABCLIA [id number] [place] [address] [place] Methemoglobin (Bld) [Mass fraction] 1.7 % High 0.0-1.5 [facility] Comment on above: Order Comment: Speci men Type: VENOUS BLOOD SPECIMENOrdering Facility: [facility] Address: [address] Performed By: #### 2 4344-4 ####[facility] LABCLIA [id number] [place] [address] [place] O2 THERAPY NC = Nasal Cannula Normal [facility] Comment on above: Order Comment: Speci men Type: VENOUS BLOOD SPECIMENOrdering Facility: [facility] Address: [address] [place] [address] Performed By: #### 2 4344-4 ####[facility] LABCLIA [id number] [address] [place] Oxygen (BldV) [Partial pressure] 92 mm[Hg] High 35-45 [facility] Comment on above: Order Comment: Speci men Type: VENOUS BLOOD SPECIMENOrdering Facility: [facility] Address: [address] [place] [address] Performed By: #### 2 4344-4 ####[facility] LABCLIA [id number] [address] [place] Oxygen adjusted to patient's actual temperature (BldV) [Partial pressure] 92 mmHg High 35-45 [facility] Comment on above: Order Comment: Speci men Type: VENOUS BLOOD SPECIMENOrdering Facility: [facility] Address: [address] [place] [address] Performed By: #### 2 4344-4 ####[facility] LABCLIA [id number] [address] [place] Oxygen saturation in Venous blood 97 % High 60-85 [facility] Comment on above: Order Comment: Speci men Type: VENOUS BLOOD SPECIMENOrdering Facility: [facility] Address: [address] [place] [address] Performed By: #### 2 4344-4 ####[facility] LABCLIA [id number] [place] [id number] [place] Oxyhemoglobin (BldV) [Mass fraction] 94 % High 60-85 [facility] Comment on above: Order Comment: Speci men Type: VENOUS BLOOD SPECIMENOrdering Facility: [facility] Address: [address] [id number] Performed By: #### 2 4344-4 ####[facility] LABCLIA [id number] [place] [address] [place] pH (BldV) 7.39 [pH] Normal 7.32-7.42 [facility] Comment on above: Order Comment: Speci men Type: VENOUS BLOOD SPECIMENOrdering Facility: [facility] Address: [address] [place] [address] Performed By: #### 2 4344-4 ####[facility] LABCLIA [id number] [place] [address] [place] pH adjusted to patient's actual temperature (BldV) 7.39 Normal 7.32-7.42 [facility] Comment on above: Order Comment: Speci men Type: VENOUS BLOOD SPECIMENOrdering Facility: [facility] Address: [address] [place] [address] Performed By: #### 2 4344-4 ####[facility] LABCLIA [id number] [place] [address] [place] Potassium [Moles/Vol] 3.9 mmol/L Normal 3.5-5.0 [facility] Comment on above: Order Comment: Speci men Type: VENOUS BLOOD SPECIMENOrdering Facility: [facility] Address: [address] [place], [place] [address] Performed By: #### 2 4344-4 ####[facility] LABCLIA [id number] [place] [address] [place] Sodium [Moles/Vol] 127 mmol/L Low 136-144 [facility] Comment on above: Order Comment: Speci men Type: VENOUS BLOOD SPECIMENOrdering Facility: [facility] Address: [address] [place], [place] [address] Performed By: #### 2 4344-4 ####[facility] LABCLIA [id number] [place] [address] [place] BASE DEFICIT, VENOUS -5 mmol/L Low -2-0 [facility] Comment on above: Order Comment: Speci men Type: VENOUS BLOOD SPECIMENOrdering Facility: [facility] Address: [address] [address] Performed By: #### 2 4344-4 ####[facility] LABIA [id number] [place] [address] [place] Body temperature 98.78 [degF] Normal [facility] Comment on above: Order Comment: Speci men Type: VENOUS BLOOD SPECIMENOrdering Facility: [facility] Address: [address] [address] Performed By: #### 2 4344-4 ####[facility] LABIA [id number] [place] [address] [place] Calcium.ionized (Bld) [Mass/Vol] 0.87 mmol/L Low 1.08-1.30 [facility] Comment on above: Order Comment: Speci men Type: VENOUS BLOOD SPECIMENOrdering Facility: [facility] Address: [address] [address] Performed By: #### 2 4344-4 ####[facility] [id number] [place] [address] [place] Calcium.ionized adjusted to pH 7.4 (BldA) [Moles/Vol] 0.86 mmol/L Low 1.08-1.30 [facility] Comment on above: Order Comment: Speci men Type: VENOUS BLOOD SPECIMENOrdering Facility: [facility] Address: [address] Performed By: #### 2 4344-4 ####[facility] [id number] [place] [address] [place] Carboxyhemoglobin (BldV) [Mass fraction] 1.0 % Normal 0.0-2.0 [facility] Comment on above: Order Comment: Speci men Type: VENOUS BLOOD SPECIMENOrdering Facility: [facility] Address: [address] [place], [place] [address] Result Comment: Carb oxyhemoglobin Reference Range for Smokers: 2.0-8.0% Performed By: #### 2 4344-4 ####[facility] LABCLIA [id number] [address] [place] CO2 (BldV) [Partial pressure] 32 mm[Hg] Low 42-55 [facility] Comment on above: Order Comment: Speci men Type: VENOUS BLOOD SPECIMENOrdering Facility: [facility] Address: [address] Performed By: #### 2 4344-4 ####[facility] LABCLIA [id number] [address] [place] CO2 [Moles/Vol] 20 mmol/L Low 25-29 [facility] Comment on above: Order Comment: Speci men Type: VENOUS BLOOD SPECIMENOrdering Facility: [facility] Address: [address] [place] [address] Performed By: #### 2 4344-4 ####[facility] LABCLIA [id number] [address] [place] CO2 adjusted to patient's actual temperature (BldV) [Partial pressure] 32 mmHg Low 42-55 [facility] Comment on above: Order Comment: Speci men Type: VENOUS BLOOD SPECIMENOrdering Facility: [facility] Address: [address] [place], [place] [address] Performed By: #### 2 4344-4 ####[facility] LABCLIA [id number] [address] [place] COMMENTS Urgent Value: ICA NCA Normal [facility] Comment on above: Order Comment: Speci men Type: VENOUS BLOOD SPECIMENOrdering Facility: [facility] Address: [address] [place], [place] [address] Performed By: #### 2 4344-4 ####[facility] LABCLIA [id number] [address] [place] DATE/TIME NOTIFIED [id number] PM Normal [facility] Comment on above: Order Comment: Speci men Type: VENOUS BLOOD SPECIMENOrdering Facility: [facility] Address: [address] Performed By: #### 2 4344-4 ####[facility] LABCLIA [id number] [place] [address] [place] Glucose [Mass/Vol] 140 mg/dL High 60-105 [facility] Comment on above: Order Comment: Speci men Type: VENOUS BLOOD SPECIMENOrdering Facility: [facility] Address: [address] Performed By: #### 2 4344-4 ####[facility] LABCLIA [id number] [place] [address] [place] HCO3 (Bld) [Moles/Vol] 19 mmol/L Low 24-28 [facility] Comment on above: Order Comment: Speci men Type: VENOUS BLOOD SPECIMENOrdering Facility: [facility] Address: [address] Performed By: #### 2 4344-4 ####[facility] LABCLIA [id number] [place] [address] [place] Hematocrit (Bld) [Volume fraction] 23.6 % Low 39.0-51.0 [facility] Comment on above: Order Comment: Speci men Type: VENOUS BLOOD SPECIMENOrdering Facility: [facility] Address: [address] [place] [address] Performed By: #### 2 4344-4 ####[facility] LABCLIA [id number] [place] [address] [place] Hemoglobin (Bld) [Mass/Vol] 7.6 g/dL Low 13.0-17.0 [facility] Comment on above: Order Comment: Speci men Type: VENOUS BLOOD SPECIMENOrdering Facility: [facility] Address: [address] [place] [address] Performed By: #### 2 4344-4 ####[facility] LABIA [id number] [place] [address] [place] Lactate [Moles/Vol] 1.7 mmol/L Normal 0.5-2.2 [facility] Comment on above: Order Comment: Speci men Type: VENOUS BLOOD SPECIMENOrdering Facility: [facility] Address: [address] Performed By: #### 2 4344-4 ####[facility] LABIA [id number] [place] [address] [place] Methemoglobin (Bld) [Mass fraction] 1.2 % Normal 0.0-1.5 [facility] Comment on above: Order Comment: Speci men Type: VENOUS BLOOD SPECIMENOrdering Facility: [facility] Address: [address] [address] Performed By: #### 2 4344-4 ####[facility] [id number] [address] [place] NOTIFIED WHOM LEILANI CARRANZA Normal C [facility] Comment on above: Order Comment: Speci men Type: VENOUS BLOOD SPECIMENOrdering Facility: [facility] Address: [address] Performed By: #### 2 4344-4 ####[facility] LABIA [id number] [place] [address] [place] O2 THERAPY NC = Nasal Cannula Normal [facility] Comment on above: Order Comment: Speci men Type: VENOUS BLOOD SPECIMENOrdering Facility: [facility] Address: [address] Performed By: #### 2 4344-4 ####[facility] LABIA [id number] [place] [address] [place] Oxygen (BldV) [Partial pressure] 58 mm[Hg] High 35-45 [facility] Comment on above: Order Comment: Speci men Type: VENOUS BLOOD SPECIMENOrdering Facility: [facility] Address: [address] [place] [address] Performed By: #### 2 4344-4 ####[facility] LABCLIA [id number] [place] [address] [place] Oxygen adjusted to patient's actual temperature (BldV) [Partial pressure] 58 mmHg High 35-45 [facility] Comment on above: Order Comment: Speci men Type: VENOUS BLOOD SPECIMENOrdering Facility: [facility] Address: [address] [place], [place] [address] Performed By: #### 2 4344-4 ####[facility] LABCLIA [id number] [place] [address] [place] Oxygen saturation in Venous blood 87 % High 60-85 [facility] Comment on above: Order Comment: Speci men Type: VENOUS BLOOD SPECIMENOrdering Facility: [facility] Address: [address] [place] [address] Performed By: #### 2 4344-4 ####[facility] LABCLIA [id number] [place] [address] [place] Oxyhemoglobin (BldV) [Mass fraction] 85 % Normal 60-85 [facility] Comment on above: Order Comment: Speci men Type: VENOUS BLOOD SPECIMENOrdering Facility: [facility] Address: [address] [place] [address] Performed By: #### 2 4344-4 ####[facility] LABCLIA [id number] [place] [address] [place] pH (BldV) 7.40 [pH] Normal 7.32-7.42 [facility] Comment on above: Order Comment: Speci men Type: VENOUS BLOOD SPECIMENOrdering Facility: [facility] Address: [address] [place] [address] Performed By: #### 2 4344-4 ####[facility] LABCLIA [id number] [place] [address] [place] pH adjusted to patient's actual temperature (BldV) 7.40 Normal 7.32-7.42 [facility] Comment on above: Order Comment: Speci men Type: VENOUS BLOOD SPECIMENOrdering Facility: [facility] Address: [address] [place] [address] Performed By: #### 2 4344-4 ####[facility] LABCLIA [id number] [place] [address] [place] Potassium [Moles/Vol] 3.9 mmol/L Normal 3.5-5.0 [facility] Comment on above: Order Comment: Speci men Type: VENOUS BLOOD SPECIMENOrdering Facility: [facility] Address: [address] Performed By: #### 2 4344-4 ####[facility] LABIA [id number] [place] [address] [place] Sodium [Moles/Vol] 131 mmol/L Low 136-144 [facility] Comment on above: Order Comment: Speci men Type: VENOUS BLOOD SPECIMENOrdering Facility: [facility] Address: [address] [place] [address] Performed By: #### 2 4344-4 ####[facility] LABCLIA [id number] [place] [address] [place] BASE DEFICIT, VENOUS -7 mmol/L Low -2-0 [facility] Comment on above: Order Comment: Speci men Type: VENOUS BLOOD SPECIMENOrdering Facility: [facility] Address: [address] [place] [address] Performed By: #### 2 4344-4 ####[facility] LABCLIA [id number] [address] [place] Body temperature 97.7 [degF] Normal [facility] Comment on above: Order Comment: Speci men Type: VENOUS BLOOD SPECIMENOrdering Facility: [facility] Address: [address] [place] [address] Performed By: #### 2 4344-4 ####[facility] LABCLIA [id number] [place] [address] [place] Calcium.ionized (Bld) [Mass/Vol] 1.04 mmol/L Low 1.08-1.30 [facility] Comment on above: Order Comment: Speci men Type: VENOUS BLOOD SPECIMENOrdering Facility: [facility] Address: [address] [place] [address] Performed By: #### 2 4344-4 ####[facility] LABCLIA [id number] [address] Calcium.ionized adjusted to pH 7.4 (BldA) [Moles/Vol] 1.02 mmol/L Low 1.08-1.30 [facility] Comment on above: Order Comment: Speci men Type: VENOUS BLOOD SPECIMENOrdering Facility: [facility] Address: [address] [place] [address] Performed By: #### 2 4344-4 ####[facility] LABCLIA [id number] [place] [address] [place] Carboxyhemoglobin (BldV) [Mass fraction] 1.0 % Normal 0.0-2.0 [facility] Comment on above: Order Comment: Speci men Type: VENOUS BLOOD SPECIMENOrdering Facility: [facility] Address: [address] [place], [place] [address] Result Comment: Carb oxyhemoglobin Reference Range for Smokers: 2.0-8.0% Performed By: #### 2 4344-4 ####[facility] LABCLIA [id number] [id number] [address] [place] CO2 (BldV) [Partial pressure] 32 mm[Hg] Low 42-55 [facility] Comment on above: Order Comment: Speci men Type: VENOUS BLOOD SPECIMENOrdering Facility: [facility] Address: [address] [place] [address] Performed By: #### 2 4344-4 ####[facility] LABCLIA [id number] [place] [address] [place] CO2 [Moles/Vol] 19 mmol/L Low 25-29 [facility] Comment on above: Order Comment: Speci men Type: VENOUS BLOOD SPECIMENOrdering Facility: [facility] Address: [address] Performed By: #### 2 4344-4 ####[facility] LABCLIA [id number] [place] [address] [place] CO2 adjusted to patient's actual temperature (BldV) [Partial pressure] 32 mmHg Low 42-55 [facility] Comment on above: Order Comment: Speci men Type: VENOUS BLOOD SPECIMENOrdering Facility: [facility] Address: [address] [place], [place] [address] Performed By: #### 2 4344-4 ####[facility] LABCLIA [id number] [place] [address] [place] Glucose [Mass/Vol] 119 mg/dL High 60-105 [facility] Comment on above: Order Comment: Speci men Type: VENOUS BLOOD SPECIMENOrdering Facility: [facility] Address: [address] [place] [address] Performed By: #### 2 4344-4 ####[facility] LABCLIA [id number] [place] [address] [place] HCO3 (Bld) [Moles/Vol] 18 mmol/L Low 24-28 [facility] Comment on above: Order Comment: Speci men Type: VENOUS BLOOD SPECIMENOrdering Facility: [facility] Address: [address] [place], [place] [address] Performed By: #### 2 4344-4 ####[facility] LABCLIA [id number] [place] [address] [place] Hematocrit (Bld) [Volume fraction] 23.6 % Low 39.0-51.0 [facility] Comment on above: Order Comment: Speci men Type: VENOUS BLOOD SPECIMENOrdering Facility: [facility] Address: [address] [address] Performed By: #### 2 4344-4 ####[facility] LABIA [id number] [place] [address] [place] Hemoglobin (Bld) [Mass/Vol] 7.6 g/dL Low 13.0-17.0 [facility] Comment on above: Order Comment: Speci men Type: VENOUS BLOOD SPECIMENOrdering Facility: [facility] Address: [address] [place] [address] Performed By: #### 2 4344-4 ####[facility] LABIA [id number] [place] [address] [place] Lactate [Moles/Vol] 5.4 mmol/L High 0.5-2.2 [facility] Comment on above: Order Comment: Speci men Type: VENOUS BLOOD SPECIMENOrdering Facility: [facility] Address: [address] [place], [place] [address] Performed By: #### 2 4344-4 ####[facility] LABIA [id number] [place] [address] [place] LITERS 2 Liters/min Normal [facility] Comment on above: Order Comment: Speci men Type: VENOUS BLOOD SPECIMENOrdering Facility: [facility] Address: [address] Performed By: #### 2 4344-4 ####[facility] LABIA [id number] [address] [place] Methemoglobin (Bld) [Mass fraction] 1.2 % Normal 0.0-1.5 [facility] Comment on above: Order Comment: Speci men Type: VENOUS BLOOD SPECIMENOrdering Facility: [facility] Address: [address] [address] Performed By: #### 2 4344-4 ####[facility] LABCLIA [id number] [address] OF [facility] O2 THERAPY NC = Nasal Cannula Normal [facility] Comment on above: Order Comment: Speci men Type: VENOUS BLOOD SPECIMENOrdering Facility: [facility] Address: [address] [address] Performed By: #### 2 4344-4 ####[facility] LABCLIA [id number] [address] [place] Oxygen (BldV) [Partial pressure] 31 mm[Hg] Low 35-45 [facility] Comment on above: Order Comment: Speci men Type: VENOUS BLOOD SPECIMENOrdering Facility: [facility] Address: [address] Performed By: #### 2 4344-4 ####[facility] LABCLIA [id number] [address] [place] Oxygen adjusted to patient's actual temperature (BldV) [Partial pressure] 30 mmHg Low 35-45 [facility] Comment on above: Order Comment: Speci men Type: VENOUS BLOOD SPECIMENOrdering Facility: [facility] Address: [address] [place] [address] Performed By: #### 2 4344-4 ####[facility] LABCLIA [id number] [address] [place] Oxygen saturation in Venous blood 44 % Low 60-85 [facility] Comment on above: Order Comment: Speci men Type: VENOUS BLOOD SPECIMENOrdering Facility: [facility] Address: [address] Performed By: #### 2 4344-4 ####[facility] LABCLIA [id number] [place] [address] [place] Oxyhemoglobin (BldV) [Mass fraction] 43 % Low 60-85 [facility] Comment on above: Order Comment: Speci men Type: VENOUS BLOOD SPECIMENOrdering Facility: [facility] Address: [address] Performed By: #### 2 4344-4 ####[facility] LABCLIA [id number] [place] [address] [place] pH (BldV) 7.36 [pH] Normal 7.32-7.42 [facility] Comment on above: Order Comment: Speci men Type: VENOUS BLOOD SPECIMENOrdering Facility: [facility] Address: [address] Performed By: #### 2 4344-4 ####[facility] LABIA [id number] [place] [address] [place] pH adjusted to patient's actual temperature (BldV) 7.36 Normal 7.32-7.42 [facility] Comment on above: Order Comment: Speci men Type: VENOUS BLOOD SPECIMENOrdering Facility: [facility] Address: [address] Performed By: #### 2 4344-4 ####[facility] LABCLIA [id number] [place] [address] [place] Potassium [Moles/Vol] 3.9 mmol/L Normal 3.5-5.0 [facility] Comment on above: Order Comment: Speci men Type: VENOUS BLOOD SPECIMENOrdering Facility: [facility] Address: [address] Performed By: #### 2 4344-4 ####[facility] LABCLIA [id number] [place] [address] [place] Sodium [Moles/Vol] 129 mmol/L Low 136-144 [facility] Comment on above: Order Comment: Speci men Type: VENOUS BLOOD SPECIMENOrdering Facility: [facility] Address: [address] [address] Performed By: #### 2 4344-4 ####[facility] LABCLIA [id number] [place] [address] [place] BASE DEFICIT, VENOUS -7 mmol/L Low -2-0 [facility] Comment on above: Order Comment: Speci men Type: VENOUS BLOOD SPECIMENOrdering Facility: [facility] Address: [address] [place] [address] Performed By: #### 2 4344-4 ####[facility] LABCLIA [id number] [place] [address] [place] Body temperature 98.24 [degF] Normal [facility] Comment on above: Order Comment: Speci men Type: VENOUS BLOOD SPECIMENOrdering Facility: [facility] Address: [address] [place] [address] Performed By: #### 2 4344-4 ####[facility] LABCLIA [id number] [place] [address] [place] Calcium.ionized (Bld) [Mass/Vol] 1.05 mmol/L Low 1.08-1.30 [facility] Comment on above: Order Comment: Speci men Type: VENOUS BLOOD SPECIMENOrdering Facility: [facility] Address: [address] Performed By: #### 2 4344-4 ####[facility] LABCLIA [id number] [place] [address] [place] Calcium.ionized adjusted to pH 7.4 (BldA) [Moles/Vol] 1.03 mmol/L Low 1.08-1.30 [facility] Comment on above: Order Comment: Speci men Type: VENOUS BLOOD SPECIMENOrdering Facility: [facility] Address: [address] [place] [address] Performed By: #### 2 4344-4 ####[facility] LABCLIA [id number] [place] [address] [place] Carboxyhemoglobin (BldV) [Mass fraction] 1.3 % Normal 0.0-2.0 [facility] Comment on above: Order Comment: Speci men Type: VENOUS BLOOD SPECIMENOrdering Facility: [facility] Address: [address] Result Comment: Carb oxyhemoglobin Reference Range for Smokers: 2.0-8.0% Performed By: #### 2 4344-4 ####[facility] LABCLIA [id number] [place] [address] [place] CO2 (BldV) [Partial pressure] 32 mm[Hg] Low 42-55 [facility] Comment on above: Order Comment: Speci men Type: VENOUS BLOOD SPECIMENOrdering Facility: [facility] Address: [address] Performed By: #### 2 4344-4 ####[facility] LABCLIA [id number] [place] [address] [place] CO2 [Moles/Vol] 18 mmol/L Low 25-29 [facility] Comment on above: Order Comment: Speci men Type: VENOUS BLOOD SPECIMENOrdering Facility: [facility] Address: [address] Performed By: #### 2 4344-4 ####[facility] LABCLIA [id number] [place] [address] [place] CO2 adjusted to patient's actual temperature (BldV) [Partial pressure] 32 mmHg Low 42-55 [facility] Comment on above: Order Comment: Speci men Type: VENOUS BLOOD SPECIMENOrdering Facility: [facility] Address: [address] Performed By: #### 2 4344-4 ####[facility] LABCLIA [id number] [place] [address] [place] Glucose [Mass/Vol] 180 mg/dL High 60-105 [facility] Comment on above: Order Comment: Speci men Type: VENOUS BLOOD SPECIMENOrdering Facility: [facility] Address: [address] [place] [address] Performed By: #### 2 4344-4 ####[facility] LABCLIA [id number] [place] [address] [place] HCO3 (Bld) [Moles/Vol] 17 mmol/L Low 24-28 [facility] Comment on above: Order Comment: Speci men Type: VENOUS BLOOD SPECIMENOrdering Facility: [facility] Address: [address] [place] [address] Performed By: #### 2 4344-4 ####[facility] LABCLIA [id number] [place] [address] [place] Hematocrit (Bld) [Volume fraction] 26.1 % Low 39.0-51.0 [facility] Comment on above: Order Comment: Speci men Type: VENOUS BLOOD SPECIMENOrdering Facility: [facility] Address: [address] Performed By: #### 2 4344-4 ####[facility] LABCLIA [id number] [place] [address] [place] Hemoglobin (Bld) [Mass/Vol] 8.4 g/dL Low 13.0-17.0 [facility] Comment on above: Order Comment: Speci men Type: VENOUS BLOOD SPECIMENOrdering Facility: [facility] Address: [address] Performed By: #### 2 4344-4 ####[facility] LABCLIA [id number] [place] [address] [place] Lactate [Moles/Vol] 4.0 mmol/L High 0.5-2.2 [facility] Comment on above: Order Comment: Speci men Type: VENOUS BLOOD SPECIMENOrdering Facility: [facility] Address: [address] [address] Performed By: #### 2 4344-4 ####[facility] LABCLIA [id number] [place] [address] [place] LITERS 2 Liters/min Normal [facility] Comment on above: Order Comment: Speci men Type: VENOUS BLOOD SPECIMENOrdering Facility: [facility] Address: [address] [place] [address] Performed By: #### 2 4344-4 ####[facility] LABCLIA [id number] [place] [address] [place] Methemoglobin (Bld) [Mass fraction] 1.1 % Normal 0.0-1.5 [facility] Comment on above: Order Comment: Speci men Type: VENOUS BLOOD SPECIMENOrdering Facility: [facility] Address: [address] [place] [address] Performed By: #### 2 4344-4 ####[facility] LABIA [id number] [place] [address] [place] O2 THERAPY NC = Nasal Cannula Normal [facility] Comment on above: Order Comment: Speci men Type: VENOUS BLOOD SPECIMENOrdering Facility: [facility] Address: [address] [place], [place] [address] Performed By: #### 2 4344-4 ####[facility] LABCLIA [id number] [place] [address] [place] Oxygen (BldV) [Partial pressure] 41 mm[Hg] Normal 35-45 [facility] Comment on above: Order Comment: Speci men Type: VENOUS BLOOD SPECIMENOrdering Facility: [facility] Address: [address] Performed By: #### 2 4344-4 ####[facility] LABCLIA [id number] [place] [address] [place] Oxygen adjusted to patient's actual temperature (BldV) [Partial pressure] 40 mmHg Normal 35-45 [facility] Comment on above: Order Comment: Speci men Type: VENOUS BLOOD SPECIMENOrdering Facility: [facility] Address: [address] Performed By: #### 2 4344-4 ####[facility] LABCLIA [id number] [place] [address] [place] Oxygen saturation in Venous blood 63 % Normal 60-85 [facility] Comment on above: Order Comment: Speci men Type: VENOUS BLOOD SPECIMENOrdering Facility: [facility] Address: [address] [place] [address] Performed By: #### 2 4344-4 ####[facility] LABCLIA [id number] [place] [address] [place] Oxyhemoglobin (BldV) [Mass fraction] 62 % Normal 60-85 [facility] Comment on above: Order Comment: Speci men Type: VENOUS BLOOD SPECIMENOrdering Facility: [facility] Address: [address] [place] [address] Performed By: #### 2 4344-4 ####[facility] LABCLIA [id number] [place] [address] [place] pH (BldV) 7.36 [pH] Normal 7.32-7.42 [facility] Comment on above: Order Comment: Speci men Type: VENOUS BLOOD SPECIMENOrdering Facility: [facility] Address: [address] Performed By: #### 2 4344-4 ####[facility] LABCLIA [id number] [place] [address] [place] pH adjusted to patient's actual temperature (BldV) 7.36 Normal 7.32-7.42 [facility] Comment on above: Order Comment: Speci men Type: VENOUS BLOOD SPECIMENOrdering Facility: [facility] Address: [address] [place] [address] Performed By: #### 2 4344-4 ####[facility] LABCLIA [id number] [place] [address] [place] Potassium [Moles/Vol] 4.0 mmol/L Normal 3.5-5.0 [facility] Comment on above: Order Comment: Speci men Type: VENOUS BLOOD SPECIMENOrdering Facility: [facility] Address: [address] [place] [address] Performed By: #### 2 4344-4 ####[facility] LABCLIA [id number] [place] [address] [place] Sodium [Moles/Vol] 129 mmol/L Low 136-144 [facility] Comment on above: Order Comment: Speci men Type: VENOUS BLOOD SPECIMENOrdering Facility: [facility] Address: [address] [place] [address] Performed By: #### 2 4344-4 ####[facility] LABCLIA [id number] [place] [address] [place] BASE DEFICIT, VENOUS -5 mmol/L Low -2-0 [facility] Comment on above: Order Comment: Speci men Type: VENOUS BLOOD SPECIMENOrdering Facility: [facility] Address: [address] [place], [place] [address] Performed By: #### 2 4344-4 ####[facility] LABCLIA [id number] [place] [address] [place] Body temperature 97.88 [degF] Normal [facility] Comment on above: Order Comment: Speci men Type: VENOUS BLOOD SPECIMENOrdering Facility: [facility] Address: [address] [place] [address] Performed By: #### 2 4344-4 ####[facility] LABIA [id number] [place] [address] [place] Calcium.ionized (Bld) [Mass/Vol] 1.08 mmol/L Normal 1.08-1.30 [facility] Comment on above: Order Comment: Speci men Type: VENOUS BLOOD SPECIMENOrdering Facility: [facility] Address: [address] [place] [address] Performed By: #### 2 4344-4 ####[facility] [id number] [place] [address] [place] Calcium.ionized adjusted to pH 7.4 (BldA) [Moles/Vol] 1.05 mmol/L Low 1.08-1.30 [facility] Comment on above: Order Comment: Speci men Type: VENOUS BLOOD SPECIMENOrdering Facility: [facility] Address: [address] [place] [address] Performed By: #### 2 4344-4 ####[facility] [id number] [place] [address] [place] Carboxyhemoglobin (BldV) [Mass fraction] 0.7 % Normal 0.0-2.0 [facility] Comment on above: Order Comment: Speci men Type: VENOUS BLOOD SPECIMENOrdering Facility: [facility] Address: [address] [place], [place] [address] Result Comment: Carb oxyhemoglobin Reference Range for Smokers: 2.0-8.0% Performed By: #### 2 4344-4 ####[facility] [id number] [place] [address] [place] CO2 (BldV) [Partial pressure] 35 mm[Hg] Low 42-55 [facility] Comment on above: Order Comment: Speci men Type: VENOUS BLOOD SPECIMENOrdering Facility: [facility] Address: [address] Performed By: #### 2 4344-4 ####[facility] LABCLIA [id number] [place] [address] [place] CO2 [Moles/Vol] 20 mmol/L Low 25-29 [facility] Comment on above: Order Comment: Speci men Type: VENOUS BLOOD SPECIMENOrdering Facility: [facility] Address: [address] Performed By: #### 2 4344-4 ####[facility] LABCLIA [id number] [place] [address] [place] CO2 adjusted to patient's actual temperature (BldV) [Partial pressure] 34 mmHg Low 42-55 [facility] Comment on above: Order Comment: Speci men Type: VENOUS BLOOD SPECIMENOrdering Facility: [facility] Address: [address] Performed By: #### 2 4344-4 ####[facility] LABCLIA [id number] [place] [address] [place] Glucose [Mass/Vol] 105 mg/dL Normal 60-105 [facility] Comment on above: Order Comment: Speci men Type: VENOUS BLOOD SPECIMENOrdering Facility: [facility] Address: [address] Performed By: #### 2 4344-4 ####[facility] LABCLIA [id number] [place] [address] [place] HCO3 (Bld) [Moles/Vol] 19 mmol/L Low 24-28 [facility] Comment on above: Order Comment: Speci men Type: VENOUS BLOOD SPECIMENOrdering Facility: [facility] Address: [address] Performed By: #### 2 4344-4 ####[facility] LABCLIA [id number] [place] [address] [place] Hematocrit (Bld) [Volume fraction] 41.5 % Normal 39.0-51.0 [facility] Comment on above: Order Comment: Speci men Type: VENOUS BLOOD SPECIMENOrdering Facility: [facility] Address: [address] [place] [address] Performed By: #### 2 4344-4 ####[facility] LABCLIA [id number] [place] [address] [place] Hemoglobin (Bld) [Mass/Vol] 13.5 g/dL Normal 13.0-17.0 [facility] Comment on above: Order Comment: Speci men Type: VENOUS BLOOD SPECIMENOrdering Facility: [facility] Address: [address] [place] [address] Performed By: #### 2 4344-4 ####[facility] LABCLIA [id number] [place] [address] [place] Lactate [Moles/Vol] 2.7 mmol/L High 0.5-2.2 [facility] Comment on above: Order Comment: Speci men Type: VENOUS BLOOD SPECIMENOrdering Facility: [facility] Address: [address] [place] [address] Performed By: #### 2 4344-4 ####[facility] LABCLIA [id number] [place] [address] [place] Methemoglobin (Bld) [Mass fraction] 1.0 % Normal 0.0-1.5 [facility] Comment on above: Order Comment: Speci men Type: VENOUS BLOOD SPECIMENOrdering Facility: [facility] Address: [address] [place], [place] [address] Performed By: #### 2 4344-4 ####[facility] LABCLIA [id number] [place] [address] [place] O2 THERAPY RA=Room Air Normal [facility] Comment on above: Order Comment: Speci men Type: VENOUS BLOOD SPECIMENOrdering Facility: [facility] Address: [address] Performed By: #### 2 4344-4 ####[facility] LABCLIA [id number] [place] [address] [place] Oxygen (BldV) [Partial pressure] 32 mm[Hg] Low 35-45 [facility] Comment on above: Order Comment: Speci men Type: VENOUS BLOOD SPECIMENOrdering Facility: [facility] Address: [address] Performed By: #### 2 4344-4 ####[facility] LABCLIA [id number] [place] [address] [place] Oxygen adjusted to patient's actual temperature (BldV) [Partial pressure] 31 mmHg Low 35-45 [facility] Comment on above: Order Comment: Speci men Type: VENOUS BLOOD SPECIMENOrdering Facility: [facility] Address: [address] [place] [address] Performed By: #### 2 4344-4 ####[facility] LABCLIA [id number] [place] [address] [place] Oxygen saturation in Venous blood 50 % Low 60-85 [facility] Comment on above: Order Comment: Speci men Type: VENOUS BLOOD SPECIMENOrdering Facility: [facility] Address: [address] [place] [address] Performed By: #### 2 4344-4 ####[facility] LABCLIA [id number] [place] [id number] [place] Oxyhemoglobin (BldV) [Mass fraction] 49 % Low 60-85 [facility] Comment on above: Order Comment: Speci men Type: VENOUS BLOOD SPECIMENOrdering Facility: [facility] Address: [address] [place] [address] Performed By: #### 2 4344-4 ####[facility] LABCLIA [id number] [place] [address] [place] pH (BldV) 7.35 [pH] Normal 7.32-7.42 [facility] Comment on above: Order Comment: Speci men Type: VENOUS BLOOD SPECIMENOrdering Facility: [facility] Address: [address] [place] [address] Performed By: #### 2 4344-4 ####[facility] LABIA [id number] [address] [place] pH adjusted to patient's actual temperature (BldV) 7.36 Normal 7.32-7.42 [facility] Comment on above: Order Comment: Speci men Type: VENOUS BLOOD SPECIMENOrdering Facility: [facility] Address: [address] [place] [address] Performed By: #### 2 4344-4 ####[facility] LABIA [id number] [place] [address] [place] Potassium [Moles/Vol] 4.7 mmol/L Normal 3.5-5.0 [facility] Comment on above: Order Comment: Speci men Type: VENOUS BLOOD SPECIMENOrdering Facility: [facility] Address: [address] [place], [place] [address] Performed By: #### 2 4344-4 ####[facility] LABIA [id number] [place] [address] [place] Sodium [Moles/Vol] 129 mmol/L Low 136-144 [facility] Comment on above: Order Comment: Speci men Type: VENOUS BLOOD SPECIMENOrdering Facility: [facility] Address: [address] [place], [place] [address] Performed By: #### 2 4344-4 ####[facility] LABIA [id number] [place] [address] [place] HIGH SENSITIVITY TROPONIN To n 01-24-2023 HIGH SENSITIVITY ALANNA 14 ng/L High <12 [facility] Comment on above: Order Comment: Alden padilla Type: BLOOD SPECIMENOrdering Facility: [facility] Address: [address] [place] [address] Result Comment: When assessing risk for acute [...] day MACE. Performed By: #### 1 988-5, 80091-9, 2777-1, HSTNT, 90126-2 ####[facility] LABCLIA [id number] [place] [address] [place] HISTORY PHYSICALon HISTORY PHYSICAL Normal [facility] HbA1c (Bld)on 01-24-2023 Average glucose Estimated from glycated hemoglobin (Bld) [Mass/Vol] 140 mg/dL Normal [facility] Comment on above: Order Comment: Alden padilla Type: BLOOD SPECIMENOrdering Facility: [facility] Address: [address] [place] [address] Result Comment: eAG: (Estimated average glucose) is a calculated value from HgbA1c and is clearance representative of the average blood glucose level in the last 2-3 month period. Performed By: #### 4 537-7, 04738-5 ####[facility] LABCLIA [id number] [place] [address] [place] HbA1c (Bld) [Mass fraction] 6.5 % High 4.3-5.6 [facility] Comment on above: Order Comment: Alden padilla Type: BLOOD SPECIMENOrdering Facility: [facility] Address: [address] [place] [address] Result Comment: [place] Diabetes Association guidelines indicate that patients with HgbA1c in the range 5.7-6.4% are at increased risk for development of diabetes, and intervention by lifestyle modification may be beneficial. HgbA1c greater or equal to 6.5% is considered diagnostic of diabetes. Performed By: #### 4 537-7, 97261-9 ####[facility] LABCLIA [id number] [place] [address] [place] LACTATE/LACTIC ACIDon 2022 Lactate [Moles/Vol] 1.8 mmol/L Normal 0.4-2.0 [facility] Comment on above: Performed By: #### B CID2 #### [facility] [address] [place] [address] [address] Good Castellano Magnesium SerPl-ncon 01-24 Magnesium [Mass/Vol] 2.4 mg/dL High 1.7-2.3 [facility] Comment on above: Order Comment: Speci men Type: BLOOD SPECIMENOrdering Facility: [facility] Address: [address] [place] [address] Performed By: #### 1 9123-9, 2777-1, 78096-4 ####[facility] LABCLIA [id number] [place] [address] [place] Magnesium [Mass/Vol] 2.5 mg/dL High 1.7-2.3 [facility] Comment on above: Order Comment: Speci men Type: BLOOD SPECIMENOrdering Facility: [facility] Address: [address] [place] [address] Performed By: #### 1 988-5, 65375-3, 2777-1, HSTNT, 15504-9 ####[facility] LABIA [id number] [place] [address] [place] NT-proBNP SerPl-ncon 01-24 Natriuretic peptide.B prohormone N-Terminal [Mass/Vol] 575 pg/mL High <125 [facility] Comment on above: Order Comment: Speci men Type: BLOOD SPECIMENOrdering Facility: [facility] Address: [address] Performed By: #### 1 988-5, 45141-3, 2777-1, HSTNT, 19676-8 ####[facility] [id number] [address] OF [facility] OPERATIVE NOon 01-24-2023 OPERATIVE NO Normal [facility] PT panel Coag (PPP)on 2022 INR Coag (PPP) [Relative time] 1.1 {INR} Normal 0.9-1.3 [facility] Comment on above: Order Comment: Speci men Type: BLOOD SPECIMENOrdering Facility: [facility] Address: [address] [place] [place] [address] Result Comment: Lisnadra min K Antagonist (VKA) Therapeutic Range: INR 2 to 3 (Target INR of 2.5)Note: For patients treated with VKA drugs, such as warfarin, the [place] [employer] 2012 Guideline recommends [...] al. Chest 2012, 141:7S-47SNishimura RA, et al. [facility] 2017, 70: 252-289 Performed By: #### 3 4528-0, 3255-7 ####[facility] LABIA [id number] [address] [place] PT Coag (PPP) [Time] 11.0 s Normal 9.7-13.0 [facility] Comment on above: Order Comment: Speci men Type: BLOOD SPECIMENOrdering Facility: [facility] Address: [address] Performed By: #### 3 4528-0, 3255-7 ####[facility] LABIA [id number] [address] STATES OF [facility] Phosphate SerPl-mCncon 01-24 Phosphate [Mass/Vol] 8.1 mg/dL High 2.7-4.8 [facility] Comment on above: Order Comment: Speci men Type: BLOOD SPECIMENOrdering Facility: [facility] Address: [address] [place] [address] Performed By: #### 1 9123-9, 2777-1, 46257-9 ####[facility] LABIA [id number] [address] STATES OF [facility] Phosphate [Mass/Vol] 6.3 mg/dL High 2.7-4.8 [facility] Comment on above: Order Comment: Speci men Type: BLOOD SPECIMENOrdering Facility: [facility] Address: [address] [place] [address] Performed By: #### 1 988-5, 20426-4, 2777-1, HSTNT, 55529-1 ####[facility] [id number] [address] [place] Procalcitonin SerPl-ncon 0 01-24-2023 Procalcitonin [Mass/Vol] 9.07 ng/mL High <0.09 [facility] Comment on above: Order Comment: Speci men Type: BLOOD SPECIMENOrdering Facility: [facility] Address: [address] [place] [address] Result Comment: For a guided interpretation of test results, please visit the Change in Procalcitonin Calculator, [email or web address]. Performed By: #### 2 4323-8, 34787-7 ####[facility] LABIA [id number] [place] [address] [place] SARS-CoV-2 RNA Resp Ql DREA+p robeon 01-24-2023 SARS-CoV-2 (COVID-19) RNA DREA+probe Ql (Resp) COVID 19 RESULT: Not detected The method used is RT-PCR or an equivalent NAAT method. Reference Range(the expected result in uninfected individuals): Not detected Normal [facility] Comment on above: Performed By: #### 9 4500-6 ####[facility] LABCLIA [id number] [address] [employer] PCRon 3 S. aureus and MRSA panel DREA+probe (Nose) Abnormal Negative [facility] Comment on above: Order Comment: Speci men Type: SWAB OF INTERNAL NOSEOrdering Facility: [facility] Address: [address] [place] [address] Result Comment: Posi tive for Staphylococcus aureus by PCR.Negative for MRSA by PCR Performed By: #### S APCR ####[facility] LABCLIA [id number] [place] [address] [place] TYPE + SCREENon 01-24-2023 ABO A Normal [facility] Comment on above: Order Comment: Speci men Type: BLOOD SPECIMENOrdering Facility: [facility] Address: [address] [place] [address] Performed By: #### T SCR ####[facility] BLOOD BANKIA [id number] [place] [address] [place] HISTORICAL AB SCR STATUS Negative Normal [facility] Comment on above: Order Comment: Speci men Type: BLOOD SPECIMENOrdering Facility: [facility] Address: [address] [place] [address] Performed By: #### T SCR ####[facility] BLOOD BANKCLIA [id number] [place] [address] [place] Rh Nom (Bld) Positive Normal [facility] Comment on above: Order Comment: Speci men Type: BLOOD SPECIMENOrdering Facility: [facility] Address: [address] [place] [address] Performed By: #### T SCR ####[facility] BLOOD BANKCLIA [id number] [place] [id number] [facility] [place] TYPE AND SCREEN EXPIRATION 01/27/2023 23:59 Normal [facility] Comment on above: Order Comment: Speci men Type: BLOOD SPECIMENOrdering Facility: [facility] Address: [address] [place], [place] [address] Performed By: #### T SCR ####[facility] BLOOD BANKCLIA [id number] [place] [id number] [place] URINE MICROSCOPIC ONLYon BACTERIA TRACE Abnormal NONE SEEN [facility] Comment on above: Performed By: #### U MICRO, ERUR #### [facility] [address] [place] [address] Dr. Good Castellano Bacteria identified Cx Nom (U) NOT INDICATED Normal [facility] Comment on above: Performed By: #### U MICRO, ERUR #### [facility] [address] [place] [address] Dr. Good Castellano CAST SEEN Abnormal NONE SEEN [facility] Comment on above: Performed By: #### U MICRO, ERUR #### [facility] [address] [place] [address] Dr. Good Castellano Crystals LM Nom (Urine sed) NONE SEEN Normal NONE SEEN [facility] Comment on above: Performed By: #### U MICRO, ERUR #### [facility] [address] [place] [address] Dr. Good Castellano Epithelial cells LM Ql (Urine sed) RARE Normal NONE SEEN /RARE [facility] Comment on above: Performed By: #### U MICRO, ERUR #### [facility] [address] [place] [address] Dr. Good Castellano FINE GRANULAR CAST FEW Normal The [facility] Comment on above: Performed By: #### U MICRO, ERUR #### [facility] [address] [place] [address] Dr. Good Castellano MUCOUS NONE SEEN Normal NONE SEEN [facility] Comment on above: Performed By: #### U MICRO, ERUR #### [facility] [address] [place] [address] [address] Good Castellano RBC NONE SEEN Abnormal 0-2 [facility] Comment on above: Performed By: #### U MICRO, ERUR #### [facility] [address] [place], [place] [address] Dr. Good Castellano WBC 0-2 Abnormal NONE SEEN [facility] Comment on above: Performed By: #### U MICRO, ERUR #### [facility] [address] [place], [place] [address] Dr. Good Castellano Urinalysis complete panel (U )on 01-24-2023 Bilirubin Ql (U) 1+ Abnormal Negative [facility] Comment on above: Order Comment: Speci men Type: URINE SPECIMENOrdering Facility: [facility] Address: [address] [place] [address] Result Comment: Sugg est correlation with clinical findings and serum bilirubin if clinically indicated. Performed By: #### 2 4356-8 ####[facility] LABCLIA [id number] [place] [address] [place] Clarity (Unsp spec) Cloudy Abnormal Clear [facility] Comment on above: Order Comment: Speci men Type: URINE SPECIMENOrdering Facility: [facility] Address: [address] [place] [address] Performed By: #### 2 4356-8 ####[facility] LABCLIA [id number] [place] [address] [place] Color (U) Yellow Normal Yellow [facility] Comment on above: Order Comment: Speci men Type: URINE SPECIMENOrdering Facility: [facility] Address: [address] [place] [address] Performed By: #### 2 4356-8 ####[facility] LABCLIA [id number] [place] [address] [place] Epithelial cells LM.HPF (Urine sed) [#/Area] Few Normal [facility] Comment on above: Order Comment: Speci men Type: URINE SPECIMENOrdering Facility: [facility] Address: [address] Performed By: #### 2 4356-8 ####[facility] LABCLIA [id number] [place] [address] [place] Glucose Test strip (U) [Mass/Vol] Negative Normal Trace, Negative [facility] Comment on above: Order Comment: Speci men Type: URINE SPECIMENOrdering Facility: [facility] Address: [address] Performed By: #### 2 4356-8 ####[facility] LABCLIA [id number] [place] [address] [place] Hemoglobin Ql (U) 2+ Abnormal Negative, Trace [facility] Comment on above: Order Comment: Speci men Type: URINE SPECIMENOrdering Facility: [facility] Address: [address] Performed By: #### 2 4356-8 ####[facility] LABCLIA [id number] [place] [address] [place] Ketones Ql (U) Negative Normal Trace, Negative [facility] Comment on above: Order Comment: Speci men Type: URINE SPECIMENOrdering Facility: [facility] Address: [address] Performed By: #### 2 4356-8 ####[facility] LABCLIA [id number] [place] [address] [place] Leukocyte esterase Test strip Ql (U) Negative Normal Negative, 25 Kiah/uL [facility] Comment on above: Order Comment: Speci men Type: URINE SPECIMENOrdering Facility: [facility] Address: [address] Performed By: #### 2 4356-8 ####[facility] LABIA [id number] [place] [address] [place] Nitrite Ql (U) Negative Normal Negative [facility] Comment on above: Order Comment: Speci men Type: URINE SPECIMENOrdering Facility: [facility] Address: [address] [place] [address] Performed By: #### 2 4356-8 ####[facility] LABIA [id number] [place] [address] [place] pH (U) 6.0 [pH] Normal 5.0-8.0 [facility] Comment on above: Order Comment: Speci men Type: URINE SPECIMENOrdering Facility: [facility] Address: [address] [place] [address] Performed By: #### 2 4356-8 ####[facility] [id number] [address] STATES [facility] Protein (U) [Mass/Vol] 1+ Abnormal Trace, Negative [facility] Comment on above: Order Comment: Speci men Type: URINE SPECIMENOrdering Facility: [facility] Address: [address] [place] [address] Performed By: #### 2 4356-8 ####[facility] [id number] [place] [address] [place] RBC LM.HPF (Urine sed) [#/Area] 3-5 /HPF Abnormal 0-3 /HPF [facility] Comment on above: Order Comment: Speci men Type: URINE SPECIMENOrdering Facility: [facility] Address: [address] [place] [address] Performed By: #### 2 4356-8 ####[facility] LABIA [id number] [place] [address] [place] Specific gravity (U) [Rel density] 1.045 High 1.005-1.030 [facility] Comment on above: Order Comment: Speci men Type: URINE SPECIMENOrdering Facility: [facility] Address: [address] [place] [address] Performed By: #### 2 4356-8 ####[facility] LABCLIA [id number] [place] [address] [place] Urobilinogen Ql (U) 2+ Abnormal Negative [facility] Comment on above: Order Comment: Speci men Type: URINE SPECIMENOrdering Facility: [facility] Address: [address] [place] [address] Performed By: #### 2 4356-8 ####[facility] LABIA [id number] [place] [address] [place] WBC LM.HPF (Urine sed) [#/Area] 0-5 /HPF Normal 0-5 /HPF [facility] Comment on above: Order Comment: Speci men Type: URINE SPECIMENOrdering Facility: [facility] Address: [address] [place] [address] Performed By: #### 2 4356-8 ####[facility] LABIA [id number] [place] [address] [place] XR CHEST 1V FRONTAL PORTon 0 01-24-2023 XR CHEST 1V FRONTAL PORT Normal [facility] XR FEMUR 2V AP/LAT LTon 01-12 XR FEMUR 2V AP/LAT LT Normal [facility] XR HIP 3V PELV+ AP/LAT LTon 01-24-2023 XR HIP 3V PELV+ AP/LAT LT Normal [facility] BLOOD CULTURE ID PANELon A. baumannii Not detected Normal NOT DETECTED [facility] Comment on above: Performed By: #### B CID2 #### [facility] [address] [place] [address] [address] [address] Good Castellano Bacteriodes fragilis Not detected Normal NOT DETECTED [facility] Comment on above: Performed By: #### B CID2 #### [facility] [address] [place] [address] Dr. Good Castellano BCID CONTROLS PASSED Normal [facility] Comment on above: Performed By: #### B CID2 #### [facility] [address] [place] [address] Dr. Good Castellano BCIDBTHD BLOOD CULTURE BOTTLE INFORMATION [facility] Comment on above: Performed By: #### B CID2 #### [facility] [address] [place] [address] Dr. Good Castellano BCIDHD1 ANTIMICROBIAL RESISTANCE GENES [facility] Comment on above: Performed By: #### B CID2 #### [facility] [address] [place] [address] Dr. Good Castellano BCIDHD2 SEE BELOW [facility] Comment on above: Result Comment: Note : Antimicrobial resitance can occur via multiple mechanisms. A Not Detected result for the [employer] antomicrobial resistance gene assays does not indicate antimicrobial susceptibility. Subculturing is required for species identification and susceptibility testing of isolates. Performed By: #### B CID2 #### [facility] [address] [place] [address] Dr. Good Castellano BCIDHD3 Positive [facility] Comment on above: Performed By: #### B CID2 #### [facility] [address] [place] [address] Dr. Good Castellano BCIDHD4 Negative [facility] Comment on above: Performed By: #### B CID2 #### [facility] [address] [place] [address] Dr. Good Castellano BCIDHD5 YEAST [facility] Comment on above: Performed By: #### B CID2 #### [facility] [address] [place] [address] Dr. Good Castellano Bottle Set: Set 1 [facility] Comment on above: Performed By: #### B CID2 #### [facility] [address] [place] [address] Dr. Good Castellano Bottle: Aerobic [facility] Comment on above: Performed By: #### B CID2 #### [facility] [address] [place] [address] Dr. Good Castellano C. neoformans/gattii Not detected Normal NOT DETECTED [facility] Comment on above: Performed By: #### B CID2 #### [facility] [address] [place] [address] Dr. Good Castellano Olga albicans Not detected Normal NOT DETECTED [facility] Comment on above: Performed By: #### B CID2 #### [facility] [address] [place] [address] Dr. Good Castellano Olga auris Not detected Normal NOT DETECTED [facility] Comment on above: Performed By: #### B CID2 #### [facility] [address] [place] [address] Dr. Good Castellano Olga glabrata Not detected Normal NOT DETECTED [facility] Comment on above: Performed By: #### B CID2 #### [facility] [address] [place] [address] Dr. Good Castellano Olga Krusei Not detected Normal NOT DETECTED The [facility] Comment on above: Performed By: #### B CID2 #### [facility] [address] [place] [address] Dr. Good Castellano Olga Parapsilosis Not detected Normal NOT DETECTED [facility] Comment on above: Performed By: #### B CID2 #### [facility] [address] [place] [address] Dr. Good Castellano Olga Tropicalis Not detected Normal NOT DETECTED [facility] Comment on above: Performed By: #### B CID2 #### [facility] [address] [place] [address] Dr. Good Castellano CTX-M Resistant Gene Not Applicable Normal NOT DETECTE D [facility] Comment on above: Performed By: #### B CID2 #### [facility] [address] [place] [address] Dr. Good Castellano E. Cloacae complex Not detected Normal NOT DETECTED [facility] Comment on above: Performed By: #### B CID2 #### [facility] [address] [place] [address] Dr. Good Castellano E. faecalis Not detected Normal NOT DETECTED [facility] Comment on above: Performed By: #### B CID2 #### [facility] [address] [place] [address] Dr. Good Castellano E. faecium Not detected Normal NOT DETECTED [facility] Comment on above: Performed By: #### B CID2 #### [facility] [address] [place] [address] Dr. Good Castellano Enterobacteriaceae Not detected Normal NOT DETECTED [facility] Comment on above: Performed By: #### B CID2 #### [facility] [address] [place] [address] Dr. Good Castellano Escherichia coli Not detected Normal NOT DETECTED [facility] Comment on above: Performed By: #### B CID2 #### [facility] [address] [place] [address] Dr. Good Castellano H. influenzae Not detected Normal NOT DETECTED [facility] Comment on above: Performed By: #### B CID2 #### [facility] [address] [place] [address] Dr. Good Castellano IMP Resistant Gene Not Applicable Normal NOT DETECTED [facility] Comment on above: Performed By: #### B CID2 #### [facility] [address] [place] [address] Dr. Good Castellano K. oxytoca Not detected Normal NOT DETECTED [facility] Comment on above: Performed By: #### B CID2 #### [facility] [address] [place] [address] Dr. Good Castellano K. pneumoniae Not detected Normal NOT DETECTED [facility] Comment on above: Performed By: #### B CID2 #### [facility] [address] [place] [address] Dr. Good Castellano Klebsiella aerogenes Not detected Normal NOT DETECTED [facility] Comment on above: Performed By: #### B CID2 #### [facility] [address] [place] [address] Dr. Good Castellano KPC Resistant Gene Not Applicable Normal NOT DETECTED [facility] Comment on above: Performed By: #### B CID2 #### [facility] [address] [place] [address] Dr. Good Castellano List. monocytogenes Not detected Normal NOT DETECTED [facility] Comment on above: Performed By: #### B CID2 #### [facility] [address] [place] [address] Dr. Good Castellano Mcr-1 Resistant Gene Not Applicable Normal NOT DETECTE D [facility] Comment on above: Performed By: #### B CID2 #### [facility] [address] [place] [address] Dr. Good Castellano mecA/C Not Applicable Normal NOT DETECTED [facility] Comment on above: Performed By: #### B CID2 #### [facility] [address] [place] [address] Dr. Good Castellano mecA/C MREJ Not Applicable Normal NOT DETECTED [facility] Comment on above: Performed By: #### B CID2 #### [facility] [address] [place] [address] Dr. Good Castellano N. meningitidis Not detected Normal NOT DETECTED [facility] Comment on above: Performed By: #### B CID2 #### [facility] [address] [place] [address] Dr. Good Castellano NDM Resistant Gene Not Applicable Normal NOT DETECTED [facility] Comment on above: Performed By: #### B CID2 #### [facility] [address] [place] [address] Dr. Good Castellano Oxa-48-like Not Applicable Normal NOT DETECTED [facility] Comment on above: Performed By: #### B CID2 #### [facility] [address] [place] [address] Dr. Good Castellano Proteus Not detected Normal NOT DETECTED [facility] Comment on above: Performed By: #### B CID2 #### [facility] [address] [place] [address] Dr. Good Castellano Pseud. aeruginosa Not detected Normal NOT DETECTED [facility] Comment on above: Performed By: #### B CID2 #### [facility] [address] [place] [address] Dr. Good Castellano S. maltophilia Not detected Normal NOT DETECTED The [facility] Comment on above: Performed By: #### B CID2 #### [facility] [address] [place] [address] Dr. Good Castellano Salmonella Not detected Normal NOT DETECTED [facility] Comment on above: Performed By: #### B CID2 #### [facility] [address] [place] [address] Dr. Good Castellano Seratia marcescens Not detected Normal NOT DETECTED [facility] Comment on above: Performed By: #### B CID2 #### [facility] [address] [place] [address] Dr. Good Castellano Site: Rt Ac Normal [facility] Comment on above: Performed By: #### B CID2 #### [facility] [address] [place] [address] Dr. Good Castellano Staph. aureus Not detected Normal NOT DETECTED [facility] Comment on above: Performed By: #### B CID2 #### [facility] [address] [place] [address] Dr. Good Castellano Staph. epidermidis Not detected Normal NOT DETECTED [facility] Comment on above: Performed By: #### B CID2 #### [facility] [address] [place] [address] Dr. Good Castellano Staph. lugdunensis Not detected Normal NOT DETECTED [facility] Comment on above: Performed By: #### B CID2 #### [facility] [address] [place] [address] Dr. Good Castellano Staphylococcus Not detected Normal NOT DETECTED The [facility] Comment on above: Performed By: #### B CID2 #### [facility] [address] [place] [address] Dr. Good Castellano Strep. agalactiae Not detected Normal NOT DETECTED [facility] Comment on above: Performed By: #### B CID2 #### [facility] [address] [place] [address] Dr. Good Castellano Strep. pneumoniae Not detected Normal NOT DETECTED [facility] Comment on above: Performed By: #### B CID2 #### [facility] [address] [place] [address] Dr. Good Castellano Strep. pyogenes Detected Critically abnormal NOT DETECTED [facility] Comment on above: Performed By: #### B CID2 #### [facility] [address] [place] [address] Dr. Good Castellano Streptococcus Detected Critically abnormal NOT DETECTED [facility] Comment on above: Performed By: #### B CID2 #### [facility] [address] [place] [address] Dr. Good Castellano Salvatore/B Resist. Gene Not Applicable Normal NOT DETECTED [facility] Comment on above: Performed By: #### B CID2 #### [facility] [address] [place] [address] Dr. Good Castellano VIM Resistant Gene Not Applicable Normal NOT DETECTED [facility] Comment on above: Performed By: #### B CID2 #### [facility] [address] [place] [address] Dr. Good Castellano CBC W MANUAL DIFFon 01-24-20 23 ATYPICAL LYMPH # Normal [facility] Comment on above: Performed By: #### C CHRISTIANEMAN #### [facility] [address] [place] [address] Dr. Good Castellano ATYPICAL LYMPH % Normal [facility] Comment on above: Performed By: #### C CHRISTIANEMAN #### [facility] [address] [place] [address] Dr. Good Castellano BAND # 1.7 103/ul Critically high 0.0-0.3 [facility] Comment on above: Performed By: #### C BCMAN #### [facility] [address] [place] [address] Dr. Good Castellano BAND % 5 % Normal 0-5 [facility] Comment on above: Performed By: #### C BCMAN #### [facility] [address] [place] [address] Dr. Good Castellano BASOM # 0.00 103/ul Normal 0.00-0.10 [facility] Comment on above: Performed By: #### C CHRISTIANEMAN #### [facility] [address] [address] [address] Good Castellano BASOM % 0.0 % Critically low 0.2-2.0 [facility] Comment on above: Performed By: #### C BCMAN #### [facility] [address] [address] [address] Good Castellano BLAST # Normal [facility] Comment on above: Performed By: #### C BCMAN #### [facility] [address] [address] [address] Good Castellano BLAST % Normal [facility] Comment on above: Performed By: #### C BCJAVIER #### [facility] [address] [place] [address] Dr. Good Castellano CORRECTED WBC Normal 4.0-11.0 [facility] Comment on above: Performed By: #### C BCJAVIER #### [facility] [address] [place] [address] Dr. Good Castellano EOS # 0.00 103/ul Normal 0.00-0.[address] [facility] Comment on above: Performed By: #### C BCJAVIER #### [facility] [address] [place] [address] Dr. Good Castellano EOS% 0.0 % Critically low 0.9-7.0 [facility] Comment on above: Performed By: #### C BCJAVIER #### [facility] [address] [address] [address] Good Castellano HCT 38.1 % Critically low 42.0-54.0 [facility] Comment on above: Performed By: #### C BCJAVIER #### [facility] [address] [place] [address] Dr. Good Castellano HGB 13.2 g/dl Critically low 14.0-18.0 [facility] Comment on above: Performed By: #### C BCMAN #### [facility] [address] [place] [address] Dr. Good Castellano LYMPHM # 0.33 103/ul Critically low 1.20-3.80 [facility] Comment on above: Performed By: #### C FREDRICK #### [facility] [address] [address] [address] Good Castellano LYMPHM% 1.0 % Critically low 20.5-60.0 [facility] Comment on above: Performed By: #### C FREDRICK #### [facility] [address] [place] [address] Dr. Good Castellano MCH 25.8 pg Critically low 25.9-34.0 [facility] Comment on above: Performed By: #### C FREDRICK #### [facility] [address] [place] [address] Dr. Good Castellano MCHC 34.6 g/dl Normal 29.9-35.[address] [facility] Comment on above: Performed By: #### C FREDRICK #### [facility] [address] [place] [address] Dr. Good Castellano MCV 74.6 fL Critically low 80.0-94.0 [facility] Comment on above: Performed By: #### C FREDRICK #### [facility] [address] [place] [address] Dr. Good Castellano METAMYELOCYTE # Normal [facility] Comment on above: Performed By: #### C FREDRICK #### [facility] [address] [place] [address] Dr. Good Castellano METAMYELOCYTE % Normal [facility] Comment on above: Performed By: #### C FREDRICK #### [facility] [address] [address] [address] Good Castellano MONOM# 0.00 103/ul Critically low 0.30-0.80 [facility] Comment on above: Performed By: #### C FREDRICK #### [facility] [address] [place] [address] Dr. Good Castellano MONOM% 0.0 % Critically low 1.7-12.0 [facility] Comment on above: Performed By: #### C FREDRICK #### [facility] [address] [place] [address] Dr. Good Castellano MPV 12.8 fL Normal 9.5-13.[address] [facility] Comment on above: Performed By: #### C FREDRICK #### [facility] [address] [place] [address] Dr. Good Castellano MYELOCYTE # Normal [facility] Comment on above: Performed By: #### C FREDRICK #### [facility] [address] [place], [place] [id number] Dr. Good Castellaon MYELOCYTE % Normal [facility] Comment on above: Performed By: #### C FREDRICK #### [facility] [address] [place] [address] Dr. Good Castellano NRBC Normal [facility] Comment on above: Performed By: #### C FREDRICK #### [facility] [address] [place] [address] Dr. Good Castellano PLT 161 103/ul Normal 150-[address] [facility] Comment on above: Performed By: #### C FREDRICK #### [facility] [address] [place] [address] Dr. Good Castellano RBC 5.11 106/ul Normal 4.70-6.[address] [facility] Comment on above: Performed By: #### C FREDRICK #### [facility] [address] [place] [address] Dr. Good Castellano RDW 14.6 % Normal 11.0-15.[address] [facility] Comment on above: Performed By: #### C FREDRICK #### [facility] [address] [place] [address] Dr. Good Castellano SEG # 31.40 103/ul Critically high 1.40-6.50 [facility] Comment on above: Performed By: #### C FREDRICK #### [facility] [address] [place], [place] [address] Dr. Good Castellano SEG % 94.0 % Critically high 43.0-75.0 [facility] Comment on above: Performed By: #### C FREDRICK #### [facility] [address] [place] [address] Dr. Good Castellano TOXIC GRANULATION SLIGHT Normal [facility] Comment on above: Performed By: #### C BCMAN #### [facility] [address] [place], [place] [address] Dr. Godo Castellano WBC 33.4 103/ul Critically high 4.0-11.0 [facility] Comment on above: Performed By: #### C BCMAN #### [facility] [address] [place], [place] [address] Dr. Good Castellano CPKon 01-23-2023 CK [Catalytic activity/Vol] 69 U/L Normal 39-[address] [facility] Comment on above: Performed By: #### H STROPN, CRP, CK, CMP #### [facility] [address] [place], [place] [address] Dr. Good Castellano CRPon 01-23-2023 CRP [Mass/Vol] mg/L Normal <=1.0 [facility] Comment on above: Performed By: #### B CID2 #### [facility] [address] [place], [place] [id number] Dr. Good Castellano CTA ABD ASHISH WWO [...] MICHELLE STROUD Date: 2023-01-23 21:57 Normal [facility] CULTURE BLOODon 01-23-2023 Microscopic examination of blood, culture Culture Observations: Aerobic bottle positive only. BCID: Streptococcus Pyogenes (Group A) Culture Observations: Please refer to accession #[id number] for susceptibilities. Culture Observations: NO GROWTH IN ANAEROBIC BOTTLE AT 5 DAYS. Isolate 1 Streptococcus pyogenes Growth of Normal [facility] Comment on above: Performed By: #### B LDCX2 #### [facility] [address] [place] [address] Dr. Good Castellano Covid-19 PCR (CVDTB)on 01-12 SARS-CoV-2 (COVID-19) RNA DREA+probe Ql (Unsp spec) Not detected Normal NOT DETECTED [facility] Comment on above: Result Comment: When diagnostic [...] for this test is supported by the [place] of [employer] and Human Service's declaration that [...] used). Performed By: #### B CID2 #### [facility] [address] [place] [address] Dr. Good Castellano LACTATE/LACTIC ACIDon 2022 Lactate [Moles/Vol] 2.6 mmol/L Critically high 0.4-2.[address] [facility] Comment on above: Performed By: #### L ACT #### [facility] [address] [place] [address] Dr. Good Castellano PH VENOUS BLOODon 01-23-2023 PCO2 VENOUS 30.0 mmHg Critically low 40.0-52.0 [facility] Comment on above: Performed By: #### B CID2 #### [facility] [address] [place] [address] Dr. Good Castellano pH VENOUS 7.379 Normal 7.330-7.[address] [facility] Comment on above: Performed By: #### B CID2 #### [facility] [address] [place] [address] Dr. Good Castellano PROF 14(COMP METB)on 023 Albumin [Mass/Vol] 1.4 g/dL Critically low 3.4-5.0 Th [facility] Comment on above: Performed By: #### H STROPN, CRP, CK, CMP #### [facility] [address] [address] [address] Good Castellano Albumin/Globulin [Mass ratio] 0.3 {ratio} Normal [facility] Comment on above: Performed By: #### H STROPN, CRP, CK, CMP #### [facility] [address] [address] [address] Good Castellano ALP [Catalytic activity/Vol] 218 U/L Critically high 46-[address] [facility] Comment on above: Performed By: #### H STROPN, CRP, CK, CMP #### [facility] [address] [address] [address] Good Castellano ALT [Catalytic activity/Vol] 113 U/L Critically high 16-[address] [facility] Comment on above: Performed By: #### H STROPN, CRP, CK, CMP #### [facility] [address] [address] [address] Good Castellano Anion gap [Moles/Vol] 17.7 mmol/L Normal [facility] Comment on above: Performed By: #### H STROPN, CRP, CK, CMP #### [facility] [address] [address] [address] Good Castellano AST [Catalytic activity/Vol] 75 U/L Critically high 15-[address] [facility] Comment on above: Performed By: #### H STROPN, CRP, CK, CMP #### [facility] [address] [address] [address] Good Castellano Bilirubin [Mass/Vol] 2.7 mg/dL Critically high 0.2-1.[address] [facility] Comment on above: Performed By: #### H STROPN, CRP, CK, CMP #### [facility] [address] [address] [address] Good Castellano Calcium [Mass/Vol] 8.3 mg/dL Critically low 8.5-10.1 [facility] Comment on above: Performed By: #### H STROPN, CRP, CK, CMP #### [facility] [address] [address] [address] Good Castellano Chloride [Moles/Vol] 94 mmol/L Critically low 98-[address] [facility] Comment on above: Performed By: #### H STROPN, CRP, CK, CMP #### [facility] [address] [address] [address] Good Castellano CO2 [Moles/Vol] 19.4 mmol/L Critically low 21.0-32.[address] [facility] Comment on above: Performed By: #### H STROPN, CRP, CK, CMP #### [facility] [address] [address] [address] Good Castellano Creatinine [Mass/Vol] 2.38 mg/dL Critically high 0.70-1.[address] [facility] Comment on above: Performed By: #### H STROPN, CRP, CK, CMP #### [facility] [address] [place] [address] Dr. Good Castellano EGFR-AF AUSTRALIAN 34 mL/min/1.73m2 Critically low >=[address] [facility] Comment on above: Performed By: #### H STROPN, CRP, CK, CMP #### [facility] [address] [place] [address] Dr. Good Castellano EGFR-NON AF AUSTRALIAN 28 mL/min/1.73m2 Critically low >=[address] [facility] Comment on above: Performed By: #### H STROPN, CRP, CK, CMP #### [facility] [address] [place] [address] Dr. Good Castellano Globulin (S) [Mass/Vol] 4.5 g/dL Normal [facility] Comment on above: Performed By: #### H STROPN, CRP, CK, CMP #### [facility] [address] [place] [address] Dr. Good Castellano Glucose [Mass/Vol] 131 mg/dL Critically high 74-[address] [facility] Comment on above: Performed By: #### H STROPN, CRP, CK, CMP #### [facility] [address] [address] [address] Good Castellaon Potassium [Moles/Vol] 4.1 mmol/L Normal 3.5-5.[address] [facility] Comment on above: Performed By: #### H STROPN, CRP, CK, CMP #### [facility] [address] [address] [address] Good Castellano Protein [Mass/Vol] 5.9 g/dL Critically low 6.4-8.2 Th [facility] Comment on above: Performed By: #### H STROPN, CRP, CK, CMP #### [facility] [address] [place] [address] Dr. Good Castellano Sodium [Moles/Vol] 127 mmol/L Critically low 136-145 Th [facility] Comment on above: Performed By: #### H STROPN, CRP, CK, CMP #### [facility] [address] [place] [address] Dr. Good Castellano Urea nitrogen [Mass/Vol] 78.0 mg/dL Critically high 7.0-18.[address] [facility] Comment on above: Performed By: #### H STROPN, CRP, CK, CMP #### [facility] [address] [place] [address] Dr. Good Castellano Urea nitrogen/Creatinine [Mass ratio] 32.7 mg/mg Normal [facility] Comment on above: Performed By: #### H STROPN, CRP, CK, CMP #### [facility] [address] [place] [address] Dr. Good Castellano PROTIMEon 01-23-2023 INR Coag (PPP) [Relative time] 1.00 {INR} Normal [facility] Comment on above: Performed By: #### B CID2 #### [facility] [address] [place] [address] Dr. Good Castellano INR GUIDELINES SEE BELOW Normal [facility] Comment on above: Result Comment: ESTEBAN RED INR: 2.0 - 3.0 CONDITIONS NOT LISTED BELOW 2.5 - 3.5 FOR PROSTHETIC HEART VALVE REPLACEMENT 2.5 - 3.5 RECURRENT THROMBOSIS Performed By: #### B CID2 #### [facility] [address] [place] [address] Dr. Good Castellano PT Coag (PPP) [Time] 10.6 s Normal 9.0-11.[address] [facility] Comment on above: Performed By: #### B CID2 #### [facility] [address] [address] [address] Good Castellano PTTon 01-23-2023 aPTT Coag (Bld) [Time] 26.5 s Normal 22.3-36.2 [facility] Comment on above: Performed By: #### B CID2 #### [facility] [address] [place] [address] Dr. Good Castellano SED RATE WESTERGRENon 2022 SED RATE 103 mm/hr Critically high <=20 [facility] Comment on above: Performed By: #### S EDR #### [facility] [address] [place] [address] Dr. Good Castellano TROPONIN, HIGH SENSITIVITYon 01-23-2023 HSTROP 9.3 pg/mL Normal 4.0-76.1 [facility] Comment on above: Result Comment: CUT- OFF POINTS HAVE BEEN ESTABLISHED BASED ON THE FOURTH UNIVERSAL DEFINITIONS OF MYOCARDIAL INFARCTION. THE UPPER REFERENCE LIMIT (URL) OF TROPONIN, DEFINED THE 99TH PERCENTILE OF cTnI DISTRIBUTION IN A REFERENCE POPULATION, HAS BEEN CONFIRMED THE DECISION THRESHOLD FOR PA DIAGNOSIS. Performed By: #### H STROPN, CRP, CK, CMP #### [facility] [address] [place] [address] Dr. Good Castellano Vital Signs Date Time Vital Sign Value Performing Clinician Faci lity 04-12-2025 13:30-0400 Diastolic blood pressure 98 mm[Hg] Valente Lew Jr., MD Work Phone (unformatted): [phone] [facility] 04-12-2025 13:30-0400 SaO2% (BldA) [Mass fraction] 100 % Valente Lew Jr., MD Work Phone (unformatted): [phone] [facility] 04-12-2025 13:30-0400 Systolic blood pressure 144 mm[Hg] Valente calero MD Work Phone (unformatted): [phone] [facility] 04-12-2025 13:15-0400 Heart rate 72 /min Valente Lew Jr., MD Work Phone (unformatted): [phone] [facility] [place] [employer] 04-12-2025 13:15-0400 Respiratory rate 18 /min Valente Lew Jr., MD Work Phone (unformatted): [phone] [facility] [place] [employer] 04-12-2025 12:24-0400 Body temperature 97.7 [degF] Valente Lew Jr., MD Work Phone (unformatted): [phone] [facility] [place] [employer] 04-12-2025 11:16-0400 Body height 176.5 cm Valente Lew Jr., MD Work Phone (unformatted): [phone] [facility] [place] [employer] 04-12-2025 11:16-0400 Body mass index (BMI) [Ratio] 22.62 kg/m2 Valente Lew Jr., MD Work Phone (unformatted): [phone] [facility] [place] [employer] 04-12-2025 11:16-0400 Body weight 70.49 kg Valente Lew Jr., MD Work Phone (unformatted): [phone] [facility] [place] [employer] 02-06-2025 07:23-0400 Body temperature 98.4 [degF] Mickey Hubbard MD Work Phone: [facility] [place] [employer] 02-06-2025 07:23-0400 Diastolic blood pressure 92 mm[Hg] Mickey Hubbard MD Work Phone: [facility] [place] [employer] 02-06-2025 07:23-0400 Heart rate 79 /min Mickey Hubbard MD Work Phone: [facility] [place] [employer] 02-06-2025 07:23-0400 Respiratory rate 16 /min Mickey Hubbard MD Work Phone: [facility] [place] [employer] 02-06-2025 07:23-0400 Systolic blood pressure 144 mm[Hg] Mickey Hubbard MD Work Phone: [facility] [place] [employer] 02-06-2025 03:39-0400 SaO2% (BldA) [Mass fraction] 98 % Mickey Hubbard [facility] 02-05-2025 06:00-0400 Body mass index (BMI) [Ratio] 22.14 kg/m2 Mickey Hubbard MD Work Phone: [facility] [place] [employer] 02-05-2025 06:00-0400 Body weight 70 kg Mickey Hubbard MD [facility] 02-01-2025 11:32-0400 Body height 177.8 cm Mickey Hubbard MD [facility] 01-28-2023 19:37-0400 SaO2% (BldA) [Mass fraction] 98 % VALENTE LARA [facility] Comment on above: Order Comment: Specimen Type: ARTERIAL B LOOD SPECIMENOrdering Facility: [facility] Address: [address] [place] [address] Performed By: #### A LLBG ####[facility] [id number] [address] 01-28-2023 18:34-0400 SaO2% (BldA) [Mass fraction] 99 % VALENTE LARA [facility] Comment on above: Order Comment: Specimen Type: ARTERIAL B LOOD SPECIMENOrdering Facility: [facility] Address: [address] [place] [address] Performed By: #### A LLBG ####[facility]CLIA [id number] [place] [address] [place] Encounters Encounter Date Encounter Type Care Provider Facility Start: 07-05-2025 End: 07-05-2025 ambulatory Benji Wilkins [facility] Work Phone: Start: 07-05-2025 End: 07-05-2025 Departed Referred Benji Carlisle PA-C -[facility] Start: 04-12-2025 End: 04-12-2025 ambulatory VALENTE LEW [facility] Start: 04-12-2025 End: 04-12-2025 Subsequent hospital visit by physician Valente Lew MD Work Phone (unformatted): [phone] [facility] [place] Comment on above: Prostate cancer (HCC ); BPH with obstruction/lower urinary tract symptoms Start: 04-05-2025 End: 04-05-2025 ambulatory Santos Corona [facility] Work Phone: Start: 04-05-2025 End: 04-05-2025 Departed Referred Santos Corona DO Work Phone: [facility] Start: 01-30-2025 End: 02-06-2025 Evaluation and management of inpatient Mickey Hubbard MD Work Phone: [facility] Car 2- Stepdown Start: 05-03-2023 Refill Araceli Betts MD Work Phone: Hematology/Oncology Comment on above: Refill Request Start: 03-25-2023 End: 03-25-2023 ambulatory Ly Zaid GUERRA Work Phone: Orthopaedics Comment on above: S/P [place] proc edure (Primary Dx); S/P flap graft Start: 03-25-2023 End: 03-25-2023 Telemedicine consultation with patient Ly Zaid GUERRA Work Phone: [facility] Start: 03-10-2023 Telephone encounter Gaby walker MD Work Phone: Orthopaedics Comment on above: Orders Start: 03-07-2023 End: 03-07-2023 ambulatory IMER AMARO Facility:[facility] Start: 03-07-2023 End: 03-07-2023 Nutrition therapy Imer Amaro DURABLE MEDICAL EQUIPMENT TECHNICIAN.PREFINISH OPERATOR Work Phone: Plastic Surgery Comment on above: Post-operative state (Primary Dx); Severe protein-calorie malnutrition (HCC) Start: 03-07-2023 End: 03-07-2023 Telemedicine consultation with patient Imer Amaro KENTON.PREFINISH OPERATOR Work Phone: [facility] Start: 03-04-2023 ambulatory Alicia Nguyễn RN Infec tious Disease Comment on above: [employer]Pat Stop Start: 03-04-2023 Telephone encounter Imer Gomez yulisa [place]ON[place].PREFINISH OPERATOR Work Phone: Plastic Surgery Comment on above: Patient Question (Srini spencer from [facility] calling/) Start: 03-03-2023 Telephone encounter Alverto garcia MD Work Phone: Plastic Surgery Comment on above: Patient Update Start: 02-28-2023 End: 03-01-2023 ambulatory [facility] Start: 02-22-2023 End: 02-23-2023 ambulatory [facility] Start: 02-22-2023 End: 02-22-2023 Subsequent hospital visit by physician Gaby Parker MD Work Phone: [facility] Comment on above: Refill Request Start: 02-22-2023 Telephone encounter Gaby walker MD Work Phone: Orthopaedics Comment on above: Patient Update Start: 02-21-2023 Evaluation and management of inpatient [facility] Start: 02-17-2023 ambulatory Trinidad Lee Work Phone: [...] Start: 01-29-2023 End: 01-29-2023 ambulatory TOMÁS GARRETT Facility:[facility] Start: 01-24-2023 Evaluation and management of inpatient VALENTE LARA Facility:[facility] Start: 01-23-2023 End: 01-24-2023 ambulatory MERARI DEMARCO . Facility: Start: 10-15-2022 Refill Araceli Betts MD Work Phone: Hematology/Oncology Comment on above: Refill Request Start: 05-26-2022 ambulatory Araceli Betts MD Work Phone: Hematology/Oncology Comment on above: Me Start: 03-26-2022 Telephone encounter Araceli holland MD Work Phone: [facility] Comment on above: No Show Start: 03-18-2022 Telephone encounter Maryanne medellin PA-C Work Phone: Hematology/Oncology Comment on above: Lab Orders Start: 03-02-2022 ambulatory ARACELI BETTS Facility : Start: 03-01-2022 ambulatory Araceli Betts MD Work Phone: Hematology/Oncology Comment on above: Tests Start: 02-26-2022 ambulatory Thompson Bell DO Work Phone: [facility] Start: 02-26-2022 Patient encounter procedure Thompson Bell DO Work Phone: Palliative Medicine Comment on above: Appointment Start: 02-15-2022 Refill Maryanne Tavarez PAMalickC Work Phone: Hematology/Oncology Comment on above: Refill Request Start: 02-24-2021 Preoperative state Maryanne teran PA-C Work Phone: [facility] Work Phone: Procedures Date Procedure Procedure Detail Performing Clinician Start: 04-12-2025 Fluoroscopy during operation Valente Lew MD Work Phone (unformatted): [phone] Start: 02-06-2025 Glucose blood reagen t strip [...] 02-04-2025 Glucose blood reagen t strip Rhys Leigh DO Work Phone: Start: 02-04-2025 Plmt nephrostomy [...] 01-31-2025 Glucose blood reagen t strip Rhys Steve DO Work Phone: Start: 01-31-2025 BASIC METABOLIC [...] MD Work Phone: Start: 01-30-2025 Antinuclear antibodies ojse Maximo France MD Work Phone: Start: 01-30-2025 [...] Start: 01-30-2025 Assay of troponin quantitative Sumit George DO Work Phone: Start: 01-30-2025 End: 01-30-2025 Culture bacterial quanttative colony count urine Sumit George DO Work Phone: Start: 01-30-2025 Assay of troponin quantitative Sumit George DO Work Phone: Start: 01-30-2025 BASIC METABOLIC [...] Comment: Speci men Type: BLOOD SPECIMENOrdering Facility: [facility] Address: [address] [place] [address] Performed By: #### T SCR ####[facility] BLOOD BANKCLIA [id number] [address] Start: 03-28-2023 Antibody screen VALENTE LARA Comment on above: Order Comment: Speci men Type: BLOOD SPECIMENOrdering Facility: [facility] Address: [address] [address] Performed By: #### T SCR ####[facility] BLOOD BANKCLIA [id number] [address] Start: 02-05-2023 Antibody screen VALENTE LARA Comment on above: Order Comment: Speci men Type: BLOOD SPECIMENOrdering Facility: [facility] Address: [address] [address] Performed By: #### T SCR ####[facility] BLOOD BANKCLIA [id number] [address] Start: 02-02-2023 Antibody screen VALENTE LARA Comment on above: Order Comment: Speci men Type: BLOOD SPECIMENOrdering Facility: [facility] Address: [address] [address] Performed By: #### T SCR ####[facility] BLOOD BANKCLIA [id number] [address] Start: 01-30-2023 Antibody screen VALENTE LARA Comment on above: Order Comment: Speci men Type: BLOOD SPECIMENOrdering Facility: [facility] Address: [address] [address] Performed By: #### T SCR ####[facility] MA[facility] BLOOD BANKCLIA [id number] [address] Start: 01-27-2023 Antibody screen VALENTE LARA Comment on above: Order Comment: Speci men Type: BLOOD SPECIMENOrdering Facility: [facility] Address: [address] Performed By: #### T SCR ####[facility] MAIN BLOOD BANKCLIA [id number] [address] Start: 03-13-2023 Antibody screen VALENTE LARA Comment on above: Order Comment: Speci men Type: BLOOD SPECIMENOrdering Facility: [facility] Address: [address] [place] [address] Performed By: #### T SCR ####CC MAIN BLOOD BANKCLIA [id number] [place] Start: 02-28-2022 Adult depression scr eening assessment Thompson Bell DO Work Phone: Start: 11-15-2021 Adult depression scr eening assessment Maryanne Tavarez PA-C Work Phone: H/O: surgery S/P flap graft Gaby gonsalves MD Work Phone: H/O: surgery S/P flap graft Ly silverman PA-C Work Phone: Plan of Treatment Date Care Activity Detail Author Start: 2038 Respiratory Syncytia l Virus (RSV) or age 60 yrs+ (1 - 1-dose 75+ series) Respiratory Syncytial Virus (RSV) or age 60 yrs+ (1 - 1-dose 75+ series) [facility] Start: 12-25-2026 PROSTATE CANCER SCREENING DISCUSSION PROSTATE CANCER SCREENING DISCUSSION [facility] Start: 02-22-2026 DIABETES SCREEN DIABETES SCREEN [facility] Start: 02-13-2026 DIABETES SCREEN DIABETES SCREEN [facility] Start: 02-11-2026 DIABETES SCREEN DIABETES SCREEN [facility] Start: 02-08-2026 DIABETES SCREEN DIABETES SCREEN [facility] Start: 02-06-2026 GFR test (Diabetes, CKD 3-4, OR last GFR 15-59) GFR test (Diabetes, CKD 3-4, OR last GFR 15-59) [facility] Start: 02-02-2026 DIABETES SCREEN DIABETES SCREEN [facility] Start: 01-30-2026 Prostate specific antigen measurement Prostate Specific Antigen (PSA) Screening or Monitoring [facility] [place] [employer] Start: 07-05-2025 Bacteria identified in Urine by Culture Urine Culture [facility] Start: 07-05-2025 Urine culture [facility] Start: 06-14-2025 Influenza vaccination Flu vacc ine (Season Ended) [facility] Start: 04-12-2025 End: 04-12-2025 Litholapaxy smpl/sm <2.5 cm CYSTOSCOPY URETEROSCOPY LASER Prostate cancer (HCC) BPH with obstruction/lower urinary tract symptoms 04/12/2025 11:32 AM EDT [facility] Start: 04-05-2025 Bacteria identified in Urine by Culture Urine Culture [facility] Start: 04-05-2025 Urine culture [facility] Start: 02-22-2025 End: 02-22-2025 Patient encounter procedure 02/22/2025 1:00 PM EDT Office Visit [facility] [address] [place] [address] [address] [place] [address] Valente Lew Jr., MD [address] [place] [phone] (Work) hosp f/u, definitive stone treatment, et high volume retention and needs void trial. [facility] Comment on above: hosp f/u, definitive stone treatment, et high volume retention and needs void trial. Start: 01-30-2025 Annual Wellness Visi t (Medicare) Annual Wellness Visit (Medicare) [facility] Start: 12-25-2024 DIABETES SCREEN DIABETES SCREEN [facility] Start: 07-15-2024 COVID-19 Vaccine ( season) COVID-19 Vaccine ( season) [facility] Start: 06-14-2024 Influenza vaccination Flu vaccine (# 1) [facility] Start: 07-15-2023 Influenza vaccination INFLUENZ A (Season Ended) [facility] Start: 06-14-2023 Influenza vaccination Flu vacc ine (Season Ended) [facility] Start: 2023 Respiratory Syncytia l Virus (RSV) or age 60 yrs+ (1 - Risk 60-74 years 1-dose series) Respiratory Syncytial Virus (RSV) or age 60 yrs+ (1 - Risk 60-74 years 1-dose series) [facility] Start: 02-28-2023 Adult depression screening assessment DEPRESSION SCREENING [facility] Start: 11-15-2022 Adult depression screening assessment DEPRESSION SCREENING [facility] Start: 11-14-2022 DEPRESSION ASSESSMENT [facility] Start: 07-15-2022 Influenza vaccination C [facility] Start: 03-26-2022 End: 05-26-2022 CBC W Auto Differential panel - Blood CBC + DIFF Lab Routine Prostate cancer metastatic to bone (HCC) Expected: 03/26/2022, Expires: 05/26/2022 [facility] Work Phone: Comment on above: Expected: 03/26/2022 , Expires: 05/26/2022 Start: 11-14-2021 DEPRESSION ASSESSMENT [facility]PRESSION [facility] Start: 2013 Pneumococcal 50+ yea rs Vaccine (1 of 1 - PCV) Pneumococcal 50+ years Vaccine (1 of 1 - PCV) [facility] Start: 2013 Shingles vaccine (1 of 2) Shingles vaccine (1 of 2) [facility] Start: 2013 SHINGRIX VACCINE (1 of 2) SHINGRIX VACCINE (1 of 2) [facility] Start: 2008 COLOGUARD (FIT-DNA) COLOGUARD (FIT-D NA) [facility] Start: 2008 Colonoscopy COLONOSCOPY [facility] Start: 2008 COLORECTAL CANCER SCREENING COLORECTAL CANCER SCREENING [facility] Start: [address] COLONOGRAPHY [facility] Start: 2008 FECAL OCCULT BLOOD FECAL OCCULT BLOO D [facility] Start: 2008 Screening for malign ant neoplasm of colon [facility] Start: 2008 SIGMOIDOSCOPY SIGMOIDOSCOPY [facility] Start: 2003 Lipid panel Lipids [facility] Start: 1998 LIPID SCREEN LIPID SCREEN [facility] Start: 1982 DTaP/Tdap/Td vaccine (1 - Tdap) DTaP/Tdap/Td vaccine (1 - Tdap) [facility] Start: 1982 Pneumococcal 50+ yea rs Vaccine (1 of 2 - PCV) Pneumococcal 50+ years Vaccine (1 of 2 - PCV) [facility] Start: 1982 Shingles vaccine (1 of 2) Shingles vaccine (1 of 2) [facility] Start: 1982 SHINGRIX VACCINE (1 of 2) SHINGRIX VACCINE (1 of 2) [facility] Start: 1982 Urine microalbumin profile DTAP,TDAP,TD (1 - Tdap) [facility] Start: 1981 HEPATITIS C SCREENING HEPATITIS C SC REENING [facility] Start: 1981 HIV SCREENING HIV SCREENING [facility] Start: 1978 HIV screening HIV screen [facility] Start: 1975 COVID-19 VACCINE (1) COVID-19 VACCIN E (1) [facility] Start: 1975 Depression Screen Depression Screen [facility] Start: 1969 PNEUMOCOCCAL (1 - PCV) PNEUMOCOCCAL (1 - PCV) [facility] Start: 1968 COVID-19 VACCINE (#1) COVID-19 VACCI NE (#1) [facility] Start: 1963 COVID-19 VACCINE (#1) COVID-19 VACCI NE (#1) [facility] End: 02-10-2025 Basic metabolic 2000 panel - Serum or Plasma Basic Metabolic Panel Lab Routine Tomorrow AM for 5 Days starting 02/06/2025 until 02/10/2025, 1 completed [facility] Comment on above: Tomorrow AM for 5 Da ys starting 02/06/2025 until 02/10/2025, 1 completed End: 02-13-2025 Basic metabolic 2000 panel - Serum or Plasma Basic Metabolic Panel Lab Routine One Time for 1 Occurrences starting 02/13/2025 until 02/13/2025 [facility] Comment on above: One Time for 1 Occur rences starting 02/13/2025 until 02/13/2025 Continuous pulse oximetry Pulse oximetry, continuous Respiratory Care Routine Every 4hr until discontinued starting 01/30/2025 [facility] Comment on above: Every 4hr until disc ontinued starting 01/30/2025 Glucose [Mass/volume ] in Serum or Plasma [facility] Comment on above: 4X Daily (AC & HS) u ntil discontinued starting 01/30/2025 As Needed until disc ontinued starting 01/30/2025 End: 04-12-2025 Glucose [Mass/volume] in Serum or Plasma POCT Glucose Point of Care Testing Routine One Time for 1 Occurrences starting 04/12/2025 until 04/12/2025 [employer] Comment on above: One Time for 1 Occur rences starting 04/12/2025 until 04/12/2025 End: 01-30-2025 Hemodialysis Hemodialysis Dialysis Routine One Time for 1 Occurrences starting 01/30/2025 until 01/30/2025 [employer] Comment on above: One Time for 1 Occur rences starting 01/30/2025 until 01/30/2025 End: 04-12-2025 INITIATE PACU OXYGEN THERAPY PROTOCOL Initiate PACU Oxygen Therapy Protocol Respiratory Care Routine Continuous until discontinued starting 04/12/2025 [employer] Work Phone: Comment on above: Continuous until dis continued starting 04/12/2025 Oxygen therapy [Mini mum Data Set] Initiate Oxygen Therapy Protocol Respiratory Care Routine As Needed until discontinued starting 01/30/2025 [employer] Comment on above: As Needed until disc ontinued starting 01/30/2025 Oxygen therapy [Mini mum Data Set] Initiate Oxygen Therapy Protocol Respiratory Care Routine As Needed until discontinued starting 04/12/2025 [employer] Work Phone: Comment on above: As Needed until disc ontinued starting 04/12/2025 Pathology study Surgical Patholo gy Lab Routine Prostate cancer (HCC) BPH with obstruction/lower urinary tract symptoms Release Upon Ordering for 1 Occurrences starting 04/12/2025 [employer] Comment on above: Release Upon Orderin g for 1 Occurrences starting 04/12/2025 End: 03-26-2024 Radiologic examination pelvis 1/2 views XR PELVIS 1V AP Radiology Routine Necrotizing fasciitis (HCC) 1 Occurrences starting 02/28/2023 until 03/26/2024 [facility] Work Phone: Comment on above: 1 Occurrences starti ng 02/28/2023 until 03/26/2024 End: 04-12-2025 SURGICAL PATHOLOGY REPORT SURGICAL PATHOLOGY REPORT Lab Routine Once for 1 Occurrences starting 04/12/2025 until 04/12/2025 [facility] Comment on above: Once for 1 Occurrenc es starting 04/12/2025 until 04/12/2025 End: 03-26-2024 XR FEMUR GENERAL 2V AP/LAT LEFT XR FEMUR GENERAL 2V AP/LAT LEFT Radiology Routine Necrotizing fasciitis (HCC) 1 Occurrences starting 02/28/2023 until 03/26/2024 [facility] Work Phone: Comment on above: 1 Occurrences starti ng 02/28/2023 until 03/26/2024 [facility] Payers Date Payer Category Payer Self-pay 2021 Medicaid MEDICAID [facility] MEDICAID [id number] 2021-Present [phone] [address] [place] [address] Medicaid [id number] 2021 Medicaid [id number] 2021 Medicare MEDICARE MEDICAR E A AND B [id number] 2021-Present [phone] [place] [address] Medicare [id number] 2021 Medicare [id number] 2021 Medicare [id number] 1963 Unknown [id number] 1963 Unknown [id number] 1963 Unknown [id number] 1963 Unknown [id number] 1963 Unknown [id number] 1963 Unknown [id number] 1963 Unknown [id number] 1959 Medicaid [id number] 1961 Medicare [id number] 1961 Self-pay [id number] Social History Date Type Detail Facility Start: 04-24-2019 End: 04-12-2025 Tobacco smoking status ILIS Smokes tobacco daily [facility] History of tobacco use Cigarette Smoker C [facility] Start: 04-24-2019 End: 04-12-2025 Cigarettes smoked current (pack per day) - Reported 1 [facility] Start: 04-24-2019 End: 04-12-2025 Tobacco use and exposure Former smokeless tobacco user [facility] Start: 12-25-2021 End: 04-12-2025 Alcohol intake Ex-drinker (finding) [facility] Start: 1965 Sex Assigned At Male [facility] Start: 12-19-2021 End: 01-18-2022 Exposure to SARS-CoV-2 (event) Not sure [facility] Tobacco smoking stat us ILIS Tobacco smoking consumption unknown [employer] Phone: Start: 1965 Sex Assigned At Not on file [employer] Phone: Start: 01-30-2025 End: 04-12-2025 Alcohol Use Disorder Identification Test - Consumption [AUDIT-C] [employer] How often to you hav e a drink containing alcohol? Never [facility] How many standard dr inks containing alcohol do you have on a typical day? Patient does not drink [facility] How often do you hav e 6 or more drinks on 1 occasion? Less than monthly [facility] Start: 02-21-2023 End: 04-07-2025 Sex Male (finding) [facility] Medical Equipment Procedure Code Equipment Code Equipment Origin al Text Equipment Identifier Dates Cement Simplex P Tobramycin Bone Full Dose Radiopaque Preblend Sterile - [id number] Start: 02-25-2021 Cement Simplex P Tobramycin Bone Full Dose Radiopaque Preblend Sterile - [id number] Start: 02-25-2021 Head Lfit 26mm 0 Cocr Femoral C Taper Hip - [id number] Start: 02-25-2021 Stem Omnifit Fabián 8.9mm 132d 5 35mm Offset Cocr 110mm 30mm Femoral Cemented - [id number] Start: 02-25-2021 Restrictor Mediu m Melrose Cement Disposable Core Composer Feeder Distal - [id number] Start: 02-25-2021 Head Uhr 52mm 26 mm Melrose Cocr Uhmwpe Bipolar Hip - [id number] Start: 02-25-2021 Spacer Accolade 9mm Melrose Femoral Cemented Hip - [id number] Start: 02-25-2021 Stent:Urological -3/2 02/2025 [id number] Start: 02-04-2025 Functional Status Date Assessment Result Facility [facility] Clinical Notes 02-16-2022 to 04-12-2025 Discharge InstructionsDischarge InstructionsLennie Barry RN - 02/06/2025 8:53 AM Pantera Tierney MD - 02/05/2025 3:05 PM Jose G [...] narcotics Please call attending physician or hospital 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 documented in this encounter [facility] 02-06-2025 Hospital Discharge instructions Sondra Miner PA-C [...] sent through Care Everywhere.Ureteral Stent Placement: Post-op (Central African)Indwelling Urinary Catheter Care: General Info (Central African)documented in this encounter [facility] 02-06-2025 Note PROCEDURE: RIGHT NEPHROSTOGRAM WITH NEPHROSTOMY [...] the procedure including risks, benefits, and alternatives. Melrose protocol was observed. Sterile gowns, masks, hats and gloves utilized for maximal sterile barrier. Marriage And Family Social Worker view shows a right nephrostomy tube in [...] the procedure including risks, benefits, and alternatives. Melrose protocol was observed. Sterile gowns, masks, hats and gloves utilized for maximal sterile barrier. Marriage And Family Social Worker view shows a right nephrostomy tube in [...] by: Esau Egan MD 02/06/25 Final result [facility] 02-06-2025 History of Present illness Narrative [...] and requesting it to be sent to [email or web address] in [place]. RN sent PS to Dr Mcdonough and requested that it be sent there instead. Renal Progress Note Patient : Fareed Correa; 59 y.o. Location: Attending: Jose G Mcdonough [...] cycles. Was lost to follow-up. Presented to [facility] due to decreased urine output and fatigue. [...] of 6.9. He was then transferred to [facility] dialysis treatment on 01/30/2025. He then [...] Input/Output: I/O last 3 completed shifts: In: 1809 [P.O.:1810] Out: 8825 [Urine:8825]. Patient Vitals for [...] will continue to follow along with you. [facility] IN-PATIENT SERVICE [facility] Progress Note 02/05/2025 1:11 PM Name: Fareed Correa Acct: [id number] Room: Day: 6 Admit Date: 01/30/2025 4:04 AM PCP: German Davila, Code Status: Full Code Subjective: Interval History [...] C) Recent Labs 02/04/25 0754 02/04/25 1630 02/04/256 02/05/25 0733 POCGLU 118* 91 127* 97 [...] 02/03/25 1616 02/04/25 0754 02/04/25 1630 02/04/25 20302/05/25 0733 POCGLU 110 111* 118* 91 127* 97 ABG:No results found for: POCPH , PHART , PH , POCPCO2 , NES2RLO , PCO2 , POCPO2 , PO2ART , PO2 , POCHCO3 , JGU5NCA , HCO3 , NBEA , PBEA , BEART , BE , THGBART , THB , UQW6BRF , FZYC6JRN , G1GWSMEH , O2SAT , FIO2 Lab Results Component Value Date/Time SPECIAL Site: Urine 01/30/2025 05:19 AM Lab Results Component Value Date/Time CULTURE NO GROWTH 01/30/2025 05:19 AM Radiology: IR GUIDED NEPHROSTOMY CATH PLACEMENT RIGHT Result Date: 02/04/2025 Successful percutaneous right nephrostomy tube placement. Successful antegrade right ureteral stent placement; 8 Welsh by 24 cm double-J stent was deployed. [...] lost to follow-up, started [facility] 02/01/2025 Plan: S/P right antegrade stent and [...] AM 02/05/2025 Renal Progress Note Patient : Fareed Correa; 59 y.o. Location: Attending: Rhys Leigh DO [...] cycles. Was lost to follow-up. Presented to [facility] due to decreased urine output and fatigue. [...] of 6.9. He was then transferred to [facility] dialysis treatment on 01/30/2025. He then [...] the original note were not included. [facility] Office: [phone] Jose Roberto Child DO, Dominic Clay DO, Harrison Arciniega DO, Santos Spence DO, Lennie Martino MD, Jessica Urbina MD, Shayy Hernández MD, Tiffanie Russo MD, Rickey Hardy MD, Ger Philip MD, Calr Arvizu MD, Dwight Acevedo DO, Radha Easley [...] Susan Ribera CNP, Valente Mello CNP, Libby Claire, HARSHAL, Carmela Kilpatrick CNP, Britney Choudhury CNP, Clau Verma CNP, Velia Castillo CNP, Lidia Mathews PA-C, Kenisha Strong CNP, Cathy Jimenez CNP, Leah Ny, PREFINISH OPERATOR, Rebecca Perales, PREFINISH OPERATOR, Yvette Calderon, PREFINISH OPERATOR, Selena Breaux, SURGICAL PATHOLOGIST, Kady Hoffman CNP, Roxanne Lo CNP, Rosy Xavier, PREFINISH OPERATOR [facility] IN-PATIENT SERVICE [facility] Progress Note 02/04/2025 9:18 AM Name: Fareed Correa Acct: [id number] Room: IP Day: 5 Admit Date: 01/30/2025 4:04 AM PCP: German Davila, DO Code Status: Full Code Subjective: C/C: [...] metastatic prostate cancer [facility]. He states over the past week he noticed it became increasingly more difficult to urinate to the point where he was only urinating while sleeping with accidents. Complained of suprapubic abdominal pain. [facility] he was found to be hyperkalemic 6.9 and Hummel catheter was placed draining [address] imaging demonstrated bilateral hydronephrosis and hydroureter with a 4 mm stone in the distal right ureter just proximal to the ureteral vesicular junction. He was transferred to [facility] ICU for evaluation. He was evaluated by [...] , PHART , PH , POCPCO2 , VCS9NSH , PCO2 , POCPO2 , PO2ART , PO2 , POCHCO3 , NMM8HIS , HCO3 , NBEA , PBEA , BEART , BE , THGBART , THB , MZV5CXX , YWGC8OSD , G3YHFIKH , O2SAT , FIO2 Lab Results Component [...] BP: 138/79 Pulse: 93 98 Resp: 15 12 18 Temp: 98.2 F (36.8 C) TempSrc: [...] Pressure dressing applied. Nephrology Progress Note Patient: Fareed Correa; 59 y.o. Location: Attending: Rhys Leigh DO Admit Date: 01/30/2025 Hospital Day: 4 Subjective History: 59-year-old male with past medical history of prostate cancer with mets to the lung and bone in 2019 status post treatment with Casodex, Lupron, Taxotere, Xtandi and Zometa x 6 cycles who presented initially to [facility] due to urinary incontinence, decreased urine output [...] x 3, No FND. Labs Recent Labs 02/01/25 0902/02/25 0600 02/03/25 0645 WBC 10.6 9.6 8.2 RBC 3.59* 3.48* 3.55* HGB 8.8* 8.5* 8.8* HCT 28.5* 27.5* 28.5* MCV 79.4* 79.0* 80.3* MCH 24.5* 24.4* 24.8* MCHC 30.9 30.9 30.9 RDW 15.1* 15.0* 14.7* PLT 319 283 275 MPV 9.3 9.6 9.6 BMP: Recent Labs 02/01/25 0918 02/02/25 0600 02/03/25 0645 NA 140 139 136 K 4.0 4.1 4.4 CL 107 105 106 CO2 21 21 18* BUN 36* 30* 27* CREATININE 4.1* 3.2* 2.5* GLUCOSE 108* 111* 98 CALCIUM 8.0* 7.9* 8.5* Magnesium: Recent Labs 02/02/25 0600 02/03/25 0645 MG 1.5* 2.0 Urinalysis/Chemistries Lab Results [...] Thank you. Please call with any questions. Libby Claire APRN - TRUCK ENGINE TECHNICIAN [facility]. Attending Physician Statement I have discussed the care of Fareed Correa, including pertinent history and exam findings with [...] the original note were not included. [facility] Office: [phone] Jose Roberto Child DO, Dominic Clay DO, [...] MD, Dwight Gamble MD, Marcus Gamble MD, Anglea Martin CNP, Susan Ribera CNP, Valente Mello, PREFINISH OPERATOR, Libby Claire, [facility], Carmela Kilpatrick, PREFINISH OPERATOR, Britney Choudhury, PREFINISH OPERATOR, Clau Verma, PREFINISH OPERATOR, Velia Castillo, PREFINISH OPERATOR, Lidia Mathews PA-C, Kenisha Strong, PREFINISH OPERATOR, Cathy Jimenez, PREFINISH OPERATOR, Leah Ny, PREFINISH OPERATOR, Rebecca Perales, PREFINISH OPERATOR, Yvette Calderon, PREFINISH OPERATOR, Selena Breaux, [facility], Kady Hoffman, PREFINISH OPERATOR, Roxanne Lo, PREFINISH OPERATOR, Rosy Xavier, PREFINISH OPERATOR [facility] IN-PATIENT SERVICE [facility] Progress Note 02/03/2025 8:54 AM Name: Fareed Correa Acct: [id number] Room: Day: 4 Admit Date: 01/30/2025 4:04 [...] metastatic prostate cancer who initially presented to [facility] for urinary retention. He states over the past week he noticed it became increasingly more difficult to urinate to the point where he was only urinating while sleeping with accidents. Complained of suprapubic abdominal pain. At [facility] he was found to be hyperkalemic 6.9 and Hummel catheter was placed draining [address] imaging demonstrated bilateral hydronephrosis and hydroureter with a 4 mm stone in the distal right ureter just proximal to the ureteral vesicular junction. He was transferred to [facility] ICU for evaluation. He was evaluated by [...] Max:98.5 F (36.9 C) Recent Labs 02/02/25 0702/02/25 11202/02/25162302/02/251915 POCGLU 111* 122* 131* 128* I/O (24Hr): [...] CALCIUM 8.0* 7.9* 8.5* Recent Labs 02/01/25 16202/01/25 19102/02/25 0702/02/25 1124 02/02/25 1624 02/02/25 1916 POCGLU 90 213* 111* 122* 131* 128* ABG:No results found for: POCPH , PHART , PH , POCPCO2 , MPI3HMQ , PCO2 , POCPO2 , PO2ART , PO2 , POCHCO3 , JKM4IWA , HCO3 , NBEA , PBEA , BEART , BE , THGBART , THB , ECW4JBF , BPZS2RLJ , G8ZOTBXL , O2SAT , FIO2 Lab Results Component [...] Hyperkalemia. Secondary to obstructive uropathy. Status post Uhmmel catheter placement. Nephrology following. Due to severe [...] 4.1 4.4 CL 107 105 106 CO2 18* BUN 36* 30* 27* CREATININE 4.1* [...] 8:23 AM 02/03/2025 Nephrology Progress Note Patient: Fareed Correa; 59 y.o. Location: Attending: Rhys Leigh DO Admit Date: 01/30/2025 Hospital Day: 3 Subjective History: 59-year-old male with past medical history of prostate cancer with mets to the lung and bone in 2019 status post treatment with Casodex, Lupron, Taxotere, Xtandi and Zometa x 6 cycles who presented initially to [facility] due to urinary incontinence, decreased urine output [...] questions. KENTON Zamorano NP [facility]. Attending Physician Statement I have discussed the care of Fareed Correa, including pertinent history and exam findings with [...] 4.0 4.1 CL 101 107 105 CO2 BUN 50* 36* 30* CREATININE 5.7* 4.1* [...] the original note were not included. [facility] Office: [phone] Jose Roberto Child DO, Dominic Clay DO, [...] Gamble MD, Marcus Gamble MD, Angela Martin, PREFINISH OPERATOR, Susan Ribera, PREFINISH OPERATOR, Valente Mello, PREFINISH OPERATOR, Libby Claire, HARSHAL, Carmela Kilpatrick, PREFINISH OPERATOR, Britney Choudhury, PREFINISH OPERATOR, Clau Verma, PREFINISH OPERATOR, Velia Castillo, PREFINISH OPERATOR, Lidia Mathews, PA-C, Kenisha Strong, PREFINISH OPERATOR, Cathy Jimenez, PREFINISH OPERATOR, Leah Ny, PREFINISH OPERATOR, Rebecca Perales, PREFINISH OPERATOR, Yvette Calderon, PREFINISH OPERATOR, Selena Breaux, SURGICAL PATHOLOGIST, Kady Hoffman, PREFINISH OPERATOR, Roxanne Lo, PREFINISH OPERATOR, Rosy Xavier, PREFINISH OPERATOR [facility] IN-PATIENT SERVICE [facility] Progress Note 02/02/2025 8:39 AM Name: Fareed Correa Acct: [id number] Room: IP Day: 3 Admit Date: 01/30/2025 4:04 AM [...] metastatic prostate cancer who [facility]. He states over the past week he noticed it became increasingly more difficult to urinate to the point where he was only urinating while sleeping with accidents. Complained of suprapubic abdominal pain. [facility] he was found to be hyperkalemic 6.9 and Hummel catheter was placed draining [address] imaging demonstrated bilateral hydronephrosis and hydroureter with a 4 mm stone in the distal right ureter just proximal to the ureteral vesicular junction. He was transferred to [facility] ICU for evaluation. He was evaluated by [...] , PHART , PH , POCPCO2 , GTL9OGY , PCO2 , POCPO2 , PO2ART , PO2 , POCHCO3 , FAJ3MQH , HCO3 , NBEA , PBEA , BEART , BE , THGBART , THB , ZLX9FWM , AKOX0KTL , Q8LOAXXA , O2SAT , FIO2 Lab Results Component [...] the original note were not included. [facility] Office: [phone] Jose Roberto Child DO, Dominic Clay DO, Harrison Arciniega DO, Santos Spence DO, Lennie Martino MD, Jessica Urbina MD, Shayy Hernández MD, Tiffaine Russo MD, Rickey Hardy MD, Ger Philip [...] Susan Ribera CNP, Valente Mello CNP, Libby Claire, HARSHAL, Carmela Kilpatrick, PREFINISH OPERATOR, Britney Choudhury, PREFINISH OPERATOR, Clau Verma, PREFINISH OPERATOR, Velia Castillo, PREFINISH OPERATOR, Lidia Mathews PA-C, Kenisha Strong, PREFINISH OPERATOR, Cathy Jimenez PREFINISH OPERATOR, Leah Ny PREFINISH OPERATOR, Rebecca Perales, PREFINISH OPERATOR, Yvette Calderon, PREFINISH OPERATOR, Selena Breaux, SURGICAL PATHOLOGIST, Kady Hoffman, PREFINISH OPERATOR, Roxanne Lo, PREFINISH OPERATOR, Rosy Xavier, PREFINISH OPERATOR [facility] IN-PATIENT SERVICE [facility] Progress Note 02/01/2025 10:54 AM Name: Fareed Correa Acct: [id number] Room: IP Day: 2 Admit Date: 01/30/2025 4:04 AM [...] metastatic prostate cancer who [facility]. He states over the past week he noticed it became increasingly more difficult to urinate to the point where he was only urinating while sleeping with accidents. Complained of suprapubic abdominal pain. [facility] he was found to be hyperkalemic 6.9 and Hummel catheter was placed draining [address] imaging demonstrated bilateral hydronephrosis and hydroureter with a 4 mm stone in the distal right ureter just proximal to the ureteral vesicular junction. He was transferred to [facility] ICU for evaluation. He was evaluated by [...] -938.45 ml Labs: Hematology: Recent Labs 01/30/25 0449 01/31/25 0437 02/01/25 0918 WBC 12.1* 11.8* 10.6 [...] , PHART , PH , POCPCO2 , URL8UFK , PCO2 , POCPO2 , PO2ART , PO2 , POCHCO3 , HGE3NWS , HCO3 , NBEA , PBEA , BEART , BE , THGBART , THB , XZK7QFC , GCZI3KOO , R6QZDTFB , O2SAT , FIO2 Lab Results Component [...] med as not-given, leave as is in JAN. Care ongoing. Renal Progress Note Patient : Fareed Correa; 59 y.o. Location: Attending: Rhys Leigh DO [...] x 6 cycles who presented initially to [facility] due to urinary incontinence, decreased urine output [...] Extremities: No edema. Labs: Recent Labs 01/30/25 0449 01/31/25 0437 WBC 12.1* 11.8* RBC 4.05* 4.08* [...] a renal diet/TF. Avoid nephrotoxic drugs/contrast exposure. JOHN Cantu [facility] This note is created with the assistance of a speech-recognition program. While intending to generate a document that actually reflects the content of the visit, no guarantees can be provided that every mistake has been identified and corrected by editing. Attending Physician Statement I have discussed the care of Fareed Correa, including pertinent history and exam findings with [...] for tomorrow ordered Maximo France MD , MD 0300 Patient arrived to unit via bed with charted belongings, report received from Maribel CHERY. Assuming care. 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 Asked patient if it is possible a [...] and time: 01/31/2025 1:04 AM Patient's name: Fareed Correa Patient's account/billing number: [id number] Patient's Date of : 1965 Age: 59 y.o. Date of Admission: 01/30/2025 4:04 AM Length of stay during current admission: 1 Primary Care Physician: German Davila DO Code Status: Full Code Mode of physician to physician communication: [] Via telephone [] In person Date and time of sign-out: 01/31/2025 1:04 AM Accepting Internal Medicine Activities Aide: Ms. Teresita Oliveira NP Accepting Medicine team: IM Team Intermed Accepting team's attending: Dr. Ocampo Patient's current ICU Bed: 3011 Patient's assigned bed on floor: 2023 [] Med-Surg Monitored [x] Step-down [] Psychiatry ICU [] Psych floor Reason for ICU admission: VALERIA with hyperkalemia ICU course summary: Patient initially presented to [facility] with difficulty in voiding. Has a [...] onwards on the floor. Dylan Garrett MD, M.D. PGY-3 IM Resident 01/31/2025, 1:04 AM Report given to VIK Zhou. All questions answered. When discussing next of kin/decision makers, pt reported he has not filled out any advanced directives. He has 3 sons and a stepson (that he did not adopt). The for the alberta has been at bedside with pt throughout [...] the 3 sons. As it stands, sons Fareed ORANTES, Ming and Juan F are NOK. ADDENDUM: Asked pt again about NOK and he's again expressing interest in having his neighbor make decisions for him as DPOA. RN asked why pt changed his mind with the acetylene plant operator and pt reported he's been confused . [...] of access used=R Temp cath Length of wlpqdfucj=667 minutes Date of last dressing change =01/30/25 new line Pt tolerated 1st HD treatment well, vital stable, no issues. Report given to primary RN Lizette Liu. Dialysis Time Out To be done by [...] to ask questions. documented in this encounter [facility] 02-05-2025 Note PROCEDURE: PERCUTANEOUS ANTEGRADE PYELOGRAM RIGHT [...] the procedure including risks, benefits, and alternatives. Melrose protocol was followed. Patient is on intravenous [...] over the guidewire. Through the outer 6 Welsh cannula an angled catheter and Glidewire were advanced and negotiated into the ureter. Guidewire and catheter were directed into the bladder. Small amount of contrast injected verifying catheter tip in the bladder. There is a Hummel catheter in place. An Amplatz guidewire was placed through the catheter. An 8 Welsh by 24 cm double-J ureteral stent was deployed with the distal loop formed in the bladder. The proximal loop was formed in the renal pelvis. Small amount of contrast injected verifying appropriate catheter positioning and patency. An 8 Welsh nephrostomy tube was placed over the guidewire [...] stable condition. EBL: Less than 5 mL. [facility] 02-05-2025 Note PROCEDURE: PERCUTANEOUS ANTEGRADE [...] the procedure including risks, benefits, and alternatives. Melrose protocol was followed. Patient is on intravenous [...] over the guidewire. Through the outer 6 Welsh cannula an angled catheter and Glidewire were advanced and negotiated into the ureter. Guidewire and catheter were directed into the bladder. Small amount of contrast injected verifying catheter tip in the bladder. There is a Hummel catheter in place. An Amplatz guidewire was placed through the catheter. An 8 Welsh by 24 cm double-J ureteral stent was deployed with the distal loop formed in the bladder. The proximal loop was formed in the renal pelvis. Small amount of contrast injected verifying appropriate catheter positioning and patency. An 8 Welsh nephrostomy tube was placed over the guidewire [...] Successful antegrade right ureteral stent placement; 8 Welsh by 24 cm double-J stent was deployed. Interpreted by: Esau Egan MD Signed by: Esau Egan MD 02/05/25 Final result [facility] 03-25-2023 Note [facility] 03-25-2023 History of Present illness Narrative Orthopaedic Surgery Follow-Up Clinic Note Admission Dates: 01/24/2023-02/16/2023 Surgery/Date: 02/11/2023 - Dr. Rogers, Plastic Surgery Split thickness skin grafting left lateral thigh 17 x 6 cm Application of nondisposable wound VAC > 50 cm Surgery/Date: 02/03/2023 - Dr. Parker Wound Bed Preparation with Continued Closure of the Wound Edges to the Surrounding Muscle (CPT 10126, 45756, 74934) Placement of KCI Wound VAC Prevena, Conventional Technique, >50cm2, Durable Multimedia Teacher (CPT 08709) Surgery/Date: 01/29/2023 - Dr. Benítez INCISION AND DRAINAGE DEEP PELVIS / HIP JOINT AREA ABSCESS Left thigh wound vacuum application > 50cm^2 Surgery/Date: 01/31/2023 - Dr. Fisher Left thigh irrigation and debridement for necrotizing soft tissue infection including muscle, fascia and bone Left hip explantation of cemented hemiarthroplasty and Girdlestone Surgery/Date: 01/24/2023- Dr. Ruiz/[place] Incision and Drainage Abscess, Left Hip - Dr. Ruiz Diagnosis: 1) Left Thigh Necrotizing Fasciitis s/p [...] This represents our 1st postoperative visit with Fareed and his significant other, Libia today by way of virtual visit. - Patient was discharged home, not to a SNF. - Saw Iemr Amaro with plastics by virtual visit on [...] are working to get patient transport to [place] to have post-op xrays completed. A/P: - RTC: Patient will notify us when he is able to obtain Xrays. We will then review with him. Virtual visits work best for him as he states he lives 4 miles out of the range that his insurance is willing to drive from home to [facility]. He notes that he does feel like he may be able to sit in a car soon however. Either Fareed or Libia are to notify us when xrays are completed and we will have them pushed. - DME is a medical necessity for Fareed's health and well-being: - Wheelchair is medically [...] written to send with today's note to [employer] - Nonweightbearing on left lower extremity - [...] weeks from original washout Ly Spicer PA-C, [facility] Department of Orthopedic Surgery 03/25/2023 1:00 PM documented in this encounter [facility] 03-10-2023 Miscellaneous Notes Letter written to fax to [employer]. Sent to be faxed. Ly Spicer PA-C documented in this encounter [facility] 03-07-2023 Note [facility] 03-07-2023 History of Present illness Narrative Plastic Surgery Follow Up CC: post op HPI: Fareed Correa SR is here for postoperative follow up. This appointment is being conducted virtually as patient does not have transportation to attend in-person appointments at this time. Patient's [facility] Charito is also on the virtual appointment [...] prior to visit. ALLERGIES: ALLERGIES Allergen Reactions [place] [Hydrocodone-* Unknown Patient is on oxycodone and hydromorphone outpatient PHYSICAL EXAM: Physical exam limited by the virtual nature of this appointment. Awake, alert, oriented x3. NAD. Lying in bed. Significant other, Libia and [facility] VIK Mcneill at bedside. 98.1 temp and 132/70 per [...] regarding management of these dressings. ASSESSMENT/PLAN: Mr. Correa is now 24 days s/p Split thickness [...] -Left lateral thigh sutures removed today by [facility] RN without complication. -Continue to cleanse the [...] Imer Amaro APRN.CNP documented in this encounter [facility] 03-04-2023 Miscellaneous Notes Spoke with patient's [facility] RN Charito. Patient missed his appointments this [...] ortho. Patient needs imaging per their request. Charito states that this could be done locally at [facility] or [facility] if need be. I will reach out to Colton's team to help coordinate next steps. Charito's [facility] Agency can be reached at [phone] (Speak with Lydia or Clau). documented in this encounter [facility] 03-04-2023 Nurse Note Order received from Dr Brown to honor COPAT stop and pull picc. Call placed to home care team to advise okay to pull picc. Verbal order given to Teri. Call placed to [facility]. Verbal order given to Kristina to honor COPAT stop. Picc being pulled by nursing. documented in this encounter [facility] 03-03-2023 Miscellaneous Notes Charito from [facility] called to inform that patient could not make yesterdays appointment due to transportation issues. Mileage is over what transportation allows. Nurse staff would like further direction on wound care. They are also unsure on how to get patient out to see the doctor. Would like to speak with clinical staff. ph. [phone] documented in this encounter [facility] 02-22-2023 Miscellaneous Notes PDMP website checked and [...] Oxy. Pharmacy confirmed. documented in this encounter [facility] 02-22-2023 Miscellaneous Notes [facility] called w update. They tried to have pt go to nursing facility due to difficulty for to care for him. He refused. [facility] is reordering home care pt/ot. pt is s/p surg 02/03 closure wound, left decubitus documented in this encounter [facility] 02-17-2023 Miscellaneous Notes Spoke with [facility] agency regarding his orders. They requested to have the orders faxed to them. Sent orders to Belinda to fax. Tessie Colvin RN February 17, 2023 11:14 AM Charito from [facility] needs clarification of wound orders. Please call [phone] to update with the nursing melt supervisor. documented in this encounter [facility] 02-17-2023 Note HNO ID: [id number] Author: Eunice De La Torre RN Service: ? Author Type: Registered Nurse Type: Nursing Progress Note Filed: 02/16/2023 10:28 PM Note Text: pt discharged via ambulance to home [facility] 02-16-2023 Note [facility] 02-16-2023 Miscellaneous Notes Call received from Leeann at [facility] stating they have been trying to get [...] Jaimee Morales RN documented in this encounter [facility] 02-16-2023 Note [facility] 02-15-2023 Note [facility] 02-15-2023 Note [facility] 02-14-2023 Note [facility] 02-14-2023 Note [facility] 02-14-2023 Note [facility] 02-13-2023 Note [facility] 02-13-2023 Note HNO ID: [id number] Author: Interface Note Service: ? Author Type: ? Type: Progress Notes Filed: 02/13/2023 1:52 AM Note Text: Epic Scheduled Downtime: 02/13/2023 1:00:00 AM to 02/13/2023 1:46:00 AM [facility] 02-12-2023 Note [facility] 02-11-2023 Note [facility] 02-11-2023 Note [facility] 02-11-2023 Note [facility] 02-10-2023 Note [facility] 02-10-2023 Note [facility] 02-09-2023 Note [facility] 02-09-2023 Note [facility] 02-08-2023 Note HNO ID: [id number] Author: Ana Lewis RN Service: ? Author Type: Registered Nurse Type: Nursing Progress Note Filed: 02/08/2023 4:17 PM Note Text: Other: 1600-assumed pt care. no distress. pain meds given prn [facility] 02-08-2023 Note [facility] 02-08-2023 Miscellaneous Notes Message left for [...] been admitted for a couple weeks to [facility]. Libia is asking Dr Betts to go through pt's chart and to give recommendations as to what options are for treatment. Libia states the doctors inpatient won't give them details or discuss options with them and tell them that it's up to his oncologist. Please advise Jaimee Morales RN documented in this encounter [facility] 02-08-2023 Note [facility] 02-07-2023 Note [facility] 02-07-2023 Note [facility] 02-06-2023 Note [facility] 02-06-2023 Note [facility] 02-06-2023 Note [facility] 02-05-2023 Note [facility] 02-04-2023 Note [facility] 02-04-2023 Note [facility] 02-03-2023 Note [facility] 02-03-2023 Note [facility] 02-03-2023 Note [facility] 02-02-2023 Note [facility] 02-02-2023 Note [facility] 02-01-2023 Note [facility] 02-01-2023 Note [facility] 01-31-2023 Note [facility] 01-31-2023 Note [facility] 01-31-2023 Note [facility] 01-30-2023 Note [facility] 01-30-2023 Note [facility] 01-29-2023 Note [facility] 01-29-2023 Note [facility] 01-28-2023 Note [facility] 01-28-2023 Note [facility] 01-28-2023 Note [facility] 01-28-2023 Note [facility] 01-27-2023 Note [facility] 01-27-2023 Note [facility] 01-27-2023 Note [facility] 01-26-2023 Note [facility] 01-26-2023 Note [facility] 01-26-2023 Note [facility] 01-26-2023 Note [facility] 01-25-2023 Note [facility] 01-25-2023 Note [facility] 01-24-2023 Note [facility] 01-24-2023 Note [facility] 01-24-2023 Note [facility] 01-24-2023 Note [facility] 01-24-2023 Note [facility] 01-24-2023 Note [facility] 03-29-2022 Miscellaneous Notes Call placed to patient, no answer. Left message on voicemail to call back to reschedule. Diana Daniels Please reschedule Patient did not show for appointment today. Diana Daniels documented in this encounter [facility] 03-18-2022 Miscellaneous Notes Please sign CBC for 03/26/22. Deanne Brown MA documented in this encounter [facility] 03-01-2022 Miscellaneous Notes Can you schedule him to do those at [facility]. Thanks documented in this encounter [facility] 02-16-2022 Miscellaneous Notes The following prescription(s) will be transmitted electronically to [facility] upon approval. Patient has [...] 2022 11:08 AM documented in this encounter [facility] Evaluation note Diagnosis Prostate cancer metastatic to bone (HCC)- Primary [facility] Diagnosis S/P flap graft Other postprocedural status [facility] Diagnosis Post-operative state- Primary Other postprocedural status Severe protein-calorie malnutrition (HCC) Other severe protein-calorie malnutrition [facility] Diagnosis S/P Girdlestone procedure- Primary Other postprocedural status S/P flap graft Other postprocedural status documented in this encounter [facility] note* Diagnosis Necrotizing fasciitis (HCC)- Primary Necrotizing fasciitis documented in this encounter [facility] note* Diagnosis Acute renal failure- Primary Acute kidney failure, unspecified VALERIA (acute kidney injury) Acute kidney failure, unspecified Obstructive uropathy Urinary obstruction, unspecified Hyperkalemia Hyperpotassemia Metabolic acidosis Acidosis History of prostate cancer Personal history of malignant neoplasm of prostate Urinary retention Retention of urine, unspecified documented in this encounter [facility] noteNo assessment information available [facility] Work Phone: Evaluation note* Diagnosis Prostate cancer (HCC) Malignant neoplasm of prostate BPH with obstruction/lower urinary tract symptoms Hypertrophy of prostate with urinary obstruction and other lower urinary tract symptoms (LUTS) documented in this encounter [facility] for referral (narrative)* Diagnostic Procedure Only (Routine) - Authorized Specialty Diagnoses / Procedures Referred By Contac t Referred To Contact XR IMAGING Diagnoses Necrotizing fasciitis (HCC) Procedures XR PELVIS 1V AP RADIOLOGIC EXAMINATION PELVIS 1/2 VIEWS Gaby Parker MD [address] [id number] Xr Imaging Referral ID Status Reason Start Date Expiration Date Visits Requested Visits Authorized [id number] Authorized Auto-Generat ed Referral 02/28/2023 03/26/2024 1 1 * Diagnostic Procedure Only (Routine) - Authorized Specialty Diagnoses / Procedures Referred By Contac t Referred To Contact XR IMAGING Diagnoses Necrotizing fasciitis (HCC) Procedures XR FEMUR GENERAL 2V AP/LAT LEFT RADIOLOGIC EXAMINATION FEMUR MINIMUM 2 VIEWS Gaby Parker MD [address] [place] [address] Xr Imaging Referral ID Status Reason Start Date Expiration Date Visits Requested Visits Authorized [id number] Authorized Auto-Generat ed Referral 02/28/2023 03/26/2024 1 1 [facility] for referral (narrative)No reason for referral [facility]: reason for visit Narrative* Auth/Cert Specialty Diagnoses / Procedures Referred By Contac t Referred To Contact Diagnoses Acute renal failure (ARF) Mickey Hubbard MD [address] [facility] [address] [id number] Phone: tel: fax: [employer] [id number] [place] [phone] Referral ID Status Reason Start Date Expiration Date Visits Re quested Visits Authorized [id number] [facility] [place] [email or web address] [facility] N[facility]* Auth/Cert Specialty Diagnoses / Procedures Referred By Enrique t Referred To Contact Diagnoses Prostate cancer (HCC) BPH with obstruction/lower urinary tract symptoms Procedures NH LITHOLAPAXY SMPL/SM <2.5 CM CYSTOSCOPY RIGHT URETEROSCOPY HOLMIUM LASER RIGHT STENT EXCHANGE CHANNEL TURP Valente Lew Jr., MD [address] [place] [address] Phone: tel: [phone] fax: [employer] [id number] [place] [phone] Referral ID Status Reason Start Date Expiration Date Visits Re quested Visits Authorized [id number] 1 1 [employer] Advance Directives No Advanced Directives Records Found Date Activated Date Inactivated Comments 01/30/2025 4:39 AM 02/06/2025 2:29 PM Date Activated Date Inactivated Comments 01/30/2025 4:39 AM 01/30/2025 4:39 AM Healthcare Agents on File Name Relationship Healthcare Agent Johanaaz mona Communication Ming Correa Child Primary Decision Maker [phone] (Home) Documents on File Type Date Recorded Patient Acquisition Editor Expl anation Advance Directive(s) 02/24/2021 2:23 PM [...] With: Patient Surrogate Decision Maker Name: Jaylan watkins Full Code 02/24/2021 12:26 AM 02/26/2021 10:11 [...] Name Relationship Healthcare Agent Relationshi p Communication Fareed Correa II Child Primary Decision Maker Ming Correa Child Primary Decision Maker Juan F Correa Child Primary Decision Maker Summary Purpose Family [...] any alcohol or drug abuse patient.[facility] the event this information is protected by the Federal Confidentiality of Alcohol and Drug Abuse Patient Records regulations: The Federal rules restrict any use of the information to criminally investigate or prosecute any alcohol or drug abuse patient.[facility] the event this information is protected by the Federal Confidentiality of Alcohol and Drug Abuse Patient Records regulations: The Federal rules restrict any use of the information to criminally investigate or prosecute any alcohol or drug abuse patient.[facility] the event this information is protected by the Federal Confidentiality of Alcohol and Drug Abuse Patient Records regulations: The Federal rules restrict any use of the information to criminally investigate or prosecute any alcohol or drug abuse patient.[facility] the event this information is protected by the Federal Confidentiality of Alcohol and Drug Abuse Patient Records regulations: The Federal rules restrict any use of the information to criminally investigate or prosecute any alcohol or drug abuse patient.[facility] the event this information is protected by the Federal Confidentiality of Alcohol and Drug Abuse Patient Records regulations: The Federal rules restrict any use of the information to criminally investigate or prosecute any alcohol or drug abuse patient.[facility] the event this information is protected by the Federal Confidentiality of Alcohol and Drug Abuse Patient Records regulations: The Federal rules restrict any use of the information to criminally investigate or prosecute any alcohol or drug abuse patient.[facility] the event this information is protected by the Federal Confidentiality of Alcohol and Drug Abuse Patient Records regulations: The Federal rules restrict any use of the information to criminally investigate or prosecute any alcohol or drug abuse patient.[facility] the event this information is protected by the Federal Confidentiality of Alcohol and Drug Abuse Patient Records regulations: The Federal rules restrict any use of the information to criminally investigate or prosecute any alcohol or drug abuse patient.[facility] Hospital[facility] the event this information is protected by the Federal Confidentiality of Alcohol and Drug Abuse Patient Records regulations: The Federal rules restrict any use of the information to criminally investigate or prosecute any alcohol or drug abuse patient.[facility] Hospital[facility] the event this information is protected by the Federal Confidentiality of Alcohol and Drug Abuse Patient Records regulations: The Federal rules restrict any use of the information to criminally investigate or prosecute any alcohol or drug abuse patient.[facility] the event this information is protected by the Federal Confidentiality of Alcohol and Drug Abuse Patient Records regulations: The Federal rules restrict any use of the information to criminally investigate or prosecute any alcohol or drug abuse patient.[facility] the event this information is protected by the Federal Confidentiality of Alcohol and Drug Abuse Patient Records regulations: The Federal rules restrict any use of the information to criminally investigate or prosecute any alcohol or drug abuse patient.[facility] the event this information is protected by the Federal Confidentiality of Alcohol and Drug Abuse Patient Records regulations: The Federal rules restrict any use of the information to criminally investigate or prosecute any alcohol or drug abuse patient.[facility] Hospital[facility] the event this information is protected by the Federal Confidentiality of Alcohol and Drug Abuse Patient Records regulations: The Federal rules restrict any use of the information to criminally investigate or prosecute any alcohol or drug abuse patient.[facility] Hospital[facility] the event this information is protected by the Federal Confidentiality of Alcohol and Drug Abuse Patient Records regulations: The Federal rules restrict any use of the information to criminally investigate or prosecute any alcohol or drug abuse patient.[facility] HospitalIn the event this information is protected by the Federal Confidentiality of Alcohol and Drug Abuse Patient Records regulations: The Federal rules restrict any use of the information to criminally investigate or prosecute any alcohol or drug abuse patient.[facility] HospitalIn the event this information is protected by the Federal Confidentiality of Alcohol and Drug Abuse Patient Records regulations: The Federal rules restrict any use of the information to criminally investigate or prosecute any alcohol or drug abuse patient.[facility] Hospital[facility] the event this information is protected by the Federal Confidentiality of Alcohol and Drug Abuse Patient Records regulations: The Federal rules restrict any use of the information to criminally investigate or prosecute any alcohol or drug abuse patient.[facility] Hospital[facility] the event this information is protected by the Federal Confidentiality of Alcohol and Drug Abuse Patient Records regulations: The Federal rules restrict any use of the information to criminally investigate or prosecute any alcohol or drug abuse patient.[facility] Hospital[facility] the event this information is protected by the Federal Confidentiality of Alcohol and Drug Abuse Patient Records regulations: The Federal rules restrict any use of the information to criminally investigate or prosecute any alcohol or drug abuse patient.[facility] Hospital[facility] the event this information is protected by the Federal Confidentiality of Alcohol and Drug Abuse Patient Records regulations: The Federal rules restrict any use of the information to criminally investigate or prosecute any alcohol or drug abuse patient.[facility] HospitalIn the event this information is protected by the Federal Confidentiality of Alcohol and Drug Abuse Patient Records regulations: The Federal rules restrict any use of the information to criminally investigate or prosecute any alcohol or drug abuse patient.[facility] Reason for Visit (unrecogniz ed section and [...] Stop Reason Comments Patient Question Charito from [facility] call ing Reason Comments Post Op Reason Comments Orders Reason Comments Patient Update Reason Onset Date Comments Refill Request 05/03/2023 Care Teams (unrecognized sec tion and content) Rn Compliance Relationship Specialty Start Date End Date Jaimee Morales RN [address] [place] [address] Specialty Cheese Sprayer Hematology/Oncology 06/25/19 Araceli Betts MD [address] [place] [address] Physician Hematology/Oncology 06/25/19 Maryanne Tavarez PA-C [address] [place] [address] Physician Oyster Planter Hematology/Oncology 06/25/19 Thompson Bell, [address] [place] [address] Consulting HOSPICE & PALLIATIVE MEDICINE 02/03/21 Anne Tran, VIK Specialty Cheese Sprayer HOSPICE & PALLIATIVE MEDICINE 02/03/21 Rn Compliance Relationship Specialty Start Date End Date Jaimee Morales RN [address] [place] [address] Specialty Cheese Sprayer Hematology/Oncology 06/25/19 Araceli Betts MD [address] [place] [address] Physician Hematology/Oncology 06/25/19 Maryanne Tavarez [place] [address] [place] [address] Physician Oyster Planter Hematology/Oncology 06/25/19 Thompson Bell, [address] [place] [address] Consulting HOSPICE & PALLIATIVE MEDICINE 02/03/21 Anne Tran, RN Specialty Cheese Sprayer HOSPICE & PALLIATIVE MEDICINE 02/03/21 Rn Compliance Relationship Specialty Start Date End Date Jaimee Morales RN [address] [place] [address] Specialty Cheese Sprayer Hematology/Oncology 06/25/19 Araceli Betts MD [address] [place] [address] Physician Hematology/Oncology 06/25/19 Maryanne Tavarez PA-C [address] [address] Physician Oyster Planter Hematology/Oncology 06/25/19 Thompson Bell, DO [address] [place] [address] Consulting HOSPICE & PALLIATIVE MEDICINE 02/03/21 Anne Tran, VIK Specialty Cheese Sprayer HOSPICE & PALLIATIVE MEDICINE 02/03/21 Rn Compliance Relationship Specialty Start Date End Date Jaimee Morales RN [address] [place] [address] Specialty Cheese Sprayer Hematology/Oncology 06/25/19 Araceli Betts MD [address] [place] [address] Physician Hematology/Oncology 06/25/19 Maryanne Tavarez PA-C [address] [place] [address] Physician Oyster Planter Hematology/Oncology 06/25/19 Thompson Bell, DO [address] [place] [address] Consulting HOSPICE & PALLIATIVE MEDICINE 02/03/21 Anne Tran, RN Specialty Cheese Sprayer HOSPICE & PALLIATIVE MEDICINE 02/03/21 Rn Compliance Relationship Specialty Start Date End Date Jaimee Morales RN [address] [place] [address] Specialty Cheese Sprayer Hematology/Oncology 06/25/19 Araceli Betts MD [address] [place] [address] Physician Hematology/Oncology 06/25/19 Maryanne Tavarez PA-C [address] [place] [address] Physician Oyster Planter Hematology/Oncology 06/25/19 RayFloydle, [address] [place] [address] Consulting HOSPICE & PALLIATIVE MEDICINE 02/03/21 Anne Tran, RN Specialty Cheese Sprayer HOSPICE & PALLIATIVE MEDICINE 02/03/21 Rn Compliance Relationship Specialty Start Date End Date Jaimee Morales RN [address] [place] [address] Specialty Cheese Sprayer Hematology/Oncology 06/25/19 Araceli Betts MD [address] [place] [address] Physician Hematology/Oncology 06/25/19 Maryanne Tavarez PA-C [address] [place] [address] Physician Oyster Planter Hematology/Oncology 06/25/19 RayFloydle, [address] [place] [address] Consulting HOSPICE & PALLIATIVE MEDICINE 02/03/21 Anne Tran, RN Specialty Cheese Sprayer HOSPICE & PALLIATIVE MEDICINE 02/03/21 Rn Compliance Relationship Specialty Start Date End Date Jaimee Morales RN [address] [place] [address] Specialty Cheese Sprayer Hematology/Oncology 06/25/19 Araceli Betts MD [address] [place] [address] Physician Hematology/Oncology 06/25/19 Maryanne Tavarez PA-C [address] [facility] [address] [place] [place] [address] Physician Oyster Planter Hematology/Oncology 06/25/19 Thompson Bell, [address] [place] [address] Consulting HOSPICE & PALLIATIVE MEDICINE 02/03/21 Anne Tran, RN Specialty Cheese Sprayer HOSPICE & PALLIATIVE MEDICINE 02/03/21 Rn Compliance Relationship Specialty Start Date End Date Jaimee Morales RN [address] [place] [address] Specialty Cheese Sprayer Hematology/Oncology 06/25/19 Araceli Betts MD [address] [place] [address] Physician Hematology/Oncology 06/25/19 Maryanne Tavarez PA-C [address] [place] [address] Physician Oyster Planter Hematology/Oncology 06/25/19 Thompson Bell, DO [address] [place] [address] Consulting HOSPICE & PALLIATIVE MEDICINE 02/03/21 Anne Tran, RN Specialty Cheese Sprayer HOSPICE & PALLIATIVE MEDICINE 02/03/21 Rn Compliance Relationship Specialty Start Date End Date Jaimee Morales RN [address] [place] [address] Specialty Cheese Sprayer Hematology/Oncology 06/25/19 Araceli Betts MD [address] [place] [address] Physician Hematology/Oncology 06/25/19 Maryanne Tavarez PA-C [address] [place] [address] Physician Oyster Planter Hematology/Oncology 06/25/19 Floyd Bellle, DO [address] [place] [address] Consulting HOSPICE & PALLIATIVE MEDICINE 02/03/21 Anne Tran, RN Specialty Cheese Sprayer HOSPICE & PALLIATIVE MEDICINE 02/03/21 Rn Compliance Relationship Specialty Start Date End Date Jaimee Morales RN [address] [place] [address] Specialty Cheese Sprayer Hematology/Oncology 06/25/19 Araceli Betts MD [address] [place] [address] Physician Hematology/Oncology 06/25/19 Maryanne Tavarez PA-C [address] [place] [address] Physician Oyster Planter Hematology/Oncology 06/25/19 Thompson Bell, DO [address] [place] [address] Consulting HOSPICE & PALLIATIVE MEDICINE 02/03/21 Anne Tran, VIK Specialty Cheese Sprayer HOSPICE & PALLIATIVE MEDICINE 02/03/21 Rn Compliance Relationship Specialty Start Date End Date Jaimee Morales RN [address] [place] [address] Specialty Cheese Sprayer Hematology/Oncology 06/25/19 Araceli Betts MD [address] [place] [address] Physician Hematology/Oncology 06/25/19 Maryanne Tavarez PAScott [address] [place] [address] Physician Oyster Planter Hematology/Oncology 06/25/19 RayFloydle, DO [address] [place] [address] Consulting HOSPICE & PALLIATIVE MEDICINE 02/03/21 Anne Tran, VIK Specialty Cheese Sprayer HOSPICE & PALLIATIVE MEDICINE 02/03/21 Rn Compliance Relationship Specialty Start Date End Date German Davila, DO [address] [place] [address] PCP - General Emergency Medicine 02/21/23 Rn Compliance Relationship Specialty Start Date End Date Jaimee Morales RN [address] [place] [address] Specialty Cheese Sprayer Hematology/Oncology 06/25/19 Araceli Betts MD [address] [place] [address] Physician Hematology/Oncology 06/25/19 Maryanne Tavarez, CHARLIE [address] [place] [address] Physician Oyster Planter Hematology/Oncology 06/25/19 Thompson Bell, DO [address] [place] [address] Consulting HOSPICE & PALLIATIVE MEDICINE 02/03/21 Anne Tran, VIK Specialty Cheese Sprayer HOSPICE & PALLIATIVE MEDICINE 02/03/21 Rn Compliance Relationship Specialty Start Date End Date Jaimee Morales RN [address] [place] [address] Specialty Cheese Sprayer Hematology/Oncology 06/25/19 Araceli Betts MD [address] [place] [address] Physician Hematology/Oncology 06/25/19 Maryanne Tavarez, PAMalickC [address] [place] [address] Physician Oyster Planter Hematology/Oncology 06/25/19 Thompson Bell, DO [address] [place] [address] Consulting HOSPICE & PALLIATIVE MEDICINE 02/03/21 Anne Tran, RN Specialty Cheese Sprayer HOSPICE & PALLIATIVE MEDICINE 02/03/21 Rn Compliance Relationship Specialty Start Date End Date Jaimee Morales RN [address] [place] [address] Specialty Cheese Sprayer Hematology/Oncology 06/25/19 Araceli Betts MD [address] [place] [address] Physician Hematology/Oncology 06/25/19 Maryanne Tavarez PA-C [address] [place] [address] Physician Oyster Planter Hematology/Oncology 06/25/19 Thompson Bell, DO [address] [place] [address] Consulting HOSPICE & PALLIATIVE MEDICINE 02/03/21 Anne Tran, RN Specialty Cheese Sprayer HOSPICE & PALLIATIVE MEDICINE 02/03/21 Rn Compliance Relationship Specialty Start Date End Date Jaimee Morales RN [address] [place] [address] Specialty Cheese Sprayer Hematology/Oncology 06/25/19 Araceli Betts MD [address] [place] [address] Physician Hematology/Oncology 06/25/19 Maryanne Tavraez PA-C [address] [place] [address] Physician Oyster Planter Hematology/Oncology 06/25/19 Thompson Bell, DO [address] [place] [address] Consulting HOSPICE & PALLIATIVE MEDICINE 02/03/21 Anne Tran, RN Specialty Cheese Sprayer HOSPICE & PALLIATIVE MEDICINE 02/03/21 Rn Compliance Relationship Specialty Start Date End Date Jaimee Morales RN [address] [place] [address] Specialty Cheese Sprayer Hematology/Oncology 06/25/19 Araceli Betts MD [address] [place] [address] Physician Hematology/Oncology 06/25/19 Maryanne Tavarez, PAMalickC [address] [place] [address] Physician Oyster Planter Hematology/Oncology 06/25/19 Thompson Bell, DO [address] [place] [address] Consulting HOSPICE & PALLIATIVE MEDICINE 02/03/21 Anne Tran, RN Specialty Cheese Sprayer HOSPICE & PALLIATIVE MEDICINE 02/03/21 Rn Compliance Relationship Specialty Start Date End Date Jaimee Morales RN [address] [place] [address] Specialty Cheese Sprayer Hematology/Oncology 06/25/19 Araceli Betts MD [address] [place] [address] Physician Hematology/Oncology 06/25/19 Maryanne Tavarez, PA-C [address] [place] [address] Physician Oyster Planter Hematology/Oncology 06/25/19 Thompson Bell, DO [address] [place] [address] Consulting HOSPICE & PALLIATIVE MEDICINE 02/03/21 Anne Tran, RN Specialty Cheese Sprayer HOSPICE & PALLIATIVE MEDICINE 02/03/21 Rn Compliance Relationship Specialty Start Date End Date Jaimee Morales RN [address] [place] [address] Specialty Cheese Sprayer Hematology/Oncology 06/25/19 Araceli Betts MD [address] [place] [address] Physician Hematology/Oncology 06/25/19 Maryanne Tavarez PA-C [address] [place] [address] [place] [address] Physician Oyster Planter Hematology/Oncology 06/25/19 Thompson Bell DO [address] [place], [place] [address] Consulting HOSPICE & PALLIATIVE MEDICINE 02/03/21 Anne Tran, VIK Specialty Cheese Sprayer HOSPICE & PALLIATIVE MEDICINE 02/03/21 Rn Compliance Relationship Specialty Start Date End Date German Davila DO [address] [place] [id number] PCP - General Emergency Medicine 02/21/23 Team Status: Inactive Member Role Status Dates Santos Corona DO Attending Provider Active Start : April 05, 2025 End: April 05, 2025 Rn Compliance Relationship Specialty Start Date End Date German Davila DO [address] [place] [address] PCP - General Emergency Medicine 02/21/23 Team Status: Inactive Member Role Status Dates Benji Wilkins PA-C Attending Provider Active St art: July 05, 2025 End: July 05, 2025 (unrecognized sect ion and content) No Status Records FoundNo Status Records FoundNo Status Records FoundNo Status Records FoundNo Status Records Found INFORMATION SOURCE (unrecogn ized section and content) DATE CREATED AUTHOR 02/19/2023 [facility]ul[facility] DATE CREATED AUTHOR AUTHOR'S ORGANIZ ATION 03/01/2023 [facility] Amor cooper DATE CREATED AUTHOR AUTHOR'S ORGANIZ ATION 05/10/2023 [facility] DATE CREATED AUTHOR AUTHOR'S ORGANIZ ATION 04/19/2025 [facility] DATE CREATED AUTHOR AUTHOR'S ORGANIZ ATION 07/09/2025 [facility] Ordered Prescriptions (unrec ognized section and content) [...] Huizar RN - Reason: Order parameters not met)2043 (Not Given - Provider: Peggy Mejia RN - Reason: Order parameters not met) 0735 (Not Given - Provider: Alecia Coates RN - Reason: Order parameters not met - Comment: [phone] (Not Given - Provider: Loyda Berry RN - Reason: Other - Comment: Patient off unit at IR.)171 (Not Given - Provider: Loyda Berry RN - Reason: Order parameters not met - Comment: BG [phone])2025 (Not Given - Provider: Martina Irwin RN [...] 60 0857 (Given - Provider: Katelyn Huizar RN)2043 (Given - Provider: Peggy Mejia RN) 0802 (Given - Provider: Leidy Horan)203 (Given - Provider: Martina Irwin RN) 0843 (Given - Provider: Leidy Hollins RN)2100 (Due) nicotine (NICODERM CQ) 14 MG/24HR 1 patch 1 patch, TransDERmal, Administer over 24 Hours, DAILY, First dose on Tue01/31/25 at 0900, Apply new patch to nonhairy, [...] Fluid Infusing) 0801 (Given - Provider: Leidy Horan)2040 (Not Given - Provider: Martina Irwin RN - Reason: IV Fluid Infusing) 0855 (Not Given - Provider: Lennie Vincent RN - Reason: IV Fluid Infusing)2099 (Due) tamsulosin (FLOMAX) capsule 0.4 mg 0.4 mg, Oral, DAILY, First dose on Tue01/30/25 at 0900, Until Discontinued, Do not crush or break. Give 30 minutes after a full meal to limit risk of orthostatic hypotension/falls. 0856 (Given - Provider: Katelyn Huizar RN) 0801 (Given - Provider: Leidy Horan) 0843 (Given - Provider: Leidy Hollins RN) Continuous Medication Order 02/04/2025 02/05/2025 02/06/2025 0.9 % sodium chloride infusion IntraVENous, at 125 mL/hr, CONTINUOUS, Starting on Tue01/30/25 at 0500 1553 (Rate/Dose Change - Provider: Katelyn Huizar RN) 0122 (New Bag - Provider: Peggy Mejia RN)0929 (New Bag - Provider: Loyda Berry RN)2009 (New Bag - Provider: Martina Irwin, VIK) 0418 (New Bag - Provider: Martina Irwin, VIK)1036 (Stopped - Provider: Lennie Vincent RN) PRN [...] used. 2036 (See Alternative - Provider: Martina Irwin, VIK) acetaminophen (TYLENOL) tablet 650 mg(Linked Group 1) 650 mg, Oral, EVERY 6 HOURS PRN, Starting on Tue01/30/25 at 0423, Until Discontinued, Pain Mild (1-3), allowed for higher pain score per patient request, Fever, For temp greater than 100.4 F (38 C), Maximum dose of acetaminophen is 4000 mg from all sources in 24 hours. 2036 (Given - Provider: Martina Irwin, VIK) dextrose 10 % infusion IntraVENous, at 100 [...] at 1149, Intra-op 1149 (Given - Provider: Lydia Joseph RN - [...] for injection by adding 1 mL of optimization engineer-supplied sterile diluent or sterile water for injection [...] Tue01/30/25 at 0423, Until Discontinued, Nausea, Vomiting polyethylene glycol (GLYCOLAX) [...] mL, IntraVENous, PRN, Starting on Tue01/30/25 at 422, Until Discontinued, Line Care, After every IV [...] may be documented in a n alternate sectionGoals may be documented in an alternate section FOR RECORDS PERTAINING TO PATIENTS [...] BE BASED ON THE PRIMARY CLINICAL RECORDS. [facility] [employer] [facility]. provides no warranty or guarantee of the accuracy or completeness of information in this document.
[2025-08-20 22:09] VITALS: BP 201/107; PULSE 77; TEMP 37.2; O2SAT 99; BMI 21.5
[2025-08-20 22:43] LABS: Glucose Urine UA NEGATIVE (NEGATIVE)
[2025-08-20 22:50] LABS: Cast Seen? NONE SEEN #/LPF (NONE SEEN); Crystals Seen? None Seen #/HPF (None Seen); Urine Culture Indicated YES-FRMC
--- NOTE | 2025-08-20 23:20 | ED.GENADUL1 ---
HPI HPI - General Adult General Chief complaint: Urogenital-Male Stated complaint: FEEL DEHYDRATED/ DRINKING A LOT OF WATER Time Seen by Provider: 08/20/25 23:06 Source: patient Mode of arrival: walk-in History of Present Illness HPI narrative: past history of metastatic prostate CA. states he has not been seen by his oncologist for a least a year. States his CA was treated. He believes he may be in remission but isn't sure. Also had indwelling roy that was removed a couple of weeks ago. States he did well and had no problem urinating. This past week has been wetting his clothes as the urine will leak out. Has since purchased depends. Now presents complaining of dry mouth and feeling dehydrated. No definite fever but has had chills and vomited. No diarrhea. Past left hip surgery and his left leg is shorter than the right. No complaint of respiratory symptoms Related Data Home Medications ?Medication ?Instructions ?Recorded ?Confirmed oxybutynin chloride 5 mg mg PO 08/20/25 tablet,extended release 24 hr Previous Rx's ?Medication ?Instructions ?Recorded cephalexin 500 mg capsule 500 mg PO TID 7 days #21 caps 07/05/25 Allergies Allergy/AdvReac Type Severity Reaction Status Date / Time acetaminophen (From [place]) Allergy Unknown Verified 01/29/25 23:34 hydrocodone (From [place]) Allergy Unknown Verified 01/29/25 23:34 Opioid HPI Opioid Management Most Recent Opioid Data: Last Pain Scale 8 08/20/25, 22:30 Review of Systems ROS Status of ROS 10 or more systems reviewed and unremarkable except as noted in history and below PFSH PFSH Social History Little interest or pleasure in doing things: not at all Feeling down, depressed, or hopeless: not at all Exam Constitutional Vital Signs, click to edit/add: Last Vital Signs Temp 99 F 08/20/25 22:09 Pulse 88 08/21/25 01:15 Resp 16 08/21/25 01:15 BP 153/98 H 08/21/25 01:19 Pulse Ox 96 08/21/25 01:15 O2 Del Method Room Air 08/21/25 01:15 Common normals: no apparent distress, average body habitus, oriented x3, no limitations, healthy appearing, alert and well nourished [facility] Common normals: normocephalic and head/scalp atraumatic Eye Common normals: EOMs intact bilaterally and conjunctivae normal Respiratory Common normals: normal respiratory effort, no retractions, no use of accessory muscles and clear to auscultation bilaterally Cardio Common normals: regular rate, regular rhythm, S1 normal heart sound and S2 normal heart sound GI Common normals: Normal to inspection, nondistended, normoactive bowel sounds present, soft to palpation and non-tender Extremity Other: old scar left hip. large well healed. left leg shorter than right not able to flex at left knee Neuro Common normals: oriented x3, CN's II-XII intact bilaterally, moves all extremities and no focal motor deficits Psych Appearance: grossly normal Course Vital Signs Vital signs: Vital Signs Temperature 99 F 08/20/25 22:09 Pulse Rate 77 08/20/25 22:09 Respiratory Rate 14 08/20/25 22:09 Blood Pressure 201/107 H 08/20/25 22:09 Pulse Oximetry 99 08/20/25 22:09 Oxygen Delivery Method Room Air 08/20/25 22:09 Temperature 99 F 08/20/25 22:09 Pulse Rate 88 08/21/25 01:15 Respiratory Rate 16 08/21/25 01:15 Blood Pressure 153/98 H 08/21/25 01:19 Pulse Oximetry 96 08/21/25 01:15 Oxygen Delivery Method Room Air 08/21/25 01:15 Medical Decision Making [facility] Narrative Medical decision making narrative: patient presents complaining of wetting himself as his urine leaks out. No associated back pain. Feels dehydrated. labs demonstrate CKD with GFR 18. this is significantly improved from 01/2025 . At that time his GFR was 3. His UA is positive for infection. Patient hydrated and given dose of rocephin .He is now feeling better and requesting to go home. Did offer admission but he did not feel he needed it. Has his caregiver with him. Because of his GFR prescribed decreased dose of levaquin. 500mg day 1 and then 250mg q.o.d for 7 doses. Advised of the importance of close follow up Lab Data Labs: Lab Results 08/20/25 08/21/25 Range/Units 22:35 00:22 WBC 7.3 (4.0-11.0) 10^3/uL RBC 3.59 L (4.70-6.10) 10^6/uL Hgb 9.2 L (14.0-18.0) g/dL Hct 28.4 L (42.0-54.0) % MCV 79.1 L (80.0-94.0) fL MCH 25.6 L (25.9-34.0) pg MCHC 32.4 (29.9-35.2) g/dL RDW 15.0 (11.0-15.0) % Plt Count 298 (150-450) 10^3/uL MPV 10.2 (9.5-13.5) fL Neut % (Auto) 77.0 H (43.0-75.0) % Lymph % (Auto) 11.6 L (20.5-60.0) % [place] % (Auto) 8.1 (1.7-12.0) % Eos % (Auto) 1.6 (0.9-7.0) % Baso % (Auto) 1.0 (0.2-2.0) % Neut # (Auto) 5.6 (1.4-6.5) 10^3/uL Lymph # (Auto) 0.9 L (1.2-3.8) 10^3/uL [place]eth # (Auto) 0.6 (0.3-0.8) 10^3/uL Eos # (Auto) 0.1 (0.0-0.7) 10^3/uL Baso # (Auto) 0.1 (0.0-0.1) 10^3/uL Abs Immat Gran (auto) 0.05 H (0.00-0.03) 10^3/uL Imm/Tot Granulo (auto) 0.7 H (0.0-0.5) % Sodium 137 (136-145) mmol/L Potassium 4.1 (3.5-5.1) mmol/L Chloride 103 (98-107) mmol/L Carbon Dioxide 21.2 (21.0-32.0) mmol/L Anion Gap 16.9 BUN 35.0 H (7.0-18.0) mg/dL Creatinine 3.55 H (0.70-1.30) mg/dL Est GFR ( Amer) 21 L (>=60 mL/min/1.73m^2) Est GFR (Non-Af Amer) 18 L (>=60 mL/min/1.73m^2) BUN/Creatinine Ratio 9.9 Glucose 142 H (74-106) mg/dL Lactate 1.7 (0.4-2.0) mmol/L Calcium 8.2 L (8.5-10.1) mg/dL Total Bilirubin 0.4 (0.2-1.0) mg/dL AST 25 (15-37) U/L ALT 45 (16-63) U/L Alkaline Phosphatase 173 H (46-116) U/L Troponin I High Sens 12.9 (4.0-76.1) pg/mL Total Protein 7.2 (6.4-8.2) g/dL Albumin 2.4 L (3.4-5.0) g/dL Globulin 4.8 g/dL Albumin/Globulin Ratio 0.5 Urine Color Yellow (YELLOW) Urine Clarity Clear (CLEAR) Urine pH 6.0 (5.0-9.0) Ur Specific Crescent <=1.005 A (1.005-1.025) Urine Protein Trace (NEG/TRACE) mg/dL Urine Glucose (UA) Negative (NEGATIVE) mg/dL Urine Ketones Negative (NEGATIVE) mg/dL Urine Occult Blood Small A (NEGATIVE) Urine Nitrite Positive A (NEGATIVE) Urine Bilirubin Negative (NEGATIVE) Urine Urobilinogen 0.2 (0.2-1.0) EU/dL Ur Leukocyte Esterase Large A (NEGATIVE) Urine RBC None seen (0-2) #/HPF Urine WBC 20-50 A (NONE SEEN) #/HPF Ur Squamous Epith Cells Few A (NONE/RARE) #/LPF Urine Crystals None seen (None Seen) #/HPF Urine Bacteria Moderate A (NONE SEEN) #/HPF Urine Casts None seen (NONE SEEN) #/LPF Urine Mucus None seen (NONE SEEN) Ur Culture Indicated? Yes-[facility] [place] Discharge Plan Discharge Chief Complaint: Urogenital-Male Clinical Impression: Urinary tract infection Qualifiers: Urinary tract infection type: catheter-associated UTI Indwelling urinary catheter type: indwelling urethral catheter Encounter type: initial encounter Qualified Code(s): T83.511A - Infection and inflammatory reaction due to indwelling urethral catheter, initial encounter Patient Disposition: Home, Self-Care Prescriptions / Home Meds: No Action cephalexin 500 mg capsule 500 mg PO TID 7 Days Qty: 21 0RF oxybutynin chloride 5 mg tablet extended release 24hr PO Print Language: Croatian Instructions: Urinary Tract Infection in Men (ED) Additional Instructions: follow up with your doctor in the next 2-3 days for recheck Referrals: Physician,Non-Staff, MD [Primary Care Provider] - 1 week
[2025-08-21 00:31] LABS: Hematocrit 28.4 % (42.0-54.0); Hemoglobin 9.2 g/dL (14.0-18.0); Immature Granulocytes Abs Auto 0.05 10^3/uL (0.00-0.03); Immature Granulocytes Pct Auto 0.7 % (0.0-0.5); Lymphocytes Absolute Auto 0.9 10^3/uL (1.2-3.8); Mean Corpuscular HGB Conc 32.4 g/dL (29.9-35.2); Mean Corpuscular Hemoglobin 25.6 pg (25.9-34.0); Mean Corpuscular Volume 79.1 fL (80.0-94.0); Platelet Count 298 10^3/uL (150-450); Red Blood Count 3.59 10^6/uL (4.70-6.10); White Blood Count 7.3 10^3/uL (4.0-11.0)
[2025-08-21 00:51] LABS: Lactate/Lactic Acid 1.7 mmol/L (0.4-2.0)
[2025-08-21 00:58] LABS: Alanine Aminotransferase 45 U/L (16-63); Albumin Globulin Ratio 0.5; Albumin Level 2.4 g/dL (3.4-5.0); Alkaline Phosphatase 173 U/L (46-116); Anion Gap 16.9; Aspartate Amino Transferase 25 U/L (15-37); Blood Urea Nitrogen 35.0 mg/dL (7.0-18.0); Calcium 8.2 mg/dL (8.5-10.1); Carbon Dioxide 21.2 mmol/L (21.0-32.0); Chloride 103 mmol/L (98-107); Estimated GFR (African America 21 (>=60 mL/min/1.73m^2); Estimated GFR (Non-African Ame 18 (>=60 mL/min/1.73m^2); Globulin 4.8 g/dL; Glucose 142 mg/dL (74-106); Potassium 4.1 mmol/L (3.5-5.1); Sodium 137 mmol/L (136-145); Total Protein 7.2 g/dL (6.4-8.2)
[2025-08-21 01:15] VITALS: BP 153/98; PULSE 88; O2SAT 96
[2025-08-21 01:19] VITALS: BP 153/98
== END 2025-08-21 01:41 | disposition home or self-care (01) ==
PROVIDERS: Emergency Provider Internal Medicine
DX: T83.511A Infection and inflammatory reaction due to indwelling urethral catheter, initial encounter (principal); N39.0 Urinary tract infection, site not specified; Z85.46 Personal history of malignant neoplasm of prostate; N18.9 Chronic kidney disease, unspecified
CPT/HCPCS: 36415; 80053; 81001; 83605; 84484; 85025; 87086; 87088; 87186; 96365; 99284; J0696

== ENCOUNTER 2025-09-10 19:36 | Emergency (ER) | payer MEDICARE, SELFPAY ==
[2025-09-10] VITALS (28 sets, daily range): BP systolic 123–180; BP diastolic 87–137; PULSE 86–110; TEMP 36.5–36.7; O2SAT 95–100; BMI 22.2
--- OUTSIDE RECORDS SUMMARY | 2025-09-10 20:12 | XMS_ITS | Clinical Summary ---
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 60 tablet ctive enzalutamide (XTANDI) 80 mg tablet TAKE 2 TABLETS (160 MG) BY MOUTH ONCE DAILY 60 tablet ctive aspirin, enteric coated (ECOTRIN LOW STRENGTH) 81 mg EC tablet Take 1 tablet by mouth twice daily for 14 days. 28 tablet 03/16/2023ctive ascorbic acid, vitamin C, (VITAMIN C) 500 mg tablet Take 1 tablet by mouth once daily. 30 tablet 02/16/2023ctive gabapentin (NEURONTIN) 300 mg capsule Take 2 capsules by mouth three times daily for 90 days. 180 capsule /iscontinued(Other) mirtazapine (REMERON) 15 mg tablet Take 1 tablet by mouth daily at bedtime. 30 tablet /3Discontinued pantoprazole DR (PROTONIX) 40 mg tablet Take 1 tablet by mouth once daily. 30 tablet iscontinued tamsulosin (FLOMAX) 0.4 mg Take 2 capsules by mouth daily 30 minutes after the same meal each day. 180 capsule 1103Discontinued Active Problems ProblemNoted DateDiagnosed DateSevere protein-calorie ngxydxdwbvuf65/15/2023 Nicotine tovetlifkp81/13/2023 Assessment & Plan (01/24/2023 5:07 AM EDT): Assessment: Current 1 PPD smoker PLAN: - Declined nicotine patch; reassess as indicated - Smoking cessation education Other chronic pain01/24/2023 Assessment & Plan (01/26/2023 1:45 PM EDT): [...] Consider multimodal regimen postoperatively VALERIA (acute kidney injury)01/24/2023 Assessment & Plan (01/26/2023 1:48 PM EDT): [...] I/O - Hummel in place, UOP adequate Kaicizorfrld80/13/2023 Assessment & Plan (01/26/2023 1:51 PM EDT): Assessment: K of 5.8 on 01/24, s/p insulin in D10 water, no EKG changes. Problem resolved. PLAN: - Continue to monitor Assessment & Plan (01/25/2023 9:05 AM EDT): Assessment: -K of 5.8 on 01/24, s/p insulin in D10 water -no EKG changes -improved to 4.3 PLAN: -continue to monitor Necrotizing tqqdoefmk71/12/2023 Assessment & Plan (01/26/2023 1:43 PM EDT): Assessment: OSH CT demonstrated Edema, swelling and foci of gas involving the left thigh intramuscular compartment, most significant along the vastus lateralis muscle. Findings suspicious for necrotizing fasciits. Transferred from [place] to [facility] for further surgical evaluation. Incision and [...] Unasyn - Likely stable for transfer to [facility] after surgery - NPO for surgery - 2 units of blood on hold for OR - Heparin on hold for surgery Assessment & Plan (01/25/2023 9:06 AM EDT): Assessment: OSH CT demonstrated Edema, swelling and foci of gas involving the left thigh intramuscular compartment, most significant along the vastus lateralis muscle. Findings suspicious for necrotizing fasciits. Transferred from [place] to [facility] for further surgical evaluation. Incision and [...] with rare GPCs, left hip abscess with GPCs,left hip fascia with few GPCs - Continue mIVF, ok for regular diet today per ortho - Likely stable for transfer to [facility] Assessment & Plan (01/24/2023 12:38 PM EDT): Assessment: Necrotizing fascitis of the left lower extremity after catch scratch to left posterior calf. At OSH, the patient had leukocytosis (WBC 35) lactate of 2.8. Imaging demonstrating likely gasin periarticular tissues of left hip joint, now [...] are suspicious for necrotizing fasciitis. Transferred from [place] to [facility] for further surgical evaluation Lactate 2.6 (downtrending 1.8 s/p 2L fluid resus) Received Vanco, Zosyn and Clinda PLAN: - GenSurg and Ortho consulted - Blue card OR for exploration/debridement - Continue Atbx (Vanco, Zosyn, Clinda) - VS per SICU protocol - Sepsis lactate, BCx ordered - Consider ID consult - PRN pain regimen - Continue fluid resus/mIVF Pathologic fracture of femoral neck02/24/2021reoperative tdivmtnnu05/13/2021 Prostate cancer metastatic to bone04/26/2019 Cancer Staging: Clinical:Stage IVB(cTX, cNX, pM1b) - Signed by Jonah [...] bone/skeletal and pulmonary metastases (s/p Palliative XRT 2018,??Casodex, lupron, Zometa, Taxotere x 6 cycles and [...] bone/skeletal and pulmonary metastases (s/p Palliative XRT 2018,??Casodex, lupron, Zometa, Taxotere x 6 cycles and xtandi; c/b left pathologic femoral fx, s/p Left hip hemiarthroplasty 2020) PLAN: - Assess pain levels - No acute indication for heme/onc consult - Current immunotherapy held Assessment & Plan (04/26/2019 5:13 PM EDT): Assessment: Newly discovered lung mass and lymphadenopathy in a heavy smoker, highly suspicious forlung cancer. Also has changes in bowel and bladder function and left hip and leg pain, worrisome for a metastatic lesion affecting the spinal cord or nerve roots. PLAN: ?? We have added him to the schedule for EBUS for sampling of the lymph nodes in the chest. There are no palpable supraclavicular or axillary nodes that are amenable to FNA. ?? We feel the MRI should be done as soon as possible. We will call and try to get it done tomorrow. We have told him if his symptoms get worse, he should go to the ED and tell them we have concerns about a cord lesion. Tobacco use favptjva20/13/2019 Overview (04/26/2019): Long time heavy smoker. Found [...] other counseling during this visit. Enlarged lymph nodes04/25/2019Bone damwgbuesk09/12/2019 Family History Medical HistoryRelationCommentsNo Known ProblemsFatherCancerMotherCancerSister RelationStatusCommentsFatherOtherMotherAliveSisterAlive Social History Tobacco UseTypesPacks/DayYears UsedDateSmoking Tobacco: Every RvkDklfnganhr362 Smokeless Tobacco: Former Tobacco Cessation:Ready to Q uit: Yes Alcohol UseStandard Drinks/WeekCommentsNot Currently0 (1 standard drink = 0.6 oz pure alcohol)PHQ-2AnswerDate RecordedPHQ-2 mwkat201rea Deprivation IndexAnswerDate RecordedNational Score (1-100), lower number is lower risk89 03/18/2023State Score (1-10), lower number is lower vkyj38303/18/2023ata from: https://www.neighborhoodatlas.medicine.[facility].edu/. Last address used for pxeuarmsafe[address]03/18/2023Sex and Gender InformationValueDate RecordedSex Assigned at UrmkkDoli30/24/2021 8:58 AM EDTLegal BraQeqm9104/20/2019 11:09 AM EDTGender XomtijgvXora36/24/2021 8:58 AM EDTSexual OrientationStraight 02/04/2021 8:58 AM EDT Last Filed Vital Signs Vital SignReadingTime TakenCommentsBlood Prmauyok707/7204 5:42 PM EDT Agjhp9104 5:42 PM OYQIzjxpjjoetf24 ??C (98.6 ??F)02/16/2023 5:42 PM EDT Respiratory Fqyg783002/16/2023 5:42 PM EDTOxygen Crukjooeqi886%02/16/2023 5:42 PM EDTInhaled Oxygen Concentration--Rofacv99.4 kg (194 lb 14.2 oz)02/03/2023 11:38 AM OSLZvyydd852.7 cm (5' 8 )02/03/2023 11:38 AM EDTBody Mass Index29.63 02/03/2023 11:38 AM EDT Plan of Treatment Health MaintenanceDue DateLast DoneCommentsAnxiety Tnmiirmim97/22/1981Depression Qrdzswzyb48/22/1981HIV Zwlqxvqoa13/22/1981Hepatitis C Ptvkwwtto61/22/1981 DTaP,Tdap,Td Vaccine (1 - Tdap)1982Lipid Qyaulynsp13/22/1998CT Mimotazhbzog93/22/2008Cologuard (FIT-DNA)05/05/20083454Thprcobpyig00/22/2008 Colorectal Cancer Hhtmdidph10/22/2008Fecal Occult Blood2008Sigmoidoscopy 2008Pneumococcal Vaccine: 50+ (1 of 1 - PCV)2013Shingrix Vaccine (1 of 2)2013Medicare Annual Wellness Visit09/14/2021ovid-19 Vaccine (1 - 2024- season)2025Influenza Vaccine (#1) (Patient/Parent/Guardian Counseled and Declines)Diabetes Teqwqwvyn43/11/2026 02/22/2023, 02/13/2023, 02/11/2023, Additional history existsProstate Cancer Screening Dsysyizzik46/11/48811312/25/2021, 09/17/2021, 06/02/2021, Additional history existsRSV Vaccine (1 - 1-dose 75+ series)2038 Medical Devices ImplantedTypeAreaManufacturerDevice IdentifierShelf Expiration DateModel / Serial / LotCement Simplex P Tobramycin Bone Full Dose Radiopaque Preblend Sterile - [id number] Implanted:Qty: 1 on 02/25/2021 at [facility] / PuttyLeft: Bone - Hip STRY-HOWM FDAUOOURBMO48/31/[id number] / / [id number] Simplex P Tobramycin Bone Full Dose Radiopaque Preblend Sterile - [id number] Implanted:Qty: 1 on 02/25/2021 at [facility] / PuttyLeft: Bone - Hip STRY-HOWM AHDXZIZYRRD46/31/[id number] / / [id number] Lfit 26mm 0 Cocr Femoral C Taper Hip - [id number] [facility] - Hip STRY-HOWM GZUCHJFQUXY59/03/[id number] / / [id number] Omnifit Fabián 8.9mm 132d 5 35mm Offset Cocr 110mm 30mm Femoral Cemented - [id number] Implanted:Qty: 1 on 02/25/[address] [facility] HipLeft: Bone - Hip STRY-HOWM CXHVGJVWQBR16/22/[id number] / / [id number] Medium [place] Cement Disposable Decorator Lighting Fixtures Distal - [id number] Implanted:Qty: 1 on 02/25/[address] [facility] KneeLeft: Bone - Hip STRY-HOW AJBZPRIEZJX25/27/[id number] / / [id number] Uhr 52mm 26mm [place] Cocr Uhmwpe Bipolar Hip - [id number] Implanted:Qty: [facility] [facility] - [facility]STR[facility]-HOW BUWTLYDIZKD63/25/[id number] / / [id number] Accolade 9mm [place] Femoral Cemented Hip - [id number] Implanted:Qty: 1 on 02/25/[address] [facility] BoneLeft: Bone - Hip STRY-HOW PNZPZKFVFML54/08/[id number] / / [id number] Procedures Procedure NamePriorityDate/TimeAssociated DiagnosisCommentsCOMPREHENSIVE METABOLIC PCIEMDdizahv52/11/2023 1:30 PM EDT PSA PNXDATXQGPDzncqin22/11/2022 8:48 AM EST Prostate cancer metastatic to bone (HCC) from Last 3 Months or Most Recently Relevant to Health Maintenance Results * COMP METABOLIC PANEL (02/22/2023 1:30 PM EDT)ComponentValueRef RangeTest MethodAnalysis TimePerformed AtPathologist SignatureCreatinine0.940.7 - 1.2 MG/DLOTHER LABAlkaline Hgyhpfouvyx42587 - 129OTHER OEUWZC056 - 40OTHER LABALT 205 - 41OTHER LABSpecimen (Source)Anatomical Location / LateralityCollection Method / VolumeCollection TimeReceived TimeBloodBLOOD SPECIMEN / Unknown Narrative Resulting Agency Comment [facility] [address] [place] [address] Authorizing ProviderResult TypeResult StatusCcf ProviderLABORATORYFinal Result Performing OrganizationAddressCity/State/ZIP CodePhone Number OTHER LAB * PSA/PROSTSPECAG DIAG (12/25/2021 8:48 AM EST)ComponentValueRef RangeTest MethodAnalysis TimePerformed AtPathologist SignaturePSA<0.02<2.60 ng/mL 12/26/2021 2:06 PM ESTOhiohealth O'Bleness Hospital LaboratoriesComment: Total PSA test methodology used is the electrochemiluminescence immunoassay by [employer]. Total PSA values by differing methodologies cannot be interchanged. Specimen (Source)Anatomical Location / LateralityCollection Method / Volume Collection TimeReceived TimeBloodOTHER / Ijbwroy5912/25/2021 8:48 AM EST12/25/2021 8:49 AM EST Narrative Authorizing ProviderResult TypeResult StatusMineugenie Tavarez PA-CLABORATORYFinal ResultPerforming OrganizationAddressCity/State/ZIP CodePhone Number [facility] [address] [facility] [place] [address] [facility] [address] [place] [address] from Last 3 Months or Most Recently Relevant to Health Maintenance Insurance Advance Directives * Full Code (Latest Code Status on File) Date ActivatedDate InactivatedComments01/24/2023 5:29 AM02/17/2023 1:15 AMQuestion AnswerCommentsFull Code Order Discussed With:* Patient Surrogate Decision Maker Name:* Mother Malick tian * Full Code Date ActivatedDate InactivatedComments01/24/2023 5:22 AM01/24/2023 5:29 AMQuestion AnswerCommentsFull Code Order Discussed With:* Patient Surrogate Decision Maker Name:* Libia Watters - significant other * Full Code Date ActivatedDate InactivatedComments01/24/2023 5:18 AM01/24/2023 5:22 AMQuestion AnswerCommentsFull Code Order Discussed With:* Patient Surrogate Decision Maker Name:* Rosalva watkins * Full Code Date ActivatedDate InactivatedComments02/24/2021 12:26 AM02/26/2021 10:11 PM QuestionAnswerCommentsFull Code Order Discussed With:* Discussion Not Medically Appropriate Care Teams Team MemberRelationshipSpecialtyStart DateEnd Date Jonah Betts MD [address] [place] [address] PhysicianHematology/Oncology06/25/19 Maryanne Tavarez, PA-C [address] [place] [address] Physician AssistantHematology/Oncology06/25/19 Thompson Bell DO [address] [place] [address] ConsultingHospice & Palliative Medicine02/03/21 Anne Tran, VIK Specialty Care CoordinatorHospice & Palliative Medicine02/03/21
--- OUTSIDE RECORDS SUMMARY | 2025-09-10 20:12 | XMS_ITS | CCD ---
Author Organization [facility] Care Team Providers Care [employer] Name Role Phone Jaimee Morales RN Unavailable Jonah Betts MD Unavailable Maryanne Tavarez PA-C Unavailable [phone] Ray DO, Thompson Unavailable Anne Tran RN Unavailable Unavailable MERARI MARK Attending Unavailable ROSE MARIE, DR GÓMEZ Primary Care Unavailable MELVIN BRIONES Consulting UnavailMERARI Gonzales Admitting Unavailable LOLA Sheehan, DR HOYT Consulting Unavailable MICHELLE STROUD Consulting Unavailable JONAH BETTS Admitting Unavailable ROSE MARIE, DR GÓMEZ Primary Care Unavailable JONAH BETTS Attending Unavailable Evelina Davila DO Primary Care Provider Jaimee Morales RN Unavailable [phone] Jonah Betts MD Unavailable [phone] Maryanne Tavarez PA-C Unavailable Ray DO, Thompson Unavailable Anne Tran RN Unavailable Unavailable EVELINA DAVILA Primary Care Unavailable TRINIDAD BROWN Referring Unavailabl e EVELINA DAVILA Primary Care Unavailable GABY PARKER Referring Unavailable EVELINA DAVILA Primary Care Unavailable BACKDANAY Referring Unavailable BACKDANAY Attending Unavailable BACK DANAY Admitting Unavailable Ray DO, Thompson Unavailable RYDER LARA Attending Unavailable RYDER LARA Admitting Unavailable EVELINA DAVILA Referring Unavailable YRIS SPICER Referring UnavailYRIS Preston Attending UnavailIMER Estevez Attending Unavailable TOMÁS GARRETT Referring Unavailable Hay DO, Evelina Pratik Primary Care Provider Santos Corona DO Attending Provider RYDER LEW JR Admitting Unavailable RYDER LEW JR Attending Unavailable EVELINA DAVILA Primary Care Unavailable JOSE G MCDONOUGH Attending Unavailable EVELINA DAVILA Primary Care Unavailable NAINA PUCKETT Referring Unavailable RHYS LEIGH Admitting Unavailable RICO FRANCE Consulting Unavailable Benji Wilkins PA-C Attending Provider Mike Multani MD Attending Provider Santos Corona Admitting Unavailable Santos Corona Attending Unavailable Benji Wilkins Admitting Unavailable Benji Wilkins Attending Unavailable Mike Multani Admitting Unavailable Mike Multani Attending Unavailable Allergies Allergy ClassificationReported Allergen(s)Allergy TypeDate of OnsetReaction(s) Facility (20 sources)Acetaminophen / HYDROcodone; Translations: [HYDROCODONE-ACETAMINOPHEN]Drug [id number] [facility] (1 source)Acetaminophen / HYDROcodoneDrug AllergyParkview Health Repository Medications Current Medications MedicationDrug Class(es)DatesSig (Normalized)Sig (Original)Acetaminophen (4 sources)Start: 43-47-0812qnofoenpgqilk (TYLENOL) tablet 650 mgStart: 02-16-2023 End: 23-08-9881cibl 2 tablets by mouth every eight hours as neededacetaminophen (TYLENOL EXTRA STRENGTH) 500 mg tablet Take 2 tablets by mouth every 8 hours as needed for pain or fever (specify) for up to 10 days. 60 tablet 0 02/16/2023 02/26/2023 ActiveComment on above:Take 2 tablets by mouth every 8 hours as needed for pain or fever (specify) for up to 10 days.aspirin 81 mg delayed release oral tablet (10 sources)Platelet Aggregation Inhibitor, Nonsteroidal Anti-inflammatory Drug Start: 03-16-2023 End: 77-33-5858lgyi 1 tablet by mouth twice dailyaspirin, enteric coated (ECOTRIN LOW STRENGTH) 81 mg EC tablet Take 1 tablet by mouth twice daily for 14 days. 28 tablet 0 03/16/2023 03/30/2023 ActiveComment on above:Take 1 tablet by mouth twice daily for 14 days.calcium chloride 0.0014 meq/ml / potassium chloride 0.004 meq/ml / sodium chloride 0.103 meq/ml / sodium lactate 0.028 meq/ml injectable solution (1 source)Start: 11-53-8390QobstMRLvvf, at 125 mL/hr, CONTINUOUS, Starting on Tue04/12/25 at 1115, Pre-op (day of surgery)doxycycline hyclate 100 mg oral tablet (1 source)Tetracycline-class DrugStart: 04-12-2025 End: 23-33-7654mhzb 1 tablet by mouth twice dailydoxycycline hyclate (VIBRA- TABS) 100 MG tablet Take 1 tablet by mouth 2 times daily for 3 days 6 tablet 04/12/2025 04/15/2025 Activeglucagon (rdna) 1 mg injection (1 source)Antihypoglycemic AgentStart: mg, SubCUTAneous, PRN, Starting on Tue01/30/25 at 0612, Until Discontinued, Low blood sugar, Blood glucose LESS THAN 70 mg/dL and patient NOT ALERT or NPO and does not have IV access., After administration, attempt intravenous access and start dextrose 10% at 100 mL/hr. Repeat blood glucose in 15minutes x 2 and notify provider. Reconstitute powder for injection by adding 1 mL of tool storage attendant-supplied sterile diluent or sterile water for injection to a vial containing 1 mg of the drug, to provide solutions containing 1 mg/mL. Shake vial gently to dissolve.1 ml heparin sodium, porcine 5000 unt/ml prefilled syringe (5 sources)Unfractionated Heparin, Anti-coagulantStart: 76-49-4451olbnku 1 dose by subcutaneous injection three times daily5,000 Units, SubCUTAneous, EVERY 8 HOURS SCHEDULED (3 times per day), First dose on Tue02/03/25 at 1400, Until Discontinued, On hold since Tue02/04/2025 at 0917 until manually unheldStart: ,600 Units, IntraCATHeter, PRN, Starting on Tue01/30/25 at 1024, Until Discontinued, Line Care, For installation into each catheter limb Venous 1600 units To be given in DialysisStart: ,900 Units, IntraCATHeter, PRN, Starting on Tue01/30/25 at 0848, Until Discontinued, Line Care, For installation into each catheter limb Arterial 1900 units To be given in Dialysis Start: 01-30-2025 End: ,600 Units, Intercatheter, ONCE, 1 dose, On Tue01/30/25 at 0730 Start: 01-30-2025 End: ,900 Units, Intercatheter, ONCE, 1 dose, On Tue01/30/25 at 0730 ketorolac tromethamine 10 mg oral tablet (1 source)Nonsteroidal Anti-inflammatory Drug, Cyclooxygenase InhibitorStart: 30-69-2204mauc 1 tablet by mouth every six hours as needed for painketorolac (TORADOL) 10 MG tablet Take 1 tablet by mouth every 6 hours as needed for Pain 15 tablet 04/12/2025 Activelabetalol (NORMODYNE;TRANDATE) injection 10 mg (1 source)Start: 35-65-2733qrjluevqe (NORMODYNE;TRANDATE) injection 10 mg lidocaine hydrochloride 0.02 mg/mg topical gel (1 source)Antiarrhythmic, Amide Local AnestheticStart: 76-14-4291Fjtiufm, PRN, Pain, Starting on Kaitlin 01/31/25 at 293288 ml magnesium sulfate 40 mg/ml injection (1 source)Start: ,000 mg, IntraVENous, at 25 mL/hr, Administer over [...] use in Patients with CrCl less than 30mL/minnaloxone 0.4 mg in 10 mL sodium chloride syringe (1 source)Start: 59-32-6040PvamaSWApev, PRN, Opioid Reversal, Starting on Tue04/12/25 at 1215, PRN if respiratory rate is lessthan 6/min and patient is difficult to arouse [...] as administered previously). Concentration 0.04 mg/mL, PACU only24 hr nicotine 0.583 mg/hr transdermal system (1 source)Cholinergic Nicotinic AgonistStart: 76-76-6238oches 1 dose transdermal route once daily at bedtime1 patch, TransDERmal, Administer over 24 Hours, DAILY, First dose on Kaitlin 01/31/25 at 0900, Apply newpatch to nonhairy, clean, dry skin on the upper body or upper outer arm. Rotate patch sites. Notifypharmacy if patient or provider prefers patch to be removed at bedtime and replaced in the morning.Hazardous Medication -- Refer to facility policy for handling and disposal.ondansetron (ZOFRAN-ODT) disintegrating tablet 4 mg (1 source)Start: 43-80-6544kpkpzxrmsom (ZOFRAN-ODT) disintegrating tablet 4 mg24 hr oxybutynin chloride 5 mg extended release oral tablet (1 source)Cholinergic Muscarinic AntagonistStart: 04-12-2025 End: 54-04-7316eeia 1 tablet by mouth once dailyoxyBUTYnin (DITROPAN XL) 5 MG extended release tablet Take 1 tablet by mouth daily for 14 days 14 tablet 04/12/2025 04/26/2025 ActiveoxyCODONE hydrochloride 5 mg oral tablet (9 sources)Opioid AgonistStart: 02-16-2023 End: 54-95-4670ajas 1 tablet by mouth every six hours as needed for pain oxyCODONE IR (ROXICODONE) 5 mg immediate release tablet Indications: S/P flap graft Take 1 tablet by mouth every 6 hours as needed for pain for up to 7 days. for pain. 28 tablet 0 03/04/2023 03/11/2023 ActiveComment on above:Take 1-2 tablets by mouth every 6 hours as needed for pain for up to 7 days. for pain. Take 1 tablet by mouth every 6 hours as needed for pain for up to 7 days. for pain. Do not start before February 23, 2023.Take 1 tablet by mouth every 6 hours as needed for pain for up to 7 days. for pain.phenazopyridine hydrochloride 100 mg oral tablet (1 source)Start: 04-12-2025 End: 33-09-1061xgal 1 tablet by mouth three times daily as needed for pain phenazopyridine (PYRIDIUM) 100 MG tablet Take 1 tablet by mouth 3 times daily as needed for Pain 15tablet 04/12/2025 04/17/2025 ActivePotassium Chloride (1 source)Start: 68-25-0656sbhzxldao chloride 20 mEq/50 mL IVPB (Central Line)5 ml sodium chloride 9 mg/ml injection (11 sources)Start: -40 mL, IntraVENous, EVERY 12 HOURS SCHEDULED (2 times per day), First dose on Tue04/12/25 at 2100, Until Discontinued, For Line Patency: Peripheral IV = 5 mL; Midline or Central Line = 10 mL/lumen.If following IV push medication, administer flush at same rate as the IV push. Flush volume is determined by type of infusion therapy being given. For non- viscous solutions use: Peripheral IV = 5 mL Midline or Central Line = 10 mL/lumen For viscous solutions (i.e. blood components, parenteral nutrition, contrast media, or after obtaining blood sample) use: Peripheral IV = 10 mL Midline or CentralLine = 20 mL/lumen, PACU onlyStart: 44-83-6748VhdgdNHYbxn, at 125 mL/hr, CONTINUOUS, Starting on Tue04/12/25 at 1115, Pre-op (day of surgery) Start: 91-01-3418ffop 20 mL intravenously every hourIntraVENous, at 5-250 mL/hr, PRN, if patient receiving [...] less into rate field of order., PACU onlyStart: -40 mL, IntraVENous, EVERY 12 HOURS SCHEDULED (2 times per day), First dose on Tue04/12/25 at 1115, Until Discontinued, For Line Patency: Peripheral IV = 5 mL; Midline or Central Line = 10 mL/lumen.If following IV push medication, administer flush at same rate as the IV push. Flush volume is determined by type of infusion therapy being given. For non-viscous solutions use: Peripheral IV = 5 mL Midline or Central Line = 10 mL/lumen For viscous solutions (i.e. blood components, parenteral nutrition, contrast media, or after obtaining blood sample) use: Peripheral IV = 10 mL Midline or CentralLine = 20 mL/lumen, Pre-op (day of surgery)Start: - 40 mL, IntraVENous, PRN, Starting on Tue04/12/25 at [...] For viscous solutions (i.e. blood components, parenteral nutrition,contrast media, or after obtaining blood sample) use: Peripheral IV = 10 mL Midline or Central Line= 20 mL/lumen, PACU onlyStart: -40 mL, IntraVENous, EVERY 12 HOURS SCHEDULED (2 times per day), First dose on Tue01/30/25 at 0900, Until Discontinued, For Line Patency: Peripheral IV = 5 mL; Midline or Central Line = 10 mL/lumen.If following IV push medication, administer flush at same rate as the IV push. Flush volume is deter mined by type of infusion therapy being given. For non-viscous solutions use: Peripheral IV = 5 mL Midline or Central Line = 10 mL/lumen For viscous solutions (i.e. blood components, parenteral nutrition, contrast media, or after obtaining blood sample) use: Peripheral IV = 10 mL Midline or CentralLine = 20 mL/lumenStart: 12-54-4392LlxxlPEZxau, at 125 mL/hr, CONTINUOUS, Starting on Tue01/30/25 at 0500Start: 15-56-6446XcvgjVTOxbj, at 5-250 mL/hr, PRN, if patient receiving piggyback infusions and maintenance fluids are not ordered, Starting on Tue01/30/25 at 0423, For piggyback infusion, administer at same rate as p iggyback for a total of 25 mL. Enter 25 mL into dose field and piggyback rate into rate field of order. If piggyback is infusing at a rate less than 100 mL/hr, enter 25 mL into dose field and 100 mL/hr into rate field of order.Start: -40 mL, IntraVENous, PRN, Starting on Tue01/30/25 at [...] For viscous solutions (i.e. blood components, parenteral nutrition,contrast media, or after obtaining blood sample) use: Peripheral IV = 10 mL Midline or Central Line= 20 mL/lumentraZODone hydrochloride 50 mg oral tablet (4 sources)Serotonin Reuptake InhibitorStart: 02-16-2022 End: 94-95-6240oodc 2 tablets by mouth once daily at bedtimetraZODone (DESYREL) 50 mg tablet Take 2 tablets by mouth daily at bedtime. 60 tablet 0 02/16/2022 ActiveComment on above:Take 2 tablets by mouth daily at bedtime. Completed/Discontinued Medications MedicationDrug Class(es)DatesSig (Normalized)Sig (Original)ascorbic acid 500 mg oral tablet (10 sources)Vitamin CStart: 02-16-2023 End: 13-57-4676qxfi 1 tablet by mouth once dailyascorbic acid, vitamin C, (VITAMIN C) 500 mg tablet Take 1 tablet by mouth once daily. 30 tablet 0 0 02/16/2023 ActiveComment on above:Take 1 tablet by mouth once daily.baclofen 10 mg oral tablet (9 sources)gamma-Aminobutyric Acid-ergic AgonistStart: 02-16-2023 End: 64-16-7972awzv 1 tablet by mouth three times dailybaclofen (LIORESAL) 10 mg tablet Take 1 tablet by mouth three times daily. 90 tablet 0 02/16/2023 ExpiredComment on above:Take 1 tablet by mouth three times daily.100 ml calcium gluconate 20 mg/ml injection (1 source)Start: 01-30-2025 End: ,000 mg, IntraVENous, at 50 mL/hr, Administer over 120 Minutes, ONCE, On Tue01/30/25 at 0615, For 1 dosecefepime (MAXIPIME) 1,000 mg in sodium chloride 0.9 % 50 mL IVPB (addEASE) (1 source)Start: 01-30-2025 End: ,000 mg, IntraVENous, at 12.5 mL/hr, Administer over 240 Minutes, EVERY 24 HOURS, First dose on Tue01/30/25 at 0730, For 8 doses, Use 20mm (GREEN) addEASE Adapter Prep Instructions: Attach medication vial to one 20mm (GREEN) addEASE adapter. Michael fluid bag with adapter, mix, and administer per order.darolutamide 300 mg oral tablet (1 source)Start: 47-98-0119ulwq 2 tablets by mouth at bedtimeDarolutamide (NUBEQA) 300 MG TABS Indications: Prostate cancer metastatic to bone (HCC) Take 600 mgby mouth in the morning and at bedtime Take with food. 120 tablet 11 02/22/2025 Suspendeddegarelix 120 mg injection (1 source)Start: 02-01-2025 End: 04-93-8684idvsju 1 dose by subcutaneous injection taea857 mg, SubCUTAneous, ONCE, 1 dose, On Tue02/01/25 at 1700, Hazardous Medication -- Refer to facility policy for handling and disposal.diclofenac sodium 75 mg delayed release oral tablet (20 sources)Nonsteroidal Anti-inflammatory DrugStart: 01-11-2022 End: 53-99-4214fwfy 1 tablet by mouth twice dailydiclofenac, EC, (VOLTAREN) 75 mg EC tablet Take 1 tablet by mouth twice daily. 60 tablet 1 02/15/2022 Active Comment on above:Take 1 tablet by mouth twice daily.docusate sodium 100 mg oral capsule (8 sources)Start: 02-16-2023 End: 66-80-2516etkk 1 capsule by mouth twice dailydocusate sodium (COLACE) 100 mg capsule Take 1 capsule by mouth twice daily for 20 days. 40 capsule0 02/16/2023 03/08/2023 ExpiredComment on above:Take 1 capsule by mouth twice daily for 20 days.0.4 ml enoxaparin sodium 100 mg/ml prefilled syringe (9 sources)Low Molecular Weight HeparinStart: 02-17-2023 End: 07-53-4263ahjbzx 0.4 mL by subcutaneous injection once dailyenoxaparin (LOVENOX) 40 mg/0.4 mL Inject 0.4 mL subcutaneously once daily for 27 days. 10.8 mL 0 02/17/2023 03/16/2023 ExpiredComment on above:Inject 0.4 mL subcutaneously once daily for 27 days.enzalutamide 80 mg oral tablet (20 sources)Androgen Receptor InhibitorStart: 11-12-2021 End: 28-89-5322iuwq 2 tablets by mouth once dailyenzalutamide (XTANDI) 80 mg tablet TAKE 2 TABLETS (160 MG) BY MOUTH ONCE DAILY 60 tablet 2 02/12/2023 Active Comment on above:Take 2 tablets (160 mg) by mouth once daily.TAKE 2 TABLETS (160 MG) BY MOUTH ONCE DAILY2 ml fentaNYL 0.05 mg/ml injection (6 sources)Opioid AgonistStart: 02-04-2025 End: 70-98-9753NFK, Starting on Tue02/05/25 at 1025, Until Tue02/05/25 at 1025, Intra-opStart: 01-30-2025 End: 30-15-0299mlle 1 dose by mouth every hour50 mcg, IntraVENous, ONCE, 1 dose, On Tue01/30/25 at 0615, If oral and IV narcotics ordered, use oral first and only use IV if oral is ineffective or cannot take oral. Do Not give oral and IV within 1 hour of each other unless specifically ordered.ferrous sulfate 325 mg oral tablet (9 sources)Start: 02-16-2023 End: 24-81-8107lewt 1 tablet by mouth twice dailyferrous sulfate (IRON) 325 mg (65 mg iron) tablet Take 1 tablet by mouth twice daily. 60 tablet 0 02/16/2023 03/18/2023 ExpiredComment on above:Take 1 tablet by mouth twice daily.gabapentin 300 mg oral capsule (20 sources)Anti-epileptic AgentStart: 05-27-2022 End: 20-12-7504whwv 2 capsules by mouth three times dailygabapentin (NEURONTIN) 300 mg capsule Take 2 capsules by mouth three times daily for 90 days. 180 ca psule 2 05/27/2022 05/04/2023 Discontinued (Other)Start: 01-25-2022 End: 31-06-0354mvkt 1 tablet by mouth three times dailygabapentin (NEURONTIN) 600 mg tablet Take 1 tablet by mouth three times daily for 90 days. 90 tablet 2 01/25/2022 05/27/2022 DiscontinuedComment on above:Take 1 tablet by mouth three times daily for 90 days.Take 2 capsules by mouth three times daily for 90 days. Glucose (4 sources)Start: 01-30-2025 End: g, IntraVENous, ONCE, 1 dose, On Tue01/30/25 at 0615Start: 25-70-7488BlehlWUQphy, at 100 mL/hr, CONTINUOUS PRN, if blood [...] mg/dL after 60 minutes, discontinue dextrose 10% infusion.Start: 88-95-3621svdcsyws bolus 10% 125 mLStart: g (4 tablet), Oral, PRN, Starting on Tue01/30/25 at 0612, Until Discontinued, Low blood sugar, If blood glucose is LESS THAN 70 mg/dL and patient is alert and tolerating oral. Give 4 tablets (16g)Repeat blood glucose in 15 minutes. If blood glucose is LESS THAN 70 mg/dL, repeat treatment and rec heck blood glucose in 15 minutes x 2. If blood glucose remains LESS THAN 70 mg/dL, notify provider.1 ml HYDROmorphone hydrochloride 1 mg/ml cartridge (4 sources)Opioid AgonistStart: .5 mg, IntraVENous, EVERY 5 MIN PRN, 2 doses, Starting on Tue04/12/25 at 1215, Until Discontinued,Pain Severe (7-10), For Phase I. If Phase II oral narcotics have been administered in the last 60 minutes, do not administer IV narcotics unless specifically approved by provider., PACU onlyStart: .3 mg, IntraVENous, EVERY 5 MIN PRN, 2 doses, Starting on Tue04/12/25 at 1215, Until Discontinued,Pain Moderate (4-6), allowed for higher pain score per patient request, For Phase I. If Phase II oral narcotics have been administered in the last 60 minutes, do not administer IV narcotics unless specifically approved by provider., PACU onlyStart: mg, IntraVENous, ONCE PRN, Starting on Tue01/30/25 at 0654, Until Discontinued, Second line for procedurehyoscyamine sulfate 0.125 mg sublingual tablet (1 source)Start: 18-67-6594xxnc 0.125 mg under the tongue every four hours as needed0.125 mg, SubLINGual, EVERY 4 HOURS PRN, Starting on Tue01/30/25 at 1347, Until Discontinued, Crampinginsulin lispro 100 unt/ml injectable solution (1 source)Insulin AnalogStart: -4 Units, SubCUTAneous, 4 TIMES DAILY BEFORE MEALS & NIGHTLY, First dose on Tue02/01/25 at 2215, Until Discontinued, Corrective Low Dose Algorithm Glucose: Dose: 70-179 No Insulin 180-249 1 U nit 250-299 2 Units 300-349 3 Units Over 349 4 Units and notify physician Administer as soon as possible within 60 minutes of last blood glucose check insulin, regular, human 100 unt/ml injectable solution (1 source)InsulinStart: 01-30-2025 End: 94-54-415140 Units, IntraVENous, ONCE, 1 dose, On Tue01/30/25 at 0630 iohexol (OMNIPAQUE 240) IV/PO solution 50 mL (2 sources)Start: 02-05-2025 End: 10-68-871694 mL, Other, IMG ONCE PRN, 1 dose, Starting on Tue02/05/25 at 1026, Until Tue02/05/25 at 1027, OtherStart: 02-04-2025 End: 26-11-4673tmsu 1 dose by mouth once50 mL, Oral, IMG ONCE PRN, 1 dose, Starting on Tue02/04/25 at 1224, Until Tue02/04/25 at 1225, Othermeloxicam 15 mg oral tablet (5 sources)Nonsteroidal Anti-inflammatory DrugStart: 02-16-2023 End: 44-01-0265pngd 1 tablet by mouth once dailymeloxicam (MOBIC) 15 mg tablet Take 1 tablet by mouth once daily for 15 days. 15 tablet 0 02/16/2023 03/03/2023 ExpiredComment on above:Take 1 tablet by mouth once daily for 15 days. methocarbamol 750 mg oral tablet (1 source)Muscle RelaxantStart: 01-30-2025 End: 74-48-8379178 mg, Oral, 4 TIMES DAILY, 4 doses, First dose (after last modification) on Tue01/30/25 at 0630, Last dose on Tue01/30/25 at 2200metoprolol tartrate 25 mg oral tablet (1 source)beta-Adrenergic BlockerStart: 40-45-377519.5 mg, Oral, 2 TIMES DAILY, First dose on Tue02/03/25 at 1000, Until Discontinued, Hold for systolic blood pressure less than 100, heart rate less than 60mirtazapine 15 mg oral tablet (20 sources)Start: 01-13-2022 End: 72-30-6760hcha 1 tablet by mouth once daily at bedtimemirtazapine (REMERON) 15 mg tablet Take 1 tablet by mouth daily at bedtime. 30 tablet 0 05/27/2022 0 05/04/2023 DiscontinuedComment on above:Take 1 tablet by mouth daily at bedtime. naloxone hydrochloride 40 mg/ml nasal spray (20 sources)Opioid AntagonistStart: 01-08-2021 End: 99-86-1416jrqzcznm 4 mg/actuation nasal spray (NARCAN) Use 1 spray in one nostril as needed for overdose. Mayrepeat every 2 to 3 min in alternating nostrils until medical assistance is available 4 Each 0 05/27/2022 05/04/2023 DiscontinuedComment on above:Use 1 spray in one nostril as needed for overdose. May repeat every 2 to 3 min in alternating nostrils until medical assistance is availablepantoprazole 40 mg delayed release oral tablet (20 sources)Proton Pump InhibitorStart: 01-11-2022 End: 26-90-2678balj 1 tablet by mouth once dailypantoprazole DR (PROTONIX) 40 mg tablet Take 1 tablet by mouth once daily. 30 tablet 1 05/27/2022 05/04/2023 DiscontinuedComment on above:Take 1 tablet by mouth once daily.polyethylene glycol 3350 31207 mg powder for oral solution (1 source)Osmotic LaxativeStart: 80-06-337917 g, Oral, DAILY PRN, Starting on Tue01/30/25 at 0423, Until Discontinued, Constipation, First line therapy for constipationprochlorperazine 5 mg/ml injectable solution (20 sources)PhenothiazineStart: mg, IntraVENous, ONCE PRN, 1 dose, Starting on Tue04/12/25 at 1215, Until Discontinued, Nausea, Initial antiemetic therapy., PACU onlyStart: 02-15-2022 End: 23-67-5283yceb 1 tablet by mouth every six hours as neededprochlorperazine (COMPAZINE) 10 mg tablet Take 1 tablet by mouth every 6 hours as needed. 30 tablet2 05/27/2022 05/04/2023 DiscontinuedComment on above:Take 1 tablet by mouth every 6 hours as needed.relugolix (ORGOVYX) 120 MG chemo tablet (1 source)Start: 30-93-7630rbut 1 tablet by mouth once dailyrelugolix (ORGOVYX) 120 MG chemo tablet Indications: Prostate cancer metastatic to bone (HCC) Take 1 tablet by mouth daily 30 tablet 11 02/22/2025 Corgkydqf69 ml sodium bicarbonate 84 mg/ml injection (2 sources)Start: 01-30-2025 End: 26-44-806997 mEq, IntraVENous, ONCE, 1 dose, On Tue01/30/25 at 0715 tamsulosin hydrochloride 0.4 mg oral capsule (20 sources)alpha-Adrenergic BlockerStart: 02-07-2025 End: 86-52-2009xzdp 1 capsule by mouth once dailytamsulosin (FLOMAX) 0.4 MG capsule Take 1 capsule by mouth daily 30 capsule 02/07/2025 SuspendedStart: 14-35-9137ijfc 1 capsule by mouth once dailytamsulosin (FLOMAX) 0.4 MG capsule Take 1 capsule by mouth daily 30 capsule 02/07/2025 ActiveStart: 81-15-9171zzzn 0.4 mg by mouth once daily at mealtime0.4 mg, Oral, DAILY, First dose on Tue01/30/25 at 0900, Until Discontinued, Do not crush or break. Give 30 minutes after a full meal to limit risk of orthostatic hypotension/falls.Start: 01-15-2022 End: 33-90-2732krbttqeqpa (FLOMAX) 0.4 mg Take 2 capsules by mouth daily 30 minutes after the same meal each day. 180 capsule 11 05/27/2022 05/04/2023 DiscontinuedComment on above:Take 2 capsules by mouth daily 30 minutes after the same meal each day. Problems Active Problems Problem ClassificationProblemDateDocumented DateEpisodic/ChronicAcute and unspecified renal failure (20 sources)Acute injury of kidney; Translations: [Acute kidney failure, unspecified]Onset: 241905-91-2171XntrmrlqEiuevxwxq infection; unspecified site (2 sources)Streptococcus, group A, as the cause of diseases classified elsewhere; Translations: [Streptococcus, group A, as the cause of diseases classified elsewhere]Onset: 73-69-9957IutklqijYbojgi of prostate (20 sources)Prostate cancer metastatic to bone; Translations: [Malignant neoplasm of prostate]Onset: 499688-41-3359NybjyotZcatyd of prostate (4 sources)Personal history of malignant neoplasm of prostate; Translations: [History of malignant neoplasm ofprostate]Onset: [id number] Cancer; other and unspecified primary (1 source)Personal history of malignant neoplasm of bone; Translations: [PERSONAL HX MALIG NEOPLASM BONE]Onset: 96-55-4189KbhvidymRtnry and electrolyte disorders (20 sources)Hyperkalemia; Translations: [Hyperkalemia]Onset: 01-24-2023 81-53-8039NxuuhwyzJgzaibrxbqfkb symptoms and ill-defined conditions (6 sources)Urinary tract obstruction; Translations: [Obstructive and reflux uropathy, unspecified]Onset: 589213-93-0143TqgkuivrWjillwfpmnm of prostate (3 sources)Benign prostatic hypertrophy with outflow obstruction; Translations: [Benign prostatic hyperplasia with lower urinary tract symptoms]Onset: 182730-09-2642JckvadfJwhkzfhynvs deficiencies (16 sources)Deficiency of macronutrients; Translations: [Unspecified severe protein-calorie malnutrition]Onset: 787781-45-7555EjduxdjDazqj aftercare (1 source)Other senior care (current) drug therapy; Translations: [OTH LOCKSTITCH BACK MAKER CURRENT DRUG THERAPY]Onset: 03-64-8923MropywjgFqgaq connective tissue disease (1 source)Presence of left artificial hip joint; Translations: [PRESENCE LEFT ARTIFICIAL HIP JOINT]Onset: 80-99-7716WtmitemKbywn connective tissue disease (3 sources)Other specified soft tissue disorders; Translations: [OTHER SPEC SOFT TISSUE DISORDERS]Onset: 45-64-9489NstgdfzdDvifl connective tissue disease (2 sources)Abscess of bursa, left hip; Translations: [Abscess of bursa, left hip]Onset: 51-45-3174CxkcuhdiPepta diseases of kidney and ureters (1 source)Other obstructive and reflux uropathy; Translations: [Other obstructive and reflux uropathy]Onset: 97-85-6040TciaurjmMwhqc liver diseases (1 source)Acute and subacute hepatic failure without coma; Translations: [ACUTE SUBACUTE HEP FAILURE W/O COMA]Onset: 79-69-8001NldsdstmHsegp nervous system disorders (15 sources)Chronic pain; Translations: [Other chronic pain]Onset: 01-24-2023 72-72-2397WfnfmmqShptshnm codes; unclassified (1 source)Postoperative state; Translations: [Other specified postprocedural states]EpisodicResidual codes; unclassified (1 source)History of operative procedure on hip; Translations: [Other specified postprocedural states]EpisodicSecondary malignancies (20 sources)Secondary malignant neoplasm of bone; Translations: [Secondary malignant neoplasm of bone]Onset: 969714-03-7068JdtfuwsBgbqdusxyx (except in labor) (2 sources)Sepsis, unspecified organism; Translations: [Severe sepsis without septic shock]Onset: 39-67-9531RpzhpvizTvtl and subcutaneous tissue infections (2 sources)Cutaneous abscess of left lower limb; Translations: [Cutaneous abscess of left lower limb]Onset: 36-29-1925OxgykvcpAxhcybrfh-related disorders (20 sources)Tobacco user; Translations: [Nicotine dependence, unspecified, uncomplicated]Onset: 358969-75-6306EqaeeaaEmwbbcdnkiqm (1 source)CONTACT W/AND (SUSP) EXPOS COVID-19; Translations: [CONTACT W/AND (SUSP) EXPOS COVID-19]Onset: 01-25-2023 Past or Other Problems Problem ClassificationProblemDateDocumented DateEpisodic/ChronicLymphadenitis (20 sources)Lymphadenopathy; Translations: [Enlarged lymph nodes, unspecified] Onset: 381780-43-9687MvrfmljtGljen connective tissue disease (17 sources)Necrotizing fasciitis; Translations: [Necrotizing fasciitis]Onset: 156510-08-4118CsusxllhTivvb connective tissue disease (3 sources)Necrotizing fasciitis; Translations: [NECROTIZING FASCIITIS]Onset: 07-95-6349HilprdukPcopgajtzrhj fracture (20 sources)Pathological fracture of neck of femur; Translations: [Pathological fracture, unspecified femur, initial encounter for fracture]Onset: 02-24-2021 96-99-2573Bjfxmpmi Results Test NameValueInterpretationReference RangeFacilityCharlton Memorial Hospitalon 08-20-2025 Bacteria identified Cx Nom (U)ORGANISM: Escherichia coli (O:ESCCOL) [place] Count >100,000 Aerobic DILLON Charge (NMIC56) SUSCEPTIBILITY ORGANISM: O:ESCCOL ANTIBIOTIC INTERPRETATION DILLON Amikacin S <16 Amoxacillin/K Clavulanate S <8 Ampicillin R >16 Ampicillin/Sulbactam I 1616/8 Aztreonam S <4 Cefazolin S <2 Cefepime S <2 Ceftazidime S <1 Ceftazidime/Avibactam S <4 Ceftolozane/Tazobactam S <2 Ceftriaxone S <1 Cefuroxime S <4 Ciprofloxacin R >2 Ertapenem S <0.5 Gentamicin S <2 Levofloxacin R >4 Meropenem S <1 Meropenem/Vaborbactam S <2 Nitrofurantoin S <32 Piperacillin/Tazobactam S <8 Tetracycline S <4 Tigecycline S <2 Tobramycin S <2 Trimethoprim/Sulfamethoxazole S <0.5 S = SUSCEPTIBLE I = [...] RESISTANT TO ALL B-LACTAM DRUGS. PERFORMED BY: [place] [address] PATHOLOGIST LAUNDRY OPERATOR JUAN MARTINEZ M.D.[facility] Physician GroupComment on above: Performed By: #### CUU #### [address] Cultureon 41-00-7598Nvvhceyk identified Cx Nom (U) ORGANISM: Escherichia coli (O:ESCCOL) [place] Count >100,000 ORGANISM: Morganella morganii (O:MORMOR) [place] Count >100,000 Aerobic DILLON Charge (NMIC56) SUSCEPTIBILITY ORGANISM: O:ESCCOL ANTIBIOTIC INTERPRETATION DILLON Amikacin S <16 Amoxacillin/K Clavulanate S <8 Ampicillin R >16 Ampicillin/Sulbactam I 1616/8 Aztreonam S <4 Cefazolin S <2 Cefepime S <2 Ceftazidime S <1 Ceftazidime/Avibactam S <4 Ceftolozane/Tazobactam S <2 Ceftriaxone S <1 Cefuroxime S <4 Ciprofloxacin R >2 Ertapenem S <0.5 Gentamicin S <2 Levofloxacin R >4 Meropenem S <1 Meropenem/Vaborbactam S <2 Nitrofurantoin S <32 Piperacillin/Tazobactam S <8 Tetracycline S <4 Tigecycline S <2 Tobramycin S <2 Trimethoprim/Sulfamethoxazole S <0.5 Aerobic DILLON Charge (NMIC56) SUSCEPTIBILITY ORGANISM: O:MORMOR ANTIBIOTIC INTERPRETATION DILLON Amikacin S <16 Ampicillin/Sulbactam I 1616/8 Aztreonam I <4 Cefepime S <2 Ceftazidime I 4 Ceftazidime/Avibactam S <4 Ceftolozane/Tazobactam S <2 Ceftriaxone I <1 Ciprofloxacin S <0.25 Ertapenem S <0.5 Gentamicin S <2 Levofloxacin S <0.5 Meropenem S <1 Meropenem/Vaborbactam S <2 Piperacillin/Tazobactam I <8 Tetracycline S <4 Tobramycin S <2 Trimethoprim/Sulfamethoxazole S <0.5 S = SUSCEPTIBLE I = [...] RESISTANT TO ALL B-LACTAM DRUGS. PERFORMED BY: [address] [place] [address] PATHOLOGIST LAUNDRY OPERATOR JUAN MARTINEZ M.D.[facility] Physician GroupComment on above: Performed By: #### CUU #### [facility] [address] [id number] [facility] HEALTH CENTERUrine cultureOrdered By: Benji Wilkins on 21-55-8032Byvpdxkw identified Cx Nom (U)Escherichia coliAbGalion Community Hospital Bacteria identified Cx Nom (U)Morganella morganiiAbWilson Memorial Hospitaltone Analysison 15-09-9789Klozkmv descriptionSee [facility] HospitalComment on above:Result Comment: (NOTE) Specimen consists of three delcid fragments. The total weight is 110 mg.Performed By: #### ASTONE #### [employer] [address] [place], [place] [id number] Skin Pass Operator: BOUBACAR MarleyBallad Healthanoop The Christ HospitalComment on above:Result Comment: (NOTE) Sample composed primarily of organic [...] composition determined by FTIR analysis. Performed By: [address] [address] [place] [address] Harvester Operator: Sam Mcghee MD, PhD CLIA Number: [id number] By: #### ASTONE #### [employer] [address] [place], [place] [id number] Skin Pass Operator: Lico Marleyss110 [facility] Comment on above:Performed By: #### ASTONE #### [employer] [address] [place], [place] [id number] Skin Pass Operator: Julio Cesar Berry MDFLUORChayito FOR SURGICAL PROCEDURESon [id number] FOR SURGICAL PROCEDURESRadiology exam is complete. No Radiologist dictation. Please follow up with ordering provider. Final resultGreene Memorial HospitalGuidance-- during surgeryon 02-35-8950Vkmtyrzvv exam is complete. No Radiologist dictation. Please follow up with ordering provider. [facility] RIS CONSOLIDATEDUrine Cultureon 60-14-3843Nxdvrjgp identified Cx Nom (U) ORGANISM: Klebsiella oxytoca (O:KLEOXY) [place] Count >100,000 ORGANISM: Klebsiella oxytoca (O:KLEOXY) [place] Count 75,000 Aerobic DILLON Charge (NMIC56) SUSCEPTIBILITY ORGANISM: O:KLEOXY ANTIBIOTIC INTERPRETATION DILLON Amikacin S <16 Amoxacillin/K Clavulanate S <8 Ampicillin/Sulbactam S 88/4 Aztreonam S <4 Cefazolin S 8 Cefepime S <2 Ceftazidime S <1 Ceftazidime/Avibactam S <4 Ceftolozane/Tazobactam S <2 Ceftriaxone S <1 Cefuroxime S <4 Ciprofloxacin S <0.25 Ertapenem S <0.5 Gentamicin S <2 Levofloxacin S <0.5 Meropenem S <1 Meropenem/Vaborbactam S <2 Nitrofurantoin S <32 Piperacillin/Tazobactam S <8 Tetracycline S <4 Tigecycline S <2 Tobramycin S <2 Trimethoprim/Sulfamethoxazole S <0.5 Aerobic DILLON Charge (NMIC56) SUSCEPTIBILITY ORGANISM: O:KLEOXY ANTIBIOTIC INTERPRETATION DILLON Amikacin S <16 Amoxacillin/K Clavulanate S <8 Ampicillin/Sulbactam S 88/4 Aztreonam S <4 Cefazolin I 16 Cefepime S <2 Ceftazidime S <1 Ceftazidime/Avibactam S <4 Ceftolozane/Tazobactam S <2 Ceftriaxone S <1 Cefuroxime S <4 Ciprofloxacin S <0.25 Ertapenem S <0.5 Gentamicin S <2 Levofloxacin S <0.5 Meropenem S <1 Meropenem/Vaborbactam S <2 Nitrofurantoin S <32 Piperacillin/Tazobactam S <8 Tetracycline S <4 Tigecycline S <2 Tobramycin S <2 Trimethoprim/Sulfamethoxazole S <0.5 S = SUSCEPTIBLE I = [...] RESISTANT TO ALL B-LACTAM DRUGS. PERFORMED BY: [facility] [address] [place] [address] PATHOLOGIST LAUNDRY OPERATOR JUAN MARTINEZ M.D.NormalHca Florida South Tampa Hospital Physician GroupComment on above: Performed By: #### CUU #### [facility] [address] [id number] USABasic Metabolic Panelon 06-61-8946Yizjj gap [Moles/Vol]10 mmol/L9 - 16 mmol/LBon SecChickRx HealthCalcium [Mass/Vol]8.4 mg/dLLow8.6 - 10.4 mg/dLBon SecChickRx HealthChloride [Moles/Vol]106 mmol/L98 - 107 mmol/L Bon [facility]del[facility] Revolights HealthCO2 [Moles/Vol]20 mmol/L20 - 31 mmol/LBon SecChickRx HealthCreatinine [Mass/Vol]1.8 mg/dLHigh0.7 - 1.2 mg/dLBon SecChickRx Health Est, Glom Filt Nngr54Rpc- PINFBon SecChickRx [facility] Rehabilitation HospitalComment on above: These results are not intended [...] therapy that affects renal tubular secretion. Glucose [Mass/Vol]99 mg/dL74 - 99 mg/dLBon Arlington HealthCareInterpretation and review of laboratory resultsAbnormalBon St. Charles HospitalPotassium [Moles/Vol]5 mmol/L3.7 - 5.3 mmol/LBon St. Charles HospitalSodium [Moles/Vol]136 mmol/L136 - 145 mmol/LBon St. Charles HospitalUrea nitrogen [Mass/Vol]31 mg/dL High8 - 23 mg/dLBon [facility] Avera HealthBasic Metabolic Profon 16-00-0668Lfwag gap [Moles/Vol]10 mmol/LNormal9-16[facility] HospitalComment on above:Performed By: #### BMPX, CDP #### [employer] [address] [place] [address] Skin Pass Operator: BOUBACAR Carvajalalcium [Mass/Vol]8.4 mg/dLLow8.6-10.4Ohio State [facility] HospitalComment on above:Performed By: #### BMPX, CDP #### [facility] [address] [place], [place] [id number] Skin Pass Operator: BOUBACAR Carvajalhloride [Moles/Vol]106 mmol/KZnwchv05-270YmbwcOhio State East HospitalComment on above:Performed By: #### BMPX, CDP #### [employer] [address] [place] [address] Skin Pass Operator: Collin Augustin MDCO2 [Moles/Vol]20 mmol/KHbjidj35-58PfsqlOhio State East HospitalComment on above:Performed By: #### BMPX, CDP #### [facility] [address] [place] [address] Skin Pass Operator: BOUBACAR Carvajalreatinine [Mass/Vol]1.8 mg/dLHigh0.7-1.2MSuburban Medical CenterComment on above:Performed By: #### BMPX, CDP #### [facility] [address] [place] [address] Skin Pass Operator: Collin Madoff, MDGFR/1.73 sq M.predicted among non-blacks MDRD (S/P/Bld) [Vol rate/Area]42 mL/min/{1.73_m2}Low>60[facility] HospitalComment on above:Result Comment: These results are not intended for [...] or following therapy that affects renal tubular secretion.Performed By: #### BMPX, CDP #### [employer] [address] [place] [address] Skin Pass Operator: Collin Augustin MDGlucose [Mass/Vol]99 mg/wVZzesvu03-61UhbwgSuburban Medical CenterComment on above:Performed By: #### BMPX, CDP #### [facility] [address] [place] [address] Skin Pass Operator: NADYA Carvajalotassium [Moles/Vol]5.0 mmol/LNormal3.7-5.3 [facility] HospitalComment on above:Performed By: #### BMPX, CDP #### [facility] [address] [place] [address] Skin Pass Operator: IRENE Carvajalodium [Moles/Vol]136 mmol/LQalocx766-877GobqoOhio State East HospitalComment on above:Performed By: #### BMPX, CDP #### [facility] [address] [place] [address] Skin Pass Operator: Collin Augustin MDUrea nitrogen [Mass/Vol]31 mg/dLHigh8-23[facility] HospitalComment on above:Performed By: #### BMPX, CDP #### [facility] [address] [place] [address] Skin Pass Operator: Santo Carvajal,Whole Bloodon 04-72-8598Nyxutoh [Mass/Vol]88 mg/pFRehqjo93-433Qmypu [facility], Memorial CampusIR ANTEGRADE PYELOGRAMon 40-69-8558Vgzqc nephrostogram shows a patent right ureteral stent. Nephrostomy tube was removed uneventfully. Esau Garcia MD - 02/06/2025 PROCEDURE: RIGHT NEPHROSTOGRAM WITH [...] the procedure including risks, benefits, and alternatives. [place] protocol was observed. Sterile gowns, masks, hats and gloves utilized for maximal sterile barrier. Molasses Coloring Operator view shows a right nephrostomy tube in [...] ureteral stent. Nephrostomy tube was removed uneventfully. [facility] Glucose Fingerstickon 44-34-4700Nkmibpp [Mass/Vol]88 mg/dL75 - 110 mg/dLBon SecAscension St. Michael HospitalBasic Metabolic Panelon 19-66-4816Jhshu gap [Moles/Vol]11 mmol/L9 - 16 mmol/LBon St. Charles HospitalCalcium [Mass/Vol]8.3 mg/dLLow8.6 - 10.4 mg/dLBon St. Charles HospitalChloride [Moles/Vol]106 mmol/L98 - 107 mmol/L [facility] HospitalCO2 [Moles/Vol]18 mmol/LLow20 - 31 mmol/LBon St. Charles HospitalCreatinine [Mass/Vol]1.9 mg/dLHigh0.7 - 1.2 mg/dLBon St. Charles HospitalEst, Glom Filt Tmjo16Xkx- PINFBon St. Charles HospitalComment on above: These results are not intended [...] therapy that affects renal tubular secretion. Glucose [Mass/Vol]107 mg/xODrrk16 - 99 mg/dLBon [facility] Interpretation and review of laboratory resultsAbnormalBon [facility] Potassium [Moles/Vol]4.8 mmol/L3.7 - 5.3 mmol/LBon St. Charles HospitalSodium [Moles/Vol]135 mmol/IVsw521 - 145 mmol/LBon St. Charles HospitalUrea nitrogen [Mass/Vol]34 mg/dLHigh8 - 23 mg/dLBon [facility] Avera HealthBasic Metabolic Profon 82-06-7491Ggogd gap [Moles/Vol]11 mmol/LNormal9-16 [facility] HospitalComment on above:Performed By: #### BMPX, CDP #### [employer] [facility] [place] [address] Skin Pass Operator: BOUBACAR Carvajalalcium [Mass/Vol]8.3 mg/dLLow8.6-10.4[facility] East HospitalComment on above:Performed By: #### BMPX, CDP #### [employer] [address] [place], [place] [phone] Skin Pass Operator: BOUBACAR Carvajalhloride [Moles/Vol]106 mmol/GKrabbw28-385LmuadOhio State East HospitalComment on above:Performed By: #### BMPX, CDP #### [facility] [address] [place] [address] Skin Pass Operator: BOUBACAR CarvajalO2 [Moles/Vol]18 mmol/OIyn61-56NllptOhio State East HospitalComment on above:Performed By: #### BMPX, CDP #### [facility] [address] [place] [address] Skin Pass Operator: BOUBACAR Carvajalreatinine [Mass/Vol]1.9 mg/dLHigh0.7-1.2MSuburban Medical CenterComment on above:Performed By: #### BMPX, CDP #### [facility] [address] [place] [address] Skin Pass Operator: Collin Augustin MDGFR/1.73 sq M.predicted among non-blacks MDRD (S/P/Bld) [Vol rate/Area]40 mL/min/{1.73_m2}Low>60[facility] HospitalComment on above:Result Comment: These results are not intended for [...] or following therapy that affects renal tubular secretion.Performed By: #### BMPX, CDP #### [facility] [address] [place] [address] Skin Pass Operator: Collin Augustin MDGlucose [Mass/Vol]107 mg/nFDnxy42-77HlrgiSuburban Medical CenterComment on above:Performed By: #### BMPX, CDP #### [facility] [address] [place] [address] Skin Pass Operator: Collin Augustin MDPotassium [Moles/Vol]4.8 mmol/LNormal3.7-5.3 [facility] HospitalComment on above:Performed By: #### BMPX, CDP #### [facility] [address] [place] [address] Skin Pass Operator: IRENE Carvajalodium [Moles/Vol]135 mmol/QYqr593-726ZcqcfOhio State East HospitalComment on above:Performed By: #### BMPX, CDP #### [facility] [address] [place] [address] Skin Pass Operator: Collin Augustin MDUrea nitrogen [Mass/Vol]34 mg/dLHigh8-23[facility] HospitalComment on above:Performed By: #### BMPX, CDP #### [facility] [address] [place] [address] Skin Pass Operator: Collin Augustin MDGlucose,Whole Bloodon 12-93-9545Brxvzkn [Mass/Vol]106 mg/sIMqwnxj39-577AfcnaOhio State East HospitalGlucose [Mass/Vol]107 mg/pNHlvyyr83-006RsgdeOhio State East HospitalGlucose [Mass/Vol]97 mg/cTVcondo97-492FyhcpOhio State East HospitalHemoglobin and Hematocriton 59-73-2626Cczsbupufz (Bld) [Volume fraction]27.9 %Low40.7 - 50.3 % [facility] HospitalHemoglobin (Bld) [Mass/Vol]8.2 g/dLLow13.0 - 17.0 g/dL [facility] HospitalInterpretation and review of laboratory resultsAbnormal [facility] Health SystemHematocrit (Bld) [Volume fraction]30.7 %Low40.7 - 50.3 %[facility] HospitalHemoglobin (Bld) [Mass/Vol]9.1 g/dLLow13.0 - 17.0 g/dLBon St. Charles HospitalInterpretation and review of laboratory resultsAbnormalBon [facility] / Avera HealthHgb/Hcton 47-23-0069Fwbeqeddpe (Bld) [Volume fraction]27.9 %Low40.7-50.3 [facility] HospitalComment on above:Performed By: #### TROPI, BMPX #### [facility] [place] [address] Skin Pass Operator: Collin Augustin MDHemoglobin (Bld) [Mass/Vol]8.2 g/dLLow13.0-17.0 [facility] HospitalComment on above:Performed By: #### TROPI, BMPX #### [facility] [address] [place] [address] Skin Pass Operator: Collin Augustin MDHematocrit (Bld) [Volume fraction]30.7 %Low 40.7-50.3M[facility] memorial hospitaly [facility], Memorial CampusComment on above:Performed By: #### BMPX, CDP, MG #### [facility] [address] [place] [address] Skin Pass Operator: Collin Augutsin MDHemoglobin (Bld) [Mass/Vol]9.1 g/dLLow13.0-17.0 [facility] HospitalComment on above:Performed By: #### BMPX, CDP, MG #### [facility] [address] [place] [address] Skin Pass Operator: GALA Carvajal ANTEGRADE PYELOGRAMon 80-80-7161Mhhlzdymt Study observation (narrative)[facility] GUIDED NEPHROSTOMY CATH PLACEMENT RIGHTon 29-16-4948Sulnbxiycd percutaneous right nephrostomy tube placement. Successful antegrade right ureteral stent placement; 8 Chilean by 24 cm double-J stent was deployed. Esau Garcia MD - 02/05/2025 PROCEDURE: PERCUTANEOUS ANTEGRADE PYELOGRAM [...] the procedure including risks, benefits, and alternatives. [place] protocol was followed. Patient is on intravenous [...] over the guidewire. Through the outer 6 Chilean cannula an angled catheter and Glidewire were advanced and negotiated into the ureter. Guidewire and catheter were directed into the bladder. Small amount of contrast injected verifying catheter tip in the bladder. There is a Hummel catheter in place. An Amplatz guidewire was placed through the catheter. An 8 Chilean by 24 cm double-J ureteral stent was deployed with the distal loop formed in the bladder. The proximal loop was formed in the renal pelvis. Small amount of contrast injected verifying appropriate catheter positioning and patency. An 8 Chilean nephrostomy tube was placed over the guidewire [...] Successful antegrade right ureteral stent placement; 8 Chilean by 24 cm double-J stent was deployed. [facility] Glucose Fingerstickon 00-87-6739Yyuvzjw [Mass/Vol]106 mg/dL75 - 110 mg/dLBon [facility] Avera HealthGlucose [Mass/Vol]107 mg/dL75 - 110 mg/dLBon [facility] / Avera HealthGlucose [Mass/Vol]97 mg/dL75 - 110 mg/dLBon St[address] Charles HospitalBon St. Charles HospitalBasic Metab w/rfx MGon 02-04-2025 Anion gap [Moles/Vol]13 mmol/LNormal9-16[facility] HospitalComment on above:Performed By: #### BMPX, CDP, MG #### [employer] [address] [place] [address] Skin Pass Operator: BOUBACAR Carvajalalcium [Mass/Vol]8.8 mg/dLNormal8.6-10.4[facility] HospitalComment on above:Performed By: #### MIKE, CDP, MG #### [employer] [address] [place] [address] Skin Pass Operator: BOUBACAR Carvajalhloride [Moles/Vol]107 mmol/VOxioal34-952MhcirOhio State East HospitalComment on above:Performed By: #### MIKE, CDP, MG #### [employer] [address] [place] [address] Skin Pass Operator: Collin Augustin MDCO2 [Moles/Vol]18 mmol/MEqt34-44IywfjOhio State East HospitalComment on above:Performed By: #### BMPX, CDP, MG #### [employer] [address] [place] [address] Skin Pass Operator: BOUBACAR Carvajalreatinine [Mass/Vol]2.1 mg/dLHigh0.7-1.2MSuburban Medical CenterComment on above:Performed By: #### BMPX, CDP, MG #### [employer] [address] [place] [address] Skin Pass Operator: Collin Augustin MDGFR/1.73 sq M.predicted among non-blacks MDRD (S/P/Bld) [Vol rate/Area]35 mL/min/{1.73_m2}Low>60[facility] HospitalComment on above:Result Comment: These results are not intended for [...] or following therapy that affects renal tubular secretion.Performed By: #### BMPX, CDP, MG #### [facility] [address] [place] [address] Skin Pass Operator: Collin Augustin MDGlucose [Mass/Vol]100 mg/nWNlmw06-24IsanqSuburban Medical CenterComment on above:Performed By: #### BMPX, CDP, MG #### [facility] [address] [place] [address] Skin Pass Operator: NADYA Carvajalotassium [Moles/Vol]4.5 mmol/LNormal3.7-5.3 [facility] HospitalComment on above:Performed By: #### BMPX, CDP, MG #### [facility] [address] [place] [address] Skin Pass Operator: IRENE Carvajalodium [Moles/Vol]138 mmol/YEnertq994-802KxtpyOhio State East HospitalComment on above:Performed By: #### BMPX, CDP, MG #### [facility] [address] [place] [address] Skin Pass Operator: Collin Augustin MDUrea nitrogen [Mass/Vol]29 mg/dLHigh8-23[facility] HospitalComment on above:Performed By: #### BMPX, CDP, MG #### [employer] [address] [place] [address] Skin Pass Operator: Collin Augustin MDBasi Metabolic Panel w/ Reflex to MGon 81-45-8934Orxgl gap [Moles/Vol]13 mmol/L9 - 16 mmol/LBon [facility]. [facility] Calcium [Mass/Vol]8.8 mg/dL8.6 - 10.4 mg/dLBon Secours Mercy HealthChloride [Moles/Vol]107 mmol/L98 - 107 mmol/LBon Secours Mercy HealthCO2 [Moles/Vol]18 mmol/LLow20 - 31 mmol/LBon Secours Mer[facility] HealthCreatinine [Mass/Vol]2.1 mg/dL High0.7 - 1.2 mg/dLBon Secours [employer] Yety HealthEst, Glom Filt Khiu17Xyf- PINFBon SecHarborview Medical CenterTagbrand [facility] Rehabilitation HospitalComment on above: These results are not intended [...] therapy that affects renal tubular secretion. Glucose [Mass/Vol]100 mg/oMCvls79 - 99 mg/dLBon John George Psychiatric PavilionDream Kitchen Interpretation and review of laboratory resultsAbnormalBon Secours The Christ HospitalTagbrand Health Potassium [Moles/Vol]4.5 mmol/L3.7 - 5.3 mmol/LBon Secours [employer] iBioSodium [Moles/Vol]138 mmol/L136 - 145 mmol/LBon Secours ArstasisUrea nitrogen [Mass/Vol]29 mg/dLHigh8 - 23 mg/dLBon Secdelaware psychiatric center ArstasisCBC with Auto Differentialon 87-94-5526Erivveorh (Bld) [#/Vol]0.14 10*3/uLBon Secours Mercy HealthBasophils/100 WBC (Bld)2 %0 - 2 %[facility] HealthEosinophils (Bld) [#/Vol]0.76 10*3/uLHighBon Secours Mercy HealthEosinophils/100 WBC (Bld)9 %High 1 - 4 %[facility] HealthErythrocyte distribution width (RBC) [Ratio]14.6 %High11.8 - 14.4 %[facility] HealthHematocrit (Bld) [Volume fraction]29.4 %Low40.7 - 50.3 %[facility] HealthHemoglobin (Bld) [Mass/Vol]8.8 g/dLLow 13.0 - 17.0 g/dLBon SecHarborview Medical Centery HealthImmature granulocytes (Bld) [#/Vol]0.04 10*3/uLBon Secours [facility]y [facility] HospitalImmature granulocytes/100 WBC (Bld)1 %Qqgt1Nqu St. Charles HospitalInterpretation and review of laboratory resultsAbnormalBon Secours The [facility] Hospitaly [facility] HospitalLymphocytes/100 WBC (Bld)22 %Low24 - 43 %Bon SecRegency Hospital Cleveland WestLymphocytes/100 WBC (Bld)1.82 %[facility] HospitalH (RBC) [Entitic mass]24 pgLow25.2 - 33.5 pgBon [facility] TrumbullHC (RBC) [Mass/Vol]29.9 g/dL28.4 - 34.8 g/dLBon SecSelect Medical [facility] Rehabilitation Hospital, BeachwoodV (RBC) [Entitic vol]80.3 fLLow 82.6 - 102.[address] Charles HospitalMonocytes/100 WBC (Bld)7 %3 - 12 %[facility] HospitalMonocytes/100 WBC (Bld)0.57 %[facility] Neutrophils/100 WBC (Bld)59 %36 - 65 %[facility] HospitalNucleated RBC/100 WBC (Bld) [Ratio]0 %0.[address] Charles HospitalPlatelet mean volume (Bld) [Entitic vol]9.6 fL8.1 - 13.5 fLBon SecOchsner Medical Center HealthPlatelets (Bld) [#/Vol]297 10*3/uLBon SecRegency Hospital Cleveland WestRBC (Bld) [#/Vol]3.66 10*6/uLLow4.21 - 5.77 m/uLBon SecRegency Hospital Cleveland WestRBC (Bld) [#/Vol]ANISOCYTOSIS PRESENT MICROCYTOSIS PRESENTBon St. Charles HospitalSegmented neutrophils/100 WBC (Bld) 4.81 %Bon St. Charles HospitalWBC other (Bld) [#/Vol]8.1Bon [facility] Health Bon [facility]. Charles HospitalCBC with Diffon 72-69-8600Gha. Basophil0.14 k/uLNormal 0.00-0.20[facility] HospitalComment on above:Performed By: #### BMPX, CDP, MG #### [facility] [address] [place] [address] Skin Pass Operator: Arthur Carvajal.Imm.Granulocyte0.04 k/uLNormal0.00-0.30[facility] HospitalComment on above:Performed By: #### BMPX, CDP, MG #### [facility] [address] [place] [phone] Skin Pass Operator: Arthur Carvajal.Neutrophil (Seg)4.81 k/uLNormal1.50-8.10 [facility] HospitalComment on above:Performed By: #### BMPX, CDP, MG #### [facility] [address] [place] [address] Skin Pass Operator: Collin Augustin MDBasophils/100 WBC (Bld)2 %Normal0-2MSuburban Medical CenterComment on above:Performed By: #### BMPÁngela, CDP, MG #### [facility] [address] [place] [address] Skin Pass Operator: Collin Augustin MDEosinophils (Bld) [#/Vol]0.76 10*3/uLHigh 0.00-0.44[facility] HospitalComment on above:Performed By: #### BMPX, CDP, MG #### [facility] [address] [place] [address] Skin Pass Operator: BLAKE Carvajalosinophils/100 WBC (Bld)9 %High1-4[facility] HospitalComment on above:Performed By: #### BMPX, CDP, MG #### [facility] [address] [place] [address] Skin Pass Operator: Collin Augustin MDErythrocyte distribution width (RBC) [Ratio]14.6 %High11.8-14.4[facility] HospitalComment on above:Performed By: #### BMPX, CDP, MG #### [facility] [address] [place] [address]609 Skin Pass Operator: Collin Augustin MDHematocrit (Bld) [Volume fraction]29.4 %Low 40.7-50.3[facility] hospitaly [facility], Memorial CampusComment on above:Performed By: #### BMPX, CDP, MG #### [facility] [address] [place] [address] 7[address]11 Skin Pass Operator: Collin Augustin MDHemoglobin (Bld) [Mass/Vol]8.8 g/dLLow13.0-17.0 [facility] HospitalComment on above:Performed By: #### BMPX, CDP, MG #### [facility] [address] [place] [address]92 Skin Pass Operator: Collin Augustin MDImmature granulocytes/100 WBC (Bld)1 %Xavl5SornuOhio State East HospitalComment on above:Performed By: #### BMPX, CDP, MG #### [facility] [address] [place] [address]36 Skin Pass Operator: Collin Augustin MDLymphocytes (Bld) [#/Vol]1.82 10*3/uLNormal 1.10-3.70[facility] HospitalComment on above:Performed By: #### BMPX, CDP, MG #### [facility] [address] [place] [address] Skin Pass Operator: Jimi Carvajalmphocytes/100 WBC (Bld)22 %Xzo35-51BywozOhio State East HospitalComment on above:Performed By: #### BMPX, CDP, MG #### [facility] [address] [place] [address] 32488 Skin Pass Operator: BARBARA CarvajalCH (RBC) [Entitic mass]24.0 pgLow25.2-33.5[facility] HospitalComment on above:Performed By: #### BMPX, CDP, MG #### [facility] [address] [place] [address]504 Skin Pass Operator: BARBARA CarvajalCHC (RBC) [Mass/Vol]29.9 g/zWUypbdt91.4-34.8 [facility] HospitalComment on above:Performed By: #### BMPX, CDP, MG #### [facility] [address] [place] [address] 16326 Skin Pass Operator: BARBARA CarvajalCV (RBC) [Entitic vol]80.3 fLLow82.6-102.9[facility] HospitalComment on above:Performed By: #### BMPX, CDP, MG #### [facility] [address] [place] [address]18 Skin Pass Operator: BARBARA Carvajalonocytes (Bld) [#/Vol]0.57 10*3/uLNormal 0.10-1.20[facility] HospitalComment on above:Performed By: #### BMPX, CDP, MG #### [facility] [address] [place] [address] 26388 Skin Pass Operator: BARBARA Carvajalonocytes/100 WBC (Bld)7 %Normal3-12[facility] HospitalComment on above:Performed By: #### BMPX, CDP, MG #### [facility] [address] [place] [address] 9[address]11 Skin Pass Operator: Collin Augustin MDNeutrophil (Seg)59 %Wvpmlt14-90PowvnOhio State East HospitalComment on above:Performed By: #### BMPX, CDP, MG #### [facility] [address] [place] [address] 03581 Skin Pass Operator: Collin Augustin MDNRBC Automated0.0 per 100 WBCNormal0.0[facility] HospitalComment on above:Performed By: #### BMPX, CDP, MG #### [facility] [address] [place] [address] 33829 Skin Pass Operator: Asa Carvajal mean volume (Bld) [Entitic vol]9.6 fL Normal8.1-13.5[facility] HospitalComment on above:Performed By: #### BMPX, CDP, MG #### [facility] [address] [place] [address] 71350 Skin Pass Operator: Ghislaine Carvajaltehailey (Bld) [#/Vol]297 10*3/bYWhewcj735-180 [facility] HospitalComment on above:Performed By: #### BMPX, CDP, MG #### [facility] [address] [place] [address] 20157 Skin Pass Operator: GAB CarvajalBC (Bld) [#/Vol]3.66 10*6/uLLow4.21-5.77[facility] HospitalComment on above:Performed By: #### BMPX, CDP, MG #### [facility] [address] [place] [address] 41872 Skin Pass Operator: ABNER Carvajal morphology finding Nom (Bld)ANISOCYTOSIS PRESENTNormalOhio State East HospitalComment on above:Result Comment: MICROCYTOSIS PRESENTPerformed By: #### BMPX, CDP, MG #### [address] [address] Skin Pass Operator: Collin Augustin MDWBC (Bld) [#/Vol]8.1 10*3/uLNormal3.5-11.3MSuburban Medical CenterComment on above:Performed By: #### BMPX, CDP, MG #### [facility] [address] [place] [address] 15557 Skin Pass Operator: Santo Carvajal,Whole Bloodon 31-98-7762Vqjenqf [Mass/Vol]127 mg/uMRmpx47-986UqwibOhio State East HospitalGlucose [Mass/Vol] 91 mg/vSGhbmkl95-520SxybvOhio State East HospitalGlucose [Mass/Vol]118 mg/dL Izam55-893SjbveOhio State East HospitalHemoglobin and Hematocriton 02-04-2025 Hematocrit (Bld) [Volume fraction]28.2 %Low40.7 - 50.3 %[facility] Hemoglobin (Bld) [Mass/Vol]8.7 g/dLLow13.0 - 17.0 g/dLBon St. [facility] Interpretation and review of laboratory resultsAbnormalCarilion ClinicHgb/Hcton 14-70-6246Oazdipahte (Bld) [Volume fraction] 28.2 %Low40.7-50.3[facility], Memorial CampusComment on above:Performed By: #### BMPX, CDP #### [employer] [address] [place], [place] [phone] Skin Pass Operator: Collin Augustin MDHemoglobin (Bld) [Mass/Vol]8.7 g/dLLow13.0-17.0 [facility] HospitalComment on above:Performed By: #### BMPX, CDP #### [employer] [address] [place], [place] [address] Skin Pass Operator: Collin Augustin MDIR GUIDED NEPHROSTOMY CATH PLACEMENT RIGHTon 69-69-0786Sipfwhyxe Study observation (narrative)[facility] Magnesiumon 11-33-8521Xfqaxjdfw [Mass/Vol]1.8 mg/dL1.6 - 2.4 mg/dLBon St. Charles HospitalMagnesium [Mass/Vol]1.8 mg/dLNormal1.6-2.4[facility] HospitalComment on above:Performed By: #### BMPX, CDP, MG #### [employer] [address] [place], [place] [phone] Skin Pass Operator: Collin Madoff, MDNo Panel Informationon 27-28-7522Rhw [facility] Glucose Fingerstickon 93-97-5790Fvdqryq [Mass/Vol]127 mg/dLHigh 75 - 110 mg/dLBon St. Charles HospitalInterpretation and review of laboratory resultsAbnormRappahannock General HospitalGlucose [Mass/Vol]91 mg/dL75 - 110 mg/dLBon [facility] Glucose [Mass/Vol]118 mg/hICnjp62 - 110 mg/dLBon [facility] Interpretation and review of laboratory resultsAbnoMarshall County Healthcare Center [id number] Coag (PPP) [Relative time]1.0 {INR} NormalOhio State East HospitalComment on above:Result Comment: Therapeutic Range: Moderate Anticoagulant Intensity: INR = 2.0-3.0 High Anticoagulant Intensity: INR = 2.5-3.5Performed By: #### BMPX, CDP #### [employer] [address] [place] [address] Skin Pass Operator: NOELLE Carvajal Coag (PPP) [Time]13.3 tMpiiop24.7-14.9[facility] HospitalComment on above:Performed By: #### BMPX, CDP #### [employer] [address] [place] [address] Skin Pass Operator: Francesco Carvajalime-INRon 38-68-2813UFA Coag (PPP) [Relative time]1 {INR}[facility] HospitalComment on above: Therapeutic Range: Moderate Anticoagulant Intensity: INR = 2.0-3.0 High Anticoagulant Intensity: INR = 2.5-3.5 PT Coag (PPP) [Time]13.3 sBon [facility]vera HealthBasic Metab w/rfx MGon 00-56-6956Uhvlo gap [Moles/Vol]12 mmol/LNormal9-16[facility] HospitalComment on above:Performed By: #### BMPX, CDP #### [facility] [place] [address] Skin Pass Operator: BOUBACAR Carvajalalcium [Mass/Vol]8.5 mg/dLLow8.6-10.4[facility] HospitalComment on above:Performed By: #### BMPX, CDP #### [facility] [address] [place] [address] 22301 Skin Pass Operator: Collin Augustin MDChloride [Moles/Vol]106 mmol/QOlgynh20-876LezdnOhio State East HospitalComment on above:Performed By: #### BMPX, CDP #### [facility] [address] [place] [address] 58079 Skin Pass Operator: Collin Augustin MDCO2 [Moles/Vol]18 mmol/ZWwy90-71YdlrqOhio State East HospitalComment on above:Performed By: #### BMPX, CDP #### [facility] [address] [place] [address] 38667 Skin Pass Operator: BOUBACAR Carvajalreatinine [Mass/Vol]2.5 mg/dLHigh0.7-1.2MSuburban Medical CenterComment on above:Performed By: #### BMPX, CDP #### [facility] [address] [place] [address] 47128 Skin Pass Operator: Collin Augustin MDGFR/1.73 sq M.predicted among non-blacks MDRD (S/P/Bld) [Vol rate/Area]29 mL/min/{1.73_m2}Low>60[facility] HospitalComment on above:Result Comment: These results are not intended for [...] or following therapy that affects renal tubular secretion.Performed By: #### BMPX, CDP #### [facility] [address] [place] [address] 09111 Skin Pass Operator: Collin Augustin MDGlucose [Mass/Vol]98 mg/iTCrqmfp06-75QuclhSuburban Medical CenterComment on above:Performed By: #### BMPX, CDP #### [facility] [address] [place] [address] 37524 Skin Pass Operator: NADYA Carvajalotassium [Moles/Vol]4.4 mmol/LNormal3.7-5.3 [facility] HospitalComment on above:Result Comment: Specimen hemolysis has exceeded the interference as defined by Hoa. Value may be falsely increased. Suggest recollection if clinically indicated.Performed By: #### BMPX, CDP #### [facility] [address] [place] [address] 02873 Skin Pass Operator: IRENE Carvajalodium [Moles/Vol]136 mmol/RPuwfhn008-734BupajOhio State East HospitalComment on above:Performed By: #### BMPX, CDP #### [facility] [address] [place] [address] 97499 Skin Pass Operator: Collin Augustin MDUrea nitrogen [Mass/Vol]27 mg/dLHigh8-23[facility] HospitalComment on above:Performed By: #### BMPX, CDP #### [facility] [address] [place] [address] 11955 Skin Pass Operator: Collin Augustin MDBasi Metabolic Panel w/ Reflex to MGon 21-66-1584[place] gap [Moles/Vol]12 mmol/L9 - 16 mmol/L[facility] Calcium [Mass/Vol]8.5 mg/dLLow8.6 - 10.4 mg/dLBon Secours [facility] HealthChloride [Moles/Vol]106 mmol/L98 - 107 mmol/LBon Secours [facility] HealthCO2 [Moles/Vol]18 mmol/LLow20 - 31 mmol/LBon [facility]ours [facility] HealthCreatinine [Mass/Vol]2.5 mg/dL High0.7 - 1.2 mg/dLBon SecChickRx HealthEst, Glom Filt Gbat93Gpr- PINFBon SecDisplayLinkComment on above: These results are not intended [...] therapy that affects renal tubular secretion. Glucose [Mass/Vol]98 mg/dL74 - 99 mg/dLBon [email or web address] HealthInterpretation and review of laboratory resultsAbnormalBon Secours On [facility] Yety HealthPotassium [Moles/Vol]4.4 mmol/L3.7 - 5.3 mmol/LBon SecChickRx HealthComment on above: Specimen hemolysis has exceeded the interference as defined by Hoa. Value may be falsely increased. Suggest recollection if clinically indicated. Sodium [Moles/Vol]136 mmol/L136 - 145 mmol/LBon SecChickRx HealthUrea nitrogen [Mass/Vol]27 mg/dLHigh8 - 23 mg/dLBon SecChickRx HealthCBC with Auto Differentialon 84-68-7626Vjfbyqnra (Bld) [#/Vol]0.15 10*3/uLBon Secours On The Net Yety HealthBasophils/100 WBC (Bld)2 %0 - 2 %[facility] HealthEosinophils (Bld) [#/Vol]0.7 10*3/uLHighBon Secours Mer[facility] HealthEosinophils/100 WBC (Bld)9 %High1 - 4 %[facility] HealthErythrocyte distribution width (RBC) [Ratio]14.7 % High11.8 - 14.4 %[facility] HealthHematocrit (Bld) [Volume fraction]28.5 %Low40.7 - 50.3 %[facility] HealthHemoglobin (Bld) [Mass/Vol]8.8 g/dLLow 13.0 - 17.0 g/dLBon Secours On [facility] Net Yety iBioImmature granulocytes (Bld) [#/Vol]0.03 10*3/uLBon SecRegency Hospital Cleveland WestImmature granulocytes/100 WBC (Bld)0 %0Bon [facility] HospitalInterpretation and review of laboratory resultsAbnormalBon SecRegency Hospital Cleveland WestLymphocytes/100 WBC (Bld)18 %Low24 - 43 %Bon SecRegency Hospital Cleveland WestLymphocytes/100 WBC (Bld)1.47 %Bon [facility]ullH (RBC) [Entitic mass]24.8 pgLow25.2 - 33.5 pgBon [facility] TrumbullHC (RBC) [Mass/Vol]30.9 g/dL28.4 - 34.8 g/dLBon SecSelect Medical Cleveland Clinic Rehabilitation Hospital, BeachwoodV (RBC) [Entitic vol]80.3 fLLow 82.6 - 102.[address] Charles HospitalMonocytes/100 WBC (Bld)9 %3 - 12 %[facility] HospitalMonocytes/100 WBC (Bld)0.72 %[facility] Neutrophils/100 WBC (Bld)62 %36 - 65 %[facility] HospitalNucleated RBC/100 WBC (Bld) [Ratio]0 %0.[address] Charles HospitalPlatelet mean volume (Bld) [Entitic vol]9.6 fL8.1 - 13.5 fLMartinsville Memorial HospitalPlatelets (Bld) [#/Vol]275 10*3/uLBon St. Charles HospitalRBC (Bld) [#/Vol]3.55 10*6/uLLow4.21 - 5.77 m/uLBon St. Charles HospitalRBC (Bld) [#/Vol]ANISOCYTOSIS PRESENT MICROCYTOSIS PRESENTBon St. Charles HospitalSegmented neutrophils/100 WBC (Bld) 5.08 %[facility] HospitalWBC other (Bld) [#/Vol]8.2Bon SecVernon Memorial HospitalCBC with Diffon 32-11-1034Met. Basophil0.15 k/uLNormal 0.00-0.20[facility] HospitalComment on above:Performed By: #### BMPX, CDP #### [employer] [address] Skin Pass Operator: Arthur Carvajal.Imm.Granulocyte0.03 k/uLNormal0.00-0.30[facility] HospitalComment on above:Performed By: #### BMPX, CDP #### [address] [address] Skin Pass Operator: Arthur Carvajal.Neutrophil (Seg)5.08 k/uLNormal1.50-8.10 [facility] HospitalComment on above:Performed By: #### BMPX, CDP #### [place] [address] Skin Pass Operator: Collin Augustin MDBasophils/100 WBC (Bld)2 %Normal0-2MSuburban Medical CenterComment on above:Performed By: #### BMPX, CDP #### [place] [address] Skin Pass Operator: Collin Augustin MDEosinophils (Bld) [#/Vol]0.70 10*3/uLHigh 0.00-0.44[facility] HospitalComment on above:Performed By: #### BMPX, CDP #### [address] [address] Skin Pass Operator: BLAKE Carvajalosinophils/100 WBC (Bld)9 %High1-4[facility] HospitalComment on above:Performed By: #### BMPX, CDP #### [address] [address] Skin Pass Operator: Collin Augustin MDErythrocyte distribution width (RBC) [Ratio]14.7 %High11.8-14.4[facility] HospitalComment on above:Performed By: #### BMPX, CDP #### [place] [address] Skin Pass Operator: Collin Augustin MDHematocrit (Bld) [Volume fraction]28.5 %Low 40.7-50.3[facility] hospitaly [facility], Memorial CampusComment on above:Performed By: #### BMPX, CDP #### [facility] [employer] [address] [place] [address] Skin Pass Operator: Collin Augustin MDHemoglobin (Bld) [Mass/Vol]8.8 g/dLLow13.0-17.0 [facility] HospitalComment on above:Performed By: #### BMPX, CDP #### [address] [address] Skin Pass Operator: Ewelina Carvajalmature granulocytes/100 WBC (Bld)0 %Normal0 [facility] HospitalComment on above:Performed By: #### BMPX, CDP #### [place] [address] Skin Pass Operator: Collin Augustin MDLymphocytes (Bld) [#/Vol]1.47 10*3/uLNormal 1.10-3.70[facility] HospitalComment on above:Performed By: #### BMPX, CDP #### [address] [address] Skin Pass Operator: Jimi Carvajalmphocytes/100 WBC (Bld)18 %Mgf39-74PxaqjOhio State East HospitalComment on above:Performed By: #### BMPX, CDP #### [address] [address] Skin Pass Operator: BARBARA CarvajalCH (RBC) [Entitic mass]24.8 pgLow25.2-33.5[facility] HospitalComment on above:Performed By: #### BMPX, CDP #### [address] [address] Skin Pass Operator: BARBARA CarvajalCHC (RBC) [Mass/Vol]30.9 g/tSOadpet38.4-34.8 [facility] HospitalComment on above:Performed By: #### BMPX, CDP #### [address] [address] Skin Pass Operator: BARBARA CarvajalCV (RBC) [Entitic vol]80.3 fLLow82.6-102.9[facility] HospitalComment on above:Performed By: #### BMPX, CDP #### [address] [address] Skin Pass Operator: BARBARA Carvajalonocytes (Bld) [#/Vol]0.72 10*3/uLNormal 0.10-1.20[facility] HospitalComment on above:Performed By: #### BMPX, CDP #### [address] [address] Skin Pass Operator: BARBARA Carvajalonocytes/100 WBC (Bld)9 %Normal3-12[facility] HospitalComment on above:Performed By: #### BMPX, CDP #### [address] [address] Skin Pass Operator: Collin Augustin MDNeutrophil (Seg)62 %Elszzd87-63ShnffOhio State East HospitalComment on above:Performed By: #### BMPX, CDP #### [address] [address] Skin Pass Operator: Collin Augustin MDNRBC Automated0.0 per 100 WBCNormal0.0[facility] HospitalComment on above:Performed By: #### BMPX, CDP #### [address] [address] Skin Pass Operator: NADYA Carvajallatelet mean volume (Bld) [Entitic vol]9.6 fL Normal8.1-13.5[facility] HospitalComment on above:Performed By: #### BMPX, CDP #### [facility] [employer] [address] [place] [address] Skin Pass Operator: NADYA Carvajallatelets (Bld) [#/Vol]275 10*3/bJIhzypc948-986 [facility] HospitalComment on above:Performed By: #### BMPX, CDP #### [facility] [address] [place] [address] Skin Pass Operator: GAB CarvajalBC (Bld) [#/Vol]3.55 10*6/uLLow4.21-5.77[facility] HospitalComment on above:Performed By: #### BMPX, CDP #### [address] [address] Skin Pass Operator: ABNER Carvajal morphology finding Nom (Bld)ANISOCYTOSIS PRESENTNormalOhio State East HospitalComment on above:Result Comment: MICROCYTOSIS PRESENTPerformed By: #### BMPX, CDP #### [address] [address] Skin Pass Operator: Collin Augustin MDWBC (Bld) [#/Vol]8.2 10*3/uLNormal3.5-11.3[facility], Memorial CampusComment on above:Performed By: #### BMPX, CDP #### [address] [address] Skin Pass Operator: Collin Augustin MDGlucose,Whole Bloodon 81-53-5179Whrtsgy [Mass/Vol]111 mg/xKApxr23-884BibnlOhio State East HospitalGlucose [Mass/Vol] 110 mg/wYRhbeea27-453QtmldOhio State East HospitalMagnesiumon 02-03-2025 Magnesium [Mass/Vol]2 mg/dL1.6 - 2.4 mg/dLBon St. Charles HospitalMagnesium [Mass/Vol]2.0 mg/dLNormal1.6-2.4[facility] HospitalComment on above:Performed By: #### BMPX, CDP #### [facility] [address] [place] [address] Skin Pass Operator: Collin Augustin MDNo Panel Informationon 04-95-3148Uiy [facility] Glucose Fingerstickon 26-32-8332Ihawqvu [Mass/Vol]111 mg/dLHigh 75 - 110 mg/dLBon St[address] Charles HospitalInterpretation and review of laboratory resultsAbnormalBon [facility]vera HealthGlucose [Mass/Vol]110 mg/dL75 - 110 mg/dLBon [facility] / Avera HealthBasic Metab w/rfx MGon 23-83-7033Vzlfz gap [Moles/Vol]13 mmol/LNormal9-16 [facility] HospitalComment on above:Performed By: #### TROPI BMPX #### [facility] [address] [place], [place] [address] Skin Pass Operator: BOUBACAR Carvajalalcium [Mass/Vol]7.9 mg/dLLow8.6-10.4[facility] HospitalComment on above:Performed By: #### TROPI BMPX #### [employer] [address] [place] [address] Skin Pass Operator: BOUBACAR Carvajalhloride [Moles/Vol]105 mmol/QMdqkqq33-535EfidxOhio State East HospitalComment on above:Performed By: #### TROPI, BMPX #### [facility] [address] [place] [address] Skin Pass Operator: Collin Augustin MDCO2 [Moles/Vol]21 mmol/WBwblxu93-64QqpbfOhio State East HospitalComment on above:Performed By: #### TROPI BMPX #### [employer] [address] [place] [address] Skin Pass Operator: BOUBACAR Carvajalreatinine [Mass/Vol]3.2 mg/dLHigh0.7-1.2MSuburban Medical CenterComment on above:Performed By: #### ANA BMPX #### [facility] [employer] [address] [place] [address] Skin Pass Operator: Collin Augustin MDGFR/1.73 sq M.predicted among non-blacks MDRD (S/P/Bld) [Vol rate/Area]21 mL/min/{1.73_m2}Low>60[facility] HospitalComment on above:Result Comment: These results are not intended for [...] or following therapy that affects renal tubular secretion.Performed By: #### ANA BMPX #### [facility] [employer] [address] [place] [address] Skin Pass Operator: Collin Augustin MDGlucose [Mass/Vol]111 mg/kBIvti61-35BwboySuburban Medical CenterComment on above:Performed By: #### ANA BMPX #### [facility] [employer] [address] [place] [address] Skin Pass Operator: Collin Augustin MDPotassium [Moles/Vol]4.1 mmol/LNormal3.7-5.3 [facility] HospitalComment on above:Performed By: #### ANA BMPX #### [facility] [employer] [address] [place] [address] Skin Pass Operator: Collin Augustin MDSodium [Moles/Vol]139 mmol/NGosafx375-705BwpsgOhio State East HospitalComment on above:Performed By: #### TROPI, BMPX #### [facility] [address] [place] [address] Skin Pass Operator: Collin Augustin MDUrea nitrogen [Mass/Vol]30 mg/dLHigh8-23[facility] Memorial CampusComment on above:Performed By: #### TERE PEREZX #### [employer] [address] [place], [place] [phone] Skin Pass Operator: Collin uAgustin MDBasic Metabolic Panel w/ Reflex to MGon 74-25-6489Vgkbk gap [Moles/Vol]13 mmol/L9 - 16 mmol/LBon [facility] Calcium [Mass/Vol]7.9 mg/dLLow8.6 - 10.4 mg/dLBon Secours Mercy HealthChloride [Moles/Vol]105 mmol/L98 - 107 mmol/LBon Secours Mercy HealthCO2 [Moles/Vol]21 mmol/L20 - 31 mmol/LBon Secours [facility] HealthCreatinine [Mass/Vol]3.2 mg/dLHigh 0.7 - 1.2 mg/dLBon Secours Mercy HealthEst, Glom Filt Wkst60Cha- PINFBon Secours On The Net Yety HealthComment on above: These results are not intended [...] therapy that affects renal tubular secretion. Glucose [Mass/Vol]111 mg/jVWalm71 - 99 mg/dLBon Secours Mercy HealthPotassium [Moles/Vol]4.1 mmol/L3.7 - 5.3 mmol/LBon Secours Mercy HealthSodium [Moles/Vol] 139 mmol/L136 - 145 mmol/LBon Secours [facility] HealthUrea nitrogen [Mass/Vol]30 mg/dLHigh8 - 23 mg/dLBon Secours [facility] [employer] [facility] iBioCBC with Auto Differentialon [id number] (Bld) [#/Vol]0.17 10*3/uLBon Secours [facility] Basophils/100 WBC (Bld)2 %0 - 2 %[facility] HealthEosinophils (Bld) [#/Vol]0.67 10*3/uLHighBon Secours Mercy HealthEosinophils/100 WBC (Bld)7 %High1 - 4 %[facility] HealthErythrocyte distribution width (RBC) [Ratio]15 % High11.8 - 14.4 %[facility] HealthHematocrit (Bld) [Volume fraction]27.5 %Low40.7 - 50.3 %[facility] HealthHemoglobin (Bld) [Mass/Vol]8.5 g/dLLow 13.0 - 17.0 g/dLBon Secours Mercy HealthImmature granulocytes (Bld) [#/Vol]0.04 10*3/uLBon Secours [facility] HealthImmature granulocytes/100 WBC (Bld)0 %0[facility] HealthInterpretation and review of laboratory resultsAbnormalBon Secours Mercy HealthLymphocytes/100 WBC (Bld)12 %Low24 - 43 %[facility] HealthLymphocytes/100 WBC (Bld)1.16 %[facility] CenterH (RBC) [Entitic mass]24.4 pgLow25.2 - 33.5 pgBon Secours [facility] Hospitaly [facility] CenterHC (RBC) [Mass/Vol]30.9 g/dL28.4 - 34.8 g/dLBon Secours [facility] OhioV (RBC) [Entitic vol]79 fLLow82.6 - 102.9 fLBon Secours Mercy HealthMonocytes/100 WBC (Bld)8 %3 - 12 %[facility] HealthMonocytes/100 WBC (Bld)0.72 %[facility] HealthNeutrophils/100 WBC (Bld)71 %High36 - 65 %[facility] HealthNucleated RBC/100 WBC (Bld) [Ratio]0 %0.0 per 100 WBCBon Secours [facility] Hospitaly HealthPlatelet mean volume (Bld) [Entitic vol]9.6 fL8.1 - 13.5 fLBon Secours [facility] Hospitaly HealthPlatelets (Bld) [#/Vol] 283 10*3/uLBon [facility] (Bld) [#/Vol]3.48 10*6/uLLow4.21 - 5.77 m/uLBon [facility] (Bld) [#/Vol]ANISOCYTOSIS PRESENT MICROCYTOSIS [facility] Hospitalgmented neutrophils/100 WBC (Bld)6.87 %Bon [facility]. Charles HospitalWBC other (Bld) [#/Vol]9.6Bon [facility] with Diffon [id number]. Basophil0.17 k/uLNormal 0.00-0.20[facility] HospitalComment on above:Performed By: #### ANA BMPX #### [facility] [address] [place] [address] Skin Pass Operator: MDAbs. AlenaImm.Granulocyte0.04 k/uLNormal0.00-0.30[facility] HospitalComment on above:Performed By: #### ANA BMPX #### [facility] [address] [place] [address] Skin Pass Operator: Arthur Carvajal.Neutrophil (Seg)6.87 k/uLNormal1.50-8.10 [facility] HospitalComment on above:Performed By: #### ANA BMPX #### [facility] [address] [place] [address] Skin Pass Operator: Collin Augustin MDBasophils/100 WBC (Bld)2 %Normal0-2MercPatton State HospitalComment on above:Performed By: #### TROPLopez BMPX #### [facility] [address] [place] [address] Skin Pass Operator: Collin Augustin MDEosinophils (Bld) [#/Vol]0.67 10*3/uLHigh 0.00-0.44[facility] HospitalComment on above:Performed By: #### TROPLopez BMPX #### [facility] [address] [place] [address] Skin Pass Operator: Collin Augustin MDEosinophils/100 WBC (Bld)7 %High1-4[facility] HospitalComment on above:Performed By: #### ANA BMPX #### [address] [address] Skin Pass Operator: Collin Augustin MDErythrocyte distribution width (RBC) [Ratio]15.0 %High11.8-14.4[facility] HospitalComment on above:Performed By: #### ANA BMPX #### [address] [address] Skin Pass Operator: Collin Augustin MDHematocrit (Bld) [Volume fraction]27.5 %Low 40.7-50.3[facility] hospitaly [facility], Memorial CampusComment on above:Performed By: #### ANA BMPX #### [address] [address] Skin Pass Operator: Collin Augustin MDHemoglobin (Bld) [Mass/Vol]8.5 g/dLLow13.0-17.0 [facility] HospitalComment on above:Performed By: #### ANA BMPX #### [address] [address] Skin Pass Operator: Collin Augustin MDImmature granulocytes/100 WBC (Bld)0 %Normal0 [facility] HospitalComment on above:Performed By: #### ANA BMPX #### [address] [address] Skin Pass Operator: Collin Augustin MDLymphocytes (Bld) [#/Vol]1.16 10*3/uLNormal 1.10-3.70[facility] HospitalComment on above:Performed By: #### TROPI, BMPX #### [address] [address] Skin Pass Operator: Collin Augustin MDLymphocytes/100 WBC (Bld)12 %Zzm21-90OwlfzOhio State East HospitalComment on above:Performed By: #### TROPLopez, BMPX #### [place] [address] Skin Pass Operator: BARBARA CarvajalCH (RBC) [Entitic mass]24.4 pgLow25.2-33.5[facility] HospitalComment on above:Performed By: #### ANA, BMPX #### [place] [address] Skin Pass Operator: BARBARA CarvajalCHC (RBC) [Mass/Vol]30.9 g/oFApbtia29.4-34.8 [facility] HospitalComment on above:Performed By: #### ANA, BMPX #### [place] [address] Skin Pass Operator: BARBARA CarvajalCV (RBC) [Entitic vol]79.0 fLLow82.6-102.9[facility] HospitalComment on above:Performed By: #### ANA, BMPX #### [place] [address] Skin Pass Operator: Collin Augustin MDMonocytes (Bld) [#/Vol]0.72 10*3/uLNormal 0.10-1.20[facility] HospitalComment on above:Performed By: #### TROPI, BMPX #### [address] [address] Skin Pass Operator: BARBARA Carvajalonocytes/100 WBC (Bld)8 %Normal3-12[facility] HospitalComment on above:Performed By: #### TROPI, BMPX #### [facility] [address] [place] [address] Skin Pass Operator: Adebayo Carvajalophil (Seg)71 %Xozv70-14OdjwqOhio State East HospitalComment on above:Performed By: #### TROPI, BMPX #### [address] [address] Skin Pass Operator: Collin Augustin MDNRBC Automated0.0 per 100 WBCNormal0.0[facility] HospitalComment on above:Performed By: #### TROPI, BMPX #### [facility] [address] [place] [address] Skin Pass Operator: Asa Carvajal mean volume (Bld) [Entitic vol]9.6 fL Normal8.1-13.5[facility] HospitalComment on above:Performed By: #### TROPI, BMPX #### [address] [address] Skin Pass Operator: Ghislaine Carvajaltehailey (Bld) [#/Vol]283 10*3/oWFakxrl192-123 [facility] HospitalComment on above:Performed By: #### TROPI, BMPX #### [address] [address] Skin Pass Operator: GAB CarvajalBC (Bld) [#/Vol]3.48 10*6/uLLow4.21-5.77[facility] HospitalComment on above:Performed By: #### TROPI, BMPX #### [facility] [address] [place] [address] Skin Pass Operator: ABNER Carvajal morphology finding Nom (Bld)ANISOCYTOSIS PRESENTNormalOhio State East HospitalComment on above:Result Comment: MICROCYTOSIS PRESENTPerformed By: #### TROPI, BMPX #### [facility] [address] [place], [place] [phone] Skin Pass Operator: Collin Augustin MDMONTEFIORE NEW ROCHELLE [facility] ([facility]) [#/Vol]9.6 10*3/uLNormal3.5-11.3[facility], Memorial CampusComment on above:Performed By: #### ANA, BMPX #### [facility] [address] [place] [phone] Skin Pass Operator: Collin Augustin MDGlucose,Whole Bloodon 63-21-0817Mrlores [Mass/Vol]128 mg/tDDwgl76-166YixqdOhio State East HospitalGlucose [Mass/Vol] 131 mg/vIQgyu52-721GijajOhio State East HospitalGlucose [Mass/Vol]122 mg/dL Ufaa77-053ZnfmbOhio State East HospitalGlucose [Mass/Vol]111 mg/iZYbtq82-581 [facility] HospitalMagnesiumon 45-97-5121Qkhdtrwqw [Mass/Vol]1.5 mg/dLLow1.6 - 2.4 mg/dLBon St. Charles HospitalMagnesium [Mass/Vol]1.5 mg/dLLow 1.6-2.4[facility] HospitalComment on above:Performed By: #### ANA, BMPX #### [facility] [address] [place] [phone] Skin Pass Operator: Collin Augustin MDNo Panel Informationon [id number] and review of laboratory resultsAbnormalBon Secours Health SystemPOC Glucose Fingerstickon 25-48-3443Xtmnjog [Mass/Vol]128 mg/dLHigh 75 - 110 mg/dLBon St. Charles HospitalInterpretation and review of laboratory resultsAbnormalBon [facility]ver[facility] HealthGlucose [Mass/Vol]131 mg/lMZbne09 - 110 mg/dLBon St. Charles HospitalInterpretation and review of laboratory resultsAbnormalBon Secours Mercy HealthBon Secours Mercy HealthGlucose [Mass/Vol]122 mg/pFEjie90 - 110 mg/dLBon [facility] Interpretation and review of laboratory resultsAbnormalMartinsville Memorial Hospital Bon [facility] Charles HospitalGlucose [Mass/Vol]111 mg/sPAtph53 - 110 mg/dLBon St. Charles HospitalInterpretation and review of laboratory resultsAbnormalBon Secours Health SystemAPTTon 37-79-6530hRGU Coag (Bld) [Time]30.[address] Charles HospitalComment on above: IV Heparin Therapy Range: 66.0-92.0 sec aPTT Coag (Bld) [Time]30.2 fGyirod47.0-36.5[facility] Comment on above:Result Comment: IV Heparin Therapy Range: 66.0-92.0 secPerformed By: #### BMPX, CDP #### [employer] [address] [place], [place] [phone] Skin Pass Operator: Clarissa Carvajal Metab w/rfx MGon 77-66-6804Ffljk gap [Moles/Vol]12 mmol/LNormal9-16[facility] HospitalComment on above: Performed By: #### TROPLopez BMPX #### [employer] [address] [place] [address] Skin Pass Operator: BOUBACAR Carvajalalcium [Mass/Vol]8.0 mg/dLLow8.6-10.4[facility] HospitalComment on above:Performed By: #### TROPI, BMPX #### [employer] [address] [place] [address] Skin Pass Operator: BOUBACAR Carvajalhloride [Moles/Vol]107 mmol/JWmzblo27-239OwcvvOhio State East HospitalComment on above:Performed By: #### TROPI, BMPX #### [facility] [address] [place] [address] Skin Pass Operator: BOUBACAR CarvajalO2 [Moles/Vol]21 mmol/JUglgeh56-87JqjmkOhio State East HospitalComment on above:Performed By: #### ANA BMPX #### [facility] [address] [place] [address] Skin Pass Operator: BOUBACAR Carvajalreatinine [Mass/Vol]4.1 mg/dLHigh0.7-1.2MSuburban Medical CenterComment on above:Performed By: #### ANA, BMPX #### [facility] [address] [place] [address] Skin Pass Operator: Collin Augustin MDGFR/1.73 sq M.predicted among non-blacks MDRD (S/P/Bld) [Vol rate/Area]16 mL/min/{1.73_m2}Low>60[facility] HospitalComment on above:Result Comment: These results are not intended for [...] or following therapy that affects renal tubular secretion.Performed By: #### ANA BMPX #### [facility] [address] [place] [address] Skin Pass Operator: Collin Augustin MDGlucose [Mass/Vol]108 mg/dFUzsd84-89TsubhSuburban Medical CenterComment on above:Performed By: #### ANA BMPX #### [facility] [address] [place] [address] Skin Pass Operator: Collin Augustin MDPotassium [Moles/Vol]4.0 mmol/LNormal3.7-5.3 [facility] HospitalComment on above:Performed By: #### ANA BMPX #### [facility] [address] [place] [address] Skin Pass Operator: Collin Augustin MDSodium [Moles/Vol]140 mmol/JCuwjod733-395GicoiOhio State East HospitalComment on above:Performed By: #### TERE PEREZX #### [facility] [address] [place], [place] [phone] Skin Pass Operator: Collin Augustin MDUrea nitrogen [Mass/Vol]36 mg/dLHigh8-23[facility] HospitalComment on above:Performed By: #### ANA BMPX #### [facility] [address] [place], [place] [phone] Skin Pass Operator: Collin Augustin MDThe Hospital Of Central [facility] Metabolic Panel w/ Reflex to MGon 78-73-0536Umnji gap [Moles/Vol]12 mmol/L9 - 16 mmol/LBon [facility] Calcium [Mass/Vol]8 mg/dLLow8.6 - 10.4 mg/dLBon [facility] HealthCareChloride [Moles/Vol]107 mmol/L98 - 107 mmol/LBon SecDisplayLinkCO2 [Moles/Vol]21 mmol/L20 - 31 mmol/LBon SecDisplayLinkCreatinine [Mass/Vol]4.1 mg/dLHigh 0.7 - 1.2 mg/dLBon [facility] HealthCareEst, Glom Filt Ykzu55Idz- PINFBon Arlington HealthCareComment on above: These results are not intended [...] therapy that affects renal tubular secretion. Glucose [Mass/Vol]108 mg/wAIptx05 - 99 mg/dLBon [facility] Interpretation and review of laboratory resultsAbnormalBon [facility] HospitalDisplayLink Potassium [Moles/Vol]4 mmol/L3.7 - 5.3 mmol/LBon SecDisplayLinkSodium [Moles/Vol]140 mmol/L136 - 145 mmol/LBon SecDisplayLinkUrea nitrogen [Mass/Vol]36 mg/dLHigh8 - 23 mg/dLBon SecRegency Hospital Cleveland WestBon SecRegency Hospital Cleveland WestCBC with Auto Differentialon [id number] (Bld) [#/Vol]0.14 10*3/uL Bon [facility] Charles HospitalImmature granulocytes (Bld) [#/Vol]0.04 10*3/uLBon [facility] HealthInterpretation and review of laboratory resultsAbnormalBon St. Charles HospitalLymphocytes/100 WBC (Bld)1.71 %[facility] Monocytes/100 WBC (Bld)0.7 %[facility] HospitalNeutrophils/100 WBC (Bld)69 %High36 - 65 %[facility] HospitalNucleated RBC/100 WBC (Bld) [Ratio]0 %0.[address] Charles HospitalRBC (Bld) [#/Vol]ANISOCYTOSIS PRESENT MICROCYTOSIS PRESENTBon St. Charles HospitalSegmented neutrophils/100 WBC (Bld) 7.25 %[facility] HospitalWBC other (Bld) [#/Vol]10.6Bon [address] Michael HospitalCBC with Diffon 17-10-1488Dfdfqhkqk/100 WBC (Bld)1 %Normal0-2Bon [facility] Charles HospitalComment on above:Performed By: #### TROPLopez BMPX #### [employer] [address] [place] [address] Skin Pass Operator: BLAKE Carvajalosinophils (Bld) [#/Vol]0.72 10*3/uLHigh 0.00-0.44Bon [facility] Charles HospitalComment on above:Performed By: #### TROPI BMPX #### [employer] [address] [place] [address] Skin Pass Operator: BLAKE Carvajalosinophils/100 WBC (Bld)7 %High1-4Bon SecOchsner Medical Center HealthComment on above:Performed By: #### TROPI BMPX #### [employer] [address] [place] [address] Skin Pass Operator: Collin Augustin MDErythrocyte distribution width (RBC) [Ratio]15.1 %High11.8-14.4Bon [facility] Charles HospitalComment on above:Performed By: #### ANA BMPX #### [address] [address] Skin Pass Operator: Collin Augustin MDHematocrit (Bld) [Volume fraction]28.5 %Low 40.7-50.3Bon [facility]. Charles HospitalComment on above:Performed By: #### ANA BMPX #### [place] [address] Skin Pass Operator: Collin Augustin MDHemoglobin (Bld) [Mass/Vol]8.8 g/dLLow13.0-17.[address] [facility] HospitalComment on above:Performed By: #### ANA BMPX #### [facility] [address] [place] [address] Skin Pass Operator: Collin Augustin MDImmature granulocytes/100 WBC (Bld)0 %Bhvqsu0Tas St. Charles HospitalComment on above:Performed By: #### ANA BMPX #### [facility] [address] [place] [address] Skin Pass Operator: Collin Augustin MDLymphocytes/100 WBC (Bld)16 %Gvi10-29Evw St. Charles HospitalComment on above:Performed By: #### TROPLopez BMPX #### [facility] [address] [place] [address] Skin Pass Operator: BARBARA CarvajalCH (RBC) [Entitic mass]24.5 pgLow25.2-33.5Bon [facility] Charles HospitalComment on above:Performed By: #### TROPLopez BMPX #### [facility] [address] [place] [address] Skin Pass Operator: Collin Madoff, MDMCHC (RBC) [Mass/Vol]30.9 g/sLOetiyi77.4-34.8Bon [facility] HealthComment on above:Performed By: #### ANA, BMPX #### [facility] [address] [place] [address] Skin Pass Operator: Collin Augustin MDMCV (RBC) [Entitic vol]79.4 fLLow82.6-102.9Bon [facility] HealthComment on above:Performed By: #### TROPI, BMPX #### [facility] [address] [place] [address] Skin Pass Operator: Collin Augustin MDMonocytes/100 WBC (Bld)7 %Normal3-12Bon [facility] Charles HospitalComment on above:Performed By: #### ANA, BMPX #### [facility] [address] [place] [address] Skin Pass Operator: NADYA Carvajallatelet mean volume (Bld) [Entitic vol]9.3 fL Normal8.1-13.5Bon [facility]. Charles HospitalComment on above:Performed By: #### ANA BMPX #### [facility] [address] [place] [address] Skin Pass Operator: Collin Augustin MDPlatelets (Bld) [#/Vol]319 10*3/xOWjflhf554-357 Bon [facility] HealthComment on above:Performed By: #### TROPLopez, BMPX #### [facility] [address] [place] [address] Skin Pass Operator: Collin Augustin MDRBC (Bld) [#/Vol]3.59 10*6/uLLow4.21-5.77Bon [facility] Charles HospitalComment on above:Performed By: #### TROPI, BMPX #### [facility] [address] [place] [address] Skin Pass Operator: Arthur Carvajal. Basophil0.14 k/uLNormal0.00-0.20[facility] HospitalComment on above:Performed By: #### ANA BMPX #### [facility] [address] [place] [address] Skin Pass Operator: MDAbs. AlenaImm.Granulocyte0.04 k/uLNormal0.00-0.30[facility] HospitalComment on above:Performed By: #### ANA, BMPX #### [facility] [address] [place] [address] Skin Pass Operator: MDAbs. AlenaNeutrophil (Seg)7.25 k/uLNormal1.50-8.10 [facility] HospitalComment on above:Performed By: #### ANA, BMPX #### [facility] [address] [place] [address] Skin Pass Operator: Collin Augustin MDLymphocytes (Bld) [#/Vol]1.71 10*3/uLNormal 1.10-3.70[facility] HospitalComment on above:Performed By: #### ANA BMPX #### [facility] [address] [place] [address] Skin Pass Operator: BARBARA Carvajalonocytes (Bld) [#/Vol]0.70 10*3/uLNormal 0.10-1.20[facility] HospitalComment on above:Performed By: #### TROPI, BMPX #### [facility] [address] [place] [address] Skin Pass Operator: Collin Augustin MDNeutrophil (Seg)69 %Rfow17-03UyfqwOhio State East HospitalComment on above:Performed By: #### TROPI, BMPX #### [facility] [address] [place] [address] Skin Pass Operator: Collin Augustin MDNRBC Automated0.0 per 100 WBCNormal0.0[facility] HospitalComment on above:Performed By: #### TROPI, BMPX #### [facility] [address] [place] [address] Skin Pass Operator: ABNER Carvajal morphology finding Nom (Bld)ANISOCYTOSIS PRESENTNormalOhio State East HospitalComment on above:Result Comment: MICROCYTOSIS PRESENTPerformed By: #### TROPI, BMPX #### [facility] [address] [place] [address] Skin Pass Operator: Collin Augustin MDWBC (Bld) [#/Vol]10.6 10*3/uLNormal3.5-11.3[facility]y [facility], Memorial CampusComment on above:Performed By: #### TROPI, BMPX #### [employer] [address] [place] [address] Skin Pass Operator: Collin Augustin MDElectrophoresis Protein, Serumon 02-01-2025 Albumin %47 %Low56 - 66 %[facility]y HealthAlbumin [Mass/Vol]3.3 g/dL3.2 - 5.2 g/dLBon SecHarborview Medical Centery HealthAlpha 1 globulin Elph [Mass/Vol]0.6 g/dLHigh0.1 - 0.4 g/dLBon SecOchsner Medical Center HealthAlpha 1 globulin Elph [Mass/Vol]9 %High3 - 5 %[facility] HealthAlpha 2 %13 %High7 - 12 %[facility] HealthAlpha 2 globulin Elph [Mass/Vol]0.9 g/dL0.5 - 0.9 g/dLBon Secours The Christ Hospitaly HealthBeta globulin Elph [Mass/Vol]1.0 g/dL0.7 - 1.4 g/dLBon Secours Mercy HealthBeta globulin Elph [Mass/Vol]14 %High8 - 13 %[facility]y HealthGamma Globulin % 18 %11 - 19 %[facility]y HealthGamma globulin Elph [Mass/Vol]1.2 g/dL0.5 - 1.5 g/dLBon Secours The Christ Hospitaly HealthInterpretation and review of laboratory results AbnormalMartinsville Memorial HospitalPathologist Cyto stain Nom (Cvx/Vag) [ID] Reviewed by pathologist: Corinna Vanessa M.D.[facility] Memorial HospitalProtein [Mass/Vol]7 g/dL6.6 - 8.7 g/[facility] Medical CenterProtein Fractions [Interp] Alpha 1 globulins are elevated. Usually occurs with acute phaseMartinsville Memorial HospitalComment on above:response. May be observed in a variety of conditions associated with acute tissue damage/necrosis and/or acute infection/inflammation. Immunotyping is negative for monoclonal immunoglobulin. Total Prot. Sum7 g/dL6.3 - 8.2 g/dLBon St. Charles HospitalTotal Prot. Sum,%101 %98 - 102 %[facility] Health SystemFLUORO FOR SURGICAL PROCEDURESon 25-42-0541PGPKKG FOR SURGICAL PROCEDURESRadiology exam is complete. No Radiologist dictation. Please follow up with ordering provider. Final resultNormalMercy Centinela [facility], Memorial CampusGlucose,Whole Bloodon 58-03-5086Gnffgqt [Mass/Vol]213 mg/jMLgmr18-798Qhogd [facility] Glucose [Mass/Vol]90 mg/aKMyomed63-244JfmxnOhio State East HospitalGlucose [Mass/Vol]107 mg/vKCssswg55-517Fuhgs [facility], Memorial CampusGlucose [Mass/Vol]120 mg/fHNsmv73-451Btdiw [facility], Memorial CampusGlucose [Mass/Vol] 165 mg/lQNrjh73-587MfdylOhio State East HospitalGuidance-- during surgeryon 59-07-7526Torcboigi exam is complete. No Radiologist dictation. Please follow up with ordering provider. [facility] RIS CONSOLIDATEDImmunotyping, Serumon [id number] Interpretation Immunotyping is negative for monoclonal immunoglobulin.[facility] Pathologist review [place] (Unsp spec) [Interp]Reviewed by pathologist: Corinna Vanessa M.D.[facility] Immunotyping,Bloodon [id number] - Interpret.Immunotyping is negative for monoclonal immunoglobulin.NormalOhio State East HospitalComment on above:Performed By: #### BMPX, CDP, MG #### [facility] [address] [place] [address] Skin Pass Operator: JOSSELYN CarvajalOLOGIST REVIEWReviewed by pathologist: Corinna Vanessa M.D.[facility] HospitalComment on above: Performed By: #### BMPX, CDP, MG #### [facility] [address] [place], [place] [phone] Skin Pass Operator: Collin Augustin MDNo Panel Informationon 90-94-3701Y[facility] Glucose Fingerstickon 54-51-1428Khpuqpq [Mass/Vol]213 mg/dLHigh 75 - 110 mg/dLBon [address] Charles HospitalInterpretation and review of laboratory resultsAbBennett County Hospital and Nursing HomeGlucose [Mass/Vol]90 mg/dL75 - 110 mg/dLBon [facility] Glucose [Mass/Vol]107 mg/dL75 - 110 mg/dLBon [facility] HealthGlucose [Mass/Vol]120 mg/iIFznm41 - 110 mg/dLBon St. Charles HospitalInterpretation and review of laboratory resultsAbBennett County Hospital and Nursing HomeGlucose [Mass/Vol]165 mg/nCDcpt23 - 110 mg/dLBon St. Charles HospitalInterpretation and review of laboratory resultsAbAvera Sacred [facility] Hospital 06-39-7240DWB Coag (PPP) [Relative time]1.1 {INR}[facility] HospitalComment on above: Result Comment: Therapeutic Range: Moderate Anticoagulant Intensity: INR = 2.0-3.0 High Anticoagulant Intensity: INR = 2.5-3.5Performed By: #### BMPX, CDP #### [facility] [address] [place], [place] [phone] Skin Pass Operator: NOELLE Carvajal Coag (PPP) [Time]14.4 hDotjyv91.7-14.9[facility] HospitalComment on above:Performed By: #### BMPX, CDP #### [employer] [address] [place] [address] Skin Pass Operator: MDProt. Alena Kurt Blon 94-27-6592Atngelmobfr Review:Reviewed by pathologist: Corinna Vanessa M.D.NormalOhio State East HospitalComment on above:Performed By: #### BMPX, CDP, MG #### [employer] [address] [place] [address] Skin Pass Operator: Francesco Carvajal. Elect-InterpAlpha 1 globulins are elevated. Usually occurs with acute phaseNormalOhio State East Hospital Comment on above:Result Comment: response. May be observed in a variety of conditions associated with acute tissue damage/necrosis and/or acute infection/inflammation. Immunotyping is negative for monoclonal immunoglobulin.Performed By: #### BMPX, MARIELOS, MG #### [employer] [address] [place], [place] [id number] Skin Pass Operator: Page Carvajal-INRon [id number] Coag (PPP) [Relative time]1.1 {INR}[facility] on above: Therapeutic Range: Moderate Anticoagulant Intensity: INR = 2.0-3.0 High Anticoagulant Intensity: INR = 2.5-3.5 PT Coag (PPP) [Time]14.[address] Charles HospitalANAon 85-65-5211AZL double strand IgG IA Ql (S)NINFBLifePoint Hospitals on above: Reference Range: <10.0 Negative 10.0-15.0 Equivocal >15.0 Positive Nuclear Ab IA Ql (S)NegativeNEGATIVEMartinsville Memorial HospitalNuclear IgG IA (S) [Ratio]0.2 U/mLNINF - 0.7 U/mLBon St. Charles HospitalComascension [facility] on above: Reference Range: <0.7 Negative 0.7-1.0 Equivocal >1.0 Positive LENNIE Screen includes U1RNP,RNP70,Sm,Ro(SS-A),La(SS-B),CENP,Scl-70,Jossy-1 JOSE Screenon 94-71-0484WDW ScreenNegativeNormalNEGOhio State East HospitalComment on above:Performed By: #### MARIELOS MCKEON MG #### [employer] [address] [place], [place] [phone] Skin Pass Operator: Stacey Carvajal-dsDNA<0.5Normal<10.0Ohio State East HospitalComment on above:Result Comment: Reference Range: <10.0 Negative 10.0-15.0 Equivocal >15.0 PositivePerformed By: #### MARIELOS MCKEON, MG #### [employer] [address] [place] [address] Skin Pass Operator: Collin Augustin MDENA Screen0.2 U/mLNormal<0.7Ohio State East HospitalComment on above:Result Comment: Reference Range: <0.7 Negative 0.7-1.0 Equivocal >1.0 Positive LENNIE Screen includes U1RNP,RNP70,Sm,Ro(SS-A),La(SS-B),CENP,Scl-70,Jossy-1Performed By: #### MARIELOS MCKEON, MG #### [employer] [address] [place], [place] [phone] Skin Pass Operator: Stacey Carvajal-Neutrophilic Cytoplasmic Antibodyon [id number] MyeloperoxidaseAU/mL0.0 - 3.5 AU/mLMartinsville Memorial Hospital Comment on above: Reference Range: <3.5 Negative 3.5-5.0 Equivocal >5.0 Positive ANCA Proteinase 3AU/mL0.0 - 2.0 AU/mLMartinsville Memorial HospitalComment on above: Reference Range: <2.0 Negative 2.0-3.0 Equivocal >3.0 Positive Basic Metab w/rfx MGon 24-25-7468Fmime gap [Moles/Vol]16 mmol/LNormal9-16Ohio [facility] HospitalComment on above:Performed By: #### BMPX, CDP #### [facility] [address] [place] [address] Skin Pass Operator: BOUBACAR Carvajalalcium [Mass/Vol]8.3 mg/dLLow8.6-10.4Ohio [facility] East HospitalComment on above:Performed By: #### BMPX, CDP #### [facility] [address] [place] [address] Skin Pass Operator: BOUBACAR Carvajalhloride [Moles/Vol]101 mmol/URcyoso14-007BcsugOhio State East HospitalComment on above:Performed By: #### BMPX, CDP #### [facility] [address] [place] [address] Skin Pass Operator: Collin Augustin MDCO2 [Moles/Vol]20 mmol/ADjgajd51-20XypgzOhio State East HospitalComment on above:Performed By: #### BMPX, CDP #### [facility] [address] [place] [address] Skin Pass Operator: BOUBACAR Carvajalreatinine [Mass/Vol]5.7 mg/dLCritically high 0.7-1.2MSuburban Medical CenterComment on above:Result Comment: Previous Alert Value ReportedPerformed By: #### BMPX, CDP #### [facility] [address] [place] [address] Skin Pass Operator: Collin Augustin MDGFR/1.73 sq M.predicted among non-blacks MDRD (S/P/Bld) [Vol rate/Area]11 mL/min/{1.73_m2}Low>60Ohio State East HospitalComment on above:Result Comment: These results are not intended for [...] or following therapy that affects renal tubular secretion.Performed By: #### BMPX, CDP #### [facility] [address] [place] [address] Skin Pass Operator: Collin Augustin MDGlucose [Mass/Vol]134 mg/iAYjto65-39JlvjoSuburban Medical CenterComment on above:Performed By: #### BMPX, CDP #### [facility] [address] [place] [address] Skin Pass Operator: Collin Augustin MDPotassium [Moles/Vol]3.9 mmol/LNormal3.7-5.3 [facility] HospitalComment on above:Performed By: #### BMPX, CDP #### [facility] [address] [place] [address] Skin Pass Operator: IRENE Carvajalodium [Moles/Vol]137 mmol/XRhutno775-118NgodfOhio State East HospitalComment on above:Performed By: #### BMPX, CDP #### [facility] [address] [place] [address] Skin Pass Operator: Collin Augustin MDUrea nitrogen [Mass/Vol]50 mg/dLRaleigh General Hospital8-23Ohio [facility] East HospitalComment on above:Performed By: #### BMPX, CDP #### [address] [address] Skin Pass Operator: Collin Augustin MDThe Hospital Of [facility] Metabolic Panel w/ Reflex to MGon 76-80-0288Qvmzt gap [Moles/Vol]16 mmol/L9 - 16 mmol/LBon Secours [facility] Calcium [Mass/Vol]8.3 mg/dLLow8.6 - 10.4 mg/dLBon Secours Mercy HealthChloride [Moles/Vol]101 mmol/L98 - 107 mmol/LBon Secours Mercy HealthCO2 [Moles/Vol]20 mmol/L20 - 31 mmol/LBon Secours Mercy HealthCreatinine [Mass/Vol]5.7 mg/dL Critically high0.7 - 1.2 mg/dLBon St. Charles HospitalComment on above:Previous Alert Value ReportedTruong Alcocert Avud43Vwu- PINFBon St. [facility] Hospital Comment on above: These results are [...] therapy that affects renal tubular secretion. Glucose [Mass/Vol]134 mg/qHBcax48 - 99 mg/dLBon [facility] Interpretation and review of laboratory resultsAbnormalMartinsville Memorial Hospital Potassium [Moles/Vol]3.9 mmol/L3.7 - 5.3 mmol/LBon St. Charles HospitalSodium [Moles/Vol]137 mmol/L136 - 145 mmol/LBon St. Charles HospitalUrea nitrogen [Mass/Vol]50 mg/dLHigh8 - 23 mg/dLBon [facility] HealthCBC with Auto Differentialon 26-25-2623Cxjyjgips (Bld) [#/Vol]0.15 10*3/uL [facility] HospitalBasophils/100 WBC (Bld)1 %0 - 2 %[facility] HospitalEosinophils (Bld) [#/Vol]0.22 10*3/uLMartinsville Memorial Hospital Eosinophils/100 WBC (Bld)2 %1 - 4 %[facility]ville Memorial HospitalErythrocyte distribution width (RBC) [Ratio]15.2 %High11.8 - 14.4 %[facility] Hematocrit (Bld) [Volume fraction]32.1 %Low40.7 - 50.3 %[facility] Hemoglobin (Bld) [Mass/Vol]9.8 g/dLLow13.0 - 17.0 g/dLBon [facility] Immature granulocytes (Bld) [#/Vol]0.05 10*3/uLMartinsville Memorial HospitalImmature granulocytes/100 WBC (Bld)0 %0Martinsville Memorial HospitalInterpretation and review of laboratory resultsAbnormalMartinsville Memorial HospitalLymphocytes/100 WBC (Bld)12 %Low24 - 43 %[facility] HospitalLymphocytes/100 WBC (Bld)1.39 %[facility] HospitalH (RBC) [Entitic mass]24 pgLow25.2 - 33.5 pgWarren Memorial HospitalHC (RBC) [Mass/Vol]30.5 g/dL28.4 - 34.8 g/dLBon [facility] Hospital - TrumbullV (RBC) [Entitic vol]78.7 fLLow82.6 - 102.9 fLMartinsville Memorial Hospital Monocytes/100 WBC (Bld)8 %3 - 12 %[facility] HospitalMonocytes/100 WBC (Bld)0.93 %[facility] Memorial HospitalNeutrophils/100 WBC (Bld)77 %High36 - 65 %[facility] HospitalNucleated RBC/100 WBC (Bld) [Ratio]0 %0.0 per 100 WBCMartinsville Memorial HospitalPlatelet mean volume (Bld) [Entitic vol]9 fL8.1 - 13.5 fLMartinsville Memorial HospitalPlatelets (Bld) [#/Vol]345 10*3/uLMartinsville Memorial Hospital RBC (Bld) [#/Vol]4.08 10*6/uLLow4.21 - 5.77 m/uLMartinsville Memorial HospitalRBC (Bld) [#/Vol]ANISOCYTOSIS PRESENT MICROCYTOSIS PRESENTMartinsville Memorial Hospital Segmented neutrophils/100 WBC (Bld)9.09 %HighMartinsville Memorial HospitalWBC other (Bld) [#/Vol]11.8HighMartinsville Memorial HospitalBon St. Charles HospitalCBC with Diffon 11-44-0452Gdi. Basophil0.15 k/uLNormal0.00-0.20[facility] HospitalComment on above:Performed By: #### BMPX, CDP #### [employer] [address] [place] [phone] Skin Pass Operator: Arthur Carvajal.Imm.Granulocyte0.05 k/uLNormal0.00-0.30[facility] HospitalComment on above:Performed By: #### BMPX, CDP #### [facility] [address] [place] [address] Skin Pass Operator: Arthur Carvajal.Neutrophil (Seg)9.09 k/uLHigh1.50-8.10[facility] HospitalComment on above:Performed By: #### BMPX, CDP #### [place] [address] Skin Pass Operator: Collin Augustin MDBasophils/100 WBC (Bld)1 %Normal0-2MSuburban Medical CenterComment on above:Performed By: #### BMPX, CDP #### [place] [address] Skin Pass Operator: Collin Augustin MDEosinophils (Bld) [#/Vol]0.22 10*3/uLNormal 0.00-0.44[facility] HospitalComment on above:Performed By: #### BMPX, CDP #### [place] [address] Skin Pass Operator: Collin Augustin MDEosinophils/100 WBC (Bld)2 %Normal1-4[facility] HospitalComment on above:Performed By: #### BMPX, CDP #### [place] [address] Skin Pass Operator: Collin Augustin MDErythrocyte distribution width (RBC) [Ratio]15.2 %High11.8-14.4[facility] HospitalComment on above:Performed By: #### BMPX, CDP #### [place] [address] Skin Pass Operator: Collin Augustin MDHematocrit (Bld) [Volume fraction]32.1 %Low 40.7-50.3MercPatton State HospitalComment on above:Performed By: #### BMPX, CDP #### [place] [address] Skin Pass Operator: Collin Augustin MDHemoglobin (Bld) [Mass/Vol]9.8 g/dLLow13.0-17.0 [facility] HospitalComment on above:Performed By: #### BMPX, CDP #### [place] [address] Skin Pass Operator: Collin Augustin MDImmature granulocytes/100 WBC (Bld)0 %Normal0 [facility] HospitalComment on above:Performed By: #### BMPX, CDP #### [place] [address] Skin Pass Operator: Collin Augustin MDLymphocytes (Bld) [#/Vol]1.39 10*3/uLNormal 1.10-3.70[facility] HospitalComment on above:Performed By: #### BMPX, CDP #### [place] [address] Skin Pass Operator: Jimi Carvajalmphocytes/100 WBC (Bld)12 %Lzq37-57GumteOhio State East HospitalComment on above:Performed By: #### BMPX, CDP #### [place] [address] Skin Pass Operator: BARBARA CarvajalCH (RBC) [Entitic mass]24.0 pgLow25.2-33.5[facility] East HospitalComment on above:Performed By: #### BMPX, CDP #### [place] [address] Skin Pass Operator: BARBARA CarvajalCHC (RBC) [Mass/Vol]30.5 g/aIBhsmst91.4-34.8 [facility] HospitalComment on above:Performed By: #### BMPX, CDP #### [facility] [address] [place] [address] Skin Pass Operator: BARBARA CarvajalCV (RBC) [Entitic vol]78.7 fLLow82.6-102.9[facility] HospitalComment on above:Performed By: #### BMPX, CDP #### [facility] [address] [place] [address] Skin Pass Operator: BARBARA Carvajalonocytes (Bld) [#/Vol]0.93 10*3/uLNormal 0.10-1.20[facility] HospitalComment on above:Performed By: #### BMPX, CDP #### [facility] [address] [place] [address] Skin Pass Operator: BARBARA Carvajalonocytes/100 WBC (Bld)8 %Normal3-12[facility] HospitalComment on above:Performed By: #### BMPX, CDP #### [facility] [address] [place] [address] Skin Pass Operator: Adebayo Carvajalophil (Seg)77 %Mdxo85-19DqpguOhio State East HospitalComment on above:Performed By: #### BMPX, CDP #### [facility] [address] [place] [address] Skin Pass Operator: TELLO Carvajal Automated0.0 per 100 WBCNormal0.0[facility] HospitalComment on above:Performed By: #### BMPX, CDP #### [facility] [address] [place] [address] Skin Pass Operator: NADYA Carvajallatelet mean volume (Bld) [Entitic vol]9.0 fL Normal8.1-13.5[facility] HospitalComment on above:Performed By: #### BMPX, CDP #### [address] [address] Skin Pass Operator: Ricki Carvajal (Bld) [#/Vol]345 10*3/aAFtgtgc744-724 [facility] HospitalComment on above:Performed By: #### BMPX, CDP #### [address] [address] Skin Pass Operator: ABNER Carvajal (Bld) [#/Vol]4.08 10*6/uLLow4.21-5.77[facility] HospitalComment on above:Performed By: #### BMPX, CDP #### [address] [address] Skin Pass Operator: ABNER Carvajal morphology finding Nom (Bld)ANISOCYTOSIS PRESENTNoMemorial Health SystemComment on above:Result Comment: MICROCYTOSIS PRESENTPerformed By: #### BMPX, CDP #### [address] [address] Skin Pass Operator: KIRILL Carvajal (Bld) [#/Vol]11.8 10*3/uLHigh3.5-11.3[facility], Memorial CampusComment on above:Performed By: #### BMPX, CDP #### [address] [address] Skin Pass Operator: BOUBACAR Carvajalult,Urineon 64-52-0836Geuk,UrineSpecimen Description .CLEAN CATCH URINE Special Requests Site: Urine Culture NO GROWTH Report Status FINAL 01/31/2025NoMemorial Health SystemComment on above:Performed By: #### BMPX, CDP #### [address] [address] Skin Pass Operator: BOUBACAR Carvajalulture, Urineon 41-76-7684Bwncsentxrpfq identified Cx Nom (Unsp spec)NO GROWTHBon Secours Mercy HealthService comment (Unsp spec) [Interp]Site: UrineNXESpecimen Description .CLEAN CATCH URINEBaldo TenMarks EducationEKG 12 Lead Ordered By: Celeste Carnes on 52-78-5302Qzwhsa Hahi81XDMOtk SecDisplayLink Work Phone: P Ngsh3wgyquwcJbmNXE Work Phone: P-R Xkjritth242 NXE Work Phone: Q-T Mklgckpw387 msBon [facility] Work Phone: QRS Banawzbc19 msBon [facility] Work Phone: QTc Calculation (Bazett)457 msBon [facility] Work Phone: R [id number] Work Phone: T [id number] Work Phone: Ventricular Wway38ILUThp [facility] Work Phone: [facility] Work Phone: [phone] 12 Leadon 23-65-3590Zcvivk sinus rhythm Normal ECG When compared with ECG of 30-JAN-2025 04:16, Sinus rhythm has replaced Ectopic atrial rhythm Left posterior fascicular block is no longer Present Nonspecific T wave abnormality, worse in Lateral leadsMHPN STV Toribio Quinones DO / Celeste Carnes MD - 01/31/2025 Normal sinus rhythm Normal ECG When compared with ECG of 30-JAN-2025 04:16, Sinus rhythm has replaced Ectopic atrial rhythm Left posterior fascicular block is no longer Present Nonspecific T wave abnormality, worse in Lateral leads [facility] HealthCareGlucose,Whole Bloodon 69-91-9097Ipfwfio [Mass/Vol]131 mg/gZIpeo92-227BidheAtascadero State HospitalGlucose [Mass/Vol]127 mg/dLHigh 75-110MerAtascadero State HospitalGlucose [Mass/Vol]131 mg/iWTjii50-570Uus St. Charles HospitalNeutrophil Cytopl Abon 25-86-6875LME-ANCA<0.5Cvizhr6.0-3.5 [facility] HospitalComment on above:Result Comment: Reference Range: <3.5 Negative 3.5-5.0 Equivocal >5.0 PositivePerformed By: #### BMPX, CDP, MG #### [facility] [place], [place] [phone] Skin Pass Operator: NADYA CarvajalR3-ANCA<0.0Lblmhc2.0-2.0[facility] HospitalComment on above:Result Comment: Reference Range: <2.0 Negative 2.0-3.0 Equivocal >3.0 PositivePerformed By: #### BMPX, CDP, MG #### [facility] [address] [place] [address] [phone] Skin Pass Operator: Julia Carvajal Panel Informationon 21-17-8048Bsk [facility] Glucose Fingerstickon 43-82-1568Fbuvcyx [Mass/Vol]131 mg/dLHigh 75 - 110 mg/dLBon St. Charles HospitalInterpretation and review of laboratory resultsAbnormRappahannock General HospitalGlucose [Mass/Vol]127 mg/mQHsgz36 - 110 mg/dLBon St. Charles HospitalInterpretation and review of laboratory resultsAbnormalBon Secours Health SystemInterpretation and review of laboratory resultsAbBennett County Hospital and Nursing HomeProt. Electroph, Blon 85-36-1602Kmvdnxj [Mass/Vol] 3.3 g/dLNormal3.2-5.2MSuburban Medical CenterComment on above:Performed By: #### BMPX, CDP, MG #### [facility] [address] [place] [address] [phone] Skin Pass Operator: Collin Augustin MDAlbumin, %47 %Myu78-44NmxoyOhio State East HospitalComment on above:Performed By: #### BMPX, CDP, MG #### [facility] [address] [place] [address] Skin Pass Operator: Collin Augustin MDAWQVbrej-8-vnlhrtoes4.6 g/dLHigh0.1-0.4[facility] HospitalComment on above:Performed By: #### BMPX, CDP, MG #### [facility] [address] [place] [address] Skin Pass Operator: Collin Augustin AJNbnkf-1-wbnzfczmp,%9 %High3-5[facility] HospitalComment on above:Performed By: #### BMPX, CDP, MG #### [facility] [address] [place] [address] Skin Pass Operator: Collin Augustin MDAXZGcurb-6-xeqwhhwgh8.9 g/dLNormal0.5-0.9[facility] HospitalComment on above:Performed By: #### BMPX, CDP, MG #### [facility] [address] [place] [address] Skin Pass Operator: Collin Augustin MDAlpha-2-globulins,%13 %High7-12[facility] HospitalComment on above:Performed By: #### BMPX, CDP, MG #### [facility] [address] [place] [address] Skin Pass Operator: Collin Augustin MDBeta-globulins1.0 g/dLNormal0.7-1.4[facility] HospitalComment on above:Performed By: #### BMPX, CDP, MG #### [facility] [address] [place] [address] Skin Pass Operator: Collin Augustin MDBeta-globulins,%14 %High8-13[facility] HospitalComment on above:Performed By: #### BMPX, CDP, MG #### [facility] [address] [place] [address] Skin Pass Operator: Benita Carvajalmma-globulins1.2 g/dLNormal0.5-1.5[facility] HospitalComment on above:Performed By: #### BMPX, CDP, MG #### [facility] [address] [place] [address] Skin Pass Operator: Benita Carvajalmma-globulins,%18 %Uudarg50-13WmtnqOhio State East HospitalComment on above:Performed By: #### BMPX, CDP, MG #### [facility] [address] [place] [address] Skin Pass Operator: Collin Augustin MDTotal Prot. Sum7.0 g/dLNormal6.3-8.2MercPatton State HospitalComment on above:Performed By: #### BMPX, CDP, MG #### [facility] [address] [place] [address] Skin Pass Operator: Faye Carvajaltal Prot. Sum,%101 %Ppesyb40-460QjouoOhio State East HospitalComment on above:Performed By: #### BMPX, CDP, MG #### [facility] [address] [place] [address] Skin Pass Operator: NADYA Carvajalrotein, urine, randomon 54-10-5213Humsccd (U) [Mass/Vol]482 mg/dLBon St. Charles HospitalComment on above:No normal range established.Bon St. Charles HospitalProtein,Tot,Larue Uron 50-84-7191Rug Prot. Conc.482 mg/dLNormalOhio State East HospitalComment on above:Result Comment: No normal range established.Performed By: #### BMPX, CDP #### [facility] [address] [place] [address] Skin Pass Operator: Collin Augustin MDUrinalysis w/ Microon 15-82-0389Pslydwfbga cells LM Ql (Urine sed)NoneNormal0-5MerAtascadero State HospitalComment on above: Performed By: #### BMPX, CDP #### [facility] [address] [place] [address] Skin Pass Operator: Norman Carvajal RBC'sTOO NUMEROUS TO COUNTNormal0-2[facility], Memorial CampusComment on above:Performed By: #### BMPX, CDP #### [facility] [address] [place] [address] Skin Pass Operator: Norman Carvajal WBC's2 TO 9Dglgox4-7RvqbrOhio State East HospitalComment on above:Performed By: #### BMPX, CDP #### [facility] [address] [place] [address] Skin Pass Operator: Isaías Carvajalirubin, SemiQt,UrNegativeNormalNEGOhio State East HospitalComment on above:Performed By: #### BMPX, CDP #### [facility] [address] [place] [address] Skin Pass Operator: Leslie Carvajal, UrineLARGEAbnormalNEGOhio State East HospitalComment on above:Performed By: #### BMPX, CDP #### [facility] [address] [place] [address] Skin Pass Operator: BOUBACAR Carvajallarity (U)CloudyAbnormalCLEARMercPatton State HospitalComment on above:Performed By: #### BMPX, CDP #### [facility] [address] [place] [address] Skin Pass Operator: BOUBACAR Carvajalolor (U)RedAbnormalYELMerAtascadero State HospitalComment on above:Result Comment: INTERPRET WITH CAUTION DUE TO INTENSE COLOR OF URINE.Performed By: #### BMPX, CDP #### [facility] [address] [place] [address] Skin Pass Operator: Collin Augustin MDGlucose Ql (U)NegativeNormalNEGOhio State East HospitalComment on above:Performed By: #### BMPX, CDP #### [facility] [address] [place] [address] Skin Pass Operator: Collin Augustin MDKetones Ql (U)NegativeNormalNEGOhio State East HospitalComment on above:Performed By: #### BMPX, CDP #### [facility] [address] [place] [address] Skin Pass Operator: Collin Augustin MDLeukocyte esterase Test strip Ql (U)TRACE AbnormalNEGOhio State East HospitalComment on above:Performed By: #### BMPX, CDP #### [address] [address] Skin Pass Operator: Collin Augustin MDNitrite,UrNegativeNormalNEGOhio State East HospitalComment on above:Performed By: #### BMPX, CDP #### [facility] [address] Skin Pass Operator: NADYA Carvajal,Ur7.8Crnobc0.0-8.0[facility] HospitalComment on above:Performed By: #### BMPX, CDP #### [address] [address] Skin Pass Operator: NADYA Carvajalrotein Ql (U)3+ mg/dLAbnormalNEGOhio State East HospitalComment on above:Performed By: #### BMPX, CDP #### [facility] [address] [address] Skin Pass Operator: IRENE Carvajalpec. [place],Ur1.344Iulpid9.005-1.030[facility] HospitalComment on above:Performed By: #### BMPX, CDP #### [facility] [address] [place] [address] Skin Pass Operator: Stacey Carvajalbilinogen,UrNormalNormal0.0-1.0[facility] HospitalComment on above:Performed By: #### BMPX, CDP #### [employer] [address] [place], [place] [address] Skin Pass Operator: Collin Augustin MDUrinalysis with Microscopicon 01-31-2025 Bilirubin Ql (U)NegativeNEGATIVEBon SecOchsner Medical Center HealthClarity (U)Cloudy AbnormalClearBon SecOchsner Medical Center HealthColor (U)RedAbnormalYellowBon St. Charles HospitalComment on above:INTERPRET WITH CAUTION DUE TO INTENSE COLOR OF URINE. Epithelial cells LM.HPF (Urine sed) [#/Area]NoneBon St. Charles HospitalGlucose Test strip (U) [Mass/Vol]NegativeNEGATIVE mg/dLBon SecOchsner Medical Center iBio Hemoglobin Auto test strip Ql (U)LARGEAbnormalNEGATIVEBon St. [facility] Interpretation and review of laboratory resultsAbnormalBon St. [facility] Ketones (U) [Mass/Vol]NegativeNEGATIVE mg/dLBon Secours [facility] Regional HospitalLeukocyte esterase Test strip Ql (U)TRACEAbnormalNEGATIVEBon SecRegency Hospital Cleveland WestNitrite Ql (U)NegativeNEGATIVEBon SecRegency Hospital Cleveland WestpH (U)7 [pH]5.0 - 8.0Bon SecOchs[facility] HealthProtein (U) [Mass/Vol]3+AbnormalNEGATIVE mg/dLBon Secours [facility] Hospitaly [facility] HospitalRBC LM.HPF (Urine sed) [#/Area]TOO NUMEROUS TO COUNTBon SecOchsner Medical Center HealthSpecific gravity (U) [Rel density]1.0111.005 - 1.030Bon SecRegency Hospital Cleveland WestUrobilinogen Qn (U)Normal0.0 - 1.0 EU/dLBon Secours The [facility] Hospitaly [facility] HospitalWBC LM.HPF (Urine sed) [#/Area]2 TO 5Bon [facility] HospitalBon SecRegency Hospital Cleveland WestBasic Metab w/rfx MGon 33-90-2809Jhrds gap [Moles/Vol]19 mmol/LHigh9-16[facility] HospitalComment on above:Performed By: #### ANA BMPX #### [facility] [address] [place] [address] Skin Pass Operator: BOUBACAR Carvajalalcium [Mass/Vol]9.0 mg/dLNormal8.6-10.4[facility] HospitalComment on above:Performed By: #### ANA BMPX #### [facility] [address] [place] [address] Skin Pass Operator: BOUBACAR Carvajalhloride [Moles/Vol]98 mmol/OGemzvf26-417XhzxlOhio State East HospitalComment on above:Performed By: #### ANA BMPX #### [facility] [address] [place] [address] Skin Pass Operator: BOUBACAR CarvajalO2 [Moles/Vol]20 mmol/ZLedocc58-39NnjlbOhio State East HospitalComment on above:Performed By: #### ANA BMPX #### [facility] [address] [place] [address] Skin Pass Operator: BOUBACAR Carvajalreatinine [Mass/Vol]6.2 mg/dLCritically high 0.7-1.2MSuburban Medical CenterComment on above:Result Comment: Previous Alert Value ReportedPerformed By: #### ANA BMPX #### [facility] [address] [place] [address] Skin Pass Operator: Collin Augustin MDGFR/1.73 sq M.predicted among non-blacks MDRD (S/P/Bld) [Vol rate/Area]10 mL/min/{1.73_m2}Low>60MerAtascadero State HospitalComment on above:Result Comment: These results are not intended for [...] or following therapy that affects renal tubular secretion.Performed By: #### ANA BMPX #### [facility] [address] [place] [address] Skin Pass Operator: Collin Augustin MDGlucose [Mass/Vol]136 mg/rMSjyn63-62YwyenSuburban Medical CenterComment on above:Performed By: #### ANA BMPX #### [facility] [address] [place] [address] Skin Pass Operator: Collin Augustin MDPotassium [Moles/Vol]4.0 mmol/LNormal3.7-5.3 [facility] HospitalComment on above:Performed By: #### ANA BMPX #### [facility] [employer] [address] [place] [address] Skin Pass Operator: Collin Augustin MDSodium [Moles/Vol]137 mmol/CFdifxa937-240VvojnOhio State East HospitalComment on above:Performed By: #### ANA BMPX #### [facility] [employer] [address] [place] [address] Skin Pass Operator: Collin Augustin MDUrea nitrogen [Mass/Vol]48 mg/dLHigh8-23[facility] HospitalComment on above:Performed By: #### TROPLopez BMPX #### [facility] [employer] [address] [place] [address] Skin Pass Operator: Collin Augustin MDAnion gap [Moles/Vol]22 mmol/LHigh9-16[facility] HospitalComment on above:Performed By: #### TROPLopez, BMPX #### [facility] [employer] [address] [place] [address] Skin Pass Operator: Collin Augustin MDCalcium [Mass/Vol]8.6 mg/dLNormal8.6-10.4[facility] HospitalComment on above:Performed By: #### ANA BMPX #### [facility] [address] [place] [address] Skin Pass Operator: BOUBACAR Carvajalhloride [Moles/Vol]109 mmol/JJgyc39-606PttqfOhio State East HospitalComment on above:Performed By: #### TROPI, BMPX #### [facility] [address] [place] [address] Skin Pass Operator: Collin Augustin MDCO2 [Moles/Vol]10 mmol/KAsr46-14ShelwOhio State East HospitalComment on above:Performed By: #### ANA BMPX #### [facility] [address] [place] [address] Skin Pass Operator: BOUBACAR Carvajalreatinine [Mass/Vol]13.0 mg/dLCritically high 0.7-1.2MSuburban Medical CenterComment on above:Performed By: #### ANA BMPX #### [facility] [address] [place] [address] Skin Pass Operator: Collin Augustin MDGFR/1.73 sq M.predicted among non-blacks MDRD (S/P/Bld) [Vol rate/Area]4 mL/min/{1.73_m2}Low>60[facility] East HospitalComment on above:Result Comment: These results are not intended for [...] or following therapy that affects renal tubular secretion.Performed By: #### TROPI, BMPX #### [facility] [address] [place] [address] Skin Pass Operator: Collin Augustin MDGlucose [Mass/Vol]99 mg/mRFnmddc04-74Cwifu [facility], Memorial CampusComment on above:Performed By: #### ANA BMPX #### [facility] [place] [address] Skin Pass Operator: NADYA Carvajalotassium [Moles/Vol]7.1 mmol/LCritically high 3.7-5.3MSuburban Medical CenterComment on above:Performed By: #### ANA BMPX #### [facility] [place] [address] Skin Pass Operator: IRENE Carvajalodium [Moles/Vol]141 mmol/WMalvkv021-062HbneyOhio State East HospitalComment on above:Performed By: #### ANA BMPX #### [facility] [address] [place] [address] Skin Pass Operator: Collin Augustin MDUrea nitrogen [Mass/Vol]108 mg/dLCritically high 8-23[facility] HospitalComment on above:Performed By: #### ANA BMPX #### [facility] [address] [place] [address] Skin Pass Operator: Collin Augustin MDBabaptist health paducah Metabolic Panel w/ Reflex to MGon 16-60-7472Igkyu gap [Moles/Vol]19 mmol/LHigh9 - 16 mmol/LBon Secours Mercy HealthCalcium [Mass/Vol]9 mg/dL8.6 - 10.4 mg/dLBon Secours Mercy HealthChloride [Moles/Vol]98 mmol/L98 - 107 mmol/LBon Secours Mer[facility] HealthCO2 [Moles/Vol]20 mmol/L20 - 31 mmol/LBon Secours [facility] HealthCreatinine [Mass/Vol]6.2 mg/dL Critically high0.7 - 1.2 mg/dLBon Secours On The Net Yety HealthComment on above:Previous Alert Value ReportedEst, Glom Filt Ndtb19Nff- PINFBon Secours Mercy Health Comment on above: These results are not intended for use in patients <18 years of age. eGFR results are calculated without a race factor using the 202 CKD-EPI equation. Careful clinical correlation is recommended, particularly when comparing to results calculated using previous equations. The CKD-EPI equation is less accurate in patients with extremes of muscle mass, extra-renal metabolism of creatine, excessive creatine ingestion, or following therapy that affects renal tubular secretion. Glucose [Mass/Vol]136 mg/zHPgip07 - 99 mg/dLBon Secours Mercy HealthPotassium [Moles/Vol]4 mmol/L3.7 - 5.3 mmol/LBon Secours Mercy HealthSodium [Moles/Vol]137 mmol/L136 - 145 mmol/LBon Secours Revolights HealthUrea nitrogen [Mass/Vol]48 mg/dL High8 - 23 mg/dLBon Secours ArstasisAnion gap [Moles/Vol]22 mmol/LHigh9 - 16 mmol/LBon Secours Revolights HealthCalcium [Mass/Vol]8.6 mg/dL8.6 - 10.4 mg/dLBon Secours Revolights HealthChloride [Moles/Vol]109 mmol/LHigh98 - 107 mmol/LBon Secours ArstasisCO2 [Moles/Vol]10 mmol/LLow20 - 31 mmol/LBon Secdelaware psychiatric center Arstasis Creatinine [Mass/Vol]13.0 mg/dLCritically high0.7 - 1.2 mg/dLBon Secours ArstasisEst, Glom Filt Mvdo7Egl- PINFBon SecHarborview Medical CenterDream KitchenComment on above: These results are not intended for use in patients <18 years of age. eGFR results are calculated without a race factor using the 202 CKD-EPI equation. Careful clinical correlation is recommended, particularly when comparing to results calculated using previous equations. The CKD-EPI equation is less accurate in patients with extremes of muscle mass, extra-renal metabolism of creatine, excessive creatine ingestion, or following therapy that affects renal tubular secretion. Glucose [Mass/Vol]99 mg/dL74 - 99 mg/dLBon Secours Mercy HealthPotassium [Moles/Vol]7.1 mmol/LCritically high3.7 - 5.3 mmol/LBon Secours Revolights Health Sodium [Moles/Vol]141 mmol/L136 - 145 mmol/LBon Secours ArstasisUrea nitrogen [Mass/Vol]108 mg/dLCritically high8 - 23 mg/dLBon SecRegency [facility] C3on 67-76-7492W3198 mg/cKXjeqvf56-145KvopmOhio State East HospitalComment on above:Performed By: #### BMPX, CDP, MG #### [facility] [address] [place], [place] [phone] Skin Pass Operator: Collin Augustin [facility] Complementon 03-57-9553Htkccmowqn C3 [Mass/Vol]162 mg/dL90 - 180 mg/dLBon St. Charles HospitalC4on 22-10-0848V476 mg/qMItmahu87-72RcclrOhio State East HospitalComment on above:Performed By: #### BMPX, CDP, MG #### [facility] [address] [place], [place] [phone] Skin Pass Operator: Collin Augustin [facility] Complementon 70-91-3023Jrtlydrjbs C4 [Mass/Vol]31 mg/dL10 - 40 mg/dLBon St. Charles HospitalCBC with Auto Differentialon 96-51-1821Ouczvcsmk (Bld) [#/Vol]0.11 10*3/uLBon St. Charles HospitalImmature granulocytes (Bld) [#/Vol]0.06 10*3/[facility] Interpretation and review of laboratory resultsAbnormalMartinsville Memorial Hospital Lymphocytes/100 WBC (Bld)0.94 %LowMartinsville Memorial HospitalMonocytes/100 WBC (Bld)0.6 %[facility] HospitalNeutrophils/100 WBC (Bld)83 %High36 - 65 %[facility] HospitalNucleated RBC/100 WBC (Bld) [Ratio]0 %0.0 per 100 WBCMartinsville Memorial HospitalRBC (Bld) [#/Vol]ANISOCYTOSIS PRESENT MICROCYTOSIS PRESENT [facility] HospitalSegmented neutrophils/100 WBC (Bld)10.19 %HighMartinsville Memorial HospitalWBC other (Bld) [#/Vol]12.1HighBon St. Charles HospitalBon [facility] with Diffon 00-49-6716Ijthahomc/100 WBC (Bld)1 %Normal 0-2Bon [facility] on above:Performed By: #### BMPX, CDP #### [address] [address] Skin Pass Operator: Collin Augustin MDEosinophils (Bld) [#/Vol]0.21 10*3/uLNormal 0.00-0.44Bon [facility] on above:Performed By: #### BMPX, CDP #### [place] [address] Skin Pass Operator: Collin Augustin MDEosinophils/100 WBC (Bld)2 %Normal1-4Bon [facility] on above:Performed By: #### BMPX, CDP #### [place] [address] Skin Pass Operator: Collin Augustin MDErythrocyte distribution width (RBC) [Ratio]15.3 %High11.8-14.4Bon [facility] on above:Performed By: #### BMPX, CDP #### [facility] [employer] [address] [place] [address] Skin Pass Operator: Collin Augustin MDHematocrit (Bld) [Volume fraction]32.1 %Low 40.7-50.3Bon [facility] on above:Performed By: #### BMPX, CDP #### [facility] [address] [place] [address] Skin Pass Operator: Collin Augustin MDHemoglobin (Bld) [Mass/Vol]9.9 g/dLLow13.0-17.0 [facility] on above:Performed By: #### BMPX, CDP #### [address] [address] Skin Pass Operator: Ewelina Carvajalmature granulocytes/100 WBC (Bld)1 %Rphr5Ojk SecOchsner Medical Center HealthComment on above:Performed By: #### BMPX, CDP #### [facility] [address] [place] [address] Skin Pass Operator: Collin Augustin MDLymphocytes/100 WBC (Bld)8 %Hwm46-20Mzi SecOchsner Medical Center HealthComment on above:Performed By: #### BMPX, CDP #### [place] [address] Skin Pass Operator: BARBARA CarvajalCH (RBC) [Entitic mass]24.4 pgLow25.2-33.5Bon SecOchsner Medical Center HealthComment on above:Performed By: #### BMPX, CDP #### [place] [address] Skin Pass Operator: BARBARA CarvajalCHC (RBC) [Mass/Vol]30.8 g/hUEnmtxq28.4-34.8Bon SecOchsner Medical Center HealthComment on above:Performed By: #### BMPX, CDP #### [place] [address] Skin Pass Operator: BARBARA CarvajalCV (RBC) [Entitic vol]79.3 fLLow82.6-102.9Bon SecOchsner Medical Center HealthComment on above:Performed By: #### BMPX, CDP #### [place] [address] Skin Pass Operator: BARBARA Carvajalonocytes/100 WBC (Bld)5 %Normal3-12Bon SecOchsner Medical Center HealthComment on above:Performed By: #### BMPX, CDP #### [place] [address] Skin Pass Operator: NADYA Carvajallatelet mean volume (Bld) [Entitic vol]8.8 fL Normal8.1-13.5Bon SecOchsner Medical Center HealthComment on above:Performed By: #### BMPX, CDP #### [facility] [address] [place] [address] Skin Pass Operator: Ghislaine Carvajaltehailey (d) [#/Vol]374 10*3/lKNjgxxb784-427 Bon [facility] HealthComment on above:Performed By: #### BMPX, CDP #### [facility] [address] [place] [address] Skin Pass Operator: Collin Augustin MDRBC (d) [#/Vol]4.05 10*6/uLLow4.21-5.77Bon [facility] HealthComment on above:Performed By: #### BMPX, CDP #### [facility] [address] [place] [address] Skin Pass Operator: MDAbs. Alena Basophil0.11 k/uLNormal0.00-0.20[facility] HospitalComment on above:Performed By: #### BMPX, CDP #### [facility] [address] [place] [address] Skin Pass Operator: MDAbs. AlenaImm.Granulocyte0.06 k/uLNormal0.00-0.30[facility] HospitalComment on above:Performed By: #### BMPX, CDP #### [facility] [address] [place] [address] Skin Pass Operator: MDAbs. AlenaNeutrophil (Seg)10.19 k/uLHigh1.50-8.10[facility] HospitalComment on above:Performed By: #### BMPX, CDP #### [facility] [address] [place] [address] Skin Pass Operator: Davina Carvajalhocytes (d) [#/Vol]0.94 10*3/uLLow 1.10-3.70[facility] HospitalComment on above:Performed By: #### BMPX, CDP #### [address] [address] Skin Pass Operator: BARBARA Carvajalonocytes (Bld) [#/Vol]0.60 10*3/uLNormal 0.10-1.20[facility] HospitalComment on above:Performed By: #### BMPX, CDP #### [address] [address] Skin Pass Operator: Collin Augustin MDNeutrophil (Seg)83 %Lvsh36-23QndtpOhio State East HospitalComment on above:Performed By: #### BMPX, CDP #### [address] [address] Skin Pass Operator: Collin Augustin MDNRBC Automated0.0 per 100 WBCNormal0.0[facility] HospitalComment on above:Performed By: #### BMPX, CDP #### [address] [address] Skin Pass Operator: ABNER Carvajal morphology finding Nom (Bld)ANISOCYTOSIS PRESENTNormalOhio State East HospitalComment on above:Result Comment: MICROCYTOSIS PRESENTPerformed By: #### BMPX, CDP #### [address] [address] Skin Pass Operator: Collin Augustin MDWBC (Bld) [#/Vol]12.1 10*3/uLHigh3.5-11.3MSuburban Medical CenterComment on above:Performed By: #### BMPX, CDP #### [address] [address] Skin Pass Operator: BOUBACAR Carvajalreatinine, Random Urineon 03-20-4731Ybyiwrtiia (U) [Mass/Vol]26.4 mg/dLLow39.0 - 259.0 mg/dLBon St. Charles HospitalComment on above:Reference range defined for 1st morning urineInterpretation and review of laboratory resultsAbnormalBon Arlington HealthCareCreatinine,Random Uron 83-58-6057Lbunsvhzyi [Mass/Vol]26.4 mg/dLLow39.0-259.0[facility] Hospitalcy [facility], Memorial CampusComment on above:Result Comment: Reference range defined for 1st morning urinePerformed By: #### TROPI, BMPX #### [facility] [address] [place] [address] Skin Pass Operator: LEYLA Carvajal 12 leadOrdered By: Autumn Christianson on 79-35-9612Mnkfxw Nhxh27MZROjn [employer] Phone: P Ntsu762yqiqpuqCwvRelevant e-solution Phone: P-R [id number] [facility] [employer] Phone: Q-T [id number] [facility] [employer] Phone: QRS Zlnfhsik79 [employer] Phone: QTc Calculation (Bazett)442 [facility] [employer] Phone: R Alzc713tyyyrynAzv [employer] Phone: T [id number] e-solution Phone: Ventricular Pmnr50AUTWna [facility] HealthCare Work Phone: Bon [facility] Work Phone: EKG 12 leadon 01-30-2025 Suspect arm lead reversal, interpretation assumes no reversal Unusual P axis, possible ectopic atrial rhythm Left posterior fascicular block Abnormal ECG No previous ECGs availableACOMA[facility] Autumn Larsen MD - 01/30/2025 Suspect arm lead reversal, interpretation assumes no reversal Unusual P axis, possible ectopic atrial rhythm Left posterior fascicular block Abnormal ECG No previous ECGs available [facility] HealthCareFree [place] + Lambdaon 48-72-1727Xdel [place] Lt Ytvgte48.7 mg/LHigh<20.7Ohio [facility] HospitalComment on above:Result Comment: Performed using Diazyme reagent on Hoa Tariq Pro. Results obtained with different assay methods cannot be used interchangeably.Performed By: #### BMPÁngela CDP, MG #### [facility] [address] [place] [address] Skin Pass Operator: Masoud Carvajal [place]/Lambda Rat1.03Qdyjme7.22-1.74[facility] HospitalComment on above:Performed By: #### MARIELOS MCKEON, MG #### [facility] [employer] [address] [place] [address] Skin Pass Operator: Masoud Carvajal Lambda Lt Ttjats54.6 mg/LHigh4.2-27.7[facility] HospitalComment on above:Result Comment: Performed using Diazyme reagent on Hoa Tariq Pro. Results obtained with different assay methods cannot be used interchangeably.Performed By: #### MARIELOS MCKEON, MG #### [facility] [address] [place] [address] Skin Pass Operator: Madison Carvajal B Core [facility] 87-43-5873Dxh B Core Ab Non-ReactiveNormalNROhio State East HospitalComment on above:Performed By: #### MARIELOS MCKEON, MG #### [facility] [address] [place] [address] Skin Pass Operator: Madison Carvajal B Surf Abon 50-75-5682Nik B Surf Ab<3.50 Normal<10Ohio State East HospitalComment on above:Result Comment: REFERENCE RANGE: <10.0 NON-REACTIVE/NOT IMMUNE >=10.0 REACTIVE/IMMUNEPerformed By: #### MIKE CDP, MG #### [facility] [address] [place] [address] Skin Pass Operator: Madison Carvajal B Surf Agon 72-34-6701Tgg B Surf Ag Non-ReactiveNormalNROhio State East HospitalComment on above:Performed By: #### MARIELOS MCKEON, MG #### [employer] [address] [place], [place] [address] Skin Pass Operator: Madison Carvajal C Abon 55-26-7848Rpc C AbNon-ReactiveNormal NROhio State East HospitalComment on above:Result Comment: The hepatitis C procedure used in [...] is recommended by ordering HCV RNA by PCR.Performed By: #### MARIELOS MCKEON, MG #### [employer] [facility] [place] [phone] Skin Pass Operator: Piper Carvajaltis B core antibody, totalon 63-48-1550DYY core Ab Ql (S)Non-ReactiveNONREACTIVEPoplar Springs Hospitaltis B surface antibodyon 32-06-2253KRK surface Ab IA Qnm[IU]/mLNINF Bon [facility] HospitalComascension [facility] on above: REFERENCE RANGE: <10.0 NON-REACTIVE/NOT IMMUNE >=10.0 REACTIVE/IMMUNE Hepatitis B surface antigenon 46-52-4783VOZ surface Ag IA QlNon-Reactive NONREACTIVEBon Peoples Hospitaltis C Antibodyon 19-16-5176RLH Ab IA Ql Non-ReactiveNONREACTIVEAugusta Health on above: The hepatitis C procedure used [...] recommended by ordering HCV RNA by PCR. [place]/Lambda Quantitative Free Light Chains, Serumon 07-21-9449Oyyz [place]/Lambda Ratio1.030.22 - 1.74Martinsville Memorial HospitalImmunoglobulin light chains.kappa.free (S) [Mass/Vol]95.7 mg/LHighNINF - 20.7 mg/LBLifePoint Hospitals on above:Performed using Diazyme reagent on Hoa Tariq Pro. Results obtained with different assay methods cannot be used interchangeably. Immunoglobulin light chains.lambda.free [Mass/Vol]92.6 mg/LHigh4.2 - 27.7 mg/L [facility] on above:Performed using Diazyme reagent on Hoa Tariq Pro. Results obtained with different assay methods cannot be used interchangeably. Interpretation and review of laboratory resultsAbnoEureka Community Health Services / Avera HealthMRSA DNA Probe, Nasalon 79-58-3751NJXF, DNA, Nasal NegativeNEGATIVEMartinsville Memorial HospitalComascension st. john hospital on above:NEGATIVE: MRSA DNA not detected by nucleic acid amplification. Results should be used as an adjunct to nosocomial control efforts to identify patients needing enhanced precautions. The test is not intended to identify patients with staphylococcal infections. Results should not be used to guide or monitor treatment for MRSA infections. Specimen Description.NASAL SWABBon Secours Health System MRSA, DNA, Nasalon 79-84-8515UBOD, DNA, NasalNegativeNormalNEGOhio State East HospitalComascension st. john hospital on above:Result Comment: NEGATIVE: MRSA DNA not detected by nucleic acid amplification. Results should be used as an adjunct to nosocomial control efforts to identify patients needing enhanced precautions. The test is not intended to identify patients with staphylococcal infections. Results should not be used to guide or monitor treatment for MRSA infections. Performed By: #### MRSANO #### [employer] [facility] [place] [address] Skin Pass Operator: Irina Carvajal Description.NASAL SWABNoMemorial Health SystemComascension st. john hospital on above:Performed By: #### MRSANO #### [employer] [address] [place], [place] [phone] Skin Pass Operator: Julia Carvajal [facility] Hospitalon 32-14-5565Cxpplslthtgrcd and review of laboratory resultsAbnormalSouthampton Memorial Hospital SecOhioHealth [facility] Secsigifredo [facility] HealthInterpretation and review of laboratory resultsAbnormalBaldo [facility] Hospitalsigifredo [facility] Youngstownsigifredo [facility] HospitalPSA, Diagnosticon 90-11-6794Drjqkwudyqyfqs and review of laboratory resultsAbnormalMartinsville Memorial HospitalProstate specific Ag [Mass/Vol]504 ng/mLHigh0.00 - 4.00 ng/mLBon St. Charles HospitalComascension st. john hospital on above:The Hoa ECLIA assay is used. Results obtained with different assay methods cannot be used interchangeably. Bon St. Charles HospitalProstatic Spec. Ag504.00 ng/mLHigh0.00-4.00[facility] HospitalComascension [facility] on above:Result Comment: The Hoa ECLIA assay is used. Results obtained with different assay methods cannot be used interchangeably.Performed By: #### BMPX, CDP #### [employer] [address] [place] [address] Skin Pass Operator: Nuris Carvajal XR Chest AP single viewon 01-30-2025 Right jugular central venous catheter terminates in the right atrium Bandlike opacity left parahilar region suggesting subsegmental atelectasis [facility] RIS CONSOLIDATEDEXAMINATION: ONE XRAY VIEW OF THE CHEST 01/30/2025 8:15 am COMPARISON: None. HISTORY: ORDERING SYSTEM PROVIDED HISTORY: right CVC insertion TECHNOLOGIST PROVIDED HISTORY: right CVC insertion FINDINGS: Right jugular central venous catheter terminates in the right atrium. Heart size within normal limits. Bandlike opacity left parahilar region. No pneumothorax. No pleural effusion. [facility] RIS Kaushik Vega MD - 01/30/2025 EXAMINATION: ONE XRAY VIEW [...] opacity left parahilar region suggesting subsegmental atelectasis [facility] HospitalRadiology Study observation (narrative)[facility] On The Net YetChildren's Hospital of The King's DaughtersPortable XR Chest AP single viewOrdered By: Kaushik Foster on 01-30-2025 [facility] [employer] Work Phone: Prot. Electroph, Blon 33-02-8093Egnglke [Mass/Vol]7.0 g/dLNormal6.6-8.7Ohio [facility] East HospitalComment on above:Performed By: #### BMPX, CDP, MG #### [employer] [address] [place], [place] [phone] Skin Pass Operator: IRENE Carvajalodium, Random Uron 14-68-8030Vgvmqw (U) [Moles/Vol]112 mmol/LNormalMerAtascadero State HospitalComment on above: Result Comment: No normal range established.Performed By: #### TROPI, BMPX #### [employer] [address] [place], [place] [id number] Skin Pass Operator: David Carvajal, urine, randomon 93-54-8172Taqstc (U) [Moles/Vol]112 mmol/LBon St. Charles HospitalComment on above:No normal range established.Troponinon 09-72-5387Mcvimnwl I.cardiac High sensitivity method [Mass/Vol]86 ng/LCritically high0 - 22 ng/LBon St. Charles HospitalComment on above:High Sensitivity Troponin values cannot be compared with other Troponin methodologies. Previous Alert Value Reported Troponin, High Sens86 ng/LCritically high0-22[facility] Comment on above:Result Comment: High Sensitivity Troponin values cannot be compared with other Troponin methodologies. Previous Alert Value ReportedPerformed By: #### TROPI, BMPX #### [employer] [address] [place], [place] [phone] Skin Pass Operator: Collin Augustin MDInterpretation and review of laboratory results AbnormalBon St. Charles HospitalTroponin I.cardiac High sensitivity method [Mass/Vol]53 ng/LCritically high0 - 22 ng/LBon St. Charles HospitalComment on above:High Sensitivity Troponin values cannot be compared with other Troponin methodologies.Bon St. Charles HospitalTroponin, High Sens53 ng/LCritically high 0-22[facility] HospitalComment on above:Result Comment: High Sensitivity Troponin values cannot be compared with other Troponin methodologies.Performed By: #### TROPI, BMPX #### [facility] [address] [place], [place] [phone] Skin Pass Operator: Arminda Carvajal I.cardiac High sensitivity method [Mass/Vol]45 ng/LHigh0 - 22 ng/LBon St. Charles HospitalComment on above:High Sensitivity Troponin values cannot be compared with other Troponin methodologies.Troponin, High Sens45 ng/LHigh0-22[facility] Comment on above:Result Comment: High Sensitivity Troponin values cannot be compared with other Troponin methodologies.Performed By: #### TROPI, BMPX #### [employer] [facility] [place], [place] [phone] Skin Pass Operator: SALLY Carvajal Kidneyon 50-71-8360Hlib to moderate bilateral hydronephrosis. The kidneys appear otherwise sonographically normal. [facility] CONSOLIDATEDEXAMINATION: RETROPERITONEAL ULTRASOUND OF THE KIDNEYS AND URINARY [...] There is a Hummel catheter in place. [facility] Rigoberto iVera MD - 01/30/2025 EXAMINATION: RETROPERITONEAL ULTRASOUND OF [...] hydronephrosis. The kidneys appear otherwise sonographically normal. [facility]CareRadiology Study observation (narrative)[facility]CareUS KidneyOrdered By: Rigoberto Dean on [phone] Work Phone: us RENAL COMPLETEon [id number] RENAL COMPLETE EXAMINATION: RETROPERITONEAL ULTRASOUND OF THE [...] Signed by: Rigoberto Dean MD 01/30/25 Final resultNoMemorial Health SystemXR CHEST PORTABLEon 01-30-2025 XR CHEST PORTABLEEXAMINATION: ONE XRAY VIEW OF THE CHEST 01/30/2025 [...] Signed by: Kaushik Foster MD 01/30/25 Final resultNormUC West Chester HospitalCNPNon 78-58-1304INVVOufqgl [facility] State East HospitalCNCOon 48-97-6309TQCTQupxau TextNormalCOhioHealth Southeastern Medical CenterCNPNon 08-27-3907SCOMBnosxzNezntwdwv Clinic ClevelandCNPNon 03-08-2023 CNPNNormalOhio State East HospitalCNPNon 63-37-5481OXGEJdxirsIvffhomsv Clinic ClevelandCNPNon 87-43-6834NFXVLghbegCcidkccytSt. Vincent Hospital with Diffon 04-06-7224Nny. Basophil0.10 k/uLNormal0.0-0.2MFirelands Regional Medical Center South CampusComment on above:Performed By: #### MARITZA GALEASP, CDP #### [facility] [address] [place] [address] Skin Pass Operator: Arthur Álvarez.Neutrophil (Seg)7.40 k/uLHigh2.1-6.5[facility] - Cleveland-FairhillComment on above:Performed By: #### CHIDI GALEAS, CDP #### [facility] [address] [place] [address] Skin Pass Operator: Anastasiya Álvarez Diff PerformedYESNoZanesville City Hospital Comment on above:Performed By: #### CHIDI GALEAS, CDP #### [facility] [address] [place] [address] Skin Pass Operator: Miller Grande MDBasophils/100 WBC (Bld)1 %Normal0-2MFirelands Regional Medical Center South CampusComment on above:Performed By: #### CHIDI GALEAS, CDP #### [facility] [address] [place] [address] Skin Pass Operator: Miller Grande MDEosinophils (Bld) [#/Vol]0.90 10*3/uLHigh0.0-0.4 [facility] - Cleveland-FairhillComment on above:Performed By: #### CHIDI GALEAS, CDP #### [facility] [address] [place] [address] Skin Pass Operator: Miller rGande MDEosinophils/100 WBC (Bld)8 %High0-5[facility] - Cleveland-FairhillComment on above:Performed By: #### CHIDI GALEAS, CDP #### [facility] [address] [place] [address] Skin Pass Operator: Miller Grande MDErythrocyte distribution width (RBC) [Ratio]16.9 % High12.1-15.2MFirelands Regional Medical Center South CampusComment on above:Performed By: #### MARITZA GALEASP, CDP #### [facility] [address] [place] [address] Skin Pass Operator: Miller Grande MDHematocrit (Bld) [Volume fraction]25.8 %Bkd65-17 [facility] on above:Performed By: #### CHIDI GALESA, CDP #### [facility] [address] [place] [address] Skin Pass Operator: Miller Grande MDHemoglobin (Bld) [Mass/Vol]8.5 g/dLLow13.5-17.5 [facility] on above:Performed By: #### CHIDI GALEAS, CDP #### [facility] [address] [place] [address] Skin Pass Operator: Miller Grande MDLymphocytes (Bld) [#/Vol]1.60 10*3/uLNormal1.0-4.8 [facility] on above:Performed By: #### CHIDI GALEAS, CDP #### [facility] [address] [place] [address] Skin Pass Operator: Miller Grande MDLymphocytes/100 WBC (Bld)15 %Rwvzuy08-77SvvduSelect Medical Specialty Hospital - Cleveland-FairhillComascension st. john hospital on above:Performed By: #### ADAL LIVP, CDP #### [facility] [address] [place], [place] [id number] Skin Pass Operator: BARBARA ÁlvarezCH (RBC) [Entitic mass]26.9 gxHzgvsz48-06AgxioSelect Medical Specialty Hospital - Cleveland-FairhillComment on above:Performed By: #### CHIDI GALEAS, CDP #### [facility] [address] [place] [phone] Skin Pass Operator: FORD ÁlvarezC (RBC) [Mass/Vol]32.8 g/jJMzyfym26-41RygvjSelect Medical Specialty Hospital - Cleveland-FairhillComment on above:Performed By: #### ADAL LIVP, CDP #### [facility] [address] [place] [address] Skin Pass Operator: BARBARA ÁlvarezCV (RBC) [Entitic vol]82.0 aSKtacon33-086PrlcdSelect Medical Specialty Hospital - Cleveland-FairhillComment on above:Performed By: #### CHIDI GALEAS, CDP #### [facility] [address] [place] [phone] Skin Pass Operator: BARBARA Álvarezonocytes (Bld) [#/Vol]0.50 10*3/uLNormal0.0-1.0 [facility]-FairhillComascension st[facility] john hospital on above:Performed By: #### ADAL LIVP, CDP #### [facility] [address] [place] [address] Skin Pass Operator: BARBARA Álvarezonocytes/100 WBC (Bld)5 %Normal5-9[facility] - Cleveland-FairhillComment on above:Performed By: #### ADAL LIVP, CDP #### [facility] [address] [place] [address] Skin Pass Operator: Glenroy Álvarez (Seg)71 %Myvnau57-95NcvmhSelect Medical Specialty Hospital - Cleveland-FairhillComment on above:Performed By: #### ADAL LIVP, CDP #### [facility] [address] [place] [phone] Skin Pass Operator: Ricki Álvarez (Bld) [#/Vol]380 10*3/xIEazvrm789-966 [facility] - Cleveland-FairhillComment on above:Performed By: #### CHIDI GALEAS, CDP #### [facility] [address] [place] [address] Skin Pass Operator: GAB ÁlvarezBC (Bld) [#/Vol]3.15 10*6/uLLow4.5-5.9[facility] on above:Performed By: #### CHIDI GALEAS, CDP #### [facility] [address] [place] [address] Skin Pass Operator: EDELMIRA ÁlvarezBC (Bld) [#/Vol]10.5 10*3/uLNormal3.5-11.0[facility] on above:Performed By: #### CHIDI GALEAS, CDP #### [facility] [address] [place] [address] Skin Pass Operator: BOUBACAR Álvarezrebonnie w/GFRon 68-73-2870Mstlenndyt [Mass/Vol] 0.70 mg/dLNormal0.70-1.20[facility] on above:Performed By: #### CHIDI GALEAS, CDP #### [facility] [address] [place] [address] Skin Pass Operator: Miller Grande MDGFR/1.73 sq M.predicted among non-blacks MDRD (S/P/Bld) [Vol rate/Area]mL/min/{1.73_m2}Normal>60[facility] on above:Result Comment: These results are not intended for [...] or following therapy that affects renal tubular secretion.Performed By: #### CHIDI GALEAS, CDP #### [facility] [address] [place] [address] Skin Pass Operator: Miller Grande MDLiver Profileon 74-31-8690Tueoucn [Mass/Vol]3.5 g/dLNormal3.5-5.2MSt. Mary's Medical Center HospitalComment on above:Performed By: #### ADAL LIVP, CDP #### [facility] [address] [place] [address] Skin Pass Operator: Chuck Álvarez Phos89 U/BTdgarr34-685AwolcQueens Hospital CenterComment on above:Performed By: #### ADAL LIVReyes, CDP #### [facility] [address] [place] [address] Skin Pass Operator: Miller Grande MDALT [Catalytic activity/Vol]27 U/LNormal5-41MerQueens Hospital CenterComment on above:Performed By: #### CHIDI GALEAS, CDP #### [facility] [address] [place] [address] Skin Pass Operator: Miller Grande MDAST [Catalytic activity/Vol]22 U/LNormal<40MerQueens Hospital CenterComment on above:Performed By: #### ADAL LIVReyes, CDP #### [facility] [address] [place] [address] Skin Pass Operator: Miller Grande MDBilirubin [Mass/Vol]0.1 mg/dLLow0.3-1.2MFirelands Regional Medical Center South CampusComment on above:Performed By: #### ADAL LIVP, CDP #### [facility] [address] [place] [address] Skin Pass Operator: Miller Grande MDBilirubin, IndirectCan not be calculatedNormal 0.0-1.0Mer[facility] Millstone Township HospitalComment on above:Performed By: #### ADAL LIVP, CDP #### [facility] [address] [place] [phone] Skin Pass Operator: Willem Álvarez.indirect [Mass/Vol]mg/dLNormal<0.3MFirelands Regional Medical Center South CampusComment on above:Performed By: #### ADAL LIVP, CDP #### [facility] [address] [place] [address] Skin Pass Operator: NADYA Álvarezrotein [Mass/Vol]6.9 g/dLNormal6.4-8.3MFirelands Regional Medical Center South CampusComment on above:Performed By: #### CHIDI GALEAS, CDP #### [facility] [address] [place] [phone] Skin Pass Operator: BOUBACAR ÁlvarezNPLorri 46-95-0289QEBHPpmybnCrgtkjxmz Clinic ClevelandCBC with Auto Differentialon 64-65-3555Ynvbpfpb Eos #0.40[facility] MEDICAL CENTERAbsolute Lymph #1.20[facility] MEDICAL CENTERAbsolute [place] #0.50[facility] MEDICAL CENTERBasophils (Bld) [#/Vol]0.10 10*3/uLBON [facility]NEROU[facility] Basophils/100 WBC (Bld)2 %0 - 2 %[facility] MEDICAL CENTEREosinophils/100 WBC (Bld)4 %0 - 5 %BON SUM[facility] BARBERTON CAMPUSHematocrit (Bld) [Volume fraction]24.3 % Low41 - 53 %BON [facility] BARBERTON CAMPUSHemoglobin (Bld) [Mass/Vol]7.9 g/dL Critically low13.5 - 17.5 g/dLBON SECSALEM REGIONAL MEDICAL CENTERInterpretation and review of laboratory resultsAbnormalB[facility] MEDICAL CENTERLymphocytes/100 WBC (Bld)13 %13 - 44 %BON [facility] HOSPITALH (RBC) [Entitic mass]27.0 pg26 - 34 pgBON SECPROMEDICA FOSTORIA COMMUNITY HOSPITALHC (RBC) [Mass/Vol]32.7 g/dL31 - 37 g/dLBON [facility] L[facility] MERCY HOSPITALV (RBC) [Entitic vol]82.7 fL80 - 100 fLCARILION GILES MEMORIAL HOSPITAL Monocytes/100 WBC (Bld)6 %5 - 9 %[facility]IAL HOSPITALPlatelet distribution width (Bld) [Ratio]16.0 %High12.1 - 15.2 %BON [facility] BARBERTON CAMPUSPlatelets (Bld) [#/Vol]362 10*3/uLBON SUMMA HEALTH BARBERTON CAMPUSRBC (Bld) [#/Vol]2.94 10*6/uLLow 4.5 - 5.9 m/uLCARILION GILES MEMORIAL HOSPITALSegmented neutrophils/100 WBC (Bld)75 %39 - 75 %[facility]IL[facility] MEMORIAL HOSPITALSegs Absolute7.10HighBON SUMMA HEALTH BARBERTON CAMPUSWBC (Bld) [#/Vol]9.2 10*3/uLBON [facility] HOSPITALCBC with Diffon 59-27-7958Cui. Basophil0.10 k/uLNormal0.0-0.2MFirelands Regional Medical Center South Campus Comment on above:Performed By: #### MARIELOS MURILLO, CREG #### [facility] [address] [place] [address] Skin Pass Operator: Arthur Álvarez.Neutrophil (Seg)7.10 k/uLHigh2.1-6.5MerQueens Hospital CenterComment on above:Performed By: #### MARIELOS MURILLO, CREG #### [facility] [address] [place] [phone] Skin Pass Operator: Miller Grande MDBasophils/100 WBC (Bld)2 %Normal0-2MFirelands Regional Medical Center South CampusComment on above:Performed By: #### LIVP CDP, CREG #### [facility] [address] [place] [address] Skin Pass Operator: Miller Grande MDEosinophils (Bld) [#/Vol]0.40 10*3/uLNormal0.0-0.4 [facility] Cleveland-FairhillComment on above:Performed By: #### MARIELOS MURILLO, CREG #### [facility] [address] [place] [phone] Skin Pass Operator: Miller Grande MDEosinophils/100 WBC (Bld)4 %Normal0-5[facility] - Cleveland-FairhillComment on above:Performed By: #### LIVReyes CDP, CREG #### [facility] [address] [place] [address] Skin Pass Operator: Miller Grande MDErythrocyte distribution width (RBC) [Ratio]16.0 % High12.1-15.2MFirelands Regional Medical Center South CampusComment on above:Performed By: #### MARIELOS MURILLO, CREG #### [facility] [address] [place] [address] Skin Pass Operator: Miller Grande MDHematocrit (Bld) [Volume fraction]24.3 %Mvk46-83 [facility] Cleveland-FairhillComment on above:Performed By: #### MARIELOS MURILLO, CREG #### [facility] [address] [place] [address] Skin Pass Operator: Miller Grande MDHemoglobin (Bld) [Mass/Vol]7.9 g/dLCritically low 13.5-17.5[facility] Cleveland-FairhillComment on above:Performed By: #### CHIDI CDP, CREG #### [facility] [address] [place] [address] Skin Pass Operator: Miller Grande MDLymphocytes (Bld) [#/Vol]1.20 10*3/uLNormal1.0-4.8 [facility]inte Hospitalment on above:Performed By: #### CHIDI CDP, CREG #### [facility] [address] [place] [phone] Skin Pass Operator: Jimi Álvarezmphocytes/100 WBC (Bld)13 %Gchuqs06-07SwyzuSelect Medical Specialty Hospital - Cleveland-FairhillComment on above:Performed By: #### LIVP, CDP, CREG #### [facility] [address] [place], [place] [id number] Skin Pass Operator: BARBARA ÁlvarezCH (RBC) [Entitic mass]27.0 tzIkmext08-24SsianSelect Medical Specialty Hospital - Cleveland-FairhillComment on above:Performed By: #### LIVP, CDP, CREG #### [facility] [address] [place] [phone] Skin Pass Operator: FORD ÁlvarezC (RBC) [Mass/Vol]32.7 g/gPQwocpe51-99EsawdSelect Medical Specialty Hospital - Cleveland-FairhillComment on above:Performed By: #### LIVP, CDP, CREG #### [facility] [address] [place] [phone] Skin Pass Operator: BARBARA ÁlvarezCV (RBC) [Entitic vol]82.7 hQIglpwp94-737NzgqySelect Medical Specialty Hospital - Cleveland-FairhillComment on above:Performed By: #### LIVP, CDP, CREG #### [facility] [address] [place], [place] [address] Skin Pass Operator: BARBARA Álvarezonocytes (Bld) [#/Vol]0.50 10*3/uLNormal0.0-1.0 [facility] on above:Performed By: #### LIVP, CDP, CREG #### [facility] [address] [place], [place] [address] Skin Pass Operator: BARBARA Álvarezonocytes/100 WBC (Bld)6 %Normal5-9[facility] - Cleveland-FairhillComment on above:Performed By: #### LIVP, CDP, CREG #### [facility] [address] [place] [phone] Skin Pass Operator: Adebayo Álvarezophil (Seg)75 %Bryebj71-57RkdyfSelect Medical Specialty Hospital - Cleveland-FairhillComment on above:Performed By: #### MARIELOS MURILLO, CREG #### [facility] [address] [place] [address] Skin Pass Operator: Ghislaine Álvareztelets (Bld) [#/Vol]362 10*3/wAHcwgft487-896 [facility] Cleveland-FairhillComment on above:Performed By: #### LIVReyes, CDP, CREG #### [facility] [address] [place] [address] Skin Pass Operator: GAB ÁlvarezBC (Bld) [#/Vol]2.94 10*6/uLLow4.5-5.9[facility] Cleveland-FairhillComment on above:Performed By: #### MARIELOS MURILLO, CREG #### [facility] [address] [place] [address] Skin Pass Operator: EDELMIRA ÁlvarezBC (Bld) [#/Vol]9.2 10*3/uLNormal3.5-11.0[facility]-FairhillComascension st. [facility] hospital on above:Performed By: #### MARIELOS MURILLO, CREG #### [facility] [address] [place] [address] Skin Pass Operator: BOUBACAR ÁlvarezNPLorri 30-82-4395EROLJxmptdStgvzfdsf Clinic ClevelandCreatinineon 90-32-3113Jqhrqdvjlx [Mass/Vol]0.94 mg/dL0.70 - 1.20 mg/dL [facility] HOSPITALGFR/1.73 sq M.predicted MDRD (S/P/Bld) [Vol rate/Area]- PINFBON [facility] on above: These results are not intended [...] that affects renal tubular secretion. Creatinine w/GFRon 95-40-8602Oeqcxeppqb [Mass/Vol]0.94 mg/dLNormal0.70-1.20[facility]-FairhillComment on above:Performed By: #### MARIELOS MURILLO, CREG #### [facility] [address] [place] [address] Skin Pass Operator: Miller Grande MDGFR/1.73 sq M.predicted among non-blacks MDRD (S/P/Bld) [Vol rate/Area]mL/min/{1.73_m2}Normal>60[facility] Cleveland-FairhillComment on above:Result Comment: These results are not intended for [...] or following therapy that affects renal tubular secretion.Performed By: #### MARIELOS MURILLO, CREG #### [facility] [address] [place] [address] Skin Pass Operator: Miller Grande MDHepatic Function Panelon 24-27-3092Qoegouk [Mass/Vol]3 g/dLLow3.5 - 5.2 g/dLBON SEC[facility]RS Standard Media IndexY HEALTHALP [Catalytic activity/Vol]101 U/L40 - 129 U/LBON SEC[facility]RS [facility] IndexY HEALTHALT [Catalytic activity/Vol]20 U/L5 - 41 U/LBON SEC[facility]RS [facility] IndexY HEALTHAST [Catalytic activity/Vol]18 U/LNINF - 40 U/LBON SEC[facility]RS [facility] IndexY HEALTHBilirubin [Mass/Vol]0.2 mg/dLLow0.3 - 1.2 mg/dLBON SECOURS [facility] CHILDREN'S HOSPITALY HEALTHBilirubin.direct [Mass/Vol]mg/dL NINF - 0.3 mg/dLBON SECOURS [facility] CHILDREN'S HOSPITALY HEALTHBilirubin.indirect [Mass/Vol]Can not be calculated0.0 - 1.0 mg/dLBON [facility] BARBERTON CAMPUSInterpretation and review of laboratory resultsAbnormalBON SUM[facility]ALTH BARBERTON CAMPUSProtein [Mass/Vol]6.6 g/dL6.4 - 8.3 g/dLBON SUM[facility] HEALTH BARBERTON CAMPUSLiver Profileon 51-15-1995Vfxmomg [Mass/Vol] 3.0 g/dLLow3.5-5.2MFirelands Regional Medical Center South CampusComment on above:Performed By: #### MARIELOS MURILLO, CREG #### [facility] [address] [place] [address] Skin Pass Operator: Chuck Álvarez Skyn520 U/YVubpao26-454PvodqSelect Medical Specialty Hospital - Cleveland-FairhillComment on above:Performed By: #### MARIELOS MURILLO, CREG #### [facility] [address] [place] [address] Skin Pass Operator: Miller Grande MDALT [Catalytic activity/Vol]20 U/LNormal5-41[facility] - Cleveland-FairhillComment on above:Performed By: #### MARIELOS MURILLO, CREG #### [facility] [address] [place] [address] Skin Pass Operator: Miller Grande MDAST [Catalytic activity/Vol]18 U/LNormal<40[facility] Cleveland-FairhillComment on above:Performed By: #### MARIELOS MURILLO, CREG #### [facility] [address] [place] [phone] Skin Pass Operator: Miller Grande MDBilirubin [Mass/Vol]0.2 mg/dLLow0.3-1.2MFirelands Regional Medical Center South CampusComment on above:Performed By: #### MARIELOS MURILLO, CREG #### [facility] [address] [place] [phone] Skin Pass Operator: Miller Grande MDBilirubin, IndirectCan not be calculatedNormal 0.0-1.0[facility] Cleveland-FairhillComment on above:Performed By: #### LIVP CDP, CREG #### [facility] [address] [place], [place] [address] Skin Pass Operator: Miller Grande MDBilirubin.indirect [Mass/Vol]mg/dLNormal<0.3[facility] Township HospitalComment on above:Performed By: #### LIVReyes CDP, CREG #### [facility] [address] [place] [phone] Skin Pass Operator: NADYA Álvarezrotein [Mass/Vol]6.6 g/dLNormal6.4-8.3[facility] HospitalComment on above:Performed By: #### MARIELOS MURILLO, CREG #### [facility] [address] [place] [address] Skin Pass Operator: Miller Grande MDNo Panel Informationon 09-44-3993QBV [facility] MEDICAL CENTERCNDSon 32-38-9160YBVXZzwqbjSbtdxxkdm Clinic ClevelandCNPNon 02-17-2023 CNPNNormalOhio State East HospitalCASE MANAGEMon 72-54-7212XXHF MANAGEMNormal [facility] East HospitalCB W Auto Differential panel (Bld)on 02-16-2023 Basophils (Bld) [#/Vol]0.13 10*3/uLHigh<0.11COhioHealth Southeastern Medical CenterComascension st. john hospital on above:Order Comment: Specimen Type: BLOOD SPECIMENOrdering Facility: [facility] Address:[address] [address]Performed By: #### 40420-0 ####[facility] LABCLIA [id number] [place] [address] [place] AMERICABasophils/100 WBC (Bld)1.3 %NormalWVUMedicine Barnesville Hospital on above:Order Comment: Specimen Type: BLOOD SPECIMENOrdering Facility: [facility] Address:[address] [address]Performed By: #### 32670-9 ####[facility] LABCLIA [id number] [place] [address] [place] AMERICADifferential cell count method Nom (Bld)AutoNormalCMercer County Community Hospital on above:Order Comment: Specimen Type: BLOOD SPECIMENOrdering Facility: [facility] Address:[address] [place], [place] [address]Performed By: #### 90328-6 ####[facility] LABCLIA [id number] [place] [address] [place] AMERICAEosinophils (Bld) [#/Vol]0.62 10*3/uLHigh<0.46WVUMedicine [facility] on above:Order Comment: Specimen Type: BLOOD SPECIMENOrdering Facility: [facility] Address:[address] [place], [place] [address]Performed By: #### 52566-6 ####[facility] LABIA [id number] [place] [address] [place] AMERICAEosinophils/100 WBC (Bld)6.1 % NormalWVUMedicine Barnesville Hospital on above:Order Comment: Specimen Type: BLOOD SPECIMENOrdering Facility: [facility] Address:[address] [place], [place] [address]Performed By: #### 14810-8 ####[facility] LABIA [id number] [place] [address] [place] AMERICAErythrocyte distribution width (RBC) [Ratio]15.5 %High 11.5-15.0WV[facility] on above:Order Comment: Specimen Type: BLOOD SPECIMENOrdering Facility: [facility] Address:[address] [place], [place] [address]Performed By: #### 24526-2 ####[facility] LABCLIA [id number] [place] [address] [place] AMERICAHematocrit (Bld) [Volume fraction]26.1 %Low 39.0-51.0[facility] on above:Order Comment: Specimen Type: BLOOD SPECIMENOrdering Facility: [facility] Address:[address] [place], [place] [address]Performed By: #### 61668-2 ####[facility] LABCLIA [id number] [place] [address] [place] AMERICAHemoglobin (Bld) [Mass/Vol]8.1 g/dLLow13.0-17.0 [facility] Campusment on above:Order Comment: Specimen Type: BLOOD SPECIMENOrdering Facility: [facility] Address:[address] [place], [place] [address]Performed By: #### 83043-5 ####[facility] LABIA [id number] [place] [address] [place] AMERICAImmature granulocytes (Bld) [#/Vol]0.07 10*3/uLNormal<0.10 [facility] on above:Order Comment: Specimen Type: BLOOD SPECIMENOrdering Facility: [facility] Address:[address] [place], [place] [address]Performed By: #### 93075-2 ####[facility] LABIA [id number] [place] [address] [place] AMERICAImmature granulocytes/100 WBC (Bld)0.7 %NormalWVUMedicine Barnesville Hospital on above:Order Comment: Specimen Type: BLOOD SPECIMENOrdering Facility: [facility] Address:[address] [place] [address]Performed By: #### 90842-3 ####[facility] LABIA [id number] [place] [address] [place] Lymphocytes (Bld) [#/Vol]1.09 10*3/uLNormal1.00-4.00[facility] Comment on above:Order Comment: Specimen Type: BLOOD SPECIMENOrdering Facility: [facility] Address:[address] [place], [place] [address] Performed By: #### 50047-2 ####[facility] LABIA [id number] [address] STATES OF [facility] Lymphocytes/100 WBC (Bld)10.8 %NormalWVUMedicine Barnesville Hospital on above: Order Comment: Specimen Type: BLOOD SPECIMENOrdering Facility: [facility] Address:[address] [place], [place] [address]Performed By: #### 45326-5 ####[facility] LABIA [id number] [address] (RBC) [Entitic mass]26.9 ydSizepp03.0-34.0[facility] on above:Order Comment: Specimen Type: BLOOD SPECIMENOrdering Facility: [facility] Address:[address] [place], [place] [address]Performed By: #### 03003-7 ####[facility] LABIA [id number] [address] STATES OF [facility]TR[facility] MEDICAL CENTERMCHC (RBC) [Mass/Vol] 31.0 g/hBVwwiwj68.5-36.0[facility] on above:Order Comment: Specimen Type: BLOOD SPECIMENOrdering Facility: [facility] Address:[address] [place] [address]Performed By: #### 99349-6 ####[facility] LABIA [id number] [address] (RBC) [Entitic vol]86.7 nIYxeftw69.0-100.0[facility] on above:Order Comment: Specimen Type: BLOOD SPECIMENOrdering Facility: [facility] Address:[address] [place] [address]Performed By: #### 28115-5 ####[facility] LABIA [id number] [place] [address] [place] AMERICAMonocytes (Bld) [#/Vol]0.69 10*3/uLNormal<0.87[facility] on above:Order Comment: Specimen Type: BLOOD SPECIMENOrdering Facility: [facility] Address:[address] [place], [place] [address]Performed By: #### 72921-6 ####[facility] LABCLIA [id number] [place] [address] [place] AMERICAMonocytes/100 WBC (Bld)6.8 %NormalWVUMedicine Barnesville [facility] on above:Order Comment: Specimen Type: BLOOD SPECIMENOrdering Facility: [facility] Address:[address] [place], [place] [address]Performed By: #### 98831-5 ####[facility] LABIA [id number] [place] [address] [place] AMERICANeutrophils (Bld) [#/Vol]7.52 10*3/uLHigh1.45-7.50[facility] on above:Order Comment: Specimen Type: BLOOD SPECIMENOrdering Facility: [facility] Address:[address] [place], [place] [address]Performed By: #### 90519-2 ####[facility] LABCLIA [id number] [place] [address] [place] AMERICANeutrophils/100 WBC (Bld)74.3 % NormalWVUMedicine [facility]ville [facility] on above:Order Comment: Specimen Type: BLOOD SPECIMENOrdering Facility: [facility] Address:[address] [place], [place] [address]Performed By: #### 87497-4 ####[facility] LABCLIA [id number] [place] [address] [place] AMERICANucleated RBC (Bld) [#/Vol]10*3/uLNormal<0.01[facility] on above:Order Comment: Specimen Type: BLOOD SPECIMENOrdering Facility: [facility] Address:[address] [place], [place] [address]Performed By: #### 94673-1 ####[facility] LABCLIA [id number] [place] [address] [place] AMERICANucleated RBC/100 WBC (Bld) [Ratio]0.0 /100 WBCNormalCMercer County Community Hospital on above:Order Comment: Specimen Type: BLOOD SPECIMENOrdering Facility: [facility] Address:[address] [place], [place] [address]Performed By: #### 61764-9 ####[facility] LABIA [id number] [place] [address] [place] AMERICAPlatelet mean volume (Bld) [Entitic vol]9.5 fLNormal9.0-12.7 [facility] on above:Order Comment: Specimen Type: BLOOD SPECIMENOrdering Facility: [facility] Address:[address] [place], [place] [address]Performed By: #### 33556-2 ####[facility] LABIA [id number] [place] [address] [place] AMERICAPlatelets (Bld) [#/Vol]423 10*3/hDSmqn652-401NqdgqbvvaWVUMedicine [facility] on above:Order Comment: Specimen Type: BLOOD SPECIMENOrdering Facility: [facility] Address:[address] [place] [id number] By: #### 22867-3 ####[facility] LABIA [id number] [place] [address] [place] RBC (Bld) [#/Vol]3.01 10*6/uLLow4.20-6.00[facility] on above:Order Comment: Specimen Type: BLOOD SPECIMENOrdering Facility: [facility] Address:[address] [place] [address]Performed By: #### 08319-6 ####[facility] LABCLIA [id number] [place] [address] [place] AMERICAWBC (Bld) [#/Vol]10.12 10*3/uLNormal3.70-11.00[facility] on above:Order Comment: Specimen Type: BLOOD SPECIMENOrdering Facility: [facility] Address:[address] [place], [place] [address]Performed By: #### 07229-7 ####[facility] LABIA [id number] [place] [address] [place] AMERICACNPNon 64-49-8346QMCQ NormalOhio State East HospitalCONSULT PROGon 08-03-2151BYINELQ PROGNormal [facility] HospitalCASE MANAGEMon 59-41-6089USXS MANAGEMNormalOhio State East HospitalCB W Auto Differential panel (Bld)on 98-59-3358Zkgtcvtlj (Bld) [#/Vol]0.12 10*3/uLHigh<0.11CMercer County Community [facility] on above:Order Comment: Specimen Type: BLOOD SPECIMENOrdering Facility: [facility] Address:[address] [place] [address]Performed By: #### 70045-8 ####[facility] LABIA [id number] [place] [address] [place] AMERICABasophils/100 WBC (Bld)1.4 %[facility] on above:Order Comment: Specimen Type: BLOOD SPECIMENOrdering Facility: [facility] Address:[address] [place], [place] [address]Performed By: #### 25668-5 ####[facility] LABIA [id number] [place] [address] [place] AMERICADifferential cell count method Nom (Bld)AutoNormalClevelKing's Daughters Medical [facility] [place] on above:Order Comment: Specimen Type: BLOOD SPECIMENOrdering Facility: [facility] Address:[address] [place], [place] [address]Performed By: #### 38273-2 ####[facility] LABIA [id number] [place] [address] [place] AMERICAEosinophils (Bld) [#/Vol]0.55 10*3/uLHigh<0.46[facility] on above:Order Comment: Specimen Type: BLOOD SPECIMENOrdering Facility: [facility] Address:[address] [place], [place] [address]Performed By: #### 65659-8 ####[facility] LABIA [id number] [place] [address] [place] AMERICAEosinophils/100 WBC (Bld)6.3 % NormalWVUMedicine [facility] on above:Order Comment: Specimen Type: BLOOD SPECIMENOrdering Facility: [facility] Address:[address] [place], [place] [address]Performed By: #### 04636-5 ####[facility] LABIA [id number] [place] [address] [place] AMERICAErythrocyte distribution width (RBC) [Ratio]15.5 %High 11.5-15.0[facility] on above:Order Comment: Specimen Type: BLOOD SPECIMENOrdering Facility: [facility] Address:[address] [place], [place] [address]Performed By: #### 97566-8 ####[facility] LABIA [id number] [place] [address] [place] AMERICAHematocrit (Bld) [Volume fraction]25.5 %Low 39.0-51.0[facility] on above:Order Comment: Specimen Type: BLOOD SPECIMENOrdering Facility: [facility] Address:[address] [place], [place] [address]Performed By: #### 25109-4 ####[facility] LABCLIA [id number] [place] [address] [place] AMERICAHemoglobin (Bld) [Mass/Vol]8.0 g/dLLow13.0-17.0 [facility] on above:Order Comment: Specimen Type: BLOOD SPECIMENOrdering Facility: [facility] Address:[address] [place], [place] [address]Performed By: #### 88717-4 ####[facility] LABIA [id number] [place] [address] [place] AMERICAImmature granulocytes (Bld) [#/Vol]0.08 10*3/uLNormal<0.10 [facility] Campusment on above:Order Comment: Specimen Type: BLOOD SPECIMENOrdering Facility: [facility] Address:[address] [place], [place] [address]Performed By: #### 50177-5 ####[facility] LABIA [id number] [place] [address] [place] AMERICAImmature granulocytes/100 WBC (Bld)0.9 %[facility] on above:Order Comment: Specimen Type: BLOOD SPECIMENOrdering Facility: [facility] Address:[address] [place], [place] [address]Performed By: #### 44969-8 ####[facility] LABIA [id number] [place] [address] [place] Lymphocytes (Bld) [#/Vol]1.45 10*3/uLNormal1.00-4.00[facility] Comment on above:Order Comment: Specimen Type: BLOOD SPECIMENOrdering Facility: [facility] Address:[address] [place] [address] Performed By: #### 56048-3 ####[facility] LABIA [id number] [place] [address] [place] Lymphocytes/100 WBC (Bld)16.5 %NormalWVUMedicine [facility] on above: Order Comment: Specimen Type: BLOOD SPECIMENOrdering Facility: [facility] Address:[address] [place], [place] [address]Performed By: #### 47091-6 ####[facility] LABIA [id number] [address] (RBC) [Entitic mass]27.0 wiFcnspo75.0-34.0[facility] on above:Order Comment: Specimen Type: BLOOD SPECIMENOrdering Facility: [facility] Address:[address] [place], [place] [address]Performed By: #### 29516-5 ####[facility] LABIA [id number] [address] STE[address] STREETMCHC (RBC) [Mass/Vol] 31.4 g/tWHfdqyt83.5-36.0[facility] on above:Order Comment: Specimen Type: BLOOD SPECIMENOrdering Facility: [facility] Address:[address] [place], [place] [address]Performed By: #### 40546-5 ####[facility] LABIA [id number] [address] (RBC) [Entitic vol]86.1 zMThngas38.0-100.0[facility] on above:Order Comment: Specimen Type: BLOOD SPECIMENOrdering Facility: [facility] Address:[address] [place] [address]Performed By: #### 10302-0 ####[facility] LABIA [id number] [address]ETMonocytes (Bld) [#/Vol]0.66 10*3/uLNormal<0.87[facility] on above:Order Comment: Specimen Type: BLOOD SPECIMENOrdering Facility: [facility] Address:[address] [place], [place] [address]Performed By: #### 64023-6 ####[facility] LABCLIA [id number] [place] [address] [place] AMERICAMonocytes/100 WBC (Bld)7.5 %NormalWVUMedicine [facility] on above:Order Comment: Specimen Type: BLOOD SPECIMENOrdering Facility: [facility] Address:[address] [place] [address]Performed By: #### 57354-7 ####[facility] LABCLIA [id number] [place] [address] [place] AMERICANeutrophils (Bld) [#/Vol]5.92 10*3/uLNormal1.45-7.50[facility] on above:Order Comment: Specimen Type: BLOOD SPECIMENOrdering Facility: [facility] Address:[address] [place], [place] [address]Performed By: #### 45516-4 ####[facility] LABIA [id number] [place] [address] [place] AMERICANeutrophils/100 WBC (Bld)67.4 % NormalWVUMedicine [facility] on above:Order Comment: Specimen Type: BLOOD SPECIMENOrdering Facility: [facility] Address:[address] [place] [id number] By: #### 31179-9 ####[facility] LABCLIA [id number] [place] [address] [place] AMERICANucleated RBC (Bld) [#/Vol]10*3/uLNormal<0.01[facility] on above:Order Comment: Specimen Type: BLOOD SPECIMENOrdering Facility: [facility] Address:[address] [place] [address]Performed By: #### 38143-9 ####[facility] LABCLIA [id number] [place] [address] [place] AMERICANucleated RBC/100 WBC (Bld) [Ratio]0.0 /100 WBCNormalCMercer County Community Hospital on above:Order Comment: Specimen Type: BLOOD SPECIMENOrdering Facility: [facility] Address:[address] [place], [place] [address]Performed By: #### 38762-9 ####[facility] LABCLIA [id number] [place] [address] [place] AMERICAPlatelet mean volume (Bld) [Entitic vol]9.6 fLNormal9.0-12.7 [facility] on above:Order Comment: Specimen Type: BLOOD SPECIMENOrdering Facility: [facility] Address:[address] [place], [place] [address]Performed By: #### 49290-5 ####[facility] LABCLIA [id number] [place] [address] [place] AMERICAPlatelets (Bld) [#/Vol]447 10*3/iYGmxv373-611RkroozltnWVUMedicine [facility] on above:Order Comment: Specimen Type: BLOOD SPECIMENOrdering Facility: [facility] Address:[address] [place] [address]Performed By: #### 76211-6 ####[facility] LABIA [id number] [place] [address] [place] RBC (Bld) [#/Vol]2.96 10*6/uLLow4.20-6.00[facility] on above:Order Comment: Specimen Type: BLOOD SPECIMENOrdering Facility: [facility] Address:[address] [place] [address]Performed By: #### 11496-4 ####[facility] LABCLIA [id number] [place] [address] [place] AMERICAWBC (Bld) [#/Vol]8.78 10*3/uLNormal3.70-11.00[facility] on above:Order Comment: Specimen Type: BLOOD SPECIMENOrdering Facility: [facility] Address:[address] [place], [place] [address]Performed By: #### 87554-2 ####[facility] LABCLIA [id number] [place] [address] [place] AMERICATHERAPY NTon 37-90-0799FVOVFWY NT NormalCorey Hospital W Auto Differential panel (Bld)on 02-14-2023 Basophils (Bld) [#/Vol]0.15 10*3/uLHigh<0.11CMer[facility] on above:Order Comment: Specimen Type: BLOOD SPECIMENOrdering Facility: [facility] Address:[address] [place], [place] [address]Performed By: #### 32941-2 ####[facility] LABCLIA [id number] [place] [address] [place] AMERICABasophils/100 WBC (Bld)1.8 %NormalWVUMedicine [facility] on above:Order Comment: Specimen Type: BLOOD SPECIMENOrdering Facility: [facility] Address:[address] [place], [place] [address]Performed By: #### 84266-8 ####[facility] LABCLIA [id number] [place] [address] [place] AMERICADifferential cell count method Nom (Bld)AutoNormalCMercer County Community Hospital on above:Order Comment: Specimen Type: BLOOD SPECIMENOrdering Facility: [facility] Address:[address] [place], [place] [address]Performed By: #### 77409-4 ####[facility] LABCLIA [id number] [place] [address] [place] AMERICAEosinophils (Bld) [#/Vol]0.49 10*3/uLHigh<0.46[facility] on above:Order Comment: Specimen Type: BLOOD SPECIMENOrdering Facility: [facility] Address:[address] [place], [place] [address]Performed By: #### 74539-8 ####[facility] LABCLIA [id number] [place] [address] [place] AMERICAEosinophils/100 WBC (Bld)5.8 % NormalWVUMedicine [facility] Hospital on above:Order Comment: Specimen Type: BLOOD SPECIMENOrdering Facility: [facility] Address:[address] [place], [place] [address]Performed By: #### 16456-5 ####[facility] LABIA [id number] [place] [address] [place] AMERICAErythrocyte distribution width (RBC) [Ratio]15.6 %High 11.5-15.0[facility] on above:Order Comment: Specimen Type: BLOOD SPECIMENOrdering Facility: [facility] Address:[address] [place], [place] [address]Performed By: #### 84107-8 ####[facility] LABCLIA [id number] [place] [address] [place] AMERICAHematocrit (Bld) [Volume fraction]27.2 %Low 39.0-51.0[facility] on above:Order Comment: Specimen Type: BLOOD SPECIMENOrdering Facility: [facility] Address:[address] [place], [place] [address]Performed By: #### 83121-0 ####[facility] LABCLIA [id number] [place] [address] [place] AMERICAHemoglobin (Bld) [Mass/Vol]8.4 g/dLLow13.0-17.0 [facility] on above:Order Comment: Specimen Type: BLOOD SPECIMENOrdering Facility: [facility] Address:[address] [place], [place] [address]Performed By: #### 39045-9 ####[facility] LABCLIA [id number] [place] [address] [place] AMERICAImmature granulocytes (Bld) [#/Vol]0.07 10*3/uLNormal<0.10 [facility] [address] [address] [facility] on above:Order Comment: Specimen Type: BLOOD SPECIMENOrdering Facility: [facility] Address:[address] [place], [place] [address]Performed By: #### 26853-4 ####[facility] LABIA [id number] [place] [address] [place] AMERICAImmature granulocytes/100 WBC (Bld)0.8 %NormalWVUMedicine [facility] on above:Order Comment: Specimen Type: BLOOD SPECIMENOrdering Facility: [facility] Address:[address] [place], [place] [address]Performed By: #### 08366-8 ####[facility] LABIA [id number] [place] [address] [place] Lymphocytes (Bld) [#/Vol]1.54 10*3/uLNormal1.00-4.00[facility] Comment on above:Order Comment: Specimen Type: BLOOD SPECIMENOrdering Facility: [facility] Address:[address] [place] [address] Performed By: #### 88737-4 ####[facility] LABIA [id number] [place] [address] [place] Lymphocytes/100 WBC (Bld)18.3 %NormalWVUMedicine [facility] on above: Order Comment: Specimen Type: BLOOD SPECIMENOrdering Facility: [facility] Address:[address] [place], [place] [address]Performed By: #### 66625-2 ####[facility] LABIA [id number] [place] [address] [place] AMERICAMCH (RBC) [Entitic mass]26.8 qvSzjciy66.0-34.0[facility] on above:Order Comment: Specimen Type: BLOOD SPECIMENOrdering Facility: [facility] Address:[address] [place], [place] [address]Performed By: #### 20318-2 ####[facility] LABIA [id number] [place] [address] [place] AMERICAMCHC (RBC) [Mass/Vol] 30.9 g/bSHdkpvy01.5-36.0[facility] on above:Order Comment: Specimen Type: BLOOD SPECIMENOrdering Facility: [facility] Address:[address] [place], [place] [address]Performed By: #### 00846-5 ####[facility] LABIA [id number] [place] [address] [place] [facility] AMERICAMCV (RBC) [Entitic vol]86.6 fHWnsunb12.0-100.0[facility] on above:Order Comment: Specimen Type: BLOOD SPECIMENOrdering Facility: [facility] Address:[address] [place], [place] [address]Performed By: #### 36117-7 ####[facility] LABIA [id number] [place] [address] [place] AMERICAMonocytes (Bld) [#/Vol]0.75 10*3/uLNormal<0.87[facility] on above:Order Comment: Specimen Type: BLOOD SPECIMENOrdering Facility: [facility] Address:[address] [place], [place] [address]Performed By: #### 16855-9 ####[facility] LABIA [id number] [place] [address] [place] AMERICAMonocytes/100 WBC (Bld)8.9 %NormalWVUMedicine [facility] on above:Order Comment: Specimen Type: BLOOD SPECIMENOrdering Facility: [facility] Address:[address] [place] [address]Performed By: #### 15027-4 ####[facility] LABCLIA [id number] [place] [address] [place] AMERICANeutrophils (Bld) [#/Vol]5.43 10*3/uLNormal1.45-7.50[facility] on above:Order Comment: Specimen Type: BLOOD SPECIMENOrdering Facility: [facility] Address:[address] [place], [place] [address]Performed By: #### 13107-7 ####[facility] LABIA [id number] [place] [address] [place] AMERICANeutrophils/100 WBC (Bld)64.4 % NormalWVUMedicine [facility] Hospital on above:Order Comment: Specimen Type: BLOOD SPECIMENOrdering Facility: [facility] Address:[address] [place], [place] [address]Performed By: #### 03370-9 ####[facility] LABIA [id number] [place] [address] [place] AMERICANucleated RBC (Bld) [#/Vol]10*3/uLNormal<0.01[facility] on above:Order Comment: Specimen Type: BLOOD SPECIMENOrdering Facility: [facility] Address:[address] [place] [address]Performed By: #### 52523-8 ####[facility] LABCLIA [id number] [place] [address] [place] AMERICANucleated RBC/100 WBC (Bld) [Ratio]0.0 /100 WBCNormalCMercer County Community Hospital on above:Order Comment: Specimen Type: BLOOD SPECIMENOrdering Facility: [facility] Address:[address] [place], [place] [address]Performed By: #### 23940-3 ####[facility] LABIA [id number] [place] [address] [place] AMERICAPlatelet mean volume (Bld) [Entitic vol]9.4 fLNormal9.0-12.7 [facility] on above:Order Comment: Specimen Type: BLOOD SPECIMENOrdering Facility: [facility] Address:[address] [place], [place] [address]Performed By: #### 73333-1 ####[facility] LABCLIA [id number] [place] [address] [place] AMERICAPlatelets (Bld) [#/Vol]478 10*3/vQIwpt725-130BjxnxcwrmWVUMedicine Barnesville Hospital on above:Order Comment: Specimen Type: BLOOD SPECIMENOrdering Facility: [facility] Address:[address] [place], [place] [address]Performed By: #### 29548-8 ####[facility] LABCLIA [id number] [place] [address] [place] RBC (Bld) [#/Vol]3.14 10*6/uLLow4.20-6.00[facility] on above:Order Comment: Specimen Type: BLOOD SPECIMENOrdering Facility: [facility] Address:[address] [place] [address]Performed By: #### 99415-8 ####[facility] LABCLIA [id number] [place] [address] [place] AMERICAWBC (Bld) [#/Vol]8.43 10*3/uLNormal3.70-11.00[facility] on above:Order Comment: Specimen Type: BLOOD SPECIMENOrdering Facility: [facility] Address:[address] [place], [place] [address]Performed By: #### 41782-4 ####[facility] LABCLIA [id number] [place] [address] [place] AMERICACONSULT PROGon 32-91-7647DSREFPQ PROGNormalSelect Medical Specialty [facility] + SCREENon 52-79-4937XQRZUwdehf [facility] on above:Order Comment: Specimen Type: BLOOD SPECIMENOrdering Facility: [facility] Address:[address] [place], [place] [address]Performed By: #### TSCR ####CC MAIN BLOOD BANKCLIA [id number] [address] STREETHISTORICAL AB SCR STATUSNegativeNormMarion Hospital on above:Order Comment: Specimen Type: BLOOD SPECIMENOrdering Facility: [facility] Address:[address] [place] [address] Performed By: #### TSCR ####CC MAIN BLOOD BANKCLIA [id number] [address] ST[address]ETRh Nom (Bld)Positive NormalWVUMedicine Barnesville Hospital on above:Order Comment: Specimen Type: BLOOD SPECIMENOrdering Facility: [facility] Address:[address] [place], [place] [address]Performed By: #### TSCR ####CC MAIN BLOOD BANKCLIA [id number] [place] [address] [place] [facility]ENTERTYPE AND SCREEN GFWKTXLUAV94/06/2023 23:59NormalCMercer County Community Hospital on above:Order Comment: Specimen Type: BLOOD SPECIMENOrdering Facility: [facility] Address:[address] [place] [address]Performed By: #### TSCR ####CC MAIN BLOOD BANKCLIA [id number] [place] [id number] [facility]ITALCB W Auto Differential panel (Bld)on 81-88-2969Ezcvgmywp (Bld) [#/Vol]0.14 10*3/uLHigh <0.11CMercer County Community Hospital on above:Order Comment: Specimen Type: BLOOD SPECIMENOrdering Facility: [facility] Address:[address] [place] [address]Performed By: #### 44455-2 ####[facility] LABCLIA [id number] [place] [address] [place] AMERICABasophils/100 WBC (Bld)1.8 %NormalWVUMedicine Barnesville Hospital on above:Order Comment: Specimen Type: BLOOD SPECIMENOrdering Facility: [facility] Address:[address] [place], [place] [address]Performed By: #### 88760-4 ####[facility] LABCLIA [id number] [place] [address] [place] Differential cell count method Nom (Bld)AutoNormalClevelNovant Health New [facility] Comment on above:Order Comment: Specimen Type: BLOOD SPECIMENOrdering Facility: [facility] Address:[address] [place], [place] [id number] Performed By: #### 08346-1 ####[facility] LABCLIA [id number] [place] [address] [place] Eosinophils (Bld) [#/Vol]0.43 10*3/uLNormal<0.46[facility] Comment on above:Order Comment: Specimen Type: BLOOD SPECIMENOrdering Facility: [facility] Address:[address] [place] [address] Performed By: #### 35841-4 ####[facility] LABIA [id number] [place] [address] [place] Eosinophils/100 WBC (Bld)5.6 %NormalOhio State East HospitalComascension st. [facility] on above: Order Comment: Specimen Type: BLOOD SPECIMENOrdering Facility: [facility] Address:[address] [place] [address]Performed By: #### 60122-8 ####[facility] LABCLIA [id number] [place] [address] [place] AMERICAErythrocyte distribution width (RBC) [Ratio]15.5 %High11.5-15.0[facility] Comment on above:Order Comment: Specimen Type: BLOOD SPECIMENOrdering Facility: [facility] Address:[address] [place], [place] [id number] Performed By: #### 04542-1 ####[facility] LABIA [id number] [place] [address] [place] Hematocrit (Bld) [Volume fraction]26.0 %Low39.0-51.0[facility] Comment on above:Order Comment: Specimen Type: BLOOD SPECIMENOrdering Facility: [facility] Address:[address] [place], [place] [id number] Performed By: #### 38005-2 ####[facility] LABIA [id number] [place] [address] [place] Hemoglobin (Bld) [Mass/Vol]8.2 g/dLLow13.0-17.0[facility] HospitalComment on above:Order Comment: Specimen Type: BLOOD SPECIMENOrdering Facility: [facility] Address:[address] [place], [place] [id number] Performed By: #### 99719-1 ####[facility] LABIA [id number] [place] [address] [place] Immature granulocytes (Bld) [#/Vol]0.06 10*3/uLNormal<0.10[facility] HospitalComment on above:Order Comment: Specimen Type: BLOOD SPECIMENOrdering Facility: [facility] Address:[address] [place] [address]Performed By: #### 59359-3 ####[facility] LABIA [id number] [address] [place] Immature granulocytes/100 WBC (Bld)0.8 %NormalWVUMedicine Barnesville Hospital on above:Order Comment: Specimen Type: BLOOD SPECIMENOrdering Facility: [facility] Address:[address] [place], [place] [address] Performed By: #### 59751-3 ####[facility] LABCLIA [id number] [place] [address] [place] Lymphocytes (Bld) [#/Vol]1.99 10*3/uLNormal1.00-4.00[facility] Comment on above:Order Comment: Specimen Type: BLOOD SPECIMENOrdering Facility: [facility] Address:[address] [place] [address] Performed By: #### 46904-0 ####[facility] LABIA [id number] [place] [address] [place] Lymphocytes/100 WBC (Bld)26.0 %NormalOhio State East HospitalComment on above: Order Comment: Specimen Type: BLOOD SPECIMENOrdering Facility: [facility] Address:[address] [place], [place] [address]Performed By: #### 55938-5 ####[facility] LABIA [id number] [address] (RBC) [Entitic mass]27.2 deRlalce75.0-34.0[facility] HospitalComment on above:Order Comment: Specimen Type: BLOOD SPECIMENOrdering Facility: [facility] Address:[address] [place], [place] [address]Performed By: #### 93169-8 ####[facility] LABIA [id number] [address] OF [facility]ENTERMCHC (RBC) [Mass/Vol] 31.5 g/uNGjfthc06.5-36.0[facility] on above:Order Comment: Specimen Type: BLOOD SPECIMENOrdering Facility: [facility] Address:[address] [place] [address]Performed By: #### 56689-3 ####[facility] LABIA [id number] [address] (RBC) [Entitic vol]86.1 fKFtfbcx71.0-100.0[facility] on above:Order Comment: Specimen Type: BLOOD SPECIMENOrdering Facility: [facility] Address:[address] [place], [place] [address]Performed By: #### 79115-7 ####[facility] LABCLIA [id number] [place] [address] [place] AMERICAMonocytes (Bld) [#/Vol]0.57 10*3/uLNormal<0.87[facility] on above:Order Comment: Specimen Type: BLOOD SPECIMENOrdering Facility: [facility] Address:[address] [place], [place] [address]Performed By: #### 99355-3 ####[facility] LABIA [id number] [place] [address] [place] AMERICAMonocytes/100 WBC (Bld)7.5 %NormalWVUMedicine Barnesville Hospital on above:Order Comment: Specimen Type: BLOOD SPECIMENOrdering Facility: [facility] Address:[address] [place], [place] [address]Performed By: #### 19706-8 ####[facility] LABCLIA [id number] [place] [address] [place] AMERICANeutrophils (Bld) [#/Vol]4.45 10*3/uLNormal1.45-7.50[facility] on above:Order Comment: Specimen Type: BLOOD SPECIMENOrdering Facility: [facility] Address:[address] [place], [place] [address]Performed By: #### 52912-0 ####[facility] LABCLIA [id number] [place] [address] [place] AMERICANeutrophils/100 WBC (Bld)58.3 % NormalWVUMedicine Barnesville Hospital on above:Order Comment: Specimen Type: BLOOD SPECIMENOrdering Facility: [facility] Address:[address] [place] [address]Performed By: #### 20388-4 ####[facility] LABCLIA [id number] [place] [address] [place] AMERICANucleated RBC (Bld) [#/Vol]10*3/uLNormal<0.01[facility] on above:Order Comment: Specimen Type: BLOOD SPECIMENOrdering Facility: [facility] Address:[address] [place] [address]Performed By: #### 06004-5 ####[facility] LABCLIA [id number] [place] [address] [place] AMERICANucleated RBC/100 WBC (Bld) [Ratio]0.0 /100 WBCNormalCMercer County Community Hospital on above:Order Comment: Specimen Type: BLOOD SPECIMENOrdering Facility: [facility] Address:[address] [place] [address]Performed By: #### 60823-7 ####[facility] LABIA [id number] [place] [address] [place] AMERICAPlatelet mean volume (Bld) [Entitic vol]9.3 fLNormal9.0-12.7 [facility] on above:Order Comment: Specimen Type: BLOOD SPECIMENOrdering Facility: [facility] Address:[address] [place] [phone] By: #### 29928-6 ####[facility] LABCLIA [id number] [place] [address] [place] AMERICAPlatelets (Bld) [#/Vol]509 10*3/dCQrsw203-176KuietymbeWVUMedicine Barnesville Hospital on above:Order Comment: Specimen Type: BLOOD SPECIMENOrdering Facility: [facility] Address:[address] [place] [address]Performed By: #### 52393-4 ####[facility] LABCLIA [id number] [place] [address] [place] RBC (Bld) [#/Vol]3.02 10*6/uLLow4.20-6.00[facility] on above:Order Comment: Specimen Type: BLOOD SPECIMENOrdering Facility: [facility] Address:[address] [place], [place] [address]Performed By: #### 68394-5 ####[facility] [id number] [place] [address] [place] AMERICAWBC (Bld) [#/Vol]7.64 10*3/uLNormal3.70-11.00[facility] on above:Order Comment: Specimen Type: BLOOD SPECIMENOrdering Facility: [facility] Address:[address] [place], [place] [address]Performed By: #### 19721-2 ####[facility] [id number] [place] [address] [place] AMERICACONSULT PROGon 80-14-5507KTHUVAI PROGNormalOhio State East HospitalComprehensive metabolic 2000 panelon 24-81-9554Syxudrd [Mass/Vol]3.2 g/dLLow3.9-4.9CMercer County Community Hospital on above:Order Comment: Specimen Type: BLOOD SPECIMENOrdering Facility: [facility] Address:[address] [place] [address] Performed By: #### 46961-8 ####[facility] [id number] [place] [address] [place] ALP [Catalytic activity/Vol]128 U/BAkap30-832FgzibpqleWVUMedicine Barnesville Hospital on above:Order Comment: Specimen Type: BLOOD SPECIMENOrdering Facility: [facility] Address:[address] [place], [place] [address] Performed By: #### 12454-6 ####[facility] LABVERM[facility] [id number] [place] [address] [place] ALT [Catalytic activity/Vol]68 U/MPxka96-12TbgmsbmvxWVUMedicine [facility]ville Hospital on above:Order Comment: Specimen Type: BLOOD SPECIMENOrdering Facility: [facility] Address:[address] [place], [place] [address]Performed By: #### 97959-6 ####[facility] LABCLIA [id number] [place] [address] [place] AMERICAAnion gap [Moles/Vol] 12 mmol/LNormal9-18[facility] on above:Order Comment: Specimen Type: BLOOD SPECIMENOrdering Facility: [facility] Address:[address] [place], [place] [address]Performed By: #### 04037-7 ####[facility] LABCLIA [id number] [place] [address] [place] AMERICAAST [Catalytic activity/Vol]23 U/LMmcesl84-50WatvaslysWVUMedicine Barnesville Hospital on above:Order Comment: Specimen Type: BLOOD SPECIMENOrdering Facility: [facility] Address:[address] [place], [place] [address]Performed By: #### 52132-6 ####[facility] LABCLIA [id number] [place] [address] [place] AMERICABilirubin [Mass/Vol]mg/dLLow0.2-1.3CMercer County Community Hospital on above:Order Comment: Specimen Type: BLOOD SPECIMENOrdering Facility: [facility] Address:[address] [place], [place] [address]Performed By: #### 20669-3 ####[facility] LABCLIA [id number] [place] [address] [place] AMERICACalcium [Mass/Vol]9.0 mg/dLNormal8.5-10.2CMercer County Community Hospital on above:Order Comment: Specimen Type: BLOOD SPECIMENOrdering Facility: [facility] Address:[address] [place], [place] [address]Performed By: #### 93286-0 ####[facility] LABCLIA [id number] [place] [address] [place] Chloride [Moles/Vol]102 mmol/YApgoca53-996EwfspjdcaWVUMedicine Barnesville Hospital on above:Order Comment: Specimen Type: BLOOD SPECIMENOrdering Facility: [facility] Address:[address] [place], [place] [address]Performed By: #### 52544-0 ####[facility] LABIA [id number] [place] [address] [place] AMERICACO2 [Moles/Vol]25 mmol/WPutbjp05-85WzjihjbgnWVUMedicine Barnesville Hospital on above:Order Comment: Specimen Type: BLOOD SPECIMENOrdering Facility: [facility] Address:[address] [place], [place] [address]Performed By: #### 54353-5 ####[facility] LABIA [id number] [place] [address] [place] AMERICACreatinine [Mass/Vol]1.09 mg/dL Normal0.73-1.22[facility] on above:Order Comment: Specimen Type: BLOOD SPECIMENOrdering Facility: [facility] Address:[address] [place], [place] [address]Performed By: #### 17912-6 ####[facility] LABIA [id number] [place] [address] [place] AMERICAESTIMATED GLOMERULAR FILTRATION RATE78 mL/min/1.73m???Normal>=60[facility] on above:Order Comment: Specimen Type: BLOOD SPECIMENOrdering Facility: [facility] Address:[address] [place], [place] [address]Result Comment: Estimated Glomerular Filtration Rate (eGFR) is calculated using the 2020 CKD-EPI creatinine equation. This equation utilizes serum creatinine, sex, and age as parameters. The creatinine assay has traceable calibration to isotope dilution- mass spectrometry. Refer to KDIGO guidelines for clinical interpretation. In patients with unstable renal function, e.g. those with acute kidney injury, the eGFR may not accurately reflect actual GFR.Performed By: #### 34339-6 ####[facility] LABCLIA [id number] [place] [address] [place] AMERICAGlucose [Mass/Vol]134 mg/dLHigh 74-99[facility] on above:Order Comment: Specimen Type: BLOOD SPECIMENOrdering Facility: [facility] Address:[address] [place] [address]Itvfdy Comment: The [place] [employer] (ADA) provides guidance for cutoff values for fasting glucose and random glucose. The ADA defines fasting as no caloric intake for at least 8 hours. F asting plasma glucose results between 100 to 125 mg/dL indicate increased risk for diabetes (prediabetes).Fasting plasma glucose results greater than or equal to 126 mg/dL meet the criteria for diagnosis of diabetes. In the absence of unequivocal hyperglycemia, results should be confirmed by repeattesting. In a patient with classic symptoms of hyperglycemia or hyperglycemic crisis, random plasmaglucose results greater than or equal to 200 mg/dL meet the criteria for diagnosis of diabetes.Reference: Standards of Medical Care in Diabetes 2016, [place] [employer]. Diabetes Care. 2016.39(Suppl 1).Performed By: #### 69104-1 ####[facility] LABCLIA [id number] [place] [id number] [place] AMERICAPotassium [Moles/Vol] 4.3 mmol/LNormal3.7-5.1CMercer County Community Hospital on above:Order Comment: Specimen Type: BLOOD SPECIMENOrdering Facility: [facility] Address:[address] [place] [address]Rwwqzntlr By: #### 76450-2 ####[facility] LABCLIA [id number] [place] [address] [place] AMERICAProtein [Mass/Vol]6.7 g/dLNormal 6.3-8.0[facility] on above:Order Comment: Specimen Type: BLOOD SPECIMENOrdering Facility: [facility] Address:[address] [place], [place] [address]Performed By: #### 08447-3 ####[facility] LABIA [id number] [place] [address] [place] [facility] CENTERSodium [Moles/Vol]139 mmol/NSurzix495-745PorzwaqutWVUMedicine Barnesville Hospital on above:Order Comment: Specimen Type: BLOOD SPECIMENOrdering Facility: [facility] Address:[address] [place], [place] [address]Performed By: #### 09706-6 ####[facility] [id number] [place] [address] [place] AMERICAUrea nitrogen [Mass/Vol]22 mg/dLNormal9-24[facility] on above:Order Comment: Specimen Type: BLOOD SPECIMENOrdering Facility: [facility] Address:[address] [place], [place] [address]Performed By: #### 49142-3 ####[facility] [id number] [place] [address] [place] CBC W Auto Differential panel (Bld)on 69-74-3318Riuvphuoc (Bld) [#/Vol]0.05 10*3/uLNormal<0.11CMercer County Community Hospital on above:Order Comment: Specimen Type: BLOOD SPECIMENOrdering Facility: [facility] Address:[address] [place], [place] [address]Performed By: #### 62572-4 ####[facility] [id number] [place] [address] [place] AMERICABasophils/100 WBC (Bld)0.6 % NormalWVUMedicine Barnesville Hospital on above:Order Comment: Specimen Type: BLOOD SPECIMENOrdering Facility: [facility] Address:[address] [place], [place] [address]Performed By: #### 91137-0 ####[facility] LABIA [id number] [place] [address] [place] AMERICADifferential cell count method Nom (Bld)AutoNormal [facility] HospitalComascension st. j[facility] hospital on above:Order Comment: Specimen Type: BLOOD SPECIMENOrdering Facility: [facility] Address:[address] [place] [address]Performed By: #### 49506-5 ####[facility] LABIA [id number] [place] [address] [place] [facility] CENTEREosinophils (Bld) [#/Vol]10*3/uLNormal<0.46[facility] HospitalComment on above:Order Comment: Specimen Type: BLOOD SPECIMENOrdering Facility: [facility] Address:[address] [place], [place] [address]Performed By: #### 73543-2 ####[facility] [id number] [place] [address] [place] Eosinophils/100 WBC (Bld)0.1 %NormalOhio State East HospitalComascension st. john hospital on above: Order Comment: Specimen Type: BLOOD SPECIMENOrdering Facility: [facility] Address:[address] [place] [address]Performed By: #### 22199-5 ####[facility] [id number] [place] [address] [place] AMERICAErythrocyte distribution width (RBC) [Ratio]15.4 %High11.5-15.0[facility] Comment on above:Order Comment: Specimen Type: BLOOD SPECIMENOrdering Facility: [facility] Address:[address] [place] [address] Performed By: #### 23945-3 ####[facility] LABIA [id number] [place] [address] [place] Hematocrit (Bld) [Volume fraction]25.8 %Low39.0-51.0[facility] Comment on above:Order Comment: Specimen Type: BLOOD SPECIMENOrdering Facility: [facility] Address:[address] [place] [address] Performed By: #### 96089-9 ####[facility] LABIA [id number] [place] [address] [place] Hemoglobin (Bld) [Mass/Vol]8.1 g/dLLow13.0-17.0[facility] HospitalComment on above:Order Comment: Specimen Type: BLOOD SPECIMENOrdering Facility: [facility] Address:[address] [place], [place] [address] Performed By: #### 39204-2 ####[facility] LABIA [id number] [place] [address] [place] Immature granulocytes (Bld) [#/Vol]0.07 10*3/uLNormal<0.10[facility] HospitalComment on above:Order Comment: Specimen Type: BLOOD SPECIMENOrdering Facility: [facility] Address:[address] [place], [place] [address]Performed By: #### 04469-3 ####[facility] LABIA [id number] [place] [address] [place] Immature granulocytes/100 WBC (Bld)0.8 %NormalOhio State East HospitalComment on above:Order Comment: Specimen Type: BLOOD SPECIMENOrdering Facility: [facility] Address:[address] [place] [address] Performed By: #### 39736-2 ####[facility] LABIA [id number] [place] [address] [place] Lymphocytes (Bld) [#/Vol]0.68 10*3/uLLow1.00-4.00[facility] Comment on above:Order Comment: Specimen Type: BLOOD SPECIMENOrdering Facility: [facility] Address:[address] [place], [place] [address] Performed By: #### 49097-8 ####[facility] LABCLIA [id number] [address] Lymphocytes/100 WBC (Bld)8.2 %NormalWVUMedicine Barnesville Hospital on above: Order Comment: Specimen Type: BLOOD SPECIMENOrdering Facility: [facility] Address:[address] [place] [address]Performed By: #### 30076-1 ####[facility] LABIA [id number] [address] (RBC) [Entitic mass]26.9 oaJxssos94.0-34.0[facility] on above:Order Comment: Specimen Type: BLOOD SPECIMENOrdering Facility: [facility] Address:[address] [place], [place] [address]Performed By: #### 05683-5 ####[facility] LABIA [id number] [address] STATES OF [facility] CENTERMCHC (RBC) [Mass/Vol] 31.4 g/aWEgweyp29.5-36.0[facility] on above:Order Comment: Specimen Type: BLOOD SPECIMENOrdering Facility: [facility] Address:[address] [place] [phone] By: #### 94008-4 ####[facility] LABIA [id number] [address] (RBC) [Entitic vol]85.7 xNNbwifh12.0-100.0[facility] on above:Order Comment: Specimen Type: BLOOD SPECIMENOrdering Facility: [facility] Address:[address] [place] [address]Performed By: #### 34283-3 ####[facility] LABIA [id number] [place] [address] [place] [address] [place] AMERICAMonocytes (Bld) [#/Vol]0.19 10*3/uLNormal<0.87[facility] on above:Order Comment: Specimen Type: BLOOD SPECIMENOrdering Facility: [facility] Address:[address] [place], [place] [address]Performed By: #### 36713-5 ####[facility] LABCLIA [id number] [place] [address] [place] AMERICAMonocytes/100 WBC (Bld)2.3 %NormalWVUMedicine Barnesville Hospital on above:Order Comment: Specimen Type: BLOOD SPECIMENOrdering Facility: [facility] Address:[address] [place], [place] [address]Performed By: #### 55598-9 ####[facility] LABCLIA [id number] [place] [address] [place] AMERICANeutrophils (Bld) [#/Vol]7.27 10*3/uLNormal1.45-7.50[facility] on above:Order Comment: Specimen Type: BLOOD SPECIMENOrdering Facility: [facility] Address:[address] [place], [place] [address]Performed By: #### 91130-3 ####[facility] LABCLIA [id number] [place] [address] [place] AMERICANeutrophils/100 WBC (Bld)88.0 % NormalWVUMedicine Barnesville Hospital on above:Order Comment: Specimen Type: BLOOD SPECIMENOrdering Facility: [facility] Address:[address] [place], [place] [address]Performed By: #### 03158-9 ####[facility] LABCLIA [id number] [place] [address] [place] AMERICANucleated RBC (Bld) [#/Vol]10*3/uLNormal<0.01[facility] on above:Order Comment: Specimen Type: BLOOD SPECIMENOrdering Facility: [facility] Address:[address] [place], [place] [address]Performed By: #### 10623-1 ####[facility] LABCLIA [id number] [place] [address] [place] AMERICANucleated RBC/100 WBC (Bld) [Ratio]0.0 /100 WBCNormalCMercer County Community Hospital on above:Order Comment: Specimen Type: BLOOD SPECIMENOrdering Facility: [facility] Address:[address] [place], [place] [address]Performed By: #### 50767-6 ####[facility] LABIA [id number] [place] [address] [place] AMERICAPlatelet mean volume (Bld) [Entitic vol]9.5 fLNormal9.0-12.7 [facility] on above:Order Comment: Specimen Type: BLOOD SPECIMENOrdering Facility: [facility] Address:[address] [place] [address]Performed By: #### 08118-5 ####[facility] LABIA [id number] [place] [address] [place] AMERICAPlatelets (Bld) [#/Vol]518 10*3/dXAbws048-091XjjpyzqojWVUMedicine Barnesville Hospital on above:Order Comment: Specimen Type: BLOOD SPECIMENOrdering Facility: [facility] Address:[address] [place] [phone] By: #### 51279-4 ####[facility] LABIA [id number] [place] [address] [place] RBC (Bld) [#/Vol]3.01 10*6/uLLow4.20-6.00[facility] on above:Order Comment: Specimen Type: BLOOD SPECIMENOrdering Facility: [facility] Address:[address] [place] [address]Performed By: #### 52794-8 ####[facility] LABCLIA [id number] [place] [address] [place] AMERICAWBC (Bld) [#/Vol]8.27 10*3/uLNormal3.70-11.00[facility] on above:Order Comment: Specimen Type: BLOOD SPECIMENOrdering Facility: [facility] Address:[address] [place] [address]Performed By: #### 10400-0 ####[facility] LABCLIA [id number] [place] [address] [place] AMERICACONSULT PROGon 20-94-1696ABAOBWS PROGNormalPremier Health [facility] POSTPROC EVALon 68-09-2277UBEY POSTPROC EVALNormalCTogus VA Medical Center PRE-OPon 64-84-9797LLBO PRE-OPNormal [facility] HospitalBRIEF OP NOTon 05-06-3596ABSPC OP NOTNormalCOhioHealth Southeastern Medical CenterBasi metabolic 2000 panelon 20-31-5013Yuhlv gap [Moles/Vol]12 mmol/LNormal9-18[facility] on above:Order Comment: Specimen Type: BLOOD SPECIMENOrdering Facility: [facility] Address:[address] [place] [address]Performed By: #### 49973-1 ####[facility] LABCLIA [id number] [place] [address] [place] AMERICACalcium [Mass/Vol]8.7 mg/dLNormal 8.5-10.2CMercer County Community Hospital on above:Order Comment: Specimen Type: BLOOD SPECIMENOrdering Facility: [facility] Address:[address] [place] [address]Performed By: #### 10154-6 ####[facility] LABCLIA [id number] [place] [address] [place] AMERICAChloride [Moles/Vol]100 mmol/XEbrrxq43-914 [facility] on above:Order Comment: Specimen Type: BLOOD SPECIMENOrdering Facility: [facility] Address:[address] [place], [place] [address]Performed By: #### 63993-7 ####[facility] LABCLIA [id number] [address] STATES OF [facility] MED[facility] CENTERCO2 [Moles/Vol]26 mmol/WNfqqkz66-07NsqlywoxqOhio State East Hospital Comment on above:Order Comment: Specimen Type: BLOOD SPECIMENOrdering Facility: [facility] Address:[address] [place] [address] Performed By: #### 33279-1 ####[facility] [id number] [address] STATES OF [facility] Creatinine [Mass/Vol]0.93 mg/dLNormal0.73-1.22[facility] on above:Order Comment: Specimen Type: BLOOD SPECIMENOrdering Facility: [facility] Address:[address] [place] [address] Performed By: #### [id number] ####[facility] [id number] [address] ESTIMATED GLOMERULAR FILTRATION RATE95 mL/min/1.73m???Normal>=60[facility] on above:Order Comment: Specimen Type: BLOOD SPECIMENOrdering Facility: [facility] Address:[address] [place], [place] [address]Result Comment: Estimated Glomerular Filtration Rate (eGFR) is calculated using the 2020 CKD-EPI creatinine equation. This equation utilizes serum creatinine, sex, and age as parameters. The creatinine assay has traceable calibration to isotope dilution-mass spectrometry. Refer to KDIGO guidelines f or clinical interpretation. In patients with unstable renal function, e.g. those with acute kidney injury, the eGFR may not accurately reflect actual GFR. Performed By: #### [id number] ####[facility] [id number] [place] [address] [place] Glucose [Mass/Vol]128 mg/gLKynd22-51PkojbtmllOhio State East HospitalComment on above: Order Comment: Specimen Type: BLOOD SPECIMENOrdering Facility: [facility] [facility] Address:[address] [place], [place] [address]Result Comment: The [place] [employer] (ADA) provides guidance for cutoff values for fast ing glucose and random glucose. The ADA defines fasting as no caloric intake for at least 8 hours. Fasting plasma glucose results between 100 to 125 mg/dL indicate increased risk for diabetes (prediabetes).Fasting plasma glucose results greater than or equal to 126 mg/dL meet the criteria for diagnosis of diabetes. In the absence of unequivocal hyperglycemia, results should be confirmed by repeattesting. In a patient with classic symptoms of hyperglycemia or hyperglycemic crisis, random plasmaglucose results greater than or equal to 200 mg/dL meet the criteria for diagnosis of diabetes.Reference: Standards of Medical Care in Diabetes 2016, [place] [employer]. Diabetes Care. 2016.39(Suppl 1).Performed By: #### 62838-5 ####[facility] LABCLIA [id number] [place] [address] [place] AMERICAPotassium [Moles/Vol]5.2 mmol/LHigh3.7-5.1COhioHealth Southeastern Medical Center Comment on above:Order Comment: Specimen Type: BLOOD SPECIMENOrdering Facility: [facility] Address:[address] [place] [address] Performed By: #### 47312-7 ####[facility] LABCLIA [id number] [place] [address] [place] Sodium [Moles/Vol]138 mmol/KJlsfxa891-913RwgyroxjkOhio State East HospitalComment on above:Order Comment: Specimen Type: BLOOD SPECIMENOrdering Facility: [facility] Address:[address] [place], [place] [address]Performed By: #### 26875-2 ####[facility] LABIA [id number] [place] [address] [place] AMERICAUrea nitrogen [Mass/Vol]21 mg/dLNormal9-24[facility] on above:Order Comment: Specimen Type: BLOOD SPECIMENOrdering Facility: [facility] Address:[address] [place], [place] [address]Performed By: #### 74297-3 ####[facility] LABCLIA [id number] [place] [address] [place] AMERICACASE MANAGEMon 98-57-2692LXRJ MANAGEMNormalOhio State East HospitalCB panel Auto (Bld)on 57-96-4055Zidnzqmzyng distribution width (RBC) [Ratio]15.5 %High11.5-15.0 [facility] on above:Order Comment: Specimen Type: BLOOD SPECIMENOrdering Facility: [facility] Address:[address] [place], [place] [address]Performed By: #### 88612-0 ####[facility] LABCLIA [id number] [address] STATES OF [facility] MED[facility] CENTERHematocrit (Bld) [Volume fraction]26.6 %Low39.0-51.0[facility] on above:Order Comment: Specimen Type: BLOOD SPECIMENOrdering Facility: [facility] Address:[address] [place], [place] [address]Performed By: #### 97232-2 ####[facility] LABCLIA [id number] [address] STATES OF [facility] CENTERHemoglobin (Bld) [Mass/Vol]8.3 g/dLLow13.0-17.0[facility] on above:Order Comment: Specimen Type: BLOOD SPECIMENOrdering Facility: [facility] Address:[address] [place], [place] [address]Performed By: #### 09215-5 ####[facility] LABCLIA [id number] [place] [address] [place] MCH (RBC) [Entitic mass]26.8 ctPdrous21.0-34.0[facility] on above:Order Comment: Specimen Type: BLOOD SPECIMENOrdering Facility: [facility] Address:[address] [place], [place] [address] Performed By: #### 53462-7 ####[facility] LABIA [id number] [place] [address] [place] MCHC (RBC) [Mass/Vol]31.2 g/xPQvfkta73.5-36.0[facility] on above:Order Comment: Specimen Type: BLOOD SPECIMENOrdering Facility: [facility] Address:[address] [place], [place] [address] Performed By: #### 37711-4 ####[facility] LABVERM[facility] [id number] [place] [address] [place] MCV (RBC) [Entitic vol]85.8 rJKdabay49.0-100.0[facility] on above:Order Comment: Specimen Type: BLOOD SPECIMENOrdering Facility: [facility] Address:[address] [place], [place] [address] Performed By: #### 75280-1 ####[facility] LABIA [id number] [place] [address] [place] Nucleated RBC (Bld) [#/Vol]10*3/uLNormal<0.01[facility] on above:Order Comment: Specimen Type: BLOOD SPECIMENOrdering Facility: [facility] Address:[address] [place], [place] [address] Performed By: #### 91147-5 ####[facility] LABIA [id number] [place] [address] [place] Platelet mean volume (Bld) [Entitic vol]9.9 fLNormal9.0-12.7CMercer County Community [facility] on above:Order Comment: Specimen Type: BLOOD SPECIMENOrdering Facility: [facility] Address:[address] [place] [address]Performed By: #### 64801-1 ####[facility] LABIA [id number] [place] [address] [place] Platelets (Bld) [#/Vol]553 10*3/aZXqgq366-030InzxiihdiWVUMedicine Barnes[facility] Hospital on above:Order Comment: Specimen Type: BLOOD SPECIMENOrdering Facility: [facility] Address:[address] [place] [address] Performed By: #### 54534-2 ####[facility] LABIA [id number] [place] [address] [place] RBC (Bld) [#/Vol]3.10 10*6/uLLow4.20-6.00[facility] on above:Order Comment: Specimen Type: BLOOD SPECIMENOrdering Facility: [facility] Address:[address] [place], [place] [address]Performed By: #### 23457-1 ####[facility] LABIA [id number] [place] [address] [place] AMERICAWBC (Bld) [#/Vol]9.69 10*3/uLNormal3.70-11.00[facility] on above:Order Comment: Specimen Type: BLOOD SPECIMENOrdering Facility: [facility] Address:[address] [place] [address]Performed By: #### 50090-4 ####[facility] LABIA [id number] [place] [address] [place] AMERICACONSULT PROGon 21-45-2738ZUPGDVH PROGNormalOhio State East HospitalGas and Carbon monoxide panel (BldV)on 76-73-0588Lcjp excess Calc (BldV) [Moles/Vol]2 mmol/LNormal0-2CMercer County Community Hospital on above:Order Comment: Specimen Type: VENOUS BLOOD SPECIMENOrdering Facility: [facility] Address: [address] [place], [place] [address]Performed By: #### 16254-1 ####[facility] LABVERMONT [facility] [id number] [place] [address] [place] AMERICACalcium.ionized (Bld) [Mass/Vol]1.20 mmol/LNormal1.08-1.30 [facility] on above:Order Comment: Specimen Type: VENOUS BLOOD SPECIMENOrdering Facility: [facility] Address: [address] [place], [place] [address]Performed By: #### 28333-9 ####[facility] [id number] [place] [address] [place] AMERICACalcium.ionized adjusted to pH 7.4 (BldA) [Moles/Vol]1.16 mmol/LNormal1.08-1.30[facility] on above: Order Comment: Specimen Type: VENOUS BLOOD SPECIMENOrdering Facility: [facility] Address: [address] [place], [place] [address]Performed By: #### 07674-3 ####[facility] [id number] [place] [address] [place] AMERICACarboxyhemoglobin (BldV) [Mass fraction]1.4 %Normal0.0-2.0[facility] on above:Order Comment: Specimen Type: VENOUS BLOOD SPECIMENOrdering Facility: [facility] Address: [address] [place], [place] [address] Result Comment: Carboxyhemoglobin Reference Range for Smokers: 2.0-8.0%Performed By: #### 92860-4 ####[facility] [id number] [place] [address] [place] AMERICACO2 (BldV) [Partial pressure]52 mm[Hg]Mffcge20-08RhgojgnoiWVUMedicine Barnesville Hospital on above:Order Comment: Specimen Type: VENOUS BLOOD SPECIMENOrdering Facility: [facility] Address: [address] [place] [address]Performed By: #### 77177-6 ####[facility] LABCLIA [id number] [place] [address] [place] AMERICACO2 [Moles/Vol]29 mmol/IKnsbbu09-40MfkiirnrvWVUMedicine [facility] Hospital on above:Order Comment: Specimen Type: VENOUS BLOOD SPECIMENOrdering Facility: [facility] Address: [address] [place] [address]Performed By: #### 60401-6 ####[facility] LABCLIA [id number] [place] [address] [place] AMERICACO2 adjusted to patient's actual temperature (BldV) [Partial pressure]52 haNrHdpugp03-80 [facility] on above:Order Comment: Specimen Type: VENOUS BLOOD SPECIMENOrdering Facility: [facility] Address: [address] [place] [address]Performed By: #### 05369-7 ####[facility] LABIA [id number] [place] [address] [place] AMERICAGlucose [Mass/Vol]104 mg/bMJjsuez07-247BysahdzlxWVUMedicine [facility] Hospital on above:Order Comment: Specimen Type: VENOUS BLOOD SPECIMENOrdering Facility: [facility] Address: [address] [place] [address]Performed By: #### 61186-1 ####[facility] LABCLIA [id number] [place] [address] [place] AMERICAHCO3 (Bld) [Moles/Vol]28 mmol/TNkiwgp72-62OzbfqqkvtWVUMedicine Barnesville Hospital on above:Order Comment: Specimen Type: VENOUS BLOOD SPECIMENOrdering Facility: [facility] Address: [address] [place] [address]Performed By: #### 82944-4 ####[facility] LABCLIA [id number] [place] [address] [place] AMERICAHematocrit (Bld) [Volume fraction]26.3 %Low39.0-51.0[facility] on above:Order Comment: Specimen Type: VENOUS BLOOD SPECIMENOrdering Facility: [facility] Address: [address] [place], [place] [address]Performed By: #### 01268-3 ####[facility] LABCLIA [id number] [place] [address] [place] AMERICAHemoglobin (Bld) [Mass/Vol]8.5 g/dLLow13.0-17.0[facility] on above:Order Comment: Specimen Type: VENOUS BLOOD SPECIMENOrdering Facility: [facility] Address: [address] [place], [place] [address]Performed By: #### 49083-3 ####[facility] LABCLIA [id number] [address] STATES OF AMERICALactate [Moles/Vol]0.5 mmol/LNormal0.5-2.2CMercer County Community Hospital on above:Order Comment: Specimen Type: VENOUS BLOOD SPECIMENOrdering Facility: [facility] Address: [address] [place], [place] [address]Performed By: #### 74739-8 ####[facility] LABIA [id number] [place] [address] [place] AMERICAMethemoglobin (Bld) [Mass fraction]0.9 %Normal0.0-1.5CMercer County Community Hospital on above:Order Comment: Specimen Type: VENOUS BLOOD SPECIMENOrdering Facility: [facility] Address: [address] [place], [place] [address]Performed By: #### 51146-0 ####[facility] LABCLIA [id number] [place] [address] [place] AMERICAOxygen (BldV) [Partial pressure]53 mm[Hg]Mcjc12-19YifhdfbnoWVUMedicine Barnesville Hospital on above:Order Comment: Specimen Type: VENOUS BLOOD SPECIMENOrdering Facility: [facility] Address: [address] [place], [place] [address]Performed By: #### 11080-7 ####[facility] LABCLIA [id number] [place] [address] [place] AMERICAOxygen adjusted to patient's actual temperature (BldV) [Partial pressure]53 jkWvOjbh89-81HelxryatcWVUMedicine Barnes[facility] Hospital on above:Order Comment: Specimen Type: VENOUS BLOOD SPECIMENOrdering Facility: [facility] Address: [address] [place], [place] [address]Performed By: #### 71265-6 ####[facility] LABCLIA [id number] [address] STATES OF AMERICAOxygen saturation in Venous blood83 %Bnvufx63-40NwvsonxqyWVUMedicine Barnes[facility] Hospital on above:Order Comment: Specimen Type: VENOUS BLOOD SPECIMENOrdering Facility: [facility] Address: [address] [place] [address]Performed By: #### 37560-0 ####[facility] LABCLIA [id number] [place] [address] [place] AMERICAOxyhemoglobin (BldV) [Mass fraction]81 %Dcsozn94-59LlvxddgzpWVUMedicine Barnesville Hospital on above:Order Comment: Specimen Type: VENOUS BLOOD SPECIMENOrdering Facility: [facility] Address: [address] [place] [phone] By: #### 89640-0 ####[facility] LABCLIA [id number] [place] [address] [place] AMERICApH (BldV)7.34 [pH] Normal7.32-7.42[facility] on above:Order Comment: Specimen Type: VENOUS BLOOD SPECIMENOrdering Facility: [facility] Address: [address] [place], [place] [address]Performed By: #### 62467-0 ####[facility] LABCLIA [id number] [place] [address] [place] AMERICApH adjusted to patient's actual temperature (BldV)7.23Myxjeh1.32-7.42[facility] Comment on above:Order Comment: Specimen Type: VENOUS BLOOD SPECIMENOrdering Facility: [facility] Address: [address] [place], [place] [address]Performed By: #### 65545-2 ####[facility] LABIA [id number] [place] [address] [place] Potassium [Moles/Vol]4.5 mmol/LNormal3.5-5.0[facility] HospitalComment on above:Order Comment: Specimen Type: VENOUS BLOOD SPECIMENOrdering Facility: [facility] Address: [address] [place] [address] Performed By: #### 97111-8 ####[facility] LABIA [id number] [place] [address] [place] Sodium [Moles/Vol]140 mmol/DStupfi525-370GhcynmxphOhio State East HospitalComment on above:Order Comment: Specimen Type: VENOUS BLOOD SPECIMENOrdering Facility: [facility] Address: [address] [place] [address] Performed By: #### 37097-6 ####[facility] LABVERM[facility] [id number] [place] [address] [place] OPERATIVE NOon 68-08-8781SNGZOEMIL NONormalOhio State East HospitalTHERAPY NT on 23-49-8404MPFJAJS NTNormalCMercy Health [facility] HEALTHon 80-26-7002BVNUYR HEALTHNormalCKindred Healthcare W Auto Differential panel (Bld)on 60-81-0206Vsrcmkree (Bld) [#/Vol]0.14 10*3/uLHigh<0.11CMercer County Community Hospital on above:Order Comment: Specimen Type: BLOOD SPECIMENOrdering Facility: [facility] Address:[address]Performed By: #### 07613-3 ####[facility] LABCLIA [id number] [place] [address] [place] [facility] CENTERBasophils/100 WBC (Bld)1.8 %NormalOhio State East Hospital Comment on above:Order Comment: Specimen Type: BLOOD SPECIMENOrdering Facility: [facility] Address:[address] [place], [place] [address] Performed By: #### 37942-2 ####[facility] LABCLIA [id number] [place] [address] [place] Differential cell count method Nom (Bld)AutoNormalCOhioHealth Southeastern Medical Center Comment on above:Order Comment: Specimen Type: BLOOD SPECIMENOrdering Facility: [facility] Address:[address] [place], [place] [address] Performed By: #### 56772-6 ####[facility] LABIA [id number] [place] [address] [place] Eosinophils (Bld) [#/Vol]0.28 10*3/uLNormal<0.46[facility] Comment on above:Order Comment: Specimen Type: BLOOD SPECIMENOrdering Facility: [facility] Address:[address] [place], [place] [address] Performed By: #### 13733-2 ####[facility] LABCLIA [id number] [place] [address] [place] Eosinophils/100 WBC (Bld)3.5 %NormalOhio State East HospitalComment on above: Order Comment: Specimen Type: BLOOD SPECIMENOrdering Facility: [facility] Address:[address] [place] [address]Performed By: #### 19648-2 ####[facility] LABIA [id number] [place] [address] [place] AMERICAErythrocyte distribution width (RBC) [Ratio]15.4 %High11.5-15.0[facility] Comment on above:Order Comment: Specimen Type: BLOOD SPECIMENOrdering Facility: [facility] Address:[address] [place] [address] Performed By: #### 37236-6 ####[facility] LABIA [id number] [place] [address] [place] Hematocrit (Bld) [Volume fraction]24.0 %Low39.0-51.0[facility] Comment on above:Order Comment: Specimen Type: BLOOD SPECIMENOrdering Facility: [facility] Address:[address] [place] [address] Performed By: #### 83094-3 ####[facility] LABIA [id number] [place] [address] [place] Hemoglobin (Bld) [Mass/Vol]7.4 g/dLLow13.0-17.0[facility] HospitalComment on above:Order Comment: Specimen Type: BLOOD SPECIMENOrdering Facility: [facility] Address:[address] [place], [place] [address] Performed By: #### 36620-9 ####[facility] LABIA [id number] [place] [address] [place] Immature granulocytes (Bld) [#/Vol]0.11 10*3/uLHigh<0.10[facility] Campusment on above:Order Comment: Specimen Type: BLOOD SPECIMENOrdering Facility: [facility] Address:[address] [place], [place] [address]Performed By: #### 57817-4 ####[facility] LABIA [id number] [place] [address] [place] Immature granulocytes/100 WBC (Bld)1.4 %NormalOhio State East HospitalComascension st. j[facility] hospital on above:Order Comment: Specimen Type: BLOOD SPECIMENOrdering Facility: [facility] Address:[address] [place], [place] [address] Performed By: #### 82239-8 ####[facility] LABCLIA [id number] [place] [address] [place] Lymphocytes (Bld) [#/Vol]1.51 10*3/uLNormal1.00-4.00[facility] Comment on above:Order Comment: Specimen Type: BLOOD SPECIMENOrdering Facility: [facility] Address:[address] [place] [address] Performed By: #### 42431-1 ####[facility] LABCLIA [id number] [address] STATES OF [facility] Lymphocytes/100 WBC (Bld)18.9 %NormalOhio State East HospitalComment on above: Order Comment: Specimen Type: BLOOD SPECIMENOrdering Facility: [facility] Address:[address] [place], [place] [address]Performed By: #### 47598-7 ####[facility] LABIA [id number] [address] (RBC) [Entitic mass]26.7 toSysegy03.0-34.0[facility] Campusment on above:Order Comment: Specimen Type: BLOOD SPECIMENOrdering Facility: [facility] Address:[address] [place] [phone] By: #### 49159-4 ####[facility] LABIA [id number] [address] (RBC) [Mass/Vol] 30.8 g/sLEyrcaq28.5-36.0[facility] on above:Order Comment: Specimen Type: BLOOD SPECIMENOrdering Facility: [facility] Address:[address] [place] [phone] By: #### 56108-0 ####[facility] LABIA [id number] [address], [place] [address] [place] AMERICAMCV (RBC) [Entitic vol]86.6 nQWtpani51.0-100.0[facility] on above:Order Comment: Specimen Type: BLOOD SPECIMENOrdering Facility: [facility] Address:[address] [place], [place] [address]Performed By: #### 15663-0 ####[facility] LABCLIA [id number] [place] [address] [place] AMERICAMonocytes (Bld) [#/Vol]0.73 10*3/uLNormal<0.87[facility] on above:Order Comment: Specimen Type: BLOOD SPECIMENOrdering Facility: [facility] Address:[address] [place], [place] [address]Performed By: #### 79892-0 ####[facility] LABCLIA [id number] [place] [address] [place] AMERICAMonocytes/100 WBC (Bld)9.1 %[facility] on above:Order Comment: Specimen Type: BLOOD SPECIMENOrdering Facility: [facility] Address:[address] [place] [address]Performed By: #### 68599-3 ####[facility] LABCLIA [id number] [place] [address] [place] AMERICANeutrophils (Bld) [#/Vol]5.21 10*3/uLNormal1.45-7.50[facility] on above:Order Comment: Specimen Type: BLOOD SPECIMENOrdering Facility: [facility] Address:[address] [place] [address]Performed By: #### 21423-5 ####[facility] LABCLIA [id number] [place] [address] [place] AMERICANeutrophils/100 WBC (Bld)65.3 % NormalWVUMedicine Barnesville Hospital on above:Order Comment: Specimen Type: BLOOD SPECIMENOrdering Facility: [facility] Address:[address] [place] [address]Performed By: #### 63535-6 ####[facility] LABCLIA [id number] [place] [address] [place] AMERICANucleated RBC (Bld) [#/Vol]10*3/uLNormal<0.01[facility] on above:Order Comment: Specimen Type: BLOOD SPECIMENOrdering Facility: [facility] Address:[address] [place], [place] [address]Performed By: #### 28438-4 ####[facility] LABIA [id number] [place] [address] [place] AMERICANucleated RBC/100 WBC (Bld) [Ratio]0.0 /100 WBCNormalCMercer County Community Hospital on above:Order Comment: Specimen Type: BLOOD SPECIMENOrdering Facility: [facility] Address:[address] [place] [address]Performed By: #### 76087-1 ####[facility] LABIA [id number] [place] [address] [place] AMERICAPlatelet mean volume (Bld) [Entitic vol]10.0 fLNormal9.0-12.7 [facility] on above:Order Comment: Specimen Type: BLOOD SPECIMENOrdering Facility: [facility] Address:[address] [place] [phone] By: #### 55444-2 ####[facility] LABIA [id number] [place] [address] [place] AMERICAPlatelets (Bld) [#/Vol]543 10*3/gRVvfw909-946IltgppabzWVUMedicine Barnesville Hospital on above:Order Comment: Specimen Type: BLOOD SPECIMENOrdering Facility: [facility] Address:[address] [place] [address]Performed By: #### 21877-2 ####[facility] LABIA [id number] [place] [address] [place] RBC (Bld) [#/Vol]2.77 10*6/uLLow4.20-6.00[facility] on above:Order Comment: Specimen Type: BLOOD SPECIMENOrdering Facility: [facility] Address:[address] [place], [place] [address]Performed By: #### 56698-9 ####[facility]ITAL[facility] [id number] [place] [address] [place] AMERICAWBC (Bld) [#/Vol]7.98 10*3/uLNormal3.70-11.00[facility] on above:Order Comment: Specimen Type: BLOOD SPECIMENOrdering Facility: [facility] Address:[address] [place], [place] [address]Performed By: #### 22974-8 ####[facility] [id number] [place] [address] [place] AMERICACONSULT PROGon 53-69-1618FIYKLAM PROGNormalOhio State East HospitalCONLT PROGNormalOhio State East Hospital NUTRITIONon 11-00-9953LHZOJQFJYGcghbkSrfzjpohm Clinic ClevelandCB W Auto Differential panel (Bld)on 21-22-2435Cypwebyeo (Bld) [#/Vol]0.13 10*3/uLHigh <0.11CMercer County Community Hospital on above:Order Comment: Specimen Type: BLOOD SPECIMENOrdering Facility: [facility] Address:[address] [place], [place] [id number] By: #### 91238-3 ####[facility] [id number] [place] [address] [place] AMERICABasophils/100 WBC (Bld)1.5 %NormalWVUMedicine Barnesville Hospital on above:Order Comment: Specimen Type: BLOOD SPECIMENOrdering Facility: [facility] Address:[address] [place], [place] [id number] By: #### 54710-2 ####[facility] [id number] [place] [address] [place] Differential cell count method Nom (Bld)AutoNormalClevelNovant Health New [facility] Comment on above:Order Comment: Specimen Type: BLOOD SPECIMENOrdering Facility: [facility] Address:[address] [place] [address] Performed By: #### 59128-5 ####[facility] [id number] [place] [address] [place] Eosinophils (Bld) [#/Vol]0.21 10*3/uLNormal<0.46[facility] Comment on above:Order Comment: Specimen Type: BLOOD SPECIMENOrdering Facility: [facility] Address:[address] [place] [address] Performed By: #### 21440-0 ####[facility] [id number] [place] [address] [place] Eosinophils/100 WBC (Bld)2.4 %NormalOhio State East HospitalComment on above: Order Comment: Specimen Type: BLOOD SPECIMENOrdering Facility: [facility] Address:[address] [place], [place] [id number] By: #### 24494-2 ####[facility] LABIA [id number] [place] [address] [place] AMERICAErythrocyte distribution width (RBC) [Ratio]15.4 %High11.5-15.0[facility] Comment on above:Order Comment: Specimen Type: BLOOD SPECIMENOrdering Facility: [facility] Address:[address] [place], [place] [address] Performed By: #### 45125-3 ####[facility] LABIA [id number] [place] [address] [place] Hematocrit (Bld) [Volume fraction]24.8 %Low39.0-51.0[facility] Comment on above:Order Comment: Specimen Type: BLOOD SPECIMENOrdering Facility: [facility] Address:[address] [place] [address] Performed By: #### 89709-6 ####[facility] LABIA [id number] [place] [address] [place] Hemoglobin (Bld) [Mass/Vol]7.9 g/dLLow13.0-17.0[facility] HospitalComment on above:Order Comment: Specimen Type: BLOOD SPECIMENOrdering Facility: [facility] Address:[address] [place], [place] [address] Performed By: #### 48710-6 ####[facility] LABIA [id number] [place] [address] [place] Immature granulocytes (Bld) [#/Vol]0.10 10*3/uLHigh<0.10[facility] HospitalComment on above:Order Comment: Specimen Type: BLOOD SPECIMENOrdering Facility: [facility] Address:[address] [place], [place] [address]Performed By: #### 15845-1 ####[facility] LABIA [id number] [place] [address] [place] Immature granulocytes/100 WBC (Bld)1.1 %NormalOhio State East HospitalComascension st. john hospital on above:Order Comment: Specimen Type: BLOOD SPECIMENOrdering Facility: [facility] Address:[address] [place], [place] [address] Performed By: #### 15871-7 ####[facility] [id number] [place] [address] [place] Lymphocytes (Bld) [#/Vol]1.39 10*3/uLNormal1.00-4.00[facility] Comment on above:Order Comment: Specimen Type: BLOOD SPECIMENOrdering Facility: [facility] Address:[address] [place] [address] Performed By: #### 96037-4 ####[facility] LABCLIA [id number] [address] STATES [facility] Lymphocytes/100 WBC (Bld)15.9 %NormalWVUMedicine Barnesville Hospital on above: Order Comment: Specimen Type: BLOOD SPECIMENOrdering Facility: [facility] Address:[address] [place] [address]Performed By: #### 78452-8 ####[facility] LABIA [id number] [address] (RBC) [Entitic mass]26.6 fxDgzafh72.0-34.0[facility] on above:Order Comment: Specimen Type: BLOOD SPECIMENOrdering Facility: [facility] Address:[address] [place], [place] [address]Performed By: #### 83229-3 ####[facility] LABIA [id number] [address]ETMCHC (RBC) [Mass/Vol] 31.9 g/uTVthokb75.5-36.0[facility] on above:Order Comment: Specimen Type: BLOOD SPECIMENOrdering Facility: [facility] Address:[address] [place] [address]Performed By: #### 38581-0 ####[facility] LABIA [id number] [address] (RBC) [Entitic vol]83.5 gIYtbpij49.0-100.0[facility] on above:Order Comment: Specimen Type: BLOOD SPECIMENOrdering Facility: [facility] Address:[address] [place], [place] [address]Performed By: #### 16307-0 ####[facility] LABCLIA [id number] [place] [address] [place] AMERICAMonocytes (Bld) [#/Vol]0.80 10*3/uLNormal<0.87[facility] on above:Order Comment: Specimen Type: BLOOD SPECIMENOrdering Facility: [facility] Address:[address] [place], [place] [address]Performed By: #### 32802-3 ####[facility] LABCLIA [id number] [place] [address] [place] AMERICAMonocytes/100 WBC (Bld)9.2 %NormalWVUMedicine Barnesville Hospital on above:Order Comment: Specimen Type: BLOOD SPECIMENOrdering Facility: [facility] Address:[address] [place], [place] [address]Performed By: #### 78057-2 ####[facility] LABCLIA [id number] [place] [address] [place] AMERICANeutrophils (Bld) [#/Vol]6.10 10*3/uLNormal1.45-7.50[facility] on above:Order Comment: Specimen Type: BLOOD SPECIMENOrdering Facility: [facility] Address:[address] [place], [place] [address]Performed By: #### 98544-5 ####[facility] LABCLIA [id number] [place] [address] [place] AMERICANeutrophils/100 WBC (Bld)69.9 % NormalWVUMedicine Barnesville Hospital on above:Order Comment: Specimen Type: BLOOD SPECIMENOrdering Facility: [facility] Address:[address] [place], [place] [address]Performed By: #### 86533-5 ####[facility] LABCLIA [id number] [place] [address] [place] AMERICANucleated RBC (Bld) [#/Vol]10*3/uLNormal<0.01[facility] on above:Order Comment: Specimen Type: BLOOD SPECIMENOrdering Facility: [facility] Address:[address] [place], [place] [address]Performed By: #### 76120-0 ####[facility] LABCLIA [id number] [place] [address] [place] AMERICANucleated RBC/100 WBC (Bld) [Ratio]0.0 /100 WBCNormalCMercer County Community Hospital on above:Order Comment: Specimen Type: BLOOD SPECIMENOrdering Facility: [facility] Address:[address] [place], [place] [address]Performed By: #### 43068-8 ####[facility] LABIA [id number] [place] [address] [place] AMERICAPlatelet mean volume (Bld) [Entitic vol]9.3 fLNormal9.0-12.7 [facility] on above:Order Comment: Specimen Type: BLOOD SPECIMENOrdering Facility: [facility] Address:[address] [place] [address]Performed By: #### 23748-2 ####[facility] LABCLIA [id number] [place] [address] [place] AMERICAPlatelets (Bld) [#/Vol]537 10*3/zOPbxp520-608KkrrvwbfeWVUMedicine Barnesville Hospital on above:Order Comment: Specimen Type: BLOOD SPECIMENOrdering Facility: [facility] Address:[address] [place] [id number] By: #### 74462-4 ####[facility] LABIA [id number] [place] [address] [place] RBC (Bld) [#/Vol]2.97 10*6/uLLow4.20-6.00[facility] on above:Order Comment: Specimen Type: BLOOD SPECIMENOrdering Facility: [facility] Address:[address] [place] [address]Performed By: #### 35918-9 ####[facility] LABCLIA [id number] [place] [address] [place] AMERICAWBC (Bld) [#/Vol]8.73 10*3/uLNormal3.70-11.00[facility] on above:Order Comment: Specimen Type: BLOOD SPECIMENOrdering Facility: [facility] Address:[address] [place], [place] [address]Performed By: #### 63675-8 ####[facility] LABIA [id number] [place] [address] [place] AMERICACONSULT PROGon 40-53-3251IBZKBCA PROGNormalOhio State East HospitalCASE MANAGEMon 23-85-4230ZVIV MANAGEMNormal [facility] HospitalCB W Auto Differential panel (Bld)on 02-08-2023 Basophils (Bld) [#/Vol]0.15 10*3/uLHigh<0.11CMercer County Community Hospital on above:Order Comment: Specimen Type: BLOOD SPECIMENOrdering Facility: [facility] Address:[address] [place], [place] [address]Performed By: #### 16582-0 ####[facility] LABIA [id number] [place] [address] [place] AMERICABasophils/100 WBC (Bld)1.4 %NormalWVUMedicine Barnesville Hospital on above:Order Comment: Specimen Type: BLOOD SPECIMENOrdering Facility: [facility] Address:[address] [place], [place] [address]Performed By: #### 39578-2 ####[facility] LABIA [id number] [place] [address] [place] AMERICADifferential cell count method Nom (Bld)AutoNormalCMercer County Community Hospital on above:Order Comment: Specimen Type: BLOOD SPECIMENOrdering Facility: [facility] Address:[address] [place] [address]Performed By: #### 82911-7 ####[facility] LABCLIA [id number] [place] [address] [place] AMERICAEosinophils (Bld) [#/Vol]0.20 10*3/uLNormal<0.46[facility] on above:Order Comment: Specimen Type: BLOOD SPECIMENOrdering Facility: [facility] Address:[address] [place], [place] [address]Performed By: #### 50297-8 ####[facility] LABIA [id number] [place] [address] [place] AMERICAEosinophils/100 WBC (Bld)1.8 % NormalWVUMedicine Barnesville Hospital on above:Order Comment: Specimen Type: BLOOD SPECIMENOrdering Facility: [facility] Address:[address] [place], [place] [address]Performed By: #### 91426-1 ####[facility] LABIA [id number] [place] [address] [place] AMERICAErythrocyte distribution width (RBC) [Ratio]15.7 %High 11.5-15.0[facility] on above:Order Comment: Specimen Type: BLOOD SPECIMENOrdering Facility: [facility] Address:[address] [place], [place] [address]Performed By: #### 42009-1 ####[facility] LABIA [id number] [place] [address] [place] AMERICAHematocrit (Bld) [Volume fraction]27.0 %Low 39.0-51.0[facility] on above:Order Comment: Specimen Type: BLOOD SPECIMENOrdering Facility: [facility] Address:[address] [place], [place] [address]Performed By: #### 93035-8 ####[facility] LABIA [id number] [place] [address] [place] AMERICAHemoglobin (Bld) [Mass/Vol]8.5 g/dLLow13.0-17.0 [facility] on above:Order Comment: Specimen Type: BLOOD SPECIMENOrdering Facility: [facility] Address:[address] [place], [place] [address]Performed By: #### 42438-0 ####[facility] LABCLIA [id number] [place] [address] [place] AMERICAImmature granulocytes (Bld) [#/Vol]0.16 10*3/uLHigh<0.10 [facility] on above:Order Comment: Specimen Type: BLOOD SPECIMENOrdering Facility: [facility] Address:[address] [place], [place] [address]Performed By: #### 63087-2 ####[facility] LABCLIA [id number] [place] [address] [place] AMERICAImmature granulocytes/100 WBC (Bld)1.4 %[facility] on above:Order Comment: Specimen Type: BLOOD SPECIMENOrdering Facility: [facility] Address:[address] [place], [place] [address]Performed By: #### 36040-5 ####[facility] LABCLIA [id number] [place] [address] [place] Lymphocytes (Bld) [#/Vol]1.49 10*3/uLNormal1.00-4.00[facility] Comment on above:Order Comment: Specimen Type: BLOOD SPECIMENOrdering Facility: [facility] Address:[address] [place] [address] Performed By: #### 75471-6 ####[facility] LABCLIA [id number] [place] [address] [place] Lymphocytes/100 WBC (Bld)13.5 %NormalWVUMedicine Barnesville Hospital on above: Order Comment: Specimen Type: BLOOD SPECIMENOrdering Facility: [facility] Address:[address] [place], [place] [address]Performed By: #### 91838-9 ####[facility] LABIA [id number] [address] (RBC) [Entitic mass]27.1 ihPgooag87.0-34.0[facility] on above:Order Comment: Specimen Type: BLOOD SPECIMENOrdering Facility: [facility] Address:[address] [place], [place] [address]Performed By: #### 93826-0 ####[facility] LABIA [id number] [address] (RBC) [Mass/Vol] 31.5 g/xWEfbszf04.5-36.0[facility] on above:Order Comment: Specimen Type: BLOOD SPECIMENOrdering Facility: [facility] Address:[address] [place], [place] [address]Performed By: #### 98532-8 ####[facility] LABIA [id number] [address] (RBC) [Entitic vol]86.0 gNFsomiu21.0-100.0[facility] on above:Order Comment: Specimen Type: BLOOD SPECIMENOrdering Facility: [facility] Address:[address] [place], [place] [address]Performed By: #### 98745-3 ####[facility] LABIA [id number] [address]Monocytes (Bld) [#/Vol]0.98 10*3/uLHigh<0.87[facility] on above:Order Comment: Specimen Type: BLOOD SPECIMENOrdering Facility: [facility] Address:[address] [place], [place] [address]Performed By: #### 22137-7 ####[facility] LABCLIA [id number] [place] [address] [place] AMERICAMonocytes/100 WBC (Bld)8.9 %NormalWVUMedicine [facility] Hospital on above:Order Comment: Specimen Type: BLOOD SPECIMENOrdering Facility: [facility] Address:[address] [place], [place] [address]Performed By: #### 70087-1 ####[facility] LABCLIA [id number] [place] [address] [place] AMERICANeutrophils (Bld) [#/Vol]8.08 10*3/uLHigh1.45-7.50[facility] on above:Order Comment: Specimen Type: BLOOD SPECIMENOrdering Facility: [facility] Address:[address] [place], [place] [address]Performed By: #### 57744-9 ####[facility] LABIA [id number] [place] [address] [place]ICANeutrophils/100 WBC (Bld)73.0 % NormalWVUMedicine Barnesville Hospital on above:Order Comment: Specimen Type: BLOOD SPECIMENOrdering Facility: [facility] Address:[address] [place] [address]Performed By: #### 93422-7 ####[facility] LABIA [id number] [place] [address] [place]ICANucleated RBC (Bld) [#/Vol]10*3/uLNormal<0.01[facility] on above:Order Comment: Specimen Type: BLOOD SPECIMENOrdering Facility: [facility] Address:[address] [place] [address]Performed By: #### 58648-5 ####[facility] LABIA [id number] [place] [address] [place] AMERICANucleated RBC/100 WBC (Bld) [Ratio]0.0 /100 WBCNormalCMercer County Community Hospital on above:Order Comment: Specimen Type: BLOOD SPECIMENOrdering Facility: [facility] Address:[address] [place], [place] [address]Performed By: #### 18705-2 ####[facility] LABCLIA [id number] [place] [address] [place] AMERICAPlatelet mean volume (Bld) [Entitic vol]9.7 fLNormal9.0-12.7 [facility] on above:Order Comment: Specimen Type: BLOOD SPECIMENOrdering Facility: [facility] Address:[address] [place], [place] [address]Performed By: #### 79018-2 ####[facility] LABCLIA [id number] [place] [address] [place] AMERICAPlatelets (Bld) [#/Vol]590 10*3/vHXoeo562-064RavzeqztoWVUMedicine Barnesville Hospital on above:Order Comment: Specimen Type: BLOOD SPECIMENOrdering Facility: [facility] Address:[address] [place], [place] [address]Performed By: #### 74848-0 ####[facility] LABCLIA [id number] [place] [address] [place] RBC (Bld) [#/Vol]3.14 10*6/uLLow4.20-6.00[facility] on above:Order Comment: Specimen Type: BLOOD SPECIMENOrdering Facility: [facility] Address:[address] [place], [place] [address]Performed By: #### 86696-9 ####[facility] LABCLIA [id number] [place] [address] [place] AMERICAWBC (Bld) [#/Vol]11.06 10*3/uLHigh3.70-11.00[facility] on above:Order Comment: Specimen Type: BLOOD SPECIMENOrdering Facility: [facility] Address:[address] [place], [place] [address]Performed By: #### 52986-2 ####[facility] LABCLIA [id number] [place] [address] [place] AMERICACONSULT PROGon 57-36-3438XMNJIMD PROGNormalOhio State East HospitalComprehensive metabolic 2000 panelon 06-45-4355Wylflbw [Mass/Vol]3.4 g/dLLow3.9-4.9CMercer County Community Hospital on above:Order Comment: Specimen Type: BLOOD SPECIMENOrdering Facility: [facility] Address:[address] [place], [place] [address] Performed By: #### 58961-6 ####[facility] LABCLIA [id number] [place] [address] [place] ALP [Catalytic activity/Vol]172 U/GYvgy59-403LdippxupeWVUMedicine Barnesville Hospital on above:Order Comment: Specimen Type: BLOOD SPECIMENOrdering Facility: [facility] Address:[address] [place], [place] [address] Performed By: #### 35720-2 ####[facility] LABCLIA [id number] [place] [address] [place] ALT [Catalytic activity/Vol]118 U/FNnbd62-93WffnesoqpWVUMedicine [facility] Hospital on above:Order Comment: Specimen Type: BLOOD SPECIMENOrdering Facility: [facility] Address:[address] [place] [address]Performed By: #### 84861-9 ####[facility] LABCLIA [id number] [place] [address] [place] AMERICAAnion gap [Moles/Vol]9 mmol/LNormal9-18[facility] on above:Order Comment: Specimen Type: BLOOD SPECIMENOrdering Facility: [facility] Address:[address] [place] [address]Performed By: #### 79442-2 ####[facility] LABCLIA [id number] [place] [address] [place] AMERICAAST [Catalytic activity/Vol]64 U/SKyvw46-23QstedfbszWVUMedicine Barnes[facility] Hospital on above:Order Comment: Specimen Type: BLOOD SPECIMENOrdering Facility: [facility] Address:[address] [place] [address]Performed By: #### 50818-3 ####[facility] LABCLIA [id number] [place] [address] [place] AMERICABilirubin [Mass/Vol]0.3 mg/dLNormal0.2-1.3 [facility] on above:Order Comment: Specimen Type: BLOOD SPECIMENOrdering Facility: [facility] Address:[address] [place] [address]Performed By: #### 45189-9 ####[facility] LABIA [id number] [address] STATES OF AMERICACalcium [Mass/Vol]8.5 mg/dLNormal8.5-10.2CMercer County Community Hospital on above:Order Comment: Specimen Type: BLOOD SPECIMENOrdering Facility: [facility] Address:[address] [place] [address]Performed By: #### 21201-9 ####[facility] LABIA [id number] [place] [address] [place] Chloride [Moles/Vol]100 mmol/RZmxuoh55-970OmvoonqkfWVUMedicine Barnesville Hospital on above:Order Comment: Specimen Type: BLOOD SPECIMENOrdering Facility: [facility] Address:[address] [place] [address]Performed By: #### 01661-4 ####[facility] LABIA [id number] [place] [address] [place] AMERICACO2 [Moles/Vol]24 mmol/YYiikmx50-52GrruaxaagWVUMedicine Barnesville Hospital on above:Order Comment: Specimen Type: BLOOD SPECIMENOrdering Facility: [facility] Address:[address] [place], [place] [address]Performed By: #### 17962-7 ####[facility] LABCLIA [id number] [place] [address] [place] AMERICACreatinine [Mass/Vol]0.97 mg/dL Normal0.73-1.22[facility] on above:Order Comment: Specimen Type: BLOOD SPECIMENOrdering Facility: [facility] Address:[address] [place], [place] [address]Performed By: #### 73712-8 ####[facility] LABIA [id number] [place] [address] [place] AMERICAESTIMATED GLOMERULAR FILTRATION RATE90 mL/min/1.73m???Normal>=60[facility] on above:Order Comment: Specimen Type: BLOOD SPECIMENOrdering Facility: [facility] Address:[address] [place], [place] [address]Result Comment: Estimated Glomerular Filtration Rate (eGFR) is calculated using the 2020 CKD-EPI creatinine equation. This equation utilizes serum creatinine, sex, and age as parameters. The creatinine assay has traceable calibration to isotope dilution- mass spectrometry. Refer to KDIGO guidelines for clinical interpretation. In patients with unstable renal function, e.g. those with acute kidney injury, the eGFR may not accurately reflect actual GFR.Performed By: #### 64748-9 ####[facility] LABIA [id number] [place] [address] [place] AMERICAGlucose [Mass/Vol]123 mg/dLHigh 74-99[facility] on above:Order Comment: Specimen Type: BLOOD SPECIMENOrdering Facility: [facility] Address:[address] [place], [place] [address]Result Comment: The [place] [employer] (ADA) provides guidance for cutoff values for fasting glucose and random glucose. The ADA defines fasting as no caloric intake for at least 8 hours. F asting plasma glucose results between 100 to 125 mg/dL indicate increased risk for diabetes (prediabetes).Fasting plasma glucose results greater than or equal to 126 mg/dL meet the criteria for diagnosis of diabetes. In the absence of unequivocal hyperglycemia, results should be confirmed by repeattesting. In a patient with classic symptoms of hyperglycemia or hyperglycemic crisis, random plasmaglucose results greater than or equal to 200 mg/dL meet the criteria for diagnosis of diabetes.Reference: Standards of Medical Care in Diabetes 2016, [place] [employer]. Diabetes Care. 2016.39(Suppl 1).Performed By: #### 78948-0 ####[facility] LABIA [id number] [place] [address] [place] AMERICAPotassium [Moles/Vol] 4.7 mmol/LNormal3.7-5.1CMercer County Community Hospital on above:Order Comment: Specimen Type: BLOOD SPECIMENOrdering Facility: [facility] Address:[address] [place], [place] [address]Performed By: #### 45405-3 ####[facility] LABIA [id number] [place] [address] [place] AMERICAProtein [Mass/Vol]7.5 g/dLNormal 6.3-8.0[facility] on above:Order Comment: Specimen Type: BLOOD SPECIMENOrdering Facility: [facility] Address:[address] [place], [place] [address]Performed By: #### 29772-4 ####[facility] LABIA [id number] [place] [address] [place] AMERICASodium [Moles/Vol]133 mmol/AMxh324-930QsbfjpfusWVUMedicine [facility] Hospital on above:Order Comment: Specimen Type: BLOOD SPECIMENOrdering Facility: [facility] Address:[address] [place], [place] [address]Performed By: #### 98350-2 ####[facility] LABIA [id number] [place] [id number] [place] Urea nitrogen [Mass/Vol]24 mg/dLNormal9-24[facility] on above:Order Comment: Specimen Type: BLOOD SPECIMENOrdering Facility: [facility] Address:[address] [place], [place] [address]Performed By: #### 59607-8 ####[facility] LABCLIA [id number] [address] STATES OF AMERICATYPE + SCREENon 65-89-7485LVIUWzaijwKpufscldyMercer County Community Hospital on above:Order Comment: Specimen Type: BLOOD SPECIMENOrdering Facility: [facility] Address:[address] [place], [place] [address]Performed By: #### TSCR ####CC MAIN BLOOD BANKCLIA [id number] [address] OF [facility]UM MEDICAL CENTERHISTORICAL AB SCR STATUSNegativeNoBellevue Hospital on above:Order Comment: Specimen Type: BLOOD SPECIMENOrdering Facility: [facility] Address:[address] [place], [place] [address]Performed By: #### TSCR ####CC MAIN BLOOD BANKCLIA [id number] [address] STATES OF [facility] MEDICAL CENTERRh Nom (Bld) PositiveNormalCMercer County Community Hospital on above:Order Comment: Specimen Type: BLOOD SPECIMENOrdering Facility: [facility] Address:[address] [place], [place] [id number] By: #### TSCR ####CC MAIN BLOOD BANKCLIA [id number] [place] [address] [place] STATES OF AMERICATYPE AND SCREEN [id number]/31/2023 23:59NormalCMercer County Community Hospital on above:Order Comment: Specimen Type: BLOOD SPECIMENOrdering Facility: [facility] Address:[address] [place], [place] [id number] By: #### TSCR ####CC MAIN BLOOD BANKCLIA [id number] [place] [address] [place] OF AMERICACASE MANAGEMon [id number] MANAGEMNormalOhio State East HospitalCB W Auto Differential panel (Bld)on [id number] (Bld) [#/Vol]0.18 10*3/uLHigh<0.11COhioHealth Southeastern Medical CenterComment on above:Order Comment: Specimen Type: BLOOD SPECIMENOrdering Facility: [facility] Address:[address] [place], [place] [address]Performed By: #### [id number] ####[facility] LABIA [id number] [address] STATES OF [facility] CENTERBasophils/100 WBC (Bld)1.7 %NormalOhio State East Hospital Comment on above:Order Comment: Specimen Type: BLOOD SPECIMENOrdering Facility: [facility] Address:[address] [place] [address] Performed By: #### [id number] ####[facility]ADSWORTH-RITTMAN [facility] [id number] [place] [address] [place] Differential cell count method Nom (Bld)AutoNormalCOhioHealth Southeastern Medical Center Comment on above:Order Comment: Specimen Type: BLOOD SPECIMENOrdering Facility: [facility] Address:[address] [place], [place] [address] Performed By: #### 34647-9 ####[facility] LABIA [id number] [place] [address] [place] Eosinophils (Bld) [#/Vol]0.17 10*3/uLNormal<0.46[facility] Comment on above:Order Comment: Specimen Type: BLOOD SPECIMENOrdering Facility: [facility] Address:[address] [place], [place] [address] Performed By: #### 53736-8 ####[facility] LABIA [id number] [address] OF [place] Eosinophils/100 WBC (Bld)1.6 %NormalOhio State East HospitalComment on above: Order Comment: Specimen Type: BLOOD SPECIMENOrdering Facility: [facility] Address:[address] [place], [place] [address]Performed By: #### 83422-6 ####[facility] LABCLIA [id number] [address] STATES OF AMERICAErythrocyte distribution width (RBC) [Ratio]15.8 %High11.5-15.0[facility] Comment on above:Order Comment: Specimen Type: BLOOD SPECIMENOrdering Facility: [facility] Address:[address] [place] [address] Performed By: #### 53938-8 ####[facility] LABCLIA [id number] [place] [address] [place] Hematocrit (Bld) [Volume fraction]25.8 %Low39.0-51.0[facility] Comment on above:Order Comment: Specimen Type: BLOOD SPECIMENOrdering Facility: [facility] Address:[address] [place], [place] [address] Performed By: #### 92416-6 ####[facility] LABCLIA [id number] [address] [place] Hemoglobin (Bld) [Mass/Vol]8.4 g/dLLow13.0-17.0[facility] on above:Order Comment: Specimen Type: BLOOD SPECIMENOrdering Facility: [facility] Address:[address] [place], [place] [address] Performed By: #### 88613-3 ####[facility] LABCLIA [id number] [place] [address] [place] Immature granulocytes (Bld) [#/Vol]0.13 10*3/uLHigh<0.10[facility] HospitalComasc[facility] on above:Order Comment: Specimen Type: BLOOD SPECIMENOrdering Facility: [facility] Address:[address] [place] [address]Performed By: #### 89953-6 ####[facility] LABIA [id number] [address] STATES [facility] Immature granulocytes/100 WBC (Bld)1.2 %NormalWVUMedicine Barnesville Hospital on above:Order Comment: Specimen Type: BLOOD SPECIMENOrdering Facility: [facility] Address:[address] [place] [address] Performed By: #### 27914-2 ####[facility] LABIA [id number] [place] [address] [place] Lymphocytes (Bld) [#/Vol]1.62 10*3/uLNormal1.00-4.00[facility] Comment on above:Order Comment: Specimen Type: BLOOD SPECIMENOrdering Facility: [facility] Address:[address] [place] [address] Performed By: #### 96849-4 ####[facility] LABIA [id number] [place] [address] [place] Lymphocytes/100 WBC (Bld)14.9 %NormalOhio State East HospitalComascension st. john [facility] on above: Order Comment: Specimen Type: BLOOD SPECIMENOrdering Facility: [facility] Address:[address] [place] [address]Performed By: #### 67696-7 ####[facility] LABIA [id number] [place] [address] [place] AMERICAMCH (RBC) [Entitic mass]27.3 seJqsbhd22.0-34.0[facility] HospitalComment on above:Order Comment: Specimen Type: BLOOD SPECIMENOrdering Facility: [facility] Address:[address] [place] [address]Performed By: #### 49552-4 ####[facility] LABIA [id number] [address]HC (RBC) [Mass/Vol] 32.6 g/yLQhwjlc06.5-36.0[facility] on above:Order Comment: Specimen Type: BLOOD SPECIMENOrdering Facility: [facility] Address:[address] [place], [place] [address]Performed By: #### 87632-0 ####[facility] LABIA [id number] [address] (RBC) [Entitic vol]83.8 nUTvjlhc41.0-100.0[facility] on above:Order Comment: Specimen Type: BLOOD SPECIMENOrdering Facility: [facility] Address:[address] [place], [place] [address]Performed By: #### 42870-9 ####[facility] LABIA [id number] [place] [address] [place] AMERICAMonocytes (Bld) [#/Vol]0.97 10*3/uLHigh<0.87[facility] on above:Order Comment: Specimen Type: BLOOD SPECIMENOrdering Facility: [facility] Address:[address] [place], [place] [address]Performed By: #### 45475-6 ####[facility] LABIA [id number] [place] [address] [place] AMERICAMonocytes/100 WBC (Bld)8.9 %NormalWVUMedicine Barnesville Hospital on above:Order Comment: Specimen Type: BLOOD SPECIMENOrdering Facility: [facility] Address:[address] [place], [place] [address]Performed By: #### 23660-3 ####[facility] LABIA [id number] [place] [address] [place] AMERICANeutrophils (Bld) [#/Vol]7.83 10*3/uLHigh1.45-7.50[facility] on above:Order Comment: Specimen Type: BLOOD SPECIMENOrdering Facility: [facility] Address:[address] [place], [place] [address]Performed By: #### 75286-6 ####[facility] LABCLIA [id number] [place] [address] [place] AMERICANeutrophils/100 WBC (Bld)71.7 % NormalWVUMedicine Barnesville Hospital on above:Order Comment: Specimen Type: BLOOD SPECIMENOrdering Facility: [facility] Address:[address] [place], [place] [address]Performed By: #### 10944-9 ####[facility] LABIA [id number] [place] [address] [place]ICANucleated RBC (Bld) [#/Vol]10*3/uLNormal<0.01[facility] on above:Order Comment: Specimen Type: BLOOD SPECIMENOrdering Facility: [facility] Address:[address] [place], [place] [address]Performed By: #### 89153-8 ####[facility] LABIA [id number] [place] [address] [place] AMERICANucleated RBC/100 WBC (Bld) [Ratio]0.0 /100 WBCNormalCMercer County Community Hospital on above:Order Comment: Specimen Type: BLOOD SPECIMENOrdering Facility: [facility] Address:[address] [place] [address]Qlxzebkrh By: #### 72154-3 ####[facility] LABIA [id number] [place] [address] [place] AMERICAPlatelet mean volume (Bld) [Entitic vol]9.4 fLNormal9.0-12.7 [facility] on above:Order Comment: Specimen Type: BLOOD SPECIMENOrdering Facility: [facility] Address:[address] [place] [address]Performed By: #### 45582-5 ####[facility] LABIA [id number] [address] [address] [place] AMERICAPlatelets (Bld) [#/Vol]593 10*3/zUNigm023-730DikiswkgwWVUMedicine [facility] Hospital on above:Order Comment: Specimen Type: BLOOD SPECIMENOrdering Facility: [facility] Address:[address] [place], [place] [address]Performed By: #### 02263-7 ####[facility] LABIA [id number] [address] OF [place] RBC (Bld) [#/Vol]3.08 10*6/uLLow4.20-6.00[facility] on above:Order Comment: Specimen Type: BLOOD SPECIMENOrdering Facility: [facility] Address:[address] [place], [place] [address]Performed By: #### 51930-9 ####[facility] LABIA [id number] [address] OF [facility] MEDICAL CENTERWBC (Bld) [#/Vol]10.90 10*3/uLNormal3.70-11.00[facility] on above:Order Comment: Specimen Type: BLOOD SPECIMENOrdering Facility: [facility] Address:[address] [place], [place] [address]Performed By: #### 06584-6 ####[facility] [id number] [place] [id number] [place] AMERICACONSULT PROGon 42-87-4722WXWFMVG PROGNormalOhio State East HospitalCONSULT PROGNormal [facility] HospitalComprehensive metabolic 2000 panelon 82-11-5887Iottano [Mass/Vol]3.5 g/dLLow3.9-4.9CMercer County Community Hospital on above:Order Comment: Specimen Type: BLOOD SPECIMENOrdering Facility: [facility] Address:[address] [place] [address]Performed By: #### 24031-8 ####[facility] LABCLIA [id number] [place] [address] [place] AMERICAALP [Catalytic activity/Vol]162 U/BPtcd09-434MfofhofvbWVUMedicine [facility] Hospital on above:Order Comment: Specimen Type: BLOOD SPECIMENOrdering Facility: [facility] Address:[address] [place], [place] [address]Performed By: #### 73772-0 ####[facility] LABCLIA [id number] [place] [address] [place] AMERICAALT [Catalytic activity/Vol]129 U/ZVjpm69-38WhfedftxmWVUMedicine [facility] Hospital on above:Order Comment: Specimen Type: BLOOD SPECIMENOrdering Facility: [facility] Address:[address] [place], [place] [address]Performed By: #### 48313-1 ####[facility] LABCLIA [id number] [place] [address] [place] AMERICAAnion gap [Moles/Vol]8 mmol/LLow9-18[facility] on above:Order Comment: Specimen Type: BLOOD SPECIMENOrdering Facility: [facility] Address:[address] [place], [place] [address]Performed By: #### 01238-3 ####[facility] LABCLIA [id number] [place] [address] [place] AMERICAAST [Catalytic activity/Vol]57 U/YNwnr64-13 [facility] on above:Order Comment: Specimen Type: BLOOD SPECIMENOrdering Facility: [facility] Address:[address] [place] [address]Performed By: #### 39275-1 ####[facility] LABCLIA [id number] [place] [address] [place] AMERICABilirubin [Mass/Vol]0.4 mg/dLNormal0.2-1.3CMercer County Community Hospital on above:Order Comment: Specimen Type: BLOOD SPECIMENOrdering Facility: [facility] Address:[address] [place], [place] [address]Performed By: #### 45163-6 ####[facility] LABCLIA [id number] [place] [address] [place] Calcium [Mass/Vol]8.6 mg/dLNormal8.5-10.2CMercer County Community Hospital on above:Order Comment: Specimen Type: BLOOD SPECIMENOrdering Facility: [facility] Address:[address] [place], [place] [address]Performed By: #### 20958-0 ####[facility] LABCLIA [id number] [place] [address] [place] AMERICAChloride [Moles/Vol]97 mmol/PRkgcti25-273KqxzymylhWVUMedicine [facility] Hospital on above:Order Comment: Specimen Type: BLOOD SPECIMENOrdering Facility: [facility] Address:[address] [place], [place] [address]Performed By: #### 04887-7 ####[facility] LABCLIA [id number] [place] [address] [place] AMERICACO2 [Moles/Vol]25 mmol/LNormal 22-30[facility] on above:Order Comment: Specimen Type: BLOOD SPECIMENOrdering Facility: [facility] Address:[address] [place], [place] [address]Performed By: #### 43722-1 ####[facility] LABCLIA [id number] [place] [address] [place] AMERICACreatinine [Mass/Vol]0.87 mg/dLNormal0.73-1.22[facility] on above:Order Comment: Specimen Type: BLOOD SPECIMENOrdering Facility: [facility] Address:[address] [place], [place] [address]Performed By: #### 04374-8 ####[facility] LABCLIA [id number] [address]ETESTIMATED GLOMERULAR FILTRATION RATE99 mL/min/1.73m???Normal >=60[facility] on above:Order Comment: Specimen Type: BLOOD SPECIMENOrdering Facility: [facility] Address:[address] [place], [place] [address]Result Comment: Estimated Glomerular Filtration Rate (eGFR) is calculated using the 2020 CKD-EPI creatinine equation. This equation utilizes serum creatinine, sex, and age as parameters. The creatinine assay has traceable calibration to isotope dilution-mass spectrometry. Refer to KDIGO guidelines for clinical interpretation. In patients with unstable renal function, e.g. those with acute kidney injury, the eGFR may not accurately reflect actual GFR.Performed By: #### 42159-5 ####[facility]ITALIA [id number] [address]ETGlucose [Mass/Vol]133 mg/yUTetw49-43TyfirmwnxWVUMedicine [facility] Hospital on above:Order Comment: Specimen Type: BLOOD SPECIMENOrdering Facility: [facility] Address:[address] [place], [place] [address]Result Comment: The [place] Diabetes Association (ADA) provides guidance for cutoff values for fasting glucose and random glucose. The ADA defines fasting as no caloric intake for at least 8 hours. Fasting plasma glucose results between 100 to 125 mg/dL indicate increased risk for diabetes (prediabetes).Fasting plasma glucose results greater than or equal to 126 mg/dL meet the criteria for diagno sis of diabetes. In the absence of unequivocal hyperglycemia, results should be confirmed by repeattesting. In a patient with classic symptoms of hyperglycemia or hyperglycemic crisis, random plasmaglucose results greater than or equal to 200 mg/dL meet the criteria for diagnosis of diabetes.Reference: Standards of Medical Care in Diabetes 2016, [place] [employer]. Diabetes Care. 2016.39(Suppl 1).Performed By: #### 72524-3 ####[facility] LABIA [id number] [address] [facility] MEDICAL CENTERPotassium [Moles/Vol]4.7 mmol/LNormal3.7-5.1COhioHealth Southeastern Medical Center Comment on above:Order Comment: Specimen Type: BLOOD SPECIMENOrdering Facility: [facility] Address:[address] [place] [address] Performed By: #### 88632-2 ####[facility] LABCLIA [id number] [place] [address] [place] Protein [Mass/Vol]7.5 g/dLNormal6.3-8.0[facility] on above:Order Comment: Specimen Type: BLOOD SPECIMENOrdering Facility: [facility] Address:[address] [place], [place] [address]Performed By: #### 97065-2 ####[facility] LABIA [id number] [place] [address] [place] AMERICASodium [Moles/Vol]130 mmol/WOah872-185BfynhrbjxSumma Health Akron Campusment on above:Order Comment: Specimen Type: BLOOD SPECIMENOrdering Facility: [facility] Address:[address] [place], [place] [address]Performed By: #### 57818-8 ####[facility] LABCLIA [id number] [place] [address] [place] AMERICAUrea nitrogen [Mass/Vol]19 mg/dL Normal9-24[facility] on above:Order Comment: Specimen Type: BLOOD SPECIMENOrdering Facility: [facility] Address:[address] [place], [place] [address]Performed By: #### 07775-6 ####[facility] LABIA [id number] [place] [address] [place] AMERICATHERAPY NTon 68-38-9545NVHIOCJ NTNormalCOhioHealth Southeastern Medical CenterCB W Auto Differential panel (Bld)on 16-98-8835Mwpdcfgny (Bld) [#/Vol]0.18 10*3/uLHigh<0.11CMercer County Community Hospital on above:Order Comment: Specimen Type: BLOOD SPECIMENOrdering Facility: [facility] Address:[address] [place], [place] [address]Performed By: #### 83102-3 ####[facility] LABCLIA [id number] [place] [address] [place] AMERICABasophils/100 WBC (Bld)1.6 %NormalWVUMedicine Barnesville Hospital on above:Order Comment: Specimen Type: BLOOD SPECIMENOrdering Facility: [facility] Address:[address] [place], [place] [address]Performed By: #### 35962-7 ####[facility] LABCLIA [id number] [place] [address] [place] AMERICADifferential cell count method Nom (Bld)AutoNormalCMercer County Community Hospital on above:Order Comment: Specimen Type: BLOOD SPECIMENOrdering Facility: [facility] Address:[address] [place], [place] [address]Performed By: #### 75399-4 ####[facility] LABCLIA [id number] [place] [address] [place] AMERICAEosinophils (Bld) [#/Vol]0.13 10*3/uLNormal<0.46[facility] on above:Order Comment: Specimen Type: BLOOD SPECIMENOrdering Facility: [facility] Address:[address] [place], [place] [address]Performed By: #### 58165-6 ####[facility] LABCLIA [id number] [place] [address] [place]ICAEosinophils/100 WBC (Bld)1.2 % NormalWVUMedicine Barnesville Hospital on above:Order Comment: Specimen Type: BLOOD SPECIMENOrdering Facility: [facility] Address:[address] [place], [place] [address]Performed By: #### 96874-7 ####[facility] LABIA [id number] [place] [address] [place] AMERICAErythrocyte distribution width (RBC) [Ratio]15.9 %High 11.5-15.0[facility] on above:Order Comment: Specimen Type: BLOOD SPECIMENOrdering Facility: [facility] Address:[address] [place], [place] [address]Performed By: #### 21290-2 ####[facility] [id number] [place] [address] [place] AMERICAHematocrit (Bld) [Volume fraction]25.5 %Low 39.0-51.0[facility] on above:Order Comment: Specimen Type: BLOOD SPECIMENOrdering Facility: [facility] Address:[address] [place], [place] [address]Performed By: #### 03825-1 ####[facility] [id number] [place] [address] [place] AMERICAHemoglobin (Bld) [Mass/Vol]8.2 g/dLLow13.0-17.0 [facility] on above:Order Comment: Specimen Type: BLOOD SPECIMENOrdering Facility: [facility] Address:[address] [place], [place] [address]Performed By: #### 69899-1 ####[facility] [id number] [place] [address] [place] AMERICAImmature granulocytes (Bld) [#/Vol]0.14 10*3/uLHigh<0.10 [facility] on above:Order Comment: Specimen Type: BLOOD SPECIMENOrdering Facility: [facility] Address:[address] [place] [address]Performed By: #### 64398-6 ####[facility] [id number] [place] [address] [place] AMERICAImmature granulocytes/100 WBC (Bld)1.2 %NormalWVUMedicine Barnesville Hospital on above:Order Comment: Specimen Type: BLOOD SPECIMENOrdering Facility: [facility] Address:[address] [place], [place] [address]Performed By: #### 05334-6 ####[facility] LABCLIA [id number] [place] [address] [place] Lymphocytes (Bld) [#/Vol]1.57 10*3/uLNormal1.00-4.00[facility] Comment on above:Order Comment: Specimen Type: BLOOD SPECIMENOrdering Facility: [facility] Address:[address] [place] [address] Performed By: #### 03007-4 ####[facility] LABCLIA [id number] [place] [address] [place] Lymphocytes/100 WBC (Bld)14.0 %NormalWVUMedicine Barnesville Hospital on above: Order Comment: Specimen Type: BLOOD SPECIMENOrdering Facility: [facility] Address:[address] [place], [place] [address]Performed By: #### 88119-8 ####[facility] LABCLIA [id number] [address] (RBC) [Entitic mass]26.9 jvQzaqln80.0-34.0[facility] HospitalComascension [facility] on above:Order Comment: Specimen Type: BLOOD SPECIMENOrdering Facility: [facility] Address:[address] [place], [place] [address]Performed By: #### 11552-3 ####[facility] LABCLIA [id number] [address] (RBC) [Mass/Vol] 32.2 g/iYRstias67.5-36.0[facility] on above:Order Comment: Specimen Type: BLOOD SPECIMENOrdering Facility: [facility] Address:[address] [place], [place] [address]Performed By: #### 79079-7 ####[facility] LABIA [id number] [place] [address] [place] AMERICAMCV (RBC) [Entitic vol]83.6 oRZnfaxe10.0-100.0[facility] on above:Order Comment: Specimen Type: BLOOD SPECIMENOrdering Facility: [facility] Address:[address] [place], [place] [address]Performed By: #### 47301-4 ####[facility] HOSPITALIA [id number] [place] [address] [place] AMERICAMonocytes (Bld) [#/Vol]0.78 10*3/uLNormal<0.87[facility] on above:Order Comment: Specimen Type: BLOOD SPECIMENOrdering Facility: [facility] Address:[address] [place], [place] [address]Performed By: #### 79485-0 ####[facility] LABIA [id number] [place] [address] [place] AMERICAMonocytes/100 WBC (Bld)7.0 %NormalWVUMedicine Barnesville Hospital on above:Order Comment: Specimen Type: BLOOD SPECIMENOrdering Facility: [facility] Address:[address] [place], [place] [address]Performed By: #### 91604-9 ####[facility] LABIA [id number] [place] [address] [place] AMERICANeutrophils (Bld) [#/Vol]8.42 10*3/uLHigh1.45-7.50[facility] on above:Order Comment: Specimen Type: BLOOD SPECIMENOrdering Facility: [facility] Address:[address] [place], [place] [address]Performed By: #### 55051-8 ####[facility] LABCLIA [id number] [place] [address] [place] AMERICANeutrophils/100 WBC (Bld)75.0 % NormalWVUMedicine Barnesville Hospital on above:Order Comment: Specimen Type: BLOOD SPECIMENOrdering Facility: [facility] Address:[address] [place], [place] [address]Performed By: #### 87966-7 ####[facility] LABCLIA [id number] [place] [address] [place] AMERICANucleated RBC (Bld) [#/Vol]10*3/uLNormal<0.01[facility] on above:Order Comment: Specimen Type: BLOOD SPECIMENOrdering Facility: [facility] Address:[address] [place], [place] [address]Performed By: #### 09626-1 ####[facility] LABIA [id number] [place] [address] [place] AMERICANucleated RBC/100 WBC (Bld) [Ratio]0.0 /100 WBCNormalCMercer County Community Hospital on above:Order Comment: Specimen Type: BLOOD SPECIMENOrdering Facility: [facility] Address:[address] [place], [place] [address]Performed By: #### 14370-6 ####[facility] LABIA [id number] [place] [address] [place] AMERICAPlatelet mean volume (Bld) [Entitic vol]9.6 fLNormal9.0-12.7 [facility] on above:Order Comment: Specimen Type: BLOOD SPECIMENOrdering Facility: [facility] Address:[address] [place] [address]Performed By: #### 93101-4 ####[facility] LABIA [id number] [place] [address] [place] AMERICAPlatelets (Bld) [#/Vol]632 10*3/sAYhwp305-721ZoayczodcWVUMedicine Barnesville Hospital on above:Order Comment: Specimen Type: BLOOD SPECIMENOrdering Facility: [facility] Address:[address] [place] [address]Performed By: #### 95249-5 ####[facility] LABCLIA [id number] [place] [address] [place] RBC (Bld) [#/Vol]3.05 10*6/uLLow4.20-6.00[facility] on above:Order Comment: Specimen Type: BLOOD SPECIMENOrdering Facility: [facility] Address:[address] [place], [place] [address]Performed By: #### 00392-2 ####[facility] LABIA [id number] [place] [address] [place] AMERICAWBC (Bld) [#/Vol]11.22 10*3/uLHigh3.70-11.00[facility] on above:Order Comment: Specimen Type: BLOOD SPECIMENOrdering Facility: [facility] Address:[address] [place] [address]Performed By: #### [id number] ####[facility] LABIA [id number] [place] [address] [place] AMERICAComprehensive metabolic 2000 panelon [id number] [Mass/Vol]3.4 g/dLLow3.9-4.9COhio[facility] Comment on above:Order Comment: Specimen Type: BLOOD SPECIMENOrdering Facility: [facility] Address:[address] [place] [address] Performed By: #### 99740-1 ####[facility] LABIA [id number] [place] [address] [place] [Catalytic activity/Vol]153 U/TBqbz59-698VnakdzgtdWVUMedicine [facility] on above:Order Comment: Specimen Type: BLOOD SPECIMENOrdering Facility: [facility] Address:[address] [place] [address] Performed By: #### 87072-4 ####[facility] LABCLIA [id number] [place] [address] [place] [Catalytic activity/Vol]166 U/YBtcd34-62ZsezwuzdsWVUMedicine [facility] on above:Order Comment: Specimen Type: BLOOD SPECIMENOrdering Facility: [facility] Address:[address] [place] [address]Performed By: #### 95473-2 ####[facility] LABCLIA [id number] [place] [address] [place] AMERICAAnion gap [Moles/Vol]9 mmol/LNormal9-18[facility] on above:Order Comment: Specimen Type: BLOOD SPECIMENOrdering Facility: [facility] Address:[address] [place] [address]Performed By: #### 15755-9 ####[facility] LABCLIA [id number] [place] [address] [place] AMERICAAST [Catalytic activity/Vol]105 U/ZFqjy62-75XfwcacqajWVUM[facility] on above:Order Comment: Specimen Type: BLOOD SPECIMENOrdering Facility: [facility] Address:[address] [place] [id number] By: #### 33327-1 ####[facility] LABCLIA [id number] [place] [id number] [place] AMERICABilirubin [Mass/Vol]0.3 mg/dLNormal0.2-1.3 [facility] on above:Order Comment: Specimen Type: BLOOD SPECIMENOrdering Facility: [facility] Address:[address] [place] [address]Performed By: #### 58813-4 ####[facility] LABCLIA [id number] [place] [id number] [place] AMERICACalcium [Mass/Vol]8.7 mg/dLNormal8.5-10.2CMercer [facility] Community [facility] on above:Order Comment: Specimen Type: BLOOD SPECIMENOrdering Facility: [facility] Address:[address] [place], [place] [address]Performed By: #### 75666-0 ####[facility] LABCLIA [id number] [place] [address] [place] Chloride [Moles/Vol]98 mmol/EVlxwhm69-340VlwzwbnmpWVUMedicine [facility] on above:Order Comment: Specimen Type: BLOOD SPECIMENOrdering Facility: [facility] Address:[address] [place], [place] [address]Performed By: #### 31742-9 ####[facility] LABCLIA [id number] [place] [address] [place] AMERICACO2 [Moles/Vol]25 mmol/YQbblum30-79HbaxjnjihWVUMedicine [facility] on above:Order Comment: Specimen Type: BLOOD SPECIMENOrdering Facility: [facility] Address:[address] [place], [place] [address]Performed By: #### 39186-1 ####[facility] LABCLIA [id number] [place] [address] [place] AMERICACreatinine [Mass/Vol]0.84 mg/dL Normal0.73-1.22[facility] on above:Order Comment: Specimen Type: BLOOD SPECIMENOrdering Facility: [facility] Address:[address] [place] [address]Performed By: #### 85304-4 ####[facility] LABCLIA [id number] [place] [address] [place] AMERICAESTIMATED GLOMERULAR FILTRATION FGJS005 mL/min/1.73m???Normal>=60[facility] on above: Order Comment: Specimen Type: BLOOD SPECIMENOrdering Facility: [facility] Address:[address] [id number] Comment: Estimated Glomerular Filtration Rate (eGFR) is calculated using the 2020 CKD-EPI creatinine equation. This equation utilizes serum creatinine, sex, and age as parameters. The creatinine assay has traceable calibration to isotope dilution- mass spectrometry. Refer to KDIGO guidelines for clinical interpretation. In patients with unstable renal function, e.g. those with acute kidney injury, the eGFR may not accurately reflect actual GFR.Performed By: #### 44921-8 ####[facility] LABCLIA [id number] [place] [id number] [place] AMERICAGlucose [Mass/Vol]120 mg/dLHigh 74-99[facility] on above:Order Comment: Specimen Type: BLOOD SPECIMENOrdering Facility: [facility] Address:[address] [place], [place] [address]Result Comment: The [place] Diabetes Association (ADA) provides guidance for cutoff values for fasting glucose and random glucose. The ADA defines fasting as no caloric intake for at least 8 hours. F asting plasma glucose results between 100 to 125 mg/dL indicate increased risk for diabetes (prediabetes).Fasting plasma glucose results greater than or equal to 126 mg/dL meet the criteria for diagnosis of diabetes. In the absence of unequivocal hyperglycemia, results should be confirmed by repeattesting. In a patient with classic symptoms of hyperglycemia or hyperglycemic crisis, random plasmaglucose results greater than or equal to 200 mg/dL meet the criteria for diagnosis of diabetes.Reference: Standards of Medical Care in Diabetes 2016, [place] [employer] Association. Diabetes Care. 2016.39(Suppl 1).Performed By: #### 88345-5 ####[facility] LABIA [id number] [place] [id number] [place] AMERICAPotassium [Moles/Vol] 4.9 mmol/LNormal3.7-5.1CMercer [facility] on above:Order Comment: Specimen Type: BLOOD SPECIMENOrdering Facility: [facility] Address:[address] [id number] By: #### 81722-3 ####[facility] LABCLIA [id number] [place] [address] [place] AMERICAProtein [Mass/Vol]7.2 g/dLNormal 6.3-8.0[facility] on above:Order Comment: Specimen Type: BLOOD SPECIMENOrdering Facility: [facility] Address:[address] [place], [place] [address]Performed By: #### 27648-1 ####[facility] LABIA [id number] [place] [address] [place] [facility] CENTERSodium [Moles/Vol]132 mmol/OTkb132-913QemmcbxfhWVUMedicine [facility] on above:Order Comment: Specimen Type: BLOOD SPECIMENOrdering Facility: [facility] Address:[address] [place], [place] [address]Performed By: #### 21042-6 ####[facility] LABIA [id number] [place] [address] [place] Urea nitrogen [Mass/Vol]22 mg/dLNormal9-24[facility] on above:Order Comment: Specimen Type: BLOOD SPECIMENOrdering Facility: [facility] Address:[address] [place], [place] [address]Performed By: #### 07881-8 ####[facility] LABIA [id number] [place] [address] [place] AMERICACB W Auto Differential panel (Bld)on 67-86-8611Vstovtmsu (Bld) [#/Vol]0.15 10*3/uLHigh <0.11CMercer County Community Hospital on above:Order Comment: Specimen Type: BLOOD SPECIMENOrdering Facility: [facility] Address:[address] [place] [address]Performed By: #### 62458-6 ####[facility] LABIA [id number] [place] [address] [place] AMERICABasophils/100 WBC (Bld)1.6 %NormalOhio State East HospitalComascension st. john hospital on above:Order Comment: Specimen Type: BLOOD SPECIMENOrdering Facility: [facility] Address:[address] [place], [place] [address]Performed By: #### 55042-4 ####[facility] LABCLIA [id number] [place] [address] [place] Differential cell count method Nom (Bld)AutoNormalCOhioHealth Southeastern Medical Center Comment on above:Order Comment: Specimen Type: BLOOD SPECIMENOrdering Facility: [facility] Address:[address] [place] [address] Performed By: #### 81871-9 ####[facility] LABCLIA [id number] [place] [address] [place] Eosinophils (Bld) [#/Vol]0.12 10*3/uLNormal<0.46[facility] Comment on above:Order Comment: Specimen Type: BLOOD SPECIMENOrdering Facility: [facility] Address:[address] [place], [place] [address] Performed By: #### 71927-6 ####[facility] LABCLIA [id number] [place] [address] [place] Eosinophils/100 WBC (Bld)1.3 %NormalOhio State East HospitalComascension st. john hospital on above: Order Comment: Specimen Type: BLOOD SPECIMENOrdering Facility: [facility] Address:[address] [place], [place] [address]Performed By: #### 78946-2 ####[facility] LABCLIA [id number] [place] [address] [place] AMERICAErythrocyte distribution width (RBC) [Ratio]15.9 %High11.5-15.0[facility] Comment on above:Order Comment: Specimen Type: BLOOD SPECIMENOrdering Facility: [facility] Address:[address] [place], [place] [address] Performed By: #### 96829-3 ####[facility] LABCLIA [id number] [place] [address] [place] Hematocrit (Bld) [Volume fraction]24.2 %Low39.0-51.0[facility] Comment on above:Order Comment: Specimen Type: BLOOD SPECIMENOrdering Facility: [facility] Address:[address] [place] [address] Performed By: #### 59594-4 ####[facility] LABIA [id number] [place] [address] [place] Hemoglobin (Bld) [Mass/Vol]7.4 g/dLLow13.0-17.0[facility] HospitalComment on above:Order Comment: Specimen Type: BLOOD SPECIMENOrdering Facility: [facility] Address:[address] [place] [address] Performed By: #### 38295-8 ####[facility] LABIA [id number] [place] [address] [place] Immature granulocytes (Bld) [#/Vol]0.13 10*3/uLHigh<0.10[facility] HospitalComment on above:Order Comment: Specimen Type: BLOOD SPECIMENOrdering Facility: [facility] Address:[address] [place], [place] [address]Performed By: #### 77648-4 ####[facility] LABIA [id number] [place] [address] [place] Immature granulocytes/100 WBC (Bld)1.4 %NormalWVUMedicine [facility] on above:Order Comment: Specimen Type: BLOOD SPECIMENOrdering Facility: [facility] Address:[address] [place], [place] [address] Performed By: #### 18922-9 ####[facility] LABIA [id number] [place] [address] [place] Lymphocytes (Bld) [#/Vol]1.94 10*3/uLNormal1.00-4.00[facility] Comment on above:Order Comment: Specimen Type: BLOOD SPECIMENOrdering Facility: [facility] Address:[address] [place] [address] Performed By: #### 02237-3 ####[facility] LABCLIA [id number] [address] [place] Lymphocytes/100 WBC (Bld)20.4 %NormalOhio State East HospitalComment on above: Order Comment: Specimen Type: BLOOD SPECIMENOrdering Facility: [facility] Address:[address] [place], [place] [address]Performed By: #### 75258-8 ####[facility] LABIA [id number] [address] (RBC) [Entitic mass]26.6 exEnyvst94.0-34.0[facility] HospitalComment on above:Order Comment: Specimen Type: BLOOD SPECIMENOrdering Facility: [facility] Address:[address] [place], [place] [address]Performed By: #### 60891-2 ####[facility] LABIA [id number] [address]MC (RBC) [Mass/Vol] 30.6 g/uWOsqocp14.5-36.0[facility] HospitalComment on above:Order Comment: Specimen Type: BLOOD SPECIMENOrdering Facility: [facility] Address:[address] [place], [place] [address]Performed By: #### 99069-9 ####[facility] LABIA [id number] [address] (RBC) [Entitic vol]87.1 eIWisrrr66.0-100.0[facility] on above:Order Comment: Specimen Type: BLOOD SPECIMENOrdering Facility: [facility] Address:[address] [place] [address]Performed By: #### 66429-7 ####[facility] LABCLIA [id number] [place] [address] [place] AMERICAMonocytes (Bld) [#/Vol]0.66 10*3/uLNormal<0.87[facility] on above:Order Comment: Specimen Type: BLOOD SPECIMENOrdering Facility: [facility] Address:[address] [place] [address]Performed By: #### 72603-9 ####[facility] LABCLIA [id number] [place] [address] [place] AMERICAMonocytes/100 WBC (Bld)6.9 %NormalWVUMedicine Barnesville Hospital on above:Order Comment: Specimen Type: BLOOD SPECIMENOrdering Facility: [facility] Address:[address] [place] [address]Performed By: #### 08391-5 ####[facility] LABCLIA [id number] [place] [address] [place] AMERICANeutrophils (Bld) [#/Vol]6.50 10*3/uLNormal1.45-7.50[facility] on above:Order Comment: Specimen Type: BLOOD SPECIMENOrdering Facility: [facility] Address:[address] [place] [address]Performed By: #### 30493-9 ####[facility] LABCLIA [id number] [place] [address] [place] AMERICANeutrophils/100 WBC (Bld)68.4 % NormalWVUMedicine Barnesville Hospital on above:Order Comment: Specimen Type: BLOOD SPECIMENOrdering Facility: [facility] Address:[address] [place] [address]Performed By: #### 64611-8 ####[facility] LABCLIA [id number] [place] [id number] [place] AMERICANucleated RBC (Bld) [#/Vol]10*3/uLNormal<0.01[facility] on above:Order Comment: Specimen Type: BLOOD SPECIMENOrdering Facility: [facility] Address:[address] [place], [place] [address]Performed By: #### 49365-2 ####[facility] LABCLIA [id number] [place] [address] [place] AMERICANucleated RBC/100 WBC (Bld) [Ratio]0.0 /100 WBCNormalCMercer County Community Hospital on above:Order Comment: Specimen Type: BLOOD SPECIMENOrdering Facility: [facility] Address:[address] [place], [place] [address]Performed By: #### 38418-4 ####[facility] LABCLIA [id number] [place] [address] [place] AMERICAPlatelet mean volume (Bld) [Entitic vol]9.7 fLNormal9.0-12.7 [facility] on above:Order Comment: Specimen Type: BLOOD SPECIMENOrdering Facility: [facility] Address:[address] [place] [address]Performed By: #### 00249-8 ####[facility] LABCLIA [id number] [place] [address] [place] AMERICAPlatelets (Bld) [#/Vol]576 10*3/rBTpki162-038WadapsunmWVUMedicine [facility] on above:Order Comment: Specimen Type: BLOOD SPECIMENOrdering Facility: [facility] Address:[address] [place] [address]Performed By: #### 88904-4 ####[facility] LABCLIA [id number] [place] [address] [place] RBC (Bld) [#/Vol]2.78 10*6/uLLow4.20-6.00[facility] on above:Order Comment: Specimen Type: BLOOD SPECIMENOrdering Facility: [facility] Address:[address] [place], [place] [address]Performed By: #### 21465-2 ####[facility] LABCLIA [id number] [place] [address] [place] AMERICAWBC (Bld) [#/Vol]9.50 10*3/uLNormal3.70-11.00[facility] on above:Order Comment: Specimen Type: BLOOD SPECIMENOrdering Facility: [facility] Address:[address] [place], [place] [address]Performed By: #### 50763-2 ####[facility] LABCLIA [id number] [place] [address] [place] AMERICACONSULT PROGon 19-00-8387TKNYCSR PROGNormalSumma Health Akron Campusprehensive metabolic 2000 panelon 42-94-9261Bmwiaqg [Mass/Vol]3.4 g/dLLow3.9-4.9CMercer County Community Hospital on above:Order Comment: Specimen Type: BLOOD SPECIMENOrdering Facility: [facility] Address:[address] [place] [address] Performed By: #### 67381-5 ####[facility] LABCLIA [id number] [place] [address] [place] ALP [Catalytic activity/Vol]127 U/TXkkj17-908GeipnvmdsWVUMedicine [facility] Hospital on above:Order Comment: Specimen Type: BLOOD SPECIMENOrdering Facility: [facility] Address:[address] [place] [address] Performed By: #### 45508-6 ####[facility] LABCLIA [id number] [place] [address] [place] ALT [Catalytic activity/Vol]156 U/NHefu56-04WsxkfljusWVUM[facility]icine [facility] on above:Order Comment: Specimen Type: BLOOD SPECIMENOrdering Facility: [facility] Address:[address] [place], [place] [address]Performed By: #### 27261-5 ####[facility] LABCLIA [id number] [place] [address] [place] [facility] MEDICAL CENTERAnion gap [Moles/Vol]8 mmol/LLow9-18[facility] on above:Order Comment: Specimen Type: BLOOD SPECIMENOrdering Facility: [facility] Address:[address] [place], [place] [address]Performed By: #### 31131-9 ####[facility] LABCLIA [id number] [place] [address] [place] AMERICAAST [Catalytic activity/Vol]114 U/XOcvd97-95 [facility] on above:Order Comment: Specimen Type: BLOOD SPECIMENOrdering Facility: [facility] Address:[address] [place], [place] [address]Performed By: #### 93483-1 ####[facility] LABCLIA [id number] [place] [address] [place] AMERICABilirubin [Mass/Vol]0.2 mg/dLNormal0.2-1.3CMercer County Community Hospital on above:Order Comment: Specimen Type: BLOOD SPECIMENOrdering Facility: [facility] Address:[address] [place] [address]Performed By: #### 54879-1 ####[facility] LABCLIA [id number] [place] [address] [place] Calcium [Mass/Vol]8.4 mg/dLLow8.5-10.2CMercer County Community Hospital on above:Order Comment: Specimen Type: BLOOD SPECIMENOrdering Facility: [facility] Address:[address] [place], [place] [address]Performed By: #### 20528-7 ####[facility] LABCLIA [id number] [place] [address] [place] AMERICAChloride [Moles/Vol] 104 mmol/VGvztaf89-547YyyrfanncWVUMedicine [facility] Hospital on above:Order Comment: Specimen Type: BLOOD SPECIMENOrdering Facility: [facility] Address:[address] [place], [place] [address]Performed By: #### 00898-3 ####[facility] LABCLIA [id number] [place] [address] [place] AMERICACO2 [Moles/Vol]25 mmol/LNormal 22-30[facility] on above:Order Comment: Specimen Type: BLOOD SPECIMENOrdering Facility: [facility] Address:[address] [place], [place] [address]Performed By: #### 30414-5 ####[facility] LABIA [id number] [place] [address] [place] AMERICACreatinine [Mass/Vol]0.83 mg/dLNormal0.73-1.22[facility] on above:Order Comment: Specimen Type: BLOOD SPECIMENOrdering Facility: [facility] Address:[address] [place], [place] [address]Performed By: #### 06906-9 ####[facility] LABIA [id number] [place] [address] [place] AMERICAESTIMATED GLOMERULAR FILTRATION STFY594 mL/min/1.73m???Normal >=60[facility] on above:Order Comment: Specimen Type: BLOOD SPECIMENOrdering Facility: [facility] Address:[address] [place], [place] [address]Result Comment: Estimated Glomerular Filtration Rate (eGFR) is calculated using the 2020 CKD-EPI creatinine equation. This equation utilizes serum creatinine, sex, and age as parameters. The creatinine assay has traceable calibration to isotope dilution-mass spectrometry. Refer to KDIGO guidelines for clinical interpretation. In patients with unstable renal function, e.g. those with acute kidney injury, the eGFR may not accurately reflect actual GFR.Performed By: #### 47400-6 ####[facility] LABCLIA [id number] [place] [address] [place] AMERICAGlucose [Mass/Vol]101 mg/lVTegy46-83SydktskwtOhio State East HospitalComment on above:Order Comment: Specimen Type: BLOOD SPECIMENOrdering Facility: [facility] Address:[address] [place], [place] [address]Result Comment: The [place] Diabetes Association (ADA) provides guidance for cutoff values for fasting glucose and random glucose. The ADA defines fasting as no caloric intake for at least 8 hours. Fasting plasma glucose results between 100 to 125 mg/dL indicate increased risk for diabetes (prediabetes).Fasting plasma glucose results greater than or equal to 126 mg/dL meet the criteria for diagno sis of diabetes. In the absence of unequivocal hyperglycemia, results should be confirmed by repeattesting. In a patient with classic symptoms of hyperglycemia or hyperglycemic crisis, random plasmaglucose results greater than or equal to 200 mg/dL meet the criteria for diagnosis of diabetes.Reference: Standards of Medical Care in Diabetes 2016, [place] [employer]. Diabetes Care. 2016.39(Suppl 1).Performed By: #### 09627-6 ####[facility] LABCLIA [id number] [place] [address] [place] AMERICAPotassium [Moles/Vol]5.0 mmol/LNormal3.7-5.1COhioHealth Southeastern Medical Center Comment on above:Order Comment: Specimen Type: BLOOD SPECIMENOrdering Facility: [facility] Address:[address] [place] [address] Performed By: #### 90969-1 ####[facility] LABCLIA [id number] [place] [address] [place] Protein [Mass/Vol]7.0 g/dLNormal6.3-8.0[facility] East HospitalComascension [facility] on above:Order Comment: Specimen Type: BLOOD SPECIMENOrdering Facility: [facility] Address:[address] [place], [place] [address]Performed By: #### 40283-2 ####[facility] LABCLIA [id number] [place] [address] [place] AMERICASodium [Moles/Vol]137 mmol/GHfomub737-845BryqyefwcWVUMedicine [facility]ville Hospital on above:Order Comment: Specimen Type: BLOOD SPECIMENOrdering Facility: [facility] Address:[address] [place], [place] [address]Performed By: #### 66610-5 ####[facility] LABCLIA [id number] [place] [address] [place] AMERICAUrea nitrogen [Mass/Vol]22 mg/dL Normal9-24[facility] on above:Order Comment: Specimen Type: BLOOD SPECIMENOrdering Facility: [facility] Address:[address] [place], [place] [address]Performed By: #### 75849-5 ####[facility] LABCLIA [id number] [place] [address] [place] AMERICATYPE + SCREENon 09-31-5243SOXLDwjgjhLzrnivbuzMercer County Community Hospital on above:Order Comment: Specimen Type: BLOOD SPECIMENOrdering Facility: [facility] Address:[address] [place], [place] [address]Performed By: #### TSCR ####[facility] BLOOD BANKCLIA [id number] [place] [address] [place] AMERICAHISTORICAL AB SCR STATUSNegativeNormalCMercer County Community Hospital on above:Order Comment: Specimen Type: BLOOD SPECIMENOrdering Facility: [facility] Address:[address] [place] [address] Performed By: #### TSCR ####[facility] MA[facility] BLOOD BANKCLIA [id number] [place] [address] [place] AMERICARh Nom (Bld)Positive NormalWVUMedicine Barnesville Hospital on above:Order Comment: Specimen Type: BLOOD SPECIMENOrdering Facility: [facility] Address:[address] [place], [place] [address]Performed By: #### TSCR ####[facility] BLOOD BANKCLIA [id number] [place] [address] [place] AMERICATYPE AND SCREEN BWUUYLSSXQ24/28/2023 23:59NormalClevelKing's Daughters Medical Center [place] on above:Order Comment: Specimen Type: BLOOD SPECIMENOrdering Facility: [facility] Address:[address] [place] [address]Performed By: #### TSCR ####[facility] BLOOD BANKCLIA [id number] [place] [address] [place] AMERICABasic metabolic 2000 panelon 47-88-0336Dayur gap [Moles/Vol]9 mmol/LNormal9-18[facility] on above:Order Comment: Specimen Type: BLOOD SPECIMENOrdering Facility: [facility] Address:[address] [place] [address]Performed By: #### 05334-8 ####[facility] LABCLIA [id number] [place] [address] [place] Calcium [Mass/Vol]8.4 mg/dLLow8.5-10.2CMercer County Community Hospital on above:Order Comment: Specimen Type: BLOOD SPECIMENOrdering Facility: [facility] Address:[address] [place] [address]Performed By: #### 52360-3 ####[facility] LABCLIA [id number] [place] [address] [place] AMERICAChloride [Moles/Vol] 104 mmol/KWmigkr47-298UigxxrlsqWVUMedicine [facility]ville Hospital on above:Order Comment: Specimen Type: BLOOD SPECIMENOrdering Facility: [facility] Address:[address] [place] [address]Performed By: #### 58504-4 ####[facility] LABCLIA [id number] [place] [address] [place] AMERICACO2 [Moles/Vol]25 mmol/LNormal 22-30[facility] on above:Order Comment: Specimen Type: BLOOD SPECIMENOrdering Facility: [facility] Address:[address] [place], [place] [address]Performed By: #### [id number] ####[facility] LABCLIA [id number] [place] [address] [place] AMERICACreatinine [Mass/Vol]0.80 mg/dLNormal0.73-1.22[facility] on above:Order Comment: Specimen Type: BLOOD SPECIMENOrdering Facility: [facility] Address:[address] [place], [place] [address]Performed By: #### [id number] ####[facility] LABIA [id number] [place] [address] [place] STATES OF AMERICAESTIMATED GLOMERULAR FILTRATION FBTK880 mL/min/1.73m???Normal >=60[facility] on above:Order Comment: Specimen Type: BLOOD SPECIMENOrdering Facility: [facility] Address:[address] [place], [place] [address]Result Comment: Estimated Glomerular Filtration Rate (eGFR) is calculated using the 2020 CKD-EPI creatinine equation. This equation utilizes serum creatinine, sex, and age as parameters. The creatinine assay has traceable calibration to isotope dilution-mass spectrometry. Refer to KDIGO guidelines for clinical interpretation. In patients with unstable renal function, e.g. those with acute kidney injury, the eGFR may not accurately reflect actual GFR.Performed By: #### 02796-4 ####[facility] LABIA [id number] [place] [address] [place] AMERICAGlucose [Mass/Vol]121 mg/aGUmjx39-09GvepkncxeWVUMedicine [facility] Hospital on above:Order Comment: Specimen Type: BLOOD SPECIMENOrdering Facility: [facility] Address:[address] [place], [place] [address]Result Comment: The [place] Diabetes Association (ADA) provides guidance for cutoff values for fasting glucose and random glucose. The ADA defines fasting as no caloric intake for at least 8 hours. Fasting plasma glucose results between 100 to 125 mg/dL indicate increased risk for diabetes (prediabetes).Fasting plasma glucose results greater than or equal to 126 mg/dL meet the criteria for diagno sis of diabetes. In the absence of unequivocal hyperglycemia, results should be confirmed by repeattesting. In a patient with classic symptoms of hyperglycemia or hyperglycemic crisis, random plasmaglucose results greater than or equal to 200 mg/dL meet the criteria for diagnosis of diabetes.Reference: Standards of Medical Care in Diabetes 2016, [place] Diabetes Association. Diabetes Care. 2016.39(Suppl 1).Performed By: #### 08637-1 ####[facility] LABIA [id number] [place] [address] [place] AMERICAPotassium [Moles/Vol]4.7 mmol/LNormal3.7-5.1COhioHealth Southeastern Medical Center Comment on above:Order Comment: Specimen Type: BLOOD SPECIMENOrdering Facility: [facility] Address:[address] [place] [address] Performed By: #### 68813-2 ####[facility] LABIA [id number] [place] [address] [place] Sodium [Moles/Vol]138 mmol/NPrfjre854-809GeumldscmSumma Health Akron Campusment on above:Order Comment: Specimen Type: BLOOD SPECIMENOrdering Facility: [facility] Address:[address] [place], [place] [address]Performed By: #### 23271-4 ####[facility] LABIA [id number] [place] [address] [place] AMERICAUrea nitrogen [Mass/Vol]17 mg/dLNormal9-24[facility] on above:Order Comment: Specimen Type: BLOOD SPECIMENOrdering Facility: [facility] Address:[address] [place], [place] [address]Performed By: #### 45073-7 ####[facility] LABIA [id number] [place] [address] [place] AMERICACASE MANAGEMon 83-02-2853ZUVH MANAGEMNormalOhio State East HospitalCB W Auto Differential panel (Bld)on 09-17-9989Wsrqnplzz (Bld) [#/Vol]0.03 10*3/uLNormal<0.11COhioHealth Southeastern Medical CenterComment on above:Order Comment: Specimen Type: BLOOD SPECIMENOrdering Facility: [facility] Address:[address] [place], [place] [address]Performed By: #### 89767-9 ####[facility] LABCLIA [id number] [place] [address] [place] AMERICABasophils/100 WBC (Bld)0.3 %[facility] Comment on above:Order Comment: Specimen Type: BLOOD SPECIMENOrdering Facility: [facility] Address:[address] [place] [address] Performed By: #### 96679-9 ####[facility] LABCLIA [id number] [place] [address] [place] Differential cell count method Nom (Bld)AutoNormalCOhioHealth Southeastern Medical Center Comment on above:Order Comment: Specimen Type: BLOOD SPECIMENOrdering Facility: [facility] Address:[address] [place] [address] Performed By: #### 93543-7 ####[facility] LABCLIA [id number] [place] [address] [place] Eosinophils (Bld) [#/Vol]10*3/uLNormal<0.46Ohio State East HospitalComment on above:Order Comment: Specimen Type: BLOOD SPECIMENOrdering Facility: [facility] Address:[address] [place] [address]Performed By: #### 33515-5 ####[facility] LABCLIA [id number] [place] [address] [place] AMERICAEosinophils/100 WBC (Bld)0.1 %NormalWVUMedicine [facility] Hospital on above:Order Comment: Specimen Type: BLOOD SPECIMENOrdering Facility: [facility] Address:[address] [place], [place] [address]Performed By: #### 33390-3 ####[facility] [id number] [place] [address] [place] AMERICAErythrocyte distribution width (RBC) [Ratio]15.8 %High11.5-15.0[facility] on above:Order Comment: Specimen Type: BLOOD SPECIMENOrdering Facility: [facility] Address:[address] [place], [place] [address]Performed By: #### 61508-0 ####[facility] [id number] [address] STATES OF AMERICAHematocrit (Bld) [Volume fraction]22.9 %Low39.0-51.0[facility] on above: Order Comment: Specimen Type: BLOOD SPECIMENOrdering Facility: [facility] Address:[address] [place], [place] [address]Performed By: #### 23486-4 ####[facility] [id number] [address] STATES OF AMERICAHemoglobin (Bld) [Mass/Vol]7.3 g/dLLow13.0-17.0[facility] on above:Order Comment: Specimen Type: BLOOD SPECIMENOrdering Facility: [facility] Address:[address] [place], [place] [address]Performed By: #### 85439-8 ####[facility] [id number] [place] [address] [place] AMERICAImmature granulocytes (Bld) [#/Vol]0.09 10*3/uLNormal<0.10[facility] on above: Order Comment: Specimen Type: BLOOD SPECIMENOrdering Facility: [facility] Address:[address]Performed By: #### 76549-1 ####[facility] LABIA [id number] [place] [address] [place] AMERICAImmature granulocytes/100 WBC (Bld)0.9 %NormalWVUMedicine [facility]ville Hospital on above: Order Comment: Specimen Type: BLOOD SPECIMENOrdering Facility: [facility] Address:[address] [place], [place] [address]Performed By: #### 17577-8 ####[facility] LABIA [id number] [place] [address] [place] AMERICALymphocytes (Bld) [#/Vol]0.80 10*3/uLLow1.00-4.00[facility] on above:Order Comment: Specimen Type: BLOOD SPECIMENOrdering Facility: [facility] Address:[address] [place], [place] [address]Performed By: #### 74460-8 ####[facility] LABIA [id number] [place] [address] [place] AMERICALymphocytes/100 WBC (Bld)7.7 %NormalWVUMedicine Barnesville Hospital on above:Order Comment: Specimen Type: BLOOD SPECIMENOrdering Facility: [facility] Address:[address] [place], [place] [address]Performed By: #### 66700-8 ####[facility] LABIA [id number] [place] [address] [place] AMERICAMCH (RBC) [Entitic mass]27.4 pg Pckibl35.0-34.0[facility] on above:Order Comment: Specimen Type: BLOOD SPECIMENOrdering Facility: [facility] Address:[address] [place], [place] [address]Performed By: #### 74376-2 ####[facility] LABIA [id number] [address]ETMCHC (RBC) [Mass/Vol]31.9 g/dL Etqhqk93.5-36.0[facility] on above:Order Comment: Specimen Type: BLOOD SPECIMENOrdering Facility: [facility] Address:[address] [place], [place] [address]Performed By: #### 10551-3 ####[facility] LABIA [id number] [address]V (RBC) [Entitic vol]86.1 fL Wnqgqy93.0-100.0[facility] on above:Order Comment: Specimen Type: BLOOD SPECIMENOrdering Facility: [facility] Address:[address] [place], [place] [address]Performed By: #### 94686-6 ####[facility] LABIA [id number] [place] [address] [place] AMERICAMonocytes (Bld) [#/Vol]0.25 10*3/uLNormal<0.87[facility] on above:Order Comment: Specimen Type: BLOOD SPECIMENOrdering Facility: [facility] Address:[address] [place], [place] [address]Performed By: #### 72941-5 ####[facility] LABIA [id number] [address] STATES OF AMERICAMonocytes/100 WBC (Bld)2.4 % NormalWVUMedicine [facility]ville Hospital on above:Order Comment: Specimen Type: BLOOD SPECIMENOrdering Facility: [facility] Address:[address] [place] [address]Performed By: #### 11997-7 ####[facility] LABCLIA [id number] [place] [address] [place] AMERICANeutrophils (Bld) [#/Vol]9.18 10*3/uLHigh1.45-7.50 [facility] on above:Order Comment: Specimen Type: BLOOD SPECIMENOrdering Facility: [facility] Address:[address] [place], [place] [address]Performed By: #### 90967-9 ####[facility] LABIA [id number] [place] [address] [place] [facility] HOSPITALeutrophils/100 WBC (Bld)88.6 %NormalOhio State East Hospital Comment on above:Order Comment: Specimen Type: BLOOD SPECIMENOrdering Facility: [facility] Address:[address] [place], [place] [address] Performed By: #### 74257-7 ####[facility] LABIA [id number] [place] [address] [place] Nucleated RBC (Bld) [#/Vol]10*3/uLNormal<0.01[facility] on above:Order Comment: Specimen Type: BLOOD SPECIMENOrdering Facility: [facility] Address:[address] [place], [place] [address] Performed By: #### 42388-8 ####[facility]ITALIA [id number] [place] [address] [place] Nucleated RBC/100 WBC (Bld) [Ratio]0.0 /100 WBCNormalCOhioHealth Southeastern Medical Center Comment on above:Order Comment: Specimen Type: BLOOD SPECIMENOrdering Facility: [facility] Address:[address] [place] [address] Performed By: #### 45286-3 ####[facility] LABIA [id number] [place] [address] [place] Platelet mean volume (Bld) [Entitic vol]10.0 fLNormal9.0-12.7CMercer County Community Hospital on above:Order Comment: Specimen Type: BLOOD SPECIMENOrdering Facility: [facility] Address:[address] [place] [address]Performed By: #### 45401-9 ####[facility] LABIA [id number] [place] [address] [place] Platelets (Bld) [#/Vol]510 10*3/sCLkau804-127NrlbubxjvWVUMedicine [facility] on above:Order Comment: Specimen Type: BLOOD SPECIMENOrdering Facility: [facility] Address:[address] [place] [address] Performed By: #### 75270-3 ####[facility] LABIA [id number] [place] [address] [place] RBC (Bld) [#/Vol]2.66 10*6/uLLow4.20-6.00[facility] on above:Order Comment: Specimen Type: BLOOD SPECIMENOrdering Facility: [facility] Address:[address] [place], [place] [address]Performed By: #### 45624-5 ####[facility]ITALIA [id number] [address] STATES OF [facility]UM MEDICAL CENTERWBC (Bld) [#/Vol]10.36 10*3/uLNormal3.70-11.00[facility] on above:Order Comment: Specimen Type: BLOOD SPECIMENOrdering Facility: [facility] Address:[address] [place] [address]Performed By: #### 22284-1 ####[facility]ITALIA [id number] [address]CBC panel Auto (Bld)on 27-87-7365Fsmlyyorfir distribution width (RBC) [Ratio]15.9 %High11.5-15.0 [facility] on above:Order Comment: Specimen Type: BLOOD SPECIMENOrdering Facility: [facility] Address:[address] [place], [place] [address]Performed By: #### 20262-5 ####[facility] LABIA [id number] [place] [address] [place] AMERICAHematocrit (Bld) [Volume fraction]22.7 %Low39.0-51.0[facility] on above:Order Comment: Specimen Type: BLOOD SPECIMENOrdering Facility: [facility] Address:[address] [place], [place] [address]Performed By: #### 49485-5 ####[facility] LABIA [id number] [address] OF [facility] MEDICAL CENTERHemoglobin (Bld) [Mass/Vol]7.2 g/dLLow13.0-17.0[facility] on above:Order Comment: Specimen Type: BLOOD SPECIMENOrdering Facility: [facility] Address:[address] [place], [place] [address]Performed By: #### 38538-0 ####[facility] LABIA [id number] [place] [address] [place] MCH (RBC) [Entitic mass]27.4 xwItujhx90.0-34.0[facility] on above:Order Comment: Specimen Type: BLOOD SPECIMENOrdering Facility: [facility] Address:[address] [place] [address] Performed By: #### 78961-8 ####[facility] LABIA [id number] [place] [address] [place] MCHC (RBC) [Mass/Vol]31.7 g/yTCikotb17.5-36.0[facility] on above:Order Comment: Specimen Type: BLOOD SPECIMENOrdering Facility: [facility] Address:[address] [place], [place] [address] Performed By: #### 92097-2 ####[facility] LABIA [id number] [place] [address] [place] MCV (RBC) [Entitic vol]86.3 pQSheqyo68.0-100.0[facility] on above:Order Comment: Specimen Type: BLOOD SPECIMENOrdering Facility: [facility] Address:[address] [place], [place] [address] Performed By: #### 79691-5 ####[facility] LABIA [id number] [place] [address] [place] Nucleated RBC (Bld) [#/Vol]10*3/uLNormal<0.01[facility] on above:Order Comment: Specimen Type: BLOOD SPECIMENOrdering Facility: [facility] Address:[address] [place], [place] [address] Performed By: #### 47772-9 ####[facility] LABIA [id number] [place] [address] [place] Platelet mean volume (Bld) [Entitic vol]10.1 fLNormal9.0-12.7CMercer County Community Hospital on above:Order Comment: Specimen Type: BLOOD SPECIMENOrdering Facility: [facility] Address:[address] [place] [address]Performed By: #### 82510-9 ####[facility] LABIA [id number] [place] [address] [place] Platelets (Bld) [#/Vol]542 10*3/qGXzvj969-557LkmayjewiWVUMedicine [facility] Hospital on above:Order Comment: Specimen Type: BLOOD SPECIMENOrdering Facility: [facility] Address:[address] [place] [address] Performed By: #### 59199-5 ####[facility] LABIA [id number] [place] [address] [place] RBC (Bld) [#/Vol]2.63 10*6/uLLow4.20-6.00[facility] on above:Order Comment: Specimen Type: BLOOD SPECIMENOrdering Facility: [facility] Address:[address] [place], [place] [address]Performed By: #### 58473-4 ####[facility] LABCLIA [id number] [place] [address] [place] AMERICAWBC (Bld) [#/Vol]10.03 10*3/uLNormal3.70-11.00[facility] on above:Order Comment: Specimen Type: BLOOD SPECIMENOrdering Facility: [facility] Address:[address] [place], [place] [address]Performed By: #### 91361-2 ####[facility] LABCLIA [id number] [place] [address] [place] AMERICACNPNon 96-95-0583HRIL NormalOhio State East HospitalCONSULTon 84-50-2839HYJIVXUZpjrcfVyiizawht Clinic ClevelandCONSULT PROGon 60-96-1084MLRRTQH PROGNormalMercy Health [facility] PROGNormalOhio State East HospitalComprehensive metabolic 2000 panelon 50-56-2256Mrhefbn [Mass/Vol]3.1 g/dLLow3.9-4.9CMercer County Community Hospital on above:Order Comment: Specimen Type: BLOOD SPECIMENOrdering Facility: [facility] Address:[address] [place], [place] [address]Performed By: #### 42357-9 ####[facility] LABCLIA [id number] [place] [address] [place] ALP [Catalytic activity/Vol]134 U/RTxeo54-385TnuecqkyrWVUMedicine [facility]ville Hospital on above:Order Comment: Specimen Type: BLOOD SPECIMENOrdering Facility: [facility] Address:[address] [place] [address] Performed By: #### 06653-8 ####[facility] LABCLIA [id number] [place] [address] [place] ALT [Catalytic activity/Vol]130 U/IEree93-66HaussfypaWVUMedicine [facility] Hospital on above:Order Comment: Specimen Type: BLOOD SPECIMENOrdering Facility: [facility] Address:[address] [place], [place] [address]Performed By: #### 79162-1 ####[facility] LABCLIA [id number] [place] [address] [place] AMERICAAnion gap [Moles/Vol]9 mmol/LNormal9-18[facility] on above:Order Comment: Specimen Type: BLOOD SPECIMENOrdering Facility: [facility] Address:[address] [place], [place] [address]Performed By: #### 45084-5 ####[facility] LABCLIA [id number] [place] [address] [place] AMERICAAST [Catalytic activity/Vol]45 U/FLafq58-05VeuoyqzzpWVUMedicine [facility] Hospital on above:Order Comment: Specimen Type: BLOOD SPECIMENOrdering Facility: [facility] Address:[address] [place], [place] [address]Performed By: #### 33225-2 ####[facility] LABCLIA [id number] [place] [address] [place] AMERICABilirubin [Mass/Vol]0.3 mg/dLNormal0.2-1.3 [facility] on above:Order Comment: Specimen Type: BLOOD SPECIMENOrdering Facility: [facility] Address:[address] [place], [place] [address]Performed By: #### 99359-1 ####[facility] LABCLIA [id number] [place] [address] [place] AMERICACalcium [Mass/Vol]8.4 mg/dLLow8.5-10.2CMercer County Community Hospital on above:Order Comment: Specimen Type: BLOOD SPECIMENOrdering Facility: [facility] Address:[address] [place], [place] [address]Performed By: #### 11704-6 ####[facility] LABCLIA [id number] [place] [address] [place] Chloride [Moles/Vol]103 mmol/FGorjts34-200BrnckboheWVUMedicine [facility] Hospital on above:Order Comment: Specimen Type: BLOOD SPECIMENOrdering Facility: [facility] Address:[address] [place], [place] [address]Performed By: #### 72370-4 ####[facility] LABCLIA [id number] [place] [address] [place] AMERICACO2 [Moles/Vol]23 mmol/IMhrcng76-21GpwsrfuufWVUMedicine [facility] Hospital on above:Order Comment: Specimen Type: BLOOD SPECIMENOrdering Facility: [facility] Address:[address] [place], [place] [address]Performed By: #### 77392-5 ####[facility] LABIA [id number] [address] STATES OF AMERICACreatinine [Mass/Vol]0.85 mg/dL Normal0.73-1.22[facility] on above:Order Comment: Specimen Type: BLOOD SPECIMENOrdering Facility: [facility] Address:[address] [place], [place] [address]Performed By: #### 59857-0 ####[facility] LABIA [id number] [place] [address] [place] AMERICAESTIMATED GLOMERULAR FILTRATION QUDR313 mL/min/1.73m???Normal>=60[facility] on above: Order Comment: Specimen Type: BLOOD SPECIMENOrdering Facility: [facility] Address:[address] [place], [place] [address]Result Comment: Estimated Glomerular Filtration Rate (eGFR) is calculated using the 2020 CKD-EPI creatinine equation. This equation utilizes serum creatinine, sex, and age as parameters. The creatinine assay has traceable calibration to isotope dilution- mass spectrometry. Refer to KDIGO guidelines for clinical interpretation. In patients with unstable renal function, e.g. those with acute kidney injury, the eGFR may not accurately reflect actual GFR.Performed By: #### 52213-8 ####[facility] LABIA [id number] [place] [address] [place] AMERICAGlucose [Mass/Vol]166 mg/dLHigh 74-99[facility] on above:Order Comment: Specimen Type: BLOOD SPECIMENOrdering Facility: [facility] Address:[address] [place] [address]Result Comment: The [place] Diabetes Association (ADA) provides guidance for cutoff values for fasting glucose and random glucose. The ADA defines fasting as no caloric intake for at least 8 hours. F asting plasma glucose results between 100 to 125 mg/dL indicate increased risk for diabetes (prediabetes).Fasting plasma glucose results greater than or equal to 126 mg/dL meet the criteria for diagnosis of diabetes. In the absence of unequivocal hyperglycemia, results should be confirmed by repeattesting. In a patient with classic symptoms of hyperglycemia or hyperglycemic crisis, random plasmaglucose results greater than or equal to 200 mg/dL meet the criteria for diagnosis of diabetes.Reference: Standards of Medical Care in Diabetes 2016, [place] [employer]. Diabetes Care. 2016.39(Suppl 1).Performed By: #### 24877-4 ####[facility] LABIA [id number] [place] [address] [place] AMERICAPotassium [Moles/Vol] 5.3 mmol/LHigh3.7-5.1CMercer County Community Hospital on above:Order Comment: Specimen Type: BLOOD SPECIMENOrdering Facility: [facility] Address:[address] [place], [place] [address]Performed By: #### 35486-5 ####[facility] [id number] [place] [id number] [place] AMERICAProtein [Mass/Vol]6.3 g/dLNormal 6.3-8.0[facility] on above:Order Comment: Specimen Type: BLOOD SPECIMENOrdering Facility: [facility] Address:[address] [place] [address]Performed By: #### 29517-9 ####[facility] LABCLIA [id number] [place] [address] [place] AMERICASodium [Moles/Vol]135 mmol/SDdq809-406MccanjsnxWVUMedicine [facility] on above:Order Comment: Specimen Type: BLOOD SPECIMENOrdering Facility: [facility] Address:[address] [place] [address]Performed By: #### 84223-3 ####[facility] LABCLIA [id number] [place] [address] [place] Urea nitrogen [Mass/Vol]19 mg/dLNormal-[facility] on above:Order Comment: Specimen Type: BLOOD SPECIMENOrdering Facility: [facility] Address:[address] [place] [address]Performed By: #### 54967-3 ####[facility] LABCLIA [id number] [address] STATES OF AMERICANURSING PROGon 39-60-3006TQXQCHZ PROGNormalOhio State East HospitalTHERAPY NTon 02-04-2023 THERAPY NTNormalCTogus VA Medical Center POSTPROC EVALon 24-18-2195PDTI POSTPROC EVALNormalCleveland Hugh Chatham Memorial HospitalANES PRE-OPon 61-01-1538EMLN PRE-OP NormalOhio State East HospitalBRIEF OP NOTon 49-54-7263PHYCB OP NOTNormal [facility] HospitalBasic metabolic 2000 panelon 67-72-0041Qfomu gap [Moles/Vol]9 mmol/LNormal9-18[facility] on above:Order Comment: Specimen Type: BLOOD SPECIMENOrdering Facility: [facility] Address:[address] [place] [id number] By: #### 72065-7 ####[facility] LABCLIA [id number] [place] [id number] [place] AMERICACalcium [Mass/Vol]8.0 mg/dLLow8.5-10.2CMercer County Community Hospital on above:Order Comment: Specimen Type: BLOOD SPECIMENOrdering Facility: [facility] Address:[address] [place], [place] [address]Performed By: #### 96714-1 ####[facility] LABCLIA [id number] [place] [address] [place] AMERICAChloride [Moles/Vol]100 mmol/L Rsyykd58-297LebmtyyllWVUMedicine [facility] on above:Order Comment: Specimen Type: BLOOD SPECIMENOrdering Facility: [facility] Address:[address] [place], [place] [id number] By: #### 17369-0 ####[facility] LABCLIA [id number] [place] [address] [place] AMERICACO2 [Moles/Vol]24 mmol/NFewhga38-26DyotgxmetWVUMedicine [facility] on above:Order Comment: Specimen Type: BLOOD SPECIMENOrdering Facility: [facility] Address:[address] [place], [place] [id number] By: #### 24988-4 ####[facility] LABCLIA [id number] [place] [address] [place] AMERICACreatinine [Mass/Vol]0.82 mg/dLNormal0.73-1.22[facility] on above:Order Comment: Specimen Type: BLOOD SPECIMENOrdering Facility: [facility] Address:[address] [place], [place] [address]Performed By: #### 43154-3 ####[facility] LABCLIA [id number] [place] [address] [place] ESTIMATED GLOMERULAR FILTRATION DBNI090 mL/min/1.73m???Normal>=60[facility] on above:Order Comment: Specimen Type: BLOOD SPECIMENOrdering Facility: [facility] Address:[address] [id number] Comment: Estimated Glomerular Filtration Rate (eGFR) is calculated using the 2020 CKD-EPI creatinine equation. This equation utilizes serum creatinine, sex, and age as parameters. The creatinine assay has traceable calibration to isotope dilution-mass spectrometry. Refer to KDIGO guidelines for clinical interpretation. In patients with unstable renal function, e.g. those with acute kidney injury, the eGFR may not accurately reflect actual GFR.Performed By: #### 50866-9 ####[facility] LABIA [id number] [place] [address] [place] AMERICAGlucose [Mass/Vol]101 mg/oUHfnd62-64AmopceafbOhio State East HospitalComment on above:Order Comment: Specimen Type: BLOOD SPECIMENOrdering Facility: [facility] Address:[address] [place], [place] [address]Result Comment: The [place] Diabetes Association (ADA) provides guidance for cutoff values for fasting glucose and random glucose. The ADA defines fasting as no caloric intake for at least 8 hours. Fasting plasma glucose results between 100 to 125 mg/dL indicate increased risk for diabetes (prediabetes).Fasting plasma glucose results greater than or equal to 126 mg/dL meet the criteria for diagno sis of diabetes. In the absence of unequivocal hyperglycemia, results should be confirmed by repeattesting. In a patient with classic symptoms of hyperglycemia or hyperglycemic crisis, random plasmaglucose results greater than or equal to 200 mg/dL meet the criteria for diagnosis of diabetes.Reference: Standards of Medical Care in Diabetes 2016, [place] Diabetes Association. Diabetes Care. 2016.39(Suppl 1).Performed By: #### 78510-7 ####[facility] LABIA [id number] [place] [id number] [place] AMERICAPotassium [Moles/Vol]4.8 mmol/LNormal3.7-5.1COhioHealth Southeastern [facility] Center Comment on above:Order Comment: Specimen Type: BLOOD SPECIMENOrdering Facility: [facility] Address:[address] [id number] Performed By: #### 24421-7 ####[facility] LABIA [id number] [place] [address] [place] Sodium [Moles/Vol]133 mmol/KIie203-968IlefsooqeWVUMedicine [facility] on above:Order Comment: Specimen Type: BLOOD SPECIMENOrdering Facility: [facility] Address:[address] [place], [place] [address]Performed By: #### 16596-3 ####[facility] LABIA [id number] [place] [address] [place] AMERICAUrea nitrogen [Mass/Vol]16 mg/dLNormal9-24[facility] on above:Order Comment: Specimen Type: BLOOD SPECIMENOrdering Facility: [facility] Address:[address] [place], [place] [address]Performed By: #### 98782-8 ####[facility] HOSPITALIA [id number] [place] [address] [place] [facility] CENTERCB W Auto Differential panel (Bld)on 17-36-1566Cnzishpir (Bld) [#/Vol]0.19 10*3/uLHigh <0.11CMercer County Community Hospital on above:Order Comment: Specimen Type: BLOOD SPECIMENOrdering Facility: [facility] Address:[address] [place], [place] [address]Performed By: #### 07514-3 ####[facility] LABIA [id number] [place] [address] [place] AMERICABasophils/100 WBC (Bld)2.3 %NormalWVUMedicine Barnesville Hospital on above:Order Comment: Specimen Type: BLOOD SPECIMENOrdering Facility: [facility] Address:[address] [place], [place] [address]Performed By: #### 10575-3 ####[facility] LABIA [id number] [place] [address] [place] Differential cell count method Nom (Bld)AutoNormalClevelNovant Health New [facility] Comment on above:Order Comment: Specimen Type: BLOOD SPECIMENOrdering Facility: [facility] Address:[address] [place] [address] Performed By: #### 41287-6 ####[facility] LABCLIA [id number] [place] [address] [place] Eosinophils (Bld) [#/Vol]0.12 10*3/uLNormal<0.46[facility] Comment on above:Order Comment: Specimen Type: BLOOD SPECIMENOrdering Facility: [facility] Address:[address] [place] [address] Performed By: #### 75864-0 ####[facility] LABIA [id number] [place] [address] [place] Eosinophils/100 WBC (Bld)1.5 %NormalOhio State East HospitalComment on above: Order Comment: Specimen Type: BLOOD SPECIMENOrdering Facility: [facility] Address:[address] [place], [place] [address]Performed By: #### 59869-0 ####[facility] LABCLIA [id number] [place] [address] [place] AMERICAErythrocyte distribution width (RBC) [Ratio]16.0 %High11.5-15.0[facility] Comment on above:Order Comment: Specimen Type: BLOOD SPECIMENOrdering Facility: [facility] Address:[address] [place], [place] [address] Performed By: #### 31553-0 ####[facility] LABIA [id number] [place] [address] [place] Hematocrit (Bld) [Volume fraction]29.7 %Low39.0-51.0[facility] Comment on above:Order Comment: Specimen Type: BLOOD SPECIMENOrdering Facility: [facility] Address:[address] [place], [place] [address] Performed By: #### 72211-7 ####[facility] LABCLIA [id number] [place] [address] [place] Hemoglobin (Bld) [Mass/Vol]9.0 g/dLLow13.0-17.0[facility] on above:Order Comment: Specimen Type: BLOOD SPECIMENOrdering Facility: [facility] Address:[address] [place] [address] Performed By: #### 11342-6 ####[facility] LABIA [id number] [place] [address] [place] Immature granulocytes (Bld) [#/Vol]0.07 10*3/uLNormal<0.10[facility]ron Campusment on above:Order Comment: Specimen Type: BLOOD SPECIMENOrdering Facility: [facility] Address:[address] [place], [place] [address]Performed By: #### 41664-3 ####[facility] LABIA [id number] [place] [address] [place] Immature granulocytes/100 WBC (Bld)0.8 %NormalWVUMedicine [facility] on above:Order Comment: Specimen Type: BLOOD SPECIMENOrdering Facility: [facility] Address:[address] [place] [address] Performed By: #### 60934-3 ####[facility] LABIA [id number] [place] [address] [place] Lymphocytes (Bld) [#/Vol]1.34 10*3/uLNormal1.00-4.00[facility] Comment on above:Order Comment: Specimen Type: BLOOD SPECIMENOrdering Facility: [facility] Address:[address] [place], [place] [address] Performed By: #### 80760-1 ####[facility] LABIA [id number] [place] [address] [place] Lymphocytes/100 WBC (Bld)16.2 %NormalWVUMedicine [facility]ville Hospital on above: Order Comment: Specimen Type: BLOOD SPECIMENOrdering Facility: [facility] Address:[address] [place], [place] [address]Performed By: #### 35197-0 ####[facility] LABIA [id number] [address] (RBC) [Entitic mass]27.0 oxHsyedq35.0-34.0[facility] on above:Order Comment: Specimen Type: BLOOD SPECIMENOrdering Facility: [facility] Address:[address] [place], [place] [address]Performed By: #### 10091-6 ####[facility] LABIA [id number] [address] STREETMCHC (RBC) [Mass/Vol] 30.3 g/dLLow30.5-36.0[facility] on above:Order Comment: Specimen Type: BLOOD SPECIMENOrdering Facility: [facility] Address:[address] [place], [place] [address]Performed By: #### 39474-6 ####[facility] LABIA [id number] [address] (RBC) [Entitic vol]89.2 fL Ujfpys63.0-100.0[facility] on above:Order Comment: Specimen Type: BLOOD SPECIMENOrdering Facility: [facility] Address:[address] [place], [place] [address]Performed By: #### 07589-6 ####[facility] LABIA [id number] [address]ETMonocytes (Bld) [#/Vol]0.54 10*3/uLNormal<0.87[facility] on above:Order Comment: Specimen Type: BLOOD SPECIMENOrdering Facility: [facility] Address:[address] [place] [address]Performed By: #### 24735-6 ####[facility] LABCLIA [id number] [place] [address] [place] AMERICAMonocytes/100 WBC (Bld)6.5 % NormalWVUMedicine [facility] on above:Order Comment: Specimen Type: BLOOD SPECIMENOrdering Facility: [facility] Address:[address] [place], [place] [address]Performed By: #### 32018-8 ####[facility] LABCLIA [id number] [place] [address] [place] AMERICANeutrophils (Bld) [#/Vol]5.99 10*3/uLNormal1.45-7.50 [facility] on above:Order Comment: Specimen Type: BLOOD SPECIMENOrdering Facility: [facility] Address:[address] [place], [place] [address]Performed By: #### 27397-7 ####[facility] LABCLIA [id number] [place] [address] [place] AMERICANeutrophils/100 WBC (Bld)72.7 %NormalOhio State East Hospital Comment on above:Order Comment: Specimen Type: BLOOD SPECIMENOrdering Facility: [facility] Address:[address] [place] [address] Performed By: #### 71295-2 ####[facility] LABCLIA [id number] [place] [address] [place] Nucleated RBC (Bld) [#/Vol]10*3/uLNormal<0.01[facility] on above:Order Comment: Specimen Type: BLOOD SPECIMENOrdering Facility: [facility] Address:[address] [place] [address] Performed By: #### 73809-0 ####[facility] LABCLIA [id number] [place] [address] [place] Nucleated RBC/100 WBC (Bld) [Ratio]0.0 /100 WBCNormalCOhioHealth Southeastern Medical Center Comment on above:Order Comment: Specimen Type: BLOOD SPECIMENOrdering Facility: [facility] Address:[address] [place] [address] Performed By: #### 72631-5 ####[facility] LABCLIA [id number] [place] [address] [place] Platelet mean volume (Bld) [Entitic vol]9.6 fLNormal9.0-12.7CMercer County Community Hospital on above:Order Comment: Specimen Type: BLOOD SPECIMENOrdering Facility: [facility] Address:[address] [place], [place] [address]Performed By: #### 96329-7 ####[facility] LABIA [id number] [place] [address] [place] Platelets (Bld) [#/Vol]560 10*3/yGLjqb739-630KdnperbmhWVUMedicine [facility] on above:Order Comment: Specimen Type: BLOOD SPECIMENOrdering Facility: [facility] Address:[address] [place] [address] Performed By: #### 27828-3 ####[facility] LABIA [id number] [place] [address] [place] RBC (Bld) [#/Vol]3.33 10*6/uLLow4.20-6.00[facility] on above:Order Comment: Specimen Type: BLOOD SPECIMENOrdering Facility: [facility] Address:[address] [place] [address]Performed By: #### 56234-3 ####[facility] LABIA [id number] [place] [address] [place] AMERICAWBC (Bld) [#/Vol]8.25 10*3/uLNormal3.70-11.00[facility] ClevelandComment on above:Order Comment: Specimen Type: BLOOD SPECIMENOrdering Facility: [facility] Address:[address] [place], [place] [address]Performed By: #### 72378-2 ####[facility] LABCLIA [id number] [place] [address] [place] AMERICACONSULT PROGon 55-83-2579HKDDYIB PROGNormalOhio State East HospitalComprehensive metabolic 2000 panelon 55-46-2085Jzfehyx [Mass/Vol]2.4 g/dLLow3.9-4.9CMercer County Community Hospital on above:Order Comment: Specimen Type: BLOOD SPECIMENOrdering Facility: [facility] Address:[address] [place] [address] Performed By: #### 28385-6 ####[facility] LABCLIA [id number] [place] [address] [place] ALP [Catalytic activity/Vol]153 U/XAgnl99-584QosgmmtqnWVUMedicine [facility] on above:Order Comment: Specimen Type: BLOOD SPECIMENOrdering Facility: [facility] Address:[address] [place] [address] Performed By: #### 53233-8 ####[facility] LABCLIA [id number] [place] [address] [place] ALT [Catalytic activity/Vol]221 U/LJtcq35-39DewfxlofsWVUMedicine [facility] on above:Order Comment: Specimen Type: BLOOD SPECIMENOrdering Facility: [facility] Address:[address] [place] [address]Performed By: #### 03384-6 ####[facility] LABIA [id number] [place] [address] [place] AMERICAAnion gap [Moles/Vol] 15 mmol/LNormal9-18[facility] on above:Order Comment: Specimen Type: BLOOD SPECIMENOrdering Facility: [facility] Address:[address] [place], [place] [address]Performed By: #### 20649-1 ####[facility] LABCLIA [id number] [place] [address] [place] AMERICAAST [Catalytic activity/Vol]120 U/CWgjr02-29UgywxwiecWVUMedicine [facility] Hospital on above:Order Comment: Specimen Type: BLOOD SPECIMENOrdering Facility: [facility] Address:[address] [place] [address]Performed By: #### 23454-0 ####[facility] LABCLIA [id number] [place] [address] [place] AMERICABilirubin [Mass/Vol]0.2 mg/dLNormal0.2-1.3 [facility] on above:Order Comment: Specimen Type: BLOOD SPECIMENOrdering Facility: [facility] Address:[address] [place] [address]Performed By: #### 09337-3 ####[facility] LABIA [id number] [address] STATES OF AMERICACalcium [Mass/Vol]8.1 mg/dLLow8.5-10.2CMercer County Community Hospital on above:Order Comment: Specimen Type: BLOOD SPECIMENOrdering Facility: [facility] Address:[address] [place] [address]Performed By: #### 63961-8 ####[facility] LABIA [id number] [place] [address] [place] Chloride [Moles/Vol]100 mmol/LNonsgr01-555GycluejafWVUMedicine Barnesville Hospital on above:Order Comment: Specimen Type: BLOOD SPECIMENOrdering Facility: [facility] Address:[address] [place] [address]Performed By: #### 90675-1 ####[facility] LABCLIA [id number] [place] [address] [place] AMERICACO2 [Moles/Vol]17 mmol/DUtf86-41LxvdzouvqWVUMedicine [facility] on above:Order Comment: Specimen Type: BLOOD SPECIMENOrdering Facility: [facility] Address:[address] [place], [place] [address]Performed By: #### 34185-4 ####[facility] LABCLIA [id number] [place] [address] [place] AMERICACreatinine [Mass/Vol]0.88 mg/dLNormal0.73-1.22 [facility] on above:Order Comment: Specimen Type: BLOOD SPECIMENOrdering Facility: [facility] Address:[address] [place], [place] [address]Performed By: #### 37015-5 ####[facility] LABIA [id number] [place] [address] [place] AMERICAESTIMATED GLOMERULAR FILTRATION RATE99 mL/min/1.73m???Normal >=60[facility] on above:Order Comment: Specimen Type: BLOOD SPECIMENOrdering Facility: [facility] Address:[address] [place], [place] [address]Result Comment: Estimated Glomerular Filtration Rate (eGFR) is calculated using the 2020 CKD-EPI creatinine equation. This equation utilizes serum creatinine, sex, and age as parameters. The creatinine assay has traceable calibration to isotope dilution-mass spectrometry. Refer to KDIGO guidelines for clinical interpretation. In patients with unstable renal function, e.g. those with acute kidney injury, the eGFR may not accurately reflect actual GFR.Performed By: #### 60943-2 ####[facility] LABIA [id number] [place] [address] [place] AMERICAGlucose [Mass/Vol]104 mg/hVWhol26-01SvimzxphjWVUMedicine [facility] Hospital on above:Order Comment: Specimen Type: BLOOD SPECIMENOrdering Facility: [facility] Address:[address] [place], [place] [address]Result Comment: The [place] Diabetes Association (ADA) provides guidance for cutoff values for fasting glucose and random glucose. The ADA defines fasting as no caloric intake for at least 8 hours. Fasting plasma glucose results between 100 to 125 mg/dL indicate increased risk for diabetes (prediabetes).Fasting plasma glucose results greater than or equal to 126 mg/dL meet the criteria for diagno sis of diabetes. In the absence of unequivocal hyperglycemia, results should be confirmed by repeattesting. In a patient with classic symptoms of hyperglycemia or hyperglycemic crisis, random plasmaglucose results greater than or equal to 200 mg/dL meet the criteria for diagnosis of diabetes.Reference: Standards of Medical Care in Diabetes 2016, [place] [employer]. Diabetes Care. 2016.39(Suppl 1).Performed By: #### 95572-7 ####[facility] LABIA [id number] [place] [address] [place] AMERICAPotassium [Moles/Vol]5.7 mmol/LHigh3.7-5.1COhioHealth Southeastern Medical Center Comment on above:Order Comment: Specimen Type: BLOOD SPECIMENOrdering Facility: [facility] Address:[address] [place] [address] Performed By: #### 17900-2 ####[facility] [id number] [place] [address] [place] Protein [Mass/Vol]6.2 g/dLLow6.3-8.0[facility] on above: Order Comment: Specimen Type: BLOOD SPECIMENOrdering Facility: [facility] Address:[address] [place], [place] [address]Performed By: #### 36606-0 ####[facility] LABIA [id number] [place] [address] [place] AMERICASodium [Moles/Vol]132 mmol/WZkn662-561BfnzhychjWVUMedicine Barnesville Hospital on above:Order Comment: Specimen Type: BLOOD SPECIMENOrdering Facility: [facility] Address:[address] [place] [address]Performed By: #### 71086-3 ####[facility] LABIA [id number] [place] [id number] [place] AMERICAUrea nitrogen [Mass/Vol]18 mg/dL Normal9-24[facility] on above:Order Comment: Specimen Type: BLOOD SPECIMENOrdering Facility: [facility] Address:[address] [place] [address]Performed By: #### 62478-0 ####[facility] LABCLIA [id number] [place] [address] [place] AMERICANUTRITIONon 51-24-2941SJEGSNHYXQigtvpKdssagqve Clinic ClevelandOPERATIVE NOon 31-42-9431GEJIBNHCW NONormalOhio State East HospitalPT EDon 60-79-7939JO EDNormalCFulton County Health CenterOUS BLOOD GASES WITH IONIZED MAGNESIUMon 28-72-4758NBDN DEFICIT, VENOUS-1 mmol/LNormal-2-0 [facility] on above:Order Comment: Specimen Type: VENOUS BLOOD SPECIMENOrdering Facility: [facility] Address: [place] [address]Performed By: #### VALLMG ####[facility] LABCLIA [id number] [place] [address] [place] AMERICACalcium.ionized (Bld) [Mass/Vol]1.15 mmol/LNormal 1.08-1.30[facility] on above:Order Comment: Specimen Type: VENOUS BLOOD SPECIMENOrdering Facility: [facility] Ad dress: [place] [address]Performed By: #### VALLMG ####[facility] LABCLIA [id number] [place] [address] [place] AMERICACalcium.ionized adjusted to pH 7.4 (BldA) [Moles/Vol]1.07 mmol/LLow1.08-1.30[facility] on above:Order Comment: Specimen Type: VENOUS BLOOD SPECIMENOrdering Facility: [facility] Address: [address] [place] [address] [place] [address] Performed By: #### VALLMG ####[facility] LABCLIA [id number] [place] [address] [place] Carboxyhemoglobin (BldV) [Mass fraction]1.6 %Normal0.0-2.0[facility] on above:Order Comment: Specimen Type: VENOUS BLOOD SPECIMENOrdering Facility: [facility] Address: [address] [place], [place] [address]Result Comment: Carboxyhemoglobin Reference Range for Smokers: 2.0-8.0%Performed By: #### VALLMG ####[facility] LABIA [id number] [place] [address] [place] AMERICACO2 (BldV) [Partial pressure]57 mm[Hg]Ixhz74-93InggzireyOhio State East Hospital Comment on above:Order Comment: Specimen Type: VENOUS BLOOD SPECIMENOrdering Facility: [facility] Address: [address] [place], [place] [address]Performed By: #### VALLMG ####[facility] LABIA [id number] [place] [address] [place] CO2 [Moles/Vol]27 mmol/BZwszxb54-85ZummzdcjmWVUMedicine Barnesville Hospital on above: Order Comment: Specimen Type: VENOUS BLOOD SPECIMENOrdering Facility: [facility] Address: [address] [place], [place] [address]Performed By: #### VALLMG ####[facility] LABIA [id number] [place] [address] [place] AMERICACO2 adjusted to patient's actual temperature (BldV) [Partial pressure]57 voVwLhch44-13EenrogdxnOhio State East HospitalComascension st. john hospital on above:Order Comment: Specimen Type: VENOUS BLOOD SPECIMENOrdering Facility: [facility] Address: [address] [place], [place] [address]Performed By: #### VALLMG ####[facility] LABIA [id number] [place] [address] [place] AMERICAGlucose [Mass/Vol]119 mg/xTBcyc41-497YaickuklzOhio State East Hospital Comment on above:Order Comment: Specimen Type: VENOUS BLOOD SPECIMENOrdering Facility: [facility] Address: [address] [place], [place] [address]Performed By: #### VALLMG ####[facility] LABIA [id number] [place] [address] [place] HCO3 (Bld) [Moles/Vol]26 mmol/SLmyywy99-46WunquovgnOhio State East HospitalComascension st. john hospital on above:Order Comment: Specimen Type: VENOUS BLOOD SPECIMENOrdering Facility: [facility] Address: [address] [place], [place] [address] Performed By: #### VALLMG ####[facility] LABIA [id number] [place] [address] [place] Hematocrit (Bld) [Volume fraction]23.6 %Low39.0-51.0[facility] Comment on above:Order Comment: Specimen Type: VENOUS BLOOD SPECIMENOrdering Facility: [facility] Address: [address] [place], [place] [address]Performed By: #### VALLMG ####[facility] LABIA [id number] [place] [address] [place] Hemoglobin (Bld) [Mass/Vol]7.6 g/dLLow13.0-17.0[facility] HospitalComascension [facility] on above:Order Comment: Specimen Type: VENOUS BLOOD SPECIMENOrdering Facility: [facility] Address: [address] [place], [place] [address] Performed By: #### VALLMG ####[facility] LABIA [id number] [place] [address] [place] Lactate [Moles/Vol]0.7 mmol/LNormal0.5-2.2COhioHealth Southeastern Medical CenterComascension st. john hospital on above:Order Comment: Specimen Type: VENOUS BLOOD SPECIMENOrdering Facility: [facility] Address: [address] [place], [place] [address] Performed By: #### VALLMG ####[facility] LABIA [id number] [place] [address] [place] Magnesium [Moles/Vol]0.55 mmol/LNormal0.45-0.60[facility] HospitalComment on above:Order Comment: Specimen Type: VENOUS BLOOD SPECIMENOrdering Facility: [facility] Address: [address] [place] [address] Performed By: #### VALLMG ####[facility] LABVERM[facility] [id number] [place] [address] [place] Methemoglobin (Bld) [Mass fraction]1.8 %High0.0-1.5COhioHealth Southeastern Medical Center Comment on above:Order Comment: Specimen Type: VENOUS BLOOD SPECIMENOrdering Facility: [facility] Address: [address] [place] [address]Performed By: #### VALLMG ####[facility] [id number] [place] [address] [place] Oxygen (BldV) [Partial pressure]99 mm[Hg][id number] State East Hospital Comment on above:Order Comment: Specimen Type: VENOUS BLOOD SPECIMENOrdering Facility: [facility] Address: [address] [place] [address]Performed By: #### VALLMG ####[facility] [id number] [place] [address] [place] Oxygen adjusted to patient's actual temperature (BldV) [Partial pressure]99 mmHg Xvun15-55HejovtbxaOhio State East HospitalComment on above:Order Comment: Specimen Type: VENOUS BLOOD SPECIMENOrdering Facility: [facility] Ad dress: [address] [place] [address]Performed By: #### VALLMG ####[facility] [id number] [place] [address] [place] AMERICAOxygen saturation in Venous blood 97 %Tlgb79-18JpcxzplapWVUMedicine Barnesville Hospital on above:Order Comment: Specimen Type: VENOUS BLOOD SPECIMENOrdering Facility: [facility] Ad dress: [address] [place] [address]Performed By: #### VALLMG ####[facility] LABCLIA [id number] [address] STATES OF AMERICAOxyhemoglobin (BldV) [Mass fraction]94 %Ymkq74-03XpwufdqzvWVUMedicine Barnesville Hospital on above:Order Comment: Specimen Type: VENOUS BLOOD SPECIMENOrdering Facility: [facility] Address: [address] [place], [place] [address]Performed By: #### VALLMG ####[facility] LABIA [id number] [place] [address] [place] AMERICApH (BldV)7.27 [pH]Low7.32-7.42 [facility] on above:Order Comment: Specimen Type: VENOUS BLOOD SPECIMENOrdering Facility: [facility] Address: [address] [place], [place] [address]Performed By: #### VALLMG ####[facility] LABIA [id number] [place] [address] [place] AMERICApH adjusted to patient's actual temperature (BldV) 7.27Low7.32-7.42[facility] on above:Order Comment: Specimen Type: VENOUS BLOOD SPECIMENOrdering Facility: [facility] Address: [address] [place], [place] [address]Performed By: #### VALLMG ####[facility] LABIA [id number] [place] [address] [place] AMERICAPotassium [Moles/Vol]4.7 mmol/L Normal3.5-5.0[facility] on above:Order Comment: Specimen Type: VENOUS BLOOD SPECIMENOrdering Facility: [facility] Ad dress: [address] [place] [address]Performed By: #### VALLMG ####[facility] LABIA [id number] [place] [address] [place] AMERICASodium [Moles/Vol]135 mmol/LLow 136-144[facility] on above:Order Comment: Specimen Type: VENOUS BLOOD SPECIMENOrdering Facility: [facility] Address: [address] [place], [place] [address]Performed By: #### VALLMG ####[facility] LABIA [id number] [place] [address] [place] AMERICACB W Auto Differential panel (Bld)on 02-02-2023 Basophils (Bld) [#/Vol]0.11 10*3/uLHigh<0.11CMercer County Community [facility] on above:Order Comment: Specimen Type: BLOOD SPECIMENOrdering Facility: [facility] Address:[address] [place], [place] [address]Performed By: #### 58970-1 ####[facility]ITAL[facility] [id number] [place] [address] [place] AMERICABasophils/100 WBC (Bld)2.2 %NormalWVUMedicine Barnesville Hospital on above:Order Comment: Specimen Type: BLOOD SPECIMENOrdering Facility: [facility] Address:[address] [place], [place] [address]Performed By: #### 67020-0 ####[facility] LABIA [id number] [place] [address] [place] AMERICADifferential cell count method Nom (Bld)AutoNormalCMercer County Community Hospital on above:Order Comment: Specimen Type: BLOOD SPECIMENOrdering Facility: [facility] Address:[address] [place], [place] [address]Performed By: #### 54940-7 ####[facility] LABIA [id number] [place] [address] [place] AMERICAEosinophils (Bld) [#/Vol]0.10 10*3/uLNormal<0.46[facility] on above:Order Comment: Specimen Type: BLOOD SPECIMENOrdering Facility: [facility] Address:[address] [place], [place] [address]Performed By: #### 26492-9 ####[facility] LABCLIA [id number] [place] [address] [place] AMERICAEosinophils/100 WBC (Bld)2.0 % NormalWVUMedicine Barnesville Hospital on above:Order Comment: Specimen Type: BLOOD SPECIMENOrdering Facility: [facility] Address:[address] [place], [place] [address]Performed By: #### 66339-7 ####[facility] LABIA [id number] [place] [address] [place] AMERICAErythrocyte distribution width (RBC) [Ratio]16.3 %High 11.5-15.0[facility] on above:Order Comment: Specimen Type: BLOOD SPECIMENOrdering Facility: [facility] Address:[address] [place], [place] [address]Performed By: #### 53484-0 ####[facility] LABIA [id number] [place] [address] [place] AMERICAHematocrit (Bld) [Volume fraction]27.0 %Low 39.0-51.0[facility] on above:Order Comment: Specimen Type: BLOOD SPECIMENOrdering Facility: [facility] Address:[address] [place], [place] [address]Performed By: #### 30494-2 ####[facility] LABIA [id number] [place] [address] [place] AMERICAHemoglobin (Bld) [Mass/Vol]8.3 g/dLLow13.0-17.0 [facility] on above:Order Comment: Specimen Type: BLOOD SPECIMENOrdering Facility: [facility] Address:[address] [place], [place] [address]Performed By: #### 38848-9 ####[facility] LABCLIA [id number] [place] [address] [place] AMERICAImmature granulocytes (Bld) [#/Vol]0.03 10*3/uLNormal<0.10 [facility] HospitalComment on above:Order Comment: Specimen Type: BLOOD SPECIMENOrdering Facility: [facility] Address:[address] [place], [place] [address]Performed By: #### 30700-4 ####[facility] LABCLIA [id number] [place] [address] [place] AMERICAImmature granulocytes/100 WBC (Bld)0.6 %[facility] on above:Order Comment: Specimen Type: BLOOD SPECIMENOrdering Facility: [facility] Address:[address] [place], [place] [address]Performed By: #### 17567-7 ####[facility] LABCLIA [id number] [place] [address] [place] Lymphocytes (Bld) [#/Vol]1.36 10*3/uLNormal1.00-4.00[facility] Comment on above:Order Comment: Specimen Type: BLOOD SPECIMENOrdering Facility: [facility] Address:[address] [place], [place] [address] Performed By: #### 58089-5 ####[facility] LABCLIA [id number] [place] [address] [place] Lymphocytes/100 WBC (Bld)27.0 %[facility] on above: Order Comment: Specimen Type: BLOOD SPECIMENOrdering Facility: [facility] Address:[address] [place], [place] [address]Performed By: #### 48183-3 ####[facility] LABCLIA [id number] [address] (RBC) [Entitic mass]26.9 ynXghlif56.0-34.0[facility] on above:Order Comment: Specimen Type: BLOOD SPECIMENOrdering Facility: [facility] Address:[address] [place], [place] [address]Performed By: #### 55039-7 ####[facility] LABIA [id number] [address] (RBC) [Mass/Vol] 30.7 g/vYIpkcen06.5-36.0[facility] on above:Order Comment: Specimen Type: BLOOD SPECIMENOrdering Facility: [facility] Address:[address] [place], [place] [address]Performed By: #### 63773-9 ####[facility] [id number] [address] (RBC) [Entitic vol]87.4 pYTwnayv32.0-100.0[facility] on above:Order Comment: Specimen Type: BLOOD SPECIMENOrdering Facility: [facility] Address:[address] [place], [place] [address]Performed By: #### 52986-1 ####[facility] LABVERM[facility] [id number] [place] [address] [place] AMERICAMonocytes (Bld) [#/Vol]0.32 10*3/uLNormal<0.87[facility] on above:Order Comment: Specimen Type: BLOOD SPECIMENOrdering Facility: [facility] Address:[address] [place], [place] [address]Performed By: #### 82377-2 ####[facility] LABVERMONT [facility] [id number] [place] [address] [place] AMERICAMonocytes/100 WBC (Bld)6.3 %NormalWVUMedicine Barnesville Hospital on above:Order Comment: Specimen Type: BLOOD SPECIMENOrdering Facility: [facility] Address:[address] [place], [place] [address]Performed By: #### 90500-2 ####[facility] LABCLIA [id number] [place] [address] [place] AMERICANeutrophils (Bld) [#/Vol]3.12 10*3/uLNormal1.45-7.50[facility] on above:Order Comment: Specimen Type: BLOOD SPECIMENOrdering Facility: [facility] Address:[address] [place], [place] [address]Performed By: #### 88230-0 ####[facility] LABCLIA [id number] [place] [address] [place] AMERICANeutrophils/100 WBC (Bld)61.9 % NormalWVUMedicine Barnesville Hospital on above:Order Comment: Specimen Type: BLOOD SPECIMENOrdering Facility: [facility] Address:[address] [place], [place] [address]Performed By: #### 22273-5 ####[facility] LABCLIA [id number] [place] [address] [place] AMERICANucleated RBC (Bld) [#/Vol]10*3/uLNormal<0.01[facility] on above:Order Comment: Specimen Type: BLOOD SPECIMENOrdering Facility: [facility] Address:[address] [place], [place] [address]Performed By: #### 22886-7 ####[facility] LABCLIA [id number] [place] [address] [place] AMERICANucleated RBC/100 WBC (Bld) [Ratio]0.0 /100 WBCNormalCMercer County Community Hospital on above:Order Comment: Specimen Type: BLOOD SPECIMENOrdering Facility: [facility] Address:[address] [place] [address]Performed By: #### 28357-8 ####[facility] LABCLIA [id number] [place] [address] [facility] OF AMERICAPlatelet mean volume (Bld) [Entitic vol]10.1 fLNormal9.0-12.7 [facility] on above:Order Comment: Specimen Type: BLOOD SPECIMENOrdering Facility: [facility] Address:[address] [place] [address]Performed By: #### 95038-2 ####[facility] LABCLIA [id number] [place] [address] [place] AMERICAPlatelets (Bld) [#/Vol]465 10*3/nRFvzs825-673NuqpcxnklWVUMedicine [facility]ville Hospital on above:Order Comment: Specimen Type: BLOOD SPECIMENOrdering Facility: [facility] Address:[address] [place] [address]Performed By: #### 78103-2 ####[facility] LABCLIA [id number] [place] [address] [place] RBC (Bld) [#/Vol]3.09 10*6/uLLow4.20-6.00[facility] on above:Order Comment: Specimen Type: BLOOD SPECIMENOrdering Facility: [facility] Address:[address] [place] [id number] By: #### 85700-7 ####[facility] LABCLIA [id number] [place] [address] [place] AMERICAWBC (Bld) [#/Vol]5.04 10*3/uLNormal3.70-11.00[facility] on above:Order Comment: Specimen Type: BLOOD SPECIMENOrdering Facility: [facility] Address:[address] [place] [address]Performed By: #### 44914-1 ####[facility] LABCLIA [id number] [address] [address] [place] AMERICACONSULT PROGon 91-07-5468UUSSOFQ PROGNormalOhio State East HospitalCONLT PROGNormalOhio State East Hospital Comprehensive metabolic 2000 panelon 78-80-1863Nlaqmfe [Mass/Vol]2.4 g/dLLow 3.9-4.9CMercer County Community Hospital on above:Order Comment: Specimen Type: BLOOD SPECIMENOrdering Facility: [facility] Address:[address] [place], [place] [address]Performed By: #### 13395-0 ####[facility] LABIA [id number] [place] [address] [place] AMERICAALP [Catalytic activity/Vol]152 U/LRfsm09-455MhvropstcWVUMedicine Barnesville Hospital on above:Order Comment: Specimen Type: BLOOD SPECIMENOrdering Facility: [facility] Address:[address] [place], [place] [address]Performed By: #### 67055-0 ####[facility] LABIA [id number] [place] [address] [place] AMERICAALT [Catalytic activity/Vol]299 U/ELeyk26-73UjrnnjxaxWVUMedicine [facility] Hospital on above:Order Comment: Specimen Type: BLOOD SPECIMENOrdering Facility: [facility] Address:[address] [place] [address]Performed By: #### 26008-1 ####[facility] LABIA [id number] [place] [id number] [place] Anion gap [Moles/Vol]9 mmol/LNormal9-18[facility] on above:Order Comment: Specimen Type: BLOOD SPECIMENOrdering Facility: [facility] Address:[address] [place] [address]Performed By: #### 93877-2 ####[facility] LABIA [id number] [place] [address] [place] AMERICAAST [Catalytic activity/Vol]264 U/DMirh04-84MktoclkwfWVUMedicine [facility] Hospital on above:Order Comment: Specimen Type: BLOOD SPECIMENOrdering Facility: [facility] Address:[address] [place], [place] [address]Performed By: #### 14619-4 ####[facility] LABCLIA [id number] [place] [address] [place] AMERICABilirubin [Mass/Vol] 0.2 mg/dLNormal0.2-1.3CMercer County Community Hospital on above:Order Comment: Specimen Type: BLOOD SPECIMENOrdering Facility: [facility] Address:[address] [place], [place] [address]Performed By: #### 63001-0 ####[facility] LABCLIA [id number] [place] [address] [place] AMERICACalcium [Mass/Vol]7.8 mg/dLLow 8.5-10.2CMercer County Community Hospital on above:Order Comment: Specimen Type: BLOOD SPECIMENOrdering Facility: [facility] Address:[address] [place], [place] [address]Performed By: #### 11891-5 ####[facility] LABCLIA [id number] [place] [address] [place] AMERICAChloride [Moles/Vol]103 mmol/RMhkryl36-992 [facility] on above:Order Comment: Specimen Type: BLOOD SPECIMENOrdering Facility: [facility] Address:[address] [place] [address]Performed By: #### 96594-8 ####[facility] LABCLIA [id number] [place] [address] [place] AMERICACO2 [Moles/Vol]24 mmol/IQjtqwl13-83QrooaznbmOhio State East Hospital Comment on above:Order Comment: Specimen Type: BLOOD SPECIMENOrdering Facility: [facility] Address:[address] [place], [place] [address] Performed By: #### 48742-8 ####[facility] LABCLIA [id number] [place] [address] [place] Creatinine [Mass/Vol]0.92 mg/dLNormal0.73-1.22[facility] on above:Order Comment: Specimen Type: BLOOD SPECIMENOrdering Facility: [facility] Address:[address] Performed By: #### 26484-2 ####[facility] LABIA [id number] [place] [address] [place] [facility] OF [place] ESTIMATED GLOMERULAR FILTRATION RATE96 mL/min/1.73m???Normal>=60[facility] on above:Order Comment: Specimen Type: BLOOD SPECIMENOrdering Facility: [facility] Address:[address] [place], [place] [address]Result Comment: Estimated Glomerular Filtration Rate (eGFR) is calculated using the 2020 CKD-EPI creatinine equation. This equation utilizes serum creatinine, sex, and age as parameters. The creatinine assay has traceable calibration to isotope dilution-mass spectrometry. Refer to KDIGO guidelines f or clinical interpretation. In patients with unstable renal function, e.g. those with acute kidney injury, the eGFR may not accurately reflect actual GFR. Performed By: #### 16954-7 ####[facility] LABIA [id number] [place] [address] [place] Glucose [Mass/Vol]123 mg/tIFqhm11-19AoxvexvzsWVUMedicine Barnesville Hospital on above: Order Comment: Specimen Type: BLOOD SPECIMENOrdering Facility: [facility] Address:[address] [place], [place] [address]Result Comment: The [place] Diabetes Association (ADA) provides guidance for cutoff values for fast ing glucose and random glucose. The ADA defines fasting as no caloric intake for at least 8 hours. Fasting plasma glucose results between 100 to 125 mg/dL indicate increased risk for diabetes (prediabetes).Fasting plasma glucose results greater than or equal to 126 mg/dL meet the criteria for diagnosis of diabetes. In the absence of unequivocal hyperglycemia, results should be confirmed by repeattesting. In a patient with classic symptoms of hyperglycemia or hyperglycemic crisis, random plasmaglucose results greater than or equal to 200 mg/dL meet the criteria for diagnosis of diabetes.Reference: Standards of Medical Care in Diabetes 2016, [place] [employer]. Diabetes Care. 2016.39(Suppl 1).Performed By: #### 35184-0 ####[facility] LABCLIA [id number] [place] [address] [place] AMERICAPotassium [Moles/Vol]4.7 mmol/LNormal3.7-5.1COhioHealth Southeastern Medical Center Comment on above:Order Comment: Specimen Type: BLOOD SPECIMENOrdering Facility: [facility] Address:[address] [place] [address] Performed By: #### 07558-8 ####[facility] LABIA [id number] [place] [address] [place] Protein [Mass/Vol]5.9 g/dLLow6.3-8.0[facility] on above: Order Comment: Specimen Type: BLOOD SPECIMENOrdering Facility: [facility] Address:[address] [place], [place] [address]Performed By: #### 56018-8 ####[facility] LABIA [id number] [place] [address] [place] AMERICASodium [Moles/Vol]136 mmol/UAozwfp746-626JqkhlfeaeSumma Health Akron Campusment on above:Order Comment: Specimen Type: BLOOD SPECIMENOrdering Facility: [facility] Address:[address] [place], [place] [address]Performed By: #### 62914-6 ####[facility] LABIA [id number] [place] [address] [place] AMERICAUrea nitrogen [Mass/Vol]18 mg/dL Normal9-24[facility] on above:Order Comment: Specimen Type: BLOOD SPECIMENOrdering Facility: [facility] Address:[address] [place], [place] [address]Performed By: #### 78961-0 ####[facility] LABCLIA [id number] [place] [address] [place] AMERICATHERAPY NTon 63-08-3837IKPCFAE NTNormalCOhioHealth Southeastern Medical CenterTYPE + SCREENon 48-77-4633MAPUGtpwscLgtkvyfdz [facility] Comment on above:Order Comment: Specimen Type: BLOOD SPECIMENOrdering Facility: [facility] Address:[address] [place], [place] [address] Performed By: #### TSCR ####[facility]LOOD BANKCLIA [id number] [address] STATES OF [facility] MED[facility] CENTERHISTORICAL AB SCR STATUSNegativeNoalCOhioHealth Southeastern Medical CenterComment on above:Order Comment: Specimen Type: BLOOD SPECIMENOrdering Facility: [facility] Address:[address] [place], [place] [address]Performed By: #### TSCR ####[facility] BLOOD BANKCLIA [id number] [address] STATES [facility] MEDICAL CENTERRh Nom (Bld)PositiveNoKindred Hospital Lima Comment on above:Order Comment: Specimen Type: BLOOD SPECIMENOrdering Facility: [facility] Address:[address] [place] [address] Performed By: #### TSCR ####[facility] BLOOD BANKCLIA [id number] [place] [address] [place] AMERICATYPE AND SCREEN WXGUHDDNVU61/25/2023 23:59NormalCOhioHealth Southeastern Medical CenterComment on above:Order Comment: Specimen Type: BLOOD SPECIMENOrdering Facility: [facility] Address:[address] [place], [place] [address]Performed By: #### TSCR ####[facility] BLOOD BANKCLIA [id number] [place] [id number] [place] [facility] MED[facility] CENTERCB W Auto Differential panel (Bld)on 01-57-2358Joiqvkiqf (Bld) [#/Vol]0.06 10*3/uLNormal<0.11CMercer County Community Hospital on above:Order Comment: Specimen Type: BLOOD SPECIMENOrdering Facility: [facility] Address:[address] [place], [place] [address]Performed By: #### 77615-5 ####[facility] LABCLIA [id number] [place] [address] [place] Basophils/100 WBC (Bld)0.8 %[facility] on above: Order Comment: Specimen Type: BLOOD SPECIMENOrdering Facility: [facility] Address:[address] [place], [place] [address]Performed By: #### 11978-5 ####[facility] LABCLIA [id number] [place] [address] [place] AMERICADifferential cell count method Nom (Bld)AutoNormalCMercer County Community Hospital on above:Order Comment: Specimen Type: BLOOD SPECIMENOrdering Facility: [facility] Address:[address] [place], [place] [address]Performed By: #### 03875-4 ####[facility] LABCLIA [id number] [place] [address] [place] AMERICAEosinophils (Bld) [#/Vol]0.09 10*3/uLNormal<0.46[facility] on above:Order Comment: Specimen Type: BLOOD SPECIMENOrdering Facility: [facility] Address:[address] [place], [place] [address]Performed By: #### 98050-7 ####[facility] LABCLIA [id number] [place] [address] [place] AMERICAEosinophils/100 WBC (Bld)1.2 %[facility] on above:Order Comment: Specimen Type: BLOOD SPECIMENOrdering Facility: [facility] Address:[address] [place], [place] [address]Performed By: #### 73525-7 ####[facility] LABIA [id number] [place] [address] [place] AMERICAErythrocyte distribution width (RBC) [Ratio]16.4 %High11.5-15.0[facility] on above:Order Comment: Specimen Type: BLOOD SPECIMENOrdering Facility: [facility] Address:[address] [place], [place] [address]Performed By: #### 57453-5 ####[facility] LABIA [id number] [place] [address] [place] AMERICAHematocrit (Bld) [Volume fraction]25.5 %Low39.0-51.0[facility] on above: Order Comment: Specimen Type: BLOOD SPECIMENOrdering Facility: [facility] Address:[address] [place], [place] [address]Performed By: #### 90972-7 ####[facility] LABIA [id number] [place] [address] [place] AMERICAHemoglobin (Bld) [Mass/Vol]7.9 g/dLLow13.0-17.0[facility] on above:Order Comment: Specimen Type: BLOOD SPECIMENOrdering Facility: [facility] Address:[address] [place], [place] [address]Performed By: #### 78180-7 ####[facility] LABIA [id number] [place] [address] [place] AMERICAImmature granulocytes (Bld) [#/Vol]0.07 10*3/uLNormal<0.10[facility] on above: Order Comment: Specimen Type: BLOOD SPECIMENOrdering Facility: [facility] Address:[address] [place], [place] [address]Performed By: #### 57588-1 ####[facility] LABCLIA [id number] [place] [address] [place] AMERICAImmature granulocytes/100 WBC (Bld)0.9 %NormalWVUMedicine Barnesville Hospital on above: Order Comment: Specimen Type: BLOOD SPECIMENOrdering Facility: [facility] Address:[address] [place], [place] [address]Performed By: #### 67858-0 ####[facility] LABIA [id number] [place] [address] [place] [facility] MEDICAL CENTERLymphocytes (Bld) [#/Vol]0.99 10*3/uLLow1.00-4.00[facility] on above:Order Comment: Specimen Type: BLOOD SPECIMENOrdering Facility: [facility] Address:[address] [place], [place] [address]Performed By: #### 86237-5 ####[facility] LABIA [id number] [address] STATES [facility] MEDICAL CENTERLymphocytes/100 WBC (Bld)13.1 %NormalWVUMedicine [facility] on above:Order Comment: Specimen Type: BLOOD SPECIMENOrdering Facility: [facility] Address:[address] [place], [place] [id number] By: #### 04821-4 ####[facility] LABIA [id number] [address] (RBC) [Entitic mass]26.8 pg Gpierp29.0-34.0[facility] on above:Order Comment: Specimen Type: BLOOD SPECIMENOrdering Facility: [facility] Address:[address] [place], [place] [id number] By: #### 31286-8 ####[facility] LABIA [id number] [address] (RBC) [Mass/Vol]31.0 g/dL Mnohel04.5-36.0[facility] on above:Order Comment: Specimen Type: BLOOD SPECIMENOrdering Facility: [facility] Address:[address] [place], [place] [id number] By: #### 36673-2 ####[facility] LABIA [id number] [place] [address] [place] ([place]BC) [Entitic vol]86.4 fL Nmwiow78.0-100.0[facility] on above:Order Comment: Specimen Type: BLOOD SPECIMENOrdering Facility: [facility] Address:[address] [place], [place] [address]Performed By: #### 67946-3 ####[facility] LABIA [id number] [place] [address] [place] AMERICAMonocytes (Bld) [#/Vol]0.35 10*3/uLNormal<0.87[facility] on above:Order Comment: Specimen Type: BLOOD SPECIMENOrdering Facility: [facility] Address:[address] [place], [place] [address]Performed By: #### 37358-3 ####[facility] LABIA [id number] [place] [address] [place] AMERICAMonocytes/100 WBC (Bld)4.6 % NormalWVUMedicine Barnesville Hospital on above:Order Comment: Specimen Type: BLOOD SPECIMENOrdering Facility: [facility] Address:[address] [place], [place] [address]Performed By: #### 46287-6 ####[facility] LABIA [id number] [place] [address] [place] AMERICANeutrophils (Bld) [#/Vol]5.98 10*3/uLNormal1.45-7.50 [facility] on above:Order Comment: Specimen Type: BLOOD SPECIMENOrdering Facility: [facility] Address:[address] [place] [address]Performed By: #### 30976-5 ####[facility] LABIA [id number] [place] [address] [place] [facility] HOSPITALeutrophils/100 WBC (Bld)79.4 %NormalOhio State East Hospital Comment on above:Order Comment: Specimen Type: BLOOD SPECIMENOrdering Facility: [facility] Address:[address] [place], [place] [address] Performed By: #### 43303-2 ####[facility] LABIA [id number] [place] [address] [place] Nucleated RBC (Bld) [#/Vol]10*3/uLNormal<0.01[facility] HospitalComasc[facility] on above:Order Comment: Specimen Type: BLOOD SPECIMENOrdering Facility: [facility] Address:[address] [place], [place] [address] Performed By: #### 76226-4 ####[facility] LABIA [id number] [place] [address] [place] Nucleated RBC/100 WBC (Bld) [Ratio]0.0 /100 WBCNormalCOhioHealth Southeastern Medical Center Comment on above:Order Comment: Specimen Type: BLOOD SPECIMENOrdering Facility: [facility] Address:[address] [place] [address] Performed By: #### 87167-2 ####[facility] LABIA [id number] [place] [address] [place] Platelet mean volume (Bld) [Entitic vol]10.0 fLNormal9.0-12.7COhioHealth Southeastern Medical CenterComascension st[facility] j[facility] on above:Order Comment: Specimen Type: BLOOD SPECIMENOrdering Facility: [facility] Address:[address] [place] [address]Performed By: #### 47027-6 ####[facility] LABIA [id number] [place] [address] [place] Platelets (Bld) [#/Vol]470 10*3/eMUprz398-489DdiblfeqoWVUMedicine [facility] on above:Order Comment: Specimen Type: BLOOD SPECIMENOrdering Facility: [facility] Address:[address] [place] [address] Performed By: #### 03760-5 ####[facility] LABCLIA [id number] [place] [address] [place] RBC (Bld) [#/Vol]2.95 10*6/uLLow4.20-6.00[facility] on above:Order Comment: Specimen Type: BLOOD SPECIMENOrdering Facility: [facility] Address:[address] [place], [place] [address]Performed By: #### 78112-8 ####[facility] LABCLIA [id number] [place] [address] [place] AMERICAWBC (Bld) [#/Vol]7.54 10*3/uLNormal3.70-11.00[facility] on above:Order Comment: Specimen Type: BLOOD SPECIMENOrdering Facility: [facility] Address:[address] [place], [place] [address]Performed By: #### 71675-4 ####[facility] LABCLIA [id number] [place] [address] [place] AMERICACONSULT PROGon 21-51-5373EPTXYNK PROGNormalOhio State East HospitalCONSULT PROGNormalOhio State East Hospital Comprehensive metabolic 2000 panelon 58-41-5690Fpxoypw [Mass/Vol]2.5 g/dLLow 3.9-4.9CMercer [facility] on above:Order Comment: Specimen Type: BLOOD SPECIMENOrdering Facility: [facility] Address:[address] [place], [place] [address]Performed By: #### 69304-6, 64568-0 ####[facility] LABCLIA [id number] [place] [id number] [place] AMERICAALP [Catalytic activity/Vol]155 U/KVxmv86-041 [facility] on above:Order Comment: Specimen Type: BLOOD SPECIMENOrdering Facility: [facility] Address:[address] [place] [address]Performed By: #### 49516-8, 08760-7 ####[facility] LABCLIA [id number] [place] [address] [place] AMERICAALT [Catalytic activity/Vol]214 U/DOdhe79-17DxjosnmcuWVUMedicine [facility] Hospital on above:Order Comment: Specimen Type: BLOOD SPECIMENOrdering Facility: [facility] Address:[address] [place], [place] [address]Performed By: #### 36906-8, 22290-0 ####[facility] LABIA [id number] [place] [address] [place] AMERICAAnion gap [Moles/Vol]9 mmol/LNormal9-18[facility] on above:Order Comment: Specimen Type: BLOOD SPECIMENOrdering Facility: [facility] Address:[address] [place] [address]Performed By: #### 51390-2, 30233-4 ####[facility] LABIA [id number] [place] [address] [place] AMERICAAST [Catalytic activity/Vol]272 U/KYiaj80-59WsfbqgkqdOhio State East Hospital Comment on above:Order Comment: Specimen Type: BLOOD SPECIMENOrdering Facility: [facility] Address:[address] [place] [phone] Performed By: #### 81727-3, 86438-5 ####[facility] LABCLIA [id number] [place] [id number] [place] Bilirubin [Mass/Vol]0.3 mg/dLNormal0.2-1.3CMercer County Community Hospital on above:Order Comment: Specimen Type: BLOOD SPECIMENOrdering Facility: [facility] Address:[address] [place], [place] [address]Performed By: #### 32211-6, 07654-5 ####[facility] LABCLIA [id number] [facility] [place] [address] [place] AMERICACalcium [Mass/Vol]7.8 mg/dLLow8.5-10.2CMercer County Community Hospital on above:Order Comment: Specimen Type: BLOOD SPECIMENOrdering Facility: [facility] Address:[address] [place], [place] [address]Performed By: #### 34464-7, 06767-1 ####[facility] LABCLIA [id number] [place] [address] [place] AMERICAChloride [Moles/Vol] 105 mmol/YDofpis08-771MviigzxduWVUMedicine [facility] Hospital on above:Order Comment: Specimen Type: BLOOD SPECIMENOrdering Facility: [facility] Address:[address] [place], [place] [address]Performed By: #### 93364-1, 37763-6 ####[facility] LABCLIA [id number] [facility] [place] [address] [place] AMERICACO2 [Moles/Vol]23 mmol/QWducac95-18XagiqtiqqWVUMedicine [facility] Hospital on above:Order Comment: Specimen Type: BLOOD SPECIMENOrdering Facility: [facility] Address:[address] [place], [place] [address]Performed By: #### 84655-2, 33943-2 ####[facility] LABCLIA [id number] [facility] [place] [address] [place] AMERICACreatinine [Mass/Vol] 1.09 mg/dLNormal0.73-1.22[facility] on above:Order Comment: Specimen Type: BLOOD SPECIMENOrdering Facility: [facility] Address:[address] [place] [address]Performed By: #### 69498-4, 20344-2 ####[facility] LABCLIA [id number] [address] STATES OF [facility] MEDICAL CENTERESTIMATED GLOMERULAR FILTRATION RATE78 mL/min/1.73m???Normal>=60[facility] on above:Order Comment: Specimen Type: BLOOD SPECIMENOrdering Facility: [facility] Address:[address] [place], [place] [address]Result Comment: Estimated Glomerular Filtration Rate (eGFR) is calculated using the 2020 CKD-EPI creatinine equation. This equation utilizes serum creatinine, sex, and age as parameters. The creatinine assay has traceable calibration to isotope dilution-mass spectrometry. Refer to KDIGO guidelines for clinical interpretation. In patients with unstable renal function, e.g. those with acute kidney injury, the eGFR may not accurately reflect actual GFR.Performed By: #### 22705-9, 74717-1 ####[facility] LABCLIA [id number] [place] [address] [place] AMERICAGlucose [Mass/Vol]148 mg/cXXcqq16-58WeokzxyzjWVUMedicine [facility] Hospital on above:Order Comment: Specimen Type: BLOOD SPECIMENOrdering Facility: [facility] Address:[address] [place], [place] [address]Result Comment: The [place] Diabetes Association (ADA) provides guidance for cutoff [...] symptoms of hyperglycemia or hyperglycemic crisis, random plasmaglucose results greater than or equal to 200 mg/dL meet the criteria for diagnosis of diabetes.Reference: Standards of Medical Care in Diabetes 2016, [place] [employer]. Diabetes Care. 2016.39(Suppl 1). Performed By: #### 94394-1, 82770-9 ####[facility] LABCLIA [id number] [place] [address] [place] Potassium [Moles/Vol]5.4 mmol/LHigh3.7-5.1CMercer County Community Hospital on above:Order Comment: Specimen Type: BLOOD SPECIMENOrdering Facility: [facility] Address:[address] [place], [place] [address]Performed By: #### 87269-5, 27126-0 ####[facility] LABCLIA [id number] [place] [address] [place] AMERICAProtein [Mass/Vol]5.6 g/dLLow6.3-8.0[facility] on above:Order Comment: Specimen Type: BLOOD SPECIMENOrdering Facility: [facility] Address:[address] [place], [place] [address]Performed By: #### 37805-2, 85350-6 ####[facility] LABCLIA [id number] [place] [address] [place] AMERICASodium [Moles/Vol]137 mmol/IUsomqz079-341WmtjdkriqWVUMedicine [facility] Hospital on above:Order Comment: Specimen Type: BLOOD SPECIMENOrdering Facility: [facility] Address:[address] [place], [place] [address]Performed By: #### 47199-8, 48965-9 ####[facility] LABCLIA [id number] [place] [address] [place] AMERICAUrea nitrogen [Mass/Vol]19 mg/dLNormal9-24[facility] on above:Order Comment: Specimen Type: BLOOD SPECIMENOrdering Facility: [facility] Address:[address] [place] [address]Performed By: #### 50010-1, 02283-8 ####[facility] LABIA [id number] [place] [address] [place] AMERICAPrealb SerPl-mCncon 09-99-0925Pqtcaycayn [Mass/Vol]16 mg/vECyt26-98VzfpucvcrWVUMedicine [facility] on above:Order Comment: Specimen Type: BLOOD SPECIMENOrdering Facility: [facility] Address:[address] [place] [address] Performed By: #### 09278-7, 17301-0 ####[facility] LABCLIA [id number] [place] [address] [place] ANES POSTPROC EVALon 68-47-2181BPQX POSTPROC EVALNormalCOhioHealth Southeastern Medical CenterANES PRE-OPon 66-54-7592RPBJ PRE-OPNormalOhio State [facility] Hospital BRIEF OP NOTon 37-93-2727UGJPM OP NOTNormalCOhioHealth Southeastern Medical CenterCASE MANAGEMon 71-29-9908UPUM MANAGEMNormalOhio State East HospitalCBC panel Auto (Bld)on 05-32-2115Hnanakpdbmv distribution width (RBC) [Ratio]16.8 %High 11.5-15.0[facility] on above:Order Comment: Specimen Type: BLOOD SPECIMENOrdering Facility: [facility] Address:[address] [place], [place] [address]Performed By: #### 51556-0 ####[facility] LABIA [id number] [place] [address] [place] AMERICAHematocrit (Bld) [Volume fraction]27.2 %Low 39.0-51.0[facility] on above:Order Comment: Specimen Type: BLOOD SPECIMENOrdering Facility: [facility] Address:[address] [place], [place] [address]Performed By: #### 68008-2 ####[facility] LABCLIA [id number] [place] [address] [place] AMERICAHemoglobin (Bld) [Mass/Vol]8.6 g/dLLow13.0-17.0 [facility] on above:Order Comment: Specimen Type: BLOOD SPECIMENOrdering Facility: [facility] Address:[address] [place] [address]Oitpflzpg By: #### 06470-0 ####[facility] LABIA [id number] [place] [address] [place] [facility] MEDICAL CENTERMCH (RBC) [Entitic mass]26.9 dzSuxbmu01.0-34.0[facility] on above:Order Comment: Specimen Type: BLOOD SPECIMENOrdering Facility: [facility] Address:[address] [place] [address]Performed By: #### 09691-8 ####[facility] [id number] [place] [address] [place] MCHC (RBC) [Mass/Vol]31.6 g/pELnumpa74.5-36.0[facility] on above:Order Comment: Specimen Type: BLOOD SPECIMENOrdering Facility: [facility] Address:[address] [place] [address] Performed By: #### 48735-4 ####[facility] [id number] [place] [address] [place] MCV (RBC) [Entitic vol]85.0 pAFisvps58.0-100.0[facility] on above:Order Comment: Specimen Type: BLOOD SPECIMENOrdering Facility: [facility] Address:[address] [place] [phone] Performed By: #### 20420-2 ####[facility] [id number] [place] [address] [place] Nucleated RBC (Bld) [#/Vol]10*3/uLNormal<0.01[facility] on above:Order Comment: Specimen Type: BLOOD SPECIMENOrdering Facility: [facility] Address:[address] [place] [address] Performed By: #### 33095-1 ####[facility] LABIA [id number] [place] [address] [place] Platelet mean volume (Bld) [Entitic vol]9.6 fLNormal9.0-12.7CMercer County Community Hospital on above:Order Comment: Specimen Type: BLOOD SPECIMENOrdering Facility: [facility] Address:[address] [place] [address]Performed By: #### 24091-3 ####[facility] LABIA [id number] [place] [address] [place] Platelets (Bld) [#/Vol]464 10*3/bAGuom656-579UbesllggvWVUMedicine Barnesville Hospital on above:Order Comment: Specimen Type: BLOOD SPECIMENOrdering Facility: [facility] Address:[address] [place] [address] Performed By: #### 06219-2 ####[facility]PITALIA [id number] [place] [address] [place] RBC (Bld) [#/Vol]3.20 10*6/uLLow4.20-6.00[facility] on above:Order Comment: Specimen Type: BLOOD SPECIMENOrdering Facility: [facility] Address:[address] [place] [phone] By: #### 29727-8 ####[facility] LABIA [id number] [place] [address] [place] AMERICAWBC (Bld) [#/Vol]6.63 10*3/uLNormal3.70-11.00[facility] on above:Order Comment: Specimen Type: BLOOD SPECIMENOrdering Facility: [facility] Address:[address] [place] [phone] By: #### 38519-5 ####[facility]VERM[facility] [id number] [place] [id number] [place] AMERICACONSULT PROGon 73-72-5142HJKIFEL PROGNormalOhio State East HospitalCONLT PROGNormalKettering Health Springfield metabolic 2000 panelon 80-97-3134Gfrhaiu [Mass/Vol]2.5 g/dLLow 3.9-4.9CMercer County Community Hospital on above:Order Comment: Specimen Type: BLOOD SPECIMENOrdering Facility: [facility] Address:[address] [place], [place] [address]Performed By: #### 07031-9 ####[facility] LABCLIA [id number] [place] [address] [place] AMERICAALP [Catalytic activity/Vol]153 U/EPkiu39-166NktdyvlklWVUMedicine [facility] Hospital on above:Order Comment: Specimen Type: BLOOD SPECIMENOrdering Facility: [facility] Address:[address] [place], [place] [address]Performed By: #### 46660-8 ####[facility] LABCLIA [id number] [place] [address] [place] AMERICAALT [Catalytic activity/Vol]142 U/GApkr94-72HijhrvbgzWVUMedicine Barnesville Hospital on above:Order Comment: Specimen Type: BLOOD SPECIMENOrdering Facility: [facility] Address:[address] [place], [place] [address]Performed By: #### 45374-5 ####[facility] LABCLIA [id number] [place] [address] [place] Anion gap [Moles/Vol]9 mmol/LNormal9-18[facility] on above:Order Comment: Specimen Type: BLOOD SPECIMENOrdering Facility: [facility] Address:[address] [place] [address]Performed By: #### 55136-3 ####[facility] LABCLIA [id number] [place] [address] [place] AMERICAAST [Catalytic activity/Vol]167 U/VFcxi23-26Lrcniwuij Clinic ClevelandComment on above:Order Comment: Specimen Type: BLOOD SPECIMENOrdering Facility: [facility] Address:[address] [place], [place] [address]Result Comment: Results may be falsely increased due to interference from hemolysis. Suggest reorder as clinically indicated.Performed By: #### 39733-8 ####[facility] LABCLIA [id number] [place] [address] [place] AMERICABilirubin [Mass/Vol]0.3 mg/dLNormal0.2-1.3CMercer County Community Hospital on above:Order Comment: Specimen Type: BLOOD SPECIMENOrdering Facility: [facility] Address:[address] [place], [place] [address]Performed By: #### 91224-7 ####[facility] LABCLIA [id number] [address] STATES OF AMERICACalcium [Mass/Vol]8.3 mg/dLLow8.5-10.2CMercer County Community Hospital on above:Order Comment: Specimen Type: BLOOD SPECIMENOrdering Facility: [facility] Address:[address] [place], [place] [address]Performed By: #### 69077-1 ####[facility] LABCLIA [id number] [place] [address] [place] Chloride [Moles/Vol]107 mmol/USmsq64-187DfughuobhWVUMedicine Barnesville Hospital on above:Order Comment: Specimen Type: BLOOD SPECIMENOrdering Facility: [facility] Address:[address] [place], [place] [address]Performed By: #### 13423-2 ####[facility] LABCLIA [id number] [place] [address] [place] AMERICACO2 [Moles/Vol]23 mmol/NGmzexj24-43OyivajxtmWVUMedicine Barnes[facility] Hospital on above:Order Comment: Specimen Type: BLOOD SPECIMENOrdering Facility: [facility] Address:[address] [place] [id number] By: #### 37729-0 ####[facility] LABIA [id number] [place] [address] [place] [facility] CENTERCreatinine [Mass/Vol]1.08 mg/dL Normal0.73-1.22[facility] on above:Order Comment: Specimen Type: BLOOD SPECIMENOrdering Facility: [facility] Address:[address] [place], [place] [address]Performed By: #### 03903-3 ####[facility] LABIA [id number] [place] [address] [place] AMERICAESTIMATED GLOMERULAR FILTRATION RATE79 mL/min/1.73m???Normal>=60[facility] on above:Order Comment: Specimen Type: BLOOD SPECIMENOrdering Facility: [facility] Address:[address] [place], [place] [address]Result Comment: Estimated Glomerular Filtration Rate (eGFR) is calculated using the 2020 CKD-EPI creatinine equation. This equation utilizes serum creatinine, sex, and age as parameters. The creatinine assay has traceable calibration to isotope dilution- mass spectrometry. Refer to KDIGO guidelines for clinical interpretation. In patients with unstable renal function, e.g. those with acute kidney injury, the eGFR may not accurately reflect actual GFR.Performed By: #### 63635-4 ####[facility] LABIA [id number] [place] [address] [place] AMERICAGlucose [Mass/Vol]105 mg/dLHigh 74-99[facility] on above:Order Comment: Specimen Type: BLOOD SPECIMENOrdering Facility: [facility] Address:[address] [place], [place] [address]Result Comment: The [place] Diabetes Association (ADA) provides guidance for cutoff values for fasting glucose and random glucose. The ADA defines fasting as no caloric intake for at least 8 hours. F asting plasma glucose results between 100 to 125 mg/dL indicate increased risk for diabetes (prediabetes).Fasting plasma glucose results greater than or equal to 126 mg/dL meet the criteria for diagnosis of diabetes. In the absence of unequivocal hyperglycemia, results should be confirmed by repeattesting. In a patient with classic symptoms of hyperglycemia or hyperglycemic crisis, random plasmaglucose results greater than or equal to 200 mg/dL meet the criteria for diagnosis of diabetes.Reference: Standards of Medical Care in Diabetes 2016, [place] [employer]. Diabetes Care. 2016.39(Suppl 1).Performed By: #### 71981-0 ####[facility] LABCLIA [id number] [place] [address] [place] AMERICAPotassium [Moles/Vol] 5.0 mmol/LNormal3.7-5.1CMercer County Community Hospital on above:Order Comment: Specimen Type: BLOOD SPECIMENOrdering Facility: [facility] Address:[address] [place], [place] [address]Performed By: #### 22717-5 ####[facility] LABIA [id number] [place] [address] [place] AMERICAProtein [Mass/Vol]6.2 g/dLLow 6.3-8.0[facility] on above:Order Comment: Specimen Type: BLOOD SPECIMENOrdering Facility: [facility] Address:[address] [place], [place] [address]Performed By: #### 63029-3 ####[facility] LABIA [id number] [place] [address] [place] AMERICASodium [Moles/Vol]139 mmol/UKxtsgf375-015RopubnejfWVUMedicine Barnesville Hospital on above:Order Comment: Specimen Type: BLOOD SPECIMENOrdering Facility: [facility] Address:[address] [place], [place] [address]Performed By: #### 32574-1 ####[facility] LABIA [id number] [place] [address] [place] AMERICAUrea nitrogen [Mass/Vol]24 mg/dLNormal9-24[facility] on above:Order Comment: Specimen Type: BLOOD SPECIMENOrdering Facility: [facility] Address:[address] [place], [place] [address]Performed By: #### 19769-0 ####[facility] LABCLIA [id number] [place] [address] [place] NUTRITIONon 57-92-3416HTLLRNBFUUatrnvQkwqmrjkl Clinic ClevelandOPERATIVE NOon 03-57-5491AOSWXHACL NONormalOhio State East HospitalTHERAPY NTon 01-31-2023 THERAPY NTNormalCOhioHealth Southeastern Medical CenterBabaptist health [facility] metabolic 2000 panelon 24-29-0333Iyped gap [Moles/Vol]8 mmol/LLow9-18[facility] on above:Order Comment: Specimen Type: BLOOD SPECIMENOrdering Facility: [facility] Address:[address] [place] [address] Performed By: #### 17442-1 ####[facility] LABCLIA [id number] [place] [address] [place] Calcium [Mass/Vol]7.5 mg/dLLow8.5-10.2CMercer County Community Hospital on above:Order Comment: Specimen Type: BLOOD SPECIMENOrdering Facility: [facility] Address:[address] [place], [place] [address]Performed By: #### 83649-1 ####[facility] LABCLIA [id number] [place] [address] [place] AMERICAChloride [Moles/Vol] 105 mmol/LZtmprv49-297MvoaxsvupWVUMedicine Barnesville Hospital on above:Order Comment: Specimen Type: BLOOD SPECIMENOrdering Facility: [facility] Address:[address] [place], [place] [address]Performed By: #### 14460-9 ####[facility] LABCLIA [id number] [place] [address] [place] AMERICACO2 [Moles/Vol]23 mmol/LNormal 22-30[facility] on above:Order Comment: Specimen Type: BLOOD SPECIMENOrdering Facility: [facility] Address:[address] [place], [place] [address]Performed By: #### [id number] ####[facility] LABIA [id number] [place] [address] [place] [facility] CENTERCreatinine [Mass/Vol]1.17 mg/dLNormal0.73-1.22[facility] on above:Order Comment: Specimen Type: BLOOD SPECIMENOrdering Facility: [facility] Address:[address] [place], [place] [address]Performed By: #### [id number] ####[facility] LABIA [id number] [place] [address] [place] AMERICAESTIMATED GLOMERULAR FILTRATION RATE72 mL/min/1.73m???Normal >=60[facility] on above:Order Comment: Specimen Type: BLOOD SPECIMENOrdering Facility: [facility] Address:[address] [place], [place] [address]Result Comment: Estimated Glomerular Filtration Rate (eGFR) is calculated using the 2020 CKD-EPI creatinine equation. This equation utilizes serum creatinine, sex, and age as parameters. The creatinine assay has traceable calibration to isotope dilution-mass spectrometry. Refer to KDIGO guidelines for clinical interpretation. In patients with unstable renal function, e.g. those with acute kidney injury, the eGFR may not accurately reflect actual GFR.Performed By: #### 82060-3 ####[facility] LABIA [id number] [place] [address] [place] AMERICAGlucose [Mass/Vol]116 mg/dWIxcg67-44JikupoahoWVUMedicine Barnesville Hospital on above:Order Comment: Specimen Type: BLOOD SPECIMENOrdering Facility: [facility] Address:[address] [place], [place] [address]Result Comment: The [place] Diabetes Association (ADA) provides guidance for cutoff values for fasting glucose and random glucose. The ADA defines fasting as no caloric intake for at least 8 hours. Fasting plasma glucose results between 100 to 125 mg/dL indicate increased risk for diabetes (prediabetes).Fasting plasma glucose results greater than or equal to 126 mg/dL meet the criteria for diagno sis of diabetes. In the absence of unequivocal hyperglycemia, results should be confirmed by repeattesting. In a patient with classic symptoms of hyperglycemia or hyperglycemic crisis, random plasmaglucose results greater than or equal to 200 mg/dL meet the criteria for diagnosis of diabetes.Reference: Standards of Medical Care in Diabetes 2016, [place] Diabetes Association. Diabetes Care. 2016.39(Suppl 1).Performed By: #### 45163-9 ####[facility] LABIA [id number] [place] [address] [place] AMERICAPotassium [Moles/Vol]4.6 mmol/LNormal3.7-5.1COhioHealth Southeastern Medical Center Comment on above:Order Comment: Specimen Type: BLOOD SPECIMENOrdering Facility: [facility] Address:[address] [place] [address] Performed By: #### 71699-4 ####[facility] [id number] [place] [address] [place] Sodium [Moles/Vol]136 mmol/JDyxdwb513-597IbfwjicupOhio State East HospitalComment on above:Order Comment: Specimen Type: BLOOD SPECIMENOrdering Facility: [facility] Address:[address] [place], [place] [address]Performed By: #### 34693-1 ####[facility] [id number] [place] [address] [place] AMERICAUrea nitrogen [Mass/Vol]22 mg/dLNormal9-24Ohio State East HospitalComment on above:Order Comment: Specimen Type: BLOOD SPECIMENOrdering Facility: [facility] Address:[address] [place], [place] [address]Performed By: #### 69593-0 ####[facility] [id number] [place] [address] [place] [facility] MEDICAL CENTERCBC panel Auto (Bld)on 92-97-1503Wswkvvevouu distribution width (RBC) [Ratio]16.6 %High11.5-15.0 [facility] on above:Order Comment: Specimen Type: BLOOD SPECIMENOrdering Facility: [facility] Address:[address] [place] [address]Performed By: #### 52438-9 ####[facility] LABCLIA [id number] [place] [address] [place] [facility] CENTERHematocrit (Bld) [Volume fraction]27.1 %Low39.0-51.0[facility] on above:Order Comment: Specimen Type: BLOOD SPECIMENOrdering Facility: [facility] Address:[address] [place], [place] [address]Performed By: #### 55381-2 ####[facility] LABIA [id number] [address] OF [facility] CENTERHemoglobin (Bld) [Mass/Vol]8.7 g/dLLow13.0-17.0[facility] on above:Order Comment: Specimen Type: BLOOD SPECIMENOrdering Facility: [facility] Address:[address] [place], [place] [address]Performed By: #### 66357-6 ####[facility] LABIA [id number] [place] [address] [place] MCH (RBC) [Entitic mass]27.4 mrZxymfd49.0-34.0[facility] on above:Order Comment: Specimen Type: BLOOD SPECIMENOrdering Facility: [facility] Address:[address] [place] [address] Performed By: #### 82275-3 ####[facility] LABCLIA [id number] [place] [address] [place] MCHC (RBC) [Mass/Vol]32.1 g/gFKfgflf72.5-36.0[facility] on above:Order Comment: Specimen Type: BLOOD SPECIMENOrdering Facility: [facility] Address:[address] [place], [place] [address] Performed By: #### 04204-0 ####[facility] LABIA [id number] [place] [address] [place] MCV (RBC) [Entitic vol]85.2 mZJdsilm37.0-100.0[facility] on above:Order Comment: Specimen Type: BLOOD SPECIMENOrdering Facility: [facility] Address:[address] [place], [place] [address] Performed By: #### 59550-8 ####[facility] [id number] [place] [address] [place] Nucleated RBC (Bld) [#/Vol]10*3/uLNormal<0.01[facility] on above:Order Comment: Specimen Type: BLOOD SPECIMENOrdering Facility: [facility] Address:[address] [place] [address] Performed By: #### 95018-1 ####[facility] [id number] [place] [address] [place] Platelet mean volume (Bld) [Entitic vol]9.8 fLNormal9.0-12.7CMercer County Community Hospital on above:Order Comment: Specimen Type: BLOOD SPECIMENOrdering Facility: [facility] Address:[address] [place] [address]Performed By: #### 08149-0 ####[facility] LABVERM[facility] [id number] [place] [address] [place] Platelets (Bld) [#/Vol]407 10*3/cLCttq243-815LmbbssibaWVUMedicine Barnesville Hospital on above:Order Comment: Specimen Type: BLOOD SPECIMENOrdering Facility: [facility] Address:[address] [place] [address] Performed By: #### 15336-1 ####[facility] LABIA [id number] [address] OF [place] RBC (Bld) [#/Vol]3.18 10*6/uLLow4.20-6.00[facility] East HospitalComment on above:Order Comment: Specimen Type: BLOOD SPECIMENOrdering Facility: [facility] Address:[address] [place], [place] [address]Performed By: #### 96530-6 ####[facility] [id number] [address] STATES OF [facility] CENTERWBC (Bld) [#/Vol]10.63 10*3/uLNormal3.70-11.00[facility] HospitalComment on above:Order Comment: Specimen Type: BLOOD SPECIMENOrdering Facility: [facility] Address:[address] [place], [place] [address]Performed By: #### 04813-6 ####[facility] [id number] [address] STATES OF [facility]TR[facility] MEDICAL CENTERErythrocyte distribution width (RBC) [Ratio]16.6 %High11.5-15.0[facility] Comment on above:Order Comment: Specimen Type: BLOOD SPECIMENOrdering Facility: [facility] Address:[address] [place], [place] [address] Performed By: #### 45105-4 ####[facility] LABVERMONT [facility] [id number] [address] Hematocrit (Bld) [Volume fraction]25.7 %Low39.0-51.0[facility] Comment on above:Order Comment: Specimen Type: BLOOD SPECIMENOrdering Facility: [facility] Address:[address] [place] [address] Performed By: #### 19632-9 ####[facility] [id number] [place] [id number] [place] Hemoglobin (Bld) [Mass/Vol]8.3 g/dLLow13.0-17.0[facility] on above:Order Comment: Specimen Type: BLOOD SPECIMENOrdering Facility: [facility] Address:[address] [place], [place] [address] Performed By: #### 95382-8 ####[facility] LABIA [id number] [place] [address] [place] MCH (RBC) [Entitic mass]26.9 ikImxfzf13.0-34.0[facility] on above:Order Comment: Specimen Type: BLOOD SPECIMENOrdering Facility: [facility] Address:[address] [place] [address] Performed By: #### 23984-9 ####[facility] LABIA [id number] [address] [place] MCHC (RBC) [Mass/Vol]32.3 g/hNUmqbli34.5-36.0[facility] on above:Order Comment: Specimen Type: BLOOD SPECIMENOrdering Facility: [facility] Address:[address] [place], [place] [address] Performed By: #### 24007-3 ####[facility] LABIA [id number] [place] [address] [place] MCV (RBC) [Entitic vol]83.4 fJGecaxh59.0-100.0[facility] on above:Order Comment: Specimen Type: BLOOD SPECIMENOrdering Facility: [facility] Address:[address] [place] [address] Performed By: #### 99095-1 ####[facility] LABIA [id number] [place] [address] [place] Nucleated RBC (Bld) [#/Vol]10*3/uLNormal<0.01[facility] on above:Order Comment: Specimen Type: BLOOD SPECIMENOrdering Facility: [facility] Address:[address] [place] [address] Performed By: #### 62818-9 ####[facility] LABCLIA [id number] [place] [address] [place] Platelet mean volume (Bld) [Entitic vol]9.8 fLNormal9.0-12.7CMercer County Community Hospital on above:Order Comment: Specimen Type: BLOOD SPECIMENOrdering Facility: [facility] Address:[address] [place], [place] [address]Performed By: #### 11221-2 ####[facility] LABCLIA [id number] [place] [address] [place] Platelets (Bld) [#/Vol]413 10*3/xCRmob822-477HkhopsmukWVUMedicine Barnesville Hospital on above:Order Comment: Specimen Type: BLOOD SPECIMENOrdering Facility: [facility] Address:[address] [place], [place] [address] Performed By: #### 43342-2 ####[facility] LABIA [id number] [place] [address] [place] RBC (Bld) [#/Vol]3.08 10*6/uLLow4.20-6.00[facility] on above:Order Comment: Specimen Type: BLOOD SPECIMENOrdering Facility: [facility] Address:[address] [place] [phone] By: #### 73656-8 ####[facility] LABIA [id number] [place] [address] [place] AMERICAWBC (Bld) [#/Vol]10.69 10*3/uLNormal3.70-11.00[facility] on above:Order Comment: Specimen Type: BLOOD SPECIMENOrdering Facility: [facility] Address:[address] [place] [address], [place] [address]Zkirywmch By: #### 25797-6 ####[facility] LABCLIA [id number] [place] [address] [place] AMERICACONSULT PROGon 17-71-2261ZFZMBHK PROGNormalOhio State East HospitalCT FEMUR WO IVCON LTon 16-89-2743GW FEMUR WO IVCON LTNormalCOhioHealth Southeastern Medical CenterCT PELVIS ORTHO WO IVCONon 49-47-9417RO PELVIS ORTHO WO IVCONNormalOhio State East HospitalCT TIB-FIB WO IVCON LTon 72-72-4140DG TIB-FIB WO IVCON LTNormalCOhioHealth Southeastern Medical CenterComprehensive metabolic 2000 panelon 59-71-1048Oxckafg [Mass/Vol]2.5 g/dLLow3.9-4.9CMercer County Community Hospital on above:Order Comment: Specimen Type: BLOOD SPECIMENOrdering Facility: [facility] Address:[address] [place] [address]Performed By: #### 04784-2 ####[facility] LABCLIA [id number] [place] [address] [place] AMERICAALP [Catalytic activity/Vol]173 U/ENump02-930 [facility] on above:Order Comment: Specimen Type: BLOOD SPECIMENOrdering Facility: [facility] Address:[address] [place], [place] [address]Performed By: #### 50362-8 ####[facility] LABCLIA [id number] [place] [address] [place] AMERICAALT [Catalytic activity/Vol]142 U/XEerl26-57EwfmgaqzjWVUMedicine Barnesville Hospital on above:Order Comment: Specimen Type: BLOOD SPECIMENOrdering Facility: [facility] Address:[address] [place] [address]Mgiknqfyr By: #### 66140-7 ####[facility] LABCLIA [id number] [place] [id number] [place] Anion gap [Moles/Vol]10 mmol/LNormal9-18[facility] on above:Order Comment: Specimen Type: BLOOD SPECIMENOrdering Facility: [facility] Address:[address] [place], [place] [address]Performed By: #### 96847-1 ####[facility] LABCLIA [id number] [place] [address] [place] AMERICAAST [Catalytic activity/Vol]240 U/YPiwv98-94AcmasdzayWVUMedicine Barnesville Hospital on above:Order Comment: Specimen Type: BLOOD SPECIMENOrdering Facility: [facility] Address:[address] [place], [place] [address]Performed By: #### 24450-5 ####[facility] LABCLIA [id number] [place] [address] [place] AMERICABilirubin [Mass/Vol] 0.3 mg/dLNormal0.2-1.3CMercer County Community Hospital on above:Order Comment: Specimen Type: BLOOD SPECIMENOrdering Facility: [facility] Address:[address] [place], [place] [address]Performed By: #### 50312-7 ####[facility] LABCLIA [id number] [place] [address] [place] AMERICACalcium [Mass/Vol]7.6 mg/dLLow 8.5-10.2CMercer County Community Hospital on above:Order Comment: Specimen Type: BLOOD SPECIMENOrdering Facility: [facility] Address:[address] [place] [address]Performed By: #### 90454-8 ####[facility] LABCLIA [id number] [place] [address] [place] AMERICAChloride [Moles/Vol]106 mmol/TYyfw45-591OvydhauliWVUMedicine Barnesville Hospital on above:Order Comment: Specimen Type: BLOOD SPECIMENOrdering Facility: [facility] Address:[address] [place] [address], [place] [address]Dqtsxrzha By: #### 78552-6 ####[facility] LABCLIA [id number] [place] [address] [place] AMERICACO2 [Moles/Vol]21 mmol/KJcg72-88TsdtaqbmjOhio State East Hospital Comment on above:Order Comment: Specimen Type: BLOOD SPECIMENOrdering Facility: [facility] Address:[address] [place] [address] Performed By: #### 58483-7 ####[facility] LABIA [id number] [place] [address] [place] Creatinine [Mass/Vol]1.20 mg/dLNormal0.73-1.22[facility] on above:Order Comment: Specimen Type: BLOOD SPECIMENOrdering Facility: [facility] Address:[address] [place] [address] Performed By: #### 99204-6 ####[facility] H[facility]PITALIA [id number] [address] STATES [place] ESTIMATED GLOMERULAR FILTRATION RATE70 mL/min/1.73m???Normal>=60Sum[facility]ron Campusment on above:Order Comment: Specimen Type: BLOOD SPECIMENOrdering Facility: [facility] Address:[address] [place], [place] [address] Comment: Estimated Glomerular Filtration Rate (eGFR) is calculated using the 2020 CKD-EPI creatinine equation. This equation utilizes serum creatinine, sex, and age as parameters. The creatinine assay has traceable calibration to isotope dilution-mass spectrometry. Refer to KDIGO guidelines f or clinical interpretation. In patients with unstable renal function, e.g. those with acute kidney injury, the eGFR may not accurately reflect actual GFR. Performed By: #### 02665-5 ####[facility] LABCLIA [id number] [place] [address] [place] Glucose [Mass/Vol]121 mg/zDSifx02-73Edcudarsm Clinic ClevelandComment on above: Order Comment: Specimen Type: BLOOD SPECIMENOrdering Facility: [facility] Address:[address] [place] [address]Mzdcde Comment: The [place] Diabetes Association (ADA) provides guidance for cutoff values for fast ing glucose and random glucose. The ADA defines fasting as no caloric intake for at least 8 hours. Fasting plasma glucose results between 100 to 125 mg/dL indicate increased risk for diabetes (prediabetes).Fasting plasma glucose results greater than or equal to 126 mg/dL meet the criteria for diagnosis of diabetes. In the absence of unequivocal hyperglycemia, results should be confirmed by repeattesting. In a patient with classic symptoms of hyperglycemia or hyperglycemic crisis, random plasmaglucose results greater than or equal to 200 mg/dL meet the criteria for diagnosis of diabetes.Reference: Standards of Medical Care in Diabetes 2016, [place] [employer]. Diabetes Care. 2016.39(Suppl 1).Performed By: #### 45567-2 ####[facility] LABCLIA [id number] [place] [address] [place] AMERICAPotassium [Moles/Vol]4.5 mmol/LNormal3.7-5.1COhioHealth Southeastern Medical Center Comment on above:Order Comment: Specimen Type: BLOOD SPECIMENOrdering Facility: [facility] Address:[address] [place], [place] [address] Performed By: #### 74120-2 ####[facility] LABCLIA [id number] [place] [address] [place] Protein [Mass/Vol]5.9 g/dLLow6.3-8.0[facility] HospitalComment on above: Order Comment: Specimen Type: BLOOD SPECIMENOrdering Facility: [facility] Address:[address] [place] [phone] By: #### 89936-6 ####[facility] LABCLIA [id number] [place] [address] [place] AMERICASodium [Moles/Vol]137 mmol/LSzuiss750-374MmkwcfcjrOhio State East HospitalComment on above:Order Comment: Specimen Type: BLOOD SPECIMENOrdering Facility: [facility] Address:[address] [place], [place] [address]Performed By: #### 79145-6 ####[facility] LABCLIA [id number] [place] [address] [place] AMERICAUrea nitrogen [Mass/Vol]24 mg/dL Normal9-24[facility] on above:Order Comment: Specimen Type: BLOOD SPECIMENOrdering Facility: [facility] Address:[address] [place], [place] [address]Performed By: #### 54362-1 ####[facility] LABCLIA [id number] [place] [address] [place] AMERICATYPE + SCREENon 34-70-1970WIFTRwwdkoJtnzktyrtMercer County Community Hospital on above:Order Comment: Specimen Type: BLOOD SPECIMENOrdering Facility: [facility] Address:[address] [place], [place] [address]Performed By: #### TSCR ####[facility] BLOOD BANKCLIA [id number] [place] [address] [place] AMERICAHISTORICAL AB SCR STATUSNegativeNormMarion Hospital on above:Order Comment: Specimen Type: BLOOD SPECIMENOrdering Facility: [facility] Address:[address] [place] [address] Performed By: #### TSCR ####[facility] BLOOD BANKCLIA [id number] [place] [address] [place] AMERICARh Nom (Bld)Positive NormalWVUMedicine Barnesville Hospital on above:Order Comment: Specimen Type: BLOOD SPECIMENOrdering Facility: [facility] Address:[address] [place], [place] [address]Performed By: #### TSCR ####[facility] BLOOD BANKCLIA [id number] [place] [address] [place] AMERICATYPE AND SCREEN PMODXPQXUU46/22/2023 23:59NormalCMercer County Community Hospital on above:Order Comment: Specimen Type: BLOOD SPECIMENOrdering Facility: [facility] Address:[address]Performed By: #### TSCR ####[facility] BLOOD BANKCLIA [id number] [address] OF AMERICACBC panel Auto (Bld)on 63-93-8430Xkacappdsxm distribution width (RBC) [Ratio]16.2 %High 11.5-15.0[facility] on above:Order Comment: Specimen Type: BLOOD SPECIMENOrdering Facility: [facility] Address:[address] [place], [place] [address]Performed By: #### 15201-9 ####[facility] LABIA [id number] [address] STREETHematocrit (Bld) [Volume fraction]33.5 %Low 39.0-51.0[facility] on above:Order Comment: Specimen Type: BLOOD SPECIMENOrdering Facility: [facility] Address:[address] [place], [place] [address]Performed By: #### 68088-0 ####[facility] LABIA [id number] [address] ST[address]ETHemoglobin (Bld) [Mass/Vol]10.7 g/dLLow13.0-17.0 [facility] on above:Order Comment: Specimen Type: BLOOD SPECIMENOrdering Facility: [facility] Address:[address]Performed By: #### 60842-2 ####[facility] LABIA [id number] [place] [address] [place] AMERICAMCH (RBC) [Entitic mass]27.0 iwYnvrih83.0-34.0[facility] on above:Order Comment: Specimen Type: BLOOD SPECIMENOrdering Facility: [facility] Address:[address] [place] [address]Performed By: #### 29898-7 ####[facility] LABIA [id number] [address] STATES [facility] MCHC (RBC) [Mass/Vol]31.9 g/pAPcpeum38.5-36.0[facility] on above:Order Comment: Specimen Type: BLOOD SPECIMENOrdering Facility: [facility] Address:[address] [place] [address] Performed By: #### 98937-8 ####[facility] LABIA [id number] [place] [address] [place] MCV (RBC) [Entitic vol]84.6 wDZsbbef80.0-100.0[facility] on above:Order Comment: Specimen Type: BLOOD SPECIMENOrdering Facility: [facility] Address:[address] [place] [address] Performed By: #### 93218-7 ####[facility] [id number] [place] [address] [place] Nucleated RBC (Bld) [#/Vol]10*3/uLNormal<0.01[facility] on above:Order Comment: Specimen Type: BLOOD SPECIMENOrdering Facility: [facility] Address:[address] [place] [address] Performed By: #### 78343-6 ####[facility] LABIA [id number] [place] [address] [place] Platelet mean volume (Bld) [Entitic vol]10.7 fLNormal9.0-12.7CMercer County Community Hospital on above:Order Comment: Specimen Type: BLOOD SPECIMENOrdering Facility: [facility] Address:[address] [place], [place] [address]Performed By: #### 60857-6 ####[facility] LABIA [id number] [address] [address] [place] Platelets (Bld) [#/Vol]354 10*3/cWRofwxv305-787GyhrcjjkuWVUMedicine Barnesville Hospital on above:Order Comment: Specimen Type: BLOOD SPECIMENOrdering Facility: [facility] Address:[address] [place] [address] Performed By: #### 90609-7 ####[facility] H[facility]PITALIA [id number] [place] [address] [place] RBC (Bld) [#/Vol]3.96 10*6/uLLow4.20-6.00[facility] on above:Order Comment: Specimen Type: BLOOD SPECIMENOrdering Facility: [facility] Address:[address] [place] [address]Performed By: #### 09054-2 ####[facility] [id number] [place] [address] [place] AMERICAWBC (Bld) [#/Vol]14.66 10*3/uLHigh3.70-11.00[facility] on above:Order Comment: Specimen Type: BLOOD SPECIMENOrdering Facility: [facility] Address:[address] [place] [address]Performed By: #### 10014-6 ####[facility] [id number] [place] [address] [place] AMERICACONSULTon 91-72-1636SQGUSXIQbswaq [facility] HospitalCONSULT PROGon 60-74-8634MBRNFTM PROGNormalOhio State East HospitalComprehensive metabolic 2000 panelon 02-56-2908Tefaqbz [Mass/Vol]2.4 g/dLLow3.9-4.9CMercer County Community Hospital on above:Order Comment: Specimen Type: BLOOD SPECIMENOrdering Facility: [facility] Address:[address] [place], [place] [address]Performed By: #### 11442-9 ####[facility] LABCLIA [id number] [place] [address] [place] AMERICAALP [Catalytic activity/Vol]220 U/CMoaf71-082MudqysjhoWVUMedicine Barnesville Hospital on above:Order Comment: Specimen Type: BLOOD SPECIMENOrdering Facility: [facility] Address:[address] [place], [place] [address]Performed By: #### 26110-5 ####[facility] LABCLIA [id number] [place] [address] [place]ALT [Catalytic activity/Vol]34 U/ETtqdws14-01YrkrashxkWVUMedicine [facility] on above:Order Comment: Specimen Type: BLOOD SPECIMENOrdering Facility: [facility] Address:[address] [place], [place] [id number] By: #### 85908-8 ####[facility] LABCLIA [id number] [place] [address] [place] AMERICAAnion gap [Moles/Vol] 11 mmol/LNormal9-18[facility] on above:Order Comment: Specimen Type: BLOOD SPECIMENOrdering Facility: [facility] Address:[address] [place], [place] [id number] By: #### 51696-6 ####[facility] LABCLIA [id number] [place] [address] [place] [Catalytic activity/Vol]43 U/JHaop52-81FumeuhmdzWVUMedicine [facility] on above:Order Comment: Specimen Type: BLOOD SPECIMENOrdering Facility: [facility] Address:[address] [place] [address]Performed By: #### 18605-4 ####[facility] LABCLIA [id number] [place] [id number] [place] AMERICABilirubin [Mass/Vol]0.6 mg/dLNormal0.2-1.3 [facility] on above:Order Comment: Specimen Type: BLOOD SPECIMENOrdering Facility: [facility] Address:[address] [place], [place] [address]Performed By: #### 52126-2 ####[facility] LABCLIA [id number] [place] [address] [place] AMERICACalcium [Mass/Vol]7.5 mg/dLLow8.5-10.2CMercer [facility] on above:Order Comment: Specimen Type: BLOOD SPECIMENOrdering Facility: [facility] Address:[address] [place], [place] [address]Performed By: #### 78656-6 ####[facility] LABCLIA [id number] [place] [address] [place] Chloride [Moles/Vol]103 mmol/UNyjgbb37-452BeouentkmWVUMedicine Barnesville Hospital on above:Order Comment: Specimen Type: BLOOD SPECIMENOrdering Facility: [facility] Address:[address] [place], [place] [address]Performed By: #### 74559-6 ####[facility] LABCLIA [id number] [place] [address] [place] AMERICACO2 [Moles/Vol]22 mmol/NAdkajz74-76FtxquymeoWVUMedicine Barnesville Hospital on above:Order Comment: Specimen Type: BLOOD SPECIMENOrdering Facility: [facility] Address:[address] [place] [address]Qqbolwwtu By: #### 97990-3 ####[facility] LABCLIA [id number] [place] [address] [place] AMERICACreatinine [Mass/Vol]1.02 mg/dL Normal0.73-1.22[facility] on above:Order Comment: Specimen Type: BLOOD SPECIMENOrdering Facility: [facility] Address:[address] [place] [address]Performed By: #### 17784-6 ####[facility] LABCLIA [id number] [address]ETESTIMATED GLOMERULAR FILTRATION RATE85 mL/min/1.73m???Normal>=60[facility] on above:Order Comment: Specimen Type: BLOOD SPECIMENOrdering Facility: [facility] Address:[address] [place] [address]Result Comment: Estimated Glomerular Filtration Rate (eGFR) is calculated using the 2020 CKD-EPI creatinine equation. This equation utilizes serum creatinine, sex, and age as parameters. The creatinine assay has traceable calibration to isotope dilution- mass spectrometry. Refer to KDIGO guidelines for clinical interpretation. In patients with unstable renal function, e.g. those with acute kidney injury, the eGFR may not accurately reflect actual GFR.Performed By: #### 07356-4 ####[facility]ITALIA [id number] [address]ETGlucose [Mass/Vol]92 mg/dLNormal 74-99[facility] on above:Order Comment: Specimen Type: BLOOD SPECIMENOrdering Facility: [facility] Address:[address] [place], [place] [address]Result Comment: The [place] Diabetes Association (ADA) provides guidance for cutoff values for fasting glucose and random glucose. The ADA defines fasting as no caloric intake for at least 8 hours. F asting plasma glucose results between 100 to 125 mg/dL indicate increased risk for diabetes (prediabetes).Fasting plasma glucose results greater than or equal to 126 mg/dL meet the criteria for diagnosis of diabetes. In the absence of unequivocal hyperglycemia, results should be confirmed by repeattesting. In a patient with classic symptoms of hyperglycemia or hyperglycemic crisis, random plasmaglucose results greater than or equal to 200 mg/dL meet the criteria for diagnosis of diabetes.Reference: Standards of Medical Care in Diabetes 2016, [place] [employer]. Diabetes Care. 2016.39(Suppl 1).Performed By: #### 27219-3 ####[facility] LABCLIA [id number] [address] [address] [place] AMERICAPotassium [Moles/Vol] 5.2 mmol/LHigh3.7-5.1CMercer County Community [facility] on above:Order Comment: Specimen Type: BLOOD SPECIMENOrdering Facility: [facility] Address:[address] [place], [place] [address]Performed By: #### 81543-2 ####[facility] LABCLIA [id number] [place] [address] [place] AMERICAProtein [Mass/Vol]6.1 g/dLLow 6.3-8.0[facility] on above:Order Comment: Specimen Type: BLOOD SPECIMENOrdering Facility: [facility] Address:[address] [place], [place] [address]Performed By: #### 51263-7 ####[facility] LABCLIA [id number] [place] [address] [place] AMERICASodium [Moles/Vol]136 mmol/BJnmlqg577-121RkzbuqrodWVUMedicine [facility] on above:Order Comment: Specimen Type: BLOOD SPECIMENOrdering Facility: [facility] Address:[address] [place], [place] [address]Performed By: #### 65249-3 ####[facility] LABCLIA [id number] [place] [address] [place] AMERICAUrea nitrogen [Mass/Vol]15 mg/dLNormal9-24[facility] on above:Order Comment: Specimen Type: BLOOD SPECIMENOrdering Facility: [facility] Address:[address] [place], [place] [address]Performed By: #### 37656-9 ####[facility] LABIA [id number] [place] [address] [place] NURSING PROGon 47-87-6674PAPZAFY PROGNormalOhio State East HospitalPT panel Coag (PPP)on 08-70-3762AFN Coag (PPP) [Relative time]1.0 {INR}Normal0.9-1.3 [facility] on above:Order Comment: Specimen Type: BLOOD SPECIMENOrdering Facility: [facility] Address:[place] [address]Uuscyi Comment: Vitamin K Antagonist (VKA) Therapeutic Range: INR 2 to 3 (Target INR of 2.5)Note: For patients treated with VKA drugs, such as warfarin, the [place] [employer] 2012 Guideline recommends a therapeutic INR range of 2 to 3 (target INR of 2.5). This recommendation includes high-risk patients with antiphospholipid syndrome with previous arterial or venous thromboembolism, current-generation mechanical or bioprosthetic aortic heart valve replacement.Note: Patients with mechanical aortic valve replacement and additional risk factors for thromboembolic events (atrialfibrillation, previous thromboembolism, LV dysfunction, hypercoagulable conditions) or an older generation mechanical AVR (i.e., ball in-Cage) or any mechanical MVR should have a INR therapeutic range of 2.5 to 3.5 (target INR of 3).Rico GH, et al. Chest 2012, 141:7S-47SNishjoel RA, et al. [facility] 2017, 70: 252-289Performed By: #### 97791-9 ####[facility] HOSPITALIA [id number] [place] [address] [place] PT Coag (PPP) [Time]10.1 sNormal9.7-13.0[facility] on above:Order Comment: Specimen Type: BLOOD SPECIMENOrdering Facility: [facility] Address:[place] [address]Yozfrglli By: #### 28763-0 ####[facility] LABIA [id number] [place] [address] [place] AMERICAUS LEG VEIN DVT EBONY VAS LABon 75-39-6351LK LEG VEIN DVT EBONY VAS LABNormalCOhioHealth Southeastern Medical Center ANES POSTPROC EVALon 09-84-1267IOCU POSTPROC EVALNormalCOhioHealth Southeastern Medical CenterANES PRE-OPon 49-51-2484WMST PRE-OPNormalOhio State East Hospital ARTERIAL BLOOD GASESon 79-94-6778Ffrq deficit (BldA) [Moles/Vol]-3 mmol/LLow-2-0 [facility] on above:Order Comment: Specimen Type: ARTERIAL BLOOD SPECIMENOrdering Facility: [facility]ITALAddress: [address] [address]Performed By: #### ALLBG ####[facility] LABCLIA [id number] [place] [address] [place] AMERICACalcium.ionized (Bld) [Mass/Vol]1.13 mmol/LNormal 1.08-1.30[facility] on above:Order Comment: Specimen Type: ARTERIAL BLOOD SPECIMENOrdering Facility: [facility] Address: [address] [place], [place] [address]Performed By: #### ALLBG ####[facility] LABCLIA [id number] [address] STATES OF AMERICACalcium.ionized adjusted to pH 7.4 (BldA) [Moles/Vol]1.08 mmol/LNormal1.08-1.30[facility] on above:Order Comment: Specimen Type: ARTERIAL BLOOD SPECIMENOrdering Facility: [facility]ITALAddress: [address] [place] [address] Performed By: #### ALLBG ####[facility] LABCLIA [id number] [place] [address] [place] Carboxyhemoglobin (BldA) [Mass fraction]1.4 %Normal0.0-2.0[facility] on above:Order Comment: Specimen Type: ARTERIAL BLOOD SPECIMENOrdering Facility: [facility]ITALAddress: [address] [place] [address]Result Comment: Carboxyhemoglobin Reference Range for Smokers: 2.0-8.0%Performed By: #### ALLBG ####[facility] LABCLIA [id number] [address] [address] [place] AMERICACO2 (Bld) [Partial pressure]46 mm HdIzwfsr22-31FlgngyereOhio State East Hospital Comment on above:Order Comment: Specimen Type: ARTERIAL BLOOD SPECIMENOrdering Facility: [facility]ITALAddress: [address] [place] [address]Xgnxpmmbj By: #### ALLBG ####[facility] LABCLIA [id number] [facility] [place] [address] [place] CO2 [Moles/Vol]24 mmol/YOxaqcm23-83KjtwiieikOhio State East HospitalComment on above: Order Comment: Specimen Type: ARTERIAL BLOOD SPECIMENOrdering Facility: [facility]ITALAddress: [address] [place] [address] Performed By: #### ALLBG ####[facility] LABCLIA [id number] [place] [address] [place] AMERICACO2 adjusted to patient's actual temperature (Bld) [Partial pressure]46 unDuAtybcr74-03 [facility] HospitalComment on above:Order Comment: Specimen Type: ARTERIAL BLOOD SPECIMENOrdering Facility: [facility]ITALAddress: [address], [place] [address]Zztdhqqit By: #### ALLBG ####[facility] LABCLIA [id number] [place] [address] [place] AMERICAGlucose [Mass/Vol]119 mg/fLLrxf75-476PvbkcbawzOhio State East HospitalComment on above:Order Comment: Specimen Type: ARTERIAL BLOOD SPECIMENOrdering Facility: [facility]ITALAddress: [address], [place] [address]Yutvynrum By: #### ALLBG ####[facility] LABCLIA [id number] [address] [address] [place] AMERICAHCO3 (Bld) [Moles/Vol]23 mmol/ISoipic13-45UzaefggrnOhio State East HospitalComascension st. [facility] on above:Order Comment: Specimen Type: ARTERIAL BLOOD SPECIMENOrdering Facility: [facility]ITALAddress: [address], [place] [address]Qkfhyfisf By: #### ALLBG ####[facility] LABCLIA [id number] [place] [address] [place] AMERICAHematocrit (Bld) [Volume fraction]29.6 %Low39.0-51.0[facility] on above:Order Comment: Specimen Type: ARTERIAL BLOOD SPECIMENOrdering Facility: [facility]Address: [address] [place] [address]Zcxoxvowj By: #### ALLBG ####[facility] LABCLIA [id number] [place] [address] [place] AMERICAHemoglobin (Bld) [Mass/Vol]9.6 g/dLLow13.0-17.0[facility] on above:Order Comment: Specimen Type: ARTERIAL BLOOD SPECIMENOrdering Facility: [facility]ITALAddress: [address] [place] [address]Fqennzusc By: #### ALLBG ####[facility] LABIA [id number] [place] [address] [place] AMERICALactate [Moles/Vol]0.9 mmol/LNormal0.5-2.2CMercer County Community Hospital on above:Order Comment: Specimen Type: ARTERIAL BLOOD SPECIMENOrdering Facility: [facility]ITALAddress: [address] [place] [address]Dufthooha By: #### ALLBG ####[facility] LABCLIA [id number] [place] [address] [place] AMERICAMethemoglobin (Bld) [Mass fraction]1.0 %Normal0.0-1.5CMercer County Community Hospital on above:Order Comment: Specimen Type: ARTERIAL BLOOD SPECIMENOrdering Facility: [facility]ITALAddress: [address] [place] [address]Jhepkoidf By: #### ALLBG ####[facility] LABCLIA [id number] [address] [address] [place] AMERICAOxygen (Bld) [Partial pressure]122 mm ArAivv20-77QlokyyrlxWVUMedicine [facility] on above:Order Comment: Specimen Type: ARTERIAL BLOOD SPECIMENOrdering Facility: [facility]Address: [address] [place] [address]Nmmflnpip By: #### ALLBG ####[facility] LABCLIA [id number] [place] [address] [place] AMERICAOxygen adjusted to patient's actual temperature (Bld) [Partial pressure]122 ifCrCodj79-32NstuzgtzfWVUMedicine Barnesville Hospital on above:Order Comment: Specimen Type: ARTERIAL BLOOD SPECIMENOrdering Facility: [facility]Address: [address] [place] [address]Performed By: #### ALLBG ####[facility] LABCLIA [id number] [address] STATES OF AMERICAOxyhemoglobin (BldA) [Mass fraction]96 %Ckjbjx74-70OocmxvwazWVUMedicine [facility]ville Hospital on above:Order Comment: Specimen Type: ARTERIAL BLOOD SPECIMENOrdering Facility: [facility]ITALAddress: [address] [place] [address]Performed By: #### ALLBG ####[facility] LABCLIA [id number] [place] [address] [place] AMERICApH (Bld)7.31 [pH]Low 7.35-7.45[facility] on above:Order Comment: Specimen Type: ARTERIAL BLOOD SPECIMENOrdering Facility: [facility] Address: [address] [place] [address]Zgtiossgv By: #### ALLBG ####[facility] LABCLIA [id number] [place] [address] [place] AMERICApH adjusted to patient's actual temperature (Bld)7.31Low7.35-7.45[facility] on above: Order Comment: Specimen Type: ARTERIAL BLOOD SPECIMENOrdering Facility: [facility]ITALAddress: [address] [place] Performed By: #### ALLBG ####[facility] LABCLIA [id number] [place] [address] [place] AMERICAPotassium [Moles/Vol]4.5 mmol/LNormal3.5-5.0[facility] on above: Order Comment: Specimen Type: ARTERIAL BLOOD SPECIMENOrdering Facility: [facility]ITALAddress: [address] [place] [address] Performed By: #### ALLBG ####[facility] LABIA [id number] [place] [address] [place] AMERICASodium [Moles/Vol]139 mmol/FIhfwhc156-599SdfhtbnmtWVUMedicine Barnesville Hospital on above: Order Comment: Specimen Type: ARTERIAL BLOOD SPECIMENOrdering Facility: [facility]Address: [address] [place] [address] Performed By: #### ALLBG ####[facility] LABIA [id number] [place] [address] [place] AMERICABase excess Calc (Bld) [Moles/Vol]0 mmol/LNormal0-2CMercer County Community Hospital on above:Order Comment: Specimen Type: ARTERIAL BLOOD SPECIMENOrdering Facility: [facility]Address: [address] [place] Performed By: #### ALLBG ####[facility] LABCLIA [id number] [place] [address] [place] Calcium.ionized (Bld) [Mass/Vol]1.03 mmol/LLow1.08-1.30[facility] on above:Order Comment: Specimen Type: ARTERIAL BLOOD SPECIMENOrdering Facility: [facility]Address: [address] [place] [address]Suebgybqq By: #### ALLBG ####[facility] LABCLIA [id number] [place] [address] [place] AMERICACalcium.ionized adjusted to pH 7.4 (BldA) [Moles/Vol]1.01 mmol/LLow1.08-1.30[facility] on above:Order Comment: Specimen Type: ARTERIAL BLOOD SPECIMENOrdering Facility: [facility]Address: [address] [facility] [place] [address]Performed By: #### ALLBG ####[facility] LABIA [id number] [place] [address] [place] AMERICACarboxyhemoglobin (BldA) [Mass fraction]2.0 %Normal0.0-2.0[facility] on above:Order Comment: Specimen Type: ARTERIAL BLOOD SPECIMENOrdering Facility: [facility]ITALAddress: [address] [facility] [place] [address]Result Comment: Carboxyhemoglobin Reference Range for Smokers: 2.0-8.0%Performed By: #### ALLBG ####[facility] LABIA [id number] [place] [address] [place] AMERICACO2 (Bld) [Partial pressure]44 mm WbOsxavk29-02RrurnwqamWVUMedicine Barnesville Hospital on above:Order Comment: Specimen Type: ARTERIAL BLOOD SPECIMENOrdering Facility: [facility]ITALAddress: [address] [place] [address]Bvwytyyut By: #### ALLBG ####[facility] LABCLIA [id number] [place] [address] [place] AMERICACO2 [Moles/Vol]26 mmol/NVnsxgb86-33QgmmyckswWVUMedicine [facility] Hospital on above:Order Comment: Specimen Type: ARTERIAL BLOOD SPECIMENOrdering Facility: [facility]Address: [address] [place] [address]Ntgeetqdj By: #### ALLBG ####[facility] LABIA [id number] [address] [place], [place] [address] [place] AMERICACO2 adjusted to patient's actual temperature (Bld) [Partial pressure]44 rwPbWbgayj56-55DxcajehbcOhio State East Hospital Comment on above:Order Comment: Specimen Type: ARTERIAL BLOOD SPECIMENOrdering Facility: [facility]Address: [address] [place] [address]Eearffypy By: #### ALLBG ####[facility] LABCLIA [id number] [place] [address] [place] Glucose [Mass/Vol]101 mg/oOZfsgji74-782BzttdegebOhio State East HospitalComascension st. [facility] on above:Order Comment: Specimen Type: ARTERIAL BLOOD SPECIMENOrdering Facility: [facility]Address: [address] [place] [address] Performed By: #### ALLBG ####[facility] LABCLIA [id number] [place] [address] [place] AMERICAHCO3 (Bld) [Moles/Vol]24 mmol/LOetupt36-31XkembclbbSumma Health Akron Campusment on above:Order Comment: Specimen Type: ARTERIAL BLOOD SPECIMENOrdering Facility: [facility]Address: [address] [place] [address]Akgpkwkbf By: #### ALLBG ####[facility] LABCLIA [id number] [place] [address] [place] AMERICAHematocrit (Bld) [Volume fraction]24.5 %Low39.0-51.0[facility] on above: Order Comment: Specimen Type: ARTERIAL BLOOD SPECIMENOrdering Facility: [facility]Address: [address] [place], [place] Performed By: #### ALLBG ####[facility] LABCLIA [id number] [place] [address] [place] AMERICAHemoglobin (Bld) [Mass/Vol]7.9 g/dLLow13.0-17.0[facility] on above: Order Comment: Specimen Type: ARTERIAL BLOOD SPECIMENOrdering Facility: [facility]Address: [address], [place], [place] Performed By: #### ALLBG ####[facility] LABCLIA [id number] [place] [address] [place] [facility] ATR[facility]UM MEDICAL CENTERLactate [Moles/Vol]0.7 mmol/LNormal0.5-2.2CMercer County Community Hospital on above: Order Comment: Specimen Type: ARTERIAL BLOOD SPECIMENOrdering Facility: [facility]Address: [address] [place] [address] Performed By: #### ALLBG ####[facility] LABCLIA [id number] [address] STATES OF AMERICAMethemoglobin (Bld) [Mass fraction]0.9 %Normal0.0-1.5CMercer County Community Hospital on above:Order Comment: Specimen Type: ARTERIAL BLOOD SPECIMENOrdering Facility: [facility]ITALAddress: [address], [place] [address] Performed By: #### ALLBG ####[facility] LABCLIA [id number] [place] [address] [place] AMERICAOxygen (Bld) [Partial pressure]144 mm HlEvci92-73YdpopgsobWVUMedicine Barnesville Hospital on above: Order Comment: Specimen Type: ARTERIAL BLOOD SPECIMENOrdering Facility: [facility]Address: [address] [place], [place] [address] Performed By: #### ALLBG ####[facility] LABCLIA [id number] [place] [address] [place] AMERICAOxygen adjusted to patient's actual temperature (Bld) [Partial pressure]144 tkClRxdq96-93 [facility] on above:Order Comment: Specimen Type: ARTERIAL BLOOD SPECIMENOrdering Facility: [facility]ITALAddress: [address] [place] [address]Jkfufwosk By: #### ALLBG ####[facility] LABCLIA [id number] [place] [address] [place] AMERICAOxyhemoglobin (BldA) [Mass fraction]96 %Normal 95-98[facility] on above:Order Comment: Specimen Type: ARTERIAL BLOOD SPECIMENOrdering Facility: [facility]ITALAddress: [address] [place] [address]Performed By: #### ALLBG ####[facility] LABCLIA [id number] [place] [address] [place] AMERICApH (Bld)7.36 [pH]Normal7.35-7.45[facility] on above:Order Comment: Specimen Type: ARTERIAL BLOOD SPECIMENOrdering Facility: [facility]ITALAddress: [address] [place] [address]Performed By: #### ALLBG ####[facility] LABCLIA [id number] [place] [address] [place] AMERICApH adjusted to patient's actual temperature (Bld)7.36Normal 7.35-7.45[facility] on above:Order Comment: Specimen Type: ARTERIAL BLOOD SPECIMENOrdering Facility: [facility] Address: [address] [place] [address]Performed By: #### ALLBG ####[facility] LABCLIA [id number] [place] [address] [place] AMERICAPotassium [Moles/Vol]4.3 mmol/L Normal3.5-5.0[facility] on above:Order Comment: Specimen Type: ARTERIAL BLOOD SPECIMENOrdering Facility: [facility] Address: [address] [place] [address]Zjacfhygo By: #### ALLBG ####[facility] LABCLIA [id number] [place] [address] [place] AMERICASodium [Moles/Vol]140 mmol/LNormal 136-144[facility] on above:Order Comment: Specimen Type: ARTERIAL BLOOD SPECIMENOrdering Facility: [facility]ITALAddress: [address], [place] [address]Zpeyqnuyl By: #### ALLBG ####[facility] LABCLIA [id number] [address] [address] [place] AMERICABRIEF OP NOTon 19-26-3802EXUFJ OP NOTNormal [facility] HospitalBacteria Spec Anaerobe Culton 97-26-6490Fwvvzefs identified Anaer cx Nom (Unsp spec)NegativeNoalCOhioHealth Southeastern Medical Center Comment on above:Performed By: #### 54239-5, 32376-2, 635-3 ####[facility] LABCLIA [id number] [address] [address] [place] AMERICABacteria identified Anaer cx Nom (Unsp spec)Abnormal [facility] HospitalComment on above:Performed By: #### 26238-9, 635-3, 37648-6 ####[facility] LABCLIA [id number] [address] [address] [place] AMERICABacteria identified Anaer cx Nom (Unsp spec)NegativeNormalCOhioHealth Southeastern Medical CenterComment on above:Performed By: #### 40561-7, 55002-7, 635-3 ####[facility] LABCLIA [id number] [address] [address] [place] AMERICABacteria identified Anaer cx Nom (Unsp spec)NegativeNormal [facility] HospitalComment on above:Performed By: #### 31005-5, 96247-2, 635-3 ####[facility] LABCLIA [id number] [address] [address] [place] AMERICABacteria identified Anaer cx Nom (Unsp spec)NegativeNormalCOhioHealth Southeastern Medical CenterComment on above:Performed By: #### 83177-6, 82818-9, 635-3 ####[facility] LABCLIA [id number] [address] [address] [place] Bacteria Tiss Culton 23-86-4334Pxobaerz identified Cx Nom (Tiss)CULTURE, TISSUE: No growth GRAM STAIN: No organisms seen No Polymorphonuclear LeukocytesNormalCleveland [facility] ClevelandComment on above: Performed By: #### 61932-8, 20741-2, 635-3 ####[facility]CLIA [id number] [address] [address] [place] identified Cx Nom (Tiss)CULTURE, TISSUE: No growth GRAM STAIN: No organisms seen Rare Polymorphonuclear leukocytesNormalCleveland [facility] ClevelandComment on above:Performed By: #### 13807-6, 635-3, 88386-6 ####[facility]CLIA [id number] [address] [address] [place] identified Cx Nom (Tiss)CULTURE, TISSUE: No growth GRAM STAIN: No organisms seen No Polymorphonuclear LeukocytesNormalCleveland [facility] ClevelandComment on above: Performed By: #### 64034-8, 67569-2, 635-3 ####[facility]CLIA [id number] [address] [address] [place] identified Cx Nom (Tiss)CULTURE, TISSUE: No growth GRAM STAIN: No organisms seen No Polymorphonuclear LeukocytesNormalC[place] [facility] ClevelandComment on above: Performed By: #### 91690-6, 55733-0, 635-3 ####[facility] LABCLIA [id number] [address] [address] [place] OF AMERICABacteria identified Cx Nom (Tiss)CULTURE, TISSUE: No growth GRAM STAIN: No organisms seen No Polymorphonuclear LeukocytesNormalCleveland [facility] ClevelandComment on above: Performed By: #### 90694-2, 76546-8, 635-3 ####[facility] LABCLIA [id number] [address] [address] [place] OF AMERICACASE MANAGEMon 33-29-5866HTJX MANAGEMNormalOhio State East HospitalCB panel Auto (Bld)on 62-90-9847Qhpmvdznffj distribution width (RBC) [Ratio]15.9 % High11.5-15.0[facility] on above:Order Comment: Specimen Type: BLOOD SPECIMENOrdering Facility: [facility] Address:[address] [place], [place] [address]Performed By: #### 19058-1 ####[facility] LABIA [id number] [address] STATES OF [facility] MEDICAL CENTERHematocrit (Bld) [Volume fraction]31.1 %Low 39.0-51.0[facility] on above:Order Comment: Specimen Type: BLOOD SPECIMENOrdering Facility: [facility] Address:[address] [place], [place] [address]Performed By: #### 75813-1 ####[facility] LABIA [id number] [address] STATES OF AMERICAHemoglobin (Bld) [Mass/Vol]10.1 g/dLLow13.0-17.0 [facility] on above:Order Comment: Specimen Type: BLOOD SPECIMENOrdering Facility: [facility] Address:[address] [place], [place] [address]Performed By: #### 61046-8 ####[facility] LABIA [id number] [place] [address] [place] AMERICAMCH (RBC) [Entitic mass]27.1 dkSqvamt02.0-34.0[facility] on above:Order Comment: Specimen Type: BLOOD SPECIMENOrdering Facility: [facility] Address:[address] [place], [place] [address]Performed By: #### 36363-4 ####[facility] LABIA [id number] [place] [address] [place] MCHC (RBC) [Mass/Vol]32.5 g/kCTtpacy74.5-36.0[facility] on above:Order Comment: Specimen Type: BLOOD SPECIMENOrdering Facility: [facility] Address:[address] [place] [address] Performed By: #### 05270-6 ####[facility] LABIA [id number] [place] [address] [place] MCV (RBC) [Entitic vol]83.4 dMXdyxnf30.0-100.0[facility] on above:Order Comment: Specimen Type: BLOOD SPECIMENOrdering Facility: [facility] Address:[address] [place] [address] Performed By: #### 81745-5 ####[facility] LABIA [id number] [place] [address] [place] Nucleated RBC (Bld) [#/Vol]10*3/uLNormal<0.01[facility] on above:Order Comment: Specimen Type: BLOOD SPECIMENOrdering Facility: [facility] Address:[address] [place] [address] Performed By: #### 72520-6 ####[facility] H[facility]PITALIA [id number] [place] [address] [place] Platelet mean volume (Bld) [Entitic vol]10.0 fLNormal9.0-12.7CMercer County [facility] on above:Order Comment: Specimen Type: BLOOD SPECIMENOrdering Facility: [facility] Address:[address] [place] [address]Performed By: #### 82078-3 ####[facility] LABCLIA [id number] [place] [address] [place] Platelets (Bld) [#/Vol]313 10*3/cVJbsfsd332-445UftffdzpaWVUMedicine [facility] on above:Order Comment: Specimen Type: BLOOD SPECIMENOrdering Facility: [facility] Address:[address] [place] [address] Performed By: #### 88486-5 ####[facility] LABCLIA [id number] [place] [address] [place] RBC (Bld) [#/Vol]3.73 10*6/uLLow4.20-6.00[facility] on above:Order Comment: Specimen Type: BLOOD SPECIMENOrdering Facility: [facility] Address:[address] [place], [place] [address]Performed By: #### 78336-5 ####[facility] LABIA [id number] [place] [address] [place] AMERICAWBC (Bld) [#/Vol]18.85 10*3/uLHigh3.70-11.00[facility] on above:Order Comment: Specimen Type: BLOOD SPECIMENOrdering Facility: [facility] Address:[address] [place], [place] [address]Performed By: #### 49259-2 ####[facility] LABIA [id number] [place] [address] [place] AMERICAErythrocyte distribution width (RBC) [Ratio]17.4 %High11.5-15.0[facility] on above:Order Comment: Specimen Type: BLOOD SPECIMENOrdering Facility: [facility] Address:[address] [place], [place] [address]Performed By: #### 17290-0 ####[facility] LABIA [id number] [place] [address] [place] AMERICAHematocrit (Bld) [Volume fraction]25.0 %Low39.0-51.0[facility] on above: Order Comment: Specimen Type: BLOOD SPECIMENOrdering Facility: [facility] Address:[address] [place], [place] [address]Performed By: #### 69820-7 ####[facility] LABCLIA [id number] [address] ST[address]ETHemoglobin (Bld) [Mass/Vol]8.0 g/dLLow13.0-17.0[facility] on above:Order Comment: Specimen Type: BLOOD SPECIMENOrdering Facility: [facility] Address:[address] [place], [place] [address]Performed By: #### 87640-4 ####[facility] LABCLIA [id number] [address] (RBC) [Entitic mass]26.0 rcRzyhct56.0-34.0[facility] Campusment on above:Order Comment: Specimen Type: BLOOD SPECIMENOrdering Facility: [facility] Address:[address] [place] [address]Performed By: #### 86415-1 ####[facility] LABCLIA [id number] [address]ETMCHC (RBC) [Mass/Vol] 32.0 g/sWScfjws42.5-36.0[facility] on above:Order Comment: Specimen Type: BLOOD SPECIMENOrdering Facility: [facility] Address:[address] [place] [address]Performed By: #### 60781-7 ####[facility] LABCLIA [id number] [address] (RBC) [Entitic vol]81.2 qGKbplpb47.0-100.0[facility] on above:Order Comment: Specimen Type: BLOOD SPECIMENOrdering Facility: [facility] Address:[address] [place] [address]Performed By: #### 29326-1 ####[facility] LABCLIA [id number] [address] [address] [place] OF AMERICANucleated RBC (Bld) [#/Vol]10*3/uLNormal<0.01[facility] on above:Order Comment: Specimen Type: BLOOD SPECIMENOrdering Facility: [facility] Address:[address] [place] [address]Performed By: #### 94176-1 ####[facility] LABIA [id number] [place] [address] [place] AMERICAPlatelet mean volume (Bld) [Entitic vol]10.7 fLNormal9.0-12.7CMercer County Community Hospital on above:Order Comment: Specimen Type: BLOOD SPECIMENOrdering Facility: [facility] Address:[address] [place], [place] [address]Performed By: #### 50916-5 ####[facility] LABIA [id number] [place] [address] [place] AMERICAPlatelets (Bld) [#/Vol]304 10*3/cJPkhjzw649-988KvelhzmgrWVUMedicine [facility] on above:Order Comment: Specimen Type: BLOOD SPECIMENOrdering Facility: [facility] Address:[address] [place] [phone] By: #### 80280-3 ####[facility] LABIA [id number] [place] [address] [place] AMERICARBC (Bld) [#/Vol]3.08 10*6/uLLow4.20-6.00[facility] on above:Order Comment: Specimen Type: BLOOD SPECIMENOrdering Facility: [facility] Address:[address] [place] [phone] By: #### 29251-6 ####[facility] LABIA [id number] [place] [address] [place] AMERICAWBC (Bld) [#/Vol]16.82 10*3/uL High3.70-11.00[facility] on above:Order Comment: Specimen Type: BLOOD SPECIMENOrdering Facility: [facility] Address:[address] [place], [place] [address]Performed By: #### 92570-3 ####[facility] LABCLIA [id number] [place] [address] [place] AMERICACONSULT PROGon 25-03-5402LAMVAML PROGNormal [facility] East HospitalCONLT PROGNormalKettering Health Springfield metabolic 2000 panelon 06-97-3548Ibdayil [Mass/Vol]2.0 g/dLLow 3.9-4.9CMercer County Community Hospital on above:Order Comment: Specimen Type: BLOOD SPECIMENOrdering Facility: [facility] Address:[address] [place], [place] [address]Performed By: #### 33703-9, 2777-1, 82650-4 ####[facility] LABCLIA [id number] [address] [place] AMERICAALP [Catalytic activity/Vol]286 U/JKlgb34-478DjiuztnecWVUMedicine [facility] Hospital on above:Order Comment: Specimen Type: BLOOD SPECIMENOrdering Facility: [facility] Address:[address] [place], [place] [address]Performed By: #### 57395-1, 2777, 03205-7 ####[facility] LABCLIA [id number][place] [address] [place] AMERICAALT [Catalytic activity/Vol]40 U/YNugktq82-37PhwypkoqkWVUMedicine [facility] Hospital on above:Order Comment: Specimen Type: BLOOD SPECIMENOrdering Facility: [facility] Address:[address] [place], [place] [address]Performed By: #### 14279-3, 2777-1, 40243-8 ####[facility] LABCLIA [id number][place] [address] [place] AMERICAAnion gap [Moles/Vol]9 mmol/L Normal9-18[facility] on above:Order Comment: Specimen Type: BLOOD SPECIMENOrdering Facility: [facility] Address:[address] [place], [place] [address]Performed By: #### 16080-8, 2777-1, 18145-0 ####[facility] LABCLIA [id number], [place] [address] [place] AMERICAAST [Catalytic activity/Vol]47 U/YPhfr91-04NgpkuvnvkWVUMedicine [facility] Hospital on above:Order Comment: Specimen Type: BLOOD SPECIMENOrdering Facility: [facility] Address:[address] [place], [place] [address]Performed By: #### 33825-0, 2777-1, 72988-3 ####[facility] LABCLIA [id number] STATES OF AMERICABilirubin [Mass/Vol]0.4 mg/dL Normal0.2-1.3CMercer County Community Hospital on above:Order Comment: Specimen Type: BLOOD SPECIMENOrdering Facility: [facility] Address:[address] [place], [place] [address]Performed By: #### 28096-6, 2777-1, 17562-1 ####[facility] LABCLIA [id number] STATES OF AMERICACalcium [Mass/Vol]7.0 mg/dLLow 8.5-10.2ClevelKing's Daughters Medical Center [place] on above:Order Comment: Specimen Type: BLOOD SPECIMENOrdering Facility: [facility] Address:[address] [place], [place] [address]Performed By: #### 26488-9, 2777-1, 46837-7 ####[facility] LABCLIA [id number] AVENUEDESK [place]41[place]VMWAEPR, [place] [address] [place] AMERICAChloride [Moles/Vol]105 mmol/L Nuxsiq64-398IeydyjcjfWVUMedicine [facility] Hospital on above:Order Comment: Specimen Type: BLOOD SPECIMENOrdering Facility: [facility] Address:[address] [place], [place] [address]Performed By: #### 05641-2, 2777-1, 50734-1 ####[facility] LABCLIA [id number] VIL[place] [address] [place] AMERICACO2 [Moles/Vol]22 mmol/LNormal 22-30[facility] on above:Order Comment: Specimen Type: BLOOD SPECIMENOrdering Facility: [facility] Address:[address] [place], [place] [address]Performed By: #### 91937-0, 2777-1, ####[facility] LABCLIA [id number][place] [address] [place] AMERICACreatinine [Mass/Vol]0.95 mg/dL Normal0.73-1.22[facility] on above:Order Comment: Specimen Type: BLOOD SPECIMENOrdering Facility: [facility] Address:[address] [place], [place] [address]Performed By: #### 41550-8, 2777, ####[facility] LABCLIA [id number][place] [address] [place] AMERICAESTIMATED GLOMERULAR FILTRATION RATE92 mL/min/1.73m???Normal>=60[facility] on above:Order Comment: Specimen Type: BLOOD SPECIMENOrdering Facility: [facility] Address:[address] [place], [place] [address]Result Comment: Estimated Glomerular Filtration Rate (eGFR) is calculated using the 2020 CKD-EPI creatinine equation. This equation utilizes serum creatinine, sex, and age as parameters. The creatinine assay has traceable calibration to isotope dilution-mass spectrometry. Refer to KDIGO guidelines for clinical interpretation. In patients with unstable renal function, e.g. those with acute kidney injury, the eGFR may not accurately reflect actual GFR.Performed By: #### 02586-7, 27705-14, ####[facility] LABIA [id number] VILLE [address] [place] Glucose [Mass/Vol]105 mg/wOXhke53-96JmcabqgwcWVUMedicine [facility] Hospital on above: Order Comment: Specimen Type: BLOOD SPECIMENOrdering Facility: [facility] Address:[address] [place], [place] [address]Result Comment: The [place] Diabetes Association (ADA) provides guidance for cutoff values for fast ing glucose and random glucose. The ADA defines fasting as no caloric intake for at least 8 hours. Fasting plasma glucose results between 100 to 125 mg/dL indicate increased risk for diabetes (prediabetes).Fasting plasma glucose results greater than or equal to 126 mg/dL meet the criteria for diagnosis of diabetes. In the absence of unequivocal hyperglycemia, results should be confirmed by repeattesting. In a patient with classic symptoms of hyperglycemia or hyperglycemic crisis, random plasmaglucose results greater than or equal to 200 mg/dL meet the criteria for diagnosis of diabetes.Reference: Standards of Medical Care in Diabetes 2016, [place] [employer] Association. Diabetes Care. 2016.39(Suppl 1).Performed By: #### 51530-4, 2776-11, ####[facility] LABIA [id number] VILLE [address] [place] AMERICAPotassium [Moles/Vol]4.4 mmol/LNormal3.7-5.1 [facility] on above:Order Comment: Specimen Type: BLOOD SPECIMENOrdering Facility: [facility] Address:[address] [place] [phone] By: #### 26336-4, 27705-14, ####[facility] LABIA [id number] [address] [place] AMERICAProtein [Mass/Vol]5.8 g/dLLow 6.3-8.0[facility] ClevelandComment on above:Order Comment: Specimen Type: BLOOD SPECIMENOrdering Facility: [facility] Address:[address] [place], [place] [address]Performed By: #### 93983-7, 277-1, ####[facility] LABCLIA [id number][place] [address] [place] AMERICASodium [Moles/Vol]136 mmol/L Hswpym579-396NitcimeohWVUMedicine Barnesville Hospital on above:Order Comment: Specimen Type: BLOOD SPECIMENOrdering Facility: [facility] Address:[address] [place], [place] [address]Performed By: #### 21862-4, 277-1, ####[facility] LABCLIA [id number], [place] [address] [place] AMERICAUrea nitrogen [Mass/Vol]18 mg/dL Normal9-24[facility] State East HospitalComment on above:Order Comment: Specimen Type: BLOOD SPECIMENOrdering Facility: [facility] Address:[address] [place], [place] [address]Performed By: #### 49901-6, 277-1, ####[facility] LABIA [id number][place] [address] [place] AMERICAMagnesium SerPl-mCncon 01-28-2023 Magnesium [Mass/Vol]1.9 mg/dLNormal1.7-2.3CMercer County Community Hospital on above:Order Comment: Specimen Type: BLOOD SPECIMENOrdering Facility: [facility] Address:[address] [place], [place] [address]Performed By: #### 53215-2, 27705-14, ####[facility] LABCLIA [id number][place] [address] [place] Microorganism Spec Culton 31-91-6670Dkrfvzgvlkfqe identified Cx Nom (Unsp spec) CULTURE, FUNGAL: No Fungus isolated after 28 days FUNGAL SMEAR: No fungus seenNoKindred Hospital LimaComment on above:Performed By: #### 65198-6, 46561-1, 635-3 ####[facility] LABCLIA [id number] [address] [address] [place] Microorganism identified Cx Nom (Unsp spec)CULTURE, AFB: No Acid Fast Bacilli isolated after 42 days AFB STAIN: No acid fast bacilli seen by flurochrome stainNoKindred Hospital Lima Comment on above:Performed By: #### 54976-0, 01757-6, 635-3 ####[facility] LABCLIA [id number] [address] [address] [place] AMERICAMicroorganism identified Cx Nom (Unsp spec)CULTURE, FUNGAL: No Fungus isolated after 28 days FUNGAL SMEAR: No fungus seenNormTrumbull Memorial HospitalComment on above:Performed By: #### 21091-3, 635-3, 63900-7 ####[facility] LABCLIA [id number] [address] [address] [place] Microorganism identified Cx Nom (Unsp spec)CULTURE, AFB: No Acid Fast Bacilli isolated after 42 days AFB STAIN: No acid fast bacilli seen by flurochrome stainGood Samaritan Hospital Comment on above:Performed By: #### 81412-8, 635-3, 31176-8 ####[facility] LABCLIA [id number] [address] [address] [place] AMERICAMicroorganism identified Cx Nom (Unsp spec)CULTURE, FUNGAL: No Fungus isolated after 28 days FUNGAL SMEAR: No fungus seenNoKindred Hospital LimaComment on above:Performed By: #### 60884-5, 45296-4, 635-3 ####[facility] LABCLIA [id number] [address] [address] [place] Microorganism identified Cx Nom (Unsp spec)CULTURE, AFB: No Acid Fast Bacilli isolated after 42 days AFB STAIN: No acid fast bacilli seen by flurochrome stainNoKindred Hospital Lima Comment on above:Performed By: #### 54112-3, 04549-7, 635-3 ####[facility] LABCLIA [id number] [address] [address] [place] OF AMERICAMicroorganism identified Cx Nom (Unsp spec)CULTURE, FUNGAL: No Fungus isolated after 28 days FUNGAL SMEAR: No fungus seenNormTrumbull Memorial HospitalComment on above:Performed By: #### 39700-9, 93212-1, 635-3 ####[facility] LABCLIA [id number] [address] [address] [place] Microorganism identified Cx Nom (Unsp spec)CULTURE, AFB: No Acid Fast Bacilli isolated after 42 days AFB STAIN: No acid fast bacilli seen by flurochrome stainNoKindred Hospital Lima Comment on above:Performed By: #### 58452-0, 11506-5, 635-3 ####[facility] LABCLIA [id number] [address] [address] [place] [facility] CENTERMicroorganism identified Cx Nom (Unsp spec)CULTURE, FUNGAL: No Fungus isolated after 28 days FUNGAL SMEAR: No fungus seenNoKindred Hospital LimaComment on above:Performed By: #### 32588-4, 36546-2, 635-3 ####[facility] LABCLIA [id number] [address] [address] [place] Microorganism identified Cx Nom (Unsp spec)CULTURE, AFB: No Acid Fast Bacilli isolated after 42 days AFB STAIN: No acid fast bacilli seen by flurochrome stainGood Samaritan Hospital Comment on above:Performed By: #### 67424-7, 94342-8, 635-3 ####[facility] LABCLIA [id number] [address] [address] [place] AMERICAOPERATIVE NOon 18-18-6235ZFTPBIWLB NONormalOhio State East HospitalPT panel Coag (PPP)on 03-24-4699QCU Coag (PPP) [Relative time] 1.0 {INR}Normal0.9-1.3CMercer County Community Hospital on above:Order Comment: Specimen Type: BLOOD SPECIMENOrdering Facility: [facility] Address:[place] [address]Oflqxo Comment: Vitamin K Antagonist (VKA) Therapeutic Range: INR 2 to 3 (Target INR of 2.5)Note: For patients treated with VKA drugs, such as warfarin, the [place] [employer] 2012 Guideline recommends a therapeutic INR range of 2 to 3 (target INR of 2.5). This recommendation includes high-risk patients with antiphospholipid syndrome with previous arterial or venous thromboembolism, current-generation mechanical or bioprosthetic aortic heart valve replacement.Note: Patients with mechanical aortic valve replacement and additional risk factors for thromboembolic events (atrialfibrillation, previous thromboembolism, LV dysfunction, hypercoagulable conditions) or an older gene ration mechanical AVR (i.e., ball in-Cage) or any mechanical MVR should have a INR therapeutic range of 2.5 to 3.5 (target INR of 3).Sabinatt GH, et al. Chest 2012, 141:7S-47SNishimura RA, et al. [facility] 2017, 70: 252-289Performed By: #### 42580-2, 89700-4 ####[facility] LABCLIA [id number] [place] AVENUEKAISER FOUNDATION HOSPITALK [place] [id number] [place] [facility] MEDICAL CENTERPT Coag (PPP) [Time] 9.9 sNormal9.7-13.0[facility] on above:Order Comment: Specimen Type: BLOOD SPECIMENOrdering Facility: [facility] Address:[place] [address]Xnignexro By: #### 04182-8, 94694-2 ####[facility] LABCLIA [id number] [place]EDES[place] [id number] [place] AMERICAPhosphate SerPl-mCncon 61-12-9378Frbicstou [Mass/Vol]3.0 mg/dLNormal2.7-4.8COhioHealth Southeastern Medical Center Comment on above:Order Comment: Specimen Type: BLOOD SPECIMENOrdering Facility: [facility] Address:[address] [place] [address] Performed By: #### 11676-8, 2777-1, 88477-7 ####[facility] LABCLIA [id number] [address] [place] AMERICATHERAPY NTon 66-52-9802YMXQTMG NTNormalCOhioHealth Southeastern Medical CenteraPTT PPP on 77-71-6642yEUF Coag (PPP) [Time]23.3 dKwssdv87.0-32.4COhioHealth Southeastern Medical CenterComment on above:Order Comment: Specimen Type: BLOOD SPECIMENOrdering Facility: [facility] Address:[address] [place], [place] [address]Performed By: #### 10130-0, 65807-9 ####[facility] LABIA [id number] [place] [address] [place] AMERICACASE MANAGEMon 01-27-0342UQWG MANAGEMNormalOhio State East HospitalCB panel Auto (Bld)on 45-89-9500Adbxogsdpud distribution width (RBC) [Ratio]17.2 % High11.5-15.0[facility] State East HospitalComment on above:Order Comment: Specimen Type: BLOOD SPECIMENOrdering Facility: [facility] Address:[address] [place], [place] [address]Performed By: #### 15210-4 ####[facility] LABIA [id number] [address] STATES OF [facility] MEDICAL CENTERHematocrit (Bld) [Volume fraction]27.1 %Low 39.0-51.0[facility] on above:Order Comment: Specimen Type: BLOOD SPECIMENOrdering Facility: [facility] Address:[address] [place], [place] [address]Performed By: #### 67638-4 ####[facility] LABCLIA [id number] [address] STATES OF [facility] MEDICAL CENTERHemoglobin (Bld) [Mass/Vol]8.9 g/dLLow13.0-17.0 [facility] on above:Order Comment: Specimen Type: BLOOD SPECIMENOrdering Facility: [facility] Address:[address] [place], [place] [address]Performed By: #### 79237-8 ####[facility] LABIA [id number] [address] STATES OF [facility] CENTERMCH (RBC) [Entitic mass]26.3 jxRqnzto92.0-34.0[facility] on above:Order Comment: Specimen Type: BLOOD SPECIMENOrdering Facility: [facility] Address:[address] [place], [place] [id number] By: #### [id number] ####[facility] LABIA [id number] [address] [place] MCHC (RBC) [Mass/Vol]32.8 g/qFUxozec59.5-36.0[facility] on above:Order Comment: Specimen Type: BLOOD SPECIMENOrdering Facility: [facility] Address:[address] [place] [address] Performed By: #### [id number] ####[facility] LABIA [id number] [place] [address] [place] MCV (RBC) [Entitic vol]79.9 fLLow80.0-100.0[facility] on above:Order Comment: Specimen Type: BLOOD SPECIMENOrdering Facility: [facility] Address:[address] [place] [address]Performed By: #### [id number] ####[facility] LABIA [id number] [place] [address] [place] AMERICANucleated RBC (Bld) [#/Vol]10*3/uLNormal<0.01[facility] on above:Order Comment: Specimen Type: BLOOD SPECIMENOrdering Facility: [facility] Address:[address] [place] [address]Performed By: #### 36004-1 ####[facility] LABCLIA [id number] [place] [address] [place] OF AMERICAPlatelet mean volume (Bld) [Entitic vol]10.5 fLNormal9.0-12.7CMercer County Community Hospital on above:Order Comment: Specimen Type: BLOOD SPECIMENOrdering Facility: [facility] Address:[address] [place], [place] [address]Performed By: #### 04847-2 ####[facility] LABCLIA [id number] [address] STATES OF AMERICAPlatelets (Bld) [#/Vol]235 10*3/hSPhejua191-678LemayhikwWVUMedicine Barnesville Hospital on above:Order Comment: Specimen Type: BLOOD SPECIMENOrdering Facility: [facility] Address:[address] [place] [address]Performed By: #### 57930-6 ####[facility] LABCLIA [id number] [address] STATES OF AMERICARBC (Bld) [#/Vol]3.39 10*6/uLLow4.20-6.00[facility] on above:Order Comment: Specimen Type: BLOOD SPECIMENOrdering Facility: [facility] Address:[address] [place] [address]Performed By: #### 63052-3 ####[facility] LABCLIA [id number] [place] [address] [place] AMERICAWBC (Bld) [#/Vol]20.39 10*3/uL High3.70-11.00[facility] on above:Order Comment: Specimen Type: BLOOD SPECIMENOrdering Facility: [facility] Address:[address] [place], [place] [address]Performed By: #### 57168-1 ####[facility] LABCLIA [id number] [address] [address] [place] OF AMERICACONSULT PROGon 49-63-7533PPICETB PROGNormal [facility] HospitalCONLT PROGNormalKettering Health Springfield metabolic 2000 panelon 28-43-2787Dtwbctg [Mass/Vol]1.8 g/dLLow 3.9-4.9CMercer County Community Hospital on above:Order Comment: Specimen Type: BLOOD SPECIMENOrdering Facility: [facility] Address:[address] [place] [address]Performed By: #### 40953-7, 27705-14, ####[facility] LABCLIA [id number] VILLE [id number] [place] OF AMERICAALP [Catalytic activity/Vol]337 U/BZvwl82-935HqoodufarWVUMedicine Barnesville Hospital on above:Order Comment: Specimen Type: BLOOD SPECIMENOrdering Facility: [facility] Address:[address] [place] [address]Hzpptekkz By: #### 97355-6, 27705-14, ####[facility] LABCLIA [id number] VILLE [id number] [place] AMERICAALT [Catalytic activity/Vol]29 U/OPtpygm83-20HstpjzqjrWVUMedicine [facility]ville Hospital on above:Order Comment: Specimen Type: BLOOD SPECIMENOrdering Facility: [facility] Address:[address] [place] [address]Performed By: #### 40534-5, 277-1, 01979-1 ####[facility] LABCLIA [id number] [address] [place] OF AMERICAAnion gap [Moles/Vol]12 mmol/L Normal9-18[facility] on above:Order Comment: Specimen Type: BLOOD SPECIMENOrdering Facility: [facility] Address:[address] [place], [place] [address]Performed By: #### 15413-3, 2776-11, ####[facility] LABCLIA [id number] [place] [address] [place] AMERICAAST [Catalytic activity/Vol]35 U/HIbozqd32-16TfdgkzimcWVUMedicine Barnesville Hospital on above:Order Comment: Specimen Type: BLOOD SPECIMENOrdering Facility: [facility] Address:[address] [place], [place] [address]Performed By: #### 41978-3, 2776-11, ####[facility] LABCLIA [id number] [place] [address] [place] AMERICABilirubin [Mass/Vol]0.5 mg/dL Normal0.2-1.3CMercer County Community Hospital on above:Order Comment: Specimen Type: BLOOD SPECIMENOrdering Facility: [facility] Address:[address] [place], [place] [address]Performed By: #### 97079-2, 2776-11, ####[facility] LABCLIA [id number] [address] [place] AMERICACalcium [Mass/Vol]6.9 mg/dLLow 8.5-10.2CMercer County Community Hospital on above:Order Comment: Specimen Type: BLOOD SPECIMENOrdering Facility: [facility] Address:[address] [place], [place] [address]Performed By: #### 68517-7, 2776-11, ####[facility] LABCLIA [id number] [place] [id number] [place] OF AMERICAChloride [Moles/Vol]102 mmol/L Azrtil04-547YogwmgwpaWVUMedicine Barnesville Hospital on above:Order Comment: Specimen Type: BLOOD SPECIMENOrdering Facility: [facility] Address:[address] [place], [place] [address]Performed By: #### 05501-0, 2776-11, ####[facility] LABCLIA [id number][place] [address] [place] AMERICACO2 [Moles/Vol]21 mmol/OWdo89-13 [facility] on above:Order Comment: Specimen Type: BLOOD SPECIMENOrdering Facility: [facility] Address:[address] [place], [place] [address]Performed By: #### 05937-7, 2776-11, ####[facility] LABCLIA [id number][place] [address] [place] AMERICACreatinine [Mass/Vol]0.87 mg/dL Normal0.73-1.22[facility] on above:Order Comment: Specimen Type: BLOOD SPECIMENOrdering Facility: [facility] Address:[address] [place], [place] [address]Performed By: #### 82884-8, 2776-11, ####[facility] LABCLIA [id number][place] [address] [place] AMERICAESTIMATED GLOMERULAR FILTRATION RATE99 mL/min/1.73m???Normal>=60[facility] on above:Order Comment: Specimen Type: BLOOD SPECIMENOrdering Facility: [facility] Address:[address] [place], [place] [address]Result Comment: Estimated Glomerular Filtration Rate (eGFR) is calculated using the 2020 CKD-EPI creatinine equation. This equation utilizes serum creatinine, sex, and age as parameters. The creatinine assay has traceable calibration to isotope dilution-mass spectrometry. Refer to KDIGO guidelines for clinical interpretation. In patients with unstable renal function, e.g. those with acute kidney injury, the eGFR may not accurately reflect actual GFR.Performed By: #### 31819-2, 2776-11, ####[facility] LABIA [id number] VILLE [id number] [place] Glucose [Mass/Vol]142 mg/hFXsyt86-14TluvjjswuWVUMedicine Barnesville Hospital on above: Order Comment: Specimen Type: BLOOD SPECIMENOrdering Facility: [facility] Address:[address] [place], [place] [address]Result Comment: The [place] Diabetes Association (ADA) provides guidance for cutoff values for fast ing glucose and random glucose. The ADA defines fasting as no caloric intake for at least 8 hours. Fasting plasma glucose results between 100 to 125 mg/dL indicate increased risk for diabetes (prediabetes).Fasting plasma glucose results greater than or equal to 126 mg/dL meet the criteria for diagnosis of diabetes. In the absence of unequivocal hyperglycemia, results should be confirmed by repeattesting. In a patient with classic symptoms of hyperglycemia or hyperglycemic crisis, random plasmaglucose results greater than or equal to 200 mg/dL meet the criteria for diagnosis of diabetes.Reference: Standards of Medical Care in Diabetes 2016, [place] [employer] Association. Diabetes Care. 2016.39(Suppl 1).Performed By: #### 93807-0, 2776-11, ####[facility] LABVERM[facility] [id number] VILLE [id number] [place] AMERICAPotassium [Moles/Vol]4.7 mmol/LNormal3.7-5.1 [facility] on above:Order Comment: Specimen Type: BLOOD SPECIMENOrdering Facility: [facility] Address:[place] [address]Xwnwibhdc By: #### 50926-9, 27705-14, ####[facility] LABVERMONT STATE [facility] [id number] VILLE [id number] [place] AMERICAProtein [Mass/Vol]5.1 g/dLLow 6.3-8.0[facility] on above:Order Comment: Specimen Type: BLOOD SPECIMENOrdering Facility: [facility] Address:[address] [place], [place] [address]Performed By: #### 68351-5, 2777-1, 89400-7 ####[facility] LABCLIA [id number] VILLE [id number] [place] AMERICASodium [Moles/Vol]135 mmol/LLow 136-144[facility] on above:Order Comment: Specimen Type: BLOOD SPECIMENOrdering Facility: [facility] Address:[address] [place], [place] [address]Performed By: #### 68540-8, 2777-1, 64328-4 ####[facility] LABIA [id number], [place] [address] [place] AMERICAUrea nitrogen [Mass/Vol]18 mg/dL Normal9-24[facility] East HospitalComascension st[facility] on above:Order Comment: Specimen Type: BLOOD SPECIMENOrdering Facility: [facility] Address:[address] [place], [place] [address]Performed By: #### 15092-6, 2777-1, ####[facility] LABIA [id number] VILLE [id number] [place] AMERICAMagnesium SerPl-mCncon 01-27-2023 Magnesium [Mass/Vol]1.8 mg/dLNormal1.7-2.3CMercer County Community Hospital on above:Order Comment: Specimen Type: BLOOD SPECIMENOrdering Facility: [facility] Address:[address] [place], [place] [address]Performed By: #### 27001-9, 2777-, ####[facility] LABIA [id number] VILLE [id number] [place] PT panel Coag (PPP)on 80-34-7728CCH Coag (PPP) [Relative time]1.0 {INR}Normal 0.9-1.3CMercer County Community Hospital on above:Order Comment: Specimen Type: BLOOD SPECIMENOrdering Facility: [facility] Address:[facility] [address]Wmvzgv Comment: Vitamin K Antagonist (VKA) Therapeutic Range: INR 2 to 3 (Target INR of 2.5)Note: For patients treated with VKA drugs, such as warfarin, the [place] [employer] 2012 G uideline recommends a therapeutic INR range of 2 to 3 (target INR of 2.5). This recommendation includes high-risk patients with antiphospholipid syndrome with previous arterial or venous thromboembolism, current-generation mechanical or bioprosthetic aortic heart valve replacement.Note: Patients with mechanical aortic valve replacement and additional risk factors for thromboembolic events (atrialfibrillation, previous thromboembolism, LV dysfunction, hypercoagulable conditions) or an older generation mechanical AVR (i.e., ball in-Cage) or any mechanical MVR should have a INR therapeutic range of 2.5 to 3.5 (target INR of 3).Rico GH, et al. Chest 2012, 141:7S-47SNishjoel RA, et al. [facility] 2017, 70: 252-289Performed By: #### 37378-0, 59739-4 ####[facility] [id number] [place] [address] [place] AMERICAPT Coag (PPP) [Time]10.2 sNormal9.7-13.0[facility] on above:Order Comment: Specimen Type: BLOOD SPECIMENOrdering Facility: [facility] Address:[address] [place] [address] Performed By: #### 20312-4, 87946-7 ####[facility] [id number] [address] [address] [place] Phosphate SerPl-mCncon 56-86-5352Ymyiskywv [Mass/Vol]3.3 mg/dLNormal2.7-4.8 [facility] on above:Order Comment: Specimen Type: BLOOD SPECIMENOrdering Facility: [facility] Address:[place] [address]Rvydblqpb By: #### 93308-0, 2777-1, 80725-2 ####[facility] LABCLIA [id number] [address] STATES OF AMERICATYPE + SCREENon 39-09-1724PLSR NormalOhio State East HospitalComment on above:Order Comment: Specimen Type: BLOOD SPECIMENOrdering Facility: [facility] Address:[address] [place], [place] [address]Performed By: #### TSCR ####CC MAIN BLOOD BANKCLIA [id number] [place] [address] [facility] OF [facility]TR[facility]UM MEDICAL CENTERHISTORICAL AB SCR STATUSNegativeNormalCOhioHealth Southeastern Medical CenterComment on above:Order Comment: Specimen Type: BLOOD SPECIMENOrdering Facility: [facility] Address:[address] [place] [address] Performed By: #### TSCR ####[facility] BLOOD BANKCLIA [id number] [address] OF AMERICARh Nom (Bld)Positive [facility] HospitalComment on above:Order Comment: Specimen Type: BLOOD SPECIMENOrdering Facility: [facility] Address:[address] [place], [place] [address]Performed By: #### TSCR ####[facility] BLOOD BANKCLIA [id number] [place] [address] [place] [facility] MEDICAL CENTERTYPE AND SCREEN LNOTXISVPJ89/19/2023 23:59NormalCOhioHealth Southeastern Medical CenterComascension st. john hospital on above:Order Comment: Specimen Type: BLOOD SPECIMENOrdering Facility: [facility] Address:[address] [place], [place] [address]Performed By: #### TSCR ####CC MAIN BLOOD BANKCLIA [id number] [address] STATES OF AMERICAaPTT PPPon 71-10-2402wSQU Coag (PPP) [Time]24.2 cKhbzda59.0-32.4COhioHealth Southeastern Medical Center Comment on above:Order Comment: Specimen Type: BLOOD SPECIMENOrdering Facility: [facility] Address:[address] [place] [address] Performed By: #### 35923-3, 10777-9 ####[facility] LABCLIA [id number] [place] [address] [place] ANES POSTPROC EVALon 15-17-4033NJUE POSTPROC EVALNormalCOhioHealth Southeastern Medical CenterANES PRE-OPon 55-58-4060YPEN PRE-OPNormalOhio State East Hospital BRIEF OP NOTon 86-93-5842VEPIT OP NOTNormalCOhioHealth Southeastern Medical CenterBacteria Spec Anaerobe Culton 56-53-1742Nmbhqmgz identified Anaer cx Nom (Unsp spec) NegativeNormalCOhioHealth Southeastern Medical CenterComment on above:Performed By: #### 01070-8, 635-3 ####[facility] LABCLIA [id number] [place] [address] [place] AMERICABacteria identified Anaer cx Nom (Unsp spec)NegativeNormalCOhioHealth Southeastern Medical CenterComment on above:Performed By: #### 41278-3, 635-3 ####[facility] LABCLIA [id number] [address] [address] [place] AMERICABacteria Tiss Culton 11-35-8014Ivdnnlxu identified Cx Nom (Tiss)Abnormal [facility] HospitalComment on above:Performed By: #### 85895-2, 635-3 ####[facility] LABCLIA [id number] [address] [address] [place] AMERICABacteria identified Cx Nom (Tiss) ORGANISM ID: 1 Rare Streptococcus pyogenes (group a streptococcus) Refer to specimen collected on 01/24/2023 at 0807 ([id number]) GRAM STAIN: No organisms seen No Polymorphonuclear LeukocytesAbnormalCOhioHealth Southeastern Medical CenterComment on above:Performed By: #### 12173-6, 635-3 ####[facility] LABCLIA [id number] [place] [address] [place] AMERICACASE MANAGEMon 13-45-6676FTZI MANAGEMNormalOhio State East HospitalCASE MGT INIT ASSESon 03-87-2640FWNN MGT INIT ASSESNormalCOhioHealth Southeastern Medical Center CBC panel Auto (Bld)on 89-89-4493Obkkkphlmxt distribution width (RBC) [Ratio] 16.6 %High11.5-15.0[facility] on above:Order Comment: Specimen Type: BLOOD SPECIMENOrdering Facility: [facility] Address:[address] [place], [place] [address]Performed By: #### 75271-1 ####[facility] [id number] [place] [address] [place] AMERICAHematocrit (Bld) [Volume fraction]28.2 %Low39.0-51.0[facility] on above:Order Comment: Specimen Type: BLOOD SPECIMENOrdering Facility: [facility] Address:[address] [place], [place] [address]Performed By: #### 63360-9 ####[facility] [id number] [address] STATES OF AMERICAHemoglobin (Bld) [Mass/Vol]9.7 g/dLLow13.0-17.0[facility] on above:Order Comment: Specimen Type: BLOOD SPECIMENOrdering Facility: [facility] Address:[address] [place], [place] [address]Performed By: #### 07144-4 ####[facility] [id number] [place] [address] [place] AMERICAMCH (RBC) [Entitic mass]26.4 dmUngjbw80.0-34.0[facility] on above:Order Comment: Specimen Type: BLOOD SPECIMENOrdering Facility: [facility] Address:[address] [place] [address]Performed By: #### 72955-0 ####[facility] LABCLIA [id number] [address]ETMCHC (RBC) [Mass/Vol] 34.4 g/iQNrbnqe21.5-36.0[facility] on above:Order Comment: Specimen Type: BLOOD SPECIMENOrdering Facility: [facility] Address:[address] [place] [address]Performed By: #### 00010-5 ####[facility] LABCLIA [id number] [address]ETMCV (RBC) [Entitic vol]76.8 fLLow80.0-100.0[facility] on above:Order Comment: Specimen Type: BLOOD SPECIMENOrdering Facility: [facility] Address:[address] [place] [address]Performed By: #### 78676-9 ####[facility] LABIA [id number] [address]ucleated RBC (Bld) [#/Vol]10*3/uLNormal<0.01[facility] on above:Order Comment: Specimen Type: BLOOD SPECIMENOrdering Facility: [facility] Address:[address] [place] [address]Performed By: #### 74564-4 ####[facility] LABCLIA [id number] [address] STREETPlatelet mean volume (Bld) [Entitic vol]10.5 fLNormal9.0-12.7CMercer County Community Hospital on above:Order Comment: Specimen Type: BLOOD SPECIMENOrdering Facility: [facility] Address:[address] [place] [address]Performed By: #### 77133-8 ####[facility] LABCLIA [id number] [place] [address] [place] AMERICAPlatelets (Bld) [#/Vol]213 10*3/eEKlsxwy709-348PlnktpjbzWVUMedicine Barnesville Hospital on above:Order Comment: Specimen Type: BLOOD SPECIMENOrdering Facility: [facility] Address:[address] [place], [place] [address]Performed By: #### 51268-4 ####[facility] LABCLIA [id number] [address] OF [facility] ATRIUM MEDICAL CENTERRBC (Bld) [#/Vol]3.67 10*6/uLLow4.20-6.00[facility] on above:Order Comment: Specimen Type: BLOOD SPECIMENOrdering Facility: [facility] Address:[address] [place], [place] [address]Performed By: #### 32455-1 ####[facility] LABIA [id number] [address] OF [facility] ATRIUM MEDICAL CENTERWBC (Bld) [#/Vol]33.85 10*3/uL High3.70-11.00[facility] on above:Order Comment: Specimen Type: BLOOD SPECIMENOrdering Facility: [facility] Address:[address] [place] [address]Performed By: #### 44542-8 ####[facility] LABCLIA [id number] [address] OF AMERICAErythrocyte distribution width (RBC) [Ratio]14.9 % Qlavzu09.5-15.0[facility] on above:Order Comment: Specimen Type: BLOOD SPECIMENOrdering Facility: [facility] Address:[address] [place] [address]Performed By: #### 19355-3 ####[facility] LABCLIA [id number] [address] AMERICAHematocrit (Bld) [Volume fraction]22.7 %Low39.0-51.0[facility] on above:Order Comment: Specimen Type: BLOOD SPECIMENOrdering Facility: [facility] Address:[address] [place], [place] [address]Performed By: #### 22273-5 ####[facility] LABIA [id number] [address] STREETHemoglobin (Bld) [Mass/Vol]7.9 g/dLLow13.0-17.0[facility] on above:Order Comment: Specimen Type: BLOOD SPECIMENOrdering Facility: [facility] Address:[address] [place], [place] [address]Performed By: #### 67478-6 ####[facility] LABIA [id number] [address] (RBC) [Entitic mass]26.2 jvPcincc33.0-34.0[facility] on above:Order Comment: Specimen Type: BLOOD SPECIMENOrdering Facility: [facility] Address:[address] [place], [place] [address]Performed By: #### 61441-2 ####[facility] LABIA [id number] [address]ETMCHC (RBC) [Mass/Vol] 34.8 g/dGCmohjz70.5-36.0[facility] on above:Order Comment: Specimen Type: BLOOD SPECIMENOrdering Facility: [facility] Address:[address] [place], [place] [address]Performed By: #### 16267-2 ####[facility] LABIA [id number] [address]V (RBC) [Entitic vol]75.2 fLLow80.0-100.0[facility] on above:Order Comment: Specimen Type: BLOOD SPECIMENOrdering Facility: [facility] Address:[address] [place], [place] [address]Performed By: #### 97769-8 ####[facility] LABCLIA [id number] [place] [address] [place] AMERICANucleated RBC (Bld) [#/Vol]10*3/uLNormal<0.01[facility] on above:Order Comment: Specimen Type: BLOOD SPECIMENOrdering Facility: [facility] Address:[address] [place], [place] [address]Performed By: #### 05101-7 ####[facility] LABIA [id number] [place] [address] [place] AMERICAPlatelet mean volume (Bld) [Entitic vol]11.0 fLNormal9.0-12.7CMercer County Community Hospital on above:Order Comment: Specimen Type: BLOOD SPECIMENOrdering Facility: [facility] Address:[address] [place] [address]Performed By: #### 41833-2 ####[facility] LABCLIA [id number] [place] [address] [place] AMERICAPlatelets (Bld) [#/Vol]227 10*3/zRJfycoc973-205UayiwksyyWVUMedicine [facility] Hospital on above:Order Comment: Specimen Type: BLOOD SPECIMENOrdering Facility: [facility] Address:[address] [place] [address]Tgmzecyli By: #### 61306-2 ####[facility] LABIA [id number] [place] [address] [place] AMERICARBC (Bld) [#/Vol]3.02 10*6/uLLow4.20-6.00[facility] on above:Order Comment: Specimen Type: BLOOD SPECIMENOrdering Facility: [facility] Address:[address] [place], [place] [address]Performed By: #### 09224-3 ####[facility] LABCLIA [id number] [place] [address] [place] AMERICAWBC (Bld) [#/Vol]36.59 10*3/uL High3.70-11.00[facility] on above:Order Comment: Specimen Type: BLOOD SPECIMENOrdering Facility: [facility] Address:[address] [place], [place] [address]Performed By: #### 05543-8 ####[facility] LABCLIA [id number] [address] OF AMERICACONSULT PROGon 90-76-2415FHUKPVF PROGNormal [facility] East HospitalCONSULT PROGNormalOhio State East HospitalCULTURE BLOODon 66-40-9201Bctsyjivyfz examination of blood, cultureCulture Observations: Aerobic and Anaerobic bottles positive. BCID: [...] Vancomycin <=0.12 S F Tetracycline <=0.25 S FNormalParkview HealthComment on above:Performed By: #### BCID2 #### [facility] [address] [place] [address] Dr. Good CastellanoComprehensive metabolic 2000 panelon 14-80-7993Svqcssc [Mass/Vol] 2.4 g/dLLow3.9-4.9CMercer County Community Hospital on above:Order Comment: Specimen Type: BLOOD SPECIMENOrdering Facility: [facility] Address:[address] [place], [place] [address]Performed By: #### 85287-4, HSTNT, , 2776-11 ####[facility] LABCLIA [id number] [address] [address] [place] OF AMERICAALP [Catalytic activity/Vol]402 U/JAnyg99-032YpaavhfloWVUMedicine [facility] on above:Order Comment: Specimen Type: BLOOD SPECIMENOrdering Facility: [facility] Address:[address] [place], [place] [id number] By: #### 27870-2, HSTNT, , 2776-11 ####[facility] LABCLIA [id number] [place] [address] [place] [Catalytic activity/Vol]43 U/SUiafgp81-84AmhyftgjgWVUMedicine [facility] on above:Order Comment: Specimen Type: BLOOD SPECIMENOrdering Facility: [facility] Address:[address] [place] [address] Performed By: #### 50255-3, HSTNT, , 2776-11 ####[facility] LABCLIA [id number] [place] [address] [place] AMERICAAnion gap [Moles/Vol]10 mmol/LNormal9-18[facility] on above:Order Comment: Specimen Type: BLOOD SPECIMENOrdering Facility: [facility] Address:[address] [place] [address]Performed By: #### 27853-3, HSTNT, , 2776-11 ####[facility] LABCLIA [id number] [address] [address] [place] AMERICAAST [Catalytic activity/Vol]59 U/WMlys77-81 [facility] on above:Order Comment: Specimen Type: BLOOD SPECIMENOrdering Facility: [facility] Address:[address] [place] [address]Performed By: #### 57657-6, HSTNT, , 2776-11 ####[facility] LABCLIA [id number] [address] [address] [place] OF AMERICABilirubin [Mass/Vol]1.1 mg/dL Normal0.2-1.3CMercer County Community Hospital on above:Order Comment: Specimen Type: BLOOD SPECIMENOrdering Facility: [facility] Address:[address] [place], [place] [address]Performed By: #### 88819-8, HSTNT, , 2776-11 ####[facility] LABCLIA [id number] [place] [address] [place] AMERICACalcium [Mass/Vol]7.6 mg/dLLow 8.5-10.2CMercer County Community [facility] on above:Order Comment: Specimen Type: BLOOD SPECIMENOrdering Facility: [facility] Address:[address] [place], [place] [address]Performed By: #### 43467-3, HSTNT, , 2776-11 ####[facility] LABCLIA [id number] [place] [address] [place] AMERICAChloride [Moles/Vol]100 mmol/L Rwyvds16-236SgqzeyesvWVUMedicine Barnesville Hospital on above:Order Comment: Specimen Type: BLOOD SPECIMENOrdering Facility: [facility] Address:[address] [place] [address]Performed By: #### 19028-2, HSTNT, , 2776-11 ####[facility] LABCLIA [id number] [place] [address] [place] AMERICACO2 [Moles/Vol]23 mmol/LNormal 22-30[facility] on above:Order Comment: Specimen Type: BLOOD SPECIMENOrdering Facility: [facility] Address:[address] [place] [address]Performed By: #### 66267-9, HSTNT, , 2776-11 ####[facility] LABCLIA [id number] [place] [address] [place] AMERICACreatinine [Mass/Vol]0.99 mg/dL Normal0.73-1.22[facility] on above:Order Comment: Specimen Type: BLOOD SPECIMENOrdering Facility: [facility] Address:[address] [place], [place] [address]Performed By: #### 95915-9, HSTNT, , 2776-11 ####[facility] LABIA [id number] [place] [address] [place] AMERICAESTIMATED GLOMERULAR FILTRATION RATE88 mL/min/1.73m???Normal>=60[facility] Comment on above:Order Comment: Specimen Type: BLOOD SPECIMENOrdering Facility: [facility] Address:[address] [place] [address] Result Comment: Estimated Glomerular Filtration Rate (eGFR) is calculated using the 2020 CKD-EPI creatinine equation. This equation utilizes serum creatinine, sex, and age as parameters. The creatinine assay has traceable calibration to isotope dilution-mass spectrometry. Refer to KDIGO guidelines for clinical interpretation. In patients with unstable renal function, e.g. those with acute kidney injury, the eGFR may not accurately reflect actual GFR.Performed By: #### 28494-2, HSTNT, , 2776-11 ####[facility] LABIA [id number] [place] [address] [place] Glucose [Mass/Vol]99 mg/pKOrpwdz32-25JeugfakknWVUMedicine Barnesville Hospital on above: Order Comment: Specimen Type: BLOOD SPECIMENOrdering Facility: [facility] Address:[address] [place] [address]Result Comment: The [place] Diabetes Association (ADA) provides guidance for cutoff values for fast ing glucose and random glucose. The ADA defines fasting as no caloric intake for at least 8 hours. Fasting plasma glucose results between 100 to 125 mg/dL indicate increased risk for diabetes (prediabetes).Fasting plasma glucose results greater than or equal to 126 mg/dL meet the criteria for diagnosis of diabetes. In the absence of unequivocal hyperglycemia, results should be confirmed by repeattesting. In a patient with classic symptoms of hyperglycemia or hyperglycemic crisis, random plasmaglucose results greater than or equal to 200 mg/dL meet the criteria for diagnosis of diabetes.Reference: Standards of Medical Care in Diabetes 2016, [place] [employer] Association. Diabetes Care. 2016.39(Suppl 1).Performed By: #### 66396-2, HSTNT, , 2776-11 ####[facility] LABCLIA [id number] [place] [address] [place] AMERICAPotassium [Moles/Vol]4.5 mmol/L Normal3.7-5.1CMercer County Community Hospital on above:Order Comment: Specimen Type: BLOOD SPECIMENOrdering Facility: [facility] Address:[address] [place], [place] [address]Performed By: #### 28100-3, HSTNT, , 2776-11 ####[facility] LABIA [id number] [place] [address] [place] AMERICAProtein [Mass/Vol]5.4 g/dLLow 6.3-8.0[facility] on above:Order Comment: Specimen Type: BLOOD SPECIMENOrdering Facility: [facility] Address:[address] [place], [place] [address]Performed By: #### 19467-7, HSTNT, , 2776-11 ####[facility] LABIA [id number] [place] [address] [place] AMERICASodium [Moles/Vol]133 mmol/LLow 136-144[facility] on above:Order Comment: Specimen Type: BLOOD SPECIMENOrdering Facility: [facility] Address:[address] [place], [place] [address]Performed By: #### 93472-4, HSTNT, , 2776-11 ####[facility] LABIA [id number] [place] [address] [place] AMERICAUrea nitrogen [Mass/Vol]28 mg/dL High9-24[facility] on above:Order Comment: Specimen Type: BLOOD SPECIMENOrdering Facility: [facility] Address:[address] [place], [place] [address]Performed By: #### 89938-2, HSTNT, 02848-0, 2777-1 ####[facility] LABCLIA [id number] [place] [address] [place] AMERICAECG COMPLETEon 80-12-1982VMV COMPLETENormalCOhioHealth Southeastern Medical CenterHIGH SENSITIVITY TROPONIN Ton 01-26-2023 HIGH SENSITIVITY TNT97 ng/LHigh<12[facility] on above: Order Comment: Specimen Type: BLOOD SPECIMENOrdering Facility: [facility] Address:[address] [place], [place] [address]Result Comment: When assessing risk for acute coronary syndromes: In patients undergoing blood draw greater than or equal to 2 hours from symptom onset, with history of very low to moderate risk and non-ischemic ECG, an initial hs-Troponin T less than 12 ng/L AND a 1 hour delta hs-Troponin T less than 3 ng/L should be considered very low risk for 30 day MACE.Performed By: #### HSTNT ####[facility] LABCLIA [id number] [place] [address] [place] [facility] MED[facility] CENTERHIGH SENSITIVITY BWK843 ng/LHigh<12[facility] on above:Order Comment: Specimen Type: BLOOD SPECIMENOrdering Facility: [facility] Address:[address] [place], [place] [address]Result Comment: When assessing risk for acute coronary syndromes: In patients undergoing blood drawgreater than or equal to 2 hours from symptom onset, with history of very low to moderate risk and non-ischemic ECG, an initial hs- Troponin T less than 12 ng/L AND a 1 hour delta hs-Troponin T less than 3 ng/L should be considered very low risk for 30 day MACE.Performed By: #### 58985-5, HSTNT, , 277- ####[facility] LABCLIA [id number] [address] [address] [place] AMERICAMagnesium SerPl-mCncon 17-37-8844Sqycfkxtu [Mass/Vol]2.0 mg/dLNormal1.7-2.3CMercer County Community Hospital on above:Order Comment: Specimen Type: BLOOD SPECIMENOrdering Facility: [facility] Address:[address] [place] [id number] By: #### 87047-3, HSTNT, 09192-4, 277- ####[facility] LABIA [id number] [place] [address] [place] [facility] HOSPITALURSING PROGon 53-53-8333UNZCBFH PROGNormalOhio State East HospitalNUTRITIONon 52-82-7527FPGPVCXKZZswyio [facility] HospitalOPERATIVE NOon 96-02-5326VHYKRTAAF NONormalOhio State East HospitalPT panel Coag (PPP)on 30-14-8644HYU Coag (PPP) [Relative time] 1.0 {INR}Normal0.9-1.3CMercer County Community Hospital on above:Order Comment: Specimen Type: BLOOD SPECIMENOrdering Facility: [facility] Address:[address] [place] [phone] Comment: Vitamin K Antagonist (VKA) Therapeutic Range: INR 2 to 3 (Target INR of 2.5)Note: For patients treated with VKA drugs, such as warfarin, the [place] [employer] 2012 Guideline recommends a therapeutic INR range of 2 to 3 (target INR of 2.5). This recommendation includes high-risk patients with antiphospholipid syndrome with previous arterial or venous thromboembolism, current-generation mechanical or bioprosthetic aortic heart valve replacement.Note: Patients with mechanical aortic valve replacement and additional risk factors for thromboembolic events (atrialfibrillation, previous thromboembolism, LV dysfunction, hypercoagulable conditions) or an older gene ration mechanical AVR (i.e., ball in-Cage) or any mechanical MVR should have a INR therapeutic range of 2.5 to 3.5 (target INR of 3).Rico BENÍTEZ, et al. Chest 2012, 141:7S-47SNishimura RA, et al. JACC 2017, 70: 252-289Performed By: #### 11589-8, 54677-1 ####[facility] LABCLIA [id number] [place] [address] [place] AMERICAPT Coag (PPP) [Time] 10.4 sNormal9.7-13.0Ohio [facility] East HospitalComment on above:Order Comment: Specimen Type: BLOOD SPECIMENOrdering Facility: [facility] Address:[address] [place], [place] [address]Performed By: #### 15660-6, 10146-2 ####[facility] LABCLIA [id number] [facility] [place] [address] [place] AMERICAPhosphate SerPl-mCncon 88-69-6763Mdrarcwzo [Mass/Vol]3.5 mg/dLNormal2.7-4.8COhioHealth Southeastern Medical Center Comment on above:Order Comment: Specimen Type: BLOOD SPECIMENOrdering Facility: [facility] Address:[address] [place] [address] Performed By: #### 44949-6, HSTNT, 90100-0, 2777-1 ####[facility] LABIA [id number] [place] [address] [place] [facility] CENTERSURGICAL PATHOLOGYon 85-48-8408AXWM REPORTNormalCOhioHealth Southeastern Medical CenterComascension st. j[facility] on above:Order Comment: Specimen Type: DEVICE SPECIMENOrdering Facility: [facility] Address: [address] [place], [place] [address]Result Comment: Surgical Pathology Report Case: [id number] Provider: Jean Marie Samayoa MD Collected: 01/26/2023 05:56 PMOrdering Location: Admitting Received: 01/26/2023 06:02 PMPathologist:IRENE Sloanpecimen: HARDWAREPerformed By: #### S ####[facility] LABCLIA [id number] [id number] [place], [place] [address]INICAL HISTORYNoBellevue Hospital on above:Order Comment: Specimen Type: DEVICE SPECIMENOrdering Facility: [facility] Address: [address] [place], [place] [address]Result Comment: Pre-op diagnosis:Abscess of left thigh [L02.416]Performed By: #### S ####[facility] LABCLIA [id number] [id number] [place], [place] [address]FINAL DIAGNOSISNormalCMercer County Community Hospital on above:Order Comment: Specimen Type: DEVICE SPECIMENOrdering Facility: [facility] Address: [address] [place], [place] [address]Result Comment: A. Site not specified, hardware removal:-Unremarkable orthopedic hardware from a total hip arthroplasty (gross diagnosis only).CF/TLA 01/27/2023 Performed By: #### S ####[facility] LABCLIA [id number] [address] PERFORMING LABNoBellevue Hospital on above:Order Comment: Specimen Type: DEVICE SPECIMENOrdering Facility: [facility] Address: [address] [place] [address]Result Comment: Diagnostic interpretation performed at [facility], [address] [facility] [address] CLIA# [id number] Director: Felipe Field M.D.Performed By: #### S ####[facility] LABCLIA [id number] [address]ETGROSS DESCRIPTIONA. HARDWARE NormalWVUMedicine Barnesville Hospital on above:Order Comment: Specimen Type: DEVICE SPECIMENOrdering Facility: [facility] Address: [address] [place] [address]Result Comment: Received fresh labeled with hardware are the grossly unremarkable components of orthopedic hardware from a total hip arthroplasty including a femoral stem measuring 14.5 cm in length by 3.3 cm in greatest width. The device is intact with no defects present. Inscribed on the devices 8441-1687 V556DM . Also identified within the specimen container is a articulated silver metallicfemoral head component within a polyethylene acetabular insert with an overlying metallic acetabular cap overall measuring 4.8 x 4.8 x 3.5 cm. The articular surfaces are smooth with no evidence of scratching or decomposition present. The femoral head is freely mobile within the polyethylene insert.There is no yellow discoloration present. Inscribed on the device is 06-2600 5'38'37 6A190O BC-26 mm NK+0 . There is no attached soft tissue present. No sections are submitted. The specimen is review ed with Dr. Ernandez.TLA January 27, 2023 11:32 AMGross examination performed at [facility], [address], [place] [address]Performed By: #### S ####[facility] LABIA [id number] [place] [address] [place] AMERICATHERAPY NTon 73-11-0688UUKDSXG NT NormalACMC Healthcare SystemOUS BLOOD GASES WITH IONIZED MAGNESIUMon 65-25-2243HKNY DEFICIT, VENOUS-4 mmol/PJxr-9-0HfdoqfirtWVUMedicine Barnesville Hospital on above:Order Comment: Specimen Type: VENOUS BLOOD SPECIMENOrdering Facility: [facility] Address: [address] [place] [address] Performed By: #### VALLMG ####[facility] LABIA [id number] [place] [address] [place] Calcium.ionized (Bld) [Mass/Vol]1.05 mmol/LLow1.08-1.30[facility] on above:Order Comment: Specimen Type: VENOUS BLOOD SPECIMENOrdering Facility: [facility] Address: [address] [place] [address]Performed By: #### VALLMG ####[facility] LABIA [id number] [place] [address] [place] AMERICACalcium.ionized adjusted to pH 7.4 (BldA) [Moles/Vol]0.97 mmol/LLow1.08-1.30[facility] on above:Order Comment: Specimen Type: VENOUS BLOOD SPECIMENOrdering Facility: [facility] Address: [address] [place] [address]Performed By: #### VALLMG ####[facility] [id number] [place] [address] [place] AMERICACarboxyhemoglobin (BldV) [Mass fraction]1.4 %Normal0.0-2.0[facility] on above:Order Comment: Specimen Type: VENOUS BLOOD SPECIMENOrdering Facility: [facility] Address: [address] [place] [address]Result Comment: Carboxyhemoglobin Reference Range for Smokers: 2.0-8.0%Performed By: #### VALLMG ####[facility] [id number] [place] [address] [place] AMERICACO2 (BldV) [Partial pressure]51 mm[Hg]Ycngaf19-23CnepegpydWVUMedicine Barnesville Hospital on above:Order Comment: Specimen Type: VENOUS BLOOD SPECIMENOrdering Facility: [facility] Address: [address] [place] [address]Performed By: #### VALLMG ####[facility] [id number] [place] [address] [place] AMERICACO2 [Moles/Vol]24 mmol/HKtg05-56 [facility] on above:Order Comment: Specimen Type: VENOUS BLOOD SPECIMENOrdering Facility: [facility] Address: [address] [place] [address]Performed By: #### VALLMG ####[facility] [id number] [id number], [place] [address] [place] AMERICACO2 adjusted to patient's actual temperature (BldV) [Partial pressure]51 qxPnRjfekx45-26NrvzpdiroWVUMedicine Barnesville Hospital on above:Order Comment: Specimen Type: VENOUS BLOOD SPECIMENOrdering Facility: [facility] Address: [address] [place] [address] Performed By: #### VALLMG ####[facility] LABCLIA [id number] [place] [address] [place] Glucose [Mass/Vol]110 mg/oGRwnb17-357ViozikposWVUMedicine Barnesville Hospital on above: Order Comment: Specimen Type: VENOUS BLOOD SPECIMENOrdering Facility: [facility] Address: [address] [place], [place] [address]Performed By: #### VALLMG ####[facility] LABCLIA [id number] [place] [address] [place] AMERICAHCO3 (Bld) [Moles/Vol] 22 mmol/SNfp40-11LsoedpqukWVUMedicine Barnesville Hospital on above:Order Comment: Specimen Type: VENOUS BLOOD SPECIMENOrdering Facility: [facility] Address: [address] [place], [place] [address]Performed By: #### VALLMG ####[facility] LABCLIA [id number] [place] [address] [place] AMERICAHematocrit (Bld) [Volume fraction]26.6 %Low39.0-51.0[facility] on above:Order Comment: Specimen Type: VENOUS BLOOD SPECIMENOrdering Facility: [facility] Address: [address] [place] [address]Performed By: #### VALLMG ####[facility] LABCLIA [id number] [place] [address] [place] AMERICAHemoglobin (Bld) [Mass/Vol]8.6 g/dLLow13.0-17.0[facility] on above:Order Comment: Specimen Type: VENOUS BLOOD SPECIMENOrdering Facility: [facility] Address: [address]Performed By: #### VALLMG ####[facility] LABIA [id number] [place] [address] [place] AMERICALactate [Moles/Vol]1.0 mmol/L Normal0.5-2.2CMercer County Community Hospital on above:Order Comment: Specimen Type: VENOUS BLOOD SPECIMENOrdering Facility: [facility] Ad dress: [address] [place] [address]Performed By: #### VALLMG ####[facility] LABIA [id number] [place] [address] [place] AMERICAMagnesium [Moles/Vol]0.48 mmol/L Normal0.45-0.60[facility] on above:Order Comment: Specimen Type: VENOUS BLOOD SPECIMENOrdering Facility: [facility] Address: [address] [place], [place] [address]Performed By: #### VALLMG ####[facility] LABIA [id number] [place] [address] [place] AMERICAMethemoglobin (Bld) [Mass fraction]1.5 %Normal0.0-1.5CMercer County Community Hospital on above:Order Comment: Specimen Type: VENOUS BLOOD SPECIMENOrdering Facility: [facility] Address: [address] [place] [phone] By: #### VALLMG ####[facility] LABCLIA [id number] [place] [address] [place] AMERICAOxygen (BldV) [Partial pressure] 58 mm[Hg]Adoc91-06TmoqotcwwWVUMedicine Barnesville Hospital on above:Order Comment: Specimen Type: VENOUS BLOOD SPECIMENOrdering Facility: [facility] Address: [address] [place] [address]Performed By: #### VALLMG ####[facility] LABCLIA [id number] [place] [address] [place] AMERICAOxygen adjusted to patient's actual temperature (BldV) [Partial pressure]58 ueIbOumy20-17RucdsuyycWVUMedicine Barnes[facility] Hospital on above:Order Comment: Specimen Type: VENOUS BLOOD SPECIMENOrdering Facility: [facility] Address: [address] [place], [place] [address]Performed By: #### VALLMG ####[facility] LABCLIA [id number] [address] STATES OF [facility]TR[facility] MEDICAL CENTEROxygen saturation in Venous blood84 %Yuxaxz77-62GzwcwxqooWVUMedicine Barnesville Hospital on above:Order Comment: Specimen Type: VENOUS BLOOD SPECIMENOrdering Facility: [facility] Address: [address] [place], [place] [address]Performed By: #### VALLMG ####[facility] LABIA [id number] [address] STATES OF [facility]TRI[facility] MEDICAL CENTEROxyhemoglobin (BldV) [Mass fraction]81 %Opebox73-48WxmbignylWVUMedicine [facility] Hospital on above:Order Comment: Specimen Type: VENOUS BLOOD SPECIMENOrdering Facility: [facility] Address: [address] [place], [place] [address]Performed By: #### VALLMG ####[facility] LABIA [id number] [place] [address] [place] AMERICApH (BldV)7.26 [pH]Low7.32-7.42[facility] on above:Order Comment: Specimen Type: VENOUS BLOOD SPECIMENOrdering Facility: [facility] Address: [address] [place] [address] Performed By: #### VALLMG ####[facility] LABIA [id number] [place] [address] [place] pH adjusted to patient's actual temperature (BldV)7.26Low7.32-7.42[facility] on above:Order Comment: Specimen Type: VENOUS BLOOD SPECIMENOrdering Facility: [facility] Address: [address] [place], [place] [address]Performed By: #### VALLMG ####[facility] LABCLIA [id number] [place] [address] [place] AMERICAPotassium [Moles/Vol]4.3 mmol/LNormal3.5-5.0[facility] on above:Order Comment: Specimen Type: VENOUS BLOOD SPECIMENOrdering Facility: [facility] Address: [address] [place], [place] [address]Performed By: #### VALLMG ####[facility] LABCLIA [id number] [place] [address] [place] [facility] CENTERSodium [Moles/Vol]135 mmol/BWrv792-501UcmsvigbvWVUMedicine Barnesville Hospital on above:Order Comment: Specimen Type: VENOUS BLOOD SPECIMENOrdering Facility: [facility] Address: [address] [place], [place] [address]Performed By: #### VALLMG ####[facility] LABIA [id number] [place] [address] [place] AMERICAXR CHEST 1V FRONTAL PORTon 65-06-4904YQ CHEST 1V FRONTAL PORT NormalOhio State East HospitalXR PELVIS 1V APon 42-71-0789MH PELVIS 1V AP NormalOhio State East HospitalaPTT PPPon 97-53-8853cKYZ Coag (PPP) [Time]23.0 zDjianx35.0-32.4CMercer County Community Hospital on above:Order Comment: Specimen Type: BLOOD SPECIMENOrdering Facility: [facility] Address:[address] [place], [place] [address]Performed By: #### 60419-1, 43852-6 ####[facility] LABCLIA [id number] [place] [address] [place] AMERICACBC panel Auto (Bld)on 44-08-7349Bqywxztield distribution width (RBC) [Ratio]14.8 %Jckhor25.5-15.0 [facility] on above:Order Comment: Specimen Type: BLOOD SPECIMENOrdering Facility: [facility] Address:[address] [place], [place] [address]Performed By: #### 56194-3 ####[facility] LABCLIA [id number] [place] [address] [place] [facility] MEDICAL CENTERHematocrit (Bld) [Volume fraction]20.0 %Low39.0-51.0[facility] on above:Order Comment: Specimen Type: BLOOD SPECIMENOrdering Facility: [facility] Address:[address] [place], [place] [address]Performed By: #### 74758-7 ####[facility] LABCLIA [id number] [address] STATES OF AMERICAHemoglobin (Bld) [Mass/Vol]7.0 g/dLLow13.0-17.0[facility] on above:Order Comment: Specimen Type: BLOOD SPECIMENOrdering Facility: [facility] Address:[address] [place], [place] [address]Performed By: #### 00494-6 ####[facility] LABIA [id number] [place] [address] [place] MCH (RBC) [Entitic mass]26.2 juWbuurt91.0-34.0[facility] on above:Order Comment: Specimen Type: BLOOD SPECIMENOrdering Facility: [facility] Address:[address] [place] [address] Performed By: #### 34641-6 ####[facility] LABCLIA [id number] [place] [address] [place] MCHC (RBC) [Mass/Vol]35.0 g/dOBstbou73.5-36.0[facility] on above:Order Comment: Specimen Type: BLOOD SPECIMENOrdering Facility: [facility] Address:[address] [place] [phone] Performed By: #### 10866-0 ####[facility] LABIA [id number] [address] MCV (RBC) [Entitic vol]74.9 fLLow80.0-100.0[facility] on above:Order Comment: Specimen Type: BLOOD SPECIMENOrdering Facility: [facility] Address:[address] [place] [address]Performed By: #### 10426-0 ####[facility] LABIA [id number] [address] AMERICANucleated RBC (Bld) [#/Vol]10*3/uLNormal<0.01[facility] on above:Order Comment: Specimen Type: BLOOD SPECIMENOrdering Facility: [facility] Address:[address] [place] [address]Performed By: #### [id number] ####[facility] LABIA [id number] [place] [address] [place] AMERICAPlatelet mean volume (Bld) [Entitic vol]12.1 fLNormal9.0-12.7CMercer [facility] on above:Order Comment: Specimen Type: BLOOD SPECIMENOrdering Facility: [facility] Address:[address] [place] [id number] By: #### 73928-7 ####[facility] LABIA [id number] [place] [address] [place] AMERICAPlatelets (Bld) [#/Vol]176 10*3/cZBvozku457-284OoesimkeuWVUMedicine Barnesville Hospital on above:Order Comment: Specimen Type: BLOOD SPECIMENOrdering Facility: [facility] Address:[address] [place] [phone] By: #### 45958-9 ####[facility] LABIA [id number] [place] [address] [place] AMERICARBC (Bld) [#/Vol]2.67 10*6/uLLow4.20-6.00[facility] on above:Order Comment: Specimen Type: BLOOD SPECIMENOrdering Facility: [facility] Address:[address] [address]Performed By: #### 12530-8 ####[facility] [id number] [address] STATES OF AMERICAWBC (Bld) [#/Vol]37.96 10*3/uL High3.70-11.00[facility] on above:Order Comment: Specimen Type: BLOOD SPECIMENOrdering Facility: [facility] Address:[address] [place], [place] [address]Performed By: #### 32539-3 ####[facility] [id number] [address] STATES OF AMERICACONSULTon 07-03-6135ZKDSWQLItnkdiLtpunuutk Clinic ClevelandCONSULT PROGon 93-42-4079BWVHIEM PROGNormalOhio State East Hospital CONSULT PROGNormalOhio State East HospitalComprehensive metabolic 2000 panelon 25-71-1461Dsprowr [Mass/Vol]2.0 g/dLLow3.9-4.9CMercer County Community Hospital on above:Order Comment: Specimen Type: BLOOD SPECIMENOrdering Facility: [facility] Address:[address] [address] Performed By: #### 68462-5, 66816-1, 2777-1, HSTNT ####[facility] LABIA [id number] [place] [address] [place] AMERICAALP [Catalytic activity/Vol]107 U/YWbvruo11-045WhtinolmjWVUMedicine Barnesville Hospital on above:Order Comment: Specimen Type: BLOOD SPECIMENOrdering Facility: [facility] Address:[address] [place], [place] [address]Performed By: #### 61504-7, 34158-7, 2776-, HSTNT ####[facility] LABCLIA [id number] [place] [address] [place] AMERICAALT [Catalytic activity/Vol]27 U/KGpqudl74-92 [facility] on above:Order Comment: Specimen Type: BLOOD SPECIMENOrdering Facility: [facility] Address:[address] [place], [place] [address]Performed By: #### 93367-8, 58874-4, 2776-11, HSTNT ####[facility] LABCLIA [id number] [place] [address] [place] AMERICAAnion gap [Moles/Vol]13 mmol/L Normal9-18[facility] on above:Order Comment: Specimen Type: BLOOD SPECIMENOrdering Facility: [facility] Address:[address] [place], [place] [address]Performed By: #### 25703-9, 89858-6, 2776-11, HSTNT ####[facility] LABIA [id number] [place] [address] [place] AMERICAAST [Catalytic activity/Vol]18 U/LYisiqq02-97LuldyroxoWVUMedicine [facility]ville Hospital on above:Order Comment: Specimen Type: BLOOD SPECIMENOrdering Facility: [facility] Address:[address] [place], [place] [address]Performed By: #### 92361-1, 92260-9, 2776-, HSTNT ####[facility] LABCLIA [id number] [place] [id number] [place] AMERICABilirubin [Mass/Vol]1.3 mg/dL Normal0.2-1.3CMercer County Community Hospital on above:Order Comment: Specimen Type: BLOOD SPECIMENOrdering Facility: [facility] Address:[address] [place], [place] [address]Performed By: #### 74235-0, 91894-3, 2776-11, HSTNT ####[facility] LABCLIA [id number] [place] [address] [place] AMERICACalcium [Mass/Vol]7.5 mg/dLLow 8.5-10.2CMercer County Community Hospital on above:Order Comment: Specimen Type: BLOOD SPECIMENOrdering Facility: [facility] Address:[address] [place], [place] [address]Performed By: #### 83431-0, 41597-4, 2776-11, HSTNT ####[facility] LABCLIA [id number] [place] [address] [place] AMERICAChloride [Moles/Vol]99 mmol/L Cxzjwo45-027JwlcqanhvWVUMedicine Barnesville Hospital on above:Order Comment: Specimen Type: BLOOD SPECIMENOrdering Facility: [facility] Address:[address] [place], [place] [address]Performed By: #### 18625-2, 59740-8, 2776-11, HSTNT ####[facility] LABCLIA [id number] [place] [address] [place] AMERICACO2 [Moles/Vol]20 mmol/HTbn50-36 [facility] on above:Order Comment: Specimen Type: BLOOD SPECIMENOrdering Facility: [facility] Address:[address] [place], [place] [address]Performed By: #### 31377-1, 47303-5, 2776-11, HSTNT ####[facility] LABCLIA [id number] [place] [address] [place] AMERICACreatinine [Mass/Vol]1.47 mg/dL High0.73-1.22[facility] on above:Order Comment: Specimen Type: BLOOD SPECIMENOrdering Facility: [facility] Address:[address] [place] [address]Fcwqcdcjv By: #### 81132-3, 46942-8, 2777-1, HSTNT ####[facility] LABIA [id number] [place] [id number] [place] OF AMERICAESTIMATED GLOMERULAR FILTRATION RATE55 mL/min/1.73m???Low>=60[facility] on above:Order Comment: Specimen Type: BLOOD SPECIMENOrdering Facility: [facility] Address:[address] [place] [phone] Comment: Estimated Glomerular Filtration Rate (eGFR) is calculated using the 2020 CKD-EPI creatinine equation. This equation utilizes serum creatinine, sex, and age as parameters. The creatinine assay has traceable calibration to isotope dilution- mass spectrometry. Refer to KDIGO guidelines for clinical interpretation. In patients with unstable renal function, e.g. those with acute kidney injury, the eGFR may not accurately reflect actual GFR.Performed By: #### 21337-2, 37088-0, 2777-1, HSTNT ####[facility] LABCLIA [id number] [place] [id number] [place] AMERICAGlucose [Mass/Vol]99 mg/rAEhcowm18-38LnquseuxrWVUMedicine Barnesville Hospital on above:Order Comment: Specimen Type: BLOOD SPECIMENOrdering Facility: [facility] Address:[address] [place] [phone] Comment: The [place] Diabetes Association (ADA) provides guidance for cutoff [...] symptoms of hyperglycemia or hyperglycemic crisis, random plasmaglucose results greater than or equal to 200 mg/dL meet the criteria for diagnosis of diabetes.Reference: Standards of Medical Care in Diabetes 2016, [place] [employer]. Diabetes Care. 2016.39(Suppl 1). Performed By: #### 09886-1, 90660-5, 2777-1, HSTNT ####[facility] LABCLIA [id number] [place] [id number] [place] AMERICAPotassium [Moles/Vol]4.3 mmol/LNormal3.7-5.1CMercer County Community Hospital on above:Order Comment: Specimen Type: BLOOD SPECIMENOrdering Facility: [facility] Address:[address] [place], [place] [address]Performed By: #### 89673-2, 87991-6, 27705-14, HSTNT ####[facility] LABIA [id number] [place] [address] [place] AMERICAProtein [Mass/Vol]4.3 g/dLLow6.3-8.0[facility] on above:Order Comment: Specimen Type: BLOOD SPECIMENOrdering Facility: [facility] Address:[address] [place], [place] [address]Performed By: #### 09810-3, 02748-5, 2776-11, HSTNT ####[facility] LABIA [id number] [place] [address] [place] AMERICASodium [Moles/Vol]132 mmol/LLow 136-144[facility] on above:Order Comment: Specimen Type: BLOOD SPECIMENOrdering Facility: [facility] Address:[address] [place] [address]Performed By: #### 74044-0, 43148-6, 2776-11, HSTNT ####[facility] LABIA [id number] [place] [id number] [place] AMERICAUrea nitrogen [Mass/Vol]53 mg/dL High9-24[facility] on above:Order Comment: Specimen Type: BLOOD SPECIMENOrdering Facility: [facility] Address:[address] [place], [place] [address]Performed By: #### 10180-3, 07141-5, 2777-1, HSTNT ####[facility] LABIA [id number] [place] [address] [place] AMERICAGas and Carbon monoxide panel (BldV)on 84-27-8655BJRU DEFICIT, VENOUS-3 mmol/DWhe-7-5QnmuigdgxOhio State East HospitalComment on above:Order Comment: Specimen Type: VENOUS BLOOD SPECIMENOrdering Facility: [facility] Address: [address]Performed By: #### 89461-7 ####[facility] LABIA [id number] [place] [address] [place] AMERICABody ucasuvpezvz35.06 [degF]NormalOhio State East Hospital Comment on above:Order Comment: Specimen Type: VENOUS BLOOD SPECIMENOrdering Facility: [facility] Address: [address] [place], [place] [address]Performed By: #### 46405-5 ####[facility] LABIA [id number] [place] [address] [place] Calcium.ionized (Bld) [Mass/Vol]1.10 mmol/LNormal1.08-1.30[facility] on above:Order Comment: Specimen Type: VENOUS BLOOD SPECIMENOrdering Facility: [facility] Address: [address] [place], [place] [address]Performed By: #### 32492-2 ####[facility] LABIA [id number] [place] [address] [place] AMERICACalcium.ionized adjusted to pH 7.4 (BldA) [Moles/Vol]1.10 mmol/LNormal1.08-1.30[facility] on above:Order Comment: Specimen Type: VENOUS BLOOD SPECIMENOrdering Facility: [facility] Address: [address] [place], [place] [address]Performed By: #### 50908-9 ####[facility] LABCLIA [id number] [place] [address] [place] AMERICACarboxyhemoglobin (BldV) [Mass fraction]1.4 %Normal0.0-2.0[facility] on above:Order Comment: Specimen Type: VENOUS BLOOD SPECIMENOrdering Facility: [facility] Address: [address] [place] [address] Result Comment: Carboxyhemoglobin Reference Range for Smokers: 2.0-8.0%Performed By: #### 14183-7 ####[facility] LABCLIA [id number] [place] [address] [place] AMERICACO2 (BldV) [Partial pressure]36 mm[Hg]Ycc63-29SlufbnbxnOhio State East HospitalComment on above:Order Comment: Specimen Type: VENOUS BLOOD SPECIMENOrdering Facility: [facility] Address: [address] [place], [place] [address]Performed By: #### 18349-1 ####[facility] LABCLIA [id number] [place] [address] [place] AMERICACO2 [Moles/Vol]23 mmol/RXdc34-90OsmzxwnnpOhio State East HospitalComascension st. j[facility] on above:Order Comment: Specimen Type: VENOUS BLOOD SPECIMENOrdering Facility: [facility] Ad dress: [address] [place] [address]Performed By: #### 97115-8 ####[facility] LABCLIA [id number] [place] [address] [place] AMERICACO2 adjusted to patient's actual temperature (BldV) [Partial pressure]35 azQbZkv27-48DkjuizeqhOhio State East Hospital Comment on above:Order Comment: Specimen Type: VENOUS BLOOD SPECIMENOrdering Facility: [facility] Address: [address] [place], [place] [address]Performed By: #### 88769-4 ####[facility] LABCLIA [id number] [place] [address] [place] Glucose [Mass/Vol]104 mg/hZXofemv45-369HcholgdowWVUMedicine [facility] Hospital on above:Order Comment: Specimen Type: VENOUS BLOOD SPECIMENOrdering Facility: [facility] Address: [address] [place] [address] Performed By: #### 98922-4 ####[facility] LABCLIA [id number] [place] [address] [place] HCO3 (Bld) [Moles/Vol]21 mmol/IGlv45-30YxeivlsvcWVUMedicine Barnesville Hospital on above:Order Comment: Specimen Type: VENOUS BLOOD SPECIMENOrdering Facility: [facility] Address: [address] [place] [address] Performed By: #### 71551-2 ####[facility] LABCLIA [id number] [place] [address] [place] Hematocrit (Bld) [Volume fraction]24.5 %Low39.0-51.0[facility] Comment on above:Order Comment: Specimen Type: VENOUS BLOOD SPECIMENOrdering Facility: [facility] Address: [address] [place], [place] [address]Performed By: #### 66520-9 ####[facility] LABCLIA [id number] [place] [address] [place] Hemoglobin (Bld) [Mass/Vol]7.9 g/dLLow13.0-17.0[facility] on above:Order Comment: Specimen Type: VENOUS BLOOD SPECIMENOrdering Facility: [facility] Address: [address] [place], [place] [address] Performed By: #### 51281-5 ####[facility] LABCLIA [id number] [place] [address] [place] Lactate [Moles/Vol]1.2 mmol/LNormal0.5-2.2CMercer County Community Hospital on above:Order Comment: Specimen Type: VENOUS BLOOD SPECIMENOrdering Facility: [facility] Address: [address] [place] [address] Performed By: #### 62392-3 ####[facility] LABCLIA [id number] [address] Methemoglobin (Bld) [Mass fraction]0.9 %Normal0.0-1.5COhioHealth Southeastern Medical Center Comment on above:Order Comment: Specimen Type: VENOUS BLOOD SPECIMENOrdering Facility: [facility] Address: [address] [place], [place] [address]Performed By: #### 60353-5 ####[facility] LABIA [id number] [address] O2 THERAPYNC = Nasal CannulaNormalCOhioHealth Southeastern Medical CenterComment on above: Order Comment: Specimen Type: VENOUS BLOOD SPECIMENOrdering Facility: [facility] Address: [address] [place], [place] [address]Performed By: #### 46542-6 ####[facility] LABIA [id number] [address] STATES OF [facility] MEDICAL CENTEROxygen (BldV) [Partial pressure]44 mm[Hg]Wncqil00-78NajjisyquOhio State East HospitalComment on above:Order Comment: Specimen Type: VENOUS BLOOD SPECIMENOrdering Facility: [facility] Address: [address] [place] [address]Performed By: #### 33220-1 ####[facility] LABCLIA [id number] [address] STATES OF [facility]TRI[facility] MEDICAL CENTEROxygen adjusted to patient's actual temperature (BldV) [Partial pressure]43 fjPlPrrifp12-[address] [facility] [address] [facility] on above:Order Comment: Specimen Type: VENOUS BLOOD SPECIMENOrdering Facility: [facility] Address: [address] [place] [address]Performed By: #### 66055-0 ####[facility] LABCLIA [id number] [place] [address] [place] AMERICAOxygen saturation in Venous blood73 %Axiclc32-82 [facility] on above:Order Comment: Specimen Type: VENOUS BLOOD SPECIMENOrdering Facility: [facility] Address: [address] [place], [place] [address]Performed By: #### 69501-8 ####[facility] LABCLIA [id number] [place] [address] [place] AMERICAOxyhemoglobin (BldV) [Mass fraction]71 %Normal 60-85[facility] on above:Order Comment: Specimen Type: VENOUS BLOOD SPECIMENOrdering Facility: [facility] Address: [address] [place], [place] [address]Performed By: #### 77968-0 ####[facility] LABCLIA [id number] [place] [address] [place] AMERICApH (BldV)7.40 [pH]Normal7.32-7.42 [facility] on above:Order Comment: Specimen Type: VENOUS BLOOD SPECIMENOrdering Facility: [facility] Address: [address] [place], [place] [address]Performed By: #### 41753-8 ####[facility] LABCLIA [id number] [place] [address] [place] AMERICApH adjusted to patient's actual temperature (BldV) 7.34Wwfmek6.32-7.42[facility] on above:Order Comment: Specimen Type: VENOUS BLOOD SPECIMENOrdering Facility: [facility] Address: [address] [place], [place] [address]Performed By: #### 44130-9 ####[facility] LABCLIA [id number] [place] [address] [place] AMERICAPotassium [Moles/Vol] 4.0 mmol/LNormal3.5-5.0[facility] on above:Order Comment: Specimen Type: VENOUS BLOOD SPECIMENOrdering Facility: [facility] Address: [address] [place] [address]Performed By: #### 59636-5 ####[facility] LABCLIA [id number] [place] [address] [place] [facility] CENTERSodium [Moles/Vol]130 mmol/CWnq131-598WgaesfptdWVUMedicine [facility]ville Hospital on above:Order Comment: Specimen Type: VENOUS BLOOD SPECIMENOrdering Facility: [facility] Address: [address]Performed By: #### 30206-6 ####[facility] LABIA [id number] [place] [address] [place] AMERICABASE DEFICIT, VENOUS-3 mmol/KGaa-7-8AivrnbfkoWVUMedicine Barnesville Hospital on above:Order Comment: Specimen Type: VENOUS BLOOD SPECIMENOrdering Facility: [facility] Ad dress: [address] [place] [address]Performed By: #### 09476-2 ####[facility] LABIA [id number] [place] [address] [place] AMERICABody wywkpxzmyuw03.6 [degF]Normal [facility] on above:Order Comment: Specimen Type: VENOUS BLOOD SPECIMENOrdering Facility: [facility] Address: [address]Performed By: #### 43113-5 ####[facility] LABCLIA [id number] [place] [address] [place] AMERICACalcium.ionized (Bld) [Mass/Vol]1.13 mmol/LNormal 1.08-1.30[facility] on above:Order Comment: Specimen Type: VENOUS BLOOD SPECIMENOrdering Facility: [facility] Ad dress: [address] [place] [address]Performed By: #### 95110-9 ####[facility] LABCLIA [id number] [place] [address] [place] AMERICACalcium.ionized adjusted to pH 7.4 (BldA) [Moles/Vol]1.12 mmol/LNormal1.08-1.30[facility] Comment on above:Order Comment: Specimen Type: VENOUS BLOOD SPECIMENOrdering Facility: [facility] Address: [address] [place], [place] [address]Performed By: #### 68665-3 ####[facility] LABIA [id number] [place] [address] [place] Carboxyhemoglobin (BldV) [Mass fraction]1.0 %Normal0.0-2.0[facility] HospitalComment on above:Order Comment: Specimen Type: VENOUS BLOOD SPECIMENOrdering Facility: [facility] Address: [address] [place], [place] [address]Result Comment: Carboxyhemoglobin Reference Range for Smokers: 2.0-8.0%Performed By: #### 67973-1 ####[facility] LABIA [id number] [place] [address] [place] AMERICACO2 (BldV) [Partial pressure]36 mm[Hg]Bre41-66NdzjvfoafOhio State East Hospital Comment on above:Order Comment: Specimen Type: VENOUS BLOOD SPECIMENOrdering Facility: [facility] Address: [address] [place] [address]Performed By: #### 40505-3 ####[facility] LABIA [id number] [place] [address] [place] CO2 [Moles/Vol]22 mmol/XOgc32-43WtmqgkctsOhio State East HospitalComment on above:Order Comment: Specimen Type: VENOUS BLOOD SPECIMENOrdering Facility: [facility] Address: [address] [place] [address]Performed By: #### 83198-1 ####[facility] LABIA [id number] [place] [address] [place] AMERICAGlucose [Mass/Vol]106 mg/vBShie63-200IxfbtcrxcWVUMedicine [facility] Hospital on above:Order Comment: Specimen Type: VENOUS BLOOD SPECIMENOrdering Facility: [facility] Address: [address] [place], [place] [address]Performed By: #### 37994-6 ####[facility] LABCLIA [id number] [place] [address] [place] AMERICAHCO3 (Bld) [Moles/Vol] 21 mmol/IUje28-73TrptnyfkyWVUMedicine Barnesville Hospital on above:Order Comment: Specimen Type: VENOUS BLOOD SPECIMENOrdering Facility: [facility] Address: [address] [place], [place] [address]Performed By: #### 81557-6 ####[facility] LABIA [id number] [place] [address] [place] AMERICAHematocrit (Bld) [Volume fraction]22.9 %Low39.0-51.0[facility] on above: Order Comment: Specimen Type: VENOUS BLOOD SPECIMENOrdering Facility: [facility] Address: [address] [place], [place] [address]Performed By: #### 19762-8 ####[facility] LABIA [id number] [place] [address] [place] AMERICAHemoglobin (Bld) [Mass/Vol]7.3 g/dLLow13.0-17.0[facility] on above:Order Comment: Specimen Type: VENOUS BLOOD SPECIMENOrdering Facility: [facility] Address: [address] [place], [place] [address]Performed By: #### 48273-6 ####[facility] LABIA [id number] [place] [address] [place] AMERICALactate [Moles/Vol]2.1 mmol/LNormal0.5-2.2CMercer County Community Hospital on above:Order Comment: Specimen Type: VENOUS BLOOD SPECIMENOrdering Facility: [facility] Address: [address] [place], [place] [address]Performed By: #### 61956-6 ####[facility] LABCLIA [id number] [address] STATES OF AMERICAMethemoglobin (Bld) [Mass fraction]1.6 %High0.0-1.5CMercer County Community Hospital on above:Order Comment: Specimen Type: VENOUS BLOOD SPECIMENOrdering Facility: [facility] Address: [address] [place], [place] [address]Performed By: #### 68169-9 ####[facility] LABCLIA [id number] [address] OF [facility]TR[facility] CENTERO2 THERAPYNC = Nasal CannulaNormalCMercer County Community Hospital on above:Order Comment: Specimen Type: VENOUS BLOOD SPECIMENOrdering Facility: [facility] Ad dress: [address] [place] [address]Performed By: #### 99059-0 ####[facility] LABCLIA [id number] [place] [address] [place] AMERICAOxygen (BldV) [Partial pressure] 38 mm[Hg]Xxlkkq82-08GskolrjwvWVUMedicine Barnesville Hospital on above:Order Comment: Specimen Type: VENOUS BLOOD SPECIMENOrdering Facility: [facility] Address: [address] [place], [place] [address]Performed By: #### 23638-3 ####[facility] LABCLIA [id number] [address] STATES OF AMERICAOxygen saturation in Venous blood62 %Qwwavu99-92JyquozblcWVUMedicine [facility] Hospital on above:Order Comment: Specimen Type: VENOUS BLOOD SPECIMENOrdering Facility: [facility] Address: [address] [place], [place] [address]Performed By: #### 72235-5 ####[facility] LABCLIA [id number] [place] [address] [place] AMERICAOxyhemoglobin (BldV) [Mass fraction]61 %Suzrqv51-34BvctpsgmdWVUMedicine Barnesville Hospital on above:Order Comment: Specimen Type: VENOUS BLOOD SPECIMENOrdering Facility: [facility] Address: [address] [place], [place] [address]Performed By: #### 31500-9 ####[facility] LABCLIA [id number] [place] [address] [place] AMERICApH (BldV)7.39 [pH] Normal7.32-7.42[facility] on above:Order Comment: Specimen Type: VENOUS BLOOD SPECIMENOrdering Facility: [facility] Address: [address] [place], [place] [address]Performed By: #### 98748-8 ####[facility] LABIA [id number] [place] [address] [place] AMERICAPotassium [Moles/Vol] 4.1 mmol/LNormal3.5-5.0[facility] on above:Order Comment: Specimen Type: VENOUS BLOOD SPECIMENOrdering Facility: [facility] Address: [address] [place], [place] [id number] By: #### 18053-7 ####[facility] LABIA [id number] [place] [address] [place] AMERICASodium [Moles/Vol]130 mmol/FCxw012-537HpiilxtobWV[facility] on above:Order Comment: Specimen Type: VENOUS BLOOD SPECIMENOrdering Facility: [facility] Address: [address] [place], [place] [id number] By: #### 65983-6 ####[facility] LABIA [id number] [place] [address] [place] AMERICAHIGH SENSITIVITY TROPONIN Ton 50-86-3498GLTS SENSITIVITY TNT19 ng/LHigh<12[facility] on above:Order Comment: Specimen Type: BLOOD SPECIMENOrdering Facility: [facility] Address:[address] [place] [id number] Comment: When assessing risk for acute coronary syndromes: In patients undergoing blood drawgreater than or equal to 2 hours from symptom onset, with history of very low to moderate risk and non-ischemic ECG, an initial hs-Troponin T less than 12 ng/L AND a 1 hour delta hs-Troponin T less th an 3 ng/L should be considered very low risk for 30 day MACE.Performed By: #### 90931-0, 98844-7, 2777-1, HSTNT ####[facility] LABCLIA [id number] [address] [address] [place] Magnesium SerPl-mCncon 49-14-7775Aqhurwbwh [Mass/Vol]2.3 mg/dLNormal1.7-2.3 [facility] HospitalComment on above:Order Comment: Specimen Type: BLOOD SPECIMENOrdering Facility: [facility] Address:[address] [place] [address]Ucqthwmzu By: #### 75860-9, 22552-7, 2777-1, HSTNT ####[facility] LABCLIA [id number] [address] [address] [place] OF AMERICAPT panel Coag (PPP)on 01-25-2023 INR Coag (PPP) [Relative time]1.1 {INR}Normal0.9-1.3COhioHealth Southeastern Medical Center Comment on above:Order Comment: Specimen Type: BLOOD SPECIMENOrdering Facility: [facility] Address:[address] [place] [address] Result Comment: Vitamin K Antagonist (VKA) Therapeutic Range: INR 2 to 3 (Target INR of 2.5)Note: For patients treated with VKA drugs, such as warfarin, the [place] [employer] 2012 Guideline recommends a therapeutic INR range of 2 to 3 (target INR of 2.5). This recommendation includes high-risk patients with antiphospholipid syndrome with previous arterial or venous thromboembolism, current-generation mechanical or bioprosthetic aortic heart valve replacement.Note: Patients with mechanical aortic valve replacement and additional risk factors for thromboembolic events (atrialfibrillation, previous thromboembolism, LV dysfunction, hypercoagulable conditions) or an older gene ration mechanical AVR (i.e., ball in-Cage) or any mechanical MVR should have a INR therapeutic range of 2.5 to 3.5 (target INR of 3).Rico GH, et al. Chest 2012, 141:7S-47SZen RA, et al. [facility] 2017, 70: 252-289Performed By: #### 12795-9, 33352-7 ####[facility] LABCLIA [id number] [place] [address] [place] AMERICAPT Coag (PPP) [Time] 11.4 sNormal9.7-13.0[facility] HospitalComment on above:Order Comment: Specimen Type: BLOOD SPECIMENOrdering Facility: [facility] Address:[address] [place], [place] [address]Performed By: #### 69959-5, 70559-3 ####[facility] LABCLIA [id number] [place] [address] [place] AMERICAPhosphate SerPl-mCncon 28-57-9595Cftganpwo [Mass/Vol]4.5 mg/dLNormal2.7-4.8COhioHealth Southeastern Medical Center Comment on above:Order Comment: Specimen Type: BLOOD SPECIMENOrdering Facility: [facility] Address:[address] [place] [address] Result Comment: Result rechecked.Performed By: #### 57850-9, 24290-2, 2777-1, HSTNT ####[facility] LABCLIA [id number] [place] [address] [place] AMERICAProcalcitonin SerPl-mCncon 46-91-8933Yhjjtrbkpoqld [Mass/Vol]10.69 ng/mLHigh<0.09[facility] Comment on above:Order Comment: Specimen Type: BLOOD SPECIMENOrdering Facility: [facility] Address:[address] [place] [address] Result Comment: For a guided interpretation of test results, please visit the Change in Procalcitonin Calculator, [email or web address].Performed By: #### 79771-1 ####[facility] LABCLIA [id number] [place] [address] [place] AMERICATHERAPY NTon 90-78-5741ZUACYQP NTNormalCleveland Hugh Chatham Memorial HospitalTHERAPY NTNormalCleveland Hugh Chatham Memorial HospitalaPTT PPPon 22-27-6089qGKQ Coag (PPP) [Time]29.8 dOttkns04.0-32.4 [facility] on above:Order Comment: Specimen Type: BLOOD SPECIMENOrdering Facility: [facility] Address:[address] [place], [place] [address]Performed By: #### 19642-0, 89140-6 ####[facility] LABCLIA [id number] [place] [address] [place] AMERICAANES POSTPROC EVALon 71-96-7820DRNI POSTPROC EVALNormal [facility] HospitalANES PRE-OPon 14-19-8419XBSP PRE-OPNormalOhio State East HospitalBacteria Bld Culton 59-50-8221Fsgcdgav identified Cx Nom (Bld) CULTURE, BLOOD: No growth 5 daysNoBellevue Hospital on above:Performed By: #### 600-7 ####[facility] LABCLIA [id number] [place] [address] [place] AMERICABacteria identified Cx Nom (Bld)CULTURE, BLOOD: No growth 5 daysNormMarion Hospital on above:Performed By: #### 600-7 ####[facility] LABCLIA [id number] [place] [address] [place] AMERICABacteria Fld Culton 60-10-8849Tiwmskmt identified Cx Nom (Body fld)AbnormalWVUMedicine Barnesville Hospital on above:Performed By: #### 611-4, 635-3 ####[facility] LABCLIA [id number] [address] [address] [place] AMERICABacteria identified Cx Nom (Body fld)AbnormalOhio State East HospitalComment on above:Performed By: #### 611-4, 635-3 ####[facility] LABCLIA [id number] [address] [address] [place] AMERICABacteria Spec Anaerobe Culton 51-84-4112Ctsnmodo identified Anaer cx Nom (Unsp spec)NegativeNormalCOhioHealth Southeastern Medical Center Comment on above:Performed By: #### 635-3, 33423-7 ####[facility] LABCLIA [id number] [address] [address] [place] AMERICABacteria identified Anaer cx Nom (Unsp spec)NegativeNormal [facility] HospitalComascension [facility] on above:Performed By: #### 611-4, 635-3 ####[facility] LABCLIA [id number] [address] [address] [place] AMERICABacteria identified Anaer cx Nom (Unsp spec)NegativeNormTrumbull Memorial HospitalComascension st. [facility] on above:Performed By: #### 611-4, 635-3 ####[facility] LABCLIA [id number] [address] [address] [place] AMERICABacteria identified Anaer cx Nom (Unsp spec)NegativeNormalCOhioHealth Southeastern Medical Center Comment on above:Performed By: #### 43130-5, 635-3 ####[facility] LABCLIA [id number] [address] [address] [place] AMERICABacteria identified Anaer cx Nom (Unsp spec)NegativeNormal [facility] HospitalComment on above:Performed By: #### 635-3, 71039-8 ####[facility] LABCLIA [id number] [place] [address] [place] [facility] MED[facility] CENTERBacteria Tiss Culton 01-24-2023 Bacteria identified Cx Nom (Tiss)AbnormalWVUMedicine Barnesville Hospital on above:Performed By: #### 635-3, 20127-5 ####[facility] LABIA [id number] [place] [address] [place] AMERICABacteria identified Cx Nom (Tiss)ORGANISM ID: 1 Many Streptococcus pyogenes (group a streptococcus) Refer to specimen collected on 01/24/2023 at 0807 ([id number]) GRAM STAIN: Many Gram positive cocci Moderate Polymorphonuclear leukocytes Moderate Mononuclear cellsAbnoBellevue Hospital on above: Performed By: #### 23308-4, 635-3 ####[facility] [id number] [address] [place] Bacteria identified Cx Nom (Tiss)ORGANISM ID: 1 Many Streptococcus pyogenes (group a streptococcus) Refer to specimen collected on 01/24/2023 at 0807 ([id number]) GRAM STAIN: Many Gram positive cocci Few Polymorphonuclear leukocytes Few Mononuclear cellsAbnoBellevue Hospital on above: Performed By: #### 635-3, 74297-6 ####[facility] LABIA [id number] [place] [address] [place] CARDIAC POCUSon 68-41-8986HCITMUS POCUSNormalCOhioHealth Southeastern Medical CenterCB panel Auto (Bld)on 55-76-2502Mptyggmcsha distribution width (RBC) [Ratio]14.9 %Normal 11.5-15.0[facility] on above:Order Comment: Specimen Type: BLOOD SPECIMENOrdering Facility: [facility] Address:[address] [place] [phone] By: #### 49641-9 ####[facility] LABIA [id number] [place] [address] [place] AMERICAHematocrit (Bld) [Volume fraction]31.1 %Low 39.0-51.0[facility] on above:Order Comment: Specimen Type: BLOOD SPECIMENOrdering Facility: [facility] Address:[address] [place], [place] [address]Performed By: #### 34720-0 ####[facility] LABCLIA [id number] [place] [address] [place] AMERICAHemoglobin (Bld) [Mass/Vol]10.5 g/dLLow13.0-17.0 [facility] on above:Order Comment: Specimen Type: BLOOD SPECIMENOrdering Facility: [facility] Address:[address] [place], [place] [address]Performed By: #### 67205-1 ####[facility] LABCLIA [id number] [place] [address] [place] AMERICAMCH (RBC) [Entitic mass]25.5 pgLow26.0-34.0[facility] on above:Order Comment: Specimen Type: BLOOD SPECIMENOrdering Facility: [facility] Address:[address] [place], [place] [address]Performed By: #### 08215-9 ####[facility] LABCLIA [id number] [place] [address] [place] MCHC (RBC) [Mass/Vol]33.8 g/nOJgivof28.5-36.0[facility] on above:Order Comment: Specimen Type: BLOOD SPECIMENOrdering Facility: [facility] Address:[address] [place], [place] [address] Performed By: #### 82469-5 ####[facility] LABCLIA [id number] [place] [address] [place] MCV (RBC) [Entitic vol]75.7 fLLow80.0-100.0[facility] on above:Order Comment: Specimen Type: BLOOD SPECIMENOrdering Facility: [facility] Address:[address] [place], [place] [address]Performed By: #### 43681-5 ####[facility] LABCLIA [id number] [place] [address] [place] AMERICANucleated RBC (Bld) [#/Vol]10*3/uLNormal<0.01[facility] on above:Order Comment: Specimen Type: BLOOD SPECIMENOrdering Facility: [facility] Address:[address] [place], [place] [address]Performed By: #### 95268-0 ####[facility] LABIA [id number] [address] STATES OF AMERICAPlatelet mean volume (Bld) [Entitic vol]11.9 fLNormal9.0-12.7CMercer County Community Hospital on above:Order Comment: Specimen Type: BLOOD SPECIMENOrdering Facility: [facility] Address:[address] [place], [place] [address]Performed By: #### 40622-6 ####[facility] LABIA [id number] [place] [address] [place] AMERICAPlatelets (Bld) [#/Vol]155 10*3/kHNulrwi623-420RtpnupivgWVUMedicine Barnesville Hospital on above:Order Comment: Specimen Type: BLOOD SPECIMENOrdering Facility: [facility] Address:[address] [place], [place] [address]Result Comment: Results checked and verified.No clot detected.Performed By: #### 67000-4 ####[facility] LABIA [id number] [place] [address] [place] AMERICARBC (Bld) [#/Vol]4.11 10*6/uLLow 4.20-6.00[facility] on above:Order Comment: Specimen Type: BLOOD SPECIMENOrdering Facility: [facility] Address:[address] [place] [address]Performed By: #### 00894-8 ####[facility] LABIA [id number] [place] [address] [place] AMERICAWBC (Bld) [#/Vol]38.68 10*3/uLHigh3.70-11.00 [facility] on above:Order Comment: Specimen Type: BLOOD SPECIMENOrdering Facility: [facility] Address:[address] [place], [place] [address]Performed By: #### 15680-6 ####[facility] LABIA [id number] [place] [address] [place] AMERICAErythrocyte distribution width (RBC) [Ratio]14.7 %Normal 11.5-15.0[facility] on above:Order Comment: Specimen Type: BLOOD SPECIMENOrdering Facility: [facility] Address:[address] [place], [place] [address]Performed By: #### 17990-5 ####[facility] LABIA [id number] [address] STATES OF AMERICAHematocrit (Bld) [Volume fraction]38.2 %Low 39.0-51.0[facility] on above:Order Comment: Specimen Type: BLOOD SPECIMENOrdering Facility: [facility] Address:[address] [place] [phone] By: #### 86171-1 ####[facility] LABIA [id number] [place] [address] [place] AMERICAHemoglobin (Bld) [Mass/Vol]13.1 g/dLNormal 13.0-17.0[facility] on above:Order Comment: Specimen Type: BLOOD SPECIMENOrdering Facility: [facility] Address:[address] [place] [address]Performed By: #### 28583-3 ####[facility] LABCLIA [id number] [address]ETMCH (RBC) [Entitic mass]25.9 pgLow26.0-34.0 [facility] on above:Order Comment: Specimen Type: BLOOD SPECIMENOrdering Facility: [facility] Address:[address] [place], [place] [address]Performed By: #### 77909-5 ####[facility] LABIA [id number] [address]HC (RBC) [Mass/Vol]34.3 g/gQCfuudr09.5-36.0[facility] on above:Order Comment: Specimen Type: BLOOD SPECIMENOrdering Facility: [facility] Address:[address] [place], [place] [address]Performed By: #### 94774-2 ####[facility] LABIA [id number] [address] STATES OF [facility] MCV (RBC) [Entitic vol]75.6 fLLow80.0-100.0[facility] on above:Order Comment: Specimen Type: BLOOD SPECIMENOrdering Facility: [facility] Address:[address] [place], [place] [address]Performed By: #### 90529-5 ####[facility] LABIA [id number] [address]ucleated RBC (Bld) [#/Vol]10*3/uLNormal<0.01[facility] on above:Order Comment: Specimen Type: BLOOD SPECIMENOrdering Facility: [facility] Address:[address] [place] [address]Performed By: #### 79239-3 ####[facility] LABIA [id number] [address] STATES OF AMERICAPlatelet mean volume (Bld) [Entitic vol]12.5 fLNormal9.0-12.7CMercer County Community Hospital on above:Order Comment: Specimen Type: BLOOD SPECIMENOrdering Facility: [facility] Address:[address] [place], [place] [address]Performed By: #### 25189-8 ####[facility] LABCLIA [id number] [place] [address] [place] AMERICAPlatelets (Bld) [#/Vol]145 10*3/rAVqm442-977PjodulztrWVUMedicine Barnesville Hospital on above:Order Comment: Specimen Type: BLOOD SPECIMENOrdering Facility: [facility] Address:[address] [place], [place] [address]Performed By: #### 32299-1 ####[facility] LABCLIA [id number] [place] [address] [place] AMERICARBC (Bld) [#/Vol]5.05 10*6/uLNormal4.20-6.00[facility] on above:Order Comment: Specimen Type: BLOOD SPECIMENOrdering Facility: [facility] Address:[address] [place] [phone] By: #### 65948-2 ####[facility] LABCLIA [id number] [place] [address] [place] AMERICAWBC (Bld) [#/Vol]41.33 10*3/uL High3.70-11.00[facility] on above:Order Comment: Specimen Type: BLOOD SPECIMENOrdering Facility: [facility] Address:[address] [place] [phone] By: #### 68600-7 ####[facility] LABCLIA [id number] [address] STATES OF AMERICACONSULTon 42-81-1560RFDHYXXOkginbNnvufrjia Clinic ClevelandCONSULTNormalCOhioHealth Southeastern Medical CenterCONSULT PROGon 17-37-3291QNFVPWA PROGNormalOhio State East HospitalCRP SerPl-mCncon 32-25-7872KVR [Mass/Vol] 29.7 mg/dLHigh<0.9CMercer County Community Hospital on above:Order Comment: Specimen Type: BLOOD SPECIMENOrdering Facility: [facility] Address:[address] [place], [place] [address]Performed By: #### 1988-5, 33199-1, 2777-1, HSTNT, 62595-0 ####[facility] LABCLIA [id number] [place] [address] [facility] metabolic 2000 panelon 25-28-5100Cerlxnl [Mass/Vol]1.7 g/dLLow 3.9-4.9CMercer County Community Hospital on above:Order Comment: Specimen Type: BLOOD SPECIMENOrdering Facility: [facility] Address:[address] [place], [place] [address]Performed By: #### 87050-6, 2777-1, 74250-2 ####[facility] LABCLIA [id number] VILLE [address] [place] AMERICAALP [Catalytic activity/Vol]127 U/BQxgc75-576IxubhtfdlWVUMedicine Barnes[facility] Hospital on above:Order Comment: Specimen Type: BLOOD SPECIMENOrdering Facility: [facility] Address:[address] [place], [place] [address]Performed By: #### 78101-5, 2777-, 47944-2 ####[facility] LABIA [id number] VILLE [address] [facility] OF AMERICAALT [Catalytic activity/Vol]48 U/YOxkoeo10-30OsjqdwappWVUMedicine Barnes[facility] Hospital on above:Order Comment: Specimen Type: BLOOD SPECIMENOrdering Facility: [facility] Address:[address] [place], [place] [address]Result Comment: Results may be falsely increased due to interference from hemolysis. Suggest reorder as clinically indicated.Performed By: #### 41409-1, 2777-1, 58773-1 ####[facility] LABCLIA [id number] VILLE [address] [place] AMERICAAnion gap [Moles/Vol]16 mmol/LNormal9-18[facility] on above:Order Comment: Specimen Type: BLOOD SPECIMENOrdering Facility: [facility] Address:[address] [place], [place] [address]Performed By: #### 97533-8, 2777-1, 44246-7 ####[facility] LABIA [id number], [place] [address] [place] AMERICAAST [Catalytic activity/Vol]39 U/CYqyeyp56-56QwbhswxitWVUMedicine [facility] Hospital on above:Order Comment: Specimen Type: BLOOD SPECIMENOrdering Facility: [facility] Address:[address] [place], [place] [address]Result Comment: Results may be falsely increased due to interference from hemolysis. Suggest reorder as clinically indicated.Performed By: #### 87997-4, 2777-1, 36798-9 ####[facility] LABIA [id number] [place] [address] [place] AMERICABilirubin [Mass/Vol]1.8 mg/dLHigh0.2-1.3CMercer County Community Hospital on above:Order Comment: Specimen Type: BLOOD SPECIMENOrdering Facility: [facility] Address:[address] [place], [place] [address]Performed By: #### 89718-9, 2777-1, 49665-8 ####[facility] LABIA [id number] [place] [address] [place] AMERICACalcium [Mass/Vol]7.2 mg/dLLow8.5-10.2CMercer County Community Hospital on above:Order Comment: Specimen Type: BLOOD SPECIMENOrdering Facility: [facility] Address:[address] [place] [address]Performed By: #### 42741-2, 2777-1, 92230-9 ####[facility] LABCLIA [id number] [place] [id number] [place] AMERICAChloride [Moles/Vol]101 mmol/XPwfrpj45-120RpqesjzbbWVUMedicine Barnesville Hospital on above: Order Comment: Specimen Type: BLOOD SPECIMENOrdering Facility: [facility] Address:[address] [place], [place] [address] [place] [address]Performed By: #### 37358-8, 2777-, 23014-2 ####[facility] LABIA [id number] [place] [address] [place] AMERICACO2 [Moles/Vol] 15 mmol/EZiq09-36AdkajxcrvOhio State East HospitalComascension st. john hospital on above:Order Comment: Specimen Type: BLOOD SPECIMENOrdering Facility: [facility] Address:[address] [place], [place] [address]Performed By: #### 82236-3, 2777, 33867-6 ####[facility] LABIA [id number], [place] [address] [place] AMERICACreatinine [Mass/Vol] 1.63 mg/dLHigh0.73-1.22[facility] HospitalComascension [facility] on above:Order Comment: Specimen Type: BLOOD SPECIMENOrdering Facility: [facility] Address:[address] [place] [phone] By: #### 12461-5, 2777-, 80494-3 ####[facility] LABVERMONT STATE [facility] [id number] VILLE [id number] [place] AMERICAESTIMATED GLOMERULAR FILTRATION RATE48 mL/min/1.73m???Low>=60[facility] on above:Order Comment: Specimen Type: BLOOD SPECIMENOrdering Facility: [facility] Address:[address] [place], [place] [address]Result Comment: Estimated Glomerular Filtration Rate (eGFR) is calculated using the 2020 CKD-EPI creatinine equation. This equation utilizes serum creatinine, sex, and age as parameters. The creatinine assay has traceable calibration to isotope dilution-mass spectrometry. Refer to KDIGO guidelines for clinical interpretation. In patients with unstable renal function, e.g. those with acute kidney injury, the eGFR may not accurately reflect actual GFR.Performed By: #### 82048-6, 2776-11, 03906-3 ####[facility] LABCLIA [id number] [address] [place] Glucose [Mass/Vol]140 mg/mNFydi28-95WrteqnhkqWVUMedicine Barnesville Hospital on above: Order Comment: Specimen Type: BLOOD SPECIMENOrdering Facility: [facility] Address:[address] [place], [place] [address]Result Comment: The [place] [employer] (ADA) provides guidance for cutoff values for fast ing glucose and random glucose. The ADA defines fasting as no caloric intake for at least 8 hours. Fasting plasma glucose results between 100 to 125 mg/dL indicate increased risk for diabetes (prediabetes).Fasting plasma glucose results greater than or equal to 126 mg/dL meet the criteria for diagnosis of diabetes. In the absence of unequivocal hyperglycemia, results should be confirmed by repeattesting. In a patient with classic symptoms of hyperglycemia or hyperglycemic crisis, random plasmaglucose results greater than or equal to 200 mg/dL meet the criteria for diagnosis of diabetes.Reference: Standards of Medical Care in Diabetes 2016, [place] [employer]. Diabetes Care. 2016.39(Suppl 1).Performed By: #### 69873-3, 2776-11, ####[facility] LABCLIA [id number] [address] [place] AMERICAPotassium [Moles/Vol]5.8 mmol/LHigh3.7-5.1 [facility] on above:Order Comment: Specimen Type: BLOOD SPECIMENOrdering Facility: [facility] Address:[address] [place] [phone] By: #### 21960-7, 27705-14, ####[facility] LABCLIA [id number] [address] [place] AMERICAProtein [Mass/Vol]4.7 g/dLLow 6.3-8.0[facility] on above:Order Comment: Specimen Type: BLOOD SPECIMENOrdering Facility: [facility] Address:[address] [place], [place] [address]Performed By: #### 79888-5, 2777-1, 31112-6 ####[facility] LABCLIA [id number], [place] [address] [place] AMERICASodium [Moles/Vol]132 mmol/LLow 136-144[facility] on above:Order Comment: Specimen Type: BLOOD SPECIMENOrdering Facility: [facility] Address:[address] [place], [place] [address]Performed By: #### 79671-0, 2777-1, 44704-8 ####[facility] LABIA [id number], [place] [address] [place] AMERICAUrea nitrogen [Mass/Vol]64 mg/dL High9-24[facility] on above:Order Comment: Specimen Type: BLOOD SPECIMENOrdering Facility: [facility] Address:[address] [place], [place] [address]Performed By: #### 78116-9, 2777-1, 24310-9 ####[facility] LABIA [id number] [address] [place] AMERICAAlbumin [Mass/Vol]1.9 g/dLLow 3.9-4.9CMercer County Community Hospital on above:Order Comment: Specimen Type: BLOOD SPECIMENOrdering Facility: [facility] Address:[address] [place], [place] [address]Performed By: #### 18586-6, 91710-6 ####[facility] LABIA [id number] [address]QLKUXPWZ, [place] [address] [place] AMERICAALP [Catalytic activity/Vol]167 U/JPbfv05-757 [facility] on above:Order Comment: Specimen Type: BLOOD SPECIMENOrdering Facility: [facility] Address:[address] [place] [address]Performed By: #### 94416-8, 24005-1 ####[facility] LABCLIA [id number] [place] [address] [place] [Catalytic activity/Vol]77 U/DDqpf92-60BdjxoghvvWVUMedicine [facility] on above:Order Comment: Specimen Type: BLOOD SPECIMENOrdering Facility: [facility] Address:[address] [place] [address]Performed By: #### 92858-6, 59910-2 ####[facility] LABCLIA [id number] [place] [address] [place] AMERICAAnion gap [Moles/Vol]19 mmol/LHigh9-18[facility] on above:Order Comment: Specimen Type: BLOOD SPECIMENOrdering Facility: [facility] Address:[address] [place] [address]Performed By: #### 54039-7, 13304-6 ####[facility] LABCLIA [id number] [place] [address] [place] AMER[place]AAST [Catalytic activity/Vol]50 U/ONskk78-41WrwzktjddOhio State [facility] Comment on above:Order Comment: Specimen Type: BLOOD SPECIMENOrdering Facility: [facility] Address:[address] [place] [address] Performed By: #### 52999-8, 82682-4 ####[facility] LABCLIA [id number] [place] [address] [place] Bilirubin [Mass/Vol]2.1 mg/dLHigh0.2-1.3CMercer County Community Hospital on above:Order Comment: Specimen Type: BLOOD SPECIMENOrdering Facility: [facility] Address:[address] [place], [place] [address]Performed By: #### 08906-2, 36009-0 ####[facility] LABCLIA [id number] [place] [address] [place] AMERICACalcium [Mass/Vol]7.6 mg/dLLow8.5-10.2CMercer County Community Hospital on above:Order Comment: Specimen Type: BLOOD SPECIMENOrdering Facility: [facility] Address:[address] [place], [place] [address]Performed By: #### 71186-5, 53144-0 ####[facility] LABCLIA [id number] [place] [address] [place] AMERICAChloride [Moles/Vol]98 mmol/BHbtytz59-604JjffdgjfsWVUMedicine Barnesville Hospital on above:Order Comment: Specimen Type: BLOOD SPECIMENOrdering Facility: [facility] Address:[address] [place], [place] [address]Performed By: #### 54131-0, 84323-7 ####[facility] LABCLIA [id number] [facility] [place] [address] [place] AMERICACO2 [Moles/Vol]16 mmol/XWak42-73WzehdtyciWVUMedicine Barnesville Hospital on above:Order Comment: Specimen Type: BLOOD SPECIMENOrdering Facility: [facility] Address:[address] [place] [address]Performed By: #### 67941-8, 54405-4 ####[facility] LABCLIA [id number] [place] [address] [place] AMERICACreatinine [Mass/Vol]1.84 mg/dL High0.73-1.22[facility] on above:Order Comment: Specimen Type: BLOOD SPECIMENOrdering Facility: [facility] Address:[address] [place], [place] [address]Performed By: #### 60275-5, 86229-6 ####[facility] LABCLIA [id number] [place] [address] [place] AMERICAESTIMATED GLOMERULAR FILTRATION RATE42 mL/min/1.73m???Low>=60[facility] on above:Order Comment: Specimen Type: BLOOD SPECIMENOrdering Facility: [facility] Address:[address] [place], [place] [address]Result Comment: Estimated Glomerular Filtration Rate (eGFR) is calculated using the 2020 CKD-EPI creatinine equation. This equation utilizes serum creatinine, sex, and age as parameters. The creatinine assay has traceable calibration to isotope dilution- mass spectrometry. Refer to KDIGO guidelines for clinical interpretation. In patients with unstable renal function, e.g. those with acute kidney injury, the eGFR may not accurately reflect actual GFR.Performed By: #### 93296-3, 62831-8 ####[facility] LABIA [id number] [place] [address] [place] AMERICAGlucose [Mass/Vol]94 mg/dLNormal 74-99[facility] on above:Order Comment: Specimen Type: BLOOD SPECIMENOrdering Facility: [facility] Address:[address] [place], [place] [address]Result Comment: The [place] Diabetes Association (ADA) provides guidance for cutoff values for fasting glucose and random glucose. The ADA defines fasting as no caloric intake for at least 8 hours. F asting plasma glucose results between 100 to 125 mg/dL indicate increased risk for diabetes (prediabetes).Fasting plasma glucose results greater than or equal to 126 mg/dL meet the criteria for diagnosis of diabetes. In the absence of unequivocal hyperglycemia, results should be confirmed by repeattesting. In a patient with classic symptoms of hyperglycemia or hyperglycemic crisis, random plasmaglucose results greater than or equal to 200 mg/dL meet the criteria for diagnosis of diabetes.Reference: Standards of Medical Care in Diabetes 2016, [place] [employer]. Diabetes Care. 2016.39(Suppl 1).Performed By: #### 58740-3, 95891-6 ####[facility] LABIA [id number] [place] [id number] [place] AMERICAPotassium [Moles/Vol]5.0 mmol/LNormal3.7-5.1CMercer County Community Hospital on above: Order Comment: Specimen Type: BLOOD SPECIMENOrdering Facility: [facility] Address:[address] [place], [place] [address]Performed By: #### 07455-2, 74945-6 ####[facility] LABCLIA [id number] [place] [address] [place] AMERICAProtein [Mass/Vol]4.6 g/dLLow6.3-8.0[facility] on above:Order Comment: Specimen Type: BLOOD SPECIMENOrdering Facility: [facility] Address:[address] [place], [place] [address]Performed By: #### 40823-6, 36421-0 ####[facility] LABIA [id number] [place] [address] [place] AMERICASodium [Moles/Vol]133 mmol/LLow 136-144[facility] on above:Order Comment: Specimen Type: BLOOD SPECIMENOrdering Facility: [facility] Address:[address] [place], [place] [address]Performed By: #### 53994-7, 02777-9 ####[facility] LABIA [id number] [place] [address] [place] AMERICAUrea nitrogen [Mass/Vol]64 mg/dLHigh9-24[facility] on above:Order Comment: Specimen Type: BLOOD SPECIMENOrdering Facility: [facility] Address:[address] [place], [place] [address]Performed By: #### 08369-2, 88240-0 ####[facility] LABCLIA [id number] [place] [address] [place] AMERICAECG COMPLETEon 06-26-1167WOE COMPLETENormalCCleveland Clinic [facility]ucl[facility] URINE PROFILEon 32-50-8684Khxgiyrgw Ql (U)MODERATEAbnormal NEGATIVEParkview HealthComment on above:Performed By: #### HU, ERUR #### [facility] [address] [address] [address] Good Taylorarity (U)CLEARNormalCLEARParkview HealthComment on above: Performed By: #### HU, ERUR #### [facility] [address] [address] [address] Good Voss (U)DK. YELLOWNormalYELLOWParkview HealthComment on above:Performed By: #### HU, ERUR #### [facility] [address] [place] [address] Dr. Good Rivera micrscopic examination will be performed if indicated. NormalParkview HealthComment on above:Performed By: #### HU, ERUR #### [facility] [address] [address] [address] Good CastellanoGlucose Ql (U)100 mg/dlAbnormalNEGChildren's Hospital for Rehabilitation Comment on above:Performed By: #### HU, ERUR #### [facility] [address] [address] [address] Good CastellanoHemoglobin Ql (U)SMALLAbnormalNEGChildren's Hospital for Rehabilitation Comment on above:Performed By: #### HU, ERUR #### [facility] [address] [address] [address] Good Laurenones Ql (U)NegativeNormalNEGATIVEParkview HealthComment on above:Performed By: #### HU, ERUR #### [facility] [address] [address] [address] Good CastellanoLEUKOCYTESNegativeNormalNEGATIVEParkview HealthComment on above:Performed By: #### HU, ERUR #### [facility] [address] [address] [address] Good CastellanoNitrite Ql (U)NegativeNormalNEGATIVEParkview HealthComment on above:Performed By: #### HU ERUR #### [facility] [address] [address] [address] Good CastellanopH (U)5.0 [pH]Normal5-9The [facility] HospitalComment on above: Performed By: #### HU ERUR #### [facility] [address] [address] [address] Good CastellanoProtein (U) [Mass/Vol]30 mg/dLAbnormalNEGATIVE/ TRACEThe [facility] HospitalComment on above:Performed By: #### HU ERUR #### [facility] [address] [place] [address] Dr. Good CastellanoSPEC GRAVITY1.782Drjuqh7.005-<=1.025The [facility] HospitalComment on above:Performed By: #### HU ERUR #### [facility] [address] [address] [address] Good Sherman MICRO INDINDICATEDNormalThe [facility] HospitalComment on above: Performed By: #### HU ERUR #### [facility] [address] [place] [address] Dr. Good Dai Qn (U)4 {Jan'U}/dLAbnormal0.2 - 1.0The [facility] HospitalComment on above:Performed By: #### HU ERUR #### [facility] [address] [place] [address] Dr. Funk ChangESR Eris method (Bld) [Velocity]on 88-53-5864QUT (Bld) [Velocity]55 mm/hHigh0-15Ohio State East HospitalComment on above:Order Comment: Specimen Type: BLOOD SPECIMENOrdering Facility: [facility] Address:[address] [place], [place] [address]Performed By: #### 4537-7, 66291-6 ####[facility] LABCLIA [id number] 55 Perez Streetbrinogen PPP-mCncon 34-34-7930Gqvblffhfh Coag (PPP) [Mass/Vol]mg/jBOabg460-418XkhiqzvjjWVUMedicine [facility]ville Hospital on above:Order Comment: Specimen Type: BLOOD SPECIMENOrdering Facility: [facility] Address:[address] [place], [place] [address]Result Comment: Sample checked for clot.Result rechecked.Performed By: #### 34521-4, 3255-7 ####[facility] LABCLIA [id number] [address] OF [facility] CENTERGas and Carbon monoxide panel (BldV)on 72-16-6085CNBS DEFICIT, VENOUS-5 mmol/TBqg-2-7AfiqugwqaWVUMedicine [facility]ville Hospital on above:Order Comment: Specimen Type: VENOUS BLOOD SPECIMENOrdering Facility: [facility] Address: [address] [place], [place] [address]Performed By: #### 04331-1 ####[facility] LABIA [id number] [place] [address] [place] AMERICABody syezuvcyhtz09.78 [degF]NormalOhio State East Hospital Comment on above:Order Comment: Specimen Type: VENOUS BLOOD SPECIMENOrdering Facility: [facility] Address: [address] [place], [place] [address]Performed By: #### 82662-9 ####[facility] LABIA [id number] [place] [address] [place] Calcium.ionized (Bld) [Mass/Vol]1.12 mmol/LNormal1.08-1.30[facility] on above:Order Comment: Specimen Type: VENOUS BLOOD SPECIMENOrdering Facility: [facility] Address: [address] [place], [place] [address]Performed By: #### 34723-1 ####[facility] LABIA [id number] [place] [address] [place] AMERICACalcium.ionized adjusted to pH 7.4 (BldA) [Moles/Vol]1.12 mmol/LNormal1.08-1.30[facility] on above:Order Comment: Specimen Type: VENOUS BLOOD SPECIMENOrdering Facility: [facility] Address: [address] [place], [place] [address]Performed By: #### 89461-9 ####[facility] LABIA [id number] [address] STATES OF AMERICACarboxyhemoglobin (BldV) [Mass fraction]1.2 %Normal0.0-2.0[facility] on above:Order Comment: Specimen Type: VENOUS BLOOD SPECIMENOrdering Facility: [facility] Address: [address] [place] [address] Result Comment: Carboxyhemoglobin Reference Range for Smokers: 2.0-8.0%Performed By: #### 23178-8 ####[facility] LABIA [id number] [place] [address] [place] AMERICACO2 (BldV) [Partial pressure]32 mm[Hg]Ydj50-66PxdwwpgsjWVUMedicine Barnesville Hospital on above:Order Comment: Specimen Type: VENOUS BLOOD SPECIMENOrdering Facility: [facility] Address: [address] [place], [place] [address]Performed By: #### 75892-1 ####[facility] LABIA [id number] [place] [address] [place] AMERICACO2 [Moles/Vol]20 mmol/YZuh76-63IjbppioooWVUMedicine [facility]ville Hospital on above:Order Comment: Specimen Type: VENOUS BLOOD SPECIMENOrdering Facility: [facility] Ad dress: [address] [place], [place] [address]Performed By: #### 00746-9 ####[facility] LABIA [id number] [place] [address] [place] AMERICACO2 adjusted to patient's actual temperature (BldV) [Partial pressure]32 adRtJls45-14WdpqjlkdmOhio State East Hospital Comment on above:Order Comment: Specimen Type: VENOUS BLOOD SPECIMENOrdering Facility: [facility] Address: [address] [place], [place] [address]Performed By: #### 44258-4 ####[facility] LABCLIA [id number] [place] [address] [place] Glucose [Mass/Vol]236 mg/fMGvho92-852UgbkblegdWVUMedicine [facility] Hospital on above: Order Comment: Specimen Type: VENOUS BLOOD SPECIMENOrdering Facility: [facility] Address: [address] [place], [place] [address]Performed By: #### 49978-9 ####[facility] LABIA [id number] [place] [address] [place] AMERICAHCO3 (Bld) [Moles/Vol] 19 mmol/LQae70-37QhjvjzzpwSumma Health Akron Campusment on above:Order Comment: Specimen Type: VENOUS BLOOD SPECIMENOrdering Facility: [facility] Address: [address] [place], [place] [address]Performed By: #### 28888-5 ####[facility] LABIA [id number] [place] [address] [place] AMERICAHematocrit (Bld) [Volume fraction]23.3 %Low39.0-51.0[facility] on above: Order Comment: Specimen Type: VENOUS BLOOD SPECIMENOrdering Facility: [facility] Address: [address] [place] [phone] By: #### 18888-9 ####[facility] LABIA [id number] [place] [address] [place] AMERICAHemoglobin (Bld) [Mass/Vol]7.5 g/dLLow13.0-17.0[facility] on above:Order Comment: Specimen Type: VENOUS BLOOD SPECIMENOrdering Facility: [facility] Address: [address] [place], [place] [address]Performed By: #### 11719-6 ####[facility] LABCLIA [id number] [place] [address] [place] AMERICALactate [Moles/Vol]1.3 mmol/LNormal0.5-2.2CMercer County Community Hospital on above:Order Comment: Specimen Type: VENOUS BLOOD SPECIMENOrdering Facility: [facility] Address: [address] [place] [address]Performed By: #### 07375-5 ####[facility] LABCLIA [id number] [place] [address] [place] AMERICALITERS2 Liters/min NormalWVUMedicine Barnesville Hospital on above:Order Comment: Specimen Type: VENOUS BLOOD SPECIMENOrdering Facility: [facility] Address: [address] [place], [place] [address]Performed By: #### 83658-6 ####[facility] LABCLIA [id number] [place] [address] [place] AMERICAMethemoglobin (Bld) [Mass fraction]1.7 %High0.0-1.5CMercer County Community Hospital on above:Order Comment: Specimen Type: VENOUS BLOOD SPECIMENOrdering Facility: [facility] Address: [address] [place] [phone] By: #### 96859-9 ####[facility] LABCLIA [id number] [place] [address] [place] AMERICAO2 THERAPYNC = Nasal CannulaNormalCMercer County Community Hospital on above:Order Comment: Specimen Type: VENOUS BLOOD SPECIMENOrdering Facility: [facility] Ad dress: [address] [place] [phone] By: #### 08525-6 ####[facility] LABCLIA [id number] [place] [address] [place] AMERICAOxygen (BldV) [Partial pressure] 92 mm[Hg]Xekb69-66KtebgryvoWVUMedicine Barnesville Hospital on above:Order Comment: Specimen Type: VENOUS BLOOD SPECIMENOrdering Facility: [facility] Address: [address] [place], [place] [address]Performed By: #### 87976-5 ####[facility] LABCLIA [id number] [place] [address] [place] AMERICAOxygen adjusted to patient's actual temperature (BldV) [Partial pressure]92 evPkFuql59-36ClusnglyyOhio State East HospitalComment on above:Order Comment: Specimen Type: VENOUS BLOOD SPECIMENOrdering Facility: [facility] Address: [address] [place], [place] [address]Performed By: #### 29842-9 ####[facility] LABCLIA [id number] [place] [address] [place] AMERICAOxygen saturation in Venous blood97 %Felh69-74AvdzaksitOhio State East HospitalComment on above:Order Comment: Specimen Type: VENOUS BLOOD SPECIMENOrdering Facility: [facility] Address: [address] [place], [place] [address]Performed By: #### 52545-9 ####[facility] LABCLIA [id number] [place] [address] [place] AMERICAOxyhemoglobin (BldV) [Mass fraction]94 %Sqcz05-24NhltvynoaWVUMedicine Barnesville Hospital on above:Order Comment: Specimen Type: VENOUS BLOOD SPECIMENOrdering Facility: [facility] Address: [address] [place] [address]Performed By: #### 29745-3 ####[facility] LABCLIA [id number] [place] [address] [place] AMERICApH (BldV)7.39 [pH]Normal7.32-7.42[facility] Comment on above:Order Comment: Specimen Type: VENOUS BLOOD SPECIMENOrdering Facility: [facility] Address: [address] [place], [place] [address]Performed By: #### 51185-6 ####[facility] LABCLIA [id number] [place] [address] [place] pH adjusted to patient's actual temperature (BldV)7.05Cbrbye3.32-7.42[facility] on above:Order Comment: Specimen Type: VENOUS BLOOD SPECIMENOrdering Facility: [facility] Address: [address] [place], [place] [address]Performed By: #### 80395-9 ####[facility] LABCLIA [id number] [place] [address] [place] AMERICAPotassium [Moles/Vol]3.9 mmol/LNormal3.5-5.0Sum[facility] Health [facility]ron Campusment on above:Order Comment: Specimen Type: VENOUS BLOOD SPECIMENOrdering Facility: [facility] Address: [address] [place], [place] [address]Performed By: #### 11844-5 ####[facility] LABIA [id number] [place] [address] [place] [facility] CENTERSodium [Moles/Vol]127 mmol/MMva104-838AqivkqbjrWVUMedicine Barnesville Hospital on above:Order Comment: Specimen Type: VENOUS BLOOD SPECIMENOrdering Facility: [facility] Address: [address] [place] [address]Performed By: #### 48106-9 ####[facility] LABIA [id number] [place] [address] [place] AMERICABASE DEFICIT, VENOUS-5 mmol/GStv-4-3SnsvwrtmfOhio State East Hospital Comment on above:Order Comment: Specimen Type: VENOUS BLOOD SPECIMENOrdering Facility: [facility] Address: [address] [place] [address]Performed By: #### 18976-3 ####[facility] LABIA [id number] [place] [address] [place] Body tuskhugolhq45.78 [degF]NormalClePremier Health Miami [facility] South on above: Order Comment: Specimen Type: VENOUS BLOOD SPECIMENOrdering Facility: [facility] Address: [address] [place], [place] [address]Performed By: #### 22697-6 ####[facility] LABCLIA [id number] [place] [address] [place] AMERICACalcium.ionized (Bld) [Mass/Vol]0.87 mmol/LLow1.08-1.30[facility] on above: Order Comment: Specimen Type: VENOUS BLOOD SPECIMENOrdering Facility: [facility] Address: [address] [place], [place] [address]Performed By: #### 30375-5 ####[facility] LABIA [id number] [place] [address] [place] AMERICACalcium.ionized adjusted to pH 7.4 (BldA) [Moles/Vol]0.86 mmol/LLow1.08-1.30[facility] on above:Order Comment: Specimen Type: VENOUS BLOOD SPECIMENOrdering Facility: [facility] Address: [address] [place], [place] [address]Performed By: #### 13358-9 ####[facility] LABIA [id number] [place] [address] [place] AMERICACarboxyhemoglobin (BldV) [Mass fraction]1.0 %Normal0.0-2.0 [facility] on above:Order Comment: Specimen Type: VENOUS BLOOD SPECIMENOrdering Facility: [facility] Address: [address] [place], [place] [address]Result Comment: Carboxyhemoglobin Reference Range for Smokers: 2.0-8.0%Performed By: #### 33203-2 ####[facility] LABIA [id number] [place] [address] [place] AMERICACO2 (BldV) [Partial pressure]32 mm[Hg]Jdr28-44IjvsixeryWVUMedicine Barnesville Hospital on above:Order Comment: Specimen Type: VENOUS BLOOD SPECIMENOrdering Facility: [facility] Address: [address] [place], [place] [address]Performed By: #### 74475-8 ####[facility] LABCLIA [id number] [place] [address] [place] AMERICACO2 [Moles/Vol]20 mmol/VZnv49-07XdmzfmeuyOhio State East Hospital Comment on above:Order Comment: Specimen Type: VENOUS BLOOD SPECIMENOrdering Facility: [facility] Address: [address] [place], [place] [address]Performed By: #### 59206-2 ####[facility] LABCLIA [id number] [place] [address] [place] CO2 adjusted to patient's actual temperature (BldV) [Partial pressure]32 mmHgLow 42-55[facility] on above:Order Comment: Specimen Type: VENOUS BLOOD SPECIMENOrdering Facility: [facility] Address: [address] [place] [address]Performed By: #### 47180-7 ####[facility] LABCLIA [id number] [place] [address] [place] AMERICACOMMENTSUrgent Value: ICA NCA NormalWVUMedicine [facility] Hospital on above:Order Comment: Specimen Type: VENOUS BLOOD SPECIMENOrdering Facility: [facility] Address: [address] [place] [phone] By: #### 06427-0 ####[facility] LABCLIA [id number] [place] [address] [place] AMERICADATE/TIME [id number] [address]328 PMNormalWVUMedicine [facility] Hospital on above:Order Comment: Specimen Type: VENOUS BLOOD SPECIMENOrdering Facility: [facility] Address: [address]Performed By: #### 07321-6 ####[facility] LABCLIA [id number] [place] [address] [place] AMERICAGlucose [Mass/Vol]140 mg/dLHigh 60-105WV[facility] on above:Order Comment: Specimen Type: VENOUS BLOOD SPECIMENOrdering Facility: [facility] Address: [address] [place], [place] [address]Performed By: #### 51933-9 ####[facility] LABCLIA [id number] [place] [address] [place] AMERICAHCO3 (Bld) [Moles/Vol]19 mmol/L Jhp57-43EdjmgpvtmWVUMedicine Barnesville Hospital on above:Order Comment: Specimen Type: VENOUS BLOOD SPECIMENOrdering Facility: [facility] Address: [address] [place], [place] [address]Performed By: #### 33210-5 ####[facility] LABCLIA [id number] [place] [address] [place] AMERICAHematocrit (Bld) [Volume fraction]23.6 %Low39.0-51.0[facility] on above:Order Comment: Specimen Type: VENOUS BLOOD SPECIMENOrdering Facility: [facility] Address: [address] [place], [place] [address]Performed By: #### 66242-7 ####[facility] LABIA [id number] [place] [address] [place] AMERICAHemoglobin (Bld) [Mass/Vol]7.6 g/dLLow13.0-17.0[facility] on above:Order Comment: Specimen Type: VENOUS BLOOD SPECIMENOrdering Facility: [facility] Address: [address] [place] [address]Performed By: #### 10761-5 ####[facility] LABCLIA [id number] [place] [address] [place] AMERICALactate [Moles/Vol]1.7 mmol/LNormal0.5-2.2CMercer County Community Hospital on above:Order Comment: Specimen Type: VENOUS BLOOD SPECIMENOrdering Facility: [facility] Address: [address] [id number] By: #### 79346-8 ####[facility] LABCLIA [id number] [place] [address] [place] [facility] CENTERMethemoglobin (Bld) [Mass fraction]1.2 %Normal0.0-1.5CMercer County Community Hospital on above: Order Comment: Specimen Type: VENOUS BLOOD SPECIMENOrdering Facility: [facility] Address: [address]Performed By: #### 75005-6 ####[facility] LABCLIA [id number] [place] [address] [place] [facility] HOSPITALOTIFIED WHOMM.MELQUIADES CHERY ABDULGHCHADormalWVUMedicine Barnes[facility] Hospital on above:Order Comment: Specimen Type: VENOUS BLOOD SPECIMENOrdering Facility: [facility] Address: [address] [place], [place] [address]Performed By: #### 33251-0 ####[facility] LABCLIA [id number] [place] [address] [place] AMERICAO2 THERAPYNC = Nasal CannulaNormalCMercer County Community Hospital on above:Order Comment: Specimen Type: VENOUS BLOOD SPECIMENOrdering Facility: [facility] Ad dress: [address] [place] [id number] By: #### [id number] ####[facility] LABCLIA [id number] [place] [id number] [place] AMERICAOxygen (BldV) [Partial pressure] 58 mm[Hg][id number] [facility] Hospital on above:Order Comment: Specimen Type: VENOUS BLOOD SPECIMENOrdering Facility: [facility] Address: [address] [place] [address]Performed By: #### [id number] ####[facility] LABCLIA [id number] [place] [address] [place] AMERICAOxygen adjusted to patient's actual temperature (BldV) [Partial pressure]58 fsJpCazy40-82ImxiqofmnSumma Health Akron Campusment on above:Order Comment: Specimen Type: VENOUS BLOOD SPECIMENOrdering Facility: [facility] Address: [address] [place], [place] [address]Performed By: #### 79534-0 ####[facility] LABCLIA [id number] [address] STATES OF [facility]UM MEDICAL CENTEROxygen saturation in Venous blood87 %Kmbp89-27JiihgepulWVUMedicine Barnesville Hospital on above:Order Comment: Specimen Type: VENOUS BLOOD SPECIMENOrdering Facility: [facility] Address: [address] [place], [place] [address]Performed By: #### 15612-8 ####[facility] LABCLIA [id number] [address] STATES OF [facility] ATR[facility] MEDICAL CENTEROxyhemoglobin (BldV) [Mass fraction]85 %Azjqui45-83LqtazbkflWVUMedicine Barnesville Hospital on above:Order Comment: Specimen Type: VENOUS BLOOD SPECIMENOrdering Facility: [facility] Address: [address] [place], [place] [address]Performed By: #### 59017-7 ####[facility] LABCLIA [id number] [place] [address] [place] AMERICApH (BldV)7.40 [pH]Normal7.32-7.42[facility] Comment on above:Order Comment: Specimen Type: VENOUS BLOOD SPECIMENOrdering Facility: [facility] Address: [address] [place] [phone] By: #### 57605-7 ####[facility] LABCLIA [id number] [place] [address] [place] pH adjusted to patient's actual temperature (BldV)7.86Zqzifb0.32-7.42[facility] on above:Order Comment: Specimen Type: VENOUS BLOOD SPECIMENOrdering Facility: [facility] Address: [address] [place], [place] [address]Performed By: #### 56658-2 ####[facility] LABCLIA [id number] [place] [address] [place] AMERICAPotassium [Moles/Vol]3.9 mmol/LNormal3.5-5.0[facility] HospitalComment on above:Order Comment: Specimen Type: VENOUS BLOOD SPECIMENOrdering Facility: [facility] Address: [address] [place], [place] [address]Performed By: #### 25666-8 ####[facility] LABCLIA [id number] [place] [address] [place] AMERICASodium [Moles/Vol]131 mmol/JUfd268-747HoxrwytbvWVUMedicine Barnesville Hospital on above:Order Comment: Specimen Type: VENOUS BLOOD SPECIMENOrdering Facility: [facility] Address: [address] [place], [place] [address]Performed By: #### 39371-7 ####[facility] LABCLIA [id number] [place] [address] [place] OF AMERICABASE DEFICIT, VENOUS-7 mmol/CKax-7-3BpmywyrszOhio State East Hospital Comment on above:Order Comment: Specimen Type: VENOUS BLOOD SPECIMENOrdering Facility: [facility] Address: [address] [place] [address]Performed By: #### 51377-0 ####[facility] LABCLIA [id number] [place] [address] [place] Body nvutnwrbhvk37.7 [degF]NormalWVUMedicine Barnesville Hospital on above: Order Comment: Specimen Type: VENOUS BLOOD SPECIMENOrdering Facility: [facility] Address: [address] [place], [place] [address]Performed By: #### 41947-1 ####[facility] LABCLIA [id number] [address] OF AMERICACalcium.ionized (Bld) [Mass/Vol]1.04 mmol/LLow1.08-1.30[facility] on above: Order Comment: Specimen Type: VENOUS BLOOD SPECIMENOrdering Facility: [facility] Address: [address] [place], [place] [address]Performed By: #### 17477-6 ####[facility] LABIA [id number] [place] [address] [facility] OF AMERICACalcium.ionized adjusted to pH 7.4 (BldA) [Moles/Vol]1.02 mmol/LLow1.08-1.30[facility] on above:Order Comment: Specimen Type: VENOUS BLOOD SPECIMENOrdering Facility: [facility] Address: [address] [place], [place] [address]Performed By: #### 05589-6 ####[facility]ITAL[facility] [id number] [address] OF AMERICACarboxyhemoglobin (BldV) [Mass fraction]1.0 %Normal0.0-2.0 [facility] on above:Order Comment: Specimen Type: VENOUS BLOOD SPECIMENOrdering Facility: [facility] Address: [address] [place], [place] [address]Result Comment: Carboxyhemoglobin Reference Range for Smokers: 2.0-8.0%Performed By: #### 76322-1 ####[facility] LABIA [id number] [place] [address] [place] AMERICACO2 (BldV) [Partial pressure]32 mm[Hg]Kfj68-28CfypzihyiWVUMedicine Barnesville Hospital on above:Order Comment: Specimen Type: VENOUS BLOOD SPECIMENOrdering Facility: [facility] Address: [address] [place], [place] [address]Performed By: #### 31564-9 ####[facility] LABIA [id number] [id number] [address] [place] AMERICACO2 [Moles/Vol]19 mmol/PEvi13-36XmzlsqlvvOhio State [facility] Hospital Comment on above:Order Comment: Specimen Type: VENOUS BLOOD SPECIMENOrdering Facility: [facility] Address: [address] [place], [place] [address]Performed By: #### 36888-0 ####[facility] LABCLIA [id number] [place] [address] [place] CO2 adjusted to patient's actual temperature (BldV) [Partial pressure]32 mmHgLow 42-55[facility] HospitalComascension [facility] on above:Order Comment: Specimen Type: VENOUS BLOOD SPECIMENOrdering Facility: [facility] Address: [address] [place], [place] [address]Performed By: #### 67372-2 ####[facility] LABCLIA [id number] [place] [address] [place] AMERICAGlucose [Mass/Vol]119 mg/dLHigh 60-105[facility] Campusment on above:Order Comment: Specimen Type: VENOUS BLOOD SPECIMENOrdering Facility: [facility] Address: [address] [place], [place] [address]Performed By: #### 82649-6 ####[facility] LABCLIA [id number] [place] [address] [place] AMERICAHCO3 (Bld) [Moles/Vol]18 mmol/L Fuk91-34EmyogqaorWVUMedicine Barnesville Hospital on above:Order Comment: Specimen Type: VENOUS BLOOD SPECIMENOrdering Facility: [facility] Address: [address] [place], [place] [address]Performed By: #### 51645-6 ####[facility] LABCLIA [id number] [place] [address] [place] AMERICAHematocrit (Bld) [Volume fraction]23.6 %Low39.0-51.0[facility] on above:Order Comment: Specimen Type: VENOUS BLOOD SPECIMENOrdering Facility: [facility] Address: [address]Performed By: #### 09076-2 ####[facility] LABCLIA [id number] [place] [address] [place] AMERICAHemoglobin (Bld) [Mass/Vol]7.6 g/dLLow13.0-17.0[facility] on above:Order Comment: Specimen Type: VENOUS BLOOD SPECIMENOrdering Facility: [facility] Address: [address] [place], [place] [address]Performed By: #### 41927-7 ####[facility] LABIA [id number] [place] [address] [place] AMERICALactate [Moles/Vol]5.4 mmol/LHigh0.5-2.2CMercer County Community Hospital on above:Order Comment: Specimen Type: VENOUS BLOOD SPECIMENOrdering Facility: [facility] Address: [address] [place], [place] [address]Performed By: #### 27122-8 ####[facility] LABIA [id number] [place] [address] [place] OF AMERICALITERS2 Liters/min NormalWVUMedicine Barnesville Hospital on above:Order Comment: Specimen Type: VENOUS BLOOD SPECIMENOrdering Facility: [facility] Address: [address] [place] [phone] By: #### 84816-6 ####[facility] LABIA [id number] [place] [address] [place] AMERICAMethemoglobin (Bld) [Mass fraction]1.2 %Normal0.0-1.5CMercer County Community Hospital on above:Order Comment: Specimen Type: VENOUS BLOOD SPECIMENOrdering Facility: [facility] Address: [address] [place], [place] [address]Performed By: #### 75867-1 ####[facility] LABCLIA [id number] [place] [address] [place] AMERICAO2 THERAPYNC = Nasal CannulaNormalCMercer County Community Hospital on above:Order Comment: Specimen Type: VENOUS BLOOD SPECIMENOrdering Facility: [facility] Ad dress: [address] [place] [address]Performed By: #### 73506-9 ####[facility] LABCLIA [id number] [place] [address] [place] AMERICAOxygen (BldV) [Partial pressure] 31 mm[Hg]Moj16-29RcpwuvsspWVUMedicine [facility] Hospital on above:Order Comment: Specimen Type: VENOUS BLOOD SPECIMENOrdering Facility: [facility] Address: [address] [place], [place] [address]Performed By: #### 80958-0 ####[facility] LABCLIA [id number] [place] [address] [place] AMERICAOxygen adjusted to patient's actual temperature (BldV) [Partial pressure]30 loJwYee81-04KimrtifqkWVUMedicine [facility] Hospital on above:Order Comment: Specimen Type: VENOUS BLOOD SPECIMENOrdering Facility: [facility] Address: [address] [place] [address]Performed By: #### 69521-4 ####[facility] LABCLIA [id number] [address] STATES OF AMERICAOxygen saturation in Venous blood44 %Slj05-65FhzwshbqeWVUMedicine Barnes[facility] Hospital on above:Order Comment: Specimen Type: VENOUS BLOOD SPECIMENOrdering Facility: [facility] Address: [address] [place] [address]Performed By: #### 40692-9 ####[facility] LABCLIA [id number] [place] [address] [place] AMERICAOxyhemoglobin (BldV) [Mass fraction]43 %Van99-90PzuodbkwhWVUMedicine [facility]ville Hospital on above:Order Comment: Specimen Type: VENOUS BLOOD SPECIMENOrdering Facility: [facility] Address: [address] [place], [place] [address]Performed By: #### 06397-8 ####[facility] LABIA [id number] [place] [address] [place] AMERICApH (BldV)7.36 [pH]Normal7.32-7.42[facility] Comment on above:Order Comment: Specimen Type: VENOUS BLOOD SPECIMENOrdering Facility: [facility] Address: [address] [place], [place] [address]Performed By: #### 30882-1 ####[facility] LABIA [id number] [place] [address] [place] pH adjusted to patient's actual temperature (BldV)7.45Ekrfmr1.32-7.42[facility] HospitalComment on above:Order Comment: Specimen Type: VENOUS BLOOD SPECIMENOrdering Facility: [facility] Address: [address] [place], [place] [address]Performed By: #### 76841-9 ####[facility] LABIA [id number] [place] [address] [place] AMERICAPotassium [Moles/Vol]3.9 mmol/LNormal3.5-5.0[facility] HospitalComment on above:Order Comment: Specimen Type: VENOUS BLOOD SPECIMENOrdering Facility: [facility] Address: [address] [place] [address]Performed By: #### 60238-4 ####[facility] LABIA [id number] [place] [address] [place] AMERICASodium [Moles/Vol]129 mmol/TCge090-450BduwfxnrvOhio State East HospitalComascension st. [facility] on above:Order Comment: Specimen Type: VENOUS BLOOD SPECIMENOrdering Facility: [facility] Address: [address] [place], [place] [address]Performed By: #### 48159-5 ####[facility] LABCLIA [id number] [place] [address] [place] AMERICABASE DEFICIT, VENOUS-7 mmol/BLwm-5-1KouifqkevOhio State East Hospital Comment on above:Order Comment: Specimen Type: VENOUS BLOOD SPECIMENOrdering Facility: [facility] Address: [address] [place], [place] [address]Performed By: #### 34358-2 ####[facility] LABIA [id number] [place] [address] [place] Body .24 [degF]NormalWVUMedicine Barnesville Hospital on above: Order Comment: Specimen Type: VENOUS BLOOD SPECIMENOrdering Facility: [facility] Address: [address] [place], [place] [address]Performed By: #### 44198-5 ####[facility] LABIA [id number] [address] STATES OF AMERICACalcium.ionized (Bld) [Mass/Vol]1.05 mmol/LLow1.08-1.30[facility] on above: Order Comment: Specimen Type: VENOUS BLOOD SPECIMENOrdering Facility: [facility] Address: [address] [place] [address]Performed By: #### 51206-5 ####[facility] LABIA [id number] [address] STATES OF AMERICACalcium.ionized adjusted to pH 7.4 (BldA) [Moles/Vol]1.03 mmol/LLow1.08-1.30[facility] on above:Order Comment: Specimen Type: VENOUS BLOOD SPECIMENOrdering Facility: [facility] Address: [address] [place] [address]Performed By: #### 62729-2 ####[facility] LABIA [id number] [place] [address] [place] AMERICACarboxyhemoglobin (BldV) [Mass fraction]1.3 %Normal0.0-2.0 [facility] on above:Order Comment: Specimen Type: VENOUS BLOOD SPECIMENOrdering Facility: [facility] Address: [address] [place], [place] [address]Result Comment: Carboxyhemoglobin Reference Range for Smokers: 2.0-8.0%Performed By: #### 53032-1 ####[facility] LABCLIA [id number] [place] [address] [place] AMERICACO2 (BldV) [Partial pressure]32 mm[Hg]Rtm52-34RdilahhfhWVUMedicine Barnesville Hospital on above:Order Comment: Specimen Type: VENOUS BLOOD SPECIMENOrdering Facility: [facility] Address: [address] [place], [place] [address]Performed By: #### 20477-4 ####[facility] LABCLIA [id number] [place] [address] [place] AMERICACO2 [Moles/Vol]18 mmol/JOoj13-39HwkxxqbooOhio State East Hospital Comment on above:Order Comment: Specimen Type: VENOUS BLOOD SPECIMENOrdering Facility: [facility] Address: [address] [place], [place] [address]Performed By: #### 45343-1 ####[facility] LABIA [id number] [place] [address] [place] CO2 adjusted to patient's actual temperature (BldV) [Partial pressure]32 mmHgLow 42-55[facility] on above:Order Comment: Specimen Type: VENOUS BLOOD SPECIMENOrdering Facility: [facility] Address: [address] [place], [place] [address]Performed By: #### 60672-5 ####[facility] LABIA [id number] [place] [address] [place] AMERICAGlucose [Mass/Vol]180 mg/dLHigh 60-105[facility] on above:Order Comment: Specimen Type: VENOUS BLOOD SPECIMENOrdering Facility: [facility] Address: [address] [place], [place] [address]Performed By: #### 46434-2 ####[facility] LABCLIA [id number] [place] [address] [place] AMERICAHCO3 (Bld) [Moles/Vol]17 mmol/L Kwk20-76QzkbtjunlWVUMedicine [facility]ville Hospital on above:Order Comment: Specimen Type: VENOUS BLOOD SPECIMENOrdering Facility: [facility] Address: [address] [place] [address]Performed By: #### 85062-9 ####[facility] LABIA [id number] [place] [address] [place] AMERICAHematocrit (Bld) [Volume fraction]26.1 %Low39.0-51.0[facility] on above:Order Comment: Specimen Type: VENOUS BLOOD SPECIMENOrdering Facility: [facility] Address: [address] [place], [place] [address]Performed By: #### 96803-9 ####[facility] LABIA [id number] [place] [address] [place] AMERICAHemoglobin (Bld) [Mass/Vol]8.4 g/dLLow13.0-17.0[facility] on above:Order Comment: Specimen Type: VENOUS BLOOD SPECIMENOrdering Facility: [facility] Address: [address] [place] [phone] By: #### 24317-9 ####[facility] LABIA [id number] [place] [address] [place] AMERICALactate [Moles/Vol]4.0 mmol/LHigh0.5-2.2CMercer County Community Hospital on above:Order Comment: Specimen Type: VENOUS BLOOD SPECIMENOrdering Facility: [facility] Address: [address] [place], [place] [address]Performed By: #### 36484-7 ####[facility] LABIA [id number] [address] STATES OF [facility]TRI[facility] MEDICAL CENTERLITERS2 Liters/min NormalWVUMedicine Barnesville Hospital on above:Order Comment: Specimen Type: VENOUS BLOOD SPECIMENOrdering Facility: [facility] Address: [place]Performed By: #### 25158-8 ####[facility] LABCLIA [id number] [address] STATES OF AMERICAMethemoglobin (Bld) [Mass fraction]1.1 %Normal0.0-1.5CMercer County Community Hospital on above:Order Comment: Specimen Type: VENOUS BLOOD SPECIMENOrdering Facility: [facility] Address: [address] [place], [place] [address]Performed By: #### 57461-2 ####[facility] LABCLIA [id number] [address] THERAPYNC = Nasal CannulaNormalCMercer County Community Hospital on above:Order Comment: Specimen Type: VENOUS BLOOD SPECIMENOrdering Facility: [facility] Ad dress: [address] [place] [address]Performed By: #### 59384-4 ####[facility] LABCLIA [id number] [place] [address] [place] AMERICAOxygen (BldV) [Partial pressure] 41 mm[Hg]Dxvcxs65-30ByleujnipWVUMedicine [facility] Hospital on above:Order Comment: Specimen Type: VENOUS BLOOD SPECIMENOrdering Facility: [facility] Address: [address] [place] [address]Performed By: #### 47894-3 ####[facility] LABCLIA [id number] [address] STATES OF AMERICAOxygen adjusted to patient's actual temperature (BldV) [Partial pressure]40 spNvNglebz16-21 [facility] on above:Order Comment: Specimen Type: VENOUS BLOOD SPECIMENOrdering Facility: [facility] Address: [address] [place] [phone] By: #### 59613-4 ####[facility] LABCLIA [id number] [place] [address] [place] AMERICAOxygen saturation in Venous blood63 %Crocui29-67 [facility] on above:Order Comment: Specimen Type: VENOUS BLOOD SPECIMENOrdering Facility: [facility] Address: [address] [place] [phone] By: #### 41807-3 ####[facility] LABCLIA [id number] [place] [address] [place] AMERICAOxyhemoglobin (BldV) [Mass fraction]62 %Normal 60-85[facility] on above:Order Comment: Specimen Type: VENOUS BLOOD SPECIMENOrdering Facility: [facility] Address: [address] [place] [phone] By: #### 01437-0 ####[facility] LABCLIA [id number] [place] [address] [place] AMERICApH (BldV)7.36 [pH]Normal7.32-7.42 [facility] on above:Order Comment: Specimen Type: VENOUS BLOOD SPECIMENOrdering Facility: [facility] Address: [address] [place] [phone] By: #### 99380-6 ####[facility] LABCLIA [id number] [place] [address] [place] AMERICApH adjusted to patient's actual temperature (BldV) 7.37Pksudi9.32-7.42[facility] on above:Order Comment: Specimen Type: VENOUS BLOOD SPECIMENOrdering Facility: [facility] Address: [address] [place] [phone] By: #### 71924-2 ####[facility] LABCLIA [id number] [address] [id number], [place] [address] [place] AMERICAPotassium [Moles/Vol] 4.0 mmol/LNormal3.5-5.0[facility] on above:Order Comment: Specimen Type: VENOUS BLOOD SPECIMENOrdering Facility: [facility] Address: [address]Performed By: #### 76684-5 ####[facility] LABCLIA [id number] [place] [address] [place] AMERICASodium [Moles/Vol]129 mmol/LOuz086-069LmlnohbbyWVUMedicine [facility] on above:Order Comment: Specimen Type: VENOUS BLOOD SPECIMENOrdering Facility: [facility] Address: [address] [place], [place] [address]Performed By: #### 10367-8 ####[facility] LABCLIA [id number] [place] [address] [place] AMERICABASE DEFICIT, VENOUS-5 mmol/KJnx-7-6DmwtuvokrWVUMedicine Barnesville Hospital on above:Order Comment: Specimen Type: VENOUS BLOOD SPECIMENOrdering Facility: [facility] Ad dress: [address] [place] [address]Performed By: #### 53358-0 ####[facility] LABIA [id number] [place] [address] [place] AMERICABody uulxeqmgffx38.88 [degF] NormalWVUMedicine Barnesville Hospital on above:Order Comment: Specimen Type: VENOUS BLOOD SPECIMENOrdering Facility: [facility] Address: [address] [place] [address]Performed By: #### 99848-6 ####[facility] LABCLIA [id number] [place] [address] [place] AMERICACalcium.ionized (Bld) [Mass/Vol] 1.08 mmol/LNormal1.08-1.30[facility] on above:Order Comment: Specimen Type: VENOUS BLOOD SPECIMENOrdering Facility: [facility] Address: [place] [address]Performed By: #### 37036-2 ####[facility] LABIA [id number] [place] [address] [place] AMERICACalcium.ionized adjusted to pH 7.4 (BldA) [Moles/Vol]1.05 mmol/LLow1.08-1.30[facility] HospitalComment on above:Order Comment: Specimen Type: VENOUS BLOOD SPECIMENOrdering Facility: [facility] Address: [address] [place], [place] [address]Performed By: #### 83949-2 ####[facility] LABVERM[facility] [id number] [place] [address] [place] AMERICACarboxyhemoglobin (BldV) [Mass fraction]0.7 %Normal0.0-2.0 [facility] HospitalComment on above:Order Comment: Specimen Type: VENOUS BLOOD SPECIMENOrdering Facility: [facility] Address: [address] [place], [place] [address]Result Comment: Carboxyhemoglobin Reference Range for Smokers: 2.0-8.0%Performed By: #### 01820-8 ####[facility] LABIA [id number] [place] [address] [place] AMERICACO2 (BldV) [Partial pressure]35 mm[Hg]Byq82-41GlotvpndjOhio State East HospitalComment on above:Order Comment: Specimen Type: VENOUS BLOOD SPECIMENOrdering Facility: [facility] Address: [address] [place] [address]Performed By: #### 48312-4 ####[facility] LABVERM[facility] [id number] [place] [address] [place] AMERICACO2 [Moles/Vol]20 mmol/LFhe88-67RyxkvegsyOhio State East Hospital Comment on above:Order Comment: Specimen Type: VENOUS BLOOD SPECIMENOrdering Facility: [facility] Address: [address] [place] [address]Performed By: #### 80074-4 ####[facility] LABCLIA [id number] [place] [address] [place] CO2 adjusted to patient's actual temperature (BldV) [Partial pressure]34 mmHgLow 42-55[facility] on above:Order Comment: Specimen Type: VENOUS BLOOD SPECIMENOrdering Facility: [facility] Address: [address] [place] [address]Performed By: #### 69817-5 ####[facility] LABCLIA [id number] [place] [address] [place] AMERICAGlucose [Mass/Vol]105 mg/dLNormal 60-105[facility] on above:Order Comment: Specimen Type: VENOUS BLOOD SPECIMENOrdering Facility: [facility] Address: [address] [place], [place] [id number] By: #### [id number] ####[facility] LABIA [id number] [place] [address] [place] AMERICAHCO3 (Bld) [Moles/Vol]19 mmol/L Ddc37-84ZdzfrnojpWVUMedicine [facility] on above:Order Comment: Specimen Type: VENOUS BLOOD SPECIMENOrdering Facility: [facility] Address: [address] [place] [address]Performed By: #### [id number] ####[facility] LABIA [id number] [place] [address] [place] AMERICAHematocrit (Bld) [Volume fraction]41.5 %Zqvroe22.0-51.0[facility] on above:Order Comment: Specimen Type: VENOUS BLOOD SPECIMENOrdering Facility: [facility] Address: [address] [place] [address]Performed By: #### [id number] ####[facility] LABIA [id number] [place] [address] [place] AMER[place]AHemoglobin (Bld) [Mass/Vol]13.5 g/qYRavclg63.0-17.0[facility] on above: Order Comment: Specimen Type: VENOUS BLOOD SPECIMENOrdering Facility: [facility] Address: [address] [place], [place] [id number] By: #### 13601-3 ####[facility] LABCLIA [id number] [place] [address] [place] AMERICALactate [Moles/Vol]2.7 mmol/LHigh0.5-2.2CMercer County [facility]:Order Comment: Specimen Type: VENOUS BLOOD SPECIMENOrdering Facility: [facility] Address: [address] [place], [place] [address]Performed By: #### 82360-6 ####[facility] LABCLIA [id number] [place] [address] [place] AMERICAMethemoglobin (Bld) [Mass fraction]1.0 %Normal0.0-1.5CMercer County [facility] on above: Order Comment: Specimen Type: VENOUS BLOOD SPECIMENOrdering Facility: [facility] Address: [address] [place], [place] [address]Performed By: #### 71065-7 ####[facility] LABCLIA [id number] [place] [address] [place] AMERICAO2 THERAPYRA=Room Air NormalWVUMedicine Barnesville Hospital on above:Order Comment: Specimen Type: VENOUS BLOOD SPECIMENOrdering Facility: [facility] Address: [address] [place], [place] [address]Performed By: #### 60677-8 ####[facility] LABCLIA [id number] [place] [address] [place] AMERICAOxygen (BldV) [Partial pressure] 32 mm[Hg]Xzm68-99ObkeglxmoWVUMedicine Barnesville Hospital on above:Order Comment: Specimen Type: VENOUS BLOOD SPECIMENOrdering Facility: [facility] Address: [address] [place] [address]Fzqjlgvyq By: #### 26889-5 ####[facility] LABCLIA [id number] [place] [address] [place] AMERICAOxygen adjusted to patient's actual temperature (BldV) [Partial pressure]31 hgMnEuu28-22PlamvwkrhOhio State East HospitalComment on above:Order Comment: Specimen Type: VENOUS BLOOD SPECIMENOrdering Facility: [facility] Address: [address] [place] [address]Performed By: #### 41855-7 ####[facility] LABCLIA [id number] [address] STATES OF PRE[facility] ATRIUM MEDICAL CENTEROxygen saturation in Venous blood50 %Zwa54-62NlzjyclipOhio State East HospitalComment on above:Order Comment: Specimen Type: VENOUS BLOOD SPECIMENOrdering Facility: [facility] Address: [address] [place] [address]Performed By: #### 36604-2 ####[facility] LABCLIA [id number] [place] [address] [place] PRE[facility] MEDICAL CENTEROxyhemoglobin (BldV) [Mass fraction]49 %Rqf68-95MbdykkqqvOhio State East HospitalComascension st. [facility]ohn [facility] on above:Order Comment: Specimen Type: VENOUS BLOOD SPECIMENOrdering Facility: [facility] Address: [address] [place] [phone] By: #### 17570-5 ####[facility] LABCLIA [id number] [place] [address] [place] [facility] MEDICAL CENTERpH (BldV)7.35 [pH]Normal7.32-7.42[facility] Comment on above:Order Comment: Specimen Type: VENOUS BLOOD SPECIMENOrdering Facility: [facility] Address: [address] [place] [address]Performed By: #### 07948-2 ####[facility] LABCLIA [id number] [place] [address] [place] pH adjusted to patient's actual temperature (BldV)7.05Allyjj2.32-7.42[facility] on above:Order Comment: Specimen Type: VENOUS BLOOD SPECIMENOrdering Facility: [facility] Address: [address] [place], [place] [address]Performed By: #### 27133-2 ####[facility] LABCLIA [id number] [place] [address] [place] AMERICAPotassium [Moles/Vol]4.7 mmol/LNormal3.5-5.0[facility] on above:Order Comment: Specimen Type: VENOUS BLOOD SPECIMENOrdering Facility: [facility] Address: [address] [place], [place] [address]Performed By: #### 57501-6 ####[facility] LABCLIA [id number] [place] [address] [place] AMERICASodium [Moles/Vol]129 mmol/RIbw514-715XpyszvelwWVUMedicine Barnesville Hospital on above:Order Comment: Specimen Type: VENOUS BLOOD SPECIMENOrdering Facility: [facility] Address: [address] [place], [place] [address]Performed By: #### 16871-6 ####[facility] LABCLIA [id number] [place] [address] [place] AMERICAHIGH SENSITIVITY TROPONIN Ton 68-09-3167WENN SENSITIVITY TNT14 ng/LHigh<12[facility] on above:Order Comment: Specimen Type: BLOOD SPECIMENOrdering Facility: [facility] Address:[address] [place], [place] [address]Result Comment: When assessing risk for acute coronary syndromes: In patients undergoing blood drawgreater than or equal to 2 hours from symptom onset, with history of very low to moderate risk and n on-ischemic ECG, an initial hs-Troponin T less than 12 ng/L AND a 1 hour delta hs-Troponin T less than 3 ng/L should be considered very low risk for 30 day MACE.Performed By: #### 1988-5, 73024-0, 2777-1, HSTNT, 65142-3 ####[facility] [id number] [place] [id number] [place] AMERICAHISTORY PHYSICALon 48-90-5624GZJVOEW PHYSICAL NormalOhio State East HospitalHbA1c (Bld)on 29-81-1241Rjrbvio glucose Estimated from glycated hemoglobin (Bld) [Mass/Vol]140 mg/dLNormalCOhioHealth Southeastern Medical CenterComascension st. [facility] on above:Order Comment: Specimen Type: BLOOD SPECIMENOrdering Facility: [facility] Address:[address] [place], [place] [address]Result Comment: eAG: (Estimated average glucose) is a calculated value from HgbA1c and is ambulatory services representative of the average blood glucose level in the last 2-3 month period.Performed By: #### 4537-7, 01381-7 ####[facility] LABIA [id number] [place] [id number] [facility]ITALHbA1c (Bld) [Mass fraction]6.5 % High4.3-5.6CMercer County [facility] on above:Order Comment: Specimen Type: BLOOD SPECIMENOrdering Facility: [facility] Address:[address] [place], [place] [address]Result Comment: [place] [employer] guidelines indicate that patients with HgbA1c in the range 5.7-6.4% are at increased risk for development of diabetes, and intervention by lifestyle modification may be beneficial. HgbA1c greater or equal to 6.5% is considered diagnostic of diabetes.Performed By: #### 4537-7, 01268-5 ####[facility] LABCLIA [id number] [place] [id number] [place] AMERICALACTATE/LACTIC ACIDon 04-63-7112Jxrsktl [Moles/Vol]1.8 mmol/LNormal0.4-2.0[facility] on above:Performed By: #### BCID2 #### [facility] [address] [place] [address] Dr. Good CastellanoMagnesium SerPl-mCncon 45-44-4856Pkcrvtbxi [Mass/Vol]2.4 mg/dL High1.7-2.3CMercer County Community Hospital on above:Order Comment: Specimen Type: BLOOD SPECIMENOrdering Facility: [facility] Address:[address] [place], [place] [address]Performed By: #### 58956-2, 2777-1, 19306-3 ####[facility] LABCLIA [id number] [address] [place] AMERICAMagnesium [Mass/Vol]2.5 mg/dLHigh 1.7-2.3CMercer County [facility] on above:Order Comment: Specimen Type: BLOOD SPECIMENOrdering Facility: [facility] Address:[address] [place], [place] [address]Performed By: #### 1987-, 59964-7, 2776-11, HSTNT, ####[facility] [id number] [place] [id number] [place] OF AMERICANT-proBNP SerPl-mCncon 79-07-7082Oeiuovukztd peptide.B prohormone N-Terminal [Mass/Vol]575 pg/mLHigh <125[facility] on above:Order Comment: Specimen Type: BLOOD SPECIMENOrdering Facility: [facility] Address:[address] [place], [place] [address]Performed By: #### 1988-03, 23455-4, 2776-11, HSTNT, ####[facility] [id number] [place] [id number] [place] AMERICAOPERATIVE NOon 70-44-7404AZBUWUCHD NONormalOhio State East HospitalPT panel Coag (PPP)on 37-75-9116RZG Coag (PPP) [Relative time]1.1 {INR}Normal0.9-1.3CMercer County Community [facility] on above:Order Comment: Specimen Type: BLOOD SPECIMENOrdering Facility: [facility] Address:[place] [address]Zftvuq Comment: Vitamin K Antagonist (VKA) Therapeutic Range: INR 2 to 3 (Target INR of 2.5)Note: For patients treated with VKA drugs, such as warfarin, the [place] [employer] 2012 Guideline recommends a therapeutic INR range of 2 to 3 (target INR of 2.5). This recommendation inclu lex high-risk patients with antiphospholipid syndrome with previous arterial or venous thromboembolism, current-generation mechanical or bioprosthetic aortic heart valve replacement.Note: Patients with mechanical aortic valve replacement and additional risk factors for thromboembolic events (atrialfibrillation, previous thromboembolism, LV dysfunction, hypercoagulable conditions) or an older generation mechanical AVR (i.e., ball in-Cage) or any mechanical MVR should have a INR therapeutic range of 2.5 to 3.5 (target INR of 3).Rico GH, et al. Chest 2012, 141:7S-47SNishimlucy RA, et al. [facility] 2017, 70: 252-289 Performed By: #### 15322-5, 3255-7 ####[facility] [id number] [place] [address] [place] PT Coag (PPP) [Time]11.0 sNormal9.7-13.0[facility] on above:Order Comment: Specimen Type: BLOOD SPECIMENOrdering Facility: [facility] Address:[place] [facility] [place] [address]Wnqwotjyp By: #### 55862-8, 3255-7 ####[facility] [id number] [place] [id number] [place] AMERICAPhosphate SerPl-mCncon 21-94-0182Pgryusjjz [Mass/Vol]8.1 mg/dLHigh2.7-4.8CMercer County [facility] on above:Order Comment: Specimen Type: BLOOD SPECIMENOrdering Facility: [facility] Address:[place] [facility]Reg [place] [phone] By: #### 82638-3, 2777-1, 42190-8 ####[facility] LABCLIA [id number] [place] [id number] [place] AMERICAPhosphate [Mass/Vol]6.3 mg/dLHigh2.7-4.8COhioHealth Southeastern Medical CenterComment on above:Order Comment: Specimen Type: BLOOD SPECIMENOrdering Facility: [facility] Address:[address] [place], [place] [address]Performed By: #### 1988-5, 44988-7, 2777-1, HSTNT, 48334-0 ####[facility] [id number] [place] [address] [place] AMERICAProcalcitonin SerPl-mCncon 92-87-2287Obvvvfcqoaopy [Mass/Vol]9.07 ng/mLHigh<0.09[facility] Comment on above:Order Comment: Specimen Type: BLOOD SPECIMENOrdering Facility: [facility] Address:[address] [place] [address] Result Comment: For a guided interpretation of test results, please visit the Change in Procalcitonin Calculator, [email or web address].Performed By: #### 39185-0, 24515-8 ####[facility] LABIA [id number] [place] [address] [place] WRTSBPEVHTC-WuN-6 RNA Resp Ql DREA+probeon 86-71-5103BHQK-CoV-2 (COVID-19) RNA DREA+probe Ql (Resp)COVID 19 RESULT: Not detected The method used is RT-PCR or an equivalent NAAT method. Reference Range(the expected result in uninfected individuals): Not detected NormalWVUMedicine Barnesville Hospital on above:Performed By: #### 82926-9 ####[facility] LABCLIA [id number] [place] [id number] [place] OF AMERICASTAPH AUREUS PCRon 01-24-2023S. aureus and MRSA panel DREA+probe (Nose)AbnormalNegativeCleveland Clinic Sainz Comment on above:Order Comment: Specimen Type: SWAB OF INTERNAL NOSEOrdering Facility: [facility] Address: [address] [place], [place] [address]Result Comment: Positive for Staphylococcus aureus by PCR.Negative for MRSA by PCRPerformed By: #### SAPCR ####[facility] LABCLIA [id number] [place] [address] [place] TYPE + SCREENon 13-87-3145WGNKBfagdkRvzopgeytBellevue Hospital on above: Order Comment: Specimen Type: BLOOD SPECIMENOrdering Facility: [facility] Address:[address] [place], [place] [address]Performed By: #### TSCR ####[facility] BLOOD BANKCLIA [id number] [place] [address] [place] AMERICAHISTORICAL AB SCR STATUSNegativeNoMercy Health St. Elizabeth Boardman Hospitalment on above:Order Comment: Specimen Type: BLOOD SPECIMENOrdering Facility: [facility] Address:[address] [place], [place] [address]Performed By: #### TSCR ####[facility] MAIN BLOOD BANKCLIA [id number] [place] [address] [place] AMERICARh Nom (Bld)PositiveNormalCMercer County Community Hospital on above: Order Comment: Specimen Type: BLOOD SPECIMENOrdering Facility: [facility] Address:[address] [place], [place] [address]Performed By: #### TSCR ####[facility] BLOOD BANKCLIA [id number] [place] [address] [place] AMERICATYPE AND SCREEN EBOJFBVOTZ06/16/2023 23:59 NormalWVUMedicine Barnesville Hospital on above:Order Comment: Specimen Type: BLOOD SPECIMENOrdering Facility: [facility] Address:[address] [place], [place] [address]Performed By: #### TSCR ####[facility] MAIN BLOOD BANKCLIA [id number] [place] [address] [place] AMERICAURINE MICROSCOPIC ONLYon 69-23-5373WWJGGGFGZWIFHNegobdxxJCES SEENParkview HealthComascension st. john hospital on above:Performed By: #### HU ERUR #### [facility] [address] [place] [address] [address] Good Sung identified Cx Nom (U)NOT INDICATEDNoCleveland Clinic Akron GeneralComment on above:Performed By: #### HU ERUR #### [facility] [address] [place] [address] [address] Good HernandezENAbnormalNONE SEENParkview HealthComascension st. john hospital on above: Performed By: #### HU ERUR #### [facility] [address] [place] [address] [address] Good Gage LM Nom (Urine sed)NONE SEENNormalNONE SEENThe [facility] HospitalComasc[facility] on above:Performed By: #### HU ERUR #### [facility] [address] [place] [address] [address] Funk ChangEleslythelial cells LM Ql (Urine sed)RARENormalNONE SEEN /RAREThe [facility] HospitalComasc[facility] on above:Performed By: #### HU ERUR #### [facility] [address] [place] [address] [address] Good Dalal GRANULAR CASTFEWNoCleveland Clinic Akron GeneralComment on above: Performed By: #### HU ERUR #### [facility] [address] [place] [address] [address] Good BraunE SEENNormalNONE SEENParkview HealthComascension st. john hospital on above:Performed By: #### HU ERUR #### [facility] [address] [place] [address] Dr. Good Gonzalez SEENAbnormal0-2Parkview HealthComasc[facility] on above: Performed By: #### HU ERUR #### [facility] [address] [place] [address] [address] Good CastellanoWBC0-2AbnormalNONE [facility] CompanyComment on above: Performed By: #### MARGE LUI #### [facility] [address] [place] [address] [address] Good CastellanoUrinalysis complete panel (U)on 20-13-6243Zfulnxvug Ql (U)1+ AbnormalNegativeWVUMedicine Barnesville Hospital on above:Order Comment: Specimen Type: URINE SPECIMENOrdering Facility: [facility] Address:[address] [place], [place] [address]Result Comment: Suggest correlation with clinical findings and serum bilirubin if clinically indicated. Performed By: #### 13455-8 ####[facility] LABCLIA [id number] [place] [address] [place] Clarity (Unsp spec)CloudyAbnormalClearCMercer County Community Hospital on above:Order Comment: Specimen Type: URINE SPECIMENOrdering Facility: [facility] Address:[address] [place], [place] [address]Performed By: #### 16611-6 ####[facility] LABCLIA [id number] [place] [address] [place] AMERICAColor (U)YellowNormal YellowWVUMedicine Barnesville Hospital on above:Order Comment: Specimen Type: URINE SPECIMENOrdering Facility: [facility] Address:[address] [place], [place] [address]Performed By: #### 01122-2 ####[facility] LABCLIA [id number] [place] [address] [place] AMERICAEpithelial cells LM.HPF (Urine sed) [#/Area]FewNormal [facility] on above:Order Comment: Specimen Type: URINE SPECIMENOrdering Facility: [facility] Address:[address] [place], [place] [address]Performed By: #### 05927-9 ####[facility] LABCLIA [id number] [place] [address] [place] AMERICAGlucose Test strip (U) [Mass/Vol]NegativeNormalTrace, Negative [facility] HospitalComasc[facility] on above:Order Comment: Specimen Type: URINE SPECIMENOrdering Facility: [facility] Address:[address] [place], [place] [address]Performed By: #### 06371-7 ####[facility] LABCLIA [id number] [place] [address] [place] AMERICAHemoglobin Ql (U)2+AbnormalNegative, TraceOhio State East HospitalComment on above:Order Comment: Specimen Type: URINE SPECIMENOrdering Facility: [facility] Address:[address] [place], [place] [address]Performed By: #### 73652-8 ####[facility] LABCLIA [id number] [place] [address] [place] Ketones Ql (U)NegativeNormalTrace, NegativeWVUMedicine Barnesville Hospital on above:Order Comment: Specimen Type: URINE SPECIMENOrdering Facility: [facility] Address:[address] [place], [place] [address]Performed By: #### 54992-4 ####[facility] LABCLIA [id number] [place] [address] [place] AMERICALeukocyte esterase Test strip Ql (U)NegativeNormalNegative, 25 Kiah/uLCleAdena Fayette Medical Center Comment on above:Order Comment: Specimen Type: URINE SPECIMENOrdering Facility: [facility] Address:[address] [place] [address] Performed By: #### 72613-7 ####[facility] LABCLIA [id number] [place] [address] [place] Nitrite Ql (U)NegativeNormalNegativeOhio State East HospitalComascension st. [facility] on above: Order Comment: Specimen Type: URINE SPECIMENOrdering Facility: [facility] Address:[address] [place], [place] [address]Performed By: #### 07389-7 ####[facility] LABIA [id number] [address]ETpH (U)6.0 [pH]Normal 5.0-8.0[facility] on above:Order Comment: Specimen Type: URINE SPECIMENOrdering Facility: [facility] Address:[address] [place] [address]Performed By: #### 25556-4 ####[facility] [id number] [place] [address] [place] [facility] MEDICAL CENTERProtein (U) [Mass/Vol]1+AbnormalTrace, NegativeWVUMedicine Barnesville Hospital on above:Order Comment: Specimen Type: URINE SPECIMENOrdering Facility: [facility] Address:[address] [place], [place] [address]Performed By: #### 10307-3 ####[facility] [id number] [place] [address] [place] [facility] CORNELL MEDICAL CENTERRBC LM.HPF (Urine sed) [#/Area]3-5 /HPFAbnormal0-3 /HPF [facility] on above:Order Comment: Specimen Type: URINE SPECIMENOrdering Facility: [facility] Address:[address] [place] [address]Elesajcim By: #### 41049-7 ####[facility] [id number] [place] [address] [place] AMERICASpecific gravity (U) [Rel density]1.062Mggf1.005-1.030[facility] on above:Order Comment: Specimen Type: URINE SPECIMENOrdering Facility: [facility] Address:[address] [place] [address]Performed By: #### 05767-2 ####[facility] LABVERMONT [facility] [id number] [address]CL[address] AVENUEDESK B21DWBSAJHRT, [place] [address] [place] AMERICAUrobilinogen Ql (U)2+AbnormalNegativeOhio State East Hospital Comment on above:Order Comment: Specimen Type: URINE SPECIMENOrdering Facility: [facility] Address:[address] [place] [address] Performed By: #### 50514-7 ####[facility] LABCLIA [id number] [place] [address] [place] WBC LM.HPF (Urine sed) [#/Area]0-5 /HPFNormal0-5 /HPFOhio State East Hospital Comment on above:Order Comment: Specimen Type: URINE SPECIMENOrdering Facility: [facility] Address:[address] [place] [address] Performed By: #### 25529-9 ####[facility] LABCLIA [id number] [place] [address] [place] XR CHEST 1V FRONTAL PORTon 62-32-2021OC CHEST 1V FRONTAL PORTNormalCOhioHealth Southeastern Medical CenterXR FEMUR 2V AP/LAT LTon 59-12-0497EP FEMUR 2V AP/LAT LTNormal [facility] HospitalXR HIP 3V PELV+ AP/LAT LTon 87-98-7953JZ HIP 3V PELV+ AP/LAT LTNormalCOhioHealth Southeastern Medical CenterBLOOD CULTURE ID PANELon 01-23-2023. baumanniiNot detectedNormalNOT DETECTEDThe [facility] HospitalComasc[facility] on above: Performed By: #### BCID2 #### [facility] [address] [place] [address] Dr. Good armijoNot detectedNormalNOT DETECTEDThe [facility] HospitalComasc[facility] on above:Performed By: #### BCID2 #### [facility] [address] [place] [address] Dr. Good Luong CONTROLSPASSEDNormalThBlanchard Valley Health SystemComment on above: Performed By: #### BCID2 #### [facility] [address] [place] [address] Dr. Good LuongBTHDBLOOD CULTURE BOTTLE INFORMATIONNormalThe Muncie HospitalComment on above:Performed By: #### BCID2 #### [facility] [address] [place] [address] Dr. Good LuongOyrhoLLMKMX2NVGKSKTEMAXOW RESISTANCE GENESMercy Health [facility] Mills Hospital Comment on above:Performed By: #### BCID2 #### [facility] [address] [place] [address] Dr. Good LuongHD2SEE BELOWMercy Health Kings Mills HospitalComment on above: Result Comment: Note: Antimicrobial resitance can occur via multiple mechanisms. A Not Detected result for the FilmArray antomicrobial resistance gene assays does not indicate antimicrobial susceptibility. Subculturing is required for species identification and susceptibility testing of isolates.Performed By: #### BCID2 #### [facility] [address] [place] [address] Dr. Good LuongRolzfRFVEDX4VvtylueeVgngyiNrp Bellevue HospitalComment on above: Performed By: #### BCID2 #### [facility] [address] [place] [address] Dr. Good LuongFhuqxTUIDSU7AsbqsswqXvuwffGrf Bellevue HospitalComment on above: Performed By: #### BCID2 #### [facility] [address] [place] [address] Dr. Good LuongEsufxOELLRK6NWXAGUteihaMbeMercy Health Kings Mills HospitalComascension st[facility] on above:Performed By: #### BCID2 #### [facility] [address] [place] [address] Dr. Good Wiseman Set:Set 1NormalParkview HealthComascension st. john hospital on above: Performed By: #### BCID2 #### [facility] [address] [place] [address] Dr. Good Wiseman:AerobicMercy Health Kings Mills HospitalComascension st. [facility] hospital on above: Performed By: #### BCID2 #### [facility] [address] [place] [address] Dr. Good Bazna. neoformans/gattiiNot detectedNormalNOT DETECTEDParkview HealthComascension st. john hospital on above:Performed By: #### BCID2 #### [facility] [address] [place] [address] [address] Good [place] albicansNot detectedNormalNOT DETECTEDThe [facility] HospitalComment on above:Performed By: #### BCID2 #### [facility] [address] [place] [address] [address] Good [place] aurisNot detectedNormalNOT DETECTEDThe [facility] Comment on above:Performed By: #### BCID2 #### [facility] [address] [place] [address] [address] Good [place] glabrataNot detectedNormalNOT DETECTEDThe [facility] HospitalComment on above:Performed By: #### BCID2 #### [facility] [address] [place] [address] [address] Good [place] KruseiNot detectedNormalNOT DETECTEDThe [facility] Comment on above:Performed By: #### BCID2 #### [facility] [address] [place] [address] [address] Good [place] ParapsilosisNot detectedNormalNOT DETECTEDThe [facility] HospitalComment on above:Performed By: #### BCID2 #### [facility] [address] [place] [address] [address] Good [place] TropicalisNot detectedNormalNOT DETECTEDThe [facility] HospitalComasc[facility] on above:Performed By: #### BCID2 #### [facility] [address] [address] [address] Good CastellanoCTX-M Resistant GeneNot ApplicableNormalNOT DETECTEDThe [facility] HospitalComment on above:Performed By: #### BCID2 #### [facility] [address] [address] [address] Good James Cloacae complexNot detectedNormalNOT DETECTEDThe [facility] HospitalComasc[facility] on above:Performed By: #### BCID2 #### [facility] [address] [address] [address] Good James faecalisNot detectedNormalNOT DETECTEDThe [facility] Comment on above:Performed By: #### BCID2 #### [facility] [address] [address] [address] Good Piper. faeciumNot detectedNormalNOT DETECTEDThe [facility] Comment on above:Performed By: #### BCID2 #### [facility] [address] [address] [address] Good PipernterobacteriaceaeNot detectedNormalNOT DETECTEDThe [facility] HospitalComment on above:Performed By: #### BCID2 #### [facility] [address] [address] [address] Good Pughcherichia coliNot detectedNormalNOT DETECTEDThe [facility] HospitalComment on above:Performed By: #### BCID2 #### [facility] [address] [address] [address] Good Barriga. influenzaeNot detectedNormalNOT DETECTEDThe [facility] Comment on above:Performed By: #### BCID2 #### [facility] [address] [address] [address] Good Latham Resistant GeneNot ApplicableNormalNOT DETECTEDThe [facility] HospitalComment on above:Performed By: #### BCID2 #### [facility] [address] [place] [address] Dr. Good Molina. oxytocaNot detectedNormalNOT DETECTEDThe [facility] Comment on above:Performed By: #### BCID2 #### [facility] [address] [address] [address] Good Molina. pneumoniaeNot detectedNormalNOT DETECTEDThe [facility] Comment on above:Performed By: #### BCID2 #### [facility] [address] [address] [address] Good Singhebsiella aerogenesNot detectedNormalNOT DETECTEDThe [facility] HospitalComment on above:Performed By: #### BCID2 #### [facility] [address] [address] [address] Good CastellanoKPC Resistant GeneNot ApplicableNormalNOT DETECTEDThe [facility]Com[facility] on above:Performed By: #### BCID2 #### [facility] [address] [address] [address] Good Jauregui. monocytogenesNot detectedNormalNOT DETECTEDThe [facility] HospitalComment on above:Performed By: #### BCID2 #### [facility] [address] [address] [address] Good CastellanoMcr-1 Resistant GeneNot ApplicableNormalNOT DETECTEDThe [facility] HospitalComment on above:Performed By: #### BCID2 #### [facility] [address] [address] [address] Good Watson/CNot ApplicableNormalNOT DETECTEDThe [facility] Comment on above:Performed By: #### BCID2 #### [facility] [address] [place] [address] Dr. Good Watson/C MREJNot ApplicableNormalNOT DETECTEDThe [facility] Comment on above:Performed By: #### BCID2 #### [facility] [address] [place] [address] Dr. Good Ramirez. meningitidisNot detectedNormalNOT DETECTEDThe [facility]Com[facility] on above:Performed By: #### BCID2 #### [facility] [address] [place] [address] Dr. Good Lorenzo Resistant GeneNot ApplicableNormalNOT DETECTEDThe [facility] on above:Performed By: #### BCID2 #### [facility] [address] [place] [address] Dr. Good CrenshawUiialKpr-33-iwyyQok ApplicableNormalNOT DETECTEDParkview Health Comment on above:Performed By: #### BCID2 #### [facility] [address] [place] [address] Dr. Good CastellanoProteusNot detectedNormalNOT DETECTEDThe [facility] on above:Performed By: #### BCID2 #### [facility] [address] [place] [address] Dr. Good Gonzalez. aeruginosaNot detectedNormalNOT DETECTEDThe [facility] HospitalComment on above:Performed By: #### BCID2 #### [facility] [address] [address] [address] Good Paulino. maltophiliaNot detectedNormalNOT DETECTEDParkview Health Comment on above:Performed By: #### BCID2 #### [facility] [address] [address] [address] Good CastellanoSalmonellaNot detectedNormalNOT DETECTEDThe [facility] Comment on above:Performed By: #### BCID2 #### [facility] [address] [address] [address] Good Blankenship marcescensNot detectedNormalNOT DETECTEDThe [facility] HospitalComment on above:Performed By: #### BCID2 #### [facility] [address] [address] [address] Good Moctezuma:Rt AcNormalThe [facility] HospitalComment on above:Performed By: #### BCID2 #### [facility] [address] [place] [address] Dr. Good Benedict. aureusNot detectedNormalNOT DETECTEDThe [facility] Comment on above:Performed By: #### BCID2 #### [facility] [address] [address] [address] Good Benedict. epidermidisNot detectedNormalNOT DETECTEDThe [facility] on above:Performed By: #### BCID2 #### [facility] [address] [place] [address] Dr. Good Benedict. lugdunensisNot detectedNormalNOT DETECTEDThe [facility] HospitalComment on above:Performed By: #### BCID2 #### [facility] [address] [place] [address] Dr. Good CastellanoStaphylococcusNot detectedNormalNOT DETECTEDParkview Health Comment on above:Performed By: #### BCID2 #### [facility] [address] [place] [address] Dr. Good Bradshaw. agalactiaeNot detectedNormalNOT DETECTEDThe [facility] HospitalComment on above:Performed By: #### BCID2 #### [facility] [address] [address] [address] Good Bradshaw. pneumoniaeNot detectedNormalNOT DETECTEDThe [facility] HospitalComment on above:Performed By: #### BCID2 #### [facility] [address] [place] [address] Dr. Good Bradshaw. pyogenesDetectedCritically abnormalNOT DETECTEDThe [facility] HospitalComment on above:Performed By: #### BCID2 #### [facility] [address] [address] [address] Good BradshawtococcusDetectedCritically abnormalNOT DETECTEDThe [facility] HospitalComment on above:Performed By: #### BCID2 #### [facility] [address] [place] [address] Dr. Good Otto/Ryan De La Garza. GeneNot ApplicableNormalNOT DETECTEDThe [facility] HospitalComment on above:Performed By: #### BCID2 #### [facility] [address] [place] [address] Dr. Good Bhagat Resistant GeneNot ApplicableNormalNOT DETECTEDThe [facility] HospitalComment on above:Performed By: #### BCIAntonio #### [facility] [address] [place] [address] Dr. Good Raphael W MANUAL DIFFon [id number] LYMPH #NormalThe [facility] HospitalComment on above:Performed By: #### CBCJAVIER #### [facility] [address] [place] [address] Dr. Good AguirreYPICAL LYMPH %NormalThe [facility] HospitalComment on above: Performed By: #### CBCMAN #### [facility] [address] [place] [address] Dr. Good Patel #1.7 103/ulCritically high0.0-0.3The [facility] Comment on above:Performed By: #### BETTIE #### [facility] [address] [place] [address] Dr. Good Patel %5 %Normal0-5The [facility] HospitalComment on above:Performed By: #### BETTIE #### [facility] [address] [place], [place] [address] Dr. Good Lomeli #0.00 103/ulNormal0.00-0.10The [facility] HospitalComment on above:Performed By: #### CBCJAVIER #### [facility] [address] [place] [address] Dr. Good Lomeli %0.0 %Critically low0.2-2.0The [facility] HospitalComment on above:Performed By: #### CBCMAN #### [facility] [address] [place] [address] Dr. Good Angel #NormalThe [facility] HospitalComment on above:Performed By: #### CBCJAVIER #### [facility] [address] [place] [address] Dr. Good Angel %NormalParkview HealthComment on above:Performed By: #### BETTIE #### [facility] [address] [place] [address] Dr. Good CastellanoCORRECTED WBCNormal4.0-11.0The [facility] HospitalComment on above: Performed By: #### CBCJAVIER #### [facility] [address] [place] [address] Dr. Good Walter #0.00 103/ulNormal0.00-0.70The [facility] HospitalComment on above:Performed By: #### BETTIE #### [facility] [address] [place] [address] Dr. Good Walter%0.0 %Critically low0.9-7.0The [facility] HospitalComment on above:Performed By: #### CBCJAVIER #### [facility] [address] [place] [address] Dr. Good CastellanoHCT38.1 %Critically low42.0-54.0The [facility] HospitalComment on above:Performed By: #### CBCMAN #### [facility] [address] [place] [address] Dr. Good CastellanoHGB13.2 g/dlCritically low14.0-18.0The [facility] HospitalComment on above:Performed By: #### CBCMAN #### [facility] [address] [address] [address] Good Dinh #0.33 103/ulCritically low1.20-3.80The [facility] Comment on above:Performed By: #### BETTIE #### [facility] [address] [address] [address] Good Dinh%1.0 %Critically low20.5-60.0The [facility] HospitalComment on above:Performed By: #### BETTIE #### [facility] [address] [place] [address] Dr. Good LaytonH25.8 pgCritically low25.9-34.0The [facility] HospitalComment on above:Performed By: #### BETTIE #### [facility] [address] [place] [address] Dr. Good LaytonHC34.6 g/tzKxnhjs90.9-35.2The [facility] HospitalComment on above:Performed By: #### BETTIE #### [facility] [address] [place] [address] Dr. Good LaytonV74.6 fLCritically low80.0-94.0The [facility] HospitalComment on above:Performed By: #### BETTIE #### [facility] [address] [place] [address] Dr. Good FarrOCYTE #NormalThe [facility] HospitalComment on above: Performed By: #### BETTIE #### [facility] [address] [place] [address] Dr. Good FarrOCYTE %NormalThe [facility] HospitalComment on above: Performed By: #### BETTIE #### [facility] [address] [place] [address] Dr. Good Munoz#0.00 103/ulCritically low0.30-0.80The [facility] Comment on above:Performed By: #### BETTIE #### [facility] [address] [place] [address] Dr. Good Munoz%0.0 %Critically low1.7-12.0The [facility] HospitalComment on above:Performed By: #### BETTIE #### [facility] [address] [place] [address] Dr. Good SiddiqiV12.8 fLNormal9.5-13.5The [facility] HospitalComment on above: Performed By: #### CBCJAVIER #### [facility] [address] [place] [address] Dr. Good Cline #NormalSelect Medical [facility], [facility] HospitalComment on above:Performed By: #### CBCJAVIER #### [facility] [address] [place] [address] Dr. Good Cline %NormalThe [facility] HospitalComment on above:Performed By: #### BETTIE #### [facility] [address] [place] [address] Dr. Good CastellanoNRBCNormalThe [facility] HospitalComment on above:Performed By: #### BETTIE #### [facility] [address] [place] [address] Dr. Good CastellanoPLT161 103/quCjmpgu836-740Hib [facility] HospitalComment on above: Performed By: #### BETTIE #### [facility] [address] [place] [address] Dr. Good CastellanoRBC5.11 106/ulNormal4.70-6.10The [facility] HospitalComment on above:Performed By: #### BETTIE #### [facility] [address] [place] [address] Dr. Good CastellanoRDW14.6 %Yhyukc65.0-15.0The [facility] HospitalComment on above: Performed By: #### BETTIE #### [facility] [address] [place] [address] Dr. Good Welsh #31.40 103/ulCritically high1.40-6.50The [facility] on above:Performed By: #### BETTIE #### [facility] [address] [place] [address] Dr. Good Welsh %94.0 %Critically high43.0-75.0The [facility] HospitalComment on above:Performed By: #### CBCMAN #### [facility] [address] [place] [address] Dr. Good Aguilar TriHealthComment on above:Performed By: #### CBCMAN #### [facility] [address] [place] [address] Dr. Good CastellanoWBC33.4 103/ulCritically high4.0-11.0[facility] HealthComment on above:Performed By: #### CBCMAN #### [facility] [address] [place] [address] Dr. Good Zuleta 91-19-6975YJ [Catalytic activity/Vol]69 U/WDvsgpg18-626Ova [facility] on above:Performed By: #### HSTROPN, CRP, CK, CMP #### [facility] [address] [place] [address] Dr. Good Forte 55-89-3166BFH [Mass/Vol]mg/LNormal<=1.0[facility] on above:Performed By: #### BCID2 #### [address] [address] [address] Good Chadwick ABD ASHISH WWO CON LE RUNOFFon [id number] ABD ASHISH WWO CON LE RUNOFFEXAM: CTA ABD ASHISH WWO CON LE RUNOFF [...] HISTORY: PAIN IN LEG, UNSPECIFIED COMPARISON: None. FINDINGS: Lower chest: The lower lungs are [...] obstruction or active inflammation. The appendix is unremarkable.Diverticula are seen of the colon, more significant [...] Electronically authenticated by: MICHELLE STROUD Date: 2023-01-23 21:57[facility] HospitalCULTMERIT HEALTH NATCHEZ BLOODon 48-56-2030Cfhomxykenq examination of blood, cultureCulture Observations: Aerobic bottle positive only. BCID: Streptococcus Pyogenes (Group A) Culture Observations: Please refer to accession #[id number] for susceptibilities. Culture Observations: NO GROWTH IN ANAEROBIC BOTTLE AT 5 DAYS. Isolate 1 Streptococcus pyogenes Growth ofMercy Health Kings Mills HospitalComment on above:Performed By: #### BLDCX2 #### [facility] [address] [place] [address] Dr. Good Hicks-19 PCR ([facility])on [id number]-CoV-2 (COVID-19) RNA DREA+probe Ql (Unsp spec)Not detectedNormalNOT DETECTEDThe [facility] Comment on above:Result Comment: When diagnostic testing is negative, the [...] for this test is supported by the Vp Strategic Planning of Health and Human Service's declaration that circumstances exist to justify the emergency use of in vitro diagnostics for the detection and/or diagnosis of the virus that causes COVID-19. This EUA will remain in effect for the duration of the COVID-19 declaration justifying emergency of IVDs, unless it is terminated or revoked by the FDA (after which the test may no longer be used).Performed By: #### BCID2 #### [facility] [address] [place] [address] Dr. Good CastellanoLACTATE/LACTIC ACIDon 79-14-7761Ykugybv [Moles/Vol]2.6 mmol/L Critically high0.4-2.0The [facility] on above:Performed By: #### LACT #### [facility] [address] [place] [address] Dr. Good Sanchez VENOUS BLOODon 94-36-6938CQK5 OGXQDL53.0 mmHgCritically low 40.0-52.0The [facility] on above:Performed By: #### BCID2 #### [facility] [address] [place] [address] Dr. Good Sanchez VENOUS7.771Rarozv6.330-7.430The [facility] on above:Performed By: #### BCID2 #### [facility] [address] [place] [address] Dr. Good Kincaid 14(COMP METB)on 85-72-9553Hqocsae [Mass/Vol]1.4 g/dL Critically low3.4-5.0The [facility] HospitalComment on above:Performed By: #### HSTROPN, CRP, CK, CMP #### [facility] [address] [place] [address] Dr. Good CastellanoAlbumin/Globulin [Mass ratio]0.3 {ratio}NormalThe [facility] HospitalComment on above:Performed By: #### HSTROPN, CRP, CK, CMP #### [facility] [address] [place] [address] Dr. Good Au [Catalytic activity/Vol]218 U/LCritically zukd27-399Fud [facility] HospitalComment on above:Performed By: #### HSTROPN, CRP, CK, CMP #### [facility] [address] [place] [address] Dr. Good Nieves [Catalytic activity/Vol]113 U/LCritically zuzf20-83Zoz [facility] HospitalComment on above:Performed By: #### HSTROPN, CRP, CK, CMP #### [facility] [address] [place] [address] Dr. Good Barton gap [Moles/Vol]17.7 mmol/LNormalThe [facility] Comment on above:Performed By: #### HSTROPN, CRP, CK, CMP #### [facility] [address] [place] [address] Dr. Good CastellanoAST [Catalytic activity/Vol]75 U/LCritically piud63-35Gyf [facility] HospitalComment on above:Performed By: #### HSTROPN, CRP, CK, CMP #### [facility] [address] [place] [address] Dr. Good CastellanoBilirubin [Mass/Vol]2.7 mg/dLCritically high0.2-1.0The [facility] HospitalComment on above:Performed By: #### HSTROPN, CRP, CK, CMP #### [facility] [address] [address] [address] Good CastellanoCalcium [Mass/Vol]8.3 mg/dLCritically low8.5-10.1The [facility] HospitalComment on above:Performed By: #### HSTROPN, CRP, CK, CMP #### [facility] [address] [address] [address] Good CastellanoChloride [Moles/Vol]94 mmol/LCritically itw59-204Pcd [facility] HospitalComment on above:Performed By: #### HSTROPN, CRP, CK, CMP #### [facility] [address] [place] [address] Dr. Good CastellanoCO2 [Moles/Vol]19.4 mmol/LCritically low21.0-32.0The [facility] HospitalComment on above:Performed By: #### HSTROPN, CRP, CK, CMP #### [facility] [address] [place] [address] Dr. Good CastellanoCreatinine [Mass/Vol]2.38 mg/dLCritically high0.70-1.30The [facility] on above:Performed By: #### HSTROPN, CRP, CK, CMP #### [facility] [address] [place] [address] Dr. Good PiperGFR-AF KTMCHYFL22 mL/min/1.84q3Cfakhfzktz low>=60The [facility]Com[facility] on above:Performed By: #### HSTROPN, CRP, CK, CMP #### [facility] [address] [place] [address] Dr. Good PiperGFR-NON AF PNXQVVQR70 mL/min/1.10t9Nnhlzhhsnx low>=60The [facility] on above:Performed By: #### HSTROPN, CRP, CK, CMP #### [facility] [address] [place] [address] Dr. Good CastellanoGlobulin (S) [Mass/Vol]4.5 g/dLNormalThe [facility] HospitalComment on above:Performed By: #### HSTROPN, CRP, CK, CMP #### [facility] [address] [address] [address] Good CastellanoGlucose [Mass/Vol]131 mg/dLCritically wxtz55-258Daw [facility] HospitalComment on above:Performed By: #### HSTROPN, CRP, CK, CMP #### [facility] [address] [address] [address] Good CastellanoPotassium [Moles/Vol]4.1 mmol/LNormal3.5-5.1The [facility] Comment on above:Performed By: #### HSTROPN, CRP, CK, CMP #### [facility] [address] [address] [address] Good CastellanoProtein [Mass/Vol]5.9 g/dLCritically low6.4-8.2The [facility] HospitalComment on above:Performed By: #### HSTROPN, CRP, CK, CMP #### [facility] [address] [address] [address] Good CastellanoSodium [Moles/Vol]127 mmol/LCritically mlm296-978Xfr [facility] HospitalComment on above:Performed By: #### HSTROPN, CRP, CK, CMP #### [facility] [address] [address] [address] Good CastellanoUrea nitrogen [Mass/Vol]78.0 mg/dLCritically high7.0-18.0The [facility] HospitalComment on above:Performed By: #### HSTROPN, CRP, CK, CMP #### [facility] [address] [address] [address] Good CastellanoUrea nitrogen/Creatinine [Mass ratio]32.7 mg/mgNormalThe [facility] HospitalComment on above:Performed By: #### HSTROPN, CRP, CK, CMP #### [facility] [address] [address] [address] Good CastellanoPROTIMEsagrario 40-54-9219VGE Coag (PPP) [Relative time]1.00 {INR} NormalThe [facility] HospitalComment on above:Performed By: #### BCID2 #### [facility] [address] [place] [address] Dr. Good Jay [facility]SEE BELOWNoCleveland Clinic Akron GeneralComment on above:Result Comment: DESIRED INR: 2.0 - 3.0 CONDITIONS NOT LISTED BELOW 2.5 - 3.5 FOR PROSTHETIC HEART VALVE REPLACEMENT 2.5 - 3.5 RECURRENT THROMBOSIS Performed By: #### BCID2 #### [facility] [address] [place] [address] Dr. Good CastellanoPT Coag (PPP) [Time]10.6 sNormal9.0-11.6The [facility] Comment on above:Performed By: #### BCID2 #### [facility] [address] [place] [address] Dr. Good Alba 71-22-7635hDWJ Coag (Bld) [Time]26.5 rEuhmox13.3-36.2The [facility] HospitalComment on above:Performed By: #### BCID2 #### [facility] [address] [place] [address] Dr. Good CastellanoSED RATE WESTERGRENon 98-53-4126ZWT FKRH394 mm/hrCritically high <=20The [facility] on above:Performed By: #### SEDR #### [facility] [address] [place] [address] Dr. Good Scott, HIGH SENSITIVITYon 93-51-8441TZTUZC1.3 pg/mLNormal 4.0-76.1[facility] on above:Result Comment: CUT-OFF POINTS HAVE BEEN ESTABLISHED BASED ON THE FOURTH UNIVERSAL DEFINITIONS OF MYOCARDIAL INFARCTION. THE UPPER REFERENCE LIMIT (URL) OF TROPONIN, DEFINED THE 99TH PERCENTILE OF cTnI DISTRIBUTION IN A REFERENCE POPULATION, HAS BEEN CONFIRMED THE DECISION THRESHOLD FOR MD DIAGNOSIS.Performed By: #### HSTROPN, CRP, CK, CMP #### [facility] [address] [place] [address] Dr. Good Castellano Vital Signs Date TimeVital SignValuePerforming RbyioglapMchxbuzi36-59-5118 13:30-0400 Diastolic blood bkgixiil11 mm[Hg]Ryder Lew Jr., MD Work Phone (unformatted): [phone] [facility]05-30-2025 13:30-1578KwY0% (BldA) [Mass fraction]100 %Ryder Lew Jr., MD Work Phone (unformatted): [phone] [facility]05-30-2025 13:30-0400Systolic blood uzlaqkev037 mm[Hg]Ryder Lew Jr., MD Work Phone (unformatted): [phone] [facility]05-30-2025 13:15-0400Heart rate72 /Charo Lew Jr., MD Work Phone (unformatted): [phone] [facility]05-30-2025 13:15-0400Respiratory rate18 /Charo Lew Jr., MD Work Phone (unformatted): [phone] Community Hospital05-30-2025 12:24-0400Body gwbtehuilud14.7 [degF]Ryder Lew Jr., MD Work Phone (unformatted): [phone] Community Hospital05-30-2025 11:16-0400Body euyfhk886.5 cmDajuan r Lew Jr., MD Work Phone (unformatted): [phone] Community Hospital05-30-2025 11:16-0400Body mass index (BMI) [Ratio]22.62 kg/z7WjfzagRyder Lew Jr., MD Work Phone (unformatted): [phone] [facility]05-30-2025 11:16-0400Body .49 kgRyder Lew Jr., MD Work Phone (unformatted): [phone] [facility]03-26-2025 07:23-0400Body unakeknupao49.4 [degF]Mickey Hubbard MD Work Phone: [facility] HospitalAlt12 Apps [facility] HospitalEalult38-47-2196 07:23-0400Diastolic blood gedeuger60 mm[Hg]Mickey Hubbard MD Work Phone: [facility]03-26-2025 07:23-0400Heart rate79 /minMickey Hubbard MD Work Phone: [facility]03-26-2025 07:23-0400 Respiratory rate16 /minRadestinee Hubbard MD Work Phone: [facility]03-26-2025 07:23-0400Systolic blood lnstetqd357 mm[Hg]Mickey Hubbard MD Work Phone: [facility]03-26-2025 03:39-3464OaH1% (BldA) [Mass fraction]98 %Mickey Hubbard MD Work Phone: [facility]03-25-2025 06:00-0400Body mass index (BMI) [Ratio]22.14 kg/w4LxrggjMickey Hubbard MD Work Phone: [facility]03-25-2025 06:00-0400Body gscwuo18 kgMickey Hubbard MD Work Phone: [facility]03-21-2025 11:32-0400Body rsthgu526.8 cmRhawa Hubbard MD Work Phone: [facility]03-17-2023 19:37-8303XkM9% (BldA) [Mass fraction]98 %RYDER SHARPEOhioHealth Southeastern Medical CenterComment on above:Order Comment: Specimen Type: ARTERIAL BLOOD SPECIMENOrdering Facility: [facility]ITALAddress: [address] [place] [address] Performed By: #### ALLBG ####[facility] LABCLIA [id number] [address] [facility] T87NDVASVUBRADA[place], [place] [address] [facility] NWMHEXD15-17-8166 18:34-6736WoL5% (BldA) [Mass fraction]99 %RYDER SHARPEOhioHealth Southeastern Medical Center Comment on above:Order Comment: Specimen Type: ARTERIAL BLOOD SPECIMENOrdering Facility: [facility]ITALAddress: [address] [place] [address]Ihfpukioo By: #### ALLBG ####[facility] LABCLIA [id number] [address] [place]64FNMZXILMYADA[place], [place] [address] [place] Encounters Encounter DateEncounter TypeCare ProviderFacilityStart: 08-20-2025 End: 08-40-2821hbnbnirgrlSmmac T ParkerSt. [facility] Work Phone: Start: 08-20-2025 End: 88-10-7618Qgwgemmg Cas Multani MD-LAB [facility] Start: 07-05-2025 End: 61-13-4294psduieqkmjSfzqo M DuckSt. [facility] Work Phone: Start: 07-05-2025 End: 54-26-4384Tlhsuacp Nicole Carlisle PA-C-LAB [facility] Start: 04-12-2025 End: 94-61-1547jaysdvrryfLSGKYE S MURTAGH [facility] Start: 04-12-2025 End: 88-09-9822Amqurhrkvf hospital visit by physicianRyder Lew MD Work Phone (unformatted): [phone] [place] ORComment on above: Prostate cancer (HCC); BPH with obstruction/lower urinary tract symptomsStart: 04-05-2025 End: 32-37-3534gcasqfemldGmmhyhy [facility] Work Phone: Start: 04-05-2025 End: 06-54-3141Xiiaxxhg ReferredSantos Pay Work Phone: [facility]-LAB [facility]ospStart: 01-30-2025 End: 51-96-6549Zaimiuflxv and management of inpatientMickey Hubbard MD Work Phone: stVZ Car 2- StepdownStart: 89-58-7038MtnrmlBqesw Karamlou MD Work Phone: Hematology/OncologyComment on above:Refill Request Start: 03-25-2023 End: 82-17-0442snnatilunjSijzmmjl McFrederick PA-C Work Phone: OrthopaedicsComment on above:S/P Girdlestone procedure (Primary Dx); S/P flap graftStart: 03-25-2023 End: 62-63-3909Gmbcvbphbozu consultation with Sean Spicer PA-C Work Phone: [facility] MAINStart: 02-70-9480Naitmmvpm encounterGaby Parker MD Work Phone: OrthopaedicsComment on above:OrdersStart: 03-07-2023 End: 89-89-0193vwaqzvztxpGSMNA WEAVERFacility:[facility] HospitalStart: 03-07-2023 End: 68-14-5044Hysdheqqb therapyEmhakan Amaro APRN.CNP Work Phone: plastic SurgeryComment on above:Post-operative state (Primary Dx); Severe protein-calorie malnutrition (HCC)Start: 03-07-2023 End: 32-68-7918Kdydxtztftor consultation with patientEmhakan Amaro APRN.CNP Work Phone: ccf [facility] MAINStart: 62-65-8594uweekuqiff Alicia Nguyễn RNInfectious DiseaseComment on above:CoPat StopStart: 03-04-2023 Telephone encounterEmhakan Amaro APRN.CNP Work Phone: plastic SurgeryComment on above:Patient Question (Charito from [facility] calling/)Start: 12-71-6373Wronelkhw encounterAlverto Rogers MD Work Phone: plastic SurgeryComment on above:Patient UpdateStart: 02-28-2023 End: 24-97-4674ypkzcoqhecYFTUEVELINA [facility]ard HospitalStart: 02-22-2023 End: 84-83-4348cdcfuvuyhkNGQP PRATIKUniversity Hospitals [facility] Center HospitalStart: 02-22-2023 End: 01-82-1267Brzodykdqb hospital visit by physicianGaby Parker MD Work Phone: mWHZ LaboratoryComment on above:Refill RequestStart: 91-97-6699Mclqqacyw encounterGaby Parker MD Work Phone: OrthopaedicsComment on above:Patient UpdateStart: 46-10-3215Esioiqzxyf and management of inpatientNEHEMIAH MCKINNEY [facility] HospitalStart: 91-66-3297gsbqdncrgmPoincytRadha Brown MD Work Phone: Infectious DiseaseComment on above:CoPat AgencyStart: 71-73-8164Ynraxselb encounterAlverto Rogers MD Work Phone: plastic SurgeryComment on above:Patient Question (Need clarification on wound care orders )Start: 01-63-7017Befesykmo encounterJaimee Morales RN Work Phone: Hematology/OncologyComment on above:Care Coordination (Medication update)Start: 47-88-6672XrcpniRuzjqLuis Miguel Betts MD Work Phone: Hematology/OncologyComment on above:Refill Request Start: 27-36-9389Rezmuvlog encounterJaimee Morales RN Work Phone: Hematology/OncologyComment on above:Care Coordination (question)Start: 90-94-2895hcohbswjzdWexaspyRadha Brown MD Work Phone: INFD HOSPComment on above:CoPat StartStart: 01-29-2023 End: 80-69-2028fgiuwwiujrXBVYEU M MOLLOYFacility:[facility] HospitalStart: 53-33-3774Thtrdfetor and management of inpatientDANIEL JOYCEFacility:[facility] HospitalStart: 01-23-2023 End: 21-61-8205nzshutzcpdZAOANW NILAM .Facility:B4Etagv: 80-56-6866Zejcsy Jonah Betts MD Work Phone: Hematology/OncologyComment on above:Refill Request Start: 78-97-1556xjazasaaheKlcryAbilio Betts MD Work Phone: Hematology/OncologyComment on above:MeStart: 81-14-3443Yakzacsrz encounterJonah Betts MD Work Phone: Cancer Appts MCComment on above:No ShowStart: 26-46-4566Fmkkrvgjy encounterMaryanne Tavarez PA-C Work Phone: Hematology/OncologyComment on above:Lab OrdersStart: 98-41-1478syjtfrtyddZHUTT KARAMLOUFacility:K5Nbzqd: 62-17-2204msyykjdfpxXrnfmAbilio Betts MD Work Phone: Hematology/OncologyComment on above:TestsStart: 45-09-5740mrjkmmllivPefl Ray DO Work Phone: [facility] MAINStart: 69-36-1589Xgxkszc encounter procedureKyle Ray DO Work Phone: Palliative MedicineComment on above:AppointmentStart: 69-15-9940WxrwfoIdahsNory Tavarez PA-C Work Phone: Hematology/OncologyComment on above:Refill Request Start: 41-39-8309Gcwnclcqnent stateMaryanne Tavarez PA-C Work Phone: [facility] Work Phone: Procedures DateProcedureProcedure DetailPerforming ClinicianStart: 82-54-5259Gspau culture Benji Wilkins PA-C Work Phone: Start: 43-53-1755Hadkjkxjzlw during operationRyder Lew MD Work Phone (unformatted): [phone]: 67-97-7299Qvlvmvi blood reagent Evan Mcdonough MD Work Phone: Start: 86-86-0491Jflwf metabolic panel calcium total Pantera Blackwell MD Work Phone: Start: 48-22-8395Ftvvokt blood reagent Evan Mcdonough MD Work Phone: Start: 51-30-2626Xncxe count hemoglobinNicholas Nic DO Work Phone: Start: 02-05-2025 End: 90-14-2789Ywmys metabolic panel calcium totalPantera Blackwell MD Work Phone: Start: 71-76-3539Uxpbrrnoa antegrade rs&Fitz Egan MD Work Phone: Start: 32-65-8031Aqownqi blood reagent Evan Mcdonough MD Work Phone: Start: 64-60-1255Bboxe count hemoglobinNicholas Nic DO Work Phone: Start: 14-05-3261Yeroa count hemoglobinNicholas Nic DO Work Phone: Start: 00-49-7165Zpcixsh blood reagent Evan Mcdonough MD Work Phone: Start: 07-94-4668Foyyugu blood reagent stripNicholas Nic DO Work Phone: Start: 02-41-5518Goky nephrostomy cath prq new access rs&Teri Pérez MD Work Phone: Start: 76-12-1058Iyifabkavhr timeDes Corona MD Work Phone: Start: 63-68-0229Oaqgkco blood reagent stripNicholas Nic DO Work Phone: Start: 37-33-9745Mdjqx of magnesiumRobying Corona MD Work Phone: Start: 65-29-4609XWGTI METABOLIC PANEL W/ REFLEX TO MG FOR LOW ANUPAMAobifaith Corona MD Work Phone: Start: 94-96-6623Dginopr blood reagent stripNicholas Nic DO Work Phone: Start: 84-72-6374Mxwtjnh blood reagent stripNicholas Nic DO Work Phone: Start: 28-02-3477Sicrz of magnesiumDes Corona MD Work Phone: Start: 36-26-3412FUIPJ METABOLIC PANEL W/ REFLEX TO MG FOR LOW KRobin Cj DICKINSON Work Phone: Start: 02-02-2025 End: 14-05-4233Qrazz of magnesiumRitchiein Cj DICKINSON Work Phone: Start: 11-19-1179NXSOA METABOLIC PANEL W/ REFLEX TO MG FOR LOW KRobin Cj DICKINSON Work Phone: Start: 09-72-5563Zpdpmre blood reagent stripNicholas Nic DO Work Phone: Start: 02-01-2025 End: 43-90-5754Wsuevuftxqp timeDavireg Pérez MD Work Phone: Start: 00-80-7967Rfhyxpoyxwn during operationSbertin Dodge MD Work Phone: Start: 02-01-2025 End: 87-56-8962WXMGTXZDII RETROGRADE PYELOGRAMSbertin Dodge MD Work Phone: Start: 73-47-8427Ovuxspe blood reagent stripNicholas Nic DO Work Phone: Start: 21-47-3843DADRD METABOLIC PANEL W/ REFLEX TO MG FOR LOW KRobin Cj DICKINSON Work Phone: Start: 08-11-2366Pptyz count complete auto&auto difrntl wbcDes Corona MD Work Phone: Start: 28-40-2140Tnzduhq blood reagent stripNicholas Nic DO Work Phone: Start: 57-87-4969Kzpsdcy blood reagent stripNicholas Nic DO Work Phone: Start: 42-78-7128Swtdfku blood reagent stripNicholjl Leigh DO Work Phone: Start: 09-44-0868Vwvymja blood reagent stripNicohio state east hospitaljl Leigh DO Work Phone: Start: 68-24-7556Xjraybh total xcpt refractometry urineDes Corona MD Work Phone: Start: 99-58-6067Rjdpj dip stick/tablet reagent auto microscopyDes Corona MD Work Phone: Start: 05-45-6816Ngutcsy blood reagent stripNicsharee Leigh DO Work Phone: Start: 22-23-5317AYLLH METABOLIC PANEL W/ REFLEX TO MG FOR LOW KRobin Cj DICKINSON Work Phone: Start: 94-38-5515Olyto count complete auto&auto difrntl wbcDse Corona MD Work Phone: Start: 83-31-7237Mi retroperitoneal real time w/image completeRico France MD Work Phone: Start: 46-01-6103Zdq routine ecg w/least 12 lds i&r onlyCojessi Carr MD Work Phone: Start: 38-55-6944Gptldlddvtb antibodies Roslyn France MD Work Phone: Start: 70-46-1881OGAYJ METABOLIC PANEL W/ REFLEX TO MG FOR LOW KCourtjd Carr MD Work Phone: Start: 47-74-1752QWTCHHXQPPHM, SERUMRico France MD Work Phone: Start: 34-16-8440Bcpuqpq electrophoretic fractj&quantj serumRico France MD Work Phone: Start: 87-50-1972Selutsydyz other sourceRico France MD Work Phone: Start: 75-39-1989Raodxzmve b surf antibody hbsabBistanislaw France MD Work Phone: Start: 39-27-2310Icdl ia hepatitis b surface antigen Rico France MD Work Phone: Start: 11-08-1604Hnsavascch exam chest single view Zaida Arzate MD Work Phone: Start: 26-00-3692Jrzpu of troponin quantitativeAdam C Paris DO Work Phone: Start: 01-30-2025 End: 12-34-5049Yekjhqd bacterial quanttative colony count urineAdam C Paris DO Work Phone: Start: 75-85-1058Bsfyf of troponin quantitativeAdam C Paris DO Work Phone: Start: 44-91-0863BTMCD METABOLIC PANEL W/ REFLEX TO MG FOR LOW KRobin Cj DICKINSON Work Phone: Start: 90-26-7829YNDZKGJUHRY CARE EVALUATION Jc Pérez MD Work Phone: Start: 40-50-4844Sub routine ecg w/least 12 lds i&r onlyAdam C Paris DO Work Phone: Start: 99-15-7002Grwqrpoekr bloodGaby Parker MD Work Phone: Start: 28-81-3607Mrhxbjs function panelGaby Parker MD Work Phone: Start: 68-42-5911Lmqqljsq screenDAJUAN R GAMBINOEComment on above:Order Comment: Specimen Type: BLOOD SPECIMENOrdering Facility: [facility] Address:[address] [place], [place] [address]Performed By: #### TSCR ####CC MAIN BLOOD BANKCLIA [id number] [facility] [id number] STATES OF AMERICAStart: 32-48-0277Cfmmunid screen RYDER Brown on above:Order Comment: Specimen Type: BLOOD SPECIMENOrdering Facility: [facility] Address:[place] [address]Performed By: #### TSCR ####CC MAIN BLOOD BANKCLIA [id number] [address] [address] [facility]PITALStart: 57-60-5616Nvajfocg screenDANIEL JOYCEComment on above:Order Comment: Specimen Type: BLOOD SPECIMENOrdering Facility: [facility] Address:[address]Performed By: #### TSCR ####CC MAIN BLOOD BANKCLIA [id number] [address]Start: 65-69-7839Euqpdcev screenDANIEL JANE Comment on above:Order Comment: Specimen Type: BLOOD SPECIMENOrdering Facility: [facility] Address:[address] [facility]ENTERReg [address] Performed By: #### TSCR ####CC MAIN BLOOD BANKCLIA [id number] [address]Start: 01-30-2023 Antibody screenDANIEL JOYCEComment on above:Order Comment: Specimen Type: BLOOD SPECIMENOrdering Facility: [facility] Address:[address]Performed By: #### TSCR ####CC MAIN BLOOD BANKCLIA [id number] [place] [id number] [facility]PITALStart: 40-42-9636Tkhbhtxy screenDANIEL JOYCEComment on above:Order Comment: Specimen Type: BLOOD SPECIMENOrdering Facility: [facility] Address:[place] [address]Performed By: #### TSCR ####CC MAIN BLOOD BANKCLIA [id number] [place] [id number] [facility]PITALStart: 83-83-3659Mmgibovs screenDANIEL JANE Comment on above:Order Comment: Specimen Type: BLOOD SPECIMENOrdering Facility: [facility] Address:[address] [place] [address] Performed By: #### TSCR ####CC MAIN BLOOD BANKCLIA [id number] [place] [address] [facility] AMERICAStart: 57-44-0466Iopdm depression screening assessmentThompson Ray DO Work Phone: Start: 08-07-9214Ewxnt depression screening assessment Maryanne Tavarez PA-C Work Phone: H/O: surgeryS/P flap graftGaby Parker MD Work Phone: H/O: surgeryS/P flap graftYris SCHREIBERC Work Phone: Plan of Treatment DateCare ActivityDetailAuthorStart: 82-48-1601Blyvzstyfhi Syncytial Virus (RSV) or age 60 yrs+ (1 - 1-dose 75+ series)Respiratory Syncytial Virus (RSV) or age 60 yrs+ (1 - 1-dose 75+ series)[facility] On The Net YetChildren's Hospital of The King's DaughtersStart: 92-25-5604RRWRTNIX CANCER SCREENING DISCUSSIONPROSTATE CANCER SCREENING DISCUSSIONTrinity Health System East Campustart: 82-08-9074XRFAXIKZ SCREENDIABETES SCREEN [facility] Campustart: 97-70-2060YJQDGGOV SCREENDIABETES SCREENTr[facility] Health [facility] Campus Start: 24-06-6630CSKAZBWF SCREENDIABETES SCREENTrinity Health System East Campustart: 02-08-2026 DIABETES SCREENDIABETES SCREENTrinity Health System East Campustart: 81-82-7589EWS test (Diabetes, CKD 3-4, OR last GFR 15-59)GFR test (Diabetes, CKD 3-4, OR last GFR 15-59)[facility] On The Net YetChildren's Hospital of The King's DaughtersStart: 98-02-9189QYOKFRJK SCREENDIABETES SCREEN [facility] Campustart: 05-85-9985Nhogbqwo specific antigen measurementProstate Specific Antigen (PSA) Screening or MonitoringBon [facility] On The Net YetChildren's Hospital of The King's DaughtersStart: 03-81-7024Fphqa [facility] Toledotart: 08-20-2025 Bacteria identified in Urine by CultureUrine CultureThe University of Toledo Medical Centertart: 20-66-1605Pjdpidqd identified in Urine by CultureUrine Culture [facility] Medical Centertart: 55-65-6053Pxjek [facility] Toledotart: 16-36-4522Kcndrxels vaccinationFlu vaccine (Season Ended)Bon [facility]Reg[facility] Hospital Cleveland WestStart: 04-12-2025 End: 02-89-9948Rtgkubgtmgb smpl/sm <2.5 cmCYSTOSCOPY URETEROSCOPY LASER Prostate cancer (HCC) BPH with obstruction/lower urinary tract symptoms 04/12/2025 11:32 AM [facility] HospitalStart: 60-09-9011Huzxlwzn identified in Urine by CultureUrine CultureThe University of Toledo Medical Centertart: 79-45-9987Gqvyk [facility] Toledotart: 02-22-2025 End: 39-30-0370Lvnernv encounter xkccayfln69/11/2025 1:00 PM EDT Office Visit [address] [place], [place] [address] Ryder Lew Jr., MD [address] [place] [address] -[phone] (Work) hosp f/u, definitive stone treatment, et high volume retention and needs void trial.[facility] CenterComment on above:hosp f/u, definitive stone treatment, et high volume retention and needs void trial.Start: 07-19-7967Xnepxp Wellness Visit (Medicare) Annual Wellness Visit (Medicare)Bon [facility]: 12-25-2024 DIABETES SCREENDIABETES SCREENTrinity Health System East Campustart: 58-66-1467JPNMV-19 Vaccine ( season)COVID-19 Vaccine ( season)[facility]: 01-99-2027Imcqnrqgs vaccinationFlu vaccine (#1)Bon [facility]: 40-55-2287Clftnjuqs vaccinationINFLUENZA (Season Ended)[facility] Campustart: 28-73-7546Ksaglhtou vaccinationFlu vaccine (Season Ended)[facility] Hospitalsart: 61-38-1045Fcqchzdtwpm Syncytial Virus (RSV) or age 60 yrs+ (1 - Risk 60-74 years 1-dose series)Respiratory Syncytial Virus (RSV) or age 60 yrs+ (1 - Risk 60-74 years 1-dose series)[facility] Hospitalart: 27-53-8148Fqxyq depression screening assessmentDEPRESSION SCREENINGTrinity Health System East Campustart: 99-31-6124Rtdpz depression screening assessment DEPRESSION SCREENINGTrinity Health System East Campustart: 82-85-4302QRUYYJUGBJ ASSESSMENT DEPRESSION ASSESSMENTTrinity Health System East Campustart: 16-96-0512Klzvtkjtq vaccination [facility]ustart: 03-26-2022 End: 04-59-2491QSA W Auto Differential panel - BloodCBC + DIFF Lab Routine Prostate cancer metastatic to bone (HCC) Expected: 03/26/2022, Expires: 05/262COhioHealth [facility] Work Phone: Comment on above:Expected: 03/26/2022, Expires: 05/26/2022tart: 05-61-1490ZBORWCXVXZ ASSESSMENTDEPRESSION ASSESSMENTTrinity Health System East Campustart: 91-61-0670Wooatunkyahf 50+ years Vaccine (1 of 1 - PCV)Pneumococcal 50+ years Vaccine (1 of 1 - PCV)[facility]: 2013 Shingles vaccine (1 of 2)Shingles vaccine (1 of 2)[facility] Hospitalart: 81-45-9866QTRJCOQP VACCINE (1 of 2)SHINGRIX VACCINE (1 of 2)[facility] Start: 00-36-6536OVYZBFTAU (FIT-DNA)COLOGUARD (FIT-DNA)[facility] Campustart: 12-94-2225OcyhzhicuuqUVEQBQQQMOWXazwoecor ClinicStart: 64-83-9373CGEMWKBXBW CANCER SCREENINGCOLORECTAL CANCER SCREENINGTrinity Health System [facility] Campustart: 67-96-7796NI COLONOGRAPHYCT COLONOGRAPHYTrinity Health System East Campustart: 45-58-9041TRUBL OCCULT BLOOD FECAL OCCULT BLOODTrinity Health System East Campustart: 35-44-9039Zrxkbqhki for malignant neoplasm of colonShenandoah Memorial Hospital: 92-46-7082TCPLJOPBODCHJ SIGMOIDOSCOPYTrinity Health System East Campustart: 06-18-5892Vodvb panelLipidsBon [facility]: 64-93-6890ZIIIV SCREENLIPID SCREENTrinity Health System East Campustart: 1982 DTaP/Tdap/Td vaccine (1 - Tdap)DTaP/Tdap/Td vaccine (1 - Tdap)[facility]: 28-57-1769Aihwrydhntsp 50+ years Vaccine (1 of 2 - PCV)Pneumococcal 50+ years Vaccine (1 of 2 - PCV)[facility]: 1982 Shingles vaccine (1 of 2)Shingles vaccine (1 of 2)[facility]: 79-20-5521MSTJLXUR VACCINE (1 of 2)SHINGRIX VACCINE (1 of 2)[facility] Start: 40-62-2551Eelpu microalbumin profileDTAP,TDAP,TD (1 - Tdap)[facility]ustart: 77-48-6698DRUUVNWNF C SCREENINGHEPATITIS C SCREENINGTrinity Health System East Campustart: 36-12-1684TFR SCREENINGHIV SCREENINGTrinity Health System East Campustart: 89-91-1081GFN screeningHIV screenShenandoah Memorial Hospital: 37-00-9427GCJNP- 19 VACCINE (1)COVID-19 VACCINE (1)[facility] Campustart: 32-66-0893Acqeanrvhj ScreenDepression ScreenShenandoah Memorial Hospital: 80-94-2779WPKUTSLNWVHB (1 - PCV)PNEUMOCOCCAL (1 - PCV)[facility] Campustart: 84-08-2027KWYEY-19 VACCINE (#1)COVID-19 VACCINE (#1)[facility] Campustart: 53-39-7312WEUOR-19 VACCINE (#1) COVID-19 VACCINE (#1)[facility] End: 30-62-0317Etlsl metabolic 2000 panel - Serum or PlasmaBasic Metabolic Panel Lab Routine Tomorrow AM for 5 Days starting 02/06/2025 until 02/10/2025, [address] Charles HospitalComment on above:Tomorrow AM for 5 Days starting 02/06/2025 until 02/10/2025, 1 completed End: 99-16-3001Eraia metabolic 2000 panel - Serum or PlasmaBasic Metabolic Panel Lab Routine One Time for 1 Occurrences starting 02/13/2025 until 02/13/2025on [place] on above:One Time for 1 Occurrences starting 02/13/2025 until 02/13/2025ontinuous pulse oximetryPulse oximetry, continuous Respiratory Care Routine Every 4hr until discontinued starting 01/30/2025 [facility] on above:Every 4hr until discontinued starting 01/30/2025Glucose [Mass/volume] in Serum or PlasmaBon [facility] Comment on above:4X Daily (AC & HS) until discontinued starting 01/30/2025s Needed until discontinued starting 01/30/2025 End: 22-27-9903Bauuznc [Mass/volume] in Serum or PlasmaPOCT Glucose Point of Care Testing Routine One Time for 1 Occurrences starting 04/12/2025 until 03/16 [facility] on above:One Time for 1 Occurrences starting 04/12/2025 until 04/12/2025 End: 24-66-8866NowjvhsqugafBwvehkhcajgd Dialysis Routine One Time for 1 Occurrences starting 01/30/2025 until 01/30/2025 [facility] on above:One Time for 1 Occurrences starting 01/30/2025 until 01/30/2025 End: 98-87-1053BIQAPNCJ PACU OXYGEN THERAPY PROTOCOLInitiate PACU Oxygen Therapy Protocol Respiratory Care Routine Continuous until discontinued starting 04/12/2025 Nanalysis Phone: Comment on above:Continuous until discontinued starting 04/12/2025Oxygen therapy [Minimum Data Set]Initiate Oxygen Therapy Protocol Respiratory Care Routine As Needed until discontinued starting 01/12 [facility] on above:As Needed until discontinued starting 01/30/2025Oxygen therapy [Minimum Data Set]Initiate Oxygen Therapy Protocol Respiratory Care Routine As Needed until discontinued starting 03/16 Nanalysis Phone: comment on above:As Needed until discontinued starting 04/12/2025Pathology studySurgical Pathology Lab Routine Prostate cancer (HCC) BPH with obstruction/lower urinary tract symptoms Release Upon Ordering for 1 Occurrences starting 04/12/2025on [facility]DisplayLink[facility] on above:Release Upon Ordering for 1 Occurrences starting 04/12/2025 End: 27-53-5891Vlyihmjklh examination pelvis 1/2 viewsXR PELVIS 1V AP Radiology Routine Necrotizing fasciitis (HCC) 1 Occurrences starting 02/28/2023 until 03/26/2024[facility] Work Phone: comment on above:1 Occurrences starting 02/28/2023 until 03/26/2024 End: 66-05-0598NUHTCQEI PATHOLOGY REPORTSURGICAL PATHOLOGY REPORT Lab Routine Once for 1 Occurrences starting 04/12/2025 until 04/12/2025on [facility]DisplayLinkMiss[facility] on above:Once for 1 Occurrences starting 04/12/2025 until 04/12/2025 End: 16-77-5542RT FEMUR GENERAL 2V AP/LAT LEFTXR FEMUR GENERAL 2V AP/LAT LEFT Radiology Routine Necrotizing fasciitis (HCC) 1 Occurrences starting 02/28/2023 until 03/26/2024[facility] Work Phone: comment on above:1 Occurrences starting 02/28/2023 until 03/26/2024[facility] Payers DatePayer CategoryPayerPolicy ID2025Self-pay2021MedicaidMEDICAID [facility] MEDICA[facility] [id number] 2021-Present [phone] [address] [place] [address] [id number] [id number] 2021MedicareMEDICARE MEDICARE A AND B [id number] 2021-Present [phone] [place] [address] [id number] 2021Medicare [id number] [id number] 2.16.840.1.012222.3.57[id number] 2.16.840.1.467627.3.579.2.34498-08-3099Zydjysm09257838 2.16.840.1.559400.3.579.[id number] 2.16.840.1.624929.3.579.[id number] 2.16.840.1.162561.3.579.2.30123-93-1039Fidzmwo088494079 [id number] [id number] 1962Medicare [id number] Social History DateTypeDetailFacilityStart: 04-24-2019 End: 97-71-5380Lmkrijc smoking status NHISSmokes tobacco dailyTrinity Health System [facility] Campus History of tobacco useCigarette SmokerTrinity Health System East Campustart: 04-24-2019 End: 00-66-3329Sradrbaieh smoked current (pack per day) - Foausbcb3Wsadkhfoo ClinicStart: 04-24-2019 End: 61-58-7320Sbneecr use and exposureFormer smokeless tobacco userTrinity Health System East Campustart: 12-25-2021 End: 42-62-6697Spbwles intakeEx-drinker (finding)[facility] Campustart: 68-52-9961Bbz Assigned At [facility] Hospitaltart: 12-19-2021 End: 56-89-3594Occeawwq to SARS-CoV-2 (event)Not sureTrinity Health System East CampusToconnecticut children[facility] smoking status NHISTobacco smoking consumption unknownWICKEN[facility] [employer] Work Phone: start: [phone] Assigned At BirthNot on fileTheraSim Work Phone: start: 01-30-2025 End: 16-46-3070Ocwcykx Use Disorder Identification Test - Consumption [AUDIT-C] NXEHow often to you have a drink containing alcohol?Never NXEHow many standard drinks containing alcohol do you have on a typical day?Patient does not drinkBon Arlington HealthCareHow often do you have 6 or more drinks on 1 occasion?Less than monthlyBanner [facility] HealthCare Start: 02-21-2023 End: 03-51-7706VccBupg (finding)NXE Medical Equipment Procedure CodeEquipment CodeEquipment Original TextEquipment IdentifierDates Cement Simplex P Tobramycin Bone Full Dose Radiopaque Preblend Sterile - [id number]: 91-07-5943Idomom Simplex P Tobramycin Bone Full Dose Radiopaque Preblend Sterile - [id number]: 96-41-6446Ltws Lfit 26mm 0 Cocr Femoral C Taper Hip - [id number]: 30-88-7203Szef Omnifit Fabián 8.9mm 132d 5 35mm Offset Cocr 110mm 30mm Femoral Cemented - [id number]: 13-27-3862Rodcqhyxtm Medium Springwater Cement Disposable Firearms Instructor Distal - [id number]: 29-11-4610Mdjb Uhr 52mm 26mm Springwater Cocr Uhmwpe Bipolar Hip - [id number]: 02-25-2021 Spacer Accolade 9mm Springwater Femoral Cemented Hip - [id number]: 21-18-2192Ptlpp:[id number]: 02-04-2025 Functional Status DateAssessmentResultFaJohnston Memorial Hospital Clinical Notes 02-16-2022 to 04-12-2025 Note Date & AgftKumfArbfwwvd69-16-5889 Hospital Discharge instructions* Discharge Instructions* Esther Oliveira RN - 04/12/2025 7:30 AM [...] narcotics Please call attending physician or hospital hat forming machine operator with questions Call or Present to ED if fever (> 101F), intractable nausea vomiting or pain. Rx in chart Pt should follow up with Dr. Ryder Lew Jr, MD, in Will schedule office visit for catheter removal and pathology in 1-2 weeks. Follow up 4-8 weeks in office with PSA Activity You have had anesthesia today Do not drive, operate heavy equipment, consume alcoholic beverages, or make any important decisionsfor 24 hours If you are taking pain medication: Do not drive or consume alcohol. Take your time changing positions today. You may feel light headed or dizzy if you move too quickly. Continue your home medications as ordered by your physician. Diet You can eat your normal diet when you feel well. You should start off with bland foods like chickensoup, toast, or yogurt. Then advance as tolerated. [...] yellow. Check with your doctor about any limitson fluid intake. You may shower with the [...] not been there before. documented in this [facility]Bon [facility] Discharge instructions* Discharge Instructions* Sondra Miner PA-C - 02/06/2025 9:43 AM EDT CALL UROLOGIST TO SCHEDULE CLOSE OUTPATIENT FOLLOW UP IN THE OFFICE TO DISCUSS FURTHER TREATMENTS/RETENTION ISSUES. FOLLOW UP IS NANCE WITH STENT IN PLACE KIDNEY STONE WILL NEED TREATED WITH PROCEDURE WITHIN A FEW WEEKS HUMMEL NEEDS TO BE REMOVED WITHIN 3 WEEKS. CALL OFFICE FOR ARRANGING VOIDING TRIAL. * Attachments The following attachments cannot be sent through Care Everywhere. * Ureteral Stent Placement: Post-op (Ivorian) * Indwelling Urinary Catheter Care: General Info (Ivorian) documented in this encounterBon St. [facility]03-[facility]-2025 NotePROCEDURE: RIGHT NEPHROSTOGRAM WITH NEPHROSTOMY TUBE REMOVAL 02/05/2025 [...] the procedure including risks, benefits, and alternatives. Springwater protocol was observed. Sterile gowns, masks, hats and gloves utilized for maximal sterile barrier. Molasses Coloring Operator view shows a right nephrostomy tube in [...] department in stable condition. EBL: Minimal MHPN [facility] [id number] NotePROCEDURE: RIGHT NEPHROSTOGRAM WITH NEPHROSTOMY TUBE REMOVAL 02/05/2025 [...] the procedure including risks, benefits, and alternatives. Springwater protocol was observed. Sterile gowns, masks, hats and gloves utilized for maximal sterile barrier. Molasses Coloring Operator view shows a right nephrostomy tube in [...] Nephrostomy tube was removed uneventfully. Interpreted by: Esua Egan MD Signed by: Esau Egan MD 02/06/25 Final resultOhio [facility]03-26-2025 History of Present illness Narrative* Lennie Vincent RN - 02/06/2025 8:53 AM EDT Pt stated that he is planning to call his ride at 1030 if he doesn't see a dr by then . RN sent PSto Dr Mcdonough regarding this and asked to [...] requesting it to be sent to [facility] in [place]. RN sent PS to Dr Mcdonough and requested that it be sent there instead. * Pantera Blackwell MD - 02/05/2025 3:05 PM EDT Renal Progress Note Patient : Fareed Correa; [...] Hummel catheter in place. Intravenous cefepime continues. He modynamically stable overall. Labs from today pending. Expect [...] has received 6 cycles. Was lost to follow-up.Presented to [facility] due to decreased urine output and [...] of 6.9. He was then transferred to [facility] underwent 1 dialysis treatment on 01/30/2025. He then underwent cystoscopy on 02/01/[address] ureteral stents. Thereafter was seen by IR underwent right side nephrostomy tube placement and antegradestent on 02/04/25. Renal functions continue to improve [...] will continue to follow along with you. * Jose G Mcdonough MD - 02/05/2025 1:11 PM EDT [facility] IN-PATIENT SERVICE [facility] Progress Note 02/05/2025 1:11 PM Name: Fareed Correa Acct: [id number] Room: Day: 6 Admit Date: 01/30/2025 4:04 AM PCP: Evelina Davila DO Code Status: Full Code Subjective: Interval History [...] m (5' 10 ) Wt 70 kg (154lb 5.2 oz) SpO2 98% BMI 22.14 kg/m [...] , PHART , PH , POCPCO2 , GRI7CXR , PCO2 , POCPO2 , PO2ART , PO2 , POCHCO3 , LJF1PRD , HCO3 , NBEA , PBEA , BEART , BE , THGBART , THB , RVI9CLO , QENC3RKB , V5MVUGBQ , O2SAT , FIO2 Lab Results Component Value Date/Time SPECIAL Site: Urine 01/30/2025 05:19 AM Lab Results Component Value Date/Time CULTURE NO GROWTH 01/30/2025 05:19 AM Radiology: IR GUIDED NEPHROSTOMY CATH PLACEMENT RIGHT Result Date: 02/04/2025 Successful percutaneous right nephrostomy tube placement. Successful antegrade right ureteral stentplacement; 8 Chilean by 24 cm double-J stent was deployed. [...] Jose G Mcdonough MD 02/05/2025 1:11 PM * Des Corona MD - 02/05/2025 7:06 AM EDT Urology Progress Note Subjective: Status post attempted but unsuccessful bilateral ureteral stent placement 02/01/2025, status post IR right antegrade stent and right nephrostomy tube placement yesterday, right nephrostomytube is clamped Nothing acute overnight Afebrile, vital [...] LEUKOCYTESUR , UROBILINOGEN , BILIRUBINUR , BLOODU inthe last 72 hours. Invalid input(s): NITRATE , [...] Levsin as needed for bladder spasms Continue firmagon Des Corona MD PGY-5 7:06 AM 02/05/2025 * Pantera Blackwell MD - 02/04/2025 3:37 PM EDT Renal Progress Note Patient : Fareed Correa; [...] has received 6 cycles. Was lost to follow-up.Presented to [facility] due to decreased urine output and [...] of 6.9. He was then transferred to [facility] underwent 1 dialysis treatment on 01/30/2025. He then underwent cystoscopy on 02/01/[address] ureteral stents. Thereafter was seen by IR underwent right side nephrostomy tube placement and antegradestent on 02/04/25. Renal functions continue to improve [...] sulfate, ondansetron OR ondansetron, polyethylene glycol, acetaminophen ORacetaminophen, HYDROmorphone, glucose, dextrose bolus OR dextrose bolus, [...] will continue to follow along with you. * Rhys Leigh DO - 02/04/2025 9:18 AM EDT Images from the original note were not included. [facility] Office: [phone] Jose Roberto Child DO, Dominic Clay DO, [...] MD, Cliff Brown MD, Cammy Mendosa MD, Ryder Ocampo DO, Saud Lynne MD, Dwight Gamble MD, Marcus Gamble MD, Angela Martin, DESIGN DRAFTER CHIEF, Susan Ribera, DESIGN DRAFTER CHIEF, Ryder Mello, DESIGN DRAFTER CHIEF, Libby Claire, [facility], Carmela Kilpatrick, DESIGN DRAFTER CHIEF, Britney Choudhury, DESIGN DRAFTER CHIEF, Clau Verma, DESIGN DRAFTER CHIEF, Velia Castillo, DESIGN DRAFTER CHIEF, Lidia Mathews PA-C, Kenisha Strong, DESIGN DRAFTER CHIEF, Cathy Jimenez, DESIGN DRAFTER CHIEF, Leah Ny, DESIGN DRAFTER CHIEF, Rebecca Perales, DESIGN DRAFTER CHIEF, Yvette Calderon, DESIGN DRAFTER CHIEF,Selena Breaux, [facility], Kady Hoffman, DESIGN DRAFTER CHIEF, Roxanne Lo, [facility], Rosy Xavier, [facility] IN-PATIENT SERVICE [facility] Progress Note 02/04/2025 9:18 AM Name: Fareed Correa Acct: [id number] Room: IP Day: 5 Admit Date: 01/30/2025 4:04 AM PCP: Evelina Davila DO Code Status: Full Code Subjective: C/C: Urinary Retention. Interval History Status: improved. Vitals reviewed, Afebrile and hemodynamically stable. Saturating well on room air. Labs reviewed, BUN and creatinine improving 29 and 2.1 respectively but improving, leukocytosis resolved, hemoglobin stable, platelets stable. Overnight patient had no significant events. On examination patient resting comfortably in bed. Status post cystoscopy with bilateral retrogradepyelogram on 02/01/2025. Urology with plan for IR placement of right nephrostomy tube with antegradestent if possible which was done on 02/04/2025. Patient had gross hematuria following procedure. Will hold subcutaneous heparin for now and monitor. Brief History: This is a 59-year-old male with a significant past medical history of metastatic prostate cancer who initially presented to [facility] facility for urinary retention. He states over the past week he noticed it became increasingly more difficult to urinate to the point where he was only urinating while sleeping with accidents. Complained of suprapubic abdominal pain. At outlying facility he was found to be hyperkalemic 6.9 and Hummel catheter was placed draining [address] imaging demonstrated bilateral hydronephrosis and hydroureter with a 4 mm stone in the distal right ureter just proximal to the ureteral vesicular junction. He was transferred to [facility] ICU for evaluation. He was evaluated by urology with plan to maintain Hummel catheter for minimum 1 week due to high-volume urinary retention. Nephrology was consulted and patient was ultimately startedon hemodialysis due to hyperkalemia. He improved and [...] Q24H Continuous Infusions: sodium chloride Stopped (02/03/25 8903) sodium chloride 60 mL/hr at 02/03/25 2334 dextrose PRN Meds: lidocaine, sodium chloride flush, sodium chloride, potassium chloride OR potassium chloride, magnesium sulfate, ondansetron OR ondansetron, polyethylene glycol, acetaminophen ORacetaminophen, HYDROmorphone, glucose, dextrose bolus OR dextrose bolus, [...] , PHART , PH , POCPCO2 , CRX3DND , PCO2 , POCPO2 , PO2ART , PO2 , POCHCO3 , CUI9KQE , HCO3 , NBEA , PBEA , BEART , BE , THGBART , THB , RPS3SPU , RMPU6JOI , C3HTIBZW , O2SAT , FIO2 Lab Results Component [...] 2 areas of erythema to abdomen which havenot expanded past the marked area presumed from [...] function. Rhys Leigh DO 02/04/2025 9:18 AM * Des Corona MD - 02/04/2025 8:38 AM EDT Urology Progress Note Subjective: Status post attempted [...] LEUKOCYTESUR , UROBILINOGEN , BILIRUBINUR , BLOODU inthe last 72 hours. Invalid input(s): NITRATE , [...] is for right nephrostomy tube placement today Tuesday,02/04/2025 N.p.o. Hold any and all blood thinners Maintain Hummel catheter for maximum decompression of urinary system, having high urinary output Monitor electrolytes for any imbalances requiring replacement Levsin as needed for bladder spasms Des Corona MD PGY-5 8:38 AM 02/04/2025 * Loyda Berry RN - 02/03/2025 11:44 AM EDT CVC removed. Catheter intact with removal. Pressure dressing applied. * Rico France MD - 02/03/2025 9:18 AM EDT Nephrology Progress Note Patient: Fareed Correa; 59 y.o. Location: Attending: Rhys Leigh DO Admit Date: 01/30/2025 Hospital Day: 4 Subjective History: 59-year-old male with past medical history of prostate cancer with mets to the lung and bone in 2019 status post treatment with Casodex, Lupron, Taxotere, Xtandi and Zometa x 6 cycles who presented initially to [facility] due to urinary incontinence, decreased urine output and fatigue. Patient has been treated in the outpatient setting by his PCP for possible urinary tract infection, did not feel the antibiotics were helping with his symptoms. Patient was noted to have suprapubic pain inthe ED, Hummel was placed and patient put out over 1.3 L of urine within the first 10 minutes. Labs on admission demonstrated creatinine of 13, BUN of 108, and potassium of 6.9, nephrology was consulted for VALERIA and decision was made to initiate HD on 01/30/2025. Patient underwent cystoscopy with retrograde pyelogram with urology on 02/01/2025, unable to place bilateral ureteral stents, bilateral PCNtubes planned for tomorrow Patient seen and evaluated [...] (36.6 C), Min:97.1 F (36.2 C), Max:98.5 F(36.9 C) 24 HR BLOOD PRESSURE RANGE: Systolic [...] with any questions. Libby Claire APRN - [employer] [facility]. Attending Physician Statement I have discussed the care of Fareed Correa, including pertinent history and exam findings with theresident/fellow. I have reviewed the nance elements of [...] creatinine of around 13. His other electrolytes lookreasonably good as well. Last 24-hour urine output was 2.8 L. I believe he only got 1 hemodialysis treatment. Urology attempted bilateral ureteric stent placements unsuccessfully so. He is scheduled for rt PCNwith IR tomorrow. Decrease IV fluids to 60 mL an hour Rico France MD , MD * Rhys Leigh DO - 02/03/2025 8:54 AM EDT Images from the original note were not included. [facility] Office: [phone] Jose Roberto Child DO, Dominic Clay DO, Harrison Arciniega DO, Santos Spence DO, Lennie Martino MD, Jessica Urbina MD, Shayy Hernández MD, Tiffanie Russo MD, Rickey Hardy MD, Ger Philip MD, Carl Arvizu MD, Dwight Acevedo DO, Radha Easley MD, Edy Villanueva MD, Kaushik Child DO, Brandee Beaulieu MD, Rhys Leigh DO, Saira Solorzano MD, eJrri Giles MD, Genoveva Ellsworth MD, Vinnie Bustillos MD, Glenn Diego MD, Hai Argueta MD, aMnuela Griffin MD, Gabriele Farias MD, Cliff Brown MD, Cammy Mendosa MD, Ryder Ocampo DO, Saud Lynne MD, Dwight Gamble MD, Marcus Gamble MD, Angela Martin CNP, Susan Ribera CNP, Ryder Mello CNP, Libby Claire, HARSHAL, Carmela Kilpatrick DESIGN DRAFTER CHIEF, Britney Choudhury DESIGN DRAFTER CHIEF, Clau Verma DESIGN DRAFTER CHIEF, Velia Castillo DESIGN DRAFTER CHIEF, CANDIE BustamanteC, Kenisha Strong, DESIGN DRAFTER CHIEF, Cathy Jimenez, DESIGN DRAFTER CHIEF, Leah Ny, DESIGN DRAFTER CHIEF, Rebecca Perales, DESIGN DRAFTER CHIEF, Yvette Calderon, DESIGN DRAFTER CHIEF,Selena Breaux, THERMAL TECHNICIAN, Kady Hoffman, DESIGN DRAFTER CHIEF, Roxanne Lo CNP, Rosy Xavier CNP [facility] IN-PATIENT SERVICE [facility] Progress Note 02/03/2025 8:54 AM Name: Fareed Correa Acct: [id number] Room: Day: 4 Admit Date: 01/30/2025 4:04 AM PCP: Evelina Davila, DO Code Status: Full Code Subjective: [...] in bed. Status post cystoscopy with bilateral retrogradepyelogram on 02/01/2025. Urology with plan for IR placement of right nephrostomy tube with antegradestent if possible. Unfortunately not likely to be done until Tuesday. No complaints. Brief History: This is a 59-year-old male with a significant past medical history of metastatic prostate cancer [facility]. He states over the past week he noticed it became increasingly more difficult to urinate to the point where he was only urinating while sleeping with accidents. Complained of suprapubic abdominal pain. [facility] found to be hyperkalemic 6.9 and Hummel catheter was placed draining [address] imaging demonstrated bilateral hydronephrosis and hydroureter with a 4 mm stone in the distal right ureter just proximal to the ureteral vesicular junction. He was transferred to [facility] ICU for evaluation. He was evaluated by urology with plan to maintain Hummel catheter for minimum 1 week due to high-volume urinary retention. Nephrology was consulted and patient was ultimately startedon hemodialysis due to hyperkalemia. He improved and [...] sulfate, ondansetron OR ondansetron, polyethylene glycol, acetaminophen ORacetaminophen, HYDROmorphone, glucose, dextrose bolus OR dextrose bolus, [...] Labs 02/02/25 0719 02/02/25 1124 02/02/25 1624 02/02/251915 POCGLU 111* 122* 131* 128* I/O (24Hr): [...] CALCIUM 8.0* 7.9* 8.5* Recent Labs 02/01/25 16202/01/25191802/02/25 0719 02/02/25 1124 02/02/25 1624 02/02/251915 POCGLU 90 213* 111* 122* 131* 128* ABG:No results found for: POCPH , PHART , PH , POCPCO2 , ZNX0MCC , PCO2 , POCPO2 , PO2ART , PO2 , POCHCO3 , ELR7OHG , HCO3 , NBEA , PBEA , BEART , BE , THGBART , THB , YWB5LQO , YKHC0SOX , Q9IZRYZR , O2SAT , FIO2 Lab Results Component [...] function. Rhys Leigh DO 02/03/2025 8:54 AM * Deepali Beal DO - 02/03/2025 8:23 AM EDT Urology Progress Note Subjective: Status post attempted [...] Deepali Beal DO PGY-5 8:23 AM 02/03/2025 * Rico France MD - 02/02/2025 10:18 AM EDT Nephrology Progress Note Patient: Fareed Correa; 59 y.o. Location: Attending: Rhys Leigh DO Admit Date: 01/30/2025 Hospital Day: 3 Subjective History: 59-year-old male with past medical history of prostate cancer with mets to the lung and bone in 2019 status post treatment with Casodex, Lupron, Taxotere, Xtandi and Zometa x 6 cycles who presented initially to [facility] due to urinary incontinence, decreased urine output and fatigue. Patient has been treated in the outpatient setting by his PCP for possible urinary tract infection, did not feel the antibiotics were helping with his symptoms. Patient was noted to have suprapubic pain inthe ED, Hummel was placed and patient put [...] CL 101 107 105 CO2 20 21 BUN 50* 36* 30* CREATININE 5.7* [...] sulfate, ondansetron OR ondansetron, polyethylene glycol, acetaminophen ORacetaminophen, HYDROmorphone, glucose, dextrose bolus OR dextrose bolus, [...] with any questions. Libby Claire APRN - [employer] [facility]. Attending Physician Statement I have discussed the care of Fareed Correa, including pertinent history and exam findings with theresident/fellow. I have reviewed the nance elements of [...] he was admitted but since then things havebeen improving. Patient is tentatively scheduled for a right nephrostomy tube placement Tuesday as per urology's note. Hummel to be left indwelling at this time. Following along. Rico France MD , MD * Deepali Beal DO - 02/02/2025 9:40 AM EDT Urology Progress Note Subjective: Status post attempted [...] is for right nephrostomy tube placement this upcomingay, 02/04/2025 N.p.o. midnight on Tuesday night in anticipation of that procedure Hold any and all blood thinners Maintain Hummel catheter for maximum decompression of urinary system, having high urinary output Monitor electrolytes for any imbalances requiring replacement Levsin as needed for bladder spasms Deepali Beal DO PGY-5 9:41 AM 02/02/2025 * Rhys Leigh DO - 02/02/2025 8:39 AM EDT Images from the original note were not included. [facility] Office: [phone] JoseR oberto Child DO, Dominic Clay DO, Harrison Arciniega [...] MD, Cliff Brown MD, Cammy Mendosa MD, Ryder Ocampo DO, Saud Lynne MD, Dwight Gamble MD, Marcus Gamble MD, Angela Martin, DESIGN DRAFTER CHIEF, Susan Ribera, DESIGN DRAFTER CHIEF, Ryder Mello, DESIGN DRAFTER CHIEF, Libby Claire, DNP, Carmela Kilpatrick, DESIGN DRAFTER CHIEF, Britney Choudhury, DESIGN DRAFTER CHIEF, Clau Verma, DESIGN DRAFTER CHIEF, Velia Castillo, DESIGN DRAFTER CHIEF, Lidia Mathews, PA-C, Kenisha Strong, DESIGN DRAFTER CHIEF, Cathy Jimenez, DESIGN DRAFTER CHIEF, Leah Ny, DESIGN DRAFTER CHIEF, Rebecca Perales, DESIGN DRAFTER CHIEF, Yvette Calderon, DESIGN DRAFTER CHIEF,Selena Breaux, THERMAL TECHNICIAN, Kady Hoffman, DESIGN DRAFTER CHIEF, Roxanne Lo, DESIGN DRAFTER CHIEF, Rosy Xavier, DESIGN DRAFTER CHIEF [facility] IN-PATIENT SERVICE [facility] Progress Note 02/02/2025 8:39 AM Name: Fareed Correa Acct: [id number] Room: IP Day: 3 Admit Date: 01/30/2025 4:04 AM PCP: Evelina Davila DO Code Status: Full Code Subjective: [...] in bed. Status post cystoscopy with bilateral retrogradepyelogram on 02/01/2025. Urology with plan for IR placement of right nephrostomy tube with antegradestent if possible. Unfortunately not likely to be done until Tuesday. Brief History: This is a 59-year-old male with a significant past medical history of metastatic prostate cancer who initially presented to [facility] for urinary retention. He states over the past week he noticed it became increasingly more difficult to urinate to the point where he was only urinating while sleeping with accidents. Complained of suprapubic abdominal pain. At [facility] facility he was found to be hyperkalemic 6.9 and Hummel catheter was placed draining [address] imaging demonstrated bilateral hydronephrosis and hydroureter with a 4 mm stone in the distal right ureter just proximal to the ureteral vesicular junction. He was transferred to [facility] ICU for evaluation. He was evaluated by urology with plan to maintain Hummel catheter for minimum 1 week due to high-volume urinary retention. Nephrology was consulted and patient was ultimately startedon hemodialysis due to hyperkalemia. He improved and [...] sulfate, ondansetron OR ondansetron, polyethylene glycol, acetaminophen ORacetaminophen, HYDROmorphone, glucose, dextrose bolus OR dextrose bolus, [...] , PHART , PH , POCPCO2 , FMO6JZC , PCO2 , POCPO2 , PO2ART , PO2 , POCHCO3 , SFO3OUL , HCO3 , NBEA , PBEA , BEART , BE , THGBART , THB , ZFZ1WRL , ZSHO1WAZ , R2DYUAZS , O2SAT , FIO2 Lab Results Component [...] function. Rhys Leigh DO 02/02/2025 8:39 AM * Rhys Leigh DO - 02/01/2025 10:54 AM EDT Images from the original note were not included. [facility] Office: [phone] Jose Roberto Child DO, Dominic Clay DO, [...] MD, Cliff Brown MD, Cammy Mendosa MD, Ryder Ocampo DO, Saud Lynne MD, Dwight Gamble MD, Marcus Gamble MD, Angela Martin CNP, Susan Ribera CNP, Ryder Mello CNP, Libby Claire, HARSHAL, Carmela Kilpatrick, DESIGN DRAFTER CHIEF, Britney Choudhury, DESIGN DRAFTER CHIEF, Clau Verma DESIGN DRAFTER CHIEF, Velia Castillo DESIGN DRAFTER CHIEF, Lidia Mathews PA-C, Kenisha Strong, DESIGN DRAFTER CHIEF, Cathy Jimenez, DESIGN DRAFTER CHIEF, Leah Ny, DESIGN DRAFTER CHIEF, Rebecca Perales, DESIGN DRAFTER CHIEF, Yvette Calderon, DESIGN DRAFTER CHIEF,Selena Breaux, THERMAL TECHNICIAN, Kady Hoffman, DESIGN DRAFTER CHIEF, Roxanne Lo, DESIGN DRAFTER CHIEF, Rosy Xavier, DESIGN DRAFTER CHIEF [facility] [facility] IN-PATIENT SERVICE [facility] Progress Note 02/01/2025 10:54 AM Name: Fareed Correa Acct: [id number] Room: Day: 2 Admit Date: 01/30/2025 4:04 AM PCP: Evelina Davila, DO Code Status: Full Code Subjective: [...] metastatic prostate cancer [facility]. He states over the past week he noticed it became increasingly more difficult to urinate to the point where he was only urinating while sleeping with accidents. Complained of suprapubic abdominal pain. At [facility] facility he was found to be hyperkalemic 6.9 and Hummel catheter was placed draining [address] imaging demonstrated bilateral hydronephrosis and hydroureter with a 4 mm stone in the distal right ureter just proximal to the ureteral vesicular junction. He was transferred to [facility] ICU for evaluation. He was evaluated by urology with plan to maintain Hummel catheter for minimum 1 week due to high-volume urinary retention. Nephrology was consulted and patient was ultimately startedon hemodialysis due to hyperkalemia. He improved and [...] sulfate, ondansetron OR ondansetron, polyethylene glycol, acetaminophen ORacetaminophen, HYDROmorphone, glucose, dextrose bolus OR dextrose bolus, [...] 1.778 m (5' 10 ) Wt 69.8 kg(153 lb 14.1 oz) SpO2 98% BMI 22.08 [...] Net -938.45 ml Labs: Hematology: Recent Labs 01/30/259 01/31/257 02/01/25 0918 WBC 12.1* 11.8* 10.6 RBC 4.05* 4.08* 3.59* HGB 9.9* 9.8* 8.8* HCT 32.1* 32.1* 28.5* MCV 79.3* 78.7* 79.4* MCH 24.4* 24.0* 24.5* MCHC 30.8 30.5 30.9 RDW 15.3* 15.2* 15.1* PLT 374 345 319 MPV 8.8 9.0 9.3 Chemistry: Recent Labs 01/30/25 04401/30/25 0559 01/30/25 1426 01/31/25 0437 02/01/25 0918 NA 141 -- 137 137 140 K 7.1* -- 4.0 3.9 4.0 CL 109* -- 98 101 107 CO2 10* -- 21 GLUCOSE 99 -- 136* 134* 108* [...] , PHART , PH , POCPCO2 , KUN9GGJ , PCO2 , POCPO2 , PO2ART , PO2 , POCHCO3 , ZZT0LYR , HCO3 , NBEA , PBEA , BEART , BE , THGBART , THB , HNU4HAT , DIPG6HSU , T0ADUMFN , O2SAT , FIO2 Lab Results Component [...] Remains on IV fluids. On Levsin for bladderspasms. Continue Flomax. Remains on cefepime. Urine culture [...] function. Rhys Leigh DO 02/01/2025 10:54 AM * Rhys Curran RN - 01/31/2025 7:29 PM EDT 1930 Per pharmacy subQ chemo med out of stock, will be restocked tomorrow. Pharmacist says not to jenaro med as not-given, leave as is in JAN. Care ongoing. * Rico France MD - 01/31/2025 10:07 AM EDT Renal Progress Note Patient : Fareed Correa; [...] x 6 cycles who presented initially to [facility] due to urinary incontinence, decreased urine output and fatigue. Patient has been treated in the outpatient setting by his PCP for possible urinary tract infection, did not feel the antibiotics were helping with his symptoms. Patient was noted to have suprapubic pain inthe ED, Hummel was placed and patient put [...] diet/TF. Avoid nephrotoxic drugs/contrast exposure. Althea Mitchell APRN-DESIGN DRAFTER CHIEF [facility] This note is created with the assistance of a speech-recognition program. While intending to generate a document that actually reflects the content of the visit, no guarantees can be provided that every mistake has been identified and corrected by editing. Attending Physician Statement I have discussed the care of Fareed Correa, including pertinent history and exam findings with theresident/fellow. I have reviewed the nance elements of [...] L. His serum creatinine is down to 5.7and his potassium has corrected to 3.9. Urology has evaluated the patient and I think he is going to require cystoscopy and right ureteric stent placement No dialysis planned for today Volume status looks better. Follow-up labs for tomorrow ordered Rico France MD , * Rhys Curran RN - 01/31/2025 6:30 AM EDT 0300 Patient arrived to unit via bed with charted belongings, report received from Maribel CHERY. Assuming care. 0630 Patient states he is missing a green [employer] track suit and phone bar helper. Asked patient if it is possible a family member took it home and he stated yes. Called MICU and spoke to charge nurse who checked patient's old room and belongings were not present. Charge nurse stated family had brought and removed several items while patient was on their unit. Care ongoing. * Maribel Martinez RN - 01/31/2025 2:15 AM EDT Patient transfer via ICU bed @ 0215. On monitor. All belongings taken. All questions answered. * yDlan Garrett MD - 01/31/2025 1:04 AM EDT Critical care team - Resident sign-out to medicine service Date and time: 01/31/2025 1:04 AM Patient's name: Fareed Correa Patient's account/billing number: [id number] Patient's Date of : 1965 Age: 59 y.o. Date of Admission: 01/30/2025 4:04 AM Length of stay during current admission: 1 Primary Care Physician: Evelina Davila DO Code Status: Full Code Mode of physician to physician communication: [] Via telephone [] In person Date and time of sign-out: 01/31/2025 1:04 AM Accepting Internal Medicine Intelligence Support Officer: Ms. Teresita Oliveira NP Accepting Medicine team: IM Team Intermed Accepting team's attending: Dr. Ocampo Patient's current ICU Bed: 3011 Patient's assigned bed on floor: 2023 [] Med-Surg Monitored [x] Step-down [] Psychiatry ICU [] Psych floor Reason for ICU admission: VALERIA with hyperkalemia ICU course summary: [facility] difficulty in voiding. Has [...] admitting resident will be following up the patientfrom now onwards on the floor. Dylan Garrett MD, MIfrah. PGY-3 IM Resident 01/31/2025, 1:04 AM * Maribel Martinez RN - 01/31/2025 12:00 AM EDT Report given to VIK Zhou. All questions answered. * Lizette Pena - 01/30/2025 4:44 PM EDT When discussing next of kin/decision makers, pt reported he has not filled out any advanced directives. He has 3 sons and a stepson (that he did not adopt). The for the stepson has been at bedside with pt throughout the day. Pt reports he doesn't know the phone numbers for any of his sons (?).RN explained that without a POA, his NOK would be his 3 sons and they would need to come to decisions that at least 2/3 of them agreed upon in the circumstance that he couldn't make decisions for himself. Pt reported he'd like to elect his neighbor, provided the neighbor's name and phone number from himcell phone. To honor this request, RN ordered spiritual care consult, but per chart it appears pt was under theimpression at that time that his step-son, whom he apparently lives with, would also be a next of kin? Pt has been intermittently seeming a bit overwhelmed, possibly confused (?) today. He is a poor historian. Early in the AM he forgot Imer's name, but could answer all orientation questions. Possiblyrelated to pain medication. Step son (Mike)'s , Imer confirms that pt lives with Mike and Imer. Pt also has a long-term partner Libia, who is Mike's mom. She reports she doesn't have phone numbers for the 3 sons. As it stands, sons Fareed II, Ming and Juan F are NOK. ADDENDUM: Asked pt again about NOK and he's again expressing interest in having his neighbor make decisions for him as DPOA. RN asked why pt changed his mind with the kaiawhina kohanga reo and pt reported he's been confused . Will need to follow-up on this at a later time when pt is more consistent and decisional. * Chapito Sneed RN - 01/30/2025 11:52 AM EDT Dialysis Post Treatment Note Vitals: 01/30/25 1150 [...] of access used=R Temp cath Length of dgaolgmwi=487 minutes Date of last dressing change =01/30/25 new line Pt tolerated 1st HD treatment well, vital stable, no issues. Report given to primary RN Lizette Guerrier * Chapito Sneed RN - 01/30/2025 8:49 AM EDT Dialysis Time Out To be done by [...] patient to ask questions. documented in this encounterBon [facility]. [facility] NotePROCEDURE: PERCUTANEOUS ANTEGRADE PYELOGRAM RIGHT PERCUTANEOUS NEPHROSTOMY TUBE [...] the procedure including risks, benefits, and alternatives. [place] protocol was followed. Patient is on intravenous [...] over the guidewire. Through the outer 6 Chilean cannula an angled catheter and Glidewire were advanced and negotiated into the ureter. Guidewire and catheter were directed into the bladder. Small amount of contrast injected verifying catheter tip in the bladder. There is a Hummel catheter in place. An Amplatz guidewire was placed through the catheter. An 8 Chilean by 24 cm double-J ureteral stent was deployed with the distal loop formed in the bladder. The proximal loop was formed in the renal pelvis. Small amount of contrast injected verifying appropriate catheter positioning and patency. An 8 Chilean nephrostomy tube was placed over the guidewire [...] stable condition. EBL: Less than 5 mL. [facility] RIS [id number] NotePROCEDURE: PERCUTANEOUS ANTEGRADE PYELOGRAM RIGHT PERCUTANEOUS NEPHROSTOMY TUBE [...] the procedure including risks, benefits, and alternatives. [place] protocol was followed. Patient is on intravenous [...] over the guidewire. Through the outer 6 Chilean cannula an angled catheter and Glidewire were advanced and negotiated into the ureter. Guidewire and catheter were directed into the bladder. Small amount of contrast injected verifying catheter tip in the bladder. There is a Hummel catheter in place. An Amplatz guidewire was placed through the catheter. An 8 Chilean by 24 cm double-J ureteral stent was deployed with the distal loop formed in the bladder. The proximal loop was formed in the renal pelvis. Small amount of contrast injected verifying appropriate catheter positioning and patency. An 8 Chilean nephrostomy tube was placed over the guidewire [...] Successful antegrade right ureteral stent placement; 8 Chilean by 24 cm double-J stent was deployed. Interpreted by: Esau Egan MD Signed by: Esau Egan MD 02/05/25 Final resultMerAtascadero State Hospital05-12-2023 NoteOhio State East Hospital05-12-2023 History of Present illness Narrative* Yris Spicer PA-C - 03/25/2023 1:00 PM EDT Orthopaedic Surgery Follow-Up Clinic Note Admission Dates: 01/24/2023-02/16/2023 Surgery/Date: 02/11/2023 - Dr. Rogers, Plastic Surgery Split thickness skin grafting left lateral thigh 17 x 6 cm Application of nondisposable wound VAC > 50 cm Surgery/Date: 02/03/2023 - Dr. Parker Wound Bed Preparation with Continued Closure of the Wound Edges to the Surrounding Muscle (CPT 10575, 39511, 75579) Placement of KCI Wound VAC Prevena, Conventional Technique, >50cm2, Durable Fire Warden (CPT 89159) Surgery/Date: 01/29/2023 - Dr. Benítez INCISION AND [...] his hip prosthesis. He was left with aGirdlestone. He required multiple soft tissue debridements and serial closures. Ultimately, a largedefect over his lateral thigh was exposed and he did undergo split thickness skin grafting with theplastic surgery team prior to discharge. S: This represents our 1st postoperative visit with Fareed and his significant other, Libia today by way of virtual visit. - Patient was discharged home, not to a SNF. - Saw Imer Amaro with plastics by virtual visit on 03/07/2023. He has excellent take of his leftlateral thigh skin graft, which is matured and adherent. The thigh incision above the skin graft isdry and intact and sutures were removed today [...] says this is unsafe and not ideal -this is mostly for pivot transfers, not full [...] are working to get patient transport to [place] to have post-op xrays completed. A/P: - RTC: Patient will notify us when he is able to obtain Xrays. We will then review with him. Virtual visits work best for him as he states he lives 4 miles out of the range that his insurance is willing to drive from home to [facility]. He notes that he does [...] severe mobility limitation. He does not have afunctioning left hip joint - nonweightbearing on left lower extremity. He is unable to use a walkeror cane to ambulate due to this. He [...] stopped and PICC pulled on 03/04/2023 per . - DVT ppx: Completed course of Lovenox after 4 weeks - Complete Iron + Vitamin C after 4 weeks post-op Months post-op: 6 weeks from skin graft, 7.5 weeks from girdlestone, 8.5 weeks from original washout Yris Spicer PA-C, [facility] Department of Orthopedic Surgery 03/25/2023 1:00 PM documented in this encounterTrinity Health System East Campus04-27-2023 Miscellaneous Notes* Telephone Encounter - Yris Spicer PA-C - 03/10/2023 4:16 PM EDT Letter written to fax to [employer]. Sent to be faxed. Yris Spicer PA-C documented in this encounterTrinity Health System East Campus04-24-2023 NoteOhio State East Hospital04-24-2023 History of Present illness Narrative* Imer Amaro APRN.DESIGN DRAFTER CHIEF - 03/07/2023 9:00 AM EDT Plastic Surgery Follow Up CC: post op HPI: Fareed Correa is here for postoperative follow up. This appointment is being conducted virtually as patient does not have transportation to attend in-person appointments at this time. Patient's [facility] Charito is also on the virtual appointment [...] Donor site was dressed with Aquacel Ag, Tegaderm,and covered with ABD pad and Coban. COPAT [...] 81 mg EC tablet Take 1 tablet bymouth twice daily for 14 days. baclofen (LIORESAL) [...] in one nostril as needed for overdose. Mayrepeat every 2 to 3 min in alternating [...] prior to visit. ALLERGIES: ALLERGIES Allergen Reactions [place] [Hydrocodone-* Unknown Patient is on oxycodone and hydromorphone outpatient PHYSICAL EXAM: Physical exam limited by the virtual nature of this appointment. Awake, alert, oriented x3. NAD. Lying in bed. Significant other, Libia and [facility] RN Charito at bedside. 98.1 temp and 132/70 per Charito. RESPIRATORY: respirations even and unlabored, no GFR CHEST:Normal chest wall exam Wound: Right thigh donor site dressing taken down today. Area is re-epithelialized and healed over. No open areas, no drainage. Periwound is intact and without erythema or swelling. Left lateral thigh skin graft with excellent take with superficial epidermal sloughing as expected.Some crusting at the superior pole. No open [...] no s/s of infection. -Leave donor site RENTAL BOATS CARETAKER. Continue to protect this area indefinitely with daily application of Aquaphor, vaseline, or cocoa butter. -Left lateral thigh sutures removed today by [facility] RN without complication. -Continue to cleanse the left lateral thigh incision line and skin graft with NS and pat dry. Applyxeroform dressing over these areas followed by ABD pad secured with tape. Do this daily for one week. After that, can keep area clean and dry and apply Aquaphor, vaseline, or cocoa butter daily. -Encouraged patient to continue to increase his protein intake to optimize nutrition for healing. -Continue follow-up with Orthopedics. RTC as needed. Imer Amaro APRN.CNP documented in this encounterTrinity Health System East Campus04-21-2023 Miscellaneous Notes* Telephone Encounter - Imer Amaro APRN.CNP - 03/04/2023 8:43 AM EDT Spoke with patient's [facility] RN Charito. Patient missed his appointments this [...] I told her to remove the coban. Wecan schedule a virtual in near future to remove the donor site dressing. Charito agreed with this plan. I cannot speak to wounds being followed by ortho. Patient needs imaging per their request. Charito states that this could be done locally at [place] or [facility] if need be. I will reach out to Colton's team to help coordinate next steps. Charito's [facility] Agency can be reached at [phone] (Speak with Lydia or Clau). documented in this encounterTrinity Health System East Campus04-21-2023 Nurse Note* Alicia Nguyễn RN - 03/04/2023 8:38 AM EDT Order received from Dr Brown to honor COPAT stop and pull picc. Call placed to home care team to advise okay to pull picc. Verbal order given to Teri. Call placed to [facility]. Verbal order given to Kristina to honor COPAT stop. Picc being pulled by nursing. documented in this encounterTrinity Health System East Campus04-20-2023 Miscellaneous Notes* Telephone Encounter - Sana Lewis - 03/03/2023 9:46 AM EDT Charito from [facility] called to inform that patient could not make yesterdays appointment dueto transportation issues. Mileage is over what transportation allows. Nurse staff would like further direction on wound care. They are also unsure on how to get patient out to see the doctor. Would like to speak with clinical staff. ph. [phone] documented in this encounterTrinity Health System East Campus04-11-2023 Miscellaneous Notes* Telephone Encounter - Yris Spicer PA-C - 02/22/2023 2:45 PM EDT PDMP website checked and validated. All prescriptions have been APPROPRIATELY filled. No suspiciousactivity was identified. 02/22/2023 by Yris Spicer PA-C Patient's request for medication is as follows: Requested Prescriptions Signed Prescriptions Disp Refills oxyCODONE IR (ROXICODONE) 5 mg immediate release tablet 28 tablet 0 Sig: Take 1 tablet by mouth every 6 hours as needed for pain for up to 7 days. for pain. Do not start before February 23, 2023. Authorizing Provider: YRIS SPICER Prescription(s) as above. Please process accordingly. Yris Spicer PA-C * Telephone Encounter - Carie Toth - 02/22/2023 1:46 PM EDT SURGERY/PROCEDURE(S): 01/31/23 Wound Bed Preparation with Continued Closure of the Wound Edges to the Surrounding Muscle Left thigh irrigation and debridement Partial closure complex wound greater than 20 cm PC from patient's to request a refill of Oxy. Pharmacy confirmed. documented in this encounterTrinity Health System East Campus04-11-2023 Miscellaneous Notes* Telephone Encounter - Rebecca Finley - 02/22/2023 11:37 AM EDT [facility] called w update. They tried to have pt go to nursing facility due to difficulty for to care for him. He refused. [facility] is reordering home care pt/ot. pt is s/p surg 02/03 closure wound, left decubitus documented in this encounterTrinity Health System East Campus04-06-2023 Miscellaneous Notes* Telephone Encounter - Tessie Colvin RN - 02/17/2023 11:13 AM EDT Spoke with [facility] agency regarding his orders. They requested to have the orders faxed to them. Sent orders to Belinda to fax. Tessie Colvin RN February 17, 2023 11:14 AM * Telephone Encounter - SHEREEN Cowart - 02/17/2023 9:40 AM EDT Charito from [facility] needs clarification of wound orders. Please call [phone] to update with the nursing refueling ramp supervisor. documented in this encounterTrinity Health System East Campus04-06-2023 NoteHNO ID: [id number] Author: Eunice De La Torre RN Service: ? Author Type: Registered Nurse Type: Nursing Progress Note Filed: 02/16/2023 10:28 PM Note Text: pt [facility]04-05-2023 Note [facility]04-05-2023 Miscellaneous Notes* Telephone Encounter - Jaimee Morales RN - 02/16/2023 10:37 AM EDT Call received from Leeann at [facility] stating they have been trying to get ahold of pt to set up shipment of his Xtandi. They have left messages on both numbers listed. Verified that theyhave the same numbers as we do. They will be calling pt one more time tomorrow and will then put medication on hold. Call placed to Libia and explained this to her. She states she will call them now to schedule delivery. Jaimee Morales RN documented in this encounterTrinity Health System East Campus04-05-2023 [facility]04-04-2023 NoteOhio State East Hospital04-04-2023 NoteOhio State [facility] Hospital04-03-2023 NoteOhio [facility]04-03-2023 Note [facility]04-03-2023 NoteOhio [facility]04-02-2023 NoteOhio [facility] Hospital04-02-2023 NoteHNO ID: [id number] Author: Interface Note Service: ? Author Type: ? Type: Progress Notes Filed: 02/13/2023 1:52 AM Note Text: Epic Scheduled Downtime: 02/13/2023 1:00:00 AM to 02/13/2023 1:46:00 [facility]04-01-2023 NoteOhio State [facility] Hospital03-31-2023 Note [facility]03-31-2023 NoteOhio [facility] Hospital03-31-2023 NoteOhio [facility]03-30-2023 [facility]Ohio [facility] 02-10-2023 NoteOhio [facility] Hospital03-29-2023 NoteOhio [facility] Hospital03-29-2023 NoteOhio [facility]03-28-2023 NoteHNO ID: [id number] Author: Aan Lewis RN Service: ? Author Type: Registered Nurse Type: Nursing Progress Note Filed: 02/08/2023 4:17 PM Note Text: Other: 1600-assumed pt care. no distress. pain meds given [facility]-28-2023 NoteOhio State East Hospital03-28-2023 Miscellaneous Notes * Telephone Encounter - Jaimee Morales RN - 02/08/2023 9:34 AM EDT Message left for Libia on her voicemail to call our office back. Jaimee Morales RN * Telephone Encounter - Jaimee Morales RN - 02/07/2023 10:06 AM EDT Images from the original note were not included. Jonah Betts MD You 3 days ago Looks [...] requesting a call back. Jaimee Morales RN * Telephone Encounter - Jaimee Morales RN - 02/04/2023 3:38 PM EDT Libia, pt's girlfriend calls stating pt has been admitted for a couple weeks to [facility]. Libia is asking Dr Betts to go through pt's chart and to give recommendations as to what options are for treatment. Libia states the doctors inpatient won't give them details or discuss options with themand tell them that it's up to his oncologist. Please advise Jaimee Morales RN documented in this encounterTrinity Health System East Campus03-28-2023 NoteOhio State East Hospital03-27-2023 NoteOhio [facility]03-27-2023 NoteOhio [facility]03-26-2023 NoteOhio [facility]03-26-2023 Note [facility]03-26-2023 NoteOhio [facility]03-25-2023 NoteOhio [facility]03-24-2023 [facility]Ohio [facility] 02-04-2023 NoteOhio [facility] Hospital03-23-2023 NoteOhio [facility]03-23-2023 NoteOhio [facility]03-23-2023 NoteOhio [facility]03-22-2023 NoteOhio [facility]03-22-2023 Note [facility]03-21-2023 NoteOhio [facility]03-21-2023 NoteOhio [facility]03-20-2023 [facility] 01-31-2023 NoteOhio [facility] Hospital03-20-2023 NoteOhio [facility]03-19-2023 NoteOhio [facility]03-19-2023 NoteOhio [facility]03-18-2023 NoteOhio [facility]03-18-2023 Note [facility]03-17-2023 NoteOhio [facility]03-17-2023 NoteOhio [facility]03-17-2023 NoteOhio [facility] 01-28-2023 NoteOhio [facility] Hospital03-16-2023 NoteOhio [facility]03-16-2023 NoteOhio [facility]03-16-2023 NoteOhio [facility]03-15-2023 NoteOhio [facility]03-15-2023 Note [facility]03-15-2023 NoteOhio [facility]03-15-2023 NoteOhio [facility]03-14-2023 Note[facility] 01-25-2023 NoteOhio [facility]03-13-2023 NoteOhio [facility]03-13-2023 NoteOhio [facility]03-13-2023 NoteOhio [facility]03-13-2023 NoteOhio [facility]03-13-2023 Note [facility]03-13-2023 NoteOhio [facility]05-16-2022 Miscellaneous Notes* Telephone Encounter - Diana Daniels - 03/29/2022 11:57 AM EDT Call placed to patient, no answer. Left message on voicemail to call back to reschedule. Diana Daniels * Telephone Encounter - Jonah Betts MD - 03/27/2022 12:46 PM EDT Please reschedule * Telephone Encounter - Diana Daniels - 03/26/2022 2:45 PM EDT Patient did not show for appointment today. Diana Daniels documented in this encounterTrinity Health [facility] Campus2022 Miscellaneous Notes* Telephone Encounter - Deanne Brown MA - 03/18/2022 2:17 PM EDT Please sign CBC for 03/26/22. Deanne Brown MA documented in this encounterTrinity Health System East Campus04-18-2022 Miscellaneous Notes* Telephone Encounter - Jonah Betts MD - 03/01/2022 8:41 AM EDT Can you schedule him to do those at [place]. Thanks documented in this encounterTrinity Health [facility] Miscellaneous Notes* Telephone Encounter - Jane Clements RN - 02/16/2022 11:04 AM EDT The following prescription(s) will be transmitted electronically to [facility] upon approval. Patient has been notified. Pending Prescriptions Disp Refills TRAZODONE 50 MG TABLET 60 tablet 0 Sig: Take 2 tablets by mouth daily at bedtime. GATITO: No MIRTAZAPINE 15 MG TABLET 30 tablet 0 Sig: Take 1 tablet by mouth daily at bedtime. 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 documented in this encounter [facility] note* Diagnosis S/P flap graft Other postprocedural status documented in this encounter [facility] note* Diagnosis Post-operative state- Primary Other postprocedural status Severe protein-calorie malnutrition (HCC) Other severe protein-calorie malnutrition documented in this encounter [facility] note* Diagnosis S/P Girdlestone procedure- Primary Other postprocedural status S/P flap graft Other postprocedural status documented in this encounter [facility] note* Diagnosis Necrotizing fasciitis (HCC)- Primary Necrotizing fasciitis documented in this encounter [facility] note* Diagnosis Acute renal failure- Primary Acute kidney failure, unspecified VALERIA (acute kidney injury) Acute kidney failure, unspecified Obstructive uropathy Urinary obstruction, unspecified Hyperkalemia Hyperpotassemia Metabolic acidosis Acidosis History of prostate cancer Personal history of malignant neoplasm of prostate Urinary retention Retention of urine, unspecified documented in this encounter [facility] noteNo assessment information available [facility] Work Phone: Evaluation note* Diagnosis Prostate cancer (HCC) Malignant neoplasm of prostate BPH with obstruction/lower urinary tract symptoms Hypertrophy of prostate with urinary obstruction and other lower urinary tract symptoms (LUTS) documented in this encounter [facility] for referral (narrative)* Diagnostic Procedure Only (Routine) - AuthorizedSpecialtyDiagnoses / ProceduresReferred By Contact Referred To ContactXR IMAGING Diagnoses Necrotizing fasciitis (HCC) Procedures XR PELVIS 1V AP RADIOLOGIC EXAMINATION PELVIS 1/2 VIEWS Gaby Parker MD [address] [place] [address] Xr Imaging Referral IDStatusReasonStart DateExpiration DateVisits RequestedVisits [id number] Auto-Generated Referral * Diagnostic Procedure Only (Routine) - AuthorizedSpecialtyDiagnoses / ProceduresReferred By ContactReferred To ContactXR IMAGING Diagnoses Necrotizing fasciitis (HCC) Procedures XR FEMUR GENERAL 2V AP/LAT LEFT RADIOLOGIC EXAMINATION FEMUR MINIMUM 2 VIEWS Gaby Parker MD [address] [place] [address] Xr Imaging Referral IDStatusReasonStart DateExpiration DateVisits RequestedVisits [id number] Auto-Generated Referral [facility] for referral (narrative)No reason for referral information availableRiverside [facility] Hospital Work Phone: Reason for visit Narrative* Auth/CertSpecialty Diagnoses / ProceduresReferred By ContactReferred To Contact Diagnoses Acute renal failure (ARF) Mickey Hubbard MD [address] [facility] [address] [place] [address] Phone: tel: fax: [facility] [address] [place] [address] Referral IDStatusReasonStjunior DateExpiration DateVisits RequestedVisits [id number] [facility] for visit Narrative* Auth/CertSpecialtyDiagnoses / ProceduresReferred By ContactReferred To Contact Diagnoses Prostate cancer (HCC) BPH with obstruction/lower urinary tract symptoms Procedures TN LITHOLAPAXY SMPL/SM <2.5 CM CYSTOSCOPY RIGHT URETEROSCOPY HOLMIUM LASER RIGHT STENT EXCHANGE CHANNEL TURP Ryder Lew Jr., MD [address] [place] [address] Phone: tel: [phone] fax: [facility] [address] [place] [address] Referral IDStatusReasonStart DateExpiration DateVisits RequestedVisits [id number] [facility] Advance Directives No Advanced Directives Records Found Date ActivatedDate InactivatedComments01/30/2025 4:39 AM02/06/2025 2:29 PMDate ActivatedDate InactivatedComments01/30/2025 4:39 AM01/30/2025 4:39 AMName RelationshipHealthcare Agent RelationshipCommunicationAlen PearsonChildPrimary Decision Maker* * TypeDate RecordedPatient RepresentativeExplanationAdvance Directive(s)02/24/2021 2:23 PMCode StatusDate ActivatedDate InactivatedCommentsFull Code02/24/2021 12:26 AM02/26/2021 10:11 PMFull Code Order Discussed With:Discussion Not Medically AppropriateCode StatusDate ActivatedDate InactivatedCommentsFull Code01/24/2023 5:29 AMFull Code Order Discussed With:PatientSurrogate Decision Maker Name: - Emily Code01/24/2023 5:22 AM01/24/2023 5:29 AMFull Code Order Discussed With:PatientSurrogate Decision Maker Name:Rosalva - mother, Libia - significant otherFull Code01/24/2023 5:18 AM01/24/2023 5:22 AMFull Code Order Discussed With:PatientSurrogate Decision Maker Name:Rosalva - Full Code 02/24/2021 12:26 AM02/26/2021 10:11 PMCode StatusDate ActivatedDate Inactivated CommentsFull Code01/24/2023 5:29 AM02/17/2023 1:15 AMCode StatusDate ActivatedDate InactivatedCommentsFull Code01/24/2023 5:29 AM02/17/2023 1:15 AMFull Code01/24/2023 5:22 AM01/24/2023 5:29 AMFull Code01/24/2023 5:18 AM01/24/2023 5:22 AMFull Code 02/24/2021 12:26 AM02/26/2021 10:11 PMDate ActivatedDate InactivatedComments 01/30/2025 4:39 AMNameRelationshipHealthcare Agent RelationshipCommunicationJohn Correa IIChildPrimary Decision MakerAlen PearsonChildPrimary Decision Maker* Juan F PearsonChildPrimary Decision Maker Summary Purpose Family History No [...] or prosecute any alcohol or drug abuse patient.[facility] CampusIn the event this information is protected by the Federal Confidentiality of Alcohol and Drug Abuse Patient Records regulations: The Federal rules restrict any use of the information to criminally investigate or prosecute any alcohol or drug abuse patient.[facility] CampusIn the event this information is protected by the Federal Confidentiality of Alcohol and Drug Abuse Patient Records regulations: The Federal rules restrict any use of the information to criminally investigate or prosecute any alcohol or drug abuse patient.[facility] CampusIn the event this information is protected by the Federal Confidentiality of Alcohol and Drug Abuse Patient Records regulations: The Federal rules restrict any use of the information to criminally investigate or prosecute any alcohol or drug abuse patient.[facility] CampusIn the event this information is protected by the Federal Confidentiality of Alcohol and Drug Abuse Patient Records regulations: The Federal rules restrict any use of the information to criminally investigate or prosecute any alcohol or drug abuse patient.[facility] CampusIn the event this information is protected by the Federal Confidentiality of Alcohol and Drug Abuse Patient Records regulations: The Federal rules restrict any use of the information to criminally investigate or prosecute any alcohol or drug abuse patient.[facility] CampusIn the event this information is protected by the Federal Confidentiality of Alcohol and Drug Abuse Patient Records regulations: The Federal rules restrict any use of the information to criminally investigate or prosecute any alcohol or drug abuse patient.[facility] CampusIn the event this information is protected by the Federal Confidentiality of Alcohol and Drug Abuse Patient Records regulations: The Federal rules restrict any use of the information to criminally investigate or prosecute any alcohol or drug abuse patient.[facility] CampusIn the event this information is protected by the Federal Confidentiality of Alcohol and Drug Abuse Patient Records regulations: The Federal rules restrict any use of the information to criminally investigate or prosecute any alcohol or drug abuse patient.[facility] CampusIn the event this information is protected by the Federal Confidentiality of Alcohol and Drug Abuse Patient Records regulations: The Federal rules restrict any use of the information to criminally investigate or prosecute any alcohol or drug abuse patient.[facility] CampusIn the event this information is protected by the Federal Confidentiality of Alcohol and Drug Abuse Patient Records regulations: The Federal rules restrict any use of the information to criminally investigate or prosecute any alcohol or drug abuse patient.[facility] CampusIn the event this information is protected by the Federal Confidentiality of Alcohol and Drug Abuse Patient Records regulations: The Federal rules restrict any use of the information to criminally investigate or prosecute any alcohol or drug abuse patient.[facility] CampusIn the event this information is protected by the Federal Confidentiality of Alcohol and Drug Abuse Patient Records regulations: The Federal rules restrict any use of the information to criminally investigate or prosecute any alcohol or drug abuse patient.[facility] CampusIn the event this information is protected by the Federal Confidentiality of Alcohol and Drug Abuse Patient Records regulations: The Federal rules restrict any use of the information to criminally investigate or prosecute any alcohol or drug abuse patient.[facility] CampusIn the event this information is protected by the Federal Confidentiality of Alcohol and Drug Abuse Patient Records regulations: The Federal rules restrict any use of the information to criminally investigate or prosecute any alcohol or drug abuse patient.[facility] CampusIn the event this information is protected by the Federal Confidentiality of Alcohol and Drug Abuse Patient Records regulations: The Federal rules restrict any use of the information to criminally investigate or prosecute any alcohol or drug abuse patient.[facility] CampusIn the event this information is protected by the Federal Confidentiality of Alcohol and Drug Abuse Patient Records regulations: The Federal rules restrict any use of the information to criminally investigate or prosecute any alcohol or drug abuse patient.[facility] CampusIn the event this information is protected by the Federal Confidentiality of Alcohol and Drug Abuse Patient Records regulations: The Federal rules restrict any use of the information to criminally investigate or prosecute any alcohol or drug abuse patient.[facility] CampusIn the event this information is protected by the Federal Confidentiality of Alcohol and Drug Abuse Patient Records regulations: The Federal rules restrict any use of the information to criminally investigate or prosecute any alcohol or drug abuse patient.[facility] CampusIn the event this information is protected by the Federal Confidentiality of Alcohol and Drug Abuse Patient Records regulations: The Federal rules restrict any use of the information to criminally investigate or prosecute any alcohol or drug abuse patient.[facility] CampusIn the event this information is protected by the Federal Confidentiality of Alcohol and Drug Abuse Patient Records regulations: The Federal rules restrict any use of the information to criminally investigate or prosecute any alcohol or drug abuse patient.[facility] CampusIn the event this information is protected by the Federal Confidentiality of Alcohol and Drug Abuse Patient Records regulations: The Federal rules restrict any use of the information to criminally investigate or prosecute any alcohol or drug abuse patient.[facility] CampusIn the event this information is protected by the Federal Confidentiality of Alcohol and Drug Abuse Patient Records regulations: The Federal rules restrict any use of the information to criminally investigate or prosecute any alcohol or drug abuse patient.[facility] Reason for Visit (unrecogniz ed section and content) ReasonOnset DateCommentsRefill Fxymgal70/04/2022ReasonCommentsLab OrdersReason CommentsNo ShowReasonCommentsRefill RequestReasonCommentsCoPat StartReason CommentsCare CoordinationquestionReasonCommentsCare CoordinationMedication updateReasonCommentsCoPat AgencyReasonCommentsPatient QuestionNeed clarification on wound care ordersReasonOnset DateCommentsRefill Roalyqb6202/22/2023Reason CommentsPatient UpdateReasonCommentsCoPat StopReasonCommentsPatient Question Charito from [facility] callingReasonCommentsPost OpReasonCommentsOrdersReasonComments Patient UpdateReasonOnset DateCommentsRefill Idzbtze5405/03/2023 Care Teams (unrecognized sec tion and content) Team MemberRelationshipSpecialtyStart DateEnd Jaimee Morales RN [address] [place] [address] [place] [address] Specialty Care CoordinatorHematology/Oncology06/25/19 Jonah Betts MD [address] [place] [address] [place] [address] PhysicianHematology/Oncology06/25/19 Maryanne Tavarez PAScott [address] [facility] [place] [address] Physician AssistantHematology/Oncology06/25/19 [facility] [address] [place] [address] ConsultingHOSPICE & PALLIATIVE MEDICINE02/03/21 Anne Tran, RN Specialty Care CoordinatorHOSPICE & PALLIATIVE MEDICINE02/03/21Team Member RelationshipSpecialtyStart DateEnd Date Jaimee Morales RN [address] [facility] [place] [address] Specialty Care CoordinatorHematology/Oncology06/25/19 Jonah Betts MD [address] [place] [address] PhysicianHematology/Oncology06/25/19 Maryanne Tavarez PA-C [address] [facility] [place] [address] Physician AssistantHematology/Oncology06/25/19 RayThompson, [address] [place] [address] ConsultingHOSPICE & PALLIATIVE MEDICINE02/03/21 Anne Tran, RN Specialty Care CoordinatorHOSPICE & PALLIATIVE MEDICINE02/03/21Team Member RelationshipSpecialtyStart DateEnd Date Jaimee Morales RN [address] [facility] [place] [address] Specialty Care CoordinatorHematology/Oncology06/25/19 Jonah Betts MD [address] [place] [address] PhysicianHematology/Oncology06/25/19 Maryanne Tavarez PA-C [address] [facility] [place] [address] Physician AssistantHematology/Oncology06/25/19 RayFloydle, DO [address] [place] [address] ConsultingHOSPICE & PALLIATIVE MEDICINE02/03/21 Anne Tran, RN Specialty Care CoordinatorHOSPICE & PALLIATIVE MEDICINE02/03/21Team Member RelationshipSpecialtyStart DateEnd Date Jaimee Morales RN [address] [facility] [place] [address] Specialty Care CoordinatorHematology/Oncology06/25/19 Jonah Betts MD [address] [facility] [place] [address] PhysicianHematology/Oncology06/25/19 Maryanne Tavarez, PAMalickC [address] [facility] [place] [address] Physician AssistantHematology/Oncology06/25/19 Thompson Bell, DO [address] [place] [address] ConsultingHOSPICE & PALLIATIVE MEDICINE02/03/21 Anne Tran, RN Specialty Care CoordinatorHOSPICE & PALLIATIVE MEDICINE02/03/21Team Member RelationshipSpecialtyStart DateEnd Date Jaimee Morales RN [address] [facility] [place] [address] Specialty Care CoordinatorHematology/Oncology06/25/19 Jnoah Betts MD [address] [facility] [place] [address] PhysicianHematology/Oncology06/25/19 Maryanne Tavarez, PA-C [address] [facility] [place] [address] Physician AssistantHematology/Oncology06/25/19 Thompson Bell, DO [address] [place] [address] ConsultingHOSPICE & PALLIATIVE MEDICINE02/03/21 Anne Tran, RN Specialty Care CoordinatorHOSPICE & PALLIATIVE MEDICINE02/03/21Team Member RelationshipSpecialtyStart DateEnd Date Jaimee Morales, RN [address] [facility] [place] [address] Specialty Care CoordinatorHematology/Oncology06/25/19 Jonah Betts MD [address] [place] [address] PhysicianHematology/Oncology06/25/19 Maryanne Tavarez PA-C [address] [facility] [place] [address] Physician AssistantHematology/Oncology06/25/19 Thompson Bell, [address] [place] [address] ConsultingHOSPICE & PALLIATIVE MEDICINE02/03/21 Anne Tran, VIK Specialty Care CoordinatorHOSPICE & PALLIATIVE MEDICINE02/03/21Team Member RelationshipSpecialtyStart DateEnd Date Jaimee Morales, RN [address] [facility] [place] [address] Specialty Care CoordinatorHematology/Oncology06/25/19 Jonah Betts MD [address] [place] [address] PhysicianHematology/Oncology06/25/19 Maryanne Tavarez PA-C [address] [facility] [place] [address] Physician AssistantHematology/Oncology06/25/19 Thompson Bell, DO [address] [place] [address] ConsultingHOSPICE & PALLIATIVE MEDICINE02/03/21 Anne Tran, VIK Specialty Care CoordinatorHOSPICE & PALLIATIVE MEDICINE02/03/21Team Member RelationshipSpecialtyStart DateEnd Date Jaimee Morales RN [address] [facility] [place] [address] Specialty Care CoordinatorHematology/Oncology06/25/19 Jonah Betts MD [address] [place] [address] PhysicianHematology/Oncology06/25/19 Maryanne Tavarez, PA-C [address] [facility] [place] [address] Physician AssistantHematology/Oncology06/25/19 Thompson Bell, DO [address] [place] [address] ConsultingHOSPICE & PALLIATIVE MEDICINE02/03/21 Anne Tran, VIK Specialty Care CoordinatorHOSPICE & PALLIATIVE MEDICINE02/03/21Team Member RelationshipSpecialtyStart DateEnd Date Jaimee Morales RN [address] [facility] [address] Specialty Care CoordinatorHematology/Oncology06/25/19 Jonah Betts MD [address] [place] [address] PhysicianHematology/Oncology06/25/19 Maryanne Tavarez, PA-C [address] [facility] [address] Physician AssistantHematology/Oncology06/25/19 Thompson Bell, DO [address] [place] [address] ConsultingHOSPICE & PALLIATIVE MEDICINE02/03/21 Anne Tran, RN Specialty Care CoordinatorHOSPICE & PALLIATIVE MEDICINE02/03/21Team Member RelationshipSpecialtyStart DateEnd Date Jaimee Morales RN [address] [facility] [place] [address] Specialty Care CoordinatorHematology/Oncology06/25/19 Jonah Betts MD [address] [place] [address] PhysicianHematology/Oncology06/25/19 Maryanne Tavarez PA-C [address] [facility] [place] [address] Physician AssistantHematology/Oncology06/25/19 Thompson Bell, DO [address] [place] [address] ConsultingHOSPICE & PALLIATIVE MEDICINE02/03/21 Anne Tran, VIK Specialty Care CoordinatorHOSPICE & PALLIATIVE MEDICINE02/03/21Team Member RelationshipSpecialtyStart DateEnd Date Jaimee Morales RN [address] [facility] [place] [address] Specialty Care CoordinatorHematology/Oncology06/25/19 Jonah Betts MD [address] [place] [address] PhysicianHematology/Oncology06/25/19 Maryanne Tavarez PA-C [address] [facility] [place] [address] Physician AssistantHematology/Oncology06/25/19 Thompson Bell, DO [address] [place] [address] ConsultingHOSPICE & PALLIATIVE MEDICINE02/03/21 Anne Tran, VIK Specialty Care CoordinatorHOSPICE & PALLIATIVE MEDICINE02/03/21Team Member RelationshipSpecialtyStart DateEnd Date Evelina Davila, DO [address] [place] [address] [id number] PCP - GeneralEmergency Medicine02/21/23Team MemberRelationshipSpecialtyStart Date End Date Jaimee Morales RN [address] [facility] [address] Specialty Care CoordinatorHematology/Oncology06/25/19 Jonah Betts MD [address] [place] [address] PhysicianHematology/Oncology06/25/19 Maryanne Tavarez, PAMalickC [address] [facility] [place] [address] Physician AssistantHematology/Oncology06/25/19 Thompson Bell, [address] [place] [address] ConsultingHOSPICE & PALLIATIVE MEDICINE02/03/21 Anne Tran, VIK Specialty Care CoordinatorHOSPICE & PALLIATIVE MEDICINE02/03/21Team Member RelationshipSpecialtyStart DateEnd Date Jaimee Morales RN [address] [facility] [address] Specialty Care CoordinatorHematology/Oncology06/25/19 Jonah Betts MD [address] [place] [address] PhysicianHematology/Oncology06/25/19 Maryanne Tavarez, PAMalickC [address] [facility] [place] [address] Physician AssistantHematology/Oncology06/25/19 Thompson Bell, DO [address] [place] [address] ConsultingHOSPICE & PALLIATIVE MEDICINE02/03/21 Anne Tran, RN Specialty Care CoordinatorHOSPICE & PALLIATIVE MEDICINE02/03/21Team Member RelationshipSpecialtyStart DateEnd Date Jaimee Morales RN [address] [facility] [address] Specialty Care CoordinatorHematology/Oncology06/25/19 Jonah Betts MD [address] [place] [address] PhysicianHematology/Oncology06/25/19 Maryanne Tavarez PA-C [address] [facility] [place] [address] Physician AssistantHematology/Oncology06/25/19 Thompson Bell, DO [address] [place] [address] ConsultingHOSPICE & PALLIATIVE MEDICINE02/03/21 Anne Tran, VIK Specialty Care CoordinatorHOSPICE & PALLIATIVE MEDICINE02/03/21Team Member RelationshipSpecialtyStart DateEnd Date Jaimee Morales RN [address] [facility] [address] Specialty Care CoordinatorHematology/Oncology06/25/19 Jonah Betts MD [address] [place] [address] PhysicianHematology/Oncology06/25/19 Maryanne Tavarez PA-C [address] [facility] [place] [address] Physician AssistantHematology/Oncology06/25/19 Thompson Bell, DO [address] [place] [address] ConsultingHOSPICE & PALLIATIVE MEDICINE02/03/21 Anne Tran, VIK Specialty Care CoordinatorHOSPICE & PALLIATIVE MEDICINE02/03/21Team Member RelationshipSpecialtyStart DateEnd Date Jaimee Morales RN [address] [facility] [address] Specialty Care CoordinatorHematology/Oncology06/25/19 Jonah Betts MD [address] [facility] [place] [address] PhysicianHematology/Oncology06/25/19 Maryanne Tavarez, PA-C [address] [facility] [place] [address] Physician AssistantHematology/Oncology06/25/19 Thompson Bell, DO [address] [place] [address] ConsultingHOSPICE & PALLIATIVE MEDICINE02/03/21 Anne Tran, VIK Specialty Care CoordinatorHOSPICE & PALLIATIVE MEDICINE02/03/21Team Member RelationshipSpecialtyStart DateEnd Date Jaimee Morales RN [address] [facility] [address] Specialty Care CoordinatorHematology/Oncology06/25/19 Jonah Betts MD [address] [place] [address] PhysicianHematology/Oncology06/25/19 Maryanne Tavarez, PA-C [address] [facility] [place] [address] Physician AssistantHematology/Oncology06/25/19 Thompson Bell, DO [address] [place] [address] ConsultingHOSPICE & PALLIATIVE MEDICINE02/03/21 Anne Tran, RN Specialty Care CoordinatorHOSPICE & PALLIATIVE MEDICINE02/03/21Team Member RelationshipSpecialtyStart DateEnd Date Jaimee Morales RN [address] [facility] [place] [address] Specialty Care CoordinatorHematology/Oncology06/25/19 Jonah Betts MD [address] [place] [address] [place] [address] PhysicianHematology/Oncology06/25/19 Maryanne Tavarez PA-C [address] [place] [address] [place] [address] Physician AssistantHematology/Oncology06/25/19 Thompson Bell [address] [place] [address] ConsultingHOSPICE & PALLIATIVE MEDICINE02/03/21 Anne Tran, VIK Specialty Care CoordinatorHOSPICE & PALLIATIVE MEDICINE02/03/21Team Member RelationshipSpecialtyStart DateEnd Date Evelina Davila DO [address] [place] [address] PCP - GeneralEmergency Medicine02/21/23 Team Status: Inactive Member Role Status Dates Santos Corona DO Attending Provider Active Start : April 05, 2025 End: April 05, 2025Team MemberRelationshipSpecialtyStart DateEnd Date Evelina Davila DO [address] [place] [id number] PCP - GeneralEmergency Medicine02/21/23 Team Status: Inactive Member Role Status Dates Benji Wilkins PA-C Attending Provider Active St art: July 05, 2025 End: July 05, 2025 Team Status: Inactive Member Role Status Dates Mike Multani MD Attending Provider Active St art: August 20, 2025 End: August 20, 2025 (unrecognized sect ion and content) No Status Records FoundNo Status Records FoundNo Status Records FoundNo Status Records FoundNo Status Records Found INFORMATION SOURCE (unrecogn ized section and content) DATE CREATED AUTHOR 02/19/2023 [facility] DATE CREATED AUTHOR AUTHOR'S ORGANIZ ATION 03/01/2023 [facility] DATE CREATED AUTHOR AUTHOR'S ORGANIZ ATION 05/10/2023 [facility] DATE CREATED AUTHOR AUTHOR'S ORGANIZ ATION 04/19/2025 [facility] DATE CREATED AUTHOR AUTHOR'S ORGANIZ ATION 08/24/2025 [facility] Ordered Prescriptions (unrec ognized section and content) PrescriptionSigDispense QuantityRefillsLast FilledStart DateEnd Date tamsulosin (FLOMAX) 0.4 MG capsule Take 1 capsule by mouth daily 30 capsule 02/07/2025 tamsulosin (FLOMAX) 0.4 MG capsule Take 1 capsule by mouth daily 30 capsule /[id number]/PrescriptionSigDispense QuantityRefillsLast FilledStart DateEnd Date ketorolac (TORADOL) 10 MG tablet Take 1 tablet by mouth every 6 hours as needed for Pain 15 tablet 04/12/2025 oxyBUTYnin (DITROPAN XL) 5 MG extended release tablet Take 1 tablet by mouth daily for 14 days 14 tablet / phenazopyridine (PYRIDIUM) 100 MG tablet Take 1 tablet by mouth 3 times daily as needed for Pain 15 tablet /02/2025 doxycycline hyclate (VIBRA-TABS) 100 MG tablet Take 1 tablet by mouth 2 times daily for 3 days 6 tablet /12/2024 Scheduled Active and Recently Administ ered Medications (unrecognized section and content) Medication Order02/04/// cefepime (MAXIPIME) 1,000 mg in sodium chloride 0.9 % 50 mL IVPB (addEASE) (COMPLETED) 1,000 mg, IntraVENous, at 12.5 mL/hr, Administer over 240 Minutes, EVERY 24 HOURS, First dose on Tue01/30/25 at 0730, For 8 doses, Use 20mm (GREEN) addEASE Adapter Prep Instructions: Attach medication vial to one 20mm (GREEN) addEASE adapter. Michael fluid bag with adapter, mix, and administer per order. * 0858 (New Bag - Provider: Katelyn Huizar RN) * 1248 (Stopped - Provider: Katelyn Huizar RN) * 0800 (New Bag - Provider: Leidy Horan) * 1309 (Stopped - Provider: Loyda Berry RN - Comment: Stopped later d/t pt being at IR.) * 0600 (New Bag - Provider: Martina Irwin, VIK) * 1000 (Stopped - Provider: Lennie Vincent RN) heparin (porcine) injection 5,000 Units 5,000 Units, SubCUTAneous, EVERY 8 HOURS SCHEDULED (3 times per day), First dose on Tue02/03/25 at 1400, Until Discontinued, On hold since Tue02/04/2025 at 0917 until manually unheld * 0603 (Given - Provider: Peggy Mejia, VIK) * 0917 (Held by provider - Provider: Rhys Leigh DO - Reason: Transfer to a Procedural area) * 1400 (Automatically Held - Provider: Rhys Leigh DO) * 2200 (Automatically Held - Provider: Rhys Leigh DO) * 0600 (Automatically Held - Provider: Rhys Leigh DO) * 1400 (Automatically Held - Provider: Rhys Leigh DO) * 2200 (Automatically Held - Provider: Rhys Leigh DO) * 0600 (Automatically Held - Provider: Rhys Leigh DO) * 1400 (Automatically Held - Provider: Rhys Leigh DO) * 2200 (Automatically Held - Provider: Rhys Leigh DO) [...] 60 minutes of last blood glucose check * 0834 (Not Given - Provider: Katelyn Huizar RN - Reason: Order parameters not met) * 1129 (Not Given - Provider: Katelyn Huizar RN - Reason: Patient not available) * 170 (Not Given - Provider: Katelyn Huizar RN - Reason: Order parameters not met) * 2042 (Not Given - Provider: Peggy Jackie, RN - Reason: Order parameters not met) * 0735 (Not Given - Provider: Alecia Coates RN - Reason: Order parameters not met - Comment: 97) * 1246 (Not Given - Provider: Loyda Berry RN - Reason: Other - Comment: Patient off unit at IR.) * 171 (Not Given - Provider: Loyda Berry RN - Reason: Order parameters not met - Comment: BG 107) * 2024 (Not Given - Provider: Martina Irwin RN - Reason: Order parameters not met - Comment: BS 106) * 0818 (Not Given - Provider: Leidy Hollins RN - Reason: Order parameters not met) * 1153 (Not Given - Provider: Lennie Vincent RN - Reason: Patient/family refused - Comment: pt being discharged) * 1700 (Due) * 2100 (Due) metoprolol tartrate (LOPRESSOR) tablet 12.5 mg 12.5 mg, Oral, 2 TIMES DAILY, First dose on Tue02/03/25 at 1000, Until Discontinued, Hold for systolic blood pressure less than 100, heart rate less than 60 * 0857 (Given - Provider: Katelyn Huizar RN) * 204 (Given - Provider: Peggy Mejia RN) * 0802 (Given - Provider: Leidy Horan) * 203 (Given - Provider: Martina Irwin RN) * 0843 (Given - Provider: Leidy Hollins RN) * 2100 (Due) nicotine (NICODERM CQ) 14 MG/24HR 1 patch 1 patch, TransDERmal, Administer over 24 Hours, DAILY, First dose on Tue01/31/25 at 0900, Apply newpatch to nonhairy, clean, dry skin on the upper body or upper outer arm. Rotate patch sites. Notifypharmacy if patient or provider prefers patch to be removed at bedtime and replaced in the morning.Hazardous Medication -- Refer to facility policy for handling and disposal. * 1115 (Not Given - Provider: Katelyn Huizar RN - Reason: Patient/family refused) * 0801 (Not Given - Provider: Leidy Horan - Reason: Patient/family refused) * 0850 (Not Given - Provider: Leidy Hollins RN - Reason: Patient/family refused) sodium chloride flush 0.9 % injection 5-40 mL 5-40 mL, IntraVENous, EVERY 12 HOURS SCHEDULED (2 times per day), First dose on Tue01/30/25 at 0900, Until Discontinued, For Line Patency: Peripheral IV = 5 mL; Midline or Central Line = 10 mL/lumen.If following IV push medication, administer flush at same rate as the IV push. Flush volume is determined by type of infusion therapy being given. For non-viscous solutions use: Peripheral IV = 5 mL Midline or Central Line = 10 mL/lumen For viscous solutions (i.e. blood components, parenteral nutrition, contrast media, or after obtaining blood sample) use: Peripheral IV = 10 mL Midline or CentralLine = 20 mL/lumen * 1115 (Not Given - Provider: Katelyn Huizar RN - Reason: IV Fluid Infusing) * 2050 (Not Given - Provider: Peggy Mejia RN - Reason: IV Fluid Infusing) * 0801 (Given - Provider: Leidy Horan) * 2040 (Not Given - Provider: Martina Irwin RN - Reason: IV Fluid Infusing) * 0855 (Not Given - Provider: Lennie Vincent RN - Reason: IV Fluid Infusing) * 2099 (Due) tamsulosin (FLOMAX) capsule 0.4 mg 0.4 mg, Oral, DAILY, First dose on Tue01/30/25 at 0900, Until Discontinued, Do not crush or break. Give 30 minutes after a full meal to limit risk of orthostatic hypotension/falls. * 0856 (Given - Provider: Katelyn Huizar RN) * 0801 (Given - Provider: Leidy Horan) * 0843 (Given - Provider: Leidy Hollins RN) Medication Order02/04/[id number]/// 0.9 % sodium chloride infusion IntraVENous, at 125 mL/hr, CONTINUOUS, Starting on Tue01/30/25 at 0500 * 1553 (Rate/Dose Change - Provider: Katelyn Huizar RN) * 0122 (New Bag - Provider: Peggy Mejia RN) * 09 (New Bag - Provider: Loyda Berry RN) * 2008 (New Bag - Provider: Martina Irwin, VIK) * 417 (New Bag - Provider: Martina Irwin, VIK) * 103 (Stopped - Provider: Lennie Vincent RN) Medication Order02/04//// 0.9 % sodium chloride infusion IntraVENous, at [...] Administer if oral route cannot be used. * 2036 (See Alternative - Provider: Martina Irwin RN) acetaminophen (TYLENOL) tablet 650 mg(Linked Group 1) 650 mg, Oral, EVERY 6 HOURS PRN, Starting on Tue01/30/25 at 0423, Until Discontinued, Pain Mild (1-3), allowed for higher pain score per patient request, Fever, For temp greater than 100.4 F (38 C), Maximum dose of acetaminophen is 4000 mg from all sources in 24 hours. * 2036 (Given - Provider: Martina Irwin RN) [...] Tue01/30/25 at 0612, Repeat blood glucose in 15minutes. If blood glucose remains LESS THAN 70 mg/dL, repeat treatment and recheck blood glucose in15 minutes x 2. If using glycemic management [...] hour of each other unless specifically ordered. * 2336 (Given - Provider: Peggy Mejia RN) fentaNYL (SUBLIMAZE) injection (COMPLETED) PRN, Starting on Tue02/04/25 at 1136, Until Tue02/04/25 at 1136, Intra-op * 1136 (Given - Provider: Lydia Joseph RN - Comment: procedural discomfort) fentaNYL (SUBLIMAZE) injection (COMPLETED) PRN, Starting on Tue02/04/25 at 1149, Until Tue02/04/25 at 1149, Intra-op * 1149 (Given - Provider: Lydia Joseph RN - Comment: proced discomfort) fentaNYL (SUBLIMAZE) injection (COMPLETED) PRN, Starting on Tue02/04/25 at 1157, Until Tue02/04/25 at 1157, Intra-op * 1157 (Given - Provider: Lydia Joseph RN - Comment: proced discomfort) fentaNYL (SUBLIMAZE) injection (COMPLETED) PRN, Starting on Tue02/05/25 at 1025, Until Tue02/05/25 at 1025, Intra-op * 1025 (Given - Provider: Lydia Joseph RN - Comment: PROCED DISCOMFOFRT) glucagon injection 1 mg 1 mg, SubCUTAneous, PRN, Starting on Tue01/30/25 at 0612, Until Discontinued, Low blood sugar, Blood glucose LESS THAN 70 mg/dL and patient NOT ALERT or NPO and does not have IV access., After administration, attempt intravenous access and start dextrose 10% at 100 mL/hr. Repeat blood glucose in 15minutes x 2 and notify provider. Reconstitute powder for injection by adding 1 mL of tool storage attendant-supplied sterile diluent or sterile water for injection [...] alert and tolerating oral. Give 4 tablets (16g)Repeat blood glucose in 15 minutes. If blood [...] at 1224, Until Tue02/04/25 at 1225, Other * 1225 (Given - Provider: Marian Urbina) iohexol (OMNIPAQUE 240) IV/PO solution 50 mL (COMPLETED) 50 mL, Other, IMG ONCE PRN, 1 dose, Starting on Tue02/05/25 at 1026, Until Tue02/05/25 at 1027, Other * 1027 (Given - Provider: Julián Newberry) lidocaine [...] 8 HOURS PRN, Starting on Tue01/30/25 at 042, Until Discontinued, Nausea, Vomiting polyethylene glycol (GLYCOLAX) packet 17 g 17 g, Oral, DAILY PRN, Starting on Tue01/30/25 at 422, Until Discontinued, Constipation, First line therapy for constipation potassium chloride 10 mEq/100 mL IVPB (Peripheral Line)(Linked Group 4) 10 mEq, IntraVENous, PRN, Starting on Tue01/30/25 at 422, Until Discontinued, at 100 mL/hr, Per IVPotassium Replacement Protocol, Use when central line is not available for replacement. K Lab Replacement Action 3.1-3.5 10 mEq IVPB x 4 doses (40 mEq Total) 2.7-3.0 10 mEq IVPB x 6 doses (60 mEq Total) less than 2.7 CALL PHYSICIAN and 10 mEq IVPB x 6 doses (60 mEq Total) Infuse at 10 mEq/hr RepeatPotassium lab 1 hour after final administration. Protocol not for use in Patients with CrCl less than 30mL/min potassium chloride 20 mEq/50 mL IVPB (Central Line)(Linked Group 4) 20 mEq, IntraVENous, PRN, Starting on Tue01/30/25 at 422, Until Discontinued, at 50 mL/hr, Per IV Potassium Replacement Protocol, Use first line when central line is available for replacement. K LabReplacement Action 3.1-3.5 20 mEq IVPB x 2 [...] mL, IntraVENous, PRN, Starting on Tue01/30/25 at 042, Until Discontinued, Line Care, After every IV [...] For viscous solutions (i.e. blood components, parenteral nutrition,contrast media, or after obtaining blood sample) use: Peripheral IV = 10 mL Midline or Central Line= 20 mL/lumen Order Group 1: acetaminophen (TYLENOL) tablet 650 [...] Tue01/30/25 at 0612, Repeat blood glucose in 15minutes. If blood glucose remains LESS THAN 70 mg/dL, repeat treatment and recheck blood glucose in15 minutes x 2. If using glycemic management system, dose as instructed per system. If blood glucose remains LESS THAN 70 mg/dL after 2 intravenous boluses start dextrose 10% at 100 mL/hour and notify provider. Group 3: ondansetron (ZOFRAN-ODT) disintegrating tablet 4 mgJump to med 4 mg, Oral, EVERY 8 HOURS PRN, Starting on Tue01/30/25 at 042, Until Discontinued, Nausea, Vomiting Or ondansetron (ZOFRAN) injection 4 mgJump to med 4 mg, IntraVENous, EVERY 6 HOURS PRN, Starting on Tue01/30/25 at 422, Until Discontinued, Nausea, Vomiting, Administer if oral route cannot be used. Group 4: potassium chloride 20 mEq/50 mL IVPB (Central Line)Jump to med 20 mEq, IntraVENous, PRN, Starting on Tue01/30/25 at 422, Until Discontinued, at 50 mL/hr, Per IV Potassium Replacement Protocol, Use first line when central line is available for replacement. K LabReplacement Action 3.1-3.5 20 mEq IVPB x 2 [...] on Tue01/30/25 at 042, Until Discontinued, at 100 mL/hr, Per IVPotassium Replacement Protocol, Use when central line is not available for replacement. K Lab Replacement Action 3.1-3.5 10 mEq IVPB x 4 doses (40 mEq Total) 2.7-3.0 10 mEq IVPB x 6 doses (60 mEq Total) less than 2.7 CALL PHYSICIAN and 10 mEq IVPB x 6 doses (60 mEq Total) Infuse at 10 mEq/hr RepeatPotassium lab 1 hour after final administration. Protocol not for use in Patients with CrCl less than 30mL/min Medication Order04/10//// sodium chloride flush 0.9 % injection 5-40 mL 5-40 mL, IntraVENous, EVERY 12 HOURS SCHEDULED (2 times per day), First dose on Tue04/12/25 at 1115, Until Discontinued, For Line Patency: Peripheral IV = 5 mL; Midline or Central Line = 10 mL/lumen.If following IV push medication, administer flush at same rate as the IV push. Flush volume is determined by type of infusion therapy being given. For non-viscous solutions use: Peripheral IV = 5 mL Midline or Central Line = 10 mL/lumen For viscous solutions (i.e. blood components, parenteral nutrition, contrast media, or after obtaining blood sample) use: Peripheral IV = 10 mL Midline or CentralLine = 20 mL/lumen, Pre-op (day of surgery) * 1115 (Due) * 2100 (Due) sodium chloride flush 0.9 % injection 5-40 mL 5-40 mL, IntraVENous, EVERY 12 HOURS SCHEDULED (2 times per day), First dose on Tue04/12/25 at 2100, Until Discontinued, For Line Patency: Peripheral IV = 5 mL; Midline or Central Line = 10 mL/lumen.If following IV push medication, administer flush at same rate as the IV push. Flush volume is determined by type of infusion therapy being given. For non-viscous solutions use: Peripheral IV = 5 mL Midline or Central Line = 10 mL/lumen For viscous solutions (i.e. blood components, parenteral nutrition, contrast media, or after obtaining blood sample) use: Peripheral IV = 10 mL Midline or CentralLine = 20 mL/lumen, PACU only * 2100 (Due) Medication Order/// 0.9 % sodium chloride infusion IntraVENous, at 125 mL/hr, CONTINUOUS, Starting on Tue04/12/25 at 1115, Pre-op (day of surgery) * 1115 (Due) lactated ringers infusion IntraVENous, at 125 mL/hr, CONTINUOUS, Starting on Tue04/12/25 at 1115, Pre-op (day of surgery) * 1124 (New Bag - Provider: Rajwinder Tyler RN) * 1132 (Paused - Provider: KENTON Ballard CRNA - Comment: Switch to gravity) * 1133 (Restarted - Provider: KENTON Ballard CRNA) * 1205 (Anesthesia Volume Adjustment - Provider: KENTON Ballard CRNA) Medication Order// 0.9 % sodium chloride infusion IntraVENous, at [...] less into rate field of order., Pre-op (dayof surgery) 0.9 % sodium chloride infusion IntraVENous, [...] doses, Starting on Tue04/12/25 at 1215, Until Discontinued,for SBP greater than 180 mmHg for 2 [...] doses, Starting on Tue04/12/25 at 1215, Until Discontinued,Pain Moderate (4-6), allowed for higher pain score per patient request, For Phase I. If Phase II oral narcotics have been administered in the last 60 minutes, do not administer IV narcotics unless specifically approved by provider., PACU only HYDROmorphone (DILAUDID) injection 0.5 mg 0.5 mg, IntraVENous, EVERY 5 MIN PRN, 2 doses, Starting on Tue04/12/25 at 1215, Until Discontinued,Pain Severe (7-10), For Phase I. If Phase II oral narcotics have been administered in the last 60 minutes, do not administer IV narcotics unless specifically approved by provider., PACU only labetalol (NORMODYNE;TRANDATE) injection 10 mg(Linked Group 1) 10 mg, IntraVENous, EVERY 15 MIN PRN, 2 doses, Starting on Tue04/12/25 at 1215, Until Discontinued,High Blood Pressure, for SBP greater than 180 mmHg for 2 consecutive measurements taken from different sites., If heart rate is 60 bpm or less hold labetalol and use hydralazine if ordered, otherwisecontact provider. Inform provider if SBP is still greater than 180 mmHg, 10 minutes after second antihypertensive dose is administered., PACU only naloxone 0.4 mg in 10 mL sodium chloride syringe IntraVENous, PRN, Opioid Reversal, Starting on Tue04/12/25 at 1215, PRN if respiratory rate is lessthan 6/min and patient is difficult to arouse [...] For viscous solutions (i.e. blood components, parenteral nutrition,contrast media, or after obtaining blood sample) use: Peripheral IV = 10 mL Midline or Central Line= 20 mL/lumen, Pre-op (day of surgery) * 1124 (Given - Provider: Rajwinder Tyler RN) sodium chloride flush 0.9 [...] For viscous solutions (i.e. blood components, parenteral nutrition,contrast media, or after obtaining blood sample) use: Peripheral IV = 10 mL Midline or Central Line= 20 mL/lumen, PACU only Medication Order04/10//// ceFAZolin 2000 mg in 20 mL SWFI IV Syringe IV syringe Starting on Tue04/12/25 at 1106, For 1 dose, Rajwinder Tyler: cabinet override Administer over 5 mins. * 1115 (Due) Order Group 1: labetalol (NORMODYNE;TRANDATE) injection 10 mgJump to med 10 mg, IntraVENous, EVERY 15 MIN PRN, 2 doses, Starting on Tue04/12/25 at 1215, Until Discontinued,High Blood Pressure, for SBP greater than 180 mmHg for 2 consecutive measurements taken from different sites., If heart rate is 60 bpm or less hold labetalol and use hydralazine if ordered, otherwisecontact provider. Inform provider if SBP is still greater than 180 mmHg, 10 minutes after second antihypertensive dose is administered., PACU only Or hydrALAZINE (APRESOLINE) injection 10 mgJump to med 10 mg, IntraVENous, EVERY 15 MIN PRN, 2 doses, Starting on Tue04/12/25 at 1215, Until Discontinued,for SBP greater than 180 mmHg for 2 [...] sectionGoals may be documented in an alternate sectionGoals may be documented in an [...] BE BASED ON THE PRIMARY CLINICAL RECORDS. [employer] provides no warranty or guarantee of the accuracy or completeness of information in this document.
--- OUTSIDE RECORDS SUMMARY | 2025-09-10 20:12 | XMS_ITS | Clinical Summary ---
Author Organization [facility] Healthcare Address [address] [place] [address] Care Team Providers Care Touch Up Worker Name Role Phone Unavailable Primary Care Provider Unavailabl e Social History Tobacco UseTypesPacks/DayYears UsedDateSmoking Tobacco: Never AssessedSex and Gender InformationValueDate RecordedSex Assigned at BirthNot on fileLegal Sex Male01/26/2023 9:34 PM EDTGender IdentityNot on fileSexual OrientationNot on file Last Filed Vital Signs Vital SignReadingTime TakenCommentsBlood Pressure--Pulse--Temperature-- Respiratory Rate--Oxygen Saturation--Inhaled Oxygen Concentration--Muekjk96 kg (183 lb)09/11/2020 12:00 PM XQFXeoboc607.8 cm (5' 10 )09/11/2020 12:00 PM EDT Body Mass Index26.261 12:00 PM EDT Plan of Treatment Not on file
--- OUTSIDE RECORDS SUMMARY | 2025-09-10 20:12 | XMS_ITS ---
Author Organization [facility] Address [address] [place] [id number] Care Team Providers Care Head Sawyer Name Role Phone Jonah Betts MD Unavailable [phone] Maryanne Tavarez PA-C Unavailable [phone] Thompson Bell DO Unavailable Anne Tran RN Unavailable Unavailable Active Problems ProblemNoted DateDiagnosed DateSevere protein-calorie ecetvfznpkll14/15/2023 Nicotine ysccxqkbye43/13/2023 Assessment & Plan (01/24/2023 5:07 AM EDT): [...] (01/24/2023 5:55 AM EDT): Assessment: Endorses MS Crystal, Dilaudid use in past (not currently taking) [...] I/O - Hummel in place, UOP adequate Fxqiidduvzul94/13/2023 Assessment & Plan (01/26/2023 1:51 PM EDT): Assessment: K of 5.8 on 01/24, s/p insulin in D10 water, no EKG changes. Problem resolved. PLAN: - Continue to monitor Assessment & Plan (01/25/2023 9:05 AM EDT): Assessment: -K of 5.8 on 01/24, s/p insulin in D10 water -no EKG changes -improved to 4.3 PLAN: -continue to monitor Necrotizing iltqlfifx80/12/2023 Assessment & Plan (01/26/2023 1:43 PM EDT): Assessment: OSH CT demonstrated Edema, swelling and foci of gas involving the left thigh intramuscular compartment, most significant along the vastus lateralis muscle. Findings suspicious for necrotizing fasciits. Transferred from [place] to [facility] for further surgical evaluation. Incision and [...] Findings suspicious for necrotizing fasciits. Transferred from [place] to [facility] for further surgical evaluation. Incision and [...] are suspicious for necrotizing fasciitis. Transferred from [place] to [facility] for further surgical evaluation Lactate 2.6 (downtrending 1.8 s/p 2L fluid resus) Received Vanco, Zosyn and Clinda PLAN: - GenSurg and Ortho consulted - Blue card OR for exploration/debridement - Continue Atbx (Vanco, Zosyn, Clinda) - VS per SICU protocol - Sepsis lactate, BCx ordered - Consider ID consult - PRN pain regimen - Continue fluid resus/mIVF Pathologic fracture of femoral neck02/24/2021reoperative hamkviabr31/13/2021 Prostate cancer metastatic to bone04/26/2019 Cancer Staging: [...] bone/skeletal and pulmonary metastases (s/p Palliative XRT 2019,??Casodex, lupron, Zometa, Taxotere x 6 cycles and [...] bone/skeletal and pulmonary metastases (s/p Palliative XRT 2019,??Casodex, lupron, Zometa, Taxotere x 6 cycles and [...] concerns about a cord lesion. Tobacco use pvuffsoc86/13/2019 Overview (04/26/2019): Long time heavy smoker. Found [...] counseling during this visit. Enlarged lymph nodes04/25/2019Bone mtrumztino23/12/2019 Current Treatment and Therapy Plans No current plan information found. Past Treatment and Therapy Plans Plan NameStart DateDiscontinue DateTreatment MedicationsDiscontinue ReasonPlan ProviderCyclesBONE MODIFYING AGENT: $ - Q28D IF CRCL IS GREATER THAN 30 ML/MIN * zoledronic iy-abdubset-3.9NaCl (ZOMETA) Jonah Bahena MD15 of 15 cycles startedPlan NameStart DateDiscontinue DateTreatment MedicationsDiscontinue ReasonPlan ProviderCyclesDOCETAXEL 75 D1 - Q21D8* DOCEtaxel iv piggyback (TaxoTERE) * pegfilgrastim (NEULASTA ONPRO) Treatment CompleteJonah Betts MD6 of 6 cycles startedPlan NameStart Date Discontinue DateTreatment MedicationsDiscontinue ReasonPlan ProviderCycles LEUPROLIDE 45 D1 - Q175* leuprolide (6 month) (ELIGARD, VABRINITY) * leuprolide (6 month) (LUPRON) Jonah Bahena MD6 of 6 cycles started
--- OUTSIDE RECORDS SUMMARY | 2025-09-10 20:12 | XMS_ITS | Clinical Summary ---
Author Organization [facility] Address [id number] [place] [address] Care Team Providers Care Development Eng Name Role Phone No Pcp, No Pcp Primary Care Provider Unavailabl e Social History Tobacco UseTypesPacks/DayYears UsedDateSmoking Tobacco: Never AssessedChildcare AnswerDate BefxrawbIithdlobsUxeuinj90/12/2019EmploymentAnswerDate Recorded EkqddflpmpIitjkfo81/12/2019Purpose - LifeAnswerDate RecordedPurpose and direction in aucaFiitghk07/11/2021ex and Gender InformationValueDate Recorded Sex Assigned at BirthNot on fileLegal VwpBlpv9706/19/2015 11:24 AM EDTGender IdentityNot on fileSexual OrientationNot on file Plan of Treatment Health MaintenanceDue DateLast DoneCommentsDepression Mmgjtjtza87/22/1975Tobacco Mtcouhsrc40/22/1975Adult BMI Idiymwrrb92/22/1981DTaP,Tdap and Td Vaccines (1 - Tdap)1982Zoster (Shingles) Vaccine (1 of 2)2013Influenza Vaccine 07/15/2025 Medical Devices Not on file Insurance Care Teams Team MemberRelationshipSpecialtyStart DateEnd Date No Pcp, [place] [id number] [facility]itz[facility]
--- OUTSIDE RECORDS SUMMARY | 2025-09-10 20:12 | XMS_ITS | Clinical Summary ---
Author Organization [facility] Address [address] [facility], [address] [place] [address] Care Team Providers Care A&P Technician Name Role Phone German So Primary Care Provider Allergies Active AllergyReactionsCriticalityNoted DateCommentsHydrocodone-Acetaminophen 01/30/2025 Medications MedicationSigDispense QuantityRefillsLast FilledStart DateEnd DateStatus tamsulosin (FLOMAX) 0.4 MG capsule Take 1 capsule by mouth daily 30 capsule 5Active Darolutamide (NUBEQA) 300 MG TABS Indications:Prostate cancer metastatic to bone (HCC)Take 600 mg by mouth in the morning and at bedtime Take with food. 120 tablet 5Active relugolix (ORGOVYX) 120 MG chemo tablet Indications:Prostate cancer metastatic to bone (HCC)Take 1 tablet by mouth daily 30 tablet 5Active oxyBUTYnin (DITROPAN XL) 5 MG extended release tablet Take 1 tablet by mouth daily for 14 days 14 tablet 5Active ketorolac (TORADOL) 10 MG tablet Take 1 tablet by mouth every 6 hours as needed for Pain 15 tablet 5Active Active Problems ProblemNoted DateDiagnosed DateProstate xvytql8703/04/2025PH with obstruction/lower urinary tract ytmtugid85/21/2025Acute renal jpejsfr0401/30/2025 VALERIA (acute kidney injury)01/30/2025Obstructive ppfjlwog32/19/2025Hyperkalemia 01/30/2025Metabolic wxeyzhrt70/19/2025History of prostate onmmkx0501/30/2025 Urinary rnlgicbkh00/19/2025 Social History Tobacco UseTypesPacks/DayYears UsedDateSmoking Tobacco: Every DayCigarettes Smokeless Tobacco: Former Tobacco Cessation:Ready to Q uit: Not Asked; Counseling Given: Not Answered Alcohol UseStandard Drinks/WeekCommentsNot Currently0 (1 standard drink = 0.6 oz pure alcohol)AUDIT-CAnswerDate RecordedQ1: How often do you have a drink containing alcohol?Never01/30/2025Q2: How many drinks containing alcohol do you have on a typical day when you are drinking?Patient does not drink01/30/2025Q3: How often do you have six or more drinks on one occasion?Less than monthly 01/30/2025Interpersonal Safety Domain Source: IP Abuse ScreeningAnswerDate RecordedPhysical hsibwFezmbu18/30/2025Verbal meufaGedvvk88/30/2025Emotional voysuJcnrsn76/30/2025Financial extpqTpzdoz59/30/2025Sexual izrkpYklggz66/30/2025 Sex and Gender InformationValueDate RecordedSex Assigned at PraawGbks02/03/2025 7:05 AM EDTLegal UlpYbvh7402/21/2023 12:16 PM EDTGender IdentityNot on fileSexual OrientationNot on file Last Filed Vital Signs Vital SignReadingTime TakenCommentsBlood Vmmwslvl235/98004/12/2025 1:30 PM EDT Cnskv5404/30/2025 1:15 PM WZKNyxbedoybcb19.5 ??C (97.7 ??F)04/12/2025 12:24 PM EDTRespiratory Jdmb638204/12/2025 1:15 PM EDTOxygen Wahlmarmeq321%04/12/2025 1:30 PM EDTInhaled Oxygen Concentration--Fdmlca68.5 kg (155 lb 6.4 oz)04/12/2025 11:16 AM SFRRfwjnq877.5 cm (5' 9.5 )04/12/2025 11:16 AM EDTBody Mass Index22.62 04/12/2025 11:16 AM EDT Plan of Treatment DateTypeDepartmentCare Team (Latest Contact Info)Wwckmlcjzgh53/12/2025 3:15 PM ESTOffice Visit [address] [place] [phone] Valente Braxton Jr., MD [address] [place], [place] [id number] f/u sched. w/ Libia - girlfriendHealth MaintenanceDue DateLast DoneComments COVID-19 Vaccine (#1)1968Depression Cpeiaa2105/05/1975HIV bzzxhg1405/05/1978 DTaP/Tdap/Td vaccine (1 - Tdap)1982Pneumococcal 50+ years Vaccine (1 of 2 - PCV)1982Shingles vaccine (1 of 2)05/05/19824297Fhslcq67/22/2003Colonoscopy 2008Colorectal Cancer Fjlshv5805/05/2008FIT/FOBT: Average risk2008 Fecal-DNA (Cologuard): Average risk2008Sigmoidoscopy/CT colonography 2008Respiratory Syncytial Virus (RSV) or age 60 yrs+ (1 - Risk 60-74 years 1-dose series)2023nnual Wellness Visit (Medicare)01/30/2025 Flu vaccine (#1)06/14/2025Prostate Specific Antigen (PSA) Screening or Fczprndojo17GFR test (Diabetes, CKD 3-4, OR last GFR 15-59) , 02/05/2025, 02/04/2025, Additional history existsHepatitis C xlzuebAwigtlwri03/19/2025Hepatitis A vaccineAged OutNo longer eligible based on patient's age to complete this topicHepatitis B vaccineAged OutNo longer eligible based on patient's age to complete this topicHib vaccineAged OutNo longer eligible based on patient's age to complete this topicMeningococcal (ACWY) vaccineAged OutNo longer eligible based on patient's age to complete this topicMeningococcal B vaccineAged OutNo longer eligible based on patient's age to complete this topicPolio vaccineAged OutNo longer eligible based on patient's age to complete this topic Medical Devices ImplantedTypeAreaManufacturerDevice IdentifierShelf Expiration DateModel / Serial / LotStent:Urological-02/04/2025 Implanted:Qty: 1 on 02/04/2025 by Esau Egan, MDStent:UrologicalRight: Ureter Procedures Procedure NamePriorityDate/TimeAssociated DiagnosisCommentsBASIC METABOLIC PANEL Afcnmgc1502/06/2025 6:53 AM EDT PSA, NNTHFAHYWIZudogiz94/19/2025 2:26 PM EDT HEPATITIS C SHGVXLGXOfrohpu84/19/2025 8:45 AM EDT from Last 3 Months or Most Recently Relevant to Health Maintenance Results * (ABNORMAL) Basic Metabolic Panel (02/06/2025 6:53 AM EDT)ComponentValueRef RangeTest MethodAnalysis TimePerformed AtPathologist WfwruzrpfElroft407557 - 145 mmol/L02/06/2025 6:53 AM EDTMERCY LABORATORIESPotassium5.03.7 - 5.3 mmol/L 02/06/2025 6:53 AM EDTMERCY VYEQOYKAWMGWEciujelf21929 - 107 mmol/L02/06/2025 6:53 AM EDTMERCY TABHBCANLIWWUB70346 - 31 mmol/L02/06/2025 6:53 AM EDTMERCY LABORATORIESAnion Cei701 - 16 mmol/L02/06/2025 6:53 AM EDTMERCY LABORATORIES Tjhfjzw0182 - 99 mg/dL02/06/2025 6:53 AM EDTMERCY LEWEJCQULBDFCJC92(H)8 - 23 mg/dL02/06/2025 6:53 AM EDTMERCY LABORATORIESCreatinine1.8(H)0.7 - 1.2 mg/dL 02/06/2025 6:53 AM EDTMERCY LABORATORIESEst, Glom Filt Rate42(L)>60 mL/min/1.62j75402/06/2025 6:53 AM EDTMERCY LABORATORIESComment: ? These results are not intended for use in patients <18 years of age. ? eGFR results are calculated without a race factor using the 2020 CKD-EPI equation. Careful clinical correlation is recommended, particularly when comparing to results calculated using previous equations. The CKD-EPI equation is less accurate in patients with extremes of muscle mass, extra-renal metabolism of creatine, excessive creatine ingestion, or following therapy that affects renal tubular secretion. Calcium8.4(L)8.6 - 10.4 mg/dL02/06/2025 6:53 AM EDTMERCY LABORATORIESSpecimen (Source)Anatomical Location / LateralityCollection Method / VolumeCollection TimeReceived TimeBLOOD SPECIMEN / Yfrzvvw7702/06/2025 6:53 AM EDT02/06/2025 7:22 AM EDT Narrative Authorizing ProviderResult TypeResult StatusPantera Blackwell MDCHEMISTRY ORDERABLESFinal ResultPerforming OrganizationAddressCity/State/ZIP CodePhone Number [facility] [address] [place] [address], [facility] [phone] * (ABNORMAL) PSA, Diagnostic (01/30/2025 2:26 PM EDT)ComponentValueRef RangeTest MethodAnalysis TimePerformed AtPathologist ByhspnoxjDXO709.00(H)0.00 - 4.00 ng/mL01/30/2025 2:26 PM EDTMERCY LABORATORIESComment: The Hoa ECLIA assay is used. ??Results obtained with different assay methods cannot be used interchangeably. Specimen (Source)Anatomical Location / LateralityCollection Method / Volume Collection TimeReceived Time01/30/2025 2:26 PM EDT01/30/2025 2:39 PM EDT Narrative Authorizing ProviderResult TypeResult StatusRenato Bullard MDCHEMISTRY ORDERABLES Final ResultPerforming OrganizationAddressCity/State/ZIP CodePhone Number [facility] [address] [place] [address] * Hepatitis C Antibody (01/30/2025 8:45 AM EDT)ComponentValueRef RangeTest MethodAnalysis TimePerformed AtPathologist SignatureHepatitis C AbNONREACTIVE NZWIZNJJAJH80/19/2025 8:45 AM EDTMERCY LABORATORIESComment: ? The hepatitis C procedure used in our laboratory is a Chemiluminescent test specific for three recombinant HCV antigens. ??A negative anti-HCV result indicates that the antibodies to hepatitis C virus are not present at this time. Individuals with reactive anti-HCV should be considered infected and infectious until proven otherwise. ??Confirmation of all equivocal or reactive results is recommended by ordering HCV RNA by PCR. Specimen (Source)Anatomical Location / LateralityCollection Method / Volume Collection TimeReceived TimeBloodBLOOD SPECIMEN / Yfpxduy5601/30/2025 8:45 AM EDT 01/30/2025 8:50 AM EDT Narrative Authorizing ProviderResult TypeResult StatusBistanislaw France MDIMMUNOLOGY ORDERABLESFinal ResultPerforming OrganizationAddressCity/State/ZIP CodePhone Number [place] [id number] [place] [phone] [phone] from Last 3 Months or Most Recently Relevant to Health Maintenance Insurance Advance Directives * Full Code (Latest Code Status on File) Date ActivatedDate InactivatedComments01/30/2025 4:39 AM02/06/2025 2:29 PM * Full Code Date ActivatedDate InactivatedComments01/30/2025 4:39 AM01/30/2025 4:39 AM NameRelationshipHealthcare Agent RelationshipCommunicationAlen Rohini Primary Decision Maker* * Care Teams Team MemberRelationshipSpecialtyStart DateEnd Date German So DO [address] [place] [address] PCP - GeneralEmergency Medicine02/21/23
[2025-09-10 20:31] LABS: Hematocrit 26.4 % (42.0-54.0); Hemoglobin 8.5 g/dL (14.0-18.0); Immature Granulocytes Abs Auto 0.05 10^3/uL (0.00-0.03); Immature Granulocytes Pct Auto 0.4 % (0.0-0.5); Lymphocytes Absolute Auto 1.6 10^3/uL (1.2-3.8); Mean Corpuscular HGB Conc 32.2 g/dL (29.9-35.2); Mean Corpuscular Hemoglobin 25.7 pg (25.9-34.0); Mean Corpuscular Volume 79.8 fL (80.0-94.0); Platelet Count 459 10^3/uL (150-450); Red Blood Count 3.31 10^6/uL (4.70-6.10); White Blood Count 12.5 10^3/uL (4.0-11.0)
--- NOTE | 2025-09-10 20:36 | ED.GENADUL1 ---
HPI HPI - General Adult General Chief complaint: Abdominal Pain Stated complaint: BLOOD COMING OUT OF RECTUM Time Seen by Provider: 09/10/25 19:41 Source: patient Mode of arrival: walk-in Limitations: no limitations History of Present Illness HPI narrative: Patient is a 60-year-old male, history significant for prostate/lung cancer not currently undergoing treatment, presenting to the emergency department for evaluation of right red blood per rectum. Patient states that just prior to arrival he had a normal bowel movement with formed, brown stool. However, after his bowel movement, he started having bright red blood per rectum. He has never had symptoms like this in the past. He denies history of hemorrhoids, diverticulosis, or any other abdominal pathologies. He has not vomited today, but states he had coffee-ground like vomitus over the last 2 days. He denies history of liver disease/cirrhosis. He denies history of alcohol use. He states he has some mild discomfort in the left lower quadrant of his abdomen, but this is improved since his arrival to the ED. He denies any chest pain or shortness of breath. No fevers or chills. Denies being on chronic NSAIDs. Related Data Home Medications ?Medication ?Instructions ?Recorded ?Confirmed oxybutynin chloride 5 mg 5 mg PO 08/20/25 tablet,extended release 24 hr Allergies Allergy/AdvReac Type Severity Reaction Status Date / Time acetaminophen (From [facility]) Allergy Nausea Verified 09/10/25 19:45 hydrocodone (From [facility]) Allergy Nausea Verified 09/10/25 19:45 Opioid HPI Opioid Management Most Recent Opioid Data: Last Pain Scale 7 Today, 19:55 Review of Systems ROS Status of ROS 10 or more systems reviewed and unremarkable except as noted in history and below PFSH PFSH Social History Little interest or pleasure in doing things: not at all Feeling down, depressed, or hopeless: not at all Exam Narrative Exam Narrative: CONSTITUTIONAL: no acute distress, nontoxic, answering questions and following commands appropriately SKIN: Was warm and slightly pale. EYES: No conjunctival pallor. EARS, NOSE, THROAT: Moist oral mucosa. RESPIRATORY: Clear to auscultation bilaterally, no wheezes, crackles, or stridor, no use of accessory muscles CARDIOVASCULAR: Normal rate and regular rhythm. There is no S3, S4, murmur, rub. GASTROINTESTINAL: Patient's abdomen is firm throughout. He is mildly tender to palpation in the left lower quadrant. No rebound tenderness or guarding. On rectal examination performed with a nurse shoe shanker there is maroon-colored stool surrounding the rectum. There is no evidence of external hemorrhoids or anal fissures. CARY demonstrated an enlarged, firm prostate. No palpable internal hemorrhoids or masses. MUSCULOSKELETAL: No peripheral edema. NEUROLOGIC: Patient is awake and alert. Facies were symmetrical. Constitutional Vital Signs, click to edit/add: Last Vital Signs Temp 98.0 F 09/10/25 21:24 Pulse 86 09/10/25 21:24 Resp 17 09/10/25 21:24 BP 172/105 H 09/10/25 21:24 Pulse Ox 100 09/10/25 21:24 Course Vital Signs Vital signs: Vital Signs Temperature 97.7 F 09/10/25 19:40 Pulse Rate 110 H 09/10/25 19:40 Respiratory Rate 14 09/10/25 19:40 Blood Pressure 180/112 H 09/10/25 19:40 Pulse Oximetry 100 09/10/25 19:40 Temperature 98.0 F 09/10/25 21:24 Pulse Rate 86 09/10/25 21:24 Respiratory Rate 17 09/10/25 21:24 Blood Pressure 172/105 H 09/10/25 21:24 Pulse Oximetry 100 09/10/25 21:24 Medical Decision Making MDM Narrative Medical decision making narrative: Patient is a 60-year-old male, history significant for prostate cancer/colon cancer, presenting to the emergency department with a 3-day history of intermittent episodes of coffee-ground emesis and bright red blood per rectum. Patient's last round of chemotherapy/cancer treatment was over 2 years ago and is not currently being treated. Patient's vital signs on arrival were significant for mild tachycardia with a heart rate of 110. He is mildly hypertensive. He is afebrile. Examination as noted above. POC fecal occult blood test was positive. Differential diagnosis includes, but not limited to, GI bleed from etiologies such as diverticulosis, internal hemorrhoids, AVM, peptic ulcer disease, malignancy, or esophageal/gastric varices. IV was established and laboratory studies were obtained. Patient has a history of CKD IV with a GFR of 15, therefore he has at high risk for contrast-induced nephropathy. CT w/o of the abdomen/pelvis was ordered. He was given 1 L bolus normal saline and 80 mg IV Protonix. Laboratory studies were significant for mild leukocytosis. He is anemic with a hemoglobin of 8.5, however this is approximately at his baseline. He has a thrombocytosis with a platelet count of 459. Normal coagulation profile. No transaminitis or hyperbilirubinemia. No significant electrolyte derangement. He has evidence of CKD stage IV with a GFR of 15 and a creatinine of 4, BUN 57. This is approximately his baseline compared to laboratory studies from earlier this month. CT abdomen/pelvis independently reviewed and interpreted by myself and radiology demonstrated colitis versus diverticulitis. Distended bladder with bilateral hydronephrosis. At this time, the patient was empirically treated with IV ciprofloxacin and IV Flagyl for empiric treatment of diverticulitis. Hummel catheter was placed for acute urinary retention. He was given 4 mg IV morphine as he started complaining of abdominal pain. Patient has an Mans[place] Score of 25 and [place] Bleeding Scale of 12. He is high risk and will require hospitalization for GI bleed and treatment of suspected diverticulitis. I did discuss the patient with on-call ethics officer, Dr. Munguia, who agreed with IV Protonix, IV Cipro, and IV Flagyl. Since the patient is hemodynamically stable, and there is CT evidence of colitis versus diverticulitis, she does not recommend urgent upper endoscopy/colonoscopy at this time. I discussed the patient with our hospitalist, Dr. Oleary, who recommended transfer to [facility]. I discussed the patient with hospitalist at [facility], Dr. Selby, who accepted the patient to his service. At the time of transfer, patient remains hemodynamically stable. He has not had an episode of vomiting/diarrhea/GI bleeding while here in the ED. FINAL IMPRESSION: #Acute GI bleed #Acute diverticulitis #Acute bladder outlet obstruction with urinary retention #History of CKD stage IV #History of prostate cancer DISPOSITION: Transferred to [facility] CONDITION: Fair Medical Records Medical records reviewed: Yes I reviewed the patient's medical records Lab Data Lab results reviewed: Yes I reviewed the patient's lab results Labs: Lab Results 09/10/25 09/10/25 Range/Units 20:07 20:20 WBC 12.5 H (4.0-11.0) 10^3/uL RBC 3.31 L (4.70-6.10) 10^6/uL Hgb 8.5 L (14.0-18.0) g/dL Hct 26.4 L (42.0-54.0) % MCV 79.8 L (80.0-94.0) fL MCH 25.7 L (25.9-34.0) pg MCHC 32.2 (29.9-35.2) g/dL RDW 15.2 H (11.0-15.0) % Plt Count 459 H (150-450) 10^3/uL MPV 9.7 (9.5-13.5) fL Neut % (Auto) 75.9 H (43.0-75.0) % Lymph % (Auto) 13.2 L (20.5-60.0) % Gooding % (Auto) 6.3 (1.7-12.0) % Eos % (Auto) 2.0 (0.9-7.0) % Baso % (Auto) 2.2 H (0.2-2.0) % Neut # (Auto) 9.5 H (1.4-6.5) 10^3/uL Lymph # (Auto) 1.6 (1.2-3.8) 10^3/uL Gooding # (Auto) 0.8 (0.3-0.8) 10^3/uL Eos # (Auto) 0.3 (0.0-0.7) 10^3/uL Baso # (Auto) 0.3 H (0.0-0.1) 10^3/uL Abs Immat Gran (auto) 0.05 H (0.00-0.03) 10^3/uL Imm/Tot Granulo (auto) 0.4 (0.0-0.5) % PT 10.8 (9.0-11.6) sec INR 1.02 APTT 22.7 (22.3-36.2) sec Sodium 136 (136-145) mmol/L Potassium 4.9 (3.5-5.1) mmol/L Chloride 105 (98-107) mmol/L Carbon Dioxide 18.6 L (21.0-32.0) mmol/L Anion Gap 17.3 BUN 57.0 H (7.0-18.0) mg/dL Creatinine 4.01 H (0.70-1.30) mg/dL Est GFR ( Amer) 19 L (>=60 mL/min/1.73m^2) Est GFR (Non-Af Amer) 15 L (>=60 mL/min/1.73m^2) BUN/Creatinine Ratio 14.2 Glucose 104 (74-106) mg/dL Calcium 8.6 (8.5-10.1) mg/dL Total Bilirubin 0.5 (0.2-1.0) mg/dL AST 10 L (15-37) U/L ALT 13 L (16-63) U/L Alkaline Phosphatase 93 (46-116) U/L Total Protein 7.2 (6.4-8.2) g/dL Albumin 3.0 L (3.4-5.0) g/dL Globulin 4.2 g/dL Albumin/Globulin Ratio 0.7 Stool Occult Blood Positive A Blood Type A Positive Antibody Screen Negative Imaging Data CT scan - abdomen: Attestation: I personally reviewed and interpreted this imaging study as follows: Radiologist's impression: ITS Impressions Abdomen/Pelvis CT 09/10/25 21:07 IMPRESSION: Distal colonic air-fluid levels and surrounding haziness noted may raise possibility for colitis versus diverticulitis.. Nonspecific gastric air-fluid level noted. Severe hydroureteronephrosis with bladder distention worrisome for severe bladder outlet obstruction. Question this could be a source of the reported elevated creatinine. Impression dictated by: Alex Faulkner M.D. 09/10/2025 9:40 PM Dictation Location: [place] [address] Electronically authenticated by: [id number] Y Date: 09/10/2025 21:40 Discharge Plan Discharge Chief Complaint: Abdominal Pain Clinical Impression: Diverticulitis, Bladder outlet obstruction, GI (gastrointestinal bleed), CKD (chronic kidney disease) stage 4, GFR 15-29 ml/min, Prostate cancer Patient Disposition: [facility] Time of Disposition Decision: 22:28 Discharge Location: [facility] Condition: Fair Mode of Transportation: Private Vehicle
[2025-09-10 20:49] LABS: Alanine Aminotransferase 13 U/L (16-63); Albumin Globulin Ratio 0.7; Albumin Level 3.0 g/dL (3.4-5.0); Alkaline Phosphatase 93 U/L (46-116); Anion Gap 17.3; Aspartate Amino Transferase 10 U/L (15-37); Blood Urea Nitrogen 57.0 mg/dL (7.0-18.0); Calcium 8.6 mg/dL (8.5-10.1); Carbon Dioxide 18.6 mmol/L (21.0-32.0); Chloride 105 mmol/L (98-107); Estimated GFR (African America 19 (>=60 mL/min/1.73m^2); Estimated GFR (Non-African Ame 15 (>=60 mL/min/1.73m^2); Globulin 4.2 g/dL; Glucose 104 mg/dL (74-106); INR 1.02; Partial Thromboplastin Time 22.7 sec (22.3-36.2); Potassium 4.9 mmol/L (3.5-5.1); Prothrombin Time 10.8 sec (9.0-11.6); Sodium 136 mmol/L (136-145); Total Protein 7.2 g/dL (6.4-8.2)
[2025-09-10] MEDS: 0.9 % SODIUM CHLORIDE 1,000 ML 1000 ML IV (20:49)
[2025-09-10] MEDS: PANTOPRAZOLE SODIUM 40 MG VIAL 80 MG IV (20:50)
--- NOTE | 2025-09-10 21:07 | CT_ITS ---
The [address] [address] Patient Name: ALLEN KEARNS MRN: [id number] date: 1965 Sex: M Assigned Patient Location: ER Current Patient Location: ER Accession/Order Number: [id number] Exam Date: 09/10/2025 21:17 Report Date: 09/10/2025 21:40 At the request of: ESTHER SOLIMAN DO Procedure: CT abdomen pelvis wo con CT ABDOMEN AND PELVIS WITHOUT INTRAVENOUS CONTRAST: CLINICAL HISTORY: GIB, history of prostate ca COMPARISON: CT abdomen pelvis 01/30/2025 TECHNIQUE: Spiral images were obtained through the abdomen and pelvis without intravenous contrast. This CT exam was performed using one or more following dose reduction techniques: Automated exposure control, adjustment of the mA and/or kV according to patient size, or use of iterative reconstruction technique. FINDINGS: Lung Bases: [Hypoventilatory changes.] Organs:Moderate to severe hydroureteronephrosis involving the kidneys and ureters possibly related to bladder outlet obstruction.[. Liver, spleen, adrenals, pancreas otherwise unremarkable. Gallbladder is contracted. GI: Mild to moderate nonspecific gastric air-fluid levels. No definite gastric wall thickening. Moderate to moderate retained stool throughout the colon. There are distal colonic air-fluid levels noted which are nonspecific could raise possibility for diarrhea illness versus colitis[. Distal colonic diverticulosis noted. There is mild fascial stranding along the lateral conal fascial and descending colon noted with mild stranding haziness may raise possibility for allowing diverticulitis. Appendix unremarkable. Pelvis:[Suspect a bladder stone. Otherwise moderate bladder distention. No definite wall thickening. Prostate 3.9 cm in size. Peritoneum/Retroperitoneum:Mild to moderate plaque involving the nonaneurysmal aorta. Scattered periaortic lymph nodes noted.[ Abd wall/Bones:Left hip deformity perhaps related to prior surgery or prior traumatic injury. 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 CT/CT abdomen pelvis wo con IMPRESSION: Distal colonic air-fluid levels and surrounding haziness noted may raise possibility for colitis versus diverticulitis.. Nonspecific gastric air-fluid level noted. Severe hydroureteronephrosis with bladder distention worrisome for severe bladder outlet obstruction. Question this could be a source of the reported elevated creatinine. Impression dictated by: Alex Faulkner M.D. 09/10/2025 9:40 PM Dictation Location: [place] [address] Electronically authenticated by: [id number] Y Date: 09/10/2025 21:40
--- NOTE | 2025-09-10 22:13 | PC.NURSE ---
this patient awake and alert sitting upright talking on his cell phone. i asked this patient if he has had morphine pain medication before? this patient replied yes then I asked this patient did you ok with this pain medication morphine, this patient replied ok
[2025-09-10] MEDS: MORPHINE SULFATE 4 MG/ML VIAL IV (22:17)
[2025-09-10] MEDS: METRONIDAZOLE/SODIUM CHLORIDE 500 MG/100 ML PREMIX 100 MG IV (22:17)
[2025-09-10] MEDS: CIPROFLOXACIN IN 5 % DEXTROSE 400 MG/200 ML PREMIX 200 MG IV (23:20)
[2025-09-11] VITALS: O2SAT 99
[2025-09-11 00:01] VITALS: BP 137/96; O2SAT 99
--- NOTE | 2025-09-11 00:26 | PC.NURSE ---
this patient awake and alert sitting upright on the bed. this patient voices no concerns, needs and shows no signs of distress. this patient's girlfriend took all of this patient belongings except eye glasses(on the patient)and wrist watch( on the patient's left wrist) patient report given to ems crew
== END 2025-09-11 00:25 | disposition short-term general hospital (02) ==
PROVIDERS: Emergency Provider Student in an Organized Health Care Education/Training Program
DX: K57.32 Diverticulitis of large intestine without perforation or abscess without bleeding (principal); C61 Malignant neoplasm of prostate; R10.32 Left lower quadrant pain; D64.9 Anemia, unspecified; D75.839 Thrombocytosis, unspecified; N18.4 Chronic kidney disease, stage 4 (severe); R33.9 Retention of urine, unspecified; N13.30 Unspecified hydronephrosis; N32.0 Bladder-neck obstruction; C34.90 Malignant neoplasm of unspecified part of unspecified bronchus or lung
CPT/HCPCS: 36415; 74176; 80053; 85025; 85610; 85730; 86850; 86900; 86901; 96361; 96365; 96367; 96375; 99285; G0328; J0744; J1836; J2270